=== PATIENT | female | born 1955 | race African-American/Black ===

== ENCOUNTER 2018-06-08 15:05 | Observation (INO) | payer MEDICAID ==
--- OUTSIDE RECORDS SUMMARY | 2018-06-08 15:09 | XMS REPORT ---
:1955 [facility] [address] [place] [address] Care Team Providers Name Role Phone ANDRES RITTER Unavailable Unavailable TARAPASADE, CARSON Unavailable Unavailable KOSANABEL, DORINDA Unavailable Unavailable CARLOS, PAPO Unavailable Unavailable AAMIR GEORGE Unavailable Unavailable AAMIR TAMAYO Unavailable Unavailable OBED HAGEN Unavailable Unavailable Problems This patient has no known problems. Allergies, Adverse Reactions, Alerts This patient has no known allergies or adverse reactions. Medications This patient has no known medications. Results Test Description Test Time Test Comments Text Results Atomic Results Result Comments HEP B SURFACE ANTIGEN 2017-08-25 15:58:00 Test Item Value Reference Range Comments Hep B Surface Ag (Signal 0.04 mIU/mL 0.00-1.00 HBsAg Signal Cutoff Value) (test code=HBSAG.SV) Interpretation Guide: < 1.00 Negative Specimen is presumed to be negative for HBsAg. >=1.00 and < 5.00 Reactive Specimen is reactive for HBsAg. Suggest confirmation by supplemental testing. > 5.00 Positive Specimen is positive for HBsAg. FT (test code=HBSAG) Negative (qualifier Negative value) CBC WITH AUTO [id number] 07:16:00 Test Item Value Reference Range Comments WBC (test code=WBC) 10.60 10\\S\\3/ul 4.80-10.80 RBC (test code=RBC) 3.01 10\\S\\6/ul 4.20-5.40 Hemoglobin (test code=HGB) 8.9 gm/dl 12.0-14.0 Hematocrit (test code=HCT) 27.8 % 37.0-47.0 MCV (test code=MCV) 92.4 fL 81.0-99.0 MCH (test code=MCH) 29.6 pg 27.0-31.0 MCHC (test code=MCHC) 32.0 gm/dl 33.0-37.0 RDW (test code=RDWVC) 14.5 % 11.5-14.5 Platelet (test code=PLT) 292 10\\S\\3/ul 130-400 MPV (test code=MPV) 10.2 fL 7.4-10.4 "NOT MEASURED" RESULTS ARE DISPLAYED WHEN THE INSTRUMENT HAS A SUPPRESSED OR UNREPORTABLE RESULT. THIS WILL MOST OFTEN HAPPEN WITH THE MPV WHEN THERE IS AN ABNORMAL PLATLET DISTRIBUTION DUE TO A CRITICAL LOW VALUE OR PLATELET CLUMPING. NE% (test code=NE) 75.9 % 42.0-75.0 LY% (test code=LY) 10.5 % 13.0-42.0 MO% (test code=MO) 7.2 % 4.0-14.0 EO% (test code=EO) 4.5 % 1.0-3.0 BA% (test code=BA) 0.5 % 1.0-3.0 IG% (test code=IG%) 1.4 % 0.0-0.4 [id number] 07:13:00 Test Item Value Reference Range Comments Glucose (test code=GLU) 155 mg/dl 75-110 BUN (test code=BUN) 75.0 mg/dl 6.0-17.0 Creatinine (test 4.5 mg/dl 0.4-1.2 code=CREA) Sodium (test code=NA) 140 mmol/l 137-145 Potassium (test code=K) 4.5 mmol/l 3.5-5.0 Chloride (test code=CL) 105 mmol/l 98-107 CO2 (test code=CO2) 25 mmol/l 22-30 Calcium (test code=CALC) 9.4 mg/dl 8.4-10.2 EGFR if 13 (test code=EGFRAA) mL/min/1.73m\\S\\2 EGFR if Non- 11 Estimated Glomerular Maldivian (test mL/min/1.73m\\S\\2 Filtration Rate (eGFR) code=EGFRNA) Reference Intervals Decision Points for 18 years and older and average body mass: >=60 Does not exclude kidney disease. 30 - 59 Suggests moderate chronic kidney disease and indicates the need for further investigation including assessment of proteinuria and cardiovascular factors. < 30 Usually indicates a need for referral for assessment and management of chronic kidney failure. TYPE & [id number] 15:35:00 Test Item Value Reference Range Comments ABO Blood Type (test code=ABO) A Rh (test code=RH) Negative Antibody Screen (test code=ABSCR) Negative Negative ARMBAND# (test code=ARMBAND) FF 84 337 [id number] 13:49:00 Test Item Value Reference Range Comments Glucose (test code=GLU) 264 mg/dl 75-110 BUN (test code=BUN) 74.0 mg/dl 6.0-17.0 Creatinine (test 4.7 mg/dl 0.4-1.2 code=CREA) Sodium (test code=NA) 138 mmol/l 137-145 Potassium (test code=K) 4.7 mmol/l 3.5-5.0 Chloride (test code=CL) 103 mmol/l 98-107 CO2 (test code=CO2) 22 mmol/l 22-30 Calcium (test code=CALC) 9.3 mg/dl 8.4-10.2 EGFR if 12 (test code=EGFRAA) mL/min/1.73m\\S\\2 EGFR if Non- 10 Estimated Glomerular Maldivian (test mL/min/1.73m\\S\\2 Filtration Rate (eGFR) code=EGFRNA) Reference Intervals Decision Points for 18 years and older and average body mass: >=60 Does not exclude kidney disease. 30 - 59 Suggests moderate chronic kidney disease and indicates the need for further investigation including assessment of proteinuria and cardiovascular factors. < 30 Usually indicates a need for referral for assessment and management of chronic kidney failure. er4PT AND [id number] 14:13:00 Test Item Value Reference Range Comments Protime (test code=PT) 9.8 seconds 9.0-11.9 INR (test code=INR) 1.0 0.9-1.1 INR results are intended ONLY to monitor Oral Anticoagulant therapy in stablized patients. The INR Therapeutic Range is 2.0 - 3.0 Patients with a mechanical heart, the INR Range is 2.5 - 3.5 [id number] 14:13:00 Test Item Value Reference Range Comments aPTT (test code=PTT) 28.2 seconds 23.0-33.0 CBC WITH AUTO [id number] 13:39:00 Test Item Value Reference Range Comments WBC (test code=WBC) 11.15 10\\S\\3/ul 4.80-10.80 RBC (test code=RBC) 3.47 10\\S\\6/ul 4.20-5.40 Hemoglobin (test code=HGB) 10.3 gm/dl 12.0-14.0 Hematocrit (test code=HCT) 31.8 % 37.0-47.0 MCV (test code=MCV) 91.6 fL 81.0-99.0 MCH (test code=MCH) 29.7 pg 27.0-31.0 MCHC (test code=MCHC) 32.4 gm/dl 33.0-37.0 RDW (test code=RDWVC) 14.5 % 11.5-14.5 Platelet (test code=PLT) 289 10\\S\\3/ul 130-400 MPV (test code=MPV) 10.2 fL 7.4-10.4 "NOT MEASURED" RESULTS ARE DISPLAYED WHEN THE INSTRUMENT HAS A SUPPRESSED OR UNREPORTABLE RESULT. THIS WILL MOST OFTEN HAPPEN WITH THE MPV WHEN THERE IS AN ABNORMAL PLATLET DISTRIBUTION DUE TO A CRITICAL LOW VALUE OR PLATELET CLUMPING. NE% (test code=NE) 75.5 % 42.0-75.0 LY% (test code=LY) 11.8 % 13.0-42.0 MO% (test code=MO) 7.2 % 4.0-14.0 EO% (test code=EO) 3.2 % 1.0-3.0 BA% (test code=BA) 0.6 % 1.0-3.0 IG% (test code=IG%) 1.7 % 0.0-0.4 AUTO [id number] 13:25:00 Test Item Value Reference Range Comments Glucose (test code=GLU) 226 mg/dl 75-110 BUN (test code=BUN) 71.0 mg/dl 6.0-17.0 Creatinine (test 4.6 mg/dl 0.4-1.2 code=CREA) Sodium (test code=NA) 135 mmol/l 137-145 Potassium (test code=K) 4.8 mmol/l 3.5-5.0 Chloride (test code=CL) 101 mmol/l 98-107 CO2 (test code=CO2) 25 mmol/l 22-30 Calcium (test code=CALC) 9.4 mg/dl 8.4-10.2 EGFR if 12 (test code=EGFRAA) mL/min/1.73m\\S\\2 EGFR if Non- 10 Estimated Glomerular Mal[place]ian (test mL/min/1.73m\\S\\2 Filtration Rate (eGFR) code=EGFRNA) Reference Intervals Decision Points for 18 years and older and average body mass: >=60 Does not exclude kidney disease. 30 - 59 Suggests moderate chronic kidney disease and indicates the need for further investigation including assessment of proteinuria and cardiovascular factors. < 30 Usually indicates a need for referral for assessment and management of chronic kidney failure. TYPE & [id number] 12:40:00 Test Item Value Reference Range Comments ABO Blood Type (test code=ABO) A Rh (test code=RH) Negative Antibody Screen (test code=ABSCR) Negative Negative ARMBAND# (test code=ARMBAND) FF 12 500 [id number] 06:38:00 Test Item Value Reference Range Comments Glucose (test code=GLU) 136 mg/dl 75-110 BUN (test code=BUN) 66.0 mg/dl 6.0-17.0 Creatinine (test 4.0 mg/dl 0.4-1.2 code=CREA) Sodium (test code=NA) 138 mmol/l 137-145 Potassium (test code=K) 5.4 mmol/l 3.5-5.0 Chloride (test code=CL) 101 mmol/l 98-107 CO2 (test code=CO2) 24 mmol/l 22-30 Calcium (test code=CALC) 9.3 mg/dl 8.4-10.2 T Protein (test code=TP) 6.9 gm/dl 5.1-8.7 Albumin (test code=ALB) 3.7 gm/dl 3.5-4.6 A/G Ratio (test 1.2 % 1.1-2.2 code=AGRAT) AST (SGOT) (test 21 U/L 11-36 code=AST) ALT (SGPT) (test 31 U/L 11-40 code=ALT) Alkaline Phos (test 235 U/L 47-114 code=ALKP) Total Bilirubin (test 0.5 mg/dl 0.2-1.2 code=TBIL) Globulin (test 3.2 gm/dl 2.3-3.5 code=GLOBU) Calcium, Corrected (test 9.5 mg/dl 8.4-10.2 Various formulas exist for code=CALCCORR) corrected serum calcium results, each yielding different values. This corrected result was based on the formula: Corrected Calcium=SerumCalcium + [0.8 * ( 4 - SerumAlbumin)] EGFR if 15 (test code=EGFRAA) mL/min/1.73m\\S\\2 EGFR if Non- 12 Estimated Glomerular Mal[place]ian (test mL/min/1.73m\\S\\2 Filtration Rate (eGFR) code=EGFRNA) Reference Intervals Decision Points for 18 years and older and average body mass: >=60 Does not exclude kidney disease. 30 - 59 Suggests moderate chronic kidney disease and indicates the need for further investigation including assessment of proteinuria and cardiovascular factors. < 30 Usually indicates a need for referral for assessment and management of chronic kidney failure. CBC WITH AUTO [id number] 06:35:00 Test Item Value Reference Range Comments WBC (test code=WBC) 13.40 10\\S\\3/ul 4.80-10.80 RBC (test code=RBC) 3.24 10\\S\\6/ul 4.20-5.40 Hemoglobin (test code=HGB) 9.7 gm/dl 12.0-14.0 Hematocrit (test code=HCT) 29.2 % 37.0-47.0 MCV (test code=MCV) 90.1 fL 81.0-99.0 MCH (test code=MCH) 29.9 pg 27.0-31.0 MCHC (test code=MCHC) 33.2 gm/dl 33.0-37.0 RDW (test code=RDWVC) 15.6 % 11.5-14.5 Platelet (test code=PLT) 247 10\\S\\3/ul 130-400 MPV (test code=MPV) 9.7 fL 7.4-10.4 "NOT MEASURED" RESULTS ARE DISPLAYED WHEN THE INSTRUMENT HAS A SUPPRESSED OR UNREPORTABLE RESULT. THIS WILL MOST OFTEN HAPPEN WITH THE MPV WHEN THERE IS AN ABNORMAL PLATLET DISTRIBUTION DUE TO A CRITICAL LOW VALUE OR PLATELET CLUMPING. NE% (test code=NE) 85.0 % 42.0-75.0 LY% (test code=LY) 4.9 % 13.0-42.0 MO% (test code=MO) 8.2 % 4.0-14.0 EO% (test code=EO) 1.4 % 1.0-3.0 BA% (test code=BA) 0.1 % 1.0-3.0 IG% (test code=IG%) 0.4 % 0.0-0.4 CBC AUTO [id number] 06:33:00 Test Item Value Reference Range Comments aPTT (test code=PTT) 29.4 seconds 23.0-33.0 PT AND [id number] 06:33:00 Test Item Value Reference Range Comments Protime (test code=PT) 10.1 seconds 9.0-11.9 INR (test code=INR) 1.0 0.9-1.1 INR results are intended ONLY to monitor Oral Anticoagulant therapy in stablized patients. The INR Therapeutic Range is 2.0 - 3.0 Patients with a mechanical heart, the INR Range is 2.5 - 3.5 [id number] 10:05:00 Test Item Value Reference Range Comments Glucose (test code=GLU) 320 mg/dl 75-110 BUN (test code=BUN) 63.0 mg/dl 6.0-17.0 Creatinine (test 3.3 mg/dl 0.4-1.2 code=CREA) Sodium (test code=NA) 136 mmol/l 137-145 Potassium (test code=K) 5.0 mmol/l 3.5-5.0 Chloride (test code=CL) 100 mmol/l 98-107 CO2 (test code=CO2) 25 mmol/l 22-30 Calcium (test code=CALC) 9.0 mg/dl 8.4-10.2 EGFR if 18 (test code=EGFRAA) mL/min/1.73m\\S\\2 EGFR if Non- 15 Estimated Glomerular Mal[place]ian (test mL/min/1.73m\\S\\2 Filtration Rate (eGFR) code=EGFRNA) Reference Intervals Decision Points for 18 years and older and average body mass: >=60 Does not exclude kidney disease. 30 - 59 Suggests moderate chronic kidney disease and indicates the need for further investigation including assessment of proteinuria and cardiovascular factors. < 30 Usually indicates a need for referral for assessment and management of chronic kidney failure. CBC (HEMOGRAM ONLY)2017-08-11 09:54:00 Test Item Value Reference Range Comments WBC (test code=WBC) 11.16 10\\S\\3/ul 4.80-10.80 RBC (test code=RBC) 3.26 10\\S\\6/ul 4.20-5.40 Hemoglobin (test code=HGB) 9.7 gm/dl 12.0-14.0 Hematocrit (test code=HCT) 29.0 % 37.0-47.0 MCV (test code=MCV) 89.0 fL 81.0-99.0 MCH (test code=MCH) 29.8 pg 27.0-31.0 MCHC (test code=MCHC) 33.4 gm/dl 33.0-37.0 RDW (test code=RDWVC) 15.9 % 11.5-14.5 Platelet (test code=PLT) 228 10\\S\\3/ul 130-400 MPV (test code=MPV) 9.7 fL 7.4-10.4 "NOT MEASURED" RESULTS ARE DISPLAYED WHEN THE INSTRUMENT HAS A SUPPRESSED OR UNREPORTABLE RESULT. THIS WILL MOST OFTEN HAPPEN WITH THE MPV WHEN THERE IS AN ABNORMAL PLATLET DISTRIBUTION DUE TO A CRITICAL LOW VALUE OR PLATELET CLUMPING. THIS IS A HEMOGRAM ONLYRBC, [id number] 03:00:00 Test Item Value Reference Range Comments RBC Unit (test code=RBCUNIT) Released for Transfusion RBC, [id number] 03:00:00 Test Item Value Reference Range Comments RBC Unit (test code=RBCUNIT) Released for Transfusion CROSSMATCH x 12:53:00Completed: Compatible Ready to TransfuseTYPE & amp; [id number] 12:52:00 Test Item Value Reference Range Comments ABO Blood Type (test code=ABO) A Rh (test code=RH) Negative Antibody Screen (test code=ABSCR) Negative Negative ARMBAND# (test code=ARMBAND) FF 12 500 HEP B SURFACE [id number] 07:50:00 Test Item Value Reference Range Comments Hep B Surface Ag 0.05 mIU/mL 0.00-1.00 HBsAg Signal Cutoff (Signal Value) (test Interpretation Guide: < code=HBSAG.SV) 1.00 Negative Specimen is presumed to be negative for HBsAg. >=1.00 and < 5.00 Reactive Specimen is reactive for HBsAg. Suggest confirmation by supplemental testing. > 5.00 Positive Specimen is positive for HBsAg. FT (test code=HBSAG) Negative (qualifier Negative value) CBC WITH AUTO [id number] 07:17:00 Test Item Value Reference Range Comments WBC (test code=WBC) 11.65 10\\S\\3/ul 4.80-10.80 RBC (test code=RBC) 2.54 10\\S\\6/ul 4.20-5.40 Hemoglobin (test code=HGB) 7.6 gm/dl 12.0-14.0 Hematocrit (test code=HCT) 23.6 % 37.0-47.0 MCV (test code=MCV) 92.9 fL 81.0-99.0 MCH (test code=MCH) 29.9 pg 27.0-31.0 MCHC (test code=MCHC) 32.2 gm/dl 33.0-37.0 RDW (test code=RDWVC) 16.1 % 11.5-14.5 Platelet (test code=PLT) 233 10\\S\\3/ul 130-400 MPV (test code=MPV) 9.8 fL 7.4-10.4 "NOT MEASURED" RESULTS ARE DISPLAYED WHEN THE INSTRUMENT HAS A SUPPRESSED OR UNREPORTABLE RESULT. THIS WILL MOST OFTEN HAPPEN WITH THE MPV WHEN THERE IS AN ABNORMAL PLATLET DISTRIBUTION DUE TO A CRITICAL LOW VALUE OR PLATELET CLUMPING. NE% (test code=NE) 81.9 % 42.0-75.0 LY% (test code=LY) 5.4 % 13.0-42.0 MO% (test code=MO) 9.9 % 4.0-14.0 EO% (test code=EO) 2.1 % 1.0-3.0 BA% (test code=BA) 0.3 % 1.0-3.0 IG% (test code=IG%) 0.4 % 0.0-0.4 Critical values were called to Gary DIAZ RN. K3 by [id number] on 08/10/2017 07:16 AM. Results were readback by Gary DIAZ RN., K3.[id number] 07:17:00 Test Item Value Reference Range Comments Glucose (test code=GLU) 164 mg/dl 75-110 BUN (test code=BUN) 73.0 mg/dl 6.0-17.0 Creatinine (test 3.8 mg/dl 0.4-1.2 code=CREA) Sodium (test code=NA) 137 mmol/l 137-145 Potassium (test code=K) 5.1 mmol/l 3.5-5.0 Chloride (test code=CL) 103 mmol/l 98-107 CO2 (test code=CO2) 22 mmol/l 22-30 Calcium (test code=CALC) 9.4 mg/dl 8.4-10.2 EGFR if 16 (test code=EGFRAA) mL/min/1.73m\\S\\2 EGFR if Non- 13 Estimated Glomerular Maldivian (test mL/min/1.73m\\S\\2 Filtration Rate (eGFR) code=EGFRNA) Reference Intervals Decision Points for 18 years and older and average body mass: >=60 Does not exclude kidney disease. 30 - 59 Suggests moderate chronic kidney disease and indicates the need for further investigation including assessment of proteinuria and cardiovascular factors. < 30 Usually indicates a need for referral for assessment and management of chronic kidney failure. [id number] 19:07:00 Test Item Value Reference Range Comments aPTT (test code=PTT) 29.9 seconds 23.0-33.0 PT AND [id number] 19:07:00 Test Item Value Reference Range Comments Protime (test code=PT) 10.1 seconds 9.0-11.9 INR (test code=INR) 1.0 0.9-1.1 INR results are intended ONLY to monitor Oral Anticoagulant therapy in stablized patients. The INR Therapeutic Range is 2.0 - 3.0 Patients with a mechanical heart, the INR Range is 2.5 - 3.5 [id number] 18:35:00 Test Item Value Reference Range Comments Glucose (test code=GLU) 174 mg/dl 75-110 BUN (test code=BUN) 69.0 mg/dl 6.0-17.0 Creatinine (test 3.8 mg/dl 0.4-1.2 code=CREA) Sodium (test code=NA) 138 mmol/l 137-145 Potassium (test code=K) 5.1 mmol/l 3.5-5.0 Chloride (test code=CL) 101 mmol/l 98-107 CO2 (test code=CO2) 24 mmol/l 22-30 Calcium (test code=CALC) 9.6 mg/dl 8.4-10.2 T Protein (test code=TP) 7.1 gm/dl 5.1-8.7 Albumin (test code=ALB) 3.7 gm/dl 3.5-4.6 A/G Ratio (test 1.1 % 1.1-2.2 code=AGRAT) AST (SGOT) (test 28 U/L 11-36 code=AST) ALT (SGPT) (test 40 U/L 11-40 code=ALT) Alkaline Phos (test 171 U/L 47-114 code=ALKP) Total Bilirubin (test 0.5 mg/dl 0.2-1.2 code=TBIL) Globulin (test 3.4 gm/dl 2.3-3.5 code=GLOBU) Calcium, Corrected (test 9.8 mg/dl 8.4-10.2 Various formulas exist for code=CALCCORR) corrected serum calcium results, each yielding different values. This corrected result was based on the formula: Corrected Calcium=SerumCalcium + [0.8 * ( 4 - SerumAlbumin)] EGFR if 16 (test code=EGFRAA) mL/min/1.73m\\S\\2 EGFR if Non- 13 Estimated Glomerular [place]ian (test mL/min/1.73m\\S\\2 Filtration Rate (eGFR) code=EGFRNA) Reference Intervals Decision Points for 18 years and older and average body mass: >=60 Does not exclude kidney disease. 30 - 59 Suggests moderate chronic kidney disease and indicates the need for further investigation including assessment of proteinuria and cardiovascular factors. < 30 Usually indicates a need for referral for assessment and management of chronic kidney failure. CBC WITH AUTO [id number] 18:19:00 Test Item Value Reference Range Comments WBC (test code=WBC) 13.41 10\\S\\3/ul 4.80-10.80 RBC (test code=RBC) 2.91 10\\S\\6/ul 4.20-5.40 Hemoglobin (test code=HGB) 8.7 gm/dl 12.0-14.0 Hematocrit (test code=HCT) 26.8 % 37.0-47.0 MCV (test code=MCV) 92.1 fL 81.0-99.0 MCH (test code=MCH) 29.9 pg 27.0-31.0 MCHC (test code=MCHC) 32.5 gm/dl 33.0-37.0 RDW (test code=RDWVC) 16.3 % 11.5-14.5 Platelet (test code=PLT) 273 10\\S\\3/ul 130-400 MPV (test code=MPV) 10.0 fL 7.4-10.4 "NOT MEASURED" RESULTS ARE DISPLAYED WHEN THE INSTRUMENT HAS A SUPPRESSED OR UNREPORTABLE RESULT. THIS WILL MOST OFTEN HAPPEN WITH THE MPV WHEN THERE IS AN ABNORMAL PLATLET DISTRIBUTION DUE TO A CRITICAL LOW VALUE OR PLATELET CLUMPING. NE% (test code=NE) 80.8 % 42.0-75.0 LY% (test code=LY) 7.5 % 13.0-42.0 MO% (test code=MO) 8.9 % 4.0-14.0 EO% (test code=EO) 2.0 % 1.0-3.0 BA% (test code=BA) 0.4 % 1.0-3.0 IG% (test code=IG%) 0.4 % 0.0-0.4 AUTO [id number] 17:15:00 Test Item Value Reference Range Comments pH (ABG) (test code=BGPH) 7.365 7.350-7.450 pCO2(T) (test code=BGPCO2(T)) 43.2 mm Hg 35.0-45.0 pO2(T) (test code=BGPO2(T)) 75.2 mm Hg 80.0-100.0 sO2 (test code=BGSO2) 97.6 % 90.0-99.0 Na+ (test code=BGCNA+) 134.5 mmol/l 135.0-148.0 K+ (test code=BGCK+) 4.79 mmol/l 3.50-4.50 Ca2+ (test code=BGCCA2+) 1.240 mmol/l 1.120-1.320 Cl- (test code=BGCCL-) 98 mmol/l 98-107 tHb (test code=BGCTHB) 8.3 gm/dl 11.5-17.4 O2Hb (test code=WCJO4BP) 94.9 % 95.0-99.0 COHb (test code=BGFCOHB) <2.8 % 0.5-2.5 MetHB (test code=BGMETHB) <1.3 % 0.4-1.5 Gluc (test code=BGCGLU) 235.0 mg/dl 60.0-110.0 Lac (test code=BGCLAC) <1.6 mmol/l 1.0-1.7 Barometric Pressure (test code=BGBARO) 760.0 mm Hg 450.0-1000.0 BE(act) (test code=BGBEACT) -1 mmol/l HCO3 (test code=BGHCO3) 23 meq/L 22-26 ctCO2(B) (test code=BGCTCO2(B)) 23 mmol/l FIO2 (fO2(I) (test code=BGFIO2) 0.21 % Drawn By (test code=BGDRAWNBY) ROSALINO HUFF Collection Date (test code=BGDTCOL) 08/09/2017 Collection Time (test code=BGCTM) 15:59 Sample Site (test code=BGSAMPLESITE) R Radial Sample Type (test code=BGSAMPLETYPE) Arterial Allens Test (test code=BGALLEN) Acceptable Notified By (test code=BGNOTIFIEDBY) ROSALINO HUFF Notified Whom (test code=BGNOTIFIEDWHOM) DR COREAS Date Notified (test code=BGDTNOTIFIED) 08/09/2017 Time Notified (test code=BGTMNOTIFIED) 15:59 O2 Device (test code=KMM2UUH9) Room Air Instrument ID (test code=BGINSTRID) [id number] Reported By (test code=BGREPORTEDBY) ROSALINO HUFF [id number] 09:50:00 Test Item Value Reference Range Comments Glucose (test code=GLU) 264 mg/dl 75-110 BUN (test code=BUN) 58.0 mg/dl 6.0-17.0 Creatinine (test 3.5 mg/dl 0.4-1.2 code=CREA) Sodium (test code=NA) 137 mmol/l 137-145 Potassium (test code=K) 5.1 mmol/l 3.5-5.0 Chloride (test code=CL) 100 mmol/l 98-107 CO2 (test code=CO2) 25 mmol/l 22-30 Calcium (test code=CALC) 9.3 mg/dl 8.4-10.2 EGFR if 17 (test code=EGFRAA) mL/min/1.73m\\S\\2 EGFR if Non- 14 Estimated Glomerular Maldivian (test mL/min/1.73m\\S\\2 Filtration Rate (eGFR) code=EGFRNA) Reference Intervals Decision Points for 18 years and older and average body mass: >=60 Does not exclude kidney disease. 30 - 59 Suggests moderate chronic kidney disease and indicates the need for further investigation including assessment of proteinuria and cardiovascular factors. < 30 Usually indicates a need for referral for assessment and management of chronic kidney failure. CBC (HEMOGRAM ONLY)2017-08-07 09:41:00 Test Item Value Reference Range Comments WBC (test code=WBC) 9.06 10\\S\\3/ul 4.80-10.80 RBC (test code=RBC) 2.69 10\\S\\6/ul 4.20-5.40 Hemoglobin (test code=HGB) 7.9 gm/dl 12.0-14.0 Hematocrit (test code=HCT) 24.4 % 37.0-47.0 MCV (test code=MCV) 90.7 fL 81.0-99.0 MCH (test code=MCH) 29.4 pg 27.0-31.0 MCHC (test code=MCHC) 32.4 gm/dl 33.0-37.0 RDW (test code=RDWVC) 16.7 % 11.5-14.5 Platelet (test code=PLT) 230 10\\S\\3/ul 130-400 MPV (test code=MPV) 9.6 fL 7.4-10.4 "NOT MEASURED" RESULTS ARE DISPLAYED WHEN THE INSTRUMENT HAS A SUPPRESSED OR UNREPORTABLE RESULT. THIS WILL MOST OFTEN HAPPEN WITH THE MPV WHEN THERE IS AN ABNORMAL PLATLET DISTRIBUTION DUE TO A CRITICAL LOW VALUE OR PLATELET CLUMPING. Critical values were called to Tracy AGARWAL by [id number] on 08/07/2017 09:41 AM. 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 ISOLATED-- RECOMMEND ISOLATION PROTOCOL Ciprofloxacin >=8 R Clindamycin >=4 R Erythromycin >=8 R Gentamicin <=0.5 S Levofloxacin >=8 R Linezolid 2 S Moxifloxacin >=8 R Oxacillin >=4 R Rifampicin <=0.5 S Tetracycline 2 S Tigecycline 0.25 S Trimeth/Sulfa <=10 S Vancomycin <=0.5 S Cefoxitin Sc (+/-) Positive + D Test (+/-) Negative - Isolate ( Final) (Final) Corynebacterium striatum Result before changed by [id number] on 09:58: Culture Result (Prelim) (Prelim) Many DiptheroidsCULTURE, [id number] 06:50:00To start 15mins after 1st cultureSpecimen: BloodCollected: 07/24/2017 00:38 Status: Final Last Updated: 07/29/2017 06: 49 (1) To start 15mins after 1st culture Culture Result (Final) (Final ) No Growth After 5 DaysCULTURE, [id number] 06:50:00Specimen: BloodCollected: 07/24/2017 00:18 Status: Final Last Updated: 07/29/2017 06: 49 Culture Result (Final) (Final) No Growth After 5 DaysED RAPID [id number] 04:24:00 Test Item Value Reference Range Comments CKMB (BIOSITE) (test code=BIOCKMB) <1.0 ng/ml 0.0-2.5 TROPONIN-I (BIOSITE) (test code=BIOTROP) <0.050 ng/ml 0.000-0.050 MYOGLOBIN (BIOSITE) (test code=BIOMYO) 166.0 ng/ml 0.0-170.0 SERIAL INSTRUMENT NUMBER (test code=SERIAL) [id number] ED RAPID [id number] 01:05:00 Test Item Value Reference Range Comments CKMB (BIOSITE) (test code=BIOCKMB) <1.0 ng/ml 0.0-2.5 TROPONIN-I (BIOSITE) (test code=BIOTROP) <0.050 ng/ml 0.000-0.050 MYOGLOBIN (BIOSITE) (test code=BIOMYO) 203.0 ng/ml 0.0-170.0 SERIAL INSTRUMENT NUMBER (test code=SERIAL) [id number] 01:02:00 Test Item Value Reference Range Comments Glucose (test code=GLU) 137 mg/dl 75-110 BUN (test code=BUN) 54.0 mg/dl 6.0-17.0 Creatinine (test 3.2 mg/dl 0.4-1.2 code=CREA) Sodium (test code=NA) 138 mmol/l 137-145 Potassium (test code=K) 4.5 mmol/l 3.5-5.0 Chloride (test code=CL) 96 mmol/l 98-107 CO2 (test code=CO2) 28 mmol/l 22-30 Calcium (test code=CALC) 10.4 mg/dl 8.4-10.2 T Protein (test code=TP) 8.9 gm/dl 5.1-8.7 Albumin (test code=ALB) 5.0 gm/dl 3.5-4.6 A/G Ratio (test 1.3 % 1.1-2.2 code=AGRAT) AST (SGOT) (test 23 U/L 11-36 code=AST) ALT (SGPT) (test 28 U/L 11-40 code=ALT) Alkaline Phos (test 258 U/L 47-114 code=ALKP) Total Bilirubin (test 1.2 mg/dl 0.2-1.2 code=TBIL) Globulin (test 3.9 gm/dl 2.3-3.5 code=GLOBU) Calcium, Corrected (test 9.6 mg/dl 8.4-10.2 Various formulas exist for code=CALCCORR) corrected serum calcium results, each yielding different values. This corrected result was based on the formula: Corrected Calcium=SerumCalcium + [0.8 * ( 4 - SerumAlbumin)] EGFR if 19 (test code=EGFRAA) mL/min/1.73m\\S\\2 EGFR if Non- 16 Estimated Glomerular [place] (test mL/min/1.73m\\S\\2 Filtration Rate (eGFR) code=EGFRNA) Reference Intervals Decision Points for 18 years and older and average body mass: >=60 Does not exclude kidney disease. 30 - 59 Suggests moderate chronic kidney disease and indicates the need for further investigation including assessment of proteinuria and cardiovascular factors. < 30 Usually indicates a need for referral for assessment and management of chronic kidney failure. ER 8CBC WITH AUTO [id number] 00:58:00 Test Item Value Reference Range Comments WBC (test code=WBC) 12.96 10\\S\\3/ul 4.80-10.80 RBC (test code=RBC) 3.73 10\\S\\6/ul 4.20-5.40 Hemoglobin (test code=HGB) 10.9 gm/dl 12.0-14.0 Hematocrit (test code=HCT) 33.3 % 37.0-47.0 MCV (test code=MCV) 89.3 fL 81.0-99.0 MCH (test code=MCH) 29.2 pg 27.0-31.0 MCHC (test code=MCHC) 32.7 gm/dl 33.0-37.0 RDW (test code=RDWVC) 17.7 % 11.5-14.5 Platelet (test code=PLT) 190 10\\S\\3/ul 130-400 MPV (test code=MPV) 10.3 fL 7.4-10.4 "NOT MEASURED" RESULTS ARE DISPLAYED WHEN THE INSTRUMENT HAS A SUPPRESSED OR UNREPORTABLE RESULT. THIS WILL MOST OFTEN HAPPEN WITH THE MPV WHEN THERE IS AN ABNORMAL PLATLET DISTRIBUTION DUE TO A CRITICAL LOW VALUE OR PLATELET CLUMPING. NE% (test code=NE) 84.3 % 42.0-75.0 LY% (test code=LY) 7.8 % 13.0-42.0 MO% (test code=MO) 6.5 % 4.0-14.0 EO% (test code=EO) 0.5 % 1.0-3.0 BA% (test code=BA) 0.4 % 1.0-3.0 IG% (test code=IG%) 0.5 % 0.0-0.4 [id number] 13:31:00 Test Item Value Reference Range Comments Glucose (test code=GLU) 174 mg/dl 75-110 BUN (test code=BUN) 91.0 mg/dl 6.0-17.0 Creatinine (test 4.2 mg/dl 0.4-1.2 code=CREA) Sodium (test code=NA) 139 mmol/l 137-145 Potassium (test code=K) 4.9 mmol/l 3.5-5.0 Chloride (test code=CL) 98 mmol/l 98-107 CO2 (test code=CO2) 26 mmol/l 22-30 Calcium (test code=CALC) 10.1 mg/dl 8.4-10.2 T Protein (test code=TP) 7.1 gm/dl 5.1-8.7 Albumin (test code=ALB) 4.1 gm/dl 3.5-4.6 A/G Ratio (test 1.4 % 1.1-2.2 code=AGRAT) AST (SGOT) (test 22 U/L 11-36 code=AST) ALT (SGPT) (test 32 U/L 11-40 code=ALT) Alkaline Phos (test 202 U/L 47-114 code=ALKP) Total Bilirubin (test 0.9 mg/dl 0.2-1.2 code=TBIL) Globulin (test 3.0 gm/dl 2.3-3.5 code=GLOBU) Calcium, Corrected (test 10.0 mg/dl 8.4-10.2 Various formulas exist for code=CALCCORR) corrected serum calcium results, each yielding different values. This corrected result was based on the formula: Corrected Calcium=SerumCalcium + [0.8 * ( 4 - SerumAlbumin)] EGFR if 14 (test code=EGFRAA) mL/min/1.73m\\S\\2 EGFR if Non- 11 Estimated Glomerular Maldivian (test mL/min/1.73m\\S\\2 Filtration Rate (eGFR) code=EGFRNA) Reference Intervals Decision Points for 18 years and older and average body mass: >=60 Does not exclude kidney disease. 30 - 59 Suggests moderate chronic kidney disease and indicates the need for further investigation including assessment of proteinuria and cardiovascular factors. < 30 Usually indicates a need for referral for assessment and management of chronic kidney failure. CBC WITH AUTO [id number] 13:08:00 Test Item Value Reference Range Comments WBC (test code=WBC) 12.31 10\\S\\3/ul 4.80-10.80 RBC (test code=RBC) 3.08 10\\S\\6/ul 4.20-5.40 Hemoglobin (test code=HGB) 9.0 gm/dl 12.0-14.0 Hematocrit (test code=HCT) 28.0 % 37.0-47.0 MCV (test code=MCV) 90.9 fL 81.0-99.0 MCH (test code=MCH) 29.2 pg 27.0-31.0 MCHC (test code=MCHC) 32.1 gm/dl 33.0-37.0 RDW (test code=RDWVC) 17.8 % 11.5-14.5 Platelet (test code=PLT) 197 10\\S\\3/ul 130-400 MPV (test code=MPV) 10.8 fL 7.4-10.4 "NOT MEASURED" RESULTS ARE DISPLAYED WHEN THE INSTRUMENT HAS A SUPPRESSED OR UNREPORTABLE RESULT. THIS WILL MOST OFTEN HAPPEN WITH THE MPV WHEN THERE IS AN ABNORMAL PLATLET DISTRIBUTION DUE TO A CRITICAL LOW VALUE OR PLATELET CLUMPING. NE% (test code=NE) 84.7 % 42.0-75.0 LY% (test code=LY) 7.8 % 13.0-42.0 MO% (test code=MO) 6.3 % 4.0-14.0 EO% (test code=EO) 0.4 % 1.0-3.0 BA% (test code=BA) 0.3 % 1.0-3.0 IG% (test code=IG%) 0.5 % 0.0-0.4 NRBC, Auto (test 0 /100WBC 0-2 code=NRBC_AUTO) HEP B SURFACE [id number] 15:00:00 Test Item Value Reference Range Comments FT (test code=HBSAB) Negative (qualifier Negative value) Hep B Surface Ab 0.00 mIU/mL 0.00-4.99 aHBs Signal Cutoff (Signal Value) (test Interpretation Guide: < code=HBSAB.SV) 5.00 mIU/mL Negative Patient is considered to be not immuned to infection with HBV. >=5.00 and 12.0 mIU/mL Indeterminate Unable to determine if anti-HBs is present at levels consistent with immunity. Patient's immune status should be further assessed by considering other clinical information or retesting another specimen drawn at a later time. > 12.0 mIU/mL Positive Anti-HBs detected at > 10 mIU/ml. Patient is considered to be immune to infection with HBV. It has not been determined what the clinical significance is for values greater than >=12 mIU/mL, other than the individual is considered to be immuned to HBV infection. HEPATITIS B CORE AB, [id number] 10:03:00 Test Item Value Reference Range Comments HEPATITIS B CORE AB TOTAL (test code=HEPBCORE) 2.97 Negative [id number] 09:16:00 Test Item Value Reference Range Comments Glucose (test code=GLU) 238 mg/dl 75-110 BUN (test code=BUN) 71.0 mg/dl 6.0-17.0 Creatinine (test 3.7 mg/dl 0.4-1.2 code=CREA) Sodium (test code=NA) 142 mmol/l 137-145 Potassium (test code=K) 4.7 mmol/l 3.5-5.0 Chloride (test code=CL) 102 mmol/l 98-107 CO2 (test code=CO2) 25 mmol/l 22-30 Calcium (test code=CALC) 10.6 mg/dl 8.4-10.2 T Protein (test code=TP) 8.5 gm/dl 5.1-8.7 Albumin (test code=ALB) 4.8 gm/dl 3.5-4.6 A/G Ratio (test 1.3 % 1.1-2.2 code=AGRAT) AST (SGOT) (test 30 U/L 11-36 code=AST) ALT (SGPT) (test 37 U/L 11-40 code=ALT) Alkaline Phos (test 285 U/L 47-114 code=ALKP) Total Bilirubin (test 1.2 mg/dl 0.2-1.2 code=TBIL) Globulin (test 3.7 gm/dl 2.3-3.5 code=GLOBU) Calcium, Corrected (test 10.0 mg/dl 8.4-10.2 Various formulas exist for code=CALCCORR) corrected serum calcium results, each yielding different values. This corrected result was based on the formula: Corrected Calcium=SerumCalcium + [0.8 * ( 4 - SerumAlbumin)] EGFR if 16 (test code=EGFRAA) mL/min/1.73m\\S\\2 EGFR if Non- 13 Estimated Glomerular Maldivian (test mL/min/1.73m\\S\\2 Filtration Rate (eGFR) code=EGFRNA) Reference Intervals Decision Points for 18 years and older and average body mass: >=60 Does not exclude kidney disease. 30 - 59 Suggests moderate chronic kidney disease and indicates the need for further investigation including assessment of proteinuria and cardiovascular factors. < 30 Usually indicates a need for referral for assessment and management of chronic kidney failure. ERYTHROCYTE SED [id number] 09:16:00 Test Item Value Reference Range Comments Sed Rate (test code=ESR) 43 mm/hr 0-35 EFFECTIVE 02-27-2014, THE METHODOLOGY USED FOR ERYTHROCYTE SEDIMENTATION RATE HAS CHANGED. THE NORMAL RANGES HAVE CHANGED. PLEASE NOTE THAT RANGES ARE DEFINED BY THE AGE OF THE PATIENT. NEW REFERENCE RANGES: Females 0-49 years old=0-25 mm/hr Females 50-999 years old=0-35 mm/hr Males 0-49 years old=0-20 mm/hr Males 50-999 years old=0-25 mm/hr CBC WITH AUTO [id number] 08:46:00 Test Item Value Reference Range Comments WBC (test code=WBC) 13.45 10\\S\\3/ul 4.80-10.80 RBC (test code=RBC) 3.48 10\\S\\6/ul 4.20-5.40 Hemoglobin (test code=HGB) 10.2 gm/dl 12.0-14.0 Hematocrit (test code=HCT) 30.8 % 37.0-47.0 MCV (test code=MCV) 88.5 fL 81.0-99.0 MCH (test code=MCH) 29.3 pg 27.0-31.0 MCHC (test code=MCHC) 33.1 gm/dl 33.0-37.0 RDW (test code=RDWVC) 17.9 % 11.5-14.5 Platelet (test code=PLT) 186 10\\S\\3/ul 130-400 MPV (test code=MPV) 11.2 fL 7.4-10.4 "NOT MEASURED" RESULTS ARE DISPLAYED WHEN THE INSTRUMENT HAS A SUPPRESSED OR UNREPORTABLE RESULT. THIS WILL MOST OFTEN HAPPEN WITH THE MPV WHEN THERE IS AN ABNORMAL PLATLET DISTRIBUTION DUE TO A CRITICAL LOW VALUE OR PLATELET CLUMPING. NE% (test code=NE) 88.9 % 42.0-75.0 LY% (test code=LY) 5.1 % 13.0-42.0 MO% (test code=MO) 5.1 % 4.0-14.0 EO% (test code=EO) 0.0 % 1.0-3.0 BA% (test code=BA) 0.2 % 1.0-3.0 IG% (test code=IG%) 0.7 % 0.0-0.4 LIPASE, [id number] 18:05:00 Test Item Value Reference Range Comments Lipase (test code=LIPA) 42 U/L 8-223 AMYLASE, [id number] 18:05:00 Test Item Value Reference Range Comments Amylase (test code=AMYL) 53 U/L 12-103 C-REACTIVE [id number] 17:24:00 Test Item Value Reference Range Comments C REACTIVE PROTEIN (test code=CRP) 0.7 ng/ml 0.0-0.9 [id number] 09:07:00 Test Item Value Reference Range Comments Glucose (test code=GLU) 160 mg/dl 75-110 BUN (test code=BUN) 75.0 mg/dl 6.0-17.0 Creatinine (test 4.6 mg/dl 0.4-1.2 code=CREA) Sodium (test code=NA) 140 mmol/l 137-145 Potassium (test code=K) 4.3 mmol/l 3.5-5.0 Chloride (test code=CL) 101 mmol/l 98-107 CO2 (test code=CO2) 25 mmol/l 22-30 Calcium (test code=CALC) 9.9 mg/dl 8.4-10.2 T Protein (test code=TP) 7.5 gm/dl 5.1-8.7 Albumin (test code=ALB) 4.2 gm/dl 3.5-4.6 A/G Ratio (test 1.3 % 1.1-2.2 code=AGRAT) AST (SGOT) (test 34 U/L 11-36 code=AST) ALT (SGPT) (test 34 U/L 11-40 code=ALT) Alkaline Phos (test 242 U/L 47-114 code=ALKP) Total Bilirubin (test 0.8 mg/dl 0.2-1.2 code=TBIL) Globulin (test 3.3 gm/dl 2.3-3.5 code=GLOBU) Calcium, Corrected (test 9.7 mg/dl 8.4-10.2 Various formulas exist for code=CALCCORR) corrected serum calcium results, each yielding different values. This corrected result was based on the formula: Corrected Calcium=SerumCalcium + [0.8 * ( 4 - SerumAlbumin)] EGFR if 12 (test code=EGFRAA) mL/min/1.73m\\S\\2 EGFR if Non- 10 Estimated Glomerular Maldivian (test mL/min/1.73m\\S\\2 Filtration Rate (eGFR) code=EGFRNA) Reference Intervals Decision Points for 18 years and older and average body mass: >=60 Does not exclude kidney disease. 30 - 59 Suggests moderate chronic kidney disease and indicates the need for further investigation including assessment of proteinuria and cardiovascular factors. < 30 Usually indicates a need for referral for assessment and management of chronic kidney failure. CBC WITH AUTO [id number] 08:35:00 Test Item Value Reference Range Comments WBC (test code=WBC) 10.56 10\\S\\3/ul 4.80-10.80 RBC (test code=RBC) 3.27 10\\S\\6/ul 4.20-5.40 Hemoglobin (test code=HGB) 9.6 gm/dl 12.0-14.0 Hematocrit (test code=HCT) 29.8 % 37.0-47.0 MCV (test code=MCV) 91.1 fL 81.0-99.0 MCH (test code=MCH) 29.4 pg 27.0-31.0 MCHC (test code=MCHC) 32.2 gm/dl 33.0-37.0 RDW (test code=RDWVC) 17.1 % 11.5-14.5 Platelet (test code=PLT) 219 10\\S\\3/ul 130-400 MPV (test code=MPV) 10.4 fL 7.4-10.4 "NOT MEASURED" RESULTS ARE DISPLAYED WHEN THE INSTRUMENT HAS A SUPPRESSED OR UNREPORTABLE RESULT. THIS WILL MOST OFTEN HAPPEN WITH THE MPV WHEN THERE IS AN ABNORMAL PLATLET DISTRIBUTION DUE TO A CRITICAL LOW VALUE OR PLATELET CLUMPING. NE% (test code=NE) 76.1 % 42.0-75.0 LY% (test code=LY) 10.4 % 13.0-42.0 MO% (test code=MO) 8.4 % 4.0-14.0 EO% (test code=EO) 4.2 % 1.0-3.0 BA% (test code=BA) 0.5 % 1.0-3.0 IG% (test code=IG%) 0.4 % 0.0-0.4 CBC AUTO diffCBC WITH AUTO [id number] 05:58:00 Test Item Value Reference Range Comments WBC (test code=WBC) 9.92 10\\S\\3/ul 4.80-10.80 RBC (test code=RBC) 3.48 10\\S\\6/ul 4.20-5.40 Hemoglobin (test code=HGB) 10.1 gm/dl 12.0-14.0 Hematocrit (test code=HCT) 31.1 % 37.0-47.0 MCV (test code=MCV) 89.4 fL 81.0-99.0 MCH (test code=MCH) 29.0 pg 27.0-31.0 MCHC (test code=MCHC) 32.5 gm/dl 33.0-37.0 RDW (test code=RDWVC) 16.8 % 11.5-14.5 Platelet (test code=PLT) 243 10\\S\\3/ul 130-400 MPV (test code=MPV) 11.1 fL 7.4-10.4 "NOT MEASURED" RESULTS ARE DISPLAYED WHEN THE INSTRUMENT HAS A SUPPRESSED OR UNREPORTABLE RESULT. THIS WILL MOST OFTEN HAPPEN WITH THE MPV WHEN THERE IS AN ABNORMAL PLATLET DISTRIBUTION DUE TO A CRITICAL LOW VALUE OR PLATELET CLUMPING. NE% (test code=NE) 71.8 % 42.0-75.0 LY% (test code=LY) 13.8 % 13.0-42.0 MO% (test code=MO) 9.1 % 4.0-14.0 EO% (test code=EO) 3.7 % 1.0-3.0 BA% (test code=BA) 0.8 % 1.0-3.0 IG% (test code=IG%) 0.8 % 0.0-0.4 [id number] 05:41:00 Test Item Value Reference Range Comments Glucose (test code=GLU) 97 mg/dl 75-110 BUN (test code=BUN) 59.0 mg/dl 6.0-17.0 Creatinine (test 4.0 mg/dl 0.4-1.2 code=CREA) Sodium (test code=NA) 142 mmol/l 137-145 Potassium (test code=K) 4.2 mmol/l 3.5-5.0 Chloride (test code=CL) 101 mmol/l 98-107 CO2 (test code=CO2) 25 mmol/l 22-30 Calcium (test code=CALC) 10.0 mg/dl 8.4-10.2 T Protein (test code=TP) 8.1 gm/dl 5.1-8.7 Albumin (test code=ALB) 4.4 gm/dl 3.5-4.6 A/G Ratio (test 1.2 % 1.1-2.2 code=AGRAT) AST (SGOT) (test 34 U/L 11-36 code=AST) ALT (SGPT) (test 38 U/L 11-40 code=ALT) Alkaline Phos (test 254 U/L 47-114 code=ALKP) Total Bilirubin (test 0.8 mg/dl 0.2-1.2 code=TBIL) Globulin (test 3.7 gm/dl 2.3-3.5 code=GLOBU) Calcium, Corrected (test 9.7 mg/dl 8.4-10.2 Various formulas exist for code=CALCCORR) corrected serum calcium results, each yielding different values. This corrected result was based on the formula: Corrected Calcium=SerumCalcium + [0.8 * ( 4 - SerumAlbumin)] EGFR if 15 (test code=EGFRAA) mL/min/1.73m\\S\\2 EGFR if Non- 12 Estimated Glomerular Maldivian (test mL/min/1.73m\\S\\2 Filtration Rate (eGFR) code=EGFRNA) Reference Intervals Decision Points for 18 years and older and average body mass: >=60 Does not exclude kidney disease. 30 - 59 Suggests moderate chronic kidney disease and indicates the need for further investigation including assessment of proteinuria and cardiovascular factors. < 30 Usually indicates a need for referral for assessment and management of chronic kidney failure. [id number] 05:41:00 Test Item Value Reference Range Comments Magnesium (test code=MG) 2.0 mg/dl 1.6-2.3 HEP B SURFACE [id number] 08:16:00 Test Item Value Reference Range Comments Hep B Surface Ag 0.05 mIU/mL 0.00-1.00 HBsAg Signal Cutoff (Signal Value) (test Interpretation Guide: < code=HBSAG.SV) 1.00 Negative Specimen is presumed to be negative for HBsAg. >=1.00 and < 5.00 Reactive Specimen is reactive for HBsAg. Suggest confirmation by supplemental testing. > 5.00 Positive Specimen is positive for HBsAg. FT (test code=HBSAG) Negative (qualifier Negative value) GLYCOSALATED [id number] 01:37:00 Test Item Value Reference Range Comments Hemoglobin A1C (test 5.91 % 4.3-6.0 code=GLYCO) Mean Plasma Glucose (test 133 mg/dl 90-180 WHEN TEST RESULTS FOR A1C code=MPG) EXCEED 14.0, THE LINEAR LIMIT OF THE INSTRUMENT, THE CALCULATED RESULT FOR THE MEAN GLUCOSE IS NOT RELIABLE. TSH (Ultra Sensitive)2017-07-24 01:29:00 Test Item Value Reference Range Comments TSH (test code=TSH) 2.17 mIU/L 0.47-4.68 PRO-BNP(B-Type Natriuretic Peptide)2017-07-24 01:21:00 Test Item Value Reference Range Comments Pro-BNP(B-Peptide) (test 2550 pg/ml 0-125 THE METHODOLOGY FOR DETECTION OF code=PROBNP) B-NATRIURETIC PEPTIDE HAS BEEN CHANGED TO "NT pro-BNP". THE NORMAL RANGES HAVE CHANGED. PLEASE NOTE THAT RANGES ARE DEFINED BY THE AGE OF THE PATIENT. (<75 years old=0-125 pg/ml 75years and older=0-450pg/ml). VALUES ARE NOT INTERCHANGEABLE BETWEEN METHODS. 12-06-2006 FREE [id number] 01:14:00 Test Item Value Reference Range Comments Free T4 (test code=FT4) 1.24 ng/dl 0.78-2.19 CORONARY [id number] 00:54:00 Test Item Value Reference Range Comments Triglycerides (test 145 mg/dl 0-149 Trig. Interpretation Guide: code=TRIG) Normal: < 150 mg/dl Borderline High: 150 - 199 mg/dl High: 200 - 499 mg/dl Very High: >=500 mg/dl Cholesterol (test code=CHOL) 173 mg/dl 0-198 HDL (test code=HDL) 76 mg/dl 35-86 dLDL (test code=DILDL) 63 mg/dl 0-99 Direct LDL Intrepretations: Optimal: <100 mg/dl Suspect: 100 - 129 mg/dl Borderline: 130 - 159 mg/dl High: 160 - 189 mg/dl Very High: >190 mg/dl Risk Factor (test code=RFACT) 2.3 0.0-4.4 Risk Factor Men Women Risk Factor 3.4 3.3 1/2 Average 5.0 4.4 Average 9.6 7.1 2X Average 24.0 11.0 3X Average vLDL (test code=VLDL) 29 mg/dl 20-50 [id number] 00:52:00 Test Item Value Reference Range Comments Magnesium (test code=MG) 2.0 mg/dl 1.6-2.3 [id number] 00:52:00 Test Item Value Reference Range Comments Glucose (test code=GLU) 108 mg/dl 75-110 BUN (test code=BUN) 41.0 mg/dl 6.0-17.0 Creatinine (test 3.0 mg/dl 0.4-1.2 code=CREA) Sodium (test code=NA) 140 mmol/l 137-145 Potassium (test code=K) 4.4 mmol/l 3.5-5.0 Chloride (test code=CL) 101 mmol/l 98-107 CO2 (test code=CO2) 26 mmol/l 22-30 Calcium (test code=CALC) 10.0 mg/dl 8.4-10.2 T Protein (test code=TP) 8.7 gm/dl 5.1-8.7 Albumin (test code=ALB) 4.8 gm/dl 3.5-4.6 A/G Ratio (test 1.2 % 1.1-2.2 code=AGRAT) AST (SGOT) (test 23 U/L 11-36 code=AST) ALT (SGPT) (test 35 U/L 11-40 code=ALT) Alkaline Phos (test 298 U/L 47-114 code=ALKP) Total Bilirubin (test 1.0 mg/dl 0.2-1.2 code=TBIL) Globulin (test 3.9 gm/dl 2.3-3.5 code=GLOBU) Calcium, Corrected (test 9.4 mg/dl 8.4-10.2 Various formulas exist for code=CALCCORR) corrected serum calcium results, each yielding different values. This corrected result was based on the formula: Corrected Calcium=SerumCalcium + [0.8 * ( 4 - SerumAlbumin)] EGFR if 20 (test code=EGFRAA) mL/min/1.73m\\S\\2 EGFR if Non- 17 Estimated Glomerular Maldivian (test mL/min/1.73m\\S\\2 Filtration Rate (eGFR) code=EGFRNA) Reference Intervals Decision Points for 18 years and older and average body mass: >=60 Does not exclude kidney disease. 30 - 59 Suggests moderate chronic kidney disease and indicates the need for further investigation including assessment of proteinuria and cardiovascular factors. < 30 Usually indicates a need for referral for assessment and management of chronic kidney failure. CBC (HEMOGRAM ONLY)2017-07-24 00:49:00 Test Item Value Reference Range Comments WBC (test code=WBC) 8.60 10\\S\\3/ul 4.80-10.80 RBC (test code=RBC) 3.67 10\\S\\6/ul 4.20-5.40 Hemoglobin (test code=HGB) 10.5 gm/dl 12.0-14.0 Hematocrit (test code=HCT) 33.1 % 37.0-47.0 MCV (test code=MCV) 90.2 fL 81.0-99.0 MCH (test code=MCH) 28.6 pg 27.0-31.0 MCHC (test code=MCHC) 31.7 gm/dl 33.0-37.0 RDW (test code=RDWVC) 16.8 % 11.5-14.5 Platelet (test code=PLT) 242 10\\S\\3/ul 130-400 MPV (test code=MPV) 10.8 fL 7.4-10.4 "NOT MEASURED" RESULTS ARE DISPLAYED WHEN THE INSTRUMENT HAS A SUPPRESSED OR UNREPORTABLE RESULT. THIS WILL MOST OFTEN HAPPEN WITH THE MPV WHEN THERE IS AN ABNORMAL PLATLET DISTRIBUTION DUE TO A CRITICAL LOW VALUE OR PLATELET CLUMPING. THIS IS A HEMOGRAM ONLY
--- NOTE | 2018-06-08 15:32 | EKG ---
Test Date: 2018-06-08 Test Time: 15:09:39 [employer]: RENETTA MEASUREMENT RESULTS: Intervals: Rate: 99 MA: 162 QRSD: 106 QT: 388 QTc: 497 [place]: P: 59 MA: 162 QRS: 35 T: 40 INTERPRETIVE STATEMENTS: Normal sinus rhythm Incomplete left bundle branch block Nonspecific T wave abnormality Abnormal ECG Compared to ECG 07/22/2017 10:54:44 QRS duration has decreased Electronically Signed On 06-08-18 15:32:20 CDT by Samson Romeo
--- NOTE | 2018-06-08 16:14 | RAD REPORT ---
EXAM DESCRIPTION: RAD - Chest Single View - 06/08/2018 4:00 pm CLINICAL HISTORY: CHEST PAIN Chest pain. COMPARISON: Chest Single View dated 07/21/2017; Chest Single View dated 06/23/2017; Chest Single View dated 06/22/2017; Chest Single View dated 06/18/2017 FINDINGS: Portable technique limits examination quality. Mild interstitial pulmonary edema is noted. The heart is normal in size. No displaced fractures. IMPRESSION: Mild volume overload.
[2018-06-08 17:11] LABS: Absolute Lymphocytes (CBC) 0.9 K/uL (0.7-4.9); Absolute Monocytes 0.7 K/uL (0.1-1.3); Absolute Neutrophil 10.6 K/uL (1.8-8.0); Basophils % 0.7 % (0-1.3); Eosinophils % 2.2 % (0-4.4); Hematocrit 35.2 % (36.0-45.0); Lymphocytes % 6.8 % (15.3-44.8); MCV 88.6 fL (80-100); MPV 8.1 fL (7.6-11.3); Monocytes % 5.3 % (3.3-12.3); RBC Red Blood Cell Count 3.97 M/uL (3.86-4.86)
[2018-06-08 17:15] LABS: Protime INR 1.05
[2018-06-08 17:35] LABS: BUN Blood Urea Nitrogen 29 mg/dL (7-18); Bicarbonate 29 mmol/L (21-32); Glucose Level 192 mg/dL (74-106); Potassium 3.5 mmol/L (3.5-5.1); Sodium Level 137 mmol/L (136-145)
[2018-06-08 17:36] LABS: ALT/SGPT 22 U/L (12-78); AST/SGOT 17 U/L (15-37); Albumin 3.7 g/dL (3.4-5.0); Alkaline Phosphatase 162 U/L (45-117); Bilirubin Direct < 0.1 mg/dL (0-0.2); Bilirubin Total 0.3 mg/dL (0.2-1.0); CKMB Creatine Kinase MB < 1.0 ng/mL (0.3-3.6); Creatine Phosphokinase 41 U/L (26-192); NT PRO-BNP 1842 pg/mL (<125); Protein, Total 8.8 g/dL (6.4-8.2)
--- NOTE | 2018-06-08 17:45 | ER ---
Nurse's Notes [facility] Name: Alysa Mayes Age: 63 yrs Sex: Female : 1955 Arrival Date: 06/08/2018 Time: 15:12 Bed 3 Private MD: Diagnosis: Chest pain, unspecified;End stage renal disease Presentation: 06/08 15:20 Presenting complaint: EMS states: Pt was receiving dialysis at [facility] and began to ph experience mid-sternal, sharp chest pain, denies N/V or SOB. Pt did not complete tx, usually lasts 4.5 hrs but only completed 3 hrs before chest pain began. Nitro x 1 and 324 ASA administered. Transition of care: patient was not received from another setting of care. Onset of symptoms was June 08, 2018. Risk Assessment: Do you want to hurt yourself or someone else? Patient reports no desire to harm self or others. Initial Sepsis Screen: Does the patient meet any 2 criteria? No. Patient's initial sepsis screen is negative. Does the patient have a suspected source of infection? No. Patient's initial sepsis screen is negative. Care prior to arrival: Medication(s) given: ASA, 81 mg, x 2. 15:20 Method Of Arrival: EMS: [facility] ph 15:20 Acuity: LESLEE 3 ph Historical: - Allergies: 15:28 amlodipine; ph 15:28 Amoxicillin; ph 15:28 PENICILLINS; ph - Home Meds: 17:27 atorvastatin 40 mg Oral tab [Active]; clonidine HCl 0.1 mg oral tab as needed [Active]; ph Colace 100 mg oral cap 1 cap once daily [Active]; collagenase clostridium histolyticum topical topical [Active]; Coreg 12.5 mg Oral tab for 1 tab BID Sun/Tues/Thurs/Sat and 1 tab once a day Mon/Wed/Fri [Active]; furosemide 40 mg oral tab 1 tab 2 times per day [Active]; hydralazine 10 mg oral tab 1 tab 2 times per day [Active]; Levemir 100 unit/mL subcutaneous soln 12 unit twice a day [Active]; levothyroxine 50 mcg tab 1 tab once daily [Active]; loperamide 2 mg Oral cap daily [Active]; nifedipine 60 mg Oral TbER 1 tab Sun/Tues/Thurs/Sat [Active]; - PMHx: 15:28 Anemia; CHF; COPD; Diabetes - NIDDM; Hypertension; Dialysis; ph - Immunization history:: Adult Immunizations unknown. - Social history:: Smoking status: Patient/guardian denies using tobacco. - Ebola Screening: : No symptoms or risks identified at this time. - Family history:: not pertinent. - Hospitalizations: : No recent hospitalization is reported. Screenin:02 Abuse screen: Denies threats or abuse. Denies injuries from another. Nutritional ph screening: No deficits noted. Tuberculosis screening: No symptoms or risk factors identified. Fall Risk No fall in past 12 months (0 pts). No secondary diagnosis (0 pts). IV access (20 points). Ambulatory Aid- None/Bed Rest/Nurse Assist (0 pts). Gait- Normal/Bed Rest/Wheelchair (0 pts) Mental Status- Oriented to own ability (0 pts). Total Yang Fall Scale indicates No Risk (0-24 pts). Assessment: 15:45 General: Appears in no apparent distress. uncomfortable, obese, well groomed, Behavior ph is calm, cooperative, appropriate for age, quiet, Denies fever, feeling ill. Pain: Complains of pain in chest Pain currently is 6 out of 10 on a pain scale. Quality of pain is described as sharp, stabbing, Pain began suddenly. Neuro: Level of Consciousness is awake, obeys commands, Oriented to person, place, time, situation. Cardiovascular: Reports chest pain, Denies diaphoresis, nausea, shortness of breath, vomiting, Capillary refill < 3 seconds Patient's skin is warm and dry. Chest pain quality is sharp, is located in substernal area Dialysis shunt: in the right femoral area. Respiratory: Airway is patent Respiratory effort is even, unlabored. Derm: Skin is intact, is healthy with good turgor, Skin is pink, warm \T\ dry. Musculoskeletal: Circulation, motion, and sensation intact. Range of motion: intact in all extremities. 17:00 Reassessment: Patient appears in no apparent distress at this time. Patient and/or ph family updated on plan of care and expected duration. Pain level reassessed. Patient is alert, oriented x 3, equal unlabored respirations, skin warm/dry/pink. Reassessment: Pt resting quietly, rates pain 4/10, denies nausea or SOB, VSS, awaiting lab results. 18:00 Reassessment: Patient appears in no apparent distress at this time. No changes from ph previously documented assessment. Patient and/or family updated on plan of care and expected duration. Pain level reassessed. Patient is alert, oriented x 3, equal unlabored respirations, skin warm/dry/pink. 18:46 Reassessment: Patient appears in no apparent distress at this time. Patient and/or ph family updated on plan of care and expected duration. Pain level reassessed. Patient is alert, oriented x 3, equal unlabored respirations, skin warm/dry/pink. Pt resting quietly, reports chest pain 7/10, ERP notified, see MAR. 19:17 Reassessment: Patient appears in no apparent distress at this time. Patient and/or tl2 family updated on plan of care and expected duration. Pain level reassessed. Patient is alert, oriented x 3, equal unlabored respirations, skin warm/dry/pink. Will call report after shift change. Lab at bedside to draw repeat troponin. 20:29 Reassessment: Patient appears in no apparent distress at this time. Patient and/or tl2 family updated on plan of care and expected duration. Pain level reassessed. Patient is alert, oriented x 3, equal unlabored respirations, skin warm/dry/pink. Pt stable and ready for transport to floor. Vital Signs: 15:26 BP 112 / 67; Pulse 100; Resp 24; Temp 97.8; Pulse Ox 97% on R/A; ph 16:30 BP 140 / 65; Pulse 94; Resp 18; Pulse Ox 97% on R/A; ph 17:22 BP 153 / 67; Pulse 98; Resp 21; Pulse Ox 97% on R/A; jb1 18:47 BP 169 / 69; Pulse 98; Resp 20; Pulse Ox 97% on R/A; ph 19:17 BP 157 / 77; Pulse 94; Resp 20; Pulse Ox 96% on R/A; tl2 ED Course: 15:12 Patient arrived in ED. rn 15:12 Emerson Richard MD is Attending Physician. rn 15:19 Em Green RN is Primary Nurse. ph 15:26 Triage completed. ph 15:45 Patient has correct armband on for positive identification. Placed in gown. Bed in low ph position. Side rails up X 1. leather dresser on. Pulse ox on. NIBP on. Warm blanket given. 15:45 Arm band placed on. ph 15:50 EKG done, by maintenance shop technician. reviewed by Emerson Richard MD. sm3 15:56 X-ray completed. Portable x-ray completed in exam room. Patient tolerated procedure ml well. 15:58 XRAY Chest (1 view) In Process Unspecified. EDMS 16:10 Missed attempt(s): 22 gauge in right antecubital area. Bleeding controlled, band aid ph applied, catheter tip intact. 16:15 Missed attempt(s): 22 gauge in right antecubital area. Bleeding controlled, band aid ph applied, catheter tip intact. 16:38 Missed attempt(s): 22 gauge in right forearm. Bleeding controlled, band aid applied, ss catheter tip intact. 16:57 Accessed peripheral vein via ultrasound, utilizing dynamic ultrasound technique using ph 20G Nexia IV catheter Clean \T\ dry. Dressing intact. Good blood return. Flushes easily. IV inserted by Dr Richard. 17:20 No provider procedures requiring assistance completed. Patient admitted, IV remains in ph place. 17:44 Gin Sheriff MD is Hospitalizing Provider. rn 19:19 IV is patent, with fluids infusing freely, without good blood return, Flushed right tl2 antecubital with 5 ml normal saline. Administered Medications: 18:45 Drug: [place] 10 mg-325 mg 1 tabs Route: PO; ph 18:45 Follow up: Response: No adverse reaction ph Outcome: 17:44 Decision to Hospitalize by Provider. rn 20:29 Admitted to Tele accompanied by tech, via stretcher, room 403, with chart, Report tl2 called to TIM Perez 20:29 Condition: stable 20:29 Discharge instructions given to patient, Instructed on the need for admit. 20:30 Patient left the ED. tl2 Signatures: Dispatcher [employer] EDMS Tim Grayson1 Corrine Banks Roman, MD MD rn Smirch, Shelby, RN RN ss Hall, Patricia, RN RN ph Knox, Taylor, RN RN tl2 Antonella Hernandez 3 Corrections: (The following items were deleted from the chart) 19:20 19:17 BP 157 / 77; Pulse 94bpm; Resp 20bpm; Pulse Ox 94% RA; tl2 tl2
--- NOTE | 2018-06-08 17:45 | EDPHYS ---
Physician Documentation [facility] Name: Alysa Mayes Age: 63 yrs Sex: Female : 1955 Arrival Date: 06/08/2018 Time: 15:12 Bed 3 Private MD: ED Physician Emerson Richard HPI: 06/08 17:05 This 63 yrs old Black Female presents to ER via EMS with complaints of chest pain. rn 17:05 The patient or guardian reports chest pain that is located primarily in the substernal rn area. Onset: just prior to arrival. The pain does not radiate. Associated signs and symptoms: The patient has no apparent associated signs or symptoms, Pertinent negatives: abdominal pain, palpitations, shortness of breath, syncope, vomiting. The chest pain is described as squeezing. Duration: The patient or guardian reports a single episode, that is still ongoing. Severity of pain: At its worst the pain was moderate in the emergency department the pain has improved. The patient has not experienced similar symptoms in the past. REports almost done with dialysis, began having substernal chest pain, non-radiating, improved with nitro and aspirin, no recent cath/stress, + DM/CHF/HTN. [place] fine prior to dialysis.. Historical: - Allergies: 15:28 amlodipine; ph 15:28 Amoxicillin; ph 15:28 PENICILLINS; ph - Home Meds: 17:27 atorvastatin 40 mg Oral tab [Active]; clonidine HCl 0.1 mg oral tab as needed [Active]; ph Colace 100 mg oral cap 1 cap once daily [Active]; collagenase clostridium histolyticum topical topical [Active]; Coreg 12.5 mg Oral tab for 1 tab BID Sun/Tues/Thurs/Sat and 1 tab once a day Mon/Wed/Fri [Active]; furosemide 40 mg oral tab 1 tab 2 times per day [Active]; hydralazine 10 mg oral tab 1 tab 2 times per day [Active]; Levemir 100 unit/mL subcutaneous soln 12 unit twice a day [Active]; levothyroxine 50 mcg tab 1 tab once daily [Active]; loperamide 2 mg Oral cap daily [Active]; nifedipine 60 mg Oral TbER 1 tab Sun/Tues/Thurs/Sat [Active]; - PMHx: 15:28 Anemia; CHF; COPD; Diabetes - NIDDM; Hypertension; Dialysis; ph - Immunization history:: Adult Immunizations unknown. - Social history:: Smoking status: Patient/guardian denies using tobacco. - Ebola Screening: : No symptoms or risks identified at this time. - Family history:: not pertinent. - Hospitalizations: : No recent hospitalization is reported. ROS: 17:05 Constitutional: Negative for fever, chills, and weight loss, Eyes: Negative for injury, rn pain, redness, and discharge, Neck: Negative for injury, pain, and swelling, Cardiovascular: Negative for palpitations, and edema, Respiratory: Negative for shortness of breath, cough, wheezing, and pleuritic chest pain, Abdomen/GI: Negative for abdominal pain, vomiting, diarrhea, and constipation, MS/Extremity: Negative for injury and deformity, Skin: Negative for injury, rash, and discoloration, Neuro: Negative for headache, weakness, numbness, tingling, and seizure. Exam: 17:05 Constitutional: This is a well developed, well nourished patient who is awake, alert, rn and in no acute distress. Head/Face: Normocephalic, atraumatic. Eyes: Pupils equal round and reactive to light, extra-ocular motions intact. Lids and lashes normal. Conjunctiva and sclera are non-icteric and not injected. Cornea within normal limits. Periorbital areas with no swelling, redness, or edema. Cardiovascular: Regular rate and rhythm with a normal S1 and S2. No gallops, murmurs, or rubs. Normal PMI, no JVD. No pulse deficits. Respiratory: Lungs have equal breath sounds bilaterally, clear to auscultation and percussion. No rales, rhonchi or wheezes noted. No increased work of breathing, no retractions or nasal flaring. Abdomen/GI: Soft, non-tender, with normal bowel sounds. No distension or tympany. No guarding or rebound. No evidence of tenderness throughout. MS/ Extremity: Pulses equal, no cyanosis. Neurovascular intact. Full, normal range of motion. Equal circumference. Neuro: Awake and alert, GCS 15 Vital Signs: 15:26 BP 112 / 67; Pulse 100; Resp 24; Temp 97.8; Pulse Ox 97% on R/A; ph 16:30 BP 140 / 65; Pulse 94; Resp 18; Pulse Ox 97% on R/A; ph 17:22 BP 153 / 67; Pulse 98; Resp 21; Pulse Ox 97% on R/A; jb1 18:47 BP 169 / 69; Pulse 98; Resp 20; Pulse Ox 97% on R/A; ph 19:17 BP 157 / 77; Pulse 94; Resp 20; Pulse Ox 96% on R/A; tl2 MDM: 15:12 Patient medically screened. rn 17:40 Differential diagnosis: acute myocardial infarction, acute pericarditis, coronary rn artery disease costochondritis, gastroesophageal reflux disease (GERD), pericarditis, pleurisy, pneumothorax. Data reviewed: vital signs, nurses notes, lab test result(s), EKG, radiologic studies, plain films, and as a result, I will admit patient. Counseling: I had a detailed discussion with the patient and/or guardian regarding: the historical points, exam findings, and any diagnostic results supporting the discharge/admit diagnosis, lab results, radiology results, the need for further work-up and treatment in the hospital. Response to treatment: the patient's symptoms have markedly improved after treatment, and as a result, I will admit patient. Admission orders: after a detailed discussion of the patient's condition and case, the admit orders are written by me. 06/08 15:13 Order name: CPK; Complete Time: 17:39 06/08 15:13 Order name: Ckmb; Complete Time: 17:39 06/08 15:13 Order name: Basic Metabolic Panel; Complete Time: 17:39 06/08 15:13 Order name: CBC with Diff; Complete Time: 17:39 06/08 15:13 Order name: LFT's; Complete Time: 17:39 06/08 15:13 Order name: Magnesium; Complete Time: 17:39 06/08 15:13 Order name: NT PRO-BNP; Complete Time: 17:39 06/08 15:13 Order name: PT-INR; Complete Time: 17:39 06/08 15:13 Order name: Ptt, Activated; Complete Time: 17:39 06/08 15:13 Order name: Troponin (emerg Dept Use Only); Complete Time: 17:39 06/08 15:13 Order name: XRAY Chest (1 view); Complete Time: 16:18 06/08 15:13 Order name: EKG; Complete Time: 15:14 rn 06/08 19:52 Order name: Troponin I [facility] 06/08 15:13 Order name: Cardiac monitoring; Complete Time: 17:19 rn 06/08 15:13 Order name: EKG - Nurse/Tech; Complete Time: 17:19 rn 06/08 15:13 Order name: IV Saline Lock; Complete Time: 17:19 rn 06/08 15:13 Order name: Labs collected and sent; Complete Time: 17:19 rn 06/08 15:13 Order name: O2 Per Protocol; Complete Time: 17:20 rn 06/08 15:13 Order name: O2 Sat Monitoring; Complete Time: 17:20 rn Administered Medications: 18:45 Drug: [place] 10 mg-325 mg 1 tabs Route: PO; ph 18:45 Follow up: Response: No adverse reaction ph Disposition: 06/08/18 17:44 Hospitalization ordered by Gin Sheriff for Observation. Preliminary diagnosis are Chest pain, unspecified, End stage renal disease. - Bed requested for Telemetry/MedSurg (observation). - Status is Observation. tl2 - Condition is Stable. - Problem is new. - Symptoms have improved. UTI on Admission? No Signatures: Dispatcher [employer] EDIN Marlen Alberto ms, Roman, MD MD rn Hall, Patricia, RN RN ph Knox, Taylor, RN RN tl2 Corrections: (The following items were deleted from the chart) 17:07 17:05 Constitutional: Negative for fever, chills, and weight loss, Eyes: Negative for rn injury, pain, redness, and discharge, Neck: Negative for injury, pain, and swelling, Cardiovascular: Negative for palpitations, and edema, Respiratory: Negative for shortness of breath, cough, wheezing, and pleuritic chest pain, Abdomen/GI: Negative for abdominal pain, nausea, vomiting, diarrhea, and constipation, MS/Extremity: Negative for injury and deformity, Skin: Negative for injury, rash, and discoloration, Neuro: Negative for headache, weakness, numbness, tingling, and seizure, rn 19:49 17:44 Hospitalization Ordered by Gin Sheriff MD for Observation. Preliminary diagnosis ms is Chest pain, unspecified; End stage renal disease. Bed requested for Telemetry/MedSurg (observation). Status is Observation. Condition is Stable. Problem is new. Symptoms have improved. UTI on Admission? No. rn 20:30 19:49 06/08/2018 17:44 Hospitalization Ordered by Gin Sheriff MD for Observation. tl2 Preliminary diagnosis is Chest pain, unspecified; End stage renal disease. Bed requested for Telemetry/MedSurg (observation). Status is Observation. Condition is Stable. Problem is new. Symptoms have improved. UTI on Admission? No. ms
[2018-06-08] MEDS ORDERED: MORPHINE 4 MG/ML SYR IV PRN (18:28)
[2018-06-08] MEDS ORDERED: NITROGLYCERIN 0.4 MG/TAB SL PRN (18:42)
[2018-06-08] MEDS ORDERED: GLUCAGON 1 MG/VIAL IM PRN (18:45)
[2018-06-08] MEDS ORDERED: D50W 25 GM/50 ML SYRINGE IV PRN (18:45)
[2018-06-08] MEDS ORDERED: HYDROCODONE/APAP 10/325 TAB ONE (18:46)
[2018-06-08 20:55] VITALS: BMI 32.1
[2018-06-08] MEDS: INSULIN -REGULAR HUMAN 50 UNIT/0.5 ML ML SQ SCH (21:00)
[2018-06-08] MEDS: ENOXAPARIN 30 MG/0.3 ML SQ SCH (22:03)
[2018-06-09 03:32] LABS: Absolute Lymphocytes (CBC) 1.2 K/uL (0.7-4.9); Absolute Monocytes 0.9 K/uL (0.1-1.3); Absolute Neutrophil 7.3 K/uL (1.8-8.0); Basophils % 1.1 % (0-1.3); Eosinophils % 3.1 % (0-4.4); Hematocrit 30.6 % (36.0-45.0); Lymphocytes % 12.1 % (15.3-44.8); MCH 28.3 pg (27.0-35.0); MCV 88.6 fL (80-100); MPV 7.9 fL (7.6-11.3); Monocytes % 9.5 % (3.3-12.3); RBC Red Blood Cell Count 3.46 M/uL (3.86-4.86)
[2018-06-09 03:55] LABS: Potassium 3.9 mmol/L (3.5-5.1)
--- NOTE | 2018-06-09 04:10 | HP ---
Date of Admission: 06/08/2018 Chief Complaint: Chest pain. CODE STATUS: Full Consultants: 1. Dr. Romeo with Cardiology. 2. Dr. Desai with Nephrology. History Of Present Illness: The patient is a 63-year-old female with past medical history of end-stage renal disease, on hemodialysis. Goes Wednesday, Wednesday, Wednesday with dialysis that was incomplete today as she developed chest pain symptoms after 45 minutes. The patient's pain was substernal toward the left side; nonradiating; not associated with any nausea, vomiting, diaphoresis, or shortness of breath. The patient was given nitro and her blood pressure decreased to 80 systolic. The patient was then referred to the emergency room, brought in by EMS. She was also given aspirin, which she states helped her pain slightly. The patient's symptoms are constant, moderate , progressively worsening. Upon arrival, her vital signs showed blood pressure 112/67. Her O2 sats were 97% on room air. Her workup showed some mild volume overload on chest x-[place] [address]. The patient was referred for admission for chest pain. Her initial troponin and EKG were negative. When seen in the ER, she was complaining of some chest tightness. Past Medical History: End-stage renal disease, on hemodialysis Wednesday, Wednesday, and Wednesday; hypertension; asthma; diabetes mellitus type 2; anemia; diastolic congestive heart failure; gout. Past Surgical History: Right eye surgery, December 25, 2014 for cataract; left eye cataract surgery, January 15, 2015. Allergies: AMOXICILLIN AND PENICILLIN; CAUSES ITCHING, RASH. Medications: List reviewed. Family History: Father had heart disease anlld prostate cancer. Mother had heart disease, hypertension, diabetes, and breast cancer. Social History: The patient denies any illicit drug use, alcohol use, or tobacco use. Review of Systems: An 11-point system reviewed, negative except as per HPI. Physical Examination: Vital Signs: Blood pressure 112/67, pulse 100, respirations 24, temperature 97.8, O2 97% on room air. General: Awake, alert, oriented x3. Some mild distress. Elderly female, ill- appearing, obese. CV: S1 and S2. Regular rate and rhythm. Peripheral pulses present. No murmurs. Respiratory: Some diminished breath sounds. No crackles or wheezing. No use of accessory muscles. The patient is slightly tachypneic. Gastrointestinal: Abdomen is soft, nontender, and nondistended. Positive bowel sounds. No guarding or rigidity. Extremities: No clubbing or cyanosis. Trace pedal edema. No calf tenderness. Neurologic: Cranial nerves 2 through 12 intact grossly. No focal neurological deficit. Speech is normal. Strength is 5/5 bilateral upper and lower extremities. Sensation intact to light touch. Skin: The patient has diabetic ulcer on the heel of the right foot, no surrounding erythema, dry. Psych: Mood is okay. Affect is full. Insight and judgment are good. Laboratory Data: Sodium 137, potassium 3.5, chloride 100, CO2 29, BUN 29, creatinine 4.2, glucose 192, calcium 8.7, magnesium 2, BNP 1842. WBC 12.5, H and H 11.5 and 35.2, platelets 266. INR of 1.05. EKG shows incomplete left bundle-branch block. Normal sinus rhythm, rate of 99 , nonspecific T-wave abnormality. Assessment: A 63-year-old female with; 1. Chest pain. We will rule out acute coronary syndrome. Initial cardiac workup is negative. We will trend cardiac enzymes and EKG p.r.n. We will continue with beta-demar, KIM inhibitor, statin, and aspirin. We will obtain Cardiology consultation. Last known echocardiogram was from 2017. May need to repeat echocardiogram. 2. Hypotension. The patient became hypotensive after nitro. We will continue to monitor blood pressure. 3. Asthma. Albuterol p.r.n. 4. Diabetes mellitus type 2 with hyperglycemia. We will continue on sliding scale insulin. 5. End-stage renal disease, on hemodialysis. We will consult Nephrology. The patient had incomplete dialysis done today due to chest pain. 6. Chronic diastolic heart failure. Last known ejection fraction about 50% to 55% from 2017, compensated. We will continue with fluid restriction. 7. Gout. 8. Gastrointestinal and deep venous thrombosis prophylaxes addressed. Renally dosed Lovenox. 9. Diabetic heel ulcer on the left. We will continue offloading. No signs of acute infection at this time. Plan: Admit the patient to Med-Surg, place as observation. MAGDA Voice ID: [id number] [facility]
[2018-06-09] MEDS: INSULIN -REGULAR HUMAN 50 UNIT/0.5 ML ML SQ SCH ×4 (07:30→21:00)
[2018-06-09] MEDS ORDERED: REGADENOSON 0.4 MG/5 ML SYR IV ONE (08:22)
[2018-06-09] MEDS: ASPIRIN EC 81 MG TAB PO SCH (09:01)
[2018-06-09] MEDS ORDERED: cloNIDine HCl 0.1 MG TAB PO PRN (09:06)
[2018-06-09] MEDS ORDERED: LOPERAMIDE HCL 2 MG CAPSULE PO PRN (09:06)
--- NOTE | 2018-06-09 10:22 | TREADPHA ---
DX: CHEST PAIN Date of Study: 06/09/2018 Ht: 5 5 Wt: 193 lb 4.8 oz Consulting Physician: VALORIE MEDICATIONS: TYLENOL, ASPIRIN, DEXTROSE, LOVENOX, GLUCAGEN, NOVOLIN-R, NITROSTAT HISTORY: 63 YEAR OLD FEMALE WITH COMPLAINTS OF CHEST PAIN. MEDICAL HISTORY OF ANEMIA, CONGESTIVE HEART FAILURE, COPD, DIABETES MELLITUS, HYPERTENSION AND DIALYSIS. PHYSICIAL EXAMINATION: RESTING B.P.: 141/65 RESTING H.R.: 94 RESTING EKG: SINUS RHYTHM, POSSIBLE LEFT VENTRICULAR HYPERTROPHY. PROTOCOL: LEXISCAN EXERCISE TIME: 3:30 B.P. AT PEAK STRESS: 94/52 IMPRESSION: LEXISCAN INJECTED. CARDIOLITE INJECTED PER PROTOCOL. SEE NUCLEAR MEDICINE REPORT. NO SUPRAVENTRICULAR OR VENTRICULAR TACHYCARDIA NOTED. NO PREMATURE VENTRICULAR COMPLEXES. DENIED CHEST PAIN.
[2018-06-09] MEDS: INSULIN DETEMIR 100 UNIT/1 ML INSULIN SQ SCH ×2 (10:39→22:55)
[2018-06-09] MEDS: HYDRALAZINE HCL 10 MG TABLET PO SCH ×2 (10:40→22:56)
[2018-06-09] MEDS: PREGABALIN 75 MG CAP PO SCH ×2 (10:40→22:56)
[2018-06-09] MEDS: NIFEDIPINE XL 60 MG TABLET PO SCH (10:40)
[2018-06-09] MEDS: CARVEDILOL 12.5 MG TAB PO SCH ×2 (10:40→22:56)
[2018-06-09] MEDS: FUROSEMIDE 40 MG TABLET PO SCH (10:40)
--- NOTE | 2018-06-09 12:41 | RAD REPORT ---
EXAM DESCRIPTION: NM - Rest Stress Cardiac Imaging - 06/09/2018 12:35 pm CLINICAL HISTORY: CP Chest pain. COMPARISON: Rest Stress Cardiac Imaging dated 12/14/2016 TECHNIQUE: The patient was administered approximately 10mCi of Tc 99m Sestamibi prior to resting SPE CT imaging of the heart. The patient was then administered approximately 30 mCi of Tc 99m Sestamibi f ollowing exercise or pharmacologic stress. Multiplanar SPECT images were reviewed. FINDINGS: No stress induced ischemic defect is seen to suggest stress induced ischemia. No fixed def ect is seen to suggest hibernating myocardium or scarred myocardium. The end diastolic volume is 94 ml, the end systolic volume is 56 ml, and the ejection fraction is 41 %. IMPRESSION: No stress induced ischemia.
[2018-06-09] MEDS ORDERED: EPOETIN ALFA 10,000 UNIT/ML VIAL IV SCH (13:45)
[2018-06-09] MEDS ORDERED: VANCOMYCIN/NS 1 gm 1 GM/250 ML BAG IVPB SCH (14:00)
[2018-06-09] MEDS ORDERED: Meropenem 500 MG VIAL IV SCH (14:00)
[2018-06-09] MEDS ORDERED: Meropenem 500 MG in NA CHLORIDE 0.9% 100 ML IV SCH (15:00)
--- NOTE | 2018-06-09 15:19 | RAD REPORT ---
EXAM DESCRIPTION: RAD - Foot Left 2 View - 06/09/2018 3:09 pm CLINICAL HISTORY: ulcer, rule out free air Osteomyelitis COMPARISON: Foot Left 2 View dated 11/10/2011 FINDINGS: A large heel soft tissue ulceration is noted. No subcutaneous gas is seen. No evidence of underlying osteomyelitis. Vascular calcification is noted.
[2018-06-09] MEDS: ENOXAPARIN 30 MG/0.3 ML SQ SCH (16:47)
[2018-06-09] MEDS ORDERED: PIPER/TAZO/NS 2.25gm 2.25 GM/50 ML BAG IVPB SCH (17:00)
--- NOTE | 2018-06-09 18:07 | CON ---
Date of Consultation: 06/09/2018 Consulting Physician: Dr. Gin Sheriff. Reason For Consultation: Elevated BUN creatinine, end-stage renal disease, hemodialysis, hypertensio n and fluid management. History Of Present Illness: This is a pleasant 63-year-old female well known to me from the dialysis , with significant past medical history of hypertension, diabetes complicated with neuropathy and nep hropathy, coronary artery disease complicated with congestive heart failure, and COPD. The patient w as in her regular state of health. The patient was on dialysis yesterday and around 45 minute to the end of the treatment after 3 hours the patient develop some chest pain and chest tightness. For helen t reason, treatment was ended early and patient sent to the hospital. The patient over night had bee n chest pain free. The patient underwent a stress test today feeling slightly better. No nausea. N o vomiting. We have been consulted as the patient may need dialysis. Past Medical History: Includes; 1.Hypertension. 2.Hyperlipidemia. 3.Diabetes complicated with nephropathy and neuropathy. 4.Colon artery disease complicated with congestive heart failure. 5.End-stage renal disease on hemodialysis, Wednesday, Wednesday, Wednesday through AV fistula at [facility]. 6.Congestive heart failure ejection fraction back in July 2017 is 55, possible diastolic dysfun ction. Social History: Denies smoking, denies drinking, denies drug abuse. Family History: Positive for diabetes and hypertension. Allergies: TO AMOXICILLIN, PENICILLIN, AND AMLODIPINE. Review of Systems: Head and Neck: No red eye. No ear pain. GI: No nausea, no vomiting. : No polyuria. No dysuria. No hematuria. The patient is anuric. 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 Respiratory: No shortness of breath. Cardiovascular: Had chest pain with chest tightness yesterday. Endocrine: No polydipsia. Skin: No rash. Neuro: Has neuropathy. Musculoskeletal: No back pain. Physical Examination: General: When I saw the patient, the patient was sitting in the chair comfortably, no shortness of b reath. Vital Signs: Blood pressure 145/66, pulse of 91, afebrile. Chest: Clear to auscultation. Heart: S1, S2. Systolic murmur. Abdomen: Soft, nontender. Extremities: No edema. Neurologic: Nonfocal. Laboratory Data: WBC 9.8, H and H 9.8/30.6, platelet 219. Sodium 139, potassium 3.9, bicarb 26, BUN 42, creatinine 5.2, calcium 8.5. Medications: Current medications in the hospital include; 1.Aspirin. 2.Atorvastatin. 3.Carvedilol 12.5. 4.Clonidine p.r.n. 5.Nifedipine 60 daily. 6.Nitroglycerin. 7.Lyrica. 8.Lasix. 9.Loperamide. 10.Levothyroxine 0.05. 11.Docusate. Assessment And Plan: 1.End-stage renal disease, stable. No acidosis, normal volume currently. I am going to keep the mi hedrick on her schedule of dialysis. We will arrange for the dialysis tomorrow. We will challenge the patient. 2.Alkalosis secondary to metabolic disorders, stable. No need for any correction for the time being . 3.Anemia of chronic kidney disease. We will resume Epogen. 4.Diabetes as by primary. 5.Chest pain. We will follow up stress test. YELENA/HERIBERTO Voice ID: [id number] Report ID: [id number]
--- NOTE | 2018-06-09 18:13 | PN ---
Date of Progress Note: 06/09/2018 Subjective: The patient seen and examined, chart reviewed and case discussed with Dr. Desai and Medardo Lloyd as well as Dr. Wilcox. The patient denies any chest pain, no shortness of breath. The patient was seen by wound care and was found to have large necrotic wound on the left heel and theref ore Dr. Wilcox was consulted. The patient will likely go for debridement in the a.m. Review of Systems: Negative except as per HPI. Medications: List reviewed. Objective: Vital Signs: Temperature 97.8, heart rate 103, blood pressure 145/66, respirations 18, a nd O2 100% on room air. General: Awake, alert, oriented x3. No acute distress. Elderly female, obese, BMI 32.27, ill-appea ring. CV: S1, S2. Sinus tachycardia. No murmurs. Peripheral pulses present. Respiratory: Clear to auscultation bilaterally. No wheezing. Gastrointestinal: Abdomen is soft, nontender, nondistended. Positive bowel sounds. Extremities: No clubbing, cyanosis. Some trace edema. Neurologic: Nonfocal. Skin: The patient has a large necrotic wound on the left heel and a healing heel wound on the right. Laboratory Data: Sodium 139, potassium 3.9, chloride 104, CO2 26, BUN 42, creatinine 5.2, glucose 17 3, calcium 8.5, triglycerides 121, cholesterol 82, LDL 24, and HDL 34. WBC 9.8, H and H 9.8, 30.6, p latelets 219, and neutrophils 74%. Cardiac stress test does not show any stress-induced ischemia. Assessment: A 63-year-old female wit; 1.Chest pain. Acute coronary syndrome ruled out. Troponin negative. Stress test is negative. 2.Hypertension, improved. 3.End-stage renal disease, on hemodialysis. Dr. Desai on board. Dialysis will days is tomorrow. 4.Diabetes mellitus type 2 with hyperglycemia with chronic kidney dysfunction. We will continue on sliding scale insulin. The patient does require long-term use of insulin. 5.Asthma. Use albuterol p.r.n. 6.left heel wound, likely diabetic ulcer. We will obtain MRI to rule out osteomyelitis. Dr. Robbi hunter has been consulted. He recommends debridement. 7.Chronic diastolic heart failure. Last known ejection fraction of 55%. Continue fluid restriction 2 g sodium diet. Daily weights. 8.Gout. 9.Gastrointestinal and deep venous thrombosis prophylaxis with PPI and Lovenox renally dosed. Plan: Anticipate surgery in a.m. N.p.o. after midnight. MAGDA Voice ID: [id number] Report ID: [id number]
--- NOTE | 2018-06-09 20:29 | RAD REPORT ---
EXAM DESCRIPTION: MRI - Foot Left Wo Cont - 06/09/2018 8:00 pm CLINICAL HISTORY: Diabetic foot ulcer Osteomyelitis. COMPARISON: Foot Left Wo Cont dated 02/17/2018; Foot Left 2 View dated 06/09/2018 FINDINGS: A moderate sized soft tissue ulceration is seen along the posterior heel. Moderate reticul ation of the adjacent fat is seen with generalized subcutaneous edema present. Normal T1 signal and n ormal T2/IR signal is seen posterior calcaneus. There is no evidence of osteomyelitis. The plantar fa scia and the Achilles tendon are intact. IMPRESSION: Negative for osteomyelitis.
[2018-06-09] MEDS: ATORVASTATIN 40 MG TAB PO SCH (22:56)
[2018-06-10] MEDS: LEVOTHYROXINE SOD 0.05 MG TABLET PO SCH (05:25)
--- NOTE | 2018-06-10 05:55 | CON ---
Date of Consultation: 06/09/[address] Sheriff's service on 06/08/2018. I saw the patient on 06/09/2018. Reason For Consultation: Chest pain. History Of Present Illness: Ms. Mayes is a 63-year-old woman with history of end-stage renal diseas e, on hemodialysis; dyslipidemia; hypertension; diabetes; anemia; congestive heart failure; COPD, who developed chest pain during dialysis. No nausea, vomiting, diaphoresis, PND, orthopnea, pedal edema , palpitations, or syncope. Had a negative troponin. Her creatinine was 4.2. White count of 12,000 . BNP was 1842. Chest x-ray shows some mild congestive heart failure. Allergies: SHE IS ALLERGIC TO NORVASC AND PENICILLIN. Review of Systems: Negative. Social History: Negative. Family History: Negative. Medications: Include insulin, Procardia, Lyrica, Lipitor, Coreg, clonidine, hydralazine, and Lasix. Physical Examination: Vital Signs: Stable, afebrile. HEENT Exam: Negative. Neck: Supple. No bruit. Chest: Clear. Cardiac Exam: Revealed a regular rhythm and rate with S4, gallops, and a tricuspid regurgitation and murmur. Abdomen: Benign. Extremities: Revealed no clubbing, cyanosis, or edema. Diagnostic Data: As stated earlier. An echocardiogram in 2017 showed moderate pulmonary hypertensio n, LVH, decreased left ventricular compliance and normal ejection fraction. An EKG showed an incompl ete left bundle-branch block. Impression And Plan: 1.Chest pain, post dialysis in a patient with many risk factors for heart disease. I recommend to chela Dorsey. 2.Diabetes. 3.Hypertension. 4.End-stage renal disease, on hemodialysis. 5.Dyslipidemia. 6.Chronic obstructive pulmonary disease. 7.Chronic diastolic congestive heart failure with mild acute exacerbation. We will see what her Trav iscan shows prior to making any final decision. There is no need to repeat another echocardiogram. I will discuss the case further with Dr. Sheriff. JOE/HERIBERTO Voice ID: [id number] Report ID: [id number]
[2018-06-10] MEDS: INSULIN -REGULAR HUMAN 50 UNIT/0.5 ML ML SQ SCH ×4 (07:30→21:00)
[2018-06-10] MEDS: CARVEDILOL 12.5 MG TAB PO SCH ×2 (09:00→21:30)
[2018-06-10] MEDS ORDERED: COLLAGENASE 30 GM OINTMENT TOP SCH (09:00)
[2018-06-10] MEDS: COLLAGENASE 30 GM OINTMENT TOP SCH (09:00)
[2018-06-10] MEDS: HYDRALAZINE HCL 10 MG TABLET PO SCH ×2 (09:00→21:30)
[2018-06-10] MEDS: FUROSEMIDE 40 MG TABLET PO SCH (09:00)
[2018-06-10] MEDS: NIFEDIPINE XL 60 MG TABLET PO SCH (09:00)
[2018-06-10] MEDS: INSULIN DETEMIR 100 UNIT/1 ML INSULIN SQ SCH ×2 (09:19→21:31)
[2018-06-10] MEDS: PREGABALIN 75 MG CAP PO SCH ×2 (09:20→21:30)
[2018-06-10] MEDS: DOCUSATE NA 100 MG CAP PO SCH (09:20)
[2018-06-10] MEDS ORDERED: NA CHLORIDE 0.9% 1,000 ML IV PRN (11:36)
[2018-06-10] MEDS ORDERED: MANNITOL 25% 12.5 GM/50 ML VIAL IV PRN (11:36)
[2018-06-10] MEDS ORDERED: ALBUMIN HUMAN 25% 50 ML IV SCH (12:00)
--- NOTE | 2018-06-10 12:32 | PN ---
Date of Progress Note: 06/09/2018 Ms. Mayes was seen on 06/09/2018 for chest pain, has renal issues, hypertension, dyslipidemia. Ches t pain was atypical and ruled out for an UT. Lexiscan that was done yesterday was normal without any evidence of ischemia. Ms. Mayes can be discharged whenever it is okay with the primary care physic wyatt. We will follow her as an outpatient if they need to be. JOE/HERIBERTO Voice ID: [id number] Report ID: [id number]
[2018-06-10] MEDS ORDERED: NA CHLORIDE 0.9% 500 ML ONE (13:53)
--- NOTE | 2018-06-10 13:56 | CON ---
Date of Consultation: 06/09/2018 This patient was seen on the floor. History Of Present Illness: This is the case of a 63-year-old patient with multiple medical problems , admitted initially with some chest discomfort. She has cardiology evaluation that shows to have no significant cardiac event, but also during the workup as per primary doctor, the patient found to tomlinson ve a decubitus ulcer on the left heel area with necrotic tissue present. It looked like they have be en doing some dressing changes with Normanyl, but the necrotic tissue is a [facility] They asked me for surgical debridement. The patient denies any dysur ia, hematuria, hematochezia, or melena. Denies any recent travel out of the country. Denies any fam john member sick at home. Review of Systems: Somehow limited since patient has some limited capabilities to give me the whole story, but we were a ble to converse with her. Allergies: AMOXICILLIN. AMLODIPINE. Medications: Reviewed. Medical Problems: Anemia, congestive heart failure, COPD, diabetes, end-stage renal disease, hyperte nsion. Physical Examination: General: The patient is awake and alert. No distress. Abdomen: Soft and depressible. No guarding or rebound. Chest: Bilateral breath sounds. Extremities: On the left leg, the patient has a diabetic foot ulcer with necrotic tissue present. I t is very close to the bone. MRI cannot be completely ruled out. It is almost completely exposed to the calcaneal area. Dorsalis pedis pulses bilaterally diminished. No calf tenderness. Laboratory Data: Blood work shows a WBC count of 12.5, with hemoglobin of 11.5 and platelets of the 266. INR is 1.05. Creatinine is 5.20. Assessment: A 63-year-old patient seen in the floor with left leg necrotic diabetic ulcer. The jose luis ent is a correction patient. She is going to be soon discharged, but the primary doctor obviously understanding that this has necrotic tissue, asked me to do surgical debridement, so when she comes b ack to her correction at least that area is free off tissue and they may continue with the hailey e dressing changes and off-loading and nutrition that they have been doing so far. So, the patient w as booked in the OR. The benefits, alternatives, and risks fully explained, which include but are no t limited to infection, bleeding, damage to adjacent structures, anesthesia complication, nonhealing wound, NM, and even . MAURY/MODVirgie Voice ID: [id number] Report ID: [id number]
[2018-06-10] MEDS ORDERED: PROPOFOL 200 MG/20 ML VIAL IV ONE (14:25)
[2018-06-10] MEDS ORDERED: LIDOCAINE 1% MPF 5 ML VIAL ONE (14:25)
[2018-06-10] MEDS ORDERED: EPHEDRINE SULF 50 MG/10 ML SYR ONE (14:39)
--- NOTE | 2018-06-10 14:58 | P.BOP ---
Preoperative diagnosis: left heel necrotic diabetic ulcer Postoperative diagnosis: same Primary procedure: Excisional debridement subQ L heel necrotic diabetic ulcer 8 x 5 x 0.5 cm Estimated blood loss: <10cc Specimen: none Findings: left heel necrotic diabetic ulcer Anesthesia: General Complications: None Transferred to: Recovery Room Condition: Good
[2018-06-10] MEDS: ACETAMINOPHEN 500 MG TAB PO PRN (16:00)
--- NOTE | 2018-06-10 16:22 | DS ---
Date of Discharge: 06/10/2018 Procedures: Cardiac stress test on 06/09/2018, no stress-induced ischemia. On 06/10/2018, incisiona l debridement of left hip chronic wound ulcer. Consultants: Dr. Wilcox with General Surgery, Dr. Lloyd with Cardiology, Dr. Desai with Nephr ology. Admitting Diagnoses: 1.Chest pain. 2.Hypertension. 3.Asthma. 4.Diabetes mellitus type 2 with hyperglycemia with long-term use of insulin. 5.End-stage renal disease, on hemodialysis. 6.Chronic diastolic heart failure. 7.Gout. 8.Diabetic heel ulcer on the left. Discharge Diagnoses: 1.Chest pain, acute coronary syndrome ruled out. Stress test negative. 2.Left heel diabetic foot ulcer, status post debridement by Dr. Wilcox. Wound culture pending at this time. No WBCs or organisms seen on Gram stain. 3.Hypotension, improved. 4.End-stage renal disease, on hemodialysis. 5.Diabetes mellitus type 2 with hyperglycemia with chronic kidney dysfunction with long-term use of insulin. 6.Asthma. 7.Left heel wound diabetic ulcer, osteomyelitis ruled out with MRI. 8.Chronic diastolic heart failure. 9.Gout. 10.History of essential hypertension. Hospital Course: The patient is a 63-year-old female, came in after having chest pain during dialysi s. The patient was hypotensive after receiving nitro at the dialysis center. She was admitted for c hest pain, rule out ACS. Her cardiac enzymes were negative. EKG did not show any changes. Cardiolo gy was consulted and the patient had a nuclear stress test done, which was negative, did not show any stress-induced ischemia. The patient was found to have diabetic foot ulcer. The wound was necrotic and x-ray was done, which did not show any free air. MRI was done to rule out osteomyelitis, which was negative. Dr. Wilcox with General Surgery was consulted and the patient was taken to the OR fo r debridement. The patient was started on IV antibiotics. Wound cultures were obtained. The patien t did well postoperatively. The patient was then cleared for discharge from procurement consultant's standpoint. She no longer had any chest pain. Her wound had been debrided. She was afebrile. Her WBC count w as normal. Blood pressure was stable. The patient did receive dialysis on the day of the procedure, which was her regular dialysis day. The patient was then sent back to the [facility] in stable co ndition. Activity: Fall precautions. Followup: Follow up with primary care physician in 2-3 days. Follow up with urologic nurse, Dr. Pito butler in 2 weeks. Follow up with community theater actor, Dr. Lloyd in 2 weeks. Follow up with nel Parham in 7 to 10 days for wound check. Return to ER for worsening condition. Diet: Renal, diabetic diet. Medications: As per medication reconciliation list. Physical Examination: General: Awake, alert, oriented, no acute distress. CV: S1, S2. No murmurs. Respiratory: Moving air well bilaterally. Gastrointestinal: Abdomen is soft, nontender, nondistended. Positive bowel sounds. Extremities: No clubbing, cyanosis. Trace edema in the left foot. Skin: The patient has incision site and is clean, dry, and intact on the left foot. Neurologic: Nonfocal. SA/MODL Voice ID: [id number] Report ID: [id number]
--- NOTE | 2018-06-10 18:08 | OP ---
Date of Procedure: 06/10/2018 Surgeon: Trevor Wilcox MD Preoperative Diagnosis: Left heel necrotic diabetic ulcer. Postoperative Diagnosis: Left heel necrotic diabetic ulcer. Procedure: Excisional debridement of subcutaneous of left heel necrotic diabetic ulcer, 8 x 5 x 0.5 cm. Specimens: None. Findings: Left heel necrotic diabetic ulcer. Anesthesia: General. Indications: This is the case of a 63-year-old patient with necrotic diabetic ulcer. Fully explaine d the benefits, alternatives, and risks of debridement, which include, but are not limited to infecti on, bleeding, damage to adjacent structures, anesthesia complication, nonhealing wound, NC, and even . She also understands this may not relieve the symptoms. She might need more than one surgica l intervention. She understands the importance of offloading dressing changes and nutrition. She si gned a consent. Description Of Procedure: The patient was brought to the operating room. A time-out was called. Le ft heel was prepped and draped in the usual sterile fashion. Using a sharp 11 blade, we proceeded to subcutaneous debridement of the necrotic tissue present. The area was irrigated. Hemostasis w as obtained. The area was covered with wet-to-dry dressing. The patient tolerated the procedure well. The patient was sent to recover y in stable condition. MAURY/HERIBERTO Voice ID: [id number] Report ID: [id number]
[2018-06-10] MEDS: ATORVASTATIN 40 MG TAB PO SCH (21:29)
[2018-06-10] MEDS: ENOXAPARIN 30 MG/0.3 ML SQ SCH (21:29)
[2018-06-10] MEDS: Meropenem 500 MG in NA CHLORIDE 0.9% 100 ML IV SCH (21:35)
--- NOTE | 2018-06-10 21:41 | RAD REPORT ---
EXAM DESCRIPTION: RAD - Thoracic Spine Ap/Lat - 06/10/2018 9:11 pm CLINICAL HISTORY: Back pain FINDINGS: The alignment of the thoracic spine is satisfactory. No fracture is seen. The bones are osteoporotic A tube overlies the visualized abdomen. It is uncertain this is overlying artifact or within the jose luis ent.
[2018-06-11] MEDS: LEVOTHYROXINE SOD 0.05 MG TABLET PO SCH (05:26)
[2018-06-11] MEDS: ACETAMINOPHEN 500 MG TAB PO PRN (05:28)
[2018-06-11] MEDS: INSULIN -REGULAR HUMAN 50 UNIT/0.5 ML ML SQ SCH (07:30)
[2018-06-11 08:04] VITALS: BP 119/60; TEMP 97.1
[2018-06-11 08:27] VITALS: O2SAT 95
[2018-06-11] MEDS: PREGABALIN 75 MG CAP PO SCH (08:46)
[2018-06-11] MEDS: DOCUSATE NA 100 MG CAP PO SCH (08:46)
[2018-06-11] MEDS: INSULIN DETEMIR 100 UNIT/1 ML INSULIN SQ SCH (08:46)
[2018-06-11] MEDS: HYDRALAZINE HCL 10 MG TABLET PO SCH (08:47)
[2018-06-11] MEDS: CARVEDILOL 12.5 MG TAB PO SCH (08:47)
[2018-06-11] MEDS: ASPIRIN EC 81 MG TAB PO SCH (08:47)
[2018-06-11] MEDS: NIFEDIPINE XL 60 MG TABLET PO SCH (08:47)
[2018-06-11] MEDS: FUROSEMIDE 40 MG TABLET PO SCH (08:47)
[2018-06-11] MEDS: Meropenem 500 MG in NA CHLORIDE 0.9% 100 ML IV SCH (08:48)
[2018-06-11] MEDS: COLLAGENASE 30 GM OINTMENT TOP SCH (08:49)
--- NOTE | 2018-06-11 13:00 | PN ---
Date of Progress Note: 06/10/2018 Subjective: The patient doing well. No nausea. No vomiting. The patient was admitted with chest p ain, foot infection. Physical Examination: Vital Signs: Blood pressure 119/60, pulse of 91. Chest: Clear to auscultation. Heart: S1, S2. Regular. Abdomen: Soft, nontender. Extremities: No edema. Laboratory Data: H and H 9.8/30.6. Sodium 139, potassium 3.9, bicarb 26, BUN 42, creatinine 5.2, ca lcium 8.5. The patient had dialysis. We managed to remove 2 L. Assessment And Plan: 1.End-stage renal disease. Normal volume. Continue dialysis. Scheduled TTS this Wednesday. 2.Hypertension, controlled, optimal. Continue current medication. 3.Chest pain. Coronary artery disease acute has been ruled out. We will follow up with Cardiology. 4.Foot infection. Continue current antibiotic. We will follow up with the Primary. 5.Diabetes, as by Primary. Laboratory Data: H and H 10.2/30.8, was 9.8/30.6. Sodium 139, potassium 3.9, bicarb 26, BUN 42, cre atinine 5.2, calcium 8.5. Current Medications: Include: 1.Albumin. 2.Aspirin. 3.Atorvastatin. 4.Carvedilol 12.5. 5.Epogen. 6.Lasix 40 daily. 7.Hydralazine 10 b.i.d. 8.Levothyroxine. 9.Meropenem. 10.Nifedipine. 11.Lyrica with vancomycin. MARK Voice ID: [id number] Report ID: [id number]
== END 2018-06-11 10:42 ==
LOC: ER 15:05 → ERHOLD 17:46 → 4TH 20:11
PROVIDERS: ADMIT Family Medicine; ATTEND Family Medicine
PROC: 5A1D70Z Performance of Urinary Filtration, Intermittent, Less than 6 Hours Per Day (ICD-10-PCS; 2018-06-10)
PROC: 0JBR0ZZ Excision of Left Foot Subcutaneous Tissue and Fascia, Open Approach (ICD-10-PCS; principal; 2018-06-10 14:30)
DX: R07.9 Chest pain, unspecified (principal); I13.2 Hypertensive heart and chronic kidney disease with heart failure and with stage 5 chronic kidney disease, or end stage renal disease; E11.22 Type 2 diabetes mellitus with diabetic chronic kidney disease; E11.65 Type 2 diabetes mellitus with hyperglycemia; N18.6 End stage renal disease; I50.32 Chronic diastolic (congestive) heart failure; I95.9 Hypotension, unspecified; J45.909 Unspecified asthma, uncomplicated; M10.9 Gout, unspecified; E11.621 Type 2 diabetes mellitus with foot ulcer; L97.429 Non-pressure chronic ulcer of left heel and midfoot with unspecified severity; Z79.4 Long term (current) use of insulin; Z79.82 Long term (current) use of aspirin; Z88.0 Allergy status to penicillin
CPT/HCPCS: 36415; 71045; 72070; 78452; 80048; 80061; 80076; 80202; 82550; 82553; 82962; 83735; 83880; 84484; 85025; 85610; 85730; 87070; 87077; 87186; 87205; 90935; 93005; 93017; 94760; 99285; A9500; G0378; J1650; J2785; J3370; J3590; Q4081

== ENCOUNTER 2018-11-20 14:14 | Inpatient (IN) | payer MEDICAID ==
--- OUTSIDE RECORDS SUMMARY | 2018-11-20 14:18 | XMS REPORT ---
:1955 [facility] Organization [facility] Address [address] [place] [address] Care Team Providers Name Role Phone ANDRES [...] Negative (qualifier Negative value) CBC WITH AUTO [id number] 07:16:00 Test Item Value Reference Range Comments [...] 1.0-3.0 IG% (test code=IG%) 1.4 % 0.0-0.4 [id number] 07:13:00 Test Item Value Reference Range Comments [...] mL/min/1.73m\\S\\2 EGFR if Non- 11 Estimated Glomerular [place] (test mL/min/1.73m\\S\\2 Filtration Rate (eGFR) code=EGFRNA) Reference [...] management of chronic kidney failure. TYPE & [id number] 15:35:00 Test Item Value Reference Range Comments ABO Blood Type (test code=ABO) A Rh (test code=RH) Negative Antibody Screen (test code=ABSCR) Negative Negative ARMBAND# (test code=ARMBAND) FF 84 337 [id number] 13:49:00 Test Item Value Reference Range Comments [...] mL/min/1.73m\\S\\2 EGFR if Non- 10 Estimated Glomerular [place] (test mL/min/1.73m\\S\\2 Filtration Rate (eGFR) code=EGFRNA) Reference [...] management of chronic kidney failure. er4PT AND [id number] 14:13:00 Test Item Value Reference Range Comments Protime (test code=PT) 9.8 seconds 9.0-11.9 INR (test code=INR) 1.0 0.9-1.1 INR results are intended ONLY to monitor Oral Anticoagulant therapy in stablized patients. The INR Therapeutic Range is 2.0 - 3.0 Patients with a mechanical heart, the INR Range is 2.5 - 3.5 [id number] 14:13:00 Test Item Value Reference Range Comments aPTT (test code=PTT) 28.2 seconds 23.0-33.0 CBC WITH AUTO [id number] 13:39:00 Test Item Value Reference Range Comments [...] IG% (test code=IG%) 1.7 % 0.0-0.4 AUTO [id number] 13:25:00 Test Item Value Reference Range Comments [...] mL/min/1.73m\\S\\2 EGFR if Non- 10 Estimated Glomerular [place] (test mL/min/1.73m\\S\\2 Filtration Rate (eGFR) code=EGFRNA) Reference [...] management of chronic kidney failure. TYPE & [id number] 12:40:00 Test Item Value Reference Range Comments ABO Blood Type (test code=ABO) A Rh (test code=RH) Negative Antibody Screen (test code=ABSCR) Negative Negative ARMBAND# (test code=ARMBAND) FF 12 500 [id number] 06:38:00 Test Item Value Reference Range Comments [...] mL/min/1.73m\\S\\2 EGFR if Non- 12 Estimated Glomerular [place] (test mL/min/1.73m\\S\\2 Filtration Rate (eGFR) code=EGFRNA) Reference [...] of chronic kidney failure. CBC WITH AUTO [id number] 06:35:00 Test Item Value Reference Range Comments [...] (test code=IG%) 0.4 % 0.0-0.4 CBC AUTO [id number] 06:33:00 Test Item Value Reference Range Comments aPTT (test code=PTT) 29.4 seconds 23.0-33.0 PT AND [id number] 06:33:00 Test Item Value Reference Range Comments Protime (test code=PT) 10.1 seconds 9.0-11.9 INR (test code=INR) 1.0 0.9-1.1 INR results are intended ONLY to monitor Oral Anticoagulant therapy in stablized patients. The INR Therapeutic Range is 2.0 - 3.0 Patients with a mechanical heart, the INR Range is 2.5 - 3.5 [id number] 10:05:00 Test Item Value Reference Range Comments [...] mL/min/1.73m\\S\\2 EGFR if Non- 15 Estimated Glomerular [place] (test mL/min/1.73m\\S\\2 Filtration Rate (eGFR) code=EGFRNA) Reference [...] PLATELET CLUMPING. THIS IS A HEMOGRAM ONLYRBC, [id number] 03:00:00 Test Item Value Reference Range Comments RBC Unit (test code=RBCUNIT) Released for Transfusion RBC, [id number] 03:00:00 Test Item Value Reference Range Comments RBC Unit (test code=RBCUNIT) Released for Transfusion CROSSMATCH x 12:53:00Completed: Compatible Ready to TransfuseTYPE & amp; [id number] 12:52:00 Test Item Value Reference Range Comments ABO Blood Type (test code=ABO) A Rh (test code=RH) Negative Antibody Screen (test code=ABSCR) Negative Negative ARMBAND# (test code=ARMBAND) FF 12 500 HEP B SURFACE [id number] 07:50:00 Test Item Value Reference Range Comments [...] Negative (qualifier Negative value) CBC WITH AUTO [id number] 07:17:00 Test Item Value Reference Range Comments [...] called to Gary DIAZ RN. K3 by [id number] on 08/10/2017 07:16 AM. Results were readback by Gary DIAZ RN., [id number] 07:17:00 Test Item Value Reference Range Comments [...] mL/min/1.73m\\S\\2 EGFR if Non- 13 Estimated Glomerular [place] (test mL/min/1.73m\\S\\2 Filtration Rate (eGFR) code=EGFRNA) Reference Intervals Decision Points for 18 years and older and average body mass: >=60 Does not exclude kidney disease. 30 - 59 Suggests moderate chronic kidney disease and indicates the need for further investigation including assessment of proteinuria and cardiovascular factors. < 30 Usually indicates a need for referral for assessment and management of chronic kidney failure. [id number] 19:07:00 Test Item Value Reference Range Comments aPTT (test code=PTT) 29.9 seconds 23.0-33.0 PT AND [id number] 19:07:00 Test Item Value Reference Range Comments Protime (test code=PT) 10.1 seconds 9.0-11.9 INR (test code=INR) 1.0 0.9-1.1 INR results are intended ONLY to monitor Oral Anticoagulant therapy in stablized patients. The INR Therapeutic Range is 2.0 - 3.0 Patients with a mechanical heart, the INR Range is 2.5 - 3.5 [id number] 18:35:00 Test Item Value Reference Range Comments [...] mL/min/1.73m\\S\\2 EGFR if Non- 13 Estimated Glomerular [place] (test mL/min/1.73m\\S\\2 Filtration Rate (eGFR) code=EGFRNA) Reference [...] of chronic kidney failure. CBC WITH AUTO [id number] 18:19:00 Test Item Value Reference Range Comments [...] IG% (test code=IG%) 0.4 % 0.0-0.4 AUTO [id number] 17:15:00 Test Item Value Reference Range Comments [...] (test code=BGCTHB) 8.3 gm/dl 11.5-17.4 O2Hb (test code=HMHF3RF) 94.9 % 95.0-99.0 COHb (test code=BGFCOHB) <2.8 [...] Notified (test code=BGTMNOTIFIED) 15:59 O2 Device (test code=[id number]) Room Air Instrument ID (test code=BGINSTRID) [id number] Reported By (test code=BGREPORTEDBY) ROSALINO HUFF [id number] 09:50:00 Test Item Value Reference Range Comments [...] mL/min/1.73m\\S\\2 EGFR if Non- 14 Estimated Glomerular [place] (test mL/min/1.73m\\S\\2 Filtration Rate (eGFR) code=EGFRNA) Reference [...] values were called to Tracy AGARWAL by [id number] on 08/07/2017 09:41 AM. Results were read back by Tracy AGARWAL.CULTURE, [id number] 07:53:00Specimen : AbscessCollected: 07/26/2017 20:47 Status: Final [...] 09:58: Culture Result (Prelim) (Prelim) Many DiptheroidsCULTURE, [id number] 06:50:00To start 15mins after 1st cultureSpecimen: BloodCollected: 07/24/2017 00:38 Status: Final Last Updated: 07/29/2017 06: 49 (1) To start 15mins after 1st culture Culture Result (Final) (Final ) No Growth After 5 DaysCULTURE, [id number] 06:50:00Specimen: BloodCollected: 07/24/2017 00:18 Status: Final Last Updated: 07/29/2017 06: 49 Culture Result (Final) (Final) No Growth After 5 DaysED RAPID [id number] 04:24:00 Test Item Value Reference Range Comments CKMB (BIOSITE) (test code=BIOCKMB) <1.0 ng/ml 0.0-2.5 TROPONIN-I (BIOSITE) (test code=BIOTROP) <0.050 ng/ml 0.000-0.050 MYOGLOBIN (BIOSITE) (test code=BIOMYO) 166.0 ng/ml 0.0-170.0 SERIAL INSTRUMENT NUMBER (test code=SERIAL) [id number] ED RAPID [id number] 01:05:00 Test Item Value Reference Range Comments CKMB (BIOSITE) (test code=BIOCKMB) <1.0 ng/ml 0.0-2.5 TROPONIN-I (BIOSITE) (test code=BIOTROP) <0.050 ng/ml 0.000-0.050 MYOGLOBIN (BIOSITE) (test code=BIOMYO) 203.0 ng/ml 0.0-170.0 SERIAL INSTRUMENT NUMBER (test code=SERIAL) [id number] 01:02:00 Test Item Value Reference Range Comments [...] mL/min/1.73m\\S\\2 EGFR if Non- 16 Estimated Glomerular [place] (test mL/min/1.73m\\S\\2 Filtration Rate (eGFR) code=EGFRNA) Reference [...] chronic kidney failure. ER 8CBC WITH AUTO [id number] 00:58:00 Test Item Value Reference Range Comments [...] 1.0-3.0 IG% (test code=IG%) 0.5 % 0.0-0.4 [id number] 13:31:00 Test Item Value Reference Range Comments [...] mL/min/1.73m\\S\\2 EGFR if Non- 11 Estimated Glomerular [place] (test mL/min/1.73m\\S\\2 Filtration Rate (eGFR) code=EGFRNA) Reference [...] of chronic kidney failure. CBC WITH AUTO [id number] 13:08:00 Test Item Value Reference Range Comments [...] 0 /100WBC 0-2 code=NRBC_AUTO) HEP B SURFACE [id number] 15:00:00 Test Item Value Reference Range Comments [...] to HBV infection. HEPATITIS B CORE AB, [id number] 10:03:00 Test Item Value Reference Range Comments HEPATITIS B CORE AB TOTAL (test code=HEPBCORE) 2.97 Negative [id number] 09:16:00 Test Item Value Reference Range Comments [...] mL/min/1.73m\\S\\2 EGFR if Non- 13 Estimated Glomerular [place] (test mL/min/1.73m\\S\\2 Filtration Rate (eGFR) code=EGFRNA) Reference [...] management of chronic kidney failure. ERYTHROCYTE SED [id number] 09:16:00 Test Item Value Reference Range Comments [...] 50-999 years old=0-25 mm/hr CBC WITH AUTO [id number] 08:46:00 Test Item Value Reference Range Comments [...] IG% (test code=IG%) 0.7 % 0.0-0.4 LIPASE, [id number] 18:05:00 Test Item Value Reference Range Comments Lipase (test code=LIPA) 42 U/L 8-223 AMYLASE, [id number] 18:05:00 Test Item Value Reference Range Comments Amylase (test code=AMYL) 53 U/L 12-103 C-REACTIVE [id number] 17:24:00 Test Item Value Reference Range Comments C REACTIVE PROTEIN (test code=CRP) 0.7 ng/ml 0.0-0.9 [id number] 09:07:00 Test Item Value Reference Range Comments [...] mL/min/1.73m\\S\\2 EGFR if Non- 10 Estimated Glomerular [place] (test mL/min/1.73m\\S\\2 Filtration Rate (eGFR) code=EGFRNA) Reference [...] of chronic kidney failure. CBC WITH AUTO [id number] 08:35:00 Test Item Value Reference Range Comments [...] % 0.0-0.4 CBC AUTO diffCBC WITH AUTO [id number] 05:58:00 Test Item Value Reference Range Comments [...] 1.0-3.0 IG% (test code=IG%) 0.8 % 0.0-0.4 [id number] 05:41:00 Test Item Value Reference Range Comments [...] mL/min/1.73m\\S\\2 EGFR if Non- 12 Estimated Glomerular [place] (test mL/min/1.73m\\S\\2 Filtration Rate (eGFR) code=EGFRNA) Reference Intervals Decision Points for 18 years and older and average body mass: >=60 Does not exclude kidney disease. 30 - 59 Suggests moderate chronic kidney disease and indicates the need for further investigation including assessment of proteinuria and cardiovascular factors. < 30 Usually indicates a need for referral for assessment and management of chronic kidney failure. [id number] 05:41:00 Test Item Value Reference Range Comments Magnesium (test code=MG) 2.0 mg/dl 1.6-2.3 HEP B SURFACE [id number] 08:16:00 Test Item Value Reference Range Comments [...] (test code=HBSAG) Negative (qualifier Negative value) GLYCOSALATED [id number] 01:37:00 Test Item Value Reference Range Comments [...] ARE NOT INTERCHANGEABLE BETWEEN METHODS. 12-06-2006 FREE [id number] 01:14:00 Test Item Value Reference Range Comments Free T4 (test code=FT4) 1.24 ng/dl 0.78-2.19 CORONARY [id number] 00:54:00 Test Item Value Reference Range Comments [...] Average vLDL (test code=VLDL) 29 mg/dl 20-50 [id number] 00:52:00 Test Item Value Reference Range Comments Magnesium (test code=MG) 2.0 mg/dl 1.6-2.3 [id number] 00:52:00 Test Item Value Reference Range Comments [...] mL/min/1.73m\\S\\2 EGFR if Non- 17 Estimated Glomerular [place] (test mL/min/1.73m\\S\\2 Filtration Rate (eGFR) code=EGFRNA) Reference [...]
[2018-11-20] MEDS ORDERED: ACETAMINOPHEN 325 MG TABLET ONE (14:51)
[2018-11-20] MEDS ORDERED: NA CHLORIDE 0.9% 500 ML ONE ×3 (15:18→23:03)
[2018-11-20] MEDS ORDERED: PIPER/TAZO/NS 3.375gm 3.375 GM/100 ML BAG ONE (15:18)
[2018-11-20 15:35] LABS: Absolute Lymphocytes (CBC) 0.7 K/uL (0.7-4.9); Absolute Monocytes 0.7 K/uL (0.1-1.3); Basophils % 0.2 % (0-1.3); Eosinophils % 0.2 % (0-4.4); Hematocrit 32.4 % (36.0-45.0); Lymphocytes % 2.8 % (15.3-44.8); MPV 8.8 fL (7.6-11.3); Monocytes % 2.7 % (3.3-12.3)
[2018-11-20 15:36] LABS: Protime INR 1.17
[2018-11-20 16:27] LABS: Albumin 3.3 g/dL (3.4-5.0); Bilirubin Direct 0.2 mg/dL (0-0.2); Bilirubin Total 0.4 mg/dL (0.2-1.0); Protein, Total 7.6 g/dL (6.4-8.2)
[2018-11-20 16:49] LABS: Urine Bacteria >50 /HPF (<20); Urine Culture Reflex Order REFLEXED
--- NOTE | 2018-11-20 16:58 | RAD REPORT ---
EXAM DESCRIPTION: RAD - Chest Single View - 11/20/2018 4:03 pm CLINICAL HISTORY: FEVER Chest pain. COMPARISON: Chest Single View dated 06/08/2018; Chest Single View dated 07/21/2017; Chest Single View dated 06/23/2017; Chest Single View dated 06/22/2017 FINDINGS: Portable technique limits examination quality. Mild interstitial pulmonary edema is present. The heart is normal in size. No displaced fractures.
--- NOTE | 2018-11-20 17:00 | EDPHYS ---
Physician Documentation [facility] Name: Alysa Mayes Age: 63 yrs Sex: Female : 1955 Arrival Date: 11/20/2018 Time: 14:16 Bed 4 Private MD: ED Physician Jose Mensah HPI: 11/20 15:28 This 63 yrs old Black Female presents to ER via EMS with complaints of Fever, Leg ps1 Swelling. 15:28 patient brought in for hypoxia, missed dialysis, fever, and leg swelling. Additionally ps1 has been hypersomnolent and not feeling well.. States that she had dialysis last on Wednesday. Normally M,W,F. From [facility]. . Historical: - Allergies: 14:26 amlodipine; hj 14:26 Amoxicillin; hj 14:26 PENICILLINS; hj - Home Meds: 14:26 atorvastatin 40 mg Oral tab [Active]; Bactroban 2 % Topical oint 3 times per day hj [Active]; furosemide 40 mg Oral tab 1 tab 2 times per day [Active]; Levemir 100 unit/mL subcutaneous soln 12 unit twice a day [Active]; Lyrica Oral 1 cap [Active]; [place] 7.5-325 mg Oral tab 1 tab every 4 hours [Active]; Renagel 800 mg Oral tab 1 tab 3 times per day [Active]; Synthroid 50 mcg Oral tab 1 tab once daily [Active]; [place] 8.4 gram oral pwpk 1 packet once daily [Active]; zinc sulfate 220 mg Oral tab [Active]; - PMHx: 14:26 Anemia; CHF; COPD; Diabetes - NIDDM; Dialysis; Hypertension; hj - PSHx: 14:26 dialysis port; hj - Immunization history:: Adult Immunizations up to date. - Social history:: Smoking status: Patient/guardian denies using tobacco, Patient/guardian denies using alcohol. - Ebola Screening: : Patient negative for fever greater than or equal to 101.5 degrees Fahrenheit, and additional compatible Ebola Virus Disease symptoms. ROS: 15:28 Eyes: Negative for injury, pain, redness, and discharge, ENT: Negative for injury, ps1 pain, and discharge, Cardiovascular: Negative for chest pain, palpitations, and edema, Abdomen/GI: Negative for abdominal pain, nausea, vomiting, diarrhea, and constipation. 15:28 MS/Extremity: Negative for injury and deformity, Skin: Negative for injury, rash, and discoloration, Neuro: Negative for headache, weakness, numbness, tingling, and seizure. 15:28 Constitutional: Positive for chills, fatigue, fever. 15:28 Respiratory: Positive for cough, orthopnea. Exam: 15:28 Constitutional: This is a well developed, well nourished patient who is awake, alert, ps1 and in no acute distress. Head/Face: Normocephalic, atraumatic. Eyes: Pupils equal round and reactive to light, extra-ocular motions intact. Lids and lashes normal. Conjunctiva and sclera are non-icteric and not injected. Chest/axilla: Normal chest wall appearance and motion. Nontender with no deformity. No lesions are appreciated. 15:28 Cardiovascular: Rate: tachycardic, Rhythm: regular, Pulses: Dialysis shunt: 15:28 Skin: Appearance: normal except for affected area, edematous. 15:28 Neuro: Orientation: is normal, Mentation: responsive to voice lucid, able to follow commands. Vital Signs: 14:19 BP 96 / 53; Pulse 117; Resp 20; Temp 102.6(O); Pulse Ox 97% on R/A; Weight 90.72 kg; hj Height 5 ft. 7 in. (170.18 cm); Pain 6/10; 14:45 BP 99 / 40; Pulse 129; Resp 18; Pulse Ox 98% on R/A; hj 15:20 BP 99 / 56; Pulse 125; Resp 18; Pulse Ox 97% on R/A; hj 15:24 BP 101 / 50; Pulse 127; Resp 18; Pulse Ox 98% on R/A; hj 15:34 BP 98 / 73; Pulse 125; Resp 18; Temp 101.2; Pulse Ox 98% on R/A; hj 16:10 BP 73 / 35; Pulse 125; Resp 18; Temp 102.8(O); Pulse Ox 97% on R/A; hj 16:15 BP 66 / 29; Pulse 124; Resp 18; Pulse Ox 100% on 2 lpm NC; hj 16:23 BP 119 / 74; Pulse 123; Resp 18; Pulse Ox 100% on 2 lpm NC; hj 16:33 BP 118 / 70; Pulse 121; Resp 18; Temp 100.9(O); Pulse Ox 100% 2 lpm ; hj 16:39 BP 119 / 73; Pulse 120; Resp 18; Pulse Ox 100% on 2 lpm NC; hj 16:52 BP 88 / 62; Pulse 121; Resp 18; Temp 99.6(O); Pulse Ox 100% on 2 lpm NC; hj 16:55 BP 125 / 71; Pulse 125; Resp 18; Pulse Ox 100% on 2 lpm NC; hj 17:25 BP 106 / 59; Pulse 128; Resp 18; Pulse Ox 100% on 2 lpm NC; hj 17:34 BP 116 / 67; Pulse 128; Resp 18; Temp 101.7(O); Pulse Ox 100% on 2 lpm NC; hj 18:02 BP 102 / 68; Pulse 127; Resp 18; Temp 99.9(O); Pulse Ox 100% on 2 lpm NC; hj 14:19 Body Mass Index 31.32 (90.72 kg, 170.18 cm) hj 16:10 MD aware; awaiting orders; MDM: 15:09 Patient medically screened. [facility] 11/20 14:34 Order name: Basic Metabolic Panel; Complete Time: 17:26 11/20 14:34 Order name: Blood Culture Adult (2) 11/20 14:34 Order name: CBC with Diff 11/20 14:34 Order name: Ckmb; Complete Time: 17:26 11/20 14:34 Order name: CPK; Complete Time: 17:26 11/20 14:34 Order name: Lactate; Complete Time: 15:50 11/20 14:34 Order name: LFT's; Complete Time: 17:26 11/20 14:34 Order name: Lipase; Complete Time: 17:26 11/20 14:34 Order name: Procalcitonin; Complete Time: 16:52 11/20 14:34 Order name: Protime (+inr); Complete Time: 15:42 11/20 14:34 Order name: Ptt, Activated; Complete Time: 15:42 11/20 14:34 Order name: Troponin (emerg Dept Use Only); Complete Time: 17:26 11/20 14:34 Order name: Urine Microscopic Only; Complete Time: 16:52 11/20 14:45 Order name: Flu; Complete Time: 15:42 ps1 11/20 14:34 Order name: Chest Single View XRAY; Complete Time: 17:14 11/20 14:34 Order name: Accucheck; Complete Time: 14:36 11/20 14:34 Order name: Cardiac monitoring; Complete Time: 14:36 11/20 14:34 Order name: EKG - Nurse/Tech; Complete Time: 14:36 11/20 14:34 Order name: IV Saline Lock - Large Bore; Complete Time: 15:15 11/20 14:34 Order name: Labs collected and sent; Complete Time: 15:15 11/20 14:34 Order name: O2 Per Protocol; Complete Time: 14:36 11/20 14:34 Order name: O2 Sat Monitoring; Complete Time: 14:36 11/20 16:19 Order name: Urine Dipstick--Ancillary (enter results) 11/20 16:57 Order name: Urine Culture [facility] 11/20 17:11 Order name: CONS Physician Consult [facility] 11/20 14:34 Order name: Urine Dipstick-Ancillary (obtain specimen); Complete Time: 16:19 iw Administered Medications: 15:15 Drug: Zosyn 3.375 grams Route: IVPB; Infused Over: 60 mins; Site: left upper arm; hj 17:27 Follow up: IV Status: Completed infusion hj 15:16 Not Given (MD ordered 500 ml NS bolus; dialysis pt;): NS 0.9% (30 ml/kg) 30 ml/kg IV at hj bolus once; Sepsis Protocol 15:16 Drug: NS 0.9% 500 ml Route: IV; Rate: bolus; Site: left upper arm; hj 17:27 Follow up: IV Status: Completed infusion hj 15:53 Drug: NS 0.9% 500 ml Route: IV; Rate: bolus; Site: left upper arm; hj 17:27 Follow up: IV Status: Completed infusion hj 17:40 Drug: Motrin 800 mg Route: PO; hj 17:41 Follow up: Response: No adverse reaction hj Disposition: 11/20/18 17:00 Hospitalization ordered by Radha Lord for Inpatient Admission. Preliminary diagnosis are Sepsis, Acute cystitis without hematuria, elevated troponin. - Bed requested for Intensive Care Unit. - Status is Inpatient Admission. hj - Condition is Serious. - Problem is new. - Symptoms have improved. UTI on Admission? Yes Signatures: Dispatcher [employer] Lizeth Cabrera RN RN iw Trevor Gray RN RN hj Jose Mensah MD MD ps1 Corrections: (The following items were deleted from the chart) 17:43 17:00 Hospitalization Ordered by Radha Lord MD for Inpatient Admission. Preliminary iw diagnosis is Sepsis; Acute cystitis without hematuria; elevated troponin. Bed requested for Intensive Care Unit. Status is Inpatient Admission. Condition is Serious. Problem is new. Symptoms have improved. UTI on Admission? Yes. ps1 18:30 17:43 11/20/2018 17:00 Hospitalization Ordered by Radha Lord MD for Inpatient hj Admission. Preliminary diagnosis is Sepsis; Acute cystitis without hematuria; elevated troponin. Bed requested for Intensive Care Unit. Status is Inpatient Admission. Condition is Serious. Problem is new. Symptoms have improved. UTI on Admission? Yes. iw
--- NOTE | 2018-11-20 17:00 | ER ---
Nurse's Notes [facility] Name: Alysa Mayes Age: 63 yrs Sex: Female : 1955 Arrival Date: 11/20/2018 Time: 14:16 Bed 4 Private MD: Diagnosis: Sepsis;Acute cystitis without hematuria;elevated troponin Presentation: 11/20 14:17 Presenting complaint: EMS states: from [facility], pt was complaining of not hj feeling well, dialysis pt MWF, shes supposed to get dialysis today Wednesday but pt decided not to get one, pt is not feeling well, per report, pt BP is low and O2 sat is low; reports vomiting x 5 today; T- 103; HR- 120's, O2 sat 92% on RA; 95% at 2L; A\\T\\O x3;. Transition of care: patient was not received from another setting of care. Onset of symptoms was November 20, 2018. Risk Assessment: Do you want to hurt yourself or someone else? Patient reports no desire to harm self or others. Initial Sepsis Screen: Does the patient meet any 2 criteria? RR > 20 per min. Temp <36.0*C (96.8*F)) or > 38.3*C (100.9*F). Systolic BP < 90 mmHg. Altered Mental Status. HR > 90 bpm. Does the patient have a suspected source of infection? Yes:. Care prior to arrival: None. 14:17 Method Of Arrival: EMS: [facility] 14:17 Acuity: LESLEE 3 hj Triage Assessment: 14:21 General: Appears in no apparent distress. uncomfortable, Behavior is cooperative, hj appropriate for age, drowsy. Pain: Complains of pain in body. Historical: - Allergies: 14:26 amlodipine; hj 14:26 Amoxicillin; hj 14:26 PENICILLINS; hj - Home Meds: 14:26 atorvastatin 40 mg Oral tab [Active]; Bactroban 2 % Topical oint 3 times per day hj [Active]; furosemide 40 mg Oral tab 1 tab 2 times per day [Active]; Levemir 100 unit/mL subcutaneous soln 12 unit twice a day [Active]; Lyrica Oral 1 cap [Active]; [place] 7.5-325 mg Oral tab 1 tab every 4 hours [Active]; Renagel 800 mg Oral tab 1 tab 3 times per day [Active]; Synthroid 50 mcg Oral tab 1 tab once daily [Active]; Veltassa 8.4 gram oral pwpk 1 packet once daily [Active]; zinc sulfate 220 mg Oral tab [Active]; - PMHx: 14:26 Anemia; CHF; COPD; Diabetes - NIDDM; Dialysis; Hypertension; hj - PSHx: 14:26 dialysis port; hj - Immunization history:: Adult Immunizations up to date. - Social history:: Smoking status: Patient/guardian denies using tobacco, Patient/guardian denies using alcohol. - Ebola Screening: : Patient negative for fever greater than or equal to 101.5 degrees Fahrenheit, and additional compatible Ebola Virus Disease symptoms. Screenin:21 Abuse screen: Denies threats or abuse. Denies injuries from another. Nutritional hj screening: No deficits noted. Tuberculosis screening: No symptoms or risk factors identified. Fall Risk Fall in past 12 months (25 points). Secondary diagnosis (15 points). Assessment: 14:15 Reassessment: see triage for assessment;. hj 15:19 Reassessment: Patient and/or family updated on plan of care and expected duration. Pain hj level reassessed. Patient is alert, oriented x 3, equal unlabored respirations, skin warm/dry/pink. awaiting results and POC;. 15:45 Reassessment: pt cleaned and changed diaper; had a tiny BM;. hj 16:17 Reassessment: Patient and/or family updated on plan of care and expected duration. Pain hj level reassessed. Patient is alert, oriented x 3, equal unlabored respirations, skin warm/dry/pink. BP monitored, MD aware of V/S; 2nd bolus of NS running, Zosyn running; pt states "i feel better but im feel weak";. 16:55 Reassessment: Patient and/or family updated on plan of care and expected duration. Pain hj level reassessed. Patient is alert, oriented x 3, equal unlabored respirations, skin warm/dry/pink. awaiting POC;. 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 hj 18:04 Reassessment: called report to TIM Montero; requested to bring pt up around 1815. hj 18:07 Reassessment: per sec Geri, will call 's Prema and Miranda, for consult;. hj Vital Signs: 14:19 BP 96 / 53; Pulse 117; Resp 20; Temp 102.6(O); Pulse Ox 97% on R/A; Weight 90.72 kg; hj Height 5 ft. 7 in. (170.18 cm); Pain 6/10; 14:45 BP 99 / 40; Pulse 129; Resp 18; Pulse Ox 98% on R/A; hj 15:20 BP 99 / 56; Pulse 125; Resp 18; Pulse Ox 97% on R/A; hj 15:24 BP 101 / 50; Pulse 127; Resp 18; Pulse Ox 98% on R/A; hj 15:34 BP 98 / 73; Pulse 125; Resp 18; Temp 101.2; Pulse Ox 98% on R/A; hj 16:10 BP 73 / 35; Pulse 125; Resp 18; Temp 102.8(O); Pulse Ox 97% on R/A; hj 16:15 BP 66 / 29; Pulse 124; Resp 18; Pulse Ox 100% on 2 lpm NC; hj 16:23 BP 119 / 74; Pulse 123; Resp 18; Pulse Ox 100% on 2 lpm NC; hj 16:33 BP 118 / 70; Pulse 121; Resp 18; Temp 100.9(O); Pulse Ox 100% 2 lpm ; hj 16:39 BP 119 / 73; Pulse 120; Resp 18; Pulse Ox 100% on 2 lpm NC; hj 16:52 BP 88 / 62; Pulse 121; Resp 18; Temp 99.6(O); Pulse Ox 100% on 2 lpm NC; hj 16:55 BP 125 / 71; Pulse 125; Resp 18; Pulse Ox 100% on 2 lpm NC; hj 17:25 BP 106 / 59; Pulse 128; Resp 18; Pulse Ox 100% on 2 lpm NC; hj 17:34 BP 116 / 67; Pulse 128; Resp 18; Temp 101.7(O); Pulse Ox 100% on 2 lpm NC; hj 18:02 BP 102 / 68; Pulse 127; Resp 18; Temp 99.9(O); Pulse Ox 100% on 2 lpm NC; hj 14:19 Body Mass Index 31.32 (90.72 kg, 170.18 cm) hj 16:10 MD aware; awaiting orders; hj ED Course: 14:16 Patient arrived in ED. iw 14:16 Trevor Gray RN is Primary Nurse. hj 14:19 Triage completed. hj 14:21 Arm band placed on left wrist. hj 14:26 Patient has correct armband on for positive identification. Placed in gown. Bed in low hj position. Call light in reach. Side rails up X 1. Adult w/ patient. 14:40 Jose Mensah MD is Attending Physician. ps1 15:18 Accessed ,peripheral vein via ultrasound, utilizing static ultrasound technique using bp 18G Nexia IV Catheter per hospital protocol. Clean \\T\\ dry. Dressing intact. Good blood return. Flushes easily. 16:04 Chest Single View XRAY In Process Unspecified. EDMS 16:10 Urine collected: straight cath specimen, cloudy. hj 16:57 Radha Lord MD is Hospitalizing Provider. ps1 18:29 No provider procedures requiring assistance completed. Patient admitted, IV remains in hj place. Administered Medications: 15:15 Drug: Zosyn 3.375 grams Route: IVPB; Infused Over: 60 mins; Site: left upper arm; hj 17:27 Follow up: IV Status: Completed infusion hj 15:16 Not Given (MD ordered 500 ml NS bolus; dialysis pt;): NS 0.9% (30 ml/kg) 30 ml/kg IV at hj bolus once; Sepsis Protocol 15:16 Drug: NS 0.9% 500 ml Route: IV; Rate: bolus; Site: left upper arm; hj 17:27 Follow up: IV Status: Completed infusion hj 15:53 Drug: NS 0.9% 500 ml Route: IV; Rate: bolus; Site: left upper arm; hj 17:27 Follow up: IV Status: Completed infusion hj 17:40 Drug: Motrin 800 mg Route: PO; hj 17:41 Follow up: Response: No adverse reaction hj Outcome: 17:00 Decision to Hospitalize by Provider. ps1 18:30 Admitted to ICU accompanied by nurse, accompanied by tech, via stretcher, room ICU 7, hj with oxygen, on monitor, with chart, Report called to TIM Montero 18:30 Condition: stable 18:30 Instructed on the need for admit, Demonstrated understanding of 18:30 Patient left the ED. 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
[2018-11-20 17:18] LABS: Troponin (Emerg Dept Use Only) 0.67 ng/mL (0.0-0.045)
[2018-11-20] MEDS ORDERED: IBUPROFEN 400 MG TAB ONE (17:47)
--- NOTE | 2018-11-20 18:02 | P.HP ---
Certification for Inpatient Patient admitted to: Inpatient With expected LOS: >2 Midnights Patient will require the following post-hospital care: None Practitioner: I am a practitioner with admitting privileges, knowledge of patient current condition, hospital course, and medical plan of care. Services: Services provided to patient in accordance with Admission requirements found in Title 42 Section 412.3 of the Code of Federal Regulations Patient History Date of Service: 11/20/18 Primary Care Provider: Dr Madrid Reason for admission: Sepsis History of Present Illness: This is a 63-year-old femur with significant past medical history of hypertension, COPD, CHF, end-stage renal disease on hemodialysis, who lives at a [place] [facility] who presented to the ED complaining of having some generalized weakness fever chills that has been going on for past 1 day. Patient stated that she started having some weakness along with fever and chills at the [place] [facility] and got concerned and thus decided to come to the ER. Patient did have her day today however was not able to go there due to her weakness. Patient states that the fever has been 101-102 at the [place] [facility] and she has taken Tylenol. Patient also complains of having some increased urinary frequency and burning during urination. Patient still produces urine and states that she has been going to patient also complains of lower abdominal pain and states that it feels like spasms in her stomach. Patient denies having any chest pain shortness of breath or any other associated symptoms at this time. In the ER patient was found to have sepsis with hypotension along with elevated lactic acid and urine as a possible source of infection and thus was admitted to the hospital for further workup Allergies amoxicillin [Amoxicillin] Allergy (Verified 06/08/18 19:55) unknown Penicillins Adverse Reaction (Mild, Verified 06/08/18 19:55) itching rash amlodipine Adverse Reaction (Verified 06/08/18 19:55) Itching/Hives/Rash Home Medications: Atorvastatin Calcium 40 mg PO BEDTIME 02/17/18 Carvedilol [Coreg*] 1 tab PO BID 02/17/18 Docusate [Colace Cap*] 100 mg PO DAILY 02/17/18 Furosemide [Lasix*] 40 mg PO DAILY 02/17/18 Hydralazine [Apresoline*] 10 mg PO BID 02/17/18 Insulin Detemir [Levemir*] 12 unit SQ BID 02/17/18 Levothyroxine [Synthroid*] 50 mcg PO [id number] 02/17/18 Loperamide [Imodium*] 2 mg PO PRN PRN 02/17/18 Nifedipine Xl [Procardia XL*] 60 mg PO DAILY 02/17/18 Collagenase [Santyl Ointment*] 1 appl TOP DAILY #1 tube 02/23/18 Clonidine HCl [Catapres] 0.1 mg PO PRN PRN 06/08/18 Pregabalin [Lyrica*] 75 mg PO BID 06/08/18 Vancomycin [Vancomycin 1 Gram/250 ml Ns Ivpb] 1 gm IV AFTER EACH DIALYSIS #1 bag 06/10/18 - Past Medical/Surgical History Diabetic: Yes -: HTN -: Diabetes Mellitus Type 2 -: ESRD -: CHF, diastolic -: Gout -: COPD -: Osteomyelitis of the right foot -: Charcot arthropathy -: Right eye December 25 2014-cataract -: Left eye January 15 2015-cataract -: right groin fistula Psychosocial/ Personal History: Single, Children-2, Work-none - Family History Father -: Heart disease, Cancer Notes: prostate cancer Mother -: Heart disease, Hypertension, Diabetes, Cancer Notes: breast CA - Social History Alcohol use: No CD- Drugs: No Caffeine use: Yes Review of Systems 10-point ROS is otherwise unremarkable Physical Examination - Physical Exam General: Alert, Oriented x3, Mild distress HEENT: Atraumatic, PERRLA, Mucous membr. moist/pink, EOMI, Sclerae nonicteric Neck: Supple, 2+ carotid pulse no bruit, No LAD, Without JVD or thyroid abnormality Respiratory: Normal air movement, Crackles/rales Cardiovascular: Regular rate/rhythm, Normal S1 S2 Gastrointestinal: Normal bowel sounds, No tenderness Musculoskeletal: No tenderness Integumentary: Diabetic ulcer (Bilateral lower extremity diabetic heel ulcer. Left worse than right.) Neurological: Normal speech, Normal tone, Sensation intact, Abnormal strength Lymphatics: No axilla or inguinal lymphadenopathy - Studies Laboratory Data (last 24 hrs) 11/20/18 15:00: PT 13.8 H, INR 1.17, APTT 27.7 11/20/18 15:00: WBC 24.5 H*, Hgb 10.2 L, Hct 32.4 L, Plt Count 199 11/20/18 15:00: Sodium 137, Potassium 3.0 L, BUN 61 H, Creatinine 9.27 H*, Glucose 182 H, Total Bilirubin 0.4, AST 24, ALT 21, Alkaline Phosphatase 218 H, Lipase 61 L Microbiology Data (last 24 hrs): 11/20/18 14:55 Nasopharnyx Influenza Type A Antigen Screen - Final 11/20/18 14:55 Nasopharnyx Influenza Type B Antigen Screen - Final Assessment and Plan - Problems (Diagnosis) (1) Sepsis Current Visit: Yes Status: Acute Plan: Severe sepsis with hypotension, tachycardia and elevated lactic acid. Multifactorial at this time. Patient with history of bacteremia, UTI and diabetic ulcers -patient will be started on vancomycin and Zosyn at this time -wound culture, urine culture, x-ray pending at this time -currently patient is tachycardic hypotension resolved with IV fluids. -no IV fluids at this time for maintenance due to pulmonary edema on the chest x -ray and end-stage renal disease -will continue to monitor patient closely and admit the patient to the ICU for further care Qualifiers: Sepsis type: sepsis due to unspecified organism Qualified Code(s): A41.9 - Sepsis, unspecified organism (2) UTI (urinary tract infection) Current Visit: Yes Status: Acute Plan: See # 1 Qualifiers: Urinary tract infection type: acute cystitis Hematuria presence: without hematuria Qualified Code(s): N30.00 - Acute cystitis without hematuria (3) Diabetes mellitus Onset Date: 03/23/16 Current Visit: No Status: Chronic Plan: Insulin sliding scale at this time Qualifiers: Diabetes mellitus type: type 2 Diabetes mellitus senior living insulin use: with senior living use Diabetes mellitus complication status: with circulatory complication Diabetes mellitus complication detail: with peripheral angiopathy without gangrene Qualified Code(s): E11.51 - Type 2 diabetes mellitus with diabetic peripheral angiopathy without gangrene; Z79.4 - rib trim separator (current) use of insulin (4) CHF (congestive heart failure) Onset Date: 12/14/16 Current Visit: No Status: Chronic Plan: History of diastolic heart failure -currently stable -will resume home medication at this time Qualifiers: Heart failure type: diastolic Heart failure chronicity: chronic Qualified Code(s): I50.32 - Chronic diastolic (congestive) heart failure (5) Charcot's arthropathy associated with type 2 diabetes mellitus Onset Date: 04/23/17 Current Visit: No Status: Chronic (6) ESRD (end stage renal disease) Onset Date: 07/22/17 Current Visit: No Status: Chronic Plan: Patient with end-stage renal disease secondary to diabetes and high blood pressure -resume hemodialysis here in the hospital -nephrology is consulted at this time (7) Hypertensive disorder, systemic arterial Onset Date: 03/23/16 Current Visit: No Status: Chronic Plan: Resume home med (8) Hypothyroidism Onset Date: 12/14/16 Current Visit: No Status: Chronic Plan: Resume home medication - Plan Patient will be admitted to ICU for severe sepsis with hypotension and tachycardia. Will continue patient on IV antibiotics and wound cultures results. Will continue to monitor closely as we cannot start IV fluids at this time given the patient's end-stage renal disease and possibility of pulmonary edema up with cardiology and nephrology recommendations at this time Discharge Plan: Custodial Plan to discharge in: Greater than 2 days - Advance Directives Does patient have a Living Will: No Does patient have a Durable POA for Healthcare: No - Code Status/Comfort Care Code Status Assessed: Yes Critical Care: Yes
[2018-11-20] MEDS ORDERED: ONDANSETRON 4 MG/2 ML VIAL IV PRN (18:05)
[2018-11-20] MEDS ORDERED: VANCOMYCIN 1.25 GM in NA CHLORIDE 0.9% 250 ML IVPB SCH (18:05)
[2018-11-20 18:44] LABS: Platelet Estimate ADEQ
[2018-11-20 18:45] LABS: Anisocytosis SLIGHT; Blood Morphology Comment NOTED (NOT SEEN); Polychromasia SLIGHT
[2018-11-20] MEDS ORDERED: PIPER/TAZO/NS 3.375gm 3.375 GM/100 ML BAG IVPB SCH (21:00)
[2018-11-20] MEDS: INSULIN -REGULAR HUMAN 50 UNIT/0.5 ML ML SQ SCH (21:08)
[2018-11-20] MEDS ORDERED: NA CHLORIDE 0.9% 500 ML IV ONE ×2 (21:32→23:05)
[2018-11-20] MEDS ORDERED: VANCOMYCIN 2.25 GM in NA CHLORIDE 0.9% 500 ML IVPB ONE (22:00)
[2018-11-20] MEDS ORDERED: NOREPINEPHRINE 4 MG/4 ML VIAL ONE (22:26)
[2018-11-20] MEDS ORDERED: D5W 250 ML IV ONE (22:27)
[2018-11-20] MEDS ORDERED: NOREPINEPHRINE 4 MG in D5W 250 ML IV PRN (22:27)
[2018-11-21] MEDS: PIPER/TAZO/NS 3.375gm 3.375 GM/100 ML BAG IVPB SCH ×2 (02:36→16:01)
--- NOTE | 2018-11-21 03:07 | CON ---
Date of Consultation: 11/20/2018 The patient admitted on 11/20/2018 to [facility], seen at the same day. Reason For Consultation: Elevated troponin. History Of Present Illness: Ms. Mayes is 63, has a history of end-stage renal disease, on hemodialy sis. She has history of diabetes, hypertension, anemia, chronic congestive heart failure that is chrissy stolic as well as COPD, was admitted with sepsis. Troponin was drawn for unknown reasons, of course is always elevated, and renal failure 0.67. I was consulted, she had no cardiac symptoms. Chest x-r ay showed mild interstitial edema expected for her hemodialysis status. No chest pain reported. She had a white count of 24,000. Her creatinine was 9.27. Allergies: SHE IS ALLERGIC TO PENICILLIN AND NORVASC. Review of Systems: Negative from a cardiac standpoint. She has had some fever and leg swelling. Social History: Negative. Family History: Noncontributory. Medications: Include Procardia, Lyrica, vancomycin, Lipitor, Coreg, clonidine, Lasix, hydralazine, i nsulin, and Synthroid. Physical Examination: Vital Signs: Stable, sinus rhythm. HEENT: Negative. Neck: Supple with no bruit. Chest: Clear. Cardiac: Exam revealed a regular rhythm and rate with an S4 gallops. Abdomen: Benign. Extremities: Revealed 1+ edema. Diagnostic Data: As stated earlier. Troponin 0.67. White count of 24,000, creatinine 9.27. EKG no nspecific. Chest x-ray showed mild edema. Lexiscan in May of 2018 was normal. She had ejection fr action 44%. Impression And Plan: 1.Elevated troponin secondary to renal failure and sepsis. 2.Hemodialysis, end-stage renal disease. 3.Dyslipidemia. 4.Hypertension. 5.Diabetes. 6.Hypothyroidism. 7.Neuropathy. 8.Anemia. 9.Chronic diastolic congestive heart failure. The patient does not need any further cardiac workup. She needs dialysis and antibiotics. JOE/HERIBERTO Voice ID: [id number] Report ID: [id number]
[2018-11-21] MEDS ORDERED: NOREPINEPHRINE 4mg/D5W 250mL 4 MG/250 ML BAG IV ONE (03:51)
[2018-11-21 05:26] LABS: Absolute Lymphocytes (CBC) 0.5 K/uL (0.7-4.9); Absolute Monocytes 1.2 K/uL (0.1-1.3); Basophils % 0.2 % (0-1.3); Eosinophils % 0.2 % (0-4.4); Hematocrit 29.5 % (36.0-45.0); Lymphocytes % 1.9 % (15.3-44.8); MPV 8.9 fL (7.6-11.3); Monocytes % 4.9 % (3.3-12.3); RBC Red Blood Cell Count 3.26 M/uL (3.86-4.86)
[2018-11-21 05:52] LABS: Albumin 2.8 g/dL (3.4-5.0); Bilirubin Total 0.5 mg/dL (0.2-1.0); Phosphorus 5.7 mg/dL (2.5-4.9); Potassium 3.1 mmol/L (3.5-5.1); Protein, Total 6.7 g/dL (6.4-8.2)
[2018-11-21] MEDS: ACETAMINOPHEN 500 MG TAB PO PRN (07:07)
[2018-11-21] MEDS: INSULIN -REGULAR HUMAN 50 UNIT/0.5 ML ML SQ SCH ×4 (07:48→20:19)
--- NOTE | 2018-11-21 07:56 | EKG ---
Test Date: 2018-11-20 Test Time: 14:28:40 [employer]: AKHIL MEASUREMENT RESULTS: Intervals: Rate: 131 LA: 144 QRSD: 150 QT: 298 QTc: 440 [place]: P: 54 LA: 144 QRS: 39 T: 228 INTERPRETIVE STATEMENTS: Sinus tachycardia Possible Left atrial enlargement Left bundle branch block Abnormal ECG Compared to ECG 06/08/2018 15:09:39 Sinus rhythm no longer present T-wave abnormality no longer present Electronically Signed On 11-21-18 07:54:02 CERTIFIED PHLEBOTOMIST by Nithin Lloyd
[2018-11-21] MEDS ORDERED: VANCOMYCIN/NS 1 gm 1 GM/250 ML BAG IV SCH (08:30)
[2018-11-21] MEDS ORDERED: ALBUMIN HUMAN 25% 50 ML IV SCH (09:00)
[2018-11-21 09:32] LABS: Blood Gas Oxyhemoglobin 93.3 % (94-97); Blood O2 Saturation 95.7 % (92-98.5)
[2018-11-21] MEDS ORDERED: IPRATROPIUM BROM 0.5MG/2.5ML NEB PRN (09:49)
[2018-11-21] MEDS ORDERED: LEVALBUTEROL 0.63 MG/3 ML NEB NEB PRN (09:49)
[2018-11-21] MEDS ORDERED: VANCOMYCIN 1 GM in NA CHLORIDE 0.9% 500 ML IVPB SCH (10:00)
--- NOTE | 2018-11-21 10:28 | P.CNS ---
Date of Consult: 11/21/18 Reason for Consult: ESRD to resume HD Primary Care Provider: Dr Madrid Chief Complaint: Sepsis History of Present Illness: A 63-year-old woman, [place] resident with PMhx of ESRD on HD MWF from [facility] via Rt perm cath , hypertension, diabetes complicated with neuropathy and nephropathy, coronary artery disease , CHF, and COPD. Pt presented with generalized weakness in ER WBC 25K, t 102 no chest pain, palpitation, nausea, vomiting or diarrhea Allergies amoxicillin [Amoxicillin] Allergy (Verified 06/08/18 19:55) unknown Penicillins Adverse Reaction (Mild, Verified 06/08/18 19:55) itching rash amlodipine Adverse Reaction (Verified 06/08/18 19:55) Itching/Hives/Rash Home Medications: Atorvastatin Calcium 40 mg PO BEDTIME 02/17/18 Furosemide [Lasix*] 80 mg PO DAILY 02/17/18 Insulin Detemir [Levemir*] 12 unit SQ BID 02/17/18 Levothyroxine [Synthroid*] 50 mcg PO [id number] 02/17/18 Pregabalin [Lyrica*] 75 mg PO BID 06/08/18 Acetaminophen [Tylenol] 650 mg PO Q4H PRN 11/20/18 Ascorbate Calcium [Vitamin C] 500 mg PO DAILY 11/20/18 Guaifenesin [Cough Syrup] 200 mg PO Q4H PRN 11/20/18 Hydrocodone Bit/Acetaminophen [[place] 7.5-325 Tablet] 1 each PO Q12H PRN Nepafenac [Ilevro] 1 drop OP DAILY PRN 11/20/18 Patiromer Calcium Sorbitex [Veltassa] 8.4 gm PO DAILY 11/20/18 Sevelamer HCl [Renagel] 1,600 mg PO TIDWM 11/20/18 Zinc Sulfate [Zinc Sulfate*] 220 mg PO DAILY 11/20/18 - Past Medical/Surgical History Diabetic: Yes -: HTN -: Diabetes Mellitus Type 2 -: ESRD -: CHF, diastolic -: Gout -: COPD -: Osteomyelitis of the right foot -: Charcot arthropathy -: Right eye December 25 2014-cataract -: Left eye January 15 2015-cataract -: right groin fistula Psychosocial/ Personal History: Single, Children-2, Work-none - Family History Father Medical History: Heart disease, Cancer Notes: prostate cancer Mother Medical History: Heart disease, Hypertension, Diabetes, Cancer Notes: breast CA - Social History Smoking Status: Unknown if ever smoked Alcohol use: No CD- Drugs: No Caffeine use: Yes Physical Examination Temp Pulse Resp BP Pulse Ox 97.6 F 139 H 35 H 125/90 99 11/21/18 04:00 11/21/18 10:00 11/21/18 10:00 11/21/18 10:00 11/21/18 10:00 General: Alert, Mild distress Neck: Supple, Without JVD or thyroid abnormality Respiratory: Clear to auscultation bilaterally Cardiovascular: No edema, Normal S1 S2 Gastrointestinal: Normal bowel sounds (tachycardia ) Laboratory Data (last 24 hrs) 11/20/18 15:00: PT 13.8 H, INR 1.17, APTT 27.7 11/20/18 15:00: WBC 24.5 H*, Hgb 10.2 L, Hct 32.4 L, Plt Count 199 11/20/18 15:00: Sodium 137, Potassium 3.0 L, BUN 61 H, Creatinine 9.27 H*, Glucose 182 H, Total Bilirubin 0.4, AST 24, ALT 21, Alkaline Phosphatase 218 H, Lipase 61 L - Problems (1) Sepsis Onset Date: 11/20/18 Current Visit: Yes Status: Acute Qualifiers: Sepsis type: sepsis due to unspecified organism Qualified Code(s): A41.9 - Sepsis, unspecified organism (2) Bacteremia Current Visit: No Status: Acute (3) Hypokalemia Onset Date: 03/04/16 Current Visit: No Status: Acute (4) ESRD (end stage renal disease) Onset Date: 07/22/17 Current Visit: No Status: Chronic Conclusions/Impression: ESRD on HD MWF via lt Rt femoral cath from [facility] HD today and tomorrow REnal diet renal dose meds pressers to maintain BP during HD Septic shock with bandemia bcx; G+ve cocci Cont Abx Vanco after HD monitor vanco level agree with foot MRI to R/O OM pressers to maintain BP during HD HD catheter need to removed, lt femoral central can be switched to trialysis cath MBD will send for PTh and Phos
[2018-11-21] MEDS: SEVELAMER CARBONATE 800 MG TABLET PO SCH ×2 (12:00→17:00)
--- NOTE | 2018-11-21 12:30 | P.PN ---
Subjective Date of Service: 11/21/18 Primary Care Provider: Dr Madrid Chief Complaint: Sepsis Review of Systems 10-point ROS is otherwise unremarkable Physical Examination - Vital Signs Temperature: 97.6 F Blood Pressure: 126/85 Pulse: 134 Respirations: 27 Pulse Ox (%): 94 - Physical Exam General: Alert, In no apparent distress HEENT: Atraumatic, PERRLA, EOMI Neck: Supple, JVD not distended Respiratory: Normal air movement, Crackles/rales Cardiovascular: Regular rate/rhythm, Normal S1 S2 Gastrointestinal: Normal bowel sounds, No tenderness Musculoskeletal: No tenderness Integumentary: No rashes Neurological: Normal speech, Normal tone, Normal affect Lymphatics: No axilla or inguinal lymphadenopathy - Studies Laboratory Data (last 24 hrs) 11/20/18 15:00: PT 13.8 H, INR 1.17, APTT 27.7 11/20/18 15:00: WBC 24.5 H*, Hgb 10.2 L, Hct 32.4 L, Plt Count 199 11/20/18 15:00: Sodium 137, Potassium 3.0 L, BUN 61 H, Creatinine 9.27 H*, Glucose 182 H, Total Bilirubin 0.4, AST 24, ALT 21, Alkaline Phosphatase 218 H, Lipase 61 L Microbiology Data (last 24 hrs): 11/20/18 14:55 Nasopharnyx Influenza Type A Antigen Screen - Final 11/20/18 14:55 Nasopharnyx Influenza Type B Antigen Screen - Final Medications List Reviewed: Yes Assessment And Plan - Current Problems (Diagnosis) (1) Acute respiratory distress Current Visit: Yes Status: Acute Plan: Acute Repiratory Distress -Most Likely 2.2 to Volume Overload. -HD started today. 2.5L removed -Will continue to Monitor -Pulmonology consulted. (2) Sepsis Onset Date: 11/20/18 Current Visit: Yes Status: Acute Plan: Severe sepsis with hypotension, tachycardia and elevated lactic acid on admission -Multifactorial at this time UTI Vs Line Infection vs bactermia. -Patient with history of bacteremia, UTI and diabetic ulcers -patient on vancomycin and Zosyn at this time -wound culture+ for gram - rods -Blooc cutlure + for gram + -on levaphed currently for BP support -Will need to have his Femoral Cath Removed but need to establish access for dialysis before. Will talk to Surgery regarding Temp HD cath Access. -no IV fluids at this time for maintenance due to pulmonary edema on the chest x -ray and end-stage renal disease Qualifiers: Sepsis type: sepsis due to unspecified organism Qualified Code(s): A41.9 - Sepsis, unspecified organism (3) Bacteremia Current Visit: No Status: Acute Plan: See Sepsis (4) UTI (urinary tract infection) Onset Date: 11/20/18 Current Visit: Yes Status: Acute Plan: See Sepsis Qualifiers: Urinary tract infection type: acute cystitis Hematuria presence: without hematuria Qualified Code(s): N30.00 - Acute cystitis without hematuria (5) Diabetes mellitus Onset Date: 03/23/16 Current Visit: No Status: Chronic Plan: Insulin sliding scale at this time Qualifiers: Diabetes mellitus type: type 2 Diabetes mellitus terminal carman insulin use: with terminal carman use Diabetes mellitus complication status: with circulatory complication Diabetes mellitus complication detail: with peripheral angiopathy without gangrene Qualified Code(s): E11.51 - Type 2 diabetes mellitus with diabetic peripheral angiopathy without gangrene; Z79.4 - group home (current) use of insulin (6) CHF (congestive heart failure) Onset Date: 12/14/16 Current Visit: No Status: Chronic Plan: History of diastolic heart failure -currently Pulmonary Edema on Xray. -will resume home medication at this time Qualifiers: Heart failure type: diastolic Heart failure chronicity: chronic Qualified Code(s): I50.32 - Chronic diastolic (congestive) heart failure (7) Charcot's arthropathy associated with type 2 diabetes mellitus Onset Date: 04/23/17 Current Visit: No Status: Chronic (8) ESRD (end stage renal disease) Onset Date: 07/22/17 Current Visit: No Status: Chronic Plan: Patient with end-stage renal disease secondary to diabetes and high blood pressure -resume hemodialysis here in the hospital -nephrology Consulted. (9) Hypertensive disorder, systemic arterial Onset Date: 03/23/16 Current Visit: No Status: Chronic Plan: Resume home med (10) Hypothyroidism Onset Date: 12/14/16 Current Visit: No Status: Chronic Plan: Resume home medication - Plan Pending Clinical Improvement. Septic Shock at this time. Currently On Levophed for BP support. Getting HD for Volume overload. Will continue with IV abx for now. Discharge Plan: Home Plan to discharge in: Greater than 2 days - Code Status/Comfort Care Code Status Assessed: Yes Critical Care: Yes
[2018-11-21 13:42] VITALS: O2SAT 100
[2018-11-21] MEDS: MIDODRINE HCL 5 MG TABLET PO SCH ×2 (13:54→20:05)
--- NOTE | 2018-11-21 14:48 | RAD REPORT ---
EXAM DESCRIPTION: CT - Abdomen Pelvis Wo Contrast - 11/21/2018 2:21 pm CLINICAL HISTORY: Abdominal pain COMPARISON: April 2017 TECHNIQUE: Computed axial tomography of the abdomen and pelvis was obtained. IV and oral contrast we re not requested. All CT scans are performed using dose optimization technique as appropriate and may include automated exposure control or mA/KV adjustment according to patient size. FINDINGS: The evaluation of solid organs, vessels and bowel is limited secondary to the lack of con trast administration. The liver, spleen, pancreas, adrenals and kidneys appear grossly normal. There is no evidence of diverticulitis. An adnexal mass is not seen. Right femoral line has its tip n ear the atrial caval junction. Gallbladder sludge IMPRESSION: No acute abnormality is displayed.
--- NOTE | 2018-11-21 14:50 | RAD REPORT ---
[facility]26 [facility] CLINICAL HISTORY: Chest pain COMPARISON: November 20 FINDINGS: Mild interstitial pulmonary edema suspected without change. The heart is normal size
--- NOTE | 2018-11-21 19:25 | PN ---
The patient was admitted on 11/20/2018 for elevated troponin. She has a history of end-stage renal d alexei, on hemodialysis. Troponin keeps going up, but the patient has no cardiac symptoms, no chest pain. An echocardiogram was ordered today because of the elevated troponin. She has paradoxical sep leon wall motion. She has moderate global hypokinesis with an ejection fraction of about 40% to 45%. She is getting dialyzed today. She does have some CHF by x-ray. The troponin is probably secondary to congestive heart failure and renal failure. We will consider an outpatient Lexiscan on her down the road. No plan for coronary interventions at this point. JOE/HERIBERTO Voice ID: [id number] Report ID: [id number]
[2018-11-21] MEDS: PREGABALIN 75 MG CAP PO SCH (20:05)
[2018-11-21] MEDS ORDERED: ATORVASTATIN 40 MG TAB PO SCH (21:00)
[2018-11-22] MEDS: PIPER/TAZO/NS 3.375gm 3.375 GM/100 ML BAG IVPB SCH (02:26)
[2018-11-22] MEDS: ACETAMINOPHEN 500 MG TAB PO PRN (04:48)
[2018-11-22] MEDS ORDERED: NOREPINEPHRINE 4mg/D5W 250mL 4 MG/250 ML BAG IV ONE (05:01)
[2018-11-22 05:06] LABS: Absolute Lymphocytes (CBC) 0.6 K/uL (0.7-4.9); Absolute Monocytes 1.7 K/uL (0.1-1.3); Absolute Neutrophil 23.1 K/uL (1.8-8.0); Basophils % 0.5 % (0-1.3); Eosinophils % 0.4 % (0-4.4); Hematocrit 25.8 % (36.0-45.0); Lymphocytes % 2.5 % (15.3-44.8); MPV 8.8 fL (7.6-11.3); Monocytes % 6.7 % (3.3-12.3); RBC Red Blood Cell Count 2.87 M/uL (3.86-4.86)
[2018-11-22 05:20] VITALS: BMI 31.7
[2018-11-22 05:48] LABS: Albumin 2.6 g/dL (3.4-5.0); Magnesium 2.2 mg/dL (1.8-2.4); Phosphorus 4.3 mg/dL (2.5-4.9); Protein, Total 6.7 g/dL (6.4-8.2)
[2018-11-22] MEDS ORDERED: LEVOTHYROXINE SOD 0.05 MG TABLET PO SCH (06:00)
--- NOTE | 2018-11-22 06:20 | ECHO ---
HEIGHT: 5 ft 7 in WEIGHT: 202 lb 14.4 oz DATE OF STUDY: 11/21/[address]: Nithin Lloyd MD 2-DIMENSIONAL: YES M.MODE: YES DOPPLER: YES COLOR FLOW: YES TDS: PORTABLE: YES DEFINITY: BUBBLE STUDY: DIAGNOSIS: CHEST PAIN CARDIAC HISTORY: CATHERIZATION: YES SURGERY: PROSTHETIC VALVE: PACEMAKER: NO MEASUREMENTS (cm) DIASTOLIC (NORMALS) SYSTOLIC (NORMALS) IVSd 0.8 (0.6-1.2) LA Diam 2.7 (1.9-4.0) LVEF 40-45% LVIDd 4.4 (3.5-5.7) LVIDs 3.6 (2.0-3.5) %FS 18% LVPWd 1.0 (0.6-1.2) Ao Diam 2.5 (2.0-3.7) 2 DIMENSIONAL ASSESSMENT: RIGHT ATRIUM: NORMAL LEFT ATRIUM: NORMAL RIGHT VENTRICLE: NORMAL LEFT VENTRICLE: NORMAL SIZE TRICUSPID VALVE: NORMAL MITRAL VALVE: MITRAL ANNULAR CALCIFICATION PULMONIC VALVE: NORMAL AORTIC VALVE: NORMAL PERICARDIAL EFFUSION: NONE AORTIC ROOT: NORMAL LEFT VENTRICULAR WALL MOTION: PARADOXICAL SEPTUM. MILD GLOBAL HYPOKINESIS DOPPLER/COLOR FLOW: MILD TRICUSPID REGURGITATION COMMENTS: MILD GLOBAL HYPOKINESIS. EJECTION FRACTION 40-45%. PARADOXICAL SEPTUM. MITRAL ANNULAR CALCIFICATION. MILD TRICUSPID REGURGITATION. NORMAL RIGHT VENTRICULAR SYSTOLIC PRESSURE. TECHNOLOGIST: PERCY MAZARIEGOS
[2018-11-22] MEDS ORDERED: PANTOPRAZOLE 40 MG INJ IVP SCH (09:00)
[2018-11-22] MEDS ORDERED: ZINC SULFATE 220 MG CAP PO SCH (09:00)
[2018-11-22] MEDS: INSULIN -REGULAR HUMAN 50 UNIT/0.5 ML ML SQ SCH ×2 (09:23→12:33)
[2018-11-22] MEDS: MIDODRINE HCL 5 MG TABLET PO SCH (09:26)
[2018-11-22] MEDS: SEVELAMER CARBONATE 800 MG TABLET PO SCH ×2 (09:26→12:33)
[2018-11-22] MEDS: PREGABALIN 75 MG CAP PO SCH (09:27)
--- NOTE | 2018-11-22 11:33 | P.CNS ---
Date of Consult: 11/22/18 Primary Care Provider: Dr Madrid Chief Complaint: Sepsis History of Present Illness: Patient is 63 years of age with end-stage renal disease lives in snf admitted with generalized weakness fever and chills and high fever she denies any shortness of breath cough sputum or hemoptysis/no prior history of cardiopulmonary problems Blood cultures are positive for Staph possibility of a line infection patient is currently on Levophed Allergies amoxicillin [Amoxicillin] Allergy (Verified 06/08/18 19:55) unknown Penicillins Adverse Reaction (Mild, Verified 06/08/18 19:55) itching rash amlodipine Adverse Reaction (Verified 06/08/18 19:55) Itching/Hives/Rash Home Medications: Atorvastatin Calcium 40 mg PO BEDTIME 02/17/18 Furosemide [Lasix*] 80 mg PO DAILY 02/17/18 Insulin Detemir [Levemir*] 12 unit SQ BID 02/17/18 Levothyroxine [Synthroid*] 50 mcg PO [id number] 02/17/18 Pregabalin [Lyrica*] 75 mg PO BID 06/08/18 Acetaminophen [Tylenol] 650 mg PO Q4H PRN 11/20/18 Ascorbate Calcium [Vitamin C] 500 mg PO DAILY 11/20/18 Guaifenesin [Cough Syrup] 200 mg PO Q4H PRN 11/20/18 Hydrocodone Bit/Acetaminophen [[place] 7.5-325 Tablet] 1 each PO Q12H PRN Nepafenac [Ilevro] 1 drop OP DAILY PRN 11/20/18 Patiromer Calcium Sorbitex [Veltassa] 8.4 gm PO DAILY 11/20/18 Sevelamer HCl [Renagel] 1,600 mg PO TIDWM 11/20/18 Zinc Sulfate [Zinc Sulfate*] 220 mg PO DAILY 11/20/18 - Past Medical/Surgical History Diabetic: Yes -: HTN -: Diabetes Mellitus Type 2 -: ESRD -: CHF, diastolic -: Gout -: COPD -: Osteomyelitis of the right foot -: Charcot arthropathy -: Right eye December 25 2014-cataract -: Left eye January 15 2015-cataract -: right groin fistula Psychosocial/ Personal History: Single, Children-2, Work-none - Family History Father Medical History: Heart disease, Cancer Notes: prostate cancer Mother Medical History: Heart disease, Hypertension, Diabetes, Cancer Notes: breast CA - Social History Smoking Status: Unknown if ever smoked Alcohol use: No CD- Drugs: No Caffeine use: Yes Review of Systems General: Weakness Gastrointestinal: Diarrhea Physical Examination Temp Pulse Resp BP Pulse Ox 98.1 F 92 H 20 94/53 L 100 11/22/18 04:00 11/22/18 07:15 11/22/18 07:15 11/22/18 07:15 11/22/18 07:15 General: Alert, In no apparent distress, Oriented x3, Cooperative HEENT: Atraumatic Neck: Supple Respiratory: Clear to auscultation bilaterally Cardiovascular: No edema, Normal S1 S2 Gastrointestinal: Normal bowel sounds, Soft and benign Musculoskeletal: Other (Patient has wounds on both her ankles) - Problems (1) Shock Current Visit: Yes Status: Acute Plan: Patient is 63 years of age with end-stage renal disease admitted with weakness fever chills elevated white count and bacteremia currently on vancomycin and Zosyn oxygenation satisfactory chest x-ray possible volume overload abdominal CTs negative labs reviewed consistent with the renal failure white count is significantly elevated hospitalist recurrent requesting transfer to a tertiary care center patient is stable
[2018-11-22 13:49] VITALS: BP 128/61; TEMP 98.1
--- NOTE | 2018-11-22 13:49 | P.PN ---
Subjective Date of Service: 11/22/18 Primary Care Provider: Dr Madrid Chief Complaint: Sepsis Subjective: Improving No SOB mentally improved bcx: S. aureus agree to transfer pt , she will need HD cathter removal , which couldnt be done to extensive IJ scaring and no avilability for trialysis catheter Review of Systems Musculoskeletal: Back Pain Physical Examination - Vital Signs Temperature: 98.1 F Blood Pressure: 128/61 Pulse: 94 Respirations: 18 Pulse Ox (%): 100 - Physical Exam General: Alert, Mild distress HEENT: Atraumatic Neck: Supple, Without JVD or thyroid abnormality Respiratory: Clear to auscultation bilaterally Cardiovascular: No edema, Regular rate/rhythm, Normal S1 S2 Integumentary: No rashes - Studies Microbiology Data (last 24 hrs): 11/20/18 16:10 Clean Catch Urine Hollis Count - Final 11/20/18 16:10 Clean Catch Urine - Final No growth. Medications List Reviewed: Yes Assessment And Plan - Current Problems (Diagnosis) (1) Sepsis Onset Date: 11/20/18 Current Visit: Yes Status: Acute Qualifiers: Sepsis type: sepsis due to unspecified organism Qualified Code(s): A41.9 - Sepsis, unspecified organism (2) Bacteremia Current Visit: No Status: Acute (3) Hypokalemia Onset Date: 03/04/16 Current Visit: No Status: Acute (4) ESRD (end stage renal disease) Onset Date: 07/22/17 Current Visit: No Status: Chronic - Plan ESRD on HD MWF via lt Rt femoral cath from [place] tolerated HD yesterday with no complication and 4 liters fluid removal REnal diet renal dose meds pressers to maintain BP during HD Septic shock with bandemia bcx; Staph Cont Abx Vanco after HD monitor vanco level agree with foot MRI to R/O OM agree to transfer pt , she will need HD catheter removal , which couldn't be done to extensive IJ scaring and no avilability for trialysis catheter MBD will send for PTh and Phos
--- NOTE | 2018-11-22 14:34 | P.DS ---
Admission Date: 11/20/18 Discharge Date: 11/22/18 Primary Care Provider: Dr Madrid Disposition: TRANSFER TO [facility] Reason for Admission: Sepsis Consultations: Cardiology Nephrology Pulmonology - Problems (1) Acute respiratory distress Status: Acute (2) Sepsis Onset Date: 11/20/18 Status: Acute Qualifiers: Sepsis type: sepsis due to unspecified organism Qualified Code(s): A41.9 - Sepsis, unspecified organism (3) Bacteremia Status: Acute (4) UTI (urinary tract infection) Onset Date: 11/20/18 Status: Acute Qualifiers: Urinary tract infection type: acute cystitis Hematuria presence: without hematuria Qualified Code(s): N30.00 - Acute cystitis without hematuria (5) Diabetes mellitus Onset Date: 03/23/16 Status: Chronic Qualifiers: Diabetes mellitus type: type 2 Diabetes mellitus detention insulin use: with termite treater helper use Diabetes mellitus complication status: with circulatory complication Diabetes mellitus complication detail: with peripheral angiopathy without gangrene Qualified Code(s): E11.51 - Type 2 diabetes mellitus with diabetic peripheral angiopathy without gangrene; Z79.4 - nursing home (current) use of insulin (6) CHF (congestive heart failure) Onset Date: 12/14/16 Status: Chronic Qualifiers: Heart failure type: diastolic Heart failure chronicity: chronic Qualified Code(s): I50.32 - Chronic diastolic (congestive) heart failure (7) Charcot's arthropathy associated with type 2 diabetes mellitus Onset Date: 04/23/17 Status: Chronic (8) ESRD (end stage renal disease) Onset Date: 07/22/17 Status: Chronic (9) Hypertensive disorder, systemic arterial Onset Date: 03/23/16 Status: Chronic (10) Hypothyroidism Onset Date: 12/14/16 Status: Chronic Brief History of Present Illness: This is a 63-year-old femur with significant past medical history of hypertension, COPD, CHF, end-stage renal disease on hemodialysis, who lives at a prison [facility] who presented to the ED complaining of having some generalized weakness fever chills that has been going on for past 1 day. Patient stated that she started having some weakness along with fever and chills at the prison and got concerned and thus decided to come to the ER. Patient did have her day today however was not able to go there due to her weakness. Patient states that the fever has been 101-102 at the prison and she has taken Tylenol. Patient also complains of having some increased urinary frequency and burning during urination. Patient still produces urine and states that she has been going to patient also complains of lower abdominal pain and states that it feels like spasms in her stomach. Patient denies having any chest pain shortness of breath or any other associated symptoms at this time. In the ER patient was found to have sepsis with hypotension along with elevated lactic acid and urine as a possible source of infection and thus was admitted to the hospital for further workup Hospital Course: Overall during the hospital stay patient remained stable Patient was initially admitted to the hospital for generalized weakness, fever and chills was found to have severe sepsis most likely secondary to UTI versus line infection verses wound infection. Blood cultures, urine culture, wound cultures were collected. Patient was then started on IV vancomycin and Zosyn. Patient was also given 2 L of IV fluids due to hypotension in the ER and was switched over to Levophed for blood pressure support. Patient is end-stage dialysis patient does nephrology was consulted to dialyze the patient for volume overload versus sepsis. Patient was then admitted to the ICU for further care. In the ICU patient remained stable overall, however pressure support was required throughout. Patient's white blood count was steadily elevating. Blood culture was positive for Gram positive cocci + & gram- negative rods. Urine culture was negative for any growth. Wound cultures were positive for Gram negative rods. Patient does have a femoral HD tunnel catheter on the right which was presumed to be the source of infection. Line cultures were collected. Due to patient's acute worsening and no improvement on IV antibiotics. The decision was made the patient will most likely need her HD tunnel catheter removed and have a permanent access reestablished. Due to extensive scarring in the IJ patient is not a good candidate for IJ HD catheter placement. The decision was then made to get a trialysis catheter on the left femoral area. As the hospital does not do trialysis catheter at this point patient was referred for transfer to a higher level of care. General surgery was consulted who agreed with the plan. Nephrology was also consulted who agreed with the plan. Patient then was transferred over to [facility] for further care and was accepted by the ICU doctor there. Vital Signs/Physical Exam: Temp Pulse Resp BP Pulse Ox 98.1 F 94 H 18 128/61 100 11/22/18 13:49 11/22/18 13:49 11/22/18 13:49 11/22/18 13:49 11/22/18 13:49 General: Alert, In no apparent distress, Mild distress HEENT: Atraumatic, PERRLA, EOMI Neck: Supple, JVD not distended Respiratory: Normal air movement, Crackles/rales, Rhonchi/gurgles Cardiovascular: Regular rate/rhythm, Normal S1 S2 Gastrointestinal: Normal bowel sounds, No tenderness Musculoskeletal: No tenderness Integumentary: No rashes, Other (Left femoral Central Line, Right HD tunnel Catheter) Neurological: Normal speech, Normal tone, Normal affect Lymphatics: No axilla or inguinal lymphadenopathy Laboratory Data at Discharge: WBC 25.7 K/uL (4.3-10.9) H* 11/22/18 04:40 Hgb 8.1 g/dL (12.0-15.0) L 11/22/18 04:40 Hct 25.8 % (36.0-45.0) L 11/22/18 04:40 Plt Count 141 K/uL (152-406) L D 11/22/18 04:40 PT 13.8 SECONDS (9.5-12.5) H 11/20/18 15:00 INR 1.17 11/20/18 15:00 APTT 27.7 SECONDS (24.3-36.9) 11/20/18 15:00 Sodium 136 mmol/L (136-145) 11/22/18 04:40 Potassium 3.0 mmol/L (3.5-5.1) L 11/22/18 04:40 BUN 41 mg/dL (7-18) H D 11/22/18 04:40 Creatinine 7.30 mg/dL (0.55-1.3) H* D 11/22/18 04:40 Glucose 228 mg/dL (74-106) H 11/22/18 04:40 Phosphorus 4.3 mg/dL (2.5-4.9) 11/22/18 04:40 Magnesium 2.2 mg/dL (1.8-2.4) 11/22/18 04:40 Total Bilirubin 1.0 mg/dL (0.2-1.0) 11/22/18 04:40 AST 54 U/L (15-37) H 11/22/18 04:40 ALT 18 U/L (12-78) 11/22/18 04:40 Alkaline Phosphatase 194 U/L (45-117) H 11/22/18 04:40 Troponin I 1.28 ng/mL (0.0-0.045) H* 11/21/18 11:20 Lipase 61 U/L (73-393) L 11/20/18 15:00 Home Medications: Atorvastatin Calcium 40 mg PO BEDTIME 02/17/18 Furosemide [Lasix*] 80 mg PO DAILY 02/17/18 Insulin Detemir [Levemir*] 12 unit SQ BID 02/17/18 Levothyroxine [Synthroid*] 50 mcg PO [id number] 02/17/18 Pregabalin [Lyrica*] 75 mg PO BID 06/08/18 Acetaminophen [Tylenol] 650 mg PO Q4H PRN 11/20/18 Ascorbate Calcium [Vitamin C] 500 mg PO DAILY 11/20/18 Guaifenesin [Cough Syrup] 200 mg PO Q4H PRN 11/20/18 Hydrocodone Bit/Acetaminophen [[place] 7.5-325 Tablet] 1 each PO Q12H PRN Nepafenac [Ilevro] 1 drop OP DAILY PRN 11/20/18 Patiromer Calcium Sorbitex [Veltassa] 8.4 gm PO DAILY 11/20/18 Sevelamer HCl [Renagel] 1,600 mg PO TIDWM 11/20/18 Zinc Sulfate [Zinc Sulfate*] 220 mg PO DAILY 11/20/18
[2018-11-22] MEDS ORDERED: VANCOMYCIN 1.5 GM in NA CHLORIDE 0.9% 500 ML IVPB SCH (22:00)
--- NOTE | 2018-11-23 19:09 | PN ---
Date of Progress Note: 11/22/2018 Ms. Mayes had come in with worsening renal issues including infection of her present access to dialy sis. She is being transferred for surgery with implantation of a new access in the femoral vein area . The reason for the transfer was unavailable unavailability of the catheter here at this hospital. From a cardiac standpoint, Ms. Mayes remind remained pain-free. Her breathing has improved after d ialysis. I will sign off her case. JOE/HERIBERTO Voice ID: [id number] Report ID: [id number]
== END 2018-11-22 13:55 | disposition short-term general hospital (02) | DRG 314 ==
LOC: ER 14:14 → ERHOLD 17:09 → 3RD-ICU 17:55
PROVIDERS: ADMIT Family Medicine; ATTEND Family Medicine
PROC: 5A1D70Z Performance of Urinary Filtration, Intermittent, Less than 6 Hours Per Day (ICD-10-PCS; principal; 2018-11-21)
DX: T82.7XXA Infection and inflammatory reaction due to other cardiac and vascular devices, implants and grafts, initial encounter (principal); N18.6 End stage renal disease; R65.21 Severe sepsis with septic shock; A41.2 Sepsis due to unspecified staphylococcus; N30.00 Acute cystitis without hematuria; I13.2 Hypertensive heart and chronic kidney disease with heart failure and with stage 5 chronic kidney disease, or end stage renal disease; I50.32 Chronic diastolic (congestive) heart failure; L97.429 Non-pressure chronic ulcer of left heel and midfoot with unspecified severity; R06.03 Acute respiratory distress; E11.51 Type 2 diabetes mellitus with diabetic peripheral angiopathy without gangrene; Z79.4 Long term (current) use of insulin; E11.22 Type 2 diabetes mellitus with diabetic chronic kidney disease; Z99.2 Dependence on renal dialysis; E11.610 Type 2 diabetes mellitus with diabetic neuropathic arthropathy; E03.9 Hypothyroidism, unspecified; I95.9 Hypotension, unspecified; E87.6 Hypokalemia; Z88.0 Allergy status to penicillin; J44.9 Chronic obstructive pulmonary disease, unspecified; E11.621 Type 2 diabetes mellitus with foot ulcer; Y92.129 Unspecified place in nursing home as the place of occurrence of the external cause
CPT/HCPCS: 36415; 71045; 74176; 80048; 80053; 80076; 80202; 81015; 82550; 82553; 82805; 82962; 83605; 83690; 83735; 84100; 84145; 84484; 85025; 85610; 85730; 87040; 87070; 87077; 87086; 87088; 87186; 87205; 87804; 90935; 93005; 93306; 96365; 96366; 99285; C9113; J1644; J2405; J2543; J7060; P9047

== ENCOUNTER 2019-03-14 23:42 | Inpatient (IN) | payer MEDICAID ==
--- OUTSIDE RECORDS SUMMARY | 2019-03-14 23:46 | XMS REPORT | Clinical Summary ---
:1955 Author Organization [facility] Address [address] [place] [address] Care Team Providers Name Role Phone Radhika De La Cruz MD Primary Care Provider Allergies Active Allergy Reactions Severity Noted Date Comments Amlodipine Hives, Rash Low 11/22/2018 Amoxicillin 11/22/2018 Penicillins Itching, Rash Low 11/22/2018 Medications Medication Sig Dispensed Refills Start End Date Status Date atorvastatin Take 40 mg by 0 Active (LIPITOR) 40 MG mouth daily. tablet levothyroxine Take 50 mcg by 0 Active (SYNTHROID, mouth Every LEVOTHROID) 50 MCG morning on an tablet empty stomach. acetaminophen Place 650 mg 0 Active (TYLENOL) 650 MG rectally every 4 suppository (four) hours as needed for Fever. ascorbic acid, Take 500 mg by 0 Active vitamin C, mouth daily. (ASCORBIC ACID WITH YOEL HIPS) 500 MG tablet guaiFENesin 200 mg Take 400 mg by 0 Active tablet mouth every 4 (four) hours as needed for Congestion. nepafenac Apply 1 drop to 0 Active (NEVANAC) 0.1 % eye(s) daily as ophthalmic needed. suspension zinc sulfate Take 220 mg by 0 Active (ZINCATE) 220 (50) mouth daily. mg capsule mupirocin 0 Active (BACTROBAN) 2 % 8 ointment insulin detemir Inject 0.08 mLs (8 10 packet 0 Active U-100 (LEVEMIR) Units total) 9 100 unit/mL (3 mL) subcutaneously 2 InPn injection (two) times daily. apixaban (ELIQUIS) Take 1 tablet (2.5 90 tablet 3 Active 2.5 mg Tab tablet mg total) by mouth 9 2 (two) times daily. aspirin 81 MG EC Take 1 tablet (81 360 tablet 0 12/09/19 Active tablet mg total) by mouth 9 20 daily. honey 100 % Pste Apply 1 103 mL 3 Active application 9 topically daily. ipratropium-albute Take 3 mLs by 30 vial 0 12/03/19 Active rol (DUO-NEB) 0.5 nebulization every 9 20 mg-3 mg(2.5 mg 6 (six) hours as base)/3 mL needed for nebulizer solution Wheezing for up to 360 days. metoprolol Take 1 tablet (50 0 12/09/19 Active (TOPROL-XL) 50 MG mg total) by mouth 9 20 24 hr tablet daily. senna-docusate Take 2 tablets by 0 12/08/19 Active (SENOKOT S) 8.6-50 mouth 2 (two) 9 20 mg per tablet times daily. sevelamer Take 1 tablet (800 0 12/08/19 Active (RENVELA) 800 mg mg total) by mouth 9 20 tablet 3 (three) times daily with meals. vancomycin Inject 1,000 mg 0 Active (VANCOCIN) 1000 mg intravenously 3 9 in NS 250 mL (V2B) (three) times a IVPB week after dialysis. pregabalin Take 1 capsule (50 0 Active (LYRICA) 50 MG mg total) by mouth 9 capsule daily. Max Daily Amount: 50 mg furosemide (LASIX) Take 80 mg by 0 12/08/19 Discontinued 80 MG tablet mouth daily. 19 insulin detemir Inject 12 Units 0 12/08/19 Discontinued U-100 (LEVEMIR) subcutaneously 2 19 100 unit/mL (3 mL) (two) times daily. InPn injection pregabalin Take 75 mg by 0 12/08/19 Discontinued (LYRICA) 75 MG mouth 2 (two) 19 capsule times daily. HYDROcodone-acetam Take 1 tablet by 0 12/08/19 Discontinued inophen (NORCO mouth every 12 19 7.5-325) 7.5-325 (twelve) hours as mg per tablet needed for Pain. patiromer calcium Take 8.4 g by 0 12/08/19 Discontinued sorbitex mouth daily. 19 (VELTASSA) 8.4 gram PwPk sevelamer Take 1,600 mg by 0 12/08/19 Discontinued (RENAGEL) 800 MG mouth 3 (three) 19 tablet times daily with meals. hydrocortisone Place rectally 2 30 g 0 12/18/19 (ANUSOL-HC) 2.5 % (two) times daily 9 rectal cream for 10 days. polyethylene Take 17 g by mouth 14 each 0 12/12/19 glycol (GLYCOLAX) daily for 3 days. 9 17 gram packet HYDROcodone-acetam Take 1 tablet by 30 tablet 0 12/08/19 Discontinued inophen (NORCO mouth every 4 9 10-325) 10-325 mg (four) hours as per tablet needed for up to 10 days. Max Daily Amount: 6 tablets HYDROcodone-acetam Take 1 tablet by 30 tablet 0 12/18/19 inophen (NORCO mouth every 6 9 19 10-325) 10-325 mg (six) hours as per tablet needed for up to 10 days. Max Daily Amount: 4 tablets Active Problems Problem Noted Date Septic shock 11/23/2018 Pressure injury of left foot, stage 4 11/23/2018 ESRD (end stage renal disease) on dialysis 11/23/2018 Hypokalemia 11/23/2018 MRSA bacteremia 11/23/2018 Anemia of chronic disease 11/23/2018 Troponin level elevated 11/23/2018 Encounters Date Type Specialty Care Team Description 11/26/2018 Travel 11/22/2018 - Hospital Encounter General Internal Ben Bentley, Septic shock (HCC) (Primary Dx); 12/08/2018 Medicine Shorty Pennington, End-stage renal disease on hemodialysis ([facility]); Problem with vascular access; Mamadou Arreola's joint of foot, non-diabetic, right; MD Davis Pressure injury of right heel, stage 4 ([facility]); Emily Weston Elevated troponin; MD Mounika LBBB (left bundle branch block); Lars Lott [facility] ESRD (end stage renal disease) on dialysis (HCC); MRSA bacteremia; Troponin level elevated; Anemia of chronic disease; Hypokalemia 11/22/2018 Orders Only General Internal Medicine 11/22/2018 Telephone Critical Care Ben Bentley, [facility] Medicine Shorty Pennington MD after 03/13/2018 Social History Tobacco Use Types Packs/Day Years Used Date Never Smoker Smokeless Tobacco: Never Used Sex Assigned at Date Recorded Not on file Job Start Date Occupation Industry Not on file Not on file Not on file Travel History Travel Start Travel End No recent travel history available. Last Filed Vital Signs Vital Sign Reading Time Taken Blood Pressure 124/57 12/08/2018 4:37 AM ACCOUNTING FILE CLERK Pulse 82 12/08/2018 4:37 AM ACCOUNTING FILE CLERK Temperature 36.8 C (98.2 F) 12/08/2018 4:37 AM ACCOUNTING FILE CLERK Respiratory Rate 16 12/08/2018 4:37 AM ACCOUNTING FILE CLERK Oxygen Saturation 95% 12/08/2018 4:37 AM ACCOUNTING FILE CLERK Inhaled Oxygen Concentration - - Weight 97.9 kg (215 lb 13.3 oz) 12/07/2018 8:42 AM ACCOUNTING FILE CLERK Height 170.2 cm (5' 7") 11/22/2018 3:09 PM ACCOUNTING FILE CLERK Body Mass Index 33.8 12/07/2018 8:42 AM ACCOUNTING FILE CLERK Plan of Treatment Not on file Procedures Procedure Name Priority Date/Time Associated Comments Diagnosis REPORT OF PROCEDURE - 12/28/2018 10:30 ENDOSCOPY SCAN AM ACCOUNTING FILE CLERK RHYTHM STRIP - SCAN 12/28/2018 10:30 AM ACCOUNTING FILE CLERK POCT-GLUCOSE METER Routine 12/08/2018 9:14 Results for this AM ACCOUNTING FILE CLERK procedure are in the results section. CBC W/PLT COUNT & Routine 12/08/2018 5:56 Results for this AUTO DIFFERENTIAL AM ACCOUNTING FILE CLERK procedure are in the results section. BASIC METABOLIC PANEL Routine 12/08/2018 5:56 Results for this (7) AM ACCOUNTING FILE CLERK procedure are in the results section. CBC W/PLT COUNT & Routine 12/08/2018 5:56 Results for this AUTO DIFFERENTIAL AM ACCOUNTING FILE CLERK procedure are in the results section. POCT-GLUCOSE METER Routine 12/07/2018 9:14 Results for this PM ACCOUNTING FILE CLERK procedure are in the results section. XR ABDOMEN 1 VIEW JORDYN 12/07/2018 6:43 Results for this PM ACCOUNTING FILE CLERK procedure are in the results section. POCT-GLUCOSE METER Routine 12/07/2018 5:48 Results for this PM ACCOUNTING FILE CLERK procedure are in the results section. POCT-GLUCOSE METER Routine 12/07/2018 2:13 Results for this PM ACCOUNTING FILE CLERK procedure are in the results section. HEMODIALYSIS Routine 12/07/2018 12:46 Results for this INPATIENT PM ACCOUNTING FILE CLERK procedure are in the results section. HEMODIALYSIS Routine 12/07/2018 8:12 INPATIENT AM ACCOUNTING FILE CLERK POCT-GLUCOSE METER Routine 12/07/2018 7:50 Results for this AM ACCOUNTING FILE CLERK procedure are in the results section. CBC W/PLT COUNT & Routine 12/07/2018 5:32 Results for this AUTO DIFFERENTIAL AM ACCOUNTING FILE CLERK procedure are in the results section. MAGNESIUM Routine 12/07/2018 5:32 Results for this AM ACCOUNTING FILE CLERK procedure are in the results section. BASIC METABOLIC PANEL Routine 12/07/2018 5:32 Results for this (7) AM ACCOUNTING FILE CLERK procedure are in the results section. CBC W/PLT COUNT & Routine 12/07/2018 5:32 Results for this AUTO DIFFERENTIAL AM ACCOUNTING FILE CLERK procedure are in the results section. POCT-GLUCOSE METER Routine 12/06/2018 9:30 Results for this PM ACCOUNTING FILE CLERK procedure are in the results section. POCT-GLUCOSE METER Routine 12/06/2018 5:41 Results for this PM ACCOUNTING FILE CLERK procedure are in the results section. BLOOD CULTURE Routine 12/06/2018 2:55 Results for this PM ACCOUNTING FILE CLERK procedure are in the results section. NM MYOCARDIAL Routine 12/06/2018 1:20 Results for this PERFUSION SPECT, PM ACCOUNTING FILE CLERK procedure are in PHARM(LEXISCAN) the results section. POCT-GLUCOSE METER Routine 12/06/2018 12:29 Results for this PM ACCOUNTING FILE CLERK procedure are in the results section. POCT-GLUCOSE METER Routine 12/06/2018 11:06 Results for this AM ACCOUNTING FILE CLERK procedure are in the results section. TREADMILL Routine 12/06/2018 9:38 Results for this TOLERANCE(NON-NUCLEAR AM ACCOUNTING FILE CLERK procedure are in TREADMILL) the results section. ECG 12-LEAD Routine 12/06/2018 9:12 AM ACCOUNTING FILE CLERK Procedure Note - Interface, External Ris In - 12/06/2018 9:56 AM ACCOUNTING FILE CLERK Ventricular Rate 90 BPM Atrial Rate 90 BPM P-R Interval 178 ms QRS Duration 152 ms Q-T Interval 424 ms QTC Calculation(Bazett) 518 ms P Sheffield 69 degrees R Sheffield 70 degrees T Sheffield 63 degrees Normal sinus rhythm Left bundle branch block Abnormal ECG ECG 12-LEAD Routine 12/06/2018 9:11 AM ACCOUNTING FILE CLERK Procedure Note - Interface, External Ris In - 12/06/2018 9:56 AM ACCOUNTING FILE CLERK Ventricular Rate 91 BPM Atrial Rate 91 BPM P-R Interval 172 ms QRS Duration 158 ms Q-T Interval 408 ms QTC Calculation(Bazett) 501 ms P Sheffield 60 degrees R Sheffield 74 degrees T Sheffield 206 degrees Sinus rhythm with Fusion complexes Left bundle branch block Abnormal ECG ECG 12-LEAD Routine 12/06/2018 9:03 AM ACCOUNTING FILE CLERK ECG 12-LEAD Routine 12/06/2018 9:03 AM ACCOUNTING FILE CLERK Procedure Note - Interface, External Ris In - 12/06/2018 9:56 AM ACCOUNTING FILE CLERK Ventricular Rate 91 BPM Atrial Rate 91 BPM P-R Interval 172 ms QRS Duration 152 ms Q-T Interval 422 ms QTC Calculation(Bazett) 519 ms P Sheffield 68 degrees R Sheffield 67 degrees T Sheffield 79 degrees Normal sinus rhythm Left bundle branch block Abnormal ECG POCT-GLUCOSE METER Routine 12/06/2018 6:16 AM ACCOUNTING FILE CLERK CBC W/PLT COUNT & AUTO Routine 12/06/2018 1:11 AM ACCOUNTING FILE CLERK Results for this DIFFERENTIAL procedure are in the results section. APTT Routine 12/06/2018 1:11 AM ACCOUNTING FILE CLERK BASIC METABOLIC PANEL (7) Routine 12/06/2018 1:11 AM ACCOUNTING FILE CLERK CBC W/PLT COUNT & AUTO Routine 12/06/2018 1:11 AM ACCOUNTING FILE CLERK Results for this DIFFERENTIAL procedure are in the results section. VANCOMYCIN LEVEL, RANDOM Routine 12/06/2018 1:11 AM ACCOUNTING FILE CLERK POCT-GLUCOSE METER Routine 12/05/2018 9:20 PM ACCOUNTING FILE CLERK TRANSFUSION SERVICE REPORT - 12/05/2018 5:50 PM ACCOUNTING FILE CLERK SCAN POCT-GLUCOSE METER Routine 12/05/2018 4:27 PM ACCOUNTING FILE CLERK POCT-GLUCOSE METER Routine 12/05/2018 12:18 PM ACCOUNTING FILE CLERK APTT Routine 12/05/2018 8:09 AM ACCOUNTING FILE CLERK CBC W/PLT COUNT & AUTO Routine 12/05/2018 8:00 AM ACCOUNTING FILE CLERK Results for this DIFFERENTIAL procedure are in the results section. BASIC METABOLIC PANEL (7) Routine 12/05/2018 8:00 AM ACCOUNTING FILE CLERK CBC W/PLT COUNT & AUTO Routine 12/05/2018 8:00 AM ACCOUNTING FILE CLERK Results for this DIFFERENTIAL procedure are in the results section. PREPARE LEUKO-REDUCED RBC Routine 12/04/2018 11:54 PM ACCOUNTING FILE CLERK APTT Routine 12/04/2018 11:36 PM ACCOUNTING FILE CLERK POCT-GLUCOSE METER Routine 12/04/2018 8:48 PM ACCOUNTING FILE CLERK TRANSFUSION SERVICE REPORT - 12/04/2018 5:50 PM ACCOUNTING FILE CLERK SCAN POCT-GLUCOSE METER Routine 12/04/2018 5:02 PM ACCOUNTING FILE CLERK APTT Routine 12/04/2018 4:05 PM ACCOUNTING FILE CLERK POCT-GLUCOSE METER Routine 12/04/2018 12:31 PM ACCOUNTING FILE CLERK APTT Routine 12/04/2018 9:59 AM ACCOUNTING FILE CLERK POCT-GLUCOSE METER Routine 12/04/2018 8:10 AM ACCOUNTING FILE CLERK CBC W/PLT COUNT & AUTO Routine 12/04/2018 5:33 AM ACCOUNTING FILE CLERK Results for this DIFFERENTIAL procedure are in the results section. VANCOMYCIN LEVEL, RANDOM Routine 12/04/2018 5:33 AM ACCOUNTING FILE CLERK BASIC METABOLIC PANEL (7) Routine 12/04/2018 5:33 AM ACCOUNTING FILE CLERK CBC W/PLT COUNT & AUTO Routine 12/04/2018 5:33 AM ACCOUNTING FILE CLERK Results for this DIFFERENTIAL procedure are in the results section. POCT-GLUCOSE METER Routine 12/03/2018 9:16 PM ACCOUNTING FILE CLERK POCT-GLUCOSE METER Routine 12/03/2018 5:04 PM ACCOUNTING FILE CLERK TRANSFUSE LEUKO-REDUCED RED Routine 12/03/2018 3:10 PM ACCOUNTING FILE CLERK BLOOD CELLS POCT-GLUCOSE METER Routine 12/03/2018 12:08 PM ACCOUNTING FILE CLERK TYPE AND SCREEN, AUTOMATED Routine 12/03/2018 8:46 AM ACCOUNTING FILE CLERK POCT-GLUCOSE METER Routine 12/03/2018 8:11 AM ACCOUNTING FILE CLERK CBC W/PLT COUNT & AUTO Routine 12/03/2018 5:59 AM ACCOUNTING FILE CLERK Results for this DIFFERENTIAL procedure are in the results section. BASIC METABOLIC PANEL (7) Routine 12/03/2018 5:59 AM ACCOUNTING FILE CLERK CBC W/PLT COUNT & AUTO Routine 12/03/2018 5:59 AM ACCOUNTING FILE CLERK Results for this DIFFERENTIAL procedure are in the results section. HEMODIALYSIS INPATIENT Routine 12/02/2018 9:15 PM ACCOUNTING FILE CLERK IR TUNNELED DIALYSIS CATHETER Routine 12/02/2018 1:10 PM ACCOUNTING FILE CLERK HEMOGLOBIN AND HEMATOCRIT Routine 12/02/2018 8:24 AM ACCOUNTING FILE CLERK POCT-GLUCOSE METER Routine 12/02/2018 7:33 AM ACCOUNTING FILE CLERK POCT-GLUCOSE METER Routine 12/02/2018 6:30 AM ACCOUNTING FILE CLERK CBC W/PLT COUNT & AUTO Routine 12/02/2018 5:42 AM ACCOUNTING FILE CLERK Results for this DIFFERENTIAL procedure are in the results section. PT/APTT Routine 12/02/2018 5:42 AM ACCOUNTING FILE CLERK BASIC METABOLIC PANEL (7) Routine 12/02/2018 5:42 AM ACCOUNTING FILE CLERK CBC W/PLT COUNT & AUTO Routine 12/02/2018 5:42 AM ACCOUNTING FILE CLERK Results for this DIFFERENTIAL procedure are in the results section. VANCOMYCIN LEVEL, RANDOM Routine 12/02/2018 5:42 AM ACCOUNTING FILE CLERK POCT-GLUCOSE METER Routine 12/01/2018 11:36 PM ACCOUNTING FILE CLERK MR LOWER EXT JOINT WITHOUT IV Routine 12/01/2018 7:00 PM ACCOUNTING FILE CLERK Results for this CONTRAST RIGHT procedure are in the results section. POCT-GLUCOSE METER Routine 12/01/2018 12:02 PM ACCOUNTING FILE CLERK CBC W/PLT COUNT & AUTO Routine 12/01/2018 11:33 AM ACCOUNTING FILE CLERK Results for this DIFFERENTIAL procedure are in the results section. BASIC METABOLIC PANEL (7) Routine 12/01/2018 11:33 AM ACCOUNTING FILE CLERK CBC W/PLT COUNT & AUTO Routine 12/01/2018 11:33 AM ACCOUNTING FILE CLERK Results for this DIFFERENTIAL procedure are in the results section. XR HIP RIGHT 1 VIEW Routine 12/01/2018 11:16 AM ACCOUNTING FILE CLERK POCT-GLUCOSE METER Routine 12/01/2018 7:39 AM ACCOUNTING FILE CLERK VANCOMYCIN LEVEL, RANDOM Routine 12/01/2018 5:58 AM ACCOUNTING FILE CLERK GENTAMICIN LEVEL, TROUGH Routine 11/30/2018 8:57 PM ACCOUNTING FILE CLERK POCT-GLUCOSE METER Routine 11/30/2018 8:16 PM ACCOUNTING FILE CLERK POCT-GLUCOSE METER Routine 11/30/2018 6:03 PM ACCOUNTING FILE CLERK TRANSFUSION SERVICE REPORT - 11/30/2018 6:00 PM ACCOUNTING FILE CLERK SCAN HEMODIALYSIS INPATIENT Routine 11/30/2018 4:43 PM ACCOUNTING FILE CLERK POCT-GLUCOSE METER Routine 11/30/2018 1:41 PM ACCOUNTING FILE CLERK POCT-GLUCOSE METER Routine 11/30/2018 7:36 AM ACCOUNTING FILE CLERK CBC W/PLT COUNT & AUTO Routine 11/30/2018 6:22 AM ACCOUNTING FILE CLERK Results for this DIFFERENTIAL procedure are in the results section. BASIC METABOLIC PANEL (7) Routine 11/30/2018 6:22 AM ACCOUNTING FILE CLERK CBC W/PLT COUNT & AUTO Routine 11/30/2018 6:22 AM ACCOUNTING FILE CLERK Results for this DIFFERENTIAL procedure are in the results section. VANCOMYCIN LEVEL, RANDOM Routine 11/30/2018 6:22 AM ACCOUNTING FILE CLERK PREPARE LEUKO-REDUCED RBC Routine 11/29/2018 11:54 PM ACCOUNTING FILE CLERK POCT-GLUCOSE METER Routine 11/29/2018 9:16 PM ACCOUNTING FILE CLERK TRANSFUSION SERVICE REPORT - 11/29/2018 6:00 PM ACCOUNTING FILE CLERK SCAN POCT-GLUCOSE METER Routine 11/29/2018 5:48 PM ACCOUNTING FILE CLERK POCT-GLUCOSE METER Routine 11/29/2018 1:21 PM ACCOUNTING FILE CLERK POCT-GLUCOSE METER Routine 11/29/2018 8:20 AM ACCOUNTING FILE CLERK CBC W/PLT COUNT & AUTO Routine 11/29/2018 5:59 AM ACCOUNTING FILE CLERK Results for this DIFFERENTIAL procedure are in the results section. PHOSPHORUS Routine 11/29/2018 5:59 AM ACCOUNTING FILE CLERK MAGNESIUM Routine 11/29/2018 5:59 AM ACCOUNTING FILE CLERK BASIC METABOLIC PANEL (7) Routine 11/29/2018 5:59 AM ACCOUNTING FILE CLERK CBC W/PLT COUNT & AUTO Routine 11/29/2018 5:59 AM ACCOUNTING FILE CLERK Results for this DIFFERENTIAL procedure are in the results section. VANCOMYCIN LEVEL, RANDOM Routine 11/29/2018 5:59 AM ACCOUNTING FILE CLERK POCT-GLUCOSE METER Routine 11/29/2018 12:34 AM ACCOUNTING FILE CLERK HEMODIALYSIS INPATIENT Routine 11/28/2018 11:37 PM ACCOUNTING FILE CLERK HEMOGLOBIN AND HEMATOCRIT Routine 11/28/2018 11:15 PM ACCOUNTING FILE CLERK TRANSFUSE LEUKO-REDUCED RED Routine 11/28/2018 8:13 PM ACCOUNTING FILE CLERK BLOOD CELLS POCT-GLUCOSE METER Routine 11/28/2018 5:43 PM ACCOUNTING FILE CLERK ECHOCARDIOGRAM REPORT - SCAN 11/28/2018 1:20 PM ACCOUNTING FILE CLERK POCT-GLUCOSE METER Routine 11/28/2018 12:45 PM ACCOUNTING FILE CL[address] ABDOMEN/PELVIS WITHOUT IV STAT 11/28/2018 9:19 AM ACCOUNTING FILE CLERK Results for this CONTRAST procedure are in the results section. PROTHROMBIN TIME/INR STAT 11/28/2018 9:01 AM ACCOUNTING FILE CLERK TRANSESOPHAGEAL ECHO Routine 11/28/2018 8:58 AM ACCOUNTING FILE CLERK TYPE AND SCREEN, AUTOMATED Routine 11/28/2018 8:52 AM ACCOUNTING FILE CLERK HEMOGLOBIN AND HEMATOCRIT STAT 11/28/2018 8:52 AM ACCOUNTING FILE CLERK BLOOD CULTURE Routine 11/28/2018 8:52 AM ACCOUNTING FILE CLERK CBC W/PLT COUNT & AUTO Routine 11/28/2018 5:57 AM ACCOUNTING FILE CLERK Results for this DIFFERENTIAL procedure are in the results section. APTT Routine 11/28/2018 5:57 AM ACCOUNTING FILE CLERK CBC W/PLT COUNT & AUTO Routine 11/28/2018 5:57 AM ACCOUNTING FILE CLERK Results for this DIFFERENTIAL procedure are in the results section. BASIC METABOLIC PANEL (7) Routine 11/28/2018 5:57 AM ACCOUNTING FILE CLERK POCT-GLUCOSE METER Routine 11/27/2018 9:29 PM ACCOUNTING FILE CLERK APTT Routine 11/27/2018 6:12 PM ACCOUNTING FILE CLERK POCT-GLUCOSE METER Routine 11/27/2018 1:14 PM ACCOUNTING FILE CLERK APTT Routine 11/27/2018 10:58 AM ACCOUNTING FILE CLERK POCT-GLUCOSE METER Routine 11/27/2018 8:07 AM ACCOUNTING FILE CLERK BLOOD CULTURE Routine 11/27/2018 6:55 AM ACCOUNTING FILE CLERK CBC W/PLT COUNT & AUTO Routine 11/27/2018 4:29 AM ACCOUNTING FILE CLERK Results for this DIFFERENTIAL procedure are in the results section. APTT Routine 11/27/2018 4:29 AM ACCOUNTING FILE CLERK BASIC METABOLIC PANEL (7) Routine 11/27/2018 4:29 AM ACCOUNTING FILE CLERK CBC W/PLT COUNT & AUTO Routine 11/27/2018 4:29 AM ACCOUNTING FILE CLERK Results for this DIFFERENTIAL procedure are in the results section. VANCOMYCIN LEVEL, RANDOM Routine 11/27/2018 4:29 AM ACCOUNTING FILE CLERK POCT-GLUCOSE METER Routine 11/26/2018 10:05 PM ACCOUNTING FILE CLERK APTT Routine 11/26/2018 8:30 PM ACCOUNTING FILE CLERK APTT Routine 11/26/2018 6:17 PM ACCOUNTING FILE CLERK POCT-GLUCOSE METER Routine 11/26/2018 5:09 PM ACCOUNTING FILE CLERK POCT-GLUCOSE METER Routine 11/26/2018 12:41 PM ACCOUNTING FILE CLERK APTT Routine 11/26/2018 10:31 AM ACCOUNTING FILE CLERK CONT WAVE PULSED DOPPLER Routine 11/26/2018 8:22 AM ACCOUNTING FILE CLERK COLOR-FLOW MAPPING Routine 11/26/2018 8:22 AM ACCOUNTING FILE CLERK POCT-GLUCOSE METER Routine 11/26/2018 7:42 AM ACCOUNTING FILE CLERK POCT-GLUCOSE METER Routine 11/26/2018 3:21 AM ACCOUNTING FILE CLERK APTT Routine 11/26/2018 3:11 AM ACCOUNTING FILE CLERK POCT-GLUCOSE METER Routine 11/25/2018 10:12 PM ACCOUNTING FILE CLERK APTT Routine 11/25/2018 8:46 PM ACCOUNTING FILE CLERK POCT-GLUCOSE METER Routine 11/25/2018 7:32 PM ACCOUNTING FILE CLERK VANCOMYCIN LEVEL, RANDOM Routine 11/25/2018 6:13 PM ACCOUNTING FILE CLERK HEPATITIS B SURFACE ANTIGEN Routine 11/25/2018 3:08 PM ACCOUNTING FILE CLERK APTT Routine 11/25/2018 3:08 PM ACCOUNTING FILE CLERK HEMODIALYSIS INPATIENT Routine 11/25/2018 3:01 PM ACCOUNTING FILE CLERK APTT Routine 11/25/2018 12:10 PM ACCOUNTING FILE CLERK BASIC METABOLIC PANEL (7) STAT 11/25/2018 12:10 PM ACCOUNTING FILE CLERK POCT-GLUCOSE METER Routine 11/25/2018 7:44 AM ACCOUNTING FILE CLERK APTT Routine 11/25/2018 6:23 AM ACCOUNTING FILE CLERK CBC W/PLT COUNT & AUTO STAT 11/25/2018 5:35 AM ACCOUNTING FILE CLERK Results for this DIFFERENTIAL procedure are in the results section. CBC W/PLT COUNT & AUTO STAT 11/25/2018 5:35 AM ACCOUNTING FILE CLERK Results for this DIFFERENTIAL procedure are in the results section. APTT Routine 11/24/2018 11:39 PM ACCOUNTING FILE CLERK PHOSPHORUS Routine 11/24/2018 11:39 PM ACCOUNTING FILE CLERK MAGNESIUM Routine 11/24/2018 11:39 PM ACCOUNTING FILE CLERK BASIC METABOLIC PANEL (7) STAT 11/24/2018 11:39 PM ACCOUNTING FILE CLERK POCT-GLUCOSE METER Routine 11/24/2018 10:04 PM ACCOUNTING FILE CLERK POCT-GLUCOSE METER Routine 11/24/2018 5:17 PM ACCOUNTING FILE CLERK APTT Routine 11/24/2018 4:43 PM ACCOUNTING FILE CLERK PT/APTT Routine 11/24/2018 4:43 PM ACCOUNTING FILE CLERK POCT-GLUCOSE METER Routine 11/24/2018 12:28 PM ACCOUNTING FILE CLERK APTT Routine 11/24/2018 9:37 AM ACCOUNTING FILE CLERK POCT-GLUCOSE METER Routine 11/24/2018 7:38 AM ACCOUNTING FILE CLERK CBC W/PLT COUNT & AUTO STAT 11/24/2018 4:03 AM ACCOUNTING FILE CLERK Results for this DIFFERENTIAL procedure are in the results section. PHOSPHORUS Routine 11/24/2018 4:03 AM ACCOUNTING FILE CLERK MAGNESIUM Routine 11/24/2018 4:03 AM ACCOUNTING FILE CLERK TROPONIN I Routine 11/24/2018 4:03 AM ACCOUNTING FILE CLERK B-TYPE NATRIURETIC FACTOR Routine 11/24/2018 4:03 AM ACCOUNTING FILE CLERK Results for this (BNP) procedure are in the results section. CBC W/PLT COUNT & AUTO STAT 11/24/2018 4:03 AM ACCOUNTING FILE CLERK Results for this DIFFERENTIAL procedure are in the results section. BASIC METABOLIC PANEL (7) STAT 11/24/2018 4:03 AM ACCOUNTING FILE CLERK LACTIC ACID, VENOUS Routine 11/24/2018 4:03 AM ACCOUNTING FILE CLERK POCT-GLUCOSE METER Routine 11/23/2018 9:54 PM ACCOUNTING FILE CLERK POCT-GLUCOSE METER Routine 11/23/2018 6:00 PM ACCOUNTING FILE CLERK BLOOD CULTURE Routine 11/23/2018 3:40 PM ACCOUNTING FILE CLERK POCT-GLUCOSE METER Routine 11/23/2018 12:58 PM ACCOUNTING FILE CLERK VANCOMYCIN LEVEL, RANDOM Routine 11/23/2018 12:54 PM ACCOUNTING FILE CLERK CATHETER TIP CULTURE STAT 11/23/2018 12:54 PM ACCOUNTING FILE CLERK IR CENTRAL VENOUS CATHETER STAT 11/23/2018 12:38 PM ACCOUNTING FILE CLERK Results for this PLACEMENT (JUGULAR OR procedure are in the FEMORAL) results section. ECG 12-LEAD Routine 11/23/2018 9:30 AM ACCOUNTING FILE CLERK Procedure Note - Interface, External Ris In - 11/23/2018 9:37 AM ACCOUNTING FILE CLERK Ventricular Rate 92 BPM Atrial Rate 92 BPM P-R Interval 156 ms QRS Duration 162 ms Q-T Interval 418 ms QTC Calculation(Bazett) 516 ms P [place] 52 degrees R [place] 38 degrees T [place] 103 degrees Normal sinus rhythm Left bundle branch block Abnormal ECG When compared with ECG of 22-NOV-2018 16:47, No significant change was found ECG 12-LEAD STAT 11/23/2018 9:30 AM ACCOUNTING FILE CLERK ECHOCARDIOGRAM REPORT - SCAN 11/23/2018 9:00 AM ACCOUNTING FILE CLERK XR ABDOMEN 1 VIEW STAT 11/23/2018 8:35 AM ACCOUNTING FILE CLERK CALCIUM, IONIZED Routine 11/23/2018 7:27 AM ACCOUNTING FILE CLERK CBC W/PLT COUNT & AUTO STAT 11/23/2018 7:00 AM ACCOUNTING FILE CLERK Results for this DIFFERENTIAL procedure are in the results section. LIPASE STAT 11/23/2018 7:00 AM ACCOUNTING FILE CLERK TROPONIN I JORDYN 11/23/2018 7:00 AM ACCOUNTING FILE CLERK PHOSPHORUS Routine 11/23/2018 7:00 AM ACCOUNTING FILE CLERK MAGNESIUM Routine 11/23/2018 7:00 AM ACCOUNTING FILE CLERK BASIC METABOLIC PANEL (7) Routine 11/23/2018 7:00 AM ACCOUNTING FILE CLERK COMPREHENSIVE METABOLIC Routine 11/23/2018 7:00 AM ACCOUNTING FILE CLERK Results for this PANEL procedure are in the results section. CBC W/PLT COUNT & AUTO STAT 11/23/2018 7:00 AM ACCOUNTING FILE CLERK Results for this DIFFERENTIAL procedure are in the results section. LACTIC ACID, VENOUS Routine 11/23/2018 7:00 AM ACCOUNTING FILE CLERK PHOSPHORUS Routine 11/23/2018 1:26 AM ACCOUNTING FILE CLERK MAGNESIUM Routine 11/23/2018 1:26 AM ACCOUNTING FILE CLERK CALCIUM, IONIZED Routine 11/23/2018 1:26 AM ACCOUNTING FILE CLERK BASIC METABOLIC PANEL (7) Routine 11/23/2018 1:26 AM ACCOUNTING FILE CLERK POCT-GLUCOSE METER Routine 11/23/2018 12:27 AM ACCOUNTING FILE CLERK TROPONIN I Routine 11/22/2018 10:08 PM ACCOUNTING FILE CLERK LACTIC ACID, VENOUS STAT 11/22/2018 10:08 PM ACCOUNTING FILE CLERK US ABDOMEN COMPLETE STAT 11/22/2018 6:56 PM ACCOUNTING FILE CLERK LACTIC ACID, VENOUS STAT 11/22/2018 6:36 PM ACCOUNTING FILE CLERK XR CHEST 1 VIEW STAT 11/22/2018 4:48 PM ACCOUNTING FILE CLERK Results for this PORTABLE/BEDSIDE procedure are in the results section. ECG 12-LEAD Routine 11/22/2018 4:47 PM ACCOUNTING FILE CLERK Procedure Note - Interface, External Ris In - 11/22/2018 5:11 PM ACCOUNTING FILE CLERK Ventricular Rate 91 BPM Atrial Rate 91 BPM P-R Interval 162 ms QRS Duration 172 ms Q-T Interval 442 ms QTC Calculation(Bazett) 543 ms P Sheffield 6 degrees R Sheffield -18 degrees T Sheffield 70 degrees Normal sinus rhythm Left bundle branch block Abnormal ECG No previous ECGs available ECG 12-LEAD Routine 11/22/2018 4:47 PM ACCOUNTING FILE CLERK BLOOD GAS, ARTERIAL STAT 11/22/2018 4:25 PM ACCOUNTING FILE CLERK BLOOD CULTURE STAT 11/22/2018 4:25 PM ACCOUNTING FILE CLERK (CELLAVISION MANUAL DIFF) Routine 11/22/2018 4:19 PM ACCOUNTING FILE CLERK CBC W/PLT COUNT & AUTO STAT 11/22/2018 4:19 PM ACCOUNTING FILE CLERK Results for this DIFFERENTIAL procedure are in the results section. VANCOMYCIN LEVEL, RANDOM STAT 11/22/2018 4:19 PM ACCOUNTING FILE CLERK B-TYPE NATRIURETIC FACTOR Routine 11/22/2018 4:19 PM ACCOUNTING FILE CLERK Results for this (BNP) procedure are in the results section. TSH/FREE T4 IF INDICATED Routine 11/22/2018 4:19 PM ACCOUNTING FILE CLERK TROPONIN I Routine 11/22/2018 4:19 PM ACCOUNTING FILE CLERK CBC W/PLT COUNT & AUTO STAT 11/22/2018 4:19 PM ACCOUNTING FILE CLERK Results for this DIFFERENTIAL procedure are in the results section. PROTHROMBIN TIME/INR STAT 11/22/2018 4:19 PM ACCOUNTING FILE CLERK MAGNESIUM STAT 11/22/2018 4:19 PM ACCOUNTING FILE CLERK PHOSPHORUS STAT 11/22/2018 4:19 PM ACCOUNTING FILE CLERK BASIC METABOLIC PANEL (7) STAT 11/22/2018 4:19 PM ACCOUNTING FILE CLERK HEPATIC FUNCTION PANEL STAT 11/22/2018 4:19 PM ACCOUNTING FILE CLERK OXYGEN SATURATION, MEASURED STAT 11/22/2018 4:19 PM ACCOUNTING FILE CLERK PROCALCITONIN STAT 11/22/2018 4:19 PM ACCOUNTING FILE CLERK LACTIC ACID, VENOUS STAT 11/22/2018 4:19 PM ACCOUNTING FILE CLERK BLOOD CULTURE IDENTIFICATION Routine 11/22/2018 4:19 PM ACCOUNTING FILE CLERK Results for this PANEL procedure are in the results section. BLOOD CULTURE STAT 11/22/2018 4:19 PM ACCOUNTING FILE CLERK 2D ECHO W/ DOPPLER STAT 11/22/2018 3:51 PM ACCOUNTING FILE CLERK Results for this (CW/PW/COLOR) procedure are in the results section. after 03/13/2018 Results EKG-SCANNED (12/28/2018 10:30 AM ACCOUNTING FILE CLERK) Narrative Performed At RHYTHM STRIP - SCAN (12/28/2018 10:30 AM ACCOUNTING FILE CLERK) Narrative Performed At POC-Glucose meter (12/08/2018 9:14 AM ACCOUNTING FILE CLERK)Only the most recent of56 resultswithin the time period is included. POC-Glucose Meter 110Comment: TESTED AT 70 - 110 mg/dL [facility] [address] [facility] [id number] Specimen Blood Performing Organization Address City/State/Zipcode Phone Number [facility] [address] [place], [place] [phone] CENTER CBC with platelet count + automated diff (12/08/2018 5:56 AM ACCOUNTING FILE CLERK)Only the most recent of16 resultswithin the time period is included. WBC 8.2 3.5 - 10.5 K/L [facility] RBC 2.79 (L) 3.93 - 5.22 M/L [facility] Hemoglobin 7.8 (L) 11.2 - 15.7 GM/DL [facility] Hematocrit 26.4 (L) 34.1 - 44.9 % [facility] MCV 94.6 79.4 - 94.8 fL [facility] MCH 28.0 25.6 - 32.2 pg [facility] MCHC 29.5 (L) 32.2 - 35.5 GM/DL [facility] RDW 14.5 (H) 11.7 - 14.4 % [facility] Platelets 299 150 - 450 K/CU MM [facility] MPV 10.0 9.4 - 12.3 fL [facility] nRBC 0 0 - 0 /100 WBC [facility] % Neutros 72 % [facility] % Lymphs 11 % [facility] % Monos 10 % [facility] % Eos 5 % [facility] % Baso 1 % [facility] # Neutros 5.93 1.56 - 6.13 K/L [facility] # Lymphs 0.87 (L) 1.18 - 3.74 K/L [facility] # Monos 0.84 (H) 0.24 - 0.36 K/L [facility] # Eos 0.44 (H) 0.04 - 0.36 K/L [facility] # Baso 0.09 (H) 0.01 - 0.08 K/L [facility] Immature Granulocytes-Relative 1 0 - 1 % [facility] Specimen Blood - Arm, Left Performing Organization Address City/[facility]/Zipcode Phone Number [address] [address] [phone] [place] Basic Metabolic Panel (12/08/2018 5:56 AM ACCOUNTING FILE CLERK)Only the most recent of18 resultswithin the time period is included. Sodium 139 136 - 145 meq/L [facility] Potassium 4.3 3.5 - 5.1 meq/L [facility] Chloride 104 98 - 107 meq/L [facility] CO2 26 22 - 29 meq/L [facility] BUN 31 (H) 7 - 21 mg/dL [facility] Creatinine 5.39 (H) 0.57 - 1.25 mg/dL [facility] Glucose 83 70 - 105 mg/dL [facility] Calcium 9.1 8.4 - 10.2 mg/dL [facility] EGFR 10Comment: ESTIMATED GFR IS mL/min/1.73 sq m [facility] NOT ACCURATE CREATININE [facility] CLEARANCE IN PREDICTING GLOMERULAR FILTRATION RATE. ESTIMATED GFR IS NOT APPLICABLE FOR DIALYSIS PATIENTS. Specimen Blood - Arm, Left Performing Organization Address City/[facility]/Zipcode Phone Number [facility] [address] [place] [address] [place] XR abdomen / KUB 1 view (12/07/2018 6:43 PM ACCOUNTING FILE CLERK)Only the most recent of2 resultswithin the time period is included. Narrative Performed At FINAL REPORT [facility] EXAMINATION: SUPINE ABDOMEN CLINICAL INDICATION: Abdominal pain IMPRESSION: Compared with 11/23/2018. A large volume of inspissated stool is noted throughout the colon suggesting dysmotility-constipation. The bowel gas pattern is otherwise nonspecific. Evaluation for free air below the diaphragm and air-fluid levels within the bowel is limited by supine patient positioning. If there is persistent clinical concern, consider CT for further evaluation. Signed: Coy Medel MD Report Verified Date/Time:12/08/2018 04:19:23 Reading Location: [address] Reading Room Procedure Note Interface, External Ris In - 12/08/2018 4:21 AM ACCOUNTING FILE CLERK FINAL REPORT EXAMINATION: SUPINE ABDOMEN CLINICAL INDICATION: Abdominal pain IMPRESSION: Compared with 11/23/2018. A large volume of inspissated stool is noted throughout the colon suggesting dysmotility-constipation. The bowel gas pattern is otherwise nonspecific. Evaluation for free air below the diaphragm and air-fluid levels within the bowel is limited by supine patient positioning. If there is persistent clinical concern, consider CT for further evaluation. Signed: Coy Medel MD Report Verified Date/Time: 12/08/2018 04:19:23 Reading Location: [address] Reading Room Performing Organization Address City/State/Zipcode Phone Number [facility] HEMODIALYSIS INPATIENT (12/07/2018 12:46 PM ACCOUNTING FILE CLERK) Narrative Performed At Khai Angeles RN 12/07/2018 12:46 PM Pt dialyzed for 3 hrs via left IJ tunneled catheter. Tolerated treatment well, NET UF=3.2L. Lab Results Component Value Date WBC 11.4 (H) 12/07/2018 HGB 7.2 (L) 12/07/2018 HCT 23.4 (L) 12/07/2018 MCV 91.4 12/07/2018 PLT 246 12/07/2018 Lab Results Component Value Date HEPBSAG Nonreactive 11/25/2018 ] Lab Results Component Value Date GLUCOSE 131 (H) 12/07/2018 CALCIUM 9.1 12/07/2018 NA 137 12/07/2018 K 4.2 12/07/2018 CO2 28 12/07/2018 CL 98 12/07/2018 BUN 46 (H) 12/07/2018 CREATININE 6.96 (H) 12/07/2018 Coag Profile: Protime Date Value Ref Range Status 12/02/2018 14.1 11.7 - 14.7 seconds Final INR Date Value Ref Range Status 12/02/2018 1.1 <=5.9 Final PTT Date Value Ref Range Status 12/06/2018 85.3 (H) 22.5 - 36.0 seconds Final Magnesium (12/07/2018 5:32 AM ACCOUNTING FILE CLERK)Only the most recent of7 resultswithin the time period is included. Magnesium 2.2 1.6 - 2.6 mg/dL [facility] Specimen Blood - Arm, Right Performing Organization Address City/[facility]/Zipcode Phone Number [address] [address] CENTER Blood culture (12/06/2018 2:55 PM ACCOUNTING FILE CLERK)Only the most recent of6 resultswithin the time period is included. Result No growth in 5 days [facility] Specimen Blood - Arm, Right Performing Organization Address City/State/Zipcode Phone Number [address] [address] CENTER NM myocardial perfusion SPECT, pharm(Lexiscan) (12/06/2018 1:20 PM ACCOUNTING FILE CLERK) Narrative Performed At FINAL REPORT [facility] PROCEDURE:Rest/Stress MYOCARDIAL PERFUSION SPECT with regadenoson\\XA9\\ CPT CODE:80236 INDICATION:New onset heart failure, intermediate risk for coronary artery disease HISTORY:Cardiac risk factors: ESRD, diabetes, hypertension. Other cardiovascular history: heart failure, LBBB. Current cardiovascular-related medications: Lipitor, Lasix, metoprolol, aspirin. PROTOCOL:10.4 mCi of Tc-99m sestamibi was injected iv at rest, and SPECT (tomographic) images were obtained. Also, 29.1 mCi of Tc-99m sestamibi was injected iv at expected peak pharmacologic effect, and gated SPECT images were obtained. PRELIMINARY STRESS TEST DATA FROM NONINVASIVE CARDIOLOGY: Pharmacologic stress was by 10-second iv infusion of 0.4 mg of regadenoson. Radiotracer was injected 30 seconds after start of stress. Heart rate was 91 beats/min at rest and 94 beats/min (59 % of MPHR) at tracer injection. BP was 163/78 mmHg at rest and 153/60 mmHg at tracer injection. Stress was stopped for predetermined endpoint. The patient experienced dyspnea; treatment was not required. Preliminary ECG evaluation revealed sinus rhythm and LBBB at rest and no ischemic changes with stress. (Final ECG interpretation and other stress and monitoring data are reported separately by Cardiology.) IMAGING FINDINGS:Study quality is poor. Post-stress images irregular tracer distribution. Also noted is substantial soft tissue attenuation effect, patient motion, and persistent activity in the liver and GI tract adjacent to the inferior LV. The patient refused reimaging. Resting images show similar findings. LV volume appears normal. RV is not well visualized. Gated images obtained at rest after stress injection show multifocal wall motion abnormality, worst in the anteroseptal region. QGS LVEF is 48%. IMPRESSION: 1. Abnormal study.2. Appropriate pharmacologic stress.3. Equivocal myocardial perfusion. While there is irregularity of perfusion, multiple scan artifacts prohibit accurate assessment of regional perfusion. 4. Overall resting LV function is mildly decreased with evidence of connection abnormality and regional hypokinesis.5. Extracardiac tracer distribution is normal.6. No previous [facility] study for comparison. Signed: Dariana Jones MD Report Verified Date/Time:12/06/2018 16:00:51 Reading Location: [address] Reading Room Procedure Note Interface, External Ris In - 12/06/2018 4:03 PM ACCOUNTING FILE CLERK FINAL REPORT PROCEDURE: Rest/Stress MYOCARDIAL PERFUSION SPECT with regadenoson\\XA9\\ CPT CODE: 87521 INDICATION: New onset heart failure, intermediate risk for coronary artery disease HISTORY: Cardiac risk factors: ESRD, diabetes, hypertension. Other cardiovascular history: heart failure, LBBB. Current cardiovascular-related medications: Lipitor, Lasix, metoprolol, aspirin. PROTOCOL: 10.4 mCi of Tc-99m sestamibi was injected iv at rest, and SPECT (tomographic) images were obtained. Also, 29.1 mCi of Tc-99m sestamibi was injected iv at expected peak pharmacologic effect, and gated SPECT images were obtained. PRELIMINARY STRESS TEST DATA FROM NONINVASIVE CARDIOLOGY: Pharmacologic stress was by 10-second iv infusion of 0.4 mg of regadenoson. Radiotracer was injected 30 seconds after start of stress. Heart rate was 91 beats/min at rest and 94 beats/min (59 % of MPHR) at tracer injection. BP was 163/78 mmHg at rest and 153/60 mmHg at tracer injection. Stress was stopped for predetermined endpoint. The patient experienced dyspnea; treatment was not required. Preliminary ECG evaluation revealed sinus rhythm and LBBB at rest and no ischemic changes with stress. (Final ECG interpretation and other stress and monitoring data are reported separately by Cardiology.) IMAGING FINDINGS: Study quality is poor. Post-stress images irregular tracer distribution. Also noted is substantial soft tissue attenuation effect, patient motion, and persistent activity in the liver and GI tract adjacent to the inferior LV. The patient refused reimaging. Resting images show similar findings. LV volume appears normal. RV is not well visualized. Gated images obtained at rest after stress injection show multifocal wall motion abnormality, worst in the anteroseptal region. QGS LVEF is 48%. IMPRESSION: 1. Abnormal study. 2. Appropriate pharmacologic stress. 3. Equivocal myocardial perfusion. While there is irregularity of perfusion, multiple scan artifacts prohibit accurate assessment of regional perfusion. 4. Overall resting LV function is mildly decreased with evidence of connection abnormality and regional hypokinesis. 5. Extracardiac tracer distribution is normal. 6. No previous [facility] study for comparison. Signed: Dariana Jones MD Report Verified Date/Time: 12/06/2018 16:00:51 Reading Location: [address] Reading Room Performing Organization Address City/State/Zipcode Phone Number [employer] [facility]AY Treadmill tolerance(Non-Nuclear Treadmill) (12/06/2018 9:38 AM ACCOUNTING FILE CLERK) Narrative Performed At Protocol Name [employer] Time In Exercise Phase 00:01:00 Max. Systolic BP 153 mmHg Max Diastolic BP 60 mmHg Max Heart Rate 94 BPM Max Predicted Heart Rate 158 BPM Reason For Termination Predetermined end point Reason for Test CAd Risk, Intermediate,Asymptomatic, New Onset CH Target HR Formula (220 - Age)*100% Arrhythmias none Resting ECG Normal sinus rhythm Left bundle branch block ST Changes No Significant Changes Overall Impression Indeterminate due to pharmacological stress Chest Pain none HR Response To Exercise BP Response To Exercise Lipitor, Lasix,Metoprolol ECASA Confirmed by fellow Beck Campa ([id number]) on 12/06/2018 10:22:29 AM Confirmed by MD GOLDBERG JORGE ([id number]) on 12/20/2018 12:25:53 PM Procedure Note Interface, External Ris In - 12/20/2018 12:26 PM ACCOUNTING FILE CLERK Protocol Name Lexiscan Time In Exercise Phase 00:01:00 Max. Systolic BP 153 mmHg Max Diastolic BP 60 mmHg Max Heart Rate 94 BPM Max Predicted Heart Rate 158 BPM Reason For Termination Predetermined end point Reason for Test CAd Risk, Intermediate,Asymptomatic, New Onset CH Target HR Formula (220 - Age)*100% Arrhythmias none Resting ECG Normal sinus rhythm Left bundle branch block ST Changes No Significant Changes Overall Impression Indeterminate due to pharmacological stress Chest Pain none HR Response To Exercise BP Response To Exercise Lipitor, Lasix,Metoprolol ECASA Confirmed by fellow Beck Campa ([id number]) on 12/06/2018 10:22:29 AM Confirmed by MD GOLDBERG JORGE ([id number]) on 12/20/2018 12:25:53 PM Performing Organization Address City/State/[facility] Phone Number GE MUSE ECG 12 lead (12/06/2018 9:03 AM ACCOUNTING FILE CLERK)Only the most recent of3 resultswithin the time period is included. Narrative Performed At Ventricular Rate 91 BPM GE MUSE Atrial Rate 91 BPM P-R Interval 172 ms QRS Duration 152 ms Q-T Interval 422 ms QTC Calculation(Bazett) 519 ms P Sheffield 68 degrees R Sheffield 67 degrees T Sheffield 79 degrees Normal sinus rhythm Left bundle branch block Abnormal ECG Confirmed by MD Denny Roberto ([id number]) on 12/06/2018 2:16:39 PM Procedure Note Interface, External Ris In - 12/06/2018 2:16 PM ACCOUNTING FILE CLERK Ventricular Rate 91 BPM Atrial Rate 91 BPM P-R Interval 172 ms QRS Duration 152 ms Q-T Interval 422 ms QTC Calculation(Bazett) 519 ms P Sheffield 68 degrees R Sheffield 67 degrees T Sheffield 79 degrees Normal sinus rhythm Left bundle branch block Abnormal ECG Confirmed by MD Eduin, Narciso ([id number]) on 12/06/2018 2:16:39 PM Performing Organization Address City/State/[facility] Phone Number GE MUSE aPTT (12/06/2018 1:11 AM ACCOUNTING FILE CLERK)Only the most recent of20 resultswithin the time period is included. PTT 85.3 (H) 22.5 - 36.0 seconds [facility] Specimen Blood - Arm, Left Performing Organization Address [facility] Phone Number [facility] [address] [place] [phone] CENTER Vancomycin level, random (12/06/2018 1:11 AM ACCOUNTING FILE CLERK)Only the most recent of10 resultswithin the time period is included. Vancomycin Rm 18.7 ug/mL [facility] Specimen Blood - Arm, Left Narrative Performed At Reference Range: No Normals [facility] Performing Organization Address [facility] Phone Number [facility] [address] [place] [phone] CENTER TRANSFUSION SERVICE REPORT - SCAN (12/05/2018 5:50 PM ACCOUNTING FILE CLERK)Only the most recent of4 resultswithin the time period is included. Narrative Performed At Prepare Leuko-Red RBC (12/04/2018 11:54 PM ACCOUNTING FILE CLERK)Only the most recent of2 resultswithin the time period is included. CROSSMATCH COMPATIBLE SAFETRACE TX Unit ABO A Neg SAFETRACE TX UNIT NUMBER [id number] SAFETRACE TX Status TRANSFUSED SAFETRACE TX Blood Bank Product RED BLOOD CELLS SAFETRACE TX PRODUCT CODE [id number] SAFETRACE TX Specimen Other Performing Organization Address City/[facility] Phone Number SAFETRACE TX Transfuse Leuko-Red RBC (12/03/2018 3:10 PM ACCOUNTING FILE CLERK)Only the most recent of4 resultswithin the time period is included.Type and screen, automated (2018 8:46 AM ACCOUNTING FILE CLERK)Only the most recent of2 resultswithin the time period is included. ABO/RH AUTOMATED (BEAKER) A NEGATIVE [facility] Ab Scrn NEGATIVE [facility] Specimen Blood Performing Organization Address City/State/Zipcode Phone Number [facility] [address] [place] [address] HEMODIALYSIS INPATIENT (12/02/2018 9:15 PM ACCOUNTING FILE CLERK) Narrative Performed At Meenakshi No RN 12/02/20189:20 PM Hd completed for 4 hours with UF-2L. Pt's bp dropped at the end of HD. Pt given Ns 500 ml bolus. Pt responded to the bolus and blood pressure stabilize. Pt alert , awake. No distress. [facility] BP 127/61 (BP Location: Right arm, Patient Position: Lying)| Pulse 93| Temp 99.5 F (37.5 C) (Oral)| Resp 20| Ht 1.702 m (5' 7")| Wt 88.5 kg (195 lb 1.7 oz)| LMP(LMP Unknown)| SpO2 94%| BMI 30.56 kg/m Allergies Allergen Reactions Amoxicillin Amlodipine Hives and Rash Penicillins Itching and Rash No results found for: HEPBSAB Lab Results Component Value Date GLUCOSE 148 (H) 12/02/2018 K 4.0 12/02/2018 CALCIUM 9.1 12/02/2018 NA 137 12/02/2018 CO2 30 (H) 12/02/2018 CL 97 (L) 12/02/2018 BUN 46 (H) 12/02/2018 CREATININE 6.47 (H) 12/02/2018 Lab Results Component Value Date WBC 13.3 (H) 12/02/2018 HCT 24.1 (L) 12/02/2018 MCV 93.9 12/02/2018 PLT 304 12/02/2018 MEENAKSHI NO RN IR Tunneled Catheter Insertion (12/02/2018 1:10 PM ACCOUNTING FILE CLERK) Narrative Performed At FINAL REPORT [facility] History: Need for long-term hemodialysis access, malfunctioning Wesley catheter.. Procedure: Following informed written consent, the patient's left cervical region and anterior chest wall and existing nontunneled left internal jugular dialysis catheter were prepped and draped in the usual sterile manner. Maximum sterile barrier techniques were utilized. 2% lidocaine was given locally for anesthesia. No conscious sedation was administered. Continuous patient monitoring were performed by the attending radiologist and a registered nurse for approximately 20 minutes during the procedure. The existing left internal jugular nontunneled dialysis catheter was withdrawn slightly into the left internal jugular vein and a central venogram was performed through the catheter. Existing left internal jugular access site was then utilized and the existing nontunneled catheter was removed over a wire.. A subcutaneous tunnel was created in the anterior chest wall. A 23 cm Duraflow catheter was tunneled and following serial dilatation of the tract, placed through a peel-away sheath and into position within the superior right atrium under fluoroscopic control. The catheter was secured to the skin using 2-0 Prolene suture. The small incision site was closed using 2-0 chromic suture. There were no immediate complications. Findings: Spot radiograph following catheter insertion demonstrates the left internal jugular tunneled dialysis catheter to lie in expected position with its tip in the superior right atrium. No pneumothorax. Limited central venogram performed through the previous nontunneled dialysis catheter demonstrated patent brachiocephalic vein and superior vena cava without evidence for stenosis or obstruction. Impression: 1. Successful uncomplicated conversion of the patient's existing left internal jugular nontunneled dialysis catheter to a tunneled catheter as described above. 2. Normal superior venacavogram without evidence for central obstruction.. Fluoroscopy time: 0.7 mins Estimated dose reported as (Ka,r): 89 mGy Signed: Aamir Aguero MD Report Verified Date/Time:12/06/2018 14:29:30 Reading Location: [place] [address] Angio Body Reading Room Procedure Note Interface, External Ris In - 12/06/2018 2:31 PM ACCOUNTING FILE CLERK FINAL REPORT History: Need for long-term hemodialysis access, malfunctioning Wesley catheter.. Procedure: Following informed written consent, the patient's left cervical region and anterior chest wall and existing nontunneled left internal jugular dialysis catheter were prepped and draped in the usual sterile manner. Maximum sterile barrier techniques were utilized. 2% lidocaine was given locally for anesthesia. No conscious sedation was administered. Continuous patient monitoring were performed by the attending radiologist and a registered nurse for approximately 20 minutes during the procedure. The existing left internal jugular nontunneled dialysis catheter was withdrawn slightly into the left internal jugular vein and a central venogram was performed through the catheter. Existing left internal jugular access site was then utilized and the existing nontunneled catheter was removed over a wire.. A subcutaneous tunnel was created in the anterior chest wall. A 23 cm Duraflow catheter was tunneled and following serial dilatation of the tract, placed through a peel-away sheath and into position within the superior right atrium under fluoroscopic control. The catheter was secured to the skin using 2-0 Prolene suture. The small incision site was closed using 2-0 chromic suture. There were no immediate complications. Findings: Spot radiograph following catheter insertion demonstrates the left internal jugular tunneled dialysis catheter to lie in expected position with its tip in the superior right atrium. No pneumothorax. Limited central venogram performed through the previous nontunneled dialysis catheter demonstrated patent brachiocephalic vein and superior vena cava without evidence for stenosis or obstruction. Impression: 1. Successful uncomplicated conversion of the patient's existing left internal jugular nontunneled dialysis catheter to a tunneled catheter as described above. 2. Normal superior venacavogram without evidence for central obstruction.. Fluoroscopy time: 0.7 mins Estimated dose reported as (Ka,r): 89 mGy Signed: aAmir Aguero MD Report Verified Date/Time: 12/06/2018 14:29:30 Reading Location: [place] [address] Angio Body Reading Room Performing Organization Address City/[facility] Cent[facility]ode Phone Number GE RIS Hemoglobin and hematocrit (12/02/2018 8:24 AM ACCOUNTING FILE CLERK)Only the most recent of3 resultswithin the time period is included. Hemoglobin 7.2 (L) 11.2 - 15.7 GM/DL [facility] Hematocrit 24.1 (L) 34.1 - 44.9 % [facility] Specimen Blood Performing Organization Address City/[facility]/Zipcode Phone Number [facility] [address] [place] [address] CENTER PT/aPTT (12/02/2018 5:42 AM ACCOUNTING FILE CLERK)Only the most recent of2 resultswithin the time period is included. Protime 14.1 11.7 - 14.7 seconds [facility] INR 1.1 <=5.9 [facility] PTT 39.6 (H) 22.5 - 36.0 seconds [facility] Specimen Blood Narrative Performed At RECOMMENDED COUMADIN/WARFARIN INR THERAPY [facility] RANGES STANDARD DOSE: 2.0 - 3.0 Includes: PROPHYLAXIS for venous thrombosis, systemic embolization; TREATMENT for venous thrombosis and/or pulmonary embolus. HIGH RISK: Target INR is 2.5-3.5 for patients with mechanical heart valves. Performing Organization Address City/State/Zipcode Phone Number [facility] [address] [place] [address] [phone] CENTER MR lower extremity joint only without IV contrast right side (12/01/2018 7:00 PM ACCOUNTING FILE CLERK) Narrative Performed At FINAL REPORT [facility] Indication: Right hip pain TECHNIQUE: Multiplanar multisequence MRI examination of the right hip was performed without intravenous contrast. COMPARISON: None FINDINGS: There is no fracture or traumatic malalignment. There is diffuse heterogeneous marrow signal without a suspicious mass. No acetabular labral tear or paralabral cyst is detected. There is no joint effusion. There is subcutaneous edema lateral to the greater trochanter without fluid collection or hematoma. There is mild edema in the right gluteus loretta and gluteus medius muscles suggestive of strain or nonspecific myositis without tear. There is no muscle atrophy. There is a low-grade partial tear of the right gluteus medius tendon distally. There is wall thickening of the urinary bladder which can be correlated with urinalysis. There are uterine fibroids. There is no lymphadenopathy. Mild degenerative changes are seen in the bilateral hips. There is no bony erosion or osteonecrosis. IMPRESSION: 1. No fracture or traumatic malalignment. 2. Mild degenerative changes of the bilateral hips. 3. Subcutaneous edema lateral to the greater trochanter without fluid collection or hematoma. 4. Mild edema in the right gluteus maximize and medius muscles. Partial tear of the right gluteus medius tendon distally. 5. Wall thickening of the urinary bladder can be correlated with urinalysis. Uterine fibroids. Signed: Jayson Duque MD Report Verified Date/Time:12/02/2018 09:05:25 Reading Location: [facility] C013X Ortho Consult Reading Room Procedure Note Interface, External Ris In - 12/02/2018 9:07 AM ACCOUNTING FILE CLERK FINAL REPORT Indication: Right hip pain TECHNIQUE: Multiplanar multisequence MRI examination of the right hip was performed without intravenous contrast. COMPARISON: None FINDINGS: There is no fracture or traumatic malalignment. There is diffuse heterogeneous marrow signal without a suspicious mass. No acetabular labral tear or paralabral cyst is detected. There is no joint effusion. There is subcutaneous edema lateral to the greater trochanter without fluid collection or hematoma. There is mild edema in the right gluteus loretta and gluteus medius muscles suggestive of strain or nonspecific myositis without tear. There is no muscle atrophy. There is a low-grade partial tear of the right gluteus medius tendon distally. There is wall thickening of the urinary bladder which can be correlated with urinalysis. There are uterine fibroids. There is no lymphadenopathy. Mild degenerative changes are seen in the bilateral hips. There is no bony erosion or osteonecrosis. IMPRESSION: 1. No fracture or traumatic malalignment. 2. Mild degenerative changes of the bilateral hips. 3. Subcutaneous edema lateral to the greater trochanter without fluid collection or hematoma. 4. Mild edema in the right gluteus maximize and medius muscles. Partial tear of the right gluteus medius tendon distally. 5. Wall thickening of the urinary bladder can be correlated with urinalysis. Uterine fibroids. Signed: Jayson Duque MD Report Verified Date/Time: 12/02/2018 09:05:25 Reading Location: [facility] B1 C013X Ortho Consult Reading Room Performing Organization Address City/State/Zipcode Phone Number GE RIS XR hip 1 view right (12/01/2018 11:16 AM ACCOUNTING FILE CLERK) Narrative Performed At FINAL REPORT GE castaclip RAD, HIP, 1 VIEW, RIGHT CLINICAL INDICATION: R hip pain COMPARISON: None FINDINGS: Single AP view of the pelvis Frontal and frogleg views of the right hip. Limited by body habitus. There is no fracture or malalignment. The sacroiliac joints, hip joints and symphysis pubis appear intact. Periarticular fat stripes are in place. Surrounding soft tissues are unremarkable. IMPRESSION: No acute or traumatic abnormality of the pelvis or right hip. Signed: JR Cuenca Robert MD Report Verified Date/Time:12/01/2018 11:34:51 Reading Location: [facility] Radiology Reading Room Procedure Note Interface, External Ris In - 12/01/2018 12:16 PM ACCOUNTING FILE CLERK FINAL REPORT RAD, HIP, 1 VIEW, RIGHT CLINICAL INDICATION: R hip pain COMPARISON: None FINDINGS: Single AP view of the pelvis Frontal and frogleg views of the right hip. Limited by body habitus. There is no fracture or malalignment. The sacroiliac joints, hip joints and symphysis pubis appear intact. Periarticular fat stripes are in place. Surrounding soft tissues are unremarkable. IMPRESSION: No acute or traumatic abnormality of the pelvis or right hip. Signed: JR Cuenca Robert MD Report Verified Date/Time: 12/01/2018 11:34:51 Reading Location: [facility] Radiology Reading Room Performing Organization Address [facility] Centercode Phone Number GE RIS Gentamicin level, trough (11/30/2018 8:57 PM ACCOUNTING FILE CLERK) Gentamicin Trough 1.5 (H) 0.5 - 1.0 ug/mL [facility] Specimen Blood Narrative Performed At Dosing [facility] Target Level (mcg/mL) 1-1.5 mg/kg q 8-12 HR 0.5-1.0 3-7 mg/kg q 24 HR<0.5 Before gent dose Performing Organization Address [facility]/Zipcode Phone Number [facility] MEDICAL [address] [place] [phone] CENTER HEMODIALYSIS INPATIENT (11/30/2018 4:43 PM ACCOUNTING FILE CLERK) Narrative Performed At Khadijah Leavitt RN 11/30/20187:59 PM Lab Results Component Value Date WBC 15.1 (H) 11/30/2018 HGB 7.4 (L) 11/30/2018 HCT 24.8 (L) 11/30/2018 MCV 92.9 11/30/2018 PLT 303 11/30/2018 Lab Results Component Value Date GLUCOSE 138 (H) 11/30/2018 CALCIUM 8.9 11/30/2018 NA 138 11/30/2018 K 4.1 11/30/2018 CO2 26 11/30/2018 CL 101 11/30/2018 BUN 42 (H) 11/30/2018 CREATININE 6.85 (H) 11/30/2018 Results for ALYSA FLORIAN ( ) as of 11/30/2018 16:44 Ref. Range 11/25/2018 15:08 Hepatitis B Surface Ag Latest Ref Range: NonreactiveNonreactive HD X 4 hours ended 5 minutes early when BP dropped at treatment end.Bl;ood returned and BP improved immediately.Net UF -2.1L. BP borderline throughout treatment and unable to pull original 2.5L. Medicated for pain with [place] X 1 with moderate effect.Patient stated that pain has returned and wants another [place]- not yet due. Pre-meal dinnertime blood glucose not covered as patient did not want to eat dinner yet.Dinner tray sent back to T with patient per patient request.Khadijah Leavitt RN Phosphorus (11/29/2018 5:59 AM ACCOUNTING FILE CLERK)Only the most recent of6 resultswithin the time period is included. Phosphorus 4.1 2.3 - 4.7 mg/dL [facility] Specimen Blood Performing Organization Address City/State/Zipcode Phone Number [facility] MEDICAL [address] [place] [address] [phone] CENTER HEMODIALYSIS INPATIENT (11/28/2018 11:37 PM ACCOUNTING FILE CLERK) Narrative Performed At Yevgeniy Laws RN 11/28/2018 11:40 PM HD completed for 4 hrs. Net UF 2.5 liter. V/s stable. Cath.packed with Heparin as ordered. 1pRBC transfusion. Lab Results Component Value Date GLUCOSE 131 (H) 11/28/2018 CALCIUM 8.4 11/28/2018 NA 137 11/28/2018 K 4.4 11/28/2018 CO2 23 11/28/2018 CL 101 11/28/2018 BUN 56 (H) 11/28/2018 CREATININE 8.16 (H) 11/28/2018 Lab Results Component Value Date WBC 16.6 (H) 11/28/2018 HGB 9.0 (L) 11/28/2018 HCT 29.7 (L) 11/28/2018 MCV 92.2 11/28/2018 PLT 276 11/28/2018 Lab Results Component Value Date HEPBSAG Nonreactive 11/25/2018 ECHOCARDIOGRAM REPORT - SCAN (11/28/2018 1:20 PM ACCOUNTING FILE CLERK) Narrative Performed At CT abdomen/pelvis without iv contrast (11/28/2018 9:19 AM ACCOUNTING FILE CLERK) Narrative Performed At FINAL REPORT [facility] ABDOMINAL AND PELVIS CT DATED 11/28/2018 CLINICAL INFORMATION:Abdominal pain, unspecified TECHNIQUE:Axial images of the abdomen and pelvis were obtained from diaphragm to the pubic symphysis without GI or intravenous contrast. This exam was performed according to our departmental dose-optimization program, which includes automated exposure control, adjustment of the mA and/or kV according to patient size and/or use of interactive reconstruction technique. COMMENT: Subsegmental atelectasis is seen in both lung bases. Liver and spleen are normal in size without focal abnormality. Gallbladder is distended. Multiple small gallstones are present. No biliary dilatation is noted. Pancreas and adrenals are unremarkable. Both kidneys are normal in size. No hydronephrosis, hydroureter, urolithiasis is seen. The small and large bowel are unremarkable. Appendix is normal in caliber. Uterus and ovaries are unremarkable. The urinary bladder is contracted. Hematoma is seen involving the right psoas musculature measuring approximately 3.7 x 3.7 x 7.3 cm. No mass, adenopathy or ascites is present. IMPRESSION: 1. Right psoas hematoma. 2. Cholelithiasis without biliary dilatation. 3. Bibasilar subsegmental atelectasis. The findings were relayed to patient's nurse Jordyn at to the time of the dictation.. Signed: Chitra Aguilera MD Report Verified Date/Time:11/28/2018 09:28:06 Reading Location: [facility] C013Y CT Body Reading Room Procedure Note Interface, External Ris In - 11/28/2018 9:30 AM ACCOUNTING FILE CLERK FINAL REPORT ABDOMINAL AND PELVIS CT DATED 11/28/2018 CLINICAL INFORMATION: Abdominal pain, unspecified TECHNIQUE: Axial images of the abdomen and pelvis were obtained from diaphragm to the pubic symphysis without GI or intravenous contrast. This exam was performed according to our departmental dose-optimization program, which includes automated exposure control, adjustment of the mA and/or kV according to patient size and/or use of interactive reconstruction technique. COMMENT: Subsegmental atelectasis is seen in both lung bases. Liver and spleen are normal in size without focal abnormality. Gallbladder is distended. Multiple small gallstones are present. No biliary dilatation is noted. Pancreas and adrenals are unremarkable. Both kidneys are normal in size. No hydronephrosis, hydroureter, urolithiasis is seen. The small and large bowel are unremarkable. Appendix is normal in caliber. Uterus and ovaries are unremarkable. The urinary bladder is contracted. Hematoma is seen involving the right psoas musculature measuring approximately 3.7 x 3.7 x 7.3 cm. No mass, adenopathy or ascites is present. IMPRESSION: 1. Right psoas hematoma. 2. Cholelithiasis without biliary dilatation. 3. Bibasilar subsegmental atelectasis. The findings were relayed to patient's nurse Jordyn at to the time of the dictation.. Signed: Chitra Aguilera MD Report Verified Date/Time: 11/28/2018 09:28:06 Reading Location: [facility] B1 C013Y CT Body Reading Room Performing Organization Address City/State/Zipcode Phone Number RIS Prothrombin time/INR (11/28/2018 9:01 AM ACCOUNTING FILE CLERK)Only the most recent of2 resultswithin the time period is included. Protime 14.5 11.7 - 14.7 seconds [facility] INR 1.1 <=5.9 [facility] Specimen Blood - Arm, Left Narrative Performed At RECOMMENDED COUMADIN/WARFARIN INR THERAPY [facility] RANGES STANDARD DOSE: 2.0 - 3.0 Includes: PROPHYLAXIS for venous thrombosis, systemic embolization; TREATMENT for venous thrombosis and/or pulmonary embolus. HIGH RISK: Target INR is 2.5-3.5 for patients with mechanical heart valves. Performing Organization Address City/State/Zipcode Phone Number [facility] [address] [place] [address] CENTER Transesophageal echo (11/28/2018 8:58 AM ACCOUNTING FILE CLERK) Ejection Fraction [facility] E[facility] Narrative Performed At Transesophageal Echocardiography [facility]SE[facility] Demographics Patient Name ALYSA FLORIAN Date of Study 11/28/2018 [id number] GenderFemale Visit Number [id number] Black [id number] Room Number 2131 Number Date of Birth1955Referring Physician Mamadou Arreola Age63 year(s)Test Rack Operator Randall Jack InterpretingVishal Jena, Physician Fellow Jamar Doe,RICARDO Corona Procedure Type of Study JOSE procedure:TRANSESOPHAGEAL ECHO Indications:Endocarditis. Clinical History CHF,COPD,CAD,DM,GOUT,HTN,NEUROPATHY,CHAROTS ARTHOPATHY Height: 67 inches Weight: 90.72 kg (200 lbs) BSA: 2.02 m^2 BMI: 31.32 kg/m^2 HR: 92 bpm BP: 179/80 mmHg Procedure Informed Consent JOSE procedure notes Moderate sedation by performing MD using 2 mg IV versed and 25 mcg IV fentanyl. . Summary Enlarged left ventricular cavity, moderate to severely reduced left ventricular systolic function. Mild MV leaflet thickening. No vegetations noted. Moderate somewhat eccentric mitral regurgitation, directed towards anteroseptum. Likely functional in origin. Vena contracta 0.4 cm. There is some systolic flow reversal in left upper pulmonary vein Doppler, probably from MR jet as systolic flow reversal is not clearly seen in RUPV Doppler. TV structure is normal. Plnn-qp-kdeivcpu tricuspid regurgitation. Estimated peak systolic PA pressure is 55-60 mmHg + RA pressure. No evidence of endocarditis Signature Findings Rhythm/BP Regular sinus rhythm during the exam. LeftEnlarged left ventricular cavity, moderate to severely Ventricle reduced left ventricular systolic function. Left Atrium No evidence of left atrial or left atrial appendage thrombus. Right The right ventricular chamber size and systolic function are Ventricle grossly within normal limits. Right AtriumNo mass or thrombus is seen in the right atrium. Atrial Septum Intact interatrial septum. No evidence of interatrial shunt by color Doppler. Aortic ValveTrileaflet aortic valve that opens well. There is trace aortic regurgitation. No vegetations noted. Mitral ValveMild MV leaflet thickening. No vegetations noted. Moderate somewhat eccentric mitral regurgitation, directed towards anteroseptum. Likely functional in origin. Vena contracta 0.4 cm. There is some systolic flow reversal in left upper pulmonary vein Doppler, probably from MR jet as systolic flow reversal is not clearly seen in RUPV Doppler. Tricuspid TV structure is normal. Valve Xxrf-gc-gcrhhzop tricuspid regurgitation. Estimated peak systolic PA pressure is 55-60 mmHg + RA pressure. PulmonicNormal PV structure by limited views and Doppler. Valve Mild pulmonary regurgitation. No obvious vegetations noted. Aorta Visualized descending thoracic aorta size appears normal Pericardium No significant pericardial effusion is visualized. Doppler/Quantitative Measurements Mitral Valve Mean Velocity: 0.5 m/s Mean Gradient: 1.9 mmHg MR Velocity: 6.19 m/s MV VTI: 25.17 cm MV Diallo. Peak: 1.49 m/s Tricuspid Valve TR Velocity: 3.79 m/s TR Gradient: 57.33 mmHg Procedure Note Interface, External Ris In - 11/28/2018 12:33 PM ACCOUNTING FILE CLERK Transesophageal Echocardiography Report (JOSE) Demographics Patient Name ALYSA FLORIAN Date of Study 11/28/2018 Gender Female Visit Number [id number] Race Black Room Number 2131 Number Date of 1955 Referring Physician Mamadou Arreola Age 63 year(s) Test Rack Operator Randall Jack Interpreting Hugo Jean, Physician Fellow Jamar Doe,RICARDO Corona Procedure Type of Study JOSE procedure:TRANSESOPHAGEAL ECHO Indications:Endocarditis. Clinical History CHF,COPD,CAD,DM,GOUT,HTN,NEUROPATHY,CHAROTS ARTHOPATHY Height: 67 inches Weight: 90.72 kg (200 lbs) BSA: 2.02 m^2 BMI: 31.32 kg/m^2 HR: 92 bpm BP: 179/80 mmHg Procedure Informed Consent JOSE procedure notes Moderate sedation by performing MD using 2 mg IV versed and 25 mcg IV fentanyl. . Summary Enlarged left ventricular cavity, moderate to severely reduced left ventricular systolic function. Mild MV leaflet thickening. No vegetations noted. Moderate somewhat eccentric mitral regurgitation, directed towards anteroseptum. Likely functional in origin. Vena contracta 0.4 cm. There is some systolic flow reversal in left upper pulmonary vein Doppler, probably from MR jet as systolic flow reversal is not clearly seen in RUPV Doppler. TV structure is normal. Hkiz-tn-lqrljqdg tricuspid regurgitation. Estimated peak systolic PA pressure is 55-60 mmHg + RA pressure. No evidence of endocarditis Signature Findings Rhythm/BP Regular sinus rhythm during the exam. Left Enlarged left ventricular cavity, moderate to severely Ventricle reduced left ventricular systolic function. Left Atrium No evidence of left atrial or left atrial appendage thrombus. Right The right ventricular chamber size and systolic function are Ventricle grossly within normal limits. Right Atrium No mass or thrombus is seen in the right atrium. Atrial Septum Intact interatrial septum. No evidence of interatrial shunt by color Doppler. Aortic Valve Trileaflet aortic valve that opens well. There is trace aortic regurgitation. No vegetations noted. Mitral Valve Mild MV leaflet thickening. No vegetations noted. Moderate somewhat eccentric mitral regurgitation, directed towards anteroseptum. Likely functional in origin. Vena contracta 0.4 cm. There is some systolic flow reversal in left upper pulmonary vein Doppler, probably from MR jet as systolic flow reversal is not clearly seen in RUPV Doppler. Tricuspid TV structure is normal. Valve Jjll-eh-dvqosulf tricuspid regurgitation. Estimated peak systolic PA pressure is 55-60 mmHg + RA pressure. Pulmonic Normal PV structure by limited views and Doppler. Valve Mild pulmonary regurgitation. No obvious vegetations noted. Aorta Visualized descending thoracic aorta size appears normal Pericardium No significant pericardial effusion is visualized. Doppler/Quantitative Measurements Mitral Valve Mean Velocity: 0.5 m/s Mean Gradient: 1.9 mmHg MR Velocity: 6.19 m/s MV VTI: 25.17 cm MV Diallo. Peak: 1.49 m/s Tricuspid Valve TR Velocity: 3.79 m/s TR Gradient: 57.33 mmHg Performing Organization Address City/State/Zipcode Phone Number [facility] Hepatitis B surface antigen (11/25/2018 3:08 PM ACCOUNTING FILE CLERK) hepatitis B Surface Ag NON-REACTIVE Nonreactive [facility] Specimen Blood Performing Organization Address City/State/Zipcode Phone Number [facility] [address] [place] [address] [phone] CENTER Troponin I (11/24/2018 4:03 AM ACCOUNTING FILE CLERK)Only the most recent of4 resultswithin the time period is included. Troponin I 0.31 (HH) 0.00 - 0.03 ng/mL [facility] Specimen Blood - Central Venous Line Narrative Performed At Troponin I (TnI) levels must be interpreted [facility] in the context of the presenting symptoms and the clinical findings. Elevated TnI levels indicate myocardial damage, but are not specific for ischemic heart disease. Elevated TnI levels are seen in patients with other cardiac conditions (including myocarditis and congestive heart failure), and slight TnI elevations occur in patients with other conditions, including sepsis, renal failure, acidosis, acute neurological disease, and persistent tachyarrhythmia. Performing Organization Address [facility] Cent[facility]ome Phone Number [address] [address] [phone] [place] Lactic acid, venous, whole blood Daily (11/24/2018 4:03 AM ACCOUNTING FILE CLERK)Only the most recent of5 resultswithin the time period is included. Lactate, Venous 0.8 0.5 - 2.2 mmol/L [facility] Specimen Blood - Central Venous Line Performing Organization Address [facility] Phone Number [address] [address] [phone] [place] B-type Natriuretic Factor (BNP) (11/24/2018 4:03 AM ACCOUNTING FILE CLERK)Only the most recent of2 resultswithin the time period is included. BNP 190 (H) 0 - 100 pg/mL [facility] Specimen Blood - Central Venous Line Performing Organization Address [facility] CenterZingayame Phone Number [address] [address] [place] Catheter Tip Culture (11/23/2018 12:54 PM ACCOUNTING FILE CLERK) Result No growth [facility] Specimen Other - Catheter Tip Performing Organization Address [facility] Phone Number [address] [address] [place] IR central venous catheter placement (jugular or femoral) (11/23/2018 12:38 PM ACCOUNTING FILE CLERK) Narrative Performed At FINAL REPORT [facility] Temporary DialysisCatheter Placement (non tunneled, centrally inserted, without pump or subcutaneous port): Age: 63, Diagnosis: Requiring IV access for dialysis and pressors, Indication: Sepsis Modality: Sonography and fluoroscopy Conscious Sedation no sedation Anesthesia:Two percent Lidocaine injected subcutaneously at the insertion site. Approach: Left internal jugular vein Fluoroscopy time in minutes: 0.6 minutes. 17 images For maximum sterile barrier protection a mask, cap, sterile gloves, sterile drape, sterile gown, and a cutaneous antiseptic was utilized. Technique:After informed written consent was obtained, the patient was prepped and draped in the usual sterile manner.Access was obtained using sonographic guidance.A hard copy of the imaged vein was submitted for interpretation.The ultrasound was performed to document patency.The leftinternal jugular vein was catheterized. A guide wirewas advanced centrally.A24 cm triple lumen dialysis catheter was advanced with its distal tip terminating in the right atrium.The ports were flushed and aspirated easily following placement.The catheter was sutured to the skin to secure its placement. Vital signs were monitored throughout the procedure by a nurse, and remained stable.The patient tolerated the procedure well and left the department in the same condition. Results:Spot radiograph of the chest demonstrates the new temporary dialysis catheter terminating in the right atrium. Impression: Successful, uncomplicated sonographic and fluoroscopic placement of a left internal jugulartemporary dialysis catheter terminating in the right atrium. Tunneled catheter removal: Pertinent clinical information: Infected catheter Conscious Sedation: None Anesthesia:Two percent Lidocaine injected subcutaneously at the insertion site and tunnel. Approach: Right groin For maximum sterile barrier protection a mask, cap, sterile gloves, sterile drape, sterile gown, and a cutaneous antiseptic was utilized. Technique:After informed written consent was obtained, the patient was prepped and draped in the usual sterile manner.The subcutaneous tunnel was accessed in the right thigh by blunt dissection. The catheter sutures were removed.The catheter was removed.The patient tolerated the procedure well and left the department in the same condition. Impression: Successful, uncomplicated removal of a right femoraltunneled catheter. Signed: Ranjana Connor MD Report Verified Date/Time:11/23/2018 16:53:15 Reading Location: [place] [address] Angio Body Reading Room Procedure Note Interface, External Ris In - 11/23/2018 4:55 PM ACCOUNTING FILE CLERK FINAL REPORT Temporary Dialysis Catheter Placement (non tunneled, centrally inserted, without pump or subcutaneous port): Age: 63, Diagnosis: Requiring IV access for dialysis and pressors, Indication: Sepsis Modality: Sonography and fluoroscopy Conscious Sedation no sedation Anesthesia: Two percent Lidocaine injected subcutaneously at the insertion site. Approach: Left internal jugular vein Fluoroscopy time in minutes: 0.6 minutes. 17 images For maximum sterile barrier protection a mask, cap, sterile gloves, sterile drape, sterile gown, and a cutaneous antiseptic was utilized. Technique: After informed written consent was obtained, the patient was prepped and draped in the usual sterile manner. Access was obtained using sonographic guidance. A hard copy of the imaged vein was submitted for interpretation. The ultrasound was performed to document patency. The left internal jugular vein was catheterized. A guide wire was advanced centrally. A 24 cm triple lumen dialysis catheter was advanced with its distal tip terminating in the right atrium. The ports were flushed and aspirated easily following placement. The catheter was sutured to the skin to secure its placement. Vital signs were monitored throughout the procedure by a nurse, and remained stable. The patient tolerated the procedure well and left the department in the same condition. Results: Spot radiograph of the chest demonstrates the new temporary dialysis catheter terminating in the right atrium. Impression: Successful, uncomplicated sonographic and fluoroscopic placement of a left internal jugular temporary dialysis catheter terminating in the right atrium. Tunneled catheter removal: Pertinent clinical information: Infected catheter Conscious Sedation: None Anesthesia: Two percent Lidocaine injected subcutaneously at the insertion site and tunnel. Approach: Right groin For maximum sterile barrier protection a mask, cap, sterile gloves, sterile drape, sterile gown, and a cutaneous antiseptic was utilized. Technique: After informed written consent was obtained, the patient was prepped and draped in the usual sterile manner. The subcutaneous tunnel was accessed in the right thigh by blunt dissection. The catheter sutures were removed. The catheter was removed. The patient tolerated the procedure well and left the department in the same condition. Impression: Successful, uncomplicated removal of a right femoral tunneled catheter. Signed: Ranjana Connor MD Report Verified Date/Time: 11/23/2018 16:53:15 Reading Location: [facility] B1 P048 Angio Body Reading Room Performing Organization Address City/State/Zipcode Phone Number [email or web address] ECHOCARDIOGRAM REPORT - SCAN (11/23/2018 9:00 AM ACCOUNTING FILE CLERK) Narrative Performed At Calcium, Ionized (11/23/2018 7:27 AM ACCOUNTING FILE CLERK)Only the most recent of2 resultswithin the time period is included. Calcium, Ion 1.13 1.12 - 1.27 mmol/L [facility] pH, Blood 7.36 [facility] Specimen Blood Performing Organization Address City/State/Zipcode Phone Number [address] [address] [phone] [place] Lipase (11/23/2018 7:00 AM ACCOUNTING FILE CLERK) Lipase 12 8 - 78 U/L [facility] Specimen Blood Performing Organization Address City/[facility] Phone Number [address] [address] [place] Comprehensive metabolic panel (11/23/2018 7:00 AM ACCOUNTING FILE CLERK) Protein, Total 6.0 6.0 - 8.3 gm/dL [facility] Albumin 3.0 (L) 3.5 - 5.0 g/dL [facility] Alkaline Phosphatase 248 (H) 40 - 150 U/L [facility] Total Bilirubin 0.8 0.2 - 1.2 mg/dL [facility] Sodium 137 136 - 145 meq/L [facility] Potassium 3.6 3.5 - 5.1 meq/L [facility] Chloride 101 98 - 107 meq/L [facility] CO2 28 22 - 29 meq/L [facility] BUN 26 (H) 7 - 21 mg/dL [facility] Creatinine 4.09 (H) 0.57 - 1.25 mg/dL [facility] Glucose 201 (H) 70 - 105 mg/dL [facility] Calcium 9.3 8.4 - 10.2 mg/dL [facility] AST 39 (H) 5 - 34 U/L [facility] ALT 18 6 - 55 U/L [facility] EGFR 13Comment: ESTIMATED GFR mL/min/1.73 sq m [facility] IS NOT ACCURATE [facility] CREATININE CLEARANCE IN PREDICTING GLOMERULAR FILTRATION RATE. ESTIMATED GFR IS NOT APPLICABLE FOR DIALYSIS PATIENTS. Specimen Blood Performing Organization Address City/State/Zipcode Phone Number [facility] [address] [place] [address] CENTER US abdomen complete (11/22/2018 6:56 PM ACCOUNTING FILE CLERK) Narrative Performed At FINAL REPORT [email or web address] INDICATION: Septic Shock, ESRD, Dysuria, Abdominal Pain COMPARISON: None TECHNIQUE:Real-time transabdominal vargas scale and color Doppler ultrasound of the abdominal right upper quadrant. FINDINGS: Liver: Size: 17.8cm. Echogenicity: Normal. Masses/lesions: None. Surface Nodularity: None. Intrahepatic bile ducts: Normal. Common bile duct: 0.3cm. MPV: 0.8cm. Gallbladder: Stones: Few punctate nonshadowing gallstones. Sludge: Minimal. Wall thickness: 0.8 cm. The gallbladder is nondistended. Pericholecystic fluid: None. Sonographic Tate's sign: Absent. Pancreas: Head and uncinate process: Not well evaluated due to bowel gas. Body and tail: Not well evaluated due to bowel gas. Right kidney: Size: 10.1 x 5.1 x 5.2 cm. Parenchyma: Increased. No cysts. No stones. Hydronephrosis: None. Ascites: None. Regional Vasculature: The visible abdominal aorta, IVC and hepatic veins are patent. Additional Findings: None. IMPRESSION: Gallbladder is nondistended with normal common bile duct, no pericholecystic fluid and negative sonographic Tate's. Findings suggestive of chronic kidney disease Signed: Higinio Palmer MD Report Verified Date/Time:11/22/2018 20:30:54 Reading Location: [address] Neuro Reading Room Procedure Note Interface, External Ris In - 11/22/2018 8:33 PM ACCOUNTING FILE CLERK FINAL REPORT INDICATION: Septic Shock, ESRD, Dysuria, Abdominal Pain COMPARISON: None TECHNIQUE: Real-time transabdominal vargas scale and color Doppler ultrasound of the abdominal right upper quadrant. FINDINGS: Liver: Size: 17.8cm. Echogenicity: Normal. Masses/lesions: None. Surface Nodularity: None. Intrahepatic bile ducts: Normal. Common bile duct: 0.3cm. MPV: 0.8cm. Gallbladder: Stones: Few punctate nonshadowing gallstones. Sludge: Minimal. Wall thickness: 0.8 cm. The gallbladder is nondistended. Pericholecystic fluid: None. Sonographic Tate's sign: Absent. Pancreas: Head and uncinate process: Not well evaluated due to bowel gas. Body and tail: Not well evaluated due to bowel gas. Right kidney: Size: 10.1 x 5.1 x 5.2 cm. Parenchyma: Increased. No cysts. No stones. Hydronephrosis: None. Ascites: None. Regional Vasculature: The visible abdominal aorta, IVC and hepatic veins are patent. Additional Findings: None. IMPRESSION: Gallbladder is nondistended with normal common bile duct, no pericholecystic fluid and negative sonographic Tate's. Findings suggestive of chronic kidney disease Signed: Higinio Pamler MD Report Verified Date/Time: 11/22/2018 20:30:54 Reading Location: [address] Neuro Reading Room Performing Organization Address City/State/Zipcode Phone Number [email or web address] XR chest 1 view portable / bedside (11/22/2018 4:48 PM ACCOUNTING FILE CLERK) Narrative Performed At FINAL REPORT [email or web address] EXAMINATION: AP PORTABLE CHEST RADIOGRAPH CLINICAL INDICATION: Respiratory insufficiency, septic shock FINDINGS: No comparison studies are available. The tip of the femoral dialysis catheter projects over the right atrium. Subtle streaky and patchy nonspecific opacities are noted in both lungs, most conspicuous in the perihilar regions and along the heart borders, right slightly greater than left. A component may reflect atelectasis given the morphology and distribution. Mild superimposed pulmonary edema should also be considered. Underlying pneumonia or mass lesion cannot be excluded on today's limited study. Superimposed bilateral pleural effusions are also suspected with mild blunting of the bilateral costophrenic sulci. The heart is mildly prominent. Mediastinal contours are sharp. Mild soft tissue fullness of the superior mediastinum may reflect the AP portable technique and or mediastinal adipose tissue. Pathologic process of the mediastinum cannot be excluded. No evidence of an acute osseous abnormality or pneumothorax. IMPRESSION: In summary, constellation of findings worrisome for mild fluid overload/heart failure. Underlying pneumonia or more aggressive process cannot be excluded. Signed: Coy Medel MD Report Verified Date/Time:11/22/2018 17:04:54 Reading Location: [address] Reading Room Procedure Note Interface, External Ris In - 11/22/2018 5:07 PM ACCOUNTING FILE CLERK FINAL REPORT EXAMINATION: AP PORTABLE CHEST RADIOGRAPH CLINICAL INDICATION: Respiratory insufficiency, septic shock FINDINGS: No comparison studies are available. The tip of the femoral dialysis catheter projects over the right atrium. Subtle streaky and patchy nonspecific opacities are noted in both lungs, most conspicuous in the perihilar regions and along the heart borders, right slightly greater than left. A component may reflect atelectasis given the morphology and distribution. Mild superimposed pulmonary edema should also be considered. Underlying pneumonia or mass lesion cannot be excluded on today's limited study. Superimposed bilateral pleural effusions are also suspected with mild blunting of the bilateral costophrenic sulci. The heart is mildly prominent. Mediastinal contours are sharp. Mild soft tissue fullness of the superior mediastinum may reflect the AP portable technique and or mediastinal adipose tissue. Pathologic process of the mediastinum cannot be excluded. No evidence of an acute osseous abnormality or pneumothorax. IMPRESSION: In summary, constellation of findings worrisome for mild fluid overload/heart failure. Underlying pneumonia or more aggressive process cannot be excluded. Signed: Coy Medel MD Report Verified Date/Time: 11/22/2018 17:04:54 Reading Location: [address] Reading Room Performing Organization Address City/State/Zipcode Phone Number [facility] Blood gas, arterial (11/22/2018 4:25 PM ACCOUNTING FILE CLERK) pH, Arterial 7.37 7.35 - 7.45 [facility] pCO2, Arterial 42 35 - 45 mmHg [facility] pO2, Arterial 123 (H) 80 - 90 mmHg [facility] O2 Sat, Arterial 98.3 (H) 96.0 - 97.0 % [facility] HCO3, Arterial 24 21 - 29 mmol/L [facility] Base Excess, Arterial -1.7 -2.0 - 3.0 mmol/L [facility] Patient Temperature 37.0 C [facility] FIO2 28.0 % [facility] Specimen Blood, Arterial - Arm, Left Performing Organization Address City/State/Zipcode Phone Number [facility] [address] [place] [address] CENTER Blood Culture Panel(BioFire) (11/22/2018 4:19 PM ACCOUNTING FILE CLERK) LISTERIA MONOCYTOGENES Not detected Not detected [facility] STAPHYLOCOCCUS Detected (A) Not detected [facility] STAPHYLOCOCCUS AUREUS Detected (A) Not detected [facility] Comment: [facility] First line therapy: Vancomycin CENTER ID consultation strongly encouraged. Staphylococcus aureus DETECTED MecA DETECTED Reference Range: Not Detected Streptococcus Not detected Not detected [facility] STREPTOCOCCUS AGALACTIAE Not detected Not detected [facility] (GROUP B) [facility] STREPTOCOCCUS PNEUMONIAE Not detected Not detected [facility] Streptococcus pyogenes (Group Not detected Not detected [facility] A) [facility] ACINETOBACTER BAUMANNII Not detected Not detected [facility] HAEMOPHILUS INFLUENZAE Not detected Not detected [facility] NEISSERIA MENINGITIDIS Not detected Not detected [facility] ENTEROBACTERIACEAE Not detected Not detected [facility] ENTEROBACTER CLOACOE COMPLEX Not detected Not detected [facility] KLEBSIELLA OXYTOCA Not detected Not detected [facility] KLEBSIELLA PNEUMONIAE Not detected Not detected [facility] PROTEUS Not detected Not detected [facility] SERRATIA MARCESCENS Not detected Not detected [facility] SHRUTHI ALBICANS Not detected Not detected [facility] SHRUTHI GLABRATA Not detected Not detected [facility] SHRUTHI ROMAN Not detected Not detected [facility] SHRUTHI PARAPSILOSIS Not detected Not detected [facility] SHRUTHI TROPICALIS Not detected Not detected [facility] ESCHERICHIA COLI Not detected Not detected [facility] METHICILLIN-RESISTANCE GENE Detected (A) Not detected [facility] VANCOMYCIN-RESISTANCE GENE Not detected [facility] CARBAPENEM-RESISTANCE GENE Not detected [facility] ENTEROCOCCUS Not detected Not detected [facility] PSEUDOMONAS AERUGINOSA Not detected Not detected [facility] Specimen Blood - Arm, Right Narrative Performed At Other bacteria and resistance markers not [facility] targeted by this PCR panel cannot be excluded; therefore clinical correlation and follow up of serology, culture results, and other molecular studies is required. The results are not intended to be used as the sole means for clinical diagnosis or patient management decisions. This sample was tested at the [facility] Molecular Diagnostics Laboratory using the FunnelFireArray Blood Culture ID Panel. It is FDA cleared and has been verified and approved by the [facility] Molecular Diagnostics Laboratory for clinical use. This laboratory is CLIA-certified and [employer] ([employer])-accredited to perform high complexity testing. Performing Organization Address City/State/Zipcode Phone Number [facility] [address] [place] [address] [phone] CENTER Procalcitonin (11/22/2018 4:19 PM ACCOUNTING FILE CLERK) Procalcitonin >200.00 (HH) <0.05 ng/mL [facility] Specimen Blood - Arm, Right Narrative Performed At SEPSIS RISK (ng/mL) [facility] Low:0.05-0.50 Intermediate: 0.51-2.00 High: >=2.01 Performing Organization Address City/[facility] Phone Number [facility] [address] [place] [address] CENTER Manual Differential (11/22/2018 4:19 PM ACCOUNTING FILE CLERK) % Neutros 85 % [facility] % Lymphs 5 % [facility] % Monos 4 % [facility] % Bands 6 0 - 10 % [facility] # Neutros 22.87 (H) 1.56 - 6.13 K/ul [facility] # Lymphs 1.35 1.18 - 3.74 K/ul [facility] # Monos 1.08 (H) 0.24 - 0.36 K/uL [facility] # Bands 1.61 (H) 0.00 - 0.80 K/uL [facility] Total Counted 100 [facility] WBC Morphology Normal [facility] Platelet Morphology Normal [facility] Polychromasia 3+ many [facility] Anisocytosis 1+ few [facility] Microcytes 1+ few [facility] Poikilocytes 2+ moderate [facility] Tear Drop Cells 1+ few [facility] Arnold Cells 1+ few [facility] Artifact Present [facility] Helmet Cells 1+ few [facility] Platelet Conc Adequate [facility] Specimen Blood - Arm, Right Narrative Performed At Received comment: [facility] User comments: Slide comments: Performing Organization Address City/[facility] Phone Number [address] [address] [place] TSH/Free T4 If Indicated (11/22/2018 4:19 PM ACCOUNTING FILE CLERK) TSH 2.43 0.35 - 4.94 uIU/mL [facility] Specimen Blood - Arm, Right Performing Organization Address [facility] Phone Number [address] [address] [place] Oxygen saturation, measured (11/22/2018 4:19 PM ACCOUNTING FILE CLERK) O2 Saturation (Measured) 62.7 % [facility] Specimen Blood - Arm, Right Narrative Performed At If patient has internal jugular ( IJ) or [facility] subclavian central line or PICC line. Draw from distal port. Label as central venous oxygen. Performing Organization Address [facility] Phone Number [address] [address] [phone] [place] Hepatic function panel (11/22/2018 4:19 PM ACCOUNTING FILE CLERK) Protein, Total 6.9 6.0 - 8.3 gm/dL [facility] Albumin 3.5 3.5 - 5.0 g/dL [facility] Total Bilirubin 0.9 0.2 - 1.2 mg/dL [facility] Bilirubin, Direct 0.6 (H) 0.1 - 0.5 mg/dL [facility] Alkaline Phosphatase 245 (H) 40 - 150 U/L [facility] AST 51 (H) 5 - 34 U/L [facility] ALT 18 6 - 55 U/L [facility] Specimen Blood - Arm, Right Performing Organization Address [facility]ode Phone Number [address] [address] [place] 2D Echo W/Doppler(CW/PW/Color) (11/22/2018 3:51 PM ACCOUNTING FILE CLERK) Ejection Fraction [facility] ECHO [facility] Narrative Performed At Transthoracic Echocardiography Report (TTE) [facility]CHO [facility] Demographics Patient Name ALYSA FLORIAN Date of Study 11/22/2018 [id number] GenderFemale Visit Number [id number] Ricardo [id number] Room Number [id number] Number Date of Birth1955Referring Physician Age63 year(s)Test Rack Operator Josué Mayes InterpretingStlandon Kothari Physician Fellow Racquel Soto Procedure Type of Study TTE procedure:2DECHO W DOPPLER(CW/PW/COLOR) (STAT) Indications:Suspected infective endocarditis with positive cultures or new murmur. Clinical History DM, ESRD, SEPTIC SHOCK, HFpEF, COPD, CHF Contrast Medium: Definity. Amount - 2 ml Height: 67 inches Weight: 90.72 kg (200 lbs) BSA: 2.02 m^2 BMI: 31.32 kg/m^2 HR: 88 bpm BP: 91/52 mmHg Summary 1. Global hypokinesis. Estimated LVEF by qualitative assessment is fpjiemzvp-[id number] reduced (30%) . 2. LV filling pressures are inconclusive. 3. RV chamber size is normal . Normal RV function. 4. Estimated Systolic PA pressure is 30-35mmHg plus RA pressure. Signature Findings Rhythm/BPRegular sinus rhythm during the exam. Left Ventricle The LV endocardium is adequately visualized. Th e left ventricle is chamber size (by PSLAX di mension) is normal (female - LVIDd 3.8-5.2cm) . No rmal LV wall thickness. Gl obal hypokinesis. Es timated LVEF by qualitative assessment is mo zvecybg-fj-upstfwgx reduced (30%) . Left AtriumLA size is normal (16-34 ml/m2) . Right VentricleRV chamber size is normal . Normal RV function. Right Atrium RA size is probably normal based on available vi ews. Ti p of what is likely the tunnelled femoral vein di alysis catheter is seen in the right atrium. Atrial SeptumThe interatrial septum is adequately visualized. No rmal interatrial septum by available views. Aortic Valve No evidence of aortic regurgitation. No rmal AoV structure and function. No evidence of aortic valve endocarditis by TTE. If clinical concern for IE persists - consider JOSE fo r more definitive evaluation. Mitral Valve Mild to Moderate Mitral Regurgitation No evidence of endocarditis by TTE. If clinical concern for IE persists - consider JOSE fo r more definitive evaluation. Tricuspid ValveA trace of tricuspid regurgitation. Es timated Systolic PA pressure is 30-35mmHg plus RA pr essure. Vi ews of the tricuspid valve itself are limited. By av ailable views - there is no evidence of en docarditis. Pulmonic Valve Normal PV structure and function. Mi ld pulmonary regurgitation. AortaAortic root size (SInus of Valsalva diameter) is no rmal . Th e aortic sinotubular junction appears normal . PericardiumNo significant pericardial effusion is visualized. IVC/SVC/PA/PV/PleuralThe estimated RA pressure by IVC dynamics 0-5mmHg . Di alysis catheter is present in the IVC - indicated by blockage of doppler flow signal. Possible th rombus on dialysis catheter in the IVC. Chambers/Structures Left Atrium LA Volume: 59.08 ml LA Area: 13.99 cm^2 LA Vol. Index: 29 ml/m^2 Left Ventricle LVIDd: 4.31 cm LVIDs: 3.87 cm LV Septum Diastolic: 1.04 cm LV PW Diastolic: 0.93 cmLV FS: 10.2 % LVEDV Pompa's:116.79 ml LVESV Pompa's:64.57 mlLVEDVI: 58 ml/m^2 LVEF Pompa's: 46.4 %LVESV I: 32 ml/m^2 LVOT Diameter: [address] Junction: 2.28 cm Ascending Aorta: 2.44 cm Doppler/Quantitative Measurements Mitral Valve MV Peak E-Wave: 0.75 m/sMV Peak A-Wave: 1.06 m/s E/A Ratio: 0.71 Mean Velocity: 0.49 m/s Peak Gradient: 2.23 mmHg Mean Gradient: 1.21 mmHg Area (continuity): 5.36 cm^2 MR Velocity: 5.16 m/s MR VTI: 128.11 cm MV VTI: 12.46 cm MV Diallo. Peak: 0.91 m/s Tissue Doppler E' Septal Velocity: 0.07 m/sA' Septal Velocity: 0.08 m/s E' Lateral Velocity: 0.05 m/s A' Lateral Velocity: 0.09 m/s E/E': 14.25 Aortic Valve Peak Velocity: 1.42 m/sMean Velocity: 1.09 m/s Peak Gradient: 8.12 mmHg Mean Gradient: 5.14 mmHg AV Area (continuity): 3.08 cm^2 AV VTI: 21.69 cm AV DVI: 0.98 LVOT Peak Velocity: 1.28 m/s Peak Gradient: 6.6 mmHg Mean Velocity: 0.88 m/s Mean Gradient: 3.55 mmHg LVOT Diameter: 2 cm LVOT VTI: 21.26 cm LVOT Area: 3.14 cm^2LVOT SV:66.76 ml LVOT CO: 5.87 l/min LVOT CI: 2.91 l/min/m^2 RVOT RVOT VTI (PW): 9.77 cm Tricuspid Valve TR Velocity: 2.56 m/s TR Gradient: 26.21 mmHg Pulmonic Valve Peak Velocity: 1.19 m/s Peak Gradient: 5.69 mmHg Mean Velocity: 0.69 m/s Mean Gradient: 1.88 mmHg Procedure Note Interface, External Ris In - 11/23/2018 8:09 AM ACCOUNTING FILE CLERK Transthoracic Echocardiography Report (TTE) Demographics Patient Name ALYSA FLORIAN Date of Study 11/22/2018 Gender Female Visit Number [id number] Race Black Room Number [id number] Number Date of 1955 Referring Physician Age 63 year(s) Test Rack Operator Josué Mayes Interpreting Mari Kothari, Physician Fellow Racquel Soto Procedure Type of Study TTE procedure:2DECHO W DOPPLER(CW/PW/COLOR) (STAT) Indications:Suspected infective endocarditis with positive cultures or new murmur. Clinical History DM, ESRD, SEPTIC SHOCK, HFpEF, COPD, CHF Contrast Medium: Definity. Amount - 2 ml Height: 67 inches Weight: 90.72 kg (200 lbs) BSA: 2.02 m^2 BMI: 31.32 kg/m^2 HR: 88 bpm BP: 91/52 mmHg Summary 1. Global hypokinesis. Estimated LVEF by qualitative assessment is [id number]-[id number] reduced (30%) . 2. LV filling pressures are inconclusive. 3. RV chamber size is normal . Normal RV function. 4. Estimated Systolic PA pressure is 30-35mmHg plus RA pressure. Signature Findings Rhythm/BP Regular sinus rhythm during the exam. Left Ventricle The LV endocardium is adequately visualized. The left ventricle is chamber size (by PSLAX dimension) is normal (female - LVIDd 3.8-5.2cm) . Normal LV wall thickness. Global hypokinesis. Estimated LVEF by qualitative assessment is opcrecprw-yi-riespzpn reduced (30%) . Left Atrium LA size is normal (16-34 ml/m2) . Right Ventricle RV chamber size is normal . Normal RV function. Right Atrium RA size is probably normal based on available views. Tip of what is likely the tunnelled femoral vein dialysis catheter is seen in the right atrium. Atrial Septum The interatrial septum is adequately visualized. Normal interatrial septum by available views. Aortic Valve No evidence of aortic regurgitation. Normal AoV structure and function. No evidence of aortic valve endocarditis by TTE. If clinical concern for IE persists - consider JOSE for more definitive evaluation. Mitral Valve Mild to Moderate Mitral Regurgitation No evidence of endocarditis by TTE. If clinical concern for IE persists - consider JOSE for more definitive evaluation. Tricuspid Valve A trace of tricuspid regurgitation. Estimated Systolic PA pressure is 30-35mmHg plus RA pressure. Views of the tricuspid valve itself are limited. By available views - there is no evidence of endocarditis. Pulmonic Valve Normal PV structure and function. Mild pulmonary regurgitation. Aorta Aortic root size (SInus of Valsalva diameter) is normal . The aortic sinotubular junction appears normal . Pericardium No significant pericardial effusion is visualized. IVC/SVC/PA/PV/Pleural The estimated RA pressure by IVC dynamics 0-5mmHg . Dialysis catheter is present in the IVC - indicated by blockage of doppler flow signal. Possible thrombus on dialysis catheter in the IVC. Chambers/Structures Left Atrium LA Volume: 59.08 ml LA Area: 13.99 cm^2 LA Vol. Index: 29 ml/m^2 Left Ventricle LVIDd: 4.31 cm LVIDs: 3.87 cm LV Septum Diastolic: 1.04 cm LV PW Diastolic: 0.93 cm LV FS: 10.2 % LVEDV Pompa's:116.79 ml LVESV Pompa's:64.57 ml LVEDVI: 58 ml/m^2 LVEF Pompa's: 46.4 % LVESVI: 32 ml/m^2 LVOT Diameter: [address] Junction: 2.28 cm Ascending Aorta: 2.44 cm Doppler/Quantitative Measurements Mitral Valve MV Peak E-Wave: 0.75 m/s MV Peak A-Wave: 1.06 m/s E/A Ratio: 0.71 Mean Velocity: 0.49 m/s Peak Gradient: 2.23 mmHg Mean Gradient: 1.21 mmHg Area (continuity): 5.36 cm^2 MR Velocity: 5.16 m/s MR VTI: 128.11 cm MV VTI: 12.46 cm MV [place]. Peak: 0.91 m/s Tissue Doppler E' Septal Velocity: 0.07 m/s A' Septal Velocity: 0.08 m/s E' Lateral Velocity: 0.05 m/s A' Lateral Velocity: 0.09 m/s E/E': 14.25 Aortic Valve Peak Velocity: 1.42 m/s Mean Velocity: 1.09 m/s Peak Gradient: 8.12 mmHg Mean Gradient: 5.14 mmHg AV Area (continuity): 3.08 cm^2 AV VTI: 21.69 cm AV DVI: 0.98 LVOT Peak Velocity: 1.28 m/s Peak Gradient: 6.6 mmHg Mean Velocity: 0.88 m/s Mean Gradient: 3.55 mmHg LVOT Diameter: 2 cm LVOT VTI: 21.26 cm LVOT Area: 3.14 cm^2 LVOT SV:66.76 ml LVOT CO: 5.87 l/min LVOT CI: 2.91 l/min/m^2 RVOT RVOT VTI (PW): 9.77 cm Tricuspid Valve TR Velocity: 2.56 m/s TR Gradient: 26.21 mmHg Pulmonic Valve Peak Velocity: 1.19 m/s Peak Gradient: 5.69 mmHg Mean Velocity: 0.69 m/s Mean Gradient: 1.88 mmHg Performing Organization Address City/State/Zipcode Phone Number [facility] 03/13/2018 Insurance Payer Benefit Plan / Group Subscriber ID Type Phone Address [employer] MEDICAID MEDICAID JOSHI xxxxxxxxx ([place]) [place] [address] Advance Directives For more information, please contact:[address] [phone] Code Status Date Activated Date Inactivated Comments Full Code 11/22/2018 3:25 PM This code status was determined by: Patient
--- OUTSIDE RECORDS SUMMARY | 2019-03-14 23:52 | XMS REPORT ---
:1955 [facility] Address [address] [place] [address] Care Team Providers Name Role Phone ARELY ARCEO SARAY Unavailable Unavailable ANDRES RITTER Unavailable Unavailable TARCARSON FERRERA Unavailable Unavailable DORINDA MERCEDES Unavailable Unavailable PAPO GONZALEZ Unavailable Unavailable AAMIR GEORGE Unavailable Unavailable AAMIR TAMAYO Unavailable Unavailable OBED HAGEN Unavailable Unavailable Problems This patient has no known problems. Allergies, Adverse Reactions, Alerts This patient has no known allergies or adverse reactions. Medications This patient has no known medications. Results Test Description Test Time Test Comments Text Results Atomic Results Result Comments BLOOD CULTURE 2018-12-11 19:01:00 Test Item Value Reference Range Comments CULTURE (BEAKER) (test iiuw=3098) No growth in 5 days POCT-GLUCOSE [id number] 09:17:00 Test Item Value Reference Range Comments POC-GLUCOSE METER (BEAKER) 110 mg/dL 70-110 TESTED AT [facility] [address] [facility] (test qtkq=0051) [facility] [address] CBC W/PLT COUNT & AUTO [id number] 07:05:00 Test Item Value Reference Range Comments WHITE BLOOD CELL COUNT (BEAKER) (test xhqp=710) 8.2 K/ L 3.5-10.5 RED BLOOD CELL COUNT (BEAKER) (test qfny=198) 2.79 M/ L 3.93-5.22 HEMOGLOBIN (BEAKER) (test nnpv=619) 7.8 GM/DL 11.2-15.7 HEMATOCRIT (BEAKER) (test kgvt=707) 26.4 % 34.1-44.9 MEAN CORPUSCULAR VOLUME (BEAKER) (test orza=725) 94.6 fL 79.4-94.8 MEAN CORPUSCULAR HEMOGLOBIN (BEAKER) (test 28.0 pg 25.6-32.2 zids=594) MEAN CORPUSCULAR HEMOGLOBIN CONC (BEAKER) (test 29.5 GM/DL 32.2-35.5 ejtz=737) RED CELL DISTRIBUTION WIDTH (BEAKER) (test 14.5 % 11.7-14.4 bhjq=824) PLATELET COUNT (BEAKER) (test thoy=142) 299 K/CU MM 150-450 MEAN PLATELET VOLUME (BEAKER) (test bvzq=850) 10.0 fL 9.4-12.3 NUCLEATED RED BLOOD CELLS (BEAKER) (test 0 /100 WBC 0-0 gels=906) NEUTROPHILS RELATIVE PERCENT (BEAKER) (test 72 % uiqe=913) LYMPHOCYTES RELATIVE PERCENT (BEAKER) (test 11 % ckoi=008) MONOCYTES RELATIVE PERCENT (BEAKER) (test 10 % lpoy=159) EOSINOPHILS RELATIVE PERCENT (BEAKER) (test 5 % llxi=184) BASOPHILS RELATIVE PERCENT (BEAKER) (test 1 % mdog=226) NEUTROPHILS ABSOLUTE COUNT (BEAKER) (test 5.93 K/ L 1.56-6.13 mefz=524) LYMPHOCYTES ABSOLUTE COUNT (BEAKER) (test 0.87 K/ L 1.18-3.74 mvqj=923) MONOCYTES ABSOLUTE COUNT (BEAKER) (test 0.84 K/ L 0.24-0.36 yzxg=732) EOSINOPHILS ABSOLUTE COUNT (BEAKER) (test 0.44 K/ L 0.04-0.36 yxil=698) BASOPHILS ABSOLUTE COUNT (BEAKER) (test 0.09 K/ L 0.01-0.08 wuhu=733) IMMATURE GRANULOCYTES-RELATIVE PERCENT (BEAKER) 1 % 0-1 (test zjbw=3996) BASIC METABOLIC [id number] 07:04:00 Test Item Value Reference Range Comments SODIUM (BEAKER) (test 139 meq/L 136-145 jqsx=711) POTASSIUM (BEAKER) (test 4.3 meq/L 3.5-5.1 xmja=078) CHLORIDE (BEAKER) (test 104 meq/L 98-107 viiz=961) CO2 (BEAKER) (test 26 meq/L 22-29 kegz=570) BLOOD UREA NITROGEN 31 mg/dL 7-21 (BEAKER) (test lrly=369) CREATININE (BEAKER) (test 5.39 mg/dL 0.57-1.25 fbor=568) GLUCOSE RANDOM (BEAKER) 83 mg/dL 70-105 (test vuzi=404) CALCIUM (BEAKER) (test 9.1 mg/dL 8.4-10.2 oskb=999) EGFR (BEAKER) (test 10 mL/min/1.73 sq m ESTIMATED GFR IS NOT kmty=9280) ACCURATE CREATININE CLEARANCE IN PREDICTING GLOMERULAR FILTRATION RATE. ESTIMATED GFR IS NOT APPLICABLE FOR DIALYSIS PATIENTS. RAD, ABDOMEN/KUB, 1 VIEW [id number] 04:19:00Reason for exam:->abdominal painFINAL REPORT EXAMINATION: SUPINE ABDOMEN CLINICAL INDICATION: Abdominal pain IMPRESSION: Compared with 11/23/2018. A large volume of inspissated stool is noted throughout the colon suggesting dysmotility- constipation. The bowel gas pattern is otherwise nonspecific. Evaluation for free air below the diaphragm and air-fluid levels within the bowel is limited by supine patient positioning. If there is persistent clinical concern, consider CT for further evaluation. Signed: Coy Medel MDReport Verified Date/ Time: 12/08/2018 04:19:23 Reading Location: [address] Reading Room POCT-GLUCOSE [id number] 21:25:00 Test Item Value Reference Range Comments POC-GLUCOSE METER (BEAKER) 193 mg/dL 70-110 TESTED AT [address] (test lfky=9921) [facility] [address] POCT-GLUCOSE [id number] 17:52:00 Test Item Value Reference Range Comments POC-GLUCOSE METER (BEAKER) 152 mg/dL 70-110 TESTED AT [address] (test jelf=2013) [facility] [address] POCT-GLUCOSE [id number] 14:15:00 Test Item Value Reference Range Comments POC-GLUCOSE METER (BEAKER) 284 mg/dL 70-110 TESTED AT [address] (test umhc=5378) [facility] [address] POCT-GLUCOSE [id number] 08:09:00 Test Item Value Reference Range Comments POC-GLUCOSE METER (BEAKER) 185 mg/dL 70-110 TESTED AT [address] (test xore=9254) [facility] [address] BASIC METABOLIC [id number] 06:30:00 Test Item Value Reference Range Comments SODIUM (BEAKER) (test 137 meq/L 136-145 yxva=980) POTASSIUM (BEAKER) (test 4.2 meq/L 3.5-5.1 miec=687) CHLORIDE (BEAKER) (test 98 meq/L 98-107 rurp=235) CO2 (BEAKER) (test 28 meq/L 22-29 azrr=663) BLOOD UREA NITROGEN 46 mg/dL 7-21 (BEAKER) (test wqbo=567) CREATININE (BEAKER) (test 6.96 mg/dL 0.57-1.25 tihk=593) GLUCOSE RANDOM (BEAKER) 131 mg/dL 70-105 (test wtra=824) CALCIUM (BEAKER) (test 9.1 mg/dL 8.4-10.2 lilk=343) EGFR (BEAKER) (test 7 mL/min/1.73 sq m ESTIMATED GFR IS NOT yfcd=6579) ACCURATE CREATININE CLEARANCE IN PREDICTING GLOMERULAR FILTRATION RATE. ESTIMATED GFR IS NOT APPLICABLE FOR DIALYSIS PATIENTS. [id number] 06:29:00 Test Item Value Reference Range Comments MAGNESIUM (BEAKER) (test fhla=291) 2.2 mg/dL 1.6-2.6 CBC W/PLT COUNT & AUTO [id number] 05:57:00 Test Item Value Reference Range Comments WHITE BLOOD CELL COUNT (BEAKER) (test phyw=712) 11.4 K/ L 3.5-10.5 RED BLOOD CELL COUNT (BEAKER) (test bqca=697) 2.56 M/ L 3.93-5.22 HEMOGLOBIN (BEAKER) (test mcxl=053) 7.2 GM/DL 11.2-15.7 HEMATOCRIT (BEAKER) (test kmoz=504) 23.4 % 34.1-44.9 MEAN CORPUSCULAR VOLUME (BEAKER) (test rodx=665) 91.4 fL 79.4-94.8 MEAN CORPUSCULAR HEMOGLOBIN (BEAKER) (test 28.1 pg 25.6-32.2 gjnb=337) MEAN CORPUSCULAR HEMOGLOBIN CONC (BEAKER) (test 30.8 GM/DL 32.2-35.5 jfif=598) RED CELL DISTRIBUTION WIDTH (BEAKER) (test 14.6 % 11.7-14.4 obih=029) PLATELET COUNT (BEAKER) (test bgao=892) 246 K/CU MM 150-450 MEAN PLATELET VOLUME (BEAKER) (test glbz=788) 9.8 fL 9.4-12.3 NUCLEATED RED BLOOD CELLS (BEAKER) (test 0 /100 WBC 0-0 tkhb=332) NEUTROPHILS RELATIVE PERCENT (BEAKER) (test 82 % rbrg=712) LYMPHOCYTES RELATIVE PERCENT (BEAKER) (test 6 % cfeo=736) MONOCYTES RELATIVE PERCENT (BEAKER) (test 8 % hwfm=900) EOSINOPHILS RELATIVE PERCENT (BEAKER) (test 3 % uien=675) BASOPHILS RELATIVE PERCENT (BEAKER) (test 1 % rexs=104) NEUTROPHILS ABSOLUTE COUNT (BEAKER) (test 9.41 K/ L 1.56-6.13 rozq=583) LYMPHOCYTES ABSOLUTE COUNT (BEAKER) (test 0.70 K/ L 1.18-3.74 ntpq=201) MONOCYTES ABSOLUTE COUNT (BEAKER) (test 0.89 K/ L 0.24-0.36 ecip=439) EOSINOPHILS ABSOLUTE COUNT (BEAKER) (test 0.31 K/ L 0.04-0.36 wvof=699) BASOPHILS ABSOLUTE COUNT (BEAKER) (test 0.06 K/ L 0.01-0.08 xocu=680) IMMATURE GRANULOCYTES-RELATIVE PERCENT (BEAKER) 1 % 0-1 (test yiul=2075) POCT-GLUCOSE [id number] 21:35:00 Test Item Value Reference Range Comments POC-GLUCOSE METER (BEAKER) 249 mg/dL 70-110 TESTED AT [place] [id number] [facility] (test rcfp=5920) [facility] [address] POCT-GLUCOSE [id number] 17:49:00 Test Item Value Reference Range Comments POC-GLUCOSE METER (BEAKER) 168 mg/dL 70-110 TESTED AT [place] [id number] [facility] (test mbjg=9021) [facility] [address] [employer]AGING, MULTI, PHARM, [id number] 16:00:00FINAL REPORT PROCEDURE: Rest/Stress MYOCARDIAL PERFUSION SPECT with regadenoson\\XA9\\ CPT CODE: 46420 INDICATION: New onset heart failure, intermediate risk forcoronary artery disease HISTORY: Cardiac risk factors: ESRD, diabetes, hypertension. Other cardiovascular history: heart failure, LBBB. Current cardiovascular-related medications: Lipitor, Lasix, metoprolol, aspirin. PROTOCOL: 10.4 mCi of Tc-99m sestamibi was injected iv at rest, and SPECT (tomographic) images were obtained. Also, 29.1 mCi of Tc- 99m sestamibi was injected iv at expectedpeak pharmacologic effect, and gated SPECT images were obtained. PRELIMINARY STRESS TEST DATA FROM NONINVASIVE CARDIOLOGY: Pharmacologic stress was by 10-second iv infusion of 0.4 mg of regadenoson. Radiotracer was injected 30 seconds after start of stress. Heart rate was 91 beats/min at rest and 94beats/min (59 % of MPHR) at tracer injection. [...] soft tissue attenuation effect, patient motion, and persistentactivity in the liver and GI tract adjacent to the inferior LV. The patient refused reimaging. Resting images show similar findings. LV volume appears normal. RV is not well visualized. Gated images obtained at rest after stress injection show multifocal wall motion abnormality , worst in the anteroseptal region. QGS LVEF is 48%. IMPRESSION: 1. Abnormal study. 2. Appropriate pharmacologic stress. 3. Equivocal myocardial perfusion. While there is irregularity of perfusion, multiple scan artifacts prohibit accurate assessment of regional perfusion. 4. Overall resting LV function is mildly decreased with evidence of connection abnormality and regional hypokinesis. 5. Extracardiac tracer distribution is normal. 6. No previous [facility] study for comparison. Signed: Dariana Jones MDReport Verified Date/Time: 12/06/2018 16:00:51 Reading Location: [address] Reading Room Electronically signed by: DARIANA JONES MD on 2018 04:00 PMANG, TUNNELED CATHETER [id number] 14:29:00Reason for exam :->Tunneled cath for dialysisFINAL REPORT History: Need for long-term hemodialysis access, malfunctioningQuinton catheter.. Procedure: Following informed written consent, the patient's left cervical regionand anterior chest wall and existing nontunneled left [...] dilatation of the tract, placed through a peel-awaysheath and into position within the superior right atrium under fluoroscopic control. The catheter was secured to the skin using 2-0 Prolene suture. The small incision site was closed using 2-0 chromicsuture. There were no immediate complications. Findings: Spot radiograph following catheter insertion demonstrates the left internal jugular tunneled dialysis catheter to lie in expected position with its tip in the superior right atrium. No pneumothorax. Limited central venogram performed through theprevious nontunneled dialysis catheter demonstrated patent brachiocephalic vein and superior vena cava without evidence for stenosis or obstruction. Impression: 1. Successful uncomplicated conversion of the patient's existing left internal jugular nontunneled dialysis catheter to a tunneled catheter as described above. 2. Normal superior venacavogram without evidence for central obstruction.. Fluoroscopy time: 0.7 minsEstimated dose reported as (Ka,r): 89 mGy Signed: Aamir Aguero MDReport Verified Date/Time: 12/06/2018 14:29:30 Reading Location : [address] Body Reading Room POCT-GLUCOSE [id number] 12:31:00 Test Item Value Reference Range Comments POC-GLUCOSE METER (BEAKER) 187 mg/dL 70-110 TESTED AT [address] (test wmsi=4686) [facility] [address] POCT-GLUCOSE [id number] 11:21:00 Test Item Value Reference Range Comments POC-GLUCOSE METER (BEAKER) 165 mg/dL 70-110 TESTED AT [facility] [address] [facility] (test nejq=2247) [facility] [address] POCT-GLUCOSE [id number] 06:17:00 Test Item Value Reference Range Comments POC-GLUCOSE METER (BEAKER) 108 mg/dL 70-110 TESTED AT [facility] [address] [facility] (test djew=6967) [facility] [address] VANCOMYCIN LEVEL, [id number] 02:03:00 Test Item Value Reference Range Comments VANCOMYCIN RANDOM (BEAKER) (test rvjz=788) 18.7 ug/mL Reference Range: No NormalsCBC W/PLT COUNT & AUTO [id number] 01: 48:00 Test Item Value Reference Range Comments WHITE BLOOD CELL COUNT (BEAKER) (test sztc=432) 12.1 K/ L 3.5-10.5 RED BLOOD CELL COUNT (BEAKER) (test diwo=662) 2.76 M/ L 3.93-5.22 HEMOGLOBIN (BEAKER) (test hvbs=680) 7.7 GM/DL 11.2-15.7 HEMATOCRIT (BEAKER) (test huwn=953) 25.1 % 34.1-44.9 MEAN CORPUSCULAR VOLUME (BEAKER) (test jrup=751) 90.9 fL 79.4-94.8 MEAN CORPUSCULAR HEMOGLOBIN (BEAKER) (test 27.9 pg 25.6-32.2 ipbs=837) MEAN CORPUSCULAR HEMOGLOBIN CONC (BEAKER) (test 30.7 GM/DL 32.2-35.5 mmrn=133) RED CELL DISTRIBUTION WIDTH (BEAKER) (test 14.6 % 11.7-14.4 tigt=137) PLATELET COUNT (BEAKER) (test ntqh=445) 231 K/CU MM 150-450 MEAN PLATELET VOLUME (BEAKER) (test kqgy=666) 10.0 fL 9.4-12.3 NUCLEATED RED BLOOD CELLS (BEAKER) (test 0 /100 WBC 0-0 jsxr=442) NEUTROPHILS RELATIVE PERCENT (BEAKER) (test 84 % kzyc=105) LYMPHOCYTES RELATIVE PERCENT (BEAKER) (test 7 % uwbb=375) MONOCYTES RELATIVE PERCENT (BEAKER) (test 6 % ryyn=641) EOSINOPHILS RELATIVE PERCENT (BEAKER) (test 2 % eojn=359) BASOPHILS RELATIVE PERCENT (BEAKER) (test 1 % eiqd=055) NEUTROPHILS ABSOLUTE COUNT (BEAKER) (test 10.17 K/ L 1.56-6.13 nksp=337) LYMPHOCYTES ABSOLUTE COUNT (BEAKER) (test 0.79 K/ L 1.18-3.74 vxco=780) MONOCYTES ABSOLUTE COUNT (BEAKER) (test 0.73 K/ L 0.24-0.36 qvll=342) EOSINOPHILS ABSOLUTE COUNT (BEAKER) (test 0.24 K/ L 0.04-0.36 uwmo=364) BASOPHILS ABSOLUTE COUNT (BEAKER) (test 0.08 K/ L 0.01-0.08 ujrh=572) IMMATURE GRANULOCYTES-RELATIVE PERCENT (BEAKER) 0 % 0-1 (test gome=4991) BASIC METABOLIC [id number] 01:43:00 Test Item Value Reference Range Comments SODIUM (BEAKER) (test 136 meq/L 136-145 wpvx=336) POTASSIUM (BEAKER) (test 4.2 meq/L 3.5-5.1 dyjm=317) CHLORIDE (BEAKER) (test 99 meq/L 98-107 dzpt=234) CO2 (BEAKER) (test 27 meq/L 22-29 oecr=383) BLOOD UREA NITROGEN 29 mg/dL 7-21 (BEAKER) (test okvy=524) CREATININE (BEAKER) (test 5.09 mg/dL 0.57-1.25 jeuk=364) GLUCOSE RANDOM (BEAKER) 110 mg/dL 70-105 (test agbh=535) CALCIUM (BEAKER) (test 9.0 mg/dL 8.4-10.2 jzpr=020) EGFR (BEAKER) (test 10 mL/min/1.73 sq m ESTIMATED GFR IS NOT bqfj=1717) ACCURATE CREATININE CLEARANCE IN PREDICTING GLOMERULAR FILTRATION RATE. ESTIMATED GFR IS NOT APPLICABLE FOR DIALYSIS PATIENTS. [id number] 01:34:00 Test Item Value Reference Range Comments PARTIAL THROMBOPLASTIN TIME (BEAKER) (test 85.3 seconds 22.5-36.0 znfp=044) POCT-GLUCOSE [id number] 21:26:00 Test Item Value Reference Range Comments POC-GLUCOSE METER (BEAKER) 154 mg/dL 70-110 TESTED AT [address] (test cltt=7671) [facility] [address] POCT-GLUCOSE [id number] 16:29:00 Test Item Value Reference Range Comments POC-GLUCOSE METER (BEAKER) 121 mg/dL 70-110 TESTED AT [address] (test bskv=9036) [facility] [address] POCT-GLUCOSE [id number] 16:26:00 Test Item Value Reference Range Comments POC-GLUCOSE METER (BEAKER) 119 mg/dL 70-110 TESTED AT [address] (test agev=9874) [facility] [address] [id number] 08:47:00 Test Item Value Reference Range Comments PARTIAL THROMBOPLASTIN TIME (BEAKER) (test 85.2 seconds 22.5-36.0 grtf=383) BASIC METABOLIC [id number] 08:29:00 Test Item Value Reference Range Comments SODIUM (BEAKER) (test 133 meq/L 136-145 zphh=939) POTASSIUM (BEAKER) (test 4.7 meq/L 3.5-5.1 sbgj=472) CHLORIDE (BEAKER) (test 93 meq/L 98-107 lfhs=906) CO2 (BEAKER) (test 24 meq/L 22-29 ynfc=392) BLOOD UREA NITROGEN 64 mg/dL 7-21 (BEAKER) (test nypf=348) CREATININE (BEAKER) (test 8.39 mg/dL 0.57-1.25 xdhq=421) GLUCOSE RANDOM (BEAKER) 117 mg/dL 70-105 (test ocyd=632) CALCIUM (BEAKER) (test 8.7 mg/dL 8.4-10.2 zpqj=561) EGFR (BEAKER) (test 6 mL/min/1.73 sq m ESTIMATED GFR IS NOT vxyq=1891) ACCURATE CREATININE CLEARANCE IN PREDICTING GLOMERULAR FILTRATION RATE. ESTIMATED GFR IS NOT APPLICABLE FOR DIALYSIS PATIENTS. CBC W/PLT COUNT & AUTO [id number] 08:25:00 Test Item Value Reference Range Comments WHITE BLOOD CELL COUNT (BEAKER) (test njai=630) 15.1 K/ L 3.5-10.5 RED BLOOD CELL COUNT (BEAKER) (test bqxh=558) 2.84 M/ L 3.93-5.22 HEMOGLOBIN (BEAKER) (test iijb=587) 7.8 GM/DL 11.2-15.7 HEMATOCRIT (BEAKER) (test ofee=893) 25.8 % 34.1-44.9 MEAN CORPUSCULAR VOLUME (BEAKER) (test uqfx=236) 90.8 fL 79.4-94.8 MEAN CORPUSCULAR HEMOGLOBIN (BEAKER) (test 27.5 pg 25.6-32.2 sqrn=333) MEAN CORPUSCULAR HEMOGLOBIN CONC (BEAKER) (test 30.2 GM/DL 32.2-35.5 nmpl=428) RED CELL DISTRIBUTION WIDTH (BEAKER) (test 14.7 % 11.7-14.4 jdwm=127) PLATELET COUNT (BEAKER) (test jsxl=506) 258 K/CU MM 150-450 MEAN PLATELET VOLUME (BEAKER) (test oosi=225) 10.4 fL 9.4-12.3 NUCLEATED RED BLOOD CELLS (BEAKER) (test 0 /100 WBC 0-0 ogsg=179) NEUTROPHILS RELATIVE PERCENT (BEAKER) (test 83 % zynk=486) LYMPHOCYTES RELATIVE PERCENT (BEAKER) (test 8 % aoau=939) MONOCYTES RELATIVE PERCENT (BEAKER) (test 6 % ecmv=025) EOSINOPHILS RELATIVE PERCENT (BEAKER) (test 2 % yizn=690) BASOPHILS RELATIVE PERCENT (BEAKER) (test 1 % rfjp=899) NEUTROPHILS ABSOLUTE COUNT (BEAKER) (test 12.58 K/ L 1.56-6.13 tdgr=944) LYMPHOCYTES ABSOLUTE COUNT (BEAKER) (test 1.18 K/ L 1.18-3.74 lnpf=661) MONOCYTES ABSOLUTE COUNT (BEAKER) (test 0.87 K/ L 0.24-0.36 jjha=535) EOSINOPHILS ABSOLUTE COUNT (BEAKER) (test 0.30 K/ L 0.04-0.36 dlut=043) BASOPHILS ABSOLUTE COUNT (BEAKER) (test 0.08 K/ L 0.01-0.08 lxim=791) IMMATURE GRANULOCYTES-RELATIVE PERCENT (BEAKER) 1 % 0-1 (test hllu=4921) [id number] 23:58:00 Test Item Value Reference Range Comments PARTIAL THROMBOPLASTIN TIME (BEAKER) (test 92.6 seconds 22.5-36.0 qhnz=422) POCT-GLUCOSE [id number] 20:54:00 Test Item Value Reference Range Comments POC-GLUCOSE METER (BEAKER) 151 mg/dL 70-110 TESTED AT [address] (test bdod=4292) [facility] [address] POCT-GLUCOSE [id number] 17:04:00 Test Item Value Reference Range Comments POC-GLUCOSE METER (BEAKER) 158 mg/dL 70-110 TESTED AT [address] (test lptj=1273) [place] [address] [id number] 16:25:00 Test Item Value Reference Range Comments PARTIAL THROMBOPLASTIN TIME (BEAKER) (test 75.9 seconds 22.5-36.0 ltql=566) POCT-GLUCOSE [id number] 12:34:00 Test Item Value Reference Range Comments POC-GLUCOSE METER (BEAKER) 183 mg/dL 70-110 TESTED AT [address] (test tsdr=6864) [place] [id number] POCT-GLUCOSE [id number] 12:00:00 Test Item Value Reference Range Comments POC-GLUCOSE METER (BEAKER) 175 mg/dL 70-110 TESTED AT [address] (test tkvr=7371) [place] [id number] 10:17:00 Test Item Value Reference Range Comments PARTIAL THROMBOPLASTIN TIME (BEAKER) (test 32.1 seconds 22.5-36.0 zkdt=126) Prior to initiating heparinBASIC METABOLIC [id number] 08:20:00 Test Item Value Reference Range Comments SODIUM (BEAKER) (test 134 meq/L 136-145 taii=734) POTASSIUM (BEAKER) (test 4.3 meq/L 3.5-5.1 zwcb=677) CHLORIDE (BEAKER) (test 98 meq/L 98-107 mkgs=291) CO2 (BEAKER) (test 26 meq/L 22-29 tbub=600) BLOOD UREA NITROGEN 48 mg/dL 7-21 (BEAKER) (test xccn=384) CREATININE (BEAKER) (test 6.48 mg/dL 0.57-1.25 dqch=898) GLUCOSE RANDOM (BEAKER) 124 mg/dL 70-105 (test ijsv=792) CALCIUM (BEAKER) (test 9.2 mg/dL 8.4-10.2 klng=863) EGFR (BEAKER) (test 8 mL/min/1.73 sq m ESTIMATED GFR IS NOT yesr=1737) ACCURATE CREATININE CLEARANCE IN PREDICTING GLOMERULAR FILTRATION RATE. ESTIMATED GFR IS NOT APPLICABLE FOR DIALYSIS PATIENTS. VANCOMYCIN LEVEL, [id number] 08:06:00 Test Item Value Reference Range Comments VANCOMYCIN RANDOM (BEAKER) (test fcvx=956) 28.6 ug/mL Reference Range: No NormalsCBC W/PLT COUNT & AUTO [id number] 07: 14:00 Test Item Value Reference Range Comments WHITE BLOOD CELL COUNT (BEAKER) (test wpsm=561) 13.3 K/ L 3.5-10.5 RED BLOOD CELL COUNT (BEAKER) (test jizj=258) 2.89 M/ L 3.93-5.22 HEMOGLOBIN (BEAKER) (test qkhg=902) 7.9 GM/DL 11.2-15.7 HEMATOCRIT (BEAKER) (test qxme=592) 26.4 % 34.1-44.9 MEAN CORPUSCULAR VOLUME (BEAKER) (test ttro=885) 91.3 fL 79.4-94.8 MEAN CORPUSCULAR HEMOGLOBIN (BEAKER) (test 27.3 pg 25.6-32.2 tmsh=235) MEAN CORPUSCULAR HEMOGLOBIN CONC (BEAKER) (test 29.9 GM/DL 32.2-35.5 nsgn=870) RED CELL DISTRIBUTION WIDTH (BEAKER) (test 15.2 % 11.7-14.4 updx=459) PLATELET COUNT (BEAKER) (test udqz=837) 242 K/CU MM 150-450 MEAN PLATELET VOLUME (BEAKER) (test dwmc=651) 10.2 fL 9.4-12.3 NUCLEATED RED BLOOD CELLS (BEAKER) (test 0 /100 WBC 0-0 aqbv=548) NEUTROPHILS RELATIVE PERCENT (BEAKER) (test 82 % uaib=263) LYMPHOCYTES RELATIVE PERCENT (BEAKER) (test 8 % pird=225) MONOCYTES RELATIVE PERCENT (BEAKER) (test 6 % jnyn=724) EOSINOPHILS RELATIVE PERCENT (BEAKER) (test 2 % sfin=753) BASOPHILS RELATIVE PERCENT (BEAKER) (test 1 % uxfi=402) NEUTROPHILS ABSOLUTE COUNT (BEAKER) (test 10.92 K/ L 1.56-6.13 sfji=794) LYMPHOCYTES ABSOLUTE COUNT (BEAKER) (test 1.06 K/ L 1.18-3.74 hnkm=453) MONOCYTES ABSOLUTE COUNT (BEAKER) (test 0.84 K/ L 0.24-0.36 hlbs=610) EOSINOPHILS ABSOLUTE COUNT (BEAKER) (test 0.31 K/ L 0.04-0.36 vizj=389) BASOPHILS ABSOLUTE COUNT (BEAKER) (test 0.08 K/ L 0.01-0.08 jezu=540) IMMATURE GRANULOCYTES-RELATIVE PERCENT (BEAKER) 1 % 0-1 (test mwah=4325) POCT-GLUCOSE [id number] 21:22:00 Test Item Value Reference Range Comments POC-GLUCOSE METER (BEAKER) 209 mg/dL 70-110 TESTED AT [address] (test msis=0665) [place] [address] POCT-GLUCOSE [id number] 17:40:00 Test Item Value Reference Range Comments POC-GLUCOSE METER (BEAKER) 213 mg/dL 70-110 TESTED AT [address] (test vgsb=2856) [place] [address] POCT-GLUCOSE [id number] 12:28:00 Test Item Value Reference Range Comments POC-GLUCOSE METER (BEAKER) 298 mg/dL 70-110 TESTED AT [address] (test eqtv=5981) [place] [address] BLOOD [id number] 11:01:00 Test Item Value Reference Range Comments CULTURE (AKER) (test wphq=8858) No growth in 5 days POCT-GLUCOSE [id number] 08:43:00 Test Item Value Reference Range Comments POC-GLUCOSE METER (BEAKER) 147 mg/dL 70-110 TESTED AT [address] (test qlxr=8222) [place] [address] CBC W/PLT COUNT & AUTO [id number] 07:17:00 Test Item Value Reference Range Comments WHITE BLOOD CELL COUNT (BEAKER) (test zqnv=565) 12.1 K/ L 3.5-10.5 RED BLOOD CELL COUNT (BEAKER) (test abdg=723) 2.54 M/ L 3.93-5.22 HEMOGLOBIN (BEAKER) (test ndnh=445) 6.9 GM/DL 11.2-15.7 HEMATOCRIT (BEAKER) (test iotn=437) 24.0 % 34.1-44.9 MEAN CORPUSCULAR VOLUME (BEAKER) (test ekcw=685) 94.5 fL 79.4-94.8 MEAN CORPUSCULAR HEMOGLOBIN (BEAKER) (test 27.2 pg 25.6-32.2 wuuz=813) MEAN CORPUSCULAR HEMOGLOBIN CONC (BEAKER) (test 28.8 GM/DL 32.2-35.5 ookj=043) RED CELL DISTRIBUTION WIDTH (BEAKER) (test 14.9 % 11.7-14.4 puei=217) PLATELET COUNT (BEAKER) (test naxz=624) 253 K/CU MM 150-450 MEAN PLATELET VOLUME (BEAKER) (test ivic=019) 10.0 fL 9.4-12.3 NUCLEATED RED BLOOD CELLS (BEAKER) (test 0 /100 WBC 0-0 qajd=496) NEUTROPHILS RELATIVE PERCENT (BEAKER) (test 83 % tebo=379) LYMPHOCYTES RELATIVE PERCENT (BEAKER) (test 7 % usft=427) MONOCYTES RELATIVE PERCENT (BEAKER) (test 6 % bepe=122) EOSINOPHILS RELATIVE PERCENT (BEAKER) (test 3 % ubqh=608) BASOPHILS RELATIVE PERCENT (BEAKER) (test 1 % nhib=354) NEUTROPHILS ABSOLUTE COUNT (BEAKER) (test 10.04 K/ L 1.56-6.13 hnlx=426) LYMPHOCYTES ABSOLUTE COUNT (BEAKER) (test 0.88 K/ L 1.18-3.74 vegc=975) MONOCYTES ABSOLUTE COUNT (BEAKER) (test 0.66 K/ L 0.24-0.36 nvsa=295) EOSINOPHILS ABSOLUTE COUNT (BEAKER) (test 0.34 K/ L 0.04-0.36 uxxy=170) BASOPHILS ABSOLUTE COUNT (BEAKER) (test 0.09 K/ L 0.01-0.08 sphm=891) IMMATURE GRANULOCYTES-RELATIVE PERCENT (BEAKER) 1 % 0-1 (test rsvg=0701) BASIC METABOLIC [id number] 07:02:00 Test Item Value Reference Range Comments SODIUM (BEAKER) (test 134 meq/L 136-145 tjva=534) POTASSIUM (BEAKER) (test 4.2 meq/L 3.5-5.1 Specimen slightly yeeb=061) hemolyzed CHLORIDE (BEAKER) (test 99 meq/L 98-107 wxag=393) CO2 (BEAKER) (test 25 meq/L 22-29 aosw=541) BLOOD UREA NITROGEN 29 mg/dL 7-21 (BEAKER) (test evxa=642) CREATININE (BEAKER) (test 4.76 mg/dL 0.57-1.25 Specimen slightly pfoe=181) hemolyzed GLUCOSE RANDOM (BEAKER) 116 mg/dL 70-105 (test jzqo=952) CALCIUM (BEAKER) (test 8.6 mg/dL 8.4-10.2 yktx=973) EGFR (BEAKER) (test 11 mL/min/1.73 sq m ESTIMATED GFR IS NOT stfh=3923) ACCURATE CREATININE CLEARANCE IN PREDICTING GLOMERULAR FILTRATION RATE. ESTIMATED GFR IS NOT APPLICABLE FOR DIALYSIS PATIENTS. BLOOD [id number] 11:01:00 Test Item Value Reference Range Comments CULTURE (BEAKER) (test pqdu=4872) No growth in 5 days MR, EXTREMITY, LOWER, JOINT, WITHOUT CONTRAST, [id number] 09:05:00Reason for exam:->For hip painFINAL REPORT Indication: Right hip pain TECHNIQUE: Multiplanar [...] muscle atrophy. There is a low-grade partial tearof the right gluteus medius tendon distally. There is wall thickening of the urinary bladder which can be correlated with urinalysis. There are uterine fibroids. There is no lymphadenopathy. Mild degenerative changes are seen in the bilateral hips. There is no bony erosion or osteonecrosis. IMPRESSION:1. No fracture or traumatic malalignment.2. Mild degenerative changes of the bilateral hips.3. Subcutaneous edema lateral to the greater trochanter without fluid collection or hematoma.4. Mild edema inthe right gluteus maximize and medius muscles. Partial tear of the right gluteus medius tendon distally.5. Wall thickening of the urinary bladder can be correlated with urinalysis. Uterine fibroids. Signed: Jayson Short MDReport Verified Date/Time: 12/02/2018 09:05:25 Reading Location: [facility] B1 [id number] Ortho Consult Reading Room Electronically signed by: JAYSON SHORT M.D. on 2018 09:05 AMHEMOGLOBIN AND [id number] 08:39:00 Test Item Value Reference Range Comments HEMOGLOBIN (BEAKER) (test oxao=782) 7.2 GM/DL 11.2-15.7 HEMATOCRIT (BEAKER) (test khyg=751) 24.1 % 34.1-44.9 POCT-GLUCOSE [id number] 07:54:00 Test Item Value Reference Range Comments POC-GLUCOSE METER (BEAKER) 186 mg/dL 70-110 TESTED AT [facility] [address] (test mrvl=1454) [facility] [address] CBC W/PLT COUNT & AUTO [id number] 07:22:00 Test Item Value Reference Range Comments WHITE BLOOD CELL COUNT (BEAKER) (test eqqf=639) 13.3 K/ L 3.5-10.5 RED BLOOD CELL COUNT (BEAKER) (test uamw=516) 2.47 M/ L 3.93-5.22 HEMOGLOBIN (BEAKER) (test kbnx=291) 6.8 GM/DL 11.2-15.7 HEMATOCRIT (BEAKER) (test ybpm=874) 23.2 % 34.1-44.9 MEAN CORPUSCULAR VOLUME (BEAKER) (test mfav=954) 93.9 fL 79.4-94.8 MEAN CORPUSCULAR HEMOGLOBIN (BEAKER) (test 27.5 pg 25.6-32.2 kavv=501) MEAN CORPUSCULAR HEMOGLOBIN CONC (BEAKER) (test 29.3 GM/DL 32.2-35.5 adpj=326) RED CELL DISTRIBUTION WIDTH (BEAKER) (test 15.2 % 11.7-14.4 njex=326) PLATELET COUNT (BEAKER) (test gndj=898) 304 K/CU MM 150-450 MEAN PLATELET VOLUME (BEAKER) (test vzvn=450) 9.9 fL 9.4-12.3 NUCLEATED RED BLOOD CELLS (BEAKER) (test 0 /100 WBC 0-0 itpf=795) NEUTROPHILS RELATIVE PERCENT (BEAKER) (test 84 % kkcc=785) LYMPHOCYTES RELATIVE PERCENT (BEAKER) (test 7 % lach=502) MONOCYTES RELATIVE PERCENT (BEAKER) (test 5 % lwws=356) EOSINOPHILS RELATIVE PERCENT (BEAKER) (test 3 % xfye=923) BASOPHILS RELATIVE PERCENT (BEAKER) (test 0 % booc=120) NEUTROPHILS ABSOLUTE COUNT (BEAKER) (test 11.17 K/ L 1.56-6.13 xpsg=589) LYMPHOCYTES ABSOLUTE COUNT (BEAKER) (test 0.95 K/ L 1.18-3.74 bums=809) MONOCYTES ABSOLUTE COUNT (BEAKER) (test 0.70 K/ L 0.24-0.36 ipjz=642) EOSINOPHILS ABSOLUTE COUNT (BEAKER) (test 0.37 K/ L 0.04-0.36 fhvw=440) BASOPHILS ABSOLUTE COUNT (BEAKER) (test 0.04 K/ L 0.01-0.08 huhy=178) IMMATURE GRANULOCYTES-RELATIVE PERCENT (BEAKER) 1 % 0-1 (test kodq=5734) POCT-GLUCOSE [id number] 07:10:00 Test Item Value Reference Range Comments POC-GLUCOSE METER (BEAKER) 177 mg/dL 70-110 TESTED AT [facility] [address] (test iyen=4307) [facility] [address] BASIC METABOLIC [id number] 06:52:00 Test Item Value Reference Range Comments SODIUM (BEAKER) (test 137 meq/L 136-145 ikin=226) POTASSIUM (BEAKER) (test 4.0 meq/L 3.5-5.1 rueu=800) CHLORIDE (BEAKER) (test 97 meq/L 98-107 effa=229) CO2 (BEAKER) (test 30 meq/L 22-29 aciv=002) BLOOD UREA NITROGEN 46 mg/dL 7-21 (BEAKER) (test dpvr=336) CREATININE (BEAKER) (test 6.47 mg/dL 0.57-1.25 vbiu=088) GLUCOSE RANDOM (BEAKER) 148 mg/dL 70-105 (test tplg=647) CALCIUM (BEAKER) (test 9.1 mg/dL 8.4-10.2 ddjq=114) EGFR (BEAKER) (test 8 mL/min/1.73 sq m ESTIMATED GFR IS NOT atxo=9905) ACCURATE CREATININE CLEARANCE IN PREDICTING GLOMERULAR FILTRATION RATE. ESTIMATED GFR IS NOT APPLICABLE FOR DIALYSIS PATIENTS. VANCOMYCIN LEVEL, [id number] 06:43:00 Test Item Value Reference Range Comments VANCOMYCIN RANDOM (BEAKER) (test ioam=131) 19.0 ug/mL Reference Range: No NormalsPT/[id number] 06:25:00 Test Item Value Reference Range Comments PROTIME (BEAKER) (test glvy=235) 14.1 seconds 11.7-14.7 INR (BEAKER) (test jurr=686) 1.1 <=5.9 PARTIAL THROMBOPLASTIN TIME (BEAKER) (test 39.6 seconds 22.5-36.0 fgji=577) RECOMMENDED COUMADIN/WARFARIN INR THERAPY RANGESSTANDARD DOSE: 2.0 - 3.0 Includes: PROPHYLAXIS forvenous thrombosis, systemic embolization; TREATMENT for venous thrombosis and/or pulmonary embolus.HIGH RISK: Target INR is 2.5-3.5 for patients with mechanical heart valves.POCT-GLUCOSE [id number] 23:37:00 Test Item Value Reference Range Comments POC-GLUCOSE METER (BEAKER) 258 mg/dL 70-110 TESTED AT [address] (test cuqm=2499) [place] [address] POCT-GLUCOSE [id number] 12:31:00 Test Item Value Reference Range Comments POC-GLUCOSE METER (BEAKER) 184 mg/dL 70-110 TESTED AT [address] (test ynuo=3867) [place] [address] BASIC METABOLIC [id number] 12:27:00 Test Item Value Reference Range Comments SODIUM (BEAKER) (test 136 meq/L 136-145 gtya=678) POTASSIUM (BEAKER) (test 4.0 meq/L 3.5-5.1 uqvi=673) CHLORIDE (BEAKER) (test 99 meq/L 98-107 vlwo=105) CO2 (BEAKER) (test 26 meq/L 22-29 fbah=903) BLOOD UREA NITROGEN 29 mg/dL 7-21 (BEAKER) (test qval=389) CREATININE (BEAKER) (test 4.92 mg/dL 0.57-1.25 enfd=640) GLUCOSE RANDOM (BEAKER) 129 mg/dL 70-105 (test acdr=029) CALCIUM (BEAKER) (test 9.0 mg/dL 8.4-10.2 qgxv=968) EGFR (BEAKER) (test 11 mL/min/1.73 sq m ESTIMATED GFR IS NOT axuy=3456) ACCURATE CREATININE CLEARANCE IN PREDICTING GLOMERULAR FILTRATION RATE. ESTIMATED GFR IS NOT APPLICABLE FOR DIALYSIS PATIENTS. CBC W/PLT COUNT & AUTO [id number] 12:20:00 Test Item Value Reference Range Comments WHITE BLOOD CELL COUNT (BEAKER) (test pscn=024) 14.6 K/ L 3.5-10.5 RED BLOOD CELL COUNT (BEAKER) (test lkly=348) 2.69 M/ L 3.93-5.22 HEMOGLOBIN (BEAKER) (test kakn=016) 7.4 GM/DL 11.2-15.7 HEMATOCRIT (BEAKER) (test qqgv=792) 25.1 % 34.1-44.9 MEAN CORPUSCULAR VOLUME (BEAKER) (test jkws=153) 93.3 fL 79.4-94.8 MEAN CORPUSCULAR HEMOGLOBIN (BEAKER) (test 27.5 pg 25.6-32.2 intu=475) MEAN CORPUSCULAR HEMOGLOBIN CONC (BEAKER) (test 29.5 GM/DL 32.2-35.5 rudh=164) RED CELL DISTRIBUTION WIDTH (BEAKER) (test 15.5 % 11.7-14.4 sbdb=692) PLATELET COUNT (BEAKER) (test kdxk=830) 295 K/CU MM 150-450 MEAN PLATELET VOLUME (BEAKER) (test cord=651) 9.8 fL 9.4-12.3 NUCLEATED RED BLOOD CELLS (BEAKER) (test 0 /100 WBC 0-0 alpi=653) NEUTROPHILS RELATIVE PERCENT (BEAKER) (test 83 % ingy=721) LYMPHOCYTES RELATIVE PERCENT (BEAKER) (test 8 % zcdl=289) MONOCYTES RELATIVE PERCENT (BEAKER) (test 6 % lsqz=406) EOSINOPHILS RELATIVE PERCENT (BEAKER) (test 2 % aeym=483) BASOPHILS RELATIVE PERCENT (BEAKER) (test 1 % wkmw=820) NEUTROPHILS ABSOLUTE COUNT (BEAKER) (test 12.12 K/ L 1.56-6.13 lbze=377) LYMPHOCYTES ABSOLUTE COUNT (BEAKER) (test 1.19 K/ L 1.18-3.74 bhpd=473) MONOCYTES ABSOLUTE COUNT (BEAKER) (test 0.81 K/ L 0.24-0.36 ryap=205) EOSINOPHILS ABSOLUTE COUNT (BEAKER) (test 0.31 K/ L 0.04-0.36 bnkf=698) BASOPHILS ABSOLUTE COUNT (BEAKER) (test 0.07 K/ L 0.01-0.08 cnkf=248) IMMATURE GRANULOCYTES-RELATIVE PERCENT (BEAKER) 1 % 0-1 (test yxsh=5022) RAD, HIP, 1 VIEW, [id number] 11:34:00Reason for exam:->R hip painShould this be performed at the bedside?->Please get portable.FINAL REPORT RAD, HIP, 1 VIEW, RIGHT CLINICAL INDICATION: R hip pain COMPARISON: None FINDINGS: Single AP view of the pelvis Frontal and frogleg views of the right hip. Limitedby body habitus. There is no fracture or malalignment. The sacroiliac joints, hip joints and symphysis pubis appear intact. Periarticular fat stripes are in place. Surrounding soft tissues are unremarkable. IMPRESSION: No acute or traumatic abnormality of the pelvis or right hip. Signed: JR Cuenca Robert MDReport Verified Date/Time: 2018 11:34:51 Reading Location: [facility] Radiology Reading Room POCT- GLUCOSE [id number] 08:01:00 Test Item Value Reference Range Comments POC-GLUCOSE METER (FARRAH) 189 mg/dL 70-110 TESTED AT [facility] [address] (test zxpr=2292) [facility] [address] VANCOMYCIN LEVEL, [id number] 06:44:00 Test Item Value Reference Range Comments VANCOMYCIN RANDOM (BEAKER) (test vtpo=585) 19.8 ug/mL Reference Range: No NormalsGENTAMICIN LEVEL, [id number] 21:58:00 Test Item Value Reference Range Comments GENTAMICIN TROUGH (BEAKER) (test mrvc=141) 1.5 ug/mL 0.5-1.0 Dosing Target Level (mcg/mL)1-1.5 mg/kg q 8-12 HR 0.5- 1.03-7 mg/kg q 24 HR <0.5Before gent dosePOCT-GLUCOSE [id number] 20:39:00 Test Item Value Reference Range Comments POC-GLUCOSE METER (BEAKER) 229 mg/dL 70-110 TESTED AT [address] (test xxom=2635) [facility] [address] POCT-GLUCOSE [id number] 20:02:00 Test Item Value Reference Range Comments POC-GLUCOSE METER (BEAKER) 251 mg/dL 70-110 TESTED AT [address] (test hwed=0711) [facility] [address] POCT-GLUCOSE [id number] 13:49:00 Test Item Value Reference Range Comments POC-GLUCOSE METER (BEAKER) 211 mg/dL 70-110 TESTED AT [address] (test fria=8046) [place] [address] POCT-GLUCOSE [id number] 08:02:00 Test Item Value Reference Range Comments POC-GLUCOSE METER (BEAKER) 182 mg/dL 70-110 TESTED AT [address] (test awdf=7182) [facility] [address] BASIC METABOLIC [id number] 07:28:00 Test Item Value Reference Range Comments SODIUM (BEAKER) (test 138 meq/L 136-145 wsoz=742) POTASSIUM (BEAKER) (test 4.1 meq/L 3.5-5.1 igbt=230) CHLORIDE (BEAKER) (test 101 meq/L 98-107 ievs=513) CO2 (BEAKER) (test 26 meq/L 22-29 lwzp=024) BLOOD UREA NITROGEN 42 mg/dL 7-21 (BEAKER) (test kjud=702) CREATININE (BEAKER) (test 6.85 mg/dL 0.57-1.25 dhah=475) GLUCOSE RANDOM (BEAKER) 138 mg/dL 70-105 (test qzxk=455) CALCIUM (BEAKER) (test 8.9 mg/dL 8.4-10.2 vksi=565) EGFR (BEAKER) (test 7 mL/min/1.73 sq m ESTIMATED GFR IS NOT ylkg=5084) ACCURATE CREATININE CLEARANCE IN PREDICTING GLOMERULAR FILTRATION RATE. ESTIMATED GFR IS NOT APPLICABLE FOR DIALYSIS PATIENTS. VANCOMYCIN LEVEL, [id number] 07:07:00 Test Item Value Reference Range Comments VANCOMYCIN RANDOM (BEAKER) (test dvqp=389) 25.1 ug/mL Reference Range: No NormalsCBC W/PLT COUNT & AUTO [id number] 07: 02:00 Test Item Value Reference Range Comments WHITE BLOOD CELL COUNT (BEAKER) (test bhuq=869) 15.1 K/ L 3.5-10.5 RED BLOOD CELL COUNT (BEAKER) (test rllq=290) 2.67 M/ L 3.93-5.22 HEMOGLOBIN (BEAKER) (test hebr=846) 7.4 GM/DL 11.2-15.7 HEMATOCRIT (BEAKER) (test xkix=843) 24.8 % 34.1-44.9 MEAN CORPUSCULAR VOLUME (BEAKER) (test bunl=728) 92.9 fL 79.4-94.8 MEAN CORPUSCULAR HEMOGLOBIN (BEAKER) (test 27.7 pg 25.6-32.2 pgxo=411) MEAN CORPUSCULAR HEMOGLOBIN CONC (BEAKER) (test 29.8 GM/DL 32.2-35.5 vbhu=062) RED CELL DISTRIBUTION WIDTH (BEAKER) (test 15.9 % 11.7-14.4 hwao=434) PLATELET COUNT (BEAKER) (test jxvm=860) 303 K/CU MM 150-450 MEAN PLATELET VOLUME (BEAKER) (test sohd=184) 10.1 fL 9.4-12.3 NUCLEATED RED BLOOD CELLS (BEAKER) (test 0 /100 WBC 0-0 isie=580) NEUTROPHILS RELATIVE PERCENT (BEAKER) (test 85 % wjdh=347) LYMPHOCYTES RELATIVE PERCENT (BEAKER) (test 6 % izim=756) MONOCYTES RELATIVE PERCENT (BEAKER) (test 6 % bcgj=411) EOSINOPHILS RELATIVE PERCENT (BEAKER) (test 2 % yvem=968) BASOPHILS RELATIVE PERCENT (BEAKER) (test 0 % safc=745) NEUTROPHILS ABSOLUTE COUNT (BEAKER) (test 12.90 K/ L 1.56-6.13 ebmu=385) LYMPHOCYTES ABSOLUTE COUNT (BEAKER) (test 0.85 K/ L 1.18-3.74 zwdc=865) MONOCYTES ABSOLUTE COUNT (BEAKER) (test 0.97 K/ L 0.24-0.36 acin=105) EOSINOPHILS ABSOLUTE COUNT (BEAKER) (test 0.25 K/ L 0.04-0.36 bipe=214) BASOPHILS ABSOLUTE COUNT (BEAKER) (test 0.03 K/ L 0.01-0.08 xmoh=327) IMMATURE GRANULOCYTES-RELATIVE PERCENT (BEAKER) 1 % 0-1 (test brvw=3055) POCT-GLUCOSE [id number] 21:24:00 Test Item Value Reference Range Comments POC-GLUCOSE METER (BEAKER) 189 mg/dL 70-110 TESTED AT [address] (test soiw=0446) [place] [id number] POCT-GLUCOSE [id number] 17:50:00 Test Item Value Reference Range Comments POC-GLUCOSE METER (BEAKER) 215 mg/dL 70-110 TESTED AT [address] (test irxx=9079) [place] [address] POCT-GLUCOSE [id number] 13:23:00 Test Item Value Reference Range Comments POC-GLUCOSE METER (BEAKER) 270 mg/dL 70-110 TESTED AT [address] (test xyao=4253) [place] [address] POCT-GLUCOSE [id number] 08:37:00 Test Item Value Reference Range Comments POC-GLUCOSE METER (BEAKER) 138 mg/dL 70-110 TESTED AT [address] (test ryeh=4841) [facility] [address] BASIC METABOLIC [id number] 06:54:00 Test Item Value Reference Range Comments SODIUM (BEAKER) (test 138 meq/L 136-145 wamr=436) POTASSIUM (BEAKER) (test 3.9 meq/L 3.5-5.1 nzwz=360) CHLORIDE (BEAKER) (test 100 meq/L 98-107 bnhl=035) CO2 (BEAKER) (test 26 meq/L 22-29 aypw=947) BLOOD UREA NITROGEN 27 mg/dL 7-21 (BEAKER) (test unct=839) CREATININE (BEAKER) (test 5.01 mg/dL 0.57-1.25 tzuf=195) GLUCOSE RANDOM (BEAKER) 117 mg/dL 70-105 (test wscq=504) CALCIUM (BEAKER) (test 8.6 mg/dL 8.4-10.2 xezb=876) EGFR (BEAKER) (test 11 mL/min/1.73 sq m ESTIMATED GFR IS NOT oizl=8106) ACCURATE CREATININE CLEARANCE IN PREDICTING GLOMERULAR FILTRATION RATE. ESTIMATED GFR IS NOT APPLICABLE FOR DIALYSIS PATIENTS. [id number] 06:53:00 Test Item Value Reference Range Comments PHOSPHORUS (BEAKER) (test qpsw=902) 4.1 mg/dL 2.3-4.7 [id number] 06:53:00 Test Item Value Reference Range Comments MAGNESIUM (BEAKER) (test bzyq=295) 1.9 mg/dL 1.6-2.6 VANCOMYCIN LEVEL, [id number] 06:51:00 Test Item Value Reference Range Comments VANCOMYCIN RANDOM (BEAKER) (test mgmb=046) 27.5 ug/mL Reference Range: No NormalsCBC W/PLT COUNT & AUTO [id number] 06: 30:00 Test Item Value Reference Range Comments WHITE BLOOD CELL COUNT (BEAKER) (test vguc=117) 14.6 K/ L 3.5-10.5 RED BLOOD CELL COUNT (BEAKER) (test dgyy=306) 2.82 M/ L 3.93-5.22 HEMOGLOBIN (BEAKER) (test owfr=112) 7.8 GM/DL 11.2-15.7 HEMATOCRIT (BEAKER) (test tuio=909) 25.6 % 34.1-44.9 MEAN CORPUSCULAR VOLUME (BEAKER) (test sisr=704) 90.8 fL 79.4-94.8 MEAN CORPUSCULAR HEMOGLOBIN (BEAKER) (test 27.7 pg 25.6-32.2 olyz=758) MEAN CORPUSCULAR HEMOGLOBIN CONC (BEAKER) (test 30.5 GM/DL 32.2-35.5 uzdo=793) RED CELL DISTRIBUTION WIDTH (BEAKER) (test 15.8 % 11.7-14.4 cviq=255) PLATELET COUNT (BEAKER) (test nagl=036) 266 K/CU MM 150-450 MEAN PLATELET VOLUME (BEAKER) (test yshu=732) 10.2 fL 9.4-12.3 NUCLEATED RED BLOOD CELLS (BEAKER) (test 0 /100 WBC 0-0 imuo=507) NEUTROPHILS RELATIVE PERCENT (BEAKER) (test 82 % wjyr=500) LYMPHOCYTES RELATIVE PERCENT (BEAKER) (test 7 % usfy=981) MONOCYTES RELATIVE PERCENT (BEAKER) (test 9 % gdga=970) EOSINOPHILS RELATIVE PERCENT (BEAKER) (test 1 % vanv=236) BASOPHILS RELATIVE PERCENT (BEAKER) (test 0 % jggb=633) NEUTROPHILS ABSOLUTE COUNT (BEAKER) (test 11.86 K/ L 1.56-6.13 opfm=406) LYMPHOCYTES ABSOLUTE COUNT (BEAKER) (test 1.00 K/ L 1.18-3.74 cfim=935) MONOCYTES ABSOLUTE COUNT (BEAKER) (test 1.24 K/ L 0.24-0.36 yucq=661) EOSINOPHILS ABSOLUTE COUNT (BEAKER) (test 0.21 K/ L 0.04-0.36 rlbb=800) BASOPHILS ABSOLUTE COUNT (BEAKER) (test 0.04 K/ L 0.01-0.08 zprn=090) IMMATURE GRANULOCYTES-RELATIVE PERCENT (BEAKER) 1 % 0-1 (test ibbo=2728) POCT-GLUCOSE [id number] 00:41:00 Test Item Value Reference Range Comments POC-GLUCOSE METER (BEAKER) 139 mg/dL 70-110 TESTED AT [address] (test tmjf=6069) [place] [address] HEMOGLOBIN AND [id number] 23:23:00 Test Item Value Reference Range Comments HEMOGLOBIN (BEAKER) (test lnaw=590) 9.0 GM/DL 11.2-15.7 HEMATOCRIT (BEAKER) (test nzoq=110) 29.7 % 34.1-44.9 Check after HD after she receives her blood transfusionPOCT-GLUCOSE [id number] 17:53:00 Test Item Value Reference Range Comments POC-GLUCOSE METER (BEAKER) 177 mg/dL 70-110 TESTED AT [address] (test mocj=9254) [place] [address] POCT-GLUCOSE [id number] 13:03:00 Test Item Value Reference Range Comments POC-GLUCOSE METER (BEAKER) 171 mg/dL 70-110 TESTED AT [address] (test fpuu=6813) [place] [address] BLOOD [id number] 09:44:00 Test Item Value Reference Range Comments CULTURE (BEAKER) (test METHICILLIN RESISTANT From Aerobic And eeza=3584) STAPHYLOCOCCUS AUREUS Anaerobic Bottles Methicillin resistant Staphylococcus aureus Clindamycin (test code=10) Erythromycin (test code=4) Linezolid (test code=40) Nitrofurantoin (test code=23) Oxacillin (test code=14) Rifampin (test code=43) Tetracycline (test code=2) Trimethoprim + Sulfamethoxazole (test code=47) Vancomycin (test code=13) CULTURE (BEAKER) (test From Aerobic Bottle zwsd=5287) Only Methicillin resistant Staphylococcus aureusSame as first isolate. GRAM STAIN RESULT From aerobic and (BEAKER) (test kggf=1152) anaerobic bottles: gram positive cocci in clusters CT, [id number] 09:28:00FINAL REPORT ABDOMINAL AND PELVIS CT DATED 11/28/2018 CLINICAL INFORMATION:Abdominal pain, unspecified TECHNIQUE: Axial images of the abdomen and pelvis were obtained from diaphragm to the pubic symphysis without GI or intravenous contrast. This exam was performed accordingto our departmental dose-optimization program, which includes automated exposure control, adjustmentof the mA and/or kV according to patient size and/or use of interactive reconstruction technique. COMMENT: Subsegmental atelectasis is seen in both lung bases. Liver and spleen are normal in size without focal abnormality. Gallbladder is distended. Multiple small gallstones are present. No biliary dilatation is noted. Pancreas and adrenals are unremarkable. Both kidneys are normal in size. No hydronephrosis , hydroureter, urolithiasis is seen. The small and large bowel are unremarkable. Appendix is normal in caliber. Uterus and ovaries are unremarkable. The urinary bladder is contracted. Hematoma is seen involving the right psoas musculature measuring approximately 3.7 x 3.7 x 7.3 cm. No mass, adenopathy or ascites is present. IMPRESSION: 1. Right psoas hematoma.2. Cholelithiasis without biliary dilatation.3. Bibasilar subsegmental atelectasis. The findings were relayed to patient's nurse Jordyn at to the time of the dictation.. Signed: Chitra Aguilera Verified Date/Time: 2017 09:28:06 Reading Location: [address] Body Reading Room PROTHROMBIN TIME/[id number] 09:18:00 Test Item Value Reference Range Comments PROTIME (BEAKER) (test wyio=682) 14.5 seconds 11.7-14.7 INR (BEAKER) (test rckr=195) 1.1 <=5.9 RECOMMENDED COUMADIN/WARFARIN INR THERAPY RANGESSTANDARD DOSE: 2.0 - 3.0 Includes: PROPHYLAXIS forvenous thrombosis, systemic embolization; TREATMENT for venous thrombosis and/or pulmonary embolus.HIGH RISK: Target INR is 2.5-3.5 for patients with mechanical heart valves.HEMOGLOBIN AND [id number] 09 :08:00 Test Item Value Reference Range Comments HEMOGLOBIN (BEAKER) (test edlz=035) 7.0 GM/DL 11.2-15.7 HEMATOCRIT (BEAKER) (test xeyj=178) 23.2 % 34.1-44.9 BASIC METABOLIC [id number] 06:55:00 Test Item Value Reference Range Comments SODIUM (BEAKER) (test 137 meq/L 136-145 bial=856) POTASSIUM (BEAKER) (test 4.4 meq/L 3.5-5.1 nivz=778) CHLORIDE (BEAKER) (test 101 meq/L 98-107 usab=413) CO2 (BEAKER) (test 23 meq/L 22-29 blrk=285) BLOOD UREA NITROGEN 56 mg/dL 7-21 (BEAKER) (test ouwg=287) CREATININE (BEAKER) (test 8.16 mg/dL 0.57-1.25 jnnd=125) GLUCOSE RANDOM (BEAKER) 131 mg/dL 70-105 (test zfsb=291) CALCIUM (BEAKER) (test 8.4 mg/dL 8.4-10.2 mjad=534) EGFR (BEAKER) (test 6 mL/min/1.73 sq m ESTIMATED GFR IS NOT xqrn=0962) ACCURATE CREATININE CLEARANCE IN PREDICTING GLOMERULAR FILTRATION RATE. ESTIMATED GFR IS NOT APPLICABLE FOR DIALYSIS PATIENTS. [id number] 06:40:00 Test Item Value Reference Range Comments PARTIAL THROMBOPLASTIN TIME (BEAKER) (test 91.0 seconds 22.5-36.0 mzxe=007) CBC W/PLT COUNT & AUTO [id number] 06:33:00 Test Item Value Reference Range Comments WHITE BLOOD CELL COUNT (BEAKER) (test upbd=739) 16.6 K/ L 3.5-10.5 RED BLOOD CELL COUNT (BEAKER) (test rhkz=259) 2.31 M/ L 3.93-5.22 HEMOGLOBIN (BEAKER) (test iotk=834) 6.4 GM/DL 11.2-15.7 HEMATOCRIT (BEAKER) (test vxea=273) 21.3 % 34.1-44.9 MEAN CORPUSCULAR VOLUME (BEAKER) (test axdh=721) 92.2 fL 79.4-94.8 MEAN CORPUSCULAR HEMOGLOBIN (BEAKER) (test 27.7 pg 25.6-32.2 fihu=949) MEAN CORPUSCULAR HEMOGLOBIN CONC (BEAKER) (test 30.0 GM/DL 32.2-35.5 rrek=368) RED CELL DISTRIBUTION WIDTH (BEAKER) (test 15.0 % 11.7-14.4 wzue=728) PLATELET COUNT (BEAKER) (test yhjx=018) 276 K/CU MM 150-450 MEAN PLATELET VOLUME (BEAKER) (test wpip=047) 10.4 fL 9.4-12.3 NUCLEATED RED BLOOD CELLS (BEAKER) (test 0 /100 WBC 0-0 zaqt=005) NEUTROPHILS RELATIVE PERCENT (BEAKER) (test 82 % ylhj=156) LYMPHOCYTES RELATIVE PERCENT (BEAKER) (test 7 % hgva=881) MONOCYTES RELATIVE PERCENT (BEAKER) (test 8 % ulfu=491) EOSINOPHILS RELATIVE PERCENT (BEAKER) (test 1 % ynqd=089) BASOPHILS RELATIVE PERCENT (BEAKER) (test 0 % couv=573) NEUTROPHILS ABSOLUTE COUNT (BEAKER) (test 13.67 K/ L 1.56-6.13 ikcd=041) LYMPHOCYTES ABSOLUTE COUNT (BEAKER) (test 1.14 K/ L 1.18-3.74 ckge=070) MONOCYTES ABSOLUTE COUNT (BEAKER) (test 1.38 K/ L 0.24-0.36 vlbq=966) EOSINOPHILS ABSOLUTE COUNT (BEAKER) (test 0.08 K/ L 0.04-0.36 crmq=568) BASOPHILS ABSOLUTE COUNT (BEAKER) (test 0.06 K/ L 0.01-0.08 iifk=426) IMMATURE GRANULOCYTES-RELATIVE PERCENT (BEAKER) 2 % 0-1 (test rdal=6177) POCT-GLUCOSE [id number] 21:47:00 Test Item Value Reference Range Comments POC-GLUCOSE METER (BEAKER) 173 mg/dL 70-110 TESTED AT [address] (test fsej=1582) [place] [address] [id number] 18:27:00 Test Item Value Reference Range Comments PARTIAL THROMBOPLASTIN TIME (BEAKER) (test 78.5 seconds 22.5-36.0 hdux=771) POCT-GLUCOSE [id number] 13:23:00 Test Item Value Reference Range Comments POC-GLUCOSE METER (BEAKER) 176 mg/dL 70-110 TESTED AT [address] (test mkld=8567) [place] [address] [id number] 11:24:00 Test Item Value Reference Range Comments PARTIAL THROMBOPLASTIN TIME (BEAKER) (test 83.7 seconds 22.5-36.0 ynmc=655) POCT-GLUCOSE [id number] 08:13:00 Test Item Value Reference Range Comments POC-GLUCOSE METER (BEAKER) 189 mg/dL 70-110 TESTED AT [address] (test gwtx=3029) [place] [address] BASIC METABOLIC [id number] 06:03:00 Test Item Value Reference Range Comments SODIUM (BEAKER) (test 135 meq/L 136-145 mlmk=180) POTASSIUM (BEAKER) (test 3.9 meq/L 3.5-5.1 bfor=807) CHLORIDE (BEAKER) (test 100 meq/L 98-107 rzks=606) CO2 (BEAKER) (test 23 meq/L 22-29 ermy=625) BLOOD UREA NITROGEN 41 mg/dL 7-21 (BEAKER) (test mqql=525) CREATININE (BEAKER) (test 6.33 mg/dL 0.57-1.25 ardp=460) GLUCOSE RANDOM (BEAKER) 154 mg/dL 70-105 (test pdwa=953) CALCIUM (BEAKER) (test 8.8 mg/dL 8.4-10.2 ibao=232) EGFR (BEAKER) (test 8 mL/min/1.73 sq m ESTIMATED GFR IS NOT hxia=4318) ACCURATE CREATININE CLEARANCE IN PREDICTING GLOMERULAR FILTRATION RATE. ESTIMATED GFR IS NOT APPLICABLE FOR DIALYSIS PATIENTS. VANCOMYCIN LEVEL, [id number] 05:41:00 Test Item Value Reference Range Comments VANCOMYCIN RANDOM (BEAKER) (test sdiv=837) 34.9 ug/mL Reference Range: No NormalsCBC W/PLT COUNT & AUTO [id number] 05: 36:00 Test Item Value Reference Range Comments WHITE BLOOD CELL COUNT (BEAKER) (test yoza=678) 15.0 K/ L 3.5-10.5 RED BLOOD CELL COUNT (BEAKER) (test hjro=625) 2.79 M/ L 3.93-5.22 HEMOGLOBIN (BEAKER) (test zclp=048) 7.6 GM/DL 11.2-15.7 HEMATOCRIT (BEAKER) (test hist=091) 25.8 % 34.1-44.9 MEAN CORPUSCULAR VOLUME (BEAKER) (test mrma=496) 92.5 fL 79.4-94.8 MEAN CORPUSCULAR HEMOGLOBIN (BEAKER) (test 27.2 pg 25.6-32.2 vilt=897) MEAN CORPUSCULAR HEMOGLOBIN CONC (BEAKER) (test 29.5 GM/DL 32.2-35.5 asvg=934) RED CELL DISTRIBUTION WIDTH (BEAKER) (test 14.6 % 11.7-14.4 upov=292) PLATELET COUNT (BEAKER) (test rlfb=965) 229 K/CU MM 150-450 MEAN PLATELET VOLUME (BEAKER) (test ncfs=318) 10.6 fL 9.4-12.3 NUCLEATED RED BLOOD CELLS (BEAKER) (test 0 /100 WBC 0-0 cvsr=189) NEUTROPHILS RELATIVE PERCENT (BEAKER) (test 85 % ypeg=681) LYMPHOCYTES RELATIVE PERCENT (BEAKER) (test 6 % lffs=687) MONOCYTES RELATIVE PERCENT (BEAKER) (test 7 % zesi=859) EOSINOPHILS RELATIVE PERCENT (BEAKER) (test 1 % thrl=686) BASOPHILS RELATIVE PERCENT (BEAKER) (test 0 % jpld=990) NEUTROPHILS ABSOLUTE COUNT (BEAKER) (test 12.75 K/ L 1.56-6.13 xeqm=894) LYMPHOCYTES ABSOLUTE COUNT (BEAKER) (test 0.92 K/ L 1.18-3.74 icbr=872) MONOCYTES ABSOLUTE COUNT (BEAKER) (test 1.00 K/ L 0.24-0.36 roni=995) EOSINOPHILS ABSOLUTE COUNT (BEAKER) (test 0.17 K/ L 0.04-0.36 vmwu=288) BASOPHILS ABSOLUTE COUNT (BEAKER) (test 0.05 K/ L 0.01-0.08 yjtb=543) IMMATURE GRANULOCYTES-RELATIVE PERCENT (BEAKER) 1 % 0-1 (test uqvw=8767) [id number] 05:31:00 Test Item Value Reference Range Comments PARTIAL THROMBOPLASTIN TIME (BEAKER) (test 69.7 seconds 22.5-36.0 bems=717) POCT-GLUCOSE [id number] 22:11:00 Test Item Value Reference Range Comments POC-GLUCOSE METER (BEAKER) 175 mg/dL 70-110 TESTED AT [address] (test twfl=9862) [place] [address] [id number] 20:48:00 Test Item Value Reference Range Comments PARTIAL THROMBOPLASTIN TIME (BEAKER) (test 61.5 seconds 22.5-36.0 btem=703) [id number] 19:00:00 Test Item Value Reference Range Comments PARTIAL THROMBOPLASTIN TIME (BEAKER) (test > seconds 22.5-36.0 acil=380) POCT-GLUCOSE [id number] 17:10:00 Test Item Value Reference Range Comments POC-GLUCOSE METER (BEAKER) 211 mg/dL 70-110 TESTED AT [address] (test csgn=4957) [place] [address] POCT-GLUCOSE [id number] 12:54:00 Test Item Value Reference Range Comments POC-GLUCOSE METER (BEAKER) 181 mg/dL 70-110 TESTED AT [address] (test ayer=1634) [place] [address] [id number] 11:03:00 Test Item Value Reference Range Comments PARTIAL THROMBOPLASTIN TIME (BEAKER) (test 83.7 seconds 22.5-36.0 rbvq=922) CATHETER TIP [id number] 09:36:00 Test Item Value Reference Range Comments CULTURE (BEAKER) (test tzbv=9620) No growth POCT-GLUCOSE [id number] 08:14:00 Test Item Value Reference Range Comments POC-GLUCOSE METER (BEAKER) 191 mg/dL 70-110 TESTED AT [address] (test yikr=8487) [place] [id number] 03:56:00 Test Item Value Reference Range Comments PARTIAL THROMBOPLASTIN TIME (BEAKER) (test 104.2 seconds 22.5-36.0 nzkb=397) POCT-GLUCOSE [id number] 03:23:00 Test Item Value Reference Range Comments POC-GLUCOSE METER (BEAKER) 152 mg/dL 70-110 TESTED AT [address] (test yuou=6456) [place] [id number] POCT-GLUCOSE [id number] 22:14:00 Test Item Value Reference Range Comments POC-GLUCOSE METER (BEAKER) 193 mg/dL 70-110 TESTED AT [address] (test ngoi=8102) [place] [address] [id number] 21:14:00 Test Item Value Reference Range Comments PARTIAL THROMBOPLASTIN TIME (BEAKER) (test 82.5 seconds 22.5-36.0 cuwx=831) POCT-GLUCOSE [id number] 19:35:00 Test Item Value Reference Range Comments POC-GLUCOSE METER (BEAKER) 156 mg/dL 70-110 TESTED AT [address] (test icjq=6335) [place] [address] VANCOMYCIN LEVEL, [id number] 18:48:00 Test Item Value Reference Range Comments VANCOMYCIN RANDOM (BEAKER) (test asvk=052) 12.6 ug/mL Reference Range: No NormalsPlease draw a random vancomycin level at end of dialysis tomorrow 11/25HEPATITIS B SURFACE [id number] 15:50:00 Test Item Value Reference Range Comments HEPATITIS B SURFACE ANTIGEN (2) (BEAKER) (test Nonreactive Nonreactive zmvf=3291) [id number] 15:27:00 Test Item Value Reference Range Comments PARTIAL THROMBOPLASTIN TIME (BEAKER) (test 64.9 seconds 22.5-36.0 kaao=332) BASIC METABOLIC [id number] 14:04:00 Test Item Value Reference Range Comments SODIUM (BEAKER) (test 134 meq/L 136-145 siza=641) POTASSIUM (BEAKER) (test 3.9 meq/L 3.5-5.1 nbnd=322) CHLORIDE (BEAKER) (test 100 meq/L 98-107 kwwi=738) CO2 (BEAKER) (test 22 meq/L 22-29 jnnp=294) BLOOD UREA NITROGEN 68 mg/dL 7-21 (BEAKER) (test ruic=199) CREATININE (BEAKER) (test 8.46 mg/dL 0.57-1.25 ormp=260) GLUCOSE RANDOM (BEAKER) 156 mg/dL 70-105 (test kxrz=390) CALCIUM (BEAKER) (test 8.7 mg/dL 8.4-10.2 vevq=715) EGFR (BEAKER) (test 6 mL/min/1.73 sq m ESTIMATED GFR IS NOT knnq=7592) ACCURATE CREATININE CLEARANCE IN PREDICTING GLOMERULAR FILTRATION RATE. ESTIMATED GFR IS NOT APPLICABLE FOR DIALYSIS PATIENTS. [id number] 13:33:00 Test Item Value Reference Range Comments PARTIAL THROMBOPLASTIN TIME (BEAKER) (test 67.9 seconds 22.5-36.0 zpiv=060) BLOOD [id number] 10:14:00 Test Item Value Reference Range Comments CULTURE (BEAKER) From Aerobic And Anaerobic (test oqmu=0186) Bottles Staphylococcus aureusRefer to previous culture ofMethicillin resistant Staphylococcus aureus GRAM STAIN RESULT From aerobic and (BEAKER) (test anaerobic bottles: hcko=2609) gram positive cocci in clusters BLOOD [id number] 10:12:00 Test Item Value Reference Range Comments CULTURE (BEAKER) (test METHICILLIN RESISTANT From Aerobic And cojf=5433) STAPHYLOCOCCUS AUREUS Anaerobic Bottles Methicillin resistant Staphylococcus aureus Clindamycin (test code=10) Erythromycin (test code=4) Linezolid (test code=40) Nitrofurantoin (test code=23) Oxacillin (test code=14) Rifampin (test code=43) Tetracycline (test code=2) Trimethoprim + Sulfamethoxazole (test code=47) Vancomycin (test code=13) GRAM STAIN RESULT From aerobic and (BEAKER) (test jroe=8651) anaerobic bottles: gram positive cocci in clusters POCT-GLUCOSE [id number] 08:05:00 Test Item Value Reference Range Comments POC-GLUCOSE METER (BEAKER) 182 mg/dL 70-110 TESTED AT [facility] [address] [facility] (test bvtn=1664) [facility] [address] [id number] 06:49:00 Test Item Value Reference Range Comments PARTIAL THROMBOPLASTIN TIME (BEAKER) (test 83.0 seconds 22.5-36.0 fcbv=282) CBC W/PLT COUNT & AUTO [id number] 05:45:00 Test Item Value Reference Range Comments WHITE BLOOD CELL COUNT (BEAKER) (test vjat=355) 8.1 K/ L 3.5-10.5 RED BLOOD CELL COUNT (BEAKER) (test fhdv=967) 2.88 M/ L 3.93-5.22 HEMOGLOBIN (BEAKER) (test nfhg=237) 8.1 GM/DL 11.2-15.7 HEMATOCRIT (BEAKER) (test cnrh=410) 26.6 % 34.1-44.9 MEAN CORPUSCULAR VOLUME (BEAKER) (test xnvt=377) 92.4 fL 79.4-94.8 MEAN CORPUSCULAR HEMOGLOBIN (BEAKER) (test 28.1 pg 25.6-32.2 lvrf=647) MEAN CORPUSCULAR HEMOGLOBIN CONC (BEAKER) (test 30.5 GM/DL 32.2-35.5 wvev=337) RED CELL DISTRIBUTION WIDTH (BEAKER) (test 14.9 % 11.7-14.4 taeo=080) PLATELET COUNT (BEAKER) (test xpgn=613) 117 K/CU MM 150-450 MEAN PLATELET VOLUME (BEAKER) (test lhhe=417) 10.5 fL 9.4-12.3 NUCLEATED RED BLOOD CELLS (BEAKER) (test 0 /100 WBC 0-0 hwtx=971) NEUTROPHILS RELATIVE PERCENT (BEAKER) (test 72 % yjdl=683) LYMPHOCYTES RELATIVE PERCENT (BEAKER) (test 11 % ksxb=627) MONOCYTES RELATIVE PERCENT (BEAKER) (test 10 % suvq=472) EOSINOPHILS RELATIVE PERCENT (BEAKER) (test 5 % cajt=263) BASOPHILS RELATIVE PERCENT (BEAKER) (test 1 % nicy=577) NEUTROPHILS ABSOLUTE COUNT (BEAKER) (test 5.83 K/ L 1.56-6.13 uxtq=462) LYMPHOCYTES ABSOLUTE COUNT (BEAKER) (test 0.92 K/ L 1.18-3.74 kpwa=394) MONOCYTES ABSOLUTE COUNT (BEAKER) (test 0.79 K/ L 0.24-0.36 favp=665) EOSINOPHILS ABSOLUTE COUNT (BEAKER) (test 0.41 K/ L 0.04-0.36 flei=227) BASOPHILS ABSOLUTE COUNT (BEAKER) (test 0.05 K/ L 0.01-0.08 ihci=113) IMMATURE GRANULOCYTES-RELATIVE PERCENT (BEAKER) 1 % 0-1 (test aouf=8073) BASIC METABOLIC [id number] 00:23:00 Test Item Value Reference Range Comments SODIUM (BEAKER) (test 134 meq/L 136-145 mcwk=833) POTASSIUM (BEAKER) (test 3.8 meq/L 3.5-5.1 qjuz=978) CHLORIDE (BEAKER) (test 100 meq/L 98-107 gitt=862) CO2 (BEAKER) (test 22 meq/L 22-29 jfwd=356) BLOOD UREA NITROGEN 62 mg/dL 7-21 (BEAKER) (test jjod=681) CREATININE (BEAKER) (test 7.39 mg/dL 0.57-1.25 ctca=286) GLUCOSE RANDOM (BEAKER) 155 mg/dL 70-105 (test ntvi=284) CALCIUM (BEAKER) (test 8.6 mg/dL 8.4-10.2 fher=862) EGFR (BEAKER) (test 7 mL/min/1.73 sq m ESTIMATED GFR IS NOT mpnm=9304) ACCURATE CREATININE CLEARANCE IN PREDICTING GLOMERULAR FILTRATION RATE. ESTIMATED GFR IS NOT APPLICABLE FOR DIALYSIS PATIENTS. [id number] 00:15:00 Test Item Value Reference Range Comments PHOSPHORUS (BEAKER) (test qvya=960) 3.5 mg/dL 2.3-4.7 [id number] 00:15:00 Test Item Value Reference Range Comments MAGNESIUM (BEAKER) (test hlol=607) 2.3 mg/dL 1.6-2.6 [id number] 00:03:00 Test Item Value Reference Range Comments PARTIAL THROMBOPLASTIN TIME (BEAKER) (test 105.0 seconds 22.5-36.0 wjrc=144) POCT-GLUCOSE [id number] 22:14:00 Test Item Value Reference Range Comments POC-GLUCOSE METER (BEAKER) 200 mg/dL 70-110 TESTED AT [facility] [address] (test nlza=9493) [facility] [address] [id number] 17:22:00 Test Item Value Reference Range Comments PROTIME (BEAKER) (test jrlp=586) 13.7 seconds 11.7-14.7 INR (BEAKER) (test xqxf=674) 1.0 <=5.9 PARTIAL THROMBOPLASTIN TIME (BEAKER) (test 64.3 seconds 22.5-36.0 ssgu=752) RECOMMENDED COUMADIN/WARFARIN INR THERAPY RANGESSTANDARD DOSE: 2.0 - 3.0 Includes: PROPHYLAXIS forvenous thrombosis, systemic embolization; TREATMENT for venous thrombosis and/or pulmonary embolus.HIGH RISK: Target INR is 2.5-3.5 for patients with mechanical heart valves.Prior to initiating heparinPrior to initiating [id number] 17:22:00 Test Item Value Reference Range Comments PARTIAL THROMBOPLASTIN TIME (BEAKER) (test 64.3 seconds 22.5-36.0 jbog=866) POCT-GLUCOSE [id number] 17:19:00 Test Item Value Reference Range Comments POC-GLUCOSE METER (BEAKER) 169 mg/dL 70-110 TESTED AT [address] (test cxih=0250) [place] [address] POCT-GLUCOSE [id number] 12:30:00 Test Item Value Reference Range Comments POC-GLUCOSE METER (BEAKER) 235 mg/dL 70-110 TESTED AT [address] (test engx=4554) [place] [address] [id number] 10:05:00 Test Item Value Reference Range Comments PARTIAL THROMBOPLASTIN TIME (BEAKER) (test 38.6 seconds 22.5-36.0 anvz=433) Prior to initiating heparinPOCT-GLUCOSE [id number] 07:40:00 Test Item Value Reference Range Comments POC-GLUCOSE METER (BEAKER) 221 mg/dL 70-110 TESTED AT [address] (test duvo=6125) [place] [address] [id number] 05:58:00 Test Item Value Reference Range Comments MAGNESIUM (BEAKER) (test oaic=566) 2.1 mg/dL 1.6-2.6 [id number] 05:58:00 Test Item Value Reference Range Comments PHOSPHORUS (BEAKER) (test sypr=415) 3.5 mg/dL 2.3-4.7 TROPONIN [id number] 05:15:00 Test Item Value Reference Range Comments TROPONIN I (BEAKER) (test chhd=198) 0.31 ng/mL 0.00-0.03 Troponin I (TnI) levels must be interpreted in the context of the presenting symptoms and the clinical findings. Elevated TnI levels indicate myocardial damage, but are not specific for ischemic heart disease. Elevated TnI levels are seen in patients with other cardiac conditions (including myocarditis and congestive heart failure), and slight TnI elevations occur in patients with other conditions, including sepsis, renal failure, acidosis, acute neurological disease, and persistent tachyarrhythmia.LACTIC ACID, VENOUS, WHOLE [id number] 05:13:00 Test Item Value Reference Range Comments LACTATE BLOOD VENOUS (2) (BEAKER) (test 0.8 mmol/L 0.5-2.2 ncwh=8974) BASIC METABOLIC [id number] 05:13:00 Test Item Value Reference Range Comments SODIUM (BEAKER) (test 136 meq/L 136-145 fvpg=641) POTASSIUM (BEAKER) (test 3.4 meq/L 3.5-5.1 yzyq=180) CHLORIDE (BEAKER) (test 99 meq/L 98-107 xhfg=931) CO2 (BEAKER) (test 25 meq/L 22-29 ffhx=438) BLOOD UREA NITROGEN 43 mg/dL 7-21 (BEAKER) (test iprr=589) CREATININE (BEAKER) (test 6.21 mg/dL 0.57-1.25 hosv=435) GLUCOSE RANDOM (BEAKER) 175 mg/dL 70-105 (test uulc=055) CALCIUM (BEAKER) (test 8.6 mg/dL 8.4-10.2 odca=241) EGFR (BEAKER) (test 8 mL/min/1.73 sq m ESTIMATED GFR IS NOT nthl=7292) ACCURATE CREATININE CLEARANCE IN PREDICTING GLOMERULAR FILTRATION RATE. ESTIMATED GFR IS NOT APPLICABLE FOR DIALYSIS PATIENTS. B-TYPE NATRIURETIC FACTOR (BNP)2018-11-24 05:12:00 Test Item Value Reference Range Comments B-TYPE NATRIURETIC PEPTIDE (BEAKER) (test 190 pg/mL 0-100 amth=484) CBC W/PLT COUNT & AUTO [id number] 05:12:00 Test Item Value Reference Range Comments WHITE BLOOD CELL COUNT (BEAKER) (test alem=225) 12.0 K/ L 3.5-10.5 RED BLOOD CELL COUNT (BEAKER) (test utwh=630) 2.97 M/ L 3.93-5.22 HEMOGLOBIN (BEAKER) (test ervw=145) 8.1 GM/DL 11.2-15.7 HEMATOCRIT (BEAKER) (test eavm=494) 27.6 % 34.1-44.9 MEAN CORPUSCULAR VOLUME (BEAKER) (test xikc=050) 92.9 fL 79.4-94.8 MEAN CORPUSCULAR HEMOGLOBIN (BEAKER) (test 27.3 pg 25.6-32.2 bbgh=947) MEAN CORPUSCULAR HEMOGLOBIN CONC (BEAKER) (test 29.3 GM/DL 32.2-35.5 eeep=799) RED CELL DISTRIBUTION WIDTH (BEAKER) (test 15.0 % 11.7-14.4 brll=064) PLATELET COUNT (BEAKER) (test nlvx=795) 115 K/CU MM 150-450 MEAN PLATELET VOLUME (BEAKER) (test zjpb=668) 10.9 fL 9.4-12.3 NUCLEATED RED BLOOD CELLS (BEAKER) (test 0 /100 WBC 0-0 bycv=630) NEUTROPHILS RELATIVE PERCENT (BEAKER) (test 81 % gznb=478) LYMPHOCYTES RELATIVE PERCENT (BEAKER) (test 6 % irmj=396) MONOCYTES RELATIVE PERCENT (BEAKER) (test 10 % uhzy=004) EOSINOPHILS RELATIVE PERCENT (BEAKER) (test 3 % qtwu=966) BASOPHILS RELATIVE PERCENT (BEAKER) (test 1 % xwhx=181) NEUTROPHILS ABSOLUTE COUNT (BEAKER) (test 9.67 K/ L 1.56-6.13 uqiq=190) LYMPHOCYTES ABSOLUTE COUNT (BEAKER) (test 0.66 K/ L 1.18-3.74 wzjs=991) MONOCYTES ABSOLUTE COUNT (BEAKER) (test 1.18 K/ L 0.24-0.36 ltlf=276) EOSINOPHILS ABSOLUTE COUNT (BEAKER) (test 0.32 K/ L 0.04-0.36 rwtm=346) BASOPHILS ABSOLUTE COUNT (BEAKER) (test 0.06 K/ L 0.01-0.08 uthu=980) IMMATURE GRANULOCYTES-RELATIVE PERCENT (BEAKER) 1 % 0-1 (test slwu=9321) POCT-GLUCOSE [id number] 22:03:00 Test Item Value Reference Range Comments POC-GLUCOSE METER (BEAKER) 187 mg/dL 70-110 TESTED AT [facility] [address] (test pyvv=7324) [facility] [address] POCT-GLUCOSE [id number] 18:08:00 Test Item Value Reference Range Comments POC-GLUCOSE METER (BEAKER) 251 mg/dL 70-110 TESTED AT [facility] [address] (test nuhu=1697) [facility] [address] ANG, CENTRAL VENOUS CATH PLCMT (JUG/FEM) > 5 Y.O. WITH [id number] 16:53 :00Reason for exam:->discussed, guidewire exchange of R tunneled HD cath and L TLC CVC with same dueto bacteremiaFINAL REPORT Temporary Dialysis Catheter Placement (non tunneled, centrallyinserted, without pump or subcutaneous port): Age: 63, Diagnosis: Requiring IV access for dialysis and pressors, Indication: SepsisModality: Sonography and fluoroscopyConscious Sedation no sedation Anesthesia: Two percent Lidocaine injected subcutaneously at the insertion site.Approach: Left internaljugular vein Fluoroscopy time in minutes: 0.6 minutes. 17 imagesFor maximum sterile barrier protection a mask, cap, [...] temporary dialysis catheter terminating in the right atrium.Impression: Successful, uncomplicated sonographic and fluoroscopic placement of [...] right femoral tunneled catheter. Signed: Ranjana Connor Verified Date/Time: 11/23/2018 16:53:15 Reading Location: [address] Body Reading Room BLOOD CULTURE IDENTIFICATION [id number] 13:44:00 Test Item Value Reference Range Comments LISTERIA MONOCYTOGENES (test Not detected Not detected ndtp=5310118) STAPHYLOCOCCUS (test Detected Not detected lzoq=4824746) STAPHYLOCOCCUS AUREUS (test Detected Not detected First line therapy: fbos=1757927) VancomycinID consultation strongly encouraged. Staphylococcus aureus DETECTED MecA DETECTEDReference Range: Not Detected STREPTOCOCCUS (test Not detected Not detected oygn=2413058) STREPTOCOCCUS AGALACTIAE Not detected Not detected (GROUP B) (test ojjz=2201692) STREPTOCOCCUS PNEUMONIAE Not detected Not detected (test pjzh=0098848) STREPTOCOCCUS PYOGENES (GROUP Not detected Not detected A) (test hnsi=9242499) ACINETOBACTER BAUMANNII (test Not detected Not detected xdoe=3391048) HAEMOPHILUS INFLUENZAE (test Not detected Not detected zroj=5780918) NEISSERIA MENINGITIDIS (test Not detected Not detected gaja=7898064) ENTEROBACTERIACEAE (test Not detected Not detected slsx=8067943) ENTEROBACTER CLOACOE COMPLEX Not detected Not detected (test xtdy=5380437) KLEBSIELLA OXYTOCA (test Not detected Not detected mscr=0781565) KLEBSIELLA PNEUMONIAE (test Not detected Not detected tgke=8765) PROTEUS (test ocjm=8910848) Not detected Not detected SERRATIA MARCESCENS (test Not detected Not detected xqro=5240958) SHRUTHI ALBICANS (test Not detected Not detected ovsb=8924053) SHRUTHI GLABRATA (test Not detected Not detected fglq=6881967) SHRUTHI KRUSEI (test Not detected Not detected mejk=6259600) SHRUTHI PARAPSILOSIS (test Not detected Not detected iexa=2386490) SHRUTHI TROPICALIS (test Not detected Not detected wqya=7466198) ESCHERICHIA COLI (test Not detected Not detected dggz=2313857) METHICILLIN-RESISTANCE GENE Detected Not detected (test yisg=0027585) VANCOMYCIN-RESISTANCE GENE Not detected (test csvb=3744310) CARBAPENEM-RESISTANCE GENE Not detected (test ujit=9994529) ENTEROCOCCUS-BEAKER (test Not detected Not detected tkpg=1589088) PSEUDOMONAS AERUGINOSA-BEAKER Not detected Not detected (test khfk=0057936) Other bacteria and resistance markers not targeted by this PCR panel cannot be excluded; therefore clinical correlation and follow up of serology, culture results, and other molecular studies is required. The results are not intended to be used as the sole means for clinical diagnosis or patient management decisions. This sample was tested at the [facility] using the [employer] Blood Culture ID Panel. It is FDA cleared and has been verified and approved by the [facility] for clinical use. This laboratory is CLIA-certified and College ofAmerican Pathologists (CAP)-accredited to perform high complexity testing.VANCOMYCIN LEVEL, [id number] 13:20:00 Test Item Value Reference Range Comments VANCOMYCIN RANDOM ([facility]) (test nemd=747) 22.9 ug/mL Reference Range: No NormalsPOCT-GLUCOSE [id number] 13:00:00 Test Item Value Reference Range Comments POC-GLUCOSE METER ([facility]) 249 mg/dL 70-110 TESTED AT [facility] [address] (test ervs=2205) [facility] [address] TROPONIN [id number] 10:54:00 Test Item Value Reference Range Comments TROPONIN I (BEAKER) (test raru=192) 0.30 ng/mL 0.00-0.03 Troponin I (TnI) levels must be interpreted in the context of the presenting symptoms and the clinical findings. Elevated TnI levels indicate myocardial damage, but are not specific for ischemic heart disease. Elevated TnI levels are seen in patients with other cardiac conditions (including myocarditis and congestive heart failure), and slight TnI elevations occur in patients with other conditions, including sepsis, renal failure, acidosis, acute neurological disease, and persistent tachyarrhythmia.[id number] 10:45:00 Test Item Value Reference Range Comments LIPASE (BEAKER) (test bhsh=882) 12 U/L 8-78 RAD, ABDOMEN/KUB, 1 VIEW [id number] 08:42:00Reason for exam:->abd painFINAL REPORT RAD, ABDOMEN/KUB, 1 VIEW AP CLINICAL INDICATION: abd pain COMPARISON: None TECHNIQUE: Two frontal radiographs of the abdomen. IMPRESSION:The bowel gas pattern is nonspecific, but nonobstructive. Right femoral central venous catheter terminates over the right atrium. A left femoral central arterial line terminates at the L5-S1 level. The regional skeleton is intact. Signed: JR Cuenca Robert MDReport Verified Date/Time: 11/23/2018 08:42:11 Reading Location: [facility] Radiology Reading Room COMPREHENSIVE METABOLIC [id number] 07:44:00 Test Item Value Reference Range Comments TOTAL PROTEIN (BEAKER) 6.0 gm/dL 6.0-8.3 (test sdtb=807) ALBUMIN (BEAKER) (test 3.0 g/dL 3.5-5.0 vefr=1009) ALKALINE PHOSPHATASE 248 U/L 40-150 (BEAKER) (test snrl=204) BILIRUBIN TOTAL (BEAKER) 0.8 mg/dL 0.2-1.2 (test hsee=216) SODIUM (BEAKER) (test 137 meq/L 136-145 mrmy=301) POTASSIUM (BEAKER) (test 3.6 meq/L 3.5-5.1 yfhp=885) CHLORIDE (BEAKER) (test 101 meq/L 98-107 fawh=753) CO2 (BEAKER) (test 28 meq/L 22-29 hqha=243) BLOOD UREA NITROGEN 26 mg/dL 7-21 (BEAKER) (test iwnt=966) CREATININE (BEAKER) (test 4.09 mg/dL 0.57-1.25 hlny=763) GLUCOSE RANDOM (BEAKER) 201 mg/dL 70-105 (test nwyp=760) CALCIUM (BEAKER) (test 9.3 mg/dL 8.4-10.2 fuak=862) AST (SGOT) (BEAKER) (test 39 U/L 5-34 hgnd=527) ALT (SGPT) (BEAKER) (test 18 U/L 6-55 bzuu=227) EGFR (BEAKER) (test 13 mL/min/1.73 sq m ESTIMATED GFR IS NOT tepl=7255) ACCURATE CREATININE CLEARANCE IN PREDICTING GLOMERULAR FILTRATION RATE. ESTIMATED GFR IS NOT APPLICABLE FOR DIALYSIS PATIENTS. BASIC METABOLIC [id number] 07:44:00 Test Item Value Reference Range Comments SODIUM (BEAKER) (test 137 meq/L 136-145 oges=575) POTASSIUM (BEAKER) (test 3.6 meq/L 3.5-5.1 botd=843) CHLORIDE (BEAKER) (test 101 meq/L 98-107 lxlr=256) CO2 (BEAKER) (test 28 meq/L 22-29 zovy=876) BLOOD UREA NITROGEN 26 mg/dL 7-21 (BEAKER) (test jrwq=738) CREATININE (BEAKER) (test 4.09 mg/dL 0.57-1.25 fbsn=927) GLUCOSE RANDOM (BEAKER) 201 mg/dL 70-105 (test tncb=657) CALCIUM (BEAKER) (test 9.3 mg/dL 8.4-10.2 vbqo=170) EGFR (BEAKER) (test 13 mL/min/1.73 sq m ESTIMATED GFR IS NOT qcca=4921) ACCURATE CREATININE CLEARANCE IN PREDICTING GLOMERULAR FILTRATION RATE. ESTIMATED GFR IS NOT APPLICABLE FOR DIALYSIS PATIENTS. [id number] 07:39:00 Test Item Value Reference Range Comments PHOSPHORUS (BEAKER) (test jfdt=195) 3.0 mg/dL 2.3-4.7 [id number] 07:39:00 Test Item Value Reference Range Comments MAGNESIUM (BEAKER) (test tngh=113) 1.9 mg/dL 1.6-2.6 LACTIC ACID, VENOUS, WHOLE [id number] 07:34:00 Test Item Value Reference Range Comments LACTATE BLOOD VENOUS (2) (BEAKER) (test 0.8 mmol/L 0.5-2.2 cyxr=4579) CALCIUM, [id number] 07:28:00 Test Item Value Reference Range Comments CALCIUM IONIZED (BEAKER) (test chvj=031) 1.13 mmol/L 1.12-1.27 PH, BLOOD (BEAKER) (test vwel=9275) 7.36 CBC W/PLT COUNT & AUTO [id number] 07:28:00 Test Item Value Reference Range Comments WHITE BLOOD CELL COUNT (BEAKER) (test xbze=754) 19.0 K/ L 3.5-10.5 RED BLOOD CELL COUNT (BEAKER) (test zbzj=130) 2.89 M/ L 3.93-5.22 HEMOGLOBIN (BEAKER) (test mpds=340) 8.3 GM/DL 11.2-15.7 HEMATOCRIT (BEAKER) (test kagg=653) 26.8 % 34.1-44.9 MEAN CORPUSCULAR VOLUME (BEAKER) (test twpo=285) 92.7 fL 79.4-94.8 MEAN CORPUSCULAR HEMOGLOBIN (BEAKER) (test 28.7 pg 25.6-32.2 elbl=035) MEAN CORPUSCULAR HEMOGLOBIN CONC (BEAKER) (test 31.0 GM/DL 32.2-35.5 jxax=301) RED CELL DISTRIBUTION WIDTH (BEAKER) (test 15.1 % 11.7-14.4 fkgy=692) PLATELET COUNT (BEAKER) (test zanb=850) 101 K/CU MM 150-450 MEAN PLATELET VOLUME (BEAKER) (test zedy=196) 10.7 fL 9.4-12.3 NUCLEATED RED BLOOD CELLS (BEAKER) (test 0 /100 WBC 0-0 ckrc=363) NEUTROPHILS RELATIVE PERCENT (BEAKER) (test 88 % twcw=554) LYMPHOCYTES RELATIVE PERCENT (BEAKER) (test 3 % nqxn=071) MONOCYTES RELATIVE PERCENT (BEAKER) (test 6 % ghtp=938) EOSINOPHILS RELATIVE PERCENT (BEAKER) (test 2 % gqqq=431) BASOPHILS RELATIVE PERCENT (BEAKER) (test 0 % doqc=320) NEUTROPHILS ABSOLUTE COUNT (BEAKER) (test 16.67 K/ L 1.56-6.13 jnwx=157) LYMPHOCYTES ABSOLUTE COUNT (BEAKER) (test 0.59 K/ L 1.18-3.74 kezn=745) MONOCYTES ABSOLUTE COUNT (BEAKER) (test 1.07 K/ L 0.24-0.36 szbb=759) EOSINOPHILS ABSOLUTE COUNT (BEAKER) (test 0.36 K/ L 0.04-0.36 oeiy=612) BASOPHILS ABSOLUTE COUNT (BEAKER) (test 0.07 K/ L 0.01-0.08 zhnw=700) IMMATURE GRANULOCYTES-RELATIVE PERCENT (BEAKER) 1 % 0-1 (test uxep=9173) BASIC METABOLIC [id number] 02:11:00 Test Item Value Reference Range Comments SODIUM (BEAKER) (test 136 meq/L 136-145 mqkd=859) POTASSIUM (BEAKER) (test 3.3 meq/L 3.5-5.1 dlvc=118) CHLORIDE (BEAKER) (test 101 meq/L 98-107 pssg=433) CO2 (BEAKER) (test 25 meq/L 22-29 azqx=020) BLOOD UREA NITROGEN 34 mg/dL 7-21 (BEAKER) (test pvyq=061) CREATININE (BEAKER) (test 5.32 mg/dL 0.57-1.25 kejq=437) GLUCOSE RANDOM (BEAKER) 164 mg/dL 70-105 (test ztzq=241) CALCIUM (BEAKER) (test 9.4 mg/dL 8.4-10.2 dpfp=674) EGFR (BEAKER) (test 10 mL/min/1.73 sq m ESTIMATED GFR IS NOT coem=9991) ACCURATE CREATININE CLEARANCE IN PREDICTING GLOMERULAR FILTRATION RATE. ESTIMATED GFR IS NOT APPLICABLE FOR DIALYSIS PATIENTS. [id number] 02:07:00 Test Item Value Reference Range Comments PHOSPHORUS (BEAKER) (test kkvr=567) 2.7 mg/dL 2.3-4.7 [id number] 02:07:00 Test Item Value Reference Range Comments MAGNESIUM (BEAKER) (test wmon=141) 1.8 mg/dL 1.6-2.6 CALCIUM, [id number] 01:51:00 Test Item Value Reference Range Comments CALCIUM IONIZED (BEAKER) (test nskl=139) 1.18 mmol/L 1.12-1.27 PH, BLOOD (BEAKER) (test fecm=4491) 7.35 POCT-GLUCOSE [id number] 00:30:00 Test Item Value Reference Range Comments POC-GLUCOSE METER (BEAKER) 248 mg/dL 70-110 TESTED AT [facility] [address] (test txgi=7362) [facility] [address] TROPONIN [id number] 23:27:00 Test Item Value Reference Range Comments TROPONIN I (BEAKER) (test odjj=673) 0.60 ng/mL 0.00-0.03 Troponin I (TnI) levels must be interpreted in the context of the presenting symptoms and the clinical findings. Elevated TnI levels indicate myocardial damage, but are not specific for ischemic heart disease. Elevated TnI levels are seen in patients with other cardiac conditions (including myocarditis and congestive heart failure), and slight TnI elevations occur in patients with other conditions, including sepsis, renal failure, acidosis, acute neurological disease, and persistent tachyarrhythmia.LACTIC ACID, VENOUS, WHOLE [id number] 23:13:00 Test Item Value Reference Range Comments LACTATE BLOOD VENOUS (2) (BEAKER) (test 1.3 mmol/L 0.5-2.2 oesa=0063) U/S, ABDOMINAL, [id number] 20:30:00Reason for exam:->Septic Shock, ESRD, Dysuria, Abdominal PainFINAL REPORT INDICATION: Septic Shock, ESRD, Dysuria, Abdominal Pain COMPARISON: None TECHNIQUE: Real- time transabdominal vargas scale and color Doppler ultrasound of the abdominal right upper quadrant. FINDINGS:Liver: Size: 17.8cm. Echogenicity: Normal. Masses/lesions: None. Surface Nodularity: None. Intrahepatic bile ducts: Normal. Common bile duct:0.3cm. MPV: 0.8cm. Gallbladder: Stones: Few punctate nonshadowing gallstones. Sludge: Minimal. Wall thickness: 0.8 cm. The gallbladder is nondistended. Pericholecystic fluid: None. Sonographic Tate's sign: Absent. Pancreas: Head and uncinate process: Not well evaluated due to bowel gas. Body and tail: Not well evaluated due to bowel gas. Right kidney: Size: 10.1 x 5.1 x 5.2 cm. Parenchyma: Increased. No cysts. No stones. Hydronephrosis : None. Ascites: None. Regional Vasculature: The visible abdominal aorta, IVC and hepatic veins are patent. Additional Findings: None. IMPRESSION: Gallbladder is nondistended with normal common bile duct, no pericholecystic fluid and negative sonographic Tate's. Findings suggestive of chronic kidney disease Signed: Higinio Palmereport Verified Date/Time: 11/22/2018 20:30: 54 Reading Location: [facility] [address] Neuro Reading Room LACTIC ACID, VENOUS, WHOLE [id number] 18:54:00 Test Item Value Reference Range Comments LACTATE BLOOD VENOUS (2) (BEAKER) (test 1.5 mmol/L 0.5-2.2 qath=9512) [id number] 17:26:00 Test Item Value Reference Range Comments PROCALCITONIN (BEAKER) (test bbdx=7383) > ng/mL <0.05 SEPSIS RISK (ng/mL)Low: 0.05-0.50Intermediate: 0.51-2.00High: & gt;=2.01TSH/FREE T4 IF [id number] 17:10:00 Test Item Value Reference Range Comments THYROID STIMULATING HORMONE (BEAKER) (test 2.43 uIU/mL 0.35-4.94 sxqn=475) RAD, CHEST, 1 VIEW, NON [id number] 17:04:00Reason for exam:->Respiratory Insufficiency, Septic ShockShould this be performed at the bedside?-> YesFINAL REPORT EXAMINATION: AP PORTABLE CHEST RADIOGRAPH CLINICAL INDICATION: Respiratory insufficiency, septic shock FINDINGS : No comparison studies are available. The tip [...] process cannot be excluded. Signed: Coy Medel MDReport Verified Date/Time: 11/22/2018 17:04 :54 Reading Location: [address] Reading Room (CELLAVISION MANUAL DIFF) 2018-11-22 16:57:00 Test Item Value Reference Range Comments NEUTROPHILS - REL (CELLAVISION)(BEAKER) (test 85 % hmfi=9928) LYMPHOCYTES - REL (CELLAVISION)(BEAKER) (test 5 % anxy=5421) MONOCYTES - REL (CELLAVISION)(BEAKER) (test 4 % iknf=6587) BANDS - REL (CELLAVISION)(BEAKER) (test 6 % 0-10 spnh=8901) NEUTROPHILS - ABS (CELLAVISION)(BEAKER) (test 22.87 K/ul 1.56-6.13 liws=2643) LYMPHOCYTES - ABS (CELLAVISION)(BEAKER) (test 1.35 K/ul 1.18-3.74 wifh=3488) MONOCYTES - ABS (CELLAVISION)(BEAKER) (test 1.08 K/uL 0.24-0.36 vtaw=4903) BANDS - ABS (CELLAVISION)(BEAKER) (test 1.61 K/uL 0.00-0.80 lvbe=2940) TOTAL COUNTED (BEAKER) (test gqvj=7824) 100 WBC MORPHOLOGY (BEAKER) (test xgna=744) Normal PLT MORPHOLOGY (BEAKER) (test odij=847) Normal POLYCHROMATOPHILLIC RBCS(BEAKER) (test iewe=282) 3+ many ANISOCYTOSIS (BEAKER) (test kqed=013) 1+ few MICROCYTES (BEAKER) (test antk=177) 1+ few POIKILOCYTES (BEAKER) (test ybqf=882) 2+ moderate TEAR DROP CELLS (BEAKER) (test ykwj=489) 1+ few JOVANNI CELLS (BEAKER) (test ltae=639) 1+ few ARTIFACT (CELLAVISION)(BEAKER) (test wzpm=0437) Present HELMET CELLS (CELLAVISION)(BEAKER) (test 1+ few gnpc=7205) PLATELET CONCENTRATION (CELLAVISION)(BEAKER) Adequate (test fgrx=6053) Received comment: User comments: Slide comments:TROPONIN [id number] 16:52:00 Test Item Value Reference Range Comments TROPONIN I (BEAKER) (test bonn=196) 0.85 ng/mL 0.00-0.03 Troponin I (TnI) levels must be interpreted in the context of the presenting symptoms and the clinical findings. Elevated TnI levels indicate myocardial damage, but are not specific for ischemic heart disease. Elevated TnI levels are seen in patients with other cardiac conditions (including myocarditis and congestive heart failure), and slight TnI elevations occur in patients with other conditions, including sepsis, renal failure, acidosis, acute neurological disease, and persistent tachyarrhythmia.PROTHROMBIN TIME/[id number] 16:52:00 Test Item Value Reference Range Comments PROTIME (BEAKER) (test xlyv=670) 16.1 seconds 11.7-14.7 INR (BEAKER) (test dbcv=604) 1.3 <=5.9 RECOMMENDED COUMADIN/WARFARIN INR THERAPY RANGESSTANDARD DOSE: 2.0 - 3.0 Includes: PROPHYLAXIS forvenous thrombosis, systemic embolization; TREATMENT for venous thrombosis and/or pulmonary embolus.HIGH RISK: Target INR is 2.5-3.5 for patients with mechanical heart valves.B-TYPE NATRIURETIC FACTOR (BNP)2018-10 16:48:00 Test Item Value Reference Range Comments B-TYPE NATRIURETIC PEPTIDE (BEAKER) (test 353 pg/mL 0-100 gltk=155) BASIC METABOLIC [id number] 16:48:00 Test Item Value Reference Range Comments SODIUM (BEAKER) (test 136 meq/L 136-145 yzko=567) POTASSIUM (BEAKER) (test 2.9 meq/L 3.5-5.1 bjgl=845) CHLORIDE (BEAKER) (test 98 meq/L 98-107 rglb=819) CO2 (BEAKER) (test 24 meq/L 22-29 lbzl=349) BLOOD UREA NITROGEN 47 mg/dL 7-21 (BEAKER) (test njra=320) CREATININE (BEAKER) (test 8.07 mg/dL 0.57-1.25 xvig=539) GLUCOSE RANDOM (BEAKER) 207 mg/dL 70-105 (test jxnz=400) CALCIUM (BEAKER) (test 9.5 mg/dL 8.4-10.2 gyoj=138) EGFR (BEAKER) (test 6 mL/min/1.73 sq m ESTIMATED GFR IS NOT iaty=8199) ACCURATE CREATININE CLEARANCE IN PREDICTING GLOMERULAR FILTRATION RATE. ESTIMATED GFR IS NOT APPLICABLE FOR DIALYSIS PATIENTS. BLOOD GAS, [id number] 16:44:00 Test Item Value Reference Range Comments PH ARTERIAL (BEAKER) (test fjga=111) 7.37 7.35-7.45 PCO2 ARTERIAL (BEAKER) (test owzg=328) 42 mmHg 35-45 PO2 ARTERIAL (BEAKER) (test shte=599) 123 mmHg 80-90 O2 SATURATION ARTERIAL (BEAKER) (test imlc=445) 98.3 % 96.0-97.0 HCO3 ARTERIAL (BEAKER) (test obdd=843) 24 mmol/L 21-29 BASE EXCESS ARTERIAL (BEAKER) (test ennq=476) -1.7 mmol/L -2.0-3.0 PATIENT TEMPERATURE (BEAKER) (test gozr=3326) 37.0 C FIO2 (BEAKER) (test tmds=1518) 28.0 % [id number] 16:44:00 Test Item Value Reference Range Comments PHOSPHORUS (BEAKER) (test stsc=393) 4.1 mg/dL 2.3-4.7 [id number] 16:44:00 Test Item Value Reference Range Comments MAGNESIUM (BEAKER) (test xhof=257) 1.9 mg/dL 1.6-2.6 HEPATIC FUNCTION [id number] 16:44:00 Test Item Value Reference Range Comments TOTAL PROTEIN (BEAKER) (test qyvm=786) 6.9 gm/dL 6.0-8.3 ALBUMIN (BEAKER) (test hmng=3080) 3.5 g/dL 3.5-5.0 BILIRUBIN TOTAL (BEAKER) (test yuur=794) 0.9 mg/dL 0.2-1.2 BILIRUBIN DIRECT (BEAKER) (test jfcp=005) 0.6 mg/dL 0.1-0.5 ALKALINE PHOSPHATASE (BEAKER) (test cmeh=359) 245 U/L 40-150 AST (SGOT) (BEAKER) (test diwp=499) 51 U/L 5-34 ALT (SGPT) (BEAKER) (test qydt=254) 18 U/L 6-55 VANCOMYCIN LEVEL, [id number] 16:41:00 Test Item Value Reference Range Comments VANCOMYCIN RANDOM (BEAKER) (test zqwx=209) 18.3 ug/mL Reference Range: No NormalsOXYGEN SATURATION, [id number] 16:40:00 Test Item Value Reference Range Comments O2 SATURATION (MEASURED) (BEAKER) (test dtoz=5231) 62.7 % If patient has internal jugular ( IJ) or subclavian central line or PICC line. Draw from distal port. Label as central venous oxygen.LACTIC ACID, VENOUS, WHOLE [id number] 16:38:00 Test Item Value Reference Range Comments LACTATE BLOOD VENOUS (2) (BEAKER) (test 1.2 mmol/L 0.5-2.2 oicy=5476) CBC W/PLT COUNT & AUTO [id number] 16:35:00 Test Item Value Reference Range Comments WHITE BLOOD CELL COUNT (BEAKER) (test exmj=481) 26.9 K/ L 3.5-10.5 RED BLOOD CELL COUNT (BEAKER) (test wiij=929) 3.17 M/ L 3.93-5.22 HEMOGLOBIN (BEAKER) (test isid=158) 8.8 GM/DL 11.2-15.7 HEMATOCRIT (BEAKER) (test aajo=517) 29.6 % 34.1-44.9 MEAN CORPUSCULAR VOLUME (BEAKER) (test aafh=487) 93.4 fL 79.4-94.8 MEAN CORPUSCULAR HEMOGLOBIN (BEAKER) (test 27.8 pg 25.6-32.2 dfaf=675) MEAN CORPUSCULAR HEMOGLOBIN CONC (BEAKER) (test 29.7 GM/DL 32.2-35.5 bcos=729) RED CELL DISTRIBUTION WIDTH (BEAKER) (test 15.3 % 11.7-14.4 fggw=408) PLATELET COUNT (BEAKER) (test rdop=755) 149 K/CU MM 150-450 MEAN PLATELET VOLUME (BEAKER) (test rtkk=772) 10.6 fL 9.4-12.3 NUCLEATED RED BLOOD CELLS (BEAKER) (test 0 /100 WBC 0-0 mgnk=396) NEUTROPHILS RELATIVE PERCENT (BEAKER) (test 88 % axbw=833) LYMPHOCYTES RELATIVE PERCENT (BEAKER) (test 4 % vbun=133) MONOCYTES RELATIVE PERCENT (BEAKER) (test 6 % ozrk=411) EOSINOPHILS RELATIVE PERCENT (BEAKER) (test 1 % jsnt=125) BASOPHILS RELATIVE PERCENT (BEAKER) (test 0 % qyey=428) NEUTROPHILS ABSOLUTE COUNT (BEAKER) (test 23.68 K/ L 1.56-6.13 puay=549) LYMPHOCYTES ABSOLUTE COUNT (BEAKER) (test 0.94 K/ L 1.18-3.74 zhbb=826) MONOCYTES ABSOLUTE COUNT (BEAKER) (test 1.53 K/ L 0.24-0.36 sjkt=967) EOSINOPHILS ABSOLUTE COUNT (BEAKER) (test 0.32 K/ L 0.04-0.36 perp=554) BASOPHILS ABSOLUTE COUNT (BEAKER) (test 0.08 K/ L 0.01-0.08 vsls=502) IMMATURE GRANULOCYTES-RELATIVE PERCENT (BEAKER) 1 % 0-1 (test ipvg=7818) HEP B SURFACE [id number] 15:58:00 Test Item Value Reference Range Comments Hep B Surface Ag 0.04 mIU/mL 0.00-1.00 HBsAg Signal Cutoff (Signal Value) (test Interpretation Guide: < code=HBSAG.SV) 1.00 Negative Specimen is presumed to be negative for HBsAg. >=1.00 and < 5.00 Reactive Specimen is reactive for HBsAg. Suggest confirmation by supplemental testing. > 5.00 Positive Specimen is positive for HBsAg. FT (test code=HBSAG) Negative (qualifier Negative value) CBC WITH AUTO [id number] 07:16:00 Test Item Value Reference Range Comments [...] 1.0-3.0 IG% (test code=IG%) 1.4 % 0.0-0.4 [id number] 07:13:00 Test Item Value Reference Range Comments [...] mL/min/1.73m\\S\\2 EGFR if Non- 11 Estimated Glomerular Croatian (test mL/min/1.73m\\S\\2 Filtration Rate (eGFR) code=EGFRNA) Reference [...] management of chronic kidney failure. TYPE & [id number] 15:35:00 Test Item Value Reference Range Comments ABO Blood Type (test code=ABO) A Rh (test code=RH) Negative Antibody Screen (test code=ABSCR) Negative Negative ARMBAND# (test code=ARMBAND) FF 84 337 [id number] 13:49:00 Test Item Value Reference Range Comments [...] mL/min/1.73m\\S\\2 EGFR if Non- 10 Estimated Glomerular Croatian (test mL/min/1.73m\\S\\2 Filtration Rate (eGFR) code=EGFRNA) Reference [...] management of chronic kidney failure. er4PT AND [id number] 14:13:00 Test Item Value Reference Range Comments Protime (test code=PT) 9.8 seconds 9.0-11.9 INR (test code=INR) 1.0 0.9-1.1 INR results are intended ONLY to monitor Oral Anticoagulant therapy in stablized patients. The INR Therapeutic Range is 2.0 - 3.0 Patients with a mechanical heart, the INR Range is 2.5 - 3.5 [id number] 14:13:00 Test Item Value Reference Range Comments aPTT (test code=PTT) 28.2 seconds 23.0-33.0 CBC WITH AUTO [id number] 13:39:00 Test Item Value Reference Range Comments [...] IG% (test code=IG%) 1.7 % 0.0-0.4 AUTO [id number] 13:25:00 Test Item Value Reference Range Comments [...] mL/min/1.73m\\S\\2 EGFR if Non- 10 Estimated Glomerular Croatian (test mL/min/1.73m\\S\\2 Filtration Rate (eGFR) code=EGFRNA) Reference [...] management of chronic kidney failure. TYPE & [id number] 12:40:00 Test Item Value Reference Range Comments ABO Blood Type (test code=ABO) A Rh (test code=RH) Negative Antibody Screen (test code=ABSCR) Negative Negative ARMBAND# (test code=ARMBAND) FF 12 500 [id number] 06:38:00 Test Item Value Reference Range Comments [...] mL/min/1.73m\\S\\2 EGFR if Non- 12 Estimated Glomerular Croatian (test mL/min/1.73m\\S\\2 Filtration Rate (eGFR) code=EGFRNA) Reference [...] of chronic kidney failure. CBC WITH AUTO [id number] 06:35:00 Test Item Value Reference Range Comments [...] (test code=IG%) 0.4 % 0.0-0.4 CBC AUTO [id number] 06:33:00 Test Item Value Reference Range Comments aPTT (test code=PTT) 29.4 seconds 23.0-33.0 PT AND [id number] 06:33:00 Test Item Value Reference Range Comments Protime (test code=PT) 10.1 seconds 9.0-11.9 INR (test code=INR) 1.0 0.9-1.1 INR results are intended ONLY to monitor Oral Anticoagulant therapy in stablized patients. The INR Therapeutic Range is 2.0 - 3.0 Patients with a mechanical heart, the INR Range is 2.5 - 3.5 [id number] 10:05:00 Test Item Value Reference Range Comments [...] mL/min/1.73m\\S\\2 EGFR if Non- 15 Estimated Glomerular Croatian (test mL/min/1.73m\\S\\2 Filtration Rate (eGFR) code=EGFRNA) Reference [...] PLATELET CLUMPING. THIS IS A HEMOGRAM ONLYRBC, [id number] 03:00:00 Test Item Value Reference Range Comments RBC Unit (test code=RBCUNIT) Released for Transfusion RBC, [id number] 03:00:00 Test Item Value Reference Range Comments RBC Unit (test code=RBCUNIT) Released for Transfusion CROSSMATCH x 12:53:00Completed: Compatible Ready to TransfuseTYPE & amp; [id number] 12:52:00 Test Item Value Reference Range Comments ABO Blood Type (test code=ABO) A Rh (test code=RH) Negative Antibody Screen (test code=ABSCR) Negative Negative ARMBAND# (test code=ARMBAND) FF 12 500 HEP B SURFACE [id number] 07:50:00 Test Item Value Reference Range Comments [...] Negative (qualifier Negative value) CBC WITH AUTO [id number] 07:17:00 Test Item Value Reference Range Comments [...] called to Gary DIAZ RN. K3 by [id number] on 08/10/2017 07:16 AM. Results were readback by Claudine DE LA CRUZ RN..[id number] 07:17:00 Test Item Value Reference Range Comments [...] mL/min/1.73m\\S\\2 EGFR if Non- 13 Estimated Glomerular Croatian (test mL/min/1.73m\\S\\2 Filtration Rate (eGFR) code=EGFRNA) Reference Intervals Decision Points for 18 years and older and average body mass: >=60 Does not exclude kidney disease. 30 - 59 Suggests moderate chronic kidney disease and indicates the need for further investigation including assessment of proteinuria and cardiovascular factors. < 30 Usually indicates a need for referral for assessment and management of chronic kidney failure. [id number] 19:07:00 Test Item Value Reference Range Comments aPTT (test code=PTT) 29.9 seconds 23.0-33.0 PT AND [id number] 19:07:00 Test Item Value Reference Range Comments Protime (test code=PT) 10.1 seconds 9.0-11.9 INR (test code=INR) 1.0 0.9-1.1 INR results are intended ONLY to monitor Oral Anticoagulant therapy in stablized patients. The INR Therapeutic Range is 2.0 - 3.0 Patients with a mechanical heart, the INR Range is 2.5 - 3.5 [id number] 18:35:00 Test Item Value Reference Range Comments [...] mL/min/1.73m\\S\\2 EGFR if Non- 13 Estimated Glomerular Croatian (test mL/min/1.73m\\S\\2 Filtration Rate (eGFR) code=EGFRNA) Reference [...] of chronic kidney failure. CBC WITH AUTO [id number] 18:19:00 Test Item Value Reference Range Comments [...] IG% (test code=IG%) 0.4 % 0.0-0.4 AUTO [id number] 17:15:00 Test Item Value Reference Range Comments [...] (test code=BGCTHB) 8.3 gm/dl 11.5-17.4 O2Hb (test code=FIDD8MV) 94.9 % 95.0-99.0 COHb (test code=BGFCOHB) <2.8 [...] Notified (test code=BGTMNOTIFIED) 15:59 O2 Device (test code=AJY7JIK5) Room Air Instrument ID (test code=BGINSTRID) [id number] Reported By (test code=BGREPORTEDBY) ROSALINO HUFF [id number] 09:50:00 Test Item Value Reference Range Comments [...] mL/min/1.73m\\S\\2 EGFR if Non- 14 Estimated Glomerular Croatian (test mL/min/1.73m\\S\\2 Filtration Rate (eGFR) code=EGFRNA) Reference [...] values were called to Tracy AGARWAL by [id number] on 08/07/2017 09:41 AM. Results were read back by Tracy AGARWAL.CULTURE, [id number] 07:53:00Specimen : AbscessCollected: 07/26/2017 20:47 Status: Final [...] 09:58: Culture Result (Prelim) (Prelim) Many DiptheroidsCULTURE, [id number] 06:50:00To start 15mins after 1st cultureSpecimen: BloodCollected: 07/24/2017 00:38 Status: Final Last Updated: 07/29/2017 06: 49 (1) To start 15mins after 1st culture Culture Result (Final) (Final ) No Growth After 5 DaysCULTURE, [id number] 06:50:00Specimen: BloodCollected: 07/24/2017 00:18 Status: Final Last Updated: 07/29/2017 06: 49 Culture Result (Final) (Final) No Growth After 5 DaysED RAPID [id number] 04:24:00 Test Item Value Reference Range Comments CKMB (BIOSITE) (test code=BIOCKMB) <1.0 ng/ml 0.0-2.5 TROPONIN-I (BIOSITE) (test code=BIOTROP) <0.050 ng/ml 0.000-0.050 MYOGLOBIN (BIOSITE) (test code=BIOMYO) 166.0 ng/ml 0.0-170.0 SERIAL INSTRUMENT NUMBER (test code=SERIAL) [id number] ED RAPID [id number] 01:05:00 Test Item Value Reference Range Comments CKMB (BIOSITE) (test code=BIOCKMB) <1.0 ng/ml 0.0-2.5 TROPONIN-I (BIOSITE) (test code=BIOTROP) <0.050 ng/ml 0.000-0.050 MYOGLOBIN (BIOSITE) (test code=BIOMYO) 203.0 ng/ml 0.0-170.0 SERIAL INSTRUMENT NUMBER (test code=SERIAL) [id number] 01:02:00 Test Item Value Reference Range Comments [...] mL/min/1.73m\\S\\2 EGFR if Non- 16 Estimated Glomerular Croatian (test mL/min/1.73m\\S\\2 Filtration Rate (eGFR) code=EGFRNA) Reference [...] chronic kidney failure. ER 8CBC WITH AUTO [id number] 00:58:00 Test Item Value Reference Range Comments [...] 1.0-3.0 IG% (test code=IG%) 0.5 % 0.0-0.4 ER [id number] 13:31:00 Test Item Value Reference Range Comments [...] mL/min/1.73m\\S\\2 EGFR if Non- 11 Estimated Glomerular Croatian (test mL/min/1.73m\\S\\2 Filtration Rate (eGFR) code=EGFRNA) Reference [...] of chronic kidney failure. CBC WITH AUTO [id number] 13:08:00 Test Item Value Reference Range Comments [...] 0 /100WBC 0-2 code=NRBC_AUTO) HEP B SURFACE [id number] 15:00:00 Test Item Value Reference Range Comments [...] to HBV infection. HEPATITIS B CORE AB, [id number] 10:03:00 Test Item Value Reference Range Comments HEPATITIS B CORE AB TOTAL (test code=HEPBCORE) 2.97 Negative [id number] 09:16:00 Test Item Value Reference Range Comments [...] mL/min/1.73m\\S\\2 EGFR if Non- 13 Estimated Glomerular Croatian (test mL/min/1.73m\\S\\2 Filtration Rate (eGFR) code=EGFRNA) Reference [...] management of chronic kidney failure. ERYTHROCYTE SED [id number] 09:16:00 Test Item Value Reference Range Comments [...] 50-999 years old=0-25 mm/hr CBC WITH AUTO [id number] 08:46:00 Test Item Value Reference Range Comments [...] IG% (test code=IG%) 0.7 % 0.0-0.4 LIPASE, [id number] 18:05:00 Test Item Value Reference Range Comments Lipase (test code=LIPA) 42 U/L 8-223 AMYLASE, [id number] 18:05:00 Test Item Value Reference Range Comments Amylase (test code=AMYL) 53 U/L 12-103 C-REACTIVE [id number] 17:24:00 Test Item Value Reference Range Comments C REACTIVE PROTEIN (test code=CRP) 0.7 ng/ml 0.0-0.9 [id number] 09:07:00 Test Item Value Reference Range Comments [...] mL/min/1.73m\\S\\2 EGFR if Non- 10 Estimated Glomerular Croatian (test mL/min/1.73m\\S\\2 Filtration Rate (eGFR) code=EGFRNA) Reference [...] of chronic kidney failure. CBC WITH AUTO [id number] 08:35:00 Test Item Value Reference Range Comments [...] % 0.0-0.4 CBC AUTO diffCBC WITH AUTO [id number] 05:58:00 Test Item Value Reference Range Comments [...] 1.0-3.0 IG% (test code=IG%) 0.8 % 0.0-0.4 [id number] 05:41:00 Test Item Value Reference Range Comments [...] mL/min/1.73m\\S\\2 EGFR if Non- 12 Estimated Glomerular Croatian (test mL/min/1.73m\\S\\2 Filtration Rate (eGFR) code=EGFRNA) Reference Intervals Decision Points for 18 years and older and average body mass: >=60 Does not exclude kidney disease. 30 - 59 Suggests moderate chronic kidney disease and indicates the need for further investigation including assessment of proteinuria and cardiovascular factors. < 30 Usually indicates a need for referral for assessment and management of chronic kidney failure. [id number] 05:41:00 Test Item Value Reference Range Comments Magnesium (test code=MG) 2.0 mg/dl 1.6-2.3 HEP B SURFACE [id number] 08:16:00 Test Item Value Reference Range Comments [...] (test code=HBSAG) Negative (qualifier Negative value) GLYCOSALATED [id number] 01:37:00 Test Item Value Reference Range Comments [...] ARE NOT INTERCHANGEABLE BETWEEN METHODS. 12-06-2006 FREE [id number] 01:14:00 Test Item Value Reference Range Comments Free T4 (test code=FT4) 1.24 ng/dl 0.78-2.19 CORONARY [id number] 00:54:00 Test Item Value Reference Range Comments [...] Average vLDL (test code=VLDL) 29 mg/dl 20-50 [id number] 00:52:00 Test Item Value Reference Range Comments Magnesium (test code=MG) 2.0 mg/dl 1.6-2.3 [id number] 00:52:00 Test Item Value Reference Range Comments [...] mL/min/1.73m\\S\\2 EGFR if Non- 17 Estimated Glomerular Croatian (test mL/min/1.73m\\S\\2 Filtration Rate (eGFR) code=EGFRNA) Reference [...]
[2019-03-15 00:45] LABS: Arterial Blood Carboxyhemoglob 1.6 % (0-1.5); Blood Gas Oxyhemoglobin 92.6 % (94-97)
[2019-03-15 01:05] LABS: Absolute Lymphocytes (CBC) 0.5 K/uL (0.7-4.9); Absolute Monocytes 0.8 K/uL (0.1-1.3); Absolute Neutrophil 9.9 K/uL (1.8-8.0); Basophils % 0.3 % (0-1.3); Eosinophils % 1.6 % (0-4.4); Hematocrit 43.4 % (36.0-45.0); Lymphocytes % 4.7 % (15.3-44.8); MPV 9.8 fL (7.6-11.3); Monocytes % 7.2 % (3.3-12.3); RBC Red Blood Cell Count 4.77 M/uL (3.86-4.86)
[2019-03-15 01:10] LABS: ALT/SGPT 75 U/L (12-78); AST/SGOT 57 U/L (15-37); Albumin 3.8 g/dL (3.4-5.0); Alkaline Phosphatase 268 U/L (45-117); BUN Blood Urea Nitrogen 125 mg/dL (7-18); Bicarbonate 19 mmol/L (21-32); Bilirubin Direct 0.2 mg/dL (0-0.2); Bilirubin Total 0.5 mg/dL (0.2-1.0); CKMB Creatine Kinase MB 1.9 ng/mL (0.3-3.6); Creatine Phosphokinase 69 U/L (26-192); Glucose Level 97 mg/dL (74-106); Lipase 77 U/L (73-393); Magnesium 2.7 mg/dL (1.8-2.4); NT PRO-BNP 31091 pg/mL (<125); Protein, Total 8.4 g/dL (6.4-8.2); Sodium Level 136 mmol/L (136-145); Troponin (Emerg Dept Use Only) < 0.02 ng/mL (0.0-0.045)
[2019-03-15 01:11] LABS: Potassium 7.8 mmol/L (3.5-5.1)
--- NOTE | 2019-03-15 01:35 | EDPHYS ---
Physician Documentation [facility] Name: Alysa Mayes Age: 64 yrs Sex: Female : 1955 Arrival Date: 03/14/2019 Time: 23:49 Bed 4 Private MD: ED Physician Bebo Najera HPI: 03/15 00:07 This 64 yrs old Black Female presents to ER via EMS with complaints of Breathing pkl Difficulty. 00:07 The patient has shortness of breath at rest. Onset: The symptoms/episode began/occurred pkl today. Associated signs and symptoms: The patient has no apparent associated signs or symptoms. Patient missed dialysis for 1 week. Historical: - Allergies: 00:01 amlodipine; bb 00:01 Amoxicillin; bb 00:01 PENICILLINS; bb - Home Meds: 00:01 apixaban oral oral [Active]; Arginaid 4.5 gram-156 mg/9.2 gram oral pwpk daily bb [Active]; ascorbic acid (vitamin C) 500 mg tab daily [Active]; aspirin 81 mg Oral chew 1 tab once daily [Active]; atorvastatin 40 mg oral tab 1 tab once daily [Active]; Fosrenol 1,000 mg oral pwpk 1 packet twice a day [Active]; insulin detemir subcutaneous subcutaneous [Active]; levothyroxine 50 mcg tab 1 tab once daily [Active]; Lyrica Oral [Active]; metoprolol succinate 50 mg oral Tb24 1 tab once daily [Active]; nepafenac ophthalmic ophthalmic 1 drop once daily [Active]; Linda-Ryan oral oral daily [Active]; Sensipar 30 mg oral tab 1 tab once daily [Active]; Tums Oral [Active]; zinc sulfate 220 (50) mg Oral cap daily [Active]; - PMHx: 00:01 Anemia; CHF; COPD; Diabetes - NIDDM; Dialysis; Hypertension; bb - PSHx: 00:01 dialysis port; bb - Immunization history:: Adult Immunizations unknown. - Social history:: Smoking status: unknown. - Ebola Screening: : No symptoms or risks identified at this time. ROS: 00:07 Eyes: Negative for injury, pain, redness, and discharge, ENT: Negative for injury, pkl pain, and discharge, Neck: Negative for injury, pain, and swelling, Cardiovascular: Negative for chest pain, palpitations, and edema. 00:07 Respiratory: Positive for shortness of breath. 00:07 Abdomen/GI: Negative for abdominal pain, nausea, vomiting, and diarrhea. 00:07 Back: Negative for acute changes. 00:07 : Negative for urinary symptoms. 00:07 MS/extremity: Positive for swelling, of the both legs. 00:07 Skin: Negative for rash. 00:07 Neuro: Negative for altered mental status. Exam: 00:07 Head/Face: Normocephalic, atraumatic. Eyes: Pupils equal round and reactive to light, pkl extra-ocular motions intact. Lids and lashes normal. Conjunctiva and sclera are non-icteric and not injected. Cornea within normal limits. Periorbital areas with no swelling, redness, or edema. ENT: Nares patent. No nasal discharge, no septal abnormalities noted. Tympanic membranes are normal and external auditory canals are clear. Oropharynx with no redness, swelling, or masses, exudates, or evidence of obstruction, uvula midline. Mucous membranes moist. Neck: Trachea midline, no thyromegaly or masses palpated, and no cervical lymphadenopathy. Supple, full range of motion without nuchal rigidity, or vertebral point tenderness. No Meningismus. Chest/axilla: Normal chest wall appearance and motion. Nontender with no deformity. No lesions are appreciated. Cardiovascular: Regular rate and rhythm with a normal S1 and S2. No gallops, murmurs, or rubs. Normal PMI, no JVD. No pulse deficits. 00:07 Respiratory: moderate respiratory distress is noted, Respirations: labored breathing, that is mild, Breath sounds: rales, that are mild, are scattered. 00:07 Abdomen/GI: Bowel sounds: normal, Palpation: abdomen is soft and non-tender, in all quadrants. 00:07 Back: Exam negative for acute changes. 00:07 : Exam negative for acute changes. 00:07 Musculoskeletal/extremity: Extremities: grossly normal except: noted in the both legs: swelling. 00:07 Skin: Exam negative for rash. 00:07 Neuro: Orientation: appropriate for stated age, Mentation: is normal, Cranial nerves: grossly normal, Motor: is normal. Vital Signs: 00:01 BP 134 / 67; Pulse 105; Resp 24 S; Pulse Ox 90% on R/A; Weight 77.11 kg (R); Height 5 bb ft. 6 in. (167.64 cm) (R); 00:02 Pulse Ox 99% on BiPAP; bb 00:30 BP 146 / 69; Pulse 108; Resp 26; Pulse Ox 99% on 35% BiPAP; rr5 01:00 BP 133 / 75; Pulse 90; Resp 20; Pulse Ox 98% on BiPAP; rr5 02:00 BP 146 / 60; Pulse 95; Resp 21; Pulse Ox 99% on BiPAP; rr5 02:30 BP 143 / 55; Pulse 97; Resp 21; Pulse Ox 100% on 35% BiPAP; rr5 03:00 BP 126 / 58; Pulse 90; Resp 18; Pulse Ox 99% on 35% BiPAP; rr5 03:50 BP 107 / 46; Pulse 87; Resp 19; Temp 97.9; Pulse Ox 99% on 35% BiPAP; rr5 04:20 BP 110 / 55; Pulse 85; Resp 19; Pulse Ox 98% on 35% BiPAP; rr5 00:01 Body Mass Index 27.44 (77.11 kg, 167.64 cm) bb MDM: 03/14 23:59 Patient medically screened. pkl 03/15 01:20 Data reviewed: vital signs, nurses notes, lab test result(s), EKG, radiologic studies, pkl plain films. ED course: K+ 7.8. ED course: Treatment for hyperkalemia initiated. IV Calcium chloride, IV NaHCO3, IV Reg. insulin. IV Dextrose 50%, Kayexalate PO, Albuterol neb. treatment given.. 03/14 23:50 Order name: Blood Culture Adult (2) 03/14 23:50 Order name: BMP; Complete Time: 01:03/14 23:50 Order name: CBC with Diff; Complete Time: 04:57 03/14 23:50 Order name: Ckmb; Complete Time: :03/14 23:50 Order name: CPK; Complete Time: :19 03/14 23:50 Order name: D-Dimer 03/14 23:50 Order name: Hepatic Function; Complete Time: 01:19 03/14 23:50 Order name: Lipase; Complete Time: :03/14 23:50 Order name: Magnesium; Complete Time: :03/14 23:50 Order name: NT PRO-BNP; Complete Time: 01:19 03/14 23:50 Order name: PT-INR 03/14 23:50 Order name: Ptt, Activated 03/14 23:50 Order name: Troponin (emerg Dept Use Only); Complete Time: 01:19 03/14 23:51 Order name: Blood Culture EDWI 03/14 23:50 Order name: EKG; Complete Time: 23:52 03/14 23:50 Order name: Cardiac monitoring; Complete Time: 02:01 03/14 23:50 Order name: EKG - Nurse/Tech; Complete Time: 02:01 03/14 23:51 Order name: IV Saline Lock; Complete Time: 02:01 03/14 23:51 Order name: XRAY Chest (1 view) 03/15 00:12 Order name: ABG; Complete Time: 00:53 pkl 03/15 01:18 Order name: Manual Differential; Complete Time: 04:57 EDWI 03/15 01:20 Order name: Chem 7: 30 minutes after completion of medication; Complete Time: 04:57 03/14 23:51 Order name: O2 Per Protocol; Complete Time: 02:17 03/14 23:51 Order name: O2 Sat Monitoring; Complete Time: 02:17 bb Administered Medications: 01:35 Drug: Calcium Chloride 10% 10 ml {Note: right chest .} Route: IVP; Site: Other; rr5 04:30 Follow up: Response: No adverse reaction rr5 01:40 Drug: D50W 50 ml {Note: right chest.} Route: IVP; Site: Other; rr5 04:30 Follow up: Response: No adverse reaction rr5 01:45 Drug: Sodium Bicarbonate 1 amp {Note: right chest.} Route: IVP; Site: Other; rr5 04:30 Follow up: Response: No adverse reaction rr5 01:46 Drug: Albuterol 1.25 mg Route: Inhalation; rr5 04:30 Follow up: Response: No adverse reaction rr5 01:52 Drug: Insulin Regular Human 10 units {Co-Signature: jd3 (Jeff Harris RN).} {Note: rr5 right chest .} Route: IVP; Site: Other; 04:30 Follow up: Response: No adverse reaction rr5 02:00 Drug: Kayexalate 30 grams Route: PO; rr5 04:30 Follow up: Response: No adverse reaction rr5 Disposition: 01:20 Critical Care:. pkl Disposition: 03/15/19 01:34 Hospitalization ordered by Rodrigo Tan for Inpatient Admission. Preliminary diagnosis is Acute dyspnea, Volume overload, Hyperkalemia, Missed dialysis. - Bed requested for Intensive Care Unit. - Status is Inpatient Admission. rr5 - Condition is Stable. - Problem is new. - Symptoms are unchanged. UTI on Admission? No Critical care time excluding procedures: 01:20 Critical care time: Bedside Care: 45 minutes. Total time: 45 minutes pkl Signatures: Dispatcher [employer] EDMS Shanna Becerra RN RN mw Bebo Najera MD MD pkl Angeles Monte RN RN bb Hugo Villalobos RN RN rr5 Jeff Harris RN jd3 Corrections: (The following items were deleted from the chart) 01:07 00:21 Chest For PE Angio+CT.RAD.BRZ ordered. [facility] EDMS 03:23 01:34 Hospitalization Ordered by Rodrigo Tan MD for Inpatient Admission. Preliminary mw diagnosis is Acute dyspnea, Volume overload, Hyperkalemia, Missed dialysis. Bed requested for Intensive Care Unit. Status is Inpatient Admission. Condition is Stable. Problem is new. Symptoms are unchanged. UTI on Admission? No. pkl 04:43 03:23 03/15/2019 01:34 Hospitalization Ordered by Rodrigo Tan MD for Inpatient rr5 Admission. Preliminary diagnosis is Acute dyspnea, Volume overload, Hyperkalemia, Missed dialysis. Bed requested for Intensive Care Unit. Status is Inpatient Admission. Condition is Stable. Problem is new. Symptoms are unchanged. UTI on Admission? No. mw
--- NOTE | 2019-03-15 01:35 | ER ---
Nurse's Notes [facility] Name: Alysa Mayes Age: 64 yrs Sex: Female : 1955 Arrival Date: 03/14/2019 Time: 23:49 Bed 4 Private MD: Diagnosis: Acute dyspnea, Volume overload, Hyperkalemia, Missed dialysis Presentation: 03/14 23:51 Presenting complaint: EMS states: they were toned out to [facility] for report bb of pt having difficulty breathing, O2 sats were 88% on rrom air pt was placed on NRB at 12 Lpm. Pt is a dialysis pt and has not been to dialysis in a week. Transition of care: patient was received from another setting of care (long-term care facility), [facility]. Onset of symptoms was March 14, 2019. Risk Assessment: Do you want to hurt yourself or someone else? Patient reports no desire to harm self or others. Initial Sepsis Screen: Does the patient meet any 2 criteria? Altered Mental Status. HR > 90 bpm. Does the patient have a suspected source of infection? Yes: Productive cough/pneumonia If YES to both, name of provider notified: Bebo Najera MD. Care prior to arrival: Glucose check: 94 Oxygen administered. via a non-rebreather mask. 23:51 Method Of Arrival: EMS: [facility] bb 23:51 Acuity: LESLEE 1 bb Triage Assessment: 03/15 00:00 Respiratory: Reports Onset: The symptoms/episode began/occurred gradually, the rr5 patient has mild shortness of breath. 00:00 General: Appears distressed, uncomfortable, Behavior is cooperative, appropriate for rr5 age. Historical: - Allergies: 00:01 amlodipine; bb 00:01 Amoxicillin; bb 00:01 PENICILLINS; bb - Home Meds: 00:01 apixaban oral oral [Active]; Arginaid 4.5 gram-156 mg/9.2 gram oral pwpk daily bb [Active]; ascorbic acid (vitamin C) 500 mg tab daily [Active]; aspirin 81 mg Oral chew 1 tab once daily [Active]; atorvastatin 40 mg oral tab 1 tab once daily [Active]; Fosrenol 1,000 mg oral pwpk 1 packet twice a day [Active]; insulin detemir subcutaneous subcutaneous [Active]; levothyroxine 50 mcg tab 1 tab once daily [Active]; Lyrica Oral [Active]; metoprolol succinate 50 mg oral Tb24 1 tab once daily [Active]; nepafenac ophthalmic ophthalmic 1 drop once daily [Active]; Linda-Ryan oral oral daily [Active]; Sensipar 30 mg oral tab 1 tab once daily [Active]; Tums Oral [Active]; zinc sulfate 220 (50) mg Oral cap daily [Active]; - PMHx: 00:01 Anemia; CHF; COPD; Diabetes - NIDDM; Dialysis; Hypertension; bb - PSHx: 00:01 dialysis port; bb - Immunization history:: Adult Immunizations unknown. - Social history:: Smoking status: unknown. - Ebola Screening: : No symptoms or risks identified at this time. Screenin:10 Abuse screen: Denies threats or abuse. Denies injuries from another. Nutritional rr5 screening: No deficits noted. Tuberculosis screening: No symptoms or risk factors identified. Fall Risk IV access (20 points). Assessment: 00:00 General: Appears uncomfortable, mild distress noted. Behavior is calm, cooperative, rr5 appropriate for age. Pain: Denies pain. Neuro: Level of Consciousness is awake, alert, obeys commands, Oriented to person, place, time, situation, Appropriate for age. Cardiovascular: Capillary refill < 3 seconds Rhythm is sinus tachycardia. Respiratory: Airway is patent Respiratory effort is labored, pursed lip, Respiratory pattern is tachypnea Breath sounds with rales bilaterally. GI: No signs and/or symptoms were reported involving the gastrointestinal system. : No signs and/or symptoms were reported regarding the genitourinary system. EENT: No signs and/or symptoms were reported regarding the EENT system. Derm: Skin is intact, Skin temperature is warm. Musculoskeletal: Swelling present in right leg and left leg old AV fistula at left arm noted. according to patient they are not using it . she has a HD catheter at left chest noted. 00:35 Reassessment: hard stick patient ED provider aware. rr5 01:10 Reassessment: Patient appears in no apparent distress at this time. Patient is alert, rr5 oriented x 3, equal unlabored respirations, skin warm/dry/pink. Patient states feeling better. Patient states symptoms have improved. 02:00 Reassessment: Patient appears in no apparent distress at this time. Patient is alert, rr5 oriented x 3, equal unlabored respirations, skin warm/dry/pink. no complaints made. for repeat chem 7 at 0230H. Patient states feeling better. Patient states symptoms have improved. 02:30 Reassessment: tried to pull blood from IV line. cannot find vein. ED provider aware. rr5 laboratory aware. 03:15 Reassessment: blue tap sent to laboratory. pediatric green tap extracted by laboratory rr5 staff. 04:10 Reassessment: Patient appears in no apparent distress at this time. Patient is alert, rr5 oriented x 3, equal unlabored respirations, skin warm/dry/pink. asleep on bed comfortably. no complaints made. vitally stable. 04:20 Reassessment: blue tap clotted. laboratory staff informed to recollect. rr5 Vital Signs: 00:01 BP 134 / 67; Pulse 105; Resp 24 S; Pulse Ox 90% on R/A; Weight 77.11 kg (R); Height 5 bb ft. 6 in. (167.64 cm) (R); 00:02 Pulse Ox 99% on BiPAP; bb 00:30 BP 146 / 69; Pulse 108; Resp 26; Pulse Ox 99% on 35% BiPAP; rr5 01:00 BP 133 / 75; Pulse 90; Resp 20; Pulse Ox 98% on BiPAP; rr5 02:00 BP 146 / 60; Pulse 95; Resp 21; Pulse Ox 99% on BiPAP; rr5 02:30 BP 143 / 55; Pulse 97; Resp 21; Pulse Ox 100% on 35% BiPAP; rr5 03:00 BP 126 / 58; Pulse 90; Resp 18; Pulse Ox 99% on 35% BiPAP; rr5 03:50 BP 107 / 46; Pulse 87; Resp 19; Temp 97.9; Pulse Ox 99% on 35% BiPAP; rr5 04:20 BP 110 / 55; Pulse 85; Resp 19; Pulse Ox 98% on 35% BiPAP; rr5 00:01 Body Mass Index 27.44 (77.11 kg, 167.64 cm) bb ED Course: 03/14 23:49 Patient arrived in ED. bb 23:55 Triage completed. bb 23:58 X-ray completed. Portable x-ray completed in exam room. Patient tolerated procedure kw well. 23:59 Bebo Najera MD is Attending Physician. pkl 03/15 00:00 Patient has correct armband on for positive identification. Placed in gown. Bed in low rr5 position. Call light in reach. Side rails up X2. shelter monitor on. Pulse ox on. NIBP on. 00:02 Arm band placed on Patient placed in an exam room, on a stretcher, on oxygen, on bb hall monitor, on pulse oximetry, Patient RT at bedside for placement of Bipap. 00:19 Hugo Villalobos RN is Primary Nurse. rr5 00:24 Missed attempt(s): 20 gauge in right antecubital area. Bleeding controlled, band aid bb applied, catheter tip intact. 01:00 Missed attempt(s): 22 gauge in right antecubital area. Bleeding controlled, band aid rr5 applied, catheter tip intact. 01:24 XRAY Chest (1 view) In Process Unspecified. EDMS 01:32 Rodrigo Tan MD is Hospitalizing Provider. pkl 01:35 Inserted saline lock: 20 gauge in right ,using aseptic technique. right chest by rashel anderson (nurse supervisor diagnostic). 03:52 No provider procedures requiring assistance completed. Patient admitted, IV remains in rr5 place. intact. Administered Medications: 01:35 Drug: Calcium Chloride 10% 10 ml {Note: right chest .} Route: IVP; Site: Other; rr5 04:30 Follow up: Response: No adverse reaction rr5 01:40 Drug: D50W 50 ml {Note: right chest.} Route: IVP; Site: Other; rr5 04:30 Follow up: Response: No adverse reaction rr5 01:45 Drug: Sodium Bicarbonate 1 amp {Note: right chest.} Route: IVP; Site: Other; rr5 04:30 Follow up: Response: No adverse reaction rr5 01:46 Drug: Albuterol 1.25 mg Route: Inhalation; rr5 04:30 Follow up: Response: No adverse reaction rr5 01:52 Drug: Insulin Regular Human 10 units {Co-Signature: jd3 (Jeff Harris RN).} {Note: rr5 right chest .} Route: IVP; Site: Other; 04:30 Follow up: Response: No adverse reaction rr5 02:00 Drug: Kayexalate 30 grams Route: PO; rr5 04:30 Follow up: Response: No adverse reaction rr5 Outcome: 01:34 Decision to Hospitalize by Provider. pkl 04:40 Admitted to ICU accompanied by nurse, accompanied by tech, via stretcher, room 01, with jd3 oxygen, on monitor, with chart, Report called to Holly DUMONT 04:40 Condition: stable 04:40 Instructed on the need for admit, Demonstrated understanding of instructions. jd3 04:43 Patient left the ED. rr5 Signatures: Dispatcher [employer] EDBebo Rolon MD MD pkl Angeles Monte, RN RN Lisa Allen Jonathon, RN RN jd3 Hugo Villalobos RN RN rr5 Jeff Harris RN jd3 Corrections: (The following items were deleted from the chart) 04:48 00:00 Neuro: Level of Consciousness is awake, alert, obeys commands, Oriented to jd3 person, place, time, situation, Appropriate for age rr5
[2019-03-15] MEDS ORDERED: SOD POLYSTYREN SUL 15 GM/60 ML UCUP ONE (01:36)
[2019-03-15] MEDS ORDERED: D50W 25 GM/50 ML SYRINGE IV ONE (01:36)
[2019-03-15] MEDS ORDERED: Caclcium Chloride 10% INJ SYR IV ONE (01:36)
[2019-03-15] MEDS ORDERED: SODIUM BICARB 50 MEQ/50ML VIAL ONE (01:37)
[2019-03-15] MEDS ORDERED: ALBUTEROL 2.5 MG/3 ML NEB SOL ONE (01:37)
[2019-03-15] MEDS ORDERED: INSULIN -REGULAR HUMAN 50 UNIT/0.5 ML ML ONE (01:38)
[2019-03-15 02:17] LABS: Blood Morphology Comment NOT SEEN (NOT SEEN); Platelet Estimate ADEQ
--- NOTE | 2019-03-15 02:59 | P.HP ---
Certification for Inpatient Patient admitted to: Inpatient With expected LOS: >2 Midnights Practitioner: I am a practitioner with admitting privileges, knowledge of patient current condition, hospital course, and medical plan of care. Services: Services provided to patient in accordance with Admission requirements found in Title 42 Section 412.3 of the Code of Federal Regulations Patient History Date of Service: 03/15/19 Reason for admission: hyperkalemia, ESRD on HD History of Present Illness: Ms Mayes os a 64 years old woman with multiple medical problems, including chronic combined systolic and diastolic CHF, IDDM, HTN, ESRD on HD, who is resident of a group home. For no clear reason, she miss HD last week. Today she become very SOB, O2 sat was 88% on RA, she was more sleepy than usual. Lab work in ED remarkable for hyperkalemia 7.8. She has leukocytosis 11.8 K, with 3 % bands. No history of fever or chills. CXR shows bilateral infiltrate consistent with pulmonary edema. In ER the patient already start receiving treatment for hyperkalemia per protocol. She has been on BiPAP in ER. Allergies amoxicillin [Amoxicillin] Allergy (Verified 06/08/18 19:55) unknown Penicillins Adverse Reaction (Mild, Verified 06/08/18 19:55) itching rash amlodipine Adverse Reaction (Verified 06/08/18 19:55) Itching/Hives/Rash Home Medications: Atorvastatin Calcium 40 mg PO BEDTIME 02/17/18 Furosemide [Lasix*] 80 mg PO DAILY 02/17/18 Insulin Detemir [Levemir*] 12 unit SQ BID 02/17/18 Levothyroxine [Synthroid*] 50 mcg PO [id number] 02/17/18 Pregabalin [Lyrica*] 75 mg PO BID 06/08/18 Acetaminophen [Tylenol] 650 mg PO Q4H PRN 11/20/18 Ascorbate Calcium [Vitamin C] 500 mg PO DAILY 11/20/18 Guaifenesin [Cough Syrup] 200 mg PO Q4H PRN 11/20/18 Hydrocodone Bit/Acetaminophen [[place] 7.5-325 Tablet] 1 each PO Q12H PRN Nepafenac [Ilevro] 1 drop OP DAILY PRN 11/20/18 Patiromer Calcium Sorbitex [Veltassa] 8.4 gm PO DAILY 12/23/18 Sevelamer HCl [Renagel] 1,600 mg PO TIDWM 11/20/18 Zinc Sulfate [Zinc Sulfate*] 220 mg PO DAILY 11/20/18 - Past Medical/Surgical History Diabetic: Yes -: HTN -: Asthma -: Diabetes Mellitus Type 2 -: Anemia -: ESRD -: Anemia -: CHF, diastolic -: Gout -: COPD -: Gout -: Osteomyelitis of the right foot -: Charcot arthropathy -: Right eye December 25 2014-cataract -: Left eye January 15 2015-cataract -: right groin fistula Psychosocial/ Personal History: Single, Children-2, Work-none - Family History Father -: Heart disease, Cancer Notes: prostate cancer Mother -: Heart disease, Hypertension, Diabetes, Cancer Notes: breast CA - Social History Smoking Status: Former smoker Alcohol use: No CD- Drugs: No Caffeine use: Yes Place of Residence: [place] Review of Systems 10-point ROS is otherwise unremarkable Physical Examination - Physical Exam General: Alert, In no apparent distress HEENT: Atraumatic, PERRLA, Mucous membr. moist/pink, EOMI, Sclerae nonicteric Neck: Supple, 2+ carotid pulse no bruit, No LAD, Without JVD or thyroid abnormality Respiratory: Diminished, Crackles/rales (bibasilar) Cardiovascular: Regular rate/rhythm, Normal S1 S2 Gastrointestinal: Normal bowel sounds, No tenderness Musculoskeletal: No tenderness, Swelling Integumentary: No rashes Neurological: Normal speech, Normal strength at 5/5 x4 extr, Normal tone, Normal affect Lymphatics: No axilla or inguinal lymphadenopathy - Studies Laboratory Data (last 24 hrs) 03/15/19 00:20: WBC 11.5 H, Hgb 13.2, Hct 43.4, Plt Count 218 03/15/19 00:20: Sodium 136, Potassium 7.8 H*, BUN 125 H, Creatinine 13.60 H*, Glucose 97, Magnesium 2.7 H D, Total Bilirubin 0.5, AST 57 H, ALT 75, Alkaline Phosphatase 268 H, Lipase 77 Assessment and Plan - Problems (Diagnosis) (1) Acute respiratory failure Current Visit: Yes Status: Acute Qualifiers: Respiratory failure complication: hypoxia Qualified Code(s): J96.01 - Acute respiratory failure with hypoxia (2) ESRD on hemodialysis Current Visit: Yes Status: Acute (3) Pulmonary edema Current Visit: Yes Status: Acute (4) Hyperkalemia Current Visit: No Status: Acute (5) Diabetes mellitus Onset Date: 03/23/16 Current Visit: No Status: Chronic Qualifiers: Diabetes mellitus type: type 2 Diabetes mellitus terminal gauger insulin use: with shelter use Diabetes mellitus complication status: with circulatory complication Diabetes mellitus complication detail: with peripheral angiopathy without gangrene Qualified Code(s): E11.51 - Type 2 diabetes mellitus with diabetic peripheral angiopathy without gangrene; Z79.4 - manager terminal (current) use of insulin - Plan Will admit the patient to ICU due to severe hyperkalemia, pulmonary edema, and respiratory failure. She already received treatment for hyperkalemia, will continue close monitoring of potassium level. Consult Construction Safety Consultant for emergent HD orders. Blood cultures in process. She has no fever. - Advance Directives Does patient have a Living Will: No Does patient have a Durable POA for Healthcare: No - Code Status/Comfort Care Code Status Assessed: Yes Code Status: Full Code
[2019-03-15 04:00] LABS: Potassium 6.9 mmol/L (3.5-5.1)
[2019-03-15] MEDS ORDERED: ALBUTEROL 2.5 MG/3 ML NEB SOL NEB PRN (05:07)
[2019-03-15] MEDS ORDERED: ONDANSETRON 4 MG/2 ML VIAL IV PRN (05:07)
[2019-03-15] MEDS ORDERED: IPRATROPIUM BROM 0.5MG/2.5ML NEB PRN (05:07)
[2019-03-15 05:09] VITALS: BMI 31.3
[2019-03-15] MEDS: INSULIN -REGULAR HUMAN 50 UNIT/0.5 ML ML SQ SCH ×4 (07:30→21:00)
--- NOTE | 2019-03-15 07:33 | EKG ---
Test Date: 2019-03-15 Test Time: 00:39:26 Floral Department Specialist: SANDOR MEASUREMENT RESULTS: Intervals: Rate: 98 FL: 188 QRSD: 162 QT: 412 QTc: 525 [place]: P: 70 FL: 188 QRS: 51 T: 84 INTERPRETIVE STATEMENTS: Normal sinus rhythm Left bundle branch block Abnormal ECG Compared to ECG 11/20/2018 14:28:40 Sinus tachycardia no longer present Electronically Signed On 03-15-19 07:32:15 CDT by Samson Romeo
--- NOTE | 2019-03-15 08:19 | RAD REPORT ---
EXAM DESCRIPTION: RAD - Chest Single View - 03/15/2019 1:24 am CLINICAL HISTORY: SOB Chest pain. COMPARISON: Chest Single View dated 11/21/2018; Chest Single View dated 11/20/2018; Chest Single Vie w dated 06/08/2018; Chest Single View dated 07/21/2017 FINDINGS: Portable technique limits examination quality. Moderate bilateral pulmonary opacities are noted, likely representing pulmonary edema. The heart is m ildly enlarged in size. Left-sided venous catheter has tip in the SVC. No displaced fractures. IMPRESSION: Moderate volume overload suspected.
[2019-03-15 08:28] LABS: Protime INR 1.13
[2019-03-15] MEDS ORDERED: NA CHLORIDE 0.9% 1,000 ML IV PRN (09:58)
[2019-03-15] MEDS ORDERED: ALBUMIN HUMAN 25% 50 ML IV SCH (10:00)
[2019-03-15] MEDS: MANNITOL 25% 12.5 GM/50 ML VIAL IV PRN (10:21)
[2019-03-15] MEDS: CA ACETATE 667 MG CAP PO SCH ×2 (12:00→17:00)
[2019-03-15] MEDS ORDERED: HYDROCODONE/APAP 7.5/325 MG TAB PO PRN (12:10)
[2019-03-15] MEDS ORDERED: ONDANSETRON 4 MG (ODT) TAB PO PRN (15:43)
--- NOTE | 2019-03-15 16:32 | RAD REPORT ---
EXAM DESCRIPTION: RAD - Abdomen Single View - 03/15/2019 4:21 pm CLINICAL HISTORY: Abdominal pain FINDINGS: The bowel gas pattern is unremarkable. No significant abnormal calcification is visualized
--- NOTE | 2019-03-15 16:53 | CON ---
Reason For Consultation: Elevated BUN and creatinine, over volume, end-stage renal disease. History Of Present Illness: This is a pleasant 64-year-old female, well known to me from dialysis wi th significant past medical history of diabetes complicated with neuropathy and nephropathy, hyperlip idemia, hypertension, colon artery disease complicated with congestive heart failure, end-stage renal disease on hemodialysis Wednesday, Wednesday, Wednesday at [facility], congestive hear t failure, diastolic dysfunction, the patient was in her regular state of health, apparently in the n ursing home, she started having over the night, shortness of breath and for that reason, the patient was placed on oxygen and EMS was called. Upon arrival, was hypoxemic. The patient was placed on BiP AP. Primary lab data showed elevation in creatinine, hyperkalemia with potassium 7.8. The patient r eceived the cocktail and we have been consulted. Primary work showed the patient had cardiomegaly wi th congestion and over volume. Over the night, the patient was kept on BiPAP. We took the patient f or urgent dialysis. We have been dialyzing the patient on low-potassium bath. Past Medical History: Include: 1.Diabetes. 2.Hyperlipidemia. 3.Coronary artery disease, complicated with congestive heart failure, diastolic dysfunction. 4.End-stage renal disease, on hemodialysis, Wednesday, Wednesday, Wednesday at [facility]. Social History: Denies smoking. Denies drinking. Denies drugs abuse. Family History: Positive for diabetes and hypertension. Allergies: TO AMOXICILLIN, PENICILLIN, AND AMLODIPINE. Review of Systems: Head and Neck: No red eye. No ear pain. GI: No nausea, no vomiting. : No polyuria. No dysuria. No hematuria. Narcotics And/Or Vice Detective: No vaginal discharge. Respiratory: Has shortness of breath. Cardiovascular: Has leg swelling. Endocrine: No polydipsia. Skin: No rash. Neuro: Has neuropathy. Musculoskeletal: Generalized fatigue. Physical Examination: Vital Signs: When I saw the patient, blood pressure 148/74. Chest: Crackles bilateral. Heart: S1, S2. Regular. Systolic murmur. Abdomen: Soft, nontender. Extremities: Trace edema. Neuro: Alert. No focal. Laboratory Data: Sodium 141, potassium 6, bicarb 20, BUN 130, creatinine 13.3, calcium 8.5. WBC 11. 5, H and H 13.2/43.4, platelets 218. Current Medications: The patient on its include: 1.Heparin. 2.Insulin. Home Medications: Include: 1.Atorvastatin. 2.Fosrenol. 3.Calcium carbonate. 4.Folic acid. 5.Zinc sulfate. 6.Atorvastatin. 7.Eliquis. 8.Ascorbic acid. Assessment And Plan: 1.End-stage renal disease with hyperkalemia, over volume and arrange for the dialysis tod ay and tomorrow and we will challenge the patient and we will follow up. 2.Hyperkalemia. The patient is going to be dialyzed on low-potassium bath. 3.Severe disproportion, BUN and creatinine with the presence of end-stage renal disease and the jose luis ent being on dialysis and in the presence of the hyperkalemia, possibility of recirculation valid, I doubt to be any GI loss given the normal H and H. The patient is going to need evaluation of her axi s as outpatient hopefully. 4.Secondary hyperparathyroidism. We will resume the patient on her PhosLo and we will follow up. 5.Anemia of chronic kidney disease. No need for NIMISHA. 6.Coronary artery disease with congestive heart failure. The patient is going to be challenged on t he dialysis. We will dialyze on a daily basis today and tomorrow. 7.Diabetes, as by primary. 8.Hyperkalemia. The patient is going to be dialyzed on low-potassium bath. MARK Voice ID: [id number] Report ID: [id number]
[2019-03-15] MEDS: CALCIUM CARBONATE CHEW 500MG TAB PO SCH (17:00)
[2019-03-15] MEDS: LANTHANUM 1000 MG TAB PO SCH (17:00)
[2019-03-15] MEDS: CINACALCET HCL 30 MG TAB PO SCH (17:30)
--- NOTE | 2019-03-15 17:50 | EKG ---
Test Date: 2019-03-15 Test Time: 14:42:06 Research Test Engine Evaluator: JEOVANY MEASUREMENT RESULTS: Intervals: Rate: 135 MD: 126 QRSD: 146 QT: 340 QTc: 510 Maxie: P: 57 MD: 126 QRS: 52 T: 93 INTERPRETIVE STATEMENTS: Sinus tachycardia with fusion complexes Possible Left atrial enlargement Left bundle branch block Abnormal ECG Compared to ECG 03/15/2019 00:39:26 Fusion complex(es) now present Sinus rhythm no longer present Electronically Signed On 03-15-19 17:49:03 CDT by Samson Romeo
[2019-03-15] MEDS: JUVEN PACKET PO SCH (21:00)
[2019-03-15] MEDS: INSULIN GLARGINE 100 UNITS/ML SQ SCH (21:00)
[2019-03-15] MEDS ORDERED: LANTHANUM 1000 MG TAB PO PRN (21:00)
[2019-03-15] MEDS: ATORVASTATIN 40 MG TAB PO SCH (21:22)
[2019-03-15] MEDS: APIXABAN 2.5 MG TABLET PO SCH (21:22)
[2019-03-15] MEDS: PREGABALIN 150 MG CAP PO SCH (21:22)
--- NOTE | 2019-03-16 02:52 | PN ---
Date of Progress Note: 03/15/2019 Subjective: The patient is seen and examined. Chart reviewed and case discussed with RN and Dr. Desai. The patient was sent from the alf due to shortness of breath. The patient is being dialyzed in the ICU. The patient denies any significant complaints. Medications: List reviewed. Physical Examination: Vital Signs: Temperature 97.1, heart rate 90, blood pressure 102/51, respirations 18, O2 100% on 3 L via nasal cannula. General: Awake, alert, and oriented x3. Elderly female, slightly ill appearing. Obese, BMI 31. CV: S1 and S2. Regular rate and rhythm. Peripheral pulses present. Respiratory: Diminished breath sounds. Crackles heard. No wheezing or stridor. Gastrointestinal: Abdomen is soft, nontender, nondistended. Positive bowel sounds. No guarding or rigidity. Extremities: No clubbing, cyanosis. The patient has pedal edema. Neuro: Cranial nerves 2-12 intact grossly. No focal neurological deficits. Speech is normal. Laboratory Data: Sodium 141, potassium 6, chloride 104, CO2 20, BUN 130, creatinine 13.3, glucose 68, calcium 8.9. Blood cultures pending. Assessment: A 64-year-old female with: 1. Acute respiratory failure with hypoxia. Her O2 saturations initially were 88% on room air, was started on supplemental oxygen secondary to pulmonary edema. 2. Acute pulmonary edema, improved with dialysis. 3. End-stage renal disease, on hemodialysis Wednesday, Wednesday, Wednesday. Dr. Desai on board. The patient is being dialyzed today. We will continue as scheduled. 4. Hyperkalemia. The patient received treatment in the ER. Levels have improved. I will anticipate further improvement with dialysis. We will continue monitoring on cardiac telemetry. 5. Diabetes mellitus type 2 with long-term use of insulin with chronic kidney disease, on dialysis. Continue Accu-Cheks and sliding scale insulin. 6. Obesity, BMI 31. 7. Intermittent asthma. Albuterol as needed. 8. Anemia of chronic disease secondary to chronic kidney disease. 9. Diastolic heart failure, chronic, compensated. 10. Gout. Resume home medications as appropriate. 11. Chronic obstructive pulmonary disease, chronic, stable. 12. Left heel wound. Cont wound care, off-loading Plan: Continue dialysis. Monitor in the ICU setting due to hyperkalemia. Likely discharge in the next 24-48 hours depending on clinical response. SA/MODL Voice ID: [id number] Report ID: [id number] MTDD
[2019-03-16 05:28] LABS: Absolute Lymphocytes (CBC) 0.3 K/uL (0.7-4.9); Absolute Monocytes 1.4 K/uL (0.1-1.3); Absolute Neutrophil 14.3 K/uL (1.8-8.0); Basophils % 0.5 % (0-1.3); Eosinophils % 0.9 % (0-4.4); Hematocrit 41.1 % (36.0-45.0); Lymphocytes % 1.6 % (15.3-44.8); Monocytes % 8.4 % (3.3-12.3); RBC Red Blood Cell Count 4.61 M/uL (3.86-4.86)
[2019-03-16] MEDS: LEVOTHYROXINE SOD 0.05 MG TABLET PO SCH (05:42)
[2019-03-16 06:49] LABS: Albumin 3.2 g/dL (3.4-5.0); Phosphorus 5.8 mg/dL (2.5-4.9)
[2019-03-16 06:54] LABS: Potassium 6.1 mmol/L (3.5-5.1)
[2019-03-16] MEDS: INSULIN -REGULAR HUMAN 50 UNIT/0.5 ML ML SQ SCH ×4 (07:12→20:55)
[2019-03-16] MEDS: LANTHANUM 1000 MG TAB PO SCH ×3 (08:35→16:57)
[2019-03-16] MEDS: CA ACETATE 667 MG CAP PO SCH ×3 (08:35→16:56)
[2019-03-16] MEDS: PREGABALIN 150 MG CAP PO SCH ×2 (08:36→20:45)
[2019-03-16] MEDS: CALCIUM CARBONATE CHEW 500MG TAB PO SCH ×3 (08:36→16:57)
[2019-03-16] MEDS: ASPIRIN 81 MG CHEWABLE TABLET PO SCH (08:36)
[2019-03-16] MEDS: APIXABAN 2.5 MG TABLET PO SCH ×2 (08:37→20:45)
[2019-03-16] MEDS: ZINC SULFATE 220 MG CAP PO SCH (08:37)
[2019-03-16] MEDS: METOPROLOL XL 50 MG TAB PO SCH (08:37)
[2019-03-16] MEDS: JUVEN PACKET PO SCH ×2 (08:38→20:46)
[2019-03-16] MEDS: INSULIN GLARGINE 100 UNITS/ML SQ SCH ×2 (08:47→20:57)
[2019-03-16] MEDS: MANNITOL 25% 12.5 GM/50 ML VIAL IV PRN (10:00)
[2019-03-16] MEDS ORDERED: MIDODRINE HCL 5 MG TABLET PO ONE (11:45)
--- NOTE | 2019-03-16 13:10 | RAD REPORT ---
EXAM DESCRIPTION: US - Extrem Venous W Compress Shalom - 03/16/2019 1:00 pm CLINICAL HISTORY: elevated d-dimer Bilateral leg edema and swelling. COMPARISON: Extrem Venous W Compress Shalom dated 06/12/2017 TECHNIQUE: Real-time sonographic interrogation of the left and right lower extremity deep venous sys tems was performed. FINDINGS: Normal compressibility, flow augmentation, phasic flow and spontaneous flow is identified in both the left and right lower extremity deep venous systems. IMPRESSION: No sonographic evidence of left or right lower extremity deep venous thrombosis.
[2019-03-16] MEDS ORDERED: VANCOMYCIN/NS 1 gm 1 GM/250 ML BAG IV SCH (14:15)
[2019-03-16 15:41] LABS: Potassium 3.9 mmol/L (3.5-5.1)
[2019-03-16] MEDS: CINACALCET HCL 30 MG TAB PO SCH (16:56)
--- NOTE | 2019-03-16 17:49 | PN ---
Date of Progress Note: 03/16/2019 Subjective: The patient has no complaints, tolerated hemodialysis yesterday with 4 L of fluid remova l with the hemodialysis today. Potassium was 6.1, for hemodialysis. Physical Examination: Vital Signs: Pulse ox 98, blood pressure 109/41. General: Physical examination, awake and alert. Not in distress. Heart: Regular rate and rhythm. No murmur or rub. Chest: Clear to auscultation bilaterally. No rales or wheezes. Abdomen: Soft and nontender. Extremities: Left ankle wrapped. No edema. Laboratory Data: Labs, white count 16, platelet 176, potassium 6.1, BUN 80, creatinine 10, calcium 8 .2 with albumin of 3.2. Assessment And Plan: End-stage renal disease. We will continue hemodialysis today. The patient can be discharged after dialysis. Hyperkalemia, the patient missed hemodialysis on Wednesday, has still a very high potassium with elevated BUN and creatinine. The patient was not compliant with the diet. Currently dialysis catheter with good flows, but still might have a chance of recirculation. We will continue dialysis today. Then we will discharge after hemodialysis. We will resume dialysis tomorr ow at [facility]. Metabolic bone disease, continue PhosLo. Anemia of chronic disease, no need for Epogen. Atrial fibrillation, on anticoagulation, and beta demar for rate control. THIEN/HERIBERTO Voice ID: [id number] Report ID: [id number]
[2019-03-16] MEDS: ATORVASTATIN 40 MG TAB PO SCH (20:45)
--- NOTE | 2019-03-17 03:07 | DS ---
Date of Discharge: 03/16/2019 Consultants: Dr. Zabala with Nephrology and Dr. Desai with Nephrology. Admitting Diagnoses: 1. Acute respiratory failure. 2. End-stage renal disease, on hemodialysis. 3. Pulmonary edema. 4. Hyperkalemia. 5. Diabetes mellitus, type 2, with long-term use of insulin with chronic kidney disease. Discharge Diagnoses: 1. Acute respiratory failure with hypoxia secondary to pulmonary edema. 2. Acute pulmonary edema secondary to end-stage renal disease with missed dialysis, improved. 3. End-stage renal disease, on hemodialysis. 4. Hyperkalemia, corrected. 5. Diabetes mellitus, type 2, with long-term use of insulin with chronic kidney disease, on dialysis. Continue Accu-Cheks and sliding scale insulin. 6. Obesity, BMI 31. 7. Intermittent asthma. 8. Anemia of chronic disease secondary to chronic kidney disease. 9. Diastolic heart failure, chronic, compensated. 10. Gout. 11. Left heel ulcer, chronic. The patient is undergoing wound healing through the wound healing center. 12. COPD, chronic, stable. 13. Left bundle-branch block. Hospital Course: The patient is a 64-year-old female with multiple chronic medical conditions including end-stage renal disease, on hemodialysis, who is a resident of nursing facility, missed her hemodialysis on Wednesday. The patient became short of breath, was 88% on room air, came in with a white count of 11.8 , 3% bands. Chest x-ray showed bilateral infiltrates consistent with pulmonary edema. The patient also had severe hyperkalemia and was treated emergently in the ER. The patient's potassium level improved. She was dialyzed and Nephrology was consulted. Blood cultures were obtained, did not show any growth. Abdomen x-ray was done due to nausea and vomiting, showed normal gas pattern. The patient was able to be weaned off supplemental oxygen. The patient did have some hypotension, which was likely due to dialysis, however, improved throughout the course of the day. The patient was also tachycardic at that time. EKG, however, only showed sinus tachycardia. Overall, the patient did well. She was then cleared for discharge after repeat dialysis on the day of discharge due to hyperkalemia. She will be sent home with course of Levaquin for her left heel ulcer. Followup: Follow up with primary care physician in 2-3 days. Follow up with [employer], Dr. Desai, in 2 weeks. Return to ER for worsening condition. Diet: Renal. Activity: As tolerated. No driving or operating heavy machinery while on narcotics. Physical Examination: General: Awake, alert, oriented x3. Elderly female, obese. CV: S1, S2. No murmurs. Respiratory: Moving air well bilaterally. Abdomen: Soft, nontender, nondistended. Positive bowel sounds. Extremities: No clubbing, cyanosis, or edema. Neurologic: Nonfocal. Skin: Left heel ulcer, chronic. No acute signs of infection. Continue wound care and offloading. Total time spent discharging the patient was 34 minutes. ADDENDUM: Patient had elevated WBC and CRP. Started on IV abx for possible left heel wound infection. DC was held. The following day WBC normalized after IV abx , no signs os sepsis, lactate normal. Patient dialyzed again on Wednesday and was DC back to [facility]. /HERIBERTO Voice ID: [id number] Report ID: [id number] SARA
[2019-03-17 05:26] VITALS: TEMP 98
[2019-03-17] MEDS: LEVOTHYROXINE SOD 0.05 MG TABLET PO SCH (05:47)
[2019-03-17 05:48] LABS: Absolute Lymphocytes (CBC) 0.7 K/uL (0.7-4.9); Absolute Monocytes 1.5 K/uL (0.1-1.3); Absolute Neutrophil 8.2 K/uL (1.8-8.0); Basophils % 0.9 % (0-1.3); Hematocrit 39.2 % (36.0-45.0); Lymphocytes % 6.3 % (15.3-44.8); MPV 9.4 fL (7.6-11.3); Monocytes % 13.5 % (3.3-12.3); RBC Red Blood Cell Count 4.35 M/uL (3.86-4.86)
[2019-03-17 07:02] LABS: Albumin 2.9 g/dL (3.4-5.0); Phosphorus 4.7 mg/dL (2.5-4.9); Potassium 4.5 mmol/L (3.5-5.1)
[2019-03-17] MEDS: INSULIN -REGULAR HUMAN 50 UNIT/0.5 ML ML SQ SCH ×3 (07:30→16:30)
[2019-03-17] MEDS: LANTHANUM 1000 MG TAB PO SCH ×3 (08:15→17:11)
[2019-03-17] MEDS: METOPROLOL XL 50 MG TAB PO SCH (08:16)
[2019-03-17] MEDS: CALCIUM CARBONATE CHEW 500MG TAB PO SCH ×3 (08:17→17:11)
[2019-03-17] MEDS: ASPIRIN 81 MG CHEWABLE TABLET PO SCH (08:17)
[2019-03-17] MEDS: PREGABALIN 150 MG CAP PO SCH (08:17)
[2019-03-17] MEDS: APIXABAN 2.5 MG TABLET PO SCH (08:17)
[2019-03-17] MEDS: CA ACETATE 667 MG CAP PO SCH ×3 (08:18→17:12)
[2019-03-17] MEDS: ZINC SULFATE 220 MG CAP PO SCH (08:19)
[2019-03-17 08:20] VITALS: BP 130/64
[2019-03-17] MEDS ORDERED: MEDIHONEY 44 ML TOPICAL TUBE TOP SCH (09:00)
[2019-03-17 10:09] VITALS: O2SAT 93
[2019-03-17] MEDS: JUVEN PACKET PO SCH (10:24)
[2019-03-17] MEDS: INSULIN GLARGINE 100 UNITS/ML SQ SCH (11:42)
[2019-03-17] MEDS ORDERED: MIDODRINE HCL 5 MG TABLET PO PRN (11:45)
--- NOTE | 2019-03-17 11:48 | P.PN ---
Subjective Date of Service: 03/17/19 Chief Complaint: hyperkalemia, ESRD on HD Physical Examination - Vital Signs Temperature: 98 F Blood Pressure: 130/64 Pulse: 99 Respirations: 11 Pulse Ox (%): 99 - Physical Exam General: Alert, In no apparent distress HEENT: Atraumatic Neck: Supple, Without JVD or thyroid abnormality Respiratory: Clear to auscultation bilaterally Cardiovascular: Regular rate/rhythm, Normal S1 S2, Edema Gastrointestinal: Normal bowel sounds, Soft and benign Assessment And Plan - Current Problems (Diagnosis) (1) Hyperkalemia Current Visit: Yes Status: Acute (2) ESRD on hemodialysis Current Visit: Yes Status: Acute - Plan :End-stage renal disease. We will continue hemodialysis today. The patient can be discharged after dialysis. Hyperkalemia, Resolved Low K diet Metabolic bone disease, continue PhosLo. Anemia of chronic disease, no need for Epogen. Atrial fibrillation, on anticoagulation, and beta demar for rate control. Foot Ulcer Cont Abx
[2019-03-17] MEDS: CINACALCET HCL 30 MG TAB PO SCH (17:12)
--- NOTE | 2019-03-17 17:20 | PN ---
Date of Progress Note: 03/17/2019 Subjective: The patient seen and examined. Chart reviewed and case discussed with RN and Dr. José Miguel garza. The patient will be going for dialysis again today. She is on Wednesday, Wednesday, Wednesday. The patient overall feels well. Medications: List reviewed. Physical Examination: Vital Signs: Temperature 98, heart rate 99, blood pressure 130/64, respirations 11, O2 99% on room a ir. General: Awake, alert and oriented x3, obese female. CV: S1 and S2. Regular rate and rhythm. Peripheral pulses present. Respiratory: Moving air well bilaterally. No wheezing. Gastrointestinal: Abdomen is soft, nontender, nondistended. Positive bowel sounds. Extremities: No clubbing, cyanosis, or edema. Neurologic: Nonfocal. Skin: Left heel wound clean, dry, intact. No surrounding erythema. No pustular drainage. Laboratory Data: Sodium 140, potassium 4.5, chloride 102, CO2 28, BUN 55, creatinine 7.13, glucose 8 5, lactate 1.4, calcium 8.3, phosphorus 4.7, albumin 2.9. WBC 10.9, H and H 12.2 and 39.2, platelets 171, neutrophils 75%. Blood cultures, no growth to date. Assessment And Plan: A 64-year-old female with: 1.Acute respiratory failure with hypoxia secondary to pulmonary edema, resolved, now off supplementa l oxygen. 2.Acute pulmonary edema secondary to end-stage renal disease and missed dialysis, improved significa ntly. 3.End-stage renal disease, on hemodialysis. The patient will receive another session today prior to discharge. 4.Hyperkalemia, corrected. 5.Left heel ulcer, acute on chronic. The patient received vancomycin yesterday. We will discharge on Levaquin p.o. The patient is [facility] facility. No sign s of sepsis. Lactate is negative. White blood cell count has normalized. 6.Diabetes mellitus type 2 with long-term use of insulin with chronic kidney disease, on dialysis. Continue monitoring blood glucose levels and sliding scale insulin. 7.Obesity, BMI 31. 8.Intermittent asthma, stable. 9.Anemia of chronic disease secondary to chronic kidney disease. We will continue to monitor H and H, stable. 10.Diastolic heart failure, chronic, stable. 11.Gout, stable. 12.Chronic obstructive pulmonary disease, chronic bronchitis, stable. 13.Left bundle-branch block. Plan: Discharge back to [facility] today after dialysis. /HERIBERTO Voice ID: [id number] Report ID: [id number]
== END 2019-03-17 17:49 | disposition home or self-care (01) | DRG 291 ==
LOC: ER 23:42 → ERHOLD 03-15 03:05 → 3RD-ICU 03-15 04:23 → 4TH 03-17 05:15
PROVIDERS: ADMIT Hospitalist; ATTEND Internal Medicine
PROC: 5A09457 Assistance with Respiratory Ventilation, 24-96 Consecutive Hours, Continuous Positive Airway Pressure (ICD-10-PCS; principal; 2019-03-15)
PROC: 5A1D70Z Performance of Urinary Filtration, Intermittent, Less than 6 Hours Per Day (ICD-10-PCS; 2019-03-15)
PROC: 5A1D70Z Performance of Urinary Filtration, Intermittent, Less than 6 Hours Per Day (ICD-10-PCS; 2019-03-15)
PROC: 5A1D70Z Performance of Urinary Filtration, Intermittent, Less than 6 Hours Per Day (ICD-10-PCS; 2019-03-15)
DX: I13.2 Hypertensive heart and chronic kidney disease with heart failure and with stage 5 chronic kidney disease, or end stage renal disease (principal); N18.6 End stage renal disease; J96.01 Acute respiratory failure with hypoxia; I50.32 Chronic diastolic (congestive) heart failure; L97.429 Non-pressure chronic ulcer of left heel and midfoot with unspecified severity; E11.22 Type 2 diabetes mellitus with diabetic chronic kidney disease; E66.9 Obesity, unspecified; E87.5 Hyperkalemia; Z68.31 Body mass index [BMI] 31.0-31.9, adult; J45.20 Mild intermittent asthma, uncomplicated; D63.1 Anemia in chronic kidney disease; M10.9 Gout, unspecified; E11.622 Type 2 diabetes mellitus with other skin ulcer; I25.10 Atherosclerotic heart disease of native coronary artery without angina pectoris; J44.9 Chronic obstructive pulmonary disease, unspecified; I44.7 Left bundle-branch block, unspecified; I95.3 Hypotension of hemodialysis; R00.0 Tachycardia, unspecified; Z99.2 Dependence on renal dialysis; Z79.01 Long term (current) use of anticoagulants; Z79.4 Long term (current) use of insulin; Z88.0 Allergy status to penicillin
CPT/HCPCS: 36415; 71045; 74018; 80048; 80069; 80076; 82550; 82553; 82805; 82962; 83605; 83690; 83735; 83880; 84132; 84484; 85025; 85379; 85610; 85730; 86140; 87040; 90935; 93005; 93970; 94660; 94760; 96374; 96375; 99291; 99292; J1644; J2150; J2405; J3370; P9047

== ENCOUNTER 2019-03-30 14:11 | Inpatient (IN) | payer MEDICAID ==
--- OUTSIDE RECORDS SUMMARY | 2019-03-30 14:16 | XMS REPORT | Clinical Summary ---
:1955 Author Organization [facility] Address [address] [place] [address] Care Team Providers Name Role Phone Radhika [...] Shorty Pennington, End-stage renal disease on hemodialysis ([facility]); Problem with vascular access; Mamadou Arreola's joint of foot, non-diabetic, right; MD Davis Pressure injury of right heel, stage 4 ([facility]); Emily Weston Elevated troponin; MD Mounika LBBB (left bundle branch block); Lars Lott Chronic systolic heart failure [facility] MD ESRD (end stage renal disease) on dialysis (H[facility]); MRSA bacteremia; Troponin level elevated; Anemia of chronic disease; Hypokalemia 11/22/2018 Orders Only General Internal Medicine 11/22/2018 Telephone Critical Care [facility] Shorty Pennington MD after 03/29/2018 Social History Tobacco Use Types Packs/Day Years Used Date Never Smoker Smokeless Tobacco: Never Used Sex Assigned at Date Recorded Not on file Job Start Date Occupation Industry Not on file Not on file Not on file Travel History Travel Start Travel End No recent travel history available. Last Filed Vital Signs Vital Sign Reading Time Taken Blood Pressure 124/57 12/08/2018 4:37 AM [facility] Pulse 82 12/08/2018 4:37 AM [facility] Temperature 36.8 C (98.2 F) 12/08/2018 4:37 AM [facility] Respiratory Rate 16 12/08/2018 4:37 AM [facility] Oxygen Saturation 95% 12/08/2018 4:37 AM [facility] Inhaled Oxygen Concentration - - Weight 97.9 kg (215 lb 13.3 oz) 12/07/2018 8:42 AM [facility] Height 170.2 cm (5' 7") 11/22/2018 3:09 PM [facility] Body Mass Index 33.8 12/07/2018 8:42 AM [facility] Plan of Treatment Not on file Procedures Procedure Name Priority Date/Time Associated Comments Diagnosis REPORT OF PROCEDURE - 12/28/2018 10:30 ENDOSCOPY SCAN AM [facility] RHYTHM STRIP - SCAN 12/28/2018 10:30 AM [facility] POCT-GLUCOSE METER Routine 12/08/2018 9:14 Results for this AM [facility] procedure are in the results section. CBC W/PLT COUNT & Routine 12/08/2018 5:56 Results for this AUTO DIFFERENTIAL AM [facility] procedure are in the results section. BASIC METABOLIC PANEL Routine 12/08/2018 5:56 Results for this (7) AM [facility] procedure are in the results section. CBC W/PLT COUNT & Routine 12/08/2018 5:56 Results for this AUTO DIFFERENTIAL AM [facility] procedure are in the results section. POCT-GLUCOSE METER Routine 12/07/2018 9:14 Results for this PM [facility] procedure are in the results section. XR ABDOMEN 1 VIEW JORDYN 12/07/2018 6:43 Results for this PM [facility] procedure are in the results section. POCT-GLUCOSE METER Routine 12/07/2018 5:48 Results for this PM [facility] procedure are in the results section. POCT-GLUCOSE METER Routine 12/07/2018 2:13 Results for this PM [facility] procedure are in the results section. HEMODIALYSIS Routine 12/07/2018 12:46 Results for this INPATIENT PM [facility] procedure are in the results section. HEMODIALYSIS Routine 12/07/2018 8:12 INPATIENT AM [facility] POCT-GLUCOSE METER Routine 12/07/2018 7:50 Results for this AM [facility] procedure are in the results section. CBC W/PLT COUNT & Routine 12/07/2018 5:32 Results for this AUTO DIFFERENTIAL AM [facility] procedure are in the results section. MAGNESIUM Routine 12/07/2018 5:32 Results for this AM [facility] procedure are in the results section. BASIC METABOLIC PANEL Routine 12/07/2018 5:32 Results for this (7) AM [facility] procedure are in the results section. CBC W/PLT COUNT & Routine 12/07/2018 5:32 Results for this AUTO DIFFERENTIAL AM [facility] procedure are in the results section. POCT-GLUCOSE METER Routine 12/06/2018 9:30 Results for this PM [facility] procedure are in the results section. POCT-GLUCOSE METER Routine 12/06/2018 5:41 Results for this PM [facility] procedure are in the results section. BLOOD CULTURE Routine 12/06/2018 2:55 Results for this PM [facility] procedure are in the results section. NM MYOCARDIAL Routine 12/06/2018 1:20 Results for this PERFUSION SPECT, PM [facility] procedure are in PHARM(LEXISCAN) the results section. POCT-GLUCOSE METER Routine 12/06/2018 12:29 Results for this PM [facility] procedure are in the results section. POCT-GLUCOSE METER Routine 12/06/2018 11:06 Results for this AM [facility] procedure are in the results section. TREADMILL Routine 12/06/2018 9:38 Results for this TOLERANCE(NON-NUCLEAR AM [facility] procedure are in TREADMILL) the results section. ECG 12-LEAD Routine 12/06/2018 9:12 AM [facility] Procedure Note - Interface, External Ris In - 12/06/2018 9:56 AM [facility] Ventricular Rate 90 BPM Atrial Rate 90 BPM P-R Interval 178 ms QRS Duration 152 ms Q-T Interval 424 ms QTC Calculation(Bazett) 518 ms P Califon 69 degrees R Califon 70 degrees T Califon 63 degrees Normal sinus rhythm Left bundle branch block Abnormal ECG ECG 12-LEAD Routine 12/06/2018 9:11 AM [facility] Procedure Note - Interface, External Ris In - 12/06/2018 9:56 AM [facility] Ventricular Rate 91 BPM Atrial Rate 91 BPM P-R Interval 172 ms QRS Duration 158 ms Q-T Interval 408 ms QTC Calculation(Bazett) 501 ms P Califon 60 degrees R Califon 74 degrees T Califon 206 degrees Sinus rhythm with Fusion complexes Left bundle branch block Abnormal ECG ECG 12-LEAD Routine 12/06/2018 9:03 AM [facility] ECG 12-LEAD Routine 12/06/2018 9:03 AM [facility] Procedure Note - Interface, External Ris In - 12/06/2018 9:56 AM [facility] Ventricular Rate 91 BPM Atrial Rate 91 BPM P-R Interval 172 ms QRS Duration 152 ms Q-T Interval 422 ms QTC Calculation(Bazett) 519 ms P Califon 68 degrees R Califon 67 degrees T [place]on 79 degrees Normal sinus rhythm Left bundle branch block Abnormal ECG POCT-GLUCOSE METER Routine 12/06/2018 6:16 AM [facility] CBC W/PLT COUNT & AUTO Routine 12/06/2018 1:11 AM [facility] Results for this DIFFERENTIAL procedure are in the results section. APTT Routine 12/06/2018 1:11 AM [facility] BASIC METABOLIC PANEL (7) Routine 12/06/2018 1:11 AM [facility] CBC W/PLT COUNT & AUTO Routine 12/06/2018 1:11 AM [facility] Results for this DIFFERENTIAL procedure are in the results section. VANCOMYCIN LEVEL, RANDOM Routine 12/06/2018 1:11 AM [facility] POCT-GLUCOSE METER Routine 12/05/2018 9:20 PM [facility] TRANSFUSION SERVICE REPORT - 12/05/2018 5:50 PM [facility] SCAN POCT-GLUCOSE METER Routine 12/05/2018 4:27 PM [facility] POCT-GLUCOSE METER Routine 12/05/2018 12:18 PM [facility] APTT Routine 12/05/2018 8:09 AM [facility] CBC W/PLT COUNT & AUTO Routine 12/05/2018 8:00 AM [facility] Results for this DIFFERENTIAL procedure are in the results section. BASIC METABOLIC PANEL (7) Routine 12/05/2018 8:00 AM [facility] CBC W/PLT COUNT & AUTO Routine 12/05/2018 8:00 AM [facility] Results for this DIFFERENTIAL procedure are in the results section. PREPARE LEUKO-REDUCED RBC Routine 12/04/2018 11:54 PM [facility] APTT Routine 12/04/2018 11:36 PM [facility] POCT-GLUCOSE METER Routine 12/04/2018 8:48 PM [facility] TRANSFUSION SERVICE REPORT - 12/04/2018 5:50 PM [facility] SCAN POCT-GLUCOSE METER Routine 12/04/2018 5:02 PM [facility] APTT Routine 12/04/2018 4:05 PM [facility] POCT-GLUCOSE METER Routine 12/04/2018 12:31 PM [facility] APTT Routine 12/04/2018 9:59 AM [facility] POCT-GLUCOSE METER Routine 12/04/2018 8:10 AM [facility] CBC W/PLT COUNT & AUTO Routine 12/04/2018 5:33 AM [facility] Results for this DIFFERENTIAL procedure are in the results section. VANCOMYCIN LEVEL, RANDOM Routine 12/04/2018 5:33 AM [facility] BASIC METABOLIC PANEL (7) Routine 12/04/2018 5:33 AM [facility] CBC W/PLT COUNT & AUTO Routine 12/04/2018 5:33 AM [facility] Results for this DIFFERENTIAL procedure are in the results section. POCT-GLUCOSE METER Routine 12/03/2018 9:16 PM [facility] POCT-GLUCOSE METER Routine 12/03/2018 5:04 PM [facility] TRANSFUSE LEUKO-REDUCED RED Routine 12/03/2018 3:10 PM [facility] BLOOD CELLS POCT-GLUCOSE METER Routine 12/03/2018 12:08 PM [facility] TYPE AND SCREEN, AUTOMATED Routine 12/03/2018 8:46 AM [facility] POCT-GLUCOSE METER Routine 12/03/2018 8:11 AM [facility] CBC W/PLT COUNT & AUTO Routine 12/03/2018 5:59 AM [facility] Results for this DIFFERENTIAL procedure are in the results section. BASIC METABOLIC PANEL (7) Routine 12/03/2018 5:59 AM [facility] CBC W/PLT COUNT & AUTO Routine 12/03/2018 5:59 AM [facility] Results for this DIFFERENTIAL procedure are in the results section. HEMODIALYSIS INPATIENT Routine 12/02/2018 9:15 PM [facility] IR TUNNELED DIALYSIS CATHETER Routine 12/02/2018 1:10 PM [facility] HEMOGLOBIN AND HEMATOCRIT Routine 12/02/2018 8:24 AM [facility] POCT-GLUCOSE METER Routine 12/02/2018 7:33 AM [facility] POCT-GLUCOSE METER Routine 12/02/2018 6:30 AM [facility] CBC W/PLT COUNT & AUTO Routine 12/02/2018 5:42 AM [facility] Results for this DIFFERENTIAL procedure are in the results section. PT/APTT Routine 12/02/2018 5:42 AM [facility] BASIC METABOLIC PANEL (7) Routine 12/02/2018 5:42 AM [facility] CBC W/PLT COUNT & AUTO Routine 12/02/2018 5:42 AM [facility] Results for this DIFFERENTIAL procedure are in the results section. VANCOMYCIN LEVEL, RANDOM Routine 12/02/2018 5:42 AM [facility] POCT-GLUCOSE METER Routine 12/01/2018 11:36 PM [facility] MR LOWER EXT JOINT WITHOUT IV Routine 12/01/2018 7:00 PM [facility] Results for this CONTRAST RIGHT procedure are in the results section. POCT-GLUCOSE METER Routine 12/01/2018 12:02 PM [facility] CBC W/PLT COUNT & AUTO Routine 12/01/2018 11:33 AM [facility] Results for this DIFFERENTIAL procedure are in the results section. BASIC METABOLIC PANEL (7) Routine 12/01/2018 11:33 AM [facility] CBC W/PLT COUNT & AUTO Routine 12/01/2018 11:33 AM [facility] Results for this DIFFERENTIAL procedure are in the results section. XR HIP RIGHT 1 VIEW Routine 12/01/2018 11:16 AM [facility] POCT-GLUCOSE METER Routine 12/01/2018 7:39 AM [facility] VANCOMYCIN LEVEL, RANDOM Routine 12/01/2018 5:58 AM [facility] GENTAMICIN LEVEL, TROUGH Routine 11/30/2018 8:57 PM [facility] POCT-GLUCOSE METER Routine 11/30/2018 8:16 PM [facility] POCT-GLUCOSE METER Routine 11/30/2018 6:03 PM [facility] TRANSFUSION SERVICE REPORT - 11/30/2018 6:00 PM [facility] SCAN HEMODIALYSIS INPATIENT Routine 11/30/2018 4:43 PM [facility] POCT-GLUCOSE METER Routine 11/30/2018 1:41 PM [facility] POCT-GLUCOSE METER Routine 11/30/2018 7:36 AM [facility] CBC W/PLT COUNT & AUTO Routine 11/30/2018 6:22 AM [facility] Results for this DIFFERENTIAL procedure are in the results section. BASIC METABOLIC PANEL (7) Routine 11/30/2018 6:22 AM [facility] CBC W/PLT COUNT & AUTO Routine 11/30/2018 6:22 AM [facility] Results for this DIFFERENTIAL procedure are in the results section. VANCOMYCIN LEVEL, RANDOM Routine 11/30/2018 6:22 AM [facility] PREPARE LEUKO-REDUCED RBC Routine 11/29/2018 11:54 PM [facility] POCT-GLUCOSE METER Routine 11/29/2018 9:16 PM [facility] TRANSFUSION SERVICE REPORT - 11/29/2018 6:00 PM [facility] SCAN POCT-GLUCOSE METER Routine 11/29/2018 5:48 PM [facility] POCT-GLUCOSE METER Routine 11/29/2018 1:21 PM [facility] POCT-GLUCOSE METER Routine 11/29/2018 8:20 AM [facility] CBC W/PLT COUNT & AUTO Routine 11/29/2018 5:59 AM [facility] Results for this DIFFERENTIAL procedure are in the results section. PHOSPHORUS Routine 11/29/2018 5:59 AM [facility] MAGNESIUM Routine 11/29/2018 5:59 AM [facility] BASIC METABOLIC PANEL (7) Routine 11/29/2018 5:59 AM [facility] CBC W/PLT COUNT & AUTO Routine 11/29/2018 5:59 AM [facility] Results for this DIFFERENTIAL procedure are in the results section. VANCOMYCIN LEVEL, RANDOM Routine 11/29/2018 5:59 AM [facility] POCT-GLUCOSE METER Routine 11/29/2018 12:34 AM [facility] HEMODIALYSIS INPATIENT Routine 11/28/2018 11:37 PM [facility] HEMOGLOBIN AND HEMATOCRIT Routine 11/28/2018 11:15 PM [facility] TRANSFUSE LEUKO-REDUCED RED Routine 11/28/2018 8:13 PM [facility] BLOOD CELLS POCT-GLUCOSE METER Routine 11/28/2018 5:43 PM [facility] ECHOCARDIOGRAM REPORT - SCAN 11/28/2018 1:20 PM [facility] POCT-GLUCOSE METER Routine 11/28/2018 12:[address] [facility] [address] ABDOMEN/PELVIS WITHOUT IV STAT 11/28/2018 9:19 AM [facility] Results for this CONTRAST procedure are in the results section. PROTHROMBIN TIME/INR STAT 11/28/2018 9:01 AM [facility] TRANSESOPHAGEAL ECHO Routine 11/28/2018 8:58 AM [facility] TYPE AND SCREEN, AUTOMATED Routine 11/28/2018 8:52 AM [facility] HEMOGLOBIN AND HEMATOCRIT STAT 11/28/2018 8:52 AM [facility] BLOOD CULTURE Routine 11/28/2018 8:52 AM [facility] CBC W/PLT COUNT & AUTO Routine 11/28/2018 5:57 AM [facility] Results for this DIFFERENTIAL procedure are in the results section. APTT Routine 11/28/2018 5:57 AM [facility] CBC W/PLT COUNT & AUTO Routine 11/28/2018 5:57 AM [facility] Results for this DIFFERENTIAL procedure are in the results section. BASIC METABOLIC PANEL (7) Routine 11/28/2018 5:57 AM [facility] POCT-GLUCOSE METER Routine 11/27/2018 9:29 PM [facility] APTT Routine 11/27/2018 6:12 PM [facility] POCT-GLUCOSE METER Routine 11/27/2018 1:14 PM [facility] APTT Routine 11/27/2018 10:58 AM [facility] POCT-GLUCOSE METER Routine 11/27/2018 8:07 AM [facility] BLOOD CULTURE Routine 11/27/2018 6:55 AM [facility] CBC W/PLT COUNT & AUTO Routine 11/27/2018 4:29 AM [facility] Results for this DIFFERENTIAL procedure are in the results section. APTT Routine 11/27/2018 4:29 AM [facility] BASIC METABOLIC PANEL (7) Routine 11/27/2018 4:29 AM [facility] CBC W/PLT COUNT & AUTO Routine 11/27/2018 4:29 AM [facility] Results for this DIFFERENTIAL procedure are in the results section. VANCOMYCIN LEVEL, RANDOM Routine 11/27/2018 4:29 AM [facility] POCT-GLUCOSE METER Routine 11/26/2018 10:05 PM [facility] APTT Routine 11/26/2018 8:30 PM [facility] APTT Routine 11/26/2018 6:17 PM [facility] POCT-GLUCOSE METER Routine 11/26/2018 5:09 PM [facility] POCT-GLUCOSE METER Routine 11/26/2018 12:41 PM [facility] APTT Routine 11/26/2018 10:31 AM [facility] CONT WAVE PULSED DOPPLER Routine 11/26/2018 8:22 AM [facility] COLOR-FLOW MAPPING Routine 11/26/2018 8:22 AM [facility] POCT-GLUCOSE METER Routine 11/26/2018 7:42 AM [facility] POCT-GLUCOSE METER Routine 11/26/2018 3:21 AM [facility] APTT Routine 11/26/2018 3:11 AM [facility] POCT-GLUCOSE METER Routine 11/25/2018 10:12 PM [facility] APTT Routine 11/25/2018 8:46 PM [facility] POCT-GLUCOSE METER Routine 11/25/2018 7:32 PM [facility] VANCOMYCIN LEVEL, RANDOM Routine 11/25/2018 6:13 PM [facility] HEPATITIS B SURFACE ANTIGEN Routine 11/25/2018 3:08 PM [facility] APTT Routine 11/25/2018 3:08 PM [facility] HEMODIALYSIS INPATIENT Routine 11/25/2018 3:01 PM [facility] APTT Routine 11/25/2018 12:10 PM [facility] BASIC METABOLIC PANEL (7) STAT 11/25/2018 12:10 PM [facility] POCT-GLUCOSE METER Routine 11/25/2018 7:44 AM [facility] APTT Routine 11/25/2018 6:23 AM [facility] CBC W/PLT COUNT & AUTO STAT 11/25/2018 5:35 AM [facility] Results for this DIFFERENTIAL procedure are in the results section. CBC W/PLT COUNT & AUTO STAT 11/25/2018 5:35 AM [facility] Results for this DIFFERENTIAL procedure are in the results section. APTT Routine 11/24/2018 11:39 PM [facility] PHOSPHORUS Routine 11/24/2018 11:39 PM [facility] MAGNESIUM Routine 11/24/2018 11:39 PM [facility] BASIC METABOLIC PANEL (7) STAT 11/24/2018 11:39 PM [facility] POCT-GLUCOSE METER Routine 11/24/2018 10:04 PM [facility] POCT-GLUCOSE METER Routine 11/24/2018 5:17 PM [facility] APTT Routine 11/24/2018 4:43 PM [facility] PT/APTT Routine 11/24/2018 4:43 PM [facility] POCT-GLUCOSE METER Routine 11/24/2018 12:28 PM [facility] APTT Routine 11/24/2018 9:37 AM [facility] POCT-GLUCOSE METER Routine 11/24/2018 7:38 AM [facility] CBC W/PLT COUNT & AUTO STAT 11/24/2018 4:03 AM [facility] Results for this DIFFERENTIAL procedure are in the results section. PHOSPHORUS Routine 11/24/2018 4:03 AM [facility] MAGNESIUM Routine 11/24/2018 4:03 AM [facility] TROPONIN I Routine 11/24/2018 4:03 AM [facility] B-TYPE NATRIURETIC FACTOR Routine 11/24/2018 4:03 AM [facility] Results for this (BNP) procedure are in the results section. CBC W/PLT COUNT & AUTO STAT 11/24/2018 4:03 AM [facility] Results for this DIFFERENTIAL procedure are in the results section. BASIC METABOLIC PANEL (7) STAT 11/24/2018 4:03 AM [facility] LACTIC ACID, VENOUS Routine 11/24/2018 4:03 AM [facility] POCT-GLUCOSE METER Routine 11/23/2018 9:54 PM [facility] POCT-GLUCOSE METER Routine 11/23/2018 6:00 PM [facility] BLOOD CULTURE Routine 11/23/2018 3:40 PM [facility] POCT-GLUCOSE METER Routine 11/23/2018 12:58 PM [facility] VANCOMYCIN LEVEL, RANDOM Routine 11/23/2018 12:54 PM [facility] CATHETER TIP CULTURE STAT 11/23/2018 12:54 PM [facility] IR CENTRAL VENOUS CATHETER STAT 11/23/2018 12:38 PM [facility] Results for this PLACEMENT (JUGULAR OR procedure are in the FEMORAL) results section. ECG 12-LEAD Routine 11/23/2018 9:30 AM [facility] Procedure Note - Interface, External Ris In - 11/23/2018 9:37 AM [facility] Ventricular Rate 92 BPM Atrial Rate 92 BPM P-R Interval 156 ms QRS Duration 162 ms Q-T Interval 418 ms QTC Calculation(Bazett) 516 ms P Califon 52 degrees R Califon 38 degrees T Califon 103 degrees Normal sinus rhythm Left bundle branch block Abnormal ECG When compared with ECG of 22-NOV-2018 16:47, No significant change was found ECG 12-LEAD STAT 11/23/2018 9:30 AM [facility] ECHOCARDIOGRAM REPORT - SCAN 11/23/2018 9:00 AM [facility] XR ABDOMEN 1 VIEW STAT 11/23/2018 8:35 AM [facility] CALCIUM, IONIZED Routine 11/23/2018 7:27 AM [facility] CBC W/PLT COUNT & AUTO STAT 11/23/2018 7:00 AM [facility] Results for this DIFFERENTIAL procedure are in the results section. LIPASE STAT 11/23/2018 7:00 AM [facility] TROPONIN I JORDYN 11/23/2018 7:00 AM [facility] PHOSPHORUS Routine 11/23/2018 7:00 AM [facility] MAGNESIUM Routine 11/23/2018 7:00 AM [facility] BASIC METABOLIC PANEL (7) Routine 11/23/2018 7:00 AM [facility] COMPREHENSIVE METABOLIC Routine 11/23/2018 7:00 AM [facility] Results for this PANEL procedure are in the results section. CBC W/PLT COUNT & AUTO STAT 11/23/2018 7:00 AM [facility] Results for this DIFFERENTIAL procedure are in the results section. LACTIC ACID, VENOUS Routine 11/23/2018 7:00 AM [facility] PHOSPHORUS Routine 11/23/2018 1:26 AM [facility] MAGNESIUM Routine 11/23/2018 1:26 AM [facility] CALCIUM, IONIZED Routine 11/23/2018 1:26 AM [facility] BASIC METABOLIC PANEL (7) Routine 11/23/2018 1:26 AM [facility] POCT-GLUCOSE METER Routine 11/23/2018 12:27 AM [facility] TROPONIN I Routine 11/22/2018 10:08 PM [facility] LACTIC ACID, VENOUS STAT 11/22/2018 10:08 PM [facility] US ABDOMEN COMPLETE STAT 11/22/2018 6:56 PM [facility] LACTIC ACID, VENOUS STAT 11/22/2018 6:36 PM [facility] XR CHEST 1 VIEW STAT 11/22/2018 4:48 PM [facility] Results for this PORTABLE/BEDSIDE procedure are in the results section. ECG 12-LEAD Routine 11/22/2018 4:47 PM [facility] Procedure Note - Interface, External Ris In - 11/22/2018 5:11 PM [facility] Ventricular Rate 91 BPM Atrial Rate 91 BPM P-R Interval 162 ms QRS Duration 172 ms Q-T Interval 442 ms QTC Calculation(Bazett) 543 ms P Califon 6 degrees R Califon -18 degrees T [place] 70 degrees Normal sinus rhythm Left bundle branch block Abnormal ECG No previous ECGs available ECG 12-LEAD Routine 11/22/2018 4:47 PM [facility] BLOOD GAS, ARTERIAL STAT 11/22/2018 4:25 PM [facility] BLOOD CULTURE STAT 11/22/2018 4:25 PM [facility] (CELLAVISION MANUAL DIFF) Routine 11/22/2018 4:19 PM [facility] CBC W/PLT COUNT & AUTO STAT 11/22/2018 4:19 PM [facility] Results for this DIFFERENTIAL procedure are in the results section. VANCOMYCIN LEVEL, RANDOM STAT 11/22/2018 4:19 PM [facility] B-TYPE NATRIURETIC FACTOR Routine 11/22/2018 4:19 PM [facility] Results for this (BNP) procedure are in the results section. TSH/FREE T4 IF INDICATED Routine 11/22/2018 4:19 PM [facility] TROPONIN I Routine 11/22/2018 4:19 PM [facility] CBC W/PLT COUNT & AUTO STAT 11/22/2018 4:19 PM [facility] Results for this DIFFERENTIAL procedure are in the results section. PROTHROMBIN TIME/INR STAT 11/22/2018 4:19 PM [facility] MAGNESIUM STAT 11/22/2018 4:19 PM [facility] PHOSPHORUS STAT 11/22/2018 4:19 PM [facility] BASIC METABOLIC PANEL (7) STAT 11/22/2018 4:19 PM [facility] HEPATIC FUNCTION PANEL STAT 11/22/2018 4:19 PM [facility] OXYGEN SATURATION, MEASURED STAT 11/22/2018 4:19 PM [facility] PROCALCITONIN STAT 11/22/2018 4:19 PM [facility] LACTIC ACID, VENOUS STAT 11/22/2018 4:19 PM [facility] BLOOD CULTURE IDENTIFICATION Routine 11/22/2018 4:19 PM [facility] Results for this PANEL procedure are in the results section. BLOOD CULTURE STAT 11/22/2018 4:19 PM [facility] 2D ECHO W/ DOPPLER STAT 11/22/2018 3:51 PM [facility] Results for this (CW/PW/COLOR) procedure are in the results section. after 03/29/2018 Results EKG-SCANNED (12/28/2018 10:30 AM [facility]) Narrative Performed At [facility] - SCAN (12/28/2018 10:30 AM STITCHDOWN THREAD LASTER) Narrative Performed At POC-Glucose meter (12/08/2018 9:14 AM STITCHDOWN THREAD LASTER)Only the most recent of56 resultswithin the time period is included. POC-Glucose Meter 110Comment: TESTED AT 70 - 110 mg/dL [facility] [address] [facility] [address] Specimen Blood Performing Organization Address City/State/Zipcode Phone Number [facility] [address] [place], [place] [phone] CENTER CBC with platelet count + automated diff (12/08/2018 5:56 AM STITCHDOWN THREAD LASTER)Only the most recent of16 resultswithin the time period is included. WBC 8.2 3.5 - 10.5 K/L [facility] RBC 2.79 (L) 3.93 - 5.22 M/L [facility] Hemoglobin 7.8 (L) 11.2 - 15.7 GM/DL [facility] Hematocrit 26.4 (L) 34.1 - 44.9 % [facility] MCV 94.6 79.4 - 94.8 fL [facility] MCH 28.0 25.6 - 32.2 pg [facility] MCHC 29.5 (L) 32.2 - 35.5 GM/DL [facility] RDW 14.5 (H) 11.7 - 14.4 % [facility] Platelets 299 150 - 450 K/CU MM [facility] MPV 10.0 9.4 - 12.3 fL [facility] nRBC 0 0 - 0 /100 WBC [facility] % Neutros 72 % [facility] % Lymphs 11 % [facility] % Monos 10 % [facility] % Eos 5 % [facility] % Baso 1 % [facility] # Neutros 5.93 1.56 - 6.13 K/L [facility] # Lymphs 0.87 (L) 1.18 - 3.74 K/L [facility] # Monos 0.84 (H) 0.24 - 0.36 K/L [facility] # Eos 0.44 (H) 0.04 - 0.36 K/L [facility] # Baso 0.09 (H) 0.01 - 0.08 K/L [facility] Immature Granulocytes-Relative 1 0 - 1 % [facility] Specimen Blood Performing Organization Address City/[facility]/Zipcode Phone Number [address] [address] [phone] [place] Basic Metabolic Panel (12/08/2018 5:56 AM [employer]DOWN THREAD LASTER)Only the most recent of18 resultswithin the time period is included. Sodium 139 136 - 145 meq/L [facility] Potassium 4.3 3.5 - 5.1 meq/L [facility] Chloride 104 98 - 107 meq/L [facility] CO2 26 22 - 29 meq/L [facility] BUN 31 (H) 7 - 21 mg/dL [facility] Creatinine 5.39 (H) 0.57 - 1.25 mg/dL [facility] Glucose 83 70 - 105 mg/dL [facility] Calcium 9.1 8.4 - 10.2 mg/dL [facility] EGFR 10Comment: ESTIMATED GFR IS mL/min/1.73 sq m [facility] NOT ACCURATE CREATININE [facility] CENTER CLEARANCE IN PREDICTING GLOMERULAR FILTRATION RATE. ESTIMATED GFR IS NOT APPLICABLE FOR DIALYSIS PATIENTS. Specimen Blood Performing Organization Address City/State/Zipcode Phone Number [place] [phone] [place] [address] [place] XR abdomen / KUB 1 view (12/07/2018 6:43 PM [employer]DOWN [employer]READ LASTER)Only the most recent of2 resultswithin the time period is included. Specimen Narrative Performed At FINAL REPORT [facility] [place] EXAMINATION: SUPINE ABDOMEN CLINICAL INDICATION: Abdominal pain [...] MD Report Verified Date/Time:12/08/2018 04:19:23 Reading Location: [address] Reading Room Procedure Note Interface, External Ris In - 12/08/2018 4:21 AM [employer]DOWN [employer]READ LASTER FINAL REPORT EXAMINATION: SUPINE ABDOMEN CLINICAL INDICATION: [...] Report Verified Date/Time: 12/08/2018 04:19:23 Reading Location: [address] Reading Room Performing Organization Address City/State/Zipcode Phone Number [facility] [place] HEMODIALYSIS INPATIENT (12/07/2018 12:46 PM [employer]DOWN [employer]READ LASTER) Narrative Performed At Khai Angeles RN 12/07/2018 [...] 36.0 seconds Final Magnesium (12/07/2018 5:32 AM [employer]DOWN [employer]READ LASTER)Only the most recent of7 resultswithin the time period is included. Magnesium 2.2 1.6 - 2.6 mg/dL [facility] Specimen Blood Performing Organization Address City/State/Zipcode Phone Number [address] [address] CENTER Blood culture (12/06/2018 2:55 PM [employer]DOWN [employer]READ LASTER)Only the most recent of6 resultswithin the time period is included. Result No growth in 5 days [facility] Specimen Blood Performing Organization Address City/State/Zipcode Phone Number [address] [address] CENTER NM myocardial perfusion SPECT, pharm(Lexiscan) (12/06/2018 1:20 PM [employer]DOWN [employer]READ LASTER) Specimen Narrative Performed At FINAL REPORT [facility] PROCEDURE:Rest/Stress MYOCARDIAL PERFUSION SPECT with regadenoson\\XA9\\ CPT CODE:60807 INDICATION:New onset heart failure, intermediate risk for [...] MD Report Verified Date/Time:12/06/2018 16:00:51 Reading Location: [address] Reading Room Procedure Note Interface, External Ris In - 12/06/2018 4:03 PM [employer]DOWN [employer]READ LASTER FINAL REPORT PROCEDURE: Rest/Stress MYOCARDIAL PERFUSION SPECT with regadenoson\\XA9\\ CPT CODE: 11353 INDICATION: New onset heart failure, intermediate risk [...] Report Verified Date/Time: 12/06/2018 16:00:51 Reading Location: [address] [id number] [facility] Reading Room Performing Organization Address City/State/Zipcode Phone Number [facility] Treadmill tolerance(Non-Nuclear Treadmill) (12/06/2018 9:38 AM [employer]ITCHDOWN THREAD LASTER) Specimen Narrative Performed At Protocol Name Willian HireHive Time In Exercise Phase 00:01:00 Max. Systolic [...] 10:22:29 AM Confirmed by MD GOLDBERG JORGE ([id number]) on 12/20/2018 12:25:53 PM Procedure Note Interface, External Ris In - 12/20/2018 12:26 PM [employer]DOWN [employer] LASTER Protocol Name Lexiscan Time In Exercise Phase [...] 10:22:29 AM Confirmed by MD GOLDBERG JORGE ([id number]) on 12/20/2018 12:25:53 PM Performing Organization Address City/State/Zipcode Phone Number [facility] MUSE ECG 12 lead (12/06/2018 9:03 AM [employer]DOWN [employer]READ LASTER)Only the most recent of3 resultswithin the time period is included. Specimen Narrative Performed At Ventricular Rate 91 BPM [facility] Atrial Rate 91 BPM P-R Interval 172 ms QRS Duration 152 ms Q-T Interval 422 ms QTC Calculation(Bazett) 519 ms P Califon 68 degrees R Califon 67 degrees T Califon 79 degrees Normal sinus rhythm Left bundle branch block Abnormal ECG Confirmed by MD Denny Roberto ([id number]) on 12/06/2018 2:16:39 PM Procedure Note Interface, External Ris In - 12/06/2018 2:16 PM [employer] LASTER Ventricular Rate 91 BPM Atrial Rate 91 BPM P-R Interval 172 ms QRS Duration 152 ms Q-T Interval 422 ms QTC Calculation(Bazett) 519 ms P [place]on 68 degrees R Califon 67 degrees T [place] 79 degrees Normal sinus rhythm Left bundle branch block Abnormal ECG Confirmed by MD Denny Roberto ([id number]) on 12/06/2018 2:16:39 PM Performing Organization Address City/State/Zipcode Phone Number [facility] MUSE aPTT (12/06/2018 1:11 AM [employer]DOWN [employer]READ LASTER)Only the most recent of20 resultswithin the time period is included. PTT 85.3 (H) 22.5 - 36.0 seconds [facility] Specimen Blood Performing Organization Address [facility] Cent[facility] Phone Number [address] [address] [phone] CENTER Vancomycin level, random (12/06/2018 1:11 AM [employer]DOWN [employer]READ LASTER)Only the most recent of10 resultswithin the time period is included. Vancomycin Rm 18.7 ug/mL [facility] Specimen Blood Narrative Performed At Reference Range: No Normals [facility] Performing Organization Address [facility] Phone Number [address] [address] CENTER TRANSFUSION SERVICE REPORT - SCAN (12/05/2018 5:50 PM [employer]DOWN [employer]READ LASTER)Only the most recent of4 resultswithin the time period is included. Narrative Performed At Prepare Leuko-Red RBC (12/04/2018 11:54 PM [employer]DOWN [employer]READ LASTER)Only the most recent of2 resultswithin the time period is included. CROSSMATCH COMPATIBLE SAFETRACE TX Unit ABO A Neg SAFETRACE TX UNIT NUMBER [id number] SAFETRACE TX Status TRANSFUSED SAFETRACE TX Blood Bank Product RED BLOOD CELLS SAFETRACE TX PRODUCT CODE [id number] SAFETRACE TX Specimen Other Performing Organization Address City/[facility] Phone Number SAFETRACE TX Transfuse Leuko-Red RBC (12/03/2018 3:10 PM [employer]DOWN [employer]READ LASTER)Only the most recent of4 resultswithin the time period is included.Type and screen, automated (2018 8:46 AM [employer]ITCHDOWN THREAD LASTER)Only the most recent of2 resultswithin the time period is included. ABO/RH AUTOMATED (BEAKER) A NEGATIVE [facility] Ab Scrn NEGATIVE [facility] Specimen Blood Performing Organization Address City/State/Zipcode Phone Number [facility] [address] [place] [address] [phone] HEMODIALYSIS INPATIENT (12/02/2018 9:15 PM [employer]ITCHDOWN THREAD LASTER) Narrative Performed At Meenakshi No RN 12/02/20189:20 PM Hd completed for 4 hours with UF-2L. Pt's bp dropped at the end of HD. Pt given Ns 500 ml bolus. Pt responded to the bolus and blood pressure stabilize. Pt alert , awake. No distress. [facility]. BP 127/61 (BP Location: Right arm, [...] IR Tunneled Catheter Insertion (12/02/2018 1:10 PM [employer]ITCHDOWN THREAD LASTER) Specimen Narrative Performed At FINAL REPORT [facility] [place] History: Need for long-term hemodialysis access, malfunctioning [...] MD Report Verified Date/Time:12/06/2018 14:29:30 Reading Location: [place] [address] Angio Body Reading Room Procedure Note Interface, External Ris In - 12/06/2018 2:31 PM [employer]DOWN THREAD LASTER FINAL REPORT History: Need for long-term hemodialysis [...] mGy Signed: Aamir Aguero MD Report Verified Date/Time: 12/06/2018 14:29:30 Reading Location: [place] [address] Angio Body Reading Room Performing Organization Address City/[facility] Cent[facility]ode Phone Number GE RIS Hemoglobin and hematocrit (12/02/2018 8:24 AM [employer]ITCHDOWN THREAD LASTER)Only the most recent of3 resultswithin the time period is included. Hemoglobin 7.2 (L) 11.2 - 15.7 GM/DL [facility] Hematocrit 24.1 (L) 34.1 - 44.9 % [facility] Specimen Blood Performing Organization Address City/[facility]/Zipcode Phone Number [place] [phone] [place] [address] CENTER PT/aPTT (12/02/2018 5:42 AM STITCHDOWN THREAD LASTER)Only the most recent of2 resultswithin the time period is included. Protime 14.1 11.7 - 14.7 seconds [facility] INR 1.1 <=5.9 [facility] PTT 39.6 (H) 22.5 - 36.0 seconds [facility] Specimen Blood Narrative Performed At RECOMMENDED COUMADIN/WARFARIN INR THERAPY [facility] RANGES STANDARD DOSE: 2.0 - 3.0 Includes: PROPHYLAXIS for venous thrombosis, systemic embolization; TREATMENT for venous thrombosis and/or pulmonary embolus. HIGH RISK: Target INR is 2.5-3.5 for patients with mechanical heart valves. Performing Organization Address City/State/Zipcode Phone Number [facility] [address] [place] [address] [phone] CENTER MR lower extremity joint only without IV contrast right side (12/01/2018 7:00 PM STITCHDOWN THREAD LASTER) Specimen Narrative Performed At FINAL REPORT [facility] Indication: Right hip pain TECHNIQUE: Multiplanar multisequence [...] MD Report Verified Date/Time:12/02/2018 09:05:25 Reading Location: [facility] B1 C013X Ortho Consult Reading Room Procedure Note Interface, External Ris In - 12/02/2018 9:07 AM STITCHDOWN THREAD LASTER FINAL REPORT Indication: Right hip pain TECHNIQUE: [...] Report Verified Date/Time: 12/02/2018 09:05:25 Reading Location: [facility] B1 C013X Ortho Consult Reading Room Performing Organization Address City/State/Zipcode Phone Number [facility] [employer] XR hip 1 view right (12/01/2018 11:16 AM STITCHDOWN THREAD LASTER) Specimen Narrative Performed At FINAL REPORT [facility] RAD, HIP, 1 VIEW, RIGHT CLINICAL INDICATION: [...] MD Report Verified Date/Time:12/01/2018 11:34:51 Reading Location: [facility] Radiology Reading Room Procedure Note Interface, External Ris In - 12/01/2018 12:16 PM STITCHDOWN THREAD LASTER FINAL REPORT RAD, HIP, 1 VIEW, RIGHT [...] Report Verified Date/Time: 12/01/2018 11:34:51 Reading Location: [facility] Radiology Reading Room Performing Organization Address [facility] Centercode Phone Number [facility] [facility] Gentamicin level, trough (11/30/2018 8:57 PM STITCHDOWN THREAD LASTER) Gentamicin Trough 1.5 (H) 0.5 - 1.0 ug/mL [facility] Specimen Blood Narrative Performed At Dosing [facility] Target Level (mcg/mL) 1-1.5 mg/kg q 8-12 HR 0.5-1.0 3-7 mg/kg q 24 HR<0.5 Before gent dose Performing Organization Address [facility]/Zipcode Phone Number [facility] [address] [place] [address] CENTER HEMODIALYSIS INPATIENT (11/30/2018 4:43 PM STITCHDOWN THREAD LASTER) Narrative Performed At Khadijah Leavitt RN 11/30/20187:59 [...] pull original 2.5L. Medicated for pain with [place] X 1 with moderate effect.Patient stated that pain has returned and wants another [place]- not yet due. Pre-meal dinnertime blood glucose not covered as patient did not want to eat dinner yet.Dinner tray sent back to 21T with patient per patient request.Khadijah Leavitt RN Phosphorus (11/29/2018 5:59 AM STITCHDOWN THREAD LASTER)Only the most recent of6 resultswithin the time period is included. Phosphorus 4.1 2.3 - 4.7 mg/dL [facility] Specimen Blood Performing Organization Address City/State/Zipcode Phone Number [facility] [address] [place] [address] CENTER HEMODIALYSIS INPATIENT (11/28/2018 11:37 PM STITCHDOWN THREAD LASTER) Narrative Performed At Yevgeniy Laws RN 11/28/2018 [...] ECHOCARDIOGRAM REPORT - SCAN (11/28/2018 1:20 PM STITCHDOWN THREAD LASTER) Narrative Performed At CT abdomen/pelvis without iv contrast (11/28/2018 9:19 AM STITCHDOWN THREAD LASTER) Specimen Narrative Performed At FINAL REPORT [facility] ABDOMINAL AND PELVIS CT DATED 11/28/2018 CLINICAL [...] MD Report Verified Date/Time:11/28/2018 09:28:06 Reading Location: [facility] C013Y CT Body Reading Room Procedure Note Interface, External Ris In - 11/28/2018 9:30 AM [employer]DOWN THREAD LASTER FINAL REPORT ABDOMINAL AND PELVIS CT DATED [...] Report Verified Date/Time: 11/28/2018 09:28:06 Reading Location: [facility] B1 C013Y CT Body Reading Room Performing Organization Address City/State/Zipcode Phone Number RIS Prothrombin time/INR (11/28/2018 9:01 AM STITCHDOWN THREAD LASTER)Only the most recent of2 resultswithin the time period is included. Protime 14.5 11.7 - 14.7 seconds [facility] INR 1.1 <=5.9 [facility] Specimen Blood Narrative Performed At RECOMMENDED COUMADIN/WARFARIN INR THERAPY [facility] CENTER RANGES STANDARD DOSE: 2.0 - 3.0 Includes: PROPHYLAXIS for venous thrombosis, systemic embolization; TREATMENT for venous thrombosis and/or pulmonary embolus. HIGH RISK: Target INR is 2.5-3.5 for patients with mechanical heart valves. Performing Organization Address City/State/Zipcode Phone Number [facility] [address] [place] [address] CENTER Transesophageal echo (11/28/2018 8:58 AM STITCHDOWN THREAD LASTER) Ejection Fraction [facility] ECHO HEARTLAB MKCKESSON CPA Specimen Narrative Performed At Transesophageal Echocardiography Report (JOSE) [facility] Dem[facility] Patient Name ALYSA FLORIAN Date of Study 11/28/2018 [id number] GenderFemale Visit Number [id number] Ricardo [id number] Room Number 2131 Number Date of Birth1955Referring Physician Mamadou Arreola Age63 year(s)Evaporator Helper Randall Jack InterpretingRaciro Jean, Physician Fellow RICARDO Hilario FEL Procedure Type of Study JOSE procedure:TRANSESOPHAGEAL ECHO [...] in RUPV Doppler. TV structure is normal. Mfsg-bb-egjemsxu tricuspid regurgitation. Estimated peak systolic PA pressure [...] Doppler. Tricuspid TV structure is normal. Valve Tely-kg-kzmqnclz tricuspid regurgitation. Estimated peak systolic PA pressure [...] External Ris In - 11/28/2018 12:33 PM STITCHDOWN THREAD LASTER Transesophageal Echocardiography Report (JOSE) Demographics Patient Name ALYSA FLORIAN Date of Study 11/28/2018 Gender Female Visit Number [id number] Race Black Room Number 2131 Number Date of 1955 Referring Physician Mamadou Arreola Age 63 year(s) Evaporator Helper Randall Jack Interpreting Hugo Jean, Physician Fellow [...] in RUPV Doppler. TV structure is normal. Cjxl-bs-ygsuyznv tricuspid regurgitation. Estimated peak systolic PA pressure [...] Doppler. Tricuspid TV structure is normal. Valve Tzvq-xn-poyxbxtd tricuspid regurgitation. Estimated peak systolic PA pressure [...] TR Gradient: 57.33 mmHg Performing Organization Address City/[facility]/Zipcode Phone Number [facility] ECHO HEARTLAB MKCKESSON CPA Hepatitis B surface antigen (11/25/2018 3:08 PM STITCHDOWN THREAD LASTER) hepatitis B Surface Ag NON-REACTIVE Nonreactive [facility] Specimen Blood Performing Organization Address City/[facility]/Zipcode Phone Number [address] [address] CENTER Troponin I (11/24/2018 4:03 AM STITCHDOWN THREAD LASTER)Only the most recent of4 resultswithin the time period is included. Troponin I 0.31 (HH) 0.00 - 0.03 ng/mL [facility] Specimen Blood Narrative Performed At Troponin I (TnI) levels must be interpreted [facility] in the context of the [...] disease, and persistent tachyarrhythmia. Performing Organization Address City/[facility]/Zipcode Phone Number [address] [address] [place] Lactic acid, venous, whole blood Daily (11/24/2018 4:03 AM STITCHDOWN THREAD LASTER)Only the most recent of5 resultswithin the time period is included. Lactate, Venous 0.8 0.5 - 2.2 mmol/L [facility] Specimen Blood Performing Organization Address [facility] Phone Number [address] [address] [place] B-type Natriuretic Factor (BNP) (11/24/2018 4:03 AM STITCHDOWN THREAD LASTER)Only the most recent of2 resultswithin the time period is included. BNP 190 (H) 0 - 100 pg/mL [facility] Specimen Blood Performing Organization Address [facility] Phone Number [address] [address] [place] Catheter Tip Culture (11/23/2018 12:54 PM STITCHDOWN THREAD LASTER) Result No growth [facility] Specimen Other Performing Organization Address [facility] Phone Number [address] [address] [place] IR central venous catheter placement (jugular or femoral) (11/23/2018 12:38 PM STITCHDOWN THREAD LASTER) Specimen Narrative Performed At FINAL REPORT [facility] [place] Temporary DialysisCatheter Placement (non tunneled, centrally inserted, [...] MD Report Verified Date/Time:11/23/2018 16:53:15 Reading Location: [facility] B1 P048 Angio Body Reading Room Procedure Note Interface, External Ris In - 11/23/2018 4:55 PM STITCHDOWN THREAD LASTER FINAL REPORT Temporary Dialysis Catheter Placement (non [...] Report Verified Date/Time: 11/23/2018 16:53:15 Reading Location: [place] [address] Angio Body Reading Room Performing Organization Address City/State/Zipcode Phone Number [facility] ECHOCARDIOGRAM REPORT - SCAN (11/23/2018 9:00 AM STITCHDOWN THREAD LASTER) Narrative Performed At Calcium, Ionized (11/23/2018 7:27 AM STITCHDOWN THREAD LASTER)Only the most recent of2 resultswithin the time period is included. Calcium, Ion 1.13 1.12 - 1.27 mmol/L [facility] pH, Blood 7.36 [facility] Specimen Blood Performing Organization Address City/State/Zipcode Phone Number [facility] [address] [place] [address] [place] Lipase (11/23/2018 7:00 AM STITCHDOWN THREAD LASTER) Lipase 12 8 - 78 U/L [facility] Specimen Blood Performing Organization Address City/State/Zipcode Phone Number [facility] [address] [place] [address] [phone] [place] Comprehensive metabolic panel (11/23/2018 7:00 AM STITCHDOWN THREAD LASTER) Protein, Total 6.0 6.0 - 8.3 gm/dL [facility] Albumin 3.0 (L) 3.5 - 5.0 g/dL [facility] Alkaline Phosphatase 248 (H) 40 - 150 U/L [facility] Total Bilirubin 0.8 0.2 - 1.2 mg/dL [facility] Sodium 137 136 - 145 meq/L [facility] Potassium 3.6 3.5 - 5.1 meq/L [facility] Chloride 101 98 - 107 meq/L [facility] CO2 28 22 - 29 meq/L [facility] BUN 26 (H) 7 - 21 mg/dL [facility] Creatinine 4.09 (H) 0.57 - 1.25 mg/dL [facility] Glucose 201 (H) 70 - 105 mg/dL [facility] Calcium 9.3 8.4 - 10.2 mg/dL [facility] AST 39 (H) 5 - 34 U/L [facility] ALT 18 6 - 55 U/L [facility] EGFR 13Comment: ESTIMATED GFR mL/min/1.73 sq m [facility] IS NOT ACCURATE [facility] CREATININE CLEARANCE IN PREDICTING GLOMERULAR FILTRATION RATE. ESTIMATED GFR IS NOT APPLICABLE FOR DIALYSIS PATIENTS. Specimen Blood Performing Organization Address City/State/Zipcode Phone Number [facility] [address] [place] [address] [phone] CENTER US abdomen complete (11/22/2018 6:56 PM STITCHDOWN THREAD LASTER) Specimen Narrative Performed At FINAL REPORT [facility] INDICATION: Septic Shock, ESRD, Dysuria, Abdominal Pain [...] MD Report Verified Date/Time:11/22/2018 20:30:54 Reading Location: [facility] C0[facility] Neuro Reading Room Procedure Note Interface, External Ris In - 11/22/2018 8:33 PM STITCHDOWN THREAD LASTER FINAL REPORT INDICATION: Septic Shock, ESRD, Dysuria, [...] disease Signed: Higinio Palmer MD Report Verified Date/Time: 11/22/2018 20:30:54 Reading Location: [address] Neuro Reading Room Performing Organization Address City/State/Zipcode Phone Number [facility] XR chest 1 view portable / bedside (11/22/2018 4:48 PM STITCHDOWN THREAD LASTER) Specimen Narrative Performed At FINAL REPORT [facility] EXAMINATION: AP PORTABLE CHEST RADIOGRAPH CLINICAL INDICATION: [...] MD Report Verified Date/Time:11/22/2018 17:04:54 Reading Location: [address] Reading Room Procedure Note Interface, External Ris In - 11/22/2018 5:07 PM STITCHDOWN THREAD LASTER FINAL REPORT EXAMINATION: AP PORTABLE CHEST RADIOGRAPH [...] Report Verified Date/Time: 11/22/2018 17:04:54 Reading Location: [address] Reading Room Performing Organization Address City/State/Zipcode Phone Number [facility] [facility] Blood gas, arterial (11/22/2018 4:25 PM STITCHDOWN THREAD LASTER) pH, Arterial 7.37 7.35 - 7.45 [facility] pCO2, Arterial 42 35 - 45 mmHg [facility] pO2, Arterial 123 (H) 80 - 90 mmHg [facility] O2 Sat, Arterial 98.3 (H) 96.0 - 97.0 % [facility] HCO3, Arterial 24 21 - 29 mmol/L [facility] Base Excess, Arterial -1.7 -2.0 - 3.0 mmol/L [facility] Patient Temperature 37.0 C [facility] FIO2 28.0 % [facility] Specimen Blood, Arterial Performing Organization Address City/State/Zipcode Phone Number [facility] [address] [place] [address] [phone] [place] Blood Culture Panel(BioFire) (11/22/2018 4:19 PM STITCHDOWN THREAD LASTER) LISTERIA MONOCYTOGENES Not detected Not detected [facility] STAPHYLOCOCCUS Detected (A) Not detected [facility] STAPHYLOCOCCUS AUREUS Detected (A) Not detected [facility] Comment: [facility] First line therapy: Vancomycin CENTER ID consultation strongly encouraged. Staphylococcus aureus DETECTED MecA DETECTED Reference Range: Not Detected Streptococcus Not detected Not detected [facility] STREPTOCOCCUS AGALACTIAE Not detected Not detected [facility] ([facility]) [facility] STREPTOCOCCUS PNEUMONIAE Not detected Not detected [facility] Streptococcus pyogenes (Group Not detected Not detected [facility] A) [facility] ACINETOBACTER BAUMANNII Not detected Not detected [facility] HAEMOPHILUS INFLUENZAE Not detected Not detected [facility] NEISSERIA MENINGITIDIS Not detected Not detected [facility] ENTEROBACTERIACEAE Not detected Not detected [facility] ENTEROBACTER CLOACOE COMPLEX Not detected Not detected [facility] KLEBSIELLA OXYTOCA Not detected Not detected [facility] KLEBSIELLA PNEUMONIAE Not detected Not detected [facility] PROTEUS Not detected Not detected [facility] SERRATIA MARCESCENS Not detected Not detected [facility] SHRUTHI ALBICANS Not detected Not detected [facility] SHRUTHI GLABRATA Not detected Not detected [facility] SHRUTHI ROMAN Not detected Not detected [facility] SHRUTHI PARAPSILOSIS Not detected Not detected [facility] SHRUTHI TROPICALIS Not detected Not detected [facility] ESCHERICHIA COLI Not detected Not detected [facility] METHICILLIN-RESISTANCE GENE Detected (A) Not detected [facility] VANCOMYCIN-RESISTANCE GENE Not detected [facility] CARBAPENEM-RESISTANCE GENE Not detected [facility] ENTEROCOCCUS Not detected Not detected [facility] PSEUDOMONAS AERUGINOSA Not detected Not detected [facility] Specimen Blood Narrative Performed At Other bacteria and resistance markers not [facility] targeted by this PCR panel cannot be excluded; therefore clinical correlation and follow up of serology, culture results, and other molecular studies is required. The results are not intended to be used as the sole means for clinical diagnosis or patient management decisions. This sample was tested at the [facility] Molecular Diagnostics Laboratory using the [employer] Blood Culture ID Panel. It is FDA cleared and has been verified and approved by the [facility] Molecular Diagnostics Laboratory for clinical use. This laboratory is CLIA-certified and [employer] (CAP)-accredited to perform high complexity testing. Performing Organization Address City/[facility] Cent[facility]ode Phone Number [facility] [address] [place] [address] [phone] CENTER Procalcitonin (11/22/2018 4:19 PM [facility]) Procalcitonin >200.00 (HH) <0.05 ng/mL [facility] Specimen Blood Narrative Performed At SEPSIS RISK (ng/mL) [facility] Low:0.05-0.50 Intermediate: 0.51-2.00 High: >=2.01 Performing Organization Address [facility]/Zipcode Phone Number [facility] [address] [place] [address] [phone] CENTER Manual Differential (11/22/2018 4:19 PM [facility]) % Neutros 85 % [facility] % Lymphs 5 % [facility] % Monos 4 % [facility] % Bands 6 0 - 10 % [facility] # Neutros 22.87 (H) 1.56 - 6.13 K/ul [facility] # Lymphs 1.35 1.18 - 3.74 K/ul [facility] # Monos 1.08 (H) 0.24 - 0.36 K/uL [facility] # Bands 1.61 (H) 0.00 - 0.80 K/uL [facility] Total Counted 100 [facility] WBC Morphology Normal [facility] Platelet Morphology Normal [facility] Polychromasia 3+ many [facility] Anisocytosis 1+ few [facility] Microcytes 1+ few [facility] Poikilocytes 2+ moderate [facility] Tear Drop Cells 1+ few [facility] Florence Cells 1+ few [facility] Artifact Present [facility] Helmet Cells 1+ few [facility] Platelet Conc Adequate [facility] Specimen Blood Narrative Performed At Received comment: [facility] User comments: Slide comments: Performing Organization Address City/[facility]/Zipcode Phone Number [facility] [address] [place] [address] [phone] CENTER TSH/Free T4 If Indicated (11/22/2018 4:19 PM [facility]) TSH 2.43 0.35 - 4.94 uIU/mL [facility] Specimen Blood Performing Organization Address [facility]/Zipcode Phone Number [address] [address] [place] Oxygen saturation, measured (11/22/2018 4:19 PM [facility]) O2 Saturation (Measured) 62.7 % [facility] Specimen Blood Narrative Performed At If patient has internal jugular ( IJ) or [facility] subclavian central line or PICC line. Draw from distal port. Label as central venous oxygen. Performing Organization Address [facility] Cent[facility]odc Phone Number [address] [address] [place] Hepatic function panel (11/22/2018 4:19 PM [facility]) Protein, Total 6.9 6.0 - 8.3 gm/dL [facility] Albumin 3.5 3.5 - 5.0 g/dL [facility] Total Bilirubin 0.9 0.2 - 1.2 mg/dL [facility] Bilirubin, Direct 0.6 (H) 0.1 - 0.5 mg/dL [facility] Alkaline Phosphatase 245 (H) 40 - 150 U/L [facility] AST 51 (H) 5 - 34 U/L [facility] ALT 18 6 - 55 U/L [facility] Specimen Blood Performing Organization Address City/State/Zipcode Phone Number [address] [address] [place] 2D Echo W/Doppler(CW/PW/Color) (11/22/2018 3:51 PM [facility]) Ejection Fraction [facility] Specimen Narrative Performed At Transthoracic Echocardiography Report (TTE) [facility] [employer] Demographics Patient Name ALYSA FLORIAN Date of Study 11/22/2018 [id number] GenderFemale Visit Number [id number] Ricardo [id number] Room Number [id number] Number Date of Birth1955Referring Physician Age63 year(s)Evaporator Helper Josué Mayes InterpretingRose Kothari Physician Fellow Racquel Soto Procedure Type [...] hypokinesis. Estimated LVEF by qualitative assessment is fzozrofsn-at-uwadmjml reduced (30%) . 2. LV filling pressures [...] timated LVEF by qualitative assessment is mo ramlsjy-fx-fhwywvts reduced (30%) . Left AtriumLA size is [...] External Ris In - 11/23/2018 8:09 AM [facility] Transthoracic Echocardiography Report (TTE) Demographics Patient Name ALYSA FLORIAN Date of Study 11/22/2018 Gender Female Visit Number [id number] Race Black Room Number [id number] Number Date of 1955 Referring Physician Age 63 year(s) Evaporator Helper Josué Mayes Interpreting Mari Kothari, Physician Fellow [...] hypokinesis. Estimated LVEF by qualitative assessment is giddjxwot-fq-tvlvesnp reduced (30%) . 2. LV filling pressures [...] hypokinesis. Estimated LVEF by qualitative assessment is tidribusu-ng-bqvxjsin reduced (30%) . Left Atrium LA size [...] Organization Address City/State/Zipcode Phone Number [facility] [employer] after 03/29/2018 Insurance Payer Benefit Plan / Group Subscriber ID Type Phone Address [place] xxxxxxxxx Advance Directives For more information, please contact:[place] [address] [address] [facility] [place] [phone] Code Status Date Activated Date Inactivated Comments Full Code 11/22/2018 3:25 PM This code status was determined by: Patient
--- OUTSIDE RECORDS SUMMARY | 2019-03-30 14:22 | XMS REPORT ---
:1955 [facility] Address [address] [place] [address] Care Team Providers Name Role Phone ARELY [...] Value Reference Range Comments CULTURE (BEAKER) (test hqsm=1674) No growth in 5 days POCT-GLUCOSE [id number] 09:17:00 Test Item Value Reference Range Comments POC-GLUCOSE METER (BEAKER) 110 mg/dL 70-110 TESTED AT [facility] [address] (test srwf=8851) [facility] [address] CBC W/PLT COUNT & AUTO [id number] 07:05:00 Test Item Value Reference Range Comments WHITE BLOOD CELL COUNT (BEAKER) (test tnye=085) 8.2 K/ L 3.5-10.5 RED BLOOD CELL COUNT (BEAKER) (test rhhb=912) 2.79 M/ L 3.93-5.22 HEMOGLOBIN (BEAKER) (test hlbj=743) 7.8 GM/DL 11.2-15.7 HEMATOCRIT (BEAKER) (test sbcy=633) 26.4 % 34.1-44.9 MEAN CORPUSCULAR VOLUME (BEAKER) (test pmyl=243) 94.6 fL 79.4-94.8 MEAN CORPUSCULAR HEMOGLOBIN (BEAKER) (test 28.0 pg 25.6-32.2 cbtt=067) MEAN CORPUSCULAR HEMOGLOBIN CONC (BEAKER) (test 29.5 GM/DL 32.2-35.5 owpn=838) RED CELL DISTRIBUTION WIDTH (BEAKER) (test 14.5 % 11.7-14.4 xybf=360) PLATELET COUNT (BEAKER) (test ljvu=708) 299 K/CU MM 150-450 MEAN PLATELET VOLUME (BEAKER) (test ykhv=794) 10.0 fL 9.4-12.3 NUCLEATED RED BLOOD CELLS (BEAKER) (test 0 /100 WBC 0-0 lugt=092) NEUTROPHILS RELATIVE PERCENT (BEAKER) (test 72 % azad=335) LYMPHOCYTES RELATIVE PERCENT (BEAKER) (test 11 % cpce=841) MONOCYTES RELATIVE PERCENT (BEAKER) (test 10 % inwk=786) EOSINOPHILS RELATIVE PERCENT (BEAKER) (test 5 % qncr=744) BASOPHILS RELATIVE PERCENT (BEAKER) (test 1 % jgyz=847) NEUTROPHILS ABSOLUTE COUNT (BEAKER) (test 5.93 K/ L 1.56-6.13 xadu=385) LYMPHOCYTES ABSOLUTE COUNT (BEAKER) (test 0.87 K/ L 1.18-3.74 qrzy=349) MONOCYTES ABSOLUTE COUNT (BEAKER) (test 0.84 K/ L 0.24-0.36 vcnd=825) EOSINOPHILS ABSOLUTE COUNT (BEAKER) (test 0.44 K/ L 0.04-0.36 yzdo=234) BASOPHILS ABSOLUTE COUNT (BEAKER) (test 0.09 K/ L 0.01-0.08 txcr=893) IMMATURE GRANULOCYTES-RELATIVE PERCENT (BEAKER) 1 % 0-1 (test khes=1913) BASIC METABOLIC [id number] 07:04:00 Test Item Value Reference Range Comments SODIUM (BEAKER) (test 139 meq/L 136-145 pzii=511) POTASSIUM (BEAKER) (test 4.3 meq/L 3.5-5.1 kdrl=225) CHLORIDE (BEAKER) (test 104 meq/L 98-107 afxp=579) CO2 (BEAKER) (test 26 meq/L 22-29 kyzo=085) BLOOD UREA NITROGEN 31 mg/dL 7-21 (BEAKER) (test npos=878) CREATININE (BEAKER) (test 5.39 mg/dL 0.57-1.25 oyed=412) GLUCOSE RANDOM (BEAKER) 83 mg/dL 70-105 (test xtir=411) CALCIUM (BEAKER) (test 9.1 mg/dL 8.4-10.2 imhl=635) EGFR (BEAKER) (test 10 mL/min/1.73 sq m ESTIMATED GFR IS NOT ucxn=8754) ACCURATE CREATININE CLEARANCE IN PREDICTING GLOMERULAR FILTRATION RATE. ESTIMATED GFR IS NOT APPLICABLE FOR DIALYSIS PATIENTS. RAD, ABDOMEN/KUB, 1 VIEW [id number] 04:19:00Reason for exam:->abdominal painFINAL REPORT EXAMINATION: SUPINE [...] Verified Date/ Time: 12/08/2018 04:19:23 Reading Location: [address] Reading Room POCT-GLUCOSE [id number] 21:25:00 Test Item Value Reference Range Comments POC-GLUCOSE METER (BEAKER) 193 mg/dL 70-110 TESTED AT [address] (test eiyk=2555) [facility] [address] POCT-GLUCOSE [id number] 17:52:00 Test Item Value Reference Range Comments POC-GLUCOSE METER (BEAKER) 152 mg/dL 70-110 TESTED AT [address] (test ginl=3847) [facility] [address] POCT-GLUCOSE [id number] 14:15:00 Test Item Value Reference Range Comments POC-GLUCOSE METER (BEAKER) 284 mg/dL 70-110 TESTED AT [address] (test kbmm=0308) [facility] [address] POCT-GLUCOSE [id number] 08:09:00 Test Item Value Reference Range Comments POC-GLUCOSE METER (BEAKER) 185 mg/dL 70-110 TESTED AT [address] (test yadm=6468) [facility] [address] BASIC METABOLIC [id number] 06:30:00 Test Item Value Reference Range Comments SODIUM (BEAKER) (test 137 meq/L 136-145 irfy=485) POTASSIUM (BEAKER) (test 4.2 meq/L 3.5-5.1 riaf=761) CHLORIDE (BEAKER) (test 98 meq/L 98-107 cows=642) CO2 (BEAKER) (test 28 meq/L 22-29 isfb=653) BLOOD UREA NITROGEN 46 mg/dL 7-21 (BEAKER) (test wrsj=532) CREATININE (BEAKER) (test 6.96 mg/dL 0.57-1.25 cfix=141) GLUCOSE RANDOM (BEAKER) 131 mg/dL 70-105 (test hfgv=678) CALCIUM (BEAKER) (test 9.1 mg/dL 8.4-10.2 sgyo=791) EGFR (BEAKER) (test 7 mL/min/1.73 sq m ESTIMATED GFR IS NOT iegs=8415) ACCURATE CREATININE CLEARANCE IN PREDICTING GLOMERULAR FILTRATION RATE. ESTIMATED GFR IS NOT APPLICABLE FOR DIALYSIS PATIENTS. [id number] 06:29:00 Test Item Value Reference Range Comments MAGNESIUM (BEAKER) (test ccgf=161) 2.2 mg/dL 1.6-2.6 CBC W/PLT COUNT & AUTO [id number] 05:57:00 Test Item Value Reference Range Comments WHITE BLOOD CELL COUNT (BEAKER) (test ssch=341) 11.4 K/ L 3.5-10.5 RED BLOOD CELL COUNT (BEAKER) (test abgc=715) 2.56 M/ L 3.93-5.22 HEMOGLOBIN (BEAKER) (test onus=090) 7.2 GM/DL 11.2-15.7 HEMATOCRIT (BEAKER) (test plgr=886) 23.4 % 34.1-44.9 MEAN CORPUSCULAR VOLUME (BEAKER) (test jxnz=864) 91.4 fL 79.4-94.8 MEAN CORPUSCULAR HEMOGLOBIN (BEAKER) (test 28.1 pg 25.6-32.2 ewuy=877) MEAN CORPUSCULAR HEMOGLOBIN CONC (BEAKER) (test 30.8 GM/DL 32.2-35.5 vbco=011) RED CELL DISTRIBUTION WIDTH (BEAKER) (test 14.6 % 11.7-14.4 oplj=770) PLATELET COUNT (BEAKER) (test xaey=292) 246 K/CU MM 150-450 MEAN PLATELET VOLUME (BEAKER) (test hiuk=569) 9.8 fL 9.4-12.3 NUCLEATED RED BLOOD CELLS (BEAKER) (test 0 /100 WBC 0-0 ctmb=645) NEUTROPHILS RELATIVE PERCENT (BEAKER) (test 82 % tpsc=250) LYMPHOCYTES RELATIVE PERCENT (BEAKER) (test 6 % ybdz=670) MONOCYTES RELATIVE PERCENT (BEAKER) (test 8 % ldlu=676) EOSINOPHILS RELATIVE PERCENT (BEAKER) (test 3 % efcb=937) BASOPHILS RELATIVE PERCENT (BEAKER) (test 1 % furm=974) NEUTROPHILS ABSOLUTE COUNT (BEAKER) (test 9.41 K/ L 1.56-6.13 ogbl=797) LYMPHOCYTES ABSOLUTE COUNT (BEAKER) (test 0.70 K/ L 1.18-3.74 znwi=012) MONOCYTES ABSOLUTE COUNT (BEAKER) (test 0.89 K/ L 0.24-0.36 clcf=771) EOSINOPHILS ABSOLUTE COUNT (BEAKER) (test 0.31 K/ L 0.04-0.36 lrne=308) BASOPHILS ABSOLUTE COUNT (BEAKER) (test 0.06 K/ L 0.01-0.08 koji=817) IMMATURE GRANULOCYTES-RELATIVE PERCENT (BEAKER) 1 % 0-1 (test jafj=0472) POCT-GLUCOSE [id number] 21:35:00 Test Item Value Reference Range Comments POC-GLUCOSE METER (BEAKER) 249 mg/dL 70-110 TESTED AT [place] [id number] (test crgs=8485) [facility] [address] POCT-GLUCOSE [id number] 17:49:00 Test Item Value Reference Range Comments POC-GLUCOSE METER (BEAKER) 168 mg/dL 70-110 TESTED AT [place] [id number] (test banm=2602) [facility] [address] MYOCARD IMAGING, MULTI, PHARM, [id number] 16:00:00FINAL REPORT PROCEDURE: Rest/Stress MYOCARDIAL PERFUSION SPECT with regadenoson\\XA9\\ CPT CODE: 13523 INDICATION: New onset heart failure, intermediate risk [...] MDReport Verified Date/Time: 12/06/2018 16:00:51 Reading Location: [address] [address] Reading Room Electronically signed by: DARIANA JONES MD on 2018 04:00 PMANG, TUNNELED CATHETER [id number] 14:29:00Reason for exam :->Tunneled cath for dialysisFINAL [...] Verified Date/Time: 12/06/2018 14:29:30 Reading Location : [address] Body Reading Room POCT-GLUCOSE [id number] 12:31:00 Test Item Value Reference Range Comments POC-GLUCOSE METER (BEAKER) 187 mg/dL 70-110 TESTED AT [address] (test bkwq=8548) [facility] [address] POCT-GLUCOSE [id number] 11:21:00 Test Item Value Reference Range Comments POC-GLUCOSE METER (BEAKER) 165 mg/dL 70-110 TESTED AT [facility] [address] (test tlgj=3461) [facility] [address] POCT-GLUCOSE [id number] 06:17:00 Test Item Value Reference Range Comments POC-GLUCOSE METER (BEAKER) 108 mg/dL 70-110 TESTED AT [facility] [address] (test sjsq=6199) [facility] [address] VANCOMYCIN LEVEL, [id number] 02:03:00 Test Item Value Reference Range Comments VANCOMYCIN RANDOM (BEAKER) (test kxph=837) 18.7 ug/mL Reference Range: No NormalsCBC W/PLT COUNT & AUTO [id number] 01: 48:00 Test Item Value Reference Range Comments WHITE BLOOD CELL COUNT (BEAKER) (test slha=887) 12.1 K/ L 3.5-10.5 RED BLOOD CELL COUNT (BEAKER) (test nccb=164) 2.76 M/ L 3.93-5.22 HEMOGLOBIN (BEAKER) (test aqfn=887) 7.7 GM/DL 11.2-15.7 HEMATOCRIT (BEAKER) (test msia=886) 25.1 % 34.1-44.9 MEAN CORPUSCULAR VOLUME (BEAKER) (test ufyp=608) 90.9 fL 79.4-94.8 MEAN CORPUSCULAR HEMOGLOBIN (BEAKER) (test 27.9 pg 25.6-32.2 ahfd=343) MEAN CORPUSCULAR HEMOGLOBIN CONC (BEAKER) (test 30.7 GM/DL 32.2-35.5 dyey=805) RED CELL DISTRIBUTION WIDTH (BEAKER) (test 14.6 % 11.7-14.4 kbba=092) PLATELET COUNT (BEAKER) (test afbu=511) 231 K/CU MM 150-450 MEAN PLATELET VOLUME (BEAKER) (test lhgx=584) 10.0 fL 9.4-12.3 NUCLEATED RED BLOOD CELLS (BEAKER) (test 0 /100 WBC 0-0 xtna=844) NEUTROPHILS RELATIVE PERCENT (BEAKER) (test 84 % givu=484) LYMPHOCYTES RELATIVE PERCENT (BEAKER) (test 7 % eljw=793) MONOCYTES RELATIVE PERCENT (BEAKER) (test 6 % kzbz=849) EOSINOPHILS RELATIVE PERCENT (BEAKER) (test 2 % cagn=471) BASOPHILS RELATIVE PERCENT (BEAKER) (test 1 % jpvz=613) NEUTROPHILS ABSOLUTE COUNT (BEAKER) (test 10.17 K/ L 1.56-6.13 filk=102) LYMPHOCYTES ABSOLUTE COUNT (BEAKER) (test 0.79 K/ L 1.18-3.74 kbfz=759) MONOCYTES ABSOLUTE COUNT (BEAKER) (test 0.73 K/ L 0.24-0.36 ewih=574) EOSINOPHILS ABSOLUTE COUNT (BEAKER) (test 0.24 K/ L 0.04-0.36 bxzb=272) BASOPHILS ABSOLUTE COUNT (BEAKER) (test 0.08 K/ L 0.01-0.08 hclj=813) IMMATURE GRANULOCYTES-RELATIVE PERCENT (BEAKER) 0 % 0-1 (test fmud=7942) BASIC METABOLIC [id number] 01:43:00 Test Item Value Reference Range Comments SODIUM (BEAKER) (test 136 meq/L 136-145 dikn=619) POTASSIUM (BEAKER) (test 4.2 meq/L 3.5-5.1 pjgm=702) CHLORIDE (BEAKER) (test 99 meq/L 98-107 pslu=321) CO2 (BEAKER) (test 27 meq/L 22-29 mjej=159) BLOOD UREA NITROGEN 29 mg/dL 7-21 (BEAKER) (test qewz=552) CREATININE (BEAKER) (test 5.09 mg/dL 0.57-1.25 wuli=653) GLUCOSE RANDOM (BEAKER) 110 mg/dL 70-105 (test hbbr=553) CALCIUM (BEAKER) (test 9.0 mg/dL 8.4-10.2 nzqa=880) EGFR (BEAKER) (test 10 mL/min/1.73 sq m ESTIMATED GFR IS NOT ezss=1039) ACCURATE CREATININE CLEARANCE IN PREDICTING GLOMERULAR FILTRATION RATE. ESTIMATED GFR IS NOT APPLICABLE FOR DIALYSIS PATIENTS. [id number] 01:34:00 Test Item Value Reference Range Comments PARTIAL THROMBOPLASTIN TIME (BEAKER) (test 85.3 seconds 22.5-36.0 nmlr=603) POCT-GLUCOSE [id number] 21:26:00 Test Item Value Reference Range Comments POC-GLUCOSE METER (BEAKER) 154 mg/dL 70-110 TESTED AT [address] (test duro=5078) [facility] [address] POCT-GLUCOSE [id number] 16:29:00 Test Item Value Reference Range Comments POC-GLUCOSE METER (BEAKER) 121 mg/dL 70-110 TESTED AT [address] (test sxqe=6575) [facility] [address] POCT-GLUCOSE [id number] 16:26:00 Test Item Value Reference Range Comments POC-GLUCOSE METER (BEAKER) 119 mg/dL 70-110 TESTED AT [address] (test ifsc=5440) [facility] [address] [id number] 08:47:00 Test Item Value Reference Range Comments PARTIAL THROMBOPLASTIN TIME (BEAKER) (test 85.2 seconds 22.5-36.0 syfr=552) BASIC METABOLIC [id number] 08:29:00 Test Item Value Reference Range Comments SODIUM (BEAKER) (test 133 meq/L 136-145 emye=051) POTASSIUM (BEAKER) (test 4.7 meq/L 3.5-5.1 nzhm=626) CHLORIDE (BEAKER) (test 93 meq/L 98-107 vcks=487) CO2 (BEAKER) (test 24 meq/L 22-29 mjoc=994) BLOOD UREA NITROGEN 64 mg/dL 7-21 (BEAKER) (test mits=280) CREATININE (BEAKER) (test 8.39 mg/dL 0.57-1.25 lbok=661) GLUCOSE RANDOM (BEAKER) 117 mg/dL 70-105 (test zwnp=345) CALCIUM (BEAKER) (test 8.7 mg/dL 8.4-10.2 gxwt=922) EGFR (BEAKER) (test 6 mL/min/1.73 sq m ESTIMATED GFR IS NOT casj=4997) ACCURATE CREATININE CLEARANCE IN PREDICTING GLOMERULAR FILTRATION RATE. ESTIMATED GFR IS NOT APPLICABLE FOR DIALYSIS PATIENTS. CBC W/PLT COUNT & AUTO [id number] 08:25:00 Test Item Value Reference Range Comments WHITE BLOOD CELL COUNT (BEAKER) (test opav=374) 15.1 K/ L 3.5-10.5 RED BLOOD CELL COUNT (BEAKER) (test hatq=390) 2.84 M/ L 3.93-5.22 HEMOGLOBIN (BEAKER) (test dfof=615) 7.8 GM/DL 11.2-15.7 HEMATOCRIT (BEAKER) (test cjgl=099) 25.8 % 34.1-44.9 MEAN CORPUSCULAR VOLUME (BEAKER) (test eltq=163) 90.8 fL 79.4-94.8 MEAN CORPUSCULAR HEMOGLOBIN (BEAKER) (test 27.5 pg 25.6-32.2 wxri=804) MEAN CORPUSCULAR HEMOGLOBIN CONC (BEAKER) (test 30.2 GM/DL 32.2-35.5 ymly=734) RED CELL DISTRIBUTION WIDTH (BEAKER) (test 14.7 % 11.7-14.4 jpvt=611) PLATELET COUNT (BEAKER) (test qoky=436) 258 K/CU MM 150-450 MEAN PLATELET VOLUME (BEAKER) (test hmsj=385) 10.4 fL 9.4-12.3 NUCLEATED RED BLOOD CELLS (BEAKER) (test 0 /100 WBC 0-0 hmny=539) NEUTROPHILS RELATIVE PERCENT (BEAKER) (test 83 % ajiw=397) LYMPHOCYTES RELATIVE PERCENT (BEAKER) (test 8 % ppgn=605) MONOCYTES RELATIVE PERCENT (BEAKER) (test 6 % woto=806) EOSINOPHILS RELATIVE PERCENT (BEAKER) (test 2 % llix=895) BASOPHILS RELATIVE PERCENT (BEAKER) (test 1 % rijk=904) NEUTROPHILS ABSOLUTE COUNT (BEAKER) (test 12.58 K/ L 1.56-6.13 cmuk=223) LYMPHOCYTES ABSOLUTE COUNT (BEAKER) (test 1.18 K/ L 1.18-3.74 wxdj=951) MONOCYTES ABSOLUTE COUNT (BEAKER) (test 0.87 K/ L 0.24-0.36 jyxd=743) EOSINOPHILS ABSOLUTE COUNT (BEAKER) (test 0.30 K/ L 0.04-0.36 rwtb=044) BASOPHILS ABSOLUTE COUNT (BEAKER) (test 0.08 K/ L 0.01-0.08 mzoo=127) IMMATURE GRANULOCYTES-RELATIVE PERCENT (BEAKER) 1 % 0-1 (test gkrd=2071) [id number] 23:58:00 Test Item Value Reference Range Comments PARTIAL THROMBOPLASTIN TIME (BEAKER) (test 92.6 seconds 22.5-36.0 jpgb=564) POCT-GLUCOSE [id number] 20:54:00 Test Item Value Reference Range Comments POC-GLUCOSE METER (BEAKER) 151 mg/dL 70-110 TESTED AT [address] (test oveg=0266) [facility] [address] POCT-GLUCOSE [id number] 17:04:00 Test Item Value Reference Range Comments POC-GLUCOSE METER (BEAKER) 158 mg/dL 70-110 TESTED AT [address] (test iwan=6405) [place] [address] [id number] 16:25:00 Test Item Value Reference Range Comments PARTIAL THROMBOPLASTIN TIME (BEAKER) (test 75.9 seconds 22.5-36.0 sdra=597) POCT-GLUCOSE [id number] 12:34:00 Test Item Value Reference Range Comments POC-GLUCOSE METER (BEAKER) 183 mg/dL 70-110 TESTED AT [address] (test ylvk=4113) [place] [id number] POCT-GLUCOSE [id number] 12:00:00 Test Item Value Reference Range Comments POC-GLUCOSE METER (BEAKER) 175 mg/dL 70-110 TESTED AT [address] (test xscj=8915) [place] [id number] 10:17:00 Test Item Value Reference Range Comments PARTIAL THROMBOPLASTIN TIME (BEAKER) (test 32.1 seconds 22.5-36.0 nnim=188) Prior to initiating heparinBASIC METABOLIC [id number] 08:20:00 Test Item Value Reference Range Comments SODIUM (BEAKER) (test 134 meq/L 136-145 ezul=446) POTASSIUM (BEAKER) (test 4.3 meq/L 3.5-5.1 ecga=974) CHLORIDE (BEAKER) (test 98 meq/L 98-107 usyg=451) CO2 (BEAKER) (test 26 meq/L 22-29 umcd=286) BLOOD UREA NITROGEN 48 mg/dL 7-21 (BEAKER) (test tfdh=850) CREATININE (BEAKER) (test 6.48 mg/dL 0.57-1.25 tozh=498) GLUCOSE RANDOM (BEAKER) 124 mg/dL 70-105 (test rrze=457) CALCIUM (BEAKER) (test 9.2 mg/dL 8.4-10.2 rqts=007) EGFR (BEAKER) (test 8 mL/min/1.73 sq m ESTIMATED GFR IS NOT ubiw=6643) ACCURATE CREATININE CLEARANCE IN PREDICTING GLOMERULAR FILTRATION RATE. ESTIMATED GFR IS NOT APPLICABLE FOR DIALYSIS PATIENTS. VANCOMYCIN LEVEL, [id number] 08:06:00 Test Item Value Reference Range Comments VANCOMYCIN RANDOM (BEAKER) (test dokz=678) 28.6 ug/mL Reference Range: No NormalsCBC W/PLT COUNT & AUTO [id number] 07: 14:00 Test Item Value Reference Range Comments WHITE BLOOD CELL COUNT (BEAKER) (test dxpi=339) 13.3 K/ L 3.5-10.5 RED BLOOD CELL COUNT (BEAKER) (test gdvt=670) 2.89 M/ L 3.93-5.22 HEMOGLOBIN (BEAKER) (test prla=667) 7.9 GM/DL 11.2-15.7 HEMATOCRIT (BEAKER) (test kjuv=297) 26.4 % 34.1-44.9 MEAN CORPUSCULAR VOLUME (BEAKER) (test tdhf=470) 91.3 fL 79.4-94.8 MEAN CORPUSCULAR HEMOGLOBIN (BEAKER) (test 27.3 pg 25.6-32.2 avgo=242) MEAN CORPUSCULAR HEMOGLOBIN CONC (BEAKER) (test 29.9 GM/DL 32.2-35.5 hcvq=286) RED CELL DISTRIBUTION WIDTH (BEAKER) (test 15.2 % 11.7-14.4 tywc=062) PLATELET COUNT (BEAKER) (test pfap=849) 242 K/CU MM 150-450 MEAN PLATELET VOLUME (BEAKER) (test lqkf=548) 10.2 fL 9.4-12.3 NUCLEATED RED BLOOD CELLS (BEAKER) (test 0 /100 WBC 0-0 dedm=731) NEUTROPHILS RELATIVE PERCENT (BEAKER) (test 82 % uyvk=491) LYMPHOCYTES RELATIVE PERCENT (BEAKER) (test 8 % lwoy=039) MONOCYTES RELATIVE PERCENT (BEAKER) (test 6 % gwbr=222) EOSINOPHILS RELATIVE PERCENT (BEAKER) (test 2 % duzq=625) BASOPHILS RELATIVE PERCENT (BEAKER) (test 1 % zume=042) NEUTROPHILS ABSOLUTE COUNT (BEAKER) (test 10.92 K/ L 1.56-6.13 bmdm=277) LYMPHOCYTES ABSOLUTE COUNT (BEAKER) (test 1.06 K/ L 1.18-3.74 rbph=872) MONOCYTES ABSOLUTE COUNT (BEAKER) (test 0.84 K/ L 0.24-0.36 iods=496) EOSINOPHILS ABSOLUTE COUNT (BEAKER) (test 0.31 K/ L 0.04-0.36 xizo=123) BASOPHILS ABSOLUTE COUNT (BEAKER) (test 0.08 K/ L 0.01-0.08 gpte=625) IMMATURE GRANULOCYTES-RELATIVE PERCENT (BEAKER) 1 % 0-1 (test mvjc=6139) POCT-GLUCOSE [id number] 21:22:00 Test Item Value Reference Range Comments POC-GLUCOSE METER (BEAKER) 209 mg/dL 70-110 TESTED AT [address] (test abaw=2023) [place] [address] POCT-GLUCOSE [id number] 17:40:00 Test Item Value Reference Range Comments POC-GLUCOSE METER (BEAKER) 213 mg/dL 70-110 TESTED AT [address] (test elsb=7986) [place] [address] POCT-GLUCOSE [id number] 12:28:00 Test Item Value Reference Range Comments POC-GLUCOSE METER (BEAKER) 298 mg/dL 70-110 TESTED AT [address] (test rszm=9983) [place] [address] BLOOD [id number] 11:01:00 Test Item Value Reference Range Comments CULTURE (AKER) (test xtsl=3991) No growth in 5 days POCT-GLUCOSE [id number] 08:43:00 Test Item Value Reference Range Comments POC-GLUCOSE METER (BEAKER) 147 mg/dL 70-110 TESTED AT [address] (test nmeh=1928) [place] [address] CBC W/PLT COUNT & AUTO [id number] 07:17:00 Test Item Value Reference Range Comments WHITE BLOOD CELL COUNT (BEAKER) (test dtnh=695) 12.1 K/ L 3.5-10.5 RED BLOOD CELL COUNT (BEAKER) (test fmwx=509) 2.54 M/ L 3.93-5.22 HEMOGLOBIN (BEAKER) (test rudo=065) 6.9 GM/DL 11.2-15.7 HEMATOCRIT (BEAKER) (test hqdl=596) 24.0 % 34.1-44.9 MEAN CORPUSCULAR VOLUME (BEAKER) (test znsy=773) 94.5 fL 79.4-94.8 MEAN CORPUSCULAR HEMOGLOBIN (BEAKER) (test 27.2 pg 25.6-32.2 bzuu=773) MEAN CORPUSCULAR HEMOGLOBIN CONC (BEAKER) (test 28.8 GM/DL 32.2-35.5 qayk=075) RED CELL DISTRIBUTION WIDTH (BEAKER) (test 14.9 % 11.7-14.4 fvsh=499) PLATELET COUNT (BEAKER) (test tnfk=526) 253 K/CU MM 150-450 MEAN PLATELET VOLUME (BEAKER) (test ezht=896) 10.0 fL 9.4-12.3 NUCLEATED RED BLOOD CELLS (BEAKER) (test 0 /100 WBC 0-0 mlve=309) NEUTROPHILS RELATIVE PERCENT (BEAKER) (test 83 % ghfj=269) LYMPHOCYTES RELATIVE PERCENT (BEAKER) (test 7 % vpaw=529) MONOCYTES RELATIVE PERCENT (BEAKER) (test 6 % yrfn=732) EOSINOPHILS RELATIVE PERCENT (BEAKER) (test 3 % hzcy=138) BASOPHILS RELATIVE PERCENT (BEAKER) (test 1 % lhfm=522) NEUTROPHILS ABSOLUTE COUNT (BEAKER) (test 10.04 K/ L 1.56-6.13 zbvu=148) LYMPHOCYTES ABSOLUTE COUNT (BEAKER) (test 0.88 K/ L 1.18-3.74 ivix=578) MONOCYTES ABSOLUTE COUNT (BEAKER) (test 0.66 K/ L 0.24-0.36 wpcp=140) EOSINOPHILS ABSOLUTE COUNT (BEAKER) (test 0.34 K/ L 0.04-0.36 qyzc=568) BASOPHILS ABSOLUTE COUNT (BEAKER) (test 0.09 K/ L 0.01-0.08 jalq=053) IMMATURE GRANULOCYTES-RELATIVE PERCENT (BEAKER) 1 % 0-1 (test pann=4993) BASIC METABOLIC [id number] 07:02:00 Test Item Value Reference Range Comments SODIUM (BEAKER) (test 134 meq/L 136-145 zjzs=910) POTASSIUM (BEAKER) (test 4.2 meq/L 3.5-5.1 Specimen slightly cmqv=754) hemolyzed CHLORIDE (BEAKER) (test 99 meq/L 98-107 bbvf=302) CO2 (BEAKER) (test 25 meq/L 22-29 yaxq=060) BLOOD UREA NITROGEN 29 mg/dL 7-21 (BEAKER) (test gnqh=777) CREATININE (BEAKER) (test 4.76 mg/dL 0.57-1.25 Specimen slightly dkbm=055) hemolyzed GLUCOSE RANDOM (BEAKER) 116 mg/dL 70-105 (test gyru=536) CALCIUM (BEAKER) (test 8.6 mg/dL 8.4-10.2 zgjp=474) EGFR (BEAKER) (test 11 mL/min/1.73 sq m ESTIMATED GFR IS NOT neqi=4884) ACCURATE CREATININE CLEARANCE IN PREDICTING GLOMERULAR FILTRATION RATE. ESTIMATED GFR IS NOT APPLICABLE FOR DIALYSIS PATIENTS. BLOOD [id number] 11:01:00 Test Item Value Reference Range Comments CULTURE (BEAKER) (test hafu=2166) No growth in 5 days MR, EXTREMITY, LOWER, JOINT, WITHOUT CONTRAST, [id number] 09:05:00Reason for exam:->For hip painFINAL REPORT Indication: [...] MDReport Verified Date/Time: 12/02/2018 09:05:25 Reading Location: [facility] B1 [id number] Ortho Consult Reading Room Electronically signed by: JAYSON SHORT M.D. on 2018 09:05 AMHEMOGLOBIN AND [id number] 08:39:00 Test Item Value Reference Range Comments HEMOGLOBIN (BEAKER) (test lxco=012) 7.2 GM/DL 11.2-15.7 HEMATOCRIT (BEAKER) (test ygpx=083) 24.1 % 34.1-44.9 POCT-GLUCOSE [id number] 07:54:00 Test Item Value Reference Range Comments POC-GLUCOSE METER (BEAKER) 186 mg/dL 70-110 TESTED AT [facility] [address] (test oaia=9595) [facility] [address] CBC W/PLT COUNT & AUTO [id number] 07:22:00 Test Item Value Reference Range Comments WHITE BLOOD CELL COUNT (BEAKER) (test hajf=626) 13.3 K/ L 3.5-10.5 RED BLOOD CELL COUNT (BEAKER) (test xocu=678) 2.47 M/ L 3.93-5.22 HEMOGLOBIN (BEAKER) (test ljys=365) 6.8 GM/DL 11.2-15.7 HEMATOCRIT (BEAKER) (test pwiw=086) 23.2 % 34.1-44.9 MEAN CORPUSCULAR VOLUME (BEAKER) (test xyjs=430) 93.9 fL 79.4-94.8 MEAN CORPUSCULAR HEMOGLOBIN (BEAKER) (test 27.5 pg 25.6-32.2 ercc=562) MEAN CORPUSCULAR HEMOGLOBIN CONC (BEAKER) (test 29.3 GM/DL 32.2-35.5 wpkx=701) RED CELL DISTRIBUTION WIDTH (BEAKER) (test 15.2 % 11.7-14.4 nzsu=373) PLATELET COUNT (BEAKER) (test kzrn=304) 304 K/CU MM 150-450 MEAN PLATELET VOLUME (BEAKER) (test gnwv=880) 9.9 fL 9.4-12.3 NUCLEATED RED BLOOD CELLS (BEAKER) (test 0 /100 WBC 0-0 fxaq=972) NEUTROPHILS RELATIVE PERCENT (BEAKER) (test 84 % vzjs=528) LYMPHOCYTES RELATIVE PERCENT (BEAKER) (test 7 % gegc=847) MONOCYTES RELATIVE PERCENT (BEAKER) (test 5 % urea=446) EOSINOPHILS RELATIVE PERCENT (BEAKER) (test 3 % wanf=071) BASOPHILS RELATIVE PERCENT (BEAKER) (test 0 % fbbh=066) NEUTROPHILS ABSOLUTE COUNT (BEAKER) (test 11.17 K/ L 1.56-6.13 hfoj=685) LYMPHOCYTES ABSOLUTE COUNT (BEAKER) (test 0.95 K/ L 1.18-3.74 zzti=453) MONOCYTES ABSOLUTE COUNT (BEAKER) (test 0.70 K/ L 0.24-0.36 delu=545) EOSINOPHILS ABSOLUTE COUNT (BEAKER) (test 0.37 K/ L 0.04-0.36 vcpn=037) BASOPHILS ABSOLUTE COUNT (BEAKER) (test 0.04 K/ L 0.01-0.08 qdhn=489) IMMATURE GRANULOCYTES-RELATIVE PERCENT (BEAKER) 1 % 0-1 (test urxv=0047) POCT-GLUCOSE [id number] 07:10:00 Test Item Value Reference Range Comments POC-GLUCOSE METER (BEAKER) 177 mg/dL 70-110 TESTED AT [facility] [address] (test nwpe=9532) [facility] [address] BASIC METABOLIC [id number] 06:52:00 Test Item Value Reference Range Comments SODIUM (BEAKER) (test 137 meq/L 136-145 ydlo=183) POTASSIUM (BEAKER) (test 4.0 meq/L 3.5-5.1 yuzc=917) CHLORIDE (BEAKER) (test 97 meq/L 98-107 goya=442) CO2 (BEAKER) (test 30 meq/L 22-29 juxi=326) BLOOD UREA NITROGEN 46 mg/dL 7-21 (BEAKER) (test arob=067) CREATININE (BEAKER) (test 6.47 mg/dL 0.57-1.25 trkk=704) GLUCOSE RANDOM (BEAKER) 148 mg/dL 70-105 (test qxig=366) CALCIUM (BEAKER) (test 9.1 mg/dL 8.4-10.2 nngc=032) EGFR (BEAKER) (test 8 mL/min/1.73 sq m ESTIMATED GFR IS NOT mjpo=3079) ACCURATE CREATININE CLEARANCE IN PREDICTING GLOMERULAR FILTRATION RATE. ESTIMATED GFR IS NOT APPLICABLE FOR DIALYSIS PATIENTS. VANCOMYCIN LEVEL, [id number] 06:43:00 Test Item Value Reference Range Comments VANCOMYCIN RANDOM (BEAKER) (test megh=069) 19.0 ug/mL Reference Range: No [id number] 06:25:00 Test Item Value Reference Range Comments PROTIME (BEAKER) (test siov=107) 14.1 seconds 11.7-14.7 INR (BEAKER) (test qcza=691) 1.1 <=5.9 PARTIAL THROMBOPLASTIN TIME (BEAKER) (test 39.6 seconds 22.5-36.0 yajw=658) RECOMMENDED COUMADIN/WARFARIN INR THERAPY RANGESSTANDARD DOSE: 2.0 - 3.0 Includes: PROPHYLAXIS forvenous thrombosis, systemic embolization; TREATMENT for venous thrombosis and/or pulmonary embolus.HIGH RISK: Target INR is 2.5-3.5 for patients with mechanical heart valves.POCT-GLUCOSE [id number] 23:37:00 Test Item Value Reference Range Comments POC-GLUCOSE METER (BEAKER) 258 mg/dL 70-110 TESTED AT [address] (test ziwp=1837) [place] [address] POCT-GLUCOSE [id number] 12:31:00 Test Item Value Reference Range Comments POC-GLUCOSE METER (BEAKER) 184 mg/dL 70-110 TESTED AT [address] (test zviv=7754) [place] [address] BASIC METABOLIC [id number] 12:27:00 Test Item Value Reference Range Comments SODIUM (BEAKER) (test 136 meq/L 136-145 hbus=834) POTASSIUM (BEAKER) (test 4.0 meq/L 3.5-5.1 caga=547) CHLORIDE (BEAKER) (test 99 meq/L 98-107 rbgp=935) CO2 (BEAKER) (test 26 meq/L 22-29 bixa=157) BLOOD UREA NITROGEN 29 mg/dL 7-21 (BEAKER) (test bfeh=013) CREATININE (BEAKER) (test 4.92 mg/dL 0.57-1.25 zbex=497) GLUCOSE RANDOM (BEAKER) 129 mg/dL 70-105 (test gjlk=388) CALCIUM (BEAKER) (test 9.0 mg/dL 8.4-10.2 cvmb=341) EGFR (BEAKER) (test 11 mL/min/1.73 sq m ESTIMATED GFR IS NOT rnmf=7580) ACCURATE CREATININE CLEARANCE IN PREDICTING GLOMERULAR FILTRATION RATE. ESTIMATED GFR IS NOT APPLICABLE FOR DIALYSIS PATIENTS. CBC W/PLT COUNT & AUTO [id number] 12:20:00 Test Item Value Reference Range Comments WHITE BLOOD CELL COUNT (BEAKER) (test vrpw=537) 14.6 K/ L 3.5-10.5 RED BLOOD CELL COUNT (BEAKER) (test ftig=954) 2.69 M/ L 3.93-5.22 HEMOGLOBIN (BEAKER) (test xewu=674) 7.4 GM/DL 11.2-15.7 HEMATOCRIT (BEAKER) (test maxm=058) 25.1 % 34.1-44.9 MEAN CORPUSCULAR VOLUME (BEAKER) (test mrrk=994) 93.3 fL 79.4-94.8 MEAN CORPUSCULAR HEMOGLOBIN (BEAKER) (test 27.5 pg 25.6-32.2 mvzu=707) MEAN CORPUSCULAR HEMOGLOBIN CONC (BEAKER) (test 29.5 GM/DL 32.2-35.5 hlnf=434) RED CELL DISTRIBUTION WIDTH (BEAKER) (test 15.5 % 11.7-14.4 vevv=800) PLATELET COUNT (BEAKER) (test ixon=377) 295 K/CU MM 150-450 MEAN PLATELET VOLUME (BEAKER) (test odxx=049) 9.8 fL 9.4-12.3 NUCLEATED RED BLOOD CELLS (BEAKER) (test 0 /100 WBC 0-0 tyjn=321) NEUTROPHILS RELATIVE PERCENT (BEAKER) (test 83 % tizh=188) LYMPHOCYTES RELATIVE PERCENT (BEAKER) (test 8 % fabl=025) MONOCYTES RELATIVE PERCENT (BEAKER) (test 6 % piqh=987) EOSINOPHILS RELATIVE PERCENT (BEAKER) (test 2 % tltj=352) BASOPHILS RELATIVE PERCENT (BEAKER) (test 1 % usat=754) NEUTROPHILS ABSOLUTE COUNT (BEAKER) (test 12.12 K/ L 1.56-6.13 fwjb=565) LYMPHOCYTES ABSOLUTE COUNT (BEAKER) (test 1.19 K/ L 1.18-3.74 lcmd=139) MONOCYTES ABSOLUTE COUNT (BEAKER) (test 0.81 K/ L 0.24-0.36 xbxd=759) EOSINOPHILS ABSOLUTE COUNT (BEAKER) (test 0.31 K/ L 0.04-0.36 vvvr=403) BASOPHILS ABSOLUTE COUNT (BEAKER) (test 0.07 K/ L 0.01-0.08 ccph=564) IMMATURE GRANULOCYTES-RELATIVE PERCENT (BEAKER) 1 % 0-1 (test fnqj=1217) RAD, HIP, 1 VIEW, [id number] 11:34:00Reason for exam:->R hip painShould this be [...] MDReport Verified Date/Time: 2018 11:34:51 Reading Location: [facility] Radiology Reading Room POCT- GLUCOSE [id number] 08:01:00 Test Item Value Reference Range Comments POC-GLUCOSE METER (FARRAH) 189 mg/dL 70-110 TESTED AT [facility] [address] (test gpxl=3813) [facility] [address] VANCOMYCIN LEVEL, [id number] 06:44:00 Test Item Value Reference Range Comments VANCOMYCIN RANDOM (BEAKER) (test xbrv=845) 19.8 ug/mL Reference Range: No NormalsGENTAMICIN LEVEL, [id number] 21:58:00 Test Item Value Reference Range Comments GENTAMICIN TROUGH (BEAKER) (test cuar=141) 1.5 ug/mL 0.5-1.0 Dosing Target Level (mcg/mL)1-1.5 mg/kg q 8-12 HR 0.5- 1.03-7 mg/kg q 24 HR <0.5Before gent dosePOCT-GLUCOSE [id number] 20:39:00 Test Item Value Reference Range Comments POC-GLUCOSE METER (BEAKER) 229 mg/dL 70-110 TESTED AT [address] (test oepl=2098) [facility] [address] POCT-GLUCOSE [id number] 20:02:00 Test Item Value Reference Range Comments POC-GLUCOSE METER (BEAKER) 251 mg/dL 70-110 TESTED AT [address] (test elxq=6626) [facility] [address] POCT-GLUCOSE [id number] 13:49:00 Test Item Value Reference Range Comments POC-GLUCOSE METER (BEAKER) 211 mg/dL 70-110 TESTED AT [address] (test nzkg=9630) [place] [id number] POCT-GLUCOSE [id number] 08:02:00 Test Item Value Reference Range Comments POC-GLUCOSE METER (BEAKER) 182 mg/dL 70-110 TESTED AT [address] (test smcx=9505) [facility] [address] BASIC METABOLIC [id number] 07:28:00 Test Item Value Reference Range Comments SODIUM (BEAKER) (test 138 meq/L 136-145 wffo=810) POTASSIUM (BEAKER) (test 4.1 meq/L 3.5-5.1 xrjv=038) CHLORIDE (BEAKER) (test 101 meq/L 98-107 khts=325) CO2 (BEAKER) (test 26 meq/L 22-29 blft=238) BLOOD UREA NITROGEN 42 mg/dL 7-21 (BEAKER) (test mico=627) CREATININE (BEAKER) (test 6.85 mg/dL 0.57-1.25 surk=131) GLUCOSE RANDOM (BEAKER) 138 mg/dL 70-105 (test ynqr=260) CALCIUM (BEAKER) (test 8.9 mg/dL 8.4-10.2 koti=686) EGFR (BEAKER) (test 7 mL/min/1.73 sq m ESTIMATED GFR IS NOT vdwb=2454) ACCURATE CREATININE CLEARANCE IN PREDICTING GLOMERULAR FILTRATION RATE. ESTIMATED GFR IS NOT APPLICABLE FOR DIALYSIS PATIENTS. VANCOMYCIN LEVEL, [id number] 07:07:00 Test Item Value Reference Range Comments VANCOMYCIN RANDOM (BEAKER) (test dmmp=021) 25.1 ug/mL Reference Range: No NormalsCBC W/PLT COUNT & AUTO [id number] 07: 02:00 Test Item Value Reference Range Comments WHITE BLOOD CELL COUNT (BEAKER) (test evzi=925) 15.1 K/ L 3.5-10.5 RED BLOOD CELL COUNT (BEAKER) (test kqcq=049) 2.67 M/ L 3.93-5.22 HEMOGLOBIN (BEAKER) (test xbes=206) 7.4 GM/DL 11.2-15.7 HEMATOCRIT (BEAKER) (test natj=798) 24.8 % 34.1-44.9 MEAN CORPUSCULAR VOLUME (BEAKER) (test fmrq=212) 92.9 fL 79.4-94.8 MEAN CORPUSCULAR HEMOGLOBIN (BEAKER) (test 27.7 pg 25.6-32.2 fkxg=577) MEAN CORPUSCULAR HEMOGLOBIN CONC (BEAKER) (test 29.8 GM/DL 32.2-35.5 gmkm=455) RED CELL DISTRIBUTION WIDTH (BEAKER) (test 15.9 % 11.7-14.4 dlsj=232) PLATELET COUNT (BEAKER) (test xunu=639) 303 K/CU MM 150-450 MEAN PLATELET VOLUME (BEAKER) (test sksw=380) 10.1 fL 9.4-12.3 NUCLEATED RED BLOOD CELLS (BEAKER) (test 0 /100 WBC 0-0 qnzr=695) NEUTROPHILS RELATIVE PERCENT (BEAKER) (test 85 % pkkb=984) LYMPHOCYTES RELATIVE PERCENT (BEAKER) (test 6 % jsfn=480) MONOCYTES RELATIVE PERCENT (BEAKER) (test 6 % zled=117) EOSINOPHILS RELATIVE PERCENT (BEAKER) (test 2 % ycgc=497) BASOPHILS RELATIVE PERCENT (BEAKER) (test 0 % imxn=174) NEUTROPHILS ABSOLUTE COUNT (BEAKER) (test 12.90 K/ L 1.56-6.13 eynw=177) LYMPHOCYTES ABSOLUTE COUNT (BEAKER) (test 0.85 K/ L 1.18-3.74 mwxz=022) MONOCYTES ABSOLUTE COUNT (BEAKER) (test 0.97 K/ L 0.24-0.36 xocz=659) EOSINOPHILS ABSOLUTE COUNT (BEAKER) (test 0.25 K/ L 0.04-0.36 njqm=670) BASOPHILS ABSOLUTE COUNT (BEAKER) (test 0.03 K/ L 0.01-0.08 oupn=120) IMMATURE GRANULOCYTES-RELATIVE PERCENT (BEAKER) 1 % 0-1 (test anbp=3185) POCT-GLUCOSE [id number] 21:24:00 Test Item Value Reference Range Comments POC-GLUCOSE METER (BEAKER) 189 mg/dL 70-110 TESTED AT [address] (test jvcp=9338) [place] [id number] POCT-GLUCOSE [id number] 17:50:00 Test Item Value Reference Range Comments POC-GLUCOSE METER (BEAKER) 215 mg/dL 70-110 TESTED AT [address] (test lnji=0318) [place] [address] POCT-GLUCOSE [id number] 13:23:00 Test Item Value Reference Range Comments POC-GLUCOSE METER (BEAKER) 270 mg/dL 70-110 TESTED AT [address] (test avgs=2649) [place] [id number] POCT-GLUCOSE [id number] 08:37:00 Test Item Value Reference Range Comments POC-GLUCOSE METER (BEAKER) 138 mg/dL 70-110 TESTED AT [address] (test yndz=2083) [facility] [address] BASIC METABOLIC [id number] 06:54:00 Test Item Value Reference Range Comments SODIUM (BEAKER) (test 138 meq/L 136-145 dxll=519) POTASSIUM (BEAKER) (test 3.9 meq/L 3.5-5.1 uapt=451) CHLORIDE (BEAKER) (test 100 meq/L 98-107 imha=288) CO2 (BEAKER) (test 26 meq/L 22-29 bzvi=803) BLOOD UREA NITROGEN 27 mg/dL 7-21 (BEAKER) (test ytpw=535) CREATININE (BEAKER) (test 5.01 mg/dL 0.57-1.25 uedv=435) GLUCOSE RANDOM (BEAKER) 117 mg/dL 70-105 (test ijlq=475) CALCIUM (BEAKER) (test 8.6 mg/dL 8.4-10.2 qxst=138) EGFR (BEAKER) (test 11 mL/min/1.73 sq m ESTIMATED GFR IS NOT lliu=3629) ACCURATE CREATININE CLEARANCE IN PREDICTING GLOMERULAR FILTRATION RATE. ESTIMATED GFR IS NOT APPLICABLE FOR DIALYSIS PATIENTS. [id number] 06:53:00 Test Item Value Reference Range Comments PHOSPHORUS (BEAKER) (test ijlx=269) 4.1 mg/dL 2.3-4.7 [id number] 06:53:00 Test Item Value Reference Range Comments MAGNESIUM (BEAKER) (test xnol=465) 1.9 mg/dL 1.6-2.6 VANCOMYCIN LEVEL, [id number] 06:51:00 Test Item Value Reference Range Comments VANCOMYCIN RANDOM (BEAKER) (test wltq=962) 27.5 ug/mL Reference Range: No NormalsCBC W/PLT COUNT & AUTO [id number] 06: 30:00 Test Item Value Reference Range Comments WHITE BLOOD CELL COUNT (BEAKER) (test nwsx=332) 14.6 K/ L 3.5-10.5 RED BLOOD CELL COUNT (BEAKER) (test orwd=813) 2.82 M/ L 3.93-5.22 HEMOGLOBIN (BEAKER) (test wyja=952) 7.8 GM/DL 11.2-15.7 HEMATOCRIT (BEAKER) (test hqec=882) 25.6 % 34.1-44.9 MEAN CORPUSCULAR VOLUME (BEAKER) (test roem=698) 90.8 fL 79.4-94.8 MEAN CORPUSCULAR HEMOGLOBIN (BEAKER) (test 27.7 pg 25.6-32.2 tuwm=968) MEAN CORPUSCULAR HEMOGLOBIN CONC (BEAKER) (test 30.5 GM/DL 32.2-35.5 veta=190) RED CELL DISTRIBUTION WIDTH (BEAKER) (test 15.8 % 11.7-14.4 taqw=031) PLATELET COUNT (BEAKER) (test dxnv=449) 266 K/CU MM 150-450 MEAN PLATELET VOLUME (BEAKER) (test gspf=197) 10.2 fL 9.4-12.3 NUCLEATED RED BLOOD CELLS (BEAKER) (test 0 /100 WBC 0-0 xnwj=188) NEUTROPHILS RELATIVE PERCENT (BEAKER) (test 82 % idlh=927) LYMPHOCYTES RELATIVE PERCENT (BEAKER) (test 7 % mvmf=132) MONOCYTES RELATIVE PERCENT (BEAKER) (test 9 % jrwx=050) EOSINOPHILS RELATIVE PERCENT (BEAKER) (test 1 % lfrh=408) BASOPHILS RELATIVE PERCENT (BEAKER) (test 0 % bitw=401) NEUTROPHILS ABSOLUTE COUNT (BEAKER) (test 11.86 K/ L 1.56-6.13 sbqr=778) LYMPHOCYTES ABSOLUTE COUNT (BEAKER) (test 1.00 K/ L 1.18-3.74 kzxy=659) MONOCYTES ABSOLUTE COUNT (BEAKER) (test 1.24 K/ L 0.24-0.36 scoq=417) EOSINOPHILS ABSOLUTE COUNT (BEAKER) (test 0.21 K/ L 0.04-0.36 lrqb=822) BASOPHILS ABSOLUTE COUNT (BEAKER) (test 0.04 K/ L 0.01-0.08 zfro=673) IMMATURE GRANULOCYTES-RELATIVE PERCENT (BEAKER) 1 % 0-1 (test eflk=2752) POCT-GLUCOSE [id number] 00:41:00 Test Item Value Reference Range Comments POC-GLUCOSE METER (BEAKER) 139 mg/dL 70-110 TESTED AT [address] (test jddf=9005) [place] [address] HEMOGLOBIN AND [id number] 23:23:00 Test Item Value Reference Range Comments HEMOGLOBIN (BEAKER) (test lcly=535) 9.0 GM/DL 11.2-15.7 HEMATOCRIT (BEAKER) (test osgo=450) 29.7 % 34.1-44.9 Check after HD after she receives her blood transfusionPOCT-GLUCOSE [id number] 17:53:00 Test Item Value Reference Range Comments POC-GLUCOSE METER (BEAKER) 177 mg/dL 70-110 TESTED AT [address] (test molk=3997) [place] [address] POCT-GLUCOSE [id number] 13:03:00 Test Item Value Reference Range Comments POC-GLUCOSE METER (BEAKER) 171 mg/dL 70-110 TESTED AT [address] (test dpvb=9011) [place] [address] BLOOD [id number] 09:44:00 Test Item Value Reference Range Comments CULTURE (BEAKER) (test METHICILLIN RESISTANT From Aerobic And zrhe=4197) STAPHYLOCOCCUS AUREUS Anaerobic Bottles Methicillin resistant Staphylococcus aureus Clindamycin (test code=10) Erythromycin (test code=4) Linezolid (test code=40) Nitrofurantoin (test code=23) Oxacillin (test code=14) Rifampin (test code=43) Tetracycline (test code=2) Trimethoprim + Sulfamethoxazole (test code=47) Vancomycin (test code=13) CULTURE (BEAKER) (test From Aerobic Bottle vocf=6233) Only Methicillin resistant Staphylococcus aureusSame as first isolate. GRAM STAIN RESULT From aerobic and (BEAKER) (test omoa=4627) anaerobic bottles: gram positive cocci in clusters CT, [id number] 09:28:00FINAL REPORT ABDOMINAL AND PELVIS CT DATED [...] Aguilera Verified Date/Time: 2017 09:28:06 Reading Location: [address] Body Reading Room PROTHROMBIN [id number] 09:18:00 Test Item Value Reference Range Comments PROTIME (BEAKER) (test yzqs=867) 14.5 seconds 11.7-14.7 INR (BEAKER) (test dkjz=444) 1.1 <=5.9 RECOMMENDED COUMADIN/WARFARIN INR THERAPY RANGESSTANDARD DOSE: 2.0 - 3.0 Includes: PROPHYLAXIS forvenous thrombosis, systemic embolization; TREATMENT for venous thrombosis and/or pulmonary embolus.HIGH RISK: Target INR is 2.5-3.5 for patients with mechanical heart valves.HEMOGLOBIN AND [id number] 09 :08:00 Test Item Value Reference Range Comments HEMOGLOBIN (BEAKER) (test isjo=447) 7.0 GM/DL 11.2-15.7 HEMATOCRIT (BEAKER) (test mhkm=758) 23.2 % 34.1-44.9 BASIC METABOLIC [id number] 06:55:00 Test Item Value Reference Range Comments SODIUM (BEAKER) (test 137 meq/L 136-145 lmcd=378) POTASSIUM (BEAKER) (test 4.4 meq/L 3.5-5.1 eozr=686) CHLORIDE (BEAKER) (test 101 meq/L 98-107 gbxt=702) CO2 (BEAKER) (test 23 meq/L 22-29 ajsm=097) BLOOD UREA NITROGEN 56 mg/dL 7-21 (BEAKER) (test xmhd=095) CREATININE (BEAKER) (test 8.16 mg/dL 0.57-1.25 wyrr=448) GLUCOSE RANDOM (BEAKER) 131 mg/dL 70-105 (test foyo=374) CALCIUM (BEAKER) (test 8.4 mg/dL 8.4-10.2 zcvb=229) EGFR (BEAKER) (test 6 mL/min/1.73 sq m ESTIMATED GFR IS NOT jvxk=2955) ACCURATE CREATININE CLEARANCE IN PREDICTING GLOMERULAR FILTRATION RATE. ESTIMATED GFR IS NOT APPLICABLE FOR DIALYSIS PATIENTS. [id number] 06:40:00 Test Item Value Reference Range Comments PARTIAL THROMBOPLASTIN TIME (BEAKER) (test 91.0 seconds 22.5-36.0 suqj=687) CBC W/PLT COUNT & AUTO [id number] 06:33:00 Test Item Value Reference Range Comments WHITE BLOOD CELL COUNT (BEAKER) (test hwrt=981) 16.6 K/ L 3.5-10.5 RED BLOOD CELL COUNT (BEAKER) (test bcfo=895) 2.31 M/ L 3.93-5.22 HEMOGLOBIN (BEAKER) (test vrsb=580) 6.4 GM/DL 11.2-15.7 HEMATOCRIT (BEAKER) (test erxg=425) 21.3 % 34.1-44.9 MEAN CORPUSCULAR VOLUME (BEAKER) (test tsji=223) 92.2 fL 79.4-94.8 MEAN CORPUSCULAR HEMOGLOBIN (BEAKER) (test 27.7 pg 25.6-32.2 qkub=804) MEAN CORPUSCULAR HEMOGLOBIN CONC (BEAKER) (test 30.0 GM/DL 32.2-35.5 qppr=664) RED CELL DISTRIBUTION WIDTH (BEAKER) (test 15.0 % 11.7-14.4 yzib=323) PLATELET COUNT (BEAKER) (test rkzi=751) 276 K/CU MM 150-450 MEAN PLATELET VOLUME (BEAKER) (test vjqs=790) 10.4 fL 9.4-12.3 NUCLEATED RED BLOOD CELLS (BEAKER) (test 0 /100 WBC 0-0 apdx=545) NEUTROPHILS RELATIVE PERCENT (BEAKER) (test 82 % bkil=049) LYMPHOCYTES RELATIVE PERCENT (BEAKER) (test 7 % pstk=373) MONOCYTES RELATIVE PERCENT (BEAKER) (test 8 % ktfu=673) EOSINOPHILS RELATIVE PERCENT (BEAKER) (test 1 % info=896) BASOPHILS RELATIVE PERCENT (BEAKER) (test 0 % jrso=751) NEUTROPHILS ABSOLUTE COUNT (BEAKER) (test 13.67 K/ L 1.56-6.13 pjgs=590) LYMPHOCYTES ABSOLUTE COUNT (BEAKER) (test 1.14 K/ L 1.18-3.74 jfmd=009) MONOCYTES ABSOLUTE COUNT (BEAKER) (test 1.38 K/ L 0.24-0.36 apam=093) EOSINOPHILS ABSOLUTE COUNT (BEAKER) (test 0.08 K/ L 0.04-0.36 xigs=121) BASOPHILS ABSOLUTE COUNT (BEAKER) (test 0.06 K/ L 0.01-0.08 wxei=125) IMMATURE GRANULOCYTES-RELATIVE PERCENT (BEAKER) 2 % 0-1 (test fpek=4433) POCT-GLUCOSE [id number] 21:47:00 Test Item Value Reference Range Comments POC-GLUCOSE METER (BEAKER) 173 mg/dL 70-110 TESTED AT [address] (test xxhj=1956) [place] [address] [id number] 18:27:00 Test Item Value Reference Range Comments PARTIAL THROMBOPLASTIN TIME (BEAKER) (test 78.5 seconds 22.5-36.0 apwv=795) POCT-GLUCOSE [id number] 13:23:00 Test Item Value Reference Range Comments POC-GLUCOSE METER (BEAKER) 176 mg/dL 70-110 TESTED AT [address] (test cbyw=7343) [place] [address] [id number] 11:24:00 Test Item Value Reference Range Comments PARTIAL THROMBOPLASTIN TIME (BEAKER) (test 83.7 seconds 22.5-36.0 woms=523) POCT-GLUCOSE [id number] 08:13:00 Test Item Value Reference Range Comments POC-GLUCOSE METER (BEAKER) 189 mg/dL 70-110 TESTED AT [address] (test geff=2297) [place] [address] BASIC METABOLIC [id number] 06:03:00 Test Item Value Reference Range Comments SODIUM (BEAKER) (test 135 meq/L 136-145 srco=453) POTASSIUM (BEAKER) (test 3.9 meq/L 3.5-5.1 hefh=705) CHLORIDE (BEAKER) (test 100 meq/L 98-107 lvdf=432) CO2 (BEAKER) (test 23 meq/L 22-29 fncf=881) BLOOD UREA NITROGEN 41 mg/dL 7-21 (BEAKER) (test hpsl=241) CREATININE (BEAKER) (test 6.33 mg/dL 0.57-1.25 piop=884) GLUCOSE RANDOM (BEAKER) 154 mg/dL 70-105 (test ofnv=456) CALCIUM (BEAKER) (test 8.8 mg/dL 8.4-10.2 vkzk=129) EGFR (BEAKER) (test 8 mL/min/1.73 sq m ESTIMATED GFR IS NOT cxym=0761) ACCURATE CREATININE CLEARANCE IN PREDICTING GLOMERULAR FILTRATION RATE. ESTIMATED GFR IS NOT APPLICABLE FOR DIALYSIS PATIENTS. VANCOMYCIN LEVEL, [id number] 05:41:00 Test Item Value Reference Range Comments VANCOMYCIN RANDOM (BEAKER) (test bush=648) 34.9 ug/mL Reference Range: No NormalsCBC W/PLT COUNT & AUTO [id number] 05: 36:00 Test Item Value Reference Range Comments WHITE BLOOD CELL COUNT (BEAKER) (test rxjd=111) 15.0 K/ L 3.5-10.5 RED BLOOD CELL COUNT (BEAKER) (test scng=214) 2.79 M/ L 3.93-5.22 HEMOGLOBIN (BEAKER) (test eobg=609) 7.6 GM/DL 11.2-15.7 HEMATOCRIT (BEAKER) (test sumc=948) 25.8 % 34.1-44.9 MEAN CORPUSCULAR VOLUME (BEAKER) (test wzeo=028) 92.5 fL 79.4-94.8 MEAN CORPUSCULAR HEMOGLOBIN (BEAKER) (test 27.2 pg 25.6-32.2 auzo=569) MEAN CORPUSCULAR HEMOGLOBIN CONC (BEAKER) (test 29.5 GM/DL 32.2-35.5 xvzv=982) RED CELL DISTRIBUTION WIDTH (BEAKER) (test 14.6 % 11.7-14.4 eemw=699) PLATELET COUNT (BEAKER) (test mgnt=162) 229 K/CU MM 150-450 MEAN PLATELET VOLUME (BEAKER) (test unqw=538) 10.6 fL 9.4-12.3 NUCLEATED RED BLOOD CELLS (BEAKER) (test 0 /100 WBC 0-0 dklf=759) NEUTROPHILS RELATIVE PERCENT (BEAKER) (test 85 % ifwz=902) LYMPHOCYTES RELATIVE PERCENT (BEAKER) (test 6 % avwv=067) MONOCYTES RELATIVE PERCENT (BEAKER) (test 7 % ongp=433) EOSINOPHILS RELATIVE PERCENT (BEAKER) (test 1 % sdhq=870) BASOPHILS RELATIVE PERCENT (BEAKER) (test 0 % smqq=514) NEUTROPHILS ABSOLUTE COUNT (BEAKER) (test 12.75 K/ L 1.56-6.13 zwnl=389) LYMPHOCYTES ABSOLUTE COUNT (BEAKER) (test 0.92 K/ L 1.18-3.74 mxuy=902) MONOCYTES ABSOLUTE COUNT (BEAKER) (test 1.00 K/ L 0.24-0.36 ketx=817) EOSINOPHILS ABSOLUTE COUNT (BEAKER) (test 0.17 K/ L 0.04-0.36 vhqj=985) BASOPHILS ABSOLUTE COUNT (BEAKER) (test 0.05 K/ L 0.01-0.08 hpkn=381) IMMATURE GRANULOCYTES-RELATIVE PERCENT (BEAKER) 1 % 0-1 (test ztpn=5333) [id number] 05:31:00 Test Item Value Reference Range Comments PARTIAL THROMBOPLASTIN TIME (BEAKER) (test 69.7 seconds 22.5-36.0 swfc=979) POCT-GLUCOSE [id number] 22:11:00 Test Item Value Reference Range Comments POC-GLUCOSE METER (BEAKER) 175 mg/dL 70-110 TESTED AT [address] (test iyud=3424) [place] [address] [id number] 20:48:00 Test Item Value Reference Range Comments PARTIAL THROMBOPLASTIN TIME (BEAKER) (test 61.5 seconds 22.5-36.0 ptfz=522) [id number] 19:00:00 Test Item Value Reference Range Comments PARTIAL THROMBOPLASTIN TIME (BEAKER) (test > seconds 22.5-36.0 iutq=633) POCT-GLUCOSE [id number] 17:10:00 Test Item Value Reference Range Comments POC-GLUCOSE METER (BEAKER) 211 mg/dL 70-110 TESTED AT [address] (test jlzh=6335) [place] [address] POCT-GLUCOSE [id number] 12:54:00 Test Item Value Reference Range Comments POC-GLUCOSE METER (BEAKER) 181 mg/dL 70-110 TESTED AT [address] (test xflk=1143) [place] [address] [id number] 11:03:00 Test Item Value Reference Range Comments PARTIAL THROMBOPLASTIN TIME (BEAKER) (test 83.7 seconds 22.5-36.0 aodi=901) CATHETER TIP [id number] 09:36:00 Test Item Value Reference Range Comments CULTURE (BEAKER) (test oflf=2485) No growth POCT-GLUCOSE [id number] 08:14:00 Test Item Value Reference Range Comments POC-GLUCOSE METER (BEAKER) 191 mg/dL 70-110 TESTED AT [address] (test qipf=4070) [place] [id number] 03:56:00 Test Item Value Reference Range Comments PARTIAL THROMBOPLASTIN TIME (BEAKER) (test 104.2 seconds 22.5-36.0 rpnu=695) POCT-GLUCOSE [id number] 03:23:00 Test Item Value Reference Range Comments POC-GLUCOSE METER (BEAKER) 152 mg/dL 70-110 TESTED AT [address] (test hmiw=2073) [place] [id number] POCT-GLUCOSE [id number] 22:14:00 Test Item Value Reference Range Comments POC-GLUCOSE METER (BEAKER) 193 mg/dL 70-110 TESTED AT [address] (test weca=7391) [place] [address] [id number] 21:14:00 Test Item Value Reference Range Comments PARTIAL THROMBOPLASTIN TIME (BEAKER) (test 82.5 seconds 22.5-36.0 vnvc=374) POCT-GLUCOSE [id number] 19:35:00 Test Item Value Reference Range Comments POC-GLUCOSE METER (BEAKER) 156 mg/dL 70-110 TESTED AT [address] (test mqqz=8645) [place] [address] VANCOMYCIN LEVEL, [id number] 18:48:00 Test Item Value Reference Range Comments VANCOMYCIN RANDOM (BEAKER) (test alke=899) 12.6 ug/mL Reference Range: No NormalsPlease draw a random vancomycin level at end of dialysis tomorrow 11/25HEPATITIS B SURFACE [id number] 15:50:00 Test Item Value Reference Range Comments HEPATITIS B SURFACE ANTIGEN (2) (BEAKER) (test Nonreactive Nonreactive wimp=5079) [id number] 15:27:00 Test Item Value Reference Range Comments PARTIAL THROMBOPLASTIN TIME (BEAKER) (test 64.9 seconds 22.5-36.0 ucyi=103) BASIC METABOLIC [id number] 14:04:00 Test Item Value Reference Range Comments SODIUM (BEAKER) (test 134 meq/L 136-145 nlob=240) POTASSIUM (BEAKER) (test 3.9 meq/L 3.5-5.1 mleu=606) CHLORIDE (BEAKER) (test 100 meq/L 98-107 nkpg=848) CO2 (BEAKER) (test 22 meq/L 22-29 jzvc=493) BLOOD UREA NITROGEN 68 mg/dL 7-21 (BEAKER) (test hzsn=262) CREATININE (BEAKER) (test 8.46 mg/dL 0.57-1.25 ifxr=784) GLUCOSE RANDOM (BEAKER) 156 mg/dL 70-105 (test avhc=040) CALCIUM (BEAKER) (test 8.7 mg/dL 8.4-10.2 ythf=014) EGFR (BEAKER) (test 6 mL/min/1.73 sq m ESTIMATED GFR IS NOT kwvm=4397) ACCURATE CREATININE CLEARANCE IN PREDICTING GLOMERULAR FILTRATION RATE. ESTIMATED GFR IS NOT APPLICABLE FOR DIALYSIS PATIENTS. [id number] 13:33:00 Test Item Value Reference Range Comments PARTIAL THROMBOPLASTIN TIME (BEAKER) (test 67.9 seconds 22.5-36.0 fbzq=415) BLOOD [id number] 10:14:00 Test Item Value Reference Range Comments CULTURE (BEAKER) From Aerobic And Anaerobic (test dzhx=0546) Bottles Staphylococcus aureusRefer to previous culture ofMethicillin resistant Staphylococcus aureus GRAM STAIN RESULT From aerobic and (BEAKER) (test anaerobic bottles: hcsu=7009) gram positive cocci in clusters BLOOD [id number] 10:12:00 Test Item Value Reference Range Comments CULTURE (BEAKER) (test METHICILLIN RESISTANT From Aerobic And qbhz=5338) STAPHYLOCOCCUS AUREUS Anaerobic Bottles Methicillin resistant Staphylococcus aureus Clindamycin (test code=10) Erythromycin (test code=4) Linezolid (test code=40) Nitrofurantoin (test code=23) Oxacillin (test code=14) Rifampin (test code=43) Tetracycline (test code=2) Trimethoprim + Sulfamethoxazole (test code=47) Vancomycin (test code=13) GRAM STAIN RESULT From aerobic and (BEAKER) (test scxz=1412) anaerobic bottles: gram positive cocci in clusters POCT-GLUCOSE [id number] 08:05:00 Test Item Value Reference Range Comments POC-GLUCOSE METER (BEAKER) 182 mg/dL 70-110 TESTED AT [facility] [address] (test osom=5941) [facility] [address] [id number] 06:49:00 Test Item Value Reference Range Comments PARTIAL THROMBOPLASTIN TIME (BEAKER) (test 83.0 seconds 22.5-36.0 rthb=624) CBC W/PLT COUNT & AUTO [id number] 05:45:00 Test Item Value Reference Range Comments WHITE BLOOD CELL COUNT (BEAKER) (test newk=753) 8.1 K/ L 3.5-10.5 RED BLOOD CELL COUNT (BEAKER) (test dkmo=126) 2.88 M/ L 3.93-5.22 HEMOGLOBIN (BEAKER) (test rstj=424) 8.1 GM/DL 11.2-15.7 HEMATOCRIT (BEAKER) (test hhrv=113) 26.6 % 34.1-44.9 MEAN CORPUSCULAR VOLUME (BEAKER) (test dira=693) 92.4 fL 79.4-94.8 MEAN CORPUSCULAR HEMOGLOBIN (BEAKER) (test 28.1 pg 25.6-32.2 uwnr=380) MEAN CORPUSCULAR HEMOGLOBIN CONC (BEAKER) (test 30.5 GM/DL 32.2-35.5 eidm=840) RED CELL DISTRIBUTION WIDTH (BEAKER) (test 14.9 % 11.7-14.4 hgep=326) PLATELET COUNT (BEAKER) (test glub=529) 117 K/CU MM 150-450 MEAN PLATELET VOLUME (BEAKER) (test xebe=871) 10.5 fL 9.4-12.3 NUCLEATED RED BLOOD CELLS (BEAKER) (test 0 /100 WBC 0-0 wfwl=121) NEUTROPHILS RELATIVE PERCENT (BEAKER) (test 72 % emii=410) LYMPHOCYTES RELATIVE PERCENT (BEAKER) (test 11 % chyj=922) MONOCYTES RELATIVE PERCENT (BEAKER) (test 10 % yvzm=369) EOSINOPHILS RELATIVE PERCENT (BEAKER) (test 5 % wppv=810) BASOPHILS RELATIVE PERCENT (BEAKER) (test 1 % woab=446) NEUTROPHILS ABSOLUTE COUNT (BEAKER) (test 5.83 K/ L 1.56-6.13 iglv=117) LYMPHOCYTES ABSOLUTE COUNT (BEAKER) (test 0.92 K/ L 1.18-3.74 dbdm=725) MONOCYTES ABSOLUTE COUNT (BEAKER) (test 0.79 K/ L 0.24-0.36 efto=404) EOSINOPHILS ABSOLUTE COUNT (BEAKER) (test 0.41 K/ L 0.04-0.36 nqae=348) BASOPHILS ABSOLUTE COUNT (BEAKER) (test 0.05 K/ L 0.01-0.08 gtyn=391) IMMATURE GRANULOCYTES-RELATIVE PERCENT (BEAKER) 1 % 0-1 (test wqeo=9135) BASIC METABOLIC [id number] 00:23:00 Test Item Value Reference Range Comments SODIUM (BEAKER) (test 134 meq/L 136-145 pghb=161) POTASSIUM (BEAKER) (test 3.8 meq/L 3.5-5.1 svxt=655) CHLORIDE (BEAKER) (test 100 meq/L 98-107 cbnj=851) CO2 (BEAKER) (test 22 meq/L 22-29 tzss=794) BLOOD UREA NITROGEN 62 mg/dL 7-21 (BEAKER) (test khvf=702) CREATININE (BEAKER) (test 7.39 mg/dL 0.57-1.25 mssk=883) GLUCOSE RANDOM (BEAKER) 155 mg/dL 70-105 (test eicu=410) CALCIUM (BEAKER) (test 8.6 mg/dL 8.4-10.2 zqfu=266) EGFR (BEAKER) (test 7 mL/min/1.73 sq m ESTIMATED GFR IS NOT fgyu=6917) ACCURATE CREATININE CLEARANCE IN PREDICTING GLOMERULAR FILTRATION RATE. ESTIMATED GFR IS NOT APPLICABLE FOR DIALYSIS PATIENTS. [id number] 00:15:00 Test Item Value Reference Range Comments PHOSPHORUS (BEAKER) (test xlzm=285) 3.5 mg/dL 2.3-4.7 [id number] 00:15:00 Test Item Value Reference Range Comments MAGNESIUM (BEAKER) (test wruf=711) 2.3 mg/dL 1.6-2.6 [id number] 00:03:00 Test Item Value Reference Range Comments PARTIAL THROMBOPLASTIN TIME (BEAKER) (test 105.0 seconds 22.5-36.0 yrfz=629) POCT-GLUCOSE [id number] 22:14:00 Test Item Value Reference Range Comments POC-GLUCOSE METER (BEAKER) 200 mg/dL 70-110 TESTED AT [facility] [address] (test ezkc=3465) [facility] [address] [id number] 17:22:00 Test Item Value Reference Range Comments PROTIME (BEAKER) (test anew=427) 13.7 seconds 11.7-14.7 INR (BEAKER) (test jzqp=960) 1.0 <=5.9 PARTIAL THROMBOPLASTIN TIME (BEAKER) (test 64.3 seconds 22.5-36.0 sslx=104) RECOMMENDED COUMADIN/WARFARIN INR THERAPY RANGESSTANDARD DOSE: 2.0 - 3.0 Includes: PROPHYLAXIS forvenous thrombosis, systemic embolization; TREATMENT for venous thrombosis and/or pulmonary embolus.HIGH RISK: Target INR is 2.5-3.5 for patients with mechanical heart valves.Prior to initiating heparinPrior to initiating [id number] 17:22:00 Test Item Value Reference Range Comments PARTIAL THROMBOPLASTIN TIME (BEAKER) (test 64.3 seconds 22.5-36.0 eqtj=743) POCT-GLUCOSE [id number] 17:19:00 Test Item Value Reference Range Comments POC-GLUCOSE METER (BEAKER) 169 mg/dL 70-110 TESTED AT [address] (test ujty=7458) [place] [address] POCT-GLUCOSE [id number] 12:30:00 Test Item Value Reference Range Comments POC-GLUCOSE METER (BEAKER) 235 mg/dL 70-110 TESTED AT [address] (test krvm=6916) [place] [address] [id number] 10:05:00 Test Item Value Reference Range Comments PARTIAL THROMBOPLASTIN TIME (BEAKER) (test 38.6 seconds 22.5-36.0 agaj=494) Prior to initiating heparinPOCT-GLUCOSE [id number] 07:40:00 Test Item Value Reference Range Comments POC-GLUCOSE METER (BEAKER) 221 mg/dL 70-110 TESTED AT [address] (test tecq=8700) [place] [address] [id number] 05:58:00 Test Item Value Reference Range Comments MAGNESIUM (BEAKER) (test rifc=910) 2.1 mg/dL 1.6-2.6 [id number] 05:58:00 Test Item Value Reference Range Comments PHOSPHORUS (BEAKER) (test tedq=965) 3.5 mg/dL 2.3-4.7 TROPONIN [id number] 05:15:00 Test Item Value Reference Range Comments TROPONIN I (BEAKER) (test puis=389) 0.31 ng/mL 0.00-0.03 Troponin I (TnI) levels [...] disease, and persistent tachyarrhythmia.LACTIC ACID, VENOUS, WHOLE [id number] 05:13:00 Test Item Value Reference Range Comments LACTATE BLOOD VENOUS (2) (BEAKER) (test 0.8 mmol/L 0.5-2.2 ppbx=7300) BASIC METABOLIC [id number] 05:13:00 Test Item Value Reference Range Comments SODIUM (BEAKER) (test 136 meq/L 136-145 ufsg=449) POTASSIUM (BEAKER) (test 3.4 meq/L 3.5-5.1 rgks=130) CHLORIDE (BEAKER) (test 99 meq/L 98-107 pibf=806) CO2 (BEAKER) (test 25 meq/L 22-29 bgio=853) BLOOD UREA NITROGEN 43 mg/dL 7-21 (BEAKER) (test xvov=539) CREATININE (BEAKER) (test 6.21 mg/dL 0.57-1.25 jcyq=809) GLUCOSE RANDOM (BEAKER) 175 mg/dL 70-105 (test yaeh=929) CALCIUM (BEAKER) (test 8.6 mg/dL 8.4-10.2 ttyo=081) EGFR (BEAKER) (test 8 mL/min/1.73 sq m ESTIMATED GFR IS NOT fgvc=3719) ACCURATE CREATININE CLEARANCE IN PREDICTING GLOMERULAR FILTRATION RATE. ESTIMATED GFR IS NOT APPLICABLE FOR DIALYSIS PATIENTS. B-TYPE NATRIURETIC FACTOR (BNP)2018-11-24 05:12:00 Test Item Value Reference Range Comments B-TYPE NATRIURETIC PEPTIDE (BEAKER) (test 190 pg/mL 0-100 zwkb=252) CBC W/PLT COUNT & AUTO [id number] 05:12:00 Test Item Value Reference Range Comments WHITE BLOOD CELL COUNT (BEAKER) (test lxns=341) 12.0 K/ L 3.5-10.5 RED BLOOD CELL COUNT (BEAKER) (test whmj=152) 2.97 M/ L 3.93-5.22 HEMOGLOBIN (BEAKER) (test avcj=266) 8.1 GM/DL 11.2-15.7 HEMATOCRIT (BEAKER) (test glgu=110) 27.6 % 34.1-44.9 MEAN CORPUSCULAR VOLUME (BEAKER) (test clmj=020) 92.9 fL 79.4-94.8 MEAN CORPUSCULAR HEMOGLOBIN (BEAKER) (test 27.3 pg 25.6-32.2 jhea=450) MEAN CORPUSCULAR HEMOGLOBIN CONC (BEAKER) (test 29.3 GM/DL 32.2-35.5 mmxj=641) RED CELL DISTRIBUTION WIDTH (BEAKER) (test 15.0 % 11.7-14.4 pmjb=062) PLATELET COUNT (BEAKER) (test osjr=705) 115 K/CU MM 150-450 MEAN PLATELET VOLUME (BEAKER) (test skrn=589) 10.9 fL 9.4-12.3 NUCLEATED RED BLOOD CELLS (BEAKER) (test 0 /100 WBC 0-0 npva=456) NEUTROPHILS RELATIVE PERCENT (BEAKER) (test 81 % bstc=182) LYMPHOCYTES RELATIVE PERCENT (BEAKER) (test 6 % eomp=667) MONOCYTES RELATIVE PERCENT (BEAKER) (test 10 % vbef=082) EOSINOPHILS RELATIVE PERCENT (BEAKER) (test 3 % telq=702) BASOPHILS RELATIVE PERCENT (BEAKER) (test 1 % nafh=579) NEUTROPHILS ABSOLUTE COUNT (BEAKER) (test 9.67 K/ L 1.56-6.13 bfys=256) LYMPHOCYTES ABSOLUTE COUNT (BEAKER) (test 0.66 K/ L 1.18-3.74 sifh=457) MONOCYTES ABSOLUTE COUNT (BEAKER) (test 1.18 K/ L 0.24-0.36 srft=924) EOSINOPHILS ABSOLUTE COUNT (BEAKER) (test 0.32 K/ L 0.04-0.36 tyxt=824) BASOPHILS ABSOLUTE COUNT (BEAKER) (test 0.06 K/ L 0.01-0.08 wthe=900) IMMATURE GRANULOCYTES-RELATIVE PERCENT (BEAKER) 1 % 0-1 (test acua=8630) POCT-GLUCOSE [id number] 22:03:00 Test Item Value Reference Range Comments POC-GLUCOSE METER (BEAKER) 187 mg/dL 70-110 TESTED AT [facility] [address] (test iwpn=7194) [facility] [address] POCT-GLUCOSE [id number] 18:08:00 Test Item Value Reference Range Comments POC-GLUCOSE METER (BEAKER) 251 mg/dL 70-110 TESTED AT [facility] [address] (test hpob=3847) [facility] [address] ANG, CENTRAL VENOUS CATH PLCMT (JUG/FEM) > 5 Y.O. WITH [id number] 16:53 :00Reason for exam:->discussed, guidewire exchange of [...] Connor Verified Date/Time: 11/23/2018 16:53:15 Reading Location: [address] Body Reading Room BLOOD CULTURE IDENTIFICATION [id number] 13:44:00 Test Item Value Reference Range Comments LISTERIA MONOCYTOGENES (test Not detected Not detected wkwx=[id number]) STAPHYLOCOCCUS (test Detected Not detected vhvg=6611272) STAPHYLOCOCCUS AUREUS (test Detected Not detected First line therapy: yzpt=9875341) VancomycinID consultation strongly encouraged. Staphylococcus aureus DETECTED MecA DETECTEDReference Range: Not Detected STREPTOCOCCUS (test Not detected Not detected gbzd=4651455) STREPTOCOCCUS AGALACTIAE Not detected Not detected (GROUP B) (test arms=0528011) STREPTOCOCCUS PNEUMONIAE Not detected Not detected (test zbem=1282504) STREPTOCOCCUS PYOGENES (GROUP Not detected Not detected A) (test grtc=7122174) ACINETOBACTER BAUMANNII (test Not detected Not detected juce=6319627) HAEMOPHILUS INFLUENZAE (test Not detected Not detected oomv=0643680) NEISSERIA MENINGITIDIS (test Not detected Not detected uvak=3112794) ENTEROBACTERIACEAE (test Not detected Not detected vate=5338774) ENTEROBACTER CLOACOE COMPLEX Not detected Not detected (test szzr=2144027) KLEBSIELLA OXYTOCA (test Not detected Not detected lfau=0968307) KLEBSIELLA PNEUMONIAE (test Not detected Not detected wztv=4365) PROTEUS (test ijoi=0458660) Not detected Not detected SERRATIA MARCESCENS (test Not detected Not detected tvqv=0385616) SHRUTHI ALBICANS (test Not detected Not detected gnsw=2821898) SHRUTHI GLABRATA (test Not detected Not detected ipex=8268317) SHRUTHI KRUSEI (test Not detected Not detected wlea=6330161) SHRUTHI PARAPSILOSIS (test Not detected Not detected joem=8269249) SHRUTHI TROPICALIS (test Not detected Not detected pobi=4317142) ESCHERICHIA COLI (test Not detected Not detected kapy=7157653) METHICILLIN-RESISTANCE GENE Detected Not detected (test lvdb=4139124) VANCOMYCIN-RESISTANCE GENE Not detected (test gxfa=6301826) CARBAPENEM-RESISTANCE GENE Not detected (test mjpv=6675207) ENTEROCOCCUS-BEAKER (test Not detected Not detected kgzi=9462043) PSEUDOMONAS AERUGINOSA-BEAKER Not detected Not detected (test citj=1932960) Other bacteria and resistance markers not targeted by this PCR panel cannot be excluded; therefore clinical correlation and follow up of serology, culture results, and other molecular studies is required. The results are not intended to be used as the sole means for clinical diagnosis or patient management decisions. This sample was tested at the [facility] using the [employer] Blood Culture ID Panel. It is FDA cleared and has been verified and approved by the [facility] for clinical use. This laboratory is CLIA-certified and College ofAmerican Pathologists (CAP)-accredited to perform high complexity testing.VANCOMYCIN LEVEL, [id number] 13:20:00 Test Item Value Reference Range Comments VANCOMYCIN RANDOM ([facility]) (test wavg=125) 22.9 ug/mL Reference Range: No NormalsPOCT-GLUCOSE [id number] 13:00:00 Test Item Value Reference Range Comments POC-GLUCOSE METER ([facility]) 249 mg/dL 70-110 TESTED AT [facility] [address] (test oilu=6385) [facility] [address] TROPONIN [id number] 10:54:00 Test Item Value Reference Range Comments TROPONIN I (BEAKER) (test hbvo=682) 0.30 ng/mL 0.00-0.03 Troponin I (TnI) levels [...] failure, acidosis, acute neurological disease, and persistent tachyarrhythmia.[id number] 10:45:00 Test Item Value Reference Range Comments LIPASE (BEAKER) (test likw=682) 12 U/L 8-78 RAD, ABDOMEN/KUB, 1 VIEW [id number] 08:42:00Reason for exam:->abd painFINAL REPORT RAD, ABDOMEN/KUB, [...] MDReport Verified Date/Time: 11/23/2018 08:42:11 Reading Location: [facility] Radiology Reading Room COMPREHENSIVE METABOLIC [id number] 07:44:00 Test Item Value Reference Range Comments TOTAL PROTEIN (BEAKER) 6.0 gm/dL 6.0-8.3 (test xtom=301) ALBUMIN (BEAKER) (test 3.0 g/dL 3.5-5.0 phtr=0754) ALKALINE PHOSPHATASE 248 U/L 40-150 (BEAKER) (test wugj=650) BILIRUBIN TOTAL (BEAKER) 0.8 mg/dL 0.2-1.2 (test asjf=406) SODIUM (BEAKER) (test 137 meq/L 136-145 sqmw=646) POTASSIUM (BEAKER) (test 3.6 meq/L 3.5-5.1 zkov=403) CHLORIDE (BEAKER) (test 101 meq/L 98-107 dels=692) CO2 (BEAKER) (test 28 meq/L 22-29 nzzb=384) BLOOD UREA NITROGEN 26 mg/dL 7-21 (BEAKER) (test hupe=731) CREATININE (BEAKER) (test 4.09 mg/dL 0.57-1.25 dvhj=748) GLUCOSE RANDOM (BEAKER) 201 mg/dL 70-105 (test uavl=190) CALCIUM (BEAKER) (test 9.3 mg/dL 8.4-10.2 zeit=567) AST (SGOT) (BEAKER) (test 39 U/L 5-34 bsov=077) ALT (SGPT) (BEAKER) (test 18 U/L 6-55 blwa=241) EGFR (BEAKER) (test 13 mL/min/1.73 sq m ESTIMATED GFR IS NOT wenl=8255) ACCURATE CREATININE CLEARANCE IN PREDICTING GLOMERULAR FILTRATION RATE. ESTIMATED GFR IS NOT APPLICABLE FOR DIALYSIS PATIENTS. BASIC METABOLIC [id number] 07:44:00 Test Item Value Reference Range Comments SODIUM (BEAKER) (test 137 meq/L 136-145 tlxa=950) POTASSIUM (BEAKER) (test 3.6 meq/L 3.5-5.1 nprc=444) CHLORIDE (BEAKER) (test 101 meq/L 98-107 iaqq=405) CO2 (BEAKER) (test 28 meq/L 22-29 ampi=287) BLOOD UREA NITROGEN 26 mg/dL 7-21 (BEAKER) (test ljuz=909) CREATININE (BEAKER) (test 4.09 mg/dL 0.57-1.25 ievz=030) GLUCOSE RANDOM (BEAKER) 201 mg/dL 70-105 (test braj=884) CALCIUM (BEAKER) (test 9.3 mg/dL 8.4-10.2 mzdn=209) EGFR (BEAKER) (test 13 mL/min/1.73 sq m ESTIMATED GFR IS NOT vbkb=7771) ACCURATE CREATININE CLEARANCE IN PREDICTING GLOMERULAR FILTRATION RATE. ESTIMATED GFR IS NOT APPLICABLE FOR DIALYSIS PATIENTS. [id number] 07:39:00 Test Item Value Reference Range Comments PHOSPHORUS (BEAKER) (test dmyj=700) 3.0 mg/dL 2.3-4.7 [id number] 07:39:00 Test Item Value Reference Range Comments MAGNESIUM (BEAKER) (test asyk=398) 1.9 mg/dL 1.6-2.6 LACTIC ACID, VENOUS, WHOLE [id number] 07:34:00 Test Item Value Reference Range Comments LACTATE BLOOD VENOUS (2) (BEAKER) (test 0.8 mmol/L 0.5-2.2 itnd=6401) CALCIUM, [id number] 07:28:00 Test Item Value Reference Range Comments CALCIUM IONIZED (BEAKER) (test iaev=811) 1.13 mmol/L 1.12-1.27 PH, BLOOD (BEAKER) (test gvqd=1055) 7.36 CBC W/PLT COUNT & AUTO [id number] 07:28:00 Test Item Value Reference Range Comments WHITE BLOOD CELL COUNT (BEAKER) (test qxka=549) 19.0 K/ L 3.5-10.5 RED BLOOD CELL COUNT (BEAKER) (test nysv=121) 2.89 M/ L 3.93-5.22 HEMOGLOBIN (BEAKER) (test bhry=348) 8.3 GM/DL 11.2-15.7 HEMATOCRIT (BEAKER) (test dopg=465) 26.8 % 34.1-44.9 MEAN CORPUSCULAR VOLUME (BEAKER) (test vexo=156) 92.7 fL 79.4-94.8 MEAN CORPUSCULAR HEMOGLOBIN (BEAKER) (test 28.7 pg 25.6-32.2 pymk=270) MEAN CORPUSCULAR HEMOGLOBIN CONC (BEAKER) (test 31.0 GM/DL 32.2-35.5 yofd=316) RED CELL DISTRIBUTION WIDTH (BEAKER) (test 15.1 % 11.7-14.4 luva=424) PLATELET COUNT (BEAKER) (test oasb=831) 101 K/CU MM 150-450 MEAN PLATELET VOLUME (BEAKER) (test rfsr=724) 10.7 fL 9.4-12.3 NUCLEATED RED BLOOD CELLS (BEAKER) (test 0 /100 WBC 0-0 arln=653) NEUTROPHILS RELATIVE PERCENT (BEAKER) (test 88 % ympf=164) LYMPHOCYTES RELATIVE PERCENT (BEAKER) (test 3 % ttkp=096) MONOCYTES RELATIVE PERCENT (BEAKER) (test 6 % htlu=177) EOSINOPHILS RELATIVE PERCENT (BEAKER) (test 2 % lxgz=356) BASOPHILS RELATIVE PERCENT (BEAKER) (test 0 % sxra=486) NEUTROPHILS ABSOLUTE COUNT (BEAKER) (test 16.67 K/ L 1.56-6.13 ybpv=480) LYMPHOCYTES ABSOLUTE COUNT (BEAKER) (test 0.59 K/ L 1.18-3.74 jful=621) MONOCYTES ABSOLUTE COUNT (BEAKER) (test 1.07 K/ L 0.24-0.36 fvni=003) EOSINOPHILS ABSOLUTE COUNT (BEAKER) (test 0.36 K/ L 0.04-0.36 smvx=126) BASOPHILS ABSOLUTE COUNT (BEAKER) (test 0.07 K/ L 0.01-0.08 vezo=736) IMMATURE GRANULOCYTES-RELATIVE PERCENT (BEAKER) 1 % 0-1 (test vtxs=1476) BASIC METABOLIC [id number] 02:11:00 Test Item Value Reference Range Comments SODIUM (BEAKER) (test 136 meq/L 136-145 wbkr=582) POTASSIUM (BEAKER) (test 3.3 meq/L 3.5-5.1 rabw=763) CHLORIDE (BEAKER) (test 101 meq/L 98-107 mutx=194) CO2 (BEAKER) (test 25 meq/L 22-29 mdjv=699) BLOOD UREA NITROGEN 34 mg/dL 7-21 (BEAKER) (test nyoa=598) CREATININE (BEAKER) (test 5.32 mg/dL 0.57-1.25 pryl=326) GLUCOSE RANDOM (BEAKER) 164 mg/dL 70-105 (test vdgh=421) CALCIUM (BEAKER) (test 9.4 mg/dL 8.4-10.2 ejcp=844) EGFR (BEAKER) (test 10 mL/min/1.73 sq m ESTIMATED GFR IS NOT jtje=3402) ACCURATE CREATININE CLEARANCE IN PREDICTING GLOMERULAR FILTRATION RATE. ESTIMATED GFR IS NOT APPLICABLE FOR DIALYSIS PATIENTS. [id number] 02:07:00 Test Item Value Reference Range Comments PHOSPHORUS (BEAKER) (test opqu=015) 2.7 mg/dL 2.3-4.7 [id number] 02:07:00 Test Item Value Reference Range Comments MAGNESIUM (BEAKER) (test dblq=678) 1.8 mg/dL 1.6-2.6 CALCIUM, [id number] 01:51:00 Test Item Value Reference Range Comments CALCIUM IONIZED (BEAKER) (test keuv=807) 1.18 mmol/L 1.12-1.27 PH, BLOOD (BEAKER) (test rnme=8679) 7.35 POCT-GLUCOSE [id number] 00:30:00 Test Item Value Reference Range Comments POC-GLUCOSE METER (BEAKER) 248 mg/dL 70-110 TESTED AT [facility] [address] (test ldjq=7642) [facility] [address] TROPONIN [id number] 23:27:00 Test Item Value Reference Range Comments TROPONIN I (BEAKER) (test chom=075) 0.60 ng/mL 0.00-0.03 Troponin I (TnI) levels [...] disease, and persistent tachyarrhythmia.LACTIC ACID, VENOUS, WHOLE [id number] 23:13:00 Test Item Value Reference Range Comments LACTATE BLOOD VENOUS (2) (BEAKER) (test 1.3 mmol/L 0.5-2.2 bwoe=7014) U/S, ABDOMINAL, [id number] 20:30:00Reason for exam:->Septic Shock, ESRD, Dysuria, Abdominal [...] Verified Date/Time: 11/22/2018 20:30: 54 Reading Location: [facility] Neuro Reading Room LACTIC ACID, VENOUS, WHOLE [id number] 18:54:00 Test Item Value Reference Range Comments LACTATE BLOOD VENOUS (2) (BEAKER) (test 1.5 mmol/L 0.5-2.2 xcgp=7222) [id number] 17:26:00 Test Item Value Reference Range Comments PROCALCITONIN (BEAKER) (test btxg=1378) > ng/mL <0.05 SEPSIS RISK (ng/mL)Low: 0.05-0.50Intermediate: 0.51-2.00High: & gt;=2.01TSH/FREE T4 IF [id number] 17:10:00 Test Item Value Reference Range Comments THYROID STIMULATING HORMONE (BEAKER) (test 2.43 uIU/mL 0.35-4.94 xqua=723) RAD, CHEST, 1 VIEW, NON [id number] 17:04:00Reason for exam:->Respiratory Insufficiency, Septic ShockShould this [...] Verified Date/Time: 11/22/2018 17:04 :54 Reading Location: [address] Reading Room (CELLAVISION MANUAL DIFF) 2018-11-22 16:57:00 Test Item Value Reference Range Comments NEUTROPHILS - REL (CELLAVISION)(BEAKER) (test 85 % dhto=9403) LYMPHOCYTES - REL (CELLAVISION)(BEAKER) (test 5 % iqpu=9537) MONOCYTES - REL (CELLAVISION)(BEAKER) (test 4 % glai=7574) BANDS - REL (CELLAVISION)(BEAKER) (test 6 % 0-10 hcxn=5219) NEUTROPHILS - ABS (CELLAVISION)(BEAKER) (test 22.87 K/ul 1.56-6.13 njds=8797) LYMPHOCYTES - ABS (CELLAVISION)(BEAKER) (test 1.35 K/ul 1.18-3.74 srhe=4868) MONOCYTES - ABS (CELLAVISION)(BEAKER) (test 1.08 K/uL 0.24-0.36 qlfd=6228) BANDS - ABS (CELLAVISION)(BEAKER) (test 1.61 K/uL 0.00-0.80 reww=3967) TOTAL COUNTED (BEAKER) (test tzlg=7744) 100 WBC MORPHOLOGY (BEAKER) (test idba=201) Normal PLT MORPHOLOGY (BEAKER) (test btfs=915) Normal POLYCHROMATOPHILLIC RBCS(BEAKER) (test uvdy=969) 3+ many ANISOCYTOSIS (BEAKER) (test hcia=165) 1+ few MICROCYTES (BEAKER) (test henk=963) 1+ few POIKILOCYTES (BEAKER) (test mtva=987) 2+ moderate TEAR DROP CELLS (BEAKER) (test bcyi=595) 1+ few JOVANNI CELLS (BEAKER) (test lyqq=322) 1+ few ARTIFACT (CELLAVISION)(BEAKER) (test vcpl=7282) Present HELMET CELLS (CELLAVISION)(BEAKER) (test 1+ few ilyc=1417) PLATELET CONCENTRATION (CELLAVISION)(BEAKER) Adequate (test aftc=4725) Received comment: User comments: Slide comments:TROPONIN [id number] 16:52:00 Test Item Value Reference Range Comments TROPONIN I (BEAKER) (test rkrw=064) 0.85 ng/mL 0.00-0.03 Troponin I (TnI) levels [...] acidosis, acute neurological disease, and persistent tachyarrhythmia.PROTHROMBIN [id number] 16:52:00 Test Item Value Reference Range Comments PROTIME (BEAKER) (test gcsv=033) 16.1 seconds 11.7-14.7 INR (BEAKER) (test rfjz=672) 1.3 <=5.9 RECOMMENDED COUMADIN/WARFARIN INR THERAPY RANGESSTANDARD DOSE: 2.0 - 3.0 Includes: PROPHYLAXIS forvenous thrombosis, systemic embolization; TREATMENT for venous thrombosis and/or pulmonary embolus.HIGH RISK: Target INR is 2.5-3.5 for patients with mechanical heart valves.B-TYPE NATRIURETIC FACTOR (BNP)2018-10 16:48:00 Test Item Value Reference Range Comments B-TYPE NATRIURETIC PEPTIDE (BEAKER) (test 353 pg/mL 0-100 gzto=986) BASIC METABOLIC [id number] 16:48:00 Test Item Value Reference Range Comments SODIUM (BEAKER) (test 136 meq/L 136-145 hslv=588) POTASSIUM (BEAKER) (test 2.9 meq/L 3.5-5.1 fzhd=878) CHLORIDE (BEAKER) (test 98 meq/L 98-107 xvqd=635) CO2 (BEAKER) (test 24 meq/L 22-29 nust=280) BLOOD UREA NITROGEN 47 mg/dL 7-21 (BEAKER) (test nlxz=762) CREATININE (BEAKER) (test 8.07 mg/dL 0.57-1.25 edig=869) GLUCOSE RANDOM (BEAKER) 207 mg/dL 70-105 (test myod=198) CALCIUM (BEAKER) (test 9.5 mg/dL 8.4-10.2 qozh=130) EGFR (BEAKER) (test 6 mL/min/1.73 sq m ESTIMATED GFR IS NOT wdif=3488) ACCURATE CREATININE CLEARANCE IN PREDICTING GLOMERULAR FILTRATION RATE. ESTIMATED GFR IS NOT APPLICABLE FOR DIALYSIS PATIENTS. BLOOD GAS, [id number] 16:44:00 Test Item Value Reference Range Comments PH ARTERIAL (BEAKER) (test eucy=912) 7.37 7.35-7.45 PCO2 ARTERIAL (BEAKER) (test chex=946) 42 mmHg 35-45 PO2 ARTERIAL (BEAKER) (test jezc=738) 123 mmHg 80-90 O2 SATURATION ARTERIAL (BEAKER) (test jmbg=894) 98.3 % 96.0-97.0 HCO3 ARTERIAL (BEAKER) (test xtld=303) 24 mmol/L 21-29 BASE EXCESS ARTERIAL (BEAKER) (test miqw=804) -1.7 mmol/L -2.0-3.0 PATIENT TEMPERATURE (BEAKER) (test xwvz=9914) 37.0 C FIO2 (BEAKER) (test iwtl=6757) 28.0 % [id number] 16:44:00 Test Item Value Reference Range Comments PHOSPHORUS (BEAKER) (test vrxk=682) 4.1 mg/dL 2.3-4.7 [id number] 16:44:00 Test Item Value Reference Range Comments MAGNESIUM (BEAKER) (test xmhy=256) 1.9 mg/dL 1.6-2.6 HEPATIC FUNCTION [id number] 16:44:00 Test Item Value Reference Range Comments TOTAL PROTEIN (BEAKER) (test kygc=680) 6.9 gm/dL 6.0-8.3 ALBUMIN (BEAKER) (test hmje=8513) 3.5 g/dL 3.5-5.0 BILIRUBIN TOTAL (BEAKER) (test jyqb=717) 0.9 mg/dL 0.2-1.2 BILIRUBIN DIRECT (BEAKER) (test jwrg=521) 0.6 mg/dL 0.1-0.5 ALKALINE PHOSPHATASE (BEAKER) (test ibkm=564) 245 U/L 40-150 AST (SGOT) (BEAKER) (test uqdr=253) 51 U/L 5-34 ALT (SGPT) (BEAKER) (test rnnj=364) 18 U/L 6-55 VANCOMYCIN LEVEL, [id number] 16:41:00 Test Item Value Reference Range Comments VANCOMYCIN RANDOM (BEAKER) (test skgj=017) 18.3 ug/mL Reference Range: No NormalsOXYGEN SATURATION, [id number] 16:40:00 Test Item Value Reference Range Comments O2 SATURATION (MEASURED) (BEAKER) (test wycd=2916) 62.7 % If patient has internal jugular ( IJ) or subclavian central line or PICC line. Draw from distal port. Label as central venous oxygen.LACTIC ACID, VENOUS, WHOLE [id number] 16:38:00 Test Item Value Reference Range Comments LACTATE BLOOD VENOUS (2) (BEAKER) (test 1.2 mmol/L 0.5-2.2 cvjl=4344) CBC W/PLT COUNT & AUTO [id number] 16:35:00 Test Item Value Reference Range Comments WHITE BLOOD CELL COUNT (BEAKER) (test jltm=269) 26.9 K/ L 3.5-10.5 RED BLOOD CELL COUNT (BEAKER) (test omlx=755) 3.17 M/ L 3.93-5.22 HEMOGLOBIN (BEAKER) (test xyye=147) 8.8 GM/DL 11.2-15.7 HEMATOCRIT (BEAKER) (test fgjy=554) 29.6 % 34.1-44.9 MEAN CORPUSCULAR VOLUME (BEAKER) (test abmu=749) 93.4 fL 79.4-94.8 MEAN CORPUSCULAR HEMOGLOBIN (BEAKER) (test 27.8 pg 25.6-32.2 jwqn=493) MEAN CORPUSCULAR HEMOGLOBIN CONC (BEAKER) (test 29.7 GM/DL 32.2-35.5 byku=895) RED CELL DISTRIBUTION WIDTH (BEAKER) (test 15.3 % 11.7-14.4 asys=715) PLATELET COUNT (BEAKER) (test ggin=392) 149 K/CU MM 150-450 MEAN PLATELET VOLUME (BEAKER) (test ibkl=650) 10.6 fL 9.4-12.3 NUCLEATED RED BLOOD CELLS (BEAKER) (test 0 /100 WBC 0-0 hwfj=508) NEUTROPHILS RELATIVE PERCENT (BEAKER) (test 88 % jmss=577) LYMPHOCYTES RELATIVE PERCENT (BEAKER) (test 4 % mxln=895) MONOCYTES RELATIVE PERCENT (BEAKER) (test 6 % xltl=128) EOSINOPHILS RELATIVE PERCENT (BEAKER) (test 1 % move=928) BASOPHILS RELATIVE PERCENT (BEAKER) (test 0 % ymkf=395) NEUTROPHILS ABSOLUTE COUNT (BEAKER) (test 23.68 K/ L 1.56-6.13 nsbg=968) LYMPHOCYTES ABSOLUTE COUNT (BEAKER) (test 0.94 K/ L 1.18-3.74 firf=463) MONOCYTES ABSOLUTE COUNT (BEAKER) (test 1.53 K/ L 0.24-0.36 ayqw=419) EOSINOPHILS ABSOLUTE COUNT (BEAKER) (test 0.32 K/ L 0.04-0.36 tcvz=203) BASOPHILS ABSOLUTE COUNT (BEAKER) (test 0.08 K/ L 0.01-0.08 chvd=742) IMMATURE GRANULOCYTES-RELATIVE PERCENT (BEAKER) 1 % 0-1 (test hysh=7632) HEP B SURFACE [id number] 15:58:00 Test Item Value Reference Range Comments [...] Negative (qualifier Negative value) CBC WITH AUTO [id number] 07:16:00 Test Item Value Reference Range Comments [...] 1.0-3.0 IG% (test code=IG%) 1.4 % 0.0-0.4 [id number] 07:13:00 Test Item Value Reference Range Comments [...] mL/min/1.73m\\S\\2 EGFR if Non- 11 Estimated Glomerular Japanese (test mL/min/1.73m\\S\\2 Filtration Rate (eGFR) code=EGFRNA) Reference [...] management of chronic kidney failure. TYPE & [id number] 15:35:00 Test Item Value Reference Range Comments ABO Blood Type (test code=ABO) A Rh (test code=RH) Negative Antibody Screen (test code=ABSCR) Negative Negative ARMBAND# (test code=ARMBAND) FF 84 337 [id number] 13:49:00 Test Item Value Reference Range Comments [...] mL/min/1.73m\\S\\2 EGFR if Non- 10 Estimated Glomerular Japanese (test mL/min/1.73m\\S\\2 Filtration Rate (eGFR) code=EGFRNA) Reference [...] management of chronic kidney failure. er4PT AND [id number] 14:13:00 Test Item Value Reference Range Comments Protime (test code=PT) 9.8 seconds 9.0-11.9 INR (test code=INR) 1.0 0.9-1.1 INR results are intended ONLY to monitor Oral Anticoagulant therapy in stablized patients. The INR Therapeutic Range is 2.0 - 3.0 Patients with a mechanical heart, the INR Range is 2.5 - 3.5 [id number] 14:13:00 Test Item Value Reference Range Comments aPTT (test code=PTT) 28.2 seconds 23.0-33.0 CBC WITH AUTO [id number] 13:39:00 Test Item Value Reference Range Comments [...] IG% (test code=IG%) 1.7 % 0.0-0.4 AUTO [id number] 13:25:00 Test Item Value Reference Range Comments [...] mL/min/1.73m\\S\\2 EGFR if Non- 10 Estimated Glomerular Japanese (test mL/min/1.73m\\S\\2 Filtration Rate (eGFR) code=EGFRNA) Reference [...] management of chronic kidney failure. TYPE & [id number] 12:40:00 Test Item Value Reference Range Comments ABO Blood Type (test code=ABO) A Rh (test code=RH) Negative Antibody Screen (test code=ABSCR) Negative Negative ARMBAND# (test code=ARMBAND) FF 12 500 [id number] 06:38:00 Test Item Value Reference Range Comments [...] mL/min/1.73m\\S\\2 EGFR if Non- 12 Estimated Glomerular Japanese (test mL/min/1.73m\\S\\2 Filtration Rate (eGFR) code=EGFRNA) Reference [...] of chronic kidney failure. CBC WITH AUTO [id number] 06:35:00 Test Item Value Reference Range Comments [...] (test code=IG%) 0.4 % 0.0-0.4 CBC AUTO [id number] 06:33:00 Test Item Value Reference Range Comments aPTT (test code=PTT) 29.4 seconds 23.0-33.0 PT AND [id number] 06:33:00 Test Item Value Reference Range Comments Protime (test code=PT) 10.1 seconds 9.0-11.9 INR (test code=INR) 1.0 0.9-1.1 INR results are intended ONLY to monitor Oral Anticoagulant therapy in stablized patients. The INR Therapeutic Range is 2.0 - 3.0 Patients with a mechanical heart, the INR Range is 2.5 - 3.5 [id number] 10:05:00 Test Item Value Reference Range Comments [...] mL/min/1.73m\\S\\2 EGFR if Non- 15 Estimated Glomerular Japanese (test mL/min/1.73m\\S\\2 Filtration Rate (eGFR) code=EGFRNA) Reference [...] PLATELET CLUMPING. THIS IS A HEMOGRAM ONLYRBC, [id number] 03:00:00 Test Item Value Reference Range Comments RBC Unit (test code=RBCUNIT) Released for Transfusion RBC, [id number] 03:00:00 Test Item Value Reference Range Comments RBC Unit (test code=RBCUNIT) Released for Transfusion CROSSMATCH x 12:53:00Completed: Compatible Ready to TransfuseTYPE & amp; [id number] 12:52:00 Test Item Value Reference Range Comments ABO Blood Type (test code=ABO) A Rh (test code=RH) Negative Antibody Screen (test code=ABSCR) Negative Negative ARMBAND# (test code=ARMBAND) FF 12 500 HEP B SURFACE [id number] 07:50:00 Test Item Value Reference Range Comments [...] Negative (qualifier Negative value) CBC WITH AUTO [id number] 07:17:00 Test Item Value Reference Range Comments [...] called to Gary DIAZ RN. K3 by [id number] on 08/10/2017 07:16 AM. Results were readback by Claudine DE LA CRUZ RN..[id number] 07:17:00 Test Item Value Reference Range Comments [...] mL/min/1.73m\\S\\2 EGFR if Non- 13 Estimated Glomerular Japanese (test mL/min/1.73m\\S\\2 Filtration Rate (eGFR) code=EGFRNA) Reference Intervals Decision Points for 18 years and older and average body mass: >=60 Does not exclude kidney disease. 30 - 59 Suggests moderate chronic kidney disease and indicates the need for further investigation including assessment of proteinuria and cardiovascular factors. < 30 Usually indicates a need for referral for assessment and management of chronic kidney failure. [id number] 19:07:00 Test Item Value Reference Range Comments aPTT (test code=PTT) 29.9 seconds 23.0-33.0 PT AND [id number] 19:07:00 Test Item Value Reference Range Comments Protime (test code=PT) 10.1 seconds 9.0-11.9 INR (test code=INR) 1.0 0.9-1.1 INR results are intended ONLY to monitor Oral Anticoagulant therapy in stablized patients. The INR Therapeutic Range is 2.0 - 3.0 Patients with a mechanical heart, the INR Range is 2.5 - 3.5 [id number] 18:35:00 Test Item Value Reference Range Comments [...] mL/min/1.73m\\S\\2 EGFR if Non- 13 Estimated Glomerular Japanese (test mL/min/1.73m\\S\\2 Filtration Rate (eGFR) code=EGFRNA) Reference [...] of chronic kidney failure. CBC WITH AUTO [id number] 18:19:00 Test Item Value Reference Range Comments [...] IG% (test code=IG%) 0.4 % 0.0-0.4 AUTO [id number] 17:15:00 Test Item Value Reference Range Comments [...] (test code=BGCTHB) 8.3 gm/dl 11.5-17.4 O2Hb (test code=EBKL8CH) 94.9 % 95.0-99.0 COHb (test code=BGFCOHB) <2.8 [...] Notified (test code=BGTMNOTIFIED) 15:59 O2 Device (test code=XKG8CGR2) Room Air Instrument ID (test code=BGINSTRID) [id number] Reported By (test code=BGREPORTEDBY) ROSALINO HUFF [id number] 09:50:00 Test Item Value Reference Range Comments [...] mL/min/1.73m\\S\\2 EGFR if Non- 14 Estimated Glomerular Japanese (test mL/min/1.73m\\S\\2 Filtration Rate (eGFR) code=EGFRNA) Reference [...] values were called to Tracy AGARWAL by [id number] on 08/07/2017 09:41 AM. Results were read back by Tracy AGARWAL.CULTURE, [id number] 07:53:00Specimen : AbscessCollected: 07/26/2017 20:47 Status: Final [...] 09:58: Culture Result (Prelim) (Prelim) Many DiptheroidsCULTURE, [id number] 06:50:00To start 15mins after 1st cultureSpecimen: BloodCollected: 07/24/2017 00:38 Status: Final Last Updated: 07/29/2017 06: 49 (1) To start 15mins after 1st culture Culture Result (Final) (Final ) No Growth After 5 DaysCULTURE, [id number] 06:50:00Specimen: BloodCollected: 07/24/2017 00:18 Status: Final Last Updated: 07/29/2017 06: 49 Culture Result (Final) (Final) No Growth After 5 DaysED RAPID [id number] 04:24:00 Test Item Value Reference Range Comments CKMB (BIOSITE) (test code=BIOCKMB) <1.0 ng/ml 0.0-2.5 TROPONIN-I (BIOSITE) (test code=BIOTROP) <0.050 ng/ml 0.000-0.050 MYOGLOBIN (BIOSITE) (test code=BIOMYO) 166.0 ng/ml 0.0-170.0 SERIAL INSTRUMENT NUMBER (test code=SERIAL) [id number] ED RAPID [id number] 01:05:00 Test Item Value Reference Range Comments CKMB (BIOSITE) (test code=BIOCKMB) <1.0 ng/ml 0.0-2.5 TROPONIN-I (BIOSITE) (test code=BIOTROP) <0.050 ng/ml 0.000-0.050 MYOGLOBIN (BIOSITE) (test code=BIOMYO) 203.0 ng/ml 0.0-170.0 SERIAL INSTRUMENT NUMBER (test code=SERIAL) [id number] 01:02:00 Test Item Value Reference Range Comments [...] mL/min/1.73m\\S\\2 EGFR if Non- 16 Estimated Glomerular Japanese (test mL/min/1.73m\\S\\2 Filtration Rate (eGFR) code=EGFRNA) Reference [...] chronic kidney failure. ER 8CBC WITH AUTO [id number] 00:58:00 Test Item Value Reference Range Comments [...] IG% (test code=IG%) 0.5 % 0.0-0.4 ER [id number] 13:31:00 Test Item Value Reference Range Comments [...] mL/min/1.73m\\S\\2 EGFR if Non- 11 Estimated Glomerular Japanese (test mL/min/1.73m\\S\\2 Filtration Rate (eGFR) code=EGFRNA) Reference [...] of chronic kidney failure. CBC WITH AUTO [id number] 13:08:00 Test Item Value Reference Range Comments [...] 0 /100WBC 0-2 code=NRBC_AUTO) HEP B SURFACE [id number] 15:00:00 Test Item Value Reference Range Comments [...] to HBV infection. HEPATITIS B CORE AB, [id number] 10:03:00 Test Item Value Reference Range Comments HEPATITIS B CORE AB TOTAL (test code=HEPBCORE) 2.97 Negative [id number] 09:16:00 Test Item Value Reference Range Comments [...] mL/min/1.73m\\S\\2 EGFR if Non- 13 Estimated Glomerular Japanese (test mL/min/1.73m\\S\\2 Filtration Rate (eGFR) code=EGFRNA) Reference [...] management of chronic kidney failure. ERYTHROCYTE SED [id number] 09:16:00 Test Item Value Reference Range Comments [...] 50-999 years old=0-25 mm/hr CBC WITH AUTO [id number] 08:46:00 Test Item Value Reference Range Comments [...] IG% (test code=IG%) 0.7 % 0.0-0.4 LIPASE, [id number] 18:05:00 Test Item Value Reference Range Comments Lipase (test code=LIPA) 42 U/L 8-223 AMYLASE, [id number] 18:05:00 Test Item Value Reference Range Comments Amylase (test code=AMYL) 53 U/L 12-103 C-REACTIVE [id number] 17:24:00 Test Item Value Reference Range Comments C REACTIVE PROTEIN (test code=CRP) 0.7 ng/ml 0.0-0.9 [id number] 09:07:00 Test Item Value Reference Range Comments [...] mL/min/1.73m\\S\\2 EGFR if Non- 10 Estimated Glomerular Japanese (test mL/min/1.73m\\S\\2 Filtration Rate (eGFR) code=EGFRNA) Reference [...] of chronic kidney failure. CBC WITH AUTO [id number] 08:35:00 Test Item Value Reference Range Comments [...] % 0.0-0.4 CBC AUTO diffCBC WITH AUTO [id number] 05:58:00 Test Item Value Reference Range Comments [...] 1.0-3.0 IG% (test code=IG%) 0.8 % 0.0-0.4 [id number] 05:41:00 Test Item Value Reference Range Comments [...] mL/min/1.73m\\S\\2 EGFR if Non- 12 Estimated Glomerular Japanese (test mL/min/1.73m\\S\\2 Filtration Rate (eGFR) code=EGFRNA) Reference Intervals Decision Points for 18 years and older and average body mass: >=60 Does not exclude kidney disease. 30 - 59 Suggests moderate chronic kidney disease and indicates the need for further investigation including assessment of proteinuria and cardiovascular factors. < 30 Usually indicates a need for referral for assessment and management of chronic kidney failure. [id number] 05:41:00 Test Item Value Reference Range Comments Magnesium (test code=MG) 2.0 mg/dl 1.6-2.3 HEP B SURFACE [id number] 08:16:00 Test Item Value Reference Range Comments [...] (test code=HBSAG) Negative (qualifier Negative value) GLYCOSALATED [id number] 01:37:00 Test Item Value Reference Range Comments [...] ARE NOT INTERCHANGEABLE BETWEEN METHODS. 12-06-2006 FREE [id number] 01:14:00 Test Item Value Reference Range Comments Free T4 (test code=FT4) 1.24 ng/dl 0.78-2.19 CORONARY [id number] 00:54:00 Test Item Value Reference Range Comments [...] Average vLDL (test code=VLDL) 29 mg/dl 20-50 [id number] 00:52:00 Test Item Value Reference Range Comments Magnesium (test code=MG) 2.0 mg/dl 1.6-2.3 [id number] 00:52:00 Test Item Value Reference Range Comments [...] mL/min/1.73m\\S\\2 EGFR if Non- 17 Estimated Glomerular Japanese (test mL/min/1.73m\\S\\2 Filtration Rate (eGFR) code=EGFRNA) Reference [...]
--- NOTE | 2019-03-30 15:29 | RAD REPORT ---
EXAM DESCRIPTION: RAD - Chest Single View - 03/30/2019 3:11 pm CLINICAL HISTORY: Dyspnea, dialysis patient COMPARISON: March 14 TECHNIQUE: AP portable chest image was obtained 1505 hours . FINDINGS: Dialysis catheter is in place. Interstitial alveolar opacification is present similar or s lightly less pronounced than the March 14 study. Heart size is within normal limits. Pulmonary vascul ature is prominent. No pneumothorax seen. No large pleural effusion. No acute bony abnormality seen. No acute aortic findings suspected. IMPRESSION: Mild to moderate volume overload pattern.
[2019-03-30 15:42] LABS: Absolute Lymphocytes (CBC) 0.4 K/uL (0.7-4.9); Absolute Monocytes 0.5 K/uL (0.1-1.3); Basophils % 0.4 % (0-1.3); Eosinophils % 1.2 % (0-4.4); Lymphocytes % 2.5 % (15.3-44.8); MPV 10.3 fL (7.6-11.3); Monocytes % 3.4 % (3.3-12.3); RBC Red Blood Cell Count 4.18 M/uL (3.86-4.86)
[2019-03-30 15:45] LABS: Hematocrit 34.2 % (36.0-45.0)
[2019-03-30 15:51] LABS: BUN Blood Urea Nitrogen 111 mg/dL (7-18); Bicarbonate 24 mmol/L (21-32); Glucose Level 141 mg/dL (74-106); NT PRO-BNP 32214 pg/mL (<125); Sodium Level 139 mmol/L (136-145); Troponin (Emerg Dept Use Only) < 0.02 ng/mL (0.0-0.045)
[2019-03-30 15:54] LABS: Potassium 7.6 mmol/L (3.5-5.1)
[2019-03-30 16:04] LABS: Blood Morphology Comment NOT SEEN (NOT SEEN); Platelet Estimate ADEQ; Urine White Blood Cell Casts OK
[2019-03-30] MEDS ORDERED: INSULIN -REGULAR HUMAN 50 UNIT/0.5 ML ML ONE (16:24)
[2019-03-30] MEDS ORDERED: SODIUM BICARB 50 MEQ/50ML VIAL ONE (16:25)
[2019-03-30] MEDS ORDERED: CEFTRIAXONE/SWI 1gm 1 GM/10 ML SYR ONE (16:25)
[2019-03-30] MEDS ORDERED: D50W 25 GM/50 ML SYRINGE IV ONE (16:27)
--- NOTE | 2019-03-30 16:28 | EDPHYS ---
Physician Documentation [facility] Name: Alysa Mayes Age: 64 yrs Sex: Female : 1955 Arrival Date: 03/30/2019 Time: 14:15 Bed 7 Private MD: ED Physician Emerson Richard HPI: 03/30 14:44 This 64 yrs old Black Female presents to ER via EMS with complaints of Shortness Of rn Breath. 14:44 The patient has shortness of breath at rest. Onset: The symptoms/episode began/occurred rn 2 day(s) ago. Duration: The symptoms are continuous. The patient's shortness of breath is aggravated by light activity, supine position, talking. Severity of symptoms: At their worst the symptoms were moderate in the emergency department the symptoms are unchanged. The patient has experienced similar episodes in the past. Reports 2 days of sob, cough, missed last 2 days of dialysis, reports fever and chills. + cough. Denies vomiting/diarrhea. . Historical: - Allergies: 14:20 amlodipine; aa5 14:20 Amoxicillin; aa5 14:20 PENICILLINS; aa5 - Home Meds: 15:00 apixaban Oral [Active]; Arginaid 4.5 gram-156 mg/9.2 gram Oral pwpk daily [Active]; aa5 ascorbic acid (vitamin C) 500 mg tab daily [Active]; aspirin 81 mg Oral chew 1 tab once daily [Active]; atorvastatin 40 mg Oral tab 1 tab once daily [Active]; guaifenesin 400 mg Oral tab every 4 hours [Active]; [place] 10-325 mg Oral tab every 6 hours for Pain [Active]; insulin detemir subcutaneous [Active]; levofloxacin 250 mg Oral tab one time a day archie other day for foot ulcer after hemodialysis [Active]; levothyroxine 50 mcg tab 1 tab once daily [Active]; Lyrica Oral 150mg once a day [Active]; metoprolol succinate 50 mg Oral Tb24 1 tab once daily [Active]; nepafenac ophthalmic 1 drop once daily [Active]; Linda-Ryan Oral daily [Active]; Sensipar 30 mg Oral tab 2 tabs once daily [Active]; Tums 300 mg (750 mg) oral chew before meals [Active]; zinc sulfate 220 (50) mg Oral cap daily [Active]; - PMHx: 14:20 Anemia; CHF; COPD; Diabetes - NIDDM; Dialysis; Hypertension; aa5 14:25 Gout; Depression; Hypothyroidism; Hyperlipidemia; Pressure ulcers; aa5 - PSHx: 14:20 dialysis port; aa5 - Immunization history:: Adult Immunizations unknown. - Social history:: Smoking status: Patient/guardian denies using tobacco. - Ebola Screening: : No symptoms or risks identified at this time. - Family history:: not pertinent. - Hospitalizations: : No recent hospitalization is reported. ROS: 14:44 Constitutional: + fever and chills Eyes: Negative for injury, pain, redness, and rn pool, ENT: Negative for injury, pain, and discharge, Neck: Negative for injury, pain, and swelling, Cardiovascular: Negative for chest pain, palpitations, and edema, Respiratory: + sob and cough Abdomen/GI: Negative for abdominal pain, nausea, vomiting, diarrhea, and constipation, MS/Extremity: Negative for injury and deformity, Skin: Negative for injury, rash, and discoloration, Neuro: + generalized weakness Exam: 14:43 ECG was reviewed by the Attending Physician. rn 14:44 Constitutional: Patient awakens to voice, + moderate resp distress Head/Face: rn Normocephalic, atraumatic. Eyes: Pupils equal round and reactive to light, extra-ocular motions intact. Lids and lashes normal. Conjunctiva and sclera are non-icteric and not injected. Cornea within normal limits. Periorbital areas with no swelling, redness, or edema. ENT: dry MM Cardiovascular: tachycardic, regular, no murmur Respiratory: + moderate tachypnea with very diminished breath sounds bilaterally, speaking 3 word sentences, very labored. MS/ Extremity: Pulses equal, dusky bilateral lower ext Neuro: Awakens to voice, moves extremities Vital Signs: 14:17 BP 144 / 82; Pulse 107; Resp 30 S; Temp 100.3(O); Pulse Ox 100% on Non-rebreather mask; aa5 Pain 0/10; 14:45 BP 150 / 75; Pulse 106; Resp 32 S; Pulse Ox 99% on BiPAP; aa5 15:00 BP 143 / 84; Pulse 102; Resp 28 S; Temp 100.4(O); Pulse Ox 99% on BiPAP; aa5 15:57 BP 140 / 84; Pulse 97; Resp 23; Pulse Ox 97% on BiPAP; jb1 16:30 aa5 16:30 BP 145 / 82; Pulse 97; Resp 22 S; Pulse Ox 98% on BiPAP; aa5 16:38 Temp 100.9(O); aa5 17:30 BP 137 / 72; Pulse 96; Resp 22 S; Pulse Ox 98% on BiPAP; aa5 18:18 BP 137 / 73; Pulse 97; Resp 20 S; Temp 99.9(O); Pulse Ox 100% on BiPAP; aa5 19:31 BP 141 / 84; Pulse 102; Resp 20; Temp 97.8(TE); Pulse Ox 100% on BiPAP; ea 20:08 BP 140 / 82; Pulse 102; Resp 20; Temp 98.4(TE); Pulse Ox 100% on BiPAP; ea 20:59 BP 155 / 79; Pulse 103; Resp 21; Temp 98.7; Pulse Ox 100% on BiPAP; ea 21:15 BP 148 / 78; Pulse 100; Resp 19; Temp 98.6; Pulse Ox 100% on BiPAP; ea 16:30 Bi-PAP settings: IPAP 15, EPAP 8, Rate 14, O2 30%. aa5 MDM: 14:21 Patient medically screened. rn 16:24 Differential diagnosis: CHF exacerbation, pneumonia, Pneumothorax pulmonary edema. Data rn reviewed: vital signs, nurses notes, lab test result(s), EKG, radiologic studies, plain films, and as a result, I will admit patient. Counseling: I had a detailed discussion with the patient and/or guardian regarding: the historical points, exam findings, and any diagnostic results supporting the discharge/admit diagnosis, lab results, radiology results, the need for further work-up and treatment in the hospital. Response to treatment: the patient's symptoms have mildly improved after treatment. Admission orders: after a detailed discussion of the patient's condition and case, the admit orders are written by me. 16:24 ED course: Pt admitted to Dr. Ndiaye, evaluating patient now.. rn 03/30 14:26 Order name: Blood Culture Adult (2) rn 03/30 14:26 Order name: BMP; Complete Time: 15:57 rn 03/30 14:26 Order name: CBC with Diff; Complete Time: 16:18 rn 03/30 14:26 Order name: NT PRO-BNP; Complete Time: 15:57 rn 03/30 14:26 Order name: Troponin (emerg Dept Use Only); Complete Time: 15:57 rn 03/30 14:26 Order name: Flu; Complete Time: 16:18 rn 03/30 14:26 Order name: BIPAP rn 03/30 14:26 Order name: XRAY CXR (1 view); Complete Time: 15:53 rn 03/30 14:26 Order name: Lactate; Complete Time: 15:53 rn 03/30 14:26 Order name: Procalcitonin; Complete Time: 15:53 rn 03/30 15:46 Order name: CBC Smear Scan; Complete Time: 16:18 EDMS 03/30 19:22 Order name: Blood Culture EDMS 03/30 21:37 Order name: Glucose, Ancillary Testing EDAL 03/30 14:26 Order name: EKG; Complete Time: 14:27 rn 03/30 14:26 Order name: Cardiac monitoring; Complete Time: 15:12 rn 03/30 14:26 Order name: EKG - Nurse/Tech; Complete Time: 15:12 rn 03/30 14:26 Order name: IV Saline Lock; Complete Time: 15:12 rn 03/30 14:26 Order name: Labs collected and sent; Complete Time: 15:12 rn 03/30 14:26 Order name: O2 Per Protocol; Complete Time: 15:12 rn 03/30 14:26 Order name: O2 Sat Monitoring; Complete Time: 15:12 rn EC:43 Rate is 106 beats/min. Rhythm is regular. ID interval is normal. QT interval is normal. rn No Q waves. No ST changes noted. Clinical impression: NSR w/ Non-specific ST/T Changes and Sinus tachycardia. Interpreted by me. Reviewed by me. Administered Medications: 16:25 Drug: D50W 50 ml Route: IVP; Site: Other; ao 18:25 Follow up: Response: No adverse reaction aa5 16:29 Drug: Sodium Bicarbonate 1 amp Route: IVP; Site: Other; ao 18:25 Follow up: Response: No adverse reaction aa5 16:30 Drug: Rocephin - (cefTRIAXone) 1 grams Route: IVPB; Infused Over: 30 mins; Site: Other; ao 16:40 Follow up: Response: No adverse reaction aa5 16:30 Drug: Insulin Regular Human 5 units {Co-Signature: aa5 (Tonia lAexander RN).} Route: ao IVP; Site: Other; 18:25 Follow up: Response: No adverse reaction aa5 Point of Care Testing: Blood Glucose: 14:30 Blood Glucose: 189 mg/dL; aa5 18:25 Blood Glucose: 155 mg/dL; aa5 Ranges: Critical Glucose Levels:Adult <50 mg/dl or >400 mg/dl <40 mg/dl or >180 mg/dl Disposition: 16:24 Critical Care:. rn Disposition: 03/30/19 16:27 Hospitalization ordered by Gaurav Ndiaye for Inpatient Admission. Preliminary diagnosis are Dyspnea, unspecified, Pulmonary edema, End stage renal disease, Hyperkalemia. - Bed requested for Intensive Care Unit. - Status is Inpatient Admission. ea - Condition is Fair. - Problem is new. - Symptoms have improved. UTI on Admission? No Critical care time excluding procedures: 16:24 Critical care time: Bedside Care: 25 minutes, Consultation: 5 minutes. Total time: 30 rn minutes Signatures: Dispatcher [employer] EDMS Emerson Richard MD MD rn Calderon, Tonia, RN RN aa5 Sivakumar Hurst, RN Ofelia Sandoval, RN Shiela Avila, RN Sirena Morris ea, RN aa5 Corrections: (The following items were deleted from the chart) 17:04 16:27 Hospitalization Ordered by Gaurav Ndiaye DO for Inpatient Admission. Preliminary eb diagnosis is Dyspnea, unspecified; Pulmonary edema; End stage renal disease; Hyperkalemia. Bed requested for Intensive Care Unit. Status is Inpatient Admission. Condition is Fair. Problem is new. Symptoms have improved. UTI on Admission? No. rn 17:37 17:04 03/30/2019 16:27 Hospitalization Ordered by Gaurav Ndiaye DO for Inpatient df Admission. Preliminary diagnosis is Dyspnea, unspecified; Pulmonary edema; End stage renal disease; Hyperkalemia. Bed requested for Intensive Care Unit. Status is Inpatient Admission. Condition is Fair. Problem is new. Symptoms have improved. UTI on Admission? No. eb 21:38 17:37 03/30/2019 16:27 Hospitalization Ordered by Gaurav Ndiaye DO for Inpatient ea Admission. Preliminary diagnosis is Dyspnea, unspecified; Pulmonary edema; End stage renal disease; Hyperkalemia. Bed requested for Intensive Care Unit. Status is Inpatient Admission. Condition is Fair. Problem is new. Symptoms have improved. UTI on Admission? No. df
--- NOTE | 2019-03-30 16:28 | ER ---
Nurse's Notes [facility] Name: Alysa Mayes Age: 64 yrs Sex: Female : 1955 Arrival Date: 03/30/2019 Time: 14:15 Bed 7 Private MD: Diagnosis: Dyspnea, unspecified;Pulmonary edema;End stage renal disease;Hyperkalemia Presentation: 03/30 14:15 Acuity: LESLEE 1 aa5 14:15 Transition of care: patient was received from another setting of care (long-term care [facility] facility), [facility]. Onset of symptoms was March 30, 2019. Risk Assessment: Do you want to hurt yourself or someone else? Patient reports no desire to harm self or others. Initial Sepsis Screen: Does the patient meet any 2 criteria? RR > 20 per min. HR > 90 bpm. Yes Does the patient have a suspected source of infection? Yes:. Care prior to arrival: Medication(s) given: Albuterol Neb x 1, Atrovent Neb x 1, Oxygen administered. via a non-rebreather mask. 14:15 Method Of Arrival: EMS: [facility] aa5 14:15 Presenting complaint: Patient states: Refused dialysis yesterday, last dialysis was aa5 Wednesday. Pt c/o SOB today. Tachypnea noted, EMS reports 84% RA and increased to 100% with neb TX. 14:15 Initial Sepsis Screen: If YES to both, name of provider notified: Emerson Richard MD. aa5 Historical: - Allergies: 14:20 amlodipine; aa5 14:20 Amoxicillin; aa5 14:20 PENICILLINS; aa5 - Home Meds: 15:00 apixaban Oral [Active]; Arginaid 4.5 gram-156 mg/9.2 gram Oral pwpk daily [Active]; aa5 ascorbic acid (vitamin C) 500 mg tab daily [Active]; aspirin 81 mg Oral chew 1 tab once daily [Active]; atorvastatin 40 mg Oral tab 1 tab once daily [Active]; guaifenesin 400 mg Oral tab every 4 hours [Active]; [place] 10-325 mg Oral tab every 6 hours for Pain [Active]; insulin detemir subcutaneous [Active]; levofloxacin 250 mg Oral tab one time a day archie other day for foot ulcer after hemodialysis [Active]; levothyroxine 50 mcg tab 1 tab once daily [Active]; Lyrica Oral 150mg once a day [Active]; metoprolol succinate 50 mg Oral Tb24 1 tab once daily [Active]; nepafenac ophthalmic 1 drop once daily [Active]; Linda-Ryan Oral daily [Active]; Sensipar 30 mg Oral tab 2 tabs once daily [Active]; Tums 300 mg (750 mg) oral chew before meals [Active]; zinc sulfate 220 (50) mg Oral cap daily [Active]; - PMHx: 14:20 Anemia; CHF; COPD; Diabetes - NIDDM; Dialysis; Hypertension; aa5 14:25 Gout; Depression; Hypothyroidism; Hyperlipidemia; Pressure ulcers; aa5 - PSHx: 14:20 dialysis port; aa5 - Immunization history:: Adult Immunizations unknown. - Social history:: Smoking status: Patient/guardian denies using tobacco. - Ebola Screening: : No symptoms or risks identified at this time. - Family history:: not pertinent. - Hospitalizations: : No recent hospitalization is reported. Screenin:05 Abuse screen: Denies threats or abuse. Denies injuries from another. Nutritional iw screening: No deficits noted. Tuberculosis screening: No symptoms or risk factors identified. Fall Risk IV access (20 points). Assessment: 14:20 General: Appears distressed, Behavior is cooperative. Pain: Denies pain. Neuro: Level aa5 of Consciousness is obeys commands, Pt drowsy, easy to awake to verbal stimuli. . Oriented to person, place, time, situation, Barber Apprentice are equal bilaterally Moves all extremities. Facial symmetry appears normal, Pupils are PERRLA. Cardiovascular: Heart tones S1 S2 present Dialysis catheter noted to left upper chest . Rhythm is sinus tachycardia. Respiratory: Reports shortness of breath Airway is patent Respiratory effort is labored, Respiratory pattern is tachypnea Breath sounds are diminished bilaterally. GI: Abdomen is round distended, Bowel sounds present X 4 quads. : Reports she makes a very small amount of urine. EENT: No signs and/or symptoms were reported regarding the EENT system. Derm: Skin is dry, Skin is normal, Skin temperature is warm Decubitus located on left heel(s) is draining none noted Wound redressed with Kerlix. 14:35 Reassessment: RT at bedside placing pt on Bi-PAP. aa5 15:00 Reassessment: Pt with eyes closed, easy to awaken to verbal stimuli. Respirations are aa5 labored and tachypneic. Pt tolerating Bi-PAP well. . 16:00 Reassessment: pt remains on BiPAP, SpO2=98%, respirations even, labored at 24 breaths iw per minute, 2nd blood culture drawn by TIM Shaver, sent to lab. 16:30 Reassessment: Dr. Ndiaye (Hospitalist) at bedside . aa5 16:45 Neuro: resting with eyes closed, pt easy to awaken to verbal stimuli. Pt denies pain. aa5 Respirations are tachypnea, labored, pt tolerating Bi-PAP well. . 17:30 Reassessment: Pt resting with eyes closed, pt easy to awaken to verbal stimuli, pt aa5 denies pain. Pt will be transported to ICU 3 after 1900 per fish housekeeper. Equal and unlabored respirations at this time. . 18:20 Reassessment: Pt resting in bed with eyes closed, easy to awaken to verbal stimuli. aa5 Respirations even and unlabored, skin is normal/warm/dry. . 19:15 General: Appears in no apparent distress. comfortable, Behavior is calm, cooperative. ea Pain: Denies pain. Neuro: Level of Consciousness is obeys commands, Pt is drowsy, awakes with verbal stimuli. . Oriented to person, place, time, situation. Cardiovascular: Patient's skin is warm and dry. Dialysis shunt: in the anterior aspect of left upper chest, with no edema, no bleeding noted. Respiratory: Airway is patent Respiratory effort is unlabored, Respiratory pattern is regular, symmetrical, Pt remains on Bipap, tolerating well. Breath sounds are diminished bilaterally. GI: Abdomen is round distended, Bowel sounds present X 4 quads. Derm: Skin is dry, Skin is normal, Skin temperature is warm Decubitus located on left heel(s). 20:15 Reassessment: Patient and/or family updated on plan of care and expected duration. Pain ea level reassessed. Pt drowsy, awakens with verbal stimulus. Pt had bowel movement, incontinent care provided, pt tolerated well. 20:27 Reassessment: Report called to Alden DUMONT. ea 21:28 Reassessment: Patient and/or family updated on plan of care and expected duration. Pain ea level reassessed. Pt drowsy, awakens to verbal stimuli. Respiratory at bedside. Pt taken to ICU with nurse via stretcher and non rebreather, pt tolerating well. Vital Signs: 14:17 BP 144 / 82; Pulse 107; Resp 30 S; Temp 100.3(O); Pulse Ox 100% on Non-rebreather mask; aa5 Pain 0/10; 14:45 BP 150 / 75; Pulse 106; Resp 32 S; Pulse Ox 99% on BiPAP; aa5 15:00 BP 143 / 84; Pulse 102; Resp 28 S; Temp 100.4(O); Pulse Ox 99% on BiPAP; aa5 15:57 BP 140 / 84; Pulse 97; Resp 23; Pulse Ox 97% on BiPAP; jb1 16:30 aa5 16:30 BP 145 / 82; Pulse 97; Resp 22 S; Pulse Ox 98% on BiPAP; aa5 16:38 Temp 100.9(O); aa5 17:30 BP 137 / 72; Pulse 96; Resp 22 S; Pulse Ox 98% on BiPAP; aa5 18:18 BP 137 / 73; Pulse 97; Resp 20 S; Temp 99.9(O); Pulse Ox 100% on BiPAP; aa5 19:31 BP 141 / 84; Pulse 102; Resp 20; Temp 97.8(TE); Pulse Ox 100% on BiPAP; ea 20:08 BP 140 / 82; Pulse 102; Resp 20; Temp 98.4(TE); Pulse Ox 100% on BiPAP; ea 20:59 BP 155 / 79; Pulse 103; Resp 21; Temp 98.7; Pulse Ox 100% on BiPAP; ea 21:15 BP 148 / 78; Pulse 100; Resp 19; Temp 98.6; Pulse Ox 100% on BiPAP; ea 16:30 Bi-PAP settings: IPAP 15, EPAP 8, Rate 14, O2 30%. aa5 ED Course: 14:15 Patient arrived in ED. aa5 14:15 Arm band placed on Patient placed in an exam room, on a stretcher. aa5 14:15 Patient has correct armband on for positive identification. Placed in gown. Bed in low aa5 position. Call light in reach. Side rails up X2. salesperson surgical appliances on. Pulse ox on. NIBP on. 14:19 Triage completed. aa5 14:21 Emerson Richard MD is Attending Physician. rn 14:22 Tonia Alexander, RN is Primary Nurse. aa5 14:28 EKG done, by instrument and control technician. reviewed by Emerson Richard MD. at1 14:30 Missed attempt(s): 24 gauge in right forearm. Bleeding controlled, band aid applied, aa5 catheter tip intact. 14:40 Missed attempt(s): 22 gauge in right forearm. Missed attempt by Lizeth Lang RN. aa5 Bleeding controlled, band aid applied, catheter tip intact. 14:55 Missed attempt(s): 24 gauge in left wrist. Bleeding controlled, band aid applied, aa5 catheter tip intact. 15:05 Initial lab(s) drawn, by me, sent to lab. Inserted saline lock: 22 gauge in left ,using aa5 aseptic technique. breast Blood collected. 15:05 First set of blood cultures drawn by me. aa5 15:11 XRAY CXR (1 view) In Process Unspecified. EDMS 16:00 Inserted saline lock: 22 gauge in right wrist, using aseptic technique. ,using aseptic aa5 technique. Inserted by Sivakumar Hurst RN. 16:26 Gaurav Ndiaye DO is Hospitalizing Provider. rn 19:06 Report given to TIM Kuo and TIM Arias. aa5 19:33 No provider procedures requiring assistance completed. Patient admitted, IV remains in ea place. 19:46 Primary Nurse role handed off by Tonia Alexander, TIM ed1 19:59 Shiela Yusuf, TIM is Primary Nurse. ea Administered Medications: 16:25 Drug: D50W 50 ml Route: IVP; Site: Other; ao 18:25 Follow up: Response: No adverse reaction aa5 16:29 Drug: Sodium Bicarbonate 1 amp Route: IVP; Site: Other; ao 18:25 Follow up: Response: No adverse reaction aa5 16:30 Drug: Rocephin - (cefTRIAXone) 1 grams Route: IVPB; Infused Over: 30 mins; Site: Other; ao 16:40 Follow up: Response: No adverse reaction aa5 16:30 Drug: Insulin Regular Human 5 units {Co-Signature: aa5 (Tonia Aleaxnder RN).} Route: ao IVP; Site: Other; 18:25 Follow up: Response: No adverse reaction aa5 Point of Care Testing: Blood Glucose: 14:30 Blood Glucose: 189 mg/dL; aa5 18:25 Blood Glucose: 155 mg/dL; aa5 Ranges: Outcome: 16:27 Decision to Hospitalize by Provider. rn 19:15 Instructed on the need for admit. ea 21:07 Admitted to ICU accompanied by nurse, room 3, Report called to Alden DUMONT ea 21:07 Condition: stable 21:38 Patient left the ED. ea Signatures: Dispatcher [employer] EDTim Bruce jb1 Lizeth Lang, RN TIM iw Emerson Richard MD MD rn Calderon, Tonia RN TIM aa5 Tawnya Sanchez RN TIM ed1 Mai Sue, slip cover maker EKG Tat1 Sivakumar Hurst, RN Shiela Shook RN TIM Alexander RN aa5 Corrections: (The following items were deleted from the chart) 14:17 14:17 Arm band placed on Patient placed in an exam room, on a stretcher, aa5 aa5 16:47 16:46 Inserted saline lock: 22 gauge in right wrist, using aseptic technique. ,using aa5 aseptic technique. Inserted by Sivakumar Hurst RN aa5 18:34 14:20 Derm: Skin is dry, Skin is normal, Skin temperature is warm Decubitus located on aa5 left heel(s) is draining none noted aa5
--- NOTE | 2019-03-30 16:55 | P.HP ---
Certification for Inpatient Patient admitted to: Inpatient With expected LOS: >2 Midnights Patient will require the following post-hospital care: Other (Return back to halfway) Practitioner: I am a practitioner with admitting privileges, knowledge of patient current condition, hospital course, and medical plan of care. Services: Services provided to patient in accordance with Admission requirements found in Title 42 Section 412.3 of the Code of Federal Regulations Patient History Date of Service: 03/30/19 Primary Care Provider: long term; Nephrology-Dr. Desai Reason for admission: Short of breath History of Present Illness: 64-year-old female with multiple medical problems including end -stage renal disease on hemodialysis, diabetes, CHF with poor compliance of dialysis. She came into the ER with increasing shortness of breath. ER reports that the patient missed her last 2 dialysis. The patient was tachypneic with labored breathing. She also had a fever in the ER. Chest x-ray showed pulmonary edema. Potassium was 7.6. Sodium 139. BUN of 111 , creatinine 11.3. GFR 4. Glucose 141. White count 16.2. Hemoglobin 11. Platelet count of 199. BNP elevated. Pro calcitonin elevated. Lactic acid within normal range. Blood, urine and sputum cultures to be obtained. Patient currently on BiPAP at this time. Patient will be admitted for further evaluation and treatment. When I saw the patient ER, she appeared comfortable on BiPAP. She was able to converse. She admits missing dialysis. She reports that she did not want go to her last dialysis as she did not feel well. Previous hospitalization March 16. Patient had acute respiratory failure at that time with hyperkalemia also for missed hemodialysis. Allergies amoxicillin [Amoxicillin] Allergy (Verified 06/08/18 19:55) unknown Penicillins Adverse Reaction (Mild, Verified 06/08/18 19:55) itching rash amlodipine Adverse Reaction (Verified 06/08/18 19:55) Itching/Hives/Rash Home medications list reviewed: Yes Home Medications: Atorvastatin Calcium 40 mg PO BEDTIME 02/17/18 Insulin Detemir [Levemir*] 8 unit SQ BID 02/17/18 Levothyroxine [Synthroid*] 50 mcg PO [id number] 02/17/18 Pregabalin [Lyrica*] 150 mg PO BID 06/08/18 Hydrocodone Bit/Acetaminophen [[place] 7.5-325 Tablet] 1 each PO Q6H PRN 11/20/18 Nepafenac [Ilevro] 1 drop OP DAILY PRN 11/20/18 Zinc Sulfate [Zinc Sulfate*] 220 mg PO DAILY 11/20/18 Apixaban [Eliquis *] 2.5 mg PO BID 03/15/19 Arginald Packet 1 packet PO DAILY 03/15/19 Ascorbic Acid [Vitamin C] 500 mg PO DAILY 03/15/19 Aspirin 81 mg PO DAILY 03/15/19 Calcium Carbonate [Tums] 2 tab.chew PO TIDWM 03/15/19 Cinacalcet HCl [Sensipar*] 30 mg PO DAILY AFTER SUPPER 03/15/19 Folic Acid/Vit Bcomp,C [Linda-Ryan Tablet] 1 tab PO DAILY 03/15/19 Guaifenesin [Mucus Relief Chest Congestion] 200 mg PO Q4H PRN 03/15/19 Lanthanum Carbonate [Fosrenol] 1 tab PO TIDWM 03/15/19 Lanthanum Carbonate [Fosrenol] 1,000 mg PO BID 03/15/19 Medihoney [Medihoney Woundcare Gel*] 1 appl TD M,W,F 03/15/19 Metoprolol Succinate [Toprol Xl*] 50 mg PO DAILY 03/15/19 levoFLOXacin [Levaquin] 250 mg PO DAILY #10 tab 03/16/19 - Past Medical/Surgical History Diabetic: Yes -: HTN -: COPD -: Diabetes mellitus type 2 -: Anemia of chronic disease -: ESRD, poor compliance with dialysis -: Depression with anxiety -: CHF, diastolic dysfunction -: Gout -: COPD -: Chronic left pressure ulcer heel -: Hypothyroidism -: Right eye December 25 2014-cataract -: Left eye January 15 2015-cataract -: right groin fistula -: Left chest HD access Psychosocial/ Personal History: Single, Children-2, Work-none - Family History Father -: Heart disease, Cancer Notes: prostate cancer Mother -: Heart disease, Hypertension, Diabetes, Cancer Notes: breast CA - Social History Smoking Status: Unknown if ever smoked Alcohol use: No CD- Drugs: No Caffeine use: No Place of Residence: [facility] Review of Systems General: Weakness, As per HPI Eyes: Unremarkable ENT: Unremarkable Respiratory: Shortness of Breath, As per HPI Cardiovascular: Unremarkable Gastrointestinal: Unremarkable Genitourinary: Unremarkable Musculoskeletal: Unremarkable Integumentary: As per HPI Neurological: Weakness, As per HPI Lymphatics: Unremarkable Physical Examination - Physical Exam General: Alert, In no apparent distress, Oriented x3, Cooperative, Other ( Patient currently on BiPAP) HEENT: Atraumatic, Normocephalic, Mucous membr. moist/pink Neck: Supple, No Thyromegaly Respiratory: Diminished (To the bases bilateral) Cardiovascular: Normal pulses, Regular rate/rhythm Gastrointestinal: Normal bowel sounds, Soft and benign, Non-distended, No tenderness, No masses, No rebound, No guarding Musculoskeletal: No tenderness, No warmth Integumentary: Tenderness/swelling (Minimal pitting edema to the lower extremities.), Other (Chronic left heel ulcer noted no evidence of cellulitis) Neurological: Normal speech, Normal strength at 5/5 x4 extr, Normal tone, Normal affect - Studies Laboratory Data (last 24 hrs) 03/30/19 15:05: WBC 16.2 H D, Hgb 11.3 L, Hct 34.2 L, Plt Count 199 03/30/19 15:05: Sodium 139, Potassium 7.6 H*, BUN 111 H D, Creatinine 11.30 H* D , Glucose 141 H Microbiology Data (last 24 hrs): 03/30/19 15:08 Nasopharnyx Influenza Type A Antigen Screen - Final 03/30/19 15:08 Nasopharnyx Influenza Type B Antigen Screen - Final Assessment and Plan - Plan Impression: Shortness of breath secondary to acute on chronic respiratory failure secondary to pulmonary edema/acute on chronic congestive heart failure-diastolic dysfunction complicated with missed dialysis End-stage renal disease on hemodialysis with poor compliance with dialysis Hyperkalemia secondary to above Fever unknown etiology Diabetes mellitus type 2, insulin-dependent COPD Chronic left heel ulcer Hypothyroidism Anemia of chronic disease Plan: Shortness of breath secondary to acute on chronic respiratory failure secondary to pulmonary edema/acute on chronic congestive heart failure-diastolic dysfunction complicated with missed dialysis: Patient will be admitted to ICU. Case discussed with nephrology. Patient will get emergent dialysis. Will obtain urine, blood and sputum cultures. Patient did have a fever with elevated white count and pro calcitonin. Will start cefepime. Will consult pulmonology to further evaluate. Will address compliance with dialysis as the patient improves. Continue to monitor electrolytes. Respiratory to be consulted to wean off BiPAP. Will provide DVT prophylaxis. Continue to reassess. End-stage renal disease on hemodialysis with poor compliance with dialysis: Patient will receive emergent dialysis. Case discussed with nephrology. Hyperkalemia secondary to above: Patient get emergent dialysis Fever unknown etiology: Etiology unknown. Will obtain blood, urine and sputum culture. Will start IV cefepime. Patient with elevated white count and pro calcitonin. Lactic acid within normal range. Diabetes mellitus type 2, insulin-dependent: Will continue with sliding scale. COPD: Continue with COPD medication. Chronic left heel ulcer: Will have wound care evaluate and treat. Hypothyroidism: Need to obtain and restart halfway medication. Will check tsh Anemia of chronic disease: Will continue to monitor closely. Discharge Plan: [facility] Plan to discharge in: Greater than 2 days - Advance Directives Does patient have a Living Will: No Does patient have a Durable POA for Healthcare: No - Code Status/Comfort Care Code Status Assessed: Yes (Patient is full code.) Time Spent Managing Pts Care (In Minutes): 55
--- NOTE | 2019-03-30 17:05 | EKG ---
Test Date: 2019-03-30 Test Time: 14:29:49 Piano Stringer: LAURIE MEASUREMENT RESULTS: Intervals: Rate: 106 WV: 178 QRSD: 158 QT: 378 QTc: 502 [place]: P: 67 WV: 178 QRS: 61 T: -63 INTERPRETIVE STATEMENTS: Sinus tachycardia Left bundle branch block Abnormal ECG Compared to ECG 03/15/2019 14:42:06 Fusion complex(es) no longer present Electronically Signed On 03-30-19 17:04:29 CDT by Samson Romeo
[2019-03-30] MEDS ORDERED: ALBUTEROL 2.5 MG/3 ML NEB SOL NEB PRN (19:10)
[2019-03-30] MEDS ORDERED: ONDANSETRON 4 MG/2 ML VIAL IV PRN (19:10)
[2019-03-30] MEDS ORDERED: IPRATROPIUM BROM 0.5MG/2.5ML NEB PRN (19:10)
[2019-03-30] MEDS ORDERED: HYDRALAZINE HCL 20 MG/ML VIAL IV PRN (19:10)
[2019-03-30] MEDS ORDERED: MIDODRINE HCL 5 MG TABLET PO PRN (20:11)
[2019-03-30] MEDS: INSULIN -REGULAR HUMAN 50 UNIT/0.5 ML ML SQ SCH (21:00)
[2019-03-30] MEDS: ARFORMOTEROL TARTRATE 15 MCG/2 ML VIAL.NEB NEB SCH (21:35)
[2019-03-30 22:51] LABS: CKMB Creatine Kinase MB 2.5 ng/mL (0.3-3.6); Troponin I 0.02 ng/mL (0.0-0.045)
[2019-03-30 22:58] LABS: Thyroid Stimulating Hormone 1.3 uIU/mL (0.360-3.740)
[2019-03-30] MEDS ORDERED: ALBUMIN HUMAN 25% 50 ML IV SCH (23:45)
[2019-03-31 06:01] LABS: Absolute Lymphocytes (CBC) 0.9 K/uL (0.7-4.9); Absolute Monocytes 0.5 K/uL (0.1-1.3); Absolute Neutrophil 11.2 K/uL (1.8-8.0); Basophils % 0.5 % (0-1.3); Hematocrit 35.8 % (36.0-45.0); Lymphocytes % 6.8 % (15.3-44.8); MPV 9.9 fL (7.6-11.3); Monocytes % 4.1 % (3.3-12.3); RBC Red Blood Cell Count 4.06 M/uL (3.86-4.86)
[2019-03-31 06:17] LABS: BUN Blood Urea Nitrogen 59 mg/dL (7-18); Bicarbonate 29 mmol/L (21-32); CKMB Creatine Kinase MB 1.7 ng/mL (0.3-3.6); Creatine Phosphokinase 260 U/L (26-192); Glucose Level 87 mg/dL (74-106); Magnesium 3.1 mg/dL (1.8-2.4); Potassium 5.2 mmol/L (3.5-5.1); Sodium Level 142 mmol/L (136-145); Troponin I < 0.02 ng/mL (0.0-0.045)
[2019-03-31] MEDS ORDERED: HYDROCODONE/APAP 7.5/325 MG TAB PO PRN (06:57)
[2019-03-31] MEDS ORDERED: NEPAFENAC OP PRN (06:57)
--- NOTE | 2019-03-31 07:29 | RAD REPORT ---
EXAM DESCRIPTION: [facility] Single View03/31/2019 7:10 am CLINICAL HISTORY: Shortness of breath COMPARISON: March 30, 2019 FINDINGS: Mild improvement in the bilateral pulmonary opacities. The heart is mildly enlarged. Cent ral venous line remains in place IMPRESSION: Mild improvement in the pulmonary edema
[2019-03-31] MEDS: INSULIN -REGULAR HUMAN 50 UNIT/0.5 ML ML SQ SCH ×4 (07:30→20:36)
[2019-03-31] MEDS: ARFORMOTEROL TARTRATE 15 MCG/2 ML VIAL.NEB NEB SCH ×2 (08:14→20:00)
[2019-03-31] MEDS: MEDIHONEY 44 ML TOPICAL TUBE TOP SCH (09:00)
[2019-03-31] MEDS: METOPROLOL XL 50 MG TAB PO SCH (09:00)
[2019-03-31] MEDS ORDERED: FAMOTIDINE 20 MG/2 ML VIAL IV SCH (09:00)
[2019-03-31] MEDS ORDERED: CEFEPIME 1 GM/VIAL IV SCH (09:00)
[2019-03-31] MEDS ORDERED: ENOXAPARIN 30 MG/0.3 ML SQ SCH (09:00)
[2019-03-31] MEDS: PREGABALIN 150 MG CAP PO SCH ×2 (09:00→20:35)
[2019-03-31] MEDS ORDERED: CEFEPIME 1 GM in NA CHLORIDE 0.9% 100 ML IV SCH (09:00)
[2019-03-31] MEDS: CEFEPIME/SWI 1gm 10 ML IV SCH (09:00)
[2019-03-31] MEDS: ASCORBIC ACID 500 MG TABLET PO SCH (10:37)
[2019-03-31] MEDS: CALCIUM CARBONATE CHEW 500MG TAB PO SCH ×3 (10:37→18:26)
[2019-03-31] MEDS: ASPIRIN 81 MG CHEWABLE TABLET PO SCH (10:37)
[2019-03-31] MEDS: ZINC SULFATE 220 MG CAP PO SCH (10:37)
[2019-03-31] MEDS: FAMOTIDINE 20 MG TAB PO SCH (10:37)
[2019-03-31] MEDS: MULTIVITAMINS,THERAPEUT 1 TAB PO SCH (10:38)
[2019-03-31] MEDS: APIXABAN 2.5 MG TABLET PO SCH ×2 (10:38→20:36)
[2019-03-31] MEDS: CINACALCET HCL 30 MG TAB PO SCH (10:39)
--- NOTE | 2019-03-31 12:31 | P.PN ---
Subjective Date of Service: 03/31/19 Primary Care Provider: care home; Nephrology-Dr. Desai Chief Complaint: Short of breath Subjective: Doing well Physical Examination - Vital Signs Temperature: 98.4 F Blood Pressure: 100/90 Pulse: 66 Respirations: 12 Pulse Ox (%): 100 - Physical Exam General: Alert, In no apparent distress HEENT: Atraumatic Neck: Supple Respiratory: Crackles/rales (Slight crackles to the bases) Cardiovascular: Normal pulses, Regular rate/rhythm Gastrointestinal: No masses, No rebound, No guarding Musculoskeletal: No warmth Neurological: Normal speech, Normal strength at 5/5 x4 extr, Normal tone, Normal affect - Studies Laboratory Data (last 24 hrs) 03/30/19 15:05: WBC 16.2 H D, Hgb 11.3 L, Hct 34.2 L, Plt Count 199 03/30/19 15:05: Sodium 139, Potassium 7.6 H*, BUN 111 H D, Creatinine 11.30 H* D , Glucose 141 H Microbiology Data (last 24 hrs): 03/30/19 15:05 Blood - Blood Anaerobic Blood Culture - Final 03/30/19 15:08 Nasopharnyx Influenza Type A Antigen Screen - Final 03/30/19 15:08 Nasopharnyx Influenza Type B Antigen Screen - Final Medications List Reviewed: Yes Assessment & Plan Discharge Plan: Skilled Nursing Plan to discharge in: 72 Hours Physician Review Additional Text: Impression: Shortness of breath secondary to acute on chronic respiratory failure secondary to pulmonary edema/acute on chronic congestive heart failure-diastolic dysfunction complicated with missed dialysis with possible bilateral pneumonia End-stage renal disease on hemodialysis with poor compliance with dialysis Hyperkalemia secondary to above Fever unknown etiology suspect underlying bilateral pneumonia Diabetes mellitus type 2, insulin-dependent COPD Chronic left heel ulcer Hypothyroidism Anemia of chronic disease Plan: Shortness of breath secondary to acute on chronic respiratory failure secondary to pulmonary edema/acute on chronic congestive heart failure-diastolic dysfunction complicated with missed dialysis with possible bilateral pneumonia: Patient received dialysis yesterday with improvement of potassium. Patient to get dialysis again today. Case discussed with nephrology. Patient currently on antibiotic therapy for possible underlying pneumonia. Cultures obtained and are pending. Continue to monitor closely. Patient has been weaned off BiPAP. End-stage renal disease on hemodialysis with poor compliance with dialysis: Patient received dialysis yesterday. Case discussed with nephrology. Patient to get dialysis again today. Hyperkalemia secondary to above: Continue as above Fever unknown etiology suspect underlying bilateral pneumonia: Continue with antibiotic therapy. Recheck chest x-ray tomorrow. Cultures obtained and are pending. Diabetes mellitus type 2, insulin-dependent: Will continue with sliding scale. COPD: Continue with COPD medication. Chronic left heel ulcer: Will have wound care evaluate and treat. Hypothyroidism: Restart home medication Anemia of chronic disease: Will continue to monitor closely. Time Spent Managing Pts Care (In Minutes): 55
[2019-03-31] MEDS: ATORVASTATIN 40 MG TAB PO SCH (20:35)
--- NOTE | 2019-03-31 20:55 | P.CNS ---
Date of Consult: 03/31/19 Reason for Consult: Hyperkalemia, fluif overload Primary Care Provider: shelter; Nephrology-Dr. Desai Chief Complaint: Short of breath History of Present Illness: A 64 Y/o woman with PMhx of ESRD on HD MWF from via Permanent cath, DM with neuropathy, CAD and CHF Pt missed HD yesterday because she didint feel good presented to ER with SOB found to have hyperkalemia and leuckocytosis had HD yesterday currently , no SOB, chest pain or palpitation Allergies amoxicillin [Amoxicillin] Allergy (Verified 06/08/18 19:55) unknown Penicillins Adverse Reaction (Mild, Verified 06/08/18 19:55) itching rash amlodipine Adverse Reaction (Verified 06/08/18 19:55) Itching/Hives/Rash Home Medications: Atorvastatin Calcium 40 mg PO BEDTIME 02/17/18 Insulin Detemir [Levemir*] 8 unit SQ BID 02/17/18 Levothyroxine [Synthroid*] 50 mcg PO [id number] 02/17/18 Pregabalin [Lyrica*] 150 mg PO BID 06/08/18 Hydrocodone Bit/Acetaminophen [[place] 7.5-325 Tablet] 1 each PO Q6H PRN 11/20/18 Nepafenac [Ilevro] 1 drop OP DAILY PRN 11/20/18 Zinc Sulfate [Zinc Sulfate*] 220 mg PO DAILY 11/20/18 Apixaban [Eliquis *] 2.5 mg PO BID 03/15/19 Arginald Packet 1 packet PO DAILY 03/15/19 Ascorbic Acid [Vitamin C] 500 mg PO DAILY 03/15/19 Aspirin 81 mg PO DAILY 03/15/19 Calcium Carbonate [Tums] 2 tab.chew PO TIDWM 03/15/19 Cinacalcet HCl [Sensipar*] 2 tab PO DAILY 03/15/19 Folic Acid/Vit Bcomp,C [Linda-Ryan Tablet] 1 tab PO DAILY 03/15/19 Guaifenesin [Mucus Relief Chest Congestion] 200 mg PO Q4H PRN 03/15/19 Medihoney [Medihoney Woundcare Gel*] 1 appl TD M,W,F 03/15/19 Metoprolol Succinate [Toprol Xl*] 50 mg PO DAILY 03/15/19 levoFLOXacin [Levaquin] 250 mg PO DAILY #10 tab 03/16/19 - Past Medical/Surgical History Diabetic: Yes -: HTN -: COPD -: Diabetes mellitus type 2 -: Anemia of chronic disease -: ESRD, poor compliance with dialysis -: Depression with anxiety -: CHF, diastolic dysfunction -: Gout -: COPD -: Chronic left pressure ulcer heel -: Hypothyroidism -: Right eye December 25 2014-cataract -: Left eye January 15 2015-cataract -: right groin fistula -: Left chest HD access Psychosocial/ Personal History: Single, Children-2, Work-none - Family History Father Medical History: Heart disease, Cancer Notes: prostate cancer Mother Medical History: Heart disease, Hypertension, Diabetes, Cancer Notes: breast CA - Social History Smoking Status: Unknown if ever smoked Alcohol use: No CD- Drugs: No Caffeine use: No Place of Residence: [facility] Physical Examination Temp Pulse Resp BP Pulse Ox 98.0 F 84 17 117/53 L 100 03/31/19 16:00 03/31/19 18:00 03/31/19 18:00 03/31/19 18:00 03/31/19 18:00 General: In no apparent distress HEENT: Atraumatic Neck: Supple, Without JVD or thyroid abnormality Respiratory: Diminished Cardiovascular: No edema, Regular rate/rhythm, Normal S1 S2, No rubs, No murmurs Gastrointestinal: Soft and benign - Problems (1) Hyperkalemia Current Visit: No Status: Acute Conclusions/Impression: End-stage renal disease. HD yesterday will cont MWF renal dose meds . Hyperkalemia, Resolved Low K diet HD Metabolic bone disease, continue PhosLo. Anemia of chronic disease, no need for Epogen. Atrial fibrillation, BB on hold now resume after HD PNA? cont abx
[2019-04-01 00:55] LABS: Urine Appearance CLOUDY; Urine Bilirubin NEGATIVE (NEG); Urine Blood 2+ (NEG); Urine Color DK YELLOW; Urine Glucose NEGATIVE (NEG); Urine Protein 2+ (NEG); Urine Specific Gravity 1.015 (1.005-1.030); Urine Urobilinogen 0.2 mg/dL (0.2-1.0)
[2019-04-01 01:53] LABS: Urine Bacteria <20 /HPF (<20); Urine Culture Reflex Order REFLEXED
[2019-04-01] MEDS: MEDIHONEY 44 ML TOPICAL TUBE TOP SCH (04:56)
[2019-04-01 05:47] LABS: Absolute Lymphocytes (CBC) 0.8 K/uL (0.7-4.9); Absolute Monocytes 0.6 K/uL (0.1-1.3); Absolute Neutrophil 5.7 K/uL (1.8-8.0); Basophils % 1.3 % (0-1.3); Eosinophils % 5.6 % (0-4.4); Hematocrit 35.2 % (36.0-45.0); Lymphocytes % 10.1 % (15.3-44.8); Monocytes % 7.8 % (3.3-12.3); RBC Red Blood Cell Count 3.94 M/uL (3.86-4.86)
[2019-04-01] MEDS: LEVOTHYROXINE SOD 0.05 MG TABLET PO SCH (05:55)
[2019-04-01] MEDS: ACETAMINOPHEN 500 MG TAB PO PRN ×2 (05:56→22:47)
[2019-04-01 06:08] LABS: Potassium 4.5 mmol/L (3.5-5.1)
[2019-04-01 06:17] VITALS: BMI 30.6
[2019-04-01] MEDS: INSULIN -REGULAR HUMAN 50 UNIT/0.5 ML ML SQ SCH ×4 (07:30→20:46)
[2019-04-01] MEDS: ARFORMOTEROL TARTRATE 15 MCG/2 ML VIAL.NEB NEB SCH ×2 (07:45→20:00)
[2019-04-01] MEDS: CEFEPIME/SWI 1gm 10 ML IV SCH (08:35)
[2019-04-01] MEDS: APIXABAN 2.5 MG TABLET PO SCH ×2 (08:35→20:45)
[2019-04-01] MEDS: ZINC SULFATE 220 MG CAP PO SCH (08:35)
[2019-04-01] MEDS: MULTIVITAMINS,THERAPEUT 1 TAB PO SCH (08:36)
[2019-04-01] MEDS: CALCIUM CARBONATE CHEW 500MG TAB PO SCH ×3 (08:36→17:18)
[2019-04-01] MEDS: ASPIRIN 81 MG CHEWABLE TABLET PO SCH (08:36)
[2019-04-01] MEDS: FAMOTIDINE 20 MG TAB PO SCH (08:36)
[2019-04-01] MEDS: ASCORBIC ACID 500 MG TABLET PO SCH (08:36)
[2019-04-01] MEDS: CINACALCET HCL 30 MG TAB PO SCH (08:37)
[2019-04-01] MEDS: PREGABALIN 150 MG CAP PO SCH ×2 (08:37→20:45)
[2019-04-01] MEDS: METOPROLOL XL 50 MG TAB PO SCH (08:37)
--- NOTE | 2019-04-01 10:56 | P.PN ---
Subjective Date of Service: 04/01/19 Primary Care Provider: alf; Nephrology-Dr. Desai Chief Complaint: Short of breath Subjective: Other (Patient appears improved.) Physical Examination - Vital Signs Temperature: 97.4 F Blood Pressure: 107/64 Pulse: 91 Respirations: 19 Pulse Ox (%): 94 - Physical Exam General: Alert, In no apparent distress, Oriented x3, Cooperative HEENT: Atraumatic Neck: Supple Respiratory: Crackles/rales (Crackles to the bases improved) Cardiovascular: Normal pulses, Regular rate/rhythm Gastrointestinal: Normal bowel sounds, Soft and benign, Non-distended Neurological: Normal speech, Normal strength at 5/5 x4 extr, Normal tone - Studies Microbiology Data (last 24 hrs): 03/30/19 15:05 Blood - Blood Anaerobic Blood Culture - Final Medications List Reviewed: Yes Assessment & Plan Discharge Plan: [facility] Plan to discharge in: 48 Hours Physician Review Additional Text: Impression: Shortness of breath secondary to acute on chronic respiratory failure secondary to pulmonary edema/acute on chronic congestive heart failure-diastolic dysfunction complicated with missed dialysis with possible bilateral pneumonia End-stage renal disease on hemodialysis with poor compliance with dialysis Hyperkalemia secondary to above Fever unknown etiology suspect underlying bilateral pneumonia Diabetes mellitus type 2, insulin-dependent COPD Chronic left heel ulcer Hypothyroidism Anemia of chronic disease Plan: Shortness of breath secondary to acute on chronic respiratory failure secondary to pulmonary edema/acute on chronic congestive heart failure-diastolic dysfunction complicated with missed dialysis with possible bilateral pneumonia: Patient received dialysis again yesterday. Breathing improved. Will follow up on chest x-ray today. Will wean off oxygen. Maintain sats above 90%. Patient remains on IV antibiotic therapy for possible underlying pneumonia. Cultures obtained. Await final results. Will transfer patient to the floor. Will have physical therapy assess and ambulate. Will discuss further with nephrology. End-stage renal disease on hemodialysis with poor compliance with dialysis: Patient received dialysis yesterday. Continue with nephrology recommendation Hyperkalemia secondary to above: Continue as above Fever unknown etiology suspect underlying bilateral pneumonia: Continue with antibiotic therapy. Recheck chest x-ray today. Cultures obtained and are pending. Diabetes mellitus type 2, insulin-dependent: Will continue with sliding scale. COPD: Continue with COPD medication. Chronic left heel ulcer: Continue with wound care recommendation. Hypothyroidism: Continue medication Anemia of chronic disease: Will continue to monitor closely. Time Spent Managing Pts Care (In Minutes): 55
--- NOTE | 2019-04-01 11:28 | RAD REPORT ---
EXAM DESCRIPTION: [facility] Single View04/01/2019 11:12 am CLINICAL HISTORY: Shortness of breath COMPARISON: March 31 FINDINGS: The pulmonary opacities have partially resolved. No other change IMPRESSION: Mild pulmonary edema which has improved since prior exam
--- NOTE | 2019-04-01 16:26 | PN ---
Date of Progress Note: 04/01/2019 Chief Complaint: Respiratory failure, hypoxemia, congestive heart failure secondary to severe fluid overload. Subjective: The patient missed dialysis on Wednesday and came to the hospital on complaining of severe shortness of breath and generalized weakness and anasarca. The patient is admitted to ICU for congestive heart failure exacerbation. She was found to have hyperkalemia and leukocytosis. Blood cultures were obtained and pending. The patient is on multiple blood pressure medication. She has history of intradialytic hypotension and congestive heart failure with diastolic dysfunction. The patient is on beta-demar for congestive heart failure. Review of Systems: The patient denies fever, chills. Shortness of breath has improved. The patient is bedbound. Denies hemoptysis. Physical Examination: Lungs: Few crackles at bases. Heart: S1 and S2. ABDOMEN: Soft and benign. Extremities: Edema mild in both legs. Laboratory Data: Hemoglobin 11.0, WBC improved from 15.2 to 7.6, platelet count 152,000. Chemistry showed sodium 138, potassium 4.5, chloride 102, CO2 28 , BUN 55, creatinine 7.06, magnesium 2.0, calcium 8.2, glucose 139. Impression And Plan: 1. End-stage renal disease, severe hyperkalemia. On arrival to the hospital potassium was 7.6 with treatment improved to 5.2 when dialysis was done with emergent procedure to control hyperkalemia. Potassium level today is 4.5. Continue low-potassium diet and renal diet. 2. Fluid overload. The patient received dialysis. Ultrafiltration was affectively done and the patient is feeling better. Monitor p.o. fluid intake and continue p.o. fluid restriction and low-sodium diet. 3. Renal osteodystrophy. Continue renal diet and binders. 4. Congestive heart failure. Continue beta-demar. Monitor vital signs and adjust medications according to blood pressure. 5. Anemia. Her hemoglobin is stable. There is no evidence of bleeding. 6. Hyperphosphatemia. Monitor phosphorus level. Adjust binders. I spent total 36 min including 25 min to coordinate care plan. JUAN/HERIBERTO Voice ID: [id number] Report ID: [id number] SRAA
[2019-04-01] MEDS: ATORVASTATIN 40 MG TAB PO SCH (20:45)
[2019-04-01] MEDS ORDERED: JUVEN PACKET PO SCH (21:00)
[2019-04-02] MEDS: LEVOTHYROXINE SOD 0.05 MG TABLET PO SCH (05:26)
[2019-04-02 06:25] LABS: Absolute Lymphocytes (CBC) 0.7 K/uL (0.7-4.9); Absolute Monocytes 0.7 K/uL (0.1-1.3); Basophils % 1.1 % (0-1.3); Eosinophils % 6.3 % (0-4.4); Hematocrit 36.1 % (36.0-45.0); Lymphocytes % 10.5 % (15.3-44.8); MPV 10.1 fL (7.6-11.3); Monocytes % 9.7 % (3.3-12.3)
[2019-04-02 06:46] LABS: Magnesium 3.5 mg/dL (1.8-2.4); Potassium 4.9 mmol/L (3.5-5.1)
[2019-04-02] MEDS: INSULIN -REGULAR HUMAN 50 UNIT/0.5 ML ML SQ SCH ×2 (07:30→11:30)
[2019-04-02] MEDS: CEFEPIME/SWI 1gm 10 ML IV SCH (08:18)
[2019-04-02] MEDS: MULTIVITAMINS,THERAPEUT 1 TAB PO SCH (08:18)
[2019-04-02] MEDS: FAMOTIDINE 20 MG TAB PO SCH (08:19)
[2019-04-02] MEDS: PREGABALIN 150 MG CAP PO SCH (08:19)
[2019-04-02] MEDS: ASPIRIN 81 MG CHEWABLE TABLET PO SCH (08:20)
[2019-04-02] MEDS: METOPROLOL XL 50 MG TAB PO SCH (08:20)
[2019-04-02] MEDS: CALCIUM CARBONATE CHEW 500MG TAB PO SCH ×3 (08:20→16:06)
[2019-04-02] MEDS: ASCORBIC ACID 500 MG TABLET PO SCH (08:21)
[2019-04-02] MEDS: APIXABAN 2.5 MG TABLET PO SCH (08:21)
[2019-04-02] MEDS: ZINC SULFATE 220 MG CAP PO SCH (08:33)
[2019-04-02] MEDS: ARFORMOTEROL TARTRATE 15 MCG/2 ML VIAL.NEB NEB SCH (08:45)
--- NOTE | 2019-04-02 09:10 | P.DS ---
Admission Date: 03/30/19 Discharge Date: 04/02/19 Primary Care Provider: correction; Nephrology-Dr. Desai Disposition: TRANSFER TO [facility] Discharge Condition: GOOD Reason for Admission: Short of breath Consultations: Nephrology-Dr. Zabala/Dr. Brizuela Procedures: Follow up CXR: COMPARISON: March 31 FINDINGS: The pulmonary opacities have partially resolved. No other change IMPRESSION: Mild pulmonary edema which has improved since prior exam Medical Problem List: Shortness of breath secondary to acute on chronic respiratory failure secondary to pulmonary edema/acute on chronic congestive heart failure-diastolic dysfunction complicated with missed dialysis End-stage renal disease on hemodialysis with poor compliance with dialysis Hyperkalemia secondary to above Fever unknown etiology likely related to atelectasis and above Diabetes mellitus type 2, insulin-dependent History of Pulmonary embolus on chronic anti coagulation therapy Chronic left heel ulcer Hypothyroidism Anemia of chronic disease Possible underlying depression Brief History of Present Illness: 64-year-old female with multiple medical problems including end -stage renal disease on hemodialysis, diabetes, CHF with poor compliance of dialysis. She came into the ER with increasing shortness of breath. ER reports that the patient missed her last 2 dialysis. The patient was tachypneic with labored breathing. She also had a fever in the ER. Chest x-ray showed pulmonary edema. Potassium was 7.6. Sodium 139. BUN of 111 , creatinine 11.3. GFR 4. Glucose 141. White count 16.2. Hemoglobin 11. Platelet count of 199. BNP elevated. Pro calcitonin elevated. Lactic acid within normal range. Blood, urine and sputum cultures to be obtained. Patient currently on BiPAP at this time. Patient will be admitted for further evaluation and treatment. When I saw the patient ER, she appeared comfortable on BiPAP. She was able to converse. She admits missing dialysis. She reports that she did not want go to her last dialysis as she did not feel well. Previous hospitalization March 16. Patient had acute respiratory failure at that time with hyperkalemia also for missed hemodialysis. Hospital Course: Patient presented with shortness of breath secondary to acute on chronic respiratory failure related to pulmonary edema. This was also related to acute on chronic diastolic CHF complicated with missed dialysis due to poor compliance. Patient with end-stage renal disease. Patient has had missed dialysis in the past. Patient was admitted and treated. Patient presented with hyperkalemia. Patient initially required BiPAP. Patient received dialysis with improvement. Chest x-ray showed improvement. Patient had mild fever up on admission. Blood cultures negative. No evidence of infection at this time. At discharge patient will return to the assisted. Compliance with dialysis was addressed in detail. Will need to make sure patient to continue with dialysis from the assisted every Wednesday, Wednesdays and Fridays. Nephrology to further monitor and address. Patient will continue her current medications. Further adjustment can be done by nephrology. I was able to discuss the case with her assisted physician-Dr. Madrid. He will follow up and make sure patient is compliant with dialysis. He is to further evaluate for possible underlying depression as this behavior of missing dialysis has been present in the past. Patient with diabetes mellitus type 2. Patient is insulin dependent. Patient will continue with Levemir 8 units subcu twice daily. Recommend to maintain blood sugars less 140 fasting and less than 200 after meals. Further adjustment can be done by assisted physician. Patient with chronic left heel ulcer. Patient will continue with wound care. Patient [facility] to further manage. Patient with hypothyroidism. Patient will continue with Levoxyl 50 mcg daily. Patient with hypertension. Patient will continue with metoprolol XL 50 mg daily. Recommend to hold blood pressure medication if systolic less than 120. Patient with hyperlipidemia. Patient will continue with Lipitor 40 mg daily. Patient with diabetic neuropathy. Patient may continue with Lyrica 150 mg 1 pill twice daily. Patient with the history of pulmonary embolism. She is currently on chronic anti coagulation therapy. This was discussed with her assisted physician- Dr. Madrid. Patient will continue with Eliquis 2.5 mg 1 pill twice daily. Education on Eliquis will be provided. Vital Signs/Physical Exam: Temp Pulse Resp BP Pulse Ox 97.3 F 88 18 108/52 L 98 04/02/19 04:00 04/02/19 08:20 04/02/19 04:00 04/02/19 08:20 04/02/19 04:00 General: Alert, In no apparent distress, Oriented x3, Cooperative HEENT: Atraumatic Neck: Supple Respiratory: Clear to auscultation bilaterally, Normal air movement Cardiovascular: Normal pulses, Regular rate/rhythm Gastrointestinal: Normal bowel sounds, Soft and benign, Non-distended Integumentary: Other (feet bandaged. ) Neurological: Normal speech, Normal strength at 5/5 x4 extr, Normal tone Laboratory Data at Discharge: WBC 6.9 K/uL (4.3-10.9) 04/02/19 05:40 Hgb 11.3 g/dL (12.0-15.0) L 04/02/19 05:40 Hct 36.1 % (36.0-45.0) 04/02/19 05:40 Plt Count 154 K/uL (152-406) 04/02/19 05:40 Sodium 137 mmol/L (136-145) 04/02/19 05:40 Potassium 4.9 mmol/L (3.5-5.1) 04/02/19 05:40 BUN 76 mg/dL (7-18) H D 04/02/19 05:40 Creatinine 9.14 mg/dL (0.55-1.3) H* D 04/02/19 05:40 Glucose 117 mg/dL (74-106) H 04/02/19 05:40 Magnesium 3.5 mg/dL (1.8-2.4) H D 04/02/19 05:40 Troponin I < 0.02 ng/mL (0.0-0.045) 03/31/19 05:29 Home Medications: Atorvastatin Calcium 40 mg PO BEDTIME 02/17/18 Insulin Detemir [Levemir*] 8 unit SQ BID 02/17/18 Levothyroxine [Synthroid*] 50 mcg PO [id number] 02/17/18 Pregabalin [Lyrica*] 150 mg PO BID 06/08/18 Hydrocodone Bit/Acetaminophen [[place] 7.5-325 Tablet] 1 each PO Q6H PRN 11/20/18 Nepafenac [Ilevro] 1 drop OP DAILY PRN 11/20/18 Zinc Sulfate [Zinc Sulfate*] 220 mg PO DAILY 11/20/18 Apixaban [Eliquis *] 2.5 mg PO BID 03/15/19 Arginald Packet 1 packet PO DAILY 03/15/19 Ascorbic Acid [Vitamin C] 500 mg PO DAILY 03/15/19 Aspirin 81 mg PO DAILY 03/15/19 Calcium Carbonate [Tums] 2 tab.chew PO TIDWM 03/15/19 Cinacalcet HCl [Sensipar*] 2 tab PO DAILY 03/15/19 Folic Acid/Vit Bcomp,C [Linda-Ryan Tablet] 1 tab PO DAILY 03/15/19 Medihoney [Medihoney Woundcare Gel*] 1 appl TD M,W,F 03/15/19 Metoprolol Succinate [Toprol Xl*] 50 mg PO DAILY 03/15/19 Patient Discharge Instructions: 1. Patient to return to her assisted. Compliance with dialysis will need to be enforced. 2. Patient presented with shortness of breath secondary to acute on chronic respiratory failure related to pulmonary edema. This was also related to acute on chronic diastolic CHF complicated with missed dialysis due to poor compliance. Patient with end- stage renal disease. Patient has had missed dialysis in the past. Patient was admitted and treated. Patient presented with hyperkalemia. Patient initially required BiPAP. Patient received dialysis with improvement. Chest x-ray showed improvement. Patient had mild fever up on admission. Blood cultures negative. No evidence of infection at this time. At discharge patient will return to the assisted. Compliance with dialysis was addressed in detail. Will need to make sure patient to continue with dialysis from the assisted every Wednesday, Wednesdays and Fridays. Nephrology to further monitor and address. Patient will continue her current medications. Further adjustment can be done by nephrology. I was able to discuss the case with her assisted physician-Dr. Madrid. He will follow up and make sure patient is compliant with dialysis. He is to further evaluate for possible underlying depression as this behavior of missing dialysis has been present in the past. 3. Patient with diabetes mellitus type 2. Patient is insulin dependent. Patient will continue with Levemir 8 units subcu twice daily. Recommend to maintain blood sugars less 140 fasting and less than 200 after meals. Further adjustment can be done by assisted physician. 4. Patient with chronic left heel ulcer. Patient will continue with wound care. Patient may follow up at [facility] to further manage. 5. Patient with hypothyroidism. Patient will continue with Levoxyl 50 mcg daily. 6. Patient with hypertension. Patient will continue with metoprolol XL 50 mg daily. Recommend to hold blood pressure medication if systolic less than 120. 7. Patient with hyperlipidemia. Patient will continue with Lipitor 40 mg daily. 8. Patient with diabetic neuropathy. Patient may continue with Lyrica 150 mg 1 pill twice daily. 9. Patient with the history of pulmonary embolism. She is currently on chronic anti coagulation therapy. This was discussed with her assisted physician- Dr. Madrid. Patient will continue with Eliquis 2.5 mg 1 pill twice daily. Education on Eliquis will be provided. Diet: ADA Activity: Fall precautions Time spent managing pt's care (in minutes): 55
[2019-04-02 12:56] VITALS: O2SAT 91
[2019-04-02 14:55] VITALS: BP 115/61; TEMP 97.9
[2019-04-02] MEDS: CINACALCET HCL 30 MG TAB PO SCH (16:06)
--- NOTE | 2019-04-03 01:32 | PN ---
Date of Progress Note: 04/02/2019 Chief Complaint: Respiratory failure, hypoxemia, congestive heart failure secondary to severe fluid overload. Subjective: The patient missed dialysis on Wednesday and she came to the hospital on complaining of severe shortness of breath. She was admitted to ICU for generalized weakness, hypoxemia, and pulmonary edema. The patient was found to have hyperkalemia and leukocytosis. The patient responded to daily dialysis and potassium level stabilized and normalized. The patient has intradialytic hypotension and congestive heart failure with diastolic dysfunction. She developed congestive heart failure exacerbation with acute on chronic congestive heart failure. The patient is on beta demar for congestive heart failure. Review of Systems: Denies fever or chills. Objective: LUNGS: Few crackles at bases. HEART: S1, S2. ABDOMEN: Soft and benign. EXTREMITIES: Slight edema. Impression And Plan: 1. End-stage renal disease, hyperkalemia, resolved. Continue low-potassium diet. Next dialysis tomorrow. 2. Renal osteodystrophy. Continue renal diet and binders. 3. Congestive heart failure. Continue beta-demar and p.o. fluid restriction. Continue low-sodium diet. 4. Anemia. Hemoglobin level stable. There is no evidence of bleeding. Monitor hemoglobin level and continue NIMISHA outpatient. 5. Hyperphosphatemia. Monitor phosphorus level. Adjust binders. JUAN/HERIBERTO Voice ID: [id number] Report ID: [id number] MTDD
== END 2019-04-02 18:40 | DRG 291 ==
LOC: ER 14:11 → ERHOLD 16:36 → 3RD-ICU 21:04 → 2ND 04-01 15:20
PROVIDERS: ADMIT Family Medicine; ATTEND Family Medicine
PROC: 5A1D70Z Performance of Urinary Filtration, Intermittent, Less than 6 Hours Per Day (ICD-10-PCS; principal; 2019-03-30)
PROC: 5A09357 Assistance with Respiratory Ventilation, Less than 24 Consecutive Hours, Continuous Positive Airway Pressure (ICD-10-PCS; 2019-03-30)
DX: I13.2 Hypertensive heart and chronic kidney disease with heart failure and with stage 5 chronic kidney disease, or end stage renal disease (principal); J96.20 Acute and chronic respiratory failure, unspecified whether with hypoxia or hypercapnia; N18.6 End stage renal disease; I50.33 Acute on chronic diastolic (congestive) heart failure; J98.11 Atelectasis; L89.629 Pressure ulcer of left heel, unspecified stage; B95.62 Methicillin resistant Staphylococcus aureus infection as the cause of diseases classified elsewhere; E11.22 Type 2 diabetes mellitus with diabetic chronic kidney disease; Z99.2 Dependence on renal dialysis; Z91.15 Patient's noncompliance with renal dialysis; J44.9 Chronic obstructive pulmonary disease, unspecified; E87.5 Hyperkalemia; E03.9 Hypothyroidism, unspecified; D63.8 Anemia in other chronic diseases classified elsewhere; E11.40 Type 2 diabetes mellitus with diabetic neuropathy, unspecified; E83.39 Other disorders of phosphorus metabolism; F41.8 Other specified anxiety disorders; E88.9 Metabolic disorder, unspecified; M10.9 Gout, unspecified; Z79.4 Long term (current) use of insulin; Z79.82 Long term (current) use of aspirin; Z79.01 Long term (current) use of anticoagulants; Z86.711 Personal history of pulmonary embolism; Z88.0 Allergy status to penicillin
CPT/HCPCS: 36415; 71045; 80048; 81001; 82550; 82553; 82962; 83605; 83735; 83880; 84145; 84439; 84443; 84484; 85025; 87040; 87070; 87077; 87086; 87088; 87186; 87205; 87804; 90935; 93005; 94640; 94660; 96374; 96375; 97162; 99291; 99292; J0692; J0696; J1644; J2405; J7605; P9047

== ENCOUNTER 2019-04-29 15:39 | Emergency (ER) | payer MEDICAID ==
--- OUTSIDE RECORDS SUMMARY | 2019-04-29 15:44 | XMS REPORT | Clinical Summary ---
:1955 Author Organization [facility] Address [address] [place] [address] Care Team Providers Name Role Phone Radhika [...] Shorty Pennington, End-stage renal disease on hemodialysis (FORM[facility]LY [facility]); Problem with vascular access; Mamadou Arreola's joint of foot, non-diabetic, right; MD Davis Pressure injury of right heel, stage 4 ([facility]); Emily Weston Elevated troponin; MD Mounika LBBB (left bundle branch block); Lars Lott Chronic systolic heart failure [facility] N[facility] MD ESRD (end stage renal disease) on dialysis (HCC); MRSA bacteremia; Troponin level elevated; Anemia of chronic disease; Hypokalemia 11/22/2018 Orders Only General Internal Medicine 11/22/2018 Telephone Critical Care Ben Bentley, [facility] Medicine Shorty Pennington MD after 04/28/2018 Social History Tobacco Use Types Packs/Day Years Used Date Never Smoker Smokeless Tobacco: Never Used Sex Assigned at Date Recorded Not on file Job Start Date Occupation Industry Not on file Not on file Not on file Travel History Travel Start Travel End No recent travel history available. Last Filed Vital Signs Vital Sign Reading Time Taken Blood Pressure 124/57 12/08/2018 4:37 AM [employer] Pulse 82 12/08/2018 4:37 AM [employer] Temperature 36.8 C (98.2 F) 12/08/2018 4:37 AM [employer] Respiratory Rate 16 12/08/2018 4:37 AM [employer]ABLE [employer] Oxygen Saturation 95% 12/08/2018 4:37 AM [employer]ABLE [employer] Inhaled Oxygen Concentration - - Weight 97.9 kg (215 lb 13.3 oz) 12/07/2018 8:42 AM [employer]ABLE [employer]ERIAL[employer] Height 170.2 cm (5' 7") 11/22/2018 3:09 PM [employer] Body Mass Index 33.8 12/07/2018 8:42 AM [employer]ABLE [employer]ERIAL[employer] Plan of Treatment Not on file Procedures Procedure Name Priority Date/Time Associated Comments Diagnosis REPORT OF PROCEDURE - 12/28/2018 10:30 ENDOSCOPY SCAN AM [employer]ABLE [employer]ERIAL[employer] RHYTHM STRIP - SCAN 12/28/2018 10:30 AM [employer]ABLE MATERIALS COL[employer]OR POCT-GLUCOSE METER Routine 12/08/2018 9:14 Results for this AM [employer]ABLE MATERIALS [employer]OR procedure are in the results section. CBC W/PLT COUNT & Routine 12/08/2018 5:56 Results for this AUTO DIFFERENTIAL AM [employer]ABLE [employer]ERIALS [employer] procedure are in the results section. BASIC METABOLIC PANEL Routine 12/08/2018 5:56 Results for this (7) AM [employer]ABLE MATERIALS [employer]OR procedure are in the results section. CBC W/PLT COUNT & Routine 12/08/2018 5:56 Results for this AUTO DIFFERENTIAL AM [employer]ABLE MATERIALS [employer]OR procedure are in the results section. POCT-GLUCOSE METER Routine 12/07/2018 9:14 Results for this PM [employer]ERIALS [employer] procedure are in the results section. XR ABDOMEN 1 VIEW JORDYN 12/07/2018 6:43 Results for this PM [employer]ABLE MATERIALS [employer] procedure are in the results section. POCT-GLUCOSE METER Routine 12/07/2018 5:48 Results for this PM [employer]ERIALS [employer] procedure are in the results section. POCT-GLUCOSE METER Routine 12/07/2018 2:13 Results for this PM [employer] MATERIALS [employer] procedure are in the results section. HEMODIALYSIS Routine 12/07/2018 12:46 Results for this INPATIENT PM [employer]ERIALS [employer] procedure are in the results section. HEMODIALYSIS Routine 12/07/2018 8:12 INPATIENT AM [employer]ABLE MATERIALS [employer]OR POCT-GLUCOSE METER Routine 12/07/2018 7:50 Results for this AM [employer]ABLE MATERIALS [employer]OR procedure are in the results section. CBC W/PLT COUNT & Routine 12/07/2018 5:32 Results for this AUTO DIFFERENTIAL AM RECY[employer]ABLE MATERIALS [employer]OR procedure are in the results section. MAGNESIUM Routine 12/07/2018 5:32 Results for this AM RECY[employer]ABLE MATERIALS [employer]OR procedure are in the results section. BASIC METABOLIC PANEL Routine 12/07/2018 5:32 Results for this (7) AM [employer]ABLE MATERIALS [employer]OR procedure are in the results section. CBC W/PLT COUNT & Routine 12/07/2018 5:32 Results for this AUTO DIFFERENTIAL AM RECY[employer]ABLE MATERIALS [employer]OR procedure are in the results section. POCT-GLUCOSE METER Routine 12/06/2018 9:30 Results for this PM [employer]ABLE MATERIALS [employer] procedure are in the results section. POCT-GLUCOSE METER Routine 12/06/2018 5:41 Results for this PM [employer] MATERIALS [employer] procedure are in the results section. BLOOD CULTURE Routine 12/06/2018 2:55 Results for this PM [employer]ABLE [employer]ERIALS [employer] procedure are in the results section. NM MYOCARDIAL Routine 12/06/2018 1:20 Results for this PERFUSION SPECT, PM RECYCLABLE MATERIALS COL[employer]OR procedure are in PHARM(LEXISCAN) the results section. POCT-GLUCOSE METER Routine 12/06/2018 12:29 Results for this PM [employer]ABLE MATERIALS [employer]OR procedure are in the results section. POCT-GLUCOSE METER Routine 12/06/2018 11:06 Results for this AM RECY[employer]ABLE MATERIALS COL[employer]OR procedure are in the results section. TREADMILL Routine 12/06/2018 9:38 Results for this TOLERANCE(NON-NUCLEAR AM RECYCLABLE MATERIALS COL[employer]OR procedure are in TREADMILL) the results section. ECG 12-LEAD Routine 12/06/2018 9:12 AM RECYCLABLE MATERIALS COL[employer]OR Procedure Note - Interface, External Ris In - 12/06/2018 9:56 AM RECY[employer]ABLE MATERIALS COL[employer]OR Ventricular Rate 90 BPM Atrial Rate 90 BPM P-R Interval 178 ms QRS Duration 152 ms Q-T Interval 424 ms QTC Calculation(Bazett) 518 ms P Hitchcock 69 degrees R Hitchcock 70 degrees T Hitchcock 63 degrees Normal sinus rhythm Left bundle branch block Abnormal ECG ECG 12-LEAD Routine 12/06/2018 9:11 AM RECY[employer]ABLE MATERIALS COL[employer]OR Procedure Note - Interface, External Ris In - 12/06/2018 9:56 AM RECY[employer]ABLE MATERIALS COL[employer]OR Ventricular Rate 91 BPM Atrial Rate 91 BPM P-R Interval 172 ms QRS Duration 158 ms Q-T Interval 408 ms QTC Calculation(Bazett) 501 ms P Hitchcock 60 degrees R Hitchcock 74 degrees T Hitchcock 206 degrees Sinus rhythm with Fusion complexes Left bundle branch block Abnormal ECG ECG 12-LEAD Routine 12/06/2018 9:03 AM RECY[employer]ABLE MATERIALS COL[employer]OR ECG 12-LEAD Routine 12/06/2018 9:03 AM RECYCLABLE MATERIALS COL[employer]OR Procedure Note - Interface, External Ris In - 12/06/2018 9:56 AM RECYCLABLE MATERIALS COLLECTOR Ventricular Rate 91 BPM Atrial Rate 91 BPM P-R Interval 172 ms QRS Duration 152 ms Q-T Interval 422 ms QTC Calculation(Bazett) 519 ms P Hitchcock 68 degrees R Hitchcock 67 degrees T Hitchcock 79 degrees Normal sinus rhythm Left bundle branch block Abnormal ECG POCT-GLUCOSE METER Routine 12/06/2018 6:16 AM RECYCLABLE MATERIALS COL[employer]OR CBC W/PLT COUNT & AUTO Routine 12/06/2018 1:11 AM RECY[employer]ABLE MATERIALS COL[employer]OR Results for this DIFFERENTIAL procedure are in the results section. APTT Routine 12/06/2018 1:11 AM RECYCLABLE MATERIALS COL[employer]OR BASIC METABOLIC PANEL (7) Routine 12/06/2018 1:11 AM RECY[employer]ABLE MATERIALS COL[employer]OR CBC W/PLT COUNT & AUTO Routine 12/06/2018 1:11 AM RECY[employer]ABLE MATERIALS COL[employer]OR Results for this DIFFERENTIAL procedure are in the results section. VANCOMYCIN LEVEL, RANDOM Routine 12/06/2018 1:11 AM RECYCLABLE MATERIALS COLLECTOR POCT-GLUCOSE METER Routine 12/05/2018 9:20 PM RECYCLABLE MATERIALS COLLECTOR TRANSFUSION SERVICE REPORT - 12/05/2018 5:50 PM RECYCLABLE MATERIALS COLLECTOR SCAN POCT-GLUCOSE METER Routine 12/05/2018 4:27 PM RECYCLABLE MATERIALS COL[employer]OR POCT-GLUCOSE METER Routine 12/05/2018 12:18 PM RECYCLABLE MATERIALS COLLECTOR APTT Routine 12/05/2018 8:09 AM RECYCLABLE MATERIALS COL[employer]OR CBC W/PLT COUNT & AUTO Routine 12/05/2018 8:00 AM RECY[employer]ABLE MATERIALS COL[employer]OR Results for this DIFFERENTIAL procedure are in the results section. BASIC METABOLIC PANEL (7) Routine 12/05/2018 8:00 AM RECY[employer]ABLE MATERIALS COL[employer]OR CBC W/PLT COUNT & AUTO Routine 12/05/2018 8:00 AM RECY[employer]ABLE MATERIALS COL[employer]OR Results for this DIFFERENTIAL procedure are in the results section. PREPARE LEUKO-REDUCED RBC Routine 12/04/2018 11:54 PM RECYCLABLE MATERIALS COLLECTOR APTT Routine 12/04/2018 11:36 PM RECYCLABLE MATERIALS COLLECTOR POCT-GLUCOSE METER Routine 12/04/2018 8:48 PM RECYCLABLE MATERIALS COLLECTOR TRANSFUSION SERVICE REPORT - 12/04/2018 5:50 PM RECYCLABLE MATERIALS COLLECTOR SCAN POCT-GLUCOSE METER Routine 12/04/2018 5:02 PM RECYCLABLE MATERIALS COLLECTOR APTT Routine 12/04/2018 4:05 PM RECYCLABLE MATERIALS COLLECTOR POCT-GLUCOSE METER Routine 12/04/2018 12:31 PM RECYCLABLE MATERIALS COLLECTOR APTT Routine 12/04/2018 9:59 AM RECYCLABLE MATERIALS COLLECTOR POCT-GLUCOSE METER Routine 12/04/2018 8:10 AM RECYCLABLE MATERIALS COLLECTOR CBC W/PLT COUNT & AUTO Routine 12/04/2018 5:33 AM RECYCLABLE MATERIALS COLLECTOR Results for this DIFFERENTIAL procedure are in the results section. VANCOMYCIN LEVEL, RANDOM Routine 12/04/2018 5:33 AM RECYCLABLE MATERIALS COL[employer]OR BASIC METABOLIC PANEL (7) Routine 12/04/2018 5:33 AM RECYCLABLE MATERIALS COLLECTOR CBC W/PLT COUNT & AUTO Routine 12/04/2018 5:33 AM RECYCLABLE MATERIALS COL[employer]OR Results for this DIFFERENTIAL procedure are in the results section. POCT-GLUCOSE METER Routine 12/03/2018 9:16 PM RECYCLABLE MATERIALS COLLECTOR POCT-GLUCOSE METER Routine 12/03/2018 5:04 PM RECYCLABLE MATERIALS COLLECTOR TRANSFUSE LEUKO-REDUCED RED Routine 12/03/2018 3:10 PM RECYCLABLE MATERIALS COLLECTOR BLOOD CELLS POCT-GLUCOSE METER Routine 12/03/2018 12:08 PM RECYCLABLE MATERIALS COLLECTOR TYPE AND SCREEN, AUTOMATED Routine 12/03/2018 8:46 AM RECYCLABLE MATERIALS COLLECTOR POCT-GLUCOSE METER Routine 12/03/2018 8:11 AM RECYCLABLE MATERIALS COLLECTOR CBC W/PLT COUNT & AUTO Routine 12/03/2018 5:59 AM RECYCLABLE MATERIALS COLLECTOR Results for this DIFFERENTIAL procedure are in the results section. BASIC METABOLIC PANEL (7) Routine 12/03/2018 5:59 AM RECYCLABLE MATERIALS COLLECTOR CBC W/PLT COUNT & AUTO Routine 12/03/2018 5:59 AM RECYCLABLE MATERIALS COLLECTOR Results for this DIFFERENTIAL procedure are in the results section. HEMODIALYSIS INPATIENT Routine 12/02/2018 9:15 PM RECYCLABLE MATERIALS COLLECTOR IR TUNNELED DIALYSIS CATHETER Routine 12/02/2018 1:10 PM RECY[employer]ABLE MATERIALS COL[employer]OR HEMOGLOBIN AND HEMATOCRIT Routine 12/02/2018 8:24 AM RECYCLABLE MATERIALS COLLECTOR POCT-GLUCOSE METER Routine 12/02/2018 7:33 AM RECYCLABLE MATERIALS COLLECTOR POCT-GLUCOSE METER Routine 12/02/2018 6:30 AM RECYCLABLE MATERIALS COLLECTOR CBC W/PLT COUNT & AUTO Routine 12/02/2018 5:42 AM RECYCLABLE MATERIALS COLLECTOR Results for this DIFFERENTIAL procedure are in the results section. PT/APTT Routine 12/02/2018 5:42 AM RECYCLABLE MATERIALS COLLECTOR BASIC METABOLIC PANEL (7) Routine 12/02/2018 5:42 AM RECYCLABLE MATERIALS COLLECTOR CBC W/PLT COUNT & AUTO Routine 12/02/2018 5:42 AM RECYCLABLE MATERIALS COLLECTOR Results for this DIFFERENTIAL procedure are in the results section. VANCOMYCIN LEVEL, RANDOM Routine 12/02/2018 5:42 AM RECYCLABLE MATERIALS COLLECTOR POCT-GLUCOSE METER Routine 12/01/2018 11:36 PM RECYCLABLE MATERIALS COLLECTOR MR LOWER EXT JOINT WITHOUT IV Routine 12/01/2018 7:00 PM RECYCLABLE MATERIALS COLLECTOR Results for this CONTRAST RIGHT procedure are in the results section. POCT-GLUCOSE METER Routine 12/01/2018 12:02 PM RECYCLABLE MATERIALS COLLECTOR CBC W/PLT COUNT & AUTO Routine 12/01/2018 11:33 AM RECYCLABLE MATERIALS COLLECTOR Results for this DIFFERENTIAL procedure are in the results section. BASIC METABOLIC PANEL (7) Routine 12/01/2018 11:33 AM RECYCLABLE MATERIALS COLLECTOR CBC W/PLT COUNT & AUTO Routine 12/01/2018 11:33 AM RECYCLABLE MATERIALS COLLECTOR Results for this DIFFERENTIAL procedure are in the results section. XR HIP RIGHT 1 VIEW Routine 12/01/2018 11:16 AM RECYCLABLE MATERIALS COLLECTOR POCT-GLUCOSE METER Routine 12/01/2018 7:39 AM RECYCLABLE MATERIALS COLLECTOR VANCOMYCIN LEVEL, RANDOM Routine 12/01/2018 5:58 AM RECYCLABLE MATERIALS COLLECTOR GENTAMICIN LEVEL, TROUGH Routine 11/30/2018 8:57 PM RECYCLABLE MATERIALS COLLECTOR POCT-GLUCOSE METER Routine 11/30/2018 8:16 PM RECYCLABLE MATERIALS COLLECTOR POCT-GLUCOSE METER Routine 11/30/2018 6:03 PM RECYCLABLE MATERIALS COLLECTOR TRANSFUSION SERVICE REPORT - 11/30/2018 6:00 PM RECYCLABLE MATERIALS COLLECTOR SCAN HEMODIALYSIS INPATIENT Routine 11/30/2018 4:43 PM RECYCLABLE MATERIALS COLLECTOR POCT-GLUCOSE METER Routine 11/30/2018 1:41 PM RECYCLABLE MATERIALS COLLECTOR POCT-GLUCOSE METER Routine 11/30/2018 7:36 AM RECYCLABLE MATERIALS COLLECTOR CBC W/PLT COUNT & AUTO Routine 11/30/2018 6:22 AM RECYCLABLE MATERIALS COLLECTOR Results for this DIFFERENTIAL procedure are in the results section. BASIC METABOLIC PANEL (7) Routine 11/30/2018 6:22 AM RECYCLABLE MATERIALS COLLECTOR CBC W/PLT COUNT & AUTO Routine 11/30/2018 6:22 AM RECY[employer]ABLE MATERIALS COLLECTOR Results for this DIFFERENTIAL procedure are in the results section. VANCOMYCIN LEVEL, RANDOM Routine 11/30/2018 6:22 AM RECYCLABLE MATERIALS COLLECTOR PREPARE LEUKO-REDUCED RBC Routine 11/29/2018 11:54 PM RECYCLABLE MATERIALS COLLECTOR POCT-GLUCOSE METER Routine 11/29/2018 9:16 PM RECYCLABLE MATERIALS COLLECTOR TRANSFUSION SERVICE REPORT - 11/29/2018 6:00 PM RECYCLABLE MATERIALS COLLECTOR SCAN POCT-GLUCOSE METER Routine 11/29/2018 5:48 PM RECYCLABLE MATERIALS COLLECTOR POCT-GLUCOSE METER Routine 11/29/2018 1:21 PM RECYCLABLE MATERIALS COLLECTOR POCT-GLUCOSE METER Routine 11/29/2018 8:20 AM RECYCLABLE MATERIALS COLLECTOR CBC W/PLT COUNT & AUTO Routine 11/29/2018 5:59 AM RECY[employer]ABLE MATERIALS COLLECTOR Results for this DIFFERENTIAL procedure are in the results section. PHOSPHORUS Routine 11/29/2018 5:59 AM RECYCLABLE MATERIALS COLLECTOR MAGNESIUM Routine 11/29/2018 5:59 AM RECYCLABLE MATERIALS COLLECTOR BASIC METABOLIC PANEL (7) Routine 11/29/2018 5:59 AM RECYCLABLE MATERIALS COLLECTOR CBC W/PLT COUNT & AUTO Routine 11/29/2018 5:59 AM [employer]ABLE MATERIALS COL[employer]OR Results for this DIFFERENTIAL procedure are in the results section. VANCOMYCIN LEVEL, RANDOM Routine 11/29/2018 5:59 AM RECYCLABLE MATERIALS COLLECTOR POCT-GLUCOSE METER Routine 11/29/2018 12:34 AM RECYCLABLE MATERIALS COLLECTOR HEMODIALYSIS INPATIENT Routine 11/28/2018 11:37 PM RECYCLABLE MATERIALS COLLECTOR HEMOGLOBIN AND HEMATOCRIT Routine 11/28/2018 11:15 PM RECYCLABLE MATERIALS COLLECTOR TRANSFUSE LEUKO-REDUCED RED Routine 11/28/2018 8:13 PM RECYCLABLE MATERIALS COLLECTOR BLOOD CELLS POCT-GLUCOSE METER Routine 11/28/2018 5:43 PM RECYCLABLE MATERIALS COLLECTOR ECHOCARDIOGRAM REPORT - SCAN 11/28/2018 1:20 PM RECYCLABLE MATERIALS COLLECTOR POCT-GLUCOSE METER Routine 11/28/2018 12:[address] [employer] [address] ABDOMEN/PELVIS WITHOUT IV STAT 11/28/2018 9:19 AM RECYCLABLE MATERIALS COLLECTOR Results for this CONTRAST procedure are in the results section. PROTHROMBIN TIME/INR STAT 11/28/2018 9:01 AM RECYCLABLE MATERIALS COLLECTOR TRANSESOPHAGEAL ECHO Routine 11/28/2018 8:58 AM RECYCLABLE MATERIALS COLLECTOR TYPE AND SCREEN, AUTOMATED Routine 11/28/2018 8:52 AM RECYCLABLE MATERIALS COLLECTOR HEMOGLOBIN AND HEMATOCRIT STAT 11/28/2018 8:52 AM RECYCLABLE MATERIALS COLLECTOR BLOOD CULTURE Routine 11/28/2018 8:52 AM RECYCLABLE MATERIALS COLLECTOR CBC W/PLT COUNT & AUTO Routine 11/28/2018 5:57 AM RECYCLABLE MATERIALS COLLECTOR Results for this DIFFERENTIAL procedure are in the results section. APTT Routine 11/28/2018 5:57 AM RECYCLABLE MATERIALS COLLECTOR CBC W/PLT COUNT & AUTO Routine 11/28/2018 5:57 AM RECYCLABLE MATERIALS COLLECTOR Results for this DIFFERENTIAL procedure are in the results section. BASIC METABOLIC PANEL (7) Routine 11/28/2018 5:57 AM RECYCLABLE MATERIALS COLLECTOR POCT-GLUCOSE METER Routine 11/27/2018 9:29 PM RECYCLABLE MATERIALS COLLECTOR APTT Routine 11/27/2018 6:12 PM RECYCLABLE MATERIALS COLLECTOR POCT-GLUCOSE METER Routine 11/27/2018 1:14 PM RECYCLABLE MATERIALS COLLECTOR APTT Routine 11/27/2018 10:58 AM RECYCLABLE MATERIALS COLLECTOR POCT-GLUCOSE METER Routine 11/27/2018 8:07 AM RECYCLABLE MATERIALS COLLECTOR BLOOD CULTURE Routine 11/27/2018 6:55 AM RECYCLABLE MATERIALS COLLECTOR CBC W/PLT COUNT & AUTO Routine 11/27/2018 4:29 AM RECYCLABLE MATERIALS COLLECTOR Results for this DIFFERENTIAL procedure are in the results section. APTT Routine 11/27/2018 4:29 AM RECYCLABLE MATERIALS COLLECTOR BASIC METABOLIC PANEL (7) Routine 11/27/2018 4:29 AM RECYCLABLE MATERIALS COLLECTOR CBC W/PLT COUNT & AUTO Routine 11/27/2018 4:29 AM RECYCLABLE MATERIALS COLLECTOR Results for this DIFFERENTIAL procedure are in the results section. VANCOMYCIN LEVEL, RANDOM Routine 11/27/2018 4:29 AM RECYCLABLE MATERIALS COLLECTOR POCT-GLUCOSE METER Routine 11/26/2018 10:05 PM RECYCLABLE MATERIALS COLLECTOR APTT Routine 11/26/2018 8:30 PM RECYCLABLE MATERIALS COLLECTOR APTT Routine 11/26/2018 6:17 PM RECYCLABLE MATERIALS COLLECTOR POCT-GLUCOSE METER Routine 11/26/2018 5:09 PM RECYCLABLE MATERIALS COLLECTOR POCT-GLUCOSE METER Routine 11/26/2018 12:41 PM RECYCLABLE MATERIALS COLLECTOR APTT Routine 11/26/2018 10:31 AM RECYCLABLE MATERIALS COLLECTOR CONT WAVE PULSED DOPPLER Routine 11/26/2018 8:22 AM RECYCLABLE MATERIALS COLLECTOR COLOR-FLOW MAPPING Routine 11/26/2018 8:22 AM RECY[employer]ABLE MATERIALS COLLECTOR POCT-GLUCOSE METER Routine 11/26/2018 7:42 AM RECYCLABLE MATERIALS COLLECTOR POCT-GLUCOSE METER Routine 11/26/2018 3:21 AM RECYCLABLE MATERIALS COLLECTOR APTT Routine 11/26/2018 3:11 AM RECYCLABLE MATERIALS COLLECTOR POCT-GLUCOSE METER Routine 11/25/2018 10:12 PM RECYCLABLE MATERIALS COLLECTOR APTT Routine 11/25/2018 8:46 PM RECYCLABLE MATERIALS COLLECTOR POCT-GLUCOSE METER Routine 11/25/2018 7:32 PM RECYCLABLE MATERIALS COLLECTOR VANCOMYCIN LEVEL, RANDOM Routine 11/25/2018 6:13 PM RECYCLABLE MATERIALS COLLECTOR HEPATITIS B SURFACE ANTIGEN Routine 11/25/2018 3:08 PM RECYCLABLE MATERIALS COLLECTOR APTT Routine 11/25/2018 3:08 PM RECYCLABLE MATERIALS COLLECTOR HEMODIALYSIS INPATIENT Routine 11/25/2018 3:01 PM RECYCLABLE MATERIALS COLLECTOR APTT Routine 11/25/2018 12:10 PM RECYCLABLE MATERIALS COLLECTOR BASIC METABOLIC PANEL (7) STAT 11/25/2018 12:10 PM RECYCLABLE MATERIALS COLLECTOR POCT-GLUCOSE METER Routine 11/25/2018 7:44 AM RECYCLABLE MATERIALS COLLECTOR APTT Routine 11/25/2018 6:23 AM RECYCLABLE MATERIALS COLLECTOR CBC W/PLT COUNT & AUTO STAT 11/25/2018 5:35 AM RECYCLABLE MATERIALS COLLECTOR Results for this DIFFERENTIAL procedure are in the results section. CBC W/PLT COUNT & AUTO STAT 11/25/2018 5:35 AM RECYCLABLE MATERIALS COLLECTOR Results for this DIFFERENTIAL procedure are in the results section. APTT Routine 11/24/2018 11:39 PM RECYCLABLE MATERIALS COLLECTOR PHOSPHORUS Routine 11/24/2018 11:39 PM RECYCLABLE MATERIALS COLLECTOR MAGNESIUM Routine 11/24/2018 11:39 PM RECYCLABLE MATERIALS COLLECTOR BASIC METABOLIC PANEL (7) STAT 11/24/2018 11:39 PM RECYCLABLE MATERIALS COLLECTOR POCT-GLUCOSE METER Routine 11/24/2018 10:04 PM RECYCLABLE MATERIALS COLLECTOR POCT-GLUCOSE METER Routine 11/24/2018 5:17 PM RECYCLABLE MATERIALS COLLECTOR APTT Routine 11/24/2018 4:43 PM RECYCLABLE MATERIALS COLLECTOR PT/APTT Routine 11/24/2018 4:43 PM RECYCLABLE MATERIALS COLLECTOR POCT-GLUCOSE METER Routine 11/24/2018 12:28 PM RECYCLABLE MATERIALS COLLECTOR APTT Routine 11/24/2018 9:37 AM RECYCLABLE MATERIALS COLLECTOR POCT-GLUCOSE METER Routine 11/24/2018 7:38 AM RECYCLABLE MATERIALS COLLECTOR CBC W/PLT COUNT & AUTO STAT 11/24/2018 4:03 AM RECYCLABLE MATERIALS COLLECTOR Results for this DIFFERENTIAL procedure are in the results section. PHOSPHORUS Routine 11/24/2018 4:03 AM RECYCLABLE MATERIALS COLLECTOR MAGNESIUM Routine 11/24/2018 4:03 AM RECYCLABLE MATERIALS COLLECTOR TROPONIN I Routine 11/24/2018 4:03 AM RECYCLABLE MATERIALS COLLECTOR B-TYPE NATRIURETIC FACTOR Routine 11/24/2018 4:03 AM RECYCLABLE MATERIALS COLLECTOR Results for this (BNP) procedure are in the results section. CBC W/PLT COUNT & AUTO STAT 11/24/2018 4:03 AM RECYCLABLE MATERIALS COLLECTOR Results for this DIFFERENTIAL procedure are in the results section. BASIC METABOLIC PANEL (7) STAT 11/24/2018 4:03 AM RECYCLABLE MATERIALS COLLECTOR LACTIC ACID, VENOUS Routine 11/24/2018 4:03 AM RECYCLABLE MATERIALS COLLECTOR POCT-GLUCOSE METER Routine 11/23/2018 9:54 PM RECYCLABLE MATERIALS COLLECTOR POCT-GLUCOSE METER Routine 11/23/2018 6:00 PM RECYCLABLE MATERIALS COLLECTOR BLOOD CULTURE Routine 11/23/2018 3:40 PM RECYCLABLE MATERIALS COLLECTOR POCT-GLUCOSE METER Routine 11/23/2018 12:58 PM RECYCLABLE MATERIALS COLLECTOR VANCOMYCIN LEVEL, RANDOM Routine 11/23/2018 12:54 PM RECYCLABLE MATERIALS COLLECTOR CATHETER TIP CULTURE STAT 11/23/2018 12:54 PM RECYCLABLE MATERIALS COLLECTOR IR CENTRAL VENOUS CATHETER STAT 11/23/2018 12:38 PM RECYCLABLE MATERIALS COLLECTOR Results for this PLACEMENT (JUGULAR OR procedure are in the FEMORAL) results section. ECG 12-LEAD Routine 11/23/2018 9:30 AM RECYCLABLE MATERIALS COLLECTOR Procedure Note - Interface, External Ris In - 11/23/2018 9:37 AM RECYCLABLE MATERIALS COLLECTOR Ventricular Rate 92 BPM Atrial Rate 92 BPM P-R Interval 156 ms QRS Duration 162 ms Q-T Interval 418 ms QTC Calculation(Bazett) 516 ms P Hitchcock 52 degrees R Hitchcock 38 degrees T Hitchcock 103 degrees Normal sinus rhythm Left bundle branch block Abnormal ECG When compared with ECG of 22-NOV-2018 16:47, No significant change was found ECG 12-LEAD STAT 11/23/2018 9:30 AM RECYCLABLE MATERIALS COLLECTOR ECHOCARDIOGRAM REPORT - SCAN 11/23/2018 9:00 AM RECYCLABLE MATERIALS COLLECTOR XR ABDOMEN 1 VIEW STAT 11/23/2018 8:35 AM RECYCLABLE MATERIALS COLLECTOR CALCIUM, IONIZED Routine 11/23/2018 7:27 AM RECYCLABLE MATERIALS COLLECTOR CBC W/PLT COUNT & AUTO STAT 11/23/2018 7:00 AM RECYCLABLE MATERIALS COLLECTOR Results for this DIFFERENTIAL procedure are in the results section. LIPASE STAT 11/23/2018 7:00 AM RECYCLABLE MATERIALS COLLECTOR TROPONIN I JORDYN 11/23/2018 7:00 AM RECYCLABLE MATERIALS COLLECTOR PHOSPHORUS Routine 11/23/2018 7:00 AM RECYCLABLE MATERIALS COLLECTOR MAGNESIUM Routine 11/23/2018 7:00 AM RECYCLABLE MATERIALS COLLECTOR BASIC METABOLIC PANEL (7) Routine 11/23/2018 7:00 AM RECYCLABLE MATERIALS COLLECTOR COMPREHENSIVE METABOLIC Routine 11/23/2018 7:00 AM RECYCLABLE MATERIALS COLLECTOR Results for this PANEL procedure are in the results section. CBC W/PLT COUNT & AUTO STAT 11/23/2018 7:00 AM RECYCLABLE MATERIALS COLLECTOR Results for this DIFFERENTIAL procedure are in the results section. LACTIC ACID, VENOUS Routine 11/23/2018 7:00 AM RECYCLABLE MATERIALS COLLECTOR PHOSPHORUS Routine 11/23/2018 1:26 AM RECYCLABLE MATERIALS COLLECTOR MAGNESIUM Routine 11/23/2018 1:26 AM RECYCLABLE MATERIALS COLLECTOR CALCIUM, IONIZED Routine 11/23/2018 1:26 AM RECYCLABLE MATERIALS COLLECTOR BASIC METABOLIC PANEL (7) Routine 11/23/2018 1:26 AM RECYCLABLE MATERIALS COLLECTOR POCT-GLUCOSE METER Routine 11/23/2018 12:27 AM RECYCLABLE MATERIALS COLLECTOR TROPONIN I Routine 11/22/2018 10:08 PM RECYCLABLE MATERIALS COLLECTOR LACTIC ACID, VENOUS STAT 11/22/2018 10:08 PM RECYCLABLE MATERIALS COLLECTOR US ABDOMEN COMPLETE STAT 11/22/2018 6:56 PM RECYCLABLE MATERIALS COLLECTOR LACTIC ACID, VENOUS STAT 11/22/2018 6:36 PM RECYCLABLE MATERIALS COLLECTOR XR CHEST 1 VIEW STAT 11/22/2018 4:48 PM RECYCLABLE MATERIALS COLLECTOR Results for this PORTABLE/BEDSIDE procedure are in the results section. ECG 12-LEAD Routine 11/22/2018 4:47 PM RECYCLABLE MATERIALS COLLECTOR Procedure Note - Interface, External Ris In - 11/22/2018 5:11 PM RECYCLABLE MATERIALS COLLECTOR Ventricular Rate 91 BPM Atrial Rate 91 BPM P-R Interval 162 ms QRS Duration 172 ms Q-T Interval 442 ms QTC Calculation(Bazett) 543 ms P Hitchcock 6 degrees R Hitchcock -18 degrees T Hitchcock 70 degrees Normal sinus rhythm Left bundle branch block Abnormal ECG No previous ECGs available ECG 12-LEAD Routine 11/22/2018 4:47 PM RECYCLABLE MATERIALS COLLECTOR BLOOD GAS, ARTERIAL STAT 11/22/2018 4:25 PM RECYCLABLE MATERIALS COLLECTOR BLOOD CULTURE STAT 11/22/2018 4:25 PM RECYCLABLE MATERIALS COLLECTOR (CELLAVISION MANUAL DIFF) Routine 11/22/2018 4:19 PM RECYCLABLE MATERIALS COLLECTOR CBC W/PLT COUNT & AUTO STAT 11/22/2018 4:19 PM RECYCLABLE MATERIALS COLLECTOR Results for this DIFFERENTIAL procedure are in the results section. VANCOMYCIN LEVEL, RANDOM STAT 11/22/2018 4:19 PM RECYCLABLE MATERIALS COLLECTOR B-TYPE NATRIURETIC FACTOR Routine 11/22/2018 4:19 PM RECYCLABLE MATERIALS COLLECTOR Results for this (BNP) procedure are in the results section. TSH/FREE T4 IF INDICATED Routine 11/22/2018 4:19 PM RECYCLABLE MATERIALS COLLECTOR TROPONIN I Routine 11/22/2018 4:19 PM RECYCLABLE MATERIALS COLLECTOR CBC W/PLT COUNT & AUTO STAT 11/22/2018 4:19 PM RECYCLABLE MATERIALS COLLECTOR Results for this DIFFERENTIAL procedure are in the results section. PROTHROMBIN TIME/INR STAT 11/22/2018 4:19 PM RECYCLABLE MATERIALS COLLECTOR MAGNESIUM STAT 11/22/2018 4:19 PM RECYCLABLE MATERIALS COLLECTOR PHOSPHORUS STAT 11/22/2018 4:19 PM RECYCLABLE MATERIALS COLLECTOR BASIC METABOLIC PANEL (7) STAT 11/22/2018 4:19 PM RECYCLABLE MATERIALS COLLECTOR HEPATIC FUNCTION PANEL STAT 11/22/2018 4:19 PM RECYCLABLE MATERIALS COLLECTOR OXYGEN SATURATION, MEASURED STAT 11/22/2018 4:19 PM RECYCLABLE MATERIALS COLLECTOR PROCALCITONIN STAT 11/22/2018 4:19 PM RECYCLABLE MATERIALS COLLECTOR LACTIC ACID, VENOUS STAT 11/22/2018 4:19 PM RECYCLABLE MATERIALS COLLECTOR BLOOD CULTURE IDENTIFICATION Routine 11/22/2018 4:19 PM RECYCLABLE MATERIALS COLLECTOR Results for this PANEL procedure are in the results section. BLOOD CULTURE STAT 11/22/2018 4:19 PM RECYCLABLE MATERIALS COLLECTOR 2D ECHO W/ DOPPLER STAT 11/22/2018 3:51 PM RECYCLABLE MATERIALS COLLECTOR Results for this (CW/PW/COLOR) procedure are in the results section. after 04/28/2018 Results EKG-SCANNED (12/28/2018 10:30 AM RECYCLABLE MATERIALS COLLECTOR) Narrative Performed At RHYTHM STRIP - SCAN (12/28/2018 10:30 AM RECYCLABLE MATERIALS COLLECTOR) Narrative Performed At POC-Glucose meter (12/08/2018 9:14 AM RECYCLABLE MATERIALS COLLECTOR)Only the most recent of56 resultswithin the time period is included. POC-Glucose Meter 110Comment: TESTED AT 70 - 110 mg/dL [facility] [address] [facility] [address] Specimen Blood Performing Organization Address City/State/Zipcode Phone Number [facility] [address] [place], [place] [id number] CENTER CBC with platelet count + automated diff (12/08/2018 5:56 AM RECYCLABLE MATERIALS COLLECTOR)Only the most recent of16 resultswithin the time period is included. WBC 8.2 3.5 - 10.5 K/L [facility] RBC 2.79 (L) 3.93 - 5.22 M/L [facility] Hemoglobin 7.8 (L) 11.2 - 15.7 GM/DL [facility] Hematocrit 26.4 (L) 34.1 - 44.9 % [facility] MCV 94.6 79.4 - 94.8 fL [facility] MCH 28.0 25.6 - 32.2 pg [facility] MCHC 29.5 (L) 32.2 - 35.5 GM/DL [facility] RDW 14.5 (H) 11.7 - 14.4 % [facility] Platelets 299 150 - 450 K/CU MM [facility] MPV 10.0 9.4 - 12.3 fL [facility] nRBC 0 0 - 0 /100 WBC [facility] % Neutros 72 % [facility] % Lymphs 11 % [facility] % Monos 10 % [facility] % Eos 5 % [facility] % Baso 1 % [facility] # Neutros 5.93 1.56 - 6.13 K/L [facility] # Lymphs 0.87 (L) 1.18 - 3.74 K/L [facility] # Monos 0.84 (H) 0.24 - 0.36 K/L [facility] # Eos 0.44 (H) 0.04 - 0.36 K/L [facility] # Baso 0.09 (H) 0.01 - 0.08 K/L [facility] Immature Granulocytes-Relative 1 0 - 1 % [facility] Specimen Blood Performing Organization Address City/[facility]/Zipcode Phone Number [address] [address] [phone] GEM Basic Metabolic Panel (12/08/2018 5:56 AM RECYCLABLE MATERIALS COLLECTOR)Only the most recent of18 resultswithin the time period is included. Sodium 139 136 - 145 meq/L [facility] Potassium 4.3 3.5 - 5.1 meq/L [facility] Chloride 104 98 - 107 meq/L [facility] CO2 26 22 - 29 meq/L [facility] BUN 31 (H) 7 - 21 mg/dL [facility] Creatinine 5.39 (H) 0.57 - 1.25 mg/dL [facility] Glucose 83 70 - 105 mg/dL [facility] Calcium 9.1 8.4 - 10.2 mg/dL [facility] EGFR 10Comment: ESTIMATED GFR IS mL/min/1.73 sq m [facility] NOT ACCURATE CREATININE [facility] CLEARANCE IN PREDICTING GLOMERULAR FILTRATION RATE. ESTIMATED GFR IS NOT APPLICABLE FOR DIALYSIS PATIENTS. Specimen Blood Performing Organization Address City/State/Zipcode Phone Number [place] [phone] [place] [address] GEM XR abdomen / KUB 1 view (12/07/2018 6:43 PM RECYCLABLE MATERIALS COLLECTOR)Only the most recent of2 resultswithin the time period is included. Specimen Narrative Performed At FINAL REPORT [facility] EXAMINATION: SUPINE ABDOMEN CLINICAL INDICATION: Abdominal pain [...] MD Report Verified Date/Time:12/08/2018 04:19:23 Reading Location: [address] Reading Room Procedure Note Interface, External Ris In - 12/08/2018 4:21 AM RECYCLABLE MATERIALS COLLECTOR FINAL REPORT EXAMINATION: SUPINE ABDOMEN CLINICAL INDICATION: [...] Report Verified Date/Time: 12/08/2018 04:19:23 Reading Location: [address] Reading Room Performing Organization Address City/State/Zipcode Phone Number [facility] HEMODIALYSIS INPATIENT (12/07/2018 12:46 PM RECYCLABLE MATERIALS COLLECTOR) Narrative Performed At Khai Angeles RN 12/07/2018 [...] 36.0 seconds Final Magnesium (12/07/2018 5:32 AM RECYCLABLE MATERIALS COLLECTOR)Only the most recent of7 resultswithin the time period is included. Magnesium 2.2 1.6 - 2.6 mg/dL [facility] Specimen Blood Performing Organization Address City/State/Zipcode Phone Number [address] [address] CENTER Blood culture (12/06/2018 2:55 PM RECYCLABLE MATERIALS COLLECTOR)Only the most recent of6 resultswithin the time period is included. Result No growth in 5 days [facility] Specimen Blood Performing Organization Address City/State/Zipcode Phone Number [address] [address] CENTER NM myocardial perfusion SPECT, pharm(Lexiscan) (12/06/2018 1:20 PM RECYCLABLE MATERIALS COLLECTOR) Specimen Narrative Performed At FINAL REPORT [facility] PROCEDURE:Rest/Stress MYOCARDIAL PERFUSION SPECT with regadenoson\\XA9\\ CPT CODE:50422 INDICATION:New onset heart failure, intermediate risk for [...] distribution is normal.6. No previous [facility] study for comparison. Signed: Dariana Jones MD Report Verified Date/Time:12/06/2018 16:00:51 Reading Location: [address] Reading Room Procedure Note Interface, External Ris In - 12/06/2018 4:03 PM RECYCLABLE MATERIALS COLLECTOR FINAL REPORT PROCEDURE: Rest/Stress MYOCARDIAL PERFUSION SPECT with regadenoson\\XA9\\ CPT CODE: 74915 INDICATION: New onset heart failure, intermediate risk [...] is normal. 6. No previous [facility] study for comparison. Signed: Dariana Jones MD Report Verified Date/Time: 12/06/2018 16:00:51 Reading Location: [id number] [facility] Reading Room Performing Organization Address City/State/Zipcode Phone Number [facility] Treadmill tolerance(Non-Nuclear Treadmill) (12/06/2018 9:38 AM RECYCLABLE MATERIALS COLLECTOR) Specimen Narrative Performed At Protocol Name Willian iAgree Time In Exercise Phase 00:01:00 Max. Systolic [...] 10:22:29 AM Confirmed by MD GOLDBERG JORGE ([id number]) on 12/20/2018 12:25:53 PM Procedure Note Interface, External Ris In - 12/20/2018 12:26 PM RECYCLABLE MATERIALS COLLECTOR Protocol Name Lexiscan Time In Exercise Phase [...] MUSE ECG 12 lead (12/06/2018 9:03 AM RECYCLABLE MATERIALS COLLECTOR)Only the most recent of3 resultswithin the time period is included. Specimen Narrative Performed At Ventricular Rate 91 BPM GE MUSE Atrial Rate 91 BPM P-R Interval 172 ms QRS Duration 152 ms Q-T Interval 422 ms QTC Calculation(Bazett) 519 ms P Hitchcock 68 degrees R Hitchcock 67 degrees T Hitchcock 79 degrees Normal sinus rhythm Left bundle branch block Abnormal ECG Confirmed by MD Denny Roberto ([id number]) on 12/06/2018 2:16:39 PM Procedure Note Interface, External Ris In - 12/06/2018 2:16 PM RECYCLABLE MATERIALS COLLECTOR Ventricular Rate 91 BPM Atrial Rate 91 BPM P-R Interval 172 ms QRS Duration 152 ms Q-T Interval 422 ms QTC Calculation(Bazett) 519 ms P Hitchcock 68 degrees R Hitchcock 67 degrees T Hitchcock 79 degrees Normal sinus rhythm Left bundle branch block Abnormal ECG Confirmed by MD Denny Roberto ([id number]) on 12/06/2018 2:16:39 PM Performing Organization Address City/State/Zipcode Phone Number GE MUSE aPTT (12/06/2018 1:11 AM RECYCLABLE MATERIALS COLLECTOR)Only the most recent of20 resultswithin the time period is included. PTT 85.3 (H) 22.5 - 36.0 seconds [facility] Specimen Blood Performing Organization Address [facility] Cent[facility]ode Phone Number [address] [address] [phone] CENTER Vancomycin level, random (12/06/2018 1:11 AM RECYCLABLE MATERIALS COLLECTOR)Only the most recent of10 resultswithin the time period is included. Vancomycin Rm 18.7 ug/mL [facility] Specimen Blood Narrative Performed At Reference Range: No Normals [facility] Performing Organization Address [facility] Phone Number [address] [address] [phone] CENTER TRANSFUSION SERVICE REPORT - SCAN (12/05/2018 5:50 PM RECYCLABLE MATERIALS COLLECTOR)Only the most recent of4 resultswithin the time period is included. Narrative Performed At Prepare Leuko-Red RBC (12/04/2018 11:54 PM RECYCLABLE MATERIALS COLLECTOR)Only the most recent of2 resultswithin the time period is included. CROSSMATCH COMPATIBLE SAFETRACE TX Unit ABO A Neg SAFETRACE TX UNIT NUMBER [id number] SAFETRACE TX Status TRANSFUSED SAFETRACE TX Blood Bank Product RED BLOOD CELLS SAFETRACE TX PRODUCT CODE [id number] SAFETRACE TX Specimen Other Performing Organization Address City/[facility] Centercotn Phone Number SAFETRACE TX Transfuse Leuko-Red RBC (12/03/2018 3:10 PM RECYCLABLE MATERIALS COLLECTOR)Only the most recent of4 resultswithin the time period is included.Type and screen, automated (2018 8:46 AM RECYCLABLE MATERIALS COLLECTOR)Only the most recent of2 resultswithin the time period is included. ABO/RH AUTOMATED (BEAKER) A NEGATIVE [facility] Ab Scrn NEGATIVE [facility] Specimen Blood Performing Organization Address City/State/Zipcode Phone Number [facility] [address] [place] [address] HEMODIALYSIS INPATIENT (12/02/2018 9:15 PM RECYCLABLE MATERIALS COLLECTOR) Narrative Performed At Meenakshi No RN 12/02/20189:20 PM Hd completed for 4 hours with UF-2L. Pt's bp dropped at the end of HD. Pt given Ns 500 ml bolus. Pt responded to the bolus and blood pressure stabilize. Pt alert , awake. No distress. [facility] BP 127/61 (BP Location: Right [...] IR Tunneled Catheter Insertion (12/02/2018 1:10 PM RECYCLABLE MATERIALS COLLECTOR) Specimen Narrative Performed At FINAL REPORT [facility] History: Need for long-term hemodialysis access, malfunctioning [...] MD Report Verified Date/Time:12/06/2018 14:29:30 Reading Location: [place] [address] Angio Body Reading Room Procedure Note Interface, External Ris In - 12/06/2018 2:31 PM RECYCLABLE MATERIALS COLLECTOR FINAL REPORT History: Need for long-term hemodialysis [...] Report Verified Date/Time: 12/06/2018 14:29:30 Reading Location: [place] [address] Angio Body Reading Room Performing Organization Address City/[facility] Cent[facility]ode Phone Number GE RIS Hemoglobin and hematocrit (12/02/2018 8:24 AM RECYCLABLE MATERIALS COLLECTOR)Only the most recent of3 resultswithin the time period is included. Hemoglobin 7.2 (L) 11.2 - 15.7 GM/DL [facility] Hematocrit 24.1 (L) 34.1 - 44.9 % [facility] Specimen Blood Performing Organization Address City/[facility]/Zipcode Phone Number [place] [phone] [place] [address] [phone] CENTER PT/aPTT (12/02/2018 5:42 AM RECYCLABLE MATERIALS COLLECTOR)Only the most recent of2 resultswithin the time period is included. Protime 14.1 11.7 - 14.7 seconds [facility] INR 1.1 <=5.9 [facility] PTT 39.6 (H) 22.5 - 36.0 seconds [facility] Specimen Blood Narrative Performed At RECOMMENDED COUMADIN/WARFARIN INR THERAPY [facility] RANGES STANDARD DOSE: 2.0 - 3.0 Includes: PROPHYLAXIS for venous thrombosis, systemic embolization; TREATMENT for venous thrombosis and/or pulmonary embolus. HIGH RISK: Target INR is 2.5-3.5 for patients with mechanical heart valves. Performing Organization Address City/State/Zipcode Phone Number [facility] [address] [place] [address] CENTER MR lower extremity joint only without IV contrast right side (12/01/2018 7:00 PM RECYCLABLE MATERIALS COLLECTOR) Specimen Narrative Performed At FINAL REPORT [facility] Indication: Right hip pain TECHNIQUE: Multiplanar multisequence [...] MD Report Verified Date/Time:12/02/2018 09:05:25 Reading Location: [facility] B1 C013X Ortho Consult Reading Room Procedure Note Interface, External Ris In - 12/02/2018 9:07 AM RECYCLABLE MATERIALS COLLECTOR FINAL REPORT Indication: Right hip pain TECHNIQUE: [...] Report Verified Date/Time: 12/02/2018 09:05:25 Reading Location: [facility] B1 C013X Ortho Consult Reading Room Performing Organization Address City/State/Zipcode Phone Number GE [facility] XR hip 1 view right (12/01/2018 11:16 AM RECYCLABLE MATERIALS COLLECTOR) Specimen Narrative Performed At FINAL REPORT [facility] RAD, HIP, 1 VIEW, RIGHT CLINICAL INDICATION: [...] MD Report Verified Date/Time:12/01/2018 11:34:51 Reading Location: [facility] Radiology Reading Room Procedure Note Interface, External Ris In - 12/01/2018 12:16 PM RECYCLABLE MATERIALS COLLECTOR FINAL REPORT RAD, HIP, 1 VIEW, RIGHT [...] Report Verified Date/Time: 12/01/2018 11:34:51 Reading Location: [facility] Radiology Reading Room Performing Organization Address [facility] Centercode Phone Number [facility] Gentamicin level, trough (11/30/2018 8:57 PM RECYCLABLE MATERIALS COLLECTOR) Gentamicin Trough 1.5 (H) 0.5 - 1.0 ug/mL [facility] Specimen Blood Narrative Performed At Dosing [facility] Target Level (mcg/mL) 1-1.5 mg/kg q 8-12 HR 0.5-1.0 3-7 mg/kg q 24 HR<0.5 Before gent dose Performing Organization Address [facility]/Zipcode Phone Number [facility] [address] [place] [address] [phone] CENTER HEMODIALYSIS INPATIENT (11/30/2018 4:43 PM RECYCLABLE MATERIALS COLLECTOR) Narrative Performed At Khadijah Leavitt RN 11/30/20187:59 [...] pull original 2.5L. Medicated for pain with [place] X 1 with moderate effect.Patient stated that pain has returned and wants another [place]- not yet due. Pre-meal dinnertime blood glucose not covered as patient did not want to eat dinner yet.Dinner tray sent back to 21T with patient per patient request.Khadijah Leavitt RN Phosphorus (11/29/2018 5:59 AM RECYCLABLE MATERIALS COLLECTOR)Only the most recent of6 resultswithin the time period is included. Phosphorus 4.1 2.3 - 4.7 mg/dL [facility] Specimen Blood Performing Organization Address City/State/Zipcode Phone Number [facility] [address] [place] [address] CENTER HEMODIALYSIS INPATIENT (11/28/2018 11:37 PM RECYCLABLE MATERIALS COLLECTOR) Narrative Performed At Yevgeniy Laws RN 11/28/2018 [...] ECHOCARDIOGRAM REPORT - SCAN (11/28/2018 1:20 PM RECYCLABLE MATERIALS COLLECTOR) Narrative Performed At CT abdomen/pelvis without iv contrast (11/28/2018 9:19 AM RECYCLABLE MATERIALS COLLECTOR) Specimen Narrative Performed At FINAL REPORT [facility] ABDOMINAL AND PELVIS CT DATED 11/28/2018 CLINICAL [...] MD Report Verified Date/Time:11/28/2018 09:28:06 Reading Location: [facility] C013Y CT Body Reading Room Procedure Note Interface, External Ris In - 11/28/2018 9:30 AM RECYCLABLE MATERIALS COLLECTOR FINAL REPORT ABDOMINAL AND PELVIS CT DATED [...] to the time of the dictation.. Signed: Chtira Aguilera MD Report Verified Date/Time: 11/28/2018 09:28:06 Reading Location: [facility] B1 C013Y CT Body Reading Room Performing Organization Address City/State/Zipcode Phone Number [facility]IS Prothrombin time/INR (11/28/2018 9:01 AM RECYCLABLE MATERIALS COLLECTOR)Only the most recent of2 resultswithin the time period is included. Protime 14.5 11.7 - 14.7 seconds [facility] INR 1.1 <=5.9 [facility] Specimen Blood Narrative Performed At RECOMMENDED COUMADIN/WARFARIN INR THERAPY [facility] CENTER RANGES STANDARD DOSE: 2.0 - 3.0 Includes: PROPHYLAXIS for venous thrombosis, systemic embolization; TREATMENT for venous thrombosis and/or pulmonary embolus. HIGH RISK: Target INR is 2.5-3.5 for patients with mechanical heart valves. Performing Organization Address City/State/Zipcode Phone Number [facility] [address] [place] [address] CENTER Transesophageal echo (11/28/2018 8:58 AM RECYCLABLE MATERIALS COLLECTOR) Ejection Fraction [facility] ECHO [facility]ART[facility] MKCKESSON CPA Specimen Narrative Performed At Transesophageal Echocardiography Report (JOSE) [facility] Demographics Patient Name ALYSA FLORIAN Date of Study 11/28/2018 [id number] GenderFemale Visit Number [id number] Ricardo [id number] Room Number 2131 Number Date of Birth1955Referring Physician Mamadou Arreola Age63 year(s)Mother'S Helper Randall Jack InterpretingRaciro Jean, Physician Fellow [...] in RUPV Doppler. TV structure is normal. Ixje-oc-iumfgttm tricuspid regurgitation. Estimated peak systolic PA pressure [...] Doppler. Tricuspid TV structure is normal. Valve Wqsk-aq-baqlqykf tricuspid regurgitation. Estimated peak systolic PA pressure [...] External Ris In - 11/28/2018 12:33 PM RECYCLABLE MATERIALS COLLECTOR Transesophageal Echocardiography Report (JOSE) Demographics Patient Name ALYSA FLORIAN Date of Study 11/28/2018 Gender Female Visit Number [id number] Race Black Room Number 2131 Number Date of 1955 Referring Physician Mamadou Arreola Age 63 year(s) Mother'S Helper Randall Jack Interpreting Hugo Jean, Physician [...] in RUPV Doppler. TV structure is normal. Svou-or-pbslxvml tricuspid regurgitation. Estimated peak systolic PA pressure [...] Doppler. Tricuspid TV structure is normal. Valve Vncn-zv-nearlrnc tricuspid regurgitation. Estimated peak systolic PA pressure [...] TR Gradient: 57.33 mmHg Performing Organization Address City/[facility]/Zipcode Phone Number [facility] ECHO [facility] CPA Hepatitis B surface antigen (11/25/2018 3:08 PM RECYCLABLE MATERIALS COLLECTOR) hepatitis B Surface Ag NON-REACTIVE Nonreactive [facility] Specimen Blood Performing Organization Address City/[facility]/Zipcode Phone Number [address] [address] CENTER Troponin I (11/24/2018 4:03 AM RECYCLABLE MATERIALS COLLECTOR)Only the most recent of4 resultswithin the time period is included. Troponin I 0.31 (HH) 0.00 - 0.03 ng/mL [facility] Specimen Blood Narrative Performed At Troponin I (TnI) levels must be interpreted [facility] in the context of the presenting symptoms [...] disease, and persistent tachyarrhythmia. Performing Organization Address City/[facility]/Zipcode Phone Number [address] [address] GEM Lactic acid, venous, whole blood Daily (11/24/2018 4:03 AM RECYCLABLE MATERIALS COLLECTOR)Only the most recent of5 resultswithin the time period is included. Lactate, Venous 0.8 0.5 - 2.2 mmol/L [facility] Specimen Blood Performing Organization Address [facility] Phone Number [address] [address] GEM B-type Natriuretic Factor (BNP) (11/24/2018 4:03 AM RECYCLABLE MATERIALS COLLECTOR)Only the most recent of2 resultswithin the time period is included. BNP 190 (H) 0 - 100 pg/mL [facility] Specimen Blood Performing Organization Address [facility] Phone Number [address] [address] GEM Catheter Tip Culture (11/23/2018 12:54 PM RECYCLABLE MATERIALS COLLECTOR) Result No growth [facility] Specimen Other Performing Organization Address [facility] Phone Number [address] [address] [phone] GEM IR central venous catheter placement (jugular or femoral) (11/23/2018 12:38 PM RECYCLABLE MATERIALS COLLECTOR) Specimen Narrative Performed At FINAL REPORT [facility] Temporary DialysisCatheter Placement (non tunneled, centrally inserted, [...] MD Report Verified Date/Time:11/23/2018 16:53:15 Reading Location: [facility] B1 P048 Angio Body Reading Room Procedure Note Interface, External Ris In - 11/23/2018 4:55 PM RECYCLABLE MATERIALS COLLECTOR FINAL REPORT Temporary Dialysis Catheter Placement (non [...] Report Verified Date/Time: 11/23/2018 16:53:15 Reading Location: [place] [address] Angio Body Reading Room Performing Organization Address City/State/Zipcode Phone Number [facility] ECHOCARDIOGRAM REPORT - SCAN (11/23/2018 9:00 AM RECYCLABLE MATERIALS COLLECTOR) Narrative Performed At Calcium, Ionized (11/23/2018 7:27 AM RECYCLABLE MATERIALS COLLECTOR)Only the most recent of2 resultswithin the time period is included. Calcium, Ion 1.13 1.12 - 1.27 mmol/L [facility] pH, Blood 7.36 [facility] Specimen Blood Performing Organization Address City/State/Zipcode Phone Number [facility] [address] [place] [address] [phone] GEM Lipase (11/23/2018 7:00 AM RECYCLABLE MATERIALS COLLECTOR) Lipase 12 8 - 78 U/L [facility] Specimen Blood Performing Organization Address City/State/Zipcode Phone Number [facility] [address] [place] [phone] GEM Comprehensive metabolic panel (11/23/2018 7:00 AM RECYCLABLE MATERIALS COLLECTOR) Protein, Total 6.0 6.0 - 8.3 gm/dL [facility] Albumin 3.0 (L) 3.5 - 5.0 g/dL [facility] Alkaline Phosphatase 248 (H) 40 - 150 U/L [facility] Total Bilirubin 0.8 0.2 - 1.2 mg/dL [facility] Sodium 137 136 - 145 meq/L [facility] Potassium 3.6 3.5 - 5.1 meq/L [facility] Chloride 101 98 - 107 meq/L [facility] CO2 28 22 - 29 meq/L [facility] BUN 26 (H) 7 - 21 mg/dL [facility] Creatinine 4.09 (H) 0.57 - 1.25 mg/dL [facility] Glucose 201 (H) 70 - 105 mg/dL [facility] Calcium 9.3 8.4 - 10.2 mg/dL [facility] AST 39 (H) 5 - 34 U/L [facility] ALT 18 6 - 55 U/L [facility] EGFR 13Comment: ESTIMATED GFR mL/min/1.73 sq m [facility] CLEAR[facility] IN PREDICTING GLOMERULAR FILTRATION RATE. ESTIMATED GFR IS NOT APPLICABLE FOR DIALYSIS PATIENTS. Specimen Blood Performing Organization Address City/State/Zipcode Phone Number [facility] [address] [place] [address] CENTER US abdomen complete (11/22/2018 6:56 PM RECYCLABLE MATERIALS COLLECTOR) Specimen Narrative Performed At FINAL REPORT [facility] INDICATION: Septic Shock, ESRD, Dysuria, Abdominal Pain [...] MD Report Verified Date/Time:11/22/2018 20:30:54 Reading Location: [facility] C0[facility] Neuro Reading Room Procedure Note Interface, External Ris In - 11/22/2018 8:33 PM RECYCLABLE MATERIALS COLLECTOR FINAL REPORT INDICATION: Septic Shock, ESRD, Dysuria, [...] Report Verified Date/Time: 11/22/2018 20:30:54 Reading Location: [address] Neuro Reading Room Performing Organization Address City/State/Zipcode Phone Number [facility] XR chest 1 view portable / bedside (11/22/2018 4:48 PM RECYCLABLE MATERIALS COLLECTOR) Specimen Narrative Performed At FINAL REPORT [facility] EXAMINATION: AP PORTABLE CHEST RADIOGRAPH CLINICAL INDICATION: [...] MD Report Verified Date/Time:11/22/2018 17:04:54 Reading Location: [address] Reading Room Procedure Note Interface, External Ris In - 11/22/2018 5:07 PM RECYCLABLE MATERIALS COLLECTOR FINAL REPORT EXAMINATION: AP PORTABLE CHEST RADIOGRAPH [...] Report Verified Date/Time: 11/22/2018 17:04:54 Reading Location: [address] Reading Room Performing Organization Address City/State/Zipcode Phone Number [facility] Blood gas, arterial (11/22/2018 4:25 PM RECYCLABLE MATERIALS COLLECTOR) pH, Arterial 7.37 7.35 - 7.45 [facility] pCO2, Arterial 42 35 - 45 mmHg [facility] pO2, Arterial 123 (H) 80 - 90 mmHg [facility] O2 Sat, Arterial 98.3 (H) 96.0 - 97.0 % [facility] HCO3, Arterial 24 21 - 29 mmol/L [facility] Base Excess, Arterial -1.7 -2.0 - 3.0 mmol/L [facility] Patient Temperature 37.0 C [facility] FIO2 28.0 % [facility] Specimen Blood, Arterial Performing Organization Address City/State/Zipcode Phone Number [facility] [address] [place] [address] GEM Blood Culture Panel(BioFire) (11/22/2018 4:19 PM RECYCLABLE MATERIALS COLLECTOR) [place] MONOCYTOGENES Not detected Not detected [facility] STAPHYLOCOCCUS Detected (A) Not detected [facility] STAPHYLOCOCCUS AUREUS Detected (A) Not detected [facility] Comment: [facility] First line therapy: Vancomycin CENTER ID consultation strongly encouraged. Staphylococcus aureus DETECTED MecA DETECTED Reference Range: Not Detected Streptococcus Not detected Not detected [facility] STREPTOCOCCUS AGALACTIAE Not detected Not detected [facility] (GROUP B) [facility] STREPTOCOCCUS PNEUMONIAE Not detected Not detected [facility] Streptococcus pyogenes (Group Not detected Not detected [facility] A) [facility] ACINETOBACTER BAUMANNII Not detected Not detected [facility] HAEMOPHILUS INFLUENZAE Not detected Not detected [facility] [place]ER[place] MENINGITIDIS Not detected Not detected [facility] ENTEROBACTERIACEAE Not detected Not detected [facility] ENTEROBACTER CLOACOE COMPLEX Not detected Not detected [facility] KLEBSIELLA OXYTOCA Not detected Not detected [facility] KLEBSIELLA PNEUMONIAE Not detected Not detected [facility] PROTEUS Not detected Not detected [facility] SERRATIA MARCESCENS Not detected Not detected [facility] SHRUTHI ALBICANS Not detected Not detected [facility] SHRTUHI GLABRATA Not detected Not detected [facility] SHRUTHI KRUSEI Not detected Not detected [facility] SHRUTHI PARAPSILOSIS Not detected Not detected [facility] SHRUTHI TROPICALIS Not detected Not detected [facility] ESCHERICHIA COLI Not detected Not detected [facility] METHICILLIN-RESISTANCE GENE Detected (A) Not detected [facility] VANCOMYCIN-RESISTANCE GENE Not detected [facility] CARBAPENEM-RESISTANCE GENE Not detected [facility] ENTEROCOCCUS Not detected Not detected [facility] PSEUDOMONAS AERUGINOSA Not detected Not detected [facility] Specimen Blood Narrative Performed At Other bacteria and resistance markers not [facility] targeted by this PCR panel cannot be excluded; therefore clinical correlation and follow up of serology, culture results, and other molecular studies is required. The results are not intended to be used as the sole means for clinical diagnosis or patient management decisions. This sample was tested at the [facility] Molecular Diagnostics Laboratory using the [employer] Blood Culture ID Panel. It is FDA cleared and has been verified and approved by the [facility] Molecular Diagnostics Laboratory for clinical use. This laboratory is CLIA-certified and [employer] (CAP)-accredited to perform high complexity testing. Performing Organization Address City/[facility] Phone Number [facility] [address] [place] [address] [phone] CENTER Procalcitonin (11/22/2018 4:19 PM RECYCLABLE MATERIALS COLLECTOR) Procalcitonin >200.00 (HH) <0.05 ng/mL [facility] Specimen Blood Narrative Performed At SEPSIS RISK (ng/mL) [facility] Low:0.05-0.50 Intermediate: 0.51-2.00 High: >=2.01 Performing Organization Address [facility]/Zipcode Phone Number [facility] [address] [place] [address] CENTER Manual Differential (11/22/2018 4:19 PM RECYCLABLE MATERIALS COLLECTOR) % Neutros 85 % [facility] % Lymphs 5 % [facility] % Monos 4 % [facility] % Bands 6 0 - 10 % [facility] # Neutros 22.87 (H) 1.56 - 6.13 K/ul [facility] # Lymphs 1.35 1.18 - 3.74 K/ul [facility] # Monos 1.08 (H) 0.24 - 0.36 K/uL [facility] # Bands 1.61 (H) 0.00 - 0.80 K/uL [facility] Total Counted 100 [facility] WBC Morphology Normal [facility] Platelet Morphology Normal [facility] Polychromasia 3+ many [facility] Anisocytosis 1+ few [facility] Microcytes 1+ few [facility] Poikilocytes 2+ moderate [facility] Tear Drop Cells 1+ few [facility] Stafford Cells 1+ few [facility] Artifact Present [facility] Helmet Cells 1+ few [facility] Platelet Conc Adequate [facility] Specimen Blood Narrative Performed At Received comment: [facility] User comments: Slide comments: Performing Organization Address City/[facility]/Zipcode Phone Number [facility] [address] [place] [address] CENTER TSH/Free T4 If Indicated (11/22/2018 4:19 PM RECYCLABLE MATERIALS COLLECTOR) TSH 2.43 0.35 - 4.94 uIU/mL [facility] Specimen Blood Performing Organization Address [facility] Cent[facility]ode Phone Number [address] [address] GEM Oxygen saturation, measured (11/22/2018 4:19 PM RECYCLABLE MATERIALS COLLECTOR) O2 Saturation (Measured) 62.7 % [facility] Specimen Blood Narrative Performed At If patient has internal jugular ( IJ) or [facility] subclavian central line or PICC line. Draw from distal port. Label as central venous oxygen. Performing Organization Address [facility] Phone Number [address] [address] [phone] GEM Hepatic function panel (11/22/2018 4:19 PM RECYCLABLE MATERIALS COLLECTOR) Protein, Total 6.9 6.0 - 8.3 gm/dL [facility] Albumin 3.5 3.5 - 5.0 g/dL [facility] Total Bilirubin 0.9 0.2 - 1.2 mg/dL [facility] Bilirubin, Direct 0.6 (H) 0.1 - 0.5 mg/dL [facility] Alkaline Phosphatase 245 (H) 40 - 150 U/L [facility] AST 51 (H) 5 - 34 U/L [facility] ALT 18 6 - 55 U/L [facility] Specimen Blood Performing Organization Address City/State/Zipcode Phone Number [address] [address] GEM 2D Echo W/Doppler(CW/PW/Color) (11/22/2018 3:51 PM RECYCLABLE MATERIALS COLLECTOR) Ejection Fraction [facility] [employer] CPA Specimen Narrative Performed At Transthoracic Echocardiography Report (TTE) [facility] [place] Group[place] CPACS Demographics Patient Name ALYSA FLORIAN Date of Study 11/22/2018 [id number] GenderFemale Visit Number [id number] Ricardo [id number] Room Number [id number] Number Date of Birth1955Referring Physician Age63 year(s)Mother'S Helper Josué Mayes InterpretingRose Kothari Physician Fellow [...] hypokinesis. Estimated LVEF by qualitative assessment is iqtmtzmji-ye-aefcdldu reduced (30%) . 2. LV filling pressures [...] timated LVEF by qualitative assessment is mo mxsevol-ig-rmbouiuu reduced (30%) . Left AtriumLA size is [...] External Ris In - 11/23/2018 8:09 AM RECYCLABLE MATERIALS COLLECTOR Transthoracic Echocardiography Report (TTE) Demographics Patient Name ALYSA FLORIAN Date of Study 11/22/2018 Gender Female Visit Number [id number] Race Black Room Number [id number] Number Date of 1955 Referring Physician Age 63 year(s) Mother'S Helper Josué Mayes Interpreting Mari Kothari, Physician [...] hypokinesis. Estimated LVEF by qualitative assessment is mehtwhvbe-xp-otbtjqxz reduced (30%) . 2. LV filling pressures [...] hypokinesis. Estimated LVEF by qualitative assessment is ewbntllty-ku-urpajyfe reduced (30%) . Left Atrium LA size [...] Phone Number [facility] MKCKESSON CPACS after 04/28/2018 Insurance Payer Benefit Plan / Group Subscriber ID Type Phone Address [place] xxxxxxxxx ([place]) [place] [address] Advance Directives For more information, please contact:[place] [address] [address] [facility] [place] [phone] Code Status Date Activated Date Inactivated Comments Full Code 11/22/2018 3:25 PM This code status was determined by: Patient
--- OUTSIDE RECORDS SUMMARY | 2019-04-29 15:51 | XMS REPORT ---
:1955 [facility] Address [address] [place] [address] Care Team Providers Name Role Phone ARELY [...] Value Reference Range Comments CULTURE (BEAKER) (test msyk=6593) No growth in 5 days POCT-GLUCOSE [id number] 09:17:00 Test Item Value Reference Range Comments POC-GLUCOSE METER (BEAKER) 110 mg/dL 70-110 TESTED AT [facility] [address] [facility] (test nanx=1395) [facility] [address] CBC W/PLT COUNT & AUTO [id number] 07:05:00 Test Item Value Reference Range Comments WHITE BLOOD CELL COUNT (BEAKER) (test ilrz=252) 8.2 K/ L 3.5-10.5 RED BLOOD CELL COUNT (BEAKER) (test ocae=372) 2.79 M/ L 3.93-5.22 HEMOGLOBIN (BEAKER) (test wwdr=312) 7.8 GM/DL 11.2-15.7 HEMATOCRIT (BEAKER) (test ijee=283) 26.4 % 34.1-44.9 MEAN CORPUSCULAR VOLUME (BEAKER) (test dboi=788) 94.6 fL 79.4-94.8 MEAN CORPUSCULAR HEMOGLOBIN (BEAKER) (test 28.0 pg 25.6-32.2 cgmz=277) MEAN CORPUSCULAR HEMOGLOBIN CONC (BEAKER) (test 29.5 GM/DL 32.2-35.5 qrvh=582) RED CELL DISTRIBUTION WIDTH (BEAKER) (test 14.5 % 11.7-14.4 elgf=786) PLATELET COUNT (BEAKER) (test gevv=068) 299 K/CU MM 150-450 MEAN PLATELET VOLUME (BEAKER) (test fyvr=114) 10.0 fL 9.4-12.3 NUCLEATED RED BLOOD CELLS (BEAKER) (test 0 /100 WBC 0-0 iroo=910) NEUTROPHILS RELATIVE PERCENT (BEAKER) (test 72 % wqdy=714) LYMPHOCYTES RELATIVE PERCENT (BEAKER) (test 11 % bcwn=143) MONOCYTES RELATIVE PERCENT (BEAKER) (test 10 % taje=747) EOSINOPHILS RELATIVE PERCENT (BEAKER) (test 5 % xmvs=575) BASOPHILS RELATIVE PERCENT (BEAKER) (test 1 % ohwp=466) NEUTROPHILS ABSOLUTE COUNT (BEAKER) (test 5.93 K/ L 1.56-6.13 fjeq=025) LYMPHOCYTES ABSOLUTE COUNT (BEAKER) (test 0.87 K/ L 1.18-3.74 sfwy=908) MONOCYTES ABSOLUTE COUNT (BEAKER) (test 0.84 K/ L 0.24-0.36 viyr=041) EOSINOPHILS ABSOLUTE COUNT (BEAKER) (test 0.44 K/ L 0.04-0.36 emkj=674) BASOPHILS ABSOLUTE COUNT (BEAKER) (test 0.09 K/ L 0.01-0.08 kysm=937) IMMATURE GRANULOCYTES-RELATIVE PERCENT (BEAKER) 1 % 0-1 (test wtpj=0030) BASIC METABOLIC [id number] 07:04:00 Test Item Value Reference Range Comments SODIUM (BEAKER) (test 139 meq/L 136-145 kpnu=099) POTASSIUM (BEAKER) (test 4.3 meq/L 3.5-5.1 jcmj=666) CHLORIDE (BEAKER) (test 104 meq/L 98-107 bjrc=251) CO2 (BEAKER) (test 26 meq/L 22-29 cfls=840) BLOOD UREA NITROGEN 31 mg/dL 7-21 (BEAKER) (test kguz=552) CREATININE (BEAKER) (test 5.39 mg/dL 0.57-1.25 vyso=134) GLUCOSE RANDOM (BEAKER) 83 mg/dL 70-105 (test vmym=529) CALCIUM (BEAKER) (test 9.1 mg/dL 8.4-10.2 kgad=912) EGFR (BEAKER) (test 10 mL/min/1.73 sq m ESTIMATED GFR IS NOT sphd=7505) ACCURATE CREATININE CLEARANCE IN PREDICTING GLOMERULAR FILTRATION RATE. ESTIMATED GFR IS NOT APPLICABLE FOR DIALYSIS PATIENTS. RAD, ABDOMEN/KUB, 1 VIEW [id number] 04:19:00Reason for exam:->abdominal painFINAL REPORT EXAMINATION: SUPINE [...] Verified Date/ Time: 12/08/2018 04:19:23 Reading Location: [address] Reading Room POCT-GLUCOSE [id number] 21:25:00 Test Item Value Reference Range Comments POC-GLUCOSE METER (BEAKER) 193 mg/dL 70-110 TESTED AT [address] (test stfl=3498) [facility] [address] POCT-GLUCOSE [id number] 17:52:00 Test Item Value Reference Range Comments POC-GLUCOSE METER (BEAKER) 152 mg/dL 70-110 TESTED AT [address] (test cusz=7855) [facility] [address] POCT-GLUCOSE [id number] 14:15:00 Test Item Value Reference Range Comments POC-GLUCOSE METER (BEAKER) 284 mg/dL 70-110 TESTED AT [address] (test tdzh=3327) [facility] [address] POCT-GLUCOSE [id number] 08:09:00 Test Item Value Reference Range Comments POC-GLUCOSE METER (BEAKER) 185 mg/dL 70-110 TESTED AT [address] (test pepa=2378) [facility] [address] BASIC METABOLIC [id number] 06:30:00 Test Item Value Reference Range Comments SODIUM (BEAKER) (test 137 meq/L 136-145 cqxe=586) POTASSIUM (BEAKER) (test 4.2 meq/L 3.5-5.1 ivtc=372) CHLORIDE (BEAKER) (test 98 meq/L 98-107 dlqj=784) CO2 (BEAKER) (test 28 meq/L 22-29 louj=793) BLOOD UREA NITROGEN 46 mg/dL 7-21 (BEAKER) (test lyrp=162) CREATININE (BEAKER) (test 6.96 mg/dL 0.57-1.25 pgqo=053) GLUCOSE RANDOM (BEAKER) 131 mg/dL 70-105 (test vlva=473) CALCIUM (BEAKER) (test 9.1 mg/dL 8.4-10.2 itgn=179) EGFR (BEAKER) (test 7 mL/min/1.73 sq m ESTIMATED GFR IS NOT pitr=3927) ACCURATE CREATININE CLEARANCE IN PREDICTING GLOMERULAR FILTRATION RATE. ESTIMATED GFR IS NOT APPLICABLE FOR DIALYSIS PATIENTS. [id number] 06:29:00 Test Item Value Reference Range Comments MAGNESIUM (BEAKER) (test sjin=174) 2.2 mg/dL 1.6-2.6 CBC W/PLT COUNT & AUTO [id number] 05:57:00 Test Item Value Reference Range Comments WHITE BLOOD CELL COUNT (BEAKER) (test pgft=515) 11.4 K/ L 3.5-10.5 RED BLOOD CELL COUNT (BEAKER) (test dhst=286) 2.56 M/ L 3.93-5.22 HEMOGLOBIN (BEAKER) (test kmmm=938) 7.2 GM/DL 11.2-15.7 HEMATOCRIT (BEAKER) (test zfym=195) 23.4 % 34.1-44.9 MEAN CORPUSCULAR VOLUME (BEAKER) (test kqez=120) 91.4 fL 79.4-94.8 MEAN CORPUSCULAR HEMOGLOBIN (BEAKER) (test 28.1 pg 25.6-32.2 yjxn=405) MEAN CORPUSCULAR HEMOGLOBIN CONC (BEAKER) (test 30.8 GM/DL 32.2-35.5 gosc=566) RED CELL DISTRIBUTION WIDTH (BEAKER) (test 14.6 % 11.7-14.4 kfzx=829) PLATELET COUNT (BEAKER) (test pmlh=199) 246 K/CU MM 150-450 MEAN PLATELET VOLUME (BEAKER) (test krzg=356) 9.8 fL 9.4-12.3 NUCLEATED RED BLOOD CELLS (BEAKER) (test 0 /100 WBC 0-0 htta=067) NEUTROPHILS RELATIVE PERCENT (BEAKER) (test 82 % fmof=199) LYMPHOCYTES RELATIVE PERCENT (BEAKER) (test 6 % azyt=311) MONOCYTES RELATIVE PERCENT (BEAKER) (test 8 % fepp=082) EOSINOPHILS RELATIVE PERCENT (BEAKER) (test 3 % gkqz=961) BASOPHILS RELATIVE PERCENT (BEAKER) (test 1 % kihz=082) NEUTROPHILS ABSOLUTE COUNT (BEAKER) (test 9.41 K/ L 1.56-6.13 npxm=911) LYMPHOCYTES ABSOLUTE COUNT (BEAKER) (test 0.70 K/ L 1.18-3.74 fxrx=663) MONOCYTES ABSOLUTE COUNT (BEAKER) (test 0.89 K/ L 0.24-0.36 oong=157) EOSINOPHILS ABSOLUTE COUNT (BEAKER) (test 0.31 K/ L 0.04-0.36 ouee=406) BASOPHILS ABSOLUTE COUNT (BEAKER) (test 0.06 K/ L 0.01-0.08 ppbw=418) IMMATURE GRANULOCYTES-RELATIVE PERCENT (BEAKER) 1 % 0-1 (test vmun=7363) POCT-GLUCOSE [id number] 21:35:00 Test Item Value Reference Range Comments POC-GLUCOSE METER (BEAKER) 249 mg/dL 70-110 TESTED AT [place] [id number] [facility] (test baub=2123) [facility] [address] POCT-GLUCOSE [id number] 17:49:00 Test Item Value Reference Range Comments POC-GLUCOSE METER (BEAKER) 168 mg/dL 70-110 TESTED AT [place] [id number] [facility] (test vxwc=7866) [facility] [address] MYOCARD IMAGING, MULTI, PHARM, [id number] 16:00:00FINAL REPORT PROCEDURE: Rest/Stress MYOCARDIAL PERFUSION SPECT with regadenoson\\XA9\\ CPT CODE: 68081 INDICATION: New onset heart failure, intermediate risk [...] tracer distribution is normal. 6. No previous [facility] study for comparison. Signed: Dariana Jones MDReport Verified Date/Time: 12/06/2018 16:00:51 Reading Location: [address] [address] Reading Room Electronically signed by: DARIANA JONES MD on 2018 04:00 PMANG, TUNNELED CATHETER [id number] 14:29:00Reason for exam :->Tunneled cath for dialysisFINAL [...] Verified Date/Time: 12/06/2018 14:29:30 Reading Location : [address] Body Reading Room POCT-GLUCOSE [id number] 12:31:00 Test Item Value Reference Range Comments POC-GLUCOSE METER (BEAKER) 187 mg/dL 70-110 TESTED AT [address] (test ciee=4482) [facility] [address] POCT-GLUCOSE [id number] 11:21:00 Test Item Value Reference Range Comments POC-GLUCOSE METER (BEAKER) 165 mg/dL 70-110 TESTED AT [facility] [address] [facility] (test aexo=8299) [facility] [address] POCT-GLUCOSE [id number] 06:17:00 Test Item Value Reference Range Comments POC-GLUCOSE METER (BEAKER) 108 mg/dL 70-110 TESTED AT [facility] [address] [facility] (test wtjf=8771) [facility] [address] VANCOMYCIN LEVEL, [id number] 02:03:00 Test Item Value Reference Range Comments VANCOMYCIN RANDOM (BEAKER) (test ywvn=712) 18.7 ug/mL Reference Range: No NormalsCBC W/PLT COUNT & AUTO [id number] 01: 48:00 Test Item Value Reference Range Comments WHITE BLOOD CELL COUNT (BEAKER) (test tima=562) 12.1 K/ L 3.5-10.5 RED BLOOD CELL COUNT (BEAKER) (test jjul=218) 2.76 M/ L 3.93-5.22 HEMOGLOBIN (BEAKER) (test dtbg=258) 7.7 GM/DL 11.2-15.7 HEMATOCRIT (BEAKER) (test afgr=234) 25.1 % 34.1-44.9 MEAN CORPUSCULAR VOLUME (BEAKER) (test zzsn=493) 90.9 fL 79.4-94.8 MEAN CORPUSCULAR HEMOGLOBIN (BEAKER) (test 27.9 pg 25.6-32.2 lsaz=901) MEAN CORPUSCULAR HEMOGLOBIN CONC (BEAKER) (test 30.7 GM/DL 32.2-35.5 gkld=506) RED CELL DISTRIBUTION WIDTH (BEAKER) (test 14.6 % 11.7-14.4 pvbn=069) PLATELET COUNT (BEAKER) (test gqkv=521) 231 K/CU MM 150-450 MEAN PLATELET VOLUME (BEAKER) (test mlmm=538) 10.0 fL 9.4-12.3 NUCLEATED RED BLOOD CELLS (BEAKER) (test 0 /100 WBC 0-0 hpre=342) NEUTROPHILS RELATIVE PERCENT (BEAKER) (test 84 % wcpb=649) LYMPHOCYTES RELATIVE PERCENT (BEAKER) (test 7 % nyzs=094) MONOCYTES RELATIVE PERCENT (BEAKER) (test 6 % lijj=206) EOSINOPHILS RELATIVE PERCENT (BEAKER) (test 2 % wgzb=019) BASOPHILS RELATIVE PERCENT (BEAKER) (test 1 % fdyc=001) NEUTROPHILS ABSOLUTE COUNT (BEAKER) (test 10.17 K/ L 1.56-6.13 rkjo=375) LYMPHOCYTES ABSOLUTE COUNT (BEAKER) (test 0.79 K/ L 1.18-3.74 kupo=141) MONOCYTES ABSOLUTE COUNT (BEAKER) (test 0.73 K/ L 0.24-0.36 jlzq=274) EOSINOPHILS ABSOLUTE COUNT (BEAKER) (test 0.24 K/ L 0.04-0.36 ltsu=603) BASOPHILS ABSOLUTE COUNT (BEAKER) (test 0.08 K/ L 0.01-0.08 wuyq=074) IMMATURE GRANULOCYTES-RELATIVE PERCENT (BEAKER) 0 % 0-1 (test nptn=0362) BASIC METABOLIC [id number] 01:43:00 Test Item Value Reference Range Comments SODIUM (BEAKER) (test 136 meq/L 136-145 bxnq=335) POTASSIUM (BEAKER) (test 4.2 meq/L 3.5-5.1 wffa=142) CHLORIDE (BEAKER) (test 99 meq/L 98-107 frep=090) CO2 (BEAKER) (test 27 meq/L 22-29 gewe=113) BLOOD UREA NITROGEN 29 mg/dL 7-21 (BEAKER) (test uohd=377) CREATININE (BEAKER) (test 5.09 mg/dL 0.57-1.25 sibh=171) GLUCOSE RANDOM (BEAKER) 110 mg/dL 70-105 (test ybpd=950) CALCIUM (BEAKER) (test 9.0 mg/dL 8.4-10.2 lsly=430) EGFR (BEAKER) (test 10 mL/min/1.73 sq m ESTIMATED GFR IS NOT ekkb=8895) ACCURATE CREATININE CLEARANCE IN PREDICTING GLOMERULAR FILTRATION RATE. ESTIMATED GFR IS NOT APPLICABLE FOR DIALYSIS PATIENTS. [id number] 01:34:00 Test Item Value Reference Range Comments PARTIAL THROMBOPLASTIN TIME (BEAKER) (test 85.3 seconds 22.5-36.0 qjpq=635) POCT-GLUCOSE [id number] 21:26:00 Test Item Value Reference Range Comments POC-GLUCOSE METER (BEAKER) 154 mg/dL 70-110 TESTED AT [address] (test ymuq=9850) [facility] [address] POCT-GLUCOSE [id number] 16:29:00 Test Item Value Reference Range Comments POC-GLUCOSE METER (BEAKER) 121 mg/dL 70-110 TESTED AT [address] (test mxnz=8716) [facility] [address] POCT-GLUCOSE [id number] 16:26:00 Test Item Value Reference Range Comments POC-GLUCOSE METER (BEAKER) 119 mg/dL 70-110 TESTED AT [address] (test koir=0736) [facility] [address] [id number] 08:47:00 Test Item Value Reference Range Comments PARTIAL THROMBOPLASTIN TIME (BEAKER) (test 85.2 seconds 22.5-36.0 hxdu=094) BASIC METABOLIC [id number] 08:29:00 Test Item Value Reference Range Comments SODIUM (BEAKER) (test 133 meq/L 136-145 tisb=770) POTASSIUM (BEAKER) (test 4.7 meq/L 3.5-5.1 qxoo=794) CHLORIDE (BEAKER) (test 93 meq/L 98-107 tlei=685) CO2 (BEAKER) (test 24 meq/L 22-29 eike=338) BLOOD UREA NITROGEN 64 mg/dL 7-21 (BEAKER) (test dubq=422) CREATININE (BEAKER) (test 8.39 mg/dL 0.57-1.25 mhov=576) GLUCOSE RANDOM (BEAKER) 117 mg/dL 70-105 (test sqol=342) CALCIUM (BEAKER) (test 8.7 mg/dL 8.4-10.2 ybcl=811) EGFR (BEAKER) (test 6 mL/min/1.73 sq m ESTIMATED GFR IS NOT ajaw=8142) ACCURATE CREATININE CLEARANCE IN PREDICTING GLOMERULAR FILTRATION RATE. ESTIMATED GFR IS NOT APPLICABLE FOR DIALYSIS PATIENTS. CBC W/PLT COUNT & AUTO [id number] 08:25:00 Test Item Value Reference Range Comments WHITE BLOOD CELL COUNT (BEAKER) (test qwax=160) 15.1 K/ L 3.5-10.5 RED BLOOD CELL COUNT (BEAKER) (test opaz=200) 2.84 M/ L 3.93-5.22 HEMOGLOBIN (BEAKER) (test cgrk=094) 7.8 GM/DL 11.2-15.7 HEMATOCRIT (BEAKER) (test hwsf=853) 25.8 % 34.1-44.9 MEAN CORPUSCULAR VOLUME (BEAKER) (test ofsi=074) 90.8 fL 79.4-94.8 MEAN CORPUSCULAR HEMOGLOBIN (BEAKER) (test 27.5 pg 25.6-32.2 iumi=782) MEAN CORPUSCULAR HEMOGLOBIN CONC (BEAKER) (test 30.2 GM/DL 32.2-35.5 wkie=107) RED CELL DISTRIBUTION WIDTH (BEAKER) (test 14.7 % 11.7-14.4 mbid=656) PLATELET COUNT (BEAKER) (test loim=979) 258 K/CU MM 150-450 MEAN PLATELET VOLUME (BEAKER) (test soyx=825) 10.4 fL 9.4-12.3 NUCLEATED RED BLOOD CELLS (BEAKER) (test 0 /100 WBC 0-0 uxap=539) NEUTROPHILS RELATIVE PERCENT (BEAKER) (test 83 % mzfx=811) LYMPHOCYTES RELATIVE PERCENT (BEAKER) (test 8 % rsza=185) MONOCYTES RELATIVE PERCENT (BEAKER) (test 6 % cpjd=098) EOSINOPHILS RELATIVE PERCENT (BEAKER) (test 2 % udqg=889) BASOPHILS RELATIVE PERCENT (BEAKER) (test 1 % bwfx=646) NEUTROPHILS ABSOLUTE COUNT (BEAKER) (test 12.58 K/ L 1.56-6.13 racf=252) LYMPHOCYTES ABSOLUTE COUNT (BEAKER) (test 1.18 K/ L 1.18-3.74 yuct=753) MONOCYTES ABSOLUTE COUNT (BEAKER) (test 0.87 K/ L 0.24-0.36 gkcv=567) EOSINOPHILS ABSOLUTE COUNT (BEAKER) (test 0.30 K/ L 0.04-0.36 wdqw=170) BASOPHILS ABSOLUTE COUNT (BEAKER) (test 0.08 K/ L 0.01-0.08 pdqr=024) IMMATURE GRANULOCYTES-RELATIVE PERCENT (BEAKER) 1 % 0-1 (test uwlc=3355) [id number] 23:58:00 Test Item Value Reference Range Comments PARTIAL THROMBOPLASTIN TIME (BEAKER) (test 92.6 seconds 22.5-36.0 vuqf=489) POCT-GLUCOSE [id number] 20:54:00 Test Item Value Reference Range Comments POC-GLUCOSE METER (BEAKER) 151 mg/dL 70-110 TESTED AT [address] (test bwrs=4047) [facility] [address] POCT-GLUCOSE [id number] 17:04:00 Test Item Value Reference Range Comments POC-GLUCOSE METER (BEAKER) 158 mg/dL 70-110 TESTED AT [address] (test tmbs=0441) [place] [address] [id number] 16:25:00 Test Item Value Reference Range Comments PARTIAL THROMBOPLASTIN TIME (BEAKER) (test 75.9 seconds 22.5-36.0 nthl=049) POCT-GLUCOSE [id number] 12:34:00 Test Item Value Reference Range Comments POC-GLUCOSE METER (BEAKER) 183 mg/dL 70-110 TESTED AT [address] (test gnbn=7684) [place] [id number] POCT-GLUCOSE [id number] 12:00:00 Test Item Value Reference Range Comments POC-GLUCOSE METER (BEAKER) 175 mg/dL 70-110 TESTED AT [address] (test pyxp=0096) [place] [address] [id number] 10:17:00 Test Item Value Reference Range Comments PARTIAL THROMBOPLASTIN TIME (BEAKER) (test 32.1 seconds 22.5-36.0 esaw=893) Prior to initiating heparinBASIC METABOLIC [id number] 08:20:00 Test Item Value Reference Range Comments SODIUM (BEAKER) (test 134 meq/L 136-145 ppdh=992) POTASSIUM (BEAKER) (test 4.3 meq/L 3.5-5.1 qanb=108) CHLORIDE (BEAKER) (test 98 meq/L 98-107 uymn=979) CO2 (BEAKER) (test 26 meq/L 22-29 gkqk=930) BLOOD UREA NITROGEN 48 mg/dL 7-21 (BEAKER) (test vnmx=043) CREATININE (BEAKER) (test 6.48 mg/dL 0.57-1.25 caxw=750) GLUCOSE RANDOM (BEAKER) 124 mg/dL 70-105 (test chgy=392) CALCIUM (BEAKER) (test 9.2 mg/dL 8.4-10.2 lwby=256) EGFR (BEAKER) (test 8 mL/min/1.73 sq m ESTIMATED GFR IS NOT tukh=1524) ACCURATE CREATININE CLEARANCE IN PREDICTING GLOMERULAR FILTRATION RATE. ESTIMATED GFR IS NOT APPLICABLE FOR DIALYSIS PATIENTS. VANCOMYCIN LEVEL, [id number] 08:06:00 Test Item Value Reference Range Comments VANCOMYCIN RANDOM (BEAKER) (test urpi=743) 28.6 ug/mL Reference Range: No NormalsCBC W/PLT COUNT & AUTO [id number] 07: 14:00 Test Item Value Reference Range Comments WHITE BLOOD CELL COUNT (BEAKER) (test rxcj=455) 13.3 K/ L 3.5-10.5 RED BLOOD CELL COUNT (BEAKER) (test uqhg=844) 2.89 M/ L 3.93-5.22 HEMOGLOBIN (BEAKER) (test hktp=420) 7.9 GM/DL 11.2-15.7 HEMATOCRIT (BEAKER) (test gbme=930) 26.4 % 34.1-44.9 MEAN CORPUSCULAR VOLUME (BEAKER) (test hbrh=681) 91.3 fL 79.4-94.8 MEAN CORPUSCULAR HEMOGLOBIN (BEAKER) (test 27.3 pg 25.6-32.2 rbzj=011) MEAN CORPUSCULAR HEMOGLOBIN CONC (BEAKER) (test 29.9 GM/DL 32.2-35.5 gbgx=544) RED CELL DISTRIBUTION WIDTH (BEAKER) (test 15.2 % 11.7-14.4 qpnc=965) PLATELET COUNT (BEAKER) (test hqhm=657) 242 K/CU MM 150-450 MEAN PLATELET VOLUME (BEAKER) (test eadl=975) 10.2 fL 9.4-12.3 NUCLEATED RED BLOOD CELLS (BEAKER) (test 0 /100 WBC 0-0 ymlv=322) NEUTROPHILS RELATIVE PERCENT (BEAKER) (test 82 % pesy=402) LYMPHOCYTES RELATIVE PERCENT (BEAKER) (test 8 % yixm=150) MONOCYTES RELATIVE PERCENT (BEAKER) (test 6 % gfpp=260) EOSINOPHILS RELATIVE PERCENT (BEAKER) (test 2 % yqdu=315) BASOPHILS RELATIVE PERCENT (BEAKER) (test 1 % lwvf=450) NEUTROPHILS ABSOLUTE COUNT (BEAKER) (test 10.92 K/ L 1.56-6.13 eqyn=909) LYMPHOCYTES ABSOLUTE COUNT (BEAKER) (test 1.06 K/ L 1.18-3.74 azxz=080) MONOCYTES ABSOLUTE COUNT (BEAKER) (test 0.84 K/ L 0.24-0.36 wbjf=812) EOSINOPHILS ABSOLUTE COUNT (BEAKER) (test 0.31 K/ L 0.04-0.36 trdp=974) BASOPHILS ABSOLUTE COUNT (BEAKER) (test 0.08 K/ L 0.01-0.08 wnho=958) IMMATURE GRANULOCYTES-RELATIVE PERCENT (BEAKER) 1 % 0-1 (test umqc=1408) POCT-GLUCOSE [id number] 21:22:00 Test Item Value Reference Range Comments POC-GLUCOSE METER (BEAKER) 209 mg/dL 70-110 TESTED AT [address] (test yhtq=0694) [place] [address] POCT-GLUCOSE [id number] 17:40:00 Test Item Value Reference Range Comments POC-GLUCOSE METER (BEAKER) 213 mg/dL 70-110 TESTED AT [address] (test ubpw=1485) [place] [address] POCT-GLUCOSE [id number] 12:28:00 Test Item Value Reference Range Comments POC-GLUCOSE METER (BEAKER) 298 mg/dL 70-110 TESTED AT [address] (test vsjm=9793) [place] [address] BLOOD [id number] 11:01:00 Test Item Value Reference Range Comments CULTURE (AKER) (test rrzk=2801) No growth in 5 days POCT-GLUCOSE [id number] 08:43:00 Test Item Value Reference Range Comments POC-GLUCOSE METER (BEAKER) 147 mg/dL 70-110 TESTED AT [address] (test pjwu=2883) [place] [address] CBC W/PLT COUNT & AUTO [id number] 07:17:00 Test Item Value Reference Range Comments WHITE BLOOD CELL COUNT (BEAKER) (test qkdw=707) 12.1 K/ L 3.5-10.5 RED BLOOD CELL COUNT (BEAKER) (test oojp=176) 2.54 M/ L 3.93-5.22 HEMOGLOBIN (BEAKER) (test acbi=400) 6.9 GM/DL 11.2-15.7 HEMATOCRIT (BEAKER) (test dswd=597) 24.0 % 34.1-44.9 MEAN CORPUSCULAR VOLUME (BEAKER) (test rksr=534) 94.5 fL 79.4-94.8 MEAN CORPUSCULAR HEMOGLOBIN (BEAKER) (test 27.2 pg 25.6-32.2 zopc=014) MEAN CORPUSCULAR HEMOGLOBIN CONC (BEAKER) (test 28.8 GM/DL 32.2-35.5 jlug=048) RED CELL DISTRIBUTION WIDTH (BEAKER) (test 14.9 % 11.7-14.4 svdy=470) PLATELET COUNT (BEAKER) (test ezdi=292) 253 K/CU MM 150-450 MEAN PLATELET VOLUME (BEAKER) (test hmwq=871) 10.0 fL 9.4-12.3 NUCLEATED RED BLOOD CELLS (BEAKER) (test 0 /100 WBC 0-0 xfcn=100) NEUTROPHILS RELATIVE PERCENT (BEAKER) (test 83 % swwn=390) LYMPHOCYTES RELATIVE PERCENT (BEAKER) (test 7 % rhpx=960) MONOCYTES RELATIVE PERCENT (BEAKER) (test 6 % soid=316) EOSINOPHILS RELATIVE PERCENT (BEAKER) (test 3 % wyen=129) BASOPHILS RELATIVE PERCENT (BEAKER) (test 1 % tnyp=735) NEUTROPHILS ABSOLUTE COUNT (BEAKER) (test 10.04 K/ L 1.56-6.13 fvnl=629) LYMPHOCYTES ABSOLUTE COUNT (BEAKER) (test 0.88 K/ L 1.18-3.74 dtfs=118) MONOCYTES ABSOLUTE COUNT (BEAKER) (test 0.66 K/ L 0.24-0.36 vpla=671) EOSINOPHILS ABSOLUTE COUNT (BEAKER) (test 0.34 K/ L 0.04-0.36 ghpk=063) BASOPHILS ABSOLUTE COUNT (BEAKER) (test 0.09 K/ L 0.01-0.08 pcbw=311) IMMATURE GRANULOCYTES-RELATIVE PERCENT (BEAKER) 1 % 0-1 (test xmwr=0304) BASIC METABOLIC [id number] 07:02:00 Test Item Value Reference Range Comments SODIUM (BEAKER) (test 134 meq/L 136-145 nflw=015) POTASSIUM (BEAKER) (test 4.2 meq/L 3.5-5.1 Specimen slightly qiao=707) hemolyzed CHLORIDE (BEAKER) (test 99 meq/L 98-107 wsdw=295) CO2 (BEAKER) (test 25 meq/L 22-29 jsbd=201) BLOOD UREA NITROGEN 29 mg/dL 7-21 (BEAKER) (test xyjs=532) CREATININE (BEAKER) (test 4.76 mg/dL 0.57-1.25 Specimen slightly ggaq=254) hemolyzed GLUCOSE RANDOM (BEAKER) 116 mg/dL 70-105 (test xmaf=896) CALCIUM (BEAKER) (test 8.6 mg/dL 8.4-10.2 rynf=563) EGFR (BEAKER) (test 11 mL/min/1.73 sq m ESTIMATED GFR IS NOT hgem=8455) ACCURATE CREATININE CLEARANCE IN PREDICTING GLOMERULAR FILTRATION RATE. ESTIMATED GFR IS NOT APPLICABLE FOR DIALYSIS PATIENTS. BLOOD [id number] 11:01:00 Test Item Value Reference Range Comments CULTURE (BEAKER) (test ordr=1220) No growth in 5 days MR, EXTREMITY, LOWER, JOINT, WITHOUT CONTRAST, [id number] 09:05:00Reason for exam:->For hip painFINAL REPORT Indication: [...] MDReport Verified Date/Time: 12/02/2018 09:05:25 Reading Location: [facility] B1 [id number] Ortho Consult Reading Room Electronically signed by: JAYSON SHORT M.D. on 2018 09:05 AMHEMOGLOBIN AND [id number] 08:39:00 Test Item Value Reference Range Comments HEMOGLOBIN (BEAKER) (test hcvd=578) 7.2 GM/DL 11.2-15.7 HEMATOCRIT (BEAKER) (test fdsb=878) 24.1 % 34.1-44.9 POCT-GLUCOSE [id number] 07:54:00 Test Item Value Reference Range Comments POC-GLUCOSE METER (BEAKER) 186 mg/dL 70-110 TESTED AT [facility] [address] [facility] (test yiyd=6567) [facility] [address] CBC W/PLT COUNT & AUTO [id number] 07:22:00 Test Item Value Reference Range Comments WHITE BLOOD CELL COUNT (BEAKER) (test igkl=990) 13.3 K/ L 3.5-10.5 RED BLOOD CELL COUNT (BEAKER) (test iehx=810) 2.47 M/ L 3.93-5.22 HEMOGLOBIN (BEAKER) (test wena=932) 6.8 GM/DL 11.2-15.7 HEMATOCRIT (BEAKER) (test uynj=387) 23.2 % 34.1-44.9 MEAN CORPUSCULAR VOLUME (BEAKER) (test hqgo=910) 93.9 fL 79.4-94.8 MEAN CORPUSCULAR HEMOGLOBIN (BEAKER) (test 27.5 pg 25.6-32.2 uhql=982) MEAN CORPUSCULAR HEMOGLOBIN CONC (BEAKER) (test 29.3 GM/DL 32.2-35.5 hrpv=342) RED CELL DISTRIBUTION WIDTH (BEAKER) (test 15.2 % 11.7-14.4 ieej=671) PLATELET COUNT (BEAKER) (test wrlu=255) 304 K/CU MM 150-450 MEAN PLATELET VOLUME (BEAKER) (test rsxd=419) 9.9 fL 9.4-12.3 NUCLEATED RED BLOOD CELLS (BEAKER) (test 0 /100 WBC 0-0 ycfd=911) NEUTROPHILS RELATIVE PERCENT (BEAKER) (test 84 % hyze=421) LYMPHOCYTES RELATIVE PERCENT (BEAKER) (test 7 % vtlb=935) MONOCYTES RELATIVE PERCENT (BEAKER) (test 5 % tcpp=094) EOSINOPHILS RELATIVE PERCENT (BEAKER) (test 3 % vbpi=302) BASOPHILS RELATIVE PERCENT (BEAKER) (test 0 % unib=305) NEUTROPHILS ABSOLUTE COUNT (BEAKER) (test 11.17 K/ L 1.56-6.13 dttz=749) LYMPHOCYTES ABSOLUTE COUNT (BEAKER) (test 0.95 K/ L 1.18-3.74 xvir=623) MONOCYTES ABSOLUTE COUNT (BEAKER) (test 0.70 K/ L 0.24-0.36 qcae=142) EOSINOPHILS ABSOLUTE COUNT (BEAKER) (test 0.37 K/ L 0.04-0.36 gugk=494) BASOPHILS ABSOLUTE COUNT (BEAKER) (test 0.04 K/ L 0.01-0.08 hpdc=572) IMMATURE GRANULOCYTES-RELATIVE PERCENT (BEAKER) 1 % 0-1 (test ehoj=9665) POCT-GLUCOSE [id number] 07:10:00 Test Item Value Reference Range Comments POC-GLUCOSE METER (BEAKER) 177 mg/dL 70-110 TESTED AT [facility] [address] [facility] (test jkxh=0262) [facility] [address] BASIC METABOLIC [id number] 06:52:00 Test Item Value Reference Range Comments SODIUM (BEAKER) (test 137 meq/L 136-145 hqtf=306) POTASSIUM (BEAKER) (test 4.0 meq/L 3.5-5.1 fwva=212) CHLORIDE (BEAKER) (test 97 meq/L 98-107 lnqz=121) CO2 (BEAKER) (test 30 meq/L 22-29 zwqe=434) BLOOD UREA NITROGEN 46 mg/dL 7-21 (BEAKER) (test alul=457) CREATININE (BEAKER) (test 6.47 mg/dL 0.57-1.25 fefi=926) GLUCOSE RANDOM (BEAKER) 148 mg/dL 70-105 (test npcz=863) CALCIUM (BEAKER) (test 9.1 mg/dL 8.4-10.2 iytd=066) EGFR (BEAKER) (test 8 mL/min/1.73 sq m ESTIMATED GFR IS NOT vphc=9756) ACCURATE CREATININE CLEARANCE IN PREDICTING GLOMERULAR FILTRATION RATE. ESTIMATED GFR IS NOT APPLICABLE FOR DIALYSIS PATIENTS. VANCOMYCIN LEVEL, [id number] 06:43:00 Test Item Value Reference Range Comments VANCOMYCIN RANDOM (BEAKER) (test snpz=667) 19.0 ug/mL Reference Range: No [id number] 06:25:00 Test Item Value Reference Range Comments PROTIME (BEAKER) (test udvx=789) 14.1 seconds 11.7-14.7 INR (BEAKER) (test zvtl=304) 1.1 <=5.9 PARTIAL THROMBOPLASTIN TIME (BEAKER) (test 39.6 seconds 22.5-36.0 docv=410) RECOMMENDED COUMADIN/WARFARIN INR THERAPY RANGESSTANDARD DOSE: 2.0 - 3.0 Includes: PROPHYLAXIS forvenous thrombosis, systemic embolization; TREATMENT for venous thrombosis and/or pulmonary embolus.HIGH RISK: Target INR is 2.5-3.5 for patients with mechanical heart valves.POCT-GLUCOSE [id number] 23:37:00 Test Item Value Reference Range Comments POC-GLUCOSE METER (BEAKER) 258 mg/dL 70-110 TESTED AT [address] (test mcxw=8391) [place] [address] POCT-GLUCOSE [id number] 12:31:00 Test Item Value Reference Range Comments POC-GLUCOSE METER (BEAKER) 184 mg/dL 70-110 TESTED AT [address] (test urys=6143) [place] [address] BASIC METABOLIC [id number] 12:27:00 Test Item Value Reference Range Comments SODIUM (BEAKER) (test 136 meq/L 136-145 nxcz=973) POTASSIUM (BEAKER) (test 4.0 meq/L 3.5-5.1 xqvo=959) CHLORIDE (BEAKER) (test 99 meq/L 98-107 zqmr=330) CO2 (BEAKER) (test 26 meq/L 22-29 srnr=093) BLOOD UREA NITROGEN 29 mg/dL 7-21 (BEAKER) (test fmsk=847) CREATININE (BEAKER) (test 4.92 mg/dL 0.57-1.25 oxup=323) GLUCOSE RANDOM (BEAKER) 129 mg/dL 70-105 (test phok=396) CALCIUM (BEAKER) (test 9.0 mg/dL 8.4-10.2 mxba=763) EGFR (BEAKER) (test 11 mL/min/1.73 sq m ESTIMATED GFR IS NOT riyu=3305) ACCURATE CREATININE CLEARANCE IN PREDICTING GLOMERULAR FILTRATION RATE. ESTIMATED GFR IS NOT APPLICABLE FOR DIALYSIS PATIENTS. CBC W/PLT COUNT & AUTO [id number] 12:20:00 Test Item Value Reference Range Comments WHITE BLOOD CELL COUNT (BEAKER) (test rmfa=736) 14.6 K/ L 3.5-10.5 RED BLOOD CELL COUNT (BEAKER) (test cpzm=533) 2.69 M/ L 3.93-5.22 HEMOGLOBIN (BEAKER) (test qnew=729) 7.4 GM/DL 11.2-15.7 HEMATOCRIT (BEAKER) (test vogg=509) 25.1 % 34.1-44.9 MEAN CORPUSCULAR VOLUME (BEAKER) (test pecm=592) 93.3 fL 79.4-94.8 MEAN CORPUSCULAR HEMOGLOBIN (BEAKER) (test 27.5 pg 25.6-32.2 fekq=014) MEAN CORPUSCULAR HEMOGLOBIN CONC (BEAKER) (test 29.5 GM/DL 32.2-35.5 lzkt=325) RED CELL DISTRIBUTION WIDTH (BEAKER) (test 15.5 % 11.7-14.4 vily=608) PLATELET COUNT (BEAKER) (test qhag=010) 295 K/CU MM 150-450 MEAN PLATELET VOLUME (BEAKER) (test jeva=130) 9.8 fL 9.4-12.3 NUCLEATED RED BLOOD CELLS (BEAKER) (test 0 /100 WBC 0-0 wkhh=917) NEUTROPHILS RELATIVE PERCENT (BEAKER) (test 83 % qqyn=474) LYMPHOCYTES RELATIVE PERCENT (BEAKER) (test 8 % siuq=071) MONOCYTES RELATIVE PERCENT (BEAKER) (test 6 % gsbq=004) EOSINOPHILS RELATIVE PERCENT (BEAKER) (test 2 % nhkr=185) BASOPHILS RELATIVE PERCENT (BEAKER) (test 1 % ylba=954) NEUTROPHILS ABSOLUTE COUNT (BEAKER) (test 12.12 K/ L 1.56-6.13 fttm=016) LYMPHOCYTES ABSOLUTE COUNT (BEAKER) (test 1.19 K/ L 1.18-3.74 cetz=348) MONOCYTES ABSOLUTE COUNT (BEAKER) (test 0.81 K/ L 0.24-0.36 mvis=949) EOSINOPHILS ABSOLUTE COUNT (BEAKER) (test 0.31 K/ L 0.04-0.36 hpvg=495) BASOPHILS ABSOLUTE COUNT (BEAKER) (test 0.07 K/ L 0.01-0.08 zejh=582) IMMATURE GRANULOCYTES-RELATIVE PERCENT (BEAKER) 1 % 0-1 (test zfmr=5837) RAD, HIP, 1 VIEW, [id number] 11:34:00Reason for exam:->R hip painShould this be [...] MDReport Verified Date/Time: 2018 11:34:51 Reading Location: [facility] Radiology Reading Room POCT- GLUCOSE [id number] 08:01:00 Test Item Value Reference Range Comments POC-GLUCOSE METER (FARRAH) 189 mg/dL 70-110 TESTED AT [facility] [address] [facility] (test ibtq=4394) [facility] [address] VANCOMYCIN LEVEL, [id number] 06:44:00 Test Item Value Reference Range Comments VANCOMYCIN RANDOM (BEAKER) (test mbbt=857) 19.8 ug/mL Reference Range: No NormalsGENTAMICIN LEVEL, [id number] 21:58:00 Test Item Value Reference Range Comments GENTAMICIN TROUGH (BEAKER) (test ukyg=951) 1.5 ug/mL 0.5-1.0 Dosing Target Level (mcg/mL)1-1.5 mg/kg q 8-12 HR 0.5- 1.03-7 mg/kg q 24 HR <0.5Before gent dosePOCT-GLUCOSE [id number] 20:39:00 Test Item Value Reference Range Comments POC-GLUCOSE METER (BEAKER) 229 mg/dL 70-110 TESTED AT [address] (test hvis=0048) [facility] [address] POCT-GLUCOSE [id number] 20:02:00 Test Item Value Reference Range Comments POC-GLUCOSE METER (BEAKER) 251 mg/dL 70-110 TESTED AT [address] (test xiis=9865) [facility] [address] POCT-GLUCOSE [id number] 13:49:00 Test Item Value Reference Range Comments POC-GLUCOSE METER (BEAKER) 211 mg/dL 70-110 TESTED AT [address] (test kozj=8205) [place] [id number] POCT-GLUCOSE [id number] 08:02:00 Test Item Value Reference Range Comments POC-GLUCOSE METER (BEAKER) 182 mg/dL 70-110 TESTED AT [address] (test ckpb=6425) [facility] [address] BASIC METABOLIC [id number] 07:28:00 Test Item Value Reference Range Comments SODIUM (BEAKER) (test 138 meq/L 136-145 jsae=535) POTASSIUM (BEAKER) (test 4.1 meq/L 3.5-5.1 lhnv=227) CHLORIDE (BEAKER) (test 101 meq/L 98-107 vbfg=778) CO2 (BEAKER) (test 26 meq/L 22-29 mcvt=275) BLOOD UREA NITROGEN 42 mg/dL 7-21 (BEAKER) (test vgwn=966) CREATININE (BEAKER) (test 6.85 mg/dL 0.57-1.25 zbox=972) GLUCOSE RANDOM (BEAKER) 138 mg/dL 70-105 (test yzqz=051) CALCIUM (BEAKER) (test 8.9 mg/dL 8.4-10.2 dttv=312) EGFR (BEAKER) (test 7 mL/min/1.73 sq m ESTIMATED GFR IS NOT hrxb=2047) ACCURATE CREATININE CLEARANCE IN PREDICTING GLOMERULAR FILTRATION RATE. ESTIMATED GFR IS NOT APPLICABLE FOR DIALYSIS PATIENTS. VANCOMYCIN LEVEL, [id number] 07:07:00 Test Item Value Reference Range Comments VANCOMYCIN RANDOM (BEAKER) (test bqcd=906) 25.1 ug/mL Reference Range: No NormalsCBC W/PLT COUNT & AUTO [id number] 07: 02:00 Test Item Value Reference Range Comments WHITE BLOOD CELL COUNT (BEAKER) (test gscn=933) 15.1 K/ L 3.5-10.5 RED BLOOD CELL COUNT (BEAKER) (test zstu=501) 2.67 M/ L 3.93-5.22 HEMOGLOBIN (BEAKER) (test plug=687) 7.4 GM/DL 11.2-15.7 HEMATOCRIT (BEAKER) (test apdg=353) 24.8 % 34.1-44.9 MEAN CORPUSCULAR VOLUME (BEAKER) (test pwkk=700) 92.9 fL 79.4-94.8 MEAN CORPUSCULAR HEMOGLOBIN (BEAKER) (test 27.7 pg 25.6-32.2 pjrz=679) MEAN CORPUSCULAR HEMOGLOBIN CONC (BEAKER) (test 29.8 GM/DL 32.2-35.5 byfs=465) RED CELL DISTRIBUTION WIDTH (BEAKER) (test 15.9 % 11.7-14.4 nksg=719) PLATELET COUNT (BEAKER) (test kufu=743) 303 K/CU MM 150-450 MEAN PLATELET VOLUME (BEAKER) (test bnrl=974) 10.1 fL 9.4-12.3 NUCLEATED RED BLOOD CELLS (BEAKER) (test 0 /100 WBC 0-0 viub=605) NEUTROPHILS RELATIVE PERCENT (BEAKER) (test 85 % zjvx=460) LYMPHOCYTES RELATIVE PERCENT (BEAKER) (test 6 % wmoi=304) MONOCYTES RELATIVE PERCENT (BEAKER) (test 6 % znnn=843) EOSINOPHILS RELATIVE PERCENT (BEAKER) (test 2 % ykxi=169) BASOPHILS RELATIVE PERCENT (BEAKER) (test 0 % pans=073) NEUTROPHILS ABSOLUTE COUNT (BEAKER) (test 12.90 K/ L 1.56-6.13 weuo=661) LYMPHOCYTES ABSOLUTE COUNT (BEAKER) (test 0.85 K/ L 1.18-3.74 ahvj=247) MONOCYTES ABSOLUTE COUNT (BEAKER) (test 0.97 K/ L 0.24-0.36 tian=524) EOSINOPHILS ABSOLUTE COUNT (BEAKER) (test 0.25 K/ L 0.04-0.36 fwfz=220) BASOPHILS ABSOLUTE COUNT (BEAKER) (test 0.03 K/ L 0.01-0.08 hjyt=897) IMMATURE GRANULOCYTES-RELATIVE PERCENT (BEAKER) 1 % 0-1 (test ncjf=6989) POCT-GLUCOSE [id number] 21:24:00 Test Item Value Reference Range Comments POC-GLUCOSE METER (BEAKER) 189 mg/dL 70-110 TESTED AT [address] (test cxxo=7121) [place] [id number] POCT-GLUCOSE [id number] 17:50:00 Test Item Value Reference Range Comments POC-GLUCOSE METER (BEAKER) 215 mg/dL 70-110 TESTED AT [address] (test xrds=9398) [place] [address] POCT-GLUCOSE [id number] 13:23:00 Test Item Value Reference Range Comments POC-GLUCOSE METER (BEAKER) 270 mg/dL 70-110 TESTED AT [address] (test twld=6023) [place] [address] POCT-GLUCOSE [id number] 08:37:00 Test Item Value Reference Range Comments POC-GLUCOSE METER (BEAKER) 138 mg/dL 70-110 TESTED AT [address] (test pqxk=2388) [facility] [address] BASIC METABOLIC [id number] 06:54:00 Test Item Value Reference Range Comments SODIUM (BEAKER) (test 138 meq/L 136-145 ehjd=498) POTASSIUM (BEAKER) (test 3.9 meq/L 3.5-5.1 rgbk=884) CHLORIDE (BEAKER) (test 100 meq/L 98-107 jezf=909) CO2 (BEAKER) (test 26 meq/L 22-29 gbfx=786) BLOOD UREA NITROGEN 27 mg/dL 7-21 (BEAKER) (test lpnw=195) CREATININE (BEAKER) (test 5.01 mg/dL 0.57-1.25 ckwj=846) GLUCOSE RANDOM (BEAKER) 117 mg/dL 70-105 (test eemc=809) CALCIUM (BEAKER) (test 8.6 mg/dL 8.4-10.2 wxft=771) EGFR (BEAKER) (test 11 mL/min/1.73 sq m ESTIMATED GFR IS NOT ynbn=6888) ACCURATE CREATININE CLEARANCE IN PREDICTING GLOMERULAR FILTRATION RATE. ESTIMATED GFR IS NOT APPLICABLE FOR DIALYSIS PATIENTS. [id number] 06:53:00 Test Item Value Reference Range Comments PHOSPHORUS (BEAKER) (test bplc=023) 4.1 mg/dL 2.3-4.7 [id number] 06:53:00 Test Item Value Reference Range Comments MAGNESIUM (BEAKER) (test lfmu=015) 1.9 mg/dL 1.6-2.6 VANCOMYCIN LEVEL, [id number] 06:51:00 Test Item Value Reference Range Comments VANCOMYCIN RANDOM (BEAKER) (test riub=487) 27.5 ug/mL Reference Range: No NormalsCBC W/PLT COUNT & AUTO [id number] 06: 30:00 Test Item Value Reference Range Comments WHITE BLOOD CELL COUNT (BEAKER) (test dyma=439) 14.6 K/ L 3.5-10.5 RED BLOOD CELL COUNT (BEAKER) (test gnnq=396) 2.82 M/ L 3.93-5.22 HEMOGLOBIN (BEAKER) (test wkol=806) 7.8 GM/DL 11.2-15.7 HEMATOCRIT (BEAKER) (test agfb=686) 25.6 % 34.1-44.9 MEAN CORPUSCULAR VOLUME (BEAKER) (test kbml=534) 90.8 fL 79.4-94.8 MEAN CORPUSCULAR HEMOGLOBIN (BEAKER) (test 27.7 pg 25.6-32.2 hgwz=747) MEAN CORPUSCULAR HEMOGLOBIN CONC (BEAKER) (test 30.5 GM/DL 32.2-35.5 txva=821) RED CELL DISTRIBUTION WIDTH (BEAKER) (test 15.8 % 11.7-14.4 ifkg=319) PLATELET COUNT (BEAKER) (test iiap=905) 266 K/CU MM 150-450 MEAN PLATELET VOLUME (BEAKER) (test pzbj=662) 10.2 fL 9.4-12.3 NUCLEATED RED BLOOD CELLS (BEAKER) (test 0 /100 WBC 0-0 aygg=878) NEUTROPHILS RELATIVE PERCENT (BEAKER) (test 82 % nqaa=031) LYMPHOCYTES RELATIVE PERCENT (BEAKER) (test 7 % bycp=836) MONOCYTES RELATIVE PERCENT (BEAKER) (test 9 % jton=977) EOSINOPHILS RELATIVE PERCENT (BEAKER) (test 1 % vhku=161) BASOPHILS RELATIVE PERCENT (BEAKER) (test 0 % tytm=924) NEUTROPHILS ABSOLUTE COUNT (BEAKER) (test 11.86 K/ L 1.56-6.13 vmem=921) LYMPHOCYTES ABSOLUTE COUNT (BEAKER) (test 1.00 K/ L 1.18-3.74 gicp=011) MONOCYTES ABSOLUTE COUNT (BEAKER) (test 1.24 K/ L 0.24-0.36 weqg=034) EOSINOPHILS ABSOLUTE COUNT (BEAKER) (test 0.21 K/ L 0.04-0.36 tzzi=741) BASOPHILS ABSOLUTE COUNT (BEAKER) (test 0.04 K/ L 0.01-0.08 hrye=919) IMMATURE GRANULOCYTES-RELATIVE PERCENT (BEAKER) 1 % 0-1 (test qldc=4779) POCT-GLUCOSE [id number] 00:41:00 Test Item Value Reference Range Comments POC-GLUCOSE METER (BEAKER) 139 mg/dL 70-110 TESTED AT [address] (test kiua=2986) [place] [address] HEMOGLOBIN AND [id number] 23:23:00 Test Item Value Reference Range Comments HEMOGLOBIN (BEAKER) (test xcir=343) 9.0 GM/DL 11.2-15.7 HEMATOCRIT (BEAKER) (test mwrw=587) 29.7 % 34.1-44.9 Check after HD after she receives her blood transfusionPOCT-GLUCOSE [id number] 17:53:00 Test Item Value Reference Range Comments POC-GLUCOSE METER (BEAKER) 177 mg/dL 70-110 TESTED AT [address] (test sxcz=1073) [place] [address] POCT-GLUCOSE [id number] 13:03:00 Test Item Value Reference Range Comments POC-GLUCOSE METER (BEAKER) 171 mg/dL 70-110 TESTED AT [address] (test sgfr=8643) [place] [address] BLOOD [id number] 09:44:00 Test Item Value Reference Range Comments CULTURE (BEAKER) (test METHICILLIN RESISTANT From Aerobic And jgos=9547) STAPHYLOCOCCUS AUREUS Anaerobic Bottles Methicillin resistant Staphylococcus aureus Clindamycin (test code=10) Erythromycin (test code=4) Linezolid (test code=40) Nitrofurantoin (test code=23) Oxacillin (test code=14) Rifampin (test code=43) Tetracycline (test code=2) Trimethoprim + Sulfamethoxazole (test code=47) Vancomycin (test code=13) CULTURE (BEAKER) (test From Aerobic Bottle ykwk=8637) Only Methicillin resistant Staphylococcus aureusSame as first isolate. GRAM STAIN RESULT From aerobic and (BEAKER) (test lycl=7386) anaerobic bottles: gram positive cocci in clusters CT, [id number] 09:28:00FINAL REPORT ABDOMINAL AND PELVIS CT DATED [...] Aguilera Verified Date/Time: 2017 09:28:06 Reading Location: [address] Body Reading Room PROTHROMBIN [id number] 09:18:00 Test Item Value Reference Range Comments PROTIME (BEAKER) (test dsqa=565) 14.5 seconds 11.7-14.7 INR (BEAKER) (test eymj=636) 1.1 <=5.9 RECOMMENDED COUMADIN/WARFARIN INR THERAPY RANGESSTANDARD DOSE: 2.0 - 3.0 Includes: PROPHYLAXIS forvenous thrombosis, systemic embolization; TREATMENT for venous thrombosis and/or pulmonary embolus.HIGH RISK: Target INR is 2.5-3.5 for patients with mechanical heart valves.HEMOGLOBIN AND [id number] 09 :08:00 Test Item Value Reference Range Comments HEMOGLOBIN (BEAKER) (test vaqa=486) 7.0 GM/DL 11.2-15.7 HEMATOCRIT (BEAKER) (test mbzh=141) 23.2 % 34.1-44.9 BASIC METABOLIC [id number] 06:55:00 Test Item Value Reference Range Comments SODIUM (BEAKER) (test 137 meq/L 136-145 ebrh=460) POTASSIUM (BEAKER) (test 4.4 meq/L 3.5-5.1 qast=872) CHLORIDE (BEAKER) (test 101 meq/L 98-107 aevh=890) CO2 (BEAKER) (test 23 meq/L 22-29 mjxk=083) BLOOD UREA NITROGEN 56 mg/dL 7-21 (BEAKER) (test njer=718) CREATININE (BEAKER) (test 8.16 mg/dL 0.57-1.25 ssfw=918) GLUCOSE RANDOM (BEAKER) 131 mg/dL 70-105 (test vtan=732) CALCIUM (BEAKER) (test 8.4 mg/dL 8.4-10.2 qqaz=250) EGFR (BEAKER) (test 6 mL/min/1.73 sq m ESTIMATED GFR IS NOT jlww=0494) ACCURATE CREATININE CLEARANCE IN PREDICTING GLOMERULAR FILTRATION RATE. ESTIMATED GFR IS NOT APPLICABLE FOR DIALYSIS PATIENTS. [id number] 06:40:00 Test Item Value Reference Range Comments PARTIAL THROMBOPLASTIN TIME (BEAKER) (test 91.0 seconds 22.5-36.0 pfpy=095) CBC W/PLT COUNT & AUTO [id number] 06:33:00 Test Item Value Reference Range Comments WHITE BLOOD CELL COUNT (BEAKER) (test uqne=012) 16.6 K/ L 3.5-10.5 RED BLOOD CELL COUNT (BEAKER) (test grqz=689) 2.31 M/ L 3.93-5.22 HEMOGLOBIN (BEAKER) (test ssuc=695) 6.4 GM/DL 11.2-15.7 HEMATOCRIT (BEAKER) (test mfck=024) 21.3 % 34.1-44.9 MEAN CORPUSCULAR VOLUME (BEAKER) (test jodv=035) 92.2 fL 79.4-94.8 MEAN CORPUSCULAR HEMOGLOBIN (BEAKER) (test 27.7 pg 25.6-32.2 rozh=898) MEAN CORPUSCULAR HEMOGLOBIN CONC (BEAKER) (test 30.0 GM/DL 32.2-35.5 npog=849) RED CELL DISTRIBUTION WIDTH (BEAKER) (test 15.0 % 11.7-14.4 onak=674) PLATELET COUNT (BEAKER) (test jwlc=747) 276 K/CU MM 150-450 MEAN PLATELET VOLUME (BEAKER) (test knrf=669) 10.4 fL 9.4-12.3 NUCLEATED RED BLOOD CELLS (BEAKER) (test 0 /100 WBC 0-0 ggch=050) NEUTROPHILS RELATIVE PERCENT (BEAKER) (test 82 % nwbc=024) LYMPHOCYTES RELATIVE PERCENT (BEAKER) (test 7 % uomk=405) MONOCYTES RELATIVE PERCENT (BEAKER) (test 8 % lnuz=928) EOSINOPHILS RELATIVE PERCENT (BEAKER) (test 1 % xhfh=535) BASOPHILS RELATIVE PERCENT (BEAKER) (test 0 % jlxr=898) NEUTROPHILS ABSOLUTE COUNT (BEAKER) (test 13.67 K/ L 1.56-6.13 frnj=610) LYMPHOCYTES ABSOLUTE COUNT (BEAKER) (test 1.14 K/ L 1.18-3.74 ooog=046) MONOCYTES ABSOLUTE COUNT (BEAKER) (test 1.38 K/ L 0.24-0.36 yowz=205) EOSINOPHILS ABSOLUTE COUNT (BEAKER) (test 0.08 K/ L 0.04-0.36 lvkp=155) BASOPHILS ABSOLUTE COUNT (BEAKER) (test 0.06 K/ L 0.01-0.08 ohpe=337) IMMATURE GRANULOCYTES-RELATIVE PERCENT (BEAKER) 2 % 0-1 (test zlvl=3919) POCT-GLUCOSE [id number] 21:47:00 Test Item Value Reference Range Comments POC-GLUCOSE METER (BEAKER) 173 mg/dL 70-110 TESTED AT [address] (test ynls=2251) [place] [address] [id number] 18:27:00 Test Item Value Reference Range Comments PARTIAL THROMBOPLASTIN TIME (BEAKER) (test 78.5 seconds 22.5-36.0 kczc=886) POCT-GLUCOSE [id number] 13:23:00 Test Item Value Reference Range Comments POC-GLUCOSE METER (BEAKER) 176 mg/dL 70-110 TESTED AT [address] (test wimy=2756) [place] [address] [id number] 11:24:00 Test Item Value Reference Range Comments PARTIAL THROMBOPLASTIN TIME (BEAKER) (test 83.7 seconds 22.5-36.0 uusb=580) POCT-GLUCOSE [id number] 08:13:00 Test Item Value Reference Range Comments POC-GLUCOSE METER (BEAKER) 189 mg/dL 70-110 TESTED AT [address] (test cukr=9893) [place] [address] BASIC METABOLIC [id number] 06:03:00 Test Item Value Reference Range Comments SODIUM (BEAKER) (test 135 meq/L 136-145 swkx=227) POTASSIUM (BEAKER) (test 3.9 meq/L 3.5-5.1 usdx=674) CHLORIDE (BEAKER) (test 100 meq/L 98-107 efjh=092) CO2 (BEAKER) (test 23 meq/L 22-29 cvqd=382) BLOOD UREA NITROGEN 41 mg/dL 7-21 (BEAKER) (test plhx=124) CREATININE (BEAKER) (test 6.33 mg/dL 0.57-1.25 xdes=147) GLUCOSE RANDOM (BEAKER) 154 mg/dL 70-105 (test jtfs=379) CALCIUM (BEAKER) (test 8.8 mg/dL 8.4-10.2 jtsc=477) EGFR (BEAKER) (test 8 mL/min/1.73 sq m ESTIMATED GFR IS NOT stda=6872) ACCURATE CREATININE CLEARANCE IN PREDICTING GLOMERULAR FILTRATION RATE. ESTIMATED GFR IS NOT APPLICABLE FOR DIALYSIS PATIENTS. VANCOMYCIN LEVEL, [id number] 05:41:00 Test Item Value Reference Range Comments VANCOMYCIN RANDOM (BEAKER) (test kcpb=379) 34.9 ug/mL Reference Range: No NormalsCBC W/PLT COUNT & AUTO [id number] 05: 36:00 Test Item Value Reference Range Comments WHITE BLOOD CELL COUNT (BEAKER) (test lfyn=529) 15.0 K/ L 3.5-10.5 RED BLOOD CELL COUNT (BEAKER) (test xdto=441) 2.79 M/ L 3.93-5.22 HEMOGLOBIN (BEAKER) (test zhrx=279) 7.6 GM/DL 11.2-15.7 HEMATOCRIT (BEAKER) (test jpbz=549) 25.8 % 34.1-44.9 MEAN CORPUSCULAR VOLUME (BEAKER) (test jiei=376) 92.5 fL 79.4-94.8 MEAN CORPUSCULAR HEMOGLOBIN (BEAKER) (test 27.2 pg 25.6-32.2 guxx=667) MEAN CORPUSCULAR HEMOGLOBIN CONC (BEAKER) (test 29.5 GM/DL 32.2-35.5 chsu=923) RED CELL DISTRIBUTION WIDTH (BEAKER) (test 14.6 % 11.7-14.4 qtko=804) PLATELET COUNT (BEAKER) (test jgne=046) 229 K/CU MM 150-450 MEAN PLATELET VOLUME (BEAKER) (test vjvv=738) 10.6 fL 9.4-12.3 NUCLEATED RED BLOOD CELLS (BEAKER) (test 0 /100 WBC 0-0 ojws=717) NEUTROPHILS RELATIVE PERCENT (BEAKER) (test 85 % wtub=318) LYMPHOCYTES RELATIVE PERCENT (BEAKER) (test 6 % vdxj=123) MONOCYTES RELATIVE PERCENT (BEAKER) (test 7 % pibm=852) EOSINOPHILS RELATIVE PERCENT (BEAKER) (test 1 % bbkl=952) BASOPHILS RELATIVE PERCENT (BEAKER) (test 0 % pgjx=499) NEUTROPHILS ABSOLUTE COUNT (BEAKER) (test 12.75 K/ L 1.56-6.13 juwb=512) LYMPHOCYTES ABSOLUTE COUNT (BEAKER) (test 0.92 K/ L 1.18-3.74 tqik=005) MONOCYTES ABSOLUTE COUNT (BEAKER) (test 1.00 K/ L 0.24-0.36 ngdy=427) EOSINOPHILS ABSOLUTE COUNT (BEAKER) (test 0.17 K/ L 0.04-0.36 uozn=191) BASOPHILS ABSOLUTE COUNT (BEAKER) (test 0.05 K/ L 0.01-0.08 bmzn=510) IMMATURE GRANULOCYTES-RELATIVE PERCENT (BEAKER) 1 % 0-1 (test mbmz=5436) [id number] 05:31:00 Test Item Value Reference Range Comments PARTIAL THROMBOPLASTIN TIME (BEAKER) (test 69.7 seconds 22.5-36.0 xbcm=089) POCT-GLUCOSE [id number] 22:11:00 Test Item Value Reference Range Comments POC-GLUCOSE METER (BEAKER) 175 mg/dL 70-110 TESTED AT [address] (test cmni=8381) [place] [address] [id number] 20:48:00 Test Item Value Reference Range Comments PARTIAL THROMBOPLASTIN TIME (BEAKER) (test 61.5 seconds 22.5-36.0 gmdg=303) [id number] 19:00:00 Test Item Value Reference Range Comments PARTIAL THROMBOPLASTIN TIME (BEAKER) (test > seconds 22.5-36.0 bizq=317) POCT-GLUCOSE [id number] 17:10:00 Test Item Value Reference Range Comments POC-GLUCOSE METER (BEAKER) 211 mg/dL 70-110 TESTED AT [address] (test gdzq=3106) [place] [address] POCT-GLUCOSE [id number] 12:54:00 Test Item Value Reference Range Comments POC-GLUCOSE METER (BEAKER) 181 mg/dL 70-110 TESTED AT [address] (test mzgu=9877) [place] [address] [id number] 11:03:00 Test Item Value Reference Range Comments PARTIAL THROMBOPLASTIN TIME (BEAKER) (test 83.7 seconds 22.5-36.0 stis=395) CATHETER TIP [id number] 09:36:00 Test Item Value Reference Range Comments CULTURE (BEAKER) (test oewl=8718) No growth POCT-GLUCOSE [id number] 08:14:00 Test Item Value Reference Range Comments POC-GLUCOSE METER (BEAKER) 191 mg/dL 70-110 TESTED AT [address] (test sudi=6178) [place] [id number] 03:56:00 Test Item Value Reference Range Comments PARTIAL THROMBOPLASTIN TIME (BEAKER) (test 104.2 seconds 22.5-36.0 mbjt=258) POCT-GLUCOSE [id number] 03:23:00 Test Item Value Reference Range Comments POC-GLUCOSE METER (BEAKER) 152 mg/dL 70-110 TESTED AT [address] (test ebpk=8768) [place] [id number] POCT-GLUCOSE [id number] 22:14:00 Test Item Value Reference Range Comments POC-GLUCOSE METER (BEAKER) 193 mg/dL 70-110 TESTED AT [address] (test huoj=6226) [place] [address] [id number] 21:14:00 Test Item Value Reference Range Comments PARTIAL THROMBOPLASTIN TIME (BEAKER) (test 82.5 seconds 22.5-36.0 womo=032) POCT-GLUCOSE [id number] 19:35:00 Test Item Value Reference Range Comments POC-GLUCOSE METER (BEAKER) 156 mg/dL 70-110 TESTED AT [address] (test vyrs=7064) [place] [address] VANCOMYCIN LEVEL, [id number] 18:48:00 Test Item Value Reference Range Comments VANCOMYCIN RANDOM (BEAKER) (test xfbq=115) 12.6 ug/mL Reference Range: No NormalsPlease draw a random vancomycin level at end of dialysis tomorrow 11/25HEPATITIS B SURFACE [id number] 15:50:00 Test Item Value Reference Range Comments HEPATITIS B SURFACE ANTIGEN (2) (BEAKER) (test Nonreactive Nonreactive yqrn=0249) [id number] 15:27:00 Test Item Value Reference Range Comments PARTIAL THROMBOPLASTIN TIME (BEAKER) (test 64.9 seconds 22.5-36.0 ifgo=063) BASIC METABOLIC [id number] 14:04:00 Test Item Value Reference Range Comments SODIUM (BEAKER) (test 134 meq/L 136-145 qnxu=446) POTASSIUM (BEAKER) (test 3.9 meq/L 3.5-5.1 todt=354) CHLORIDE (BEAKER) (test 100 meq/L 98-107 okzh=036) CO2 (BEAKER) (test 22 meq/L 22-29 zvwq=674) BLOOD UREA NITROGEN 68 mg/dL 7-21 (BEAKER) (test ivuj=280) CREATININE (BEAKER) (test 8.46 mg/dL 0.57-1.25 rlgu=657) GLUCOSE RANDOM (BEAKER) 156 mg/dL 70-105 (test fghy=594) CALCIUM (BEAKER) (test 8.7 mg/dL 8.4-10.2 anun=690) EGFR (BEAKER) (test 6 mL/min/1.73 sq m ESTIMATED GFR IS NOT ycbt=6209) ACCURATE CREATININE CLEARANCE IN PREDICTING GLOMERULAR FILTRATION RATE. ESTIMATED GFR IS NOT APPLICABLE FOR DIALYSIS PATIENTS. [id number] 13:33:00 Test Item Value Reference Range Comments PARTIAL THROMBOPLASTIN TIME (BEAKER) (test 67.9 seconds 22.5-36.0 axst=933) BLOOD [id number] 10:14:00 Test Item Value Reference Range Comments CULTURE (BEAKER) From Aerobic And Anaerobic (test czbm=9765) Bottles Staphylococcus aureusRefer to previous culture ofMethicillin resistant Staphylococcus aureus GRAM STAIN RESULT From aerobic and (BEAKER) (test anaerobic bottles: erdd=5852) gram positive cocci in clusters BLOOD [id number] 10:12:00 Test Item Value Reference Range Comments CULTURE (BEAKER) (test METHICILLIN RESISTANT From Aerobic And ytpe=7175) STAPHYLOCOCCUS AUREUS Anaerobic Bottles Methicillin resistant Staphylococcus aureus Clindamycin (test code=10) Erythromycin (test code=4) Linezolid (test code=40) Nitrofurantoin (test code=23) Oxacillin (test code=14) Rifampin (test code=43) Tetracycline (test code=2) Trimethoprim + Sulfamethoxazole (test code=47) Vancomycin (test code=13) GRAM STAIN RESULT From aerobic and (BEAKER) (test xorm=1190) anaerobic bottles: gram positive cocci in clusters POCT-GLUCOSE [id number] 08:05:00 Test Item Value Reference Range Comments POC-GLUCOSE METER (BEAKER) 182 mg/dL 70-110 TESTED AT [facility] [address] [facility] (test wneb=5342) [facility] [address] [id number] 06:49:00 Test Item Value Reference Range Comments PARTIAL THROMBOPLASTIN TIME (BEAKER) (test 83.0 seconds 22.5-36.0 ivzp=928) CBC W/PLT COUNT & AUTO [id number] 05:45:00 Test Item Value Reference Range Comments WHITE BLOOD CELL COUNT (BEAKER) (test lwmd=218) 8.1 K/ L 3.5-10.5 RED BLOOD CELL COUNT (BEAKER) (test flvy=300) 2.88 M/ L 3.93-5.22 HEMOGLOBIN (BEAKER) (test oxnn=954) 8.1 GM/DL 11.2-15.7 HEMATOCRIT (BEAKER) (test zrfw=400) 26.6 % 34.1-44.9 MEAN CORPUSCULAR VOLUME (BEAKER) (test rxdi=009) 92.4 fL 79.4-94.8 MEAN CORPUSCULAR HEMOGLOBIN (BEAKER) (test 28.1 pg 25.6-32.2 putg=169) MEAN CORPUSCULAR HEMOGLOBIN CONC (BEAKER) (test 30.5 GM/DL 32.2-35.5 cmrl=316) RED CELL DISTRIBUTION WIDTH (BEAKER) (test 14.9 % 11.7-14.4 ukea=801) PLATELET COUNT (BEAKER) (test zrue=611) 117 K/CU MM 150-450 MEAN PLATELET VOLUME (BEAKER) (test omcm=381) 10.5 fL 9.4-12.3 NUCLEATED RED BLOOD CELLS (BEAKER) (test 0 /100 WBC 0-0 nube=256) NEUTROPHILS RELATIVE PERCENT (BEAKER) (test 72 % jakv=863) LYMPHOCYTES RELATIVE PERCENT (BEAKER) (test 11 % bdvh=146) MONOCYTES RELATIVE PERCENT (BEAKER) (test 10 % recu=233) EOSINOPHILS RELATIVE PERCENT (BEAKER) (test 5 % fxgo=578) BASOPHILS RELATIVE PERCENT (BEAKER) (test 1 % gcmq=941) NEUTROPHILS ABSOLUTE COUNT (BEAKER) (test 5.83 K/ L 1.56-6.13 boml=749) LYMPHOCYTES ABSOLUTE COUNT (BEAKER) (test 0.92 K/ L 1.18-3.74 dkyf=306) MONOCYTES ABSOLUTE COUNT (BEAKER) (test 0.79 K/ L 0.24-0.36 jsln=424) EOSINOPHILS ABSOLUTE COUNT (BEAKER) (test 0.41 K/ L 0.04-0.36 tizq=460) BASOPHILS ABSOLUTE COUNT (BEAKER) (test 0.05 K/ L 0.01-0.08 xnck=236) IMMATURE GRANULOCYTES-RELATIVE PERCENT (BEAKER) 1 % 0-1 (test ysgw=6565) BASIC METABOLIC [id number] 00:23:00 Test Item Value Reference Range Comments SODIUM (BEAKER) (test 134 meq/L 136-145 vfjr=187) POTASSIUM (BEAKER) (test 3.8 meq/L 3.5-5.1 btbg=609) CHLORIDE (BEAKER) (test 100 meq/L 98-107 mytc=871) CO2 (BEAKER) (test 22 meq/L 22-29 flbk=960) BLOOD UREA NITROGEN 62 mg/dL 7-21 (BEAKER) (test idtf=918) CREATININE (BEAKER) (test 7.39 mg/dL 0.57-1.25 skgg=748) GLUCOSE RANDOM (BEAKER) 155 mg/dL 70-105 (test dmwn=632) CALCIUM (BEAKER) (test 8.6 mg/dL 8.4-10.2 kstf=120) EGFR (BEAKER) (test 7 mL/min/1.73 sq m ESTIMATED GFR IS NOT kjws=4519) ACCURATE CREATININE CLEARANCE IN PREDICTING GLOMERULAR FILTRATION RATE. ESTIMATED GFR IS NOT APPLICABLE FOR DIALYSIS PATIENTS. [id number] 00:15:00 Test Item Value Reference Range Comments PHOSPHORUS (BEAKER) (test icjt=486) 3.5 mg/dL 2.3-4.7 [id number] 00:15:00 Test Item Value Reference Range Comments MAGNESIUM (BEAKER) (test eqvq=576) 2.3 mg/dL 1.6-2.6 [id number] 00:03:00 Test Item Value Reference Range Comments PARTIAL THROMBOPLASTIN TIME (BEAKER) (test 105.0 seconds 22.5-36.0 uctt=783) POCT-GLUCOSE [id number] 22:14:00 Test Item Value Reference Range Comments POC-GLUCOSE METER (BEAKER) 200 mg/dL 70-110 TESTED AT [facility] [address] [facility] (test pbug=0083) [facility] [address] [id number] 17:22:00 Test Item Value Reference Range Comments PROTIME (BEAKER) (test vbce=777) 13.7 seconds 11.7-14.7 INR (BEAKER) (test nvwc=129) 1.0 <=5.9 PARTIAL THROMBOPLASTIN TIME (BEAKER) (test 64.3 seconds 22.5-36.0 gqpw=194) RECOMMENDED COUMADIN/WARFARIN INR THERAPY RANGESSTANDARD DOSE: 2.0 - 3.0 Includes: PROPHYLAXIS forvenous thrombosis, systemic embolization; TREATMENT for venous thrombosis and/or pulmonary embolus.HIGH RISK: Target INR is 2.5-3.5 for patients with mechanical heart valves.Prior to initiating heparinPrior to initiating [id number] 17:22:00 Test Item Value Reference Range Comments PARTIAL THROMBOPLASTIN TIME (BEAKER) (test 64.3 seconds 22.5-36.0 feuo=801) POCT-GLUCOSE [id number] 17:19:00 Test Item Value Reference Range Comments POC-GLUCOSE METER (BEAKER) 169 mg/dL 70-110 TESTED AT [address] (test hmtp=0453) [place] [address] POCT-GLUCOSE [id number] 12:30:00 Test Item Value Reference Range Comments POC-GLUCOSE METER (BEAKER) 235 mg/dL 70-110 TESTED AT [address] (test lyhh=4234) [place] [address] [id number] 10:05:00 Test Item Value Reference Range Comments PARTIAL THROMBOPLASTIN TIME (BEAKER) (test 38.6 seconds 22.5-36.0 pjze=308) Prior to initiating heparinPOCT-GLUCOSE [id number] 07:40:00 Test Item Value Reference Range Comments POC-GLUCOSE METER (BEAKER) 221 mg/dL 70-110 TESTED AT [address] (test czpr=0418) [place] [address] [id number] 05:58:00 Test Item Value Reference Range Comments MAGNESIUM (BEAKER) (test tfgx=972) 2.1 mg/dL 1.6-2.6 [id number] 05:58:00 Test Item Value Reference Range Comments PHOSPHORUS (BEAKER) (test lyyz=597) 3.5 mg/dL 2.3-4.7 TROPONIN [id number] 05:15:00 Test Item Value Reference Range Comments TROPONIN I (BEAKER) (test xlcc=431) 0.31 ng/mL 0.00-0.03 Troponin I (TnI) levels [...] disease, and persistent tachyarrhythmia.LACTIC ACID, VENOUS, WHOLE [id number] 05:13:00 Test Item Value Reference Range Comments LACTATE BLOOD VENOUS (2) (BEAKER) (test 0.8 mmol/L 0.5-2.2 spoz=7018) BASIC METABOLIC [id number] 05:13:00 Test Item Value Reference Range Comments SODIUM (BEAKER) (test 136 meq/L 136-145 pspo=309) POTASSIUM (BEAKER) (test 3.4 meq/L 3.5-5.1 fbyp=536) CHLORIDE (BEAKER) (test 99 meq/L 98-107 evkv=311) CO2 (BEAKER) (test 25 meq/L 22-29 xffa=510) BLOOD UREA NITROGEN 43 mg/dL 7-21 (BEAKER) (test xzdn=212) CREATININE (BEAKER) (test 6.21 mg/dL 0.57-1.25 gkul=948) GLUCOSE RANDOM (BEAKER) 175 mg/dL 70-105 (test pkwb=265) CALCIUM (BEAKER) (test 8.6 mg/dL 8.4-10.2 vqsy=076) EGFR (BEAKER) (test 8 mL/min/1.73 sq m ESTIMATED GFR IS NOT ncoi=5391) ACCURATE CREATININE CLEARANCE IN PREDICTING GLOMERULAR FILTRATION RATE. ESTIMATED GFR IS NOT APPLICABLE FOR DIALYSIS PATIENTS. B-TYPE NATRIURETIC FACTOR (BNP)2018-11-24 05:12:00 Test Item Value Reference Range Comments B-TYPE NATRIURETIC PEPTIDE (BEAKER) (test 190 pg/mL 0-100 nigd=128) CBC W/PLT COUNT & AUTO [id number] 05:12:00 Test Item Value Reference Range Comments WHITE BLOOD CELL COUNT (BEAKER) (test cwtd=282) 12.0 K/ L 3.5-10.5 RED BLOOD CELL COUNT (BEAKER) (test yvwo=930) 2.97 M/ L 3.93-5.22 HEMOGLOBIN (BEAKER) (test bhsx=837) 8.1 GM/DL 11.2-15.7 HEMATOCRIT (BEAKER) (test qyyl=333) 27.6 % 34.1-44.9 MEAN CORPUSCULAR VOLUME (BEAKER) (test kxxl=325) 92.9 fL 79.4-94.8 MEAN CORPUSCULAR HEMOGLOBIN (BEAKER) (test 27.3 pg 25.6-32.2 ahaw=737) MEAN CORPUSCULAR HEMOGLOBIN CONC (BEAKER) (test 29.3 GM/DL 32.2-35.5 sogx=450) RED CELL DISTRIBUTION WIDTH (BEAKER) (test 15.0 % 11.7-14.4 aaba=079) PLATELET COUNT (BEAKER) (test fkju=273) 115 K/CU MM 150-450 MEAN PLATELET VOLUME (BEAKER) (test awxe=231) 10.9 fL 9.4-12.3 NUCLEATED RED BLOOD CELLS (BEAKER) (test 0 /100 WBC 0-0 upya=801) NEUTROPHILS RELATIVE PERCENT (BEAKER) (test 81 % ghlf=742) LYMPHOCYTES RELATIVE PERCENT (BEAKER) (test 6 % ilja=092) MONOCYTES RELATIVE PERCENT (BEAKER) (test 10 % sqay=550) EOSINOPHILS RELATIVE PERCENT (BEAKER) (test 3 % nwly=667) BASOPHILS RELATIVE PERCENT (BEAKER) (test 1 % ungu=265) NEUTROPHILS ABSOLUTE COUNT (BEAKER) (test 9.67 K/ L 1.56-6.13 imbh=480) LYMPHOCYTES ABSOLUTE COUNT (BEAKER) (test 0.66 K/ L 1.18-3.74 isek=094) MONOCYTES ABSOLUTE COUNT (BEAKER) (test 1.18 K/ L 0.24-0.36 spff=023) EOSINOPHILS ABSOLUTE COUNT (BEAKER) (test 0.32 K/ L 0.04-0.36 viiv=673) BASOPHILS ABSOLUTE COUNT (BEAKER) (test 0.06 K/ L 0.01-0.08 xcpv=493) IMMATURE GRANULOCYTES-RELATIVE PERCENT (BEAKER) 1 % 0-1 (test nlty=7461) POCT-GLUCOSE [id number] 22:03:00 Test Item Value Reference Range Comments POC-GLUCOSE METER (BEAKER) 187 mg/dL 70-110 TESTED AT [facility] [address] [facility] (test yuhd=3911) [facility] [address] POCT-GLUCOSE [id number] 18:08:00 Test Item Value Reference Range Comments POC-GLUCOSE METER (BEAKER) 251 mg/dL 70-110 TESTED AT [facility] [address] [facility] (test krqm=1160) [facility] [address] ANG, CENTRAL VENOUS CATH PLCMT (JUG/FEM) > 5 Y.O. WITH [id number] 16:53 :00Reason for exam:->discussed, guidewire exchange of [...] Connor Verified Date/Time: 11/23/2018 16:53:15 Reading Location: [address] Body Reading Room BLOOD CULTURE IDENTIFICATION [id number] 13:44:00 Test Item Value Reference Range Comments LISTERIA MONOCYTOGENES (test Not detected Not detected hetj=[id number]) STAPHYLOCOCCUS (test Detected Not detected rwhq=2674464) STAPHYLOCOCCUS AUREUS (test Detected Not detected First line therapy: hotu=3485278) VancomycinID consultation strongly encouraged. Staphylococcus aureus DETECTED MecA DETECTEDReference Range: Not Detected STREPTOCOCCUS (test Not detected Not detected dbsk=0547814) STREPTOCOCCUS AGALACTIAE Not detected Not detected (GROUP B) (test harq=3356603) STREPTOCOCCUS PNEUMONIAE Not detected Not detected (test yadr=7011613) STREPTOCOCCUS PYOGENES (GROUP Not detected Not detected A) (test nkgq=2246352) ACINETOBACTER BAUMANNII (test Not detected Not detected xsfb=0970370) HAEMOPHILUS INFLUENZAE (test Not detected Not detected hayo=7202954) NEISSERIA MENINGITIDIS (test Not detected Not detected nufq=9265017) ENTEROBACTERIACEAE (test Not detected Not detected zbhz=3794244) ENTEROBACTER CLOACOE COMPLEX Not detected Not detected (test iqfs=6752807) KLEBSIELLA OXYTOCA (test Not detected Not detected ahkz=7129528) KLEBSIELLA PNEUMONIAE (test Not detected Not detected xwwg=8422) PROTEUS (test mhqq=2444288) Not detected Not detected SERRATIA MARCESCENS (test Not detected Not detected agwt=0266072) SHRUTHI ALBICANS (test Not detected Not detected bmug=0997619) SHRUTHI GLABRATA (test Not detected Not detected ifla=4648780) SHRUTHI KRUSEI (test Not detected Not detected rrye=1112171) SHRUTHI PARAPSILOSIS (test Not detected Not detected kcwe=0285998) SHRUTHI TROPICALIS (test Not detected Not detected tfcd=0058339) ESCHERICHIA COLI (test Not detected Not detected uxca=8371500) METHICILLIN-RESISTANCE GENE Detected Not detected (test mkwl=5992624) VANCOMYCIN-RESISTANCE GENE Not detected (test crnd=9506872) CARBAPENEM-RESISTANCE GENE Not detected (test gnxq=7785041) ENTEROCOCCUS-BEAKER (test Not detected Not detected cfwb=3451376) PSEUDOMONAS AERUGINOSA-BEAKER Not detected Not detected (test zwjp=3275573) Other bacteria and resistance markers not targeted by this PCR panel cannot be excluded; therefore clinical correlation and follow up of serology, culture results, and other molecular studies is required. The results are not intended to be used as the sole means for clinical diagnosis or patient management decisions. This sample was tested at the [facility] using the [employer] Blood Culture ID Panel. It is FDA cleared and has been verified and approved by the [facility] for clinical use. This laboratory is CLIA-certified and College ofAmerican Pathologists (CAP)-accredited to perform high complexity testing.VANCOMYCIN LEVEL, [id number] 13:20:00 Test Item Value Reference Range Comments VANCOMYCIN RANDOM ([facility]) (test bhmk=237) 22.9 ug/mL Reference Range: No NormalsPOCT-GLUCOSE [id number] 13:00:00 Test Item Value Reference Range Comments POC-GLUCOSE METER ([facility]) 249 mg/dL 70-110 TESTED AT [facility] [address] (test ritk=6086) [facility] [address] TROPONIN [id number] 10:54:00 Test Item Value Reference Range Comments TROPONIN I (BEAKER) (test pxou=273) 0.30 ng/mL 0.00-0.03 Troponin I (TnI) levels [...] failure, acidosis, acute neurological disease, and persistent tachyarrhythmia.[id number] 10:45:00 Test Item Value Reference Range Comments LIPASE (BEAKER) (test vflo=928) 12 U/L 8-78 RAD, ABDOMEN/KUB, 1 VIEW [id number] 08:42:00Reason for exam:->abd painFINAL REPORT RAD, ABDOMEN/KUB, [...] MDReport Verified Date/Time: 11/23/2018 08:42:11 Reading Location: [facility] Radiology Reading Room COMPREHENSIVE METABOLIC [id number] 07:44:00 Test Item Value Reference Range Comments TOTAL PROTEIN (BEAKER) 6.0 gm/dL 6.0-8.3 (test whty=799) ALBUMIN (BEAKER) (test 3.0 g/dL 3.5-5.0 ewly=2345) ALKALINE PHOSPHATASE 248 U/L 40-150 (BEAKER) (test bzui=006) BILIRUBIN TOTAL (BEAKER) 0.8 mg/dL 0.2-1.2 (test nmqj=080) SODIUM (BEAKER) (test 137 meq/L 136-145 orfa=979) POTASSIUM (BEAKER) (test 3.6 meq/L 3.5-5.1 irhx=266) CHLORIDE (BEAKER) (test 101 meq/L 98-107 ojsd=668) CO2 (BEAKER) (test 28 meq/L 22-29 mdlw=797) BLOOD UREA NITROGEN 26 mg/dL 7-21 (BEAKER) (test ddyc=181) CREATININE (BEAKER) (test 4.09 mg/dL 0.57-1.25 hboj=044) GLUCOSE RANDOM (BEAKER) 201 mg/dL 70-105 (test qxbs=098) CALCIUM (BEAKER) (test 9.3 mg/dL 8.4-10.2 ehhm=641) AST (SGOT) (BEAKER) (test 39 U/L 5-34 duok=761) ALT (SGPT) (BEAKER) (test 18 U/L 6-55 gykp=082) EGFR (BEAKER) (test 13 mL/min/1.73 sq m ESTIMATED GFR IS NOT pbvy=5561) ACCURATE CREATININE CLEARANCE IN PREDICTING GLOMERULAR FILTRATION RATE. ESTIMATED GFR IS NOT APPLICABLE FOR DIALYSIS PATIENTS. BASIC METABOLIC [id number] 07:44:00 Test Item Value Reference Range Comments SODIUM (BEAKER) (test 137 meq/L 136-145 dede=146) POTASSIUM (BEAKER) (test 3.6 meq/L 3.5-5.1 iedh=517) CHLORIDE (BEAKER) (test 101 meq/L 98-107 eddj=892) CO2 (BEAKER) (test 28 meq/L 22-29 rvyw=129) BLOOD UREA NITROGEN 26 mg/dL 7-21 (BEAKER) (test aswz=563) CREATININE (BEAKER) (test 4.09 mg/dL 0.57-1.25 aizd=562) GLUCOSE RANDOM (BEAKER) 201 mg/dL 70-105 (test aqqy=859) CALCIUM (BEAKER) (test 9.3 mg/dL 8.4-10.2 xieg=659) EGFR (BEAKER) (test 13 mL/min/1.73 sq m ESTIMATED GFR IS NOT jfjk=4142) ACCURATE CREATININE CLEARANCE IN PREDICTING GLOMERULAR FILTRATION RATE. ESTIMATED GFR IS NOT APPLICABLE FOR DIALYSIS PATIENTS. [id number] 07:39:00 Test Item Value Reference Range Comments PHOSPHORUS (BEAKER) (test mbof=810) 3.0 mg/dL 2.3-4.7 [id number] 07:39:00 Test Item Value Reference Range Comments MAGNESIUM (BEAKER) (test wytr=458) 1.9 mg/dL 1.6-2.6 LACTIC ACID, VENOUS, WHOLE [id number] 07:34:00 Test Item Value Reference Range Comments LACTATE BLOOD VENOUS (2) (BEAKER) (test 0.8 mmol/L 0.5-2.2 yrqn=5236) CALCIUM, [id number] 07:28:00 Test Item Value Reference Range Comments CALCIUM IONIZED (BEAKER) (test xhad=901) 1.13 mmol/L 1.12-1.27 PH, BLOOD (BEAKER) (test scxy=8304) 7.36 CBC W/PLT COUNT & AUTO [id number] 07:28:00 Test Item Value Reference Range Comments WHITE BLOOD CELL COUNT (BEAKER) (test rocd=619) 19.0 K/ L 3.5-10.5 RED BLOOD CELL COUNT (BEAKER) (test tgjg=191) 2.89 M/ L 3.93-5.22 HEMOGLOBIN (BEAKER) (test vtht=395) 8.3 GM/DL 11.2-15.7 HEMATOCRIT (BEAKER) (test odur=743) 26.8 % 34.1-44.9 MEAN CORPUSCULAR VOLUME (BEAKER) (test dqge=969) 92.7 fL 79.4-94.8 MEAN CORPUSCULAR HEMOGLOBIN (BEAKER) (test 28.7 pg 25.6-32.2 icny=000) MEAN CORPUSCULAR HEMOGLOBIN CONC (BEAKER) (test 31.0 GM/DL 32.2-35.5 pova=799) RED CELL DISTRIBUTION WIDTH (BEAKER) (test 15.1 % 11.7-14.4 olde=196) PLATELET COUNT (BEAKER) (test ptpu=713) 101 K/CU MM 150-450 MEAN PLATELET VOLUME (BEAKER) (test uxxm=073) 10.7 fL 9.4-12.3 NUCLEATED RED BLOOD CELLS (BEAKER) (test 0 /100 WBC 0-0 gzyf=778) NEUTROPHILS RELATIVE PERCENT (BEAKER) (test 88 % shca=739) LYMPHOCYTES RELATIVE PERCENT (BEAKER) (test 3 % kqxw=369) MONOCYTES RELATIVE PERCENT (BEAKER) (test 6 % awsn=494) EOSINOPHILS RELATIVE PERCENT (BEAKER) (test 2 % pvbe=035) BASOPHILS RELATIVE PERCENT (BEAKER) (test 0 % xakv=559) NEUTROPHILS ABSOLUTE COUNT (BEAKER) (test 16.67 K/ L 1.56-6.13 woqy=637) LYMPHOCYTES ABSOLUTE COUNT (BEAKER) (test 0.59 K/ L 1.18-3.74 nygz=565) MONOCYTES ABSOLUTE COUNT (BEAKER) (test 1.07 K/ L 0.24-0.36 zwjj=498) EOSINOPHILS ABSOLUTE COUNT (BEAKER) (test 0.36 K/ L 0.04-0.36 sgpi=947) BASOPHILS ABSOLUTE COUNT (BEAKER) (test 0.07 K/ L 0.01-0.08 xkyu=977) IMMATURE GRANULOCYTES-RELATIVE PERCENT (BEAKER) 1 % 0-1 (test qayo=6163) BASIC METABOLIC [id number] 02:11:00 Test Item Value Reference Range Comments SODIUM (BEAKER) (test 136 meq/L 136-145 vhgu=119) POTASSIUM (BEAKER) (test 3.3 meq/L 3.5-5.1 bhkg=013) CHLORIDE (BEAKER) (test 101 meq/L 98-107 grvx=182) CO2 (BEAKER) (test 25 meq/L 22-29 dlmb=981) BLOOD UREA NITROGEN 34 mg/dL 7-21 (BEAKER) (test hicm=510) CREATININE (BEAKER) (test 5.32 mg/dL 0.57-1.25 zqht=024) GLUCOSE RANDOM (BEAKER) 164 mg/dL 70-105 (test uucb=911) CALCIUM (BEAKER) (test 9.4 mg/dL 8.4-10.2 tzzf=359) EGFR (BEAKER) (test 10 mL/min/1.73 sq m ESTIMATED GFR IS NOT dald=0346) ACCURATE CREATININE CLEARANCE IN PREDICTING GLOMERULAR FILTRATION RATE. ESTIMATED GFR IS NOT APPLICABLE FOR DIALYSIS PATIENTS. [id number] 02:07:00 Test Item Value Reference Range Comments PHOSPHORUS (BEAKER) (test pkbs=540) 2.7 mg/dL 2.3-4.7 [id number] 02:07:00 Test Item Value Reference Range Comments MAGNESIUM (BEAKER) (test cacd=039) 1.8 mg/dL 1.6-2.6 CALCIUM, [id number] 01:51:00 Test Item Value Reference Range Comments CALCIUM IONIZED (BEAKER) (test fqfl=862) 1.18 mmol/L 1.12-1.27 PH, BLOOD (BEAKER) (test jmfb=7759) 7.35 POCT-GLUCOSE [id number] 00:30:00 Test Item Value Reference Range Comments POC-GLUCOSE METER (BEAKER) 248 mg/dL 70-110 TESTED AT [facility] [address] [facility] (test ooza=7199) [facility] [address] TROPONIN [id number] 23:27:00 Test Item Value Reference Range Comments TROPONIN I (BEAKER) (test xpdh=355) 0.60 ng/mL 0.00-0.03 Troponin I (TnI) levels [...] disease, and persistent tachyarrhythmia.LACTIC ACID, VENOUS, WHOLE [id number] 23:13:00 Test Item Value Reference Range Comments LACTATE BLOOD VENOUS (2) (BEAKER) (test 1.3 mmol/L 0.5-2.2 chbk=4439) U/S, ABDOMINAL, [id number] 20:30:00Reason for exam:->Septic Shock, ESRD, Dysuria, Abdominal [...] Verified Date/Time: 11/22/2018 20:30: 54 Reading Location: [facility] C013 Neuro Reading Room LACTIC ACID, VENOUS, WHOLE [id number] 18:54:00 Test Item Value Reference Range Comments LACTATE BLOOD VENOUS (2) (BEAKER) (test 1.5 mmol/L 0.5-2.2 wcfx=5022) [id number] 17:26:00 Test Item Value Reference Range Comments PROCALCITONIN (BEAKER) (test bwcp=4461) > ng/mL <0.05 SEPSIS RISK (ng/mL)Low: 0.05-0.50Intermediate: 0.51-2.00High: & gt;=2.01TSH/FREE T4 IF [id number] 17:10:00 Test Item Value Reference Range Comments THYROID STIMULATING HORMONE (BEAKER) (test 2.43 uIU/mL 0.35-4.94 cobw=060) RAD, CHEST, 1 VIEW, NON [id number] 17:04:00Reason for exam:->Respiratory Insufficiency, Septic ShockShould this [...] Verified Date/Time: 11/22/2018 17:04 :54 Reading Location: [address] Reading Room (CELLAVISION MANUAL DIFF) 2018-11-22 16:57:00 Test Item Value Reference Range Comments NEUTROPHILS - REL (CELLAVISION)(BEAKER) (test 85 % xqem=7637) LYMPHOCYTES - REL (CELLAVISION)(BEAKER) (test 5 % zngr=2194) MONOCYTES - REL (CELLAVISION)(BEAKER) (test 4 % gaku=9784) BANDS - REL (CELLAVISION)(BEAKER) (test 6 % 0-10 cqdz=3269) NEUTROPHILS - ABS (CELLAVISION)(BEAKER) (test 22.87 K/ul 1.56-6.13 pdze=8154) LYMPHOCYTES - ABS (CELLAVISION)(BEAKER) (test 1.35 K/ul 1.18-3.74 suln=8617) MONOCYTES - ABS (CELLAVISION)(BEAKER) (test 1.08 K/uL 0.24-0.36 gplb=6661) BANDS - ABS (CELLAVISION)(BEAKER) (test 1.61 K/uL 0.00-0.80 sirp=8199) TOTAL COUNTED (BEAKER) (test rcqy=0888) 100 WBC MORPHOLOGY (BEAKER) (test eels=745) Normal PLT MORPHOLOGY (BEAKER) (test xvxa=848) Normal POLYCHROMATOPHILLIC RBCS(BEAKER) (test tubg=543) 3+ many ANISOCYTOSIS (BEAKER) (test utup=428) 1+ few MICROCYTES (BEAKER) (test gdfj=936) 1+ few POIKILOCYTES (BEAKER) (test onpf=566) 2+ moderate TEAR DROP CELLS (BEAKER) (test twvy=580) 1+ few JOVANNI CELLS (BEAKER) (test nljo=103) 1+ few ARTIFACT (CELLAVISION)(BEAKER) (test omjb=4589) Present HELMET CELLS (CELLAVISION)(BEAKER) (test 1+ few yjdj=5119) PLATELET CONCENTRATION (CELLAVISION)(BEAKER) Adequate (test hciw=6803) Received comment: User comments: Slide comments:TROPONIN [id number] 16:52:00 Test Item Value Reference Range Comments TROPONIN I (BEAKER) (test ceah=800) 0.85 ng/mL 0.00-0.03 Troponin I (TnI) levels [...] acidosis, acute neurological disease, and persistent tachyarrhythmia.PROTHROMBIN [id number] 16:52:00 Test Item Value Reference Range Comments PROTIME (BEAKER) (test aseq=210) 16.1 seconds 11.7-14.7 INR (BEAKER) (test ppvl=481) 1.3 <=5.9 RECOMMENDED COUMADIN/WARFARIN INR THERAPY RANGESSTANDARD DOSE: 2.0 - 3.0 Includes: PROPHYLAXIS forvenous thrombosis, systemic embolization; TREATMENT for venous thrombosis and/or pulmonary embolus.HIGH RISK: Target INR is 2.5-3.5 for patients with mechanical heart valves.B-TYPE NATRIURETIC FACTOR (BNP)2018-10 16:48:00 Test Item Value Reference Range Comments B-TYPE NATRIURETIC PEPTIDE (BEAKER) (test 353 pg/mL 0-100 mtnp=689) BASIC METABOLIC [id number] 16:48:00 Test Item Value Reference Range Comments SODIUM (BEAKER) (test 136 meq/L 136-145 xrxc=362) POTASSIUM (BEAKER) (test 2.9 meq/L 3.5-5.1 psuc=305) CHLORIDE (BEAKER) (test 98 meq/L 98-107 vocx=268) CO2 (BEAKER) (test 24 meq/L 22-29 ejex=473) BLOOD UREA NITROGEN 47 mg/dL 7-21 (BEAKER) (test vfwd=983) CREATININE (BEAKER) (test 8.07 mg/dL 0.57-1.25 nzae=858) GLUCOSE RANDOM (BEAKER) 207 mg/dL 70-105 (test fpmn=571) CALCIUM (BEAKER) (test 9.5 mg/dL 8.4-10.2 vqqg=029) EGFR (BEAKER) (test 6 mL/min/1.73 sq m ESTIMATED GFR IS NOT lqcd=3957) ACCURATE CREATININE CLEARANCE IN PREDICTING GLOMERULAR FILTRATION RATE. ESTIMATED GFR IS NOT APPLICABLE FOR DIALYSIS PATIENTS. BLOOD GAS, [id number] 16:44:00 Test Item Value Reference Range Comments PH ARTERIAL (BEAKER) (test blfe=500) 7.37 7.35-7.45 PCO2 ARTERIAL (BEAKER) (test dtyf=629) 42 mmHg 35-45 PO2 ARTERIAL (BEAKER) (test zjbk=272) 123 mmHg 80-90 O2 SATURATION ARTERIAL (BEAKER) (test bjpr=343) 98.3 % 96.0-97.0 HCO3 ARTERIAL (BEAKER) (test gzle=490) 24 mmol/L 21-29 BASE EXCESS ARTERIAL (BEAKER) (test gcjd=426) -1.7 mmol/L -2.0-3.0 PATIENT TEMPERATURE (BEAKER) (test lbkz=2972) 37.0 C FIO2 (BEAKER) (test omdf=7484) 28.0 % [id number] 16:44:00 Test Item Value Reference Range Comments PHOSPHORUS (BEAKER) (test rkyg=032) 4.1 mg/dL 2.3-4.7 [id number] 16:44:00 Test Item Value Reference Range Comments MAGNESIUM (BEAKER) (test jlok=154) 1.9 mg/dL 1.6-2.6 HEPATIC FUNCTION [id number] 16:44:00 Test Item Value Reference Range Comments TOTAL PROTEIN (BEAKER) (test asmv=830) 6.9 gm/dL 6.0-8.3 ALBUMIN (BEAKER) (test tcmd=1702) 3.5 g/dL 3.5-5.0 BILIRUBIN TOTAL (BEAKER) (test vmuo=788) 0.9 mg/dL 0.2-1.2 BILIRUBIN DIRECT (BEAKER) (test xqmi=522) 0.6 mg/dL 0.1-0.5 ALKALINE PHOSPHATASE (BEAKER) (test jmfq=344) 245 U/L 40-150 AST (SGOT) (BEAKER) (test ejya=179) 51 U/L 5-34 ALT (SGPT) (BEAKER) (test cemi=305) 18 U/L 6-55 VANCOMYCIN LEVEL, [id number] 16:41:00 Test Item Value Reference Range Comments VANCOMYCIN RANDOM (BEAKER) (test quzk=755) 18.3 ug/mL Reference Range: No NormalsOXYGEN SATURATION, [id number] 16:40:00 Test Item Value Reference Range Comments O2 SATURATION (MEASURED) (BEAKER) (test zxiq=7581) 62.7 % If patient has internal jugular ( IJ) or subclavian central line or PICC line. Draw from distal port. Label as central venous oxygen.LACTIC ACID, VENOUS, WHOLE [id number] 16:38:00 Test Item Value Reference Range Comments LACTATE BLOOD VENOUS (2) (BEAKER) (test 1.2 mmol/L 0.5-2.2 awyi=7776) CBC W/PLT COUNT & AUTO [id number] 16:35:00 Test Item Value Reference Range Comments WHITE BLOOD CELL COUNT (BEAKER) (test oqlb=850) 26.9 K/ L 3.5-10.5 RED BLOOD CELL COUNT (BEAKER) (test rzjf=914) 3.17 M/ L 3.93-5.22 HEMOGLOBIN (BEAKER) (test jerj=784) 8.8 GM/DL 11.2-15.7 HEMATOCRIT (BEAKER) (test vlfk=333) 29.6 % 34.1-44.9 MEAN CORPUSCULAR VOLUME (BEAKER) (test wxqe=927) 93.4 fL 79.4-94.8 MEAN CORPUSCULAR HEMOGLOBIN (BEAKER) (test 27.8 pg 25.6-32.2 ehrk=651) MEAN CORPUSCULAR HEMOGLOBIN CONC (BEAKER) (test 29.7 GM/DL 32.2-35.5 gfqa=132) RED CELL DISTRIBUTION WIDTH (BEAKER) (test 15.3 % 11.7-14.4 uglm=856) PLATELET COUNT (BEAKER) (test nqbp=443) 149 K/CU MM 150-450 MEAN PLATELET VOLUME (BEAKER) (test fvay=910) 10.6 fL 9.4-12.3 NUCLEATED RED BLOOD CELLS (BEAKER) (test 0 /100 WBC 0-0 ldwe=781) NEUTROPHILS RELATIVE PERCENT (BEAKER) (test 88 % krgg=152) LYMPHOCYTES RELATIVE PERCENT (BEAKER) (test 4 % qfpm=593) MONOCYTES RELATIVE PERCENT (BEAKER) (test 6 % ztnr=690) EOSINOPHILS RELATIVE PERCENT (BEAKER) (test 1 % faxt=429) BASOPHILS RELATIVE PERCENT (BEAKER) (test 0 % kyhd=905) NEUTROPHILS ABSOLUTE COUNT (BEAKER) (test 23.68 K/ L 1.56-6.13 ygbm=769) LYMPHOCYTES ABSOLUTE COUNT (BEAKER) (test 0.94 K/ L 1.18-3.74 klno=518) MONOCYTES ABSOLUTE COUNT (BEAKER) (test 1.53 K/ L 0.24-0.36 hkgn=947) EOSINOPHILS ABSOLUTE COUNT (BEAKER) (test 0.32 K/ L 0.04-0.36 rstu=678) BASOPHILS ABSOLUTE COUNT (BEAKER) (test 0.08 K/ L 0.01-0.08 vzqi=546) IMMATURE GRANULOCYTES-RELATIVE PERCENT (BEAKER) 1 % 0-1 (test hypw=2709) HEP B SURFACE [id number] 15:58:00 Test Item Value Reference Range Comments [...] Negative (qualifier Negative value) CBC WITH AUTO [id number] 07:16:00 Test Item Value Reference Range Comments [...] 1.0-3.0 IG% (test code=IG%) 1.4 % 0.0-0.4 [id number] 07:13:00 Test Item Value Reference Range Comments [...] mL/min/1.73m\\S\\2 EGFR if Non- 11 Estimated Glomerular [place] (test mL/min/1.73m\\S\\2 Filtration Rate (eGFR) code=EGFRNA) Reference [...] management of chronic kidney failure. TYPE & [id number] 15:35:00 Test Item Value Reference Range Comments ABO Blood Type (test code=ABO) A Rh (test code=RH) Negative Antibody Screen (test code=ABSCR) Negative Negative ARMBAND# (test code=ARMBAND) FF 84 337 [id number] 13:49:00 Test Item Value Reference Range Comments [...] mL/min/1.73m\\S\\2 EGFR if Non- 10 Estimated Glomerular [place] (test mL/min/1.73m\\S\\2 Filtration Rate (eGFR) code=EGFRNA) Reference [...] management of chronic kidney failure. er4PT AND [id number] 14:13:00 Test Item Value Reference Range Comments Protime (test code=PT) 9.8 seconds 9.0-11.9 INR (test code=INR) 1.0 0.9-1.1 INR results are intended ONLY to monitor Oral Anticoagulant therapy in stablized patients. The INR Therapeutic Range is 2.0 - 3.0 Patients with a mechanical heart, the INR Range is 2.5 - 3.5 [id number] 14:13:00 Test Item Value Reference Range Comments aPTT (test code=PTT) 28.2 seconds 23.0-33.0 CBC WITH AUTO [id number] 13:39:00 Test Item Value Reference Range Comments [...] IG% (test code=IG%) 1.7 % 0.0-0.4 AUTO [id number] 13:25:00 Test Item Value Reference Range Comments [...] mL/min/1.73m\\S\\2 EGFR if Non- 10 Estimated Glomerular [place] (test mL/min/1.73m\\S\\2 Filtration Rate (eGFR) code=EGFRNA) Reference [...] management of chronic kidney failure. TYPE & [id number] 12:40:00 Test Item Value Reference Range Comments ABO Blood Type (test code=ABO) A Rh (test code=RH) Negative Antibody Screen (test code=ABSCR) Negative Negative ARMBAND# (test code=ARMBAND) FF 12 500 [id number] 06:38:00 Test Item Value Reference Range Comments [...] mL/min/1.73m\\S\\2 EGFR if Non- 12 Estimated Glomerular [place] (test mL/min/1.73m\\S\\2 Filtration Rate (eGFR) code=EGFRNA) Reference [...] of chronic kidney failure. CBC WITH AUTO [id number] 06:35:00 Test Item Value Reference Range Comments [...] (test code=IG%) 0.4 % 0.0-0.4 CBC AUTO [id number] 06:33:00 Test Item Value Reference Range Comments aPTT (test code=PTT) 29.4 seconds 23.0-33.0 PT AND [id number] 06:33:00 Test Item Value Reference Range Comments Protime (test code=PT) 10.1 seconds 9.0-11.9 INR (test code=INR) 1.0 0.9-1.1 INR results are intended ONLY to monitor Oral Anticoagulant therapy in stablized patients. The INR Therapeutic Range is 2.0 - 3.0 Patients with a mechanical heart, the INR Range is 2.5 - 3.5 [id number] 10:05:00 Test Item Value Reference Range Comments [...] mL/min/1.73m\\S\\2 EGFR if Non- 15 Estimated Glomerular [place] (test mL/min/1.73m\\S\\2 Filtration Rate (eGFR) code=EGFRNA) Reference [...] PLATELET CLUMPING. THIS IS A HEMOGRAM ONLYRBC, [id number] 03:00:00 Test Item Value Reference Range Comments RBC Unit (test code=RBCUNIT) Released for Transfusion RBC, [id number] 03:00:00 Test Item Value Reference Range Comments RBC Unit (test code=RBCUNIT) Released for Transfusion CROSSMATCH x 12:53:00Completed: Compatible Ready to TransfuseTYPE & amp; [id number] 12:52:00 Test Item Value Reference Range Comments ABO Blood Type (test code=ABO) A Rh (test code=RH) Negative Antibody Screen (test code=ABSCR) Negative Negative ARMBAND# (test code=ARMBAND) FF 12 500 HEP B SURFACE [id number] 07:50:00 Test Item Value Reference Range Comments [...] Negative (qualifier Negative value) CBC WITH AUTO [id number] 07:17:00 Test Item Value Reference Range Comments [...] called to Gary DIAZ RN. K3 by [id number] on 08/10/2017 07:16 AM. Results were readback by Claudine DE LA CRUZ RN..[id number] 07:17:00 Test Item Value Reference Range Comments [...] mL/min/1.73m\\S\\2 EGFR if Non- 13 Estimated Glomerular [place] (test mL/min/1.73m\\S\\2 Filtration Rate (eGFR) code=EGFRNA) Reference Intervals Decision Points for 18 years and older and average body mass: >=60 Does not exclude kidney disease. 30 - 59 Suggests moderate chronic kidney disease and indicates the need for further investigation including assessment of proteinuria and cardiovascular factors. < 30 Usually indicates a need for referral for assessment and management of chronic kidney failure. [id number] 19:07:00 Test Item Value Reference Range Comments aPTT (test code=PTT) 29.9 seconds 23.0-33.0 PT AND [id number] 19:07:00 Test Item Value Reference Range Comments Protime (test code=PT) 10.1 seconds 9.0-11.9 INR (test code=INR) 1.0 0.9-1.1 INR results are intended ONLY to monitor Oral Anticoagulant therapy in stablized patients. The INR Therapeutic Range is 2.0 - 3.0 Patients with a mechanical heart, the INR Range is 2.5 - 3.5 [id number] 18:35:00 Test Item Value Reference Range Comments [...] mL/min/1.73m\\S\\2 EGFR if Non- 13 Estimated Glomerular [place] (test mL/min/1.73m\\S\\2 Filtration Rate (eGFR) code=EGFRNA) Reference [...] of chronic kidney failure. CBC WITH AUTO [id number] 18:19:00 Test Item Value Reference Range Comments [...] IG% (test code=IG%) 0.4 % 0.0-0.4 AUTO [id number] 17:15:00 Test Item Value Reference Range Comments [...] (test code=BGCTHB) 8.3 gm/dl 11.5-17.4 O2Hb (test code=DDDC8IW) 94.9 % 95.0-99.0 COHb (test code=BGFCOHB) <2.8 [...] Notified (test code=BGTMNOTIFIED) 15:59 O2 Device (test code=SQE4TTJ8) Room Air Instrument ID (test code=BGINSTRID) [id number] Reported By (test code=BGREPORTEDBY) ROSALINO HUFF [id number] 09:50:00 Test Item Value Reference Range Comments [...] mL/min/1.73m\\S\\2 EGFR if Non- 14 Estimated Glomerular [place] (test mL/min/1.73m\\S\\2 Filtration Rate (eGFR) code=EGFRNA) Reference [...] values were called to Tracy AGARWAL by [id number] on 08/07/2017 09:41 AM. Results were read back by Tracy AGARWAL.CULTURE, [id number] 07:53:00Specimen : AbscessCollected: 07/26/2017 20:47 Status: Final [...] 09:58: Culture Result (Prelim) (Prelim) Many DiptheroidsCULTURE, [id number] 06:50:00To start 15mins after 1st cultureSpecimen: BloodCollected: 07/24/2017 00:38 Status: Final Last Updated: 07/29/2017 06: 49 (1) To start 15mins after 1st culture Culture Result (Final) (Final ) No Growth After 5 DaysCULTURE, [id number] 06:50:00Specimen: BloodCollected: 07/24/2017 00:18 Status: Final Last Updated: 07/29/2017 06: 49 Culture Result (Final) (Final) No Growth After 5 DaysED RAPID [id number] 04:24:00 Test Item Value Reference Range Comments CKMB (BIOSITE) (test code=BIOCKMB) <1.0 ng/ml 0.0-2.5 TROPONIN-I (BIOSITE) (test code=BIOTROP) <0.050 ng/ml 0.000-0.050 MYOGLOBIN (BIOSITE) (test code=BIOMYO) 166.0 ng/ml 0.0-170.0 SERIAL INSTRUMENT NUMBER (test code=SERIAL) [id number] ED RAPID [id number] 01:05:00 Test Item Value Reference Range Comments CKMB (BIOSITE) (test code=BIOCKMB) <1.0 ng/ml 0.0-2.5 TROPONIN-I (BIOSITE) (test code=BIOTROP) <0.050 ng/ml 0.000-0.050 MYOGLOBIN (BIOSITE) (test code=BIOMYO) 203.0 ng/ml 0.0-170.0 SERIAL INSTRUMENT NUMBER (test code=SERIAL) [id number] 01:02:00 Test Item Value Reference Range Comments [...] mL/min/1.73m\\S\\2 EGFR if Non- 16 Estimated Glomerular [place] (test mL/min/1.73m\\S\\2 Filtration Rate (eGFR) code=EGFRNA) Reference [...] chronic kidney failure. ER 8CBC WITH AUTO [id number] 00:58:00 Test Item Value Reference Range Comments [...] IG% (test code=IG%) 0.5 % 0.0-0.4 ER [id number] 13:31:00 Test Item Value Reference Range Comments [...] mL/min/1.73m\\S\\2 EGFR if Non- 11 Estimated Glomerular [place] (test mL/min/1.73m\\S\\2 Filtration Rate (eGFR) code=EGFRNA) Reference [...] of chronic kidney failure. CBC WITH AUTO [id number] 13:08:00 Test Item Value Reference Range Comments [...] 0 /100WBC 0-2 code=NRBC_AUTO) HEP B SURFACE [id number] 15:00:00 Test Item Value Reference Range Comments [...] to HBV infection. HEPATITIS B CORE AB, [id number] 10:03:00 Test Item Value Reference Range Comments HEPATITIS B CORE AB TOTAL (test code=HEPBCORE) 2.97 Negative [id number] 09:16:00 Test Item Value Reference Range Comments [...] mL/min/1.73m\\S\\2 EGFR if Non- 13 Estimated Glomerular [place] (test mL/min/1.73m\\S\\2 Filtration Rate (eGFR) code=EGFRNA) Reference [...] management of chronic kidney failure. ERYTHROCYTE SED [id number] 09:16:00 Test Item Value Reference Range Comments [...] 50-999 years old=0-25 mm/hr CBC WITH AUTO [id number] 08:46:00 Test Item Value Reference Range Comments [...] IG% (test code=IG%) 0.7 % 0.0-0.4 LIPASE, [id number] 18:05:00 Test Item Value Reference Range Comments Lipase (test code=LIPA) 42 U/L 8-223 AMYLASE, [id number] 18:05:00 Test Item Value Reference Range Comments Amylase (test code=AMYL) 53 U/L 12-103 C-REACTIVE [id number] 17:24:00 Test Item Value Reference Range Comments C REACTIVE PROTEIN (test code=CRP) 0.7 ng/ml 0.0-0.9 [id number] 09:07:00 Test Item Value Reference Range Comments [...] mL/min/1.73m\\S\\2 EGFR if Non- 10 Estimated Glomerular [place] (test mL/min/1.73m\\S\\2 Filtration Rate (eGFR) code=EGFRNA) Reference [...] of chronic kidney failure. CBC WITH AUTO [id number] 08:35:00 Test Item Value Reference Range Comments [...] % 0.0-0.4 CBC AUTO diffCBC WITH AUTO [id number] 05:58:00 Test Item Value Reference Range Comments [...] 1.0-3.0 IG% (test code=IG%) 0.8 % 0.0-0.4 [id number] 05:41:00 Test Item Value Reference Range Comments [...] mL/min/1.73m\\S\\2 EGFR if Non- 12 Estimated Glomerular [place] (test mL/min/1.73m\\S\\2 Filtration Rate (eGFR) code=EGFRNA) Reference Intervals Decision Points for 18 years and older and average body mass: >=60 Does not exclude kidney disease. 30 - 59 Suggests moderate chronic kidney disease and indicates the need for further investigation including assessment of proteinuria and cardiovascular factors. < 30 Usually indicates a need for referral for assessment and management of chronic kidney failure. [id number] 05:41:00 Test Item Value Reference Range Comments Magnesium (test code=MG) 2.0 mg/dl 1.6-2.3 HEP B SURFACE [id number] 08:16:00 Test Item Value Reference Range Comments [...] (test code=HBSAG) Negative (qualifier Negative value) GLYCOSALATED [id number] 01:37:00 Test Item Value Reference Range Comments [...] ARE NOT INTERCHANGEABLE BETWEEN METHODS. 12-06-2006 FREE [id number] 01:14:00 Test Item Value Reference Range Comments Free T4 (test code=FT4) 1.24 ng/dl 0.78-2.19 CORONARY [id number] 00:54:00 Test Item Value Reference Range Comments [...] Average vLDL (test code=VLDL) 29 mg/dl 20-50 [id number] 00:52:00 Test Item Value Reference Range Comments Magnesium (test code=MG) 2.0 mg/dl 1.6-2.3 [id number] 00:52:00 Test Item Value Reference Range Comments [...] mL/min/1.73m\\S\\2 EGFR if Non- 17 Estimated Glomerular [place] (test mL/min/1.73m\\S\\2 Filtration Rate (eGFR) code=EGFRNA) Reference [...]
[2019-04-29 18:18] LABS: ALT/SGPT 48 U/L (12-78); AST/SGOT 32 U/L (15-37); Albumin 3.7 g/dL (3.4-5.0); Alkaline Phosphatase 205 U/L (45-117); BUN Blood Urea Nitrogen 72 mg/dL (7-18); Bicarbonate 24 mmol/L (21-32); Bilirubin Direct < 0.1 mg/dL (0-0.2); Bilirubin Total 0.3 mg/dL (0.2-1.0); Glucose Level 92 mg/dL (74-106); Lipase 150 U/L (73-393); Protein, Total 7.9 g/dL (6.4-8.2); Sodium Level 141 mmol/L (136-145)
[2019-04-29 18:25] LABS: Absolute Lymphocytes (CBC) 0.9 K/uL (0.7-4.9); Absolute Neutrophil 9.2 K/uL (1.8-8.0); Basophils % 0.3 % (0-1.3); Eosinophils % 2.6 % (0-4.4); Hematocrit 36.9 % (36.0-45.0); Lymphocytes % 7.9 % (15.3-44.8); MPV 9.4 fL (7.6-11.3); Monocytes % 8.5 % (3.3-12.3); RBC Red Blood Cell Count 4.04 M/uL (3.86-4.86)
--- NOTE | 2019-04-29 19:57 | EDPHYS ---
Physician Documentation [facility] Name: Alysa Mayes Age: 64 yrs Sex: Female : 1955 Arrival Date: 04/29/2019 Time: 15:40 Bed 26 Private MD: Unknown, Unknown ED Physician Kevon Tracy HPI: 04/29 18:04 This 64 yrs old Black Female presents to ER via Ambulatory with complaints of Dialysis nh Catheter Problem. 18:04 The patient has a dialysis catheter in the left subclavian area. Onset: The nh symptoms/episode began/occurred this morning. [facility] Dialysis schedule: . Associated signs and symptoms: Pertinent negatives: fever, swelling, redness in area, bleeding at site. The patient has not experienced similar symptoms in the past. The patient has not recently seen a physician. Patients dialysis port came out. Patient asymptomatic. Historical: - Allergies: 15:47 amlodipine; sv 15:47 Amoxicillin; sv 15:47 PENICILLINS; sv - Home Meds: 20:58 apixaban Oral [Active]; Arginaid 4.5 gram-156 mg/9.2 gram Oral pwpk daily [Active]; rv ascorbic acid (vitamin C) 500 mg tab daily [Active]; aspirin 81 mg Oral chew 1 tab once daily [Active]; atorvastatin 40 mg Oral tab 1 tab once daily [Active]; Fosrenol 1,000 mg Oral pwpk 1 packet twice a day [Active]; guaifenesin 400 mg Oral tab every 4 hours [Active]; insulin detemir subcutaneous [Active]; levofloxacin 250 mg Oral tab one time a day archie other day for foot ulcer after hemodialysis [Active]; levothyroxine 50 mcg tab 1 tab once daily [Active]; Lyrica Oral [Active]; Lyrica Oral 150mg once a day [Active]; metoprolol succinate 50 mg Oral Tb24 1 tab once daily [Active]; nepafenac ophthalmic 1 drop once daily [Active]; Mccormick 10-325 mg Oral tab every 6 hours for Pain [Active]; Linda-Ryan Oral daily [Active]; Sensipar 30 mg Oral tab 2 tabs once daily [Active]; Tums 300 mg (750 mg) Oral chew before meals [Active]; zinc sulfate 220 (50) mg Oral cap daily [Active]; - PMHx: 15:47 Anemia; Diabetes - NIDDM; COPD; CHF; Depression; Dialysis; Gout; Hyperlipidemia; sv Hypertension; Hypothyroidism; pressure ulcers; - PSHx: 15:47 dialysis port; sv - Immunization history:: Adult Immunizations up to date. - Social history:: Smoking status: Patient/guardian denies using tobacco. - Ebola Screening: : No symptoms or risks identified at this time. ROS: 18:04 Constitutional: Negative for fever, chills, and weight loss, Eyes: Negative for injury, nh pain, redness, and discharge, ENT: Negative for injury, pain, and discharge, Neck: Negative for injury, pain, and swelling, Cardiovascular: Negative for chest pain, palpitations, and edema, Respiratory: Negative for shortness of breath, cough, wheezing, and pleuritic chest pain, Abdomen/GI: Negative for abdominal pain, nausea, vomiting, diarrhea, and constipation, Back: Negative for injury and pain, : Negative for injury, bleeding, discharge, and swelling, MS/Extremity: Negative for injury and deformity, Skin: Negative for injury, rash, and discoloration, Neuro: Negative for headache, weakness, numbness, tingling, and seizure. Exam: 18:04 Constitutional: This is a well developed, well nourished patient who is awake, alert, nh and in no acute distress. Head/Face: Normocephalic, atraumatic. Eyes: Pupils equal round and reactive to light, extra-ocular motions intact. Lids and lashes normal. Conjunctiva and sclera are non-icteric and not injected. Cornea within normal limits. Periorbital areas with no swelling, redness, or edema. ENT: Nares patent. No nasal discharge, no septal abnormalities noted. Tympanic membranes are normal and external auditory canals are clear. Oropharynx with no redness, swelling, or masses, exudates, or evidence of obstruction, uvula midline. Mucous membranes moist. Neck: Trachea midline, no thyromegaly or masses palpated, and no cervical lymphadenopathy. Supple, full range of motion without nuchal rigidity, or vertebral point tenderness. No Meningismus. Chest/axilla: Normal chest wall appearance and motion. Nontender with no deformity. No lesions are appreciated. Cardiovascular: Regular rate and rhythm with a normal S1 and S2. No gallops, murmurs, or rubs. Normal PMI, no JVD. No pulse deficits. Respiratory: Lungs have equal breath sounds bilaterally, clear to auscultation and percussion. No rales, rhonchi or wheezes noted. No increased work of breathing, no retractions or nasal flaring. Abdomen/GI: Soft, non-tender, with normal bowel sounds. No distension or tympany. No guarding or rebound. No evidence of tenderness throughout. Back: No spinal tenderness. No costovertebral tenderness. Full range of motion. Skin: Warm, dry with normal turgor. Normal color with no rashes, no lesions, and no evidence of cellulitis. MS/ Extremity: Pulses equal, no cyanosis. Neurovascular intact. Full, normal range of motion. Neuro: Awake and alert, GCS 15, oriented to person, place, time, and situation. Cranial nerves II-XII grossly intact. Motor strength 5/5 in all extremities. Sensory grossly intact. Cerebellar exam normal. Normal gait. Vital Signs: 15:47 BP 106 / 56; Pulse 86; Resp 16; Temp 98.4; Pulse Ox 99% ; Weight 81.65 kg; Pain 2/10; sv 17:50 BP 141 / 79; Pulse 88; Resp 17; Temp 98.2; Pulse Ox 97% ; rv 18:30 BP 141 / 80; Pulse 96; Resp 19; Pulse Ox 94% ; rv 19:00 BP 144 / 81; Pulse 97; Resp 17; Pulse Ox 96% ; rv 19:30 BP 122 / 78; Pulse 98; Resp 17; Temp 98.3; Pulse Ox 99% ; rv 20:00 BP 145 / 75; Pulse 97; Resp 16; Pulse Ox 95% ; rv 20:45 BP 138 / 77; Pulse 94; Resp 17; Temp 99; Pulse Ox 98% ; rv MDM: 16:08 Patient medically screened. ri 18:04 Data reviewed: vital signs, nurses notes, lab test result(s), I have discussed the ri patient's presentation/case with the attending Emergency Department Physician; and as a result, I will discharge patient. Counseling: I had a detailed discussion with the patient and/or guardian regarding: the historical points, exam findings, and any diagnostic results supporting the discharge/admit diagnosis, the need for outpatient follow up, to return to the emergency department if symptoms worsen or persist or if there are any questions or concerns that arise at home. 20:05 ED course: I discussed the patient with Dr. Parmar whom will arrange outpatient m catheter placement on Wednesday. . 04/29 16:08 Order name: Basic Metabolic Panel; Complete Time: 18:37 ri 04/29 16:08 Order name: CBC with Diff ri 04/29 16:08 Order name: Creatinine for Radiology; Complete Time: 18:38 ri 04/29 16:08 Order name: Hepatic Function; Complete Time: 18:38 ri 04/29 16:08 Order name: Lipase; Complete Time: 18:38 ri 04/29 21:32 Order name: CBC Smear Scan EDCT 04/29 16:08 Order name: IV Saline Lock; Complete Time: 17:55 ri 04/29 16:08 Order name: Labs collected and sent; Complete Time: 17:55 ri Administered Medications: 20:16 Drug: Tylenol 1000 mg Route: PO; rv 21:03 Follow up: Response: No adverse reaction; Pain is decreased rv Disposition: 04/29/19 19:57 Discharged to Home. Impression: Displacement of vascular dialysis catheter. - Condition is Stable. - Medication Reconciliation Form, Thank You Letter, Antibiotic Education, Prescription Opioid Use form. - Follow up: Private Physician; When: 2 - 3 days; Reason: Recheck today's complaints, Continuance of care, Re-evaluation by your physician. Addendum: 05/01/2019 06:27 Co-signature as Attending Physician, Kevon Tracy MD I agree with the assessment and k dr plan of care. Signatures: Dispatcher [employer] Mari Lebron, RN RN Kevon Tracy MD MD kdr Mickail, Joel, PA PA m Cherise Larkin, MODEL MAKING SUPERVISOR MODEL MAKING SUPERVISOR ri Kane Bee, RN RN rv Corrections: (The following items were deleted from the chart) 04/29 22:31 19:57 04/29/2019 19:57 Discharged to Home. Impression: Displacement of vascular rv dialysis catheter. Condition is Stable. Forms are Medication Reconciliation Form, Thank You Letter, Antibiotic Education, Prescription Opioid Use. Follow up: Private Physician; When: 2 - 3 days; Reason: Recheck today's complaints, Continuance of care, Re-evaluation by your physician. [email or web address]
--- NOTE | 2019-04-29 19:57 | ER ---
Nurse's Notes [facility] Name: Alysa Mayes Age: 64 yrs Sex: Female : 1955 Arrival Date: 04/29/2019 Time: 15:40 Bed 26 Private MD: Unknown, Unknown Diagnosis: Displacement of vascular dialysis catheter Presentation: 04/29 15:44 Presenting complaint: Patient states: dropped off by [facility] for her dialysis sv catheter coming out. Transition of care: patient was not received from another setting of care. Onset of symptoms was April 29, 2019. Initial Sepsis Screen: Does the patient meet any 2 criteria? No. Patient's initial sepsis screen is negative. Does the patient have a suspected source of infection? No. Patient's initial sepsis screen is negative. Care prior to arrival: None. 15:44 Method Of Arrival: Ambulatory sv 15:44 Acuity: LESLEE 3 sv 17:49 Risk Assessment: Do you want to hurt yourself or someone else? Patient reports no rv desire to harm self or others. Historical: - Allergies: 15:47 amlodipine; sv 15:47 Amoxicillin; sv 15:47 PENICILLINS; sv - Home Meds: 20:58 apixaban Oral [Active]; Arginaid 4.5 gram-156 mg/9.2 gram Oral pwpk daily [Active]; rv ascorbic acid (vitamin C) 500 mg tab daily [Active]; aspirin 81 mg Oral chew 1 tab once daily [Active]; atorvastatin 40 mg Oral tab 1 tab once daily [Active]; Fosrenol 1,000 mg Oral pwpk 1 packet twice a day [Active]; guaifenesin 400 mg Oral tab every 4 hours [Active]; insulin detemir subcutaneous [Active]; levofloxacin 250 mg Oral tab one time a day archie other day for foot ulcer after hemodialysis [Active]; levothyroxine 50 mcg tab 1 tab once daily [Active]; Lyrica Oral [Active]; Lyrica Oral 150mg once a day [Active]; metoprolol succinate 50 mg Oral Tb24 1 tab once daily [Active]; nepafenac ophthalmic 1 drop once daily [Active]; [place] 10-325 mg Oral tab every 6 hours for Pain [Active]; Linda-Ryan Oral daily [Active]; Sensipar 30 mg Oral tab 2 tabs once daily [Active]; Tums 300 mg (750 mg) Oral chew before meals [Active]; zinc sulfate 220 (50) mg Oral cap daily [Active]; - PMHx: 15:47 Anemia; Diabetes - NIDDM; COPD; CHF; Depression; Dialysis; Gout; Hyperlipidemia; sv Hypertension; Hypothyroidism; pressure ulcers; - PSHx: 15:47 dialysis port; sv - Immunization history:: Adult Immunizations up to date. - Social history:: Smoking status: Patient/guardian denies using tobacco. - Ebola Screening: : No symptoms or risks identified at this time. Screenin:49 Abuse screen: Denies threats or abuse. Denies injuries from another. Nutritional rv screening: No deficits noted. Tuberculosis screening: No symptoms or risk factors identified. Fall Risk None identified. Assessment: 17:15 General: Appears in no apparent distress. comfortable, Behavior is calm, cooperative. rv 17:15 Pain: Complains of pain in back. Neuro: Level of Consciousness is awake, alert, obeys rv commands, Oriented to person, place, time, situation. Cardiovascular: Patient's skin is warm and dry. Respiratory: Airway is patent. GI: No signs and/or symptoms were reported involving the gastrointestinal system. : No signs and/or symptoms were reported regarding the genitourinary system. EENT: No signs and/or symptoms were reported regarding the EENT system. Derm: Wound noted anterior aspect of left upper chest Wound is recent dialysis access/port. Musculoskeletal: No signs and/or symptoms reported regarding the musculoskeletal system. 20:00 Reassessment: Patient appears in no apparent distress at this time. Patient and/or rv family updated on plan of care and expected duration. Pain level reassessed. Patient is alert, oriented x 3, equal unlabored respirations, skin warm/dry/pink. awaiting disposition from GINA Ling. 20:00 Reassessment: patient talked to the patient with plan of care and schedule for rv replacing dialysis access. for discharge. called report to [facility]. awaiting transport from them. Vital Signs: 15:47 BP 106 / 56; Pulse 86; Resp 16; Temp 98.4; Pulse Ox 99% ; Weight 81.65 kg; Pain 2/10; sv 17:50 BP 141 / 79; Pulse 88; Resp 17; Temp 98.2; Pulse Ox 97% ; rv 18:30 BP 141 / 80; Pulse 96; Resp 19; Pulse Ox 94% ; rv 19:00 BP 144 / 81; Pulse 97; Resp 17; Pulse Ox 96% ; rv 19:30 BP 122 / 78; Pulse 98; Resp 17; Temp 98.3; Pulse Ox 99% ; rv 20:00 BP 145 / 75; Pulse 97; Resp 16; Pulse Ox 95% ; rv 20:45 BP 138 / 77; Pulse 94; Resp 17; Temp 99; Pulse Ox 98% ; rv ED Course: 15:40 Patient arrived in ED. as 15:41 Unknown, Unknown is Private Physician. as 15:46 Triage completed. sv 15:48 Arm band placed on. sv 16:00 Kane Bee RN is Primary Nurse. rv 16:08 Cherise Larkin FNP is PHCP. nh 16:08 Kevon Tracy MD is Attending Physician. nh 17:49 Patient has correct armband on for positive identification. Bed in low position. Call rv light in reach. Side rails up X 1. Pulse ox on. NIBP on. 17:54 Inserted saline lock: 18 gauge in right EJ, using aseptic technique. ,using aseptic rv technique. by TIM Rogers Blood collected. Missed attempt(s): 22 gauge in right shoulder. 18:33 [facility] by Cherise Larkin FNP [facility] 18:33 Sushil Moura PA [facility] 21:04 No provider procedures requiring assistance completed. IV discontinued, intact, rv bleeding controlled, No redness/swelling at site. Pressure dressing applied. Administered Medications: 20:16 Drug: Tylenol 1000 mg Route: PO; rv 21:03 Follow up: Response: No adverse reaction; Pain is decreased rv Outcome: 19:57 Discharge ordered by . [facility] 21:04 Discharged to [facility] rv 21:04 Condition: good 21:04 Discharge instructions given to patient, Instructed on discharge instructions, follow up and referral plans. Demonstrated understanding of instructions, follow-up care. 22:31 Patient left the ED. rv Signatures: Mari Perez RN RN Sushil Moura PA PA [facility] Cherise Larkin FNP [facility] Gris Wilcox as Rohit, Kane, RN RN rv
[2019-04-29] MEDS ORDERED: ACETAMINOPHEN 500 MG TAB ONE (20:26)
[2019-04-29 21:31] LABS: Anisocytosis 1+; Blood Morphology Comment NOTED (NOT SEEN); Platelet Estimate ADEQ; Urine White Blood Cell Casts OK
[2019-04-30 01:31] VITALS: BP 138/77; TEMP 99; O2SAT 98
== END 2019-04-29 22:31 | disposition home or self-care (01) ==
LOC: ER 15:39
DX: T82.898A Other specified complication of vascular prosthetic devices, implants and grafts, initial encounter (principal); E11.22 Type 2 diabetes mellitus with diabetic chronic kidney disease; I13.2 Hypertensive heart and chronic kidney disease with heart failure and with stage 5 chronic kidney disease, or end stage renal disease; N18.6 End stage renal disease; I50.9 Heart failure, unspecified; D64.9 Anemia, unspecified; E03.9 Hypothyroidism, unspecified; J44.9 Chronic obstructive pulmonary disease, unspecified; E78.5 Hyperlipidemia, unspecified; F32.9 Major depressive disorder, single episode, unspecified; Z99.2 Dependence on renal dialysis; Z79.82 Long term (current) use of aspirin; Z79.4 Long term (current) use of insulin; Z88.0 Allergy status to penicillin; Z88.8 Allergy status to other drugs, medicaments and biological substances
CPT/HCPCS: 36415; 80048; 80076; 83690; 85025; 99284

== ENCOUNTER 2019-07-17 18:12 | Emergency (ER) | payer MEDICAID ==
--- OUTSIDE RECORDS SUMMARY | 2019-07-17 18:16 | XMS REPORT | Clinical Summary ---
:1955 Author Organization [facility] Address [address] [place] [address] Care Team Providers Name Role Phone Radhika [...] Shorty Pennington, End-stage renal disease on hemodialysis ([facility]); Problem with vascular access; Mamadou Arreola's joint of foot, non-diabetic, right; MD Davis Pressure injury of right heel, stage 4 ([facility]); Emily Weston Elevated troponin; MD Mounika LBBB (left bundle branch block); Lars Lott Chronic systolic heart failure [facility] Nava MD ESRD (end stage renal disease) on dialysis (HCC); MRSA bacteremia; Troponin level elevated; Anemia of chronic disease; Hypokalemia 11/22/2018 Orders Only General Internal Medicine 11/22/2018 Telephone Critical Care [facility] Medicine Shorty Pennington MD after 07/16/2018 Social History Tobacco Use Types Packs/Day Years Used Date Never Smoker Smokeless Tobacco: Never Used Sex Assigned at Date Recorded Not on file Job Start Date Occupation Industry Not on file Not on file Not on file Travel History Travel Start Travel End No recent travel history available. Last Filed Vital Signs Vital Sign Reading Time Taken Blood Pressure 124/57 12/08/2018 4:37 AM PROFESSIONAL [employer]OR Pulse 82 12/08/2018 4:37 AM PROFESSIONAL TUTOR Temperature 36.8 C (98.2 F) 12/08/2018 4:37 AM PROFESSIONAL TUTOR Respiratory Rate 16 12/08/2018 4:37 AM PROFESSIONAL TUTOR Oxygen Saturation 95% 12/08/2018 4:37 AM PROFESSIONAL TUTOR Inhaled Oxygen Concentration - - Weight 97.9 kg (215 lb 13.3 oz) 12/07/2018 8:42 AM PROFESSIONAL TUTOR Height 170.2 cm (5' 7") 11/22/2018 3:09 PM PROFESSIONAL TUTOR Body Mass Index 33.8 12/07/2018 8:42 AM PROFESSIONAL TUTOR Plan of Treatment Not on file Procedures Procedure Name Priority Date/Time Associated Comments Diagnosis REPORT OF PROCEDURE - 12/28/2018 10:30 ENDOSCOPY SCAN AM PROFESSIONAL TUTOR RHYTHM STRIP - SCAN 12/28/2018 10:30 AM PROFESSIONAL TUTOR POCT-GLUCOSE METER Routine 12/08/2018 9:14 Results for this AM PROFESSIONAL TUTOR procedure are in the results section. CBC W/PLT COUNT & Routine 12/08/2018 5:56 Results for this AUTO DIFFERENTIAL AM PROFESSIONAL TUTOR procedure are in the results section. BASIC METABOLIC PANEL Routine 12/08/2018 5:56 Results for this (7) AM PROFESSIONAL TUTOR procedure are in the results section. CBC W/PLT COUNT & Routine 12/08/2018 5:56 Results for this AUTO DIFFERENTIAL AM PROFESSIONAL TUTOR procedure are in the results section. POCT-GLUCOSE METER Routine 12/07/2018 9:14 Results for this PM PROFESSIONAL TUTOR procedure are in the results section. XR ABDOMEN 1 VIEW JORDYN 12/07/2018 6:43 Results for this PM PROFESSIONAL TUTOR procedure are in the results section. POCT-GLUCOSE METER Routine 12/07/2018 5:48 Results for this PM PROFESSIONAL TUTOR procedure are in the results section. POCT-GLUCOSE METER Routine 12/07/2018 2:13 Results for this PM PROFESSIONAL TUTOR procedure are in the results section. HEMODIALYSIS Routine 12/07/2018 12:46 Results for this INPATIENT PM PROFESSIONAL TUTOR procedure are in the results section. HEMODIALYSIS Routine 12/07/2018 8:12 INPATIENT AM PROFESSIONAL TUTOR POCT-GLUCOSE METER Routine 12/07/2018 7:50 Results for this AM PROFESSIONAL TUTOR procedure are in the results section. CBC W/PLT COUNT & Routine 12/07/2018 5:32 Results for this AUTO DIFFERENTIAL AM PROFESSIONAL TUTOR procedure are in the results section. MAGNESIUM Routine 12/07/2018 5:32 Results for this AM PROFESSIONAL TUTOR procedure are in the results section. BASIC METABOLIC PANEL Routine 12/07/2018 5:32 Results for this (7) AM PROFESSIONAL TUTOR procedure are in the results section. CBC W/PLT COUNT & Routine 12/07/2018 5:32 Results for this AUTO DIFFERENTIAL AM PROFESSIONAL TUTOR procedure are in the results section. POCT-GLUCOSE METER Routine 12/06/2018 9:30 Results for this PM PROFESSIONAL TUTOR procedure are in the results section. POCT-GLUCOSE METER Routine 12/06/2018 5:41 Results for this PM PROFESSIONAL TUTOR procedure are in the results section. BLOOD CULTURE Routine 12/06/2018 2:55 Results for this PM PROFESSIONAL TUTOR procedure are in the results section. NM MYOCARDIAL Routine 12/06/2018 1:20 Results for this PERFUSION SPECT, PM PROFESSIONAL TUTOR procedure are in PHARM(LEXISCAN) the results section. POCT-GLUCOSE METER Routine 12/06/2018 12:29 Results for this PM PROFESSIONAL TUTOR procedure are in the results section. POCT-GLUCOSE METER Routine 12/06/2018 11:06 Results for this AM PROFESSIONAL TUTOR procedure are in the results section. TREADMILL Routine 12/06/2018 9:38 Results for this TOLERANCE(NON-NUCLEAR AM PROFESSIONAL TUTOR procedure are in TREADMILL) the results section. ECG 12-LEAD Routine 12/06/2018 9:12 AM PROFESSIONAL TUTOR Procedure Note - Interface, External Ris In - 12/06/2018 9:56 AM PROFESSIONAL TUTOR Ventricular Rate 90 BPM Atrial Rate 90 BPM P-R Interval 178 ms QRS Duration 152 ms Q-T Interval 424 ms QTC Calculation(Bazett) 518 ms P [place] 69 degrees R [place] 70 degrees T [place] 63 degrees Normal sinus rhythm Left bundle branch block Abnormal ECG ECG 12-LEAD Routine 12/06/2018 9:11 AM PROFESSIONAL TUTOR Procedure Note - Interface, External Ris In - 12/06/2018 9:56 AM PROFESSIONAL TUTOR Ventricular Rate 91 BPM Atrial Rate 91 BPM P-R Interval 172 ms QRS Duration 158 ms Q-T Interval 408 ms QTC Calculation(Bazett) 501 ms P [place] 60 degrees R [place] 74 degrees T [place] 206 degrees Sinus rhythm with Fusion complexes Left bundle branch block Abnormal ECG ECG 12-LEAD Routine 12/06/2018 9:03 AM PROFESSIONAL TUTOR ECG 12-LEAD Routine 12/06/2018 9:03 AM PROFESSIONAL TUTOR Procedure Note - Interface, External Ris In - 12/06/2018 9:56 AM PROFESSIONAL TUTOR Ventricular Rate 91 BPM Atrial Rate 91 BPM P-R Interval 172 ms QRS Duration 152 ms Q-T Interval 422 ms QTC Calculation(Bazett) 519 ms P [place] 68 degrees R [place] 67 degrees T [place] 79 degrees Normal sinus rhythm Left bundle branch block Abnormal ECG POCT-GLUCOSE METER Routine 12/06/2018 6:16 AM PROFESSIONAL TUTOR CBC W/PLT COUNT & AUTO Routine 12/06/2018 1:11 AM PROFESSIONAL TUTOR Results for this DIFFERENTIAL procedure are in the results section. APTT Routine 12/06/2018 1:11 AM PROFESSIONAL TUTOR BASIC METABOLIC PANEL (7) Routine 12/06/2018 1:11 AM PROFESSIONAL TUTOR CBC W/PLT COUNT & AUTO Routine 12/06/2018 1:11 AM PROFESSIONAL TUTOR Results for this DIFFERENTIAL procedure are in the results section. VANCOMYCIN LEVEL, RANDOM Routine 12/06/2018 1:11 AM PROFESSIONAL TUTOR POCT-GLUCOSE METER Routine 12/05/2018 9:20 PM PROFESSIONAL TUTOR TRANSFUSION SERVICE REPORT - 12/05/2018 5:50 PM PROFESSIONAL TUTOR SCAN POCT-GLUCOSE METER Routine 12/05/2018 4:27 PM PROFESSIONAL TUTOR POCT-GLUCOSE METER Routine 12/05/2018 12:18 PM PROFESSIONAL TUTOR APTT Routine 12/05/2018 8:09 AM PROFESSIONAL TUTOR CBC W/PLT COUNT & AUTO Routine 12/05/2018 8:00 AM PROFESSIONAL TUTOR Results for this DIFFERENTIAL procedure are in the results section. BASIC METABOLIC PANEL (7) Routine 12/05/2018 8:00 AM PROFESSIONAL TUTOR CBC W/PLT COUNT & AUTO Routine 12/05/2018 8:00 AM PROFESSIONAL TUTOR Results for this DIFFERENTIAL procedure are in the results section. PREPARE LEUKO-REDUCED RBC Routine 12/04/2018 11:54 PM PROFESSIONAL TUTOR APTT Routine 12/04/2018 11:36 PM PROFESSIONAL TUTOR POCT-GLUCOSE METER Routine 12/04/2018 8:48 PM PROFESSIONAL TUTOR TRANSFUSION SERVICE REPORT - 12/04/2018 5:50 PM PROFESSIONAL TUTOR SCAN POCT-GLUCOSE METER Routine 12/04/2018 5:02 PM PROFESSIONAL TUTOR APTT Routine 12/04/2018 4:05 PM PROFESSIONAL TUTOR POCT-GLUCOSE METER Routine 12/04/2018 12:31 PM PROFESSIONAL TUTOR APTT Routine 12/04/2018 9:59 AM PROFESSIONAL TUTOR POCT-GLUCOSE METER Routine 12/04/2018 8:10 AM PROFESSIONAL TUTOR CBC W/PLT COUNT & AUTO Routine 12/04/2018 5:33 AM PROFESSIONAL TUTOR Results for this DIFFERENTIAL procedure are in the results section. VANCOMYCIN LEVEL, RANDOM Routine 12/04/2018 5:33 AM PROFESSIONAL TUTOR BASIC METABOLIC PANEL (7) Routine 12/04/2018 5:33 AM PROFESSIONAL TUTOR CBC W/PLT COUNT & AUTO Routine 12/04/2018 5:33 AM PROFESSIONAL TUTOR Results for this DIFFERENTIAL procedure are in the results section. POCT-GLUCOSE METER Routine 12/03/2018 9:16 PM PROFESSIONAL TUTOR POCT-GLUCOSE METER Routine 12/03/2018 5:04 PM PROFESSIONAL TUTOR TRANSFUSE LEUKO-REDUCED RED Routine 12/03/2018 3:10 PM PROFESSIONAL TUTOR BLOOD CELLS POCT-GLUCOSE METER Routine 12/03/2018 12:08 PM PROFESSIONAL TUTOR TYPE AND SCREEN, AUTOMATED Routine 12/03/2018 8:46 AM PROFESSIONAL TUTOR POCT-GLUCOSE METER Routine 12/03/2018 8:11 AM PROFESSIONAL TUTOR CBC W/PLT COUNT & AUTO Routine 12/03/2018 5:59 AM PROFESSIONAL TUTOR Results for this DIFFERENTIAL procedure are in the results section. BASIC METABOLIC PANEL (7) Routine 12/03/2018 5:59 AM PROFESSIONAL TUTOR CBC W/PLT COUNT & AUTO Routine 12/03/2018 5:59 AM PROFESSIONAL TUTOR Results for this DIFFERENTIAL procedure are in the results section. HEMODIALYSIS INPATIENT Routine 12/02/2018 9:15 PM PROFESSIONAL TUTOR IR TUNNELED DIALYSIS CATHETER Routine 12/02/2018 1:10 PM PROFESSIONAL TUTOR HEMOGLOBIN AND HEMATOCRIT Routine 12/02/2018 8:24 AM PROFESSIONAL TUTOR POCT-GLUCOSE METER Routine 12/02/2018 7:33 AM PROFESSIONAL TUTOR POCT-GLUCOSE METER Routine 12/02/2018 6:30 AM PROFESSIONAL TUTOR CBC W/PLT COUNT & AUTO Routine 12/02/2018 5:42 AM PROFESSIONAL TUTOR Results for this DIFFERENTIAL procedure are in the results section. PT/APTT Routine 12/02/2018 5:42 AM PROFESSIONAL TUTOR BASIC METABOLIC PANEL (7) Routine 12/02/2018 5:42 AM PROFESSIONAL TUTOR CBC W/PLT COUNT & AUTO Routine 12/02/2018 5:42 AM PROFESSIONAL TUTOR Results for this DIFFERENTIAL procedure are in the results section. VANCOMYCIN LEVEL, RANDOM Routine 12/02/2018 5:42 AM PROFESSIONAL TUTOR POCT-GLUCOSE METER Routine 12/01/2018 11:36 PM PROFESSIONAL TUTOR MR LOWER EXT JOINT WITHOUT IV Routine 12/01/2018 7:00 PM PROFESSIONAL TUTOR Results for this CONTRAST RIGHT procedure are in the results section. POCT-GLUCOSE METER Routine 12/01/2018 12:02 PM PROFESSIONAL TUTOR CBC W/PLT COUNT & AUTO Routine 12/01/2018 11:33 AM PROFESSIONAL TUTOR Results for this DIFFERENTIAL procedure are in the results section. BASIC METABOLIC PANEL (7) Routine 12/01/2018 11:33 AM PROFESSIONAL TUTOR CBC W/PLT COUNT & AUTO Routine 12/01/2018 11:33 AM PROFESSIONAL TUTOR Results for this DIFFERENTIAL procedure are in the results section. XR HIP RIGHT 1 VIEW Routine 12/01/2018 11:16 AM PROFESSIONAL TUTOR POCT-GLUCOSE METER Routine 12/01/2018 7:39 AM PROFESSIONAL TUTOR VANCOMYCIN LEVEL, RANDOM Routine 12/01/2018 5:58 AM PROFESSIONAL TUTOR GENTAMICIN LEVEL, TROUGH Routine 11/30/2018 8:57 PM PROFESSIONAL TUTOR POCT-GLUCOSE METER Routine 11/30/2018 8:16 PM PROFESSIONAL TUTOR POCT-GLUCOSE METER Routine 11/30/2018 6:03 PM PROFESSIONAL TUTOR TRANSFUSION SERVICE REPORT - 11/30/2018 6:00 PM PROFESSIONAL TUTOR SCAN HEMODIALYSIS INPATIENT Routine 11/30/2018 4:43 PM PROFESSIONAL TUTOR POCT-GLUCOSE METER Routine 11/30/2018 1:41 PM PROFESSIONAL TUTOR POCT-GLUCOSE METER Routine 11/30/2018 7:36 AM PROFESSIONAL TUTOR CBC W/PLT COUNT & AUTO Routine 11/30/2018 6:22 AM PROFESSIONAL TUTOR Results for this DIFFERENTIAL procedure are in the results section. BASIC METABOLIC PANEL (7) Routine 11/30/2018 6:22 AM PROFESSIONAL TUTOR CBC W/PLT COUNT & AUTO Routine 11/30/2018 6:22 AM PROFESSIONAL TUTOR Results for this DIFFERENTIAL procedure are in the results section. VANCOMYCIN LEVEL, RANDOM Routine 11/30/2018 6:22 AM PROFESSIONAL TUTOR PREPARE LEUKO-REDUCED RBC Routine 11/29/2018 11:54 PM PROFESSIONAL TUTOR POCT-GLUCOSE METER Routine 11/29/2018 9:16 PM PROFESSIONAL TUTOR TRANSFUSION SERVICE REPORT - 11/29/2018 6:00 PM PROFESSIONAL TUTOR SCAN POCT-GLUCOSE METER Routine 11/29/2018 5:48 PM PROFESSIONAL TUTOR POCT-GLUCOSE METER Routine 11/29/2018 1:21 PM PROFESSIONAL TUTOR POCT-GLUCOSE METER Routine 11/29/2018 8:20 AM PROFESSIONAL TUTOR CBC W/PLT COUNT & AUTO Routine 11/29/2018 5:59 AM PROFESSIONAL TUTOR Results for this DIFFERENTIAL procedure are in the results section. PHOSPHORUS Routine 11/29/2018 5:59 AM PROFESSIONAL TUTOR MAGNESIUM Routine 11/29/2018 5:59 AM PROFESSIONAL TUTOR BASIC METABOLIC PANEL (7) Routine 11/29/2018 5:59 AM PROFESSIONAL TUTOR CBC W/PLT COUNT & AUTO Routine 11/29/2018 5:59 AM PROFESSIONAL TUTOR Results for this DIFFERENTIAL procedure are in the results section. VANCOMYCIN LEVEL, RANDOM Routine 11/29/2018 5:59 AM PROFESSIONAL TUTOR POCT-GLUCOSE METER Routine 11/29/2018 12:34 AM PROFESSIONAL TUTOR HEMODIALYSIS INPATIENT Routine 11/28/2018 11:37 PM PROFESSIONAL TUTOR HEMOGLOBIN AND HEMATOCRIT Routine 11/28/2018 11:15 PM PROFESSIONAL TUTOR TRANSFUSE LEUKO-REDUCED RED Routine 11/28/2018 8:13 PM PROFESSIONAL TUTOR BLOOD CELLS POCT-GLUCOSE METER Routine 11/28/2018 5:43 PM PROFESSIONAL TUTOR ECHOCARDIOGRAM REPORT - SCAN 11/28/2018 1:20 PM PROFESSIONAL TUTOR POCT-GLUCOSE METER Routine 11/28/2018 12:[address] ABDOMEN/PELVIS WITHOUT IV STAT 11/28/2018 9:19 AM PROFESSIONAL TUTOR Results for this CONTRAST procedure are in the results section. PROTHROMBIN TIME/INR STAT 11/28/2018 9:01 AM PROFESSIONAL TUTOR TRANSESOPHAGEAL ECHO Routine 11/28/2018 8:58 AM PROFESSIONAL TUTOR TYPE AND SCREEN, AUTOMATED Routine 11/28/2018 8:52 AM PROFESSIONAL TUTOR HEMOGLOBIN AND HEMATOCRIT STAT 11/28/2018 8:52 AM PROFESSIONAL TUTOR BLOOD CULTURE Routine 11/28/2018 8:52 AM PROFESSIONAL TUTOR CBC W/PLT COUNT & AUTO Routine 11/28/2018 5:57 AM PROFESSIONAL TUTOR Results for this DIFFERENTIAL procedure are in the results section. APTT Routine 11/28/2018 5:57 AM PROFESSIONAL TUTOR CBC W/PLT COUNT & AUTO Routine 11/28/2018 5:57 AM PROFESSIONAL TUTOR Results for this DIFFERENTIAL procedure are in the results section. BASIC METABOLIC PANEL (7) Routine 11/28/2018 5:57 AM PROFESSIONAL TUTOR POCT-GLUCOSE METER Routine 11/27/2018 9:29 PM PROFESSIONAL TUTOR APTT Routine 11/27/2018 6:12 PM PROFESSIONAL TUTOR POCT-GLUCOSE METER Routine 11/27/2018 1:14 PM PROFESSIONAL TUTOR APTT Routine 11/27/2018 10:58 AM PROFESSIONAL TUTOR POCT-GLUCOSE METER Routine 11/27/2018 8:07 AM PROFESSIONAL TUTOR BLOOD CULTURE Routine 11/27/2018 6:55 AM PROFESSIONAL TUTOR CBC W/PLT COUNT & AUTO Routine 11/27/2018 4:29 AM PROFESSIONAL TUTOR Results for this DIFFERENTIAL procedure are in the results section. APTT Routine 11/27/2018 4:29 AM PROFESSIONAL TUTOR BASIC METABOLIC PANEL (7) Routine 11/27/2018 4:29 AM PROFESSIONAL TUTOR CBC W/PLT COUNT & AUTO Routine 11/27/2018 4:29 AM PROFESSIONAL TUTOR Results for this DIFFERENTIAL procedure are in the results section. VANCOMYCIN LEVEL, RANDOM Routine 11/27/2018 4:29 AM PROFESSIONAL TUTOR POCT-GLUCOSE METER Routine 11/26/2018 10:05 PM PROFESSIONAL TUTOR APTT Routine 11/26/2018 8:30 PM PROFESSIONAL TUTOR APTT Routine 11/26/2018 6:17 PM PROFESSIONAL TUTOR POCT-GLUCOSE METER Routine 11/26/2018 5:09 PM PROFESSIONAL TUTOR POCT-GLUCOSE METER Routine 11/26/2018 12:41 PM PROFESSIONAL TUTOR APTT Routine 11/26/2018 10:31 AM PROFESSIONAL TUTOR CONT WAVE PULSED DOPPLER Routine 11/26/2018 8:22 AM PROFESSIONAL TUTOR COLOR-FLOW MAPPING Routine 11/26/2018 8:22 AM PROFESSIONAL TUTOR POCT-GLUCOSE METER Routine 11/26/2018 7:42 AM PROFESSIONAL TUTOR POCT-GLUCOSE METER Routine 11/26/2018 3:21 AM PROFESSIONAL TUTOR APTT Routine 11/26/2018 3:11 AM PROFESSIONAL TUTOR POCT-GLUCOSE METER Routine 11/25/2018 10:12 PM PROFESSIONAL TUTOR APTT Routine 11/25/2018 8:46 PM PROFESSIONAL TUTOR POCT-GLUCOSE METER Routine 11/25/2018 7:32 PM PROFESSIONAL TUTOR VANCOMYCIN LEVEL, RANDOM Routine 11/25/2018 6:13 PM PROFESSIONAL TUTOR HEPATITIS B SURFACE ANTIGEN Routine 11/25/2018 3:08 PM PROFESSIONAL TUTOR APTT Routine 11/25/2018 3:08 PM PROFESSIONAL TUTOR HEMODIALYSIS INPATIENT Routine 11/25/2018 3:01 PM PROFESSIONAL TUTOR APTT Routine 11/25/2018 12:10 PM PROFESSIONAL TUTOR BASIC METABOLIC PANEL (7) STAT 11/25/2018 12:10 PM PROFESSIONAL TUTOR POCT-GLUCOSE METER Routine 11/25/2018 7:44 AM PROFESSIONAL TUTOR APTT Routine 11/25/2018 6:23 AM PROFESSIONAL TUTOR CBC W/PLT COUNT & AUTO STAT 11/25/2018 5:35 AM PROFESSIONAL TUTOR Results for this DIFFERENTIAL procedure are in the results section. CBC W/PLT COUNT & AUTO STAT 11/25/2018 5:35 AM PROFESSIONAL TUTOR Results for this DIFFERENTIAL procedure are in the results section. APTT Routine 11/24/2018 11:39 PM PROFESSIONAL TUTOR PHOSPHORUS Routine 11/24/2018 11:39 PM PROFESSIONAL TUTOR MAGNESIUM Routine 11/24/2018 11:39 PM PROFESSIONAL TUTOR BASIC METABOLIC PANEL (7) STAT 11/24/2018 11:39 PM PROFESSIONAL TUTOR POCT-GLUCOSE METER Routine 11/24/2018 10:04 PM PROFESSIONAL TUTOR POCT-GLUCOSE METER Routine 11/24/2018 5:17 PM PROFESSIONAL TUTOR APTT Routine 11/24/2018 4:43 PM PROFESSIONAL TUTOR PT/APTT Routine 11/24/2018 4:43 PM PROFESSIONAL TUTOR POCT-GLUCOSE METER Routine 11/24/2018 12:28 PM PROFESSIONAL TUTOR APTT Routine 11/24/2018 9:37 AM PROFESSIONAL TUTOR POCT-GLUCOSE METER Routine 11/24/2018 7:38 AM PROFESSIONAL TUTOR CBC W/PLT COUNT & AUTO STAT 11/24/2018 4:03 AM PROFESSIONAL TUTOR Results for this DIFFERENTIAL procedure are in the results section. PHOSPHORUS Routine 11/24/2018 4:03 AM PROFESSIONAL TUTOR MAGNESIUM Routine 11/24/2018 4:03 AM PROFESSIONAL TUTOR TROPONIN I Routine 11/24/2018 4:03 AM PROFESSIONAL TUTOR B-TYPE NATRIURETIC FACTOR Routine 11/24/2018 4:03 AM PROFESSIONAL TUTOR Results for this (BNP) procedure are in the results section. CBC W/PLT COUNT & AUTO STAT 11/24/2018 4:03 AM PROFESSIONAL TUTOR Results for this DIFFERENTIAL procedure are in the results section. BASIC METABOLIC PANEL (7) STAT 11/24/2018 4:03 AM PROFESSIONAL TUTOR LACTIC ACID, VENOUS Routine 11/24/2018 4:03 AM PROFESSIONAL TUTOR POCT-GLUCOSE METER Routine 11/23/2018 9:54 PM PROFESSIONAL TUTOR POCT-GLUCOSE METER Routine 11/23/2018 6:00 PM PROFESSIONAL TUTOR BLOOD CULTURE Routine 11/23/2018 3:40 PM PROFESSIONAL TUTOR POCT-GLUCOSE METER Routine 11/23/2018 12:58 PM PROFESSIONAL TUTOR VANCOMYCIN LEVEL, RANDOM Routine 11/23/2018 12:54 PM PROFESSIONAL TUTOR CATHETER TIP CULTURE STAT 11/23/2018 12:54 PM PROFESSIONAL TUTOR IR CENTRAL VENOUS CATHETER STAT 11/23/2018 12:38 PM PROFESSIONAL TUTOR Results for this PLACEMENT (JUGULAR OR procedure are in the FEMORAL) results section. ECG 12-LEAD Routine 11/23/2018 9:30 AM PROFESSIONAL TUTOR Procedure Note - Interface, External Ris In - 11/23/2018 9:37 AM PROFESSIONAL TUTOR Ventricular Rate 92 BPM Atrial Rate 92 BPM P-R Interval 156 ms QRS Duration 162 ms Q-T Interval 418 ms QTC Calculation(Bazett) 516 ms P [place] 52 degrees R [place] 38 degrees T [place] 103 degrees Normal sinus rhythm Left bundle branch block Abnormal ECG When compared with ECG of 22-NOV-2018 16:47, No significant change was found ECG 12-LEAD STAT 11/23/2018 9:30 AM PROFESSIONAL TUTOR ECHOCARDIOGRAM REPORT - SCAN 11/23/2018 9:00 AM PROFESSIONAL TUTOR XR ABDOMEN 1 VIEW STAT 11/23/2018 8:35 AM PROFESSIONAL TUTOR CALCIUM, IONIZED Routine 11/23/2018 7:27 AM PROFESSIONAL TUTOR CBC W/PLT COUNT & AUTO STAT 11/23/2018 7:00 AM PROFESSIONAL TUTOR Results for this DIFFERENTIAL procedure are in the results section. LIPASE STAT 11/23/2018 7:00 AM PROFESSIONAL TUTOR TROPONIN I JORDYN 11/23/2018 7:00 AM PROFESSIONAL TUTOR PHOSPHORUS Routine 11/23/2018 7:00 AM PROFESSIONAL TUTOR MAGNESIUM Routine 11/23/2018 7:00 AM PROFESSIONAL TUTOR BASIC METABOLIC PANEL (7) Routine 11/23/2018 7:00 AM PROFESSIONAL TUTOR COMPREHENSIVE METABOLIC Routine 11/23/2018 7:00 AM PROFESSIONAL TUTOR Results for this PANEL procedure are in the results section. CBC W/PLT COUNT & AUTO STAT 11/23/2018 7:00 AM PROFESSIONAL TUTOR Results for this DIFFERENTIAL procedure are in the results section. LACTIC ACID, VENOUS Routine 11/23/2018 7:00 AM PROFESSIONAL TUTOR PHOSPHORUS Routine 11/23/2018 1:26 AM PROFESSIONAL TUTOR MAGNESIUM Routine 11/23/2018 1:26 AM PROFESSIONAL TUTOR CALCIUM, IONIZED Routine 11/23/2018 1:26 AM PROFESSIONAL TUTOR BASIC METABOLIC PANEL (7) Routine 11/23/2018 1:26 AM PROFESSIONAL TUTOR POCT-GLUCOSE METER Routine 11/23/2018 12:27 AM PROFESSIONAL TUTOR TROPONIN I Routine 11/22/2018 10:08 PM PROFESSIONAL TUTOR LACTIC ACID, VENOUS STAT 11/22/2018 10:08 PM PROFESSIONAL TUTOR US ABDOMEN COMPLETE STAT 11/22/2018 6:56 PM PROFESSIONAL TUTOR LACTIC ACID, VENOUS STAT 11/22/2018 6:36 PM PROFESSIONAL TUTOR XR CHEST 1 VIEW STAT 11/22/2018 4:48 PM PROFESSIONAL TUTOR Results for this PORTABLE/BEDSIDE procedure are in the results section. ECG 12-LEAD Routine 11/22/2018 4:47 PM PROFESSIONAL TUTOR Procedure Note - Interface, External Ris In - 11/22/2018 5:11 PM PROFESSIONAL TUTOR Ventricular Rate 91 BPM Atrial Rate 91 BPM P-R Interval 162 ms QRS Duration 172 ms Q-T Interval 442 ms QTC Calculation(Bazett) 543 ms P [place] 6 degrees R [place] -18 degrees T [place] 70 degrees Normal sinus rhythm Left bundle branch block Abnormal ECG No previous ECGs available ECG 12-LEAD Routine 11/22/2018 4:47 PM PROFESSIONAL TUTOR BLOOD GAS, ARTERIAL STAT 11/22/2018 4:25 PM PROFESSIONAL TUTOR BLOOD CULTURE STAT 11/22/2018 4:25 PM PROFESSIONAL TUTOR (CELLAVISION MANUAL DIFF) Routine 11/22/2018 4:19 PM PROFESSIONAL TUTOR CBC W/PLT COUNT & AUTO STAT 11/22/2018 4:19 PM PROFESSIONAL TUTOR Results for this DIFFERENTIAL procedure are in the results section. VANCOMYCIN LEVEL, RANDOM STAT 11/22/2018 4:19 PM PROFESSIONAL TUTOR B-TYPE NATRIURETIC FACTOR Routine 11/22/2018 4:19 PM PROFESSIONAL TUTOR Results for this (BNP) procedure are in the results section. TSH/FREE T4 IF INDICATED Routine 11/22/2018 4:19 PM PROFESSIONAL TUTOR TROPONIN I Routine 11/22/2018 4:19 PM PROFESSIONAL TUTOR CBC W/PLT COUNT & AUTO STAT 11/22/2018 4:19 PM PROFESSIONAL TUTOR Results for this DIFFERENTIAL procedure are in the results section. PROTHROMBIN TIME/INR STAT 11/22/2018 4:19 PM PROFESSIONAL TUTOR MAGNESIUM STAT 11/22/2018 4:19 PM PROFESSIONAL TUTOR PHOSPHORUS STAT 11/22/2018 4:19 PM PROFESSIONAL TUTOR BASIC METABOLIC PANEL (7) STAT 11/22/2018 4:19 PM PROFESSIONAL TUTOR HEPATIC FUNCTION PANEL STAT 11/22/2018 4:19 PM PROFESSIONAL TUTOR OXYGEN SATURATION, MEASURED STAT 11/22/2018 4:19 PM PROFESSIONAL TUTOR PROCALCITONIN STAT 11/22/2018 4:19 PM PROFESSIONAL TUTOR LACTIC ACID, VENOUS STAT 11/22/2018 4:19 PM PROFESSIONAL TUTOR BLOOD CULTURE IDENTIFICATION Routine 11/22/2018 4:19 PM PROFESSIONAL TUTOR Results for this PANEL procedure are in the results section. BLOOD CULTURE STAT 11/22/2018 4:19 PM PROFESSIONAL TUTOR 2D ECHO W/ DOPPLER STAT 11/22/2018 3:51 PM PROFESSIONAL TUTOR Results for this (CW/PW/COLOR) procedure are in the results section. after 07/16/2018 Results EKG-SCANNED (12/28/2018 10:30 AM PROFESSIONAL TUTOR) Narrative Performed At RHYTHM STRIP - SCAN (12/28/2018 10:30 AM PROFESSIONAL TUTOR) Narrative Performed At POC-Glucose meter (12/08/2018 9:14 AM PROFESSIONAL TUTOR)Only the most recent of56 resultswithin the time period is included. POC-Glucose Meter 110Comment: TESTED AT 70 - 110 mg/dL [facility] [address] [facility] [place] [id number] Specimen Blood Performing Organization Address City/State/Zipcode Phone Number [facility] [address] [place], [place] [id number] CENTER CBC with platelet count + automated diff (12/08/2018 5:56 AM PROFESSIONAL TUTOR)Only the most recent of16 resultswithin the time period is included. WBC 8.2 3.5 - 10.5 K/L [facility] RBC 2.79 (L) 3.93 - 5.22 M/L [facility] Hemoglobin 7.8 (L) 11.2 - 15.7 GM/DL [facility] Hematocrit 26.4 (L) 34.1 - 44.9 % [facility] MCV 94.6 79.4 - 94.8 fL [facility] MCH 28.0 25.6 - 32.2 pg [facility] MCHC 29.5 (L) 32.2 - 35.5 GM/DL [facility] RDW 14.5 (H) 11.7 - 14.4 % [facility] Platelets 299 150 - 450 K/CU MM [facility] [facility] MPV 10.0 9.4 - 12.3 fL [facility] nRBC 0 0 - 0 /100 WBC [facility] % Neutros 72 % [facility] % Lymphs 11 % [facility] % Monos 10 % [facility] % Eos 5 % [facility] % Baso 1 % [facility] # Neutros 5.93 1.56 - 6.13 K/L [facility] # Lymphs 0.87 (L) 1.18 - 3.74 K/L [facility] # Monos 0.84 (H) 0.24 - 0.36 K/L [facility] # Eos 0.44 (H) 0.04 - 0.36 K/L [facility] # Baso 0.09 (H) 0.01 - 0.08 K/L [facility] Immature Granulocytes-Relative 1 0 - 1 % [facility] Specimen Blood Performing Organization Address City/[facility]/Zipcode Phone Number [address] [address] [place] Basic Metabolic Panel (12/08/2018 5:56 AM PROFESSIONAL TUTOR)Only the most recent of18 resultswithin the time period is included. Sodium 139 136 - 145 meq/L [facility] Potassium 4.3 3.5 - 5.1 meq/L [facility] Chloride 104 98 - 107 meq/L [facility] CO2 26 22 - 29 meq/L [facility] BUN 31 (H) 7 - 21 mg/dL [facility] Creatinine 5.39 (H) 0.57 - 1.25 mg/dL [facility] Glucose 83 70 - 105 mg/dL [facility] Calcium 9.1 8.4 - 10.2 mg/dL [facility] EGFR 10Comment: ESTIMATED GFR IS mL/min/1.73 sq m [facility] NOT ACCURATE CREATININE [facility] CENTER CLEARANCE IN PREDICTING GLOMERULAR FILTRATION RATE. ESTIMATED GFR IS NOT APPLICABLE FOR DIALYSIS PATIENTS. Specimen Blood Performing Organization Address City/State/Zipcode Phone Number [place] [phone] [place] [address] [place] XR abdomen / KUB 1 view (12/07/2018 6:43 PM PROFESSIONAL TUTOR)Only the most recent of2 resultswithin the time period is included. Specimen Narrative Performed At FINAL REPORT [facility] EXAMINATION: SUPINE ABDOMEN CLINICAL INDICATION: Abdominal pain [...] MD Report Verified Date/Time:12/08/2018 04:19:23 Reading Location: [address] Reading Room Procedure Note Interface, External Ris In - 12/08/2018 4:21 AM PROFESSIONAL TUTOR FINAL REPORT EXAMINATION: SUPINE ABDOMEN CLINICAL INDICATION: [...] Report Verified Date/Time: 12/08/2018 04:19:23 Reading Location: [address] Reading Room Performing Organization Address City/State/Zipcode Phone Number [facility] HEMODIALYSIS INPATIENT (12/07/2018 12:46 PM PROFESSIONAL TUTOR) Narrative Performed At Khai Angeles RN 12/07/2018 [...] 36.0 seconds Final Magnesium (12/07/2018 5:32 AM PROFESSIONAL TUTOR)Only the most recent of7 resultswithin the time period is included. Magnesium 2.2 1.6 - 2.6 mg/dL [facility] Specimen Blood Performing Organization Address City/State/Zipcode Phone Number [address] [address] CENTER Blood culture (12/06/2018 2:55 PM PROFESSIONAL TUTOR)Only the most recent of6 resultswithin the time period is included. Result No growth in 5 days [facility] Specimen Blood Performing Organization Address City/State/Zipcode Phone Number [address] [address] CENTER NM myocardial perfusion SPECT, pharm(Lexiscan) (12/06/2018 1:20 PM PROFESSIONAL TUTOR) Specimen Narrative Performed At FINAL REPORT [facility] PROCEDURE:Rest/Stress MYOCARDIAL PERFUSION SPECT with regadenoson\\XA9\\ CPT CODE:00996 INDICATION:New onset heart failure, intermediate risk for [...] Extracardiac tracer distribution is normal.6. No previous [facility] study for comparison. Signed: Dariana Jones MD Report Verified Date/Time:12/06/2018 16:00:51 Reading Location: [address] Reading Room Procedure Note Interface, External Ris In - 12/06/2018 4:03 PM PROFESSIONAL TUTOR FINAL REPORT PROCEDURE: Rest/Stress MYOCARDIAL PERFUSION SPECT with regadenoson\\XA9\\ CPT CODE: 41870 INDICATION: New onset heart failure, intermediate risk [...] tracer distribution is normal. 6. No previous [facility] study for comparison. Signed: Dariana Jones MD Report Verified Date/Time: 12/06/2018 16:00:51 Reading Location: [address] [facility] Reading Room Performing Organization Address City/State/Zipcode Phone Number [place] Treadmill tolerance(Non-Nuclear Treadmill) (12/06/2018 9:38 AM PROFESSIONAL TUTOR) Specimen Narrative Performed At Protocol Name Willian Mapori Time In Exercise Phase 00:01:00 Max. Systolic [...] 10:22:29 AM Confirmed by MD GOLDBERG JORGE ([id number]) on 12/20/2018 12:25:53 PM Procedure Note Interface, External Ris In - 12/20/2018 12:26 PM PROFESSIONAL TUTOR Protocol Name Lexiscan Time In Exercise Phase [...] MUSE ECG 12 lead (12/06/2018 9:03 AM PROFESSIONAL TUTOR)Only the most recent of3 resultswithin the time period is included. Specimen Narrative Performed At Ventricular Rate 91 BPM GE MUSE Atrial Rate 91 BPM P-R Interval 172 ms QRS Duration 152 ms Q-T Interval 422 ms QTC Calculation(Bazett) 519 ms P [place] 68 degrees R [place] 67 degrees T [place] 79 degrees Normal sinus rhythm Left bundle branch block Abnormal ECG Confirmed by MD Denny Roberto ([id number]) on 12/06/2018 2:16:39 PM Procedure Note Interface, External Ris In - 12/06/2018 2:16 PM PROFESSIONAL TUTOR Ventricular Rate 91 BPM Atrial Rate 91 BPM P-R Interval 172 ms QRS Duration 152 ms Q-T Interval 422 ms QTC Calculation(Bazett) 519 ms P [place] 68 degrees R [place] 67 degrees T [place] 79 degrees Normal sinus rhythm Left bundle branch block Abnormal ECG Confirmed by MD Denny Roberto ([id number]) on 12/06/2018 2:16:39 PM Performing Organization Address City/State/Zipcode Phone Number GE MUSE aPTT (12/06/2018 1:11 AM PROFESSIONAL TUTOR)Only the most recent of20 resultswithin the time period is included. PTT 85.3 (H) 22.5 - 36.0 seconds [facility] Specimen Blood Performing Organization Address [facility] Phone Number [address] [address] CENTER Vancomycin level, random (12/06/2018 1:11 AM PROFESSIONAL TUTOR)Only the most recent of10 resultswithin the time period is included. Vancomycin Rm 18.7 ug/mL [facility] Specimen Blood Narrative Performed At Reference Range: No Normals [facility] Performing Organization Address [facility] Phone Number [address] [address] CENTER TRANSFUSION SERVICE REPORT - SCAN (12/05/2018 5:50 PM PROFESSIONAL TUTOR)Only the most recent of4 resultswithin the time period is included. Narrative Performed At Prepare Leuko-Red RBC (12/04/2018 11:54 PM PROFESSIONAL TUTOR)Only the most recent of2 resultswithin the time period is included. CROSSMATCH COMPATIBLE SAFETRACE TX Unit ABO A Neg SAFETRACE TX UNIT NUMBER [id number] SAFET[place]ACE TX Status TRANSFUSED [facility]AF[facility] TX Blood Bank Product RED BLOOD CELLS SAFETRACE TX PRODUCT CODE [id number] SAFETRACE TX Specimen Other Performing Organization Address City/[facility] Phone Number SAFETRACE TX Transfuse Leuko-Red RBC (12/03/2018 3:10 PM PROFESSIONAL TUTOR)Only the most recent of4 resultswithin the time period is included.Type and screen, automated (2018 8:46 AM PROFESSIONAL TUTOR)Only the most recent of2 resultswithin the time period is included. ABO/RH AUTOMATED (BEAKER) A NEGATIVE [facility] Ab Scrn NEGATIVE [facility] Specimen Blood Performing Organization Address City/State/Zipcode Phone Number [facility] [address] [place] [address] [phone] HEMODIALYSIS INPATIENT (12/02/2018 9:15 PM PROFESSIONAL TUTOR) Narrative Performed At Meenakshi No RN 12/02/20189:20 PM Hd completed for 4 hours with UF-2L. Pt's bp dropped at the end of HD. Pt given Ns 500 ml bolus. Pt responded to the bolus and blood pressure stabilize. Pt alert , awake. No distress. [facility]. BP 127/61 (BP Location: Right [...] IR Tunneled Catheter Insertion (12/02/2018 1:10 PM PROFESSIONAL TUTOR) Specimen Narrative Performed At FINAL REPORT [facility] History: Need for long-term hemodialysis access, malfunctioning [...] MD Report Verified Date/Time:12/06/2018 14:29:30 Reading Location: [place] [address] Angio Body Reading Room Procedure Note Interface, External Ris In - 12/06/2018 2:31 PM PROFESSIONAL TUTOR FINAL REPORT History: Need for long-term hemodialysis [...] Report Verified Date/Time: 12/06/2018 14:29:30 Reading Location: [place] [address] Angio Body Reading Room Performing Organization Address City/[facility] Phone Number GE RIS Hemoglobin and hematocrit (12/02/2018 8:24 AM PROFESSIONAL TUTOR)Only the most recent of3 resultswithin the time period is included. Hemoglobin 7.2 (L) 11.2 - 15.7 GM/DL [facility] Hematocrit 24.1 (L) 34.1 - 44.9 % [facility] Specimen Blood Performing Organization Address City/[facility]/Zipcode Phone Number [place] [phone] [place] [address] CENTER PT/aPTT (12/02/2018 5:42 AM PROFESSIONAL TUTOR)Only the most recent of2 resultswithin the time period is included. Protime 14.1 11.7 - 14.7 seconds [facility] INR 1.1 <=5.9 [facility] PTT 39.6 (H) 22.5 - 36.0 seconds [facility] Specimen Blood Narrative Performed At RECOMMENDED COUMADIN/WARFARIN INR THERAPY [facility] RANGES STANDARD DOSE: 2.0 - 3.0 Includes: PROPHYLAXIS for venous thrombosis, systemic embolization; TREATMENT for venous thrombosis and/or pulmonary embolus. HIGH RISK: Target INR is 2.5-3.5 for patients with mechanical heart valves. Performing Organization Address City/State/Zipcode Phone Number [facility] [address] [place] [address] [phone] CENTER MR lower extremity joint only without IV contrast right side (12/01/2018 7:00 PM PROFESSIONAL TUTOR) Specimen Narrative Performed At FINAL REPORT [place] Indication: Right hip pain TECHNIQUE: Multiplanar multisequence [...] External Ris In - 12/02/2018 9:07 AM PROFESSIONAL TUTOR FINAL REPORT Indication: Right hip pain TECHNIQUE: [...] Performing Organization Address City/State/Zipcode Phone Number [facility] XR hip 1 view right (12/01/2018 11:16 AM PROFESSIONAL TUTOR) Specimen Narrative Performed At FINAL REPORT [place] RAD, HIP, 1 VIEW, RIGHT CLINICAL INDICATION: [...] MD Report Verified Date/Time:12/01/2018 11:34:51 Reading Location: [facility] Radiology Reading Room Procedure Note Interface, External Ris In - 12/01/2018 12:16 PM PROFESSIONAL TUTOR FINAL REPORT RAD, HIP, 1 VIEW, RIGHT [...] Report Verified Date/Time: 12/01/2018 11:34:51 Reading Location: [facility] Radiology Reading Room Performing Organization Address [facility] Phone Number [facility] Gentamicin level, trough (11/30/2018 8:57 PM PROFESSIONAL TUTOR) Gentamicin Trough 1.5 (H) 0.5 - 1.0 ug/mL [facility] Specimen Blood Narrative Performed At Dosing [facility] Target Level (mcg/mL) 1-1.5 mg/kg q 8-12 HR 0.5-1.0 3-7 mg/kg q 24 HR<0.5 Before gent dose Performing Organization Address [facility]/Zipcode Phone Number [facility] [address] [place] [address] [phone] CENTER HEMODIALYSIS INPATIENT (11/30/2018 4:43 PM PROFESSIONAL TUTOR) Narrative Performed At Khadijah Leavitt RN 11/30/20187:59 [...] pull original 2.5L. Medicated for pain with [place] X 1 with moderate effect.Patient stated that pain has returned and wants another [place]- not yet due. Pre-meal dinnertime blood glucose not covered as patient did not want to eat dinner yet.Dinner tray sent back to 21T with patient per patient request.Khadijah Leavitt RN Phosphorus (11/29/2018 5:59 AM PROFESSIONAL TUTOR)Only the most recent of6 resultswithin the time period is included. Phosphorus 4.1 2.3 - 4.7 mg/dL [facility] Specimen Blood Performing Organization Address City/State/Zipcode Phone Number [facility] [address] [place] [address] [phone] CENTER HEMODIALYSIS INPATIENT (11/28/2018 11:37 PM PROFESSIONAL TUTOR) Narrative Performed At Yevgeniy Laws RN 11/28/2018 [...] ECHOCARDIOGRAM REPORT - SCAN (11/28/2018 1:20 PM PROFESSIONAL TUTOR) Narrative Performed At CT abdomen/pelvis without iv contrast (11/28/2018 9:19 AM PROFESSIONAL TUTOR) Specimen Narrative Performed At FINAL REPORT [place] ABDOMINAL AND PELVIS CT DATED 11/28/2018 CLINICAL [...] MD Report Verified Date/Time:11/28/2018 09:28:06 Reading Location: [facility] C013Y CT Body Reading Room Procedure Note Interface, External Ris In - 11/28/2018 9:30 AM PROFESSIONAL TUTOR FINAL REPORT ABDOMINAL AND PELVIS CT DATED [...] Number RIS Prothrombin time/INR (11/28/2018 9:01 AM PROFESSIONAL TUTOR)Only the most recent of2 resultswithin the time period is included. Protime 14.5 11.7 - 14.7 seconds [facility] INR 1.1 <=5.9 [facility] Specimen Blood Narrative Performed At RECOMMENDED COUMADIN/WARFARIN INR THERAPY [facility] CENTER RANGES STANDARD DOSE: 2.0 - 3.0 Includes: PROPHYLAXIS for venous thrombosis, systemic embolization; TREATMENT for venous thrombosis and/or pulmonary embolus. HIGH RISK: Target INR is 2.5-3.5 for patients with mechanical heart valves. Performing Organization Address City/State/Zipcode Phone Number [facility] [address] [place] [address] [phone] CENTER Transesophageal echo (11/28/2018 8:58 AM PROFESSIONAL TUTOR) Ejection Fraction [facility] ECHO [facility]ART[facility] MKCKESSON CPA Specimen Narrative Performed At Transesophageal Echocardiography Report (JOSE) [facility] Demographics Patient Name ALYSA FLORIAN Date of Study 11/28/2018 [id number] GenderFemale Visit Number [id number] Ricardo [id number] Room Number 2131 Number Date of Birth1955Referring Physician Mamadou Arreola Age63 year(s)Automotive Technician Randall Jack InterpretingRaciro Jean, Physician Fellow RICARDO [...] in RUPV Doppler. TV structure is normal. Zuwe-zf-mteqrzrc tricuspid regurgitation. Estimated peak systolic PA pressure [...] Doppler. Tricuspid TV structure is normal. Valve Eddz-pu-cxzcmuzk tricuspid regurgitation. Estimated peak systolic PA pressure [...] External Ris In - 11/28/2018 12:33 PM PROFESSIONAL TUTOR Transesophageal Echocardiography Report (JOSE) Demographics Patient Name ALYSA FLORIAN Date of Study 11/28/2018 Gender Female Visit Number [id number] Race Black Room Number 2131 Number Date of 1955 Referring Physician Mamadou Arreola Age 63 year(s) Automotive Technician Randall Jack Interpreting Hugo Jean, Physician Fellow [...] in RUPV Doppler. TV structure is normal. Cbam-ax-slrmatke tricuspid regurgitation. Estimated peak systolic PA pressure [...] Doppler. Tricuspid TV structure is normal. Valve Bjoa-kf-ztjoeahd tricuspid regurgitation. Estimated peak systolic PA pressure [...] TR Gradient: 57.33 mmHg Performing Organization Address City/[facility]/Zipcode Phone Number [facility] MK[facility] CPACS Hepatitis B surface antigen (11/25/2018 3:08 PM PROFESSIONAL TUTOR) hepatitis B Surface Ag Nonreactive Nonreactive [facility] Specimen Blood Performing Organization Address City/[facility]/Zipcode Phone Number [address] [address] CENTER Troponin I (11/24/2018 4:03 AM PROFESSIONAL TUTOR)Only the most recent of4 resultswithin the time period is included. Troponin I 0.31 (HH) 0.00 - 0.03 ng/mL [facility] Specimen Blood Narrative Performed At Troponin I (TnI) levels must be interpreted [facility] in the context of the presenting [...] disease, and persistent tachyarrhythmia. Performing Organization Address City/[facility]/Zipcode Phone Number [address] [address] [phone] [place] Lactic acid, venous, whole blood Daily (11/24/2018 4:03 AM PROFESSIONAL TUTOR)Only the most recent of5 resultswithin the time period is included. Lactate, Venous 0.8 0.5 - 2.2 mmol/L [facility] Specimen Blood Performing Organization Address [facility] Phone Number [address] [address] [place] B-type Natriuretic Factor (BNP) (11/24/2018 4:03 AM PROFESSIONAL TUTOR)Only the most recent of2 resultswithin the time period is included. BNP 190 (H) 0 - 100 pg/mL [facility] Specimen Blood Performing Organization Address [facility] Phone Number [address] [address] [phone] [place] Catheter Tip Culture (11/23/2018 12:54 PM PROFESSIONAL TUTOR) Result No growth [facility] Specimen Other Performing Organization Address [facility] Phone Number [address] [address] [place] IR central venous catheter placement (jugular or femoral) (11/23/2018 12:38 PM PROFESSIONAL TUTOR) Specimen Narrative Performed At FINAL REPORT [facility] Temporary DialysisCatheter Placement (non tunneled, centrally inserted, [...] MD Report Verified Date/Time:11/23/2018 16:53:15 Reading Location: [facility] [address] Angio Body Reading Room Procedure Note Interface, External Ris In - 11/23/2018 4:55 PM PROFESSIONAL TUTOR FINAL REPORT Temporary Dialysis Catheter Placement (non [...] Report Verified Date/Time: 11/23/2018 16:53:15 Reading Location: [place] [address] Angio Body Reading Room Performing Organization Address City/State/Zipcode Phone Number [facility] ECHOCARDIOGRAM REPORT - SCAN (11/23/2018 9:00 AM PROFESSIONAL TUTOR) Narrative Performed At Calcium, Ionized (11/23/2018 7:27 AM PROFESSIONAL TUTOR)Only the most recent of2 resultswithin the time period is included. Calcium, Ion 1.13 1.12 - 1.27 mmol/L [facility] pH, Blood 7.36 [facility] Specimen Blood Performing Organization Address City/State/Zipcode Phone Number [facility] [address] [place] [address] [place] Lipase (11/23/2018 7:00 AM PROFESSIONAL TUTOR) Lipase 12 8 - 78 U/L [facility] Specimen Blood Performing Organization Address City/State/Zipcode Phone Number [facility] [address] [place] [phone] [place] Comprehensive metabolic panel (11/23/2018 7:00 AM PROFESSIONAL TUTOR) Protein, Total 6.0 6.0 - 8.3 gm/dL [facility] Albumin 3.0 (L) 3.5 - 5.0 g/dL [facility] Alkaline Phosphatase 248 (H) 40 - 150 U/L [facility] Total Bilirubin 0.8 0.2 - 1.2 mg/dL [facility] Sodium 137 136 - 145 meq/L [facility] Potassium 3.6 3.5 - 5.1 meq/L [facility] Chloride 101 98 - 107 meq/L [facility] CO2 28 22 - 29 meq/L [facility] BUN 26 (H) 7 - 21 mg/dL [facility] Creatinine 4.09 (H) 0.57 - 1.25 mg/dL [facility] Glucose 201 (H) 70 - 105 mg/dL [facility] Calcium 9.3 8.4 - 10.2 mg/dL [facility] AST 39 (H) 5 - 34 U/L [facility] ALT 18 6 - 55 U/L [facility] EGFR 13Comment: ESTIMATED GFR mL/min/1.73 sq m [facility] IS NOT ACCURATE [facility] CREATININE CLEARANCE IN PREDICTING GLOMERULAR FILTRATION RATE. ESTIMATED GFR IS NOT APPLICABLE FOR DIALYSIS PATIENTS. Specimen Blood Performing Organization Address City/State/Zipcode Phone Number [facility] [address] [place] [address] [phone] CENTER US abdomen complete (11/22/2018 6:56 PM PROFESSIONAL TUTOR) Specimen Narrative Performed At FINAL REPORT [place] INDICATION: Septic Shock, ESRD, Dysuria, Abdominal Pain [...] MD Report Verified Date/Time:11/22/2018 20:30:54 Reading Location: [address] Neuro Reading Room Procedure Note Interface, External Ris In - 11/22/2018 8:33 PM PROFESSIONAL TUTOR FINAL REPORT INDICATION: Septic Shock, ESRD, Dysuria, [...] Report Verified Date/Time: 11/22/2018 20:30:54 Reading Location: [address] Neuro Reading Room Performing Organization Address City/State/Zipcode Phone Number [facility] XR chest 1 view portable / bedside (11/22/2018 4:48 PM PROFESSIONAL TUTOR) Specimen Narrative Performed At FINAL REPORT [place] EXAMINATION: AP PORTABLE CHEST RADIOGRAPH CLINICAL INDICATION: [...] MD Report Verified Date/Time:11/22/2018 17:04:54 Reading Location: [address] Reading Room Procedure Note Interface, External Ris In - 11/22/2018 5:07 PM PROFESSIONAL TUTOR FINAL REPORT EXAMINATION: AP PORTABLE CHEST RADIOGRAPH [...] Report Verified Date/Time: 11/22/2018 17:04:54 Reading Location: [address] Reading Room Performing Organization Address City/State/Zipcode Phone Number [facility] Blood gas, arterial (11/22/2018 4:25 PM PROFESSIONAL TUTOR) pH, Arterial 7.37 7.35 - 7.45 [facility] pCO2, Arterial 42 35 - 45 mmHg [facility] pO2, Arterial 123 (H) 80 - 90 mmHg [facility] O2 Sat, Arterial 98.3 (H) 96.0 - 97.0 % [facility] HCO3, Arterial 24 21 - 29 mmol/L [facility] Base Excess, Arterial -1.7 -2.0 - 3.0 mmol/L [facility] Patient Temperature 37.0 C [facility] FIO2 28.0 % [facility] Specimen Blood, Arterial Performing Organization Address City/State/Zipcode Phone Number [facility] [address] [place] [address] [place] Blood Culture Panel(BioFire) (11/22/2018 4:19 PM PROFESSIONAL TUTOR) LISTERIA MONOCYTOGENES Not detected Not detected [facility] STAPHYLOCOCCUS Detected (A) Not detected [facility] STAPHYLOCOCCUS AUREUS Detected (A) Not detected [facility] Comment: [facility] First line therapy: Vancomycin CENTER ID consultation strongly encouraged. Staphylococcus aureus DETECTED MecA DETECTED Reference Range: Not Detected Streptococcus Not detected Not detected [facility] STREPTOCOCCUS AGALACTIAE Not detected Not detected [facility] (GROUP B) [facility] STREPTOCOCCUS PNEUMONIAE Not detected Not detected [facility] Streptococcus pyogenes (Group Not detected Not detected [facility] A) [facility] ACINETOBACTER BAUMANNII Not detected Not detected [facility] HAEMOPHILUS INFLUENZAE Not detected Not detected [facility] NEISSERIA MENINGITIDIS Not detected Not detected [facility] ENTEROBACTERIACEAE Not detected Not detected [facility] ENTEROBACTER CLOACOE COMPLEX Not detected Not detected [facility] KLEBSIELLA OXYTOCA Not detected Not detected [facility] KLEBSIELLA PNEUMONIAE Not detected Not detected [facility] PROTEUS Not detected Not detected [facility] SERRATIA MARCESCENS Not detected Not detected [facility] SHRUTHI ALBICANS Not detected Not detected [facility] SHRUTHI GLABRATA Not detected Not detected [facility] SHRUTHI KRUSEI Not detected Not detected [facility] SHRUTHI PARAPSILOSIS Not detected Not detected [facility] SHRUTHI TROPICALIS Not detected Not detected [facility] ESCHERICHIA COLI Not detected Not detected [facility] METHICILLIN-RESISTANCE GENE Detected (A) Not detected [facility] VANCOMYCIN-RESISTANCE GENE Not detected [facility] CARBAPENEM-RESISTANCE GENE Not detected [facility] ENTEROCOCCUS Not detected Not detected [facility] PSEUDOMONAS AERUGINOSA Not detected Not detected [facility] Specimen Blood Narrative Performed At Other bacteria and resistance markers not [facility] targeted by this PCR panel cannot be excluded; therefore clinical correlation and follow up of serology, culture results, and other molecular studies is required. The results are not intended to be used as the sole means for clinical diagnosis or patient management decisions. This sample was tested at the [facility] using the LogicSource[employer] Blood Culture ID Panel. It is FDA cleared and has been verified and approved by the [facility] for clinical use. This laboratory is CLIA-certified and [employer] (CAP)-accredited to perform high complexity testing. Performing Organization Address City/[facility] Phone Number [facility] [address] [place] [address] CENTER Procalcitonin (11/22/2018 4:19 PM PROFESSIONAL TUTOR) Procalcitonin >200.00 (HH) <0.05 ng/mL [facility] Specimen Blood Narrative Performed At SEPSIS RISK (ng/mL) [facility] Low:0.05-0.50 Intermediate: 0.51-2.00 High: >=2.01 Performing Organization Address [facility]/Zipcode Phone Number [facility] [address] [place] [address] CENTER Manual Differential (11/22/2018 4:19 PM PROFESSIONAL TUTOR) % Neutros 85 % [facility] % Lymphs 5 % [facility] % Monos 4 % [facility] % Bands 6 0 - 10 % [facility] # Neutros 22.87 (H) 1.56 - 6.13 K/ul [facility] # Lymphs 1.35 1.18 - 3.74 K/ul [facility] # Monos 1.08 (H) 0.24 - 0.36 K/uL [facility] # Bands 1.61 (H) 0.00 - 0.80 K/uL [facility] Total Counted 100 [facility] WBC Morphology Normal [facility] Platelet Morphology Normal [facility] Polychromasia 3+ many [facility] Anisocytosis 1+ few [facility] Microcytes 1+ few [facility] Poikilocytes 2+ moderate [facility] Tear Drop Cells 1+ few [facility] Arnold Cells 1+ few [facility] Artifact Present [facility] Helmet Cells 1+ few [facility] Platelet Conc Adequate [facility] Specimen Blood Narrative Performed At Received comment: [facility] User comments: Slide comments: Performing Organization Address City/[facility]/Zipcode Phone Number [facility] [address] [place] [address] CENTER TSH/Free T4 If Indicated (11/22/2018 4:19 PM PROFESSIONAL TUTOR) TSH 2.43 0.35 - 4.94 uIU/mL [facility] Specimen Blood Performing Organization Address [facility]/Zipcode Phone Number [address] [address] [phone] [place] Oxygen saturation, measured (11/22/2018 4:19 PM PROFESSIONAL TUTOR) O2 Saturation (Measured) 62.7 % [facility] Specimen Blood Narrative Performed At If patient has internal jugular ( IJ) or [facility] subclavian central line or PICC line. Draw from distal port. Label as central venous oxygen. Performing Organization Address [facility] Hospital[facility]t Phone Number [address] [address] [place] Hepatic function panel (11/22/2018 4:19 PM PROFESSIONAL TUTOR) Protein, Total 6.9 6.0 - 8.3 gm/dL [facility] Albumin 3.5 3.5 - 5.0 g/dL [facility] Total Bilirubin 0.9 0.2 - 1.2 mg/dL [facility] Bilirubin, Direct 0.6 (H) 0.1 - 0.5 mg/dL [facility] Alkaline Phosphatase 245 (H) 40 - 150 U/L [facility] AST 51 (H) 5 - 34 U/L [facility] ALT 18 6 - 55 U/L [facility] Specimen Blood Performing Organization Address City/State/Zipcode Phone Number [address] [address] [place] 2D Echo W/Doppler(CW/PW/Color) (11/22/2018 3:51 PM PROFESSIONAL TUTOR) Ejection Fraction [facility] Specimen Narrative Performed At Transthoracic Echocardiography Report (TTE) [facility] thesixtyoneCKESS[facility] Demographics Patient Name ALYSA FLORIAN Date of Study 11/22/2018 [id number] GenderFemale Visit Number [id number] Ricardo [id number] Room Number [id number] Number Date of Birth1955Referring Physician Age63 year(s)Automotive Technician Josué Mayes InterpretingRose Kothari Physician Fellow Racquel [...] hypokinesis. Estimated LVEF by qualitative assessment is rosanpboc-ht-ntaxhzmz reduced (30%) . 2. LV filling pressures [...] timated LVEF by qualitative assessment is mo mveuwrx-wv-xndehezp reduced (30%) . 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 Estimated LVEF by qualitative assessment is acloxpcfy-sv-ejagejzj reduced (30%) . 2. LV filling pressures [...] hypokinesis. Estimated LVEF by qualitative assessment is desffhsuj-cl-gkmqbdal reduced (30%) . Left Atrium [place] size [...] Organization Address City/State/Zipcode Phone Number [facility] HEART[facility] MKCKESSON CPACS after 07/16/2018 Insurance Payer Benefit Plan / Group Subscriber ID Type Phone Address [place] xxxxxxxxx Advance Directives For more information, please contact:[place] [address] [address] [facility] [place] [phone] Code Status Date Activated Date Inactivated Comments Full Code 11/22/2018 3:25 PM This code status was determined by: Patient
--- OUTSIDE RECORDS SUMMARY | 2019-07-17 18:22 | XMS REPORT ---
:1955 Author Organization [facility] Address [address] [place] [address] Care Team Providers Name Role Phone ARELY [...] Value Reference Range Comments CULTURE (BEAKER) (test zsih=0123) No growth in 5 days POCT-GLUCOSE [id number] 09:17:00 Test Item Value Reference Range Comments POC-GLUCOSE METER (BEAKER) 110 mg/dL 70-110 TESTED AT [facility] [address] [facility] (test yyml=1170) [facility] [address] CBC W/PLT COUNT & AUTO [id number] 07:05:00 Test Item Value Reference Range Comments WHITE BLOOD CELL COUNT (BEAKER) (test siat=502) 8.2 K/ L 3.5-10.5 RED BLOOD CELL COUNT (BEAKER) (test rpox=910) 2.79 M/ L 3.93-5.22 HEMOGLOBIN (BEAKER) (test rjyi=902) 7.8 GM/DL 11.2-15.7 HEMATOCRIT (BEAKER) (test mzff=957) 26.4 % 34.1-44.9 MEAN CORPUSCULAR VOLUME (BEAKER) (test ncvw=431) 94.6 fL 79.4-94.8 MEAN CORPUSCULAR HEMOGLOBIN (BEAKER) (test 28.0 pg 25.6-32.2 thkt=840) MEAN CORPUSCULAR HEMOGLOBIN CONC (BEAKER) (test 29.5 GM/DL 32.2-35.5 mmin=878) RED CELL DISTRIBUTION WIDTH (BEAKER) (test 14.5 % 11.7-14.4 iabd=441) PLATELET COUNT (BEAKER) (test ydox=087) 299 K/CU MM 150-450 MEAN PLATELET VOLUME (BEAKER) (test vvlq=370) 10.0 fL 9.4-12.3 NUCLEATED RED BLOOD CELLS (BEAKER) (test 0 /100 WBC 0-0 djeb=747) NEUTROPHILS RELATIVE PERCENT (BEAKER) (test 72 % hnzn=209) LYMPHOCYTES RELATIVE PERCENT (BEAKER) (test 11 % sgpo=159) MONOCYTES RELATIVE PERCENT (BEAKER) (test 10 % gksr=664) EOSINOPHILS RELATIVE PERCENT (BEAKER) (test 5 % eizv=471) BASOPHILS RELATIVE PERCENT (BEAKER) (test 1 % nzwd=498) NEUTROPHILS ABSOLUTE COUNT (BEAKER) (test 5.93 K/ L 1.56-6.13 zxhy=030) LYMPHOCYTES ABSOLUTE COUNT (BEAKER) (test 0.87 K/ L 1.18-3.74 vmlf=817) MONOCYTES ABSOLUTE COUNT (BEAKER) (test 0.84 K/ L 0.24-0.36 fbow=876) EOSINOPHILS ABSOLUTE COUNT (BEAKER) (test 0.44 K/ L 0.04-0.36 vmqj=290) BASOPHILS ABSOLUTE COUNT (BEAKER) (test 0.09 K/ L 0.01-0.08 vkpn=223) IMMATURE GRANULOCYTES-RELATIVE PERCENT (BEAKER) 1 % 0-1 (test qfia=3639) BASIC METABOLIC [id number] 07:04:00 Test Item Value Reference Range Comments SODIUM (BEAKER) (test 139 meq/L 136-145 xdct=482) POTASSIUM (BEAKER) (test 4.3 meq/L 3.5-5.1 rugm=137) CHLORIDE (BEAKER) (test 104 meq/L 98-107 gosu=102) CO2 (BEAKER) (test 26 meq/L 22-29 udgt=730) BLOOD UREA NITROGEN 31 mg/dL 7-21 (BEAKER) (test pjwc=939) CREATININE (BEAKER) (test 5.39 mg/dL 0.57-1.25 lhrp=149) GLUCOSE RANDOM (BEAKER) 83 mg/dL 70-105 (test woxm=103) CALCIUM (BEAKER) (test 9.1 mg/dL 8.4-10.2 tril=576) EGFR (BEAKER) (test 10 mL/min/1.73 sq m ESTIMATED GFR IS NOT llue=3755) ACCURATE CREATININE CLEARANCE IN PREDICTING GLOMERULAR FILTRATION RATE. ESTIMATED GFR IS NOT APPLICABLE FOR DIALYSIS PATIENTS. RAD, ABDOMEN/KUB, 1 VIEW [id number] 04:19:00Reason for exam:->abdominal painFINAL REPORT EXAMINATION: SUPINE [...] Verified Date/ Time: 12/08/2018 04:19:23 Reading Location: [address] Reading Room POCT-GLUCOSE [id number] 21:25:00 Test Item Value Reference Range Comments POC-GLUCOSE METER (BEAKER) 193 mg/dL 70-110 TESTED AT [address] (test nrhz=4859) [facility] [address] POCT-GLUCOSE [id number] 17:52:00 Test Item Value Reference Range Comments POC-GLUCOSE METER (BEAKER) 152 mg/dL 70-110 TESTED AT [address] (test askv=7135) [facility] [address] POCT-GLUCOSE [id number] 14:15:00 Test Item Value Reference Range Comments POC-GLUCOSE METER (BEAKER) 284 mg/dL 70-110 TESTED AT [address] (test fcpx=6819) [facility] [address] POCT-GLUCOSE [id number] 08:09:00 Test Item Value Reference Range Comments POC-GLUCOSE METER (BEAKER) 185 mg/dL 70-110 TESTED AT [address] (test jjrw=1714) [facility] [address] BASIC METABOLIC [id number] 06:30:00 Test Item Value Reference Range Comments SODIUM (BEAKER) (test 137 meq/L 136-145 fctv=166) POTASSIUM (BEAKER) (test 4.2 meq/L 3.5-5.1 feax=919) CHLORIDE (BEAKER) (test 98 meq/L 98-107 uxvw=491) CO2 (BEAKER) (test 28 meq/L 22-29 doqz=011) BLOOD UREA NITROGEN 46 mg/dL 7-21 (BEAKER) (test imxi=404) CREATININE (BEAKER) (test 6.96 mg/dL 0.57-1.25 edxb=748) GLUCOSE RANDOM (BEAKER) 131 mg/dL 70-105 (test bvax=462) CALCIUM (BEAKER) (test 9.1 mg/dL 8.4-10.2 ubxl=316) EGFR (BEAKER) (test 7 mL/min/1.73 sq m ESTIMATED GFR IS NOT edaf=3809) ACCURATE CREATININE CLEARANCE IN PREDICTING GLOMERULAR FILTRATION RATE. ESTIMATED GFR IS NOT APPLICABLE FOR DIALYSIS PATIENTS. [id number] 06:29:00 Test Item Value Reference Range Comments MAGNESIUM (BEAKER) (test acdb=466) 2.2 mg/dL 1.6-2.6 CBC W/PLT COUNT & AUTO [id number] 05:57:00 Test Item Value Reference Range Comments WHITE BLOOD CELL COUNT (BEAKER) (test xeus=431) 11.4 K/ L 3.5-10.5 RED BLOOD CELL COUNT (BEAKER) (test ydxl=719) 2.56 M/ L 3.93-5.22 HEMOGLOBIN (BEAKER) (test xmsh=942) 7.2 GM/DL 11.2-15.7 HEMATOCRIT (BEAKER) (test vyrt=078) 23.4 % 34.1-44.9 MEAN CORPUSCULAR VOLUME (BEAKER) (test crgv=831) 91.4 fL 79.4-94.8 MEAN CORPUSCULAR HEMOGLOBIN (BEAKER) (test 28.1 pg 25.6-32.2 nnxo=977) MEAN CORPUSCULAR HEMOGLOBIN CONC (BEAKER) (test 30.8 GM/DL 32.2-35.5 tbox=531) RED CELL DISTRIBUTION WIDTH (BEAKER) (test 14.6 % 11.7-14.4 tkoi=000) PLATELET COUNT (BEAKER) (test ioge=534) 246 K/CU MM 150-450 MEAN PLATELET VOLUME (BEAKER) (test skpr=432) 9.8 fL 9.4-12.3 NUCLEATED RED BLOOD CELLS (BEAKER) (test 0 /100 WBC 0-0 cazu=005) NEUTROPHILS RELATIVE PERCENT (BEAKER) (test 82 % mewf=458) LYMPHOCYTES RELATIVE PERCENT (BEAKER) (test 6 % wvyg=000) MONOCYTES RELATIVE PERCENT (BEAKER) (test 8 % lqio=976) EOSINOPHILS RELATIVE PERCENT (BEAKER) (test 3 % tshc=389) BASOPHILS RELATIVE PERCENT (BEAKER) (test 1 % ifjd=700) NEUTROPHILS ABSOLUTE COUNT (BEAKER) (test 9.41 K/ L 1.56-6.13 psoa=551) LYMPHOCYTES ABSOLUTE COUNT (BEAKER) (test 0.70 K/ L 1.18-3.74 yyem=960) MONOCYTES ABSOLUTE COUNT (BEAKER) (test 0.89 K/ L 0.24-0.36 wmhh=434) EOSINOPHILS ABSOLUTE COUNT (BEAKER) (test 0.31 K/ L 0.04-0.36 hihe=582) BASOPHILS ABSOLUTE COUNT (BEAKER) (test 0.06 K/ L 0.01-0.08 osrs=736) IMMATURE GRANULOCYTES-RELATIVE PERCENT (BEAKER) 1 % 0-1 (test ospm=0339) POCT-GLUCOSE [id number] 21:35:00 Test Item Value Reference Range Comments POC-GLUCOSE METER (BEAKER) 249 mg/dL 70-110 TESTED AT [place] [id number] [facility] (test tbie=8000) [facility] [address] POCT-GLUCOSE [id number] 17:49:00 Test Item Value Reference Range Comments POC-GLUCOSE METER (BEAKER) 168 mg/dL 70-110 TESTED AT [place] [id number] [facility] (test pihp=2934) [facility] [address] [employer], MULTI, PHARM, [id number] 16:00:00FINAL REPORT PROCEDURE: Rest/Stress MYOCARDIAL PERFUSION SPECT with regadenoson\\XA9\\ CPT CODE: 24045 INDICATION: New onset heart failure, intermediate risk [...] tracer distribution is normal. 6. No previous [facility] study for comparison. Signed: Dariana Jones MDReport Verified Date/Time: 12/06/2018 16:00:51 Reading Location: [address] [address] Reading Room Electronically signed by: DARIANA JONES MD on 2018 04:00 PMANG, TUNNELED CATHETER [id number] 14:29:00Reason for exam :->Tunneled cath for dialysisFINAL [...] Date/Time: 12/06/2018 14:29:30 Reading Location : [address] Body Reading Room POCT-GLUCOSE [id number] 12:31:00 Test Item Value Reference Range Comments POC-GLUCOSE METER (BEAKER) 187 mg/dL 70-110 TESTED AT [address] (test hiwj=5077) [facility] [address] POCT-GLUCOSE [id number] 11:21:00 Test Item Value Reference Range Comments POC-GLUCOSE METER (BEAKER) 165 mg/dL 70-110 TESTED AT [facility] [address] [facility] (test ebve=5121) [facility] [address] POCT-GLUCOSE [id number] 06:17:00 Test Item Value Reference Range Comments POC-GLUCOSE METER (BEAKER) 108 mg/dL 70-110 TESTED AT [facility] [address] [facility] (test vwza=0072) [facility] [address] VANCOMYCIN LEVEL, [id number] 02:03:00 Test Item Value Reference Range Comments VANCOMYCIN RANDOM (BEAKER) (test stcd=729) 18.7 ug/mL Reference Range: No NormalsCBC W/PLT COUNT & AUTO [id number] 01: 48:00 Test Item Value Reference Range Comments WHITE BLOOD CELL COUNT (BEAKER) (test fwha=615) 12.1 K/ L 3.5-10.5 RED BLOOD CELL COUNT (BEAKER) (test tjcc=418) 2.76 M/ L 3.93-5.22 HEMOGLOBIN (BEAKER) (test xuiz=641) 7.7 GM/DL 11.2-15.7 HEMATOCRIT (BEAKER) (test xfux=596) 25.1 % 34.1-44.9 MEAN CORPUSCULAR VOLUME (BEAKER) (test cnpd=930) 90.9 fL 79.4-94.8 MEAN CORPUSCULAR HEMOGLOBIN (BEAKER) (test 27.9 pg 25.6-32.2 jqyx=839) MEAN CORPUSCULAR HEMOGLOBIN CONC (BEAKER) (test 30.7 GM/DL 32.2-35.5 aayk=819) RED CELL DISTRIBUTION WIDTH (BEAKER) (test 14.6 % 11.7-14.4 dcil=504) PLATELET COUNT (BEAKER) (test ovkk=270) 231 K/CU MM 150-450 MEAN PLATELET VOLUME (BEAKER) (test zeaw=049) 10.0 fL 9.4-12.3 NUCLEATED RED BLOOD CELLS (BEAKER) (test 0 /100 WBC 0-0 gqmd=387) NEUTROPHILS RELATIVE PERCENT (BEAKER) (test 84 % korw=943) LYMPHOCYTES RELATIVE PERCENT (BEAKER) (test 7 % rhii=879) MONOCYTES RELATIVE PERCENT (BEAKER) (test 6 % qzac=906) EOSINOPHILS RELATIVE PERCENT (BEAKER) (test 2 % hyux=453) BASOPHILS RELATIVE PERCENT (BEAKER) (test 1 % kspc=186) NEUTROPHILS ABSOLUTE COUNT (BEAKER) (test 10.17 K/ L 1.56-6.13 nqsg=243) LYMPHOCYTES ABSOLUTE COUNT (BEAKER) (test 0.79 K/ L 1.18-3.74 zzoi=659) MONOCYTES ABSOLUTE COUNT (BEAKER) (test 0.73 K/ L 0.24-0.36 judc=940) EOSINOPHILS ABSOLUTE COUNT (BEAKER) (test 0.24 K/ L 0.04-0.36 pezk=171) BASOPHILS ABSOLUTE COUNT (BEAKER) (test 0.08 K/ L 0.01-0.08 smel=965) IMMATURE GRANULOCYTES-RELATIVE PERCENT (BEAKER) 0 % 0-1 (test ldew=3275) BASIC METABOLIC [id number] 01:43:00 Test Item Value Reference Range Comments SODIUM (BEAKER) (test 136 meq/L 136-145 ciej=267) POTASSIUM (BEAKER) (test 4.2 meq/L 3.5-5.1 dhpf=017) CHLORIDE (BEAKER) (test 99 meq/L 98-107 pgrl=767) CO2 (BEAKER) (test 27 meq/L 22-29 btrb=142) BLOOD UREA NITROGEN 29 mg/dL 7-21 (BEAKER) (test jour=498) CREATININE (BEAKER) (test 5.09 mg/dL 0.57-1.25 mifj=287) GLUCOSE RANDOM (BEAKER) 110 mg/dL 70-105 (test zplh=877) CALCIUM (BEAKER) (test 9.0 mg/dL 8.4-10.2 ydbf=191) EGFR (BEAKER) (test 10 mL/min/1.73 sq m ESTIMATED GFR IS NOT ycse=9183) ACCURATE CREATININE CLEARANCE IN PREDICTING GLOMERULAR FILTRATION RATE. ESTIMATED GFR IS NOT APPLICABLE FOR DIALYSIS PATIENTS. [id number] 01:34:00 Test Item Value Reference Range Comments PARTIAL THROMBOPLASTIN TIME (BEAKER) (test 85.3 seconds 22.5-36.0 kgmm=235) POCT-GLUCOSE [id number] 21:26:00 Test Item Value Reference Range Comments POC-GLUCOSE METER (BEAKER) 154 mg/dL 70-110 TESTED AT [address] (test udil=7925) [facility] [address] POCT-GLUCOSE [id number] 16:29:00 Test Item Value Reference Range Comments POC-GLUCOSE METER (BEAKER) 121 mg/dL 70-110 TESTED AT [address] (test rdko=3458) [facility] [address] POCT-GLUCOSE [id number] 16:26:00 Test Item Value Reference Range Comments POC-GLUCOSE METER (BEAKER) 119 mg/dL 70-110 TESTED AT [address] (test iwzr=8670) [facility] [address] [id number] 08:47:00 Test Item Value Reference Range Comments PARTIAL THROMBOPLASTIN TIME (BEAKER) (test 85.2 seconds 22.5-36.0 anht=042) BASIC METABOLIC [id number] 08:29:00 Test Item Value Reference Range Comments SODIUM (BEAKER) (test 133 meq/L 136-145 hzcx=506) POTASSIUM (BEAKER) (test 4.7 meq/L 3.5-5.1 zbnf=582) CHLORIDE (BEAKER) (test 93 meq/L 98-107 iprz=727) CO2 (BEAKER) (test 24 meq/L 22-29 ejvu=878) BLOOD UREA NITROGEN 64 mg/dL 7-21 (BEAKER) (test naro=765) CREATININE (BEAKER) (test 8.39 mg/dL 0.57-1.25 oqcz=414) GLUCOSE RANDOM (BEAKER) 117 mg/dL 70-105 (test pbje=936) CALCIUM (BEAKER) (test 8.7 mg/dL 8.4-10.2 hsov=667) EGFR (BEAKER) (test 6 mL/min/1.73 sq m ESTIMATED GFR IS NOT drcw=5539) ACCURATE CREATININE CLEARANCE IN PREDICTING GLOMERULAR FILTRATION RATE. ESTIMATED GFR IS NOT APPLICABLE FOR DIALYSIS PATIENTS. CBC W/PLT COUNT & AUTO [id number] 08:25:00 Test Item Value Reference Range Comments WHITE BLOOD CELL COUNT (BEAKER) (test wmza=722) 15.1 K/ L 3.5-10.5 RED BLOOD CELL COUNT (BEAKER) (test uier=615) 2.84 M/ L 3.93-5.22 HEMOGLOBIN (BEAKER) (test ejpz=873) 7.8 GM/DL 11.2-15.7 HEMATOCRIT (BEAKER) (test swnc=402) 25.8 % 34.1-44.9 MEAN CORPUSCULAR VOLUME (BEAKER) (test miho=608) 90.8 fL 79.4-94.8 MEAN CORPUSCULAR HEMOGLOBIN (BEAKER) (test 27.5 pg 25.6-32.2 dfqe=517) MEAN CORPUSCULAR HEMOGLOBIN CONC (BEAKER) (test 30.2 GM/DL 32.2-35.5 gvkn=750) RED CELL DISTRIBUTION WIDTH (BEAKER) (test 14.7 % 11.7-14.4 ursx=583) PLATELET COUNT (BEAKER) (test rliq=624) 258 K/CU MM 150-450 MEAN PLATELET VOLUME (BEAKER) (test pbkx=966) 10.4 fL 9.4-12.3 NUCLEATED RED BLOOD CELLS (BEAKER) (test 0 /100 WBC 0-0 dfwg=168) NEUTROPHILS RELATIVE PERCENT (BEAKER) (test 83 % eblp=804) LYMPHOCYTES RELATIVE PERCENT (BEAKER) (test 8 % mrvu=594) MONOCYTES RELATIVE PERCENT (BEAKER) (test 6 % onjh=207) EOSINOPHILS RELATIVE PERCENT (BEAKER) (test 2 % mwbh=082) BASOPHILS RELATIVE PERCENT (BEAKER) (test 1 % csfs=439) NEUTROPHILS ABSOLUTE COUNT (BEAKER) (test 12.58 K/ L 1.56-6.13 uoci=649) LYMPHOCYTES ABSOLUTE COUNT (BEAKER) (test 1.18 K/ L 1.18-3.74 umoz=648) MONOCYTES ABSOLUTE COUNT (BEAKER) (test 0.87 K/ L 0.24-0.36 tqaj=273) EOSINOPHILS ABSOLUTE COUNT (BEAKER) (test 0.30 K/ L 0.04-0.36 usqy=245) BASOPHILS ABSOLUTE COUNT (BEAKER) (test 0.08 K/ L 0.01-0.08 hlvr=485) IMMATURE GRANULOCYTES-RELATIVE PERCENT (BEAKER) 1 % 0-1 (test rvug=7362) [id number] 23:58:00 Test Item Value Reference Range Comments PARTIAL THROMBOPLASTIN TIME (BEAKER) (test 92.6 seconds 22.5-36.0 ryfq=010) POCT-GLUCOSE [id number] 20:54:00 Test Item Value Reference Range Comments POC-GLUCOSE METER (BEAKER) 151 mg/dL 70-110 TESTED AT [address] (test dwnn=5008) [facility] [address] POCT-GLUCOSE [id number] 17:04:00 Test Item Value Reference Range Comments POC-GLUCOSE METER (BEAKER) 158 mg/dL 70-110 TESTED AT [address] (test gxgq=8490) [place] [address] [id number] 16:25:00 Test Item Value Reference Range Comments PARTIAL THROMBOPLASTIN TIME (BEAKER) (test 75.9 seconds 22.5-36.0 nesd=251) POCT-GLUCOSE [id number] 12:34:00 Test Item Value Reference Range Comments POC-GLUCOSE METER (BEAKER) 183 mg/dL 70-110 TESTED AT [address] (test jfpj=5739) [place] [id number] POCT-GLUCOSE [id number] 12:00:00 Test Item Value Reference Range Comments POC-GLUCOSE METER (BEAKER) 175 mg/dL 70-110 TESTED AT [address] (test ukpz=4098) [place] [id number] 10:17:00 Test Item Value Reference Range Comments PARTIAL THROMBOPLASTIN TIME (BEAKER) (test 32.1 seconds 22.5-36.0 ayko=197) Prior to initiating heparinBASIC METABOLIC [id number] 08:20:00 Test Item Value Reference Range Comments SODIUM (BEAKER) (test 134 meq/L 136-145 czia=875) POTASSIUM (BEAKER) (test 4.3 meq/L 3.5-5.1 gtrk=481) CHLORIDE (BEAKER) (test 98 meq/L 98-107 ofcv=330) CO2 (BEAKER) (test 26 meq/L 22-29 usrg=071) BLOOD UREA NITROGEN 48 mg/dL 7-21 (BEAKER) (test isqm=909) CREATININE (BEAKER) (test 6.48 mg/dL 0.57-1.25 iclz=397) GLUCOSE RANDOM (BEAKER) 124 mg/dL 70-105 (test glcj=572) CALCIUM (BEAKER) (test 9.2 mg/dL 8.4-10.2 lklg=973) EGFR (BEAKER) (test 8 mL/min/1.73 sq m ESTIMATED GFR IS NOT abfp=1248) ACCURATE CREATININE CLEARANCE IN PREDICTING GLOMERULAR FILTRATION RATE. ESTIMATED GFR IS NOT APPLICABLE FOR DIALYSIS PATIENTS. VANCOMYCIN LEVEL, [id number] 08:06:00 Test Item Value Reference Range Comments VANCOMYCIN RANDOM (BEAKER) (test yieu=226) 28.6 ug/mL Reference Range: No NormalsCBC W/PLT COUNT & AUTO [id number] 07: 14:00 Test Item Value Reference Range Comments WHITE BLOOD CELL COUNT (BEAKER) (test spot=248) 13.3 K/ L 3.5-10.5 RED BLOOD CELL COUNT (BEAKER) (test scei=305) 2.89 M/ L 3.93-5.22 HEMOGLOBIN (BEAKER) (test gsce=325) 7.9 GM/DL 11.2-15.7 HEMATOCRIT (BEAKER) (test wkul=471) 26.4 % 34.1-44.9 MEAN CORPUSCULAR VOLUME (BEAKER) (test ozfn=437) 91.3 fL 79.4-94.8 MEAN CORPUSCULAR HEMOGLOBIN (BEAKER) (test 27.3 pg 25.6-32.2 cloy=729) MEAN CORPUSCULAR HEMOGLOBIN CONC (BEAKER) (test 29.9 GM/DL 32.2-35.5 bqid=844) RED CELL DISTRIBUTION WIDTH (BEAKER) (test 15.2 % 11.7-14.4 venb=154) PLATELET COUNT (BEAKER) (test srzf=587) 242 K/CU MM 150-450 MEAN PLATELET VOLUME (BEAKER) (test bufa=412) 10.2 fL 9.4-12.3 NUCLEATED RED BLOOD CELLS (BEAKER) (test 0 /100 WBC 0-0 sqyj=180) NEUTROPHILS RELATIVE PERCENT (BEAKER) (test 82 % njtu=204) LYMPHOCYTES RELATIVE PERCENT (BEAKER) (test 8 % fsrm=337) MONOCYTES RELATIVE PERCENT (BEAKER) (test 6 % oqwk=070) EOSINOPHILS RELATIVE PERCENT (BEAKER) (test 2 % kzsl=431) BASOPHILS RELATIVE PERCENT (BEAKER) (test 1 % bzhd=563) NEUTROPHILS ABSOLUTE COUNT (BEAKER) (test 10.92 K/ L 1.56-6.13 zwae=998) LYMPHOCYTES ABSOLUTE COUNT (BEAKER) (test 1.06 K/ L 1.18-3.74 laea=767) MONOCYTES ABSOLUTE COUNT (BEAKER) (test 0.84 K/ L 0.24-0.36 nzjj=381) EOSINOPHILS ABSOLUTE COUNT (BEAKER) (test 0.31 K/ L 0.04-0.36 xyla=717) BASOPHILS ABSOLUTE COUNT (BEAKER) (test 0.08 K/ L 0.01-0.08 zvlz=705) IMMATURE GRANULOCYTES-RELATIVE PERCENT (BEAKER) 1 % 0-1 (test rqwx=4702) POCT-GLUCOSE [id number] 21:22:00 Test Item Value Reference Range Comments POC-GLUCOSE METER (BEAKER) 209 mg/dL 70-110 TESTED AT [address] (test radd=2944) [place] [address] POCT-GLUCOSE [id number] 17:40:00 Test Item Value Reference Range Comments POC-GLUCOSE METER (BEAKER) 213 mg/dL 70-110 TESTED AT [address] (test xsxw=3034) [place] [address] POCT-GLUCOSE [id number] 12:28:00 Test Item Value Reference Range Comments POC-GLUCOSE METER (BEAKER) 298 mg/dL 70-110 TESTED AT [address] (test xvsz=9918) [place] [address] BLOOD [id number] 11:01:00 Test Item Value Reference Range Comments CULTURE (AKER) (test emdu=8001) No growth in 5 days POCT-GLUCOSE [id number] 08:43:00 Test Item Value Reference Range Comments POC-GLUCOSE METER (BEAKER) 147 mg/dL 70-110 TESTED AT [address] (test cdlq=9266) [place] [address] CBC W/PLT COUNT & AUTO [id number] 07:17:00 Test Item Value Reference Range Comments WHITE BLOOD CELL COUNT (BEAKER) (test swei=339) 12.1 K/ L 3.5-10.5 RED BLOOD CELL COUNT (BEAKER) (test njze=030) 2.54 M/ L 3.93-5.22 HEMOGLOBIN (BEAKER) (test olmz=410) 6.9 GM/DL 11.2-15.7 HEMATOCRIT (BEAKER) (test daid=830) 24.0 % 34.1-44.9 MEAN CORPUSCULAR VOLUME (BEAKER) (test falz=165) 94.5 fL 79.4-94.8 MEAN CORPUSCULAR HEMOGLOBIN (BEAKER) (test 27.2 pg 25.6-32.2 zmku=124) MEAN CORPUSCULAR HEMOGLOBIN CONC (BEAKER) (test 28.8 GM/DL 32.2-35.5 dzch=383) RED CELL DISTRIBUTION WIDTH (BEAKER) (test 14.9 % 11.7-14.4 tdcf=969) PLATELET COUNT (BEAKER) (test kzxk=325) 253 K/CU MM 150-450 MEAN PLATELET VOLUME (BEAKER) (test cvht=738) 10.0 fL 9.4-12.3 NUCLEATED RED BLOOD CELLS (BEAKER) (test 0 /100 WBC 0-0 nxwb=370) NEUTROPHILS RELATIVE PERCENT (BEAKER) (test 83 % wemg=548) LYMPHOCYTES RELATIVE PERCENT (BEAKER) (test 7 % onnd=760) MONOCYTES RELATIVE PERCENT (BEAKER) (test 6 % kqlr=255) EOSINOPHILS RELATIVE PERCENT (BEAKER) (test 3 % okjh=211) BASOPHILS RELATIVE PERCENT (BEAKER) (test 1 % jdxr=286) NEUTROPHILS ABSOLUTE COUNT (BEAKER) (test 10.04 K/ L 1.56-6.13 ekkp=457) LYMPHOCYTES ABSOLUTE COUNT (BEAKER) (test 0.88 K/ L 1.18-3.74 uymo=597) MONOCYTES ABSOLUTE COUNT (BEAKER) (test 0.66 K/ L 0.24-0.36 ddzo=110) EOSINOPHILS ABSOLUTE COUNT (BEAKER) (test 0.34 K/ L 0.04-0.36 ejes=995) BASOPHILS ABSOLUTE COUNT (BEAKER) (test 0.09 K/ L 0.01-0.08 wono=389) IMMATURE GRANULOCYTES-RELATIVE PERCENT (BEAKER) 1 % 0-1 (test xxph=1887) BASIC METABOLIC [id number] 07:02:00 Test Item Value Reference Range Comments SODIUM (BEAKER) (test 134 meq/L 136-145 tffs=361) POTASSIUM (BEAKER) (test 4.2 meq/L 3.5-5.1 Specimen slightly gykz=184) hemolyzed CHLORIDE (BEAKER) (test 99 meq/L 98-107 ttgf=684) CO2 (BEAKER) (test 25 meq/L 22-29 zlno=294) BLOOD UREA NITROGEN 29 mg/dL 7-21 (BEAKER) (test vpxu=447) CREATININE (BEAKER) (test 4.76 mg/dL 0.57-1.25 Specimen slightly wvas=210) hemolyzed GLUCOSE RANDOM (BEAKER) 116 mg/dL 70-105 (test tfqu=669) CALCIUM (BEAKER) (test 8.6 mg/dL 8.4-10.2 qbri=306) EGFR (BEAKER) (test 11 mL/min/1.73 sq m ESTIMATED GFR IS NOT eqin=6098) ACCURATE CREATININE CLEARANCE IN PREDICTING GLOMERULAR FILTRATION RATE. ESTIMATED GFR IS NOT APPLICABLE FOR DIALYSIS PATIENTS. BLOOD [id number] 11:01:00 Test Item Value Reference Range Comments CULTURE (BEAKER) (test glvh=9901) No growth in 5 days MR, EXTREMITY, LOWER, JOINT, WITHOUT CONTRAST, [id number] 09:05:00Reason for exam:->For hip painFINAL REPORT Indication: [...] MDReport Verified Date/Time: 12/02/2018 09:05:25 Reading Location: [facility] B1 [id number] Ortho Consult Reading Room Electronically signed by: JAYSON SHORT M.D. on 2018 09:05 AMHEMOGLOBIN AND [id number] 08:39:00 Test Item Value Reference Range Comments HEMOGLOBIN (BEAKER) (test vhlo=626) 7.2 GM/DL 11.2-15.7 HEMATOCRIT (BEAKER) (test guxp=932) 24.1 % 34.1-44.9 POCT-GLUCOSE [id number] 07:54:00 Test Item Value Reference Range Comments POC-GLUCOSE METER (BEAKER) 186 mg/dL 70-110 TESTED AT [facility] [address] [facility] (test yktm=5219) [facility] [address] CBC W/PLT COUNT & AUTO [id number] 07:22:00 Test Item Value Reference Range Comments WHITE BLOOD CELL COUNT (BEAKER) (test zune=751) 13.3 K/ L 3.5-10.5 RED BLOOD CELL COUNT (BEAKER) (test smkc=147) 2.47 M/ L 3.93-5.22 HEMOGLOBIN (BEAKER) (test jwdr=303) 6.8 GM/DL 11.2-15.7 HEMATOCRIT (BEAKER) (test ndqr=670) 23.2 % 34.1-44.9 MEAN CORPUSCULAR VOLUME (BEAKER) (test jaki=666) 93.9 fL 79.4-94.8 MEAN CORPUSCULAR HEMOGLOBIN (BEAKER) (test 27.5 pg 25.6-32.2 mpti=787) MEAN CORPUSCULAR HEMOGLOBIN CONC (BEAKER) (test 29.3 GM/DL 32.2-35.5 oiiv=670) RED CELL DISTRIBUTION WIDTH (BEAKER) (test 15.2 % 11.7-14.4 uxik=471) PLATELET COUNT (BEAKER) (test jzsn=123) 304 K/CU MM 150-450 MEAN PLATELET VOLUME (BEAKER) (test zkop=776) 9.9 fL 9.4-12.3 NUCLEATED RED BLOOD CELLS (BEAKER) (test 0 /100 WBC 0-0 vgij=419) NEUTROPHILS RELATIVE PERCENT (BEAKER) (test 84 % npwd=423) LYMPHOCYTES RELATIVE PERCENT (BEAKER) (test 7 % pxju=657) MONOCYTES RELATIVE PERCENT (BEAKER) (test 5 % feub=718) EOSINOPHILS RELATIVE PERCENT (BEAKER) (test 3 % lzsc=376) BASOPHILS RELATIVE PERCENT (BEAKER) (test 0 % mszf=230) NEUTROPHILS ABSOLUTE COUNT (BEAKER) (test 11.17 K/ L 1.56-6.13 pvmu=419) LYMPHOCYTES ABSOLUTE COUNT (BEAKER) (test 0.95 K/ L 1.18-3.74 xtrv=931) MONOCYTES ABSOLUTE COUNT (BEAKER) (test 0.70 K/ L 0.24-0.36 gujd=603) EOSINOPHILS ABSOLUTE COUNT (BEAKER) (test 0.37 K/ L 0.04-0.36 pwqr=313) BASOPHILS ABSOLUTE COUNT (BEAKER) (test 0.04 K/ L 0.01-0.08 imum=131) IMMATURE GRANULOCYTES-RELATIVE PERCENT (BEAKER) 1 % 0-1 (test yxvg=6270) POCT-GLUCOSE [id number] 07:10:00 Test Item Value Reference Range Comments POC-GLUCOSE METER (BEAKER) 177 mg/dL 70-110 TESTED AT [facility] [address] [facility] (test wgvi=1568) [facility] [address] BASIC METABOLIC [id number] 06:52:00 Test Item Value Reference Range Comments SODIUM (BEAKER) (test 137 meq/L 136-145 shbh=060) POTASSIUM (BEAKER) (test 4.0 meq/L 3.5-5.1 dmuc=475) CHLORIDE (BEAKER) (test 97 meq/L 98-107 umdr=357) CO2 (BEAKER) (test 30 meq/L 22-29 gknt=469) BLOOD UREA NITROGEN 46 mg/dL 7-21 (BEAKER) (test fmcz=946) CREATININE (BEAKER) (test 6.47 mg/dL 0.57-1.25 awbj=802) GLUCOSE RANDOM (BEAKER) 148 mg/dL 70-105 (test nvgo=620) CALCIUM (BEAKER) (test 9.1 mg/dL 8.4-10.2 jgsw=836) EGFR (BEAKER) (test 8 mL/min/1.73 sq m ESTIMATED GFR IS NOT ksnl=8763) ACCURATE CREATININE CLEARANCE IN PREDICTING GLOMERULAR FILTRATION RATE. ESTIMATED GFR IS NOT APPLICABLE FOR DIALYSIS PATIENTS. VANCOMYCIN LEVEL, [id number] 06:43:00 Test Item Value Reference Range Comments VANCOMYCIN RANDOM (BEAKER) (test eiok=866) 19.0 ug/mL Reference Range: No [id number] 06:25:00 Test Item Value Reference Range Comments PROTIME (BEAKER) (test xsie=318) 14.1 seconds 11.7-14.7 INR (BEAKER) (test eltb=983) 1.1 <=5.9 PARTIAL THROMBOPLASTIN TIME (BEAKER) (test 39.6 seconds 22.5-36.0 maka=508) RECOMMENDED COUMADIN/WARFARIN INR THERAPY RANGESSTANDARD DOSE: 2.0 - 3.0 Includes: PROPHYLAXIS forvenous thrombosis, systemic embolization; TREATMENT for venous thrombosis and/or pulmonary embolus.HIGH RISK: Target INR is 2.5-3.5 for patients with mechanical heart valves.POCT-GLUCOSE [id number] 23:37:00 Test Item Value Reference Range Comments POC-GLUCOSE METER (BEAKER) 258 mg/dL 70-110 TESTED AT [address] (test dwpt=9484) [place] [address] POCT-GLUCOSE [id number] 12:31:00 Test Item Value Reference Range Comments POC-GLUCOSE METER (BEAKER) 184 mg/dL 70-110 TESTED AT [address] (test dulr=9517) [place] [address] BASIC METABOLIC [id number] 12:27:00 Test Item Value Reference Range Comments SODIUM (BEAKER) (test 136 meq/L 136-145 czwg=130) POTASSIUM (BEAKER) (test 4.0 meq/L 3.5-5.1 uqve=928) CHLORIDE (BEAKER) (test 99 meq/L 98-107 arpg=230) CO2 (BEAKER) (test 26 meq/L 22-29 pgpw=994) BLOOD UREA NITROGEN 29 mg/dL 7-21 (BEAKER) (test dlos=211) CREATININE (BEAKER) (test 4.92 mg/dL 0.57-1.25 tyil=076) GLUCOSE RANDOM (BEAKER) 129 mg/dL 70-105 (test qxmk=842) CALCIUM (BEAKER) (test 9.0 mg/dL 8.4-10.2 dfcv=105) EGFR (BEAKER) (test 11 mL/min/1.73 sq m ESTIMATED GFR IS NOT tpmp=0899) ACCURATE CREATININE CLEARANCE IN PREDICTING GLOMERULAR FILTRATION RATE. ESTIMATED GFR IS NOT APPLICABLE FOR DIALYSIS PATIENTS. CBC W/PLT COUNT & AUTO [id number] 12:20:00 Test Item Value Reference Range Comments WHITE BLOOD CELL COUNT (BEAKER) (test wxiq=263) 14.6 K/ L 3.5-10.5 RED BLOOD CELL COUNT (BEAKER) (test stkh=534) 2.69 M/ L 3.93-5.22 HEMOGLOBIN (BEAKER) (test qyfv=188) 7.4 GM/DL 11.2-15.7 HEMATOCRIT (BEAKER) (test cjot=028) 25.1 % 34.1-44.9 MEAN CORPUSCULAR VOLUME (BEAKER) (test ttak=313) 93.3 fL 79.4-94.8 MEAN CORPUSCULAR HEMOGLOBIN (BEAKER) (test 27.5 pg 25.6-32.2 dodh=366) MEAN CORPUSCULAR HEMOGLOBIN CONC (BEAKER) (test 29.5 GM/DL 32.2-35.5 zucy=135) RED CELL DISTRIBUTION WIDTH (BEAKER) (test 15.5 % 11.7-14.4 zkvt=403) PLATELET COUNT (BEAKER) (test xjvh=053) 295 K/CU MM 150-450 MEAN PLATELET VOLUME (BEAKER) (test enqz=957) 9.8 fL 9.4-12.3 NUCLEATED RED BLOOD CELLS (BEAKER) (test 0 /100 WBC 0-0 pfxc=578) NEUTROPHILS RELATIVE PERCENT (BEAKER) (test 83 % rrnl=605) LYMPHOCYTES RELATIVE PERCENT (BEAKER) (test 8 % bedq=451) MONOCYTES RELATIVE PERCENT (BEAKER) (test 6 % ysod=986) EOSINOPHILS RELATIVE PERCENT (BEAKER) (test 2 % irvc=563) BASOPHILS RELATIVE PERCENT (BEAKER) (test 1 % xnip=167) NEUTROPHILS ABSOLUTE COUNT (BEAKER) (test 12.12 K/ L 1.56-6.13 fnwq=076) LYMPHOCYTES ABSOLUTE COUNT (BEAKER) (test 1.19 K/ L 1.18-3.74 mgcb=744) MONOCYTES ABSOLUTE COUNT (BEAKER) (test 0.81 K/ L 0.24-0.36 rkla=687) EOSINOPHILS ABSOLUTE COUNT (BEAKER) (test 0.31 K/ L 0.04-0.36 fuut=986) BASOPHILS ABSOLUTE COUNT (BEAKER) (test 0.07 K/ L 0.01-0.08 qkjc=338) IMMATURE GRANULOCYTES-RELATIVE PERCENT (BEAKER) 1 % 0-1 (test nudj=7116) RAD, HIP, 1 VIEW, [id number] 11:34:00Reason for exam:->R hip painShould this be [...] MDReport Verified Date/Time: 2018 11:34:51 Reading Location: [facility] Radiology Reading Room POCT- GLUCOSE [id number] 08:01:00 Test Item Value Reference Range Comments POC-GLUCOSE METER (FARRAH) 189 mg/dL 70-110 TESTED AT [facility] [address] [facility] (test favp=0911) [facility] [address] VANCOMYCIN LEVEL, [id number] 06:44:00 Test Item Value Reference Range Comments VANCOMYCIN RANDOM (BEAKER) (test eqwp=717) 19.8 ug/mL Reference Range: No NormalsGENTAMICIN LEVEL, [id number] 21:58:00 Test Item Value Reference Range Comments GENTAMICIN TROUGH (BEAKER) (test vccl=052) 1.5 ug/mL 0.5-1.0 Dosing Target Level (mcg/mL)1-1.5 mg/kg q 8-12 HR 0.5- 1.03-7 mg/kg q 24 HR <0.5Before gent dosePOCT-GLUCOSE [id number] 20:39:00 Test Item Value Reference Range Comments POC-GLUCOSE METER (BEAKER) 229 mg/dL 70-110 TESTED AT [address] (test yrwd=3916) [facility] [address] POCT-GLUCOSE [id number] 20:02:00 Test Item Value Reference Range Comments POC-GLUCOSE METER (BEAKER) 251 mg/dL 70-110 TESTED AT [address] (test wwmx=2487) [facility] [address] POCT-GLUCOSE [id number] 13:49:00 Test Item Value Reference Range Comments POC-GLUCOSE METER (BEAKER) 211 mg/dL 70-110 TESTED AT [address] (test tgso=8249) [place] [id number] POCT-GLUCOSE [id number] 08:02:00 Test Item Value Reference Range Comments POC-GLUCOSE METER (BEAKER) 182 mg/dL 70-110 TESTED AT [address] (test jbhd=9734) [facility] [address] BASIC METABOLIC [id number] 07:28:00 Test Item Value Reference Range Comments SODIUM (BEAKER) (test 138 meq/L 136-145 tcsi=703) POTASSIUM (BEAKER) (test 4.1 meq/L 3.5-5.1 tggb=437) CHLORIDE (BEAKER) (test 101 meq/L 98-107 hpqf=749) CO2 (BEAKER) (test 26 meq/L 22-29 armk=563) BLOOD UREA NITROGEN 42 mg/dL 7-21 (BEAKER) (test gxzf=969) CREATININE (BEAKER) (test 6.85 mg/dL 0.57-1.25 usmq=367) GLUCOSE RANDOM (BEAKER) 138 mg/dL 70-105 (test eejm=808) CALCIUM (BEAKER) (test 8.9 mg/dL 8.4-10.2 hoor=741) EGFR (BEAKER) (test 7 mL/min/1.73 sq m ESTIMATED GFR IS NOT goqu=2194) ACCURATE CREATININE CLEARANCE IN PREDICTING GLOMERULAR FILTRATION RATE. ESTIMATED GFR IS NOT APPLICABLE FOR DIALYSIS PATIENTS. VANCOMYCIN LEVEL, [id number] 07:07:00 Test Item Value Reference Range Comments VANCOMYCIN RANDOM (BEAKER) (test ouuw=692) 25.1 ug/mL Reference Range: No NormalsCBC W/PLT COUNT & AUTO [id number] 07: 02:00 Test Item Value Reference Range Comments WHITE BLOOD CELL COUNT (BEAKER) (test hwnt=201) 15.1 K/ L 3.5-10.5 RED BLOOD CELL COUNT (BEAKER) (test kgeq=987) 2.67 M/ L 3.93-5.22 HEMOGLOBIN (BEAKER) (test kmbz=880) 7.4 GM/DL 11.2-15.7 HEMATOCRIT (BEAKER) (test lsgm=016) 24.8 % 34.1-44.9 MEAN CORPUSCULAR VOLUME (BEAKER) (test fbtd=108) 92.9 fL 79.4-94.8 MEAN CORPUSCULAR HEMOGLOBIN (BEAKER) (test 27.7 pg 25.6-32.2 nwqo=874) MEAN CORPUSCULAR HEMOGLOBIN CONC (BEAKER) (test 29.8 GM/DL 32.2-35.5 mwrq=407) RED CELL DISTRIBUTION WIDTH (BEAKER) (test 15.9 % 11.7-14.4 hdos=925) PLATELET COUNT (BEAKER) (test buhz=870) 303 K/CU MM 150-450 MEAN PLATELET VOLUME (BEAKER) (test zcwf=119) 10.1 fL 9.4-12.3 NUCLEATED RED BLOOD CELLS (BEAKER) (test 0 /100 WBC 0-0 mqdu=254) NEUTROPHILS RELATIVE PERCENT (BEAKER) (test 85 % rksl=544) LYMPHOCYTES RELATIVE PERCENT (BEAKER) (test 6 % fquu=192) MONOCYTES RELATIVE PERCENT (BEAKER) (test 6 % neju=721) EOSINOPHILS RELATIVE PERCENT (BEAKER) (test 2 % gvoz=248) BASOPHILS RELATIVE PERCENT (BEAKER) (test 0 % mdbe=731) NEUTROPHILS ABSOLUTE COUNT (BEAKER) (test 12.90 K/ L 1.56-6.13 epzh=925) LYMPHOCYTES ABSOLUTE COUNT (BEAKER) (test 0.85 K/ L 1.18-3.74 oojz=095) MONOCYTES ABSOLUTE COUNT (BEAKER) (test 0.97 K/ L 0.24-0.36 emch=922) EOSINOPHILS ABSOLUTE COUNT (BEAKER) (test 0.25 K/ L 0.04-0.36 hior=860) BASOPHILS ABSOLUTE COUNT (BEAKER) (test 0.03 K/ L 0.01-0.08 usmo=647) IMMATURE GRANULOCYTES-RELATIVE PERCENT (BEAKER) 1 % 0-1 (test mtcq=8157) POCT-GLUCOSE [id number] 21:24:00 Test Item Value Reference Range Comments POC-GLUCOSE METER (BEAKER) 189 mg/dL 70-110 TESTED AT [address] (test jvpo=2335) [place] [id number] POCT-GLUCOSE [id number] 17:50:00 Test Item Value Reference Range Comments POC-GLUCOSE METER (BEAKER) 215 mg/dL 70-110 TESTED AT [address] (test rnji=2869) [place] [address] POCT-GLUCOSE [id number] 13:23:00 Test Item Value Reference Range Comments POC-GLUCOSE METER (BEAKER) 270 mg/dL 70-110 TESTED AT [address] (test xbyb=2283) [place] [id number] POCT-GLUCOSE [id number] 08:37:00 Test Item Value Reference Range Comments POC-GLUCOSE METER (BEAKER) 138 mg/dL 70-110 TESTED AT [address] (test qmhv=4086) [facility] [address] BASIC METABOLIC [id number] 06:54:00 Test Item Value Reference Range Comments SODIUM (BEAKER) (test 138 meq/L 136-145 gvet=521) POTASSIUM (BEAKER) (test 3.9 meq/L 3.5-5.1 jquh=774) CHLORIDE (BEAKER) (test 100 meq/L 98-107 bqbs=169) CO2 (BEAKER) (test 26 meq/L 22-29 mpkd=216) BLOOD UREA NITROGEN 27 mg/dL 7-21 (BEAKER) (test bwwp=803) CREATININE (BEAKER) (test 5.01 mg/dL 0.57-1.25 vzgp=341) GLUCOSE RANDOM (BEAKER) 117 mg/dL 70-105 (test ydys=705) CALCIUM (BEAKER) (test 8.6 mg/dL 8.4-10.2 ejmv=093) EGFR (BEAKER) (test 11 mL/min/1.73 sq m ESTIMATED GFR IS NOT otem=1323) ACCURATE CREATININE CLEARANCE IN PREDICTING GLOMERULAR FILTRATION RATE. ESTIMATED GFR IS NOT APPLICABLE FOR DIALYSIS PATIENTS. [id number] 06:53:00 Test Item Value Reference Range Comments PHOSPHORUS (BEAKER) (test hize=680) 4.1 mg/dL 2.3-4.7 [id number] 06:53:00 Test Item Value Reference Range Comments MAGNESIUM (BEAKER) (test orvl=841) 1.9 mg/dL 1.6-2.6 VANCOMYCIN LEVEL, [id number] 06:51:00 Test Item Value Reference Range Comments VANCOMYCIN RANDOM (BEAKER) (test dcub=876) 27.5 ug/mL Reference Range: No NormalsCBC W/PLT COUNT & AUTO [id number] 06: 30:00 Test Item Value Reference Range Comments WHITE BLOOD CELL COUNT (BEAKER) (test faxm=302) 14.6 K/ L 3.5-10.5 RED BLOOD CELL COUNT (BEAKER) (test aroe=471) 2.82 M/ L 3.93-5.22 HEMOGLOBIN (BEAKER) (test oyrw=894) 7.8 GM/DL 11.2-15.7 HEMATOCRIT (BEAKER) (test zkrj=068) 25.6 % 34.1-44.9 MEAN CORPUSCULAR VOLUME (BEAKER) (test bcwe=061) 90.8 fL 79.4-94.8 MEAN CORPUSCULAR HEMOGLOBIN (BEAKER) (test 27.7 pg 25.6-32.2 dapv=225) MEAN CORPUSCULAR HEMOGLOBIN CONC (BEAKER) (test 30.5 GM/DL 32.2-35.5 kxaf=401) RED CELL DISTRIBUTION WIDTH (BEAKER) (test 15.8 % 11.7-14.4 vutk=800) PLATELET COUNT (BEAKER) (test cfnq=586) 266 K/CU MM 150-450 MEAN PLATELET VOLUME (BEAKER) (test pibm=324) 10.2 fL 9.4-12.3 NUCLEATED RED BLOOD CELLS (BEAKER) (test 0 /100 WBC 0-0 eceh=121) NEUTROPHILS RELATIVE PERCENT (BEAKER) (test 82 % lyta=609) LYMPHOCYTES RELATIVE PERCENT (BEAKER) (test 7 % grgb=018) MONOCYTES RELATIVE PERCENT (BEAKER) (test 9 % bvcx=296) EOSINOPHILS RELATIVE PERCENT (BEAKER) (test 1 % rkex=334) BASOPHILS RELATIVE PERCENT (BEAKER) (test 0 % ckwb=629) NEUTROPHILS ABSOLUTE COUNT (BEAKER) (test 11.86 K/ L 1.56-6.13 rokw=779) LYMPHOCYTES ABSOLUTE COUNT (BEAKER) (test 1.00 K/ L 1.18-3.74 apdn=168) MONOCYTES ABSOLUTE COUNT (BEAKER) (test 1.24 K/ L 0.24-0.36 wxmz=841) EOSINOPHILS ABSOLUTE COUNT (BEAKER) (test 0.21 K/ L 0.04-0.36 uwkj=744) BASOPHILS ABSOLUTE COUNT (BEAKER) (test 0.04 K/ L 0.01-0.08 mshk=300) IMMATURE GRANULOCYTES-RELATIVE PERCENT (BEAKER) 1 % 0-1 (test wmwq=7117) POCT-GLUCOSE [id number] 00:41:00 Test Item Value Reference Range Comments POC-GLUCOSE METER (BEAKER) 139 mg/dL 70-110 TESTED AT [address] (test wfaj=8634) [place] [address] HEMOGLOBIN AND [id number] 23:23:00 Test Item Value Reference Range Comments HEMOGLOBIN (BEAKER) (test wmjm=989) 9.0 GM/DL 11.2-15.7 HEMATOCRIT (BEAKER) (test utad=724) 29.7 % 34.1-44.9 Check after HD after she receives her blood transfusionPOCT-GLUCOSE [id number] 17:53:00 Test Item Value Reference Range Comments POC-GLUCOSE METER (BEAKER) 177 mg/dL 70-110 TESTED AT [address] (test pwop=0300) [place] [address] POCT-GLUCOSE [id number] 13:03:00 Test Item Value Reference Range Comments POC-GLUCOSE METER (BEAKER) 171 mg/dL 70-110 TESTED AT [address] (test ilew=6070) [place] [address] BLOOD [id number] 09:44:00 Test Item Value Reference Range Comments CULTURE (BEAKER) (test METHICILLIN RESISTANT From Aerobic And iuzu=7274) STAPHYLOCOCCUS AUREUS Anaerobic Bottles Methicillin resistant Staphylococcus aureus Clindamycin (test code=10) Erythromycin (test code=4) Linezolid (test code=40) Nitrofurantoin (test code=23) Oxacillin (test code=14) Rifampin (test code=43) Tetracycline (test code=2) Trimethoprim + Sulfamethoxazole (test code=47) Vancomycin (test code=13) CULTURE (BEAKER) (test From Aerobic Bottle twfz=4730) Only Methicillin resistant Staphylococcus aureusSame as first isolate. GRAM STAIN RESULT From aerobic and (BEAKER) (test zxef=1512) anaerobic bottles: gram positive cocci in clusters CT, [id number] 09:28:00FINAL REPORT ABDOMINAL AND PELVIS CT DATED [...] Aguilera Verified Date/Time: 2017 09:28:06 Reading Location: [address] Body Reading Room PROTHROMBIN [id number] 09:18:00 Test Item Value Reference Range Comments PROTIME (BEAKER) (test fbrc=543) 14.5 seconds 11.7-14.7 INR (BEAKER) (test okur=567) 1.1 <=5.9 RECOMMENDED COUMADIN/WARFARIN INR THERAPY RANGESSTANDARD DOSE: 2.0 - 3.0 Includes: PROPHYLAXIS forvenous thrombosis, systemic embolization; TREATMENT for venous thrombosis and/or pulmonary embolus.HIGH RISK: Target INR is 2.5-3.5 for patients with mechanical heart valves.HEMOGLOBIN AND [id number] 09 :08:00 Test Item Value Reference Range Comments HEMOGLOBIN (BEAKER) (test jyeq=570) 7.0 GM/DL 11.2-15.7 HEMATOCRIT (BEAKER) (test mrpm=517) 23.2 % 34.1-44.9 BASIC METABOLIC [id number] 06:55:00 Test Item Value Reference Range Comments SODIUM (BEAKER) (test 137 meq/L 136-145 fluj=766) POTASSIUM (BEAKER) (test 4.4 meq/L 3.5-5.1 illa=446) CHLORIDE (BEAKER) (test 101 meq/L 98-107 ftis=522) CO2 (BEAKER) (test 23 meq/L 22-29 hudb=507) BLOOD UREA NITROGEN 56 mg/dL 7-21 (BEAKER) (test vptg=651) CREATININE (BEAKER) (test 8.16 mg/dL 0.57-1.25 atjd=983) GLUCOSE RANDOM (BEAKER) 131 mg/dL 70-105 (test itwk=077) CALCIUM (BEAKER) (test 8.4 mg/dL 8.4-10.2 uhkq=523) EGFR (BEAKER) (test 6 mL/min/1.73 sq m ESTIMATED GFR IS NOT tdfd=3405) ACCURATE CREATININE CLEARANCE IN PREDICTING GLOMERULAR FILTRATION RATE. ESTIMATED GFR IS NOT APPLICABLE FOR DIALYSIS PATIENTS. [id number] 06:40:00 Test Item Value Reference Range Comments PARTIAL THROMBOPLASTIN TIME (BEAKER) (test 91.0 seconds 22.5-36.0 tlno=166) CBC W/PLT COUNT & AUTO [id number] 06:33:00 Test Item Value Reference Range Comments WHITE BLOOD CELL COUNT (BEAKER) (test aozc=762) 16.6 K/ L 3.5-10.5 RED BLOOD CELL COUNT (BEAKER) (test uvgd=766) 2.31 M/ L 3.93-5.22 HEMOGLOBIN (BEAKER) (test prai=340) 6.4 GM/DL 11.2-15.7 HEMATOCRIT (BEAKER) (test iniq=408) 21.3 % 34.1-44.9 MEAN CORPUSCULAR VOLUME (BEAKER) (test xmlg=574) 92.2 fL 79.4-94.8 MEAN CORPUSCULAR HEMOGLOBIN (BEAKER) (test 27.7 pg 25.6-32.2 ktay=795) MEAN CORPUSCULAR HEMOGLOBIN CONC (BEAKER) (test 30.0 GM/DL 32.2-35.5 azig=889) RED CELL DISTRIBUTION WIDTH (BEAKER) (test 15.0 % 11.7-14.4 qfbg=858) PLATELET COUNT (BEAKER) (test dwwl=418) 276 K/CU MM 150-450 MEAN PLATELET VOLUME (BEAKER) (test ydnu=354) 10.4 fL 9.4-12.3 NUCLEATED RED BLOOD CELLS (BEAKER) (test 0 /100 WBC 0-0 lqpg=709) NEUTROPHILS RELATIVE PERCENT (BEAKER) (test 82 % ddbs=332) LYMPHOCYTES RELATIVE PERCENT (BEAKER) (test 7 % rvrm=859) MONOCYTES RELATIVE PERCENT (BEAKER) (test 8 % cwdx=681) EOSINOPHILS RELATIVE PERCENT (BEAKER) (test 1 % eqbg=433) BASOPHILS RELATIVE PERCENT (BEAKER) (test 0 % nuxj=305) NEUTROPHILS ABSOLUTE COUNT (BEAKER) (test 13.67 K/ L 1.56-6.13 pgiz=826) LYMPHOCYTES ABSOLUTE COUNT (BEAKER) (test 1.14 K/ L 1.18-3.74 gmnw=855) MONOCYTES ABSOLUTE COUNT (BEAKER) (test 1.38 K/ L 0.24-0.36 ibbt=566) EOSINOPHILS ABSOLUTE COUNT (BEAKER) (test 0.08 K/ L 0.04-0.36 fcwj=661) BASOPHILS ABSOLUTE COUNT (BEAKER) (test 0.06 K/ L 0.01-0.08 xvbm=407) IMMATURE GRANULOCYTES-RELATIVE PERCENT (BEAKER) 2 % 0-1 (test irhw=9371) POCT-GLUCOSE [id number] 21:47:00 Test Item Value Reference Range Comments POC-GLUCOSE METER (BEAKER) 173 mg/dL 70-110 TESTED AT [address] (test sgkt=1757) [place] [address] [id number] 18:27:00 Test Item Value Reference Range Comments PARTIAL THROMBOPLASTIN TIME (BEAKER) (test 78.5 seconds 22.5-36.0 xhcu=881) POCT-GLUCOSE [id number] 13:23:00 Test Item Value Reference Range Comments POC-GLUCOSE METER (BEAKER) 176 mg/dL 70-110 TESTED AT [address] (test tuwd=0049) [place] [address] [id number] 11:24:00 Test Item Value Reference Range Comments PARTIAL THROMBOPLASTIN TIME (BEAKER) (test 83.7 seconds 22.5-36.0 tyxm=677) POCT-GLUCOSE [id number] 08:13:00 Test Item Value Reference Range Comments POC-GLUCOSE METER (BEAKER) 189 mg/dL 70-110 TESTED AT [address] (test zfqm=5913) [place] [address] BASIC METABOLIC [id number] 06:03:00 Test Item Value Reference Range Comments SODIUM (BEAKER) (test 135 meq/L 136-145 jqxc=503) POTASSIUM (BEAKER) (test 3.9 meq/L 3.5-5.1 vlkf=408) CHLORIDE (BEAKER) (test 100 meq/L 98-107 mtak=260) CO2 (BEAKER) (test 23 meq/L 22-29 brwz=034) BLOOD UREA NITROGEN 41 mg/dL 7-21 (BEAKER) (test mlxg=412) CREATININE (BEAKER) (test 6.33 mg/dL 0.57-1.25 cdul=741) GLUCOSE RANDOM (BEAKER) 154 mg/dL 70-105 (test vdql=940) CALCIUM (BEAKER) (test 8.8 mg/dL 8.4-10.2 hdef=798) EGFR (BEAKER) (test 8 mL/min/1.73 sq m ESTIMATED GFR IS NOT bjpf=7361) ACCURATE CREATININE CLEARANCE IN PREDICTING GLOMERULAR FILTRATION RATE. ESTIMATED GFR IS NOT APPLICABLE FOR DIALYSIS PATIENTS. VANCOMYCIN LEVEL, [id number] 05:41:00 Test Item Value Reference Range Comments VANCOMYCIN RANDOM (BEAKER) (test thui=881) 34.9 ug/mL Reference Range: No NormalsCBC W/PLT COUNT & AUTO [id number] 05: 36:00 Test Item Value Reference Range Comments WHITE BLOOD CELL COUNT (BEAKER) (test clqp=137) 15.0 K/ L 3.5-10.5 RED BLOOD CELL COUNT (BEAKER) (test pxet=120) 2.79 M/ L 3.93-5.22 HEMOGLOBIN (BEAKER) (test cgaa=892) 7.6 GM/DL 11.2-15.7 HEMATOCRIT (BEAKER) (test vcfq=185) 25.8 % 34.1-44.9 MEAN CORPUSCULAR VOLUME (BEAKER) (test uofp=041) 92.5 fL 79.4-94.8 MEAN CORPUSCULAR HEMOGLOBIN (BEAKER) (test 27.2 pg 25.6-32.2 tuay=287) MEAN CORPUSCULAR HEMOGLOBIN CONC (BEAKER) (test 29.5 GM/DL 32.2-35.5 jcze=163) RED CELL DISTRIBUTION WIDTH (BEAKER) (test 14.6 % 11.7-14.4 dmrd=160) PLATELET COUNT (BEAKER) (test xbte=802) 229 K/CU MM 150-450 MEAN PLATELET VOLUME (BEAKER) (test bada=326) 10.6 fL 9.4-12.3 NUCLEATED RED BLOOD CELLS (BEAKER) (test 0 /100 WBC 0-0 wcpa=425) NEUTROPHILS RELATIVE PERCENT (BEAKER) (test 85 % inex=239) LYMPHOCYTES RELATIVE PERCENT (BEAKER) (test 6 % jwyr=065) MONOCYTES RELATIVE PERCENT (BEAKER) (test 7 % yqpl=651) EOSINOPHILS RELATIVE PERCENT (BEAKER) (test 1 % aagf=403) BASOPHILS RELATIVE PERCENT (BEAKER) (test 0 % akze=423) NEUTROPHILS ABSOLUTE COUNT (BEAKER) (test 12.75 K/ L 1.56-6.13 vhrq=325) LYMPHOCYTES ABSOLUTE COUNT (BEAKER) (test 0.92 K/ L 1.18-3.74 novi=038) MONOCYTES ABSOLUTE COUNT (BEAKER) (test 1.00 K/ L 0.24-0.36 uknb=468) EOSINOPHILS ABSOLUTE COUNT (BEAKER) (test 0.17 K/ L 0.04-0.36 hgyn=543) BASOPHILS ABSOLUTE COUNT (BEAKER) (test 0.05 K/ L 0.01-0.08 wtun=181) IMMATURE GRANULOCYTES-RELATIVE PERCENT (BEAKER) 1 % 0-1 (test vxpp=8014) [id number] 05:31:00 Test Item Value Reference Range Comments PARTIAL THROMBOPLASTIN TIME (BEAKER) (test 69.7 seconds 22.5-36.0 hqlk=344) POCT-GLUCOSE [id number] 22:11:00 Test Item Value Reference Range Comments POC-GLUCOSE METER (BEAKER) 175 mg/dL 70-110 TESTED AT [address] (test llim=5823) [place] [address] [id number] 20:48:00 Test Item Value Reference Range Comments PARTIAL THROMBOPLASTIN TIME (BEAKER) (test 61.5 seconds 22.5-36.0 nypp=123) [id number] 19:00:00 Test Item Value Reference Range Comments PARTIAL THROMBOPLASTIN TIME (BEAKER) (test > seconds 22.5-36.0 cruv=390) POCT-GLUCOSE [id number] 17:10:00 Test Item Value Reference Range Comments POC-GLUCOSE METER (BEAKER) 211 mg/dL 70-110 TESTED AT [address] (test icwk=9887) [place] [address] POCT-GLUCOSE [id number] 12:54:00 Test Item Value Reference Range Comments POC-GLUCOSE METER (BEAKER) 181 mg/dL 70-110 TESTED AT [address] (test vciy=4409) [place] [address] [id number] 11:03:00 Test Item Value Reference Range Comments PARTIAL THROMBOPLASTIN TIME (BEAKER) (test 83.7 seconds 22.5-36.0 rzrb=801) CATHETER TIP [id number] 09:36:00 Test Item Value Reference Range Comments CULTURE (BEAKER) (test yysh=6893) No growth POCT-GLUCOSE [id number] 08:14:00 Test Item Value Reference Range Comments POC-GLUCOSE METER (BEAKER) 191 mg/dL 70-110 TESTED AT [address] (test pktf=3049) [place] [id number] 03:56:00 Test Item Value Reference Range Comments PARTIAL THROMBOPLASTIN TIME (BEAKER) (test 104.2 seconds 22.5-36.0 ilos=268) POCT-GLUCOSE [id number] 03:23:00 Test Item Value Reference Range Comments POC-GLUCOSE METER (BEAKER) 152 mg/dL 70-110 TESTED AT [address] (test gxaz=8165) [place] [id number] POCT-GLUCOSE [id number] 22:14:00 Test Item Value Reference Range Comments POC-GLUCOSE METER (BEAKER) 193 mg/dL 70-110 TESTED AT [address] (test kbbb=1209) [place] [address] [id number] 21:14:00 Test Item Value Reference Range Comments PARTIAL THROMBOPLASTIN TIME (BEAKER) (test 82.5 seconds 22.5-36.0 tvqb=260) POCT-GLUCOSE [id number] 19:35:00 Test Item Value Reference Range Comments POC-GLUCOSE METER (BEAKER) 156 mg/dL 70-110 TESTED AT [address] (test gwpb=0950) [place] [address] VANCOMYCIN LEVEL, [id number] 18:48:00 Test Item Value Reference Range Comments VANCOMYCIN RANDOM (BEAKER) (test qfia=956) 12.6 ug/mL Reference Range: No NormalsPlease draw a random vancomycin level at end of dialysis tomorrow 11/25HEPATITIS B SURFACE [id number] 15:50:00 Test Item Value Reference Range Comments HEPATITIS B SURFACE ANTIGEN (2) (BEAKER) (test Nonreactive Nonreactive qtro=8642) [id number] 15:27:00 Test Item Value Reference Range Comments PARTIAL THROMBOPLASTIN TIME (BEAKER) (test 64.9 seconds 22.5-36.0 ihpz=286) BASIC METABOLIC [id number] 14:04:00 Test Item Value Reference Range Comments SODIUM (BEAKER) (test 134 meq/L 136-145 pcky=518) POTASSIUM (BEAKER) (test 3.9 meq/L 3.5-5.1 zcpw=370) CHLORIDE (BEAKER) (test 100 meq/L 98-107 ptzn=490) CO2 (BEAKER) (test 22 meq/L 22-29 dyzx=788) BLOOD UREA NITROGEN 68 mg/dL 7-21 (BEAKER) (test xzse=410) CREATININE (BEAKER) (test 8.46 mg/dL 0.57-1.25 yjxc=061) GLUCOSE RANDOM (BEAKER) 156 mg/dL 70-105 (test lfry=346) CALCIUM (BEAKER) (test 8.7 mg/dL 8.4-10.2 hyiu=648) EGFR (BEAKER) (test 6 mL/min/1.73 sq m ESTIMATED GFR IS NOT sgka=9281) ACCURATE CREATININE CLEARANCE IN PREDICTING GLOMERULAR FILTRATION RATE. ESTIMATED GFR IS NOT APPLICABLE FOR DIALYSIS PATIENTS. [id number] 13:33:00 Test Item Value Reference Range Comments PARTIAL THROMBOPLASTIN TIME (BEAKER) (test 67.9 seconds 22.5-36.0 lxao=597) BLOOD [id number] 10:14:00 Test Item Value Reference Range Comments CULTURE (BEAKER) From Aerobic And Anaerobic (test jneq=9746) Bottles Staphylococcus aureusRefer to previous culture ofMethicillin resistant Staphylococcus aureus GRAM STAIN RESULT From aerobic and (BEAKER) (test anaerobic bottles: irtv=6116) gram positive cocci in clusters BLOOD [id number] 10:12:00 Test Item Value Reference Range Comments CULTURE (BEAKER) (test METHICILLIN RESISTANT From Aerobic And slwj=6279) STAPHYLOCOCCUS AUREUS Anaerobic Bottles Methicillin resistant Staphylococcus aureus Clindamycin (test code=10) Erythromycin (test code=4) Linezolid (test code=40) Nitrofurantoin (test code=23) Oxacillin (test code=14) Rifampin (test code=43) Tetracycline (test code=2) Trimethoprim + Sulfamethoxazole (test code=47) Vancomycin (test code=13) GRAM STAIN RESULT From aerobic and (BEAKER) (test izjh=2134) anaerobic bottles: gram positive cocci in clusters POCT-GLUCOSE [id number] 08:05:00 Test Item Value Reference Range Comments POC-GLUCOSE METER (BEAKER) 182 mg/dL 70-110 TESTED AT [facility] [address] [facility] (test enid=8758) [facility] [address] [id number] 06:49:00 Test Item Value Reference Range Comments PARTIAL THROMBOPLASTIN TIME (BEAKER) (test 83.0 seconds 22.5-36.0 dozh=894) CBC W/PLT COUNT & AUTO [id number] 05:45:00 Test Item Value Reference Range Comments WHITE BLOOD CELL COUNT (BEAKER) (test vbss=282) 8.1 K/ L 3.5-10.5 RED BLOOD CELL COUNT (BEAKER) (test tuwg=246) 2.88 M/ L 3.93-5.22 HEMOGLOBIN (BEAKER) (test vkul=320) 8.1 GM/DL 11.2-15.7 HEMATOCRIT (BEAKER) (test wgug=212) 26.6 % 34.1-44.9 MEAN CORPUSCULAR VOLUME (BEAKER) (test qkye=919) 92.4 fL 79.4-94.8 MEAN CORPUSCULAR HEMOGLOBIN (BEAKER) (test 28.1 pg 25.6-32.2 qtmi=563) MEAN CORPUSCULAR HEMOGLOBIN CONC (BEAKER) (test 30.5 GM/DL 32.2-35.5 wmjx=293) RED CELL DISTRIBUTION WIDTH (BEAKER) (test 14.9 % 11.7-14.4 dndr=480) PLATELET COUNT (BEAKER) (test jpfq=624) 117 K/CU MM 150-450 MEAN PLATELET VOLUME (BEAKER) (test auxk=176) 10.5 fL 9.4-12.3 NUCLEATED RED BLOOD CELLS (BEAKER) (test 0 /100 WBC 0-0 zmsw=336) NEUTROPHILS RELATIVE PERCENT (BEAKER) (test 72 % kmhd=368) LYMPHOCYTES RELATIVE PERCENT (BEAKER) (test 11 % wlnh=611) MONOCYTES RELATIVE PERCENT (BEAKER) (test 10 % akub=934) EOSINOPHILS RELATIVE PERCENT (BEAKER) (test 5 % kcrt=903) BASOPHILS RELATIVE PERCENT (BEAKER) (test 1 % roxh=304) NEUTROPHILS ABSOLUTE COUNT (BEAKER) (test 5.83 K/ L 1.56-6.13 cbbg=762) LYMPHOCYTES ABSOLUTE COUNT (BEAKER) (test 0.92 K/ L 1.18-3.74 ijpe=006) MONOCYTES ABSOLUTE COUNT (BEAKER) (test 0.79 K/ L 0.24-0.36 xvrw=907) EOSINOPHILS ABSOLUTE COUNT (BEAKER) (test 0.41 K/ L 0.04-0.36 ugut=275) BASOPHILS ABSOLUTE COUNT (BEAKER) (test 0.05 K/ L 0.01-0.08 vebo=972) IMMATURE GRANULOCYTES-RELATIVE PERCENT (BEAKER) 1 % 0-1 (test ylci=3036) BASIC METABOLIC [id number] 00:23:00 Test Item Value Reference Range Comments SODIUM (BEAKER) (test 134 meq/L 136-145 flup=387) POTASSIUM (BEAKER) (test 3.8 meq/L 3.5-5.1 dpsn=355) CHLORIDE (BEAKER) (test 100 meq/L 98-107 dtie=822) CO2 (BEAKER) (test 22 meq/L 22-29 gpoy=563) BLOOD UREA NITROGEN 62 mg/dL 7-21 (BEAKER) (test vuxm=897) CREATININE (BEAKER) (test 7.39 mg/dL 0.57-1.25 wrpl=920) GLUCOSE RANDOM (BEAKER) 155 mg/dL 70-105 (test mktg=280) CALCIUM (BEAKER) (test 8.6 mg/dL 8.4-10.2 doru=857) EGFR (BEAKER) (test 7 mL/min/1.73 sq m ESTIMATED GFR IS NOT qgbc=2346) ACCURATE CREATININE CLEARANCE IN PREDICTING GLOMERULAR FILTRATION RATE. ESTIMATED GFR IS NOT APPLICABLE FOR DIALYSIS PATIENTS. [id number] 00:15:00 Test Item Value Reference Range Comments PHOSPHORUS (BEAKER) (test azpu=578) 3.5 mg/dL 2.3-4.7 [id number] 00:15:00 Test Item Value Reference Range Comments MAGNESIUM (BEAKER) (test nljx=836) 2.3 mg/dL 1.6-2.6 [id number] 00:03:00 Test Item Value Reference Range Comments PARTIAL THROMBOPLASTIN TIME (BEAKER) (test 105.0 seconds 22.5-36.0 kahd=954) POCT-GLUCOSE [id number] 22:14:00 Test Item Value Reference Range Comments POC-GLUCOSE METER (BEAKER) 200 mg/dL 70-110 TESTED AT [facility] [address] [facility] (test uciw=3344) [facility] [address] [id number] 17:22:00 Test Item Value Reference Range Comments PROTIME (BEAKER) (test nsas=934) 13.7 seconds 11.7-14.7 INR (BEAKER) (test vkja=434) 1.0 <=5.9 PARTIAL THROMBOPLASTIN TIME (BEAKER) (test 64.3 seconds 22.5-36.0 higs=655) RECOMMENDED COUMADIN/WARFARIN INR THERAPY RANGESSTANDARD DOSE: 2.0 - 3.0 Includes: PROPHYLAXIS forvenous thrombosis, systemic embolization; TREATMENT for venous thrombosis and/or pulmonary embolus.HIGH RISK: Target INR is 2.5-3.5 for patients with mechanical heart valves.Prior to initiating heparinPrior to initiating [id number] 17:22:00 Test Item Value Reference Range Comments PARTIAL THROMBOPLASTIN TIME (BEAKER) (test 64.3 seconds 22.5-36.0 ytss=373) POCT-GLUCOSE [id number] 17:19:00 Test Item Value Reference Range Comments POC-GLUCOSE METER (BEAKER) 169 mg/dL 70-110 TESTED AT [address] (test fren=7222) [place] [address] POCT-GLUCOSE [id number] 12:30:00 Test Item Value Reference Range Comments POC-GLUCOSE METER (BEAKER) 235 mg/dL 70-110 TESTED AT [address] (test fjwd=9323) [place] [address] [id number] 10:05:00 Test Item Value Reference Range Comments PARTIAL THROMBOPLASTIN TIME (BEAKER) (test 38.6 seconds 22.5-36.0 uztj=529) Prior to initiating heparinPOCT-GLUCOSE [id number] 07:40:00 Test Item Value Reference Range Comments POC-GLUCOSE METER (BEAKER) 221 mg/dL 70-110 TESTED AT [address] (test aikl=8360) [place] [address] [id number] 05:58:00 Test Item Value Reference Range Comments MAGNESIUM (BEAKER) (test dvla=169) 2.1 mg/dL 1.6-2.6 [id number] 05:58:00 Test Item Value Reference Range Comments PHOSPHORUS (BEAKER) (test zewe=665) 3.5 mg/dL 2.3-4.7 TROPONIN [id number] 05:15:00 Test Item Value Reference Range Comments TROPONIN I (BEAKER) (test cugw=783) 0.31 ng/mL 0.00-0.03 Troponin I (TnI) levels [...] disease, and persistent tachyarrhythmia.LACTIC ACID, VENOUS, WHOLE [id number] 05:13:00 Test Item Value Reference Range Comments LACTATE BLOOD VENOUS (2) (BEAKER) (test 0.8 mmol/L 0.5-2.2 dway=2087) BASIC METABOLIC [id number] 05:13:00 Test Item Value Reference Range Comments SODIUM (BEAKER) (test 136 meq/L 136-145 dxwn=221) POTASSIUM (BEAKER) (test 3.4 meq/L 3.5-5.1 lmww=376) CHLORIDE (BEAKER) (test 99 meq/L 98-107 tahb=699) CO2 (BEAKER) (test 25 meq/L 22-29 jhqk=499) BLOOD UREA NITROGEN 43 mg/dL 7-21 (BEAKER) (test agrs=045) CREATININE (BEAKER) (test 6.21 mg/dL 0.57-1.25 yupc=841) GLUCOSE RANDOM (BEAKER) 175 mg/dL 70-105 (test bell=157) CALCIUM (BEAKER) (test 8.6 mg/dL 8.4-10.2 tdxx=529) EGFR (BEAKER) (test 8 mL/min/1.73 sq m ESTIMATED GFR IS NOT uziz=7478) ACCURATE CREATININE CLEARANCE IN PREDICTING GLOMERULAR FILTRATION RATE. ESTIMATED GFR IS NOT APPLICABLE FOR DIALYSIS PATIENTS. B-TYPE NATRIURETIC FACTOR (BNP)2018-11-24 05:12:00 Test Item Value Reference Range Comments B-TYPE NATRIURETIC PEPTIDE (BEAKER) (test 190 pg/mL 0-100 alaq=614) CBC W/PLT COUNT & AUTO [id number] 05:12:00 Test Item Value Reference Range Comments WHITE BLOOD CELL COUNT (BEAKER) (test yxtr=237) 12.0 K/ L 3.5-10.5 RED BLOOD CELL COUNT (BEAKER) (test vlcr=760) 2.97 M/ L 3.93-5.22 HEMOGLOBIN (BEAKER) (test blzu=255) 8.1 GM/DL 11.2-15.7 HEMATOCRIT (BEAKER) (test uspj=740) 27.6 % 34.1-44.9 MEAN CORPUSCULAR VOLUME (BEAKER) (test dldr=406) 92.9 fL 79.4-94.8 MEAN CORPUSCULAR HEMOGLOBIN (BEAKER) (test 27.3 pg 25.6-32.2 xgmk=263) MEAN CORPUSCULAR HEMOGLOBIN CONC (BEAKER) (test 29.3 GM/DL 32.2-35.5 jnws=184) RED CELL DISTRIBUTION WIDTH (BEAKER) (test 15.0 % 11.7-14.4 qkdt=374) PLATELET COUNT (BEAKER) (test pxuf=612) 115 K/CU MM 150-450 MEAN PLATELET VOLUME (BEAKER) (test yswu=683) 10.9 fL 9.4-12.3 NUCLEATED RED BLOOD CELLS (BEAKER) (test 0 /100 WBC 0-0 whwz=842) NEUTROPHILS RELATIVE PERCENT (BEAKER) (test 81 % pgds=060) LYMPHOCYTES RELATIVE PERCENT (BEAKER) (test 6 % vsss=721) MONOCYTES RELATIVE PERCENT (BEAKER) (test 10 % hrxb=155) EOSINOPHILS RELATIVE PERCENT (BEAKER) (test 3 % gtot=749) BASOPHILS RELATIVE PERCENT (BEAKER) (test 1 % snqq=117) NEUTROPHILS ABSOLUTE COUNT (BEAKER) (test 9.67 K/ L 1.56-6.13 rwou=846) LYMPHOCYTES ABSOLUTE COUNT (BEAKER) (test 0.66 K/ L 1.18-3.74 ohqp=454) MONOCYTES ABSOLUTE COUNT (BEAKER) (test 1.18 K/ L 0.24-0.36 izrk=267) EOSINOPHILS ABSOLUTE COUNT (BEAKER) (test 0.32 K/ L 0.04-0.36 qfbp=879) BASOPHILS ABSOLUTE COUNT (BEAKER) (test 0.06 K/ L 0.01-0.08 dfla=504) IMMATURE GRANULOCYTES-RELATIVE PERCENT (BEAKER) 1 % 0-1 (test lfgj=5229) POCT-GLUCOSE [id number] 22:03:00 Test Item Value Reference Range Comments POC-GLUCOSE METER (BEAKER) 187 mg/dL 70-110 TESTED AT [facility] [address] [facility] (test zobs=2647) [facility] [address] POCT-GLUCOSE [id number] 18:08:00 Test Item Value Reference Range Comments POC-GLUCOSE METER (BEAKER) 251 mg/dL 70-110 TESTED AT [facility] [address] [facility] (test kiun=2707) [facility] [address] ANG, CENTRAL VENOUS CATH PLCMT (JUG/FEM) > 5 Y.O. WITH [id number] 16:53 :00Reason for exam:->discussed, guidewire exchange of [...] Verified Date/Time: 11/23/2018 16:53:15 Reading Location: [address] Body Reading Room BLOOD CULTURE IDENTIFICATION [id number] 13:44:00 Test Item Value Reference Range Comments LISTERIA MONOCYTOGENES (test Not detected Not detected fmvo=[id number]) STAPHYLOCOCCUS (test Detected Not detected eych=0104611) STAPHYLOCOCCUS AUREUS (test Detected Not detected First line therapy: jmiy=1966277) VancomycinID consultation strongly encouraged. Staphylococcus aureus DETECTED MecA DETECTEDReference Range: Not Detected STREPTOCOCCUS (test Not detected Not detected mbbr=4750827) STREPTOCOCCUS AGALACTIAE Not detected Not detected (GROUP B) (test knvk=4005766) STREPTOCOCCUS PNEUMONIAE Not detected Not detected (test rbch=8863283) STREPTOCOCCUS PYOGENES (GROUP Not detected Not detected A) (test imlq=4972298) ACINETOBACTER BAUMANNII (test Not detected Not detected ahxx=5717271) HAEMOPHILUS INFLUENZAE (test Not detected Not detected cvbq=0581053) NEISSERIA MENINGITIDIS (test Not detected Not detected heti=9744620) ENTEROBACTERIACEAE (test Not detected Not detected qujx=5817319) ENTEROBACTER CLOACOE COMPLEX Not detected Not detected (test dqhr=7902558) KLEBSIELLA OXYTOCA (test Not detected Not detected xwkc=7255931) KLEBSIELLA PNEUMONIAE (test Not detected Not detected vsic=8693) PROTEUS (test dsoi=1439754) Not detected Not detected SERRATIA MARCESCENS (test Not detected Not detected qbib=0064059) SHRUTHI ALBICANS (test Not detected Not detected ikkg=0338937) SHRUTHI GLABRATA (test Not detected Not detected nbdb=8197413) SHRUTHI KRUSEI (test Not detected Not detected yzbo=0831073) SHRUTHI PARAPSILOSIS (test Not detected Not detected dmlm=3801709) SHRUTHI TROPICALIS (test Not detected Not detected sbgt=6040619) ESCHERICHIA COLI (test Not detected Not detected fqje=5893379) METHICILLIN-RESISTANCE GENE Detected Not detected (test voeq=2920899) VANCOMYCIN-RESISTANCE GENE Not detected (test uusf=0437823) CARBAPENEM-RESISTANCE GENE Not detected (test ecmx=7555708) ENTEROCOCCUS-BEAKER (test Not detected Not detected xtft=3205551) PSEUDOMONAS AERUGINOSA-BEAKER Not detected Not detected (test jefv=3583469) Other bacteria and resistance markers not targeted by this PCR panel cannot be excluded; therefore clinical correlation and follow up of serology, culture results, and other molecular studies is required. The results are not intended to be used as the sole means for clinical diagnosis or patient management decisions. This sample was tested at the [facility] using the TSB Blood Culture ID Panel. It is FDA cleared and has been verified and approved by the [facility] for clinical use. This laboratory is CLIA-certified and College ofAmerican Pathologists (CAP)-accredited to perform high complexity testing.VANCOMYCIN LEVEL, [id number] 13:20:00 Test Item Value Reference Range Comments VANCOMYCIN RANDOM ([facility]) (test jgzk=060) 22.9 ug/mL Reference Range: No NormalsPOCT-GLUCOSE [id number] 13:00:00 Test Item Value Reference Range Comments POC-GLUCOSE METER ([facility]) 249 mg/dL 70-110 TESTED AT [facility] [address] (test qrit=1299) [facility] [address] TROPONIN [id number] 10:54:00 Test Item Value Reference Range Comments TROPONIN I (BEAKER) (test adwi=677) 0.30 ng/mL 0.00-0.03 Troponin I (TnI) levels [...] failure, acidosis, acute neurological disease, and persistent tachyarrhythmia.[id number] 10:45:00 Test Item Value Reference Range Comments LIPASE (BEAKER) (test lfde=301) 12 U/L 8-78 RAD, ABDOMEN/KUB, 1 VIEW [id number] 08:42:00Reason for exam:->abd painFINAL REPORT RAD, ABDOMEN/KUB, [...] MDReport Verified Date/Time: 11/23/2018 08:42:11 Reading Location: [facility] Radiology Reading Room COMPREHENSIVE METABOLIC [id number] 07:44:00 Test Item Value Reference Range Comments TOTAL PROTEIN (BEAKER) 6.0 gm/dL 6.0-8.3 (test qlez=999) ALBUMIN (BEAKER) (test 3.0 g/dL 3.5-5.0 kfio=6769) ALKALINE PHOSPHATASE 248 U/L 40-150 (BEAKER) (test kqie=384) BILIRUBIN TOTAL (BEAKER) 0.8 mg/dL 0.2-1.2 (test ffib=370) SODIUM (BEAKER) (test 137 meq/L 136-145 ddgm=552) POTASSIUM (BEAKER) (test 3.6 meq/L 3.5-5.1 gwze=240) CHLORIDE (BEAKER) (test 101 meq/L 98-107 umci=892) CO2 (BEAKER) (test 28 meq/L 22-29 pyti=255) BLOOD UREA NITROGEN 26 mg/dL 7-21 (BEAKER) (test snlg=465) CREATININE (BEAKER) (test 4.09 mg/dL 0.57-1.25 mtkt=548) GLUCOSE RANDOM (BEAKER) 201 mg/dL 70-105 (test sddw=703) CALCIUM (BEAKER) (test 9.3 mg/dL 8.4-10.2 nvfy=274) AST (SGOT) (BEAKER) (test 39 U/L 5-34 fpiw=102) ALT (SGPT) (BEAKER) (test 18 U/L 6-55 bsak=733) EGFR (BEAKER) (test 13 mL/min/1.73 sq m ESTIMATED GFR IS NOT krqz=3453) ACCURATE CREATININE CLEARANCE IN PREDICTING GLOMERULAR FILTRATION RATE. ESTIMATED GFR IS NOT APPLICABLE FOR DIALYSIS PATIENTS. BASIC METABOLIC [id number] 07:44:00 Test Item Value Reference Range Comments SODIUM (BEAKER) (test 137 meq/L 136-145 yhnw=602) POTASSIUM (BEAKER) (test 3.6 meq/L 3.5-5.1 jacr=369) CHLORIDE (BEAKER) (test 101 meq/L 98-107 afci=927) CO2 (BEAKER) (test 28 meq/L 22-29 ezpx=876) BLOOD UREA NITROGEN 26 mg/dL 7-21 (BEAKER) (test swiz=990) CREATININE (BEAKER) (test 4.09 mg/dL 0.57-1.25 nkze=312) GLUCOSE RANDOM (BEAKER) 201 mg/dL 70-105 (test oxaf=145) CALCIUM (BEAKER) (test 9.3 mg/dL 8.4-10.2 gvoj=735) EGFR (BEAKER) (test 13 mL/min/1.73 sq m ESTIMATED GFR IS NOT imbu=7646) ACCURATE CREATININE CLEARANCE IN PREDICTING GLOMERULAR FILTRATION RATE. ESTIMATED GFR IS NOT APPLICABLE FOR DIALYSIS PATIENTS. [id number] 07:39:00 Test Item Value Reference Range Comments PHOSPHORUS (BEAKER) (test krnf=665) 3.0 mg/dL 2.3-4.7 [id number] 07:39:00 Test Item Value Reference Range Comments MAGNESIUM (BEAKER) (test wqns=376) 1.9 mg/dL 1.6-2.6 LACTIC ACID, VENOUS, WHOLE [id number] 07:34:00 Test Item Value Reference Range Comments LACTATE BLOOD VENOUS (2) (BEAKER) (test 0.8 mmol/L 0.5-2.2 ebwz=5090) CALCIUM, [id number] 07:28:00 Test Item Value Reference Range Comments CALCIUM IONIZED (BEAKER) (test mkbb=812) 1.13 mmol/L 1.12-1.27 PH, BLOOD (BEAKER) (test qvmt=1820) 7.36 CBC W/PLT COUNT & AUTO [id number] 07:28:00 Test Item Value Reference Range Comments WHITE BLOOD CELL COUNT (BEAKER) (test rwtb=798) 19.0 K/ L 3.5-10.5 RED BLOOD CELL COUNT (BEAKER) (test qvqv=762) 2.89 M/ L 3.93-5.22 HEMOGLOBIN (BEAKER) (test kdye=754) 8.3 GM/DL 11.2-15.7 HEMATOCRIT (BEAKER) (test gvhf=330) 26.8 % 34.1-44.9 MEAN CORPUSCULAR VOLUME (BEAKER) (test pwpy=341) 92.7 fL 79.4-94.8 MEAN CORPUSCULAR HEMOGLOBIN (BEAKER) (test 28.7 pg 25.6-32.2 mtkd=115) MEAN CORPUSCULAR HEMOGLOBIN CONC (BEAKER) (test 31.0 GM/DL 32.2-35.5 xjhl=821) RED CELL DISTRIBUTION WIDTH (BEAKER) (test 15.1 % 11.7-14.4 uyeb=683) PLATELET COUNT (BEAKER) (test otry=479) 101 K/CU MM 150-450 MEAN PLATELET VOLUME (BEAKER) (test smei=755) 10.7 fL 9.4-12.3 NUCLEATED RED BLOOD CELLS (BEAKER) (test 0 /100 WBC 0-0 vnyf=594) NEUTROPHILS RELATIVE PERCENT (BEAKER) (test 88 % penq=678) LYMPHOCYTES RELATIVE PERCENT (BEAKER) (test 3 % ffgp=968) MONOCYTES RELATIVE PERCENT (BEAKER) (test 6 % rsbm=563) EOSINOPHILS RELATIVE PERCENT (BEAKER) (test 2 % tgac=893) BASOPHILS RELATIVE PERCENT (BEAKER) (test 0 % onua=346) NEUTROPHILS ABSOLUTE COUNT (BEAKER) (test 16.67 K/ L 1.56-6.13 iims=046) LYMPHOCYTES ABSOLUTE COUNT (BEAKER) (test 0.59 K/ L 1.18-3.74 jmmh=845) MONOCYTES ABSOLUTE COUNT (BEAKER) (test 1.07 K/ L 0.24-0.36 quqx=528) EOSINOPHILS ABSOLUTE COUNT (BEAKER) (test 0.36 K/ L 0.04-0.36 dorv=623) BASOPHILS ABSOLUTE COUNT (BEAKER) (test 0.07 K/ L 0.01-0.08 pxji=977) IMMATURE GRANULOCYTES-RELATIVE PERCENT (BEAKER) 1 % 0-1 (test prji=9721) BASIC METABOLIC [id number] 02:11:00 Test Item Value Reference Range Comments SODIUM (BEAKER) (test 136 meq/L 136-145 pwrs=470) POTASSIUM (BEAKER) (test 3.3 meq/L 3.5-5.1 puhk=150) CHLORIDE (BEAKER) (test 101 meq/L 98-107 idsk=431) CO2 (BEAKER) (test 25 meq/L 22-29 pyrr=420) BLOOD UREA NITROGEN 34 mg/dL 7-21 (BEAKER) (test yata=450) CREATININE (BEAKER) (test 5.32 mg/dL 0.57-1.25 qlmg=648) GLUCOSE RANDOM (BEAKER) 164 mg/dL 70-105 (test nufp=632) CALCIUM (BEAKER) (test 9.4 mg/dL 8.4-10.2 omgg=652) EGFR (BEAKER) (test 10 mL/min/1.73 sq m ESTIMATED GFR IS NOT path=2445) ACCURATE CREATININE CLEARANCE IN PREDICTING GLOMERULAR FILTRATION RATE. ESTIMATED GFR IS NOT APPLICABLE FOR DIALYSIS PATIENTS. [id number] 02:07:00 Test Item Value Reference Range Comments PHOSPHORUS (BEAKER) (test hiol=442) 2.7 mg/dL 2.3-4.7 [id number] 02:07:00 Test Item Value Reference Range Comments MAGNESIUM (BEAKER) (test gsmj=330) 1.8 mg/dL 1.6-2.6 CALCIUM, [id number] 01:51:00 Test Item Value Reference Range Comments CALCIUM IONIZED (BEAKER) (test uphu=745) 1.18 mmol/L 1.12-1.27 PH, BLOOD (BEAKER) (test lcuh=3936) 7.35 POCT-GLUCOSE [id number] 00:30:00 Test Item Value Reference Range Comments POC-GLUCOSE METER (BEAKER) 248 mg/dL 70-110 TESTED AT [facility] [address] [facility] (test jhzs=5322) [facility] [address] TROPONIN [id number] 23:27:00 Test Item Value Reference Range Comments TROPONIN I (BEAKER) (test vexl=540) 0.60 ng/mL 0.00-0.03 Troponin I (TnI) levels [...] disease, and persistent tachyarrhythmia.LACTIC ACID, VENOUS, WHOLE [id number] 23:13:00 Test Item Value Reference Range Comments LACTATE BLOOD VENOUS (2) (BEAKER) (test 1.3 mmol/L 0.5-2.2 zehe=4022) U/S, ABDOMINAL, [id number] 20:30:00Reason for exam:->Septic Shock, ESRD, Dysuria, Abdominal [...] Verified Date/Time: 11/22/2018 20:30: 54 Reading Location: [facility] C013 Neuro Reading Room LACTIC ACID, VENOUS, WHOLE [id number] 18:54:00 Test Item Value Reference Range Comments LACTATE BLOOD VENOUS (2) (BEAKER) (test 1.5 mmol/L 0.5-2.2 ofxi=0743) [id number] 17:26:00 Test Item Value Reference Range Comments PROCALCITONIN (BEAKER) (test wroi=4100) > ng/mL <0.05 SEPSIS RISK (ng/mL)Low: 0.05-0.50Intermediate: 0.51-2.00High: & gt;=2.01TSH/FREE T4 IF [id number] 17:10:00 Test Item Value Reference Range Comments THYROID STIMULATING HORMONE (BEAKER) (test 2.43 uIU/mL 0.35-4.94 phxi=249) RAD, CHEST, 1 VIEW, NON [id number] 17:04:00Reason for exam:->Respiratory Insufficiency, Septic ShockShould this [...] Verified Date/Time: 11/22/2018 17:04 :54 Reading Location: [address] Reading Room (CELLAVISION MANUAL DIFF) 2018-11-22 16:57:00 Test Item Value Reference Range Comments NEUTROPHILS - REL (CELLAVISION)(BEAKER) (test 85 % gdfx=9532) LYMPHOCYTES - REL (CELLAVISION)(BEAKER) (test 5 % pcyo=3210) MONOCYTES - REL (CELLAVISION)(BEAKER) (test 4 % schw=6964) BANDS - REL (CELLAVISION)(BEAKER) (test 6 % 0-10 avvp=0137) NEUTROPHILS - ABS (CELLAVISION)(BEAKER) (test 22.87 K/ul 1.56-6.13 obnc=1054) LYMPHOCYTES - ABS (CELLAVISION)(BEAKER) (test 1.35 K/ul 1.18-3.74 rzqy=4245) MONOCYTES - ABS (CELLAVISION)(BEAKER) (test 1.08 K/uL 0.24-0.36 vtax=0366) BANDS - ABS (CELLAVISION)(BEAKER) (test 1.61 K/uL 0.00-0.80 yilt=4734) TOTAL COUNTED (BEAKER) (test mkdx=3111) 100 WBC MORPHOLOGY (BEAKER) (test qxgl=273) Normal PLT MORPHOLOGY (BEAKER) (test nrqx=186) Normal POLYCHROMATOPHILLIC RBCS(BEAKER) (test xzmx=690) 3+ many ANISOCYTOSIS (BEAKER) (test kknn=511) 1+ few MICROCYTES (BEAKER) (test mmwz=426) 1+ few POIKILOCYTES (BEAKER) (test lbnz=147) 2+ moderate TEAR DROP CELLS (BEAKER) (test vpui=412) 1+ few JOVANNI CELLS (BEAKER) (test dvol=179) 1+ few ARTIFACT (CELLAVISION)(BEAKER) (test oddj=2790) Present HELMET CELLS (CELLAVISION)(BEAKER) (test 1+ few rxeq=5852) PLATELET CONCENTRATION (CELLAVISION)(BEAKER) Adequate (test bgwk=6286) Received comment: User comments: Slide comments:TROPONIN [id number] 16:52:00 Test Item Value Reference Range Comments TROPONIN I (BEAKER) (test mxkv=985) 0.85 ng/mL 0.00-0.03 Troponin I (TnI) levels [...] acidosis, acute neurological disease, and persistent tachyarrhythmia.PROTHROMBIN TIME/[id number] 16:52:00 Test Item Value Reference Range Comments PROTIME (BEAKER) (test algt=082) 16.1 seconds 11.7-14.7 INR (BEAKER) (test iddt=453) 1.3 <=5.9 RECOMMENDED COUMADIN/WARFARIN INR THERAPY RANGESSTANDARD DOSE: 2.0 - 3.0 Includes: PROPHYLAXIS forvenous thrombosis, systemic embolization; TREATMENT for venous thrombosis and/or pulmonary embolus.HIGH RISK: Target INR is 2.5-3.5 for patients with mechanical heart valves.B-TYPE NATRIURETIC FACTOR (BNP)2018-10 16:48:00 Test Item Value Reference Range Comments B-TYPE NATRIURETIC PEPTIDE (BEAKER) (test 353 pg/mL 0-100 avol=463) BASIC METABOLIC [id number] 16:48:00 Test Item Value Reference Range Comments SODIUM (BEAKER) (test 136 meq/L 136-145 oovj=346) POTASSIUM (BEAKER) (test 2.9 meq/L 3.5-5.1 qkau=706) CHLORIDE (BEAKER) (test 98 meq/L 98-107 ekms=817) CO2 (BEAKER) (test 24 meq/L 22-29 biyy=073) BLOOD UREA NITROGEN 47 mg/dL 7-21 (BEAKER) (test fbss=743) CREATININE (BEAKER) (test 8.07 mg/dL 0.57-1.25 vuom=860) GLUCOSE RANDOM (BEAKER) 207 mg/dL 70-105 (test cjka=803) CALCIUM (BEAKER) (test 9.5 mg/dL 8.4-10.2 sqzv=246) EGFR (BEAKER) (test 6 mL/min/1.73 sq m ESTIMATED GFR IS NOT brgo=5264) ACCURATE CREATININE CLEARANCE IN PREDICTING GLOMERULAR FILTRATION RATE. ESTIMATED GFR IS NOT APPLICABLE FOR DIALYSIS PATIENTS. BLOOD GAS, [id number] 16:44:00 Test Item Value Reference Range Comments PH ARTERIAL (BEAKER) (test pmmb=321) 7.37 7.35-7.45 PCO2 ARTERIAL (BEAKER) (test azkh=453) 42 mmHg 35-45 PO2 ARTERIAL (BEAKER) (test jaax=803) 123 mmHg 80-90 O2 SATURATION ARTERIAL (BEAKER) (test lucj=354) 98.3 % 96.0-97.0 HCO3 ARTERIAL (BEAKER) (test nfkn=824) 24 mmol/L 21-29 BASE EXCESS ARTERIAL (BEAKER) (test ator=875) -1.7 mmol/L -2.0-3.0 PATIENT TEMPERATURE (BEAKER) (test icpz=5066) 37.0 C FIO2 (BEAKER) (test ltjn=4395) 28.0 % [id number] 16:44:00 Test Item Value Reference Range Comments PHOSPHORUS (BEAKER) (test ogtd=653) 4.1 mg/dL 2.3-4.7 [id number] 16:44:00 Test Item Value Reference Range Comments MAGNESIUM (BEAKER) (test lcmu=453) 1.9 mg/dL 1.6-2.6 HEPATIC FUNCTION [id number] 16:44:00 Test Item Value Reference Range Comments TOTAL PROTEIN (BEAKER) (test eqvf=902) 6.9 gm/dL 6.0-8.3 ALBUMIN (BEAKER) (test ookt=9603) 3.5 g/dL 3.5-5.0 BILIRUBIN TOTAL (BEAKER) (test kvcn=638) 0.9 mg/dL 0.2-1.2 BILIRUBIN DIRECT (BEAKER) (test ybpi=970) 0.6 mg/dL 0.1-0.5 ALKALINE PHOSPHATASE (BEAKER) (test ivsr=190) 245 U/L 40-150 AST (SGOT) (BEAKER) (test nuxe=065) 51 U/L 5-34 ALT (SGPT) (BEAKER) (test hftp=999) 18 U/L 6-55 VANCOMYCIN LEVEL, [id number] 16:41:00 Test Item Value Reference Range Comments VANCOMYCIN RANDOM (BEAKER) (test aobh=556) 18.3 ug/mL Reference Range: No NormalsOXYGEN SATURATION, [id number] 16:40:00 Test Item Value Reference Range Comments O2 SATURATION (MEASURED) (BEAKER) (test esda=7328) 62.7 % If patient has internal jugular ( IJ) or subclavian central line or PICC line. Draw from distal port. Label as central venous oxygen.LACTIC ACID, VENOUS, WHOLE [id number] 16:38:00 Test Item Value Reference Range Comments LACTATE BLOOD VENOUS (2) (BEAKER) (test 1.2 mmol/L 0.5-2.2 rfxp=3252) CBC W/PLT COUNT & AUTO [id number] 16:35:00 Test Item Value Reference Range Comments WHITE BLOOD CELL COUNT (BEAKER) (test vkgo=165) 26.9 K/ L 3.5-10.5 RED BLOOD CELL COUNT (BEAKER) (test ddud=453) 3.17 M/ L 3.93-5.22 HEMOGLOBIN (BEAKER) (test jrra=142) 8.8 GM/DL 11.2-15.7 HEMATOCRIT (BEAKER) (test olsf=596) 29.6 % 34.1-44.9 MEAN CORPUSCULAR VOLUME (BEAKER) (test gxxh=573) 93.4 fL 79.4-94.8 MEAN CORPUSCULAR HEMOGLOBIN (BEAKER) (test 27.8 pg 25.6-32.2 qxub=556) MEAN CORPUSCULAR HEMOGLOBIN CONC (BEAKER) (test 29.7 GM/DL 32.2-35.5 qfiw=314) RED CELL DISTRIBUTION WIDTH (BEAKER) (test 15.3 % 11.7-14.4 frlm=040) PLATELET COUNT (BEAKER) (test avbh=107) 149 K/CU MM 150-450 MEAN PLATELET VOLUME (BEAKER) (test vnrx=761) 10.6 fL 9.4-12.3 NUCLEATED RED BLOOD CELLS (BEAKER) (test 0 /100 WBC 0-0 djal=899) NEUTROPHILS RELATIVE PERCENT (BEAKER) (test 88 % thgk=786) LYMPHOCYTES RELATIVE PERCENT (BEAKER) (test 4 % uwjc=977) MONOCYTES RELATIVE PERCENT (BEAKER) (test 6 % meln=016) EOSINOPHILS RELATIVE PERCENT (BEAKER) (test 1 % hmak=457) BASOPHILS RELATIVE PERCENT (BEAKER) (test 0 % kngc=298) NEUTROPHILS ABSOLUTE COUNT (BEAKER) (test 23.68 K/ L 1.56-6.13 ovoa=774) LYMPHOCYTES ABSOLUTE COUNT (BEAKER) (test 0.94 K/ L 1.18-3.74 vpka=844) MONOCYTES ABSOLUTE COUNT (BEAKER) (test 1.53 K/ L 0.24-0.36 rajk=134) EOSINOPHILS ABSOLUTE COUNT (BEAKER) (test 0.32 K/ L 0.04-0.36 scgi=625) BASOPHILS ABSOLUTE COUNT (BEAKER) (test 0.08 K/ L 0.01-0.08 woho=358) IMMATURE GRANULOCYTES-RELATIVE PERCENT (BEAKER) 1 % 0-1 (test bgqw=3529) HEP B SURFACE [id number] 15:58:00 Test Item Value Reference Range Comments [...] Negative (qualifier Negative value) CBC WITH AUTO [id number] 07:16:00 Test Item Value Reference Range Comments [...] 1.0-3.0 IG% (test code=IG%) 1.4 % 0.0-0.4 [id number] 07:13:00 Test Item Value Reference Range Comments [...] mL/min/1.73m\\S\\2 EGFR if Non- 11 Estimated Glomerular Bahamian (test mL/min/1.73m\\S\\2 Filtration Rate (eGFR) code=EGFRNA) Reference [...] management of chronic kidney failure. TYPE & [id number] 15:35:00 Test Item Value Reference Range Comments ABO Blood Type (test code=ABO) A Rh (test code=RH) Negative Antibody Screen (test code=ABSCR) Negative Negative ARMBAND# (test code=ARMBAND) FF 84 337 [id number] 13:49:00 Test Item Value Reference Range Comments [...] mL/min/1.73m\\S\\2 EGFR if Non- 10 Estimated Glomerular [place]ian (test mL/min/1.73m\\S\\2 Filtration Rate (eGFR) code=EGFRNA) Reference [...] management of chronic kidney failure. er4PT AND [id number] 14:13:00 Test Item Value Reference Range Comments Protime (test code=PT) 9.8 seconds 9.0-11.9 INR (test code=INR) 1.0 0.9-1.1 INR results are intended ONLY to monitor Oral Anticoagulant therapy in stablized patients. The INR Therapeutic Range is 2.0 - 3.0 Patients with a mechanical heart, the INR Range is 2.5 - 3.5 [id number] 14:13:00 Test Item Value Reference Range Comments aPTT (test code=PTT) 28.2 seconds 23.0-33.0 CBC WITH AUTO [id number] 13:39:00 Test Item Value Reference Range Comments [...] IG% (test code=IG%) 1.7 % 0.0-0.4 AUTO [id number] 13:25:00 Test Item Value Reference Range Comments [...] mL/min/1.73m\\S\\2 EGFR if Non- 10 Estimated Glomerular [place] (test mL/min/1.73m\\S\\2 Filtration Rate (eGFR) code=EGFRNA) Reference [...] management of chronic kidney failure. TYPE & [id number] 12:40:00 Test Item Value Reference Range Comments ABO Blood Type (test code=ABO) A Rh (test code=RH) Negative Antibody Screen (test code=ABSCR) Negative Negative ARMBAND# (test code=ARMBAND) FF 12 500 [id number] 06:38:00 Test Item Value Reference Range Comments [...] mL/min/1.73m\\S\\2 EGFR if Non- 12 Estimated Glomerular [place] (test mL/min/1.73m\\S\\2 Filtration Rate (eGFR) code=EGFRNA) Reference [...] of chronic kidney failure. CBC WITH AUTO [id number] 06:35:00 Test Item Value Reference Range Comments [...] (test code=IG%) 0.4 % 0.0-0.4 CBC AUTO [id number] 06:33:00 Test Item Value Reference Range Comments aPTT (test code=PTT) 29.4 seconds 23.0-33.0 PT AND [id number] 06:33:00 Test Item Value Reference Range Comments Protime (test code=PT) 10.1 seconds 9.0-11.9 INR (test code=INR) 1.0 0.9-1.1 INR results are intended ONLY to monitor Oral Anticoagulant therapy in stablized patients. The INR Therapeutic Range is 2.0 - 3.0 Patients with a mechanical heart, the INR Range is 2.5 - 3.5 [id number] 10:05:00 Test Item Value Reference Range Comments [...] mL/min/1.73m\\S\\2 EGFR if Non- 15 Estimated Glomerular [place] (test mL/min/1.73m\\S\\2 Filtration Rate (eGFR) code=EGFRNA) Reference [...] PLATELET CLUMPING. THIS IS A HEMOGRAM ONLYRBC, [id number] 03:00:00 Test Item Value Reference Range Comments RBC Unit (test code=RBCUNIT) Released for Transfusion RBC, [id number] 03:00:00 Test Item Value Reference Range Comments RBC Unit (test code=RBCUNIT) Released for Transfusion CROSSMATCH x 12:53:00Completed: Compatible Ready to TransfuseTYPE & amp; [id number] 12:52:00 Test Item Value Reference Range Comments ABO Blood Type (test code=ABO) A Rh (test code=RH) Negative Antibody Screen (test code=ABSCR) Negative Negative ARMBAND# (test code=ARMBAND) FF 12 500 HEP B SURFACE [id number] 07:50:00 Test Item Value Reference Range Comments [...] Negative (qualifier Negative value) CBC WITH AUTO [id number] 07:17:00 Test Item Value Reference Range Comments [...] called to Gary DIAZ RN. K3 by [id number] on 08/10/2017 07:16 AM. Results were readback by Claudine DE LA CRUZ RN..[id number] 07:17:00 Test Item Value Reference Range Comments [...] mL/min/1.73m\\S\\2 EGFR if Non- 13 Estimated Glomerular [place]ian (test mL/min/1.73m\\S\\2 Filtration Rate (eGFR) code=EGFRNA) Reference Intervals Decision Points for 18 years and older and average body mass: >=60 Does not exclude kidney disease. 30 - 59 Suggests moderate chronic kidney disease and indicates the need for further investigation including assessment of proteinuria and cardiovascular factors. < 30 Usually indicates a need for referral for assessment and management of chronic kidney failure. [id number] 19:07:00 Test Item Value Reference Range Comments aPTT (test code=PTT) 29.9 seconds 23.0-33.0 PT AND [id number] 19:07:00 Test Item Value Reference Range Comments Protime (test code=PT) 10.1 seconds 9.0-11.9 INR (test code=INR) 1.0 0.9-1.1 INR results are intended ONLY to monitor Oral Anticoagulant therapy in stablized patients. The INR Therapeutic Range is 2.0 - 3.0 Patients with a mechanical heart, the INR Range is 2.5 - 3.5 [id number] 18:35:00 Test Item Value Reference Range Comments [...] mL/min/1.73m\\S\\2 EGFR if Non- 13 Estimated Glomerular [place] (test mL/min/1.73m\\S\\2 Filtration Rate (eGFR) code=EGFRNA) Reference [...] of chronic kidney failure. CBC WITH AUTO [id number] 18:19:00 Test Item Value Reference Range Comments [...] IG% (test code=IG%) 0.4 % 0.0-0.4 AUTO [id number] 17:15:00 Test Item Value Reference Range Comments [...] (test code=BGCTHB) 8.3 gm/dl 11.5-17.4 O2Hb (test code=RZIS9BQ) 94.9 % 95.0-99.0 COHb (test code=BGFCOHB) <2.8 [...] Notified (test code=BGTMNOTIFIED) 15:59 O2 Device (test code=BYJ2LLN8) Room Air Instrument ID (test code=BGINSTRID) [id number] Reported By (test code=BGREPORTEDBY) ROSALINO HUFF [id number] 09:50:00 Test Item Value Reference Range Comments [...] mL/min/1.73m\\S\\2 EGFR if Non- 14 Estimated Glomerular [place] (test mL/min/1.73m\\S\\2 Filtration Rate (eGFR) code=EGFRNA) Reference [...] values were called to Tracy AGARWAL by [id number] on 08/07/2017 09:41 AM. Results were read back by Tracy AGARWAL.CULTURE, [id number] 07:53:00Specimen : AbscessCollected: 07/26/2017 20:47 Status: Final [...] 09:58: Culture Result (Prelim) (Prelim) Many DiptheroidsCULTURE, [id number] 06:50:00To start 15mins after 1st cultureSpecimen: BloodCollected: 07/24/2017 00:38 Status: Final Last Updated: 07/29/2017 06: 49 (1) To start 15mins after 1st culture Culture Result (Final) (Final ) No Growth After 5 DaysCULTURE, [id number] 06:50:00Specimen: BloodCollected: 07/24/2017 00:18 Status: Final Last Updated: 07/29/2017 06: 49 Culture Result (Final) (Final) No Growth After 5 DaysED RAPID [id number] 04:24:00 Test Item Value Reference Range Comments CKMB (BIOSITE) (test code=BIOCKMB) <1.0 ng/ml 0.0-2.5 TROPONIN-I (BIOSITE) (test code=BIOTROP) <0.050 ng/ml 0.000-0.050 MYOGLOBIN (BIOSITE) (test code=BIOMYO) 166.0 ng/ml 0.0-170.0 SERIAL INSTRUMENT NUMBER (test code=SERIAL) [id number] ED RAPID [id number] 01:05:00 Test Item Value Reference Range Comments CKMB (BIOSITE) (test code=BIOCKMB) <1.0 ng/ml 0.0-2.5 TROPONIN-I (BIOSITE) (test code=BIOTROP) <0.050 ng/ml 0.000-0.050 MYOGLOBIN (BIOSITE) (test code=BIOMYO) 203.0 ng/ml 0.0-170.0 SERIAL INSTRUMENT NUMBER (test code=SERIAL) [id number] 01:02:00 Test Item Value Reference Range Comments [...] mL/min/1.73m\\S\\2 EGFR if Non- 16 Estimated Glomerular Bah[place]ian (test mL/min/1.73m\\S\\2 Filtration Rate (eGFR) code=EGFRNA) Reference [...] chronic kidney failure. ER 8CBC WITH AUTO [id number] 00:58:00 Test Item Value Reference Range Comments [...] IG% (test code=IG%) 0.5 % 0.0-0.4 ER [id number] 13:31:00 Test Item Value Reference Range Comments [...] mL/min/1.73m\\S\\2 EGFR if Non- 11 Estimated Glomerular [place] (test mL/min/1.73m\\S\\2 Filtration Rate (eGFR) code=EGFRNA) Reference [...] of chronic kidney failure. CBC WITH AUTO [id number] 13:08:00 Test Item Value Reference Range Comments [...] 0 /100WBC 0-2 code=NRBC_AUTO) HEP B SURFACE [id number] 15:00:00 Test Item Value Reference Range Comments [...] to HBV infection. HEPATITIS B CORE AB, [id number] 10:03:00 Test Item Value Reference Range Comments HEPATITIS B CORE AB TOTAL (test code=HEPBCORE) 2.97 Negative [id number] 09:16:00 Test Item Value Reference Range Comments [...] mL/min/1.73m\\S\\2 EGFR if Non- 13 Estimated Glomerular [place] (test mL/min/1.73m\\S\\2 Filtration Rate (eGFR) code=EGFRNA) Reference [...] management of chronic kidney failure. ERYTHROCYTE SED [id number] 09:16:00 Test Item Value Reference Range Comments [...] 50-999 years old=0-25 mm/hr CBC WITH AUTO [id number] 08:46:00 Test Item Value Reference Range Comments [...] IG% (test code=IG%) 0.7 % 0.0-0.4 LIPASE, [id number] 18:05:00 Test Item Value Reference Range Comments Lipase (test code=LIPA) 42 U/L 8-223 AMYLASE, [id number] 18:05:00 Test Item Value Reference Range Comments Amylase (test code=AMYL) 53 U/L 12-103 C-REACTIVE [id number] 17:24:00 Test Item Value Reference Range Comments C REACTIVE PROTEIN (test code=CRP) 0.7 ng/ml 0.0-0.9 [id number] 09:07:00 Test Item Value Reference Range Comments [...] mL/min/1.73m\\S\\2 EGFR if Non- 10 Estimated Glomerular [place] (test mL/min/1.73m\\S\\2 Filtration Rate (eGFR) code=EGFRNA) Reference [...] of chronic kidney failure. CBC WITH AUTO [id number] 08:35:00 Test Item Value Reference Range Comments [...] % 0.0-0.4 CBC AUTO diffCBC WITH AUTO [id number] 05:58:00 Test Item Value Reference Range Comments [...] 1.0-3.0 IG% (test code=IG%) 0.8 % 0.0-0.4 [id number] 05:41:00 Test Item Value Reference Range Comments [...] mL/min/1.73m\\S\\2 EGFR if Non- 12 Estimated Glomerular [place] (test mL/min/1.73m\\S\\2 Filtration Rate (eGFR) code=EGFRNA) Reference Intervals Decision Points for 18 years and older and average body mass: >=60 Does not exclude kidney disease. 30 - 59 Suggests moderate chronic kidney disease and indicates the need for further investigation including assessment of proteinuria and cardiovascular factors. < 30 Usually indicates a need for referral for assessment and management of chronic kidney failure. [id number] 05:41:00 Test Item Value Reference Range Comments Magnesium (test code=MG) 2.0 mg/dl 1.6-2.3 HEP B SURFACE [id number] 08:16:00 Test Item Value Reference Range Comments [...] (test code=HBSAG) Negative (qualifier Negative value) GLYCOSALATED [id number] 01:37:00 Test Item Value Reference Range Comments [...] ARE NOT INTERCHANGEABLE BETWEEN METHODS. 12-06-2006 FREE [id number] 01:14:00 Test Item Value Reference Range Comments Free T4 (test code=FT4) 1.24 ng/dl 0.78-2.19 CORONARY [id number] 00:54:00 Test Item Value Reference Range Comments [...] Average vLDL (test code=VLDL) 29 mg/dl 20-50 [id number] 00:52:00 Test Item Value Reference Range Comments Magnesium (test code=MG) 2.0 mg/dl 1.6-2.3 [id number] 00:52:00 Test Item Value Reference Range Comments [...] mL/min/1.73m\\S\\2 EGFR if Non- 17 Estimated Glomerular Bahamian (test mL/min/1.73m\\S\\2 Filtration Rate (eGFR) code=EGFRNA) Reference [...]
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
[2019-07-17 21:21] VITALS: TEMP 98.5
[2019-07-17 21:28] VITALS: BP 167/60; O2SAT 98
== END 2019-07-17 21:09 | disposition home or self-care (01) ==
LOC: ER 18:12
DX: M54.2 Cervicalgia (principal); V43.62XA Car passenger injured in collision with other type car in traffic accident, initial encounter; Y93.89 Activity, other specified; Y92.410 Unspecified street and highway as the place of occurrence of the external cause; J44.9 Chronic obstructive pulmonary disease, unspecified; E11.9 Type 2 diabetes mellitus without complications; E78.5 Hyperlipidemia, unspecified; I10 Essential (primary) hypertension; E03.9 Hypothyroidism, unspecified; F32.9 Major depressive disorder, single episode, unspecified; M10.9 Gout, unspecified; I50.9 Heart failure, unspecified; Z88.0 Allergy status to penicillin; Z88.1 Allergy status to other antibiotic agents
CPT/HCPCS: 70450; 72125; 99284

== ENCOUNTER 2019-08-08 19:52 | Emergency (ER) | payer MEDICAID ==
--- OUTSIDE RECORDS SUMMARY | 2019-08-08 20:02 | XMS REPORT | Clinical Summary ---
:1955 Author Organization [facility] Address [address] [place] [address] Care Team Providers Name Role Phone Radhika [...] Shorty Pennington, End-stage renal disease on hemodialysis ([facility]); Problem with vascular access; Mamadou Arreola's joint of foot, non-diabetic, right; MD Davis Pressure injury of right heel, stage 4 ([facility]); Emily Weston Elevated troponin; MD Mounika LBBB (left bundle branch block); Lars Lott Chronic systolic heart failure ([facility] Nava MD ESRD (end stage renal disease) on dialysis (HCC); MRSA bacteremia; Troponin level elevated; Anemia of chronic disease; Hypokalemia 11/22/2018 Orders Only General Internal Medicine 11/22/2018 Telephone Critical Care Ben Bentley, [facility] Medicine Shorty Pennington MD after 08/07/2018 Social History Tobacco Use Types Packs/Day Years Used Date Never Smoker Smokeless Tobacco: Never Used Sex Assigned at Date Recorded Not on file Job Start Date Occupation Industry Not on file Not on file Not on file Travel History Travel Start Travel End No recent travel history available. Last Filed Vital Signs Vital Sign Reading Time Taken Blood Pressure 124/57 12/08/2018 4:37 AM [facility] Pulse 82 12/08/2018 4:37 AM [facility] [facility] Temperature 36.8 C (98.2 F) 12/08/2018 4:37 AM [facility] Respiratory Rate 16 12/08/2018 4:37 AM [facility] [facility] Oxygen Saturation 95% 12/08/2018 4:37 AM [employer] [facility] Inhaled Oxygen Concentration - - Weight 97.9 kg (215 lb 13.3 oz) 12/07/2018 8:42 AM [employer] Height 170.2 cm (5' 7") 11/22/2018 3:09 PM [employer] [facility] Body Mass Index 33.8 12/07/2018 8:42 AM [facility] Plan of Treatment Not on file Procedures Procedure Name Priority Date/Time Associated Comments Diagnosis REPORT OF PROCEDURE - 12/28/2018 10:30 ENDOSCOPY SCAN AM [facility] RHYTHM STRIP - SCAN 12/28/2018 10:30 AM [facility] POCT-GLUCOSE METER Routine 12/08/2018 9:14 Results for this AM [facility] procedure are in the results section. CBC W/PLT COUNT & Routine 12/08/2018 5:56 Results for this AUTO DIFFERENTIAL AM [employer] [facility] procedure are in the results section. BASIC METABOLIC PANEL Routine 12/08/2018 5:56 Results for this (7) AM [facility] procedure are in the results section. CBC W/PLT COUNT & Routine 12/08/2018 5:56 Results for this AUTO DIFFERENTIAL AM [employer] procedure are in the results section. POCT-GLUCOSE METER Routine 12/07/2018 9:14 Results for this PM [employer] [facility] procedure are in the results section. XR ABDOMEN 1 VIEW JORDYN 12/07/2018 6:43 Results for this PM [employer] [facility] procedure are in the results section. POCT-GLUCOSE METER Routine 12/07/2018 5:48 Results for this PM [employer] [facility] procedure are in the results section. POCT-GLUCOSE METER Routine 12/07/2018 2:13 Results for this PM [employer] [facility] procedure are in the results section. HEMODIALYSIS Routine 12/07/2018 12:46 Results for this INPATIENT PM [employer] [facility] procedure are in the results section. HEMODIALYSIS Routine 12/07/2018 8:12 INPATIENT AM [facility] POCT-GLUCOSE METER Routine 12/07/2018 7:50 Results for this AM [facility] procedure are in the results section. CBC W/PLT COUNT & Routine 12/07/2018 5:32 Results for this AUTO DIFFERENTIAL AM [employer] [facility] procedure are in the results section. MAGNESIUM Routine 12/07/2018 5:32 Results for this AM [facility] procedure are in the results section. BASIC METABOLIC PANEL Routine 12/07/2018 5:32 Results for this (7) AM [facility] procedure are in the results section. CBC W/PLT COUNT & Routine 12/07/2018 5:32 Results for this AUTO DIFFERENTIAL AM [employer] [facility] procedure are in the results section. POCT-GLUCOSE METER Routine 12/06/2018 9:30 Results for this PM [employer] [facility] procedure are in the results section. POCT-GLUCOSE METER Routine 12/06/2018 5:41 Results for this PM [employer] procedure are in the results section. BLOOD CULTURE Routine 12/06/2018 2:55 Results for this PM [employer] procedure are in the results section. NM MYOCARDIAL Routine 12/06/2018 1:20 Results for this PERFUSION SPECT, PM [employer] [facility] procedure are in PHARM(LEXISCAN) the results section. POCT-GLUCOSE METER Routine 12/06/2018 12:29 Results for this PM [facility] procedure are in the results section. POCT-GLUCOSE METER Routine 12/06/2018 11:06 Results for this AM [facility] procedure are in the results section. TREADMILL Routine 12/06/2018 9:38 Results for this TOLERANCE(NON-NUCLEAR AM [facility] procedure are in TREADMILL) the results section. ECG 12-LEAD Routine 12/06/2018 9:12 AM [facility] Procedure Note - Interface, External Ris In - 12/06/2018 9:56 AM [facility] Ventricular Rate 90 BPM Atrial Rate 90 BPM P-R Interval 178 ms QRS Duration 152 ms Q-T Interval 424 ms QTC Calculation(Bazett) 518 ms P Mac[place] 69 degrees R Macomb 70 degrees T [place] 63 degrees Normal sinus rhythm Left bundle branch block Abnormal ECG ECG 12-LEAD Routine 12/06/2018 9:11 AM [facility] Procedure Note - Interface, External Ris In - 12/06/2018 9:56 AM [facility] Ventricular Rate 91 BPM Atrial Rate 91 BPM P-R Interval 172 ms QRS Duration 158 ms Q-T Interval 408 ms QTC Calculation(Bazett) 501 ms P Mac[place] 60 degrees R Macomb 74 degrees T [place] 206 degrees Sinus rhythm with Fusion complexes Left bundle branch block Abnormal ECG ECG 12-LEAD Routine 12/06/2018 9:03 AM [facility] ECG 12-LEAD Routine 12/06/2018 9:03 AM [facility] Procedure Note - Interface, External Ris In - 12/06/2018 9:56 AM [facility] Ventricular Rate 91 BPM Atrial Rate 91 BPM P-R Interval 172 ms QRS Duration 152 ms Q-T Interval 422 ms QTC Calculation(Bazett) 519 ms P Macomb 68 degrees R [place] 67 degrees T [place] 79 degrees Normal sinus rhythm Left bundle branch block Abnormal ECG POCT-GLUCOSE METER Routine 12/06/2018 6:16 AM [facility] CBC W/PLT COUNT & AUTO Routine 12/06/2018 1:11 AM [facility] Results for this DIFFERENTIAL procedure are in the results section. APTT Routine 12/06/2018 1:11 AM [facility] BASIC METABOLIC PANEL (7) Routine 12/06/2018 1:11 AM [facility] CBC W/PLT COUNT & AUTO Routine 12/06/2018 1:11 AM [facility] Results for this DIFFERENTIAL procedure are in the results section. VANCOMYCIN LEVEL, RANDOM Routine 12/06/2018 1:11 AM [facility] POCT-GLUCOSE METER Routine 12/05/2018 9:20 PM [facility] TRANSFUSION SERVICE REPORT - 12/05/2018 5:50 PM [facility] SCAN POCT-GLUCOSE METER Routine 12/05/2018 4:27 PM [employer] [facility] POCT-GLUCOSE METER Routine 12/05/2018 12:18 PM [employer] APTT Routine 12/05/2018 8:09 AM [facility] CBC W/PLT COUNT & AUTO Routine 12/05/2018 8:00 AM [facility] Results for this DIFFERENTIAL procedure are in the results section. BASIC METABOLIC PANEL (7) Routine 12/05/2018 8:00 AM [facility] CBC W/PLT COUNT & AUTO Routine 12/05/2018 8:00 AM [facility] Results for this DIFFERENTIAL procedure are in the results section. PREPARE LEUKO-REDUCED RBC Routine 12/04/2018 11:54 PM [facility] APTT Routine 12/04/2018 11:36 PM [facility] POCT-GLUCOSE METER Routine 12/04/2018 8:48 PM [facility] TRANSFUSION SERVICE REPORT - 12/04/2018 5:50 PM [employer] [facility] SCAN POCT-GLUCOSE METER Routine 12/04/2018 5:02 PM [employer] [facility] APTT Routine 12/04/2018 4:05 PM [employer] [facility] POCT-GLUCOSE METER Routine 12/04/2018 12:31 PM [employer] [facility] APTT Routine 12/04/2018 9:59 AM [facility] POCT-GLUCOSE METER Routine 12/04/2018 8:10 AM [facility] CBC W/PLT COUNT & AUTO Routine 12/04/2018 5:33 AM [facility] Results for this DIFFERENTIAL procedure are in the results section. VANCOMYCIN LEVEL, RANDOM Routine 12/04/2018 5:33 AM [facility] BASIC METABOLIC PANEL (7) Routine 12/04/2018 5:33 AM [facility] CBC W/PLT COUNT & AUTO Routine 12/04/2018 5:33 AM [facility] Results for this DIFFERENTIAL procedure are in the results section. POCT-GLUCOSE METER Routine 12/03/2018 9:16 PM [employer] POCT-GLUCOSE METER Routine 12/03/2018 5:04 PM [facility] [facility] TRANSFUSE LEUKO-REDUCED RED Routine 12/03/2018 3:10 PM [facility] BLOOD CELLS POCT-GLUCOSE METER Routine 12/03/2018 12:08 PM [employer] TYPE AND SCREEN, AUTOMATED Routine 12/03/2018 8:46 AM [facility] POCT-GLUCOSE METER Routine 12/03/2018 8:11 AM [facility] CBC W/PLT COUNT & AUTO Routine 12/03/2018 5:59 AM [facility] [facility] Results for this DIFFERENTIAL procedure are in the results section. BASIC METABOLIC PANEL (7) Routine 12/03/2018 5:59 AM [employer] CBC W/PLT COUNT & AUTO Routine 12/03/2018 5:59 AM [facility] Results for this DIFFERENTIAL procedure are in the results section. HEMODIALYSIS INPATIENT Routine 12/02/2018 9:15 PM [employer] IR TUNNELED DIALYSIS CATHETER Routine 12/02/2018 1:10 PM [employer] HEMOGLOBIN AND HEMATOCRIT Routine 12/02/2018 8:24 AM [employer] [facility] POCT-GLUCOSE METER Routine 12/02/2018 7:33 AM [employer] POCT-GLUCOSE METER Routine 12/02/2018 6:30 AM [employer] [facility] CBC W/PLT COUNT & AUTO Routine 12/02/2018 5:42 AM [employer] [facility] Results for this DIFFERENTIAL procedure are in the results section. PT/APTT Routine 12/02/2018 5:42 AM [employer] [facility] BASIC METABOLIC PANEL (7) Routine 12/02/2018 5:42 AM [employer] [facility] CBC W/PLT COUNT & AUTO Routine 12/02/2018 5:42 AM [employer] [facility] Results for this DIFFERENTIAL procedure are in the results section. VANCOMYCIN LEVEL, RANDOM Routine 12/02/2018 5:42 AM [facility] POCT-GLUCOSE METER Routine 12/01/2018 11:36 PM [employer] [facility] MR LOWER EXT JOINT WITHOUT IV Routine 12/01/2018 7:00 PM [employer] [facility] Results for this CONTRAST RIGHT procedure are in the results section. POCT-GLUCOSE METER Routine 12/01/2018 12:02 PM [employer] [facility] CBC W/PLT COUNT & AUTO Routine 12/01/2018 11:33 AM [employer] [facility] Results for this DIFFERENTIAL procedure are in the results section. BASIC METABOLIC PANEL (7) Routine 12/01/2018 11:33 AM [employer] [facility] CBC W/PLT COUNT & AUTO Routine 12/01/2018 11:33 AM [employer] [facility] Results for this DIFFERENTIAL procedure are in the results section. XR HIP RIGHT 1 VIEW Routine 12/01/2018 11:16 AM [employer] [facility] POCT-GLUCOSE METER Routine 12/01/2018 7:39 AM [employer] VANCOMYCIN LEVEL, RANDOM Routine 12/01/2018 5:58 AM [employer] GENTAMICIN LEVEL, TROUGH Routine 11/30/2018 8:57 PM [employer] [facility] POCT-GLUCOSE METER Routine 11/30/2018 8:16 PM [employer] [facility] POCT-GLUCOSE METER Routine 11/30/2018 6:03 PM [facility] TRANSFUSION SERVICE REPORT - 11/30/2018 6:00 PM [employer] SCAN HEMODIALYSIS INPATIENT Routine 11/30/2018 4:43 PM [employer] [facility] POCT-GLUCOSE METER Routine 11/30/2018 1:41 PM [employer] POCT-GLUCOSE METER Routine 11/30/2018 7:36 AM [facility] [facility] CBC W/PLT COUNT & AUTO Routine 11/30/2018 6:22 AM [employer] Results for this DIFFERENTIAL procedure are in the results section. BASIC METABOLIC PANEL (7) Routine 11/30/2018 6:22 AM [employer] [facility] CBC W/PLT COUNT & AUTO Routine 11/30/2018 6:22 AM [employer] Results for this DIFFERENTIAL procedure are in the results section. VANCOMYCIN LEVEL, RANDOM Routine 11/30/2018 6:22 AM [facility] PREPARE LEUKO-REDUCED RBC Routine 11/29/2018 11:54 PM [employer] MAN POCT-GLUCOSE METER Routine 11/29/2018 9:16 PM [employer] [facility] TRANSFUSION SERVICE REPORT - 11/29/2018 6:00 PM [employer] [facility] SCAN POCT-GLUCOSE METER Routine 11/29/2018 5:48 PM [employer] [facility] POCT-GLUCOSE METER Routine 11/29/2018 1:21 PM [employer] POCT-GLUCOSE METER Routine 11/29/2018 8:20 AM [employer] CBC W/PLT COUNT & AUTO Routine 11/29/2018 5:59 AM [employer] [facility] Results for this DIFFERENTIAL procedure are in the results section. PHOSPHORUS Routine 11/29/2018 5:59 AM [facility] MAGNESIUM Routine 11/29/2018 5:59 AM [facility] BASIC METABOLIC PANEL (7) Routine 11/29/2018 5:59 AM [employer] [facility] CBC W/PLT COUNT & AUTO Routine 11/29/2018 5:59 AM [employer] [facility] Results for this DIFFERENTIAL procedure are in the results section. VANCOMYCIN LEVEL, RANDOM Routine 11/29/2018 5:59 AM [facility] POCT-GLUCOSE METER Routine 11/29/2018 12:34 AM [facility] HEMODIALYSIS INPATIENT Routine 11/28/2018 11:37 PM [employer] HEMOGLOBIN AND HEMATOCRIT Routine 11/28/2018 11:15 PM [employer] [facility] TRANSFUSE LEUKO-REDUCED RED Routine 11/28/2018 8:13 PM [employer] [facility] BLOOD CELLS POCT-GLUCOSE METER Routine 11/28/2018 5:43 PM [employer] [facility] ECHOCARDIOGRAM REPORT - SCAN 11/28/2018 1:20 PM [facility] POCT-GLUCOSE METER Routine 11/28/2018 12:[address] ABDOMEN/PELVIS WITHOUT IV STAT 11/28/2018 9:19 AM [employer] Results for this CONTRAST procedure are in the results section. PROTHROMBIN TIME/INR STAT 11/28/2018 9:01 AM [facility] TRANSESOPHAGEAL ECHO Routine 11/28/2018 8:58 AM [facility] TYPE AND SCREEN, AUTOMATED Routine 11/28/2018 8:52 AM [employer] HEMOGLOBIN AND HEMATOCRIT STAT 11/28/2018 8:52 AM [facility] BLOOD CULTURE Routine 11/28/2018 8:52 AM [facility] CBC W/PLT COUNT & AUTO Routine 11/28/2018 5:57 AM [employer] [facility] Results for this DIFFERENTIAL procedure are in the results section. APTT Routine 11/28/2018 5:57 AM [employer] [facility] CBC W/PLT COUNT & AUTO Routine 11/28/2018 5:57 AM [employer] [facility] Results for this DIFFERENTIAL procedure are in the results section. BASIC METABOLIC PANEL (7) Routine 11/28/2018 5:57 AM [employer] [facility] POCT-GLUCOSE METER Routine 11/27/2018 9:29 PM [employer] [facility] APTT Routine 11/27/2018 6:12 PM [employer] [facility] POCT-GLUCOSE METER Routine 11/27/2018 1:14 PM [employer] [facility] APTT Routine 11/27/2018 10:58 AM [employer] [facility] POCT-GLUCOSE METER Routine 11/27/2018 8:07 AM [facility] BLOOD CULTURE Routine 11/27/2018 6:55 AM [employer] CBC W/PLT COUNT & AUTO Routine 11/27/2018 4:29 AM [employer] [facility] Results for this DIFFERENTIAL procedure are in the results section. APTT Routine 11/27/2018 4:29 AM [employer] BASIC METABOLIC PANEL (7) Routine 11/27/2018 4:29 AM [employer] [facility] CBC W/PLT COUNT & AUTO Routine 11/27/2018 4:29 AM [employer] Results for this DIFFERENTIAL procedure are in the results section. VANCOMYCIN LEVEL, RANDOM Routine 11/27/2018 4:29 AM [facility] POCT-GLUCOSE METER Routine 11/26/2018 10:05 PM [facility] APTT Routine 11/26/2018 8:30 PM [facility] MAN APTT Routine 11/26/2018 6:17 PM [facility] POCT-GLUCOSE METER Routine 11/26/2018 5:09 PM [employer] [facility] POCT-GLUCOSE METER Routine 11/26/2018 12:41 PM [employer] [facility] APTT Routine 11/26/2018 10:31 AM [employer] CONT WAVE PULSED DOPPLER Routine 11/26/2018 8:22 AM [employer] MAN COLOR-FLOW MAPPING Routine 11/26/2018 8:22 AM [facility] MAN POCT-GLUCOSE METER Routine 11/26/2018 7:42 AM [employer] MAN POCT-GLUCOSE METER Routine 11/26/2018 3:21 AM [employer] MAN APTT Routine 11/26/2018 3:11 AM [facility] MAN POCT-GLUCOSE METER Routine 11/25/2018 10:12 PM [employer] MAN APTT Routine 11/25/2018 8:46 PM [employer] POCT-GLUCOSE METER Routine 11/25/2018 7:32 PM [facility] VANCOMYCIN LEVEL, RANDOM Routine 11/25/2018 6:13 PM [facility] HEPATITIS B SURFACE ANTIGEN Routine 11/25/2018 3:08 PM [facility] MAN APTT Routine 11/25/2018 3:08 PM [facility] HEMODIALYSIS INPATIENT Routine 11/25/2018 3:01 PM [facility] MAN APTT Routine 11/25/2018 12:10 PM [facility] BASIC METABOLIC PANEL (7) STAT 11/25/2018 12:10 PM [facility] MAN POCT-GLUCOSE METER Routine 11/25/2018 7:44 AM [facility] MAN APTT Routine 11/25/2018 6:23 AM [facility] MAN CBC W/PLT COUNT & AUTO STAT 11/25/2018 5:35 AM [facility] Results for this DIFFERENTIAL procedure are in the results section. CBC W/PLT COUNT & AUTO STAT 11/25/2018 5:35 AM [facility] Results for this DIFFERENTIAL procedure are in the results section. APTT Routine 11/24/2018 11:39 PM [employer] MAN PHOSPHORUS Routine 11/24/2018 11:39 PM [facility] MAN MAGNESIUM Routine 11/24/2018 11:39 PM [facility] MAN BASIC METABOLIC PANEL (7) STAT 11/24/2018 11:39 PM [employer] MAN POCT-GLUCOSE METER Routine 11/24/2018 10:04 PM [employer] MAN POCT-GLUCOSE METER Routine 11/24/2018 5:17 PM [employer] [facility] APTT Routine 11/24/2018 4:43 PM [employer] [facility] PT/APTT Routine 11/24/2018 4:43 PM [employer] [facility] POCT-GLUCOSE METER Routine 11/24/2018 12:28 PM [employer] [facility] APTT Routine 11/24/2018 9:37 AM [employer] [facility] POCT-GLUCOSE METER Routine 11/24/2018 7:38 AM [facility] [facility] CBC W/PLT COUNT & AUTO STAT 11/24/2018 4:03 AM [facility] Results for this DIFFERENTIAL procedure are in the results section. PHOSPHORUS Routine 11/24/2018 4:03 AM [facility] MAGNESIUM Routine 11/24/2018 4:03 AM [facility] MAN TROPONIN I Routine 11/24/2018 4:03 AM [facility] MAN B-TYPE NATRIURETIC FACTOR Routine 11/24/2018 4:03 AM [facility] Results for this (BNP) procedure are in the results section. CBC W/PLT COUNT & AUTO STAT 11/24/2018 4:03 AM [facility] Results for this DIFFERENTIAL procedure are in the results section. BASIC METABOLIC PANEL (7) STAT 11/24/2018 4:03 AM [facility] LACTIC ACID, VENOUS Routine 11/24/2018 4:03 AM [facility] POCT-GLUCOSE METER Routine 11/23/2018 9:54 PM [facility] POCT-GLUCOSE METER Routine 11/23/2018 6:00 PM [facility] BLOOD CULTURE Routine 11/23/2018 3:40 PM [facility] MAN POCT-GLUCOSE METER Routine 11/23/2018 12:58 PM [facility] MAN VANCOMYCIN LEVEL, RANDOM Routine 11/23/2018 12:54 PM [facility] MAN CATHETER TIP CULTURE STAT 11/23/2018 12:54 PM [facility] MAN IR CENTRAL VENOUS CATHETER STAT 11/23/2018 12:38 PM [facility] Results for this PLACEMENT (JUGULAR OR procedure are in the FEMORAL) results section. ECG 12-LEAD Routine 11/23/2018 9:30 AM [facility] Procedure Note - Interface, External Ris In - 11/23/2018 9:37 AM [facility] Ventricular Rate 92 BPM Atrial Rate 92 BPM P-R Interval 156 ms QRS Duration 162 ms Q-T Interval 418 ms QTC Calculation(Bazett) 516 ms P [place] 52 degrees R [place] 38 degrees T [place] 103 degrees Normal sinus rhythm Left bundle branch block Abnormal ECG When compared with ECG of 22-NOV-2018 16:47, No significant change was found ECG 12-LEAD STAT 11/23/2018 9:30 AM [facility] ECHOCARDIOGRAM REPORT - SCAN 11/23/2018 9:00 AM [facility] XR ABDOMEN 1 VIEW STAT 11/23/2018 8:35 AM [facility] CALCIUM, IONIZED Routine 11/23/2018 7:27 AM [facility] CBC W/PLT COUNT & AUTO STAT 11/23/2018 7:00 AM [facility] Results for this DIFFERENTIAL procedure are in the results section. LIPASE STAT 11/23/2018 7:00 AM [facility] MAN TROPONIN I JORDYN 11/23/2018 7:00 AM [facility] MAN PHOSPHORUS Routine 11/23/2018 7:00 AM [facility] MAN MAGNESIUM Routine 11/23/2018 7:00 AM [facility] BASIC METABOLIC PANEL (7) Routine 11/23/2018 7:00 AM [facility] COMPREHENSIVE METABOLIC Routine 11/23/2018 7:00 AM [facility] Results for this PANEL procedure are in the results section. CBC W/PLT COUNT & AUTO STAT 11/23/2018 7:00 AM [facility] Results for this DIFFERENTIAL procedure are in the results section. LACTIC ACID, VENOUS Routine 11/23/2018 7:00 AM [facility] MAN PHOSPHORUS Routine 11/23/2018 1:26 AM [facility] MAN MAGNESIUM Routine 11/23/2018 1:26 AM [facility] MAN CALCIUM, IONIZED Routine 11/23/2018 1:26 AM [facility] MAN BASIC METABOLIC PANEL (7) Routine 11/23/2018 1:26 AM [facility] MAN POCT-GLUCOSE METER Routine 11/23/2018 12:27 AM [facility] MAN TROPONIN I Routine 11/22/2018 10:08 PM [facility] MAN LACTIC ACID, VENOUS STAT 11/22/2018 10:08 PM [facility] US ABDOMEN COMPLETE STAT 11/22/2018 6:56 PM [facility] LACTIC ACID, VENOUS STAT 11/22/2018 6:36 PM [facility] XR CHEST 1 VIEW STAT 11/22/2018 4:48 PM [facility] Results for this PORTABLE/BEDSIDE procedure are in the results section. ECG 12-LEAD Routine 11/22/2018 4:47 PM [facility] Procedure Note - Interface, External Ris In - 11/22/2018 5:11 PM [facility] Ventricular Rate 91 BPM Atrial Rate 91 BPM P-R Interval 162 ms QRS Duration 172 ms Q-T Interval 442 ms QTC Calculation(Bazett) 543 ms P [place] 6 degrees R [place]omb -18 degrees T [place] 70 degrees Normal sinus rhythm Left bundle branch block Abnormal ECG No previous ECGs available ECG 12-LEAD Routine 11/22/2018 4:47 PM [facility] BLOOD GAS, ARTERIAL STAT 11/22/2018 4:25 PM [facility] BLOOD CULTURE STAT 11/22/2018 4:25 PM [facility] (CELLAVISION MANUAL DIFF) Routine 11/22/2018 4:19 PM [facility] CBC W/PLT COUNT & AUTO STAT 11/22/2018 4:19 PM [facility] Results for this DIFFERENTIAL procedure are in the results section. VANCOMYCIN LEVEL, RANDOM STAT 11/22/2018 4:19 PM [facility] B-TYPE NATRIURETIC FACTOR Routine 11/22/2018 4:19 PM [facility] Results for this (BNP) procedure are in the results section. TSH/FREE T4 IF INDICATED Routine 11/22/2018 4:19 PM [facility] MAN TROPONIN I Routine 11/22/2018 4:19 PM [facility] CBC W/PLT COUNT & AUTO STAT 11/22/2018 4:19 PM [facility] Results for this DIFFERENTIAL procedure are in the results section. PROTHROMBIN TIME/INR STAT 11/22/2018 4:19 PM [facility] MAN MAGNESIUM STAT 11/22/2018 4:19 PM [facility] MAN PHOSPHORUS STAT 11/22/2018 4:19 PM [facility] BASIC METABOLIC PANEL (7) STAT 11/22/2018 4:19 PM [facility] HEPATIC FUNCTION PANEL STAT 11/22/2018 4:19 PM [facility] OXYGEN SATURATION, MEASURED STAT 11/22/2018 4:19 PM [facility] PROCALCITONIN STAT 11/22/2018 4:19 PM [facility] LACTIC ACID, VENOUS STAT 11/22/2018 4:19 PM [facility] BLOOD CULTURE IDENTIFICATION Routine 11/22/2018 4:19 PM [facility] Results for this PANEL procedure are in the results section. BLOOD CULTURE STAT 11/22/2018 4:19 PM [facility] 2D ECHO W/ DOPPLER STAT 11/22/2018 3:51 PM [facility] Results for this (CW/PW/COLOR) procedure are in the results section. after 08/07/2018 Results EKG-SCANNED (12/28/2018 10:30 AM [facility]) Narrative Performed At RHYTHM STRIP - SCAN (12/28/2018 10:30 AM [facility]) Narrative Performed At POC-Glucose meter (12/08/2018 9:14 AM [facility] MAN)Only the most recent of56 resultswithin the time period is included. POC-Glucose Meter 110Comment: TESTED AT 70 - 110 mg/dL [facility] [address] [facility] [id number] Specimen Blood Performing Organization Address City/State/Zipcode Phone Number [facility] [address] [place], [place] [id number] CENTER CBC with platelet count + automated diff (12/08/2018 5:56 AM K[employer]OCKOUT MAN)Only the most recent of16 resultswithin the time period is included. WBC 8.2 3.5 - 10.5 K/L [facility] RBC 2.79 (L) 3.93 - 5.22 M/L [facility] Hemoglobin 7.8 (L) 11.2 - 15.7 GM/DL [facility] Hematocrit 26.4 (L) 34.1 - 44.9 % [facility] MCV 94.6 79.4 - 94.8 fL [facility] MCH 28.0 25.6 - 32.2 pg [facility] MCHC 29.5 (L) 32.2 - 35.5 GM/DL [facility] RDW 14.5 (H) 11.7 - 14.4 % [facility] Platelets 299 150 - 450 K/CU MM [facility] MPV 10.0 9.4 - 12.3 fL [facility] nRBC 0 0 - 0 /100 WBC [facility] % Neutros 72 % [facility] % Lymphs 11 % [facility] % Monos 10 % [facility] % Eos 5 % [facility] % Baso 1 % [facility] # Neutros 5.93 1.56 - 6.13 K/L [facility] # Lymphs 0.87 (L) 1.18 - 3.74 K/L [facility] # Monos 0.84 (H) 0.24 - 0.36 K/L [facility] # Eos 0.44 (H) 0.04 - 0.36 K/L [facility] # Baso 0.09 (H) 0.01 - 0.08 K/L [facility] Immature Granulocytes-Relative 1 0 - 1 % [facility] Specimen Blood Performing Organization Address City/[facility]/Zipcode Phone Number [address] [address] [phone] [facility] Basic Metabolic Panel (12/08/2018 5:56 AM [employer] MAN)Only the most recent of18 resultswithin the time period is included. Sodium 139 136 - 145 meq/L [facility] Potassium 4.3 3.5 - 5.1 meq/L [facility] Chloride 104 98 - 107 meq/L [facility] CO2 26 22 - 29 meq/L [facility] BUN 31 (H) 7 - 21 mg/dL [facility] Creatinine 5.39 (H) 0.57 - 1.25 mg/dL [facility] Glucose 83 70 - 105 mg/dL [facility] Calcium 9.1 8.4 - 10.2 mg/dL [facility] [facility] EGFR 10Comment: ESTIMATED GFR IS mL/min/1.73 sq m [facility] NOT ACCURATE CREATININE [facility] CENTER CLEARANCE IN PREDICTING GLOMERULAR FILTRATION RATE. ESTIMATED GFR IS NOT APPLICABLE FOR DIALYSIS PATIENTS. Specimen Blood Performing Organization Address City/State/Zipcode Phone Number [place] [phone] [place] [address] DANIA XR abdomen / KUB 1 view (12/07/2018 6:43 PM KNOCKOUT MAN)Only the most recent of2 resultswithin the time period is included. Specimen Narrative Performed At FINAL REPORT [facility] EXAMINATION: SUPINE ABDOMEN CLINICAL INDICATION: [...] MD Report Verified Date/Time:12/08/2018 04:19:23 Reading Location: [address] Reading Room Procedure Note Interface, External Ris In - 12/08/2018 4:21 AM KNOCKOUT MAN FINAL REPORT EXAMINATION: SUPINE ABDOMEN CLINICAL INDICATION: [...] Report Verified Date/Time: 12/08/2018 04:19:23 Reading Location: [address] Reading Room Performing Organization Address City/State/Zipcode Phone Number [facility] HEMODIALYSIS INPATIENT (12/07/2018 12:46 PM KNOCKOUT MAN) Narrative Performed At Khai Angeles RN 12/07/2018 [...] 36.0 seconds Final Magnesium (12/07/2018 5:32 AM KNOCKOUT MAN)Only the most recent of7 resultswithin the time period is included. Magnesium 2.2 1.6 - 2.6 mg/dL [facility] Specimen Blood Performing Organization Address City/State/Zipcode Phone Number [address] [address] CENTER Blood culture (12/06/2018 2:55 PM KNOCKOUT MAN)Only the most recent of6 resultswithin the time period is included. Result No growth in 5 days [facility] Specimen Blood Performing Organization Address City/State/Zipcode Phone Number [address] [address] CENTER NM myocardial perfusion SPECT, pharm(Lexiscan) (12/06/2018 1:20 PM KNOCKOUT MAN) Specimen Narrative Performed At FINAL REPORT [facility] PROCEDURE:Rest/Stress MYOCARDIAL PERFUSION SPECT with regadenoson\\XA9\\ CPT CODE:71638 INDICATION:New onset heart failure, intermediate risk for [...] Extracardiac tracer distribution is normal.6. No previous [facility] study for comparison. Signed: Dariana Jones MD Report Verified Date/Time:12/06/2018 16:00:51 Reading Location: [address] Reading Room Procedure Note Interface, External Ris In - 12/06/2018 4:03 PM KNOCKOUT MAN FINAL REPORT PROCEDURE: Rest/Stress MYOCARDIAL PERFUSION SPECT with regadenoson\\XA9\\ CPT CODE: 81752 INDICATION: New onset heart failure, intermediate risk [...] tracer distribution is normal. 6. No previous [facility] study for comparison. Signed: Dariana Jones MD Report Verified Date/Time: 12/06/2018 16:00:51 Reading Location: [address] P327B [facility] Reading Room Performing Organization Address City/State/Zipcode Phone Number [facility] Treadmill tolerance(Non-Nuclear Treadmill) (12/06/2018 9:38 AM KNOCKOUT MAN) Specimen Narrative Performed At Protocol Name [employer] Time In Exercise Phase 00:01:00 Max. Systolic [...] External Ris In - 12/20/2018 12:26 PM KNOCKOUT MAN Protocol Name Lexiscan Time In Exercise Phase [...] MUSE ECG 12 lead (12/06/2018 9:03 AM KNOCKOUT MAN)Only the most recent of3 resultswithin the time period is included. Specimen Narrative Performed At Ventricular Rate 91 BPM GE MUSE Atrial Rate 91 BPM P-R Interval 172 ms QRS Duration 152 ms Q-T Interval 422 ms QTC Calculation(Bazett) 519 ms P [place] 68 degrees R [place] 67 degrees T [place] 79 degrees Normal sinus rhythm Left bundle branch block Abnormal ECG Confirmed by MD Denny Roberto ([id number]) on 12/06/2018 2:16:39 PM Procedure Note Interface, External Ris In - 12/06/2018 2:16 PM KNOCKOUT MAN Ventricular Rate 91 BPM Atrial Rate 91 BPM P-R Interval 172 ms QRS Duration 152 ms Q-T Interval 422 ms QTC Calculation(Bazett) 519 ms P [place] 68 degrees R [place] 67 degrees T [place] 79 degrees Normal sinus rhythm Left bundle branch block Abnormal ECG Confirmed by MD Denny Roberto ([id number]) on 12/06/2018 2:16:39 PM Performing Organization Address City/State/Zipcode Phone Number GE MUSE aPTT (12/06/2018 1:11 AM KNOCKOUT MAN)Only the most recent of20 resultswithin the time period is included. PTT 85.3 (H) 22.5 - 36.0 seconds [facility] Specimen Blood Performing Organization Address [facility] Phone Number [address] [address] [phone] CENTER Vancomycin level, random (12/06/2018 1:11 AM KNOCKOUT MAN)Only the most recent of10 resultswithin the time period is included. Vancomycin Rm 18.7 ug/mL [facility] Specimen Blood Narrative Performed At Reference Range: No Normals [facility] Performing Organization Address [facility] Phone Number [address] [address] CENTER TRANSFUSION SERVICE REPORT - SCAN (12/05/2018 5:50 PM KNOCKOUT MAN)Only the most recent of4 resultswithin the time period is included. Narrative Performed At Prepare Leuko-Red RBC (12/04/2018 11:54 PM KNOCKOUT MAN)Only the most recent of2 resultswithin the time period is included. CROSSMATCH COMPATIBLE SAFETRACE TX Unit ABO A Neg SAFETRACE TX UNIT NUMBER [id number] [facility]AFET[facility]ACE TX Status TRANSFUSED SAFETRACE TX Blood Bank Product RED BLOOD CELLS SAFETRACE TX PRODUCT CODE [id number] [facility]AF[facility] TX Specimen Other Performing Organization Address City[facility] Phone Number SAFETRACE TX Transfuse Leuko-Red RBC (12/03/2018 3:10 PM KNOCKOUT MAN)Only the most recent of4 resultswithin the time period is included.Type and screen, automated (2018 8:46 AM KNOCKOUT MAN)Only the most recent of2 resultswithin the time period is included. ABO/RH AUTOMATED (BEAKER) A NEGATIVE [facility] Ab Scrn NEGATIVE [facility] Specimen Blood Performing Organization Address City/State/Zipcode Phone Number [facility] [address] [place] [address] HEMODIALYSIS INPATIENT (12/02/2018 9:15 PM KNOCKOUT MAN) Narrative Performed At Meenakshi No RN 12/02/20189:20 PM Hd completed for 4 hours with UF-2L. Pt's bp dropped at the end of HD. Pt given Ns 500 ml bolus. Pt responded to the bolus and blood pressure stabilize. Pt alert , awake. No distress. [facility]. BP 127/61 (BP Location: Right arm, [...] IR Tunneled Catheter Insertion (12/02/2018 1:10 PM KNOCKOUT MAN) Specimen Narrative Performed At FINAL REPORT [facility] History: Need for long-term hemodialysis [...] MD Report Verified Date/Time:12/06/2018 14:29:30 Reading Location: [place] [address] Angio Body Reading Room Procedure Note Interface, External Ris In - 12/06/2018 2:31 PM KNOCKOUT MAN FINAL REPORT History: Need for long-term hemodialysis [...] Report Verified Date/Time: 12/06/2018 14:29:30 Reading Location: [place] [address] Angio Body Reading Room Performing Organization Address City/[facility] Phone Number GE RIS Hemoglobin and hematocrit (12/02/2018 8:24 AM KNOCKOUT MAN)Only the most recent of3 resultswithin the time period is included. Hemoglobin 7.2 (L) 11.2 - 15.7 GM/DL [facility] Hematocrit 24.1 (L) 34.1 - 44.9 % [facility] Specimen Blood Performing Organization Address City/[facility]/Zipcode Phone Number [place] [phone] [place] [address] CENTER PT/aPTT (12/02/2018 5:42 AM KNOCKOUT MAN)Only the most recent of2 resultswithin the time period is included. Protime 14.1 11.7 - 14.7 seconds [facility] INR 1.1 <=5.9 [facility] PTT 39.6 (H) 22.5 - 36.0 seconds [facility] Specimen Blood Narrative Performed At RECOMMENDED COUMADIN/WARFARIN INR THERAPY [facility] RANGES STANDARD DOSE: 2.0 - 3.0 Includes: PROPHYLAXIS for venous thrombosis, systemic embolization; TREATMENT for venous thrombosis and/or pulmonary embolus. HIGH RISK: Target INR is 2.5-3.5 for patients with mechanical heart valves. Performing Organization Address City/State/Zipcode Phone Number [facility] [address] [place] [address] CENTER MR lower extremity joint only without IV contrast right side (12/01/2018 7:00 PM KNOCKOUT MAN) Specimen Narrative Performed At FINAL REPORT [facility] Indication: Right hip pain TECHNIQUE: Multiplanar multisequence [...] MD Report Verified Date/Time:12/02/2018 09:05:25 Reading Location: [facility] B1 C013X Ortho Consult Reading Room Procedure Note Interface, External Ris In - 12/02/2018 9:07 AM KNOCKOUT MAN FINAL REPORT Indication: Right hip pain TECHNIQUE: [...] Report Verified Date/Time: 12/02/2018 09:05:25 Reading Location: [facility] B1 C013X Ortho Consult Reading Room Performing Organization Address City/State/Zipcode Phone Number GE [employer] XR hip 1 view right (12/01/2018 11:16 AM KNOCKOUT MAN) Specimen Narrative Performed At FINAL REPORT [facility] RAD, HIP, 1 VIEW, RIGHT CLINICAL INDICATION: [...] MD Report Verified Date/Time:12/01/2018 11:34:51 Reading Location: [facility] Radiology Reading Room Procedure Note Interface, External Ris In - 12/01/2018 12:16 PM KNOCKOUT MAN FINAL REPORT RAD, HIP, 1 VIEW, RIGHT [...] Report Verified Date/Time: 12/01/2018 11:34:51 Reading Location: [facility] Radiology Reading Room Performing Organization Address [facility] Phone Number [facility] Gentamicin level, trough (11/30/2018 8:57 PM KNOCKOUT MAN) Gentamicin Trough 1.5 (H) 0.5 - 1.0 ug/mL [facility] Specimen Blood Narrative Performed At Dosing [facility] Target Level (mcg/mL) 1-1.5 mg/kg q 8-12 HR 0.5-1.0 3-7 mg/kg q 24 HR<0.5 Before gent dose Performing Organization Address [facility]/Zipcode Phone Number [facility] MEDICAL [address] [place] [address] CENTER HEMODIALYSIS INPATIENT (11/30/2018 4:43 PM KNOCKOUT MAN) Narrative Performed At Khadijah Leavitt RN 11/30/20187:59 [...] pull original 2.5L. Medicated for pain with [place] X 1 with moderate effect.Patient stated that pain has returned and wants another [place]- not yet due. Pre-meal dinnertime blood glucose not covered as patient did not want to eat dinner yet.Dinner tray sent back to 21T with patient per patient request.Khadijah Leavitt RN Phosphorus (11/29/2018 5:59 AM KNOCKOUT MAN)Only the most recent of6 resultswithin the time period is included. Phosphorus 4.1 2.3 - 4.7 mg/dL [facility] Specimen Blood Performing Organization Address City/State/Zipcode Phone Number [facility] [address] [place] [address] CENTER HEMODIALYSIS INPATIENT (11/28/2018 11:37 PM KNOCKOUT MAN) Narrative Performed At Yevgeniy Laws RN 11/28/2018 [...] ECHOCARDIOGRAM REPORT - SCAN (11/28/2018 1:20 PM KNOCKOUT MAN) Narrative Performed At CT abdomen/pelvis without iv contrast (11/28/2018 9:19 AM KNOCKOUT MAN) Specimen Narrative Performed At FINAL REPORT [facility] ABDOMINAL AND PELVIS CT DATED 11/28/2018 CLINICAL [...] MD Report Verified Date/Time:11/28/2018 09:28:06 Reading Location: [facility] C013Y CT Body Reading Room Procedure Note Interface, External Ris In - 11/28/2018 9:30 AM KNOCKOUT MAN FINAL REPORT ABDOMINAL AND PELVIS CT DATED [...] Report Verified Date/Time: 11/28/2018 09:28:06 Reading Location: [facility] B1 C013Y CT Body Reading Room Performing Organization Address City/State/Zipcode Phone Number RIS Prothrombin time/INR (11/28/2018 9:01 AM KNOCKOUT MAN)Only the most recent of2 resultswithin the time period is included. Protime 14.5 11.7 - 14.7 seconds [facility] INR 1.1 <=5.9 [facility] Specimen Blood Narrative Performed At RECOMMENDED COUMADIN/WARFARIN INR THERAPY [facility] CENTER RANGES STANDARD DOSE: 2.0 - 3.0 Includes: PROPHYLAXIS for venous thrombosis, systemic embolization; TREATMENT for venous thrombosis and/or pulmonary embolus. HIGH RISK: Target INR is 2.5-3.5 for patients with mechanical heart valves. Performing Organization Address City/State/Zipcode Phone Number [facility] [address] [place] [address] CENTER Transesophageal echo (11/28/2018 8:58 AM KNOCKOUT MAN) Ejection Fraction [facility] ECHO [facility] MKCK[facility]ON CPA Specimen Narrative Performed At Transesophageal Echocardiography Report (JOSE) [facility] Demographics Patient Name ALYSA FLORIAN Date of Study 11/28/2018 [id number] GenderFemale Visit Number [id number] Ricardo [id number] Room Number 2131 Number Date of Birth1955Referring Physician Mamadou Arreola Age63 year(s)[employer] 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 TV structure is normal. Chml-cv-dvqofibg tricuspid regurgitation. Estimated peak systolic PA pressure [...] Doppler. Tricuspid TV structure is normal. Valve Ppsd-ju-rsugyyzx tricuspid regurgitation. 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 TV structure is normal. Rzjd-jp-zupgyjnw tricuspid regurgitation. Estimated peak systolic PA pressure [...] Doppler. Tricuspid TV structure is normal. Valve Yayb-st-ohqsrgak tricuspid regurgitation. Estimated peak systolic PA pressure [...] TR Gradient: 57.33 mmHg Performing Organization Address City/[facility]/Zipcode Phone Number [facility] ECHO [facility] CPACS Hepatitis B surface antigen (11/25/2018 3:08 PM KNOCKOUT MAN) hepatitis B Surface Ag Nonreactive Nonreactive [facility] Specimen Blood Performing Organization Address City/[facility]/Zipcode Phone Number [address] [address] [phone] CENTER Troponin I (11/24/2018 4:03 AM KNOCKOUT MAN)Only the most recent of4 resultswithin the time period is included. Troponin I 0.31 (HH) 0.00 - 0.03 ng/mL [facility] Specimen Blood Narrative Performed At Troponin I (TnI) levels must be interpreted [facility] in the context of the [...] disease, and persistent tachyarrhythmia. Performing Organization Address City/[facility]/Zipcode Phone Number [address] [address] DANIA Lactic acid, venous, whole blood Daily (11/24/2018 4:03 AM KNOCKOUT MAN)Only the most recent of5 resultswithin the time period is included. Lactate, Venous 0.8 0.5 - 2.2 mmol/L [facility] Specimen Blood Performing Organization Address [facility] Phone Number [address] [address] [phone] DANIA B-type Natriuretic Factor (BNP) (11/24/2018 4:03 AM KNOCKOUT MAN)Only the most recent of2 resultswithin the time period is included. BNP 190 (H) 0 - 100 pg/mL [facility] Specimen Blood Performing Organization Address [facility] Phone Number [address] [address] DANIA Catheter Tip Culture (11/23/2018 12:54 PM KNOCKOUT MAN) Result No growth [facility] Specimen Other Performing Organization Address [facility] Phone Number [address] [address] [phone] DANIA IR central venous catheter placement (jugular or femoral) (11/23/2018 12:38 PM KNOCKOUT MAN) Specimen Narrative Performed At FINAL REPORT [facility] Temporary DialysisCatheter Placement (non tunneled, [...] MD Report Verified Date/Time:11/23/2018 16:53:15 Reading Location: [facility] P048 Angio Body Reading Room Procedure Note Interface, External Ris In - 11/23/2018 4:55 PM KNOCKOUT MAN FINAL REPORT Temporary Dialysis Catheter Placement (non [...] Report Verified Date/Time: 11/23/2018 16:53:15 Reading Location: [place] [address] Angio Body Reading Room Performing Organization Address City/State/Zipcode Phone Number [facility] ECHOCARDIOGRAM REPORT - SCAN (11/23/2018 9:00 AM KNOCKOUT MAN) Narrative Performed At Calcium, Ionized (11/23/2018 7:27 AM KNOCKOUT MAN)Only the most recent of2 resultswithin the time period is included. Calcium, Ion 1.13 1.12 - 1.27 mmol/L [facility] pH, Blood 7.36 [facility] Specimen Blood Performing Organization Address City/State/Zipcode Phone Number [facility] [address] [place] [address] [phone] DANIA Lipase (11/23/2018 7:00 AM KNOCKOUT MAN) Lipase 12 8 - 78 U/L [facility] Specimen Blood Performing Organization Address City/State/Zipcode Phone Number [facility] [address] [place] [address] DANIA Comprehensive metabolic panel (11/23/2018 7:00 AM KNOCKOUT MAN) Protein, Total 6.0 6.0 - 8.3 gm/dL [facility] Albumin 3.0 (L) 3.5 - 5.0 g/dL [facility] Alkaline Phosphatase 248 (H) 40 - 150 U/L [facility] Total Bilirubin 0.8 0.2 - 1.2 mg/dL [facility] Sodium 137 136 - 145 meq/L [facility] Potassium 3.6 3.5 - 5.1 meq/L [facility] Chloride 101 98 - 107 meq/L [facility] CO2 28 22 - 29 meq/L [facility] BUN 26 (H) 7 - 21 mg/dL [facility] Creatinine 4.09 (H) 0.57 - 1.25 mg/dL [facility] Glucose 201 (H) 70 - 105 mg/dL [facility] Calcium 9.3 8.4 - 10.2 mg/dL [facility] AST 39 (H) 5 - 34 U/L [facility] ALT 18 6 - 55 U/L [facility] EGFR 13Comment: ESTIMATED GFR mL/min/1.73 sq m [facility] IS NOT ACCURATE [facility] CREATININE CLEARANCE IN PREDICTING GLOMERULAR FILTRATION RATE. ESTIMATED GFR IS NOT APPLICABLE FOR DIALYSIS PATIENTS. Specimen Blood Performing Organization Address City/State/Zipcode Phone Number [facility] [address] [place] [address] CENTER US abdomen complete (11/22/2018 6:56 PM KNOCKOUT MAN) Specimen Narrative Performed At FINAL REPORT [facility] INDICATION: Septic Shock, ESRD, Dysuria, Abdominal Pain [...] MD Report Verified Date/Time:11/22/2018 20:30:54 Reading Location: [address] Neuro Reading Room Procedure Note Interface, External Ris In - 11/22/2018 8:33 PM KNOCKOUT MAN FINAL REPORT INDICATION: Septic Shock, ESRD, Dysuria, [...] Report Verified Date/Time: 11/22/2018 20:30:54 Reading Location: [address] Neuro Reading Room Performing Organization Address City/State/Zipcode Phone Number [facility] XR chest 1 view portable / bedside (11/22/2018 4:48 PM KNOCKOUT MAN) Specimen Narrative Performed At FINAL REPORT [facility] EXAMINATION: AP PORTABLE CHEST RADIOGRAPH CLINICAL INDICATION: [...] MD Report Verified Date/Time:11/22/2018 17:04:54 Reading Location: [address] Reading Room Procedure Note Interface, External Ris In - 11/22/2018 5:07 PM KNOCKOUT MAN FINAL REPORT EXAMINATION: AP PORTABLE CHEST RADIOGRAPH [...] Report Verified Date/Time: 11/22/2018 17:04:54 Reading Location: [address] Reading Room Performing Organization Address City/State/Zipcode Phone Number [facility] Blood gas, arterial (11/22/2018 4:25 PM KNOCKOUT MAN) pH, Arterial 7.37 7.35 - 7.45 [facility] pCO2, Arterial 42 35 - 45 mmHg [facility] pO2, Arterial 123 (H) 80 - 90 mmHg [facility] O2 Sat, Arterial 98.3 (H) 96.0 - 97.0 % [facility] HCO3, Arterial 24 21 - 29 mmol/L [facility] Base Excess, Arterial -1.7 -2.0 - 3.0 mmol/L [facility] Patient Temperature 37.0 C [facility] FIO2 28.0 % [facility] Specimen Blood, Arterial Performing Organization Address City/State/Zipcode Phone Number [facility] [address] [place] [address] [place] Blood Culture Panel(BioFire) (11/22/2018 4:19 PM KNOCKOUT MAN) LISTERIA MONOCYTOGENES Not detected Not detected [facility] STAPHYLOCOCCUS Detected (A) Not detected [facility] STAPHYLOCOCCUS AUREUS Detected (A) Not detected [facility] Comment: [facility] First line therapy: Vancomycin CENTER ID consultation strongly encouraged. Staphylococcus aureus DETECTED MecA DETECTED Reference Range: Not Detected Streptococcus Not detected Not detected [facility] STREPTOCOCCUS AGALACTIAE Not detected Not detected [facility] (GROUP B) [facility] STREPTOCOCCUS PNEUMONIAE Not detected Not detected [facility] Streptococcus pyogenes (Group Not detected Not detected [facility] A) [facility] ACINETOBACTER BAUMANNII Not detected Not detected [facility] HAEMOPHILUS INFLUENZAE Not detected Not detected [facility] NEISSERIA MENINGITIDIS Not detected Not detected [facility] ENTEROBACTERIACEAE Not detected Not detected [facility] ENTEROBACTER CLOACOE COMPLEX Not detected Not detected [facility] KLEBSIELLA OXYTOCA Not detected Not detected [facility] KLEBSIELLA PNEUMONIAE Not detected Not detected [facility] PROTEUS Not detected Not detected [facility] SERRATIA MARCESCENS Not detected Not detected [facility] SHRUTHI ALBICANS Not detected Not detected [facility] SHRUTHI GLABRATA Not detected Not detected [facility] SHRUTHI KRUSEI Not detected Not detected [facility] SHRUTHI PARAPSILOSIS Not detected Not detected [facility] SHRUTHI TROPICALIS Not detected Not detected [facility] ESCHERICHIA COLI Not detected Not detected [facility] METHICILLIN-RESISTANCE GENE Detected (A) Not detected [facility] VANCOMYCIN-RESISTANCE GENE Not detected [facility] CARBAPENEM-RESISTANCE GENE Not detected [facility] ENTEROCOCCUS Not detected Not detected [facility] PSEUDOMONAS AERUGINOSA Not detected Not detected [facility] Specimen Blood Narrative Performed At Other bacteria and resistance markers not [facility] targeted by this PCR panel cannot be excluded; therefore clinical correlation and follow up of serology, culture results, and other molecular studies is required. The results are not intended to be used as the sole means for clinical diagnosis or patient management decisions. This sample was tested at the [facility] Molecular Diagnostics Laboratory using the QlikaArray Blood Culture ID Panel. It is FDA cleared and has been verified and approved by the [facility] Molecular Diagnostics Laboratory for clinical use. This laboratory is CLIA-certified and [employer] ([employer])-accredited to perform high complexity testing. Performing Organization Address City/[facility] Phone Number [facility] [address] [place] [address] CENTER Procalcitonin (11/22/2018 4:19 PM KNOCKOUT MAN) Procalcitonin >200.00 (HH) <0.05 ng/mL [facility] Specimen Blood Narrative Performed At SEPSIS RISK (ng/mL) [facility] Low:0.05-0.50 Intermediate: 0.51-2.00 High: >=2.01 Performing Organization Address [facility]/Zipcode Phone Number [facility] [address] [place] [address] CENTER Manual Differential (11/22/2018 4:19 PM KNOCKOUT MAN) % Neutros 85 % [facility] % Lymphs 5 % [facility] % Monos 4 % [facility] % Bands 6 0 - 10 % [facility] # Neutros 22.87 (H) 1.56 - 6.13 K/ul [facility] # Lymphs 1.35 1.18 - 3.74 K/ul [facility] # Monos 1.08 (H) 0.24 - 0.36 K/uL [facility] # Bands 1.61 (H) 0.00 - 0.80 K/uL [facility] Total Counted 100 [facility] WBC Morphology Normal [facility] Platelet Morphology Normal [facility] Polychromasia 3+ many [facility] Anisocytosis 1+ few [facility] Microcytes 1+ few [facility] Poikilocytes 2+ moderate [facility] Tear Drop Cells 1+ few [facility] Arnold Cells 1+ few [facility] Artifact Present [facility] Helmet Cells 1+ few [facility] Platelet Conc Adequate [facility] Specimen Blood Narrative Performed At Received comment: [facility] User comments: Slide comments: Performing Organization Address City/[facility]/Zipcode Phone Number [facility] [address] [place] [address] CENTER TSH/Free T4 If Indicated (11/22/2018 4:19 PM KNOCKOUT MAN) TSH 2.43 0.35 - 4.94 uIU/mL [facility] Specimen Blood Performing Organization Address [facility]/Zipcode Phone Number [address] [address] [place] Oxygen saturation, measured (11/22/2018 4:19 PM KNOCKOUT MAN) O2 Saturation (Measured) 62.7 % [facility] Specimen Blood Narrative Performed At If patient has internal jugular ( IJ) or [facility] subclavian central line or PICC line. Draw from distal port. Label as central venous oxygen. Performing Organization Address [facility] Phone Number [address] [address] [phone] [place] Hepatic function panel (11/22/2018 4:19 PM KNOCKOUT MAN) Protein, Total 6.9 6.0 - 8.3 gm/dL [facility] Albumin 3.5 3.5 - 5.0 g/dL [facility] Total Bilirubin 0.9 0.2 - 1.2 mg/dL [facility] Bilirubin, Direct 0.6 (H) 0.1 - 0.5 mg/dL [facility] Alkaline Phosphatase 245 (H) 40 - 150 U/L [facility] AST 51 (H) 5 - 34 U/L [facility] ALT 18 6 - 55 U/L [facility] Specimen Blood Performing Organization Address City/State/Zipcode Phone Number [address] [address] [place] 2D Echo W/Doppler(CW/PW/Color) (11/22/2018 3:51 PM KNOCKOUT MAN) Ejection Fraction [facility] Specimen Narrative Performed At Transthoracic Echocardiography Report (TTE) [facility] Demographics Patient Name ALYSA FLORIAN Date of Study 11/22/2018 [id number] GenderFemale Visit Number [id number] Ricardo [id number] Room Number [id number] Number Date of Birth1955Referring Physician Age63 year(s)[employer] Supervisor Josué Mayes InterpretingRose Kothari Physician Fellow Racquel [...] hypokinesis. Estimated LVEF by qualitative assessment is mxtomthxn-yu-comptigo reduced (30%) . 2. LV filling pressures [...] timated LVEF by qualitative assessment is mo jzocfxt-od-lkugfugw reduced (30%) . Left AtriumLA size is [...] External Ris In - 11/23/2018 8:09 AM KNOCKOUT MAN Transthoracic Echocardiography Report (TTE) Demographics Patient Name ALYSA FLORIAN Date of Study 11/22/2018 Gender Female Visit Number [id number] Race Black Room Number [id number] Number Date of 1955 Referring Physician Age 63 year(s) [employer] Supervisor Josué Mayes Interpreting Mari Kothari, Physician Fellow [...] hypokinesis. Estimated LVEF by qualitative assessment is prdmwinsm-xo-ffwhpefw reduced (30%) . 2. LV filling pressures [...] hypokinesis. Estimated LVEF by qualitative assessment is bcyzpqwai-ub-jfzrazgk reduced (30%) . Left Atrium LA size [...] Number [facility] CPACS after 08/07/2018 Insurance Payer Benefit Plan / Group Subscriber ID Type Phone Address [place] xxxxxxxxx Advance Directives For more information, please contact:[place] [address] [address] [facility] [place] [phone] Code Status Date Activated Date Inactivated Comments Full Code 11/22/2018 3:25 PM This code status was determined by: Patient
--- OUTSIDE RECORDS SUMMARY | 2019-08-08 20:07 | XMS REPORT ---
:1955 [facility] Address [address] [place] [address] Care Team Providers Name Role Phone ARELY [...] Value Reference Range Comments CULTURE (BEAKER) (test qogi=4614) No growth in 5 days POCT-GLUCOSE [id number] 09:17:00 Test Item Value Reference Range Comments POC-GLUCOSE METER (BEAKER) 110 mg/dL 70-[address] [facility] [address] [facility] (test grdh=3876) [facility] [address] CBC W/PLT COUNT & AUTO [id number] 07:05:00 Test Item Value Reference Range Comments WHITE BLOOD CELL COUNT (BEAKER) (test ptoa=122) 8.2 K/ L 3.5-10.5 RED BLOOD CELL COUNT (BEAKER) (test xqcw=561) 2.79 M/ L 3.93-5.22 HEMOGLOBIN (BEAKER) (test zzlj=979) 7.8 GM/DL 11.2-15.7 HEMATOCRIT (BEAKER) (test czye=341) 26.4 % 34.1-44.9 MEAN CORPUSCULAR VOLUME (BEAKER) (test pisy=623) 94.6 fL 79.4-94.8 MEAN CORPUSCULAR HEMOGLOBIN (BEAKER) (test 28.0 pg 25.6-32.2 vtfh=964) MEAN CORPUSCULAR HEMOGLOBIN CONC (BEAKER) (test 29.5 GM/DL 32.2-35.5 iqhi=081) RED CELL DISTRIBUTION WIDTH (BEAKER) (test 14.5 % 11.7-14.4 ctco=216) PLATELET COUNT (BEAKER) (test atzc=372) 299 K/CU MM 150-450 MEAN PLATELET VOLUME (BEAKER) (test mrzb=182) 10.0 fL 9.4-12.3 NUCLEATED RED BLOOD CELLS (BEAKER) (test 0 /100 WBC 0-0 niek=975) NEUTROPHILS RELATIVE PERCENT (BEAKER) (test 72 % avoi=661) LYMPHOCYTES RELATIVE PERCENT (BEAKER) (test 11 % veha=866) MONOCYTES RELATIVE PERCENT (BEAKER) (test 10 % mtae=841) EOSINOPHILS RELATIVE PERCENT (BEAKER) (test 5 % tzdp=614) BASOPHILS RELATIVE PERCENT (BEAKER) (test 1 % lujk=147) NEUTROPHILS ABSOLUTE COUNT (BEAKER) (test 5.93 K/ L 1.56-6.13 hpqk=928) LYMPHOCYTES ABSOLUTE COUNT (BEAKER) (test 0.87 K/ L 1.18-3.74 emqq=341) MONOCYTES ABSOLUTE COUNT (BEAKER) (test 0.84 K/ L 0.24-0.36 pfim=058) EOSINOPHILS ABSOLUTE COUNT (BEAKER) (test 0.44 K/ L 0.04-0.36 snae=385) BASOPHILS ABSOLUTE COUNT (BEAKER) (test 0.09 K/ L 0.01-0.08 tsdg=340) IMMATURE GRANULOCYTES-RELATIVE PERCENT (BEAKER) 1 % 0-1 (test lpdr=0908) BASIC METABOLIC [id number] 07:04:00 Test Item Value Reference Range Comments SODIUM (BEAKER) (test 139 meq/L 136-145 mviz=938) POTASSIUM (BEAKER) (test 4.3 meq/L 3.5-5.1 oumj=018) CHLORIDE (BEAKER) (test 104 meq/L 98-107 rewk=656) CO2 (BEAKER) (test 26 meq/L 22-29 stch=122) BLOOD UREA NITROGEN 31 mg/dL 7-21 (BEAKER) (test uwpr=954) CREATININE (BEAKER) (test 5.39 mg/dL 0.57-1.25 frsz=675) GLUCOSE RANDOM (BEAKER) 83 mg/dL 70-105 (test vmji=272) CALCIUM (BEAKER) (test 9.1 mg/dL 8.4-10.2 oqbv=134) EGFR (BEAKER) (test 10 mL/min/1.73 sq m ESTIMATED GFR IS NOT hohw=7716) ACCURATE CREATININE CLEARANCE IN PREDICTING GLOMERULAR FILTRATION RATE. ESTIMATED GFR IS NOT APPLICABLE FOR DIALYSIS PATIENTS. RAD, ABDOMEN/KUB, 1 VIEW [id number] 04:19:00Reason for exam:->abdominal painFINAL REPORT EXAMINATION: SUPINE [...] Verified Date/ Time: 12/08/2018 04:19:23 Reading Location: [address] Reading Room POCT-GLUCOSE [id number] 21:25:00 Test Item Value Reference Range Comments POC-GLUCOSE METER (BEAKER) 193 mg/dL 70-110 TESTED AT [address] (test xtpg=9375) [facility] [address] POCT-GLUCOSE [id number] 17:52:00 Test Item Value Reference Range Comments POC-GLUCOSE METER (BEAKER) 152 mg/dL 70-110 TESTED AT [address] (test wnme=0659) [facility] [address] POCT-GLUCOSE [id number] 14:15:00 Test Item Value Reference Range Comments POC-GLUCOSE METER (BEAKER) 284 mg/dL 70-110 TESTED AT [address] (test ukhw=2252) [facility] [address] POCT-GLUCOSE [id number] 08:09:00 Test Item Value Reference Range Comments POC-GLUCOSE METER (BEAKER) 185 mg/dL 70-110 TESTED AT [address] (test aknv=2884) [facility] [address] BASIC METABOLIC [id number] 06:30:00 Test Item Value Reference Range Comments SODIUM (BEAKER) (test 137 meq/L 136-145 urjt=102) POTASSIUM (BEAKER) (test 4.2 meq/L 3.5-5.1 ddsn=767) CHLORIDE (BEAKER) (test 98 meq/L 98-107 nqdp=465) CO2 (BEAKER) (test 28 meq/L 22-29 oymw=907) BLOOD UREA NITROGEN 46 mg/dL 7-21 (BEAKER) (test vfhx=604) CREATININE (BEAKER) (test 6.96 mg/dL 0.57-1.25 vtfu=515) GLUCOSE RANDOM (BEAKER) 131 mg/dL 70-105 (test sezo=359) CALCIUM (BEAKER) (test 9.1 mg/dL 8.4-10.2 ktod=648) EGFR (BEAKER) (test 7 mL/min/1.73 sq m ESTIMATED GFR IS NOT ngvv=9699) ACCURATE CREATININE CLEARANCE IN PREDICTING GLOMERULAR FILTRATION RATE. ESTIMATED GFR IS NOT APPLICABLE FOR DIALYSIS PATIENTS. [id number] 06:29:00 Test Item Value Reference Range Comments MAGNESIUM (BEAKER) (test obyb=597) 2.2 mg/dL 1.6-2.6 CBC W/PLT COUNT & AUTO [id number] 05:57:00 Test Item Value Reference Range Comments WHITE BLOOD CELL COUNT (BEAKER) (test ppll=510) 11.4 K/ L 3.5-10.5 RED BLOOD CELL COUNT (BEAKER) (test qmhd=845) 2.56 M/ L 3.93-5.22 HEMOGLOBIN (BEAKER) (test ykaq=131) 7.2 GM/DL 11.2-15.7 HEMATOCRIT (BEAKER) (test bmik=536) 23.4 % 34.1-44.9 MEAN CORPUSCULAR VOLUME (BEAKER) (test rxru=870) 91.4 fL 79.4-94.8 MEAN CORPUSCULAR HEMOGLOBIN (BEAKER) (test 28.1 pg 25.6-32.2 hwfa=838) MEAN CORPUSCULAR HEMOGLOBIN CONC (BEAKER) (test 30.8 GM/DL 32.2-35.5 dadn=593) RED CELL DISTRIBUTION WIDTH (BEAKER) (test 14.6 % 11.7-14.4 ppsz=569) PLATELET COUNT (BEAKER) (test ierl=011) 246 K/CU MM 150-450 MEAN PLATELET VOLUME (BEAKER) (test yvxp=038) 9.8 fL 9.4-12.3 NUCLEATED RED BLOOD CELLS (BEAKER) (test 0 /100 WBC 0-0 mokz=061) NEUTROPHILS RELATIVE PERCENT (BEAKER) (test 82 % nkpc=395) LYMPHOCYTES RELATIVE PERCENT (BEAKER) (test 6 % fifx=990) MONOCYTES RELATIVE PERCENT (BEAKER) (test 8 % usbn=741) EOSINOPHILS RELATIVE PERCENT (BEAKER) (test 3 % gqfh=751) BASOPHILS RELATIVE PERCENT (BEAKER) (test 1 % ebnc=937) NEUTROPHILS ABSOLUTE COUNT (BEAKER) (test 9.41 K/ L 1.56-6.13 zuli=241) LYMPHOCYTES ABSOLUTE COUNT (BEAKER) (test 0.70 K/ L 1.18-3.74 poel=468) MONOCYTES ABSOLUTE COUNT (BEAKER) (test 0.89 K/ L 0.24-0.36 zsms=761) EOSINOPHILS ABSOLUTE COUNT (BEAKER) (test 0.31 K/ L 0.04-0.36 pwxm=265) BASOPHILS ABSOLUTE COUNT (BEAKER) (test 0.06 K/ L 0.01-0.08 ipfn=685) IMMATURE GRANULOCYTES-RELATIVE PERCENT (BEAKER) 1 % 0-1 (test zpju=8964) POCT-GLUCOSE [id number] 21:35:00 Test Item Value Reference Range Comments POC-GLUCOSE METER (BEAKER) 249 mg/dL 70-110 TESTED AT [place] [id number] [facility] (test lgcm=1292) [facility] [address] POCT-GLUCOSE [id number] 17:49:00 Test Item Value Reference Range Comments POC-GLUCOSE METER (BEAKER) 168 mg/dL 70-110 TESTED AT [place] [address] [facility] (test bols=6974) [place] [id number] [facility], MULTI, PHARM, [id number] 16:00:00FINAL REPORT PROCEDURE: Rest/Stress MYOCARDIAL PERFUSION SPECT with regadenoson\\XA9\\ CPT CODE: 47126 INDICATION: New onset heart failure, intermediate risk [...] is normal. 6. No previous [facility] study for comparison. Signed: Dariana Jones MDReport Verified Date/Time: 12/06/2018 16:00:51 Reading Location: [address] [address] Reading Room Electronically signed by: DARIANA JONES MD on 2018 04:00 PMANG, TUNNELED CATHETER [id number] 14:29:00Reason for exam :->Tunneled cath for dialysisFINAL [...] Verified Date/Time: 12/06/2018 14:29:30 Reading Location : [place] [address] Angio Body Reading Room POCT-GLUCOSE [id number] 12:31:00 Test Item Value Reference Range Comments POC-GLUCOSE METER (BEAKER) 187 mg/dL 70-110 TESTED AT [address] (test xkyw=3542) [facility] [address] POCT-GLUCOSE [id number] 11:21:00 Test Item Value Reference Range Comments POC-GLUCOSE METER (BEAKER) 165 mg/dL 70-110 TESTED AT [place] [address] [facility] (test vbai=3985) [facility] [address] POCT-GLUCOSE [id number] 06:17:00 Test Item Value Reference Range Comments POC-GLUCOSE METER (BEAKER) 108 mg/dL 70-110 TESTED AT [address] (test oqlm=3655) [facility] [address] VANCOMYCIN LEVEL, [id number] 02:03:00 Test Item Value Reference Range Comments VANCOMYCIN RANDOM (BEAKER) (test mgnw=680) 18.7 ug/mL Reference Range: No NormalsCBC W/PLT COUNT & AUTO [id number] 01: 48:00 Test Item Value Reference Range Comments WHITE BLOOD CELL COUNT (BEAKER) (test sirn=703) 12.1 K/ L 3.5-10.5 RED BLOOD CELL COUNT (BEAKER) (test xrpg=238) 2.76 M/ L 3.93-5.22 HEMOGLOBIN (BEAKER) (test apac=462) 7.7 GM/DL 11.2-15.7 HEMATOCRIT (BEAKER) (test pdsr=320) 25.1 % 34.1-44.9 MEAN CORPUSCULAR VOLUME (BEAKER) (test dufq=319) 90.9 fL 79.4-94.8 MEAN CORPUSCULAR HEMOGLOBIN (BEAKER) (test 27.9 pg 25.6-32.2 xgmr=205) MEAN CORPUSCULAR HEMOGLOBIN CONC (BEAKER) (test 30.7 GM/DL 32.2-35.5 lpzm=623) RED CELL DISTRIBUTION WIDTH (BEAKER) (test 14.6 % 11.7-14.4 mjhf=242) PLATELET COUNT (BEAKER) (test pmvf=276) 231 K/CU MM 150-450 MEAN PLATELET VOLUME (BEAKER) (test pacs=980) 10.0 fL 9.4-12.3 NUCLEATED RED BLOOD CELLS (BEAKER) (test 0 /100 WBC 0-0 rlxu=278) NEUTROPHILS RELATIVE PERCENT (BEAKER) (test 84 % pxhm=533) LYMPHOCYTES RELATIVE PERCENT (BEAKER) (test 7 % zqnw=766) MONOCYTES RELATIVE PERCENT (BEAKER) (test 6 % lniw=863) EOSINOPHILS RELATIVE PERCENT (BEAKER) (test 2 % jlhg=179) BASOPHILS RELATIVE PERCENT (BEAKER) (test 1 % upph=536) NEUTROPHILS ABSOLUTE COUNT (BEAKER) (test 10.17 K/ L 1.56-6.13 rcoe=232) LYMPHOCYTES ABSOLUTE COUNT (BEAKER) (test 0.79 K/ L 1.18-3.74 fxyg=501) MONOCYTES ABSOLUTE COUNT (BEAKER) (test 0.73 K/ L 0.24-0.36 vkmg=532) EOSINOPHILS ABSOLUTE COUNT (BEAKER) (test 0.24 K/ L 0.04-0.36 zlhm=544) BASOPHILS ABSOLUTE COUNT (BEAKER) (test 0.08 K/ L 0.01-0.08 plsg=566) IMMATURE GRANULOCYTES-RELATIVE PERCENT (BEAKER) 0 % 0-1 (test mnzc=7969) BASIC METABOLIC [id number] 01:43:00 Test Item Value Reference Range Comments SODIUM (BEAKER) (test 136 meq/L 136-145 yzxu=054) POTASSIUM (BEAKER) (test 4.2 meq/L 3.5-5.1 syit=539) CHLORIDE (BEAKER) (test 99 meq/L 98-107 rflw=885) CO2 (BEAKER) (test 27 meq/L 22-29 xmmd=391) BLOOD UREA NITROGEN 29 mg/dL 7-21 (BEAKER) (test urte=507) CREATININE (BEAKER) (test 5.09 mg/dL 0.57-1.25 vivk=371) GLUCOSE RANDOM (BEAKER) 110 mg/dL 70-105 (test lnch=182) CALCIUM (BEAKER) (test 9.0 mg/dL 8.4-10.2 kqpk=483) EGFR (BEAKER) (test 10 mL/min/1.73 sq m ESTIMATED GFR IS NOT vasz=0301) ACCURATE CREATININE CLEARANCE IN PREDICTING GLOMERULAR FILTRATION RATE. ESTIMATED GFR IS NOT APPLICABLE FOR DIALYSIS PATIENTS. [id number] 01:34:00 Test Item Value Reference Range Comments PARTIAL THROMBOPLASTIN TIME (BEAKER) (test 85.3 seconds 22.5-36.0 tejq=075) POCT-GLUCOSE [id number] 21:26:00 Test Item Value Reference Range Comments POC-GLUCOSE METER (BEAKER) 154 mg/dL 70-[address] [facility] [address] [facility] (test kusf=3790) [facility] [address] POCT-GLUCOSE [id number] 16:29:00 Test Item Value Reference Range Comments POC-GLUCOSE METER (BEAKER) 121 mg/dL 70-110 TESTED AT [address] (test ktgy=9176) [facility] [address] POCT-GLUCOSE [id number] 16:26:00 Test Item Value Reference Range Comments POC-GLUCOSE METER (BEAKER) 119 mg/dL 70-110 TESTED AT [address] (test psam=3900) [facility] [address] [id number] 08:47:00 Test Item Value Reference Range Comments PARTIAL THROMBOPLASTIN TIME (BEAKER) (test 85.2 seconds 22.5-36.0 ttps=888) BASIC METABOLIC [id number] 08:29:00 Test Item Value Reference Range Comments SODIUM (BEAKER) (test 133 meq/L 136-145 jrmz=705) POTASSIUM (BEAKER) (test 4.7 meq/L 3.5-5.1 ogyi=978) CHLORIDE (BEAKER) (test 93 meq/L 98-107 rbpz=758) CO2 (BEAKER) (test 24 meq/L 22-29 adea=932) BLOOD UREA NITROGEN 64 mg/dL 7-21 (BEAKER) (test spkp=131) CREATININE (BEAKER) (test 8.39 mg/dL 0.57-1.25 uvea=998) GLUCOSE RANDOM (BEAKER) 117 mg/dL 70-105 (test tgar=990) CALCIUM (BEAKER) (test 8.7 mg/dL 8.4-10.2 nuxp=613) EGFR (BEAKER) (test 6 mL/min/1.73 sq m ESTIMATED GFR IS NOT ipnd=4382) ACCURATE CREATININE CLEARANCE IN PREDICTING GLOMERULAR FILTRATION RATE. ESTIMATED GFR IS NOT APPLICABLE FOR DIALYSIS PATIENTS. CBC W/PLT COUNT & AUTO [id number] 08:25:00 Test Item Value Reference Range Comments WHITE BLOOD CELL COUNT (BEAKER) (test eppn=314) 15.1 K/ L 3.5-10.5 RED BLOOD CELL COUNT (BEAKER) (test tlyg=910) 2.84 M/ L 3.93-5.22 HEMOGLOBIN (BEAKER) (test ptsl=403) 7.8 GM/DL 11.2-15.7 HEMATOCRIT (BEAKER) (test clpf=360) 25.8 % 34.1-44.9 MEAN CORPUSCULAR VOLUME (BEAKER) (test gipf=831) 90.8 fL 79.4-94.8 MEAN CORPUSCULAR HEMOGLOBIN (BEAKER) (test 27.5 pg 25.6-32.2 znry=969) MEAN CORPUSCULAR HEMOGLOBIN CONC (BEAKER) (test 30.2 GM/DL 32.2-35.5 ylqj=085) RED CELL DISTRIBUTION WIDTH (BEAKER) (test 14.7 % 11.7-14.4 qfjb=788) PLATELET COUNT (BEAKER) (test nubs=241) 258 K/CU MM 150-450 MEAN PLATELET VOLUME (BEAKER) (test tjvk=503) 10.4 fL 9.4-12.3 NUCLEATED RED BLOOD CELLS (BEAKER) (test 0 /100 WBC 0-0 hutu=727) NEUTROPHILS RELATIVE PERCENT (BEAKER) (test 83 % mpsm=326) LYMPHOCYTES RELATIVE PERCENT (BEAKER) (test 8 % eune=619) MONOCYTES RELATIVE PERCENT (BEAKER) (test 6 % bdqt=271) EOSINOPHILS RELATIVE PERCENT (BEAKER) (test 2 % gexz=751) BASOPHILS RELATIVE PERCENT (BEAKER) (test 1 % yhgg=013) NEUTROPHILS ABSOLUTE COUNT (BEAKER) (test 12.58 K/ L 1.56-6.13 ftya=726) LYMPHOCYTES ABSOLUTE COUNT (BEAKER) (test 1.18 K/ L 1.18-3.74 chae=079) MONOCYTES ABSOLUTE COUNT (BEAKER) (test 0.87 K/ L 0.24-0.36 nnbt=603) EOSINOPHILS ABSOLUTE COUNT (BEAKER) (test 0.30 K/ L 0.04-0.36 okgx=651) BASOPHILS ABSOLUTE COUNT (BEAKER) (test 0.08 K/ L 0.01-0.08 vglz=838) IMMATURE GRANULOCYTES-RELATIVE PERCENT (BEAKER) 1 % 0-1 (test atos=5913) [id number] 23:58:00 Test Item Value Reference Range Comments PARTIAL THROMBOPLASTIN TIME (BEAKER) (test 92.6 seconds 22.5-36.0 gurv=448) POCT-GLUCOSE [id number] 20:54:00 Test Item Value Reference Range Comments POC-GLUCOSE METER (BEAKER) 151 mg/dL 70-110 TESTED AT [address] (test zdmr=4676) [facility] [address] POCT-GLUCOSE [id number] 17:04:00 Test Item Value Reference Range Comments POC-GLUCOSE METER (BEAKER) 158 mg/dL 70-110 TESTED AT [address] (test vppm=3770) [facility] [address] [id number] 16:25:00 Test Item Value Reference Range Comments PARTIAL THROMBOPLASTIN TIME (BEAKER) (test 75.9 seconds 22.5-36.0 wbap=805) POCT-GLUCOSE [id number] 12:34:00 Test Item Value Reference Range Comments POC-GLUCOSE METER (BEAKER) 183 mg/dL 70-110 TESTED AT [address] (test vcli=3666) [facility] [address] POCT-GLUCOSE [id number] 12:00:00 Test Item Value Reference Range Comments POC-GLUCOSE METER (BEAKER) 175 mg/dL 70-110 TESTED AT [address] (test tzhi=6294) [facility] [address] [id number] 10:17:00 Test Item Value Reference Range Comments PARTIAL THROMBOPLASTIN TIME (BEAKER) (test 32.1 seconds 22.5-36.0 vaub=198) Prior to initiating heparinBASIC METABOLIC [id number] 08:20:00 Test Item Value Reference Range Comments SODIUM (BEAKER) (test 134 meq/L 136-145 uinm=044) POTASSIUM (BEAKER) (test 4.3 meq/L 3.5-5.1 dxxg=334) CHLORIDE (BEAKER) (test 98 meq/L 98-107 icmm=971) CO2 (BEAKER) (test 26 meq/L 22-29 nylj=792) BLOOD UREA NITROGEN 48 mg/dL 7-21 (BEAKER) (test ktcb=531) CREATININE (BEAKER) (test 6.48 mg/dL 0.57-1.25 saxz=119) GLUCOSE RANDOM (BEAKER) 124 mg/dL 70-105 (test ehcn=671) CALCIUM (BEAKER) (test 9.2 mg/dL 8.4-10.2 viez=294) EGFR (BEAKER) (test 8 mL/min/1.73 sq m ESTIMATED GFR IS NOT ekhu=4290) ACCURATE CREATININE CLEARANCE IN PREDICTING GLOMERULAR FILTRATION RATE. ESTIMATED GFR IS NOT APPLICABLE FOR DIALYSIS PATIENTS. VANCOMYCIN LEVEL, [id number] 08:06:00 Test Item Value Reference Range Comments VANCOMYCIN RANDOM (BEAKER) (test vfbn=970) 28.6 ug/mL Reference Range: No NormalsCBC W/PLT COUNT & AUTO [id number] 07: 14:00 Test Item Value Reference Range Comments WHITE BLOOD CELL COUNT (BEAKER) (test chqs=604) 13.3 K/ L 3.5-10.5 RED BLOOD CELL COUNT (BEAKER) (test vqgq=363) 2.89 M/ L 3.93-5.22 HEMOGLOBIN (BEAKER) (test eqzm=510) 7.9 GM/DL 11.2-15.7 HEMATOCRIT (BEAKER) (test jmal=267) 26.4 % 34.1-44.9 MEAN CORPUSCULAR VOLUME (BEAKER) (test rjri=271) 91.3 fL 79.4-94.8 MEAN CORPUSCULAR HEMOGLOBIN (BEAKER) (test 27.3 pg 25.6-32.2 jkrl=985) MEAN CORPUSCULAR HEMOGLOBIN CONC (BEAKER) (test 29.9 GM/DL 32.2-35.5 ktzs=131) RED CELL DISTRIBUTION WIDTH (BEAKER) (test 15.2 % 11.7-14.4 gprv=243) PLATELET COUNT (BEAKER) (test ybqv=540) 242 K/CU MM 150-450 MEAN PLATELET VOLUME (BEAKER) (test eegl=586) 10.2 fL 9.4-12.3 NUCLEATED RED BLOOD CELLS (BEAKER) (test 0 /100 WBC 0-0 gcfb=084) NEUTROPHILS RELATIVE PERCENT (BEAKER) (test 82 % hgnz=050) LYMPHOCYTES RELATIVE PERCENT (BEAKER) (test 8 % fjit=532) MONOCYTES RELATIVE PERCENT (BEAKER) (test 6 % iouq=394) EOSINOPHILS RELATIVE PERCENT (BEAKER) (test 2 % rtbf=195) BASOPHILS RELATIVE PERCENT (BEAKER) (test 1 % wffi=896) NEUTROPHILS ABSOLUTE COUNT (BEAKER) (test 10.92 K/ L 1.56-6.13 zlfw=124) LYMPHOCYTES ABSOLUTE COUNT (BEAKER) (test 1.06 K/ L 1.18-3.74 sfma=993) MONOCYTES ABSOLUTE COUNT (BEAKER) (test 0.84 K/ L 0.24-0.36 cdvz=276) EOSINOPHILS ABSOLUTE COUNT (BEAKER) (test 0.31 K/ L 0.04-0.36 dcmj=383) BASOPHILS ABSOLUTE COUNT (BEAKER) (test 0.08 K/ L 0.01-0.08 hhxi=142) IMMATURE GRANULOCYTES-RELATIVE PERCENT (BEAKER) 1 % 0-1 (test wjpd=7236) POCT-GLUCOSE [id number] 21:22:00 Test Item Value Reference Range Comments POC-GLUCOSE METER (BEAKER) 209 mg/dL 70-110 TESTED AT [address] (test zdcl=5693) [place] [address] POCT-GLUCOSE [id number] 17:40:00 Test Item Value Reference Range Comments POC-GLUCOSE METER (BEAKER) 213 mg/dL 70-110 TESTED AT [address] (test nsnk=0839) [place] [address] POCT-GLUCOSE [id number] 12:28:00 Test Item Value Reference Range Comments POC-GLUCOSE METER (BEAKER) 298 mg/dL 70-110 TESTED AT [address] (test bpmx=6359) [place] [address] BLOOD [id number] 11:01:00 Test Item Value Reference Range Comments CULTURE (BEAKER) (test duuw=0378) No growth in 5 days POCT-GLUCOSE [id number] 08:43:00 Test Item Value Reference Range Comments POC-GLUCOSE METER (BEAKER) 147 mg/dL 70-110 TESTED AT [address] (test zdzm=5383) [place] [address] CBC W/PLT COUNT & AUTO [id number] 07:17:00 Test Item Value Reference Range Comments WHITE BLOOD CELL COUNT (BEAKER) (test vvbe=445) 12.1 K/ L 3.5-10.5 RED BLOOD CELL COUNT (BEAKER) (test mnuu=862) 2.54 M/ L 3.93-5.22 HEMOGLOBIN (BEAKER) (test zvdn=136) 6.9 GM/DL 11.2-15.7 HEMATOCRIT (BEAKER) (test ppil=543) 24.0 % 34.1-44.9 MEAN CORPUSCULAR VOLUME (BEAKER) (test ahit=923) 94.5 fL 79.4-94.8 MEAN CORPUSCULAR HEMOGLOBIN (BEAKER) (test 27.2 pg 25.6-32.2 ffjt=494) MEAN CORPUSCULAR HEMOGLOBIN CONC (BEAKER) (test 28.8 GM/DL 32.2-35.5 htvw=383) RED CELL DISTRIBUTION WIDTH (BEAKER) (test 14.9 % 11.7-14.4 rrsn=887) PLATELET COUNT (BEAKER) (test ncwd=790) 253 K/CU MM 150-450 MEAN PLATELET VOLUME (BEAKER) (test hlqc=181) 10.0 fL 9.4-12.3 NUCLEATED RED BLOOD CELLS (BEAKER) (test 0 /100 WBC 0-0 oymm=540) NEUTROPHILS RELATIVE PERCENT (BEAKER) (test 83 % zdly=867) LYMPHOCYTES RELATIVE PERCENT (BEAKER) (test 7 % tntx=137) MONOCYTES RELATIVE PERCENT (BEAKER) (test 6 % xbcb=283) EOSINOPHILS RELATIVE PERCENT (BEAKER) (test 3 % erjj=247) BASOPHILS RELATIVE PERCENT (BEAKER) (test 1 % uvqz=888) NEUTROPHILS ABSOLUTE COUNT (BEAKER) (test 10.04 K/ L 1.56-6.13 getr=792) LYMPHOCYTES ABSOLUTE COUNT (BEAKER) (test 0.88 K/ L 1.18-3.74 agle=211) MONOCYTES ABSOLUTE COUNT (BEAKER) (test 0.66 K/ L 0.24-0.36 tbuk=222) EOSINOPHILS ABSOLUTE COUNT (BEAKER) (test 0.34 K/ L 0.04-0.36 uklm=805) BASOPHILS ABSOLUTE COUNT (BEAKER) (test 0.09 K/ L 0.01-0.08 qwjy=341) IMMATURE GRANULOCYTES-RELATIVE PERCENT (BEAKER) 1 % 0-1 (test xhoh=2700) BASIC METABOLIC [id number] 07:02:00 Test Item Value Reference Range Comments SODIUM (BEAKER) (test 134 meq/L 136-145 dqib=903) POTASSIUM (BEAKER) (test 4.2 meq/L 3.5-5.1 Specimen slightly pkft=546) hemolyzed CHLORIDE (BEAKER) (test 99 meq/L 98-107 gicb=841) CO2 (BEAKER) (test 25 meq/L 22-29 zgck=021) BLOOD UREA NITROGEN 29 mg/dL 7-21 (BEAKER) (test pzta=914) CREATININE (BEAKER) (test 4.76 mg/dL 0.57-1.25 Specimen slightly gsvx=777) hemolyzed GLUCOSE RANDOM (BEAKER) 116 mg/dL 70-105 (test xynx=889) CALCIUM (BEAKER) (test 8.6 mg/dL 8.4-10.2 bgka=271) EGFR (BEAKER) (test 11 mL/min/1.73 sq m ESTIMATED GFR IS NOT ljwl=8805) ACCURATE CREATININE CLEARANCE IN PREDICTING GLOMERULAR FILTRATION RATE. ESTIMATED GFR IS NOT APPLICABLE FOR DIALYSIS PATIENTS. BLOOD [id number] 11:01:00 Test Item Value Reference Range Comments CULTURE (BEAKER) (test zzwt=6850) No growth in 5 days MR, EXTREMITY, LOWER, JOINT, WITHOUT CONTRAST, [id number] 09:05:00Reason for exam:->For hip painFINAL REPORT Indication: [...] MDReport Verified Date/Time: 12/02/2018 09:05:25 Reading Location: [facility] B1 [id number] Ortho Consult Reading Room Electronically signed by: JAYSON SHORT M.D. on 2018 09:05 AMHEMOGLOBIN AND [id number] 08:39:00 Test Item Value Reference Range Comments HEMOGLOBIN (BEAKER) (test qqog=127) 7.2 GM/DL 11.2-15.7 HEMATOCRIT (BEAKER) (test aqlm=730) 24.1 % 34.1-44.9 POCT-GLUCOSE [id number] 07:54:00 Test Item Value Reference Range Comments POC-GLUCOSE METER (BEAKER) 186 mg/dL 70-[address] [facility] [address] (test lzii=1759) [facility] [address] CBC W/PLT COUNT & AUTO [id number] 07:22:00 Test Item Value Reference Range Comments WHITE BLOOD CELL COUNT (BEAKER) (test dxpi=458) 13.3 K/ L 3.5-10.5 RED BLOOD CELL COUNT (BEAKER) (test ksfo=805) 2.47 M/ L 3.93-5.22 HEMOGLOBIN (BEAKER) (test poxa=185) 6.8 GM/DL 11.2-15.7 HEMATOCRIT (BEAKER) (test vbfs=401) 23.2 % 34.1-44.9 MEAN CORPUSCULAR VOLUME (BEAKER) (test kzmm=468) 93.9 fL 79.4-94.8 MEAN CORPUSCULAR HEMOGLOBIN (BEAKER) (test 27.5 pg 25.6-32.2 ylvm=307) MEAN CORPUSCULAR HEMOGLOBIN CONC (BEAKER) (test 29.3 GM/DL 32.2-35.5 yxel=433) RED CELL DISTRIBUTION WIDTH (BEAKER) (test 15.2 % 11.7-14.4 ljzi=381) PLATELET COUNT (BEAKER) (test bzyj=223) 304 K/CU MM 150-450 MEAN PLATELET VOLUME (BEAKER) (test zrpq=702) 9.9 fL 9.4-12.3 NUCLEATED RED BLOOD CELLS (BEAKER) (test 0 /100 WBC 0-0 hklc=334) NEUTROPHILS RELATIVE PERCENT (BEAKER) (test 84 % frdy=062) LYMPHOCYTES RELATIVE PERCENT (BEAKER) (test 7 % xtbo=351) MONOCYTES RELATIVE PERCENT (BEAKER) (test 5 % mveg=428) EOSINOPHILS RELATIVE PERCENT (BEAKER) (test 3 % ozlp=029) BASOPHILS RELATIVE PERCENT (BEAKER) (test 0 % mdnu=381) NEUTROPHILS ABSOLUTE COUNT (BEAKER) (test 11.17 K/ L 1.56-6.13 hhts=291) LYMPHOCYTES ABSOLUTE COUNT (BEAKER) (test 0.95 K/ L 1.18-3.74 velf=511) MONOCYTES ABSOLUTE COUNT (BEAKER) (test 0.70 K/ L 0.24-0.36 qkyw=331) EOSINOPHILS ABSOLUTE COUNT (BEAKER) (test 0.37 K/ L 0.04-0.36 bjfs=263) BASOPHILS ABSOLUTE COUNT (BEAKER) (test 0.04 K/ L 0.01-0.08 vktb=298) IMMATURE GRANULOCYTES-RELATIVE PERCENT (BEAKER) 1 % 0-1 (test qqxl=0182) POCT-GLUCOSE [id number] 07:10:00 Test Item Value Reference Range Comments POC-GLUCOSE METER (BEAKER) 177 mg/dL 70-[address] [facility] [address] [facility] (test wxvc=4056) [facility] [address] BASIC METABOLIC [id number] 06:52:00 Test Item Value Reference Range Comments SODIUM (BEAKER) (test 137 meq/L 136-145 plve=471) POTASSIUM (BEAKER) (test 4.0 meq/L 3.5-5.1 vozc=909) CHLORIDE (BEAKER) (test 97 meq/L 98-107 yrqi=219) CO2 (BEAKER) (test 30 meq/L 22-29 njlz=836) BLOOD UREA NITROGEN 46 mg/dL 7-21 (BEAKER) (test qciq=814) CREATININE (BEAKER) (test 6.47 mg/dL 0.57-1.25 iaoi=649) GLUCOSE RANDOM (BEAKER) 148 mg/dL 70-105 (test bfyl=602) CALCIUM (BEAKER) (test 9.1 mg/dL 8.4-10.2 lble=709) EGFR (BEAKER) (test 8 mL/min/1.73 sq m ESTIMATED GFR IS NOT ryqx=3202) ACCURATE CREATININE CLEARANCE IN PREDICTING GLOMERULAR FILTRATION RATE. ESTIMATED GFR IS NOT APPLICABLE FOR DIALYSIS PATIENTS. VANCOMYCIN LEVEL, [id number] 06:43:00 Test Item Value Reference Range Comments VANCOMYCIN RANDOM (BEAKER) (test sjaq=097) 19.0 ug/mL Reference Range: No [id number]/[id number] 06:25:00 Test Item Value Reference Range Comments PROTIME (BEAKER) (test fykg=891) 14.1 seconds 11.7-14.7 INR (BEAKER) (test ndld=637) 1.1 <=5.9 PARTIAL THROMBOPLASTIN TIME (BEAKER) (test 39.6 seconds 22.5-36.0 pdjq=166) RECOMMENDED COUMADIN/WARFARIN INR THERAPY RANGESSTANDARD DOSE: 2.0 - 3.0 Includes: PROPHYLAXIS forvenous thrombosis, systemic embolization; TREATMENT for venous thrombosis and/or pulmonary embolus.HIGH RISK: Target INR is 2.5-3.5 for patients with mechanical heart valves.POCT-GLUCOSE [id number] 23:37:00 Test Item Value Reference Range Comments POC-GLUCOSE METER (BEAKER) 258 mg/dL 70-110 TESTED AT [address] (test pflu=9638) [place] [address] POCT-GLUCOSE [id number] 12:31:00 Test Item Value Reference Range Comments POC-GLUCOSE METER (BEAKER) 184 mg/dL 70-110 TESTED AT [address] (test zhmv=7890) [place] [address] BASIC METABOLIC [id number] 12:27:00 Test Item Value Reference Range Comments SODIUM (BEAKER) (test 136 meq/L 136-145 atmz=292) POTASSIUM (BEAKER) (test 4.0 meq/L 3.5-5.1 fcbi=436) CHLORIDE (BEAKER) (test 99 meq/L 98-107 ylsm=550) CO2 (BEAKER) (test 26 meq/L 22-29 aebu=228) BLOOD UREA NITROGEN 29 mg/dL 7-21 (BEAKER) (test ifei=132) CREATININE (BEAKER) (test 4.92 mg/dL 0.57-1.25 ebcx=534) GLUCOSE RANDOM (BEAKER) 129 mg/dL 70-105 (test xlsy=650) CALCIUM (BEAKER) (test 9.0 mg/dL 8.4-10.2 lzdp=799) EGFR (BEAKER) (test 11 mL/min/1.73 sq m ESTIMATED GFR IS NOT jllc=0648) ACCURATE CREATININE CLEARANCE IN PREDICTING GLOMERULAR FILTRATION RATE. ESTIMATED GFR IS NOT APPLICABLE FOR DIALYSIS PATIENTS. CBC W/PLT COUNT & AUTO [id number] 12:20:00 Test Item Value Reference Range Comments WHITE BLOOD CELL COUNT (BEAKER) (test kvls=681) 14.6 K/ L 3.5-10.5 RED BLOOD CELL COUNT (BEAKER) (test vvfd=637) 2.69 M/ L 3.93-5.22 HEMOGLOBIN (BEAKER) (test rzyy=013) 7.4 GM/DL 11.2-15.7 HEMATOCRIT (BEAKER) (test xxjk=001) 25.1 % 34.1-44.9 MEAN CORPUSCULAR VOLUME (BEAKER) (test nnxu=609) 93.3 fL 79.4-94.8 MEAN CORPUSCULAR HEMOGLOBIN (BEAKER) (test 27.5 pg 25.6-32.2 idbl=098) MEAN CORPUSCULAR HEMOGLOBIN CONC (BEAKER) (test 29.5 GM/DL 32.2-35.5 bval=343) RED CELL DISTRIBUTION WIDTH (BEAKER) (test 15.5 % 11.7-14.4 frha=020) PLATELET COUNT (BEAKER) (test ozuf=010) 295 K/CU MM 150-450 MEAN PLATELET VOLUME (BEAKER) (test habl=534) 9.8 fL 9.4-12.3 NUCLEATED RED BLOOD CELLS (BEAKER) (test 0 /100 WBC 0-0 kpqq=155) NEUTROPHILS RELATIVE PERCENT (BEAKER) (test 83 % iuuq=706) LYMPHOCYTES RELATIVE PERCENT (BEAKER) (test 8 % lmou=512) MONOCYTES RELATIVE PERCENT (BEAKER) (test 6 % qoqh=073) EOSINOPHILS RELATIVE PERCENT (BEAKER) (test 2 % vpff=594) BASOPHILS RELATIVE PERCENT (BEAKER) (test 1 % oqox=686) NEUTROPHILS ABSOLUTE COUNT (BEAKER) (test 12.12 K/ L 1.56-6.13 nxdc=251) LYMPHOCYTES ABSOLUTE COUNT (BEAKER) (test 1.19 K/ L 1.18-3.74 ednm=763) MONOCYTES ABSOLUTE COUNT (BEAKER) (test 0.81 K/ L 0.24-0.36 tzkk=621) EOSINOPHILS ABSOLUTE COUNT (BEAKER) (test 0.31 K/ L 0.04-0.36 ptbt=090) BASOPHILS ABSOLUTE COUNT (BEAKER) (test 0.07 K/ L 0.01-0.08 zqhw=496) IMMATURE GRANULOCYTES-RELATIVE PERCENT (BEAKER) 1 % 0-1 (test mrwb=4007) RAD, HIP, 1 VIEW, [id number] 11:34:00Reason for exam:->R hip painShould this be [...] MDReport Verified Date/Time: 2018 11:34:51 Reading Location: [facility] Radiology Reading Room POCT- GLUCOSE [id number] 08:01:00 Test Item Value Reference Range Comments POC-GLUCOSE METER (BERUSSELL) 189 mg/dL 70-[address] [facility] [address] [facility] (test vxrd=5375) [facility] [address] VANCOMYCIN LEVEL, [id number] 06:44:00 Test Item Value Reference Range Comments VANCOMYCIN RANDOM (BEAKER) (test zixk=248) 19.8 ug/mL Reference Range: No NormalsGENTAMICIN LEVEL, [id number] 21:58:00 Test Item Value Reference Range Comments GENTAMICIN TROUGH (BEAKER) (test uaqf=683) 1.5 ug/mL 0.5-1.0 Dosing Target Level (mcg/mL)1-1.5 mg/kg q 8-12 HR 0.5- 1.03-7 mg/kg q 24 HR <0.5Before gent dosePOCT-GLUCOSE [id number] 20:39:00 Test Item Value Reference Range Comments POC-GLUCOSE METER (BEAKER) 229 mg/dL 70-110 TESTED AT [address] (test dajg=4837) [facility] [address] POCT-GLUCOSE [id number] 20:02:00 Test Item Value Reference Range Comments POC-GLUCOSE METER (BEAKER) 251 mg/dL 70-110 TESTED AT [address] (test zfkz=0300) [facility] [address] POCT-GLUCOSE [id number] 13:49:00 Test Item Value Reference Range Comments POC-GLUCOSE METER (BEAKER) 211 mg/dL 70-110 TESTED AT [address] (test mwtg=4726) [place] [id number] POCT-GLUCOSE [id number] 08:02:00 Test Item Value Reference Range Comments POC-GLUCOSE METER (BEAKER) 182 mg/dL 70-110 TESTED AT [address] (test oatb=0450) [facility] [address] BASIC METABOLIC [id number] 07:28:00 Test Item Value Reference Range Comments SODIUM (BEAKER) (test 138 meq/L 136-145 mdre=545) POTASSIUM (BEAKER) (test 4.1 meq/L 3.5-5.1 qbrd=152) CHLORIDE (BEAKER) (test 101 meq/L 98-107 mhgw=439) CO2 (BEAKER) (test 26 meq/L 22-29 hgyh=363) BLOOD UREA NITROGEN 42 mg/dL 7-21 (BEAKER) (test zrta=266) CREATININE (BEAKER) (test 6.85 mg/dL 0.57-1.25 kmle=392) GLUCOSE RANDOM (BEAKER) 138 mg/dL 70-105 (test npun=330) CALCIUM (BEAKER) (test 8.9 mg/dL 8.4-10.2 ymxx=884) EGFR (BEAKER) (test 7 mL/min/1.73 sq m ESTIMATED GFR IS NOT rsqd=2618) ACCURATE CREATININE CLEARANCE IN PREDICTING GLOMERULAR FILTRATION RATE. ESTIMATED GFR IS NOT APPLICABLE FOR DIALYSIS PATIENTS. VANCOMYCIN LEVEL, [id number] 07:07:00 Test Item Value Reference Range Comments VANCOMYCIN RANDOM (BEAKER) (test jarj=986) 25.1 ug/mL Reference Range: No NormalsCBC W/PLT COUNT & AUTO [id number] 07: 02:00 Test Item Value Reference Range Comments WHITE BLOOD CELL COUNT (BEAKER) (test rbxh=591) 15.1 K/ L 3.5-10.5 RED BLOOD CELL COUNT (BEAKER) (test vxra=287) 2.67 M/ L 3.93-5.22 HEMOGLOBIN (BEAKER) (test djvt=478) 7.4 GM/DL 11.2-15.7 HEMATOCRIT (BEAKER) (test qmvw=443) 24.8 % 34.1-44.9 MEAN CORPUSCULAR VOLUME (BEAKER) (test tsgm=674) 92.9 fL 79.4-94.8 MEAN CORPUSCULAR HEMOGLOBIN (BEAKER) (test 27.7 pg 25.6-32.2 dkfv=868) MEAN CORPUSCULAR HEMOGLOBIN CONC (BEAKER) (test 29.8 GM/DL 32.2-35.5 zgry=789) RED CELL DISTRIBUTION WIDTH (BEAKER) (test 15.9 % 11.7-14.4 ylqz=965) PLATELET COUNT (BEAKER) (test dwbh=822) 303 K/CU MM 150-450 MEAN PLATELET VOLUME (BEAKER) (test vnjf=926) 10.1 fL 9.4-12.3 NUCLEATED RED BLOOD CELLS (BEAKER) (test 0 /100 WBC 0-0 zkdu=316) NEUTROPHILS RELATIVE PERCENT (BEAKER) (test 85 % ghly=364) LYMPHOCYTES RELATIVE PERCENT (BEAKER) (test 6 % ophs=907) MONOCYTES RELATIVE PERCENT (BEAKER) (test 6 % rqfv=916) EOSINOPHILS RELATIVE PERCENT (BEAKER) (test 2 % bclo=964) BASOPHILS RELATIVE PERCENT (BEAKER) (test 0 % qlju=482) NEUTROPHILS ABSOLUTE COUNT (BEAKER) (test 12.90 K/ L 1.56-6.13 irdx=481) LYMPHOCYTES ABSOLUTE COUNT (BEAKER) (test 0.85 K/ L 1.18-3.74 vpki=807) MONOCYTES ABSOLUTE COUNT (BEAKER) (test 0.97 K/ L 0.24-0.36 rpsh=070) EOSINOPHILS ABSOLUTE COUNT (BEAKER) (test 0.25 K/ L 0.04-0.36 ryuo=082) BASOPHILS ABSOLUTE COUNT (BEAKER) (test 0.03 K/ L 0.01-0.08 iabc=331) IMMATURE GRANULOCYTES-RELATIVE PERCENT (BEAKER) 1 % 0-1 (test uazl=5691) POCT-GLUCOSE [id number] 21:24:00 Test Item Value Reference Range Comments POC-GLUCOSE METER (BEAKER) 189 mg/dL 70-110 TESTED AT [address] (test iuhy=6510) [place] [id number] POCT-GLUCOSE [id number] 17:50:00 Test Item Value Reference Range Comments POC-GLUCOSE METER (BEAKER) 215 mg/dL 70-110 TESTED AT [address] (test gavx=6923) [place] [id number] POCT-GLUCOSE [id number] 13:23:00 Test Item Value Reference Range Comments POC-GLUCOSE METER (BEAKER) 270 mg/dL 70-110 TESTED AT [address] (test ktrq=6924) [place] [id number] POCT-GLUCOSE [id number] 08:37:00 Test Item Value Reference Range Comments POC-GLUCOSE METER (BEAKER) 138 mg/dL 70-110 TESTED AT [address] (test fpvp=4997) [facility] [address] BASIC METABOLIC [id number] 06:54:00 Test Item Value Reference Range Comments SODIUM (BEAKER) (test 138 meq/L 136-145 ultq=890) POTASSIUM (BEAKER) (test 3.9 meq/L 3.5-5.1 cqip=486) CHLORIDE (BEAKER) (test 100 meq/L 98-107 nhsb=593) CO2 (BEAKER) (test 26 meq/L 22-29 ewia=941) BLOOD UREA NITROGEN 27 mg/dL 7-21 (BEAKER) (test atus=678) CREATININE (BEAKER) (test 5.01 mg/dL 0.57-1.25 kcxw=300) GLUCOSE RANDOM (BEAKER) 117 mg/dL 70-105 (test jbpn=980) CALCIUM (BEAKER) (test 8.6 mg/dL 8.4-10.2 ymvh=106) EGFR (BEAKER) (test 11 mL/min/1.73 sq m ESTIMATED GFR IS NOT vzau=2256) ACCURATE CREATININE CLEARANCE IN PREDICTING GLOMERULAR FILTRATION RATE. ESTIMATED GFR IS NOT APPLICABLE FOR DIALYSIS PATIENTS. [id number] 06:53:00 Test Item Value Reference Range Comments PHOSPHORUS (BEAKER) (test clfx=983) 4.1 mg/dL 2.3-4.7 [id number] 06:53:00 Test Item Value Reference Range Comments MAGNESIUM (BEAKER) (test nnot=961) 1.9 mg/dL 1.6-2.6 VANCOMYCIN LEVEL, [id number] 06:51:00 Test Item Value Reference Range Comments VANCOMYCIN RANDOM (BEAKER) (test fxzc=682) 27.5 ug/mL Reference Range: No NormalsCBC W/PLT COUNT & AUTO [id number] 06: 30:00 Test Item Value Reference Range Comments WHITE BLOOD CELL COUNT (BEAKER) (test dqpo=492) 14.6 K/ L 3.5-10.5 RED BLOOD CELL COUNT (BEAKER) (test yiok=863) 2.82 M/ L 3.93-5.22 HEMOGLOBIN (BEAKER) (test pyfi=019) 7.8 GM/DL 11.2-15.7 HEMATOCRIT (BEAKER) (test ctvl=162) 25.6 % 34.1-44.9 MEAN CORPUSCULAR VOLUME (BEAKER) (test rbwd=769) 90.8 fL 79.4-94.8 MEAN CORPUSCULAR HEMOGLOBIN (BEAKER) (test 27.7 pg 25.6-32.2 duyj=277) MEAN CORPUSCULAR HEMOGLOBIN CONC (BEAKER) (test 30.5 GM/DL 32.2-35.5 ixvd=762) RED CELL DISTRIBUTION WIDTH (BEAKER) (test 15.8 % 11.7-14.4 ecpt=244) PLATELET COUNT (BEAKER) (test bqum=677) 266 K/CU MM 150-450 MEAN PLATELET VOLUME (BEAKER) (test zqis=500) 10.2 fL 9.4-12.3 NUCLEATED RED BLOOD CELLS (BEAKER) (test 0 /100 WBC 0-0 wexa=932) NEUTROPHILS RELATIVE PERCENT (BEAKER) (test 82 % zbwz=161) LYMPHOCYTES RELATIVE PERCENT (BEAKER) (test 7 % cqos=706) MONOCYTES RELATIVE PERCENT (BEAKER) (test 9 % npbq=282) EOSINOPHILS RELATIVE PERCENT (BEAKER) (test 1 % eurh=019) BASOPHILS RELATIVE PERCENT (BEAKER) (test 0 % vzeo=575) NEUTROPHILS ABSOLUTE COUNT (BEAKER) (test 11.86 K/ L 1.56-6.13 ublb=731) LYMPHOCYTES ABSOLUTE COUNT (BEAKER) (test 1.00 K/ L 1.18-3.74 jfrz=921) MONOCYTES ABSOLUTE COUNT (BEAKER) (test 1.24 K/ L 0.24-0.36 oqtl=009) EOSINOPHILS ABSOLUTE COUNT (BEAKER) (test 0.21 K/ L 0.04-0.36 juxk=755) BASOPHILS ABSOLUTE COUNT (BEAKER) (test 0.04 K/ L 0.01-0.08 dtli=910) IMMATURE GRANULOCYTES-RELATIVE PERCENT (BEAKER) 1 % 0-1 (test cnhp=6779) POCT-GLUCOSE [id number] 00:41:00 Test Item Value Reference Range Comments POC-GLUCOSE METER (BEAKER) 139 mg/dL 70-110 TESTED AT [address] (test svlt=4606) [place] [address] HEMOGLOBIN AND [id number] 23:23:00 Test Item Value Reference Range Comments HEMOGLOBIN (BEAKER) (test vdxp=131) 9.0 GM/DL 11.2-15.7 HEMATOCRIT (BEAKER) (test cpjx=229) 29.7 % 34.1-44.9 Check after HD after she receives her blood transfusionPOCT-GLUCOSE [id number] 17:53:00 Test Item Value Reference Range Comments POC-GLUCOSE METER (BEAKER) 177 mg/dL 70-110 TESTED AT [address] (test hybs=1138) [place] [address] POCT-GLUCOSE [id number] 13:03:00 Test Item Value Reference Range Comments POC-GLUCOSE METER (BEAKER) 171 mg/dL 70-110 TESTED AT [address] (test cpyd=3440) [place] [address] BLOOD [id number] 09:44:00 Test Item Value Reference Range Comments CULTURE (BEAKER) (test METHICILLIN RESISTANT From Aerobic And lrlz=7366) STAPHYLOCOCCUS AUREUS Anaerobic Bottles Methicillin resistant Staphylococcus aureus Clindamycin (test code=10) Erythromycin (test code=4) Linezolid (test code=40) Nitrofurantoin (test code=23) Oxacillin (test code=14) Rifampin (test code=43) Tetracycline (test code=2) Trimethoprim + Sulfamethoxazole (test code=47) Vancomycin (test code=13) CULTURE (BEAKER) (test From Aerobic Bottle oqxk=9635) Only Methicillin resistant Staphylococcus aureusSame as first isolate. GRAM STAIN RESULT From aerobic and (BEAKER) (test tikf=3197) anaerobic bottles: gram positive cocci in clusters CT, [id number] 09:28:00FINAL REPORT ABDOMINAL AND PELVIS CT DATED [...] Aguilera Verified Date/Time: 2017 09:28:06 Reading Location: [address] Body Reading Room PROTHROMBIN [id number] 09:18:00 Test Item Value Reference Range Comments PROTIME (BEAKER) (test onto=585) 14.5 seconds 11.7-14.7 INR (BEAKER) (test adtg=231) 1.1 <=5.9 RECOMMENDED COUMADIN/WARFARIN INR THERAPY RANGESSTANDARD DOSE: 2.0 - 3.0 Includes: PROPHYLAXIS forvenous thrombosis, systemic embolization; TREATMENT for venous thrombosis and/or pulmonary embolus.HIGH RISK: Target INR is 2.5-3.5 for patients with mechanical heart valves.HEMOGLOBIN AND [id number] 09 :08:00 Test Item Value Reference Range Comments HEMOGLOBIN (BEAKER) (test etuw=264) 7.0 GM/DL 11.2-15.7 HEMATOCRIT (BEAKER) (test spcl=502) 23.2 % 34.1-44.9 BASIC METABOLIC [id number] 06:55:00 Test Item Value Reference Range Comments SODIUM (BEAKER) (test 137 meq/L 136-145 eimk=493) POTASSIUM (BEAKER) (test 4.4 meq/L 3.5-5.1 rxpu=197) CHLORIDE (BEAKER) (test 101 meq/L 98-107 kvtr=718) CO2 (BEAKER) (test 23 meq/L 22-29 fjxg=959) BLOOD UREA NITROGEN 56 mg/dL 7-21 (BEAKER) (test zaco=320) CREATININE (BEAKER) (test 8.16 mg/dL 0.57-1.25 iwav=765) GLUCOSE RANDOM (BEAKER) 131 mg/dL 70-105 (test jmwf=847) CALCIUM (BEAKER) (test 8.4 mg/dL 8.4-10.2 qrrx=255) EGFR (BEAKER) (test 6 mL/min/1.73 sq m ESTIMATED GFR IS NOT tlha=6102) ACCURATE CREATININE CLEARANCE IN PREDICTING GLOMERULAR FILTRATION RATE. ESTIMATED GFR IS NOT APPLICABLE FOR DIALYSIS PATIENTS. [id number] 06:40:00 Test Item Value Reference Range Comments PARTIAL THROMBOPLASTIN TIME (BEAKER) (test 91.0 seconds 22.5-36.0 ewxw=734) CBC W/PLT COUNT & AUTO [id number] 06:33:00 Test Item Value Reference Range Comments WHITE BLOOD CELL COUNT (BEAKER) (test mkkt=539) 16.6 K/ L 3.5-10.5 RED BLOOD CELL COUNT (BEAKER) (test geqh=168) 2.31 M/ L 3.93-5.22 HEMOGLOBIN (BEAKER) (test czty=747) 6.4 GM/DL 11.2-15.7 HEMATOCRIT (BEAKER) (test bgug=924) 21.3 % 34.1-44.9 MEAN CORPUSCULAR VOLUME (BEAKER) (test yznp=163) 92.2 fL 79.4-94.8 MEAN CORPUSCULAR HEMOGLOBIN (BEAKER) (test 27.7 pg 25.6-32.2 fjck=994) MEAN CORPUSCULAR HEMOGLOBIN CONC (BEAKER) (test 30.0 GM/DL 32.2-35.5 ogac=328) RED CELL DISTRIBUTION WIDTH (BEAKER) (test 15.0 % 11.7-14.4 flqi=809) PLATELET COUNT (BEAKER) (test sdlt=521) 276 K/CU MM 150-450 MEAN PLATELET VOLUME (BEAKER) (test zbvu=280) 10.4 fL 9.4-12.3 NUCLEATED RED BLOOD CELLS (BEAKER) (test 0 /100 WBC 0-0 ymsz=194) NEUTROPHILS RELATIVE PERCENT (BEAKER) (test 82 % zfyf=046) LYMPHOCYTES RELATIVE PERCENT (BEAKER) (test 7 % hzib=771) MONOCYTES RELATIVE PERCENT (BEAKER) (test 8 % dllj=236) EOSINOPHILS RELATIVE PERCENT (BEAKER) (test 1 % njub=350) BASOPHILS RELATIVE PERCENT (BEAKER) (test 0 % ohqn=404) NEUTROPHILS ABSOLUTE COUNT (BEAKER) (test 13.67 K/ L 1.56-6.13 rtmg=332) LYMPHOCYTES ABSOLUTE COUNT (BEAKER) (test 1.14 K/ L 1.18-3.74 hoxx=418) MONOCYTES ABSOLUTE COUNT (BEAKER) (test 1.38 K/ L 0.24-0.36 qvxx=751) EOSINOPHILS ABSOLUTE COUNT (BEAKER) (test 0.08 K/ L 0.04-0.36 gojh=096) BASOPHILS ABSOLUTE COUNT (BEAKER) (test 0.06 K/ L 0.01-0.08 drxk=104) IMMATURE GRANULOCYTES-RELATIVE PERCENT (BEAKER) 2 % 0-1 (test uyli=1423) POCT-GLUCOSE [id number] 21:47:00 Test Item Value Reference Range Comments POC-GLUCOSE METER (BEAKER) 173 mg/dL 70-110 TESTED AT [address] (test qoqe=9674) [place] [address] [id number] 18:27:00 Test Item Value Reference Range Comments PARTIAL THROMBOPLASTIN TIME (BEAKER) (test 78.5 seconds 22.5-36.0 fdxs=398) POCT-GLUCOSE [id number] 13:23:00 Test Item Value Reference Range Comments POC-GLUCOSE METER (BEAKER) 176 mg/dL 70-110 TESTED AT [address] (test gqxh=8444) [place] [address] [id number] 11:24:00 Test Item Value Reference Range Comments PARTIAL THROMBOPLASTIN TIME (BEAKER) (test 83.7 seconds 22.5-36.0 iouh=715) POCT-GLUCOSE [id number] 08:13:00 Test Item Value Reference Range Comments POC-GLUCOSE METER (BEAKER) 189 mg/dL 70-110 TESTED AT [address] (test lmrm=7002) [place] [address] BASIC METABOLIC [id number] 06:03:00 Test Item Value Reference Range Comments SODIUM (BEAKER) (test 135 meq/L 136-145 ccdn=727) POTASSIUM (BEAKER) (test 3.9 meq/L 3.5-5.1 bwij=607) CHLORIDE (BEAKER) (test 100 meq/L 98-107 qzqv=775) CO2 (BEAKER) (test 23 meq/L 22-29 kdod=459) BLOOD UREA NITROGEN 41 mg/dL 7-21 (BEAKER) (test zzvx=950) CREATININE (BEAKER) (test 6.33 mg/dL 0.57-1.25 pfrl=954) GLUCOSE RANDOM (BEAKER) 154 mg/dL 70-105 (test fgjg=271) CALCIUM (BEAKER) (test 8.8 mg/dL 8.4-10.2 npvk=955) EGFR (BEAKER) (test 8 mL/min/1.73 sq m ESTIMATED GFR IS NOT eglp=0850) ACCURATE CREATININE CLEARANCE IN PREDICTING GLOMERULAR FILTRATION RATE. ESTIMATED GFR IS NOT APPLICABLE FOR DIALYSIS PATIENTS. VANCOMYCIN LEVEL, [id number] 05:41:00 Test Item Value Reference Range Comments VANCOMYCIN RANDOM (BEAKER) (test sqar=982) 34.9 ug/mL Reference Range: No NormalsCBC W/PLT COUNT & AUTO [id number] 05: 36:00 Test Item Value Reference Range Comments WHITE BLOOD CELL COUNT (BEAKER) (test ikyp=686) 15.0 K/ L 3.5-10.5 RED BLOOD CELL COUNT (BEAKER) (test oksy=911) 2.79 M/ L 3.93-5.22 HEMOGLOBIN (BEAKER) (test xdbt=140) 7.6 GM/DL 11.2-15.7 HEMATOCRIT (BEAKER) (test asxf=401) 25.8 % 34.1-44.9 MEAN CORPUSCULAR VOLUME (BEAKER) (test sqrn=526) 92.5 fL 79.4-94.8 MEAN CORPUSCULAR HEMOGLOBIN (BEAKER) (test 27.2 pg 25.6-32.2 apor=665) MEAN CORPUSCULAR HEMOGLOBIN CONC (BEAKER) (test 29.5 GM/DL 32.2-35.5 opgd=269) RED CELL DISTRIBUTION WIDTH (BEAKER) (test 14.6 % 11.7-14.4 rsjv=210) PLATELET COUNT (BEAKER) (test frgj=689) 229 K/CU MM 150-450 MEAN PLATELET VOLUME (BEAKER) (test ynon=637) 10.6 fL 9.4-12.3 NUCLEATED RED BLOOD CELLS (BEAKER) (test 0 /100 WBC 0-0 omvq=811) NEUTROPHILS RELATIVE PERCENT (BEAKER) (test 85 % slre=823) LYMPHOCYTES RELATIVE PERCENT (BEAKER) (test 6 % fpdu=973) MONOCYTES RELATIVE PERCENT (BEAKER) (test 7 % uekv=866) EOSINOPHILS RELATIVE PERCENT (BEAKER) (test 1 % msyg=639) BASOPHILS RELATIVE PERCENT (BEAKER) (test 0 % wxua=776) NEUTROPHILS ABSOLUTE COUNT (BEAKER) (test 12.75 K/ L 1.56-6.13 vpzo=251) LYMPHOCYTES ABSOLUTE COUNT (BEAKER) (test 0.92 K/ L 1.18-3.74 bxkn=602) MONOCYTES ABSOLUTE COUNT (BEAKER) (test 1.00 K/ L 0.24-0.36 hlam=530) EOSINOPHILS ABSOLUTE COUNT (BEAKER) (test 0.17 K/ L 0.04-0.36 cpag=784) BASOPHILS ABSOLUTE COUNT (BEAKER) (test 0.05 K/ L 0.01-0.08 wjhf=653) IMMATURE GRANULOCYTES-RELATIVE PERCENT (BEAKER) 1 % 0-1 (test scxs=8877) [id number] 05:31:00 Test Item Value Reference Range Comments PARTIAL THROMBOPLASTIN TIME (BEAKER) (test 69.7 seconds 22.5-36.0 wpvw=140) POCT-GLUCOSE [id number] 22:11:00 Test Item Value Reference Range Comments POC-GLUCOSE METER (BEAKER) 175 mg/dL 70-110 TESTED AT [address] (test vnmc=4880) [place] [address] [id number] 20:48:00 Test Item Value Reference Range Comments PARTIAL THROMBOPLASTIN TIME (BEAKER) (test 61.5 seconds 22.5-36.0 tpbf=155) [id number] 19:00:00 Test Item Value Reference Range Comments PARTIAL THROMBOPLASTIN TIME (BEAKER) (test > seconds 22.5-36.0 xwdr=248) POCT-GLUCOSE [id number] 17:10:00 Test Item Value Reference Range Comments POC-GLUCOSE METER (BEAKER) 211 mg/dL 70-110 TESTED AT [address] (test shee=9957) [place] [address] POCT-GLUCOSE [id number] 12:54:00 Test Item Value Reference Range Comments POC-GLUCOSE METER (BEAKER) 181 mg/dL 70-110 TESTED AT [address] (test qgee=6721) [place] [address] [id number] 11:03:00 Test Item Value Reference Range Comments PARTIAL THROMBOPLASTIN TIME (BEAKER) (test 83.7 seconds 22.5-36.0 itar=058) CATHETER TIP [id number] 09:36:00 Test Item Value Reference Range Comments CULTURE (BEAKER) (test kcco=0687) No growth POCT-GLUCOSE [id number] 08:14:00 Test Item Value Reference Range Comments POC-GLUCOSE METER (BEAKER) 191 mg/dL 70-110 TESTED AT [address] (test zohn=1761) [facility] [address] [id number] 03:56:00 Test Item Value Reference Range Comments PARTIAL THROMBOPLASTIN TIME (BEAKER) (test 104.2 seconds 22.5-36.0 dpua=012) POCT-GLUCOSE [id number] 03:23:00 Test Item Value Reference Range Comments POC-GLUCOSE METER (BEAKER) 152 mg/dL 70-110 TESTED AT [address] (test mvan=5374) [facility] [address] POCT-GLUCOSE [id number] 22:14:00 Test Item Value Reference Range Comments POC-GLUCOSE METER (BEAKER) 193 mg/dL 70-110 TESTED AT [address] (test vukm=8187) [place] [id number] 21:14:00 Test Item Value Reference Range Comments PARTIAL THROMBOPLASTIN TIME (BEAKER) (test 82.5 seconds 22.5-36.0 kbae=110) POCT-GLUCOSE [id number] 19:35:00 Test Item Value Reference Range Comments POC-GLUCOSE METER (BEAKER) 156 mg/dL 70-110 TESTED AT [address] (test cwwr=3959) [place] [id number] VANCOMYCIN LEVEL, [id number] 18:48:00 Test Item Value Reference Range Comments VANCOMYCIN RANDOM (BEAKER) (test lurb=177) 12.6 ug/mL Reference Range: No NormalsPlease draw a random vancomycin level at end of dialysis tomorrow 11/25HEPATITIS B SURFACE [id number] 15:50:00 Test Item Value Reference Range Comments HEPATITIS B SURFACE ANTIGEN (2) (BEAKER) (test Nonreactive Nonreactive jxly=7026) [id number] 15:27:00 Test Item Value Reference Range Comments PARTIAL THROMBOPLASTIN TIME (BEAKER) (test 64.9 seconds 22.5-36.0 iqcl=293) BASIC METABOLIC [id number] 14:04:00 Test Item Value Reference Range Comments SODIUM (BEAKER) (test 134 meq/L 136-145 filt=068) POTASSIUM (BEAKER) (test 3.9 meq/L 3.5-5.1 ksxl=949) CHLORIDE (BEAKER) (test 100 meq/L 98-107 vsuu=941) CO2 (BEAKER) (test 22 meq/L 22-29 qbcg=625) BLOOD UREA NITROGEN 68 mg/dL 7-21 (BEAKER) (test xguw=663) CREATININE (BEAKER) (test 8.46 mg/dL 0.57-1.25 mbfx=959) GLUCOSE RANDOM (BEAKER) 156 mg/dL 70-105 (test olps=896) CALCIUM (BEAKER) (test 8.7 mg/dL 8.4-10.2 aaos=082) EGFR (BEAKER) (test 6 mL/min/1.73 sq m ESTIMATED GFR IS NOT qyoy=2021) ACCURATE CREATININE CLEARANCE IN PREDICTING GLOMERULAR FILTRATION RATE. ESTIMATED GFR IS NOT APPLICABLE FOR DIALYSIS PATIENTS. [id number] 13:33:00 Test Item Value Reference Range Comments PARTIAL THROMBOPLASTIN TIME (BEAKER) (test 67.9 seconds 22.5-36.0 vhst=048) BLOOD [id number] 10:14:00 Test Item Value Reference Range Comments CULTURE (BEAKER) From Aerobic And Anaerobic (test fbgr=7100) Bottles Staphylococcus aureusRefer to previous culture ofMethicillin resistant Staphylococcus aureus GRAM STAIN RESULT From aerobic and (BEAKER) (test anaerobic bottles: aqfu=8309) gram positive cocci in clusters BLOOD [id number] 10:12:00 Test Item Value Reference Range Comments CULTURE (BEAKER) (test METHICILLIN RESISTANT From Aerobic And kcpn=6206) STAPHYLOCOCCUS AUREUS Anaerobic Bottles Methicillin resistant Staphylococcus aureus Clindamycin (test code=10) Erythromycin (test code=4) Linezolid (test code=40) Nitrofurantoin (test code=23) Oxacillin (test code=14) Rifampin (test code=43) Tetracycline (test code=2) Trimethoprim + Sulfamethoxazole (test code=47) Vancomycin (test code=13) GRAM STAIN RESULT From aerobic and (BEAKER) (test cnqj=5892) anaerobic bottles: gram positive cocci in clusters POCT-GLUCOSE [id number] 08:05:00 Test Item Value Reference Range Comments POC-GLUCOSE METER (BEAKER) 182 mg/dL 70-[address] [facility] [address] [facility] (test tnhg=4883) [facility] [address] [id number] 06:49:00 Test Item Value Reference Range Comments PARTIAL THROMBOPLASTIN TIME (BEAKER) (test 83.0 seconds 22.5-36.0 mpeg=503) CBC W/PLT COUNT & AUTO [id number] 05:45:00 Test Item Value Reference Range Comments WHITE BLOOD CELL COUNT (BEAKER) (test eatl=570) 8.1 K/ L 3.5-10.5 RED BLOOD CELL COUNT (BEAKER) (test erdd=955) 2.88 M/ L 3.93-5.22 HEMOGLOBIN (BEAKER) (test jnxm=796) 8.1 GM/DL 11.2-15.7 HEMATOCRIT (BEAKER) (test ambt=424) 26.6 % 34.1-44.9 MEAN CORPUSCULAR VOLUME (BEAKER) (test xfci=202) 92.4 fL 79.4-94.8 MEAN CORPUSCULAR HEMOGLOBIN (BEAKER) (test 28.1 pg 25.6-32.2 jahi=071) MEAN CORPUSCULAR HEMOGLOBIN CONC (BEAKER) (test 30.5 GM/DL 32.2-35.5 mdyi=268) RED CELL DISTRIBUTION WIDTH (BEAKER) (test 14.9 % 11.7-14.4 kfxt=809) PLATELET COUNT (BEAKER) (test qqbw=946) 117 K/CU MM 150-450 MEAN PLATELET VOLUME (BEAKER) (test oheh=908) 10.5 fL 9.4-12.3 NUCLEATED RED BLOOD CELLS (BEAKER) (test 0 /100 WBC 0-0 hmit=186) NEUTROPHILS RELATIVE PERCENT (BEAKER) (test 72 % tufo=090) LYMPHOCYTES RELATIVE PERCENT (BEAKER) (test 11 % tigu=769) MONOCYTES RELATIVE PERCENT (BEAKER) (test 10 % iawn=210) EOSINOPHILS RELATIVE PERCENT (BEAKER) (test 5 % debw=754) BASOPHILS RELATIVE PERCENT (BEAKER) (test 1 % wxhq=330) NEUTROPHILS ABSOLUTE COUNT (BEAKER) (test 5.83 K/ L 1.56-6.13 ionh=144) LYMPHOCYTES ABSOLUTE COUNT (BEAKER) (test 0.92 K/ L 1.18-3.74 bwjj=163) MONOCYTES ABSOLUTE COUNT (BEAKER) (test 0.79 K/ L 0.24-0.36 pixl=300) EOSINOPHILS ABSOLUTE COUNT (BEAKER) (test 0.41 K/ L 0.04-0.36 fwiy=949) BASOPHILS ABSOLUTE COUNT (BEAKER) (test 0.05 K/ L 0.01-0.08 ovxo=648) IMMATURE GRANULOCYTES-RELATIVE PERCENT (BEAKER) 1 % 0-1 (test fkrp=0669) BASIC METABOLIC [id number] 00:23:00 Test Item Value Reference Range Comments SODIUM (BEAKER) (test 134 meq/L 136-145 yiqo=071) POTASSIUM (BEAKER) (test 3.8 meq/L 3.5-5.1 clyx=190) CHLORIDE (BEAKER) (test 100 meq/L 98-107 yzvy=176) CO2 (BEAKER) (test 22 meq/L 22-29 fzaf=985) BLOOD UREA NITROGEN 62 mg/dL 7-21 (BEAKER) (test hmug=548) CREATININE (BEAKER) (test 7.39 mg/dL 0.57-1.25 kiku=766) GLUCOSE RANDOM (BEAKER) 155 mg/dL 70-105 (test yilf=348) CALCIUM (BEAKER) (test 8.6 mg/dL 8.4-10.2 tgbr=842) EGFR (BEAKER) (test 7 mL/min/1.73 sq m ESTIMATED GFR IS NOT dcyq=8531) ACCURATE CREATININE CLEARANCE IN PREDICTING GLOMERULAR FILTRATION RATE. ESTIMATED GFR IS NOT APPLICABLE FOR DIALYSIS PATIENTS. [id number] 00:15:00 Test Item Value Reference Range Comments PHOSPHORUS (BEAKER) (test frmo=607) 3.5 mg/dL 2.3-4.7 [id number] 00:15:00 Test Item Value Reference Range Comments MAGNESIUM (BEAKER) (test abcg=232) 2.3 mg/dL 1.6-2.6 [id number] 00:03:00 Test Item Value Reference Range Comments PARTIAL THROMBOPLASTIN TIME (BEAKER) (test 105.0 seconds 22.5-36.0 qzwx=560) POCT-GLUCOSE [id number] 22:14:00 Test Item Value Reference Range Comments POC-GLUCOSE METER (BEAKER) 200 mg/dL 70-[address] [facility] [address] [facility] (test jyjm=4760) [facility] [address] [id number] 17:22:00 Test Item Value Reference Range Comments PROTIME (BEAKER) (test rznv=960) 13.7 seconds 11.7-14.7 INR (BEAKER) (test mhxx=250) 1.0 <=5.9 PARTIAL THROMBOPLASTIN TIME (BEAKER) (test 64.3 seconds 22.5-36.0 usel=604) RECOMMENDED COUMADIN/WARFARIN INR THERAPY RANGESSTANDARD DOSE: 2.0 - 3.0 Includes: PROPHYLAXIS forvenous thrombosis, systemic embolization; TREATMENT for venous thrombosis and/or pulmonary embolus.HIGH RISK: Target INR is 2.5-3.5 for patients with mechanical heart valves.Prior to initiating heparinPrior to initiating [id number] 17:22:00 Test Item Value Reference Range Comments PARTIAL THROMBOPLASTIN TIME (BEAKER) (test 64.3 seconds 22.5-36.0 fnrs=388) POCT-GLUCOSE [id number] 17:19:00 Test Item Value Reference Range Comments POC-GLUCOSE METER (BEAKER) 169 mg/dL 70-110 TESTED AT [address] (test udah=4866) [place] [address] POCT-GLUCOSE [id number] 12:30:00 Test Item Value Reference Range Comments POC-GLUCOSE METER (BEAKER) 235 mg/dL 70-110 TESTED AT [address] (test xzap=4742) [place] [address] [id number] 10:05:00 Test Item Value Reference Range Comments PARTIAL THROMBOPLASTIN TIME (BEAKER) (test 38.6 seconds 22.5-36.0 kxjk=438) Prior to initiating heparinPOCT-GLUCOSE [id number] 07:40:00 Test Item Value Reference Range Comments POC-GLUCOSE METER (BEAKER) 221 mg/dL 70-110 TESTED AT [address] (test uigt=3598) [place] [address] [id number] 05:58:00 Test Item Value Reference Range Comments MAGNESIUM (BEAKER) (test rxxz=098) 2.1 mg/dL 1.6-2.6 [id number] 05:58:00 Test Item Value Reference Range Comments PHOSPHORUS (BEAKER) (test ggnl=683) 3.5 mg/dL 2.3-4.7 TROPONIN [id number] 05:15:00 Test Item Value Reference Range Comments TROPONIN I (BEAKER) (test lamq=021) 0.31 ng/mL 0.00-0.03 Troponin I (TnI) levels [...] disease, and persistent tachyarrhythmia.LACTIC ACID, VENOUS, WHOLE [id number] 05:13:00 Test Item Value Reference Range Comments LACTATE BLOOD VENOUS (2) (BEAKER) (test 0.8 mmol/L 0.5-2.2 amyk=3408) BASIC METABOLIC [id number] 05:13:00 Test Item Value Reference Range Comments SODIUM (BEAKER) (test 136 meq/L 136-145 nnmx=898) POTASSIUM (BEAKER) (test 3.4 meq/L 3.5-5.1 aprj=370) CHLORIDE (BEAKER) (test 99 meq/L 98-107 vrzw=634) CO2 (BEAKER) (test 25 meq/L 22-29 grfe=273) BLOOD UREA NITROGEN 43 mg/dL 7-21 (BEAKER) (test erfd=278) CREATININE (BEAKER) (test 6.21 mg/dL 0.57-1.25 wwss=061) GLUCOSE RANDOM (BEAKER) 175 mg/dL 70-105 (test punn=205) CALCIUM (BEAKER) (test 8.6 mg/dL 8.4-10.2 mnzg=375) EGFR (BEAKER) (test 8 mL/min/1.73 sq m ESTIMATED GFR IS NOT mgjc=8387) ACCURATE CREATININE CLEARANCE IN PREDICTING GLOMERULAR FILTRATION RATE. ESTIMATED GFR IS NOT APPLICABLE FOR DIALYSIS PATIENTS. B-TYPE NATRIURETIC FACTOR (BNP)2018-11-24 05:12:00 Test Item Value Reference Range Comments B-TYPE NATRIURETIC PEPTIDE (BEAKER) (test 190 pg/mL 0-100 yemv=336) CBC W/PLT COUNT & AUTO [id number] 05:12:00 Test Item Value Reference Range Comments WHITE BLOOD CELL COUNT (BEAKER) (test qhyu=877) 12.0 K/ L 3.5-10.5 RED BLOOD CELL COUNT (BEAKER) (test ccpc=721) 2.97 M/ L 3.93-5.22 HEMOGLOBIN (BEAKER) (test lwjg=795) 8.1 GM/DL 11.2-15.7 HEMATOCRIT (BEAKER) (test lttn=775) 27.6 % 34.1-44.9 MEAN CORPUSCULAR VOLUME (BEAKER) (test qobn=743) 92.9 fL 79.4-94.8 MEAN CORPUSCULAR HEMOGLOBIN (BEAKER) (test 27.3 pg 25.6-32.2 tbhn=170) MEAN CORPUSCULAR HEMOGLOBIN CONC (BEAKER) (test 29.3 GM/DL 32.2-35.5 ndam=299) RED CELL DISTRIBUTION WIDTH (BEAKER) (test 15.0 % 11.7-14.4 dxue=015) PLATELET COUNT (BEAKER) (test femx=887) 115 K/CU MM 150-450 MEAN PLATELET VOLUME (BEAKER) (test mvzy=289) 10.9 fL 9.4-12.3 NUCLEATED RED BLOOD CELLS (BEAKER) (test 0 /100 WBC 0-0 emvm=247) NEUTROPHILS RELATIVE PERCENT (BEAKER) (test 81 % nghk=854) LYMPHOCYTES RELATIVE PERCENT (BEAKER) (test 6 % riab=694) MONOCYTES RELATIVE PERCENT (BEAKER) (test 10 % svxv=966) EOSINOPHILS RELATIVE PERCENT (BEAKER) (test 3 % jnto=437) BASOPHILS RELATIVE PERCENT (BEAKER) (test 1 % ulfi=754) NEUTROPHILS ABSOLUTE COUNT (BEAKER) (test 9.67 K/ L 1.56-6.13 atlc=428) LYMPHOCYTES ABSOLUTE COUNT (BEAKER) (test 0.66 K/ L 1.18-3.74 nejy=112) MONOCYTES ABSOLUTE COUNT (BEAKER) (test 1.18 K/ L 0.24-0.36 jxvb=337) EOSINOPHILS ABSOLUTE COUNT (BEAKER) (test 0.32 K/ L 0.04-0.36 apdw=963) BASOPHILS ABSOLUTE COUNT (BEAKER) (test 0.06 K/ L 0.01-0.08 jext=742) IMMATURE GRANULOCYTES-RELATIVE PERCENT (BEAKER) 1 % 0-1 (test mvge=5543) POCT-GLUCOSE [id number] 22:03:00 Test Item Value Reference Range Comments POC-GLUCOSE METER (BEAKER) 187 mg/dL 70-[address] [facility] [address] [facility] (test ywao=2921) [facility] [address] POCT-GLUCOSE [id number] 18:08:00 Test Item Value Reference Range Comments POC-GLUCOSE METER (BEAKER) 251 mg/dL 70-110 TESTED AT [place] [id number] [facility] (test rkvm=7979) [facility] [address] ANG, CENTRAL VENOUS CATH PLCMT (JUG/FEM) > 5 Y.O. WITH [id number] 16:53 :00Reason for exam:->discussed, guidewire exchange of [...] Connor Verified Date/Time: 11/23/2018 16:53:15 Reading Location: [address] Body Reading Room BLOOD CULTURE IDENTIFICATION [id number] 13:44:00 Test Item Value Reference Range Comments LISTERIA MONOCYTOGENES (test Not detected Not detected tbhr=[id number]) STAPHYLOCOCCUS (test Detected Not detected wllg=4839385) STAPHYLOCOCCUS AUREUS (test Detected Not detected First line therapy: vwyp=2808214) VancomycinID consultation strongly encouraged. Staphylococcus aureus DETECTED MecA DETECTEDReference Range: Not Detected STREPTOCOCCUS (test Not detected Not detected eemo=0560199) STREPTOCOCCUS AGALACTIAE Not detected Not detected (GROUP B) (test utjk=6003172) STREPTOCOCCUS PNEUMONIAE Not detected Not detected (test hxev=9706570) STREPTOCOCCUS PYOGENES (GROUP Not detected Not detected A) (test jsrw=5216126) ACINETOBACTER BAUMANNII (test Not detected Not detected eddo=5528469) HAEMOPHILUS INFLUENZAE (test Not detected Not detected pavx=8874461) NEISSERIA MENINGITIDIS (test Not detected Not detected idpo=1622676) ENTEROBACTERIACEAE (test Not detected Not detected rhxc=4410633) ENTEROBACTER CLOACOE COMPLEX Not detected Not detected (test ueoj=5868624) KLEBSIELLA OXYTOCA (test Not detected Not detected kabi=0105714) KLEBSIELLA PNEUMONIAE (test Not detected Not detected pijb=4414) PROTEUS (test yxum=6007666) Not detected Not detected SERRATIA MARCESCENS (test Not detected Not detected vgjs=4821503) SHRUTHI ALBICANS (test Not detected Not detected ujef=9516541) SHRUTHI GLABRATA (test Not detected Not detected oick=1281846) SHRUTHI KRUSEI (test Not detected Not detected ikgu=4771146) SHRUTHI PARAPSILOSIS (test Not detected Not detected hnyu=4206702) SHRUTHI TROPICALIS (test Not detected Not detected uvmx=3019929) ESCHERICHIA COLI (test Not detected Not detected otro=1780244) METHICILLIN-RESISTANCE GENE Detected Not detected (test qpna=8916910) VANCOMYCIN-RESISTANCE GENE Not detected (test khed=7782121) CARBAPENEM-RESISTANCE GENE Not detected (test rlnv=8023023) ENTEROCOCCUS-BEAKER (test Not detected Not detected uyqa=6555671) PSEUDOMONAS AERUGINOSA-BEAKER Not detected Not detected (test gsnl=9534067) Other bacteria and resistance markers not targeted by this PCR panel cannot be excluded; therefore clinical correlation and follow up of serology, culture results, and other molecular studies is required. The results are not intended to be used as the sole means for clinical diagnosis or patient management decisions. This sample was tested at the [facility] Molecular Diagnostics Laboratory using the [employer] Blood Culture ID Panel. It is FDA cleared and has been verified and approved by the [facility] Molecular Diagnostics Laboratory for clinical use. This laboratory is CLIA-certified and College ofAmerican Pathologists (CAP)-accredited to perform high complexity testing.VANCOMYCIN LEVEL, [id number] 13:20:00 Test Item Value Reference Range Comments VANCOMYCIN RANDOM (AKER) (test chsa=205) 22.9 ug/mL Reference Range: No NormalsPOCT-GLUCOSE [id number] 13:00:00 Test Item Value Reference Range Comments POC-GLUCOSE METER (AKER) 249 mg/dL 70-[address] [facility] [address] (test poii=1112) [facility] [address] TROPONIN [id number] 10:54:00 Test Item Value Reference Range Comments TROPONIN I (BEAKER) (test vclb=941) 0.30 ng/mL 0.00-0.03 Troponin I (TnI) levels [...] failure, acidosis, acute neurological disease, and persistent tachyarrhythmia.[id number] 10:45:00 Test Item Value Reference Range Comments LIPASE (BEAKER) (test prwl=258) 12 U/L 8-78 RAD, ABDOMEN/KUB, 1 VIEW [id number] 08:42:00Reason for exam:->abd painFINAL REPORT RAD, ABDOMEN/KUB, [...] MDReport Verified Date/Time: 11/23/2018 08:42:11 Reading Location: [facility] Radiology Reading Room COMPREHENSIVE METABOLIC [id number] 07:44:00 Test Item Value Reference Range Comments TOTAL PROTEIN (BEAKER) 6.0 gm/dL 6.0-8.3 (test tfqq=470) ALBUMIN (BEAKER) (test 3.0 g/dL 3.5-5.0 euag=8171) ALKALINE PHOSPHATASE 248 U/L 40-150 (BEAKER) (test hanj=459) BILIRUBIN TOTAL (BEAKER) 0.8 mg/dL 0.2-1.2 (test mszb=060) SODIUM (BEAKER) (test 137 meq/L 136-145 grnj=053) POTASSIUM (BEAKER) (test 3.6 meq/L 3.5-5.1 nqen=942) CHLORIDE (BEAKER) (test 101 meq/L 98-107 ebav=592) CO2 (BEAKER) (test 28 meq/L 22-29 pscs=947) BLOOD UREA NITROGEN 26 mg/dL 7-21 (BEAKER) (test pojm=807) CREATININE (BEAKER) (test 4.09 mg/dL 0.57-1.25 nhwu=339) GLUCOSE RANDOM (BEAKER) 201 mg/dL 70-105 (test dpsc=895) CALCIUM (BEAKER) (test 9.3 mg/dL 8.4-10.2 ujmj=055) AST (SGOT) (BEAKER) (test 39 U/L 5-34 uhqd=318) ALT (SGPT) (BEAKER) (test 18 U/L 6-55 mwcz=348) EGFR (BEAKER) (test 13 mL/min/1.73 sq m ESTIMATED GFR IS NOT hpxt=3988) ACCURATE CREATININE CLEARANCE IN PREDICTING GLOMERULAR FILTRATION RATE. ESTIMATED GFR IS NOT APPLICABLE FOR DIALYSIS PATIENTS. BASIC METABOLIC [id number] 07:44:00 Test Item Value Reference Range Comments SODIUM (BEAKER) (test 137 meq/L 136-145 qedm=154) POTASSIUM (BEAKER) (test 3.6 meq/L 3.5-5.1 gmnc=859) CHLORIDE (BEAKER) (test 101 meq/L 98-107 qqlz=636) CO2 (BEAKER) (test 28 meq/L 22-29 ifav=591) BLOOD UREA NITROGEN 26 mg/dL 7-21 (BEAKER) (test lzyn=342) CREATININE (BEAKER) (test 4.09 mg/dL 0.57-1.25 ysph=695) GLUCOSE RANDOM (BEAKER) 201 mg/dL 70-105 (test sjwo=673) CALCIUM (BEAKER) (test 9.3 mg/dL 8.4-10.2 pggl=972) EGFR (BEAKER) (test 13 mL/min/1.73 sq m ESTIMATED GFR IS NOT fmwc=1772) ACCURATE CREATININE CLEARANCE IN PREDICTING GLOMERULAR FILTRATION RATE. ESTIMATED GFR IS NOT APPLICABLE FOR DIALYSIS PATIENTS. [id number] 07:39:00 Test Item Value Reference Range Comments PHOSPHORUS (BEAKER) (test tkse=091) 3.0 mg/dL 2.3-4.7 [id number] 07:39:00 Test Item Value Reference Range Comments MAGNESIUM (BEAKER) (test qmhz=228) 1.9 mg/dL 1.6-2.6 LACTIC ACID, VENOUS, WHOLE [id number] 07:34:00 Test Item Value Reference Range Comments LACTATE BLOOD VENOUS (2) (BEAKER) (test 0.8 mmol/L 0.5-2.2 volq=7305) CALCIUM, [id number] 07:28:00 Test Item Value Reference Range Comments CALCIUM IONIZED (BEAKER) (test frsu=944) 1.13 mmol/L 1.12-1.27 PH, BLOOD (BEAKER) (test aufa=1977) 7.36 CBC W/PLT COUNT & AUTO [id number] 07:28:00 Test Item Value Reference Range Comments WHITE BLOOD CELL COUNT (BEAKER) (test yxrk=343) 19.0 K/ L 3.5-10.5 RED BLOOD CELL COUNT (BEAKER) (test fjyu=920) 2.89 M/ L 3.93-5.22 HEMOGLOBIN (BEAKER) (test tife=315) 8.3 GM/DL 11.2-15.7 HEMATOCRIT (BEAKER) (test vlcb=619) 26.8 % 34.1-44.9 MEAN CORPUSCULAR VOLUME (BEAKER) (test mwuk=192) 92.7 fL 79.4-94.8 MEAN CORPUSCULAR HEMOGLOBIN (BEAKER) (test 28.7 pg 25.6-32.2 nxga=182) MEAN CORPUSCULAR HEMOGLOBIN CONC (BEAKER) (test 31.0 GM/DL 32.2-35.5 nifc=858) RED CELL DISTRIBUTION WIDTH (BEAKER) (test 15.1 % 11.7-14.4 wwav=438) PLATELET COUNT (BEAKER) (test httr=022) 101 K/CU MM 150-450 MEAN PLATELET VOLUME (BEAKER) (test qwru=875) 10.7 fL 9.4-12.3 NUCLEATED RED BLOOD CELLS (BEAKER) (test 0 /100 WBC 0-0 genl=314) NEUTROPHILS RELATIVE PERCENT (BEAKER) (test 88 % rqwt=986) LYMPHOCYTES RELATIVE PERCENT (BEAKER) (test 3 % zvjv=190) MONOCYTES RELATIVE PERCENT (BEAKER) (test 6 % yshb=374) EOSINOPHILS RELATIVE PERCENT (BEAKER) (test 2 % wufy=088) BASOPHILS RELATIVE PERCENT (BEAKER) (test 0 % fmxg=095) NEUTROPHILS ABSOLUTE COUNT (BEAKER) (test 16.67 K/ L 1.56-6.13 tjds=014) LYMPHOCYTES ABSOLUTE COUNT (BEAKER) (test 0.59 K/ L 1.18-3.74 rxbq=152) MONOCYTES ABSOLUTE COUNT (BEAKER) (test 1.07 K/ L 0.24-0.36 kyyq=853) EOSINOPHILS ABSOLUTE COUNT (BEAKER) (test 0.36 K/ L 0.04-0.36 dcig=607) BASOPHILS ABSOLUTE COUNT (BEAKER) (test 0.07 K/ L 0.01-0.08 jxct=267) IMMATURE GRANULOCYTES-RELATIVE PERCENT (BEAKER) 1 % 0-1 (test ocho=4725) BASIC METABOLIC [id number] 02:11:00 Test Item Value Reference Range Comments SODIUM (BEAKER) (test 136 meq/L 136-145 fsjw=537) POTASSIUM (BEAKER) (test 3.3 meq/L 3.5-5.1 tqld=164) CHLORIDE (BEAKER) (test 101 meq/L 98-107 dtzp=502) CO2 (BEAKER) (test 25 meq/L 22-29 wbon=733) BLOOD UREA NITROGEN 34 mg/dL 7-21 (BEAKER) (test sfrx=392) CREATININE (BEAKER) (test 5.32 mg/dL 0.57-1.25 fppr=400) GLUCOSE RANDOM (BEAKER) 164 mg/dL 70-105 (test bndc=670) CALCIUM (BEAKER) (test 9.4 mg/dL 8.4-10.2 mrgk=352) EGFR (BEAKER) (test 10 mL/min/1.73 sq m ESTIMATED GFR IS NOT vxxu=8607) ACCURATE CREATININE CLEARANCE IN PREDICTING GLOMERULAR FILTRATION RATE. ESTIMATED GFR IS NOT APPLICABLE FOR DIALYSIS PATIENTS. [id number] 02:07:00 Test Item Value Reference Range Comments PHOSPHORUS (BEAKER) (test xsqo=821) 2.7 mg/dL 2.3-4.7 [id number] 02:07:00 Test Item Value Reference Range Comments MAGNESIUM (BEAKER) (test owfq=937) 1.8 mg/dL 1.6-2.6 CALCIUM, [id number] 01:51:00 Test Item Value Reference Range Comments CALCIUM IONIZED (BEAKER) (test cyld=255) 1.18 mmol/L 1.12-1.27 PH, BLOOD (BEAKER) (test uspp=3773) 7.35 POCT-GLUCOSE [id number] 00:30:00 Test Item Value Reference Range Comments POC-GLUCOSE METER (BEAKER) 248 mg/dL 70-[address] [facility] [address] [facility] (test jmlf=9053) [facility] [address] TROPONIN [id number] 23:27:00 Test Item Value Reference Range Comments TROPONIN I (BEAKER) (test lwel=557) 0.60 ng/mL 0.00-0.03 Troponin I (TnI) levels [...] disease, and persistent tachyarrhythmia.LACTIC ACID, VENOUS, WHOLE [id number] 23:13:00 Test Item Value Reference Range Comments LACTATE BLOOD VENOUS (2) (FARRAH) (test 1.3 mmol/L 0.5-2.2 tzks=0341) U/S, ABDOMINAL, [id number] 20:30:00Reason for exam:->Septic Shock, ESRD, Dysuria, Abdominal [...] suggestive of chronic kidney disease Signed: Higinio Palmerort Verified Date/Time: 11/22/2018 20:30: 54 Reading Location: [facility] Neuro Reading Room LACTIC ACID, VENOUS, WHOLE [id number] 18:54:00 Test Item Value Reference Range Comments LACTATE BLOOD VENOUS (2) (BEAKER) (test 1.5 mmol/L 0.5-2.2 dccr=2168) [id number] 17:26:00 Test Item Value Reference Range Comments PROCALCITONIN (BEAKER) (test qkif=4962) > ng/mL <0.05 SEPSIS RISK (ng/mL)Low: 0.05-0.50Intermediate: 0.51-2.00High: & gt;=2.01TSH/FREE T4 IF [id number] 17:10:00 Test Item Value Reference Range Comments THYROID STIMULATING HORMONE (BEAKER) (test 2.43 uIU/mL 0.35-4.94 xsbm=354) RAD, CHEST, 1 VIEW, NON [id number] 17:04:00Reason for exam:->Respiratory Insufficiency, Septic ShockShould this [...] Verified Date/Time: 11/22/2018 17:04 :54 Reading Location: [address] Reading Room (CELLAVISION MANUAL DIFF) 2018-11-22 16:57:00 Test Item Value Reference Range Comments NEUTROPHILS - REL (CELLAVISION)(BEAKER) (test 85 % swmv=4814) LYMPHOCYTES - REL (CELLAVISION)(BEAKER) (test 5 % xcqh=4618) MONOCYTES - REL (CELLAVISION)(BEAKER) (test 4 % aqrc=0979) BANDS - REL (CELLAVISION)(BEAKER) (test 6 % 0-10 waoz=3132) NEUTROPHILS - ABS (CELLAVISION)(BEAKER) (test 22.87 K/ul 1.56-6.13 nofk=4749) LYMPHOCYTES - ABS (CELLAVISION)(BEAKER) (test 1.35 K/ul 1.18-3.74 djng=9373) MONOCYTES - ABS (CELLAVISION)(BEAKER) (test 1.08 K/uL 0.24-0.36 hzkr=3313) BANDS - ABS (CELLAVISION)(BEAKER) (test 1.61 K/uL 0.00-0.80 cfbq=9304) TOTAL COUNTED (BEAKER) (test yqiv=3978) 100 WBC MORPHOLOGY (BEAKER) (test njpf=025) Normal PLT MORPHOLOGY (BEAKER) (test ssas=611) Normal POLYCHROMATOPHILLIC RBCS(BEAKER) (test jeoq=490) 3+ many ANISOCYTOSIS (BEAKER) (test jmxd=734) 1+ few MICROCYTES (BEAKER) (test alyb=800) 1+ few POIKILOCYTES (BEAKER) (test fbvb=292) 2+ moderate TEAR DROP CELLS (BEAKER) (test xiov=929) 1+ few JOVANNI CELLS (BEAKER) (test cohi=021) 1+ few ARTIFACT (CELLAVISION)(BEAKER) (test xbbv=8555) Present HELMET CELLS (CELLAVISION)(BEAKER) (test 1+ few jpjc=0282) PLATELET CONCENTRATION (CELLAVISION)(BEAKER) Adequate (test mxib=7929) Received comment: User comments: Slide comments:TROPONIN [id number] 16:52:00 Test Item Value Reference Range Comments TROPONIN I (BEAKER) (test vfit=617) 0.85 ng/mL 0.00-0.03 Troponin I (TnI) levels [...] acidosis, acute neurological disease, and persistent tachyarrhythmia.PROTHROMBIN TIME/[id number] 16:52:00 Test Item Value Reference Range Comments PROTIME (BEAKER) (test jhmz=792) 16.1 seconds 11.7-14.7 INR (BEAKER) (test gnbr=480) 1.3 <=5.9 RECOMMENDED COUMADIN/WARFARIN INR THERAPY RANGESSTANDARD DOSE: 2.0 - 3.0 Includes: PROPHYLAXIS forvenous thrombosis, systemic embolization; TREATMENT for venous thrombosis and/or pulmonary embolus.HIGH RISK: Target INR is 2.5-3.5 for patients with mechanical heart valves.B-TYPE NATRIURETIC FACTOR (BNP)2018-10 16:48:00 Test Item Value Reference Range Comments B-TYPE NATRIURETIC PEPTIDE (BEAKER) (test 353 pg/mL 0-100 bhpv=997) BASIC METABOLIC [id number] 16:48:00 Test Item Value Reference Range Comments SODIUM (BEAKER) (test 136 meq/L 136-145 jzgj=033) POTASSIUM (BEAKER) (test 2.9 meq/L 3.5-5.1 juab=399) CHLORIDE (BEAKER) (test 98 meq/L 98-107 djzm=333) CO2 (BEAKER) (test 24 meq/L 22-29 dkjs=273) BLOOD UREA NITROGEN 47 mg/dL 7-21 (BEAKER) (test kvjf=757) CREATININE (BEAKER) (test 8.07 mg/dL 0.57-1.25 nmzz=284) GLUCOSE RANDOM (BEAKER) 207 mg/dL 70-105 (test dbft=658) CALCIUM (BEAKER) (test 9.5 mg/dL 8.4-10.2 rdkm=550) EGFR (BEAKER) (test 6 mL/min/1.73 sq m ESTIMATED GFR IS NOT rhrg=3214) ACCURATE CREATININE CLEARANCE IN PREDICTING GLOMERULAR FILTRATION RATE. ESTIMATED GFR IS NOT APPLICABLE FOR DIALYSIS PATIENTS. BLOOD GAS, [id number] 16:44:00 Test Item Value Reference Range Comments PH ARTERIAL (BEAKER) (test vyyt=725) 7.37 7.35-7.45 PCO2 ARTERIAL (BEAKER) (test scmv=509) 42 mmHg 35-45 PO2 ARTERIAL (BEAKER) (test pmzs=025) 123 mmHg 80-90 O2 SATURATION ARTERIAL (BEAKER) (test bkxn=541) 98.3 % 96.0-97.0 HCO3 ARTERIAL (BEAKER) (test aizb=645) 24 mmol/L 21-29 BASE EXCESS ARTERIAL (BEAKER) (test deuv=520) -1.7 mmol/L -2.0-3.0 PATIENT TEMPERATURE (BEAKER) (test mady=6295) 37.0 C FIO2 (BEAKER) (test daby=4849) 28.0 % [id number] 16:44:00 Test Item Value Reference Range Comments PHOSPHORUS (BEAKER) (test tjir=244) 4.1 mg/dL 2.3-4.7 [id number] 16:44:00 Test Item Value Reference Range Comments MAGNESIUM (BEAKER) (test uqyt=082) 1.9 mg/dL 1.6-2.6 HEPATIC FUNCTION [id number] 16:44:00 Test Item Value Reference Range Comments TOTAL PROTEIN (BEAKER) (test iwxd=863) 6.9 gm/dL 6.0-8.3 ALBUMIN (BEAKER) (test oruf=7856) 3.5 g/dL 3.5-5.0 BILIRUBIN TOTAL (BEAKER) (test vsut=663) 0.9 mg/dL 0.2-1.2 BILIRUBIN DIRECT (BEAKER) (test vdtn=616) 0.6 mg/dL 0.1-0.5 ALKALINE PHOSPHATASE (BEAKER) (test ngvf=854) 245 U/L 40-150 AST (SGOT) (BEAKER) (test rtnx=095) 51 U/L 5-34 ALT (SGPT) (BEAKER) (test wtsf=237) 18 U/L 6-55 VANCOMYCIN LEVEL, [id number] 16:41:00 Test Item Value Reference Range Comments VANCOMYCIN RANDOM (BEAKER) (test qiqa=867) 18.3 ug/mL Reference Range: No NormalsOXYGEN SATURATION, [id number] 16:40:00 Test Item Value Reference Range Comments O2 SATURATION (MEASURED) (BEAKER) (test bisq=2053) 62.7 % If patient has internal jugular ( IJ) or subclavian central line or PICC line. Draw from distal port. Label as central venous oxygen.LACTIC ACID, VENOUS, WHOLE [id number] 16:38:00 Test Item Value Reference Range Comments LACTATE BLOOD VENOUS (2) (BEAKER) (test 1.2 mmol/L 0.5-2.2 kliy=7892) CBC W/PLT COUNT & AUTO [id number] 16:35:00 Test Item Value Reference Range Comments WHITE BLOOD CELL COUNT (BEAKER) (test oxpw=043) 26.9 K/ L 3.5-10.5 RED BLOOD CELL COUNT (BEAKER) (test mskg=450) 3.17 M/ L 3.93-5.22 HEMOGLOBIN (BEAKER) (test muel=736) 8.8 GM/DL 11.2-15.7 HEMATOCRIT (BEAKER) (test gvcm=829) 29.6 % 34.1-44.9 MEAN CORPUSCULAR VOLUME (BEAKER) (test deah=675) 93.4 fL 79.4-94.8 MEAN CORPUSCULAR HEMOGLOBIN (BEAKER) (test 27.8 pg 25.6-32.2 bstw=049) MEAN CORPUSCULAR HEMOGLOBIN CONC (BEAKER) (test 29.7 GM/DL 32.2-35.5 xiti=864) RED CELL DISTRIBUTION WIDTH (BEAKER) (test 15.3 % 11.7-14.4 lchn=741) PLATELET COUNT (BEAKER) (test bluq=191) 149 K/CU MM 150-450 MEAN PLATELET VOLUME (BEAKER) (test gedn=960) 10.6 fL 9.4-12.3 NUCLEATED RED BLOOD CELLS (BEAKER) (test 0 /100 WBC 0-0 plzq=810) NEUTROPHILS RELATIVE PERCENT (BEAKER) (test 88 % bvuk=812) LYMPHOCYTES RELATIVE PERCENT (BEAKER) (test 4 % berp=053) MONOCYTES RELATIVE PERCENT (BEAKER) (test 6 % jlel=264) EOSINOPHILS RELATIVE PERCENT (BEAKER) (test 1 % ipry=022) BASOPHILS RELATIVE PERCENT (BEAKER) (test 0 % zpik=933) NEUTROPHILS ABSOLUTE COUNT (BEAKER) (test 23.68 K/ L 1.56-6.13 qrlk=389) LYMPHOCYTES ABSOLUTE COUNT (BEAKER) (test 0.94 K/ L 1.18-3.74 hnwx=259) MONOCYTES ABSOLUTE COUNT (BEAKER) (test 1.53 K/ L 0.24-0.36 fkwj=678) EOSINOPHILS ABSOLUTE COUNT (BEAKER) (test 0.32 K/ L 0.04-0.36 xhnr=567) BASOPHILS ABSOLUTE COUNT (BEAKER) (test 0.08 K/ L 0.01-0.08 hrwx=995) IMMATURE GRANULOCYTES-RELATIVE PERCENT (BEAKER) 1 % 0-1 (test [id number]=[id number]) HEP B SURFACE [id number] 15:58:00 Test Item Value Reference Range Comments [...] Negative (qualifier Negative value) CBC WITH AUTO [id number] 07:16:00 Test Item Value Reference Range Comments [...] 1.0-3.0 IG% (test code=IG%) 1.4 % 0.0-0.4 [id number] 07:13:00 Test Item Value Reference Range Comments [...] management of chronic kidney failure. TYPE & [id number] 15:35:00 Test Item Value Reference Range Comments ABO Blood Type (test code=ABO) A Rh (test code=RH) Negative Antibody Screen (test code=ABSCR) Negative Negative ARMBAND# (test code=ARMBAND) FF 84 337 [id number] 13:49:00 Test Item Value Reference Range Comments [...] management of chronic kidney failure. er4PT AND [id number] 14:13:00 Test Item Value Reference Range Comments Protime (test code=PT) 9.8 seconds 9.0-11.9 INR (test code=INR) 1.0 0.9-1.1 INR results are intended ONLY to monitor Oral Anticoagulant therapy in stablized patients. The INR Therapeutic Range is 2.0 - 3.0 Patients with a mechanical heart, the INR Range is 2.5 - 3.5 [id number] 14:13:00 Test Item Value Reference Range Comments aPTT (test code=PTT) 28.2 seconds 23.0-33.0 CBC WITH AUTO [id number] 13:39:00 Test Item Value Reference Range Comments [...] IG% (test code=IG%) 1.7 % 0.0-0.4 AUTO [id number] 13:25:00 Test Item Value Reference Range Comments [...] management of chronic kidney failure. TYPE & [id number] 12:40:00 Test Item Value Reference Range Comments ABO Blood Type (test code=ABO) A Rh (test code=RH) Negative Antibody Screen (test code=ABSCR) Negative Negative ARMBAND# (test code=ARMBAND) FF 12 500 [id number] 06:38:00 Test Item Value Reference Range Comments [...] of chronic kidney failure. CBC WITH AUTO [id number] 06:35:00 Test Item Value Reference Range Comments [...] (test code=IG%) 0.4 % 0.0-0.4 CBC AUTO [id number] 06:33:00 Test Item Value Reference Range Comments aPTT (test code=PTT) 29.4 seconds 23.0-33.0 PT AND [id number] 06:33:00 Test Item Value Reference Range Comments Protime (test code=PT) 10.1 seconds 9.0-11.9 INR (test code=INR) 1.0 0.9-1.1 INR results are intended ONLY to monitor Oral Anticoagulant therapy in stablized patients. The INR Therapeutic Range is 2.0 - 3.0 Patients with a mechanical heart, the INR Range is 2.5 - 3.5 [id number] 10:05:00 Test Item Value Reference Range Comments [...] PLATELET CLUMPING. THIS IS A HEMOGRAM ONLYRBC, [id number] 03:00:00 Test Item Value Reference Range Comments RBC Unit (test code=RBCUNIT) Released for Transfusion RBC, [id number] 03:00:00 Test Item Value Reference Range Comments RBC Unit (test code=RBCUNIT) Released for Transfusion CROSSMATCH x 12:53:00Completed: Compatible Ready to TransfuseTYPE & amp; [id number] 12:52:00 Test Item Value Reference Range Comments ABO Blood Type (test code=ABO) A Rh (test code=RH) Negative Antibody Screen (test code=ABSCR) Negative Negative ARMBAND# (test code=ARMBAND) FF 12 500 HEP B SURFACE [id number] 07:50:00 Test Item Value Reference Range Comments [...] Negative (qualifier Negative value) CBC WITH AUTO [id number] 07:17:00 Test Item Value Reference Range Comments [...] called to Gary DIAZ RN. K3 by [id number] on 08/10/2017 07:16 AM. Results were readback by Claudine DE LA CRUZ RN..[id number] 07:17:00 Test Item Value Reference Range Comments [...] assessment and management of chronic kidney failure. [id number] 19:07:00 Test Item Value Reference Range Comments aPTT (test code=PTT) 29.9 seconds 23.0-33.0 PT AND [id number] 19:07:00 Test Item Value Reference Range Comments Protime (test code=PT) 10.1 seconds 9.0-11.9 INR (test code=INR) 1.0 0.9-1.1 INR results are intended ONLY to monitor Oral Anticoagulant therapy in stablized patients. The INR Therapeutic Range is 2.0 - 3.0 Patients with a mechanical heart, the INR Range is 2.5 - 3.5 [id number] 18:35:00 Test Item Value Reference Range Comments [...] of chronic kidney failure. CBC WITH AUTO [id number] 18:19:00 Test Item Value Reference Range Comments [...] IG% (test code=IG%) 0.4 % 0.0-0.4 AUTO [id number] 17:15:00 Test Item Value Reference Range Comments [...] (test code=BGCTHB) 8.3 gm/dl 11.5-17.4 O2Hb (test code=ERIG8KA) 94.9 % 95.0-99.0 COHb (test code=BGFCOHB) <2.8 [...] Notified (test code=BGTMNOTIFIED) 15:59 O2 Device (test code=MJA9AUT7) Room Air Instrument ID (test code=BGINSTRID) [id number] Reported By (test code=BGREPORTEDBY) ROSALINO HUFF [id number] 09:50:00 Test Item Value Reference Range Comments [...] values were called to Tracy AGARWAL by [id number] on 08/07/2017 09:41 AM. Results were read back by Tracy AGARWAL.CULTURE, [id number] 07:53:00Specimen : AbscessCollected: 07/26/2017 20:47 Status: Final [...] 09:58: Culture Result (Prelim) (Prelim) Many DiptheroidsCULTURE, [id number] 06:50:00To start 15mins after 1st cultureSpecimen: BloodCollected: 07/24/2017 00:38 Status: Final Last Updated: 07/29/2017 06: 49 (1) To start 15mins after 1st culture Culture Result (Final) (Final ) No Growth After 5 DaysCULTURE, [id number] 06:50:00Specimen: BloodCollected: 07/24/2017 00:18 Status: Final Last Updated: 07/29/2017 06: 49 Culture Result (Final) (Final) No Growth After 5 DaysED RAPID [id number] 04:24:00 Test Item Value Reference Range Comments CKMB (BIOSITE) (test code=BIOCKMB) <1.0 ng/ml 0.0-2.5 TROPONIN-I (BIOSITE) (test code=BIOTROP) <0.050 ng/ml 0.000-0.050 MYOGLOBIN (BIOSITE) (test code=BIOMYO) 166.0 ng/ml 0.0-170.0 SERIAL INSTRUMENT NUMBER (test code=SERIAL) [id number] ED RAPID [id number] 01:05:00 Test Item Value Reference Range Comments CKMB (BIOSITE) (test code=BIOCKMB) <1.0 ng/ml 0.0-2.5 TROPONIN-I (BIOSITE) (test code=BIOTROP) <0.050 ng/ml 0.000-0.050 MYOGLOBIN (BIOSITE) (test code=BIOMYO) 203.0 ng/ml 0.0-170.0 SERIAL INSTRUMENT NUMBER (test code=SERIAL) [id number] 01:02:00 Test Item Value Reference Range Comments [...] chronic kidney failure. ER 8CBC WITH AUTO [id number] 00:58:00 Test Item Value Reference Range Comments [...] IG% (test code=IG%) 0.5 % 0.0-0.4 ER [id number] 13:31:00 Test Item Value Reference Range Comments [...] of chronic kidney failure. CBC WITH AUTO [id number] 13:08:00 Test Item Value Reference Range Comments [...] 0 /100WBC 0-2 code=NRBC_AUTO) HEP B SURFACE [id number] 15:00:00 Test Item Value Reference Range Comments [...] to HBV infection. HEPATITIS B CORE AB, [id number] 10:03:00 Test Item Value Reference Range Comments HEPATITIS B CORE AB TOTAL (test code=HEPBCORE) 2.97 Negative [id number] 09:16:00 Test Item Value Reference Range Comments [...] management of chronic kidney failure. ERYTHROCYTE SED [id number] 09:16:00 Test Item Value Reference Range Comments [...] 50-999 years old=0-25 mm/hr CBC WITH AUTO [id number] 08:46:00 Test Item Value Reference Range Comments [...] IG% (test code=IG%) 0.7 % 0.0-0.4 LIPASE, [id number] 18:05:00 Test Item Value Reference Range Comments Lipase (test code=LIPA) 42 U/L 8-223 AMYLASE, [id number] 18:05:00 Test Item Value Reference Range Comments Amylase (test code=AMYL) 53 U/L 12-103 C-REACTIVE [id number] 17:24:00 Test Item Value Reference Range Comments C REACTIVE PROTEIN (test code=CRP) 0.7 ng/ml 0.0-0.9 [id number] 09:07:00 Test Item Value Reference Range Comments [...] of chronic kidney failure. CBC WITH AUTO [id number] 08:35:00 Test Item Value Reference Range Comments [...] % 0.0-0.4 CBC AUTO diffCBC WITH AUTO [id number] 05:58:00 Test Item Value Reference Range Comments [...] 1.0-3.0 IG% (test code=IG%) 0.8 % 0.0-0.4 [id number] 05:41:00 Test Item Value Reference Range Comments [...] assessment and management of chronic kidney failure. [id number] 05:41:00 Test Item Value Reference Range Comments Magnesium (test code=MG) 2.0 mg/dl 1.6-2.3 HEP B SURFACE [id number] 08:16:00 Test Item Value Reference Range Comments [...] (test code=HBSAG) Negative (qualifier Negative value) GLYCOSALATED [id number] 01:37:00 Test Item Value Reference Range Comments [...] ARE NOT INTERCHANGEABLE BETWEEN METHODS. 12-06-2006 FREE [id number] 01:14:00 Test Item Value Reference Range Comments Free T4 (test code=FT4) 1.24 ng/dl 0.78-2.19 CORONARY [id number] 00:54:00 Test Item Value Reference Range Comments [...] Average vLDL (test code=VLDL) 29 mg/dl 20-50 [id number] 00:52:00 Test Item Value Reference Range Comments Magnesium (test code=MG) 2.0 mg/dl 1.6-2.3 [id number] 00:52:00 Test Item Value Reference Range Comments [...]
--- NOTE | 2019-08-08 21:05 | RAD REPORT ---
EXAM DESCRIPTION: [facility] Single View08/08/2019 8:50 pm CLINICAL HISTORY: sob COMPARISON: March 2019 FINDINGS: Zbyv-ok-tqrzncov bilateral pulmonary opacities may represent pulmonary edema. The heart is mildly enlarged.
--- NOTE | 2019-08-08 21:37 | ER ---
Nurse's Notes [facility] Name: Alysa Mayes Age: 64 yrs Sex: Female : 1955 Arrival Date: 08/08/2019 Time: 19:55 Bed 23 Private MD: Diagnosis: Pulmonary edema;Hypertensive chronic kidney disease with stage 5 chronic kidney disease or end stage renal disease;Hyperkalemia;Hypoxemia Presentation: 08/08 20:17 Presenting complaint: Patient states: Shortness of breath x 2 days. Pt is on dialysis ca1 scheduled MWF. Last dialysis was on Wednesday. Son reports pt did not have a dialysis on Wednesday (yesterday) because fistula is clogged. Pt also c/o chest pain started an hour ago that is described as sharp and non-radiating. Transition of care: patient was not received from another setting of care. Onset of symptoms was August 08, 2019. Risk Assessment: Do you want to hurt yourself or someone else? Patient reports no desire to harm self or others. Initial Sepsis Screen: Does the patient meet any 2 criteria? RR > 20 per min. HR > 90 bpm. Yes Does the patient have a suspected source of infection? No. Patient's initial sepsis screen is negative. Care prior to arrival: None. 20:17 Method Of Arrival: Wheelchair ca1 20:17 Acuity: LESLEE 3 ca1 Triage Assessment: 20:22 General: Appears in no apparent distress. comfortable, Behavior is calm, cooperative, ca1 appropriate for age. Pain: Complains of pain in chest and abdomen Pain does not radiate. Pain currently is 9 out of 10 on a pain scale. Quality of pain is described as sharp, Pain began 1 hour ago. Respiratory: Reports shortness of breath on exertion Onset: The symptoms/episode began/occurred yesterday, the patient has mild shortness of breath. Historical: - Allergies: 20:22 amlodipine; ca1 20:22 Amoxicillin; ca1 20:22 PENICILLINS; ca1 - PMHx: 20:22 Anemia; CHF; COPD; Depression; Diabetes - NIDDM; Dialysis; Gout; Hyperlipidemia; ca1 Hypertension; Hypothyroidism; pressure ulcers; - PSHx: 20:22 None; ca1 - Immunization history:: Adult Immunizations up to date. - Social history:: Smoking status: Patient/guardian denies using tobacco. - Ebola Screening: : Patient negative for fever greater than or equal to 101.5 degrees Fahrenheit, and additional compatible Ebola Virus Disease symptoms Patient denies exposure to infectious person Patient denies travel to an Ebola-affected area in the 21 days before illness onset No symptoms or risks identified at this time. Screenin:24 Abuse screen: Denies threats or abuse. Denies injuries from another. Nutritional ca1 screening: On renal diet. Tuberculosis screening: No symptoms or risk factors identified. Fall Risk IV access (20 points). Ambulatory Aid- Crutches/Cane/Walker (15 pts). Gait- Weak (10 pts.). Assessment: 20:24 General: Appears in no apparent distress. comfortable, Behavior is calm, cooperative, ca1 appropriate for age. Pain: Complains of pain in chest and abdomen Pain currently is 9 out of 10 on a pain scale. Quality of pain is described as sharp, Pain began 1 hour ago. Neuro: Level of Consciousness is awake, alert, obeys commands, Oriented to person, place, time, situation. Cardiovascular: Heart tones S1 S2 present Capillary refill < 3 seconds Patient's skin is warm and dry. Pulses are all present. Rhythm is sinus tachycardia Dialysis shunt: in the left arm, with palpable thrill, with auscultated bruit. Respiratory: Reports shortness of breath on exertion since 2 days ago Airway is patent Respiratory effort is even, unlabored, Respiratory pattern is regular, symmetrical, Breath sounds are clear bilaterally. GI: Abdomen is round non-distended, Bowel sounds present X 4 quads. Abd is soft and non tender X 4 quads. : : No signs and/or symptoms were reported regarding the genitourinary system. EENT: No deficits noted. No signs and/or symptoms were reported regarding the EENT system. Derm: Skin is intact, is healthy with good turgor, Skin is pink, warm \T\ dry. Musculoskeletal: Circulation, motion, and sensation intact. Capillary refill < 3 seconds, Range of motion: intact in all extremities. 21:14 Reassessment: Patient appears in no apparent distress at this time. Patient and/or ca1 family updated on plan of care and expected duration. Pain level reassessed. Patient is alert, oriented x 3, equal unlabored respirations, skin warm/dry/pink. 21:23 Reassessment: IV inserted but unable to draw blood. ground water technician attempted to draw blood ca1 but was unsuccessful. Notified provider and CN. CN at bedside to do US guided IV. 22:26 Reassessment: Critical Lab: D-Dimer 1743. Notified Provider. ca1 22:26 Reassessment: Patient appears in no apparent distress at this time. Patient and/or ca1 family updated on plan of care and expected duration. Pain level reassessed. Patient is alert, oriented x 3, equal unlabored respirations, skin warm/dry/pink. 23:48 Reassessment: Patient appears in no apparent distress at this time. Patient and/or ca1 family updated on plan of care and expected duration. Pain level reassessed. Patient is alert, oriented x 3, equal unlabored respirations, skin warm/dry/pink. 08/09 00:42 Reassessment: pt appears to be sleeping, eyes closed, resp unlabored, no signs of bb discomfort noted, family at bedside. 01:40 Reassessment: pt appears to be sleeping, eyes closed, resp unlabored, arouses easily bb and follows orders, IV site intact, with no erythema or edema noted, family at bedside. Awaiting transfer to [facility] for higher level of care. 01:51 Reassessment: report called to Radha Burr RN for [facility] room 8B [address]. 02:14 Reassessment: EMS at bedside for transfer of pt to [facility], pt is A\T\O x 2, bb resp unlabored, IV site intact with no erythema or edema noted, family at bedside. 02:17 Reassessment: pt's walker with pt sticker attached sent to Security. bb Vital Signs: 08/08 20:22 BP 133 / 89; Pulse 114; Resp 21 S; Temp 99.2(O); Pulse Ox 93% on R/A; Weight 81.65 kg ca1 (R); Height 5 ft. 7 in. (170.18 cm) (R); 21:14 BP 159 / 112; Pulse 113; Resp 25; Pulse Ox 96% on 2 lpm NC; ca1 22:26 BP 129 / 77; Pulse 111; Resp 22 S; Pulse Ox 98% on 2 lpm NC; ca1 23:48 BP 148 / 59; Pulse 118; Resp 24 S; Temp 99.1(O); Pulse Ox 99% on 2 lpm NC; ca1 08/09 00:43 BP 123 / 75; Pulse 113; Resp 22; Pulse Ox 99% on 2 lpm NC; bb 01:39 BP 122 / 62; Pulse 108; Resp 20 S; Temp 99.9(O); Pulse Ox 100% on 3 lpm NC; bb 02:15 BP 113 / 54; Pulse 106; Resp 22 S; Pulse Ox 100% on 3 lpm NC; bb 08/08 20:22 Body Mass Index 28.19 (81.65 kg, 170.18 cm) ca1 ED Course: 08/08 19:55 Patient arrived in ED. cf2 20:05 Cathy Solares, TIM is Primary Nurse. ca1 20:18 Julian Mendiola MD is Attending Physician. tw4 20:20 Triage completed. ca1 20:24 Arm band placed on right wrist. EKG completed in triage. Results shown to MD. ca1 20:24 Patient has correct armband on for positive identification. Placed in gown. Bed in low ca1 position. Call light in reach. Side rails up X2. phototypesetting equipment monitor on. Pulse ox on. NIBP on. Warm blanket given. 20:24 No provider procedures requiring assistance completed. ca1 20:41 Inserted saline lock: 22 gauge in right antecubital area, using aseptic technique. ca1 20:50 CXR XRAY In Process Unspecified. EDMS 21:30 Initial lab(s) drawn, by me, sent to lab. First set of blood cultures drawn by me. bb 21:36 Jose A Madrid MD is Hospitalizing Provider. tw4 08/09 01:44 Patient transferred, IV remains in place. bb Administered Medications: 08/08 22:50 Drug: D50W 50 ml Route: IVP; Site: right antecubital; ca1 08/09 02:16 Follow up: Response: No adverse reaction 08/08 22:50 Drug: Albuterol 2.5 mg Route: Inhalation; ca1 08/09 02:17 Follow up: Response: No adverse reaction 08/08 23:00 Drug: Insulin Regular Human 10 units {Co-Signature: aj1 (Peggy Fernandez RN).} Route: ca1 IVP; Site: right antecubital; 08/09 02:16 Follow up: Response: No adverse reaction 08/08 23:10 Drug: Calcium Chloride 10% 10 ml Route: IVP; Site: right antecubital; ca1 08/09 02:17 Follow up: Response: No adverse reaction bb 08/08 23:25 Drug: Sodium Bicarbonate 1 amp Route: IVP; Site: right antecubital; ca1 08/09 02:16 Follow up: Response: No adverse reaction bb 08/08 23:37 Not Given (Duplicate Order): Calcium Chloride 1 grams IVP once ca1 23:40 Drug: Kayexalate 60 grams Route: PO; ca1 08/09 02:17 Follow up: Response: No adverse reaction bb Outcome: 08/08 21:36 Decision to Hospitalize by Provider. [facility] 08/09 00:06 ER care complete, transfer ordered by . 01:43 Condition: stable bb 01:43 Instructed on the need for transfer. 02:15 Transferred by ground EMS to [facility], Transfer form bb completed. X-rays sent w/ patient. 02:25 Patient left the ED. bb Signatures: Dispatcher [employer] EDAngeles Mathew RN RN bb Julian Mendiola MD MD tw4 Cathy Solares RN RN ca1 Kevin Fournier cf2 Peggy Fernandez RN aj1 Corrections: (The following items were deleted from the chart) 08/08 20:23 20:17 Initial Sepsis Screen: Does the patient meet any 2 criteria? No. Patient's ca1 initial sepsis screen is negative. Does the patient have a suspected source of infection? No. Patient's initial sepsis screen is negative. ca1
--- NOTE | 2019-08-08 21:37 | EDPHYS ---
Physician Documentation [facility] Name: Alysa Mayes Age: 64 yrs Sex: Female : 1955 Arrival Date: 08/08/2019 Time: 19:55 Bed 23 Private MD: ED Physician Julian Mendiola HPI: 08/08 21:53 This 64 yrs old Black Female presents to ER via Wheelchair with complaints of Shortness tw4 Of Breath. 21:53 The patient has shortness of breath at rest. Onset: The symptoms/episode began/occurred tw4 today. Duration: The symptoms are continuous, and are unchanged since they started. The patient's shortness of breath has no apparent modifying factors. Associated signs and symptoms: The patient has no apparent associated signs or symptoms. Severity of symptoms: At their worst the symptoms were moderate in the emergency department the symptoms are unchanged. The patient has not experienced similar symptoms in the past. Historical: - Allergies: 20:22 amlodipine; ca1 20:22 Amoxicillin; ca1 20:22 PENICILLINS; ca1 - PMHx: 20:22 Anemia; CHF; COPD; Depression; Diabetes - NIDDM; Dialysis; Gout; Hyperlipidemia; ca1 Hypertension; Hypothyroidism; pressure ulcers; - PSHx: 20:22 None; ca1 - Immunization history:: Adult Immunizations up to date. - Social history:: Smoking status: Patient/guardian denies using tobacco. - Ebola Screening: : Patient negative for fever greater than or equal to 101.5 degrees Fahrenheit, and additional compatible Ebola Virus Disease symptoms Patient denies exposure to infectious person Patient denies travel to an Ebola-affected area in the 21 days before illness onset No symptoms or risks identified at this time. ROS: 21:53 Constitutional: Negative for fever, chills, and weight loss, Eyes: Negative for injury, tw4 pain, redness, and discharge, Cardiovascular: Negative for chest pain, palpitations, and edema. 21:53 Abdomen/GI: Negative for abdominal pain, nausea, vomiting, diarrhea, and constipation, Back: Negative for injury and pain, MS/Extremity: Negative for injury and deformity, Skin: Negative for injury, rash, and discoloration, Neuro: Negative for headache, weakness, numbness, tingling, and seizure. 21:53 Respiratory: Positive for dyspnea on exertion, shortness of breath, at rest. Negative for Exam: 21:50 Head/Face: Normocephalic, atraumatic. Chest/axilla: Normal chest wall appearance and tw4 motion. Nontender with no deformity. No lesions are appreciated. Cardiovascular: Regular rate and rhythm with a normal S1 and S2. No gallops, murmurs, or rubs. Normal PMI, no JVD. No pulse deficits. 21:50 Back: No spinal tenderness. No costovertebral tenderness. Full range of motion. MS/ Extremity: Pulses equal, no cyanosis. Neurovascular intact. Full, normal range of motion. Neuro: Awake and alert, GCS 15, oriented to person, place, time, and situation. Cranial nerves II-XII grossly intact. Motor strength 5/5 in all extremities. Sensory grossly intact. Cerebellar exam normal. Normal gait. 21:50 Constitutional: The patient appears in obvious distress, moderately distressed, pale, restless, uncomfortable. 08/09 00:02 Respiratory: mild respiratory distress is noted, Respirations: normal, Breath sounds: tw4 rales. Vital Signs: 08/08 20:22 BP 133 / 89; Pulse 114; Resp 21 S; Temp 99.2(O); Pulse Ox 93% on R/A; Weight 81.65 kg ca1 (R); Height 5 ft. 7 in. (170.18 cm) (R); 21:14 BP 159 / 112; Pulse 113; Resp 25; Pulse Ox 96% on 2 lpm NC; ca1 22:26 BP 129 / 77; Pulse 111; Resp 22 S; Pulse Ox 98% on 2 lpm NC; ca1 23:48 BP 148 / 59; Pulse 118; Resp 24 S; Temp 99.1(O); Pulse Ox 99% on 2 lpm NC; ca1 08/09 00:43 BP 123 / 75; Pulse 113; Resp 22; Pulse Ox 99% on 2 lpm NC; bb 01:39 BP 122 / 62; Pulse 108; Resp 20 S; Temp 99.9(O); Pulse Ox 100% on 3 lpm NC; bb 02:15 BP 113 / 54; Pulse 106; Resp 22 S; Pulse Ox 100% on 3 lpm NC; bb 08/08 20:22 Body Mass Index 28.19 (81.65 kg, 170.18 cm) ca1 MDM: 08/08 20:18 Patient medically screened. [facility] 21:55 Data reviewed: vital signs, nurses notes. Counseling: I had a detailed discussion with [facility] the patient and/or guardian regarding: the historical points, exam findings, and any diagnostic results supporting the discharge/admit diagnosis. 08/08 20:28 Order name: Blood Culture Adult (2) [facility] 08/08 20:28 Order name: BMP; Complete Time: 23:47 [facility] 08/08 20:28 Order name: CBC with Diff; Complete Time: 23:47 [facility] 08/08 20:28 Order name: Ckmb; Complete Time: 23:47 [facility] 08/08 20:28 Order name: CPK; Complete Time: 23:47 [facility] 08/08 20:28 Order name: D-Dimer; Complete Time: 23:47 [facility] 08/08 20:28 Order name: Hepatic Function; Complete Time: 23:47 [facility] 08/08 20:28 Order name: Lipase; Complete Time: 23:47 [facility] 08/08 20:28 Order name: Magnesium; Complete Time: 23:47 [facility] 08/08 20:28 Order name: NT PRO-BNP; Complete Time: 23:47 [facility] 08/08 20:28 Order name: PT-INR; Complete Time: 23:47 [facility] 08/08 20:28 Order name: Ptt, Activated; Complete Time: 23:47 [facility] 08/08 20:28 Order name: Troponin (emerg Dept Use Only); Complete Time: 23:47 [facility] 08/08 22:18 Order name: Manual Differential; Complete Time: 23:47 EDSD 08/08 20:28 Order name: EKG; Complete Time: 20:29 [facility] 08/08 20:28 Order name: Cardiac monitoring; Complete Time: 20:29 [facility] 08/08 20:28 Order name: EKG - Nurse/Tech; Complete Time: 20:29 [facility] 08/08 20:28 Order name: IV Saline Lock; Complete Time: 20:40 08/08 20:28 Order name: Labs collected and sent; Complete Time: 21:36 [facility] 08/08 20:28 Order name: O2 Per Protocol; Complete Time: 20:29 [facility] 08/08 20:28 Order name: CXR XRAY; Complete Time: 23:47 08/08 23:53 Order name: BMP 08/08 23:59 Order name: ABG em1 08/08 20:28 Order name: O2 Sat Monitoring; Complete Time: 20:29 tw4 EC:50 Rate is 76 beats/min. Rhythm is regular. QRS Creede is Normal. NV interval is normal. QRS tw4 interval is normal. QT interval is normal. No Q waves. T waves are Inverted in leads V5, V6. No ST changes noted. Clinical impression: Abnormal EKG without significant change. Interpreted by me. Reviewed by me. Administered Medications: 22:50 Drug: D50W 50 ml Route: IVP; Site: right antecubital; [facility] 08/09 02:16 Follow up: Response: No adverse reaction 08/08 22:50 Drug: Albuterol 2.5 mg Route: Inhalation; [facility] 08/09 02:17 Follow up: Response: No adverse reaction 08/08 23:00 Drug: Insulin Regular Human 10 units {Co-Signature: aj1 (Peggy Fernandez RN).} Route: ca1 IVP; Site: right antecubital; 08/09 02:16 Follow up: Response: No adverse reaction 08/08 23:10 Drug: Calcium Chloride 10% 10 ml Route: IVP; Site: right antecubital; [facility] 08/09 02:17 Follow up: Response: No adverse reaction 08/08 23:25 Drug: Sodium Bicarbonate 1 amp Route: IVP; Site: right antecubital; [facility] 08/09 02:16 Follow up: Response: No adverse reaction 08/08 23:37 Not Given (Duplicate Order): Calcium Chloride 1 grams IVP once ca1 23:40 Drug: Kayexalate 60 grams Route: PO; [facility] 08/09 02:17 Follow up: Response: No adverse reaction Disposition: 08/09/19 00:06 Transfer [facility]. Diagnosis are Pulmonary edema, Hypertensive chronic kidney disease with stage 5 chronic kidney disease or end stage renal disease, Hyperkalemia, Hypoxemia. - Reason for transfer: Higher level of care. - Accepting physician is Dr VALLADARES. - Condition is Stable. - Problem is new. - Symptoms have improved. Signatures: Dispatcher [employer] EDAngeles Mathew RN RN bb Wadley, Terrence, MD MD tw4 Cathy Solares RN RN ca1 Peggy Fernandez RN aj1 Corrections: (The following items were deleted from the chart) 08/08 22:49 21:36 Hospitalization Ordered by Jose A Madrid MD for Inpatient Admission. Preliminary tw4 diagnosis is Acute pulmonary edema; Hypoxemia. Bed requested for Telemetry/MedSurg (Inpatient). Status is Inpatient Admission. Condition is Stable. Problem is an ongoing problem. Symptoms have worsened. UTI on Admission? No. tw4 08/09 00:03 08/08 21:50 Respiratory: the patient does not display signs of respiratory distress, tw4 Respirations: normal, 4 08/09 00:04 08/08 22:49 08/08/2019 21:36 Hospitalization Ordered by Jose A Madrid MD for Inpatient tw4 Admission. Preliminary diagnosis is Acute pulmonary edema; Hypoxemia. Bed requested for Intensive Care Unit. Status is Inpatient Admission. Condition is Stable. Problem is an ongoing problem. Symptoms have worsened. UTI on Admission? No. tw4 08/09 02:25 00:06 08/09/2019 00:06 Transfer ordered to [facility]. Diagnosis is Pulmonary bb edema; Hypertensive chronic kidney disease with stage 5 chronic kidney disease or end stage renal disease; Hyperkalemia; Hypoxemia. Reason for transfer: Higher level of care. Accepting physician is Dr VALLADARES. Condition is Stable. Problem is new. Symptoms have improved. 4
[2019-08-08 21:48] LABS: Absolute Lymphocytes (CBC) 0.6 K/uL (0.7-4.9); Basophils % 0.5 % (0-1.3); Hematocrit 39.5 % (36.0-45.0); Lymphocytes % 5.3 % (15.3-44.8); MPV 9.4 fL (7.6-11.3); RBC Red Blood Cell Count 4.14 M/uL (3.86-4.86)
[2019-08-08 21:55] LABS: Protime INR 1.15
[2019-08-08 22:42] LABS: ALT/SGPT 29 U/L (12-78); AST/SGOT 21 U/L (15-37); Alkaline Phosphatase 170 U/L (45-117); BUN Blood Urea Nitrogen 148 mg/dL (7-18); Bicarbonate 17 mmol/L (21-32); Bilirubin Direct 0.1 mg/dL (0-0.2); Bilirubin Total 0.4 mg/dL (0.2-1.0); CKMB Creatine Kinase MB 2.8 ng/mL (0.3-3.6); Creatine Phosphokinase 135 U/L (26-192); Glucose Level 151 mg/dL (74-106); Lipase 151 U/L (73-393); Magnesium 2.6 mg/dL (1.8-2.4); NT PRO-BNP 21222 pg/mL (<125); Protein, Total 8.4 g/dL (6.4-8.2); Sodium Level 140 mmol/L (136-145); Troponin (Emerg Dept Use Only) < 0.02 ng/mL (0.0-0.045)
[2019-08-08 22:43] LABS: Potassium 7.8 mmol/L (3.5-5.1)
[2019-08-08] MEDS ORDERED: INSULIN -REGULAR HUMAN 50 UNIT/0.5 ML ML ONE (22:51)
[2019-08-08] MEDS ORDERED: ALBUTEROL 2.5 MG/3 ML NEB SOL ONE (22:51)
[2019-08-08] MEDS ORDERED: D50W 25 GM/50 ML SYRINGE IV ONE (22:52)
[2019-08-08] MEDS ORDERED: SOD POLYSTYREN SUL 15 GM/60 ML UCUP ONE (22:52)
[2019-08-08] MEDS ORDERED: CALCIUM GLUCONATE 1 GM IVPB 1 GM/50 ML BAG IV ONE (22:58)
[2019-08-08 23:32] LABS: Blood Morphology Comment NOT SEEN (NOT SEEN); Platelet Estimate ADEQ
[2019-08-09 00:23] LABS: Blood Gas Oxyhemoglobin 81.1 % (94-97); Blood O2 Saturation 82.9 % (92-98.5)
[2019-08-09 00:37] LABS: Potassium 6.2 mmol/L (3.5-5.1)
[2019-08-09 02:42] VITALS: TEMP 99.9; O2SAT 100
[2019-08-09 02:43] VITALS: BP 113/54
--- NOTE | 2019-08-09 11:06 | P.CNS ---
Date of Consult: 08/08/19 Reason for Consult: Renal failure/resp distress Requesting Physician: Julian Mendiola Chief Complaint: Resp failure/fluid overloaded/ESRD/hyperkalemia History of Present Illness: Patient is a 64-year-old female who was well known to me from multiple hospital stays in the past as well as shelter stay. She recently discharged from the shelter as she was going to live with her son son in an apartment. Concern was that she tried this before and required numerous hospitalizations. She has been out of the shelter for about a week. She went to dialysis but her AV fistula was clotted. She has missed 2 dialysis sessions that she can remember. She has not been able to get the AV fistula declotted. She claim in with fluid overload and respiratory distress. Labs reveals severe hyperkalemia. Patient will need to go to a facility where she can get the AV fistula declotted. She may need to be intubated as she has some respiratory distress. Will need to confirm correct her potassium level. Patient will be transferred to higher level of care. Allergies amoxicillin [Amoxicillin] Allergy (Verified 06/08/18 19:55) unknown Penicillins Adverse Reaction (Mild, Verified 06/08/18 19:55) itching rash amlodipine Adverse Reaction (Verified 06/08/18 19:55) Itching/Hives/Rash Home Medications: Atorvastatin Calcium 40 mg PO BEDTIME 02/17/18 Insulin Detemir [Levemir*] 8 unit SQ BID 02/17/18 Levothyroxine [Synthroid*] 50 mcg PO [id number] 02/17/18 Pregabalin [Lyrica*] 150 mg PO BID 06/08/18 Hydrocodone Bit/Acetaminophen [[place] 7.5-325 Tablet] 1 each PO Q6H PRN 11/20/18 Nepafenac [Ilevro] 1 drop OP DAILY PRN 11/20/18 Zinc Sulfate [Zinc Sulfate*] 220 mg PO DAILY 11/20/18 Apixaban [Eliquis *] 2.5 mg PO BID 03/15/19 Arginald Packet 1 packet PO DAILY 03/15/19 Ascorbic Acid [Vitamin C] 500 mg PO DAILY 03/15/19 Aspirin 81 mg PO DAILY 03/15/19 Calcium Carbonate [Tums] 2 tab.chew PO TIDWM 03/15/19 Cinacalcet HCl [Sensipar*] 2 tab PO DAILY 03/15/19 Folic Acid/Vit Bcomp,C [Linda-Ryan Tablet] 1 tab PO DAILY 03/15/19 Medihoney [Medihoney Woundcare Gel*] 1 appl TD M,W,F 03/15/19 Metoprolol Succinate [Toprol Xl*] 50 mg PO DAILY 03/15/19 Vancomycin/0.9 % Sod Chloride [Vancomycin 1 G/100Ml-0.9% NaCl] 1 gm IV AFTER EACH DIALYSIS 14 Days plast..bag 04/02/19 - Past Medical/Surgical History Diabetic: Yes -: HTN -: COPD -: Diabetes mellitus type 2 -: Anemia of chronic disease -: ESRD, poor compliance with dialysis -: Depression with anxiety -: CHF, diastolic dysfunction -: Gout -: COPD -: Chronic left pressure ulcer heel -: Hypothyroidism -: Charcot arthropathy -: Right eye December 25 2014-cataract -: Left eye January 15 2015-cataract -: right groin fistula -: Left chest HD access Psychosocial/ Personal History: Single, Children-2, Work-none - Family History Father Medical History: Heart disease, Cancer Notes: prostate cancer Mother Medical History: Heart disease, Hypertension, Diabetes, Cancer Notes: breast CA - Social History Smoking Status: Unknown if ever smoked Alcohol use: No CD- Drugs: No Caffeine use: No Review of Systems 10-point ROS is otherwise unremarkable Physical Examination Temp Pulse Resp BP Pulse Ox 99.9 F 106 H 22 H 113/54 L 08/09/19 01:39 08/09/19 02:15 08/09/19 02:15 08/09/19 02:15 General: Alert, In no apparent distress, Oriented x3 HEENT: Atraumatic, PERRLA, Mucous membr. moist/pink, EOMI, Sclerae nonicteric Neck: Supple, 2+ carotid pulse no bruit, No LAD, Without JVD or thyroid abnormality Respiratory: Crackles/rales Cardiovascular: Regular rate/rhythm, Normal S1 S2 Gastrointestinal: Normal bowel sounds, Soft and benign, Non-distended, No tenderness Musculoskeletal: No tenderness Integumentary: No rashes Neurological: Normal gait, Normal speech, Normal tone, Normal affect Lymphatics: No axilla or inguinal lymphadenopathy Laboratory Data (last 24 hrs) 08/08/19 23:59: Sodium 141, Potassium 6.2 H*, BUN 150 H, Creatinine 15.00 H*, Glucose 190 H 08/08/19 21:30: PT 13.5 H, INR 1.15, APTT 38.2 H 08/08/19 21:30: WBC 11.9 H, Hgb 12.2, Hct 39.5, Plt Count 151 L 08/08/19 21:30: Sodium 140, Potassium 7.8 H*, BUN 148 H, Creatinine 14.90 H*, Glucose 151 H, Magnesium 2.6 H D, Total Bilirubin 0.4, AST 21, ALT 29, Alkaline Phosphatase 170 H, Lipase 151 - Problems (1) Respiratory failure Status: Acute (2) Hyperkalemia Status: Acute (3) Diabetes mellitus Onset Date: 03/23/16 Status: Chronic Qualifiers: (4) ESRD (end stage renal disease) Onset Date: 07/22/17 Status: Chronic (5) Hypertensive disorder, systemic arterial Onset Date: 03/23/16 Status: Chronic Conclusions/ Impression: Plan: 1. Correct potassium level with bicarb, Kayexalate, calcium, D50 and insulin 2. IV Lasix 3. transfer for higher level of care 4. Nephrology follow-up and surgery follow-up 5. transfer to [facility]. Critical Care: Yes Time Spent Managing Pts care (In Minutes): 50
--- NOTE | 2019-08-09 15:58 | EKG ---
Test Date: 2019-08-08 Test Time: 20:28:25 Driver Medic: SARAHT MEASUREMENT RESULTS: Intervals: Rate: 123 AL: 144 QRSD: 152 QT: 384 QTc: 549 [place]: P: 46 AL: 144 QRS: 48 T: 63 INTERPRETIVE STATEMENTS: Sinus tachycardia with occasional premature ventricular complexes Left bundle branch block Abnormal ECG Compared to ECG 03/30/2019 14:29:49 Ventricular premature complex(es) now present Electronically Signed On 08-09-19 15:54:32 CDT by Nithin Lloyd
== END 2019-08-09 02:25 | disposition short-term general hospital (02) ==
LOC: ER 19:52
DX: J96.01 Acute respiratory failure with hypoxia (principal); J81.1 Chronic pulmonary edema; E87.5 Hyperkalemia; E11.22 Type 2 diabetes mellitus with diabetic chronic kidney disease; I13.2 Hypertensive heart and chronic kidney disease with heart failure and with stage 5 chronic kidney disease, or end stage renal disease; I50.9 Heart failure, unspecified; N18.6 End stage renal disease; D63.1 Anemia in chronic kidney disease; Z79.4 Long term (current) use of insulin; Z79.82 Long term (current) use of aspirin; Z88.0 Allergy status to penicillin; Z88.1 Allergy status to other antibiotic agents; Z85.3 Personal history of malignant neoplasm of breast; Z99.2 Dependence on renal dialysis
CPT/HCPCS: 93005; 87040; 85025; 80048 ×2; 36415; 83735; 82550; 85610; 85379; 80076; 85730; 84484; 82553; 83690; 83880; 71045; 82805; 96375; 96374; 99285; J0610

== ENCOUNTER 2019-09-15 20:40 | Emergency (ER) | payer MEDICAID ==
[2019-09-15] MEDS ORDERED: ALBUTEROL 2.5 MG/3 ML NEB SOL ONE (22:17)
--- NOTE | 2019-09-15 22:50 | ER ---
Nurse's Notes [facility] Name: Alysa Mayes Age: 64 yrs Sex: Female : 1955 Arrival Date: 09/15/2019 Time: 20:42 Bed 19 Private MD: Diagnosis: Acute bronchitis Presentation: 09/15 20:42 Presenting complaint: Patient states: that for the past 3 days she has had cough with fc thick clear sputum, runny nose with clear drainage and chills. Hx of Dialysis MWF. Transition of care: patient was not received from another setting of care. Onset of symptoms was September 12, 2019. Risk Assessment: Do you want to hurt yourself or someone else? Patient reports no desire to harm self or others. Initial Sepsis Screen: Does the patient meet any 2 criteria? HR > 90 bpm. Yes Does the patient have a suspected source of infection? No. Patient's initial sepsis screen is negative. Care prior to arrival: None. 20:42 Method Of Arrival: Ambulatory 20:42 Acuity: LESLEE 3 fc Triage Assessment: 22:00 Pain: Denies pain. Historical: - Allergies: 20:59 PENICILLINS; fc 20:59 Amoxicillin; fc 20:59 amlodipine; fc - PMHx: 20:59 Anemia; COPD; Depression; Diabetes - NIDDM; Dialysis; Gout; Hyperlipidemia; fc Hypertension; Hypothyroidism; CHF; pressure ulcers; - PSHx: 20:59 left upper arm fistula; fc - Immunization history:: Last tetanus immunization: unknown, Flu vaccine is not up to date. - Social history:: Smoking status: Patient/guardian denies using tobacco, Patient/guardian denies using alcohol, street drugs. - Ebola Screening: : Patient negative for fever greater than or equal to 101.5 degrees Fahrenheit, and additional compatible Ebola Virus Disease symptoms Patient denies exposure to infectious person Patient denies travel to an Ebola-affected area in the 21 days before illness onset. Screenin:42 Abuse screen: Denies threats or abuse. Nutritional screening: No deficits noted. fc Tuberculosis screening: No symptoms or risk factors identified. 22:00 Fall Risk None identified. Assessment: 20:56 General: Appears distressed, Behavior is cooperative, flat. Neuro: Denies weakness cr4 dizziness, numbness headache. Cardiovascular: Denies chest pain, nausea, shortness of breath, Heart tones S2. Cardiovascular: Capillary refill < 3 seconds edema +1 to margot.legs.. Dialysis shunt: in the left arm, with palpable thrill, with auscultated bruit. Respiratory: Reports cough that is non-productive, hacking, Airway is patent Trachea midline Respiratory effort is even, unlabored, Respiratory pattern is regular, Breath sounds with crackles bilaterally. GI: Patient currently denies abdominal pain, nausea, vomiting. : dialysis patient with fistula to [facility]. Dialysis MWF. EENT: Reports nasal congestion since 3 days ago. nasal discharge that is watery. Derm: No signs and/or symptoms reported regarding the dermatologic system. Musculoskeletal: Range of motion: intact in all extremities, uses walker to ambulate. 22:03 Reassessment: No changes from previously documented assessment. Patient and/or family cr4 updated on plan of care and expected duration. Pain level reassessed. Patient is alert, oriented x 3, equal unlabored respirations, skin warm/dry/pink. back from x-ray. Patient still prefers to sit in chair.. 22:45 Reassessment: No changes from previously documented assessment. Patient and/or family cr4 updated on plan of care and expected duration. Pain level reassessed. Patient is alert, oriented x 3, equal unlabored respirations, skin warm/dry/pink. Vital Signs: 20:42 BP 124 / 64; Pulse 110; Resp 18; Temp 99.0(O); Pulse Ox 98% on R/A; Weight 81.65 kg fc (R); Height 5 ft. 7 in. (170.18 cm) (R); Pain 9/10; 23:16 BP 126 / 54; Pulse 102; Resp 18; Pulse Ox 96% on R/A; wh 20:42 Body Mass Index 28.19 (81.65 kg, 170.18 cm) ED Course: 20:42 Patient arrived in ED. ds1 20:42 Arm band placed on Patient placed in an exam room, on a stretcher. fc 20:42 Patient has correct armband on for positive identification. Call light in reach. Pt fc sitting up in chair, refused to get in bed. Pulse ox on. NIBP on. 20:55 Triage completed. fc 21:07 Sumit Yeboah MD is Attending Physician. [facility] 21:21 [facility] sn[facility] 21:36 Flu Sent. cr4 21:52 X-ray(s) taken. cr4 21:55 Chest Pa And Lat (2 Views) XRAY In Process Unspecified. EDMS 22:25 Initial Neb Treatment Given as ordered. cr4 23:14 No provider procedures requiring assistance completed. Patient did not have IV access during this emergency room visit. Administered Medications: 22:25 Drug: Albuterol 2.5 mg Route: Inhalation; cr4 22:57 Drug: Tussionex Pennkinetic ER 5 ml Route: PO; cr4 23:10 Follow up: Response: No adverse reaction Outcome: 22:49 Discharge ordered by . snw 23:14 Discharged to home ambulatory. 23:14 Condition: stable 23:14 Discharge instructions given to 23:14 Discharge instructions given to patient, Instructed on discharge instructions, follow up and referral plans. medication usage, POC Bronchitis Demonstrated understanding of instructions, follow-up care, medications, POC Prescriptions given X 1. 23:16 Patient left the ED. Signatures: Dispatcher [employer] EDMS Sumit Yeboah MD MD cha Therrien, Shelly, [employer]nw Lian Cornejo, RN RN Mary Zhao ds1 Cassia Mathews RN RN Kamaljit Tolentino
--- NOTE | 2019-09-15 22:51 | EDPHYS ---
Physician Documentation [facility] Name: Alysa Mayes Age: 64 yrs Sex: Female : 1955 Arrival Date: 09/15/2019 Time: 20:42 Bed 19 Private MD: LUANNE Physician Sumit Yeboah HPI: 09/15 21:47 This 64 yrs old Black Female presents to ER via Ambulatory with complaints of Runny snw Nose, Cough. 21:47 The patient or guardian reports airway noise, cough, flu symptoms. Onset: The snw symptoms/episode began/occurred suddenly, 2 day(s) ago, and became persistent. Severity of symptoms: At their worst the symptoms were moderate. Associated signs and symptoms: The patient has no apparent associated signs or symptoms. It is unknown whether or not the patient has had similar symptoms in the past. Dialysis today. Historical: - Allergies: 20:59 PENICILLINS; fc 20:59 Amoxicillin; fc 20:59 amlodipine; fc - PMHx: 20:59 Anemia; COPD; Depression; Diabetes - NIDDM; Dialysis; Gout; Hyperlipidemia; fc Hypertension; Hypothyroidism; CHF; pressure ulcers; - PSHx: 20:59 left upper arm fistula; fc - Immunization history:: Last tetanus immunization: unknown, Flu vaccine is not up to date. - Social history:: Smoking status: Patient/guardian denies using tobacco, Patient/guardian denies using alcohol, street drugs. - Ebola Screening: : Patient negative for fever greater than or equal to 101.5 degrees Fahrenheit, and additional compatible Ebola Virus Disease symptoms Patient denies exposure to infectious person Patient denies travel to an Ebola-affected area in the 21 days before illness onset. ROS: 21:46 Constitutional: Negative for fever, chills, and weight loss, Eyes: Negative for injury, snw pain, redness, and discharge, Neck: Negative for injury, pain, and swelling, Cardiovascular: Negative for chest pain, palpitations, and edema, Abdomen/GI: Negative for abdominal pain, nausea, vomiting, diarrhea, and constipation, Back: Negative for injury and pain, : Negative for injury, bleeding, discharge, and swelling, MS/Extremity: Negative for injury and deformity, Skin: Negative for injury, rash, and discoloration, Neuro: Negative for headache, weakness, numbness, tingling, and seizure, Psych: Negative for depression, anxiety, suicide ideation, homicidal ideation, and hallucinations. 21:46 ENT: Positive for nasal discharge, sinus congestion. 21:46 Respiratory: Positive for cough, shortness of breath, wheezing. Exam: 21:45 Constitutional: This is a well developed, well nourished patient who is awake, alert, snw and in no acute distress. Head/Face: Normocephalic, atraumatic. Eyes: Pupils equal round and reactive to light, extra-ocular motions intact. Lids and lashes normal. Conjunctiva and sclera are non-icteric and not injected. Cornea within normal limits. Periorbital areas with no swelling, redness, or edema. Neck: Trachea midline, no thyromegaly or masses palpated, and no cervical lymphadenopathy. Supple, full range of motion without nuchal rigidity, or vertebral point tenderness. No Meningismus. Chest/axilla: Normal chest wall appearance and motion. Nontender with no deformity. No lesions are appreciated. Abdomen/GI: Soft, non-tender, with normal bowel sounds. No distension or tympany. No guarding or rebound. No evidence of tenderness throughout. Back: No spinal tenderness. No costovertebral tenderness. Full range of motion. Skin: Warm, dry with normal turgor. Normal color with no rashes, no lesions, and no evidence of cellulitis. MS/ Extremity: Pulses equal, no cyanosis. Neurovascular intact. Full, normal range of motion. Neuro: Awake and alert, GCS 15, oriented to person, place, time, and situation. Cranial nerves II-XII grossly intact. Motor strength 5/5 in all extremities. Sensory grossly intact. Cerebellar exam normal. Normal gait. 21:45 ENT: External ear(s): are unremarkable, Ear canal(s): cerumen impaction, that is moderate, bilaterally, TM's: not visable, Nose: is normal, Mouth: is normal, Posterior pharynx: is normal, Dental exam: normal. 21:45 Cardiovascular: Rate: tachycardic. 21:45 Respiratory: the patient does not display signs of respiratory distress, Respirations: shallow respirations, tachypnea, Breath sounds: decreased breath sounds, that are moderate, bronchitic cough. Vital Signs: 20:42 BP 124 / 64; Pulse 110; Resp 18; Temp 99.0(O); Pulse Ox 98% on R/A; Weight 81.65 kg fc (R); Height 5 ft. 7 in. (170.18 cm) (R); Pain 9/10; 23:16 BP 126 / 54; Pulse 102; Resp 18; Pulse Ox 96% on R/A; wh 20:42 Body Mass Index 28.19 (81.65 kg, 170.18 cm) MDM: 21:07 Patient medically screened. cory 22:50 Data reviewed: vital signs, nurses notes. Data interpreted: Pulse oximetry: on room air snw is 98 %. Interpretation: normal. Counseling: I had a detailed discussion with the patient and/or guardian regarding: the historical points, exam findings, and any diagnostic results supporting the discharge/admit diagnosis, lab results, radiology results, the need for outpatient follow up, to return to the emergency department if symptoms worsen or persist or if there are any questions or concerns that arise at home. Special discussion: Based on the history and exam findings, there is no indication for further emergent testing or inpatient evaluation. I discussed with the patient/guardian the need to see the primary care provider for further evaluation of the symptoms. 09/15 21:24 Order name: Flu; Complete Time: 22:13 snw 09/15 21:24 Order name: Chest Pa And Lat (2 Views) XRAY snw Administered Medications: 22:25 Drug: Albuterol 2.5 mg Route: Inhalation; cr4 22:57 Drug: Tussionex Pennkinetic ER 5 ml Route: PO; cr4 23:10 Follow up: Response: No adverse reaction Disposition: 09/15/19 22:49 Discharged to Home. Impression: Acute bronchitis. - Condition is Stable. - Discharge Instructions: Acute Bronchitis, Adult, Fever, Adult. - Prescriptions for Albuterol Sulfate 90 mcg/actuation - inhale 1-2 puff by INHALATION route every 4-6 hours; 1 Inhaler. - Medication Reconciliation Form, Thank You Letter, Antibiotic Education, Prescription Opioid Use form. - Follow up: Private Physician; When: 2 - 3 days; Reason: Recheck today's complaints, Continuance of care, Re-evaluation by your physician. Follow up: Emergency Department; When: As needed; Reason: Worsening of condition. Addendum: 09/18/2019 08:23 Co-signature as Attending Physician, Sumit Yeboah MD I agree with the assessment and c tomlinson plan of care. Signatures: Dispatcher [employer] EDSumit Bates MD MD cha Therrien, Shelly, MECHANICAL MAINTENANCE FOREMAN-C MECHANICAL MAINTENANCE FOREMAN-Csnw Lian Cornejo, RN RN Cassia Mathews, RN RN cr4 Brinabenjamín Kamaljit Corrections: (The following items were deleted from the chart) 09/15 23:16 22:49 09/15/2019 22:49 Discharged to Home. Impression: Acute bronchitis. Condition is wh Stable. Forms are Medication Reconciliation Form, Thank You Letter, Antibiotic Education, Prescription Opioid Use. Follow up: Private Physician; When: 2 - 3 days; Reason: Recheck today's complaints, Continuance of care, Re-evaluation by your physician. Follow up: Emergency Department; When: As needed; Reason: Worsening of condition. snw
[2019-09-15] MEDS ORDERED: HYDROCODONE/CHLORPHEN 5 ML/OSYR ONE (22:54)
[2019-09-15 23:22] VITALS: TEMP 99
[2019-09-15 23:23] VITALS: BP 126/54; O2SAT 96
--- NOTE | 2019-09-16 08:49 | RAD REPORT ---
EXAM DESCRIPTION: RAD - Chest Pa And Lat (2 Views) - 09/15/2019 9:56 pm CLINICAL HISTORY: COUGH, history of COPD, diabetes, dialysis, hypertension and CHF COMPARISON: August 08April 01 TECHNIQUE: PA and lateral views of the chest were obtained. FINDINGS: The lungs are slightly underinflated. Interstitial markings are mildly prominent but proba saritha a baseline. No significant failure or volume overload findings. No focal mass or consolidation. Heart size and vasculature are within normal limits. Left-sided vascular access catheter is in juana ce. Tip is in the right atrium as previously seen. Wake No acute bony finding noted. No aortic abnormality. IMPRESSION: No acute cardiopulmonary process. Slight prominence of the interstitial markings believed to be the affects of shallow inspiration. No significant failure or volume overload.
== END 2019-09-15 23:16 | disposition home or self-care (01) ==
LOC: ER 20:40
DX: J20.9 Acute bronchitis, unspecified (principal); Z88.0 Allergy status to penicillin; Z88.1 Allergy status to other antibiotic agents
CPT/HCPCS: 71046; 87804; 99284

== ENCOUNTER 2019-11-26 10:09 | Emergency (ER) | payer MEDICAID ==
--- OUTSIDE RECORDS SUMMARY | 2019-11-26 10:18 | XMS REPORT ---
:1955 [facility] Address [address] [place] [address] Care Team Providers Name Role Phone ARELY ARCEO Unavailable Unavailable ANDRES RITTER Unavailable Unavailable TARCARSON [...] Value Reference Range Comments CULTURE (BEAKER) (test sldj=9000) No growth in 5 days POCT-GLUCOSE [id number] 09:17:00 Test Item Value Reference Range Comments POC-GLUCOSE METER (BEAKER) 110 mg/dL 70-110 TESTED AT [facility] [address] [facility] (test jhsh=2399) [facility] [address] CBC W/PLT COUNT & AUTO [id number] 07:05:00 Test Item Value Reference Range Comments WHITE BLOOD CELL COUNT (BEAKER) (test bfpg=932) 8.2 K/ L 3.5-10.5 RED BLOOD CELL COUNT (BEAKER) (test swwm=224) 2.79 M/ L 3.93-5.22 HEMOGLOBIN (BEAKER) (test ziqi=730) 7.8 GM/DL 11.2-15.7 HEMATOCRIT (BEAKER) (test tjlw=715) 26.4 % 34.1-44.9 MEAN CORPUSCULAR VOLUME (BEAKER) (test ewjp=389) 94.6 fL 79.4-94.8 MEAN CORPUSCULAR HEMOGLOBIN (BEAKER) (test 28.0 pg 25.6-32.2 oafi=659) MEAN CORPUSCULAR HEMOGLOBIN CONC (BEAKER) (test 29.5 GM/DL 32.2-35.5 xclo=324) RED CELL DISTRIBUTION WIDTH (BEAKER) (test 14.5 % 11.7-14.4 eycw=971) PLATELET COUNT (BEAKER) (test xyei=499) 299 K/CU MM 150-450 MEAN PLATELET VOLUME (BEAKER) (test oprg=553) 10.0 fL 9.4-12.3 NUCLEATED RED BLOOD CELLS (BEAKER) (test 0 /100 WBC 0-0 bkwl=292) NEUTROPHILS RELATIVE PERCENT (BEAKER) (test 72 % jjxs=341) LYMPHOCYTES RELATIVE PERCENT (BEAKER) (test 11 % mghc=790) MONOCYTES RELATIVE PERCENT (BEAKER) (test 10 % zjes=223) EOSINOPHILS RELATIVE PERCENT (BEAKER) (test 5 % iabw=101) BASOPHILS RELATIVE PERCENT (BEAKER) (test 1 % ljnc=358) NEUTROPHILS ABSOLUTE COUNT (BEAKER) (test 5.93 K/ L 1.56-6.13 cekz=924) LYMPHOCYTES ABSOLUTE COUNT (BEAKER) (test 0.87 K/ L 1.18-3.74 jglt=747) MONOCYTES ABSOLUTE COUNT (BEAKER) (test 0.84 K/ L 0.24-0.36 tkbc=330) EOSINOPHILS ABSOLUTE COUNT (BEAKER) (test 0.44 K/ L 0.04-0.36 utgo=164) BASOPHILS ABSOLUTE COUNT (BEAKER) (test 0.09 K/ L 0.01-0.08 armc=495) IMMATURE GRANULOCYTES-RELATIVE PERCENT (BEAKER) 1 % 0-1 (test rddu=5176) BASIC METABOLIC [id number] 07:04:00 Test Item Value Reference Range Comments SODIUM (BEAKER) (test 139 meq/L 136-145 suhz=325) POTASSIUM (BEAKER) (test 4.3 meq/L 3.5-5.1 dofi=319) CHLORIDE (BEAKER) (test 104 meq/L 98-107 hxfl=724) CO2 (BEAKER) (test 26 meq/L 22-29 defd=651) BLOOD UREA NITROGEN 31 mg/dL 7-21 (BEAKER) (test jhia=948) CREATININE (BEAKER) (test 5.39 mg/dL 0.57-1.25 qkcr=936) GLUCOSE RANDOM (BEAKER) 83 mg/dL 70-105 (test ncpt=317) CALCIUM (BEAKER) (test 9.1 mg/dL 8.4-10.2 azww=180) EGFR (BEAKER) (test 10 mL/min/1.73 sq m ESTIMATED GFR IS NOT jnoz=1178) ACCURATE CREATININE CLEARANCE IN PREDICTING GLOMERULAR FILTRATION RATE. ESTIMATED GFR IS NOT APPLICABLE FOR DIALYSIS PATIENTS. RAD, ABDOMEN/KUB, 1 VIEW [id number] 04:19:00Reason for exam:->abdominal painFINAL REPORT EXAMINATION: SUPINE [...] Verified Date/ Time: 12/08/2018 04:19:23 Reading Location: [address] Reading Room POCT-GLUCOSE [id number] 21:25:00 Test Item Value Reference Range Comments POC-GLUCOSE METER (BEAKER) 193 mg/dL 70-110 TESTED AT [address] (test dxjp=0609) [facility] [address] POCT-GLUCOSE [id number] 17:52:00 Test Item Value Reference Range Comments POC-GLUCOSE METER (BEAKER) 152 mg/dL 70-110 TESTED AT [address] (test kjxx=3915) [facility] [address] POCT-GLUCOSE [id number] 14:15:00 Test Item Value Reference Range Comments POC-GLUCOSE METER (BEAKER) 284 mg/dL 70-110 TESTED AT [address] (test eadu=3324) [facility] [address] POCT-GLUCOSE [id number] 08:09:00 Test Item Value Reference Range Comments POC-GLUCOSE METER (BEAKER) 185 mg/dL 70-110 TESTED AT [address] (test jzpl=1052) [facility] [address] BASIC METABOLIC [id number] 06:30:00 Test Item Value Reference Range Comments SODIUM (BEAKER) (test 137 meq/L 136-145 pbmo=351) POTASSIUM (BEAKER) (test 4.2 meq/L 3.5-5.1 lfip=117) CHLORIDE (BEAKER) (test 98 meq/L 98-107 vhgu=207) CO2 (BEAKER) (test 28 meq/L 22-29 ewpm=443) BLOOD UREA NITROGEN 46 mg/dL 7-21 (BEAKER) (test jjle=563) CREATININE (BEAKER) (test 6.96 mg/dL 0.57-1.25 bxxl=414) GLUCOSE RANDOM (BEAKER) 131 mg/dL 70-105 (test oout=755) CALCIUM (BEAKER) (test 9.1 mg/dL 8.4-10.2 kouk=223) EGFR (BEAKER) (test 7 mL/min/1.73 sq m ESTIMATED GFR IS NOT ldhy=7175) ACCURATE CREATININE CLEARANCE IN PREDICTING GLOMERULAR FILTRATION RATE. ESTIMATED GFR IS NOT APPLICABLE FOR DIALYSIS PATIENTS. [id number] 06:29:00 Test Item Value Reference Range Comments MAGNESIUM (BEAKER) (test ghik=889) 2.2 mg/dL 1.6-2.6 CBC W/PLT COUNT & AUTO [id number] 05:57:00 Test Item Value Reference Range Comments WHITE BLOOD CELL COUNT (BEAKER) (test xcdd=622) 11.4 K/ L 3.5-10.5 RED BLOOD CELL COUNT (BEAKER) (test jfhp=781) 2.56 M/ L 3.93-5.22 HEMOGLOBIN (BEAKER) (test ddcg=130) 7.2 GM/DL 11.2-15.7 HEMATOCRIT (BEAKER) (test obkq=437) 23.4 % 34.1-44.9 MEAN CORPUSCULAR VOLUME (BEAKER) (test tntt=403) 91.4 fL 79.4-94.8 MEAN CORPUSCULAR HEMOGLOBIN (BEAKER) (test 28.1 pg 25.6-32.2 cvqc=398) MEAN CORPUSCULAR HEMOGLOBIN CONC (BEAKER) (test 30.8 GM/DL 32.2-35.5 lavk=272) RED CELL DISTRIBUTION WIDTH (BEAKER) (test 14.6 % 11.7-14.4 ldhk=512) PLATELET COUNT (BEAKER) (test bhmo=612) 246 K/CU MM 150-450 MEAN PLATELET VOLUME (BEAKER) (test taut=922) 9.8 fL 9.4-12.3 NUCLEATED RED BLOOD CELLS (BEAKER) (test 0 /100 WBC 0-0 ofyd=369) NEUTROPHILS RELATIVE PERCENT (BEAKER) (test 82 % jayg=494) LYMPHOCYTES RELATIVE PERCENT (BEAKER) (test 6 % ocfv=766) MONOCYTES RELATIVE PERCENT (BEAKER) (test 8 % hwuj=296) EOSINOPHILS RELATIVE PERCENT (BEAKER) (test 3 % czho=867) BASOPHILS RELATIVE PERCENT (BEAKER) (test 1 % pbju=730) NEUTROPHILS ABSOLUTE COUNT (BEAKER) (test 9.41 K/ L 1.56-6.13 iqiw=206) LYMPHOCYTES ABSOLUTE COUNT (BEAKER) (test 0.70 K/ L 1.18-3.74 blwb=488) MONOCYTES ABSOLUTE COUNT (BEAKER) (test 0.89 K/ L 0.24-0.36 uyyo=195) EOSINOPHILS ABSOLUTE COUNT (BEAKER) (test 0.31 K/ L 0.04-0.36 jpoe=198) BASOPHILS ABSOLUTE COUNT (BEAKER) (test 0.06 K/ L 0.01-0.08 xolw=582) IMMATURE GRANULOCYTES-RELATIVE PERCENT (BEAKER) 1 % 0-1 (test blyc=8164) POCT-GLUCOSE [id number] 21:35:00 Test Item Value Reference Range Comments POC-GLUCOSE METER (BEAKER) 249 mg/dL 70-110 TESTED AT [place] [id number] [facility] (test crnt=2933) [facility] [address] POCT-GLUCOSE [id number] 17:49:00 Test Item Value Reference Range Comments POC-GLUCOSE METER (BEAKER) 168 mg/dL 70-110 TESTED AT [place] [id number] [facility] (test qsco=2598) [place] [id number] [facility], MULTI, PHARM, [id number] 16:00:00FINAL REPORT PROCEDURE: Rest/Stress MYOCARDIAL PERFUSION SPECT with regadenoson\\XA9\\ CPT CODE: 67750 INDICATION: New onset heart failure, intermediate risk [...] tracer distribution is normal. 6. No previous [facility] study for comparison. Signed: Dariana Jones MDReport Verified Date/Time: 12/06/2018 16:00:51 Reading Location: [address] Reading Room Electronically signed by: DARIANA JONES MD on 2018 04:00 PMANG, TUNNELED CATHETER [id number] 14:29:00Reason for exam :->Tunneled cath for dialysisFINAL [...] Verified Date/Time: 12/06/2018 14:29:30 Reading Location : [place] [address] Angio Body Reading Room POCT-GLUCOSE [id number] 12:31:00 Test Item Value Reference Range Comments POC-GLUCOSE METER (BEAKER) 187 mg/dL 70-110 TESTED AT [address] (test jrpb=4612) [facility] [address] POCT-GLUCOSE [id number] 11:21:00 Test Item Value Reference Range Comments POC-GLUCOSE METER (BEAKER) 165 mg/dL 70-110 TESTED AT [place] [id number] [facility] (test jdff=1753) [facility] [address] POCT-GLUCOSE [id number] 06:17:00 Test Item Value Reference Range Comments POC-GLUCOSE METER (BEAKER) 108 mg/dL 70-110 TESTED AT [address] (test txdp=9410) [facility] [address] VANCOMYCIN LEVEL, [id number] 02:03:00 Test Item Value Reference Range Comments VANCOMYCIN RANDOM (BEAKER) (test auup=081) 18.7 ug/mL Reference Range: No NormalsCBC W/PLT COUNT & AUTO [id number] 01: 48:00 Test Item Value Reference Range Comments WHITE BLOOD CELL COUNT (BEAKER) (test iurk=646) 12.1 K/ L 3.5-10.5 RED BLOOD CELL COUNT (BEAKER) (test xxhx=660) 2.76 M/ L 3.93-5.22 HEMOGLOBIN (BEAKER) (test iyql=668) 7.7 GM/DL 11.2-15.7 HEMATOCRIT (BEAKER) (test uroh=204) 25.1 % 34.1-44.9 MEAN CORPUSCULAR VOLUME (BEAKER) (test cbvd=849) 90.9 fL 79.4-94.8 MEAN CORPUSCULAR HEMOGLOBIN (BEAKER) (test 27.9 pg 25.6-32.2 kvjx=490) MEAN CORPUSCULAR HEMOGLOBIN CONC (BEAKER) (test 30.7 GM/DL 32.2-35.5 onih=051) RED CELL DISTRIBUTION WIDTH (BEAKER) (test 14.6 % 11.7-14.4 ecmq=651) PLATELET COUNT (BEAKER) (test qbsj=659) 231 K/CU MM 150-450 MEAN PLATELET VOLUME (BEAKER) (test hpqt=510) 10.0 fL 9.4-12.3 NUCLEATED RED BLOOD CELLS (BEAKER) (test 0 /100 WBC 0-0 yknc=597) NEUTROPHILS RELATIVE PERCENT (BEAKER) (test 84 % lwqk=419) LYMPHOCYTES RELATIVE PERCENT (BEAKER) (test 7 % jfxf=954) MONOCYTES RELATIVE PERCENT (BEAKER) (test 6 % ivjy=303) EOSINOPHILS RELATIVE PERCENT (BEAKER) (test 2 % bgzs=270) BASOPHILS RELATIVE PERCENT (BEAKER) (test 1 % gxuv=492) NEUTROPHILS ABSOLUTE COUNT (BEAKER) (test 10.17 K/ L 1.56-6.13 nnrx=120) LYMPHOCYTES ABSOLUTE COUNT (BEAKER) (test 0.79 K/ L 1.18-3.74 kodo=975) MONOCYTES ABSOLUTE COUNT (BEAKER) (test 0.73 K/ L 0.24-0.36 tbmy=952) EOSINOPHILS ABSOLUTE COUNT (BEAKER) (test 0.24 K/ L 0.04-0.36 josw=464) BASOPHILS ABSOLUTE COUNT (BEAKER) (test 0.08 K/ L 0.01-0.08 krei=936) IMMATURE GRANULOCYTES-RELATIVE PERCENT (BEAKER) 0 % 0-1 (test onoa=4156) BASIC METABOLIC [id number] 01:43:00 Test Item Value Reference Range Comments SODIUM (BEAKER) (test 136 meq/L 136-145 gyef=783) POTASSIUM (BEAKER) (test 4.2 meq/L 3.5-5.1 tubt=069) CHLORIDE (BEAKER) (test 99 meq/L 98-107 yufs=218) CO2 (BEAKER) (test 27 meq/L 22-29 gnrk=368) BLOOD UREA NITROGEN 29 mg/dL 7-21 (BEAKER) (test xzxp=182) CREATININE (BEAKER) (test 5.09 mg/dL 0.57-1.25 nkeq=028) GLUCOSE RANDOM (BEAKER) 110 mg/dL 70-105 (test diba=439) CALCIUM (BEAKER) (test 9.0 mg/dL 8.4-10.2 sjpv=787) EGFR (BEAKER) (test 10 mL/min/1.73 sq m ESTIMATED GFR IS NOT hqmj=2771) ACCURATE CREATININE CLEARANCE IN PREDICTING GLOMERULAR FILTRATION RATE. ESTIMATED GFR IS NOT APPLICABLE FOR DIALYSIS PATIENTS. [id number] 01:34:00 Test Item Value Reference Range Comments PARTIAL THROMBOPLASTIN TIME (BEAKER) (test 85.3 seconds 22.5-36.0 jnty=605) POCT-GLUCOSE [id number] 21:26:00 Test Item Value Reference Range Comments POC-GLUCOSE METER (BEAKER) 154 mg/dL 70-110 TESTED AT [facility] [address] [facility] (test nqeb=1138) [facility] [address] POCT-GLUCOSE [id number] 16:29:00 Test Item Value Reference Range Comments POC-GLUCOSE METER (BEAKER) 121 mg/dL 70-110 TESTED AT [address] (test grkl=2405) [facility] [address] POCT-GLUCOSE [id number] 16:26:00 Test Item Value Reference Range Comments POC-GLUCOSE METER (BEAKER) 119 mg/dL 70-110 TESTED AT [address] (test wvcy=8388) [facility] [address] [id number] 08:47:00 Test Item Value Reference Range Comments PARTIAL THROMBOPLASTIN TIME (BEAKER) (test 85.2 seconds 22.5-36.0 sddn=379) BASIC METABOLIC [id number] 08:29:00 Test Item Value Reference Range Comments SODIUM (BEAKER) (test 133 meq/L 136-145 khdd=938) POTASSIUM (BEAKER) (test 4.7 meq/L 3.5-5.1 tyhb=943) CHLORIDE (BEAKER) (test 93 meq/L 98-107 ktmg=486) CO2 (BEAKER) (test 24 meq/L 22-29 tcuc=463) BLOOD UREA NITROGEN 64 mg/dL 7-21 (BEAKER) (test bcxt=752) CREATININE (BEAKER) (test 8.39 mg/dL 0.57-1.25 jgdp=674) GLUCOSE RANDOM (BEAKER) 117 mg/dL 70-105 (test ifqt=630) CALCIUM (BEAKER) (test 8.7 mg/dL 8.4-10.2 cuzh=973) EGFR (BEAKER) (test 6 mL/min/1.73 sq m ESTIMATED GFR IS NOT pmuz=1610) ACCURATE CREATININE CLEARANCE IN PREDICTING GLOMERULAR FILTRATION RATE. ESTIMATED GFR IS NOT APPLICABLE FOR DIALYSIS PATIENTS. CBC W/PLT COUNT & AUTO [id number] 08:25:00 Test Item Value Reference Range Comments WHITE BLOOD CELL COUNT (BEAKER) (test xeua=214) 15.1 K/ L 3.5-10.5 RED BLOOD CELL COUNT (BEAKER) (test kcal=748) 2.84 M/ L 3.93-5.22 HEMOGLOBIN (BEAKER) (test fsar=226) 7.8 GM/DL 11.2-15.7 HEMATOCRIT (BEAKER) (test uroz=644) 25.8 % 34.1-44.9 MEAN CORPUSCULAR VOLUME (BEAKER) (test nzrd=623) 90.8 fL 79.4-94.8 MEAN CORPUSCULAR HEMOGLOBIN (BEAKER) (test 27.5 pg 25.6-32.2 lakb=464) MEAN CORPUSCULAR HEMOGLOBIN CONC (BEAKER) (test 30.2 GM/DL 32.2-35.5 suzi=727) RED CELL DISTRIBUTION WIDTH (BEAKER) (test 14.7 % 11.7-14.4 ullr=249) PLATELET COUNT (BEAKER) (test jykj=182) 258 K/CU MM 150-450 MEAN PLATELET VOLUME (BEAKER) (test ausr=594) 10.4 fL 9.4-12.3 NUCLEATED RED BLOOD CELLS (BEAKER) (test 0 /100 WBC 0-0 aldj=842) NEUTROPHILS RELATIVE PERCENT (BEAKER) (test 83 % kfav=765) LYMPHOCYTES RELATIVE PERCENT (BEAKER) (test 8 % qxuu=023) MONOCYTES RELATIVE PERCENT (BEAKER) (test 6 % somn=361) EOSINOPHILS RELATIVE PERCENT (BEAKER) (test 2 % kxyd=380) BASOPHILS RELATIVE PERCENT (BEAKER) (test 1 % msan=278) NEUTROPHILS ABSOLUTE COUNT (BEAKER) (test 12.58 K/ L 1.56-6.13 wnup=388) LYMPHOCYTES ABSOLUTE COUNT (BEAKER) (test 1.18 K/ L 1.18-3.74 rucj=281) MONOCYTES ABSOLUTE COUNT (BEAKER) (test 0.87 K/ L 0.24-0.36 elqw=174) EOSINOPHILS ABSOLUTE COUNT (BEAKER) (test 0.30 K/ L 0.04-0.36 esfl=483) BASOPHILS ABSOLUTE COUNT (BEAKER) (test 0.08 K/ L 0.01-0.08 eyyt=665) IMMATURE GRANULOCYTES-RELATIVE PERCENT (BEAKER) 1 % 0-1 (test ffvr=8616) [id number] 23:58:00 Test Item Value Reference Range Comments PARTIAL THROMBOPLASTIN TIME (BEAKER) (test 92.6 seconds 22.5-36.0 jnyg=675) POCT-GLUCOSE [id number] 20:54:00 Test Item Value Reference Range Comments POC-GLUCOSE METER (BEAKER) 151 mg/dL 70-110 TESTED AT [address] (test lnax=2324) [facility] [address] POCT-GLUCOSE [id number] 17:04:00 Test Item Value Reference Range Comments POC-GLUCOSE METER (BEAKER) 158 mg/dL 70-110 TESTED AT [address] (test ieev=0158) [facility] [address] [id number] 16:25:00 Test Item Value Reference Range Comments PARTIAL THROMBOPLASTIN TIME (BEAKER) (test 75.9 seconds 22.5-36.0 fjlr=540) POCT-GLUCOSE [id number] 12:34:00 Test Item Value Reference Range Comments POC-GLUCOSE METER (BEAKER) 183 mg/dL 70-110 TESTED AT [address] (test wzqb=0680) [facility] [address] POCT-GLUCOSE [id number] 12:00:00 Test Item Value Reference Range Comments POC-GLUCOSE METER (BEAKER) 175 mg/dL 70-110 TESTED AT [address] (test wlcw=9707) [facility] [address] [id number] 10:17:00 Test Item Value Reference Range Comments PARTIAL THROMBOPLASTIN TIME (BEAKER) (test 32.1 seconds 22.5-36.0 nvjk=021) Prior to initiating heparinBASIC METABOLIC [id number] 08:20:00 Test Item Value Reference Range Comments SODIUM (BEAKER) (test 134 meq/L 136-145 yuuq=514) POTASSIUM (BEAKER) (test 4.3 meq/L 3.5-5.1 oabi=771) CHLORIDE (BEAKER) (test 98 meq/L 98-107 vgwj=733) CO2 (BEAKER) (test 26 meq/L 22-29 ccjv=989) BLOOD UREA NITROGEN 48 mg/dL 7-21 (BEAKER) (test znpm=534) CREATININE (BEAKER) (test 6.48 mg/dL 0.57-1.25 avqz=151) GLUCOSE RANDOM (BEAKER) 124 mg/dL 70-105 (test fhmf=133) CALCIUM (BEAKER) (test 9.2 mg/dL 8.4-10.2 mdoi=772) EGFR (BEAKER) (test 8 mL/min/1.73 sq m ESTIMATED GFR IS NOT rdoi=9819) ACCURATE CREATININE CLEARANCE IN PREDICTING GLOMERULAR FILTRATION RATE. ESTIMATED GFR IS NOT APPLICABLE FOR DIALYSIS PATIENTS. VANCOMYCIN LEVEL, [id number] 08:06:00 Test Item Value Reference Range Comments VANCOMYCIN RANDOM (BEAKER) (test uubn=018) 28.6 ug/mL Reference Range: No NormalsCBC W/PLT COUNT & AUTO [id number] 07: 14:00 Test Item Value Reference Range Comments WHITE BLOOD CELL COUNT (BEAKER) (test reez=753) 13.3 K/ L 3.5-10.5 RED BLOOD CELL COUNT (BEAKER) (test nndq=194) 2.89 M/ L 3.93-5.22 HEMOGLOBIN (BEAKER) (test erde=357) 7.9 GM/DL 11.2-15.7 HEMATOCRIT (BEAKER) (test xppe=531) 26.4 % 34.1-44.9 MEAN CORPUSCULAR VOLUME (BEAKER) (test msdp=695) 91.3 fL 79.4-94.8 MEAN CORPUSCULAR HEMOGLOBIN (BEAKER) (test 27.3 pg 25.6-32.2 mvxy=691) MEAN CORPUSCULAR HEMOGLOBIN CONC (BEAKER) (test 29.9 GM/DL 32.2-35.5 aakd=275) RED CELL DISTRIBUTION WIDTH (BEAKER) (test 15.2 % 11.7-14.4 sbrg=069) PLATELET COUNT (BEAKER) (test eupn=439) 242 K/CU MM 150-450 MEAN PLATELET VOLUME (BEAKER) (test pdqa=850) 10.2 fL 9.4-12.3 NUCLEATED RED BLOOD CELLS (BEAKER) (test 0 /100 WBC 0-0 ikih=942) NEUTROPHILS RELATIVE PERCENT (BEAKER) (test 82 % xjka=616) LYMPHOCYTES RELATIVE PERCENT (BEAKER) (test 8 % dauy=051) MONOCYTES RELATIVE PERCENT (BEAKER) (test 6 % wscp=347) EOSINOPHILS RELATIVE PERCENT (BEAKER) (test 2 % bxau=624) BASOPHILS RELATIVE PERCENT (BEAKER) (test 1 % vbyl=249) NEUTROPHILS ABSOLUTE COUNT (BEAKER) (test 10.92 K/ L 1.56-6.13 pfau=107) LYMPHOCYTES ABSOLUTE COUNT (BEAKER) (test 1.06 K/ L 1.18-3.74 gope=979) MONOCYTES ABSOLUTE COUNT (BEAKER) (test 0.84 K/ L 0.24-0.36 rzfi=220) EOSINOPHILS ABSOLUTE COUNT (BEAKER) (test 0.31 K/ L 0.04-0.36 wcnc=423) BASOPHILS ABSOLUTE COUNT (BEAKER) (test 0.08 K/ L 0.01-0.08 gvzp=615) IMMATURE GRANULOCYTES-RELATIVE PERCENT (BEAKER) 1 % 0-1 (test vfus=4829) POCT-GLUCOSE [id number] 21:22:00 Test Item Value Reference Range Comments POC-GLUCOSE METER (BEAKER) 209 mg/dL 70-110 TESTED AT [address] (test rzri=1665) [place] [address] POCT-GLUCOSE [id number] 17:40:00 Test Item Value Reference Range Comments POC-GLUCOSE METER (BEAKER) 213 mg/dL 70-110 TESTED AT [address] (test ryhp=3997) [place] [address] POCT-GLUCOSE [id number] 12:28:00 Test Item Value Reference Range Comments POC-GLUCOSE METER (BEAKER) 298 mg/dL 70-110 TESTED AT [address] (test vvft=1032) [place] [address] BLOOD [id number] 11:01:00 Test Item Value Reference Range Comments CULTURE (BEAKER) (test pvbg=3236) No growth in 5 days POCT-GLUCOSE [id number] 08:43:00 Test Item Value Reference Range Comments POC-GLUCOSE METER (BEAKER) 147 mg/dL 70-110 TESTED AT [address] (test akut=8029) [place] [address] CBC W/PLT COUNT & AUTO [id number] 07:17:00 Test Item Value Reference Range Comments WHITE BLOOD CELL COUNT (BEAKER) (test kjdi=593) 12.1 K/ L 3.5-10.5 RED BLOOD CELL COUNT (BEAKER) (test hhmz=085) 2.54 M/ L 3.93-5.22 HEMOGLOBIN (BEAKER) (test tcps=337) 6.9 GM/DL 11.2-15.7 HEMATOCRIT (BEAKER) (test bjxk=531) 24.0 % 34.1-44.9 MEAN CORPUSCULAR VOLUME (BEAKER) (test qzho=691) 94.5 fL 79.4-94.8 MEAN CORPUSCULAR HEMOGLOBIN (BEAKER) (test 27.2 pg 25.6-32.2 nuoo=258) MEAN CORPUSCULAR HEMOGLOBIN CONC (BEAKER) (test 28.8 GM/DL 32.2-35.5 cufm=718) RED CELL DISTRIBUTION WIDTH (BEAKER) (test 14.9 % 11.7-14.4 duqx=677) PLATELET COUNT (BEAKER) (test eaab=642) 253 K/CU MM 150-450 MEAN PLATELET VOLUME (BEAKER) (test khfw=049) 10.0 fL 9.4-12.3 NUCLEATED RED BLOOD CELLS (BEAKER) (test 0 /100 WBC 0-0 hzja=496) NEUTROPHILS RELATIVE PERCENT (BEAKER) (test 83 % bkxj=399) LYMPHOCYTES RELATIVE PERCENT (BEAKER) (test 7 % lcgd=205) MONOCYTES RELATIVE PERCENT (BEAKER) (test 6 % lgls=019) EOSINOPHILS RELATIVE PERCENT (BEAKER) (test 3 % udkq=482) BASOPHILS RELATIVE PERCENT (BEAKER) (test 1 % gdcm=203) NEUTROPHILS ABSOLUTE COUNT (BEAKER) (test 10.04 K/ L 1.56-6.13 pmpb=574) LYMPHOCYTES ABSOLUTE COUNT (BEAKER) (test 0.88 K/ L 1.18-3.74 mfdp=390) MONOCYTES ABSOLUTE COUNT (BEAKER) (test 0.66 K/ L 0.24-0.36 nnby=748) EOSINOPHILS ABSOLUTE COUNT (BEAKER) (test 0.34 K/ L 0.04-0.36 yfia=375) BASOPHILS ABSOLUTE COUNT (BEAKER) (test 0.09 K/ L 0.01-0.08 odjf=975) IMMATURE GRANULOCYTES-RELATIVE PERCENT (BEAKER) 1 % 0-1 (test sddk=9783) BASIC METABOLIC [id number] 07:02:00 Test Item Value Reference Range Comments SODIUM (BEAKER) (test 134 meq/L 136-145 zvgr=292) POTASSIUM (BEAKER) (test 4.2 meq/L 3.5-5.1 Specimen slightly ewwv=718) hemolyzed CHLORIDE (BEAKER) (test 99 meq/L 98-107 hqqh=052) CO2 (BEAKER) (test 25 meq/L 22-29 ugzi=550) BLOOD UREA NITROGEN 29 mg/dL 7-21 (BEAKER) (test bhja=150) CREATININE (BEAKER) (test 4.76 mg/dL 0.57-1.25 Specimen slightly wuzv=903) hemolyzed GLUCOSE RANDOM (BEAKER) 116 mg/dL 70-105 (test rngx=295) CALCIUM (BEAKER) (test 8.6 mg/dL 8.4-10.2 sacn=542) EGFR (BEAKER) (test 11 mL/min/1.73 sq m ESTIMATED GFR IS NOT ctbg=7475) ACCURATE CREATININE CLEARANCE IN PREDICTING GLOMERULAR FILTRATION RATE. ESTIMATED GFR IS NOT APPLICABLE FOR DIALYSIS PATIENTS. BLOOD [id number] 11:01:00 Test Item Value Reference Range Comments CULTURE (BEAKER) (test omaz=9708) No growth in 5 days MR, EXTREMITY, LOWER, JOINT, WITHOUT CONTRAST, [id number] 09:05:00Reason for exam:->For hip painFINAL REPORT Indication: [...] MDReport Verified Date/Time: 12/02/2018 09:05:25 Reading Location: [facility] B1 [id number] Ortho Consult Reading Room Electronically signed by: JAYSON SHORT M.D. on 2018 09:05 AMHEMOGLOBIN AND [id number] 08:39:00 Test Item Value Reference Range Comments HEMOGLOBIN (BEAKER) (test joop=166) 7.2 GM/DL 11.2-15.7 HEMATOCRIT (BEAKER) (test ulyg=709) 24.1 % 34.1-44.9 POCT-GLUCOSE [id number] 07:54:00 Test Item Value Reference Range Comments POC-GLUCOSE METER (BEAKER) 186 mg/dL 70-110 TESTED AT [facility] [address] [facility] (test tfhs=5686) [facility] [address] CBC W/PLT COUNT & AUTO [id number] 07:22:00 Test Item Value Reference Range Comments WHITE BLOOD CELL COUNT (BEAKER) (test myzv=233) 13.3 K/ L 3.5-10.5 RED BLOOD CELL COUNT (BEAKER) (test qwtt=039) 2.47 M/ L 3.93-5.22 HEMOGLOBIN (BEAKER) (test grcu=020) 6.8 GM/DL 11.2-15.7 HEMATOCRIT (BEAKER) (test bkpd=383) 23.2 % 34.1-44.9 MEAN CORPUSCULAR VOLUME (BEAKER) (test greu=642) 93.9 fL 79.4-94.8 MEAN CORPUSCULAR HEMOGLOBIN (BEAKER) (test 27.5 pg 25.6-32.2 qrsd=557) MEAN CORPUSCULAR HEMOGLOBIN CONC (BEAKER) (test 29.3 GM/DL 32.2-35.5 qdqj=417) RED CELL DISTRIBUTION WIDTH (BEAKER) (test 15.2 % 11.7-14.4 fiml=633) PLATELET COUNT (BEAKER) (test gpit=628) 304 K/CU MM 150-450 MEAN PLATELET VOLUME (BEAKER) (test yzok=929) 9.9 fL 9.4-12.3 NUCLEATED RED BLOOD CELLS (BEAKER) (test 0 /100 WBC 0-0 pqaz=468) NEUTROPHILS RELATIVE PERCENT (BEAKER) (test 84 % dvtv=253) LYMPHOCYTES RELATIVE PERCENT (BEAKER) (test 7 % jkqc=973) MONOCYTES RELATIVE PERCENT (BEAKER) (test 5 % bbrt=763) EOSINOPHILS RELATIVE PERCENT (BEAKER) (test 3 % gxok=332) BASOPHILS RELATIVE PERCENT (BEAKER) (test 0 % vcgu=688) NEUTROPHILS ABSOLUTE COUNT (BEAKER) (test 11.17 K/ L 1.56-6.13 xspx=638) LYMPHOCYTES ABSOLUTE COUNT (BEAKER) (test 0.95 K/ L 1.18-3.74 miht=574) MONOCYTES ABSOLUTE COUNT (BEAKER) (test 0.70 K/ L 0.24-0.36 ifnd=223) EOSINOPHILS ABSOLUTE COUNT (BEAKER) (test 0.37 K/ L 0.04-0.36 dfbi=473) BASOPHILS ABSOLUTE COUNT (BEAKER) (test 0.04 K/ L 0.01-0.08 zxut=276) IMMATURE GRANULOCYTES-RELATIVE PERCENT (BEAKER) 1 % 0-1 (test woab=0945) POCT-GLUCOSE [id number] 07:10:00 Test Item Value Reference Range Comments POC-GLUCOSE METER (BEAKER) 177 mg/dL 70-110 TESTED AT [facility] [address] [facility] (test cqbo=2165) [facility] [address] BASIC METABOLIC [id number] 06:52:00 Test Item Value Reference Range Comments SODIUM (BEAKER) (test 137 meq/L 136-145 hcod=594) POTASSIUM (BEAKER) (test 4.0 meq/L 3.5-5.1 efru=199) CHLORIDE (BEAKER) (test 97 meq/L 98-107 qzym=072) CO2 (BEAKER) (test 30 meq/L 22-29 lfnp=305) BLOOD UREA NITROGEN 46 mg/dL 7-21 (BEAKER) (test bzyj=341) CREATININE (BEAKER) (test 6.47 mg/dL 0.57-1.25 tbka=237) GLUCOSE RANDOM (BEAKER) 148 mg/dL 70-105 (test ydtz=234) CALCIUM (BEAKER) (test 9.1 mg/dL 8.4-10.2 hjkh=694) EGFR (BEAKER) (test 8 mL/min/1.73 sq m ESTIMATED GFR IS NOT syxo=2892) ACCURATE CREATININE CLEARANCE IN PREDICTING GLOMERULAR FILTRATION RATE. ESTIMATED GFR IS NOT APPLICABLE FOR DIALYSIS PATIENTS. VANCOMYCIN LEVEL, [id number] 06:43:00 Test Item Value Reference Range Comments VANCOMYCIN RANDOM (BEAKER) (test ysid=523) 19.0 ug/mL Reference Range: No [id number] 06:25:00 Test Item Value Reference Range Comments PROTIME (BEAKER) (test giam=374) 14.1 seconds 11.7-14.7 INR (BEAKER) (test kwei=099) 1.1 <=5.9 PARTIAL THROMBOPLASTIN TIME (BEAKER) (test 39.6 seconds 22.5-36.0 mnuq=942) RECOMMENDED COUMADIN/WARFARIN INR THERAPY RANGESSTANDARD DOSE: 2.0 - 3.0 Includes: PROPHYLAXIS forvenous thrombosis, systemic embolization; TREATMENT for venous thrombosis and/or pulmonary embolus.HIGH RISK: Target INR is 2.5-3.5 for patients with mechanical heart valves.POCT-GLUCOSE [id number] 23:37:00 Test Item Value Reference Range Comments POC-GLUCOSE METER (BEAKER) 258 mg/dL 70-110 TESTED AT [address] (test sixr=5543) [place] [address] POCT-GLUCOSE [id number] 12:31:00 Test Item Value Reference Range Comments POC-GLUCOSE METER (BEAKER) 184 mg/dL 70-110 TESTED AT [address] (test qeea=4774) [place] [address] BASIC METABOLIC [id number] 12:27:00 Test Item Value Reference Range Comments SODIUM (BEAKER) (test 136 meq/L 136-145 xkir=442) POTASSIUM (BEAKER) (test 4.0 meq/L 3.5-5.1 zksw=097) CHLORIDE (BEAKER) (test 99 meq/L 98-107 cmzf=444) CO2 (BEAKER) (test 26 meq/L 22-29 ilfl=189) BLOOD UREA NITROGEN 29 mg/dL 7-21 (BEAKER) (test juaz=728) CREATININE (BEAKER) (test 4.92 mg/dL 0.57-1.25 tobh=513) GLUCOSE RANDOM (BEAKER) 129 mg/dL 70-105 (test hpzc=724) CALCIUM (BEAKER) (test 9.0 mg/dL 8.4-10.2 styz=430) EGFR (BEAKER) (test 11 mL/min/1.73 sq m ESTIMATED GFR IS NOT weff=0181) ACCURATE CREATININE CLEARANCE IN PREDICTING GLOMERULAR FILTRATION RATE. ESTIMATED GFR IS NOT APPLICABLE FOR DIALYSIS PATIENTS. CBC W/PLT COUNT & AUTO [id number] 12:20:00 Test Item Value Reference Range Comments WHITE BLOOD CELL COUNT (BEAKER) (test wlok=007) 14.6 K/ L 3.5-10.5 RED BLOOD CELL COUNT (BEAKER) (test kexm=382) 2.69 M/ L 3.93-5.22 HEMOGLOBIN (BEAKER) (test bkhl=335) 7.4 GM/DL 11.2-15.7 HEMATOCRIT (BEAKER) (test ggup=484) 25.1 % 34.1-44.9 MEAN CORPUSCULAR VOLUME (BEAKER) (test fzvx=386) 93.3 fL 79.4-94.8 MEAN CORPUSCULAR HEMOGLOBIN (BEAKER) (test 27.5 pg 25.6-32.2 htqu=260) MEAN CORPUSCULAR HEMOGLOBIN CONC (BEAKER) (test 29.5 GM/DL 32.2-35.5 wbit=457) RED CELL DISTRIBUTION WIDTH (BEAKER) (test 15.5 % 11.7-14.4 luem=226) PLATELET COUNT (BEAKER) (test ykij=911) 295 K/CU MM 150-450 MEAN PLATELET VOLUME (BEAKER) (test ctgg=986) 9.8 fL 9.4-12.3 NUCLEATED RED BLOOD CELLS (BEAKER) (test 0 /100 WBC 0-0 gwvb=936) NEUTROPHILS RELATIVE PERCENT (BEAKER) (test 83 % nmlj=689) LYMPHOCYTES RELATIVE PERCENT (BEAKER) (test 8 % msbc=854) MONOCYTES RELATIVE PERCENT (BEAKER) (test 6 % htlg=085) EOSINOPHILS RELATIVE PERCENT (BEAKER) (test 2 % ivik=446) BASOPHILS RELATIVE PERCENT (BEAKER) (test 1 % conv=334) NEUTROPHILS ABSOLUTE COUNT (BEAKER) (test 12.12 K/ L 1.56-6.13 orpi=990) LYMPHOCYTES ABSOLUTE COUNT (BEAKER) (test 1.19 K/ L 1.18-3.74 zcxz=840) MONOCYTES ABSOLUTE COUNT (BEAKER) (test 0.81 K/ L 0.24-0.36 lwkd=987) EOSINOPHILS ABSOLUTE COUNT (BEAKER) (test 0.31 K/ L 0.04-0.36 ftyk=515) BASOPHILS ABSOLUTE COUNT (BEAKER) (test 0.07 K/ L 0.01-0.08 cxuv=405) IMMATURE GRANULOCYTES-RELATIVE PERCENT (BEAKER) 1 % 0-1 (test qjul=2324) RAD, HIP, 1 VIEW, [id number] 11:34:00Reason for exam:->R hip painShould this be [...] MDReport Verified Date/Time: 2018 11:34:51 Reading Location: [facility] Radiology Reading Room POCT- GLUCOSE [id number] 08:01:00 Test Item Value Reference Range Comments POC-GLUCOSE METER (BERUSSELL) 189 mg/dL 70-110 TESTED AT [facility] [address] [facility] (test omcj=7596) [facility] [address] VANCOMYCIN LEVEL, [id number] 06:44:00 Test Item Value Reference Range Comments VANCOMYCIN RANDOM (BEAKER) (test mvox=749) 19.8 ug/mL Reference Range: No NormalsGENTAMICIN LEVEL, [id number] 21:58:00 Test Item Value Reference Range Comments GENTAMICIN TROUGH (BEAKER) (test qbwq=862) 1.5 ug/mL 0.5-1.0 Dosing Target Level (mcg/mL)1-1.5 mg/kg q 8-12 HR 0.5- 1.03-7 mg/kg q 24 HR <0.5Before gent dosePOCT-GLUCOSE [id number] 20:39:00 Test Item Value Reference Range Comments POC-GLUCOSE METER (BEAKER) 229 mg/dL 70-110 TESTED AT [address] (test soiu=2824) [facility] [address] POCT-GLUCOSE [id number] 20:02:00 Test Item Value Reference Range Comments POC-GLUCOSE METER (BEAKER) 251 mg/dL 70-110 TESTED AT [address] (test wegt=9002) [facility] [address] POCT-GLUCOSE [id number] 13:49:00 Test Item Value Reference Range Comments POC-GLUCOSE METER (BEAKER) 211 mg/dL 70-110 TESTED AT [address] (test cvar=8829) [place] [id number] POCT-GLUCOSE [id number] 08:02:00 Test Item Value Reference Range Comments POC-GLUCOSE METER (BEAKER) 182 mg/dL 70-110 TESTED AT [address] (test muhw=3898) [facility] [address] BASIC METABOLIC [id number] 07:28:00 Test Item Value Reference Range Comments SODIUM (BEAKER) (test 138 meq/L 136-145 zqle=937) POTASSIUM (BEAKER) (test 4.1 meq/L 3.5-5.1 qeuv=381) CHLORIDE (BEAKER) (test 101 meq/L 98-107 scgm=682) CO2 (BEAKER) (test 26 meq/L 22-29 nfmw=280) BLOOD UREA NITROGEN 42 mg/dL 7-21 (BEAKER) (test hnid=881) CREATININE (BEAKER) (test 6.85 mg/dL 0.57-1.25 jdlu=163) GLUCOSE RANDOM (BEAKER) 138 mg/dL 70-105 (test qcnh=998) CALCIUM (BEAKER) (test 8.9 mg/dL 8.4-10.2 ptyn=581) EGFR (BEAKER) (test 7 mL/min/1.73 sq m ESTIMATED GFR IS NOT lhff=2205) ACCURATE CREATININE CLEARANCE IN PREDICTING GLOMERULAR FILTRATION RATE. ESTIMATED GFR IS NOT APPLICABLE FOR DIALYSIS PATIENTS. VANCOMYCIN LEVEL, [id number] 07:07:00 Test Item Value Reference Range Comments VANCOMYCIN RANDOM (BEAKER) (test shaz=857) 25.1 ug/mL Reference Range: No NormalsCBC W/PLT COUNT & AUTO [id number] 07: 02:00 Test Item Value Reference Range Comments WHITE BLOOD CELL COUNT (BEAKER) (test rsrm=800) 15.1 K/ L 3.5-10.5 RED BLOOD CELL COUNT (BEAKER) (test ftko=902) 2.67 M/ L 3.93-5.22 HEMOGLOBIN (BEAKER) (test xaud=557) 7.4 GM/DL 11.2-15.7 HEMATOCRIT (BEAKER) (test btxc=783) 24.8 % 34.1-44.9 MEAN CORPUSCULAR VOLUME (BEAKER) (test ucyh=172) 92.9 fL 79.4-94.8 MEAN CORPUSCULAR HEMOGLOBIN (BEAKER) (test 27.7 pg 25.6-32.2 nppz=161) MEAN CORPUSCULAR HEMOGLOBIN CONC (BEAKER) (test 29.8 GM/DL 32.2-35.5 jaud=533) RED CELL DISTRIBUTION WIDTH (BEAKER) (test 15.9 % 11.7-14.4 xvwv=058) PLATELET COUNT (BEAKER) (test tnvu=123) 303 K/CU MM 150-450 MEAN PLATELET VOLUME (BEAKER) (test jccf=182) 10.1 fL 9.4-12.3 NUCLEATED RED BLOOD CELLS (BEAKER) (test 0 /100 WBC 0-0 zhrj=508) NEUTROPHILS RELATIVE PERCENT (BEAKER) (test 85 % bizw=225) LYMPHOCYTES RELATIVE PERCENT (BEAKER) (test 6 % tkhz=228) MONOCYTES RELATIVE PERCENT (BEAKER) (test 6 % oetk=176) EOSINOPHILS RELATIVE PERCENT (BEAKER) (test 2 % pxdh=381) BASOPHILS RELATIVE PERCENT (BEAKER) (test 0 % cnas=127) NEUTROPHILS ABSOLUTE COUNT (BEAKER) (test 12.90 K/ L 1.56-6.13 dsoi=814) LYMPHOCYTES ABSOLUTE COUNT (BEAKER) (test 0.85 K/ L 1.18-3.74 jrzv=311) MONOCYTES ABSOLUTE COUNT (BEAKER) (test 0.97 K/ L 0.24-0.36 fruq=898) EOSINOPHILS ABSOLUTE COUNT (BEAKER) (test 0.25 K/ L 0.04-0.36 nwtr=406) BASOPHILS ABSOLUTE COUNT (BEAKER) (test 0.03 K/ L 0.01-0.08 hfox=067) IMMATURE GRANULOCYTES-RELATIVE PERCENT (BEAKER) 1 % 0-1 (test mtxc=6164) POCT-GLUCOSE [id number] 21:24:00 Test Item Value Reference Range Comments POC-GLUCOSE METER (BEAKER) 189 mg/dL 70-110 TESTED AT [address] (test yibx=8482) [place] [id number] POCT-GLUCOSE [id number] 17:50:00 Test Item Value Reference Range Comments POC-GLUCOSE METER (BEAKER) 215 mg/dL 70-110 TESTED AT [address] (test apmi=2118) [place] [id number] POCT-GLUCOSE [id number] 13:23:00 Test Item Value Reference Range Comments POC-GLUCOSE METER (BEAKER) 270 mg/dL 70-110 TESTED AT [address] (test yvqt=2878) [place] [id number] POCT-GLUCOSE [id number] 08:37:00 Test Item Value Reference Range Comments POC-GLUCOSE METER (BEAKER) 138 mg/dL 70-110 TESTED AT [address] (test qpwb=7240) [facility] [address] BASIC METABOLIC [id number] 06:54:00 Test Item Value Reference Range Comments SODIUM (BEAKER) (test 138 meq/L 136-145 htqh=902) POTASSIUM (BEAKER) (test 3.9 meq/L 3.5-5.1 ndlu=322) CHLORIDE (BEAKER) (test 100 meq/L 98-107 cjmr=043) CO2 (BEAKER) (test 26 meq/L 22-29 ngks=804) BLOOD UREA NITROGEN 27 mg/dL 7-21 (BEAKER) (test xemk=347) CREATININE (BEAKER) (test 5.01 mg/dL 0.57-1.25 jwki=327) GLUCOSE RANDOM (BEAKER) 117 mg/dL 70-105 (test rqvt=972) CALCIUM (BEAKER) (test 8.6 mg/dL 8.4-10.2 tktd=537) EGFR (BEAKER) (test 11 mL/min/1.73 sq m ESTIMATED GFR IS NOT tvgl=6778) ACCURATE CREATININE CLEARANCE IN PREDICTING GLOMERULAR FILTRATION RATE. ESTIMATED GFR IS NOT APPLICABLE FOR DIALYSIS PATIENTS. [id number] 06:53:00 Test Item Value Reference Range Comments PHOSPHORUS (BEAKER) (test wqzt=699) 4.1 mg/dL 2.3-4.7 [id number] 06:53:00 Test Item Value Reference Range Comments MAGNESIUM (BEAKER) (test dmgz=548) 1.9 mg/dL 1.6-2.6 VANCOMYCIN LEVEL, [id number] 06:51:00 Test Item Value Reference Range Comments VANCOMYCIN RANDOM (BEAKER) (test kxaw=324) 27.5 ug/mL Reference Range: No NormalsCBC W/PLT COUNT & AUTO [id number] 06: 30:00 Test Item Value Reference Range Comments WHITE BLOOD CELL COUNT (BEAKER) (test plpd=093) 14.6 K/ L 3.5-10.5 RED BLOOD CELL COUNT (BEAKER) (test frel=056) 2.82 M/ L 3.93-5.22 HEMOGLOBIN (BEAKER) (test enqf=013) 7.8 GM/DL 11.2-15.7 HEMATOCRIT (BEAKER) (test dkuo=207) 25.6 % 34.1-44.9 MEAN CORPUSCULAR VOLUME (BEAKER) (test vstr=814) 90.8 fL 79.4-94.8 MEAN CORPUSCULAR HEMOGLOBIN (BEAKER) (test 27.7 pg 25.6-32.2 ffek=782) MEAN CORPUSCULAR HEMOGLOBIN CONC (BEAKER) (test 30.5 GM/DL 32.2-35.5 amjv=582) RED CELL DISTRIBUTION WIDTH (BEAKER) (test 15.8 % 11.7-14.4 ykky=210) PLATELET COUNT (BEAKER) (test mbqb=440) 266 K/CU MM 150-450 MEAN PLATELET VOLUME (BEAKER) (test qcql=308) 10.2 fL 9.4-12.3 NUCLEATED RED BLOOD CELLS (BEAKER) (test 0 /100 WBC 0-0 kovf=148) NEUTROPHILS RELATIVE PERCENT (BEAKER) (test 82 % ngjs=606) LYMPHOCYTES RELATIVE PERCENT (BEAKER) (test 7 % fqce=945) MONOCYTES RELATIVE PERCENT (BEAKER) (test 9 % nxud=912) EOSINOPHILS RELATIVE PERCENT (BEAKER) (test 1 % txze=440) BASOPHILS RELATIVE PERCENT (BEAKER) (test 0 % kwvi=719) NEUTROPHILS ABSOLUTE COUNT (BEAKER) (test 11.86 K/ L 1.56-6.13 qmxc=013) LYMPHOCYTES ABSOLUTE COUNT (BEAKER) (test 1.00 K/ L 1.18-3.74 jdnz=509) MONOCYTES ABSOLUTE COUNT (BEAKER) (test 1.24 K/ L 0.24-0.36 jhcb=699) EOSINOPHILS ABSOLUTE COUNT (BEAKER) (test 0.21 K/ L 0.04-0.36 agig=844) BASOPHILS ABSOLUTE COUNT (BEAKER) (test 0.04 K/ L 0.01-0.08 pqyo=242) IMMATURE GRANULOCYTES-RELATIVE PERCENT (BEAKER) 1 % 0-1 (test ygfh=1865) POCT-GLUCOSE [id number] 00:41:00 Test Item Value Reference Range Comments POC-GLUCOSE METER (BEAKER) 139 mg/dL 70-110 TESTED AT [address] (test evjz=5932) [place] [address] HEMOGLOBIN AND [id number] 23:23:00 Test Item Value Reference Range Comments HEMOGLOBIN (BEAKER) (test sqsx=604) 9.0 GM/DL 11.2-15.7 HEMATOCRIT (BEAKER) (test ztuq=842) 29.7 % 34.1-44.9 Check after HD after she receives her blood transfusionPOCT-GLUCOSE [id number] 17:53:00 Test Item Value Reference Range Comments POC-GLUCOSE METER (BEAKER) 177 mg/dL 70-110 TESTED AT [address] (test xxku=2681) [place] [address] POCT-GLUCOSE [id number] 13:03:00 Test Item Value Reference Range Comments POC-GLUCOSE METER (BEAKER) 171 mg/dL 70-110 TESTED AT [address] (test mwgh=5416) [place] [address] BLOOD [id number] 09:44:00 Test Item Value Reference Range Comments CULTURE (BEAKER) (test METHICILLIN RESISTANT From Aerobic And uvfs=4654) STAPHYLOCOCCUS AUREUS Anaerobic Bottles Methicillin resistant Staphylococcus aureus Clindamycin (test code=10) Erythromycin (test code=4) Linezolid (test code=40) Nitrofurantoin (test code=23) Oxacillin (test code=14) Rifampin (test code=43) Tetracycline (test code=2) Trimethoprim + Sulfamethoxazole (test code=47) Vancomycin (test code=13) CULTURE (BEAKER) (test From Aerobic Bottle iwbb=4216) Only Methicillin resistant Staphylococcus aureusSame as first isolate. GRAM STAIN RESULT From aerobic and (BEAKER) (test hteq=2842) anaerobic bottles: gram positive cocci in clusters CT, [id number] 09:28:00FINAL REPORT ABDOMINAL AND PELVIS CT DATED [...] Aguilera Verified Date/Time: 2017 09:28:06 Reading Location: [address] Body Reading Room PROTHROMBIN [id number] 09:18:00 Test Item Value Reference Range Comments PROTIME (BEAKER) (test wxbe=878) 14.5 seconds 11.7-14.7 INR (BEAKER) (test oqhf=347) 1.1 <=5.9 RECOMMENDED COUMADIN/WARFARIN INR THERAPY RANGESSTANDARD DOSE: 2.0 - 3.0 Includes: PROPHYLAXIS forvenous thrombosis, systemic embolization; TREATMENT for venous thrombosis and/or pulmonary embolus.HIGH RISK: Target INR is 2.5-3.5 for patients with mechanical heart valves.HEMOGLOBIN AND [id number] 09 :08:00 Test Item Value Reference Range Comments HEMOGLOBIN (BEAKER) (test ujtn=158) 7.0 GM/DL 11.2-15.7 HEMATOCRIT (BEAKER) (test mijs=925) 23.2 % 34.1-44.9 BASIC METABOLIC [id number] 06:55:00 Test Item Value Reference Range Comments SODIUM (BEAKER) (test 137 meq/L 136-145 mwql=053) POTASSIUM (BEAKER) (test 4.4 meq/L 3.5-5.1 lqtf=808) CHLORIDE (BEAKER) (test 101 meq/L 98-107 fuzi=889) CO2 (BEAKER) (test 23 meq/L 22-29 hluo=286) BLOOD UREA NITROGEN 56 mg/dL 7-21 (BEAKER) (test sjyw=451) CREATININE (BEAKER) (test 8.16 mg/dL 0.57-1.25 zfwo=343) GLUCOSE RANDOM (BEAKER) 131 mg/dL 70-105 (test slmb=048) CALCIUM (BEAKER) (test 8.4 mg/dL 8.4-10.2 djcy=951) EGFR (BEAKER) (test 6 mL/min/1.73 sq m ESTIMATED GFR IS NOT ynqi=6781) ACCURATE CREATININE CLEARANCE IN PREDICTING GLOMERULAR FILTRATION RATE. ESTIMATED GFR IS NOT APPLICABLE FOR DIALYSIS PATIENTS. [id number] 06:40:00 Test Item Value Reference Range Comments PARTIAL THROMBOPLASTIN TIME (BEAKER) (test 91.0 seconds 22.5-36.0 qirz=123) CBC W/PLT COUNT & AUTO [id number] 06:33:00 Test Item Value Reference Range Comments WHITE BLOOD CELL COUNT (BEAKER) (test otcg=108) 16.6 K/ L 3.5-10.5 RED BLOOD CELL COUNT (BEAKER) (test scbr=472) 2.31 M/ L 3.93-5.22 HEMOGLOBIN (BEAKER) (test kgyk=918) 6.4 GM/DL 11.2-15.7 HEMATOCRIT (BEAKER) (test ftgr=993) 21.3 % 34.1-44.9 MEAN CORPUSCULAR VOLUME (BEAKER) (test dqjw=615) 92.2 fL 79.4-94.8 MEAN CORPUSCULAR HEMOGLOBIN (BEAKER) (test 27.7 pg 25.6-32.2 awyk=320) MEAN CORPUSCULAR HEMOGLOBIN CONC (BEAKER) (test 30.0 GM/DL 32.2-35.5 aacy=837) RED CELL DISTRIBUTION WIDTH (BEAKER) (test 15.0 % 11.7-14.4 mmbk=157) PLATELET COUNT (BEAKER) (test pthq=239) 276 K/CU MM 150-450 MEAN PLATELET VOLUME (BEAKER) (test luqh=631) 10.4 fL 9.4-12.3 NUCLEATED RED BLOOD CELLS (BEAKER) (test 0 /100 WBC 0-0 xvgk=606) NEUTROPHILS RELATIVE PERCENT (BEAKER) (test 82 % lkbi=023) LYMPHOCYTES RELATIVE PERCENT (BEAKER) (test 7 % kqkp=088) MONOCYTES RELATIVE PERCENT (BEAKER) (test 8 % zttp=733) EOSINOPHILS RELATIVE PERCENT (BEAKER) (test 1 % feym=938) BASOPHILS RELATIVE PERCENT (BEAKER) (test 0 % xoof=527) NEUTROPHILS ABSOLUTE COUNT (BEAKER) (test 13.67 K/ L 1.56-6.13 mjlh=295) LYMPHOCYTES ABSOLUTE COUNT (BEAKER) (test 1.14 K/ L 1.18-3.74 hqky=499) MONOCYTES ABSOLUTE COUNT (BEAKER) (test 1.38 K/ L 0.24-0.36 hrec=645) EOSINOPHILS ABSOLUTE COUNT (BEAKER) (test 0.08 K/ L 0.04-0.36 towk=748) BASOPHILS ABSOLUTE COUNT (BEAKER) (test 0.06 K/ L 0.01-0.08 ivvk=144) IMMATURE GRANULOCYTES-RELATIVE PERCENT (BEAKER) 2 % 0-1 (test rmls=7129) POCT-GLUCOSE [id number] 21:47:00 Test Item Value Reference Range Comments POC-GLUCOSE METER (BEAKER) 173 mg/dL 70-110 TESTED AT [address] (test iiki=6985) [place] [address] [id number] 18:27:00 Test Item Value Reference Range Comments PARTIAL THROMBOPLASTIN TIME (BEAKER) (test 78.5 seconds 22.5-36.0 rvxq=566) POCT-GLUCOSE [id number] 13:23:00 Test Item Value Reference Range Comments POC-GLUCOSE METER (BEAKER) 176 mg/dL 70-110 TESTED AT [address] (test vgyg=0934) [place] [address] [id number] 11:24:00 Test Item Value Reference Range Comments PARTIAL THROMBOPLASTIN TIME (BEAKER) (test 83.7 seconds 22.5-36.0 dmgf=893) POCT-GLUCOSE [id number] 08:13:00 Test Item Value Reference Range Comments POC-GLUCOSE METER (BEAKER) 189 mg/dL 70-110 TESTED AT [address] (test tlml=2498) [place] [address] BASIC METABOLIC [id number] 06:03:00 Test Item Value Reference Range Comments SODIUM (BEAKER) (test 135 meq/L 136-145 xvhv=613) POTASSIUM (BEAKER) (test 3.9 meq/L 3.5-5.1 osny=938) CHLORIDE (BEAKER) (test 100 meq/L 98-107 rukl=108) CO2 (BEAKER) (test 23 meq/L 22-29 pwgz=023) BLOOD UREA NITROGEN 41 mg/dL 7-21 (BEAKER) (test iwwg=017) CREATININE (BEAKER) (test 6.33 mg/dL 0.57-1.25 ftrp=806) GLUCOSE RANDOM (BEAKER) 154 mg/dL 70-105 (test icor=605) CALCIUM (BEAKER) (test 8.8 mg/dL 8.4-10.2 heip=558) EGFR (BEAKER) (test 8 mL/min/1.73 sq m ESTIMATED GFR IS NOT sgcb=4483) ACCURATE CREATININE CLEARANCE IN PREDICTING GLOMERULAR FILTRATION RATE. ESTIMATED GFR IS NOT APPLICABLE FOR DIALYSIS PATIENTS. VANCOMYCIN LEVEL, [id number] 05:41:00 Test Item Value Reference Range Comments VANCOMYCIN RANDOM (BEAKER) (test gwrd=651) 34.9 ug/mL Reference Range: No NormalsCBC W/PLT COUNT & AUTO [id number] 05: 36:00 Test Item Value Reference Range Comments WHITE BLOOD CELL COUNT (BEAKER) (test cqco=057) 15.0 K/ L 3.5-10.5 RED BLOOD CELL COUNT (BEAKER) (test fcbw=614) 2.79 M/ L 3.93-5.22 HEMOGLOBIN (BEAKER) (test tfak=713) 7.6 GM/DL 11.2-15.7 HEMATOCRIT (BEAKER) (test skun=733) 25.8 % 34.1-44.9 MEAN CORPUSCULAR VOLUME (BEAKER) (test ekxj=897) 92.5 fL 79.4-94.8 MEAN CORPUSCULAR HEMOGLOBIN (BEAKER) (test 27.2 pg 25.6-32.2 szqh=581) MEAN CORPUSCULAR HEMOGLOBIN CONC (BEAKER) (test 29.5 GM/DL 32.2-35.5 ouyv=330) RED CELL DISTRIBUTION WIDTH (BEAKER) (test 14.6 % 11.7-14.4 jxtj=319) PLATELET COUNT (BEAKER) (test owue=612) 229 K/CU MM 150-450 MEAN PLATELET VOLUME (BEAKER) (test fsft=540) 10.6 fL 9.4-12.3 NUCLEATED RED BLOOD CELLS (BEAKER) (test 0 /100 WBC 0-0 nbzb=979) NEUTROPHILS RELATIVE PERCENT (BEAKER) (test 85 % eydw=249) LYMPHOCYTES RELATIVE PERCENT (BEAKER) (test 6 % tczb=340) MONOCYTES RELATIVE PERCENT (BEAKER) (test 7 % qhfs=128) EOSINOPHILS RELATIVE PERCENT (BEAKER) (test 1 % euiz=263) BASOPHILS RELATIVE PERCENT (BEAKER) (test 0 % dxwx=065) NEUTROPHILS ABSOLUTE COUNT (BEAKER) (test 12.75 K/ L 1.56-6.13 wnur=690) LYMPHOCYTES ABSOLUTE COUNT (BEAKER) (test 0.92 K/ L 1.18-3.74 zpjr=129) MONOCYTES ABSOLUTE COUNT (BEAKER) (test 1.00 K/ L 0.24-0.36 rsdp=558) EOSINOPHILS ABSOLUTE COUNT (BEAKER) (test 0.17 K/ L 0.04-0.36 spfb=566) BASOPHILS ABSOLUTE COUNT (BEAKER) (test 0.05 K/ L 0.01-0.08 nrfd=004) IMMATURE GRANULOCYTES-RELATIVE PERCENT (BEAKER) 1 % 0-1 (test fnyc=6965) [id number] 05:31:00 Test Item Value Reference Range Comments PARTIAL THROMBOPLASTIN TIME (BEAKER) (test 69.7 seconds 22.5-36.0 qkvh=108) POCT-GLUCOSE [id number] 22:11:00 Test Item Value Reference Range Comments POC-GLUCOSE METER (BEAKER) 175 mg/dL 70-110 TESTED AT [address] (test hvkr=3723) [place] [address] [id number] 20:48:00 Test Item Value Reference Range Comments PARTIAL THROMBOPLASTIN TIME (BEAKER) (test 61.5 seconds 22.5-36.0 ktox=997) [id number] 19:00:00 Test Item Value Reference Range Comments PARTIAL THROMBOPLASTIN TIME (BEAKER) (test > seconds 22.5-36.0 gvst=809) POCT-GLUCOSE [id number] 17:10:00 Test Item Value Reference Range Comments POC-GLUCOSE METER (BEAKER) 211 mg/dL 70-110 TESTED AT [address] (test xhai=3487) [place] [address] POCT-GLUCOSE [id number] 12:54:00 Test Item Value Reference Range Comments POC-GLUCOSE METER (BEAKER) 181 mg/dL 70-110 TESTED AT [address] (test royh=4770) [place] [address] [id number] 11:03:00 Test Item Value Reference Range Comments PARTIAL THROMBOPLASTIN TIME (BEAKER) (test 83.7 seconds 22.5-36.0 wtxt=798) CATHETER TIP [id number] 09:36:00 Test Item Value Reference Range Comments CULTURE (BEAKER) (test llly=9785) No growth POCT-GLUCOSE [id number] 08:14:00 Test Item Value Reference Range Comments POC-GLUCOSE METER (BEAKER) 191 mg/dL 70-110 TESTED AT [address] (test qtsv=1200) [facility] [address] [id number] 03:56:00 Test Item Value Reference Range Comments PARTIAL THROMBOPLASTIN TIME (BEAKER) (test 104.2 seconds 22.5-36.0 nepw=307) POCT-GLUCOSE [id number] 03:23:00 Test Item Value Reference Range Comments POC-GLUCOSE METER (BEAKER) 152 mg/dL 70-110 TESTED AT [address] (test wuvx=0409) [facility] [address] POCT-GLUCOSE [id number] 22:14:00 Test Item Value Reference Range Comments POC-GLUCOSE METER (BEAKER) 193 mg/dL 70-110 TESTED AT [address] (test deqq=9829) [place] [id number] 21:14:00 Test Item Value Reference Range Comments PARTIAL THROMBOPLASTIN TIME (BEAKER) (test 82.5 seconds 22.5-36.0 gsdn=012) POCT-GLUCOSE [id number] 19:35:00 Test Item Value Reference Range Comments POC-GLUCOSE METER (BEAKER) 156 mg/dL 70-110 TESTED AT [address] (test osml=2504) [place] [id number] VANCOMYCIN LEVEL, [id number] 18:48:00 Test Item Value Reference Range Comments VANCOMYCIN RANDOM (BEAKER) (test ebgd=567) 12.6 ug/mL Reference Range: No NormalsPlease draw a random vancomycin level at end of dialysis tomorrow 11/25HEPATITIS B SURFACE [id number] 15:50:00 Test Item Value Reference Range Comments HEPATITIS B SURFACE ANTIGEN (2) (BEAKER) (test Nonreactive Nonreactive fixv=9823) [id number] 15:27:00 Test Item Value Reference Range Comments PARTIAL THROMBOPLASTIN TIME (BEAKER) (test 64.9 seconds 22.5-36.0 rxrw=789) BASIC METABOLIC [id number] 14:04:00 Test Item Value Reference Range Comments SODIUM (BEAKER) (test 134 meq/L 136-145 uole=941) POTASSIUM (BEAKER) (test 3.9 meq/L 3.5-5.1 kjcw=925) CHLORIDE (BEAKER) (test 100 meq/L 98-107 qcdh=010) CO2 (BEAKER) (test 22 meq/L 22-29 bclu=059) BLOOD UREA NITROGEN 68 mg/dL 7-21 (BEAKER) (test ivkj=166) CREATININE (BEAKER) (test 8.46 mg/dL 0.57-1.25 xpuk=264) GLUCOSE RANDOM (BEAKER) 156 mg/dL 70-105 (test lvhy=316) CALCIUM (BEAKER) (test 8.7 mg/dL 8.4-10.2 huct=027) EGFR (BEAKER) (test 6 mL/min/1.73 sq m ESTIMATED GFR IS NOT yuuf=4438) ACCURATE CREATININE CLEARANCE IN PREDICTING GLOMERULAR FILTRATION RATE. ESTIMATED GFR IS NOT APPLICABLE FOR DIALYSIS PATIENTS. [id number] 13:33:00 Test Item Value Reference Range Comments PARTIAL THROMBOPLASTIN TIME (BEAKER) (test 67.9 seconds 22.5-36.0 pads=986) BLOOD [id number] 10:14:00 Test Item Value Reference Range Comments CULTURE (BEAKER) From Aerobic And Anaerobic (test wabd=3693) Bottles Staphylococcus aureusRefer to previous culture ofMethicillin resistant Staphylococcus aureus GRAM STAIN RESULT From aerobic and (BEAKER) (test anaerobic bottles: ynkt=8659) gram positive cocci in clusters BLOOD [id number] 10:12:00 Test Item Value Reference Range Comments CULTURE (BEAKER) (test METHICILLIN RESISTANT From Aerobic And qyyj=2394) STAPHYLOCOCCUS AUREUS Anaerobic Bottles Methicillin resistant Staphylococcus aureus Clindamycin (test code=10) Erythromycin (test code=4) Linezolid (test code=40) Nitrofurantoin (test code=23) Oxacillin (test code=14) Rifampin (test code=43) Tetracycline (test code=2) Trimethoprim + Sulfamethoxazole (test code=47) Vancomycin (test code=13) GRAM STAIN RESULT From aerobic and (BEAKER) (test zvjh=5049) anaerobic bottles: gram positive cocci in clusters POCT-GLUCOSE [id number] 08:05:00 Test Item Value Reference Range Comments POC-GLUCOSE METER (BEAKER) 182 mg/dL 70-110 TESTED AT [facility] [address] [facility] (test kvbg=9173) [facility] [address] [id number] 06:49:00 Test Item Value Reference Range Comments PARTIAL THROMBOPLASTIN TIME (BEAKER) (test 83.0 seconds 22.5-36.0 ohzc=554) CBC W/PLT COUNT & AUTO [id number] 05:45:00 Test Item Value Reference Range Comments WHITE BLOOD CELL COUNT (BEAKER) (test vwmc=663) 8.1 K/ L 3.5-10.5 RED BLOOD CELL COUNT (BEAKER) (test crzk=141) 2.88 M/ L 3.93-5.22 HEMOGLOBIN (BEAKER) (test tquo=773) 8.1 GM/DL 11.2-15.7 HEMATOCRIT (BEAKER) (test zxdg=520) 26.6 % 34.1-44.9 MEAN CORPUSCULAR VOLUME (BEAKER) (test epwo=046) 92.4 fL 79.4-94.8 MEAN CORPUSCULAR HEMOGLOBIN (BEAKER) (test 28.1 pg 25.6-32.2 odwt=234) MEAN CORPUSCULAR HEMOGLOBIN CONC (BEAKER) (test 30.5 GM/DL 32.2-35.5 mybe=148) RED CELL DISTRIBUTION WIDTH (BEAKER) (test 14.9 % 11.7-14.4 vbmp=208) PLATELET COUNT (BEAKER) (test xraq=882) 117 K/CU MM 150-450 MEAN PLATELET VOLUME (BEAKER) (test svps=848) 10.5 fL 9.4-12.3 NUCLEATED RED BLOOD CELLS (BEAKER) (test 0 /100 WBC 0-0 ezio=081) NEUTROPHILS RELATIVE PERCENT (BEAKER) (test 72 % gopl=035) LYMPHOCYTES RELATIVE PERCENT (BEAKER) (test 11 % glrs=619) MONOCYTES RELATIVE PERCENT (BEAKER) (test 10 % pagz=248) EOSINOPHILS RELATIVE PERCENT (BEAKER) (test 5 % rthc=130) BASOPHILS RELATIVE PERCENT (BEAKER) (test 1 % kqpi=703) NEUTROPHILS ABSOLUTE COUNT (BEAKER) (test 5.83 K/ L 1.56-6.13 srzj=887) LYMPHOCYTES ABSOLUTE COUNT (BEAKER) (test 0.92 K/ L 1.18-3.74 kvpn=152) MONOCYTES ABSOLUTE COUNT (BEAKER) (test 0.79 K/ L 0.24-0.36 xtxx=571) EOSINOPHILS ABSOLUTE COUNT (BEAKER) (test 0.41 K/ L 0.04-0.36 hpql=561) BASOPHILS ABSOLUTE COUNT (BEAKER) (test 0.05 K/ L 0.01-0.08 eddi=278) IMMATURE GRANULOCYTES-RELATIVE PERCENT (BEAKER) 1 % 0-1 (test blds=4916) BASIC METABOLIC [id number] 00:23:00 Test Item Value Reference Range Comments SODIUM (BEAKER) (test 134 meq/L 136-145 seon=822) POTASSIUM (BEAKER) (test 3.8 meq/L 3.5-5.1 ines=249) CHLORIDE (BEAKER) (test 100 meq/L 98-107 whwq=993) CO2 (BEAKER) (test 22 meq/L 22-29 bmvn=344) BLOOD UREA NITROGEN 62 mg/dL 7-21 (BEAKER) (test ygek=227) CREATININE (BEAKER) (test 7.39 mg/dL 0.57-1.25 sgex=942) GLUCOSE RANDOM (BEAKER) 155 mg/dL 70-105 (test pnce=196) CALCIUM (BEAKER) (test 8.6 mg/dL 8.4-10.2 tcne=943) EGFR (BEAKER) (test 7 mL/min/1.73 sq m ESTIMATED GFR IS NOT esvn=7069) ACCURATE CREATININE CLEARANCE IN PREDICTING GLOMERULAR FILTRATION RATE. ESTIMATED GFR IS NOT APPLICABLE FOR DIALYSIS PATIENTS. [id number] 00:15:00 Test Item Value Reference Range Comments PHOSPHORUS (BEAKER) (test pmle=073) 3.5 mg/dL 2.3-4.7 [id number] 00:15:00 Test Item Value Reference Range Comments MAGNESIUM (BEAKER) (test exiv=063) 2.3 mg/dL 1.6-2.6 [id number] 00:03:00 Test Item Value Reference Range Comments PARTIAL THROMBOPLASTIN TIME (BEAKER) (test 105.0 seconds 22.5-36.0 ikli=687) POCT-GLUCOSE [id number] 22:14:00 Test Item Value Reference Range Comments POC-GLUCOSE METER (BEAKER) 200 mg/dL 70-110 TESTED AT [facility] [address] [facility] (test zdda=7687) [facility] [address] [id number] 17:22:00 Test Item Value Reference Range Comments PROTIME (BEAKER) (test kecf=223) 13.7 seconds 11.7-14.7 INR (BEAKER) (test xhve=611) 1.0 <=5.9 PARTIAL THROMBOPLASTIN TIME (BEAKER) (test 64.3 seconds 22.5-36.0 ysrt=154) RECOMMENDED COUMADIN/WARFARIN INR THERAPY RANGESSTANDARD DOSE: 2.0 - 3.0 Includes: PROPHYLAXIS forvenous thrombosis, systemic embolization; TREATMENT for venous thrombosis and/or pulmonary embolus.HIGH RISK: Target INR is 2.5-3.5 for patients with mechanical heart valves.Prior to initiating heparinPrior to initiating [id number] 17:22:00 Test Item Value Reference Range Comments PARTIAL THROMBOPLASTIN TIME (BEAKER) (test 64.3 seconds 22.5-36.0 ceud=382) POCT-GLUCOSE [id number] 17:19:00 Test Item Value Reference Range Comments POC-GLUCOSE METER (BEAKER) 169 mg/dL 70-110 TESTED AT [address] (test ndeu=3831) [place] [address] POCT-GLUCOSE [id number] 12:30:00 Test Item Value Reference Range Comments POC-GLUCOSE METER (BEAKER) 235 mg/dL 70-110 TESTED AT [address] (test oscf=0259) [place] [address] [id number] 10:05:00 Test Item Value Reference Range Comments PARTIAL THROMBOPLASTIN TIME (BEAKER) (test 38.6 seconds 22.5-36.0 naif=727) Prior to initiating heparinPOCT-GLUCOSE [id number] 07:40:00 Test Item Value Reference Range Comments POC-GLUCOSE METER (BEAKER) 221 mg/dL 70-110 TESTED AT [address] (test znaj=1810) [place] [address] [id number] 05:58:00 Test Item Value Reference Range Comments MAGNESIUM (BEAKER) (test dvxa=504) 2.1 mg/dL 1.6-2.6 [id number] 05:58:00 Test Item Value Reference Range Comments PHOSPHORUS (BEAKER) (test cxxd=054) 3.5 mg/dL 2.3-4.7 TROPONIN [id number] 05:15:00 Test Item Value Reference Range Comments TROPONIN I (BEAKER) (test vcoa=672) 0.31 ng/mL 0.00-0.03 Troponin I (TnI) levels [...] disease, and persistent tachyarrhythmia.LACTIC ACID, VENOUS, WHOLE [id number] 05:13:00 Test Item Value Reference Range Comments LACTATE BLOOD VENOUS (2) (BEAKER) (test 0.8 mmol/L 0.5-2.2 hglk=7960) BASIC METABOLIC [id number] 05:13:00 Test Item Value Reference Range Comments SODIUM (BEAKER) (test 136 meq/L 136-145 rple=590) POTASSIUM (BEAKER) (test 3.4 meq/L 3.5-5.1 zheg=765) CHLORIDE (BEAKER) (test 99 meq/L 98-107 inbj=597) CO2 (BEAKER) (test 25 meq/L 22-29 tbkp=382) BLOOD UREA NITROGEN 43 mg/dL 7-21 (BEAKER) (test etnu=354) CREATININE (BEAKER) (test 6.21 mg/dL 0.57-1.25 hehp=784) GLUCOSE RANDOM (BEAKER) 175 mg/dL 70-105 (test xjla=288) CALCIUM (BEAKER) (test 8.6 mg/dL 8.4-10.2 iyze=493) EGFR (BEAKER) (test 8 mL/min/1.73 sq m ESTIMATED GFR IS NOT iuep=4508) ACCURATE CREATININE CLEARANCE IN PREDICTING GLOMERULAR FILTRATION RATE. ESTIMATED GFR IS NOT APPLICABLE FOR DIALYSIS PATIENTS. B-TYPE NATRIURETIC FACTOR (BNP)2018-11-24 05:12:00 Test Item Value Reference Range Comments B-TYPE NATRIURETIC PEPTIDE (BEAKER) (test 190 pg/mL 0-100 ybsg=801) CBC W/PLT COUNT & AUTO [id number] 05:12:00 Test Item Value Reference Range Comments WHITE BLOOD CELL COUNT (BEAKER) (test bwhb=331) 12.0 K/ L 3.5-10.5 RED BLOOD CELL COUNT (BEAKER) (test fdqw=674) 2.97 M/ L 3.93-5.22 HEMOGLOBIN (BEAKER) (test vtkg=873) 8.1 GM/DL 11.2-15.7 HEMATOCRIT (BEAKER) (test bhrp=735) 27.6 % 34.1-44.9 MEAN CORPUSCULAR VOLUME (BEAKER) (test ufdg=525) 92.9 fL 79.4-94.8 MEAN CORPUSCULAR HEMOGLOBIN (BEAKER) (test 27.3 pg 25.6-32.2 zzdm=142) MEAN CORPUSCULAR HEMOGLOBIN CONC (BEAKER) (test 29.3 GM/DL 32.2-35.5 vmvl=033) RED CELL DISTRIBUTION WIDTH (BEAKER) (test 15.0 % 11.7-14.4 unou=857) PLATELET COUNT (BEAKER) (test jhnq=535) 115 K/CU MM 150-450 MEAN PLATELET VOLUME (BEAKER) (test xzvu=395) 10.9 fL 9.4-12.3 NUCLEATED RED BLOOD CELLS (BEAKER) (test 0 /100 WBC 0-0 zdat=583) NEUTROPHILS RELATIVE PERCENT (BEAKER) (test 81 % elcq=920) LYMPHOCYTES RELATIVE PERCENT (BEAKER) (test 6 % xqbv=328) MONOCYTES RELATIVE PERCENT (BEAKER) (test 10 % axnk=433) EOSINOPHILS RELATIVE PERCENT (BEAKER) (test 3 % ibuz=135) BASOPHILS RELATIVE PERCENT (BEAKER) (test 1 % yogx=793) NEUTROPHILS ABSOLUTE COUNT (BEAKER) (test 9.67 K/ L 1.56-6.13 pftw=672) LYMPHOCYTES ABSOLUTE COUNT (BEAKER) (test 0.66 K/ L 1.18-3.74 icwr=584) MONOCYTES ABSOLUTE COUNT (BEAKER) (test 1.18 K/ L 0.24-0.36 clan=954) EOSINOPHILS ABSOLUTE COUNT (BEAKER) (test 0.32 K/ L 0.04-0.36 qmpb=464) BASOPHILS ABSOLUTE COUNT (BEAKER) (test 0.06 K/ L 0.01-0.08 llth=157) IMMATURE GRANULOCYTES-RELATIVE PERCENT (BEAKER) 1 % 0-1 (test objo=2444) POCT-GLUCOSE [id number] 22:03:00 Test Item Value Reference Range Comments POC-GLUCOSE METER (BEAKER) 187 mg/dL 70-110 TESTED AT [facility] [address] [facility] (test ghkj=0377) [facility] [address] POCT-GLUCOSE [id number] 18:08:00 Test Item Value Reference Range Comments POC-GLUCOSE METER (BEAKER) 251 mg/dL 70-110 TESTED AT [place] [id number] [facility] (test jdvs=6778) [facility] [address] ANG, CENTRAL VENOUS CATH PLCMT (JUG/FEM) > 5 Y.O. WITH [id number] 16:53 :00Reason for exam:->discussed, guidewire exchange of [...] Connor Verified Date/Time: 11/23/2018 16:53:15 Reading Location: [address] Body Reading Room BLOOD CULTURE IDENTIFICATION [id number] 13:44:00 Test Item Value Reference Range Comments LISTERIA MONOCYTOGENES (test Not detected Not detected gzhm=[id number]) STAPHYLOCOCCUS (test Detected Not detected ziao=6943318) STAPHYLOCOCCUS AUREUS (test Detected Not detected First line therapy: ftly=2291529) VancomycinID consultation strongly encouraged. Staphylococcus aureus DETECTED MecA DETECTEDReference Range: Not Detected STREPTOCOCCUS (test Not detected Not detected azwh=5477164) STREPTOCOCCUS AGALACTIAE Not detected Not detected (GROUP B) (test aunh=8058801) STREPTOCOCCUS PNEUMONIAE Not detected Not detected (test ihts=2378389) STREPTOCOCCUS PYOGENES (GROUP Not detected Not detected A) (test wiwx=5530618) ACINETOBACTER BAUMANNII (test Not detected Not detected susm=9194414) HAEMOPHILUS INFLUENZAE (test Not detected Not detected lgvs=6141564) NEISSERIA MENINGITIDIS (test Not detected Not detected ezvo=2790475) ENTEROBACTERIACEAE (test Not detected Not detected jepe=0728908) ENTEROBACTER CLOACOE COMPLEX Not detected Not detected (test udvc=4464579) KLEBSIELLA OXYTOCA (test Not detected Not detected fuxn=9407641) KLEBSIELLA PNEUMONIAE (test Not detected Not detected iiai=7682) PROTEUS (test etft=1124927) Not detected Not detected SERRATIA MARCESCENS (test Not detected Not detected psex=1716777) SHRUTHI ALBICANS (test Not detected Not detected icxy=3376322) SHRUTHI GLABRATA (test Not detected Not detected gars=0941566) SHRUTHI KRUSEI (test Not detected Not detected cava=1478291) SHRUTHI PARAPSILOSIS (test Not detected Not detected vuui=1303734) SHRUTHI TROPICALIS (test Not detected Not detected rego=9771996) ESCHERICHIA COLI (test Not detected Not detected lxbi=3704107) METHICILLIN-RESISTANCE GENE Detected Not detected (test nied=1838603) VANCOMYCIN-RESISTANCE GENE Not detected (test rwmf=0562838) CARBAPENEM-RESISTANCE GENE Not detected (test nidq=4313611) ENTEROCOCCUS-BEAKER (test Not detected Not detected zswc=6951321) PSEUDOMONAS AERUGINOSA-BEAKER Not detected Not detected (test jzmb=6119395) Other bacteria and resistance markers not targeted by this PCR panel cannot be excluded; therefore clinical correlation and follow up of serology, culture results, and other molecular studies is required. The results are not intended to be used as the sole means for clinical diagnosis or patient management decisions. This sample was tested at the [facility] using the [employer] Blood Culture ID Panel. It is FDA cleared and has been verified and approved by the [facility] for clinical use. This laboratory is CLIA-certified and College ofAmerican Pathologists (CAP)-accredited to perform high complexity testing.VANCOMYCIN LEVEL, [id number] 13:20:00 Test Item Value Reference Range Comments VANCOMYCIN RANDOM (AKER) (test fodn=534) 22.9 ug/mL Reference Range: No NormalsPOCT-GLUCOSE [id number] 13:00:00 Test Item Value Reference Range Comments POC-GLUCOSE METER (AKER) 249 mg/dL 70-110 TESTED AT [facility] [address] (test zlub=8016) [facility] [address] TROPONIN [id number] 10:54:00 Test Item Value Reference Range Comments TROPONIN I (BEAKER) (test ypes=783) 0.30 ng/mL 0.00-0.03 Troponin I (TnI) levels [...] failure, acidosis, acute neurological disease, and persistent tachyarrhythmia.[id number] 10:45:00 Test Item Value Reference Range Comments LIPASE (BEAKER) (test axcq=543) 12 U/L 8-78 RAD, ABDOMEN/KUB, 1 VIEW [id number] 08:42:00Reason for exam:->abd painFINAL REPORT RAD, ABDOMEN/KUB, [...] MDReport Verified Date/Time: 11/23/2018 08:42:11 Reading Location: [facility] Radiology Reading Room COMPREHENSIVE METABOLIC [id number] 07:44:00 Test Item Value Reference Range Comments TOTAL PROTEIN (BEAKER) 6.0 gm/dL 6.0-8.3 (test abvq=236) ALBUMIN (BEAKER) (test 3.0 g/dL 3.5-5.0 zwsw=9327) ALKALINE PHOSPHATASE 248 U/L 40-150 (BEAKER) (test vfbl=504) BILIRUBIN TOTAL (BEAKER) 0.8 mg/dL 0.2-1.2 (test larn=944) SODIUM (BEAKER) (test 137 meq/L 136-145 krme=685) POTASSIUM (BEAKER) (test 3.6 meq/L 3.5-5.1 qsmw=113) CHLORIDE (BEAKER) (test 101 meq/L 98-107 pqdy=627) CO2 (BEAKER) (test 28 meq/L 22-29 dwnf=129) BLOOD UREA NITROGEN 26 mg/dL 7-21 (BEAKER) (test ozxe=542) CREATININE (BEAKER) (test 4.09 mg/dL 0.57-1.25 bvvw=992) GLUCOSE RANDOM (BEAKER) 201 mg/dL 70-105 (test fauo=633) CALCIUM (BEAKER) (test 9.3 mg/dL 8.4-10.2 hscy=955) AST (SGOT) (BEAKER) (test 39 U/L 5-34 xkze=023) ALT (SGPT) (BEAKER) (test 18 U/L 6-55 dbhz=665) EGFR (BEAKER) (test 13 mL/min/1.73 sq m ESTIMATED GFR IS NOT iyys=5937) ACCURATE CREATININE CLEARANCE IN PREDICTING GLOMERULAR FILTRATION RATE. ESTIMATED GFR IS NOT APPLICABLE FOR DIALYSIS PATIENTS. BASIC METABOLIC [id number] 07:44:00 Test Item Value Reference Range Comments SODIUM (BEAKER) (test 137 meq/L 136-145 xbca=040) POTASSIUM (BEAKER) (test 3.6 meq/L 3.5-5.1 soze=694) CHLORIDE (BEAKER) (test 101 meq/L 98-107 rfqz=593) CO2 (BEAKER) (test 28 meq/L 22-29 mvzb=847) BLOOD UREA NITROGEN 26 mg/dL 7-21 (BEAKER) (test mxdy=489) CREATININE (BEAKER) (test 4.09 mg/dL 0.57-1.25 lklo=633) GLUCOSE RANDOM (BEAKER) 201 mg/dL 70-105 (test pvmu=060) CALCIUM (BEAKER) (test 9.3 mg/dL 8.4-10.2 yoac=468) EGFR (BEAKER) (test 13 mL/min/1.73 sq m ESTIMATED GFR IS NOT gejv=1461) ACCURATE CREATININE CLEARANCE IN PREDICTING GLOMERULAR FILTRATION RATE. ESTIMATED GFR IS NOT APPLICABLE FOR DIALYSIS PATIENTS. [id number] 07:39:00 Test Item Value Reference Range Comments PHOSPHORUS (BEAKER) (test mxrq=126) 3.0 mg/dL 2.3-4.7 [id number] 07:39:00 Test Item Value Reference Range Comments MAGNESIUM (BEAKER) (test ieud=391) 1.9 mg/dL 1.6-2.6 LACTIC ACID, VENOUS, WHOLE [id number] 07:34:00 Test Item Value Reference Range Comments LACTATE BLOOD VENOUS (2) (BEAKER) (test 0.8 mmol/L 0.5-2.2 ohff=5736) CALCIUM, [id number] 07:28:00 Test Item Value Reference Range Comments CALCIUM IONIZED (BEAKER) (test jqtq=472) 1.13 mmol/L 1.12-1.27 PH, BLOOD (BEAKER) (test hbhq=5149) 7.36 CBC W/PLT COUNT & AUTO [id number] 07:28:00 Test Item Value Reference Range Comments WHITE BLOOD CELL COUNT (BEAKER) (test lkso=740) 19.0 K/ L 3.5-10.5 RED BLOOD CELL COUNT (BEAKER) (test edej=653) 2.89 M/ L 3.93-5.22 HEMOGLOBIN (BEAKER) (test cyxk=533) 8.3 GM/DL 11.2-15.7 HEMATOCRIT (BEAKER) (test xrjz=199) 26.8 % 34.1-44.9 MEAN CORPUSCULAR VOLUME (BEAKER) (test xoqf=869) 92.7 fL 79.4-94.8 MEAN CORPUSCULAR HEMOGLOBIN (BEAKER) (test 28.7 pg 25.6-32.2 jcvo=131) MEAN CORPUSCULAR HEMOGLOBIN CONC (BEAKER) (test 31.0 GM/DL 32.2-35.5 jmbd=566) RED CELL DISTRIBUTION WIDTH (BEAKER) (test 15.1 % 11.7-14.4 ipim=077) PLATELET COUNT (BEAKER) (test ikqd=565) 101 K/CU MM 150-450 MEAN PLATELET VOLUME (BEAKER) (test pzxh=581) 10.7 fL 9.4-12.3 NUCLEATED RED BLOOD CELLS (BEAKER) (test 0 /100 WBC 0-0 wkai=633) NEUTROPHILS RELATIVE PERCENT (BEAKER) (test 88 % ssfm=587) LYMPHOCYTES RELATIVE PERCENT (BEAKER) (test 3 % yppk=893) MONOCYTES RELATIVE PERCENT (BEAKER) (test 6 % nagh=565) EOSINOPHILS RELATIVE PERCENT (BEAKER) (test 2 % lgcv=017) BASOPHILS RELATIVE PERCENT (BEAKER) (test 0 % hcvj=596) NEUTROPHILS ABSOLUTE COUNT (BEAKER) (test 16.67 K/ L 1.56-6.13 bjji=609) LYMPHOCYTES ABSOLUTE COUNT (BEAKER) (test 0.59 K/ L 1.18-3.74 nfep=474) MONOCYTES ABSOLUTE COUNT (BEAKER) (test 1.07 K/ L 0.24-0.36 euhh=818) EOSINOPHILS ABSOLUTE COUNT (BEAKER) (test 0.36 K/ L 0.04-0.36 mkgb=146) BASOPHILS ABSOLUTE COUNT (BEAKER) (test 0.07 K/ L 0.01-0.08 pyml=556) IMMATURE GRANULOCYTES-RELATIVE PERCENT (BEAKER) 1 % 0-1 (test mkep=5379) BASIC METABOLIC [id number] 02:11:00 Test Item Value Reference Range Comments SODIUM (BEAKER) (test 136 meq/L 136-145 psbz=395) POTASSIUM (BEAKER) (test 3.3 meq/L 3.5-5.1 yyke=940) CHLORIDE (BEAKER) (test 101 meq/L 98-107 ooqd=434) CO2 (BEAKER) (test 25 meq/L 22-29 ikmq=519) BLOOD UREA NITROGEN 34 mg/dL 7-21 (BEAKER) (test nzxs=938) CREATININE (BEAKER) (test 5.32 mg/dL 0.57-1.25 ueww=722) GLUCOSE RANDOM (BEAKER) 164 mg/dL 70-105 (test qtdm=258) CALCIUM (BEAKER) (test 9.4 mg/dL 8.4-10.2 htyv=868) EGFR (BEAKER) (test 10 mL/min/1.73 sq m ESTIMATED GFR IS NOT thrn=6575) ACCURATE CREATININE CLEARANCE IN PREDICTING GLOMERULAR FILTRATION RATE. ESTIMATED GFR IS NOT APPLICABLE FOR DIALYSIS PATIENTS. [id number] 02:07:00 Test Item Value Reference Range Comments PHOSPHORUS (BEAKER) (test kmrg=904) 2.7 mg/dL 2.3-4.7 [id number] 02:07:00 Test Item Value Reference Range Comments MAGNESIUM (BEAKER) (test vsfm=119) 1.8 mg/dL 1.6-2.6 CALCIUM, [id number] 01:51:00 Test Item Value Reference Range Comments CALCIUM IONIZED (BEAKER) (test dgnq=370) 1.18 mmol/L 1.12-1.27 PH, BLOOD (BEAKER) (test ziaq=9245) 7.35 POCT-GLUCOSE [id number] 00:30:00 Test Item Value Reference Range Comments POC-GLUCOSE METER (BEAKER) 248 mg/dL 70-110 TESTED AT [facility] [address] [facility] (test yoga=4839) [facility] [address] TROPONIN [id number] 23:27:00 Test Item Value Reference Range Comments TROPONIN I (BEAKER) (test ttiq=586) 0.60 ng/mL 0.00-0.03 Troponin I (TnI) levels [...] disease, and persistent tachyarrhythmia.LACTIC ACID, VENOUS, WHOLE [id number] 23:13:00 Test Item Value Reference Range Comments LACTATE BLOOD VENOUS (2) (FARRAH) (test 1.3 mmol/L 0.5-2.2 qrxm=9184) U/S, ABDOMINAL, [id number] 20:30:00Reason for exam:->Septic Shock, ESRD, Dysuria, Abdominal [...] Verified Date/Time: 11/22/2018 20:30: 54 Reading Location: [facility] C0[facility] Neuro Reading Room LACTIC ACID, VENOUS, WHOLE [id number] 18:54:00 Test Item Value Reference Range Comments LACTATE BLOOD VENOUS (2) (BEAKER) (test 1.5 mmol/L 0.5-2.2 bgwh=3540) [id number] 17:26:00 Test Item Value Reference Range Comments PROCALCITONIN (BEAKER) (test kypi=3723) > ng/mL <0.05 SEPSIS RISK (ng/mL)Low: 0.05-0.50Intermediate: 0.51-2.00High: & gt;=2.01TSH/FREE T4 IF [id number] 17:10:00 Test Item Value Reference Range Comments THYROID STIMULATING HORMONE (BEAKER) (test 2.43 uIU/mL 0.35-4.94 gwvu=067) RAD, CHEST, 1 VIEW, NON [id number] 17:04:00Reason for exam:->Respiratory Insufficiency, Septic ShockShould this [...] Verified Date/Time: 11/22/2018 17:04 :54 Reading Location: [address] Reading Room (CELLAVISION MANUAL DIFF) 2018-11-22 16:57:00 Test Item Value Reference Range Comments NEUTROPHILS - REL (CELLAVISION)(BEAKER) (test 85 % skzr=9800) LYMPHOCYTES - REL (CELLAVISION)(BEAKER) (test 5 % bhuq=0792) MONOCYTES - REL (CELLAVISION)(BEAKER) (test 4 % oeyv=5004) BANDS - REL (CELLAVISION)(BEAKER) (test 6 % 0-10 ouig=1035) NEUTROPHILS - ABS (CELLAVISION)(BEAKER) (test 22.87 K/ul 1.56-6.13 wysn=7140) LYMPHOCYTES - ABS (CELLAVISION)(BEAKER) (test 1.35 K/ul 1.18-3.74 ribd=8084) MONOCYTES - ABS (CELLAVISION)(BEAKER) (test 1.08 K/uL 0.24-0.36 jeed=5737) BANDS - ABS (CELLAVISION)(BEAKER) (test 1.61 K/uL 0.00-0.80 wljw=3336) TOTAL COUNTED (BEAKER) (test uslp=0206) 100 WBC MORPHOLOGY (BEAKER) (test lrty=912) Normal PLT MORPHOLOGY (BEAKER) (test abgl=078) Normal POLYCHROMATOPHILLIC RBCS(BEAKER) (test pqvv=456) 3+ many ANISOCYTOSIS (BEAKER) (test alkd=539) 1+ few MICROCYTES (BEAKER) (test rwsi=839) 1+ few POIKILOCYTES (BEAKER) (test kkwo=818) 2+ moderate TEAR DROP CELLS (BEAKER) (test mozu=670) 1+ few JOVANNI CELLS (BEAKER) (test rphs=796) 1+ few ARTIFACT (CELLAVISION)(BEAKER) (test vnhj=1081) Present HELMET CELLS (CELLAVISION)(BEAKER) (test 1+ few bsmo=7025) PLATELET CONCENTRATION (CELLAVISION)(BEAKER) Adequate (test hdnv=4096) Received comment: User comments: Slide comments:TROPONIN [id number] 16:52:00 Test Item Value Reference Range Comments TROPONIN I (BEAKER) (test ezrc=399) 0.85 ng/mL 0.00-0.03 Troponin I (TnI) levels [...] acidosis, acute neurological disease, and persistent tachyarrhythmia.PROTHROMBIN [id number] 16:52:00 Test Item Value Reference Range Comments PROTIME (BEAKER) (test shxh=286) 16.1 seconds 11.7-14.7 INR (BEAKER) (test ypms=005) 1.3 <=5.9 RECOMMENDED COUMADIN/WARFARIN INR THERAPY RANGESSTANDARD DOSE: 2.0 - 3.0 Includes: PROPHYLAXIS forvenous thrombosis, systemic embolization; TREATMENT for venous thrombosis and/or pulmonary embolus.HIGH RISK: Target INR is 2.5-3.5 for patients with mechanical heart valves.B-TYPE NATRIURETIC FACTOR (BNP)2018-10 16:48:00 Test Item Value Reference Range Comments B-TYPE NATRIURETIC PEPTIDE (BEAKER) (test 353 pg/mL 0-100 ehvh=753) BASIC METABOLIC [id number] 16:48:00 Test Item Value Reference Range Comments SODIUM (BEAKER) (test 136 meq/L 136-145 twqv=591) POTASSIUM (BEAKER) (test 2.9 meq/L 3.5-5.1 dswk=588) CHLORIDE (BEAKER) (test 98 meq/L 98-107 nxuk=808) CO2 (BEAKER) (test 24 meq/L 22-29 vkgg=414) BLOOD UREA NITROGEN 47 mg/dL 7-21 (BEAKER) (test wjuy=202) CREATININE (BEAKER) (test 8.07 mg/dL 0.57-1.25 fcrz=565) GLUCOSE RANDOM (BEAKER) 207 mg/dL 70-105 (test yzyb=189) CALCIUM (BEAKER) (test 9.5 mg/dL 8.4-10.2 xzxu=916) EGFR (BEAKER) (test 6 mL/min/1.73 sq m ESTIMATED GFR IS NOT lrtu=8632) ACCURATE CREATININE CLEARANCE IN PREDICTING GLOMERULAR FILTRATION RATE. ESTIMATED GFR IS NOT APPLICABLE FOR DIALYSIS PATIENTS. BLOOD GAS, [id number] 16:44:00 Test Item Value Reference Range Comments PH ARTERIAL (BEAKER) (test zyan=034) 7.37 7.35-7.45 PCO2 ARTERIAL (BEAKER) (test rchp=359) 42 mmHg 35-45 PO2 ARTERIAL (BEAKER) (test fvyi=677) 123 mmHg 80-90 O2 SATURATION ARTERIAL (BEAKER) (test qxts=062) 98.3 % 96.0-97.0 HCO3 ARTERIAL (BEAKER) (test ifsj=004) 24 mmol/L 21-29 BASE EXCESS ARTERIAL (BEAKER) (test wfum=416) -1.7 mmol/L -2.0-3.0 PATIENT TEMPERATURE (BEAKER) (test vnpk=1416) 37.0 C FIO2 (BEAKER) (test xklb=9745) 28.0 % [id number] 16:44:00 Test Item Value Reference Range Comments PHOSPHORUS (BEAKER) (test qzhc=735) 4.1 mg/dL 2.3-4.7 [id number] 16:44:00 Test Item Value Reference Range Comments MAGNESIUM (BEAKER) (test xyun=267) 1.9 mg/dL 1.6-2.6 HEPATIC FUNCTION [id number] 16:44:00 Test Item Value Reference Range Comments TOTAL PROTEIN (BEAKER) (test fmde=629) 6.9 gm/dL 6.0-8.3 ALBUMIN (BEAKER) (test mpin=7541) 3.5 g/dL 3.5-5.0 BILIRUBIN TOTAL (BEAKER) (test bzwy=727) 0.9 mg/dL 0.2-1.2 BILIRUBIN DIRECT (BEAKER) (test lbsu=026) 0.6 mg/dL 0.1-0.5 ALKALINE PHOSPHATASE (BEAKER) (test mnkz=303) 245 U/L 40-150 AST (SGOT) (BEAKER) (test ujaw=715) 51 U/L 5-34 ALT (SGPT) (BEAKER) (test piih=756) 18 U/L 6-55 VANCOMYCIN LEVEL, [id number] 16:41:00 Test Item Value Reference Range Comments VANCOMYCIN RANDOM (BEAKER) (test ibtf=916) 18.3 ug/mL Reference Range: No NormalsOXYGEN SATURATION, [id number] 16:40:00 Test Item Value Reference Range Comments O2 SATURATION (MEASURED) (BEAKER) (test hesr=2731) 62.7 % If patient has internal jugular ( IJ) or subclavian central line or PICC line. Draw from distal port. Label as central venous oxygen.LACTIC ACID, VENOUS, WHOLE [id number] 16:38:00 Test Item Value Reference Range Comments LACTATE BLOOD VENOUS (2) (BEAKER) (test 1.2 mmol/L 0.5-2.2 mivi=7491) CBC W/PLT COUNT & AUTO [id number] 16:35:00 Test Item Value Reference Range Comments WHITE BLOOD CELL COUNT (BEAKER) (test evhl=596) 26.9 K/ L 3.5-10.5 RED BLOOD CELL COUNT (BEAKER) (test fmjl=437) 3.17 M/ L 3.93-5.22 HEMOGLOBIN (BEAKER) (test ptux=329) 8.8 GM/DL 11.2-15.7 HEMATOCRIT (BEAKER) (test xmfy=366) 29.6 % 34.1-44.9 MEAN CORPUSCULAR VOLUME (BEAKER) (test jafv=746) 93.4 fL 79.4-94.8 MEAN CORPUSCULAR HEMOGLOBIN (BEAKER) (test 27.8 pg 25.6-32.2 ynqf=824) MEAN CORPUSCULAR HEMOGLOBIN CONC (BEAKER) (test 29.7 GM/DL 32.2-35.5 ccot=321) RED CELL DISTRIBUTION WIDTH (BEAKER) (test 15.3 % 11.7-14.4 zkvx=044) PLATELET COUNT (BEAKER) (test dfdr=646) 149 K/CU MM 150-450 MEAN PLATELET VOLUME (BEAKER) (test ajug=958) 10.6 fL 9.4-12.3 NUCLEATED RED BLOOD CELLS (BEAKER) (test 0 /100 WBC 0-0 yafx=288) NEUTROPHILS RELATIVE PERCENT (BEAKER) (test 88 % faqe=658) LYMPHOCYTES RELATIVE PERCENT (BEAKER) (test 4 % etvu=140) MONOCYTES RELATIVE PERCENT (BEAKER) (test 6 % qrbz=021) EOSINOPHILS RELATIVE PERCENT (BEAKER) (test 1 % nycu=872) BASOPHILS RELATIVE PERCENT (BEAKER) (test 0 % bbqs=957) NEUTROPHILS ABSOLUTE COUNT (BEAKER) (test 23.68 K/ L 1.56-6.13 eksw=253) LYMPHOCYTES ABSOLUTE COUNT (BEAKER) (test 0.94 K/ L 1.18-3.74 zaii=252) MONOCYTES ABSOLUTE COUNT (BEAKER) (test 1.53 K/ L 0.24-0.36 luwh=309) EOSINOPHILS ABSOLUTE COUNT (BEAKER) (test 0.32 K/ L 0.04-0.36 yrfj=135) BASOPHILS ABSOLUTE COUNT (BEAKER) (test 0.08 K/ L 0.01-0.08 vmdc=490) IMMATURE GRANULOCYTES-RELATIVE PERCENT (BEAKER) 1 % 0-1 (test krgz=3218) HEP B SURFACE [id number] 15:58:00 Test Item Value Reference Range Comments [...] Negative (qualifier Negative value) CBC WITH AUTO [id number] 07:16:00 Test Item Value Reference Range Comments [...] 1.0-3.0 IG% (test code=IG%) 1.4 % 0.0-0.4 [id number] 07:13:00 Test Item Value Reference Range Comments [...] mL/min/1.73m\\S\\2 EGFR if Non- 11 Estimated Glomerular Polish (test mL/min/1.73m\\S\\2 Filtration Rate (eGFR) code=EGFRNA) Reference [...] management of chronic kidney failure. TYPE & [id number] 15:35:00 Test Item Value Reference Range Comments ABO Blood Type (test code=ABO) A Rh (test code=RH) Negative Antibody Screen (test code=ABSCR) Negative Negative ARMBAND# (test code=ARMBAND) FF 84 337 [id number] 13:49:00 Test Item Value Reference Range Comments [...] mL/min/1.73m\\S\\2 EGFR if Non- 10 Estimated Glomerular Polish (test mL/min/1.73m\\S\\2 Filtration Rate (eGFR) code=EGFRNA) Reference [...] management of chronic kidney failure. er4PT AND [id number] 14:13:00 Test Item Value Reference Range Comments Protime (test code=PT) 9.8 seconds 9.0-11.9 INR (test code=INR) 1.0 0.9-1.1 INR results are intended ONLY to monitor Oral Anticoagulant therapy in stablized patients. The INR Therapeutic Range is 2.0 - 3.0 Patients with a mechanical heart, the INR Range is 2.5 - 3.5 [id number] 14:13:00 Test Item Value Reference Range Comments aPTT (test code=PTT) 28.2 seconds 23.0-33.0 CBC WITH AUTO [id number] 13:39:00 Test Item Value Reference Range Comments [...] IG% (test code=IG%) 1.7 % 0.0-0.4 AUTO [id number] 13:25:00 Test Item Value Reference Range Comments [...] mL/min/1.73m\\S\\2 EGFR if Non- 10 Estimated Glomerular Polish (test mL/min/1.73m\\S\\2 Filtration Rate (eGFR) code=EGFRNA) Reference [...] management of chronic kidney failure. TYPE & [id number] 12:40:00 Test Item Value Reference Range Comments ABO Blood Type (test code=ABO) A Rh (test code=RH) Negative Antibody Screen (test code=ABSCR) Negative Negative ARMBAND# (test code=ARMBAND) FF 12 500 [id number] 06:38:00 Test Item Value Reference Range Comments [...] mL/min/1.73m\\S\\2 EGFR if Non- 12 Estimated Glomerular Polish (test mL/min/1.73m\\S\\2 Filtration Rate (eGFR) code=EGFRNA) Reference [...] of chronic kidney failure. CBC WITH AUTO [id number] 06:35:00 Test Item Value Reference Range Comments [...] (test code=IG%) 0.4 % 0.0-0.4 CBC AUTO [id number] 06:33:00 Test Item Value Reference Range Comments aPTT (test code=PTT) 29.4 seconds 23.0-33.0 PT AND [id number] 06:33:00 Test Item Value Reference Range Comments Protime (test code=PT) 10.1 seconds 9.0-11.9 INR (test code=INR) 1.0 0.9-1.1 INR results are intended ONLY to monitor Oral Anticoagulant therapy in stablized patients. The INR Therapeutic Range is 2.0 - 3.0 Patients with a mechanical heart, the INR Range is 2.5 - 3.5 [id number] 10:05:00 Test Item Value Reference Range Comments [...] mL/min/1.73m\\S\\2 EGFR if Non- 15 Estimated Glomerular Polish (test mL/min/1.73m\\S\\2 Filtration Rate (eGFR) code=EGFRNA) Reference [...] PLATELET CLUMPING. THIS IS A HEMOGRAM ONLYRBC, [id number] 03:00:00 Test Item Value Reference Range Comments RBC Unit (test code=RBCUNIT) Released for Transfusion RBC, [id number] 03:00:00 Test Item Value Reference Range Comments RBC Unit (test code=RBCUNIT) Released for Transfusion CROSSMATCH x 12:53:00Completed: Compatible Ready to TransfuseTYPE & amp; [id number] 12:52:00 Test Item Value Reference Range Comments ABO Blood Type (test code=ABO) A Rh (test code=RH) Negative Antibody Screen (test code=ABSCR) Negative Negative ARMBAND# (test code=ARMBAND) FF 12 500 HEP B SURFACE [id number] 07:50:00 Test Item Value Reference Range Comments [...] Negative (qualifier Negative value) CBC WITH AUTO [id number] 07:17:00 Test Item Value Reference Range Comments [...] called to Gary DIAZ RN. K3 by [id number] on 08/10/2017 07:16 AM. Results were readback by Claudine DE LA CRUZ RN..[id number] 07:17:00 Test Item Value Reference Range Comments [...] mL/min/1.73m\\S\\2 EGFR if Non- 13 Estimated Glomerular Polish (test mL/min/1.73m\\S\\2 Filtration Rate (eGFR) code=EGFRNA) Reference Intervals Decision Points for 18 years and older and average body mass: >=60 Does not exclude kidney disease. 30 - 59 Suggests moderate chronic kidney disease and indicates the need for further investigation including assessment of proteinuria and cardiovascular factors. < 30 Usually indicates a need for referral for assessment and management of chronic kidney failure. [id number] 19:07:00 Test Item Value Reference Range Comments aPTT (test code=PTT) 29.9 seconds 23.0-33.0 PT AND [id number] 19:07:00 Test Item Value Reference Range Comments Protime (test code=PT) 10.1 seconds 9.0-11.9 INR (test code=INR) 1.0 0.9-1.1 INR results are intended ONLY to monitor Oral Anticoagulant therapy in stablized patients. The INR Therapeutic Range is 2.0 - 3.0 Patients with a mechanical heart, the INR Range is 2.5 - 3.5 [id number] 18:35:00 Test Item Value Reference Range Comments [...] mL/min/1.73m\\S\\2 EGFR if Non- 13 Estimated Glomerular Polish (test mL/min/1.73m\\S\\2 Filtration Rate (eGFR) code=EGFRNA) Reference [...] of chronic kidney failure. CBC WITH AUTO [id number] 18:19:00 Test Item Value Reference Range Comments [...] IG% (test code=IG%) 0.4 % 0.0-0.4 AUTO [id number] 17:15:00 Test Item Value Reference Range Comments [...] (test code=BGCTHB) 8.3 gm/dl 11.5-17.4 O2Hb (test code=UOUC7DQ) 94.9 % 95.0-99.0 COHb (test code=BGFCOHB) <2.8 [...] Notified (test code=BGTMNOTIFIED) 15:59 O2 Device (test code=HCD2TRB1) Room Air Instrument ID (test code=BGINSTRID) [id number] Reported By (test code=BGREPORTEDBY) ROSALINO HUFF [id number] 09:50:00 Test Item Value Reference Range Comments [...] mL/min/1.73m\\S\\2 EGFR if Non- 14 Estimated Glomerular Polish (test mL/min/1.73m\\S\\2 Filtration Rate (eGFR) code=EGFRNA) Reference [...] values were called to Tracy AGARWAL by [id number] on 08/07/2017 09:41 AM. Results were read back by Tracy AGARWAL.CULTURE, [id number] 07:53:00Specimen : AbscessCollected: 07/26/2017 20:47 Status: Final [...] 09:58: Culture Result (Prelim) (Prelim) Many DiptheroidsCULTURE, [id number] 06:50:00To start 15mins after 1st cultureSpecimen: BloodCollected: 07/24/2017 00:38 Status: Final Last Updated: 07/29/2017 06: 49 (1) To start 15mins after 1st culture Culture Result (Final) (Final ) No Growth After 5 DaysCULTURE, [id number] 06:50:00Specimen: BloodCollected: 07/24/2017 00:18 Status: Final Last Updated: 07/29/2017 06: 49 Culture Result (Final) (Final) No Growth After 5 DaysED RAPID [id number] 04:24:00 Test Item Value Reference Range Comments CKMB (BIOSITE) (test code=BIOCKMB) <1.0 ng/ml 0.0-2.5 TROPONIN-I (BIOSITE) (test code=BIOTROP) <0.050 ng/ml 0.000-0.050 MYOGLOBIN (BIOSITE) (test code=BIOMYO) 166.0 ng/ml 0.0-170.0 SERIAL INSTRUMENT NUMBER (test code=SERIAL) [id number] ED RAPID [id number] 01:05:00 Test Item Value Reference Range Comments CKMB (BIOSITE) (test code=BIOCKMB) <1.0 ng/ml 0.0-2.5 TROPONIN-I (BIOSITE) (test code=BIOTROP) <0.050 ng/ml 0.000-0.050 MYOGLOBIN (BIOSITE) (test code=BIOMYO) 203.0 ng/ml 0.0-170.0 SERIAL INSTRUMENT NUMBER (test code=SERIAL) [id number] 01:02:00 Test Item Value Reference Range Comments [...] mL/min/1.73m\\S\\2 EGFR if Non- 16 Estimated Glomerular Polish (test mL/min/1.73m\\S\\2 Filtration Rate (eGFR) code=EGFRNA) Reference [...] chronic kidney failure. ER 8CBC WITH AUTO [id number] 00:58:00 Test Item Value Reference Range Comments [...] IG% (test code=IG%) 0.5 % 0.0-0.4 ER [id number] 13:31:00 Test Item Value Reference Range Comments [...] mL/min/1.73m\\S\\2 EGFR if Non- 11 Estimated Glomerular Polish (test mL/min/1.73m\\S\\2 Filtration Rate (eGFR) code=EGFRNA) Reference [...] of chronic kidney failure. CBC WITH AUTO [id number] 13:08:00 Test Item Value Reference Range Comments [...] 0 /100WBC 0-2 code=NRBC_AUTO) HEP B SURFACE [id number] 15:00:00 Test Item Value Reference Range Comments [...] to HBV infection. HEPATITIS B CORE AB, [id number] 10:03:00 Test Item Value Reference Range Comments HEPATITIS B CORE AB TOTAL (test code=HEPBCORE) 2.97 Negative [id number] 09:16:00 Test Item Value Reference Range Comments [...] mL/min/1.73m\\S\\2 EGFR if Non- 13 Estimated Glomerular Polish (test mL/min/1.73m\\S\\2 Filtration Rate (eGFR) code=EGFRNA) Reference [...] management of chronic kidney failure. ERYTHROCYTE SED [id number] 09:16:00 Test Item Value Reference Range Comments [...] 50-999 years old=0-25 mm/hr CBC WITH AUTO [id number] 08:46:00 Test Item Value Reference Range Comments [...] IG% (test code=IG%) 0.7 % 0.0-0.4 LIPASE, [id number] 18:05:00 Test Item Value Reference Range Comments Lipase (test code=LIPA) 42 U/L 8-223 AMYLASE, [id number] 18:05:00 Test Item Value Reference Range Comments Amylase (test code=AMYL) 53 U/L 12-103 C-REACTIVE [id number] 17:24:00 Test Item Value Reference Range Comments C REACTIVE PROTEIN (test code=CRP) 0.7 ng/ml 0.0-0.9 [id number] 09:07:00 Test Item Value Reference Range Comments [...] mL/min/1.73m\\S\\2 EGFR if Non- 10 Estimated Glomerular Polish (test mL/min/1.73m\\S\\2 Filtration Rate (eGFR) code=EGFRNA) Reference [...] of chronic kidney failure. CBC WITH AUTO [id number] 08:35:00 Test Item Value Reference Range Comments [...] % 0.0-0.4 CBC AUTO diffCBC WITH AUTO [id number] 05:58:00 Test Item Value Reference Range Comments [...] 1.0-3.0 IG% (test code=IG%) 0.8 % 0.0-0.4 [id number] 05:41:00 Test Item Value Reference Range Comments [...] mL/min/1.73m\\S\\2 EGFR if Non- 12 Estimated Glomerular Polish (test mL/min/1.73m\\S\\2 Filtration Rate (eGFR) code=EGFRNA) Reference Intervals Decision Points for 18 years and older and average body mass: >=60 Does not exclude kidney disease. 30 - 59 Suggests moderate chronic kidney disease and indicates the need for further investigation including assessment of proteinuria and cardiovascular factors. < 30 Usually indicates a need for referral for assessment and management of chronic kidney failure. [id number] 05:41:00 Test Item Value Reference Range Comments Magnesium (test code=MG) 2.0 mg/dl 1.6-2.3 HEP B SURFACE [id number] 08:16:00 Test Item Value Reference Range Comments [...] (test code=HBSAG) Negative (qualifier Negative value) GLYCOSALATED [id number] 01:37:00 Test Item Value Reference Range Comments [...] ARE NOT INTERCHANGEABLE BETWEEN METHODS. 12-06-2006 FREE [id number] 01:14:00 Test Item Value Reference Range Comments Free T4 (test code=FT4) 1.24 ng/dl 0.78-2.19 CORONARY [id number] 00:54:00 Test Item Value Reference Range Comments [...] Average vLDL (test code=VLDL) 29 mg/dl 20-50 [id number] 00:52:00 Test Item Value Reference Range Comments Magnesium (test code=MG) 2.0 mg/dl 1.6-2.3 [id number] 00:52:00 Test Item Value Reference Range Comments [...] mL/min/1.73m\\S\\2 EGFR if Non- 17 Estimated Glomerular Polish (test mL/min/1.73m\\S\\2 Filtration Rate (eGFR) code=EGFRNA) Reference [...]
--- NOTE | 2019-11-26 11:34 | RAD REPORT ---
EXAM DESCRIPTION: [facility] Single View11/26/2019 11:07 am CLINICAL HISTORY: cough COMPARISON: August 2019 FINDINGS: Mild bilateral pulmonary opacities. The heart is normal size. A central venous catheter tomlinson s its tip in the right atrium IMPRESSION: Mild pulmonary edema
--- NOTE | 2019-11-26 11:42 | EKG ---
Test Date: 2019-11-26 Test Time: 10:49:16 Forensic Ballistics Expert: KEELY MEASUREMENT RESULTS: Intervals: Rate: 60 MN: 174 QRSD: 124 QT: 508 QTc: 508 Tama: P: 50 MN: 174 QRS: 34 T: 84 INTERPRETIVE STATEMENTS: Sinus rhythm with fusion complexes Nonspecific intraventricular conduction delay Borderline ECG Compared to ECG 08/08/2019 20:28:25 Fusion complex(es) now present Intraventricular conduction delay now present Sinus tachycardia no longer present Ventricular premature complex(es) no longer present Left bundle-branch block no longer present Electronically Signed On 11-26-19 11:41:52 CORPORATE BANKING OFFICER by Nithin Lloyd
[2019-11-26 12:39] LABS: Absolute Lymphocytes (CBC) 0.6 K/uL (0.7-4.9); Basophils % 1.1 % (0-1.3); Hematocrit 35.5 % (36.0-45.0); Lymphocytes % 12.3 % (15.3-44.8); MPV 9.9 fL (7.6-11.3); RBC Red Blood Cell Count 3.77 M/uL (3.86-4.86)
[2019-11-26 12:40] LABS: Protime INR 1.28
[2019-11-26 13:45] LABS: ALT/SGPT 16 U/L (12-78); AST/SGOT 12 U/L (15-37); Albumin 3.4 g/dL (3.4-5.0); Alkaline Phosphatase 167 U/L (45-117); BUN Blood Urea Nitrogen 58 mg/dL (7-18); Bicarbonate 21 mmol/L (21-32); Bilirubin Direct 0.1 mg/dL (0-0.2); Bilirubin Total 0.4 mg/dL (0.2-1.0); Glucose Level 204 mg/dL (74-106); Magnesium 2.7 mg/dL (1.8-2.4); NT PRO-BNP 34825 pg/mL (<125); Potassium 5.5 mmol/L (3.5-5.1); Protein, Total 7.6 g/dL (6.4-8.2); Sodium Level 136 mmol/L (136-145); Troponin (Emerg Dept Use Only) < 0.02 ng/mL (0.0-0.045)
--- NOTE | 2019-11-26 13:58 | ER ---
Nurse's Notes [facility] Name: Alysa Mayes Age: 64 yrs Sex: Female : 1955 Arrival Date: 11/26/2019 Time: 10:13 Bed 8 Private MD: Diagnosis: End stage renal disease;Hypoglycemia, unspecified;Type 1 diabetes mellitus;Edema, unspecified;Unspecified combined systolic (congestive) and diastolic (congestive) heart failure-mild volume overlload;Hyperkalemia Presentation: 11/26 10:18 Presenting complaint: EMS states: General weakness since last night after taking ca1 insulin and not eating after. BGL on scene was 30 gave oral glucose, increased to 40. Gave D10W 100ml, BGL taken at ED now at 122. Pt also on dialysis scheduled M/W/, reports missed 3 dialysis. Last dialysis was Wednesday. Transition of care: patient was not received from another setting of care. Onset of symptoms was November 25, 2019. Risk Assessment: Do you want to hurt yourself or someone else? Patient reports no desire to harm self or others. Initial Sepsis Screen: Does the patient meet any 2 criteria? No. Patient's initial sepsis screen is negative. Does the patient have a suspected source of infection? No. Patient's initial sepsis screen is negative. Care prior to arrival: None. Medication(s) given: D10W 100ml IV initiated. 20 GA, in the right hand. 10:18 Method Of Arrival: EMS: [facility] ca1 10:18 Acuity: LESLEE 3 ca1 Historical: - Allergies: 10:24 amlodipine; ca1 10:24 Amoxicillin; ca1 10:24 PENICILLINS; ca1 - Home Meds: 10:34 Eliquis 2.5 mg oral tab 1 tab 2 times per day [Active]; isosorbide mononitrate 30 mg ca1 Oral Tb24 1 tab once daily [Active]; loratadine 10 mg oral tab 1 tab once daily [Active]; lisinopril 2.5 mg Oral tab 1 tab once daily [Active]; carvedilol 6.25 mg oral tab 1 tab 2 times per day [Active]; carvedilol 12.5 mg oral tab 1 tab 2 times per day [Active]; 13:52 Levemir 100 unit/mL subcutaneous soln [Active]; tw2 - PMHx: 10:24 Anemia; CHF; COPD; Depression; Diabetes - IDDM; Dialysis; Gout; Hyperlipidemia; ca1 Hypertension; Hypothyroidism; pressure ulcers; - PSHx: 10:25 left upper arm fistula; R thigh Fistula (dialysis); ca1 - Immunization history:: Adult Immunizations up to date, Pneumococcal vaccine is not up to date, Flu vaccine is up to date. - Social history:: Smoking status: Patient/guardian denies using tobacco. - Ebola Screening: : Patient negative for fever greater than or equal to 101.5 degrees Fahrenheit, and additional compatible Ebola Virus Disease symptoms Patient denies exposure to infectious person Patient denies travel to an Ebola-affected area in the 21 days before illness onset No symptoms or risks identified at this time. - Family history:: not pertinent. Screenin:26 Abuse screen: Denies threats or abuse. Denies injuries from another. Nutritional ca1 screening: On renal diet. Tuberculosis screening: No symptoms or risk factors identified. Fall Risk IV access (20 points). Ambulatory Aid- Crutches/Cane/Walker (15 pts). Assessment: 10:26 General: Appears in no apparent distress. comfortable, ill, Behavior is calm, ca1 cooperative, appropriate for age. General: Reports fatigue for 0-12 hours. Pain: Denies pain. Neuro: Level of Consciousness is awake, alert, obeys commands, Oriented to person, place, time, situation. Cardiovascular: Heart tones S1 S2 present Capillary refill < 3 seconds Patient's skin is warm and dry. Cardiovascular: Dialysis shunt: in the right quadriceps, with palpable thrill, with auscultated bruit, with no erythema, with no edema, no bleeding noted. Respiratory: Airway is patent Respiratory effort is even, unlabored, Respiratory pattern is regular, symmetrical, Breath sounds are clear bilaterally. GI: Abdomen is round non-distended, Bowel sounds present X 4 quads. Abd is soft and non tender X 4 quads. : No signs and/or symptoms were reported regarding the genitourinary system. EENT: No signs and/or symptoms were reported regarding the EENT system. Derm: Skin is healthy with good turgor, Skin is pink, warm \T\ dry. Decubitus located on left hip(s). Musculoskeletal: Circulation, motion, and sensation intact. Capillary refill < 3 seconds, Range of motion: intact in all extremities, Swelling present in right foot. 11:29 Reassessment: Patient appears in no apparent distress at this time. No changes from ca1 previously documented assessment. Patient and/or family updated on plan of care and expected duration. Pain level reassessed. Lab paged for recollect. 12:21 Reassessment: BGL 187. Reassessment: lab at bedside to recollect blood. ca1 12:40 Reassessment: Patient appears in no apparent distress at this time. Patient and/or ca1 family updated on plan of care and expected duration. Pain level reassessed. Pt eating at bedside. 13:07 Reassessment: Lab called to call that blood work still too hemolyzed to run BMP. ca1 Notified provider. 13:36 Reassessment: Patient appears in no apparent distress at this time. Patient is alert, ca1 oriented x 3, equal unlabored respirations, skin warm/dry/pink. 14:13 Reassessment: Patient appears in no apparent distress at this time. Patient is alert, ca1 oriented x 3, equal unlabored respirations, skin warm/dry/pink. 14:20 Reassessment: Dr. Yeboah ordered Bilateral US on lower extremities for R leg swelling ca1 and pain. US pending. Will discharged once completed and cleared for clots. 15:04 Reassessment: Ultrasound at bedside. ca1 15:25 Reassessment: US result back. Discharge once US cleared per Dr. Yeboah. ca1 15:40 Reassessment: Pt discharged with brother. Instructed on eating well and on time. ca1 Vital Signs: 10:25 BP 114 / 61; Pulse 58; Resp 16 S; Pulse Ox 95% on R/A; Weight 81.65 kg (R); Height 5 ca1 ft. 7 in. (170.18 cm) (R); Pain 0/10; 11:29 BP 116 / 56; Pulse 60; Resp 14; Pulse Ox 97% on R/A; ca1 11:45 BP 113 / 73; Pulse 60; Resp 13; Pulse Ox 97% on R/A; tw2 12:01 Temp 96.4(TE); em1 12:43 BP 139 / 81; Pulse 70; Resp 17; Pulse Ox 97% on R/A; ca1 13:36 BP 149 / 86; Pulse 65; Resp 18 S; Pulse Ox 98% on R/A; ca1 14:13 BP 148 / 87; Pulse 69; Resp 21 S; Pulse Ox 100% on R/A; ca1 14:22 BP 162 / 90; Pulse 69; Resp 14 S; Pulse Ox 100% on R/A; ca1 15:25 BP 134 / 72; Pulse 73; Resp 15 S; Pulse Ox 96% on R/A; ca1 10:25 Body Mass Index 28.19 (81.65 kg, 170.18 cm) ca1 ED Course: 10:13 Patient arrived in ED. em1 10:14 Sumit Yeboah MD is Attending Physician. cory 10:18 Cathy Solares, TIM is Primary Nurse. ca1 10:24 Triage completed. ca1 10:25 Arm band placed on right wrist. ca1 10:26 Patient has correct armband on for positive identification. Placed in gown. Bed in low ca1 position. Call light in reach. Side rails up X2. public relations intern on. Pulse ox on. NIBP on. Warm blanket given. 10:26 No provider procedures requiring assistance completed. Maintain EMS IV. Dressing ca1 intact. Good blood return noted. Site clean \T\ dry. Gauge \T\ site: G20 R hand. 10:45 Initial lab(s) drawn, by ED staff, sent to lab. Inserted saline lock: 22 gauge in right ca1 forearm, using aseptic technique. ,using aseptic technique. by TIM Thayer Blood collected. 11:08 XRAY Chest (1 view) In Process Unspecified. EDMS 12:22 Lab(s) recollected, by laboratory chief, sent to lab. ca1 13:17 Lab(s) recollected, by ED staff, sent to lab. Inserted saline lock: 18 gauge in left ca1 EJ, using aseptic technique. ,using aseptic technique. by Dr. Yeboah Blood collected. 13:55 Lincoln Desai MD is Referral Physician. cory 15:11 Ultrasound completed. Patient tolerated well. sg3 15:12 US Extremity Venous W Compression Shalom In Process Unspecified. EDMS 15:40 IV discontinued, intact, bleeding controlled, No redness/swelling at site. Pressure ca1 dressing applied, x3. Administered Medications: 13:58 Drug: Kayexalate 45 grams Route: PO; ca1 14:14 Follow up: Response: No adverse reaction ca1 14:00 Drug: Albuterol 5 mg Route: Inhalation; ca1 14:11 Drug: Lasix 100 mg Route: IVP; Site: right forearm; ca1 15:05 Follow up: Response: No adverse reaction ca1 Outcome: 13:56 Discharge ordered by . cory 15:40 Discharged to home via wheelchair. ca1 15:40 Condition: stable 15:40 Discharge instructions given to patient, Instructed on discharge instructions, follow up and referral plans. Demonstrated understanding of instructions, follow-up care. 15:41 Patient left the ED. ca1 Signatures: Dispatcher [employer] EDOK Sumit Yeboah MD MD cha Martinez, Eric em1 Flaca Robles, RN RN tw2 Miguelina Mckenna sg3 Cathy Solares RN RN ca1 Corrections: (The following items were deleted from the chart) 11:30 11:29 Reassessment: Patient appears in no apparent distress at this time. No changes ca1 from previously documented assessment. Patient and/or family updated on plan of care and expected duration. Pain level reassessed. ca1 13:09 13:07 Reassessment: Lab called to call that blood work still too hemolyzed to run. ca1 Notified provider ca1 13:39 13:36 Pulse 65bpm; Resp 18bpm; Spontaneous; Pulse Ox 98% RA; ca1 ca1 14:20 10:26 Derm: Skin is intact, is healthy with good turgor, Skin is pink, warm \T\ dry. ca1 ca1 14:20 10:26 Musculoskeletal: Circulation, motion, and sensation intact. Capillary refill < 3 ca1 seconds, Range of motion: intact in all extremities, ca1
--- NOTE | 2019-11-26 13:59 | EDPHYS ---
Physician Documentation [facility] Name: Alysa Mayes Age: 64 yrs Sex: Female : 1955 Arrival Date: 11/26/2019 Time: 10:13 Bed 8 Private MD: LUANNE Physician Sumit Yeboah HPI: 11/26 10:48 This 64 yrs old Black Female presents to ER via EMS with complaints of ams, cory hypoglycemia, iddm. 10:48 The patient or guardian reports altered mental status, hypoglycemia. Onset: The cory symptoms/episode began/occurred just prior to arrival. Associated signs and symptoms: Pertinent positives: anorexia. called for ams, low blood glucose. The patient presents with trouble concentrating. Possible causes: low blood sugar. Historical: - Allergies: 10:24 amlodipine; ca1 10:24 Amoxicillin; ca1 10:24 PENICILLINS; ca1 - Home Meds: 10:34 Eliquis 2.5 mg oral tab 1 tab 2 times per day [Active]; isosorbide mononitrate 30 mg ca1 Oral Tb24 1 tab once daily [Active]; loratadine 10 mg oral tab 1 tab once daily [Active]; lisinopril 2.5 mg Oral tab 1 tab once daily [Active]; carvedilol 6.25 mg oral tab 1 tab 2 times per day [Active]; carvedilol 12.5 mg oral tab 1 tab 2 times per day [Active]; 13:52 Levemir 100 unit/mL subcutaneous soln [Active]; tw2 - PMHx: 10:24 Anemia; CHF; COPD; Depression; Diabetes - IDDM; Dialysis; Gout; Hyperlipidemia; ca1 Hypertension; Hypothyroidism; pressure ulcers; - PSHx: 10:25 left upper arm fistula; R thigh Fistula (dialysis); ca1 - Immunization history:: Adult Immunizations up to date, Pneumococcal vaccine is not up to date, Flu vaccine is up to date. - Social history:: Smoking status: Patient/guardian denies using tobacco. - Ebola Screening: : Patient negative for fever greater than or equal to 101.5 degrees Fahrenheit, and additional compatible Ebola Virus Disease symptoms Patient denies exposure to infectious person Patient denies travel to an Ebola-affected area in the 21 days before illness onset No symptoms or risks identified at this time. - Family history:: not pertinent. ROS: 10:48 Constitutional: Negative for fever, chills, and weight loss, Eyes: Negative for injury, cory pain, redness, and discharge, ENT: Negative for injury, pain, and discharge, Neck: Negative for injury, pain, and swelling, Cardiovascular: Negative for chest pain, palpitations, and edema, Respiratory: Negative for shortness of breath, cough, wheezing, and pleuritic chest pain, Abdomen/GI: Negative for abdominal pain, nausea, vomiting, diarrhea, and constipation, Back: Negative for injury and pain, : Negative for injury, bleeding, discharge, and swelling, Skin: Negative for injury, rash, and discoloration, Psych: Negative for depression, anxiety, suicide ideation, homicidal ideation, and hallucinations, Allergy/Immunology: Negative for hives, rash, and allergies, Endocrine: Negative for neck swelling, polydipsia, polyuria, polyphagia, and marked weight changes, Hematologic/Lymphatic: Negative for swollen nodes, abnormal bleeding, and unusual bruising. 10:48 MS/extremity: Positive for pain, swelling. Exam: 10:48 Constitutional: This is a well developed, well nourished patient who is awake, alert, cory and in no acute distress. Head/Face: Normocephalic, atraumatic. Eyes: Pupils equal round and reactive to light, extra-ocular motions intact. Lids and lashes normal. Conjunctiva and sclera are non-icteric and not injected. Cornea within normal limits. Periorbital areas with no swelling, redness, or edema. ENT: Nares patent. No nasal discharge, no septal abnormalities noted. Tympanic membranes are normal and external auditory canals are clear. Oropharynx with no redness, swelling, or masses, exudates, or evidence of obstruction, uvula midline. Mucous membranes moist. Neck: Trachea midline, no thyromegaly or masses palpated, and no cervical lymphadenopathy. Supple, full range of motion without nuchal rigidity, or vertebral point tenderness. No Meningismus. Chest/axilla: Normal chest wall appearance and motion. Nontender with no deformity. No lesions are appreciated. Cardiovascular: Regular rate and rhythm with a normal S1 and S2. No gallops, murmurs, or rubs. Normal PMI, no JVD. No pulse deficits. Respiratory: Lungs have equal breath sounds bilaterally, clear to auscultation and percussion. No rales, rhonchi or wheezes noted. No increased work of breathing, no retractions or nasal flaring. Abdomen/GI: Soft, non-tender, with normal bowel sounds. No distension or tympany. No guarding or rebound. No evidence of tenderness throughout. Back: No spinal tenderness. No costovertebral tenderness. Full range of motion. Neuro: Awake and alert, GCS 15, oriented to person, place, time, and situation. Cranial nerves II-XII grossly intact. Motor strength 5/5 in all extremities. Sensory grossly intact. Cerebellar exam normal. Normal gait. Psych: Awake, alert, with orientation to person, place and time. Behavior, mood, and affect are within normal limits. 10:48 Skin: edema, 2x2 cm eschar on planter surface of right foot. Vital Signs: 10:25 BP 114 / 61; Pulse 58; Resp 16 S; Pulse Ox 95% on R/A; Weight 81.65 kg (R); Height 5 ca1 ft. 7 in. (170.18 cm) (R); Pain 0/10; 11:29 BP 116 / 56; Pulse 60; Resp 14; Pulse Ox 97% on R/A; ca1 11:45 BP 113 / 73; Pulse 60; Resp 13; Pulse Ox 97% on R/A; tw2 12:01 Temp 96.4(TE); em1 12:43 BP 139 / 81; Pulse 70; Resp 17; Pulse Ox 97% on R/A; ca1 13:36 BP 149 / 86; Pulse 65; Resp 18 S; Pulse Ox 98% on R/A; ca1 14:13 BP 148 / 87; Pulse 69; Resp 21 S; Pulse Ox 100% on R/A; ca1 14:22 BP 162 / 90; Pulse 69; Resp 14 S; Pulse Ox 100% on R/A; ca1 15:25 BP 134 / 72; Pulse 73; Resp 15 S; Pulse Ox 96% on R/A; ca1 10:25 Body Mass Index 28.19 (81.65 kg, 170.18 cm) ca1 Procedures: 13:16 Peripheral line: by aseptic technique a peripheral line was placed in the right [facility] external jugular vein. MDM: 10:14 Patient medically screened. [facility] 10:56 Data reviewed: vital signs, nurses notes, lab test result(s), EKG, radiologic studies, [facility] plain films. 11/26 10:15 Order name: glucometer results - FOR PT WITH NO ID em1 11/26 10:25 Order name: Basic Metabolic Panel; Complete Time: 13:54 [facility] 11/26 10:25 Order name: CBC with Diff; Complete Time: 12:52 [facility] 11/26 10:25 Order name: LFT's; Complete Time: 13:54 [facility] 11/26 10:25 Order name: Magnesium; Complete Time: 13:54 [facility] 11/26 10:25 Order name: NT PRO-BNP; Complete Time: 13:54 [facility] 11/26 10:25 Order name: PT-INR; Complete Time: 12:52 [facility] 11/26 10:25 Order name: Troponin (emerg Dept Use Only); Complete Time: 13:54 [facility] 11/26 10:25 Order name: XRAY Chest (1 view); Complete Time: 12:16 [facility] 11/26 12:32 Order name: Glucose, Ancillary Testing; Complete Time: 12:52 EDMS 11/26 14:17 Order name: US Extremity Venous W Compression Shalom 11/26 10:25 Order name: EKG; Complete Time: 10:27 [facility] 11/26 10:25 Order name: Cardiac monitoring; Complete Time: 10:35 [facility] 11/26 10:25 Order name: EKG - Nurse/Tech; Complete Time: 10:44 [facility] 11/26 10:25 Order name: IV Saline Lock; Complete Time: 10:35 [facility] 11/26 10:25 Order name: Labs collected and sent; Complete Time: 10:45 [facility] 11/26 10:25 Order name: O2 Per Protocol; Complete Time: 10:35 [facility] 11/26 10:25 Order name: O2 Sat Monitoring; Complete Time: 10:35 [facility] 11/26 10:25 Order name: Diet Regular; Complete Time: 10:27 [facility] 11/26 10:55 Order name: Labs - recollect needed: all the blood recollect needed; Complete Time: eb 12:21 11/26 12:17 Order name: Blood Glucose Level; Complete Time: 12:21 [facility] Administered Medications: 13:58 Drug: Kayexalate 45 grams Route: PO; ca1 14:14 Follow up: Response: No adverse reaction ca1 14:00 Drug: Albuterol 5 mg Route: Inhalation; ca1 14:11 Drug: Lasix 100 mg Route: IVP; Site: right forearm; ca1 15:05 Follow up: Response: No adverse reaction ca1 Disposition: 11/26/19 13:56 Discharged to Home. Impression: End stage renal disease, Hypoglycemia, unspecified, Type 1 diabetes mellitus, Edema, unspecified, Unspecified combined systolic (congestive) and diastolic (congestive) heart failure - mild volume overlload, Hyperkalemia. - Condition is Stable. - Discharge Instructions: Type 1 Diabetes Mellitus, Diagnosis, Adult, Edema, Hyperkalemia, Hyperkalemia, [id number], Hypoglycemia, Neuropathic Pain, Dialysis, Edema, [id number], Blood Glucose Monitoring, Adult, End-Stage Kidney Disease, Hypoglycemia, [id number], Dialysis Diet, [id number], Peripheral Edema, Dialysis Diet, Hemodialysis, [id number]. - Medication Reconciliation Form, Thank You Letter, Antibiotic Education, Prescription Opioid Use form. - Follow up: Private Physician; When: 2 - 3 days; Reason: Recheck today's complaints, Continuance of care, Re-evaluation by your physician. Follow up: Lincoln Desai; When: Tomorrow; Reason: Recheck today's complaints, Continuance of care, Re-evaluation by your physician. - Problem is new. - Symptoms have improved. Signatures: Dispatcher [employer] [facility] Sumit Yeboah MD MD cha Wise, Tara, RN RN tw2 Sirena Dumont Cheryl, RN RN ca1 Corrections: (The following items were deleted from the chart) 14:43 14:16 Extrem Venous W Compression Shalom+[id number].RAD.BRZ ordered. [facility] 15:41 13:56 11/26/2019 13:56 Discharged to Home. 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 Condition is Stable. Discharge Instructions: Type 1 Diabetes Mellitus, Diagnosis, Adult, Edema, Hypoglycemia, Neuropathic Pain, Dialysis, Edema, [id number], Blood Glucose Monitoring, Adult, End-Stage Kidney Disease, Hypoglycemia, [id number], Dialysis Diet, [id number]-[id number], Peripheral Edema, Dialysis Diet, Hemodialysis, [id number]. Forms are Medication Reconciliation Form, Thank You Letter, Antibiotic Education, Prescription Opioid Use. Follow up: Private Physician; When: 2 - 3 days; Reason: Recheck today's complaints, Continuance of care, Re-evaluation by your physician. Follow up: Lincoln Desai; When: Tomorrow; Reason: Recheck today's complaints, Continuance of care, Re-evaluation by your physician. Problem is new. Symptoms have improved. cory
[2019-11-26] MEDS ORDERED: SOD POLYSTYREN SUL 15 GM/60 ML UCUP ONE (14:02)
[2019-11-26] MEDS ORDERED: ALBUTEROL 2.5 MG/3 ML NEB SOL ONE (14:02)
[2019-11-26] MEDS ORDERED: FUROSEMIDE 100 MG/10 ML VIAL IV ONE (14:02)
--- NOTE | 2019-11-26 15:18 | RAD REPORT ---
EXAM DESCRIPTION: USExtrem Venous W Compress Bil11/26/2019 3:12 pm CLINICAL HISTORY: Bilateral leg swelling COMPARISON: February 2019 FINDINGS: The common femoral, superficial femoral, popliteal and posterior tibial veins bilaterally are compressible and demonstrate augmentation. Doppler demonstrates good flow. IMPRESSION: No evidence of deep venous thrombosis involving either lower extremity.
[2019-11-26 15:57] VITALS: TEMP 96.4
[2019-11-26 16:04] VITALS: BP 134/72; O2SAT 96
== END 2019-11-26 15:41 | disposition home or self-care (01) ==
LOC: ER 10:09
PROC: 05HP33Z Insertion of Infusion Device into Right External Jugular Vein, Percutaneous Approach (ICD-10-PCS; principal; 2019-11-26)
DX: E10.649 Type 1 diabetes mellitus with hypoglycemia without coma (principal); E10.22 Type 1 diabetes mellitus with diabetic chronic kidney disease; I12.0 Hypertensive chronic kidney disease with stage 5 chronic kidney disease or end stage renal disease; N18.6 End stage renal disease; E87.5 Hyperkalemia; R60.9 Edema, unspecified; I50.40 Unspecified combined systolic (congestive) and diastolic (congestive) heart failure; E78.5 Hyperlipidemia, unspecified; E03.9 Hypothyroidism, unspecified; F32.9 Major depressive disorder, single episode, unspecified; Z79.4 Long term (current) use of insulin; Z99.2 Dependence on renal dialysis
CPT/HCPCS: 36415; 71045; 80048; 80076; 82947; 83735; 83880; 84484; 85025; 85610; 93005; 93970; 96374; 99285

== ENCOUNTER 2019-11-30 01:49 | Observation (INO) | payer MEDICAID ==
--- OUTSIDE RECORDS SUMMARY | 2019-11-30 01:57 | XMS REPORT ---
:1955 [facility] Address [address] [place] [address] Care Team Providers Name Role Phone ARELY [...] Value Reference Range Comments CULTURE (BEAKER) (test egyv=9568) No growth in 5 days POCT-GLUCOSE [id number] 09:17:00 Test Item Value Reference Range Comments POC-GLUCOSE METER (BEAKER) 110 mg/dL 70-110 TESTED AT [facility] [address] [facility] (test ivrz=9870) [facility] [address] CBC W/PLT COUNT & AUTO [id number] 07:05:00 Test Item Value Reference Range Comments WHITE BLOOD CELL COUNT (BEAKER) (test aeoa=264) 8.2 K/ L 3.5-10.5 RED BLOOD CELL COUNT (BEAKER) (test djvi=290) 2.79 M/ L 3.93-5.22 HEMOGLOBIN (BEAKER) (test ytzf=133) 7.8 GM/DL 11.2-15.7 HEMATOCRIT (BEAKER) (test dxhs=008) 26.4 % 34.1-44.9 MEAN CORPUSCULAR VOLUME (BEAKER) (test pkse=697) 94.6 fL 79.4-94.8 MEAN CORPUSCULAR HEMOGLOBIN (BEAKER) (test 28.0 pg 25.6-32.2 ixzk=124) MEAN CORPUSCULAR HEMOGLOBIN CONC (BEAKER) (test 29.5 GM/DL 32.2-35.5 riqu=137) RED CELL DISTRIBUTION WIDTH (BEAKER) (test 14.5 % 11.7-14.4 pskh=307) PLATELET COUNT (BEAKER) (test guyj=076) 299 K/CU MM 150-450 MEAN PLATELET VOLUME (BEAKER) (test jbgd=913) 10.0 fL 9.4-12.3 NUCLEATED RED BLOOD CELLS (BEAKER) (test 0 /100 WBC 0-0 btwu=785) NEUTROPHILS RELATIVE PERCENT (BEAKER) (test 72 % ioeq=431) LYMPHOCYTES RELATIVE PERCENT (BEAKER) (test 11 % dtpk=530) MONOCYTES RELATIVE PERCENT (BEAKER) (test 10 % lqae=283) EOSINOPHILS RELATIVE PERCENT (BEAKER) (test 5 % xfcy=878) BASOPHILS RELATIVE PERCENT (BEAKER) (test 1 % upie=794) NEUTROPHILS ABSOLUTE COUNT (BEAKER) (test 5.93 K/ L 1.56-6.13 mbfy=356) LYMPHOCYTES ABSOLUTE COUNT (BEAKER) (test 0.87 K/ L 1.18-3.74 edpc=409) MONOCYTES ABSOLUTE COUNT (BEAKER) (test 0.84 K/ L 0.24-0.36 oktl=605) EOSINOPHILS ABSOLUTE COUNT (BEAKER) (test 0.44 K/ L 0.04-0.36 wbdi=162) BASOPHILS ABSOLUTE COUNT (BEAKER) (test 0.09 K/ L 0.01-0.08 xpxm=476) IMMATURE GRANULOCYTES-RELATIVE PERCENT (BEAKER) 1 % 0-1 (test ukzr=6840) BASIC METABOLIC [id number] 07:04:00 Test Item Value Reference Range Comments SODIUM (BEAKER) (test 139 meq/L 136-145 lhra=080) POTASSIUM (BEAKER) (test 4.3 meq/L 3.5-5.1 pwed=208) CHLORIDE (BEAKER) (test 104 meq/L 98-107 zuyp=604) CO2 (BEAKER) (test 26 meq/L 22-29 bqmv=606) BLOOD UREA NITROGEN 31 mg/dL 7-21 (BEAKER) (test ypvm=578) CREATININE (BEAKER) (test 5.39 mg/dL 0.57-1.25 dlkf=996) GLUCOSE RANDOM (BEAKER) 83 mg/dL 70-105 (test hwht=385) CALCIUM (BEAKER) (test 9.1 mg/dL 8.4-10.2 jgwu=477) EGFR (BEAKER) (test 10 mL/min/1.73 sq m ESTIMATED GFR IS NOT diyk=6512) ACCURATE CREATININE CLEARANCE IN PREDICTING GLOMERULAR FILTRATION RATE. ESTIMATED GFR IS NOT APPLICABLE FOR DIALYSIS PATIENTS. RAD, ABDOMEN/KUB, 1 VIEW [id number] 04:19:00Reason for exam:->abdominal painFINAL REPORT EXAMINATION: SUPINE [...] Verified Date/ Time: 12/08/2018 04:19:23 Reading Location: [address] Reading Room POCT-GLUCOSE [id number] 21:25:00 Test Item Value Reference Range Comments POC-GLUCOSE METER (BEAKER) 193 mg/dL 70-110 TESTED AT [address] (test ypvh=2134) [facility] [address] POCT-GLUCOSE [id number] 17:52:00 Test Item Value Reference Range Comments POC-GLUCOSE METER (BEAKER) 152 mg/dL 70-110 TESTED AT [address] (test umjk=8489) [facility] [address] POCT-GLUCOSE [id number] 14:15:00 Test Item Value Reference Range Comments POC-GLUCOSE METER (BEAKER) 284 mg/dL 70-110 TESTED AT [address] (test swun=8474) [facility] [address] POCT-GLUCOSE [id number] 08:09:00 Test Item Value Reference Range Comments POC-GLUCOSE METER (BEAKER) 185 mg/dL 70-110 TESTED AT [address] (test wlxm=1494) [facility] [address] BASIC METABOLIC [id number] 06:30:00 Test Item Value Reference Range Comments SODIUM (BEAKER) (test 137 meq/L 136-145 yflu=438) POTASSIUM (BEAKER) (test 4.2 meq/L 3.5-5.1 zkni=552) CHLORIDE (BEAKER) (test 98 meq/L 98-107 hphw=385) CO2 (BEAKER) (test 28 meq/L 22-29 balw=129) BLOOD UREA NITROGEN 46 mg/dL 7-21 (BEAKER) (test bqnf=289) CREATININE (BEAKER) (test 6.96 mg/dL 0.57-1.25 akzl=479) GLUCOSE RANDOM (BEAKER) 131 mg/dL 70-105 (test tbcg=719) CALCIUM (BEAKER) (test 9.1 mg/dL 8.4-10.2 lskf=745) EGFR (BEAKER) (test 7 mL/min/1.73 sq m ESTIMATED GFR IS NOT ezhv=4280) ACCURATE CREATININE CLEARANCE IN PREDICTING GLOMERULAR FILTRATION RATE. ESTIMATED GFR IS NOT APPLICABLE FOR DIALYSIS PATIENTS. [id number] 06:29:00 Test Item Value Reference Range Comments MAGNESIUM (BEAKER) (test knew=564) 2.2 mg/dL 1.6-2.6 CBC W/PLT COUNT & AUTO [id number] 05:57:00 Test Item Value Reference Range Comments WHITE BLOOD CELL COUNT (BEAKER) (test bmsn=824) 11.4 K/ L 3.5-10.5 RED BLOOD CELL COUNT (BEAKER) (test cxcx=154) 2.56 M/ L 3.93-5.22 HEMOGLOBIN (BEAKER) (test kgce=250) 7.2 GM/DL 11.2-15.7 HEMATOCRIT (BEAKER) (test essr=427) 23.4 % 34.1-44.9 MEAN CORPUSCULAR VOLUME (BEAKER) (test cqev=319) 91.4 fL 79.4-94.8 MEAN CORPUSCULAR HEMOGLOBIN (BEAKER) (test 28.1 pg 25.6-32.2 tiek=669) MEAN CORPUSCULAR HEMOGLOBIN CONC (BEAKER) (test 30.8 GM/DL 32.2-35.5 piwb=743) RED CELL DISTRIBUTION WIDTH (BEAKER) (test 14.6 % 11.7-14.4 pzql=191) PLATELET COUNT (BEAKER) (test vfhx=282) 246 K/CU MM 150-450 MEAN PLATELET VOLUME (BEAKER) (test hvop=834) 9.8 fL 9.4-12.3 NUCLEATED RED BLOOD CELLS (BEAKER) (test 0 /100 WBC 0-0 reml=780) NEUTROPHILS RELATIVE PERCENT (BEAKER) (test 82 % ymzm=861) LYMPHOCYTES RELATIVE PERCENT (BEAKER) (test 6 % myml=638) MONOCYTES RELATIVE PERCENT (BEAKER) (test 8 % fzrn=418) EOSINOPHILS RELATIVE PERCENT (BEAKER) (test 3 % ddul=116) BASOPHILS RELATIVE PERCENT (BEAKER) (test 1 % pzem=747) NEUTROPHILS ABSOLUTE COUNT (BEAKER) (test 9.41 K/ L 1.56-6.13 dqbg=581) LYMPHOCYTES ABSOLUTE COUNT (BEAKER) (test 0.70 K/ L 1.18-3.74 ytgs=322) MONOCYTES ABSOLUTE COUNT (BEAKER) (test 0.89 K/ L 0.24-0.36 hqwh=562) EOSINOPHILS ABSOLUTE COUNT (BEAKER) (test 0.31 K/ L 0.04-0.36 vpss=896) BASOPHILS ABSOLUTE COUNT (BEAKER) (test 0.06 K/ L 0.01-0.08 enae=793) IMMATURE GRANULOCYTES-RELATIVE PERCENT (BEAKER) 1 % 0-1 (test gdgz=8551) POCT-GLUCOSE [id number] 21:35:00 Test Item Value Reference Range Comments POC-GLUCOSE METER (BEAKER) 249 mg/dL 70-110 TESTED AT [place] [id number] [facility] (test lqlm=4725) [facility] [address] POCT-GLUCOSE [id number] 17:49:00 Test Item Value Reference Range Comments POC-GLUCOSE METER (BEAKER) 168 mg/dL 70-110 TESTED AT [place] [id number] [facility] (test ytax=2925) [place] [id number] [facility], MULTI, PHARM, [id number] 16:00:00FINAL REPORT PROCEDURE: Rest/Stress MYOCARDIAL PERFUSION SPECT with regadenoson\\XA9\\ CPT CODE: 56710 INDICATION: New onset heart failure, intermediate risk [...] tracer distribution is normal. 6. No previous [facility] study for comparison. Signed: Dariana Jones MDReport Verified Date/Time: 12/06/2018 16:00:51 Reading Location: [address] [address] Electronically signed by: DARIANA JONES MD on 2018 04:00 PMANG, TUNNELED CATHETER [id number] 14:29:00Reason for exam :->Tunneled cath for dialysisFINAL [...] Verified Date/Time: 12/06/2018 14:29:30 Reading Location : [place] [address] Angio Body Reading Room POCT-GLUCOSE [id number] 12:31:00 Test Item Value Reference Range Comments POC-GLUCOSE METER (BEAKER) 187 mg/dL 70-110 TESTED AT [address] (test guhc=4437) [facility] [address] POCT-GLUCOSE [id number] 11:21:00 Test Item Value Reference Range Comments POC-GLUCOSE METER (BEAKER) 165 mg/dL 70-110 TESTED AT [place] [id number] [facility] (test asfi=3869) [facility] [address] POCT-GLUCOSE [id number] 06:17:00 Test Item Value Reference Range Comments POC-GLUCOSE METER (BEAKER) 108 mg/dL 70-110 TESTED AT [address] (test zpeg=2843) [facility] [address] VANCOMYCIN LEVEL, [id number] 02:03:00 Test Item Value Reference Range Comments VANCOMYCIN RANDOM (BEAKER) (test bclc=409) 18.7 ug/mL Reference Range: No NormalsCBC W/PLT COUNT & AUTO [id number] 01: 48:00 Test Item Value Reference Range Comments WHITE BLOOD CELL COUNT (BEAKER) (test zpsv=637) 12.1 K/ L 3.5-10.5 RED BLOOD CELL COUNT (BEAKER) (test jmfs=896) 2.76 M/ L 3.93-5.22 HEMOGLOBIN (BEAKER) (test knno=679) 7.7 GM/DL 11.2-15.7 HEMATOCRIT (BEAKER) (test skhb=361) 25.1 % 34.1-44.9 MEAN CORPUSCULAR VOLUME (BEAKER) (test genj=607) 90.9 fL 79.4-94.8 MEAN CORPUSCULAR HEMOGLOBIN (BEAKER) (test 27.9 pg 25.6-32.2 hvtw=855) MEAN CORPUSCULAR HEMOGLOBIN CONC (BEAKER) (test 30.7 GM/DL 32.2-35.5 xdhm=585) RED CELL DISTRIBUTION WIDTH (BEAKER) (test 14.6 % 11.7-14.4 ccsv=067) PLATELET COUNT (BEAKER) (test jqxa=169) 231 K/CU MM 150-450 MEAN PLATELET VOLUME (BEAKER) (test xwqz=573) 10.0 fL 9.4-12.3 NUCLEATED RED BLOOD CELLS (BEAKER) (test 0 /100 WBC 0-0 gaph=014) NEUTROPHILS RELATIVE PERCENT (BEAKER) (test 84 % elhf=001) LYMPHOCYTES RELATIVE PERCENT (BEAKER) (test 7 % pybr=626) MONOCYTES RELATIVE PERCENT (BEAKER) (test 6 % sznr=980) EOSINOPHILS RELATIVE PERCENT (BEAKER) (test 2 % luhl=948) BASOPHILS RELATIVE PERCENT (BEAKER) (test 1 % iufk=641) NEUTROPHILS ABSOLUTE COUNT (BEAKER) (test 10.17 K/ L 1.56-6.13 ecqd=631) LYMPHOCYTES ABSOLUTE COUNT (BEAKER) (test 0.79 K/ L 1.18-3.74 osuh=473) MONOCYTES ABSOLUTE COUNT (BEAKER) (test 0.73 K/ L 0.24-0.36 zcyy=533) EOSINOPHILS ABSOLUTE COUNT (BEAKER) (test 0.24 K/ L 0.04-0.36 uttn=145) BASOPHILS ABSOLUTE COUNT (BEAKER) (test 0.08 K/ L 0.01-0.08 htyx=961) IMMATURE GRANULOCYTES-RELATIVE PERCENT (BEAKER) 0 % 0-1 (test xwav=3340) BASIC METABOLIC [id number] 01:43:00 Test Item Value Reference Range Comments SODIUM (BEAKER) (test 136 meq/L 136-145 irce=923) POTASSIUM (BEAKER) (test 4.2 meq/L 3.5-5.1 owrn=227) CHLORIDE (BEAKER) (test 99 meq/L 98-107 gfwb=096) CO2 (BEAKER) (test 27 meq/L 22-29 qomj=290) BLOOD UREA NITROGEN 29 mg/dL 7-21 (BEAKER) (test btcg=379) CREATININE (BEAKER) (test 5.09 mg/dL 0.57-1.25 kbtb=671) GLUCOSE RANDOM (BEAKER) 110 mg/dL 70-105 (test hato=887) CALCIUM (BEAKER) (test 9.0 mg/dL 8.4-10.2 ykll=834) EGFR (BEAKER) (test 10 mL/min/1.73 sq m ESTIMATED GFR IS NOT ljlz=7543) ACCURATE CREATININE CLEARANCE IN PREDICTING GLOMERULAR FILTRATION RATE. ESTIMATED GFR IS NOT APPLICABLE FOR DIALYSIS PATIENTS. [id number] 01:34:00 Test Item Value Reference Range Comments PARTIAL THROMBOPLASTIN TIME (BEAKER) (test 85.3 seconds 22.5-36.0 cswz=236) POCT-GLUCOSE [id number] 21:26:00 Test Item Value Reference Range Comments POC-GLUCOSE METER (BEAKER) 154 mg/dL 70-110 TESTED AT [facility] [address] [facility] (test vzti=9139) [facility] [address] POCT-GLUCOSE [id number] 16:29:00 Test Item Value Reference Range Comments POC-GLUCOSE METER (BEAKER) 121 mg/dL 70-110 TESTED AT [address] (test tcnq=4631) [facility] [address] POCT-GLUCOSE [id number] 16:26:00 Test Item Value Reference Range Comments POC-GLUCOSE METER (BEAKER) 119 mg/dL 70-110 TESTED AT [address] (test dnum=6778) [facility] [address] [id number] 08:47:00 Test Item Value Reference Range Comments PARTIAL THROMBOPLASTIN TIME (BEAKER) (test 85.2 seconds 22.5-36.0 dkgn=465) BASIC METABOLIC [id number] 08:29:00 Test Item Value Reference Range Comments SODIUM (BEAKER) (test 133 meq/L 136-145 nrrd=157) POTASSIUM (BEAKER) (test 4.7 meq/L 3.5-5.1 uxvu=342) CHLORIDE (BEAKER) (test 93 meq/L 98-107 fjnp=716) CO2 (BEAKER) (test 24 meq/L 22-29 gebm=973) BLOOD UREA NITROGEN 64 mg/dL 7-21 (BEAKER) (test tvaf=730) CREATININE (BEAKER) (test 8.39 mg/dL 0.57-1.25 tgqd=388) GLUCOSE RANDOM (BEAKER) 117 mg/dL 70-105 (test edjw=134) CALCIUM (BEAKER) (test 8.7 mg/dL 8.4-10.2 hszr=036) EGFR (BEAKER) (test 6 mL/min/1.73 sq m ESTIMATED GFR IS NOT jmcc=8787) ACCURATE CREATININE CLEARANCE IN PREDICTING GLOMERULAR FILTRATION RATE. ESTIMATED GFR IS NOT APPLICABLE FOR DIALYSIS PATIENTS. CBC W/PLT COUNT & AUTO [id number] 08:25:00 Test Item Value Reference Range Comments WHITE BLOOD CELL COUNT (BEAKER) (test cest=868) 15.1 K/ L 3.5-10.5 RED BLOOD CELL COUNT (BEAKER) (test xytn=418) 2.84 M/ L 3.93-5.22 HEMOGLOBIN (BEAKER) (test icln=973) 7.8 GM/DL 11.2-15.7 HEMATOCRIT (BEAKER) (test rlqt=090) 25.8 % 34.1-44.9 MEAN CORPUSCULAR VOLUME (BEAKER) (test jqqp=067) 90.8 fL 79.4-94.8 MEAN CORPUSCULAR HEMOGLOBIN (BEAKER) (test 27.5 pg 25.6-32.2 jmjz=111) MEAN CORPUSCULAR HEMOGLOBIN CONC (BEAKER) (test 30.2 GM/DL 32.2-35.5 hwpi=179) RED CELL DISTRIBUTION WIDTH (BEAKER) (test 14.7 % 11.7-14.4 wowj=396) PLATELET COUNT (BEAKER) (test ikbs=565) 258 K/CU MM 150-450 MEAN PLATELET VOLUME (BEAKER) (test kwkh=586) 10.4 fL 9.4-12.3 NUCLEATED RED BLOOD CELLS (BEAKER) (test 0 /100 WBC 0-0 qnpm=089) NEUTROPHILS RELATIVE PERCENT (BEAKER) (test 83 % jgyi=432) LYMPHOCYTES RELATIVE PERCENT (BEAKER) (test 8 % lamn=280) MONOCYTES RELATIVE PERCENT (BEAKER) (test 6 % rnph=396) EOSINOPHILS RELATIVE PERCENT (BEAKER) (test 2 % hufd=673) BASOPHILS RELATIVE PERCENT (BEAKER) (test 1 % rkdv=810) NEUTROPHILS ABSOLUTE COUNT (BEAKER) (test 12.58 K/ L 1.56-6.13 tvrw=288) LYMPHOCYTES ABSOLUTE COUNT (BEAKER) (test 1.18 K/ L 1.18-3.74 kamh=321) MONOCYTES ABSOLUTE COUNT (BEAKER) (test 0.87 K/ L 0.24-0.36 hfpr=073) EOSINOPHILS ABSOLUTE COUNT (BEAKER) (test 0.30 K/ L 0.04-0.36 xvhe=008) BASOPHILS ABSOLUTE COUNT (BEAKER) (test 0.08 K/ L 0.01-0.08 jcbs=472) IMMATURE GRANULOCYTES-RELATIVE PERCENT (BEAKER) 1 % 0-1 (test okiu=9392) [id number] 23:58:00 Test Item Value Reference Range Comments PARTIAL THROMBOPLASTIN TIME (BEAKER) (test 92.6 seconds 22.5-36.0 qpoh=570) POCT-GLUCOSE [id number] 20:54:00 Test Item Value Reference Range Comments POC-GLUCOSE METER (BEAKER) 151 mg/dL 70-110 TESTED AT [address] (test pycn=8884) [facility] [address] POCT-GLUCOSE [id number] 17:04:00 Test Item Value Reference Range Comments POC-GLUCOSE METER (BEAKER) 158 mg/dL 70-110 TESTED AT [address] (test dote=9928) [facility] [address] [id number] 16:25:00 Test Item Value Reference Range Comments PARTIAL THROMBOPLASTIN TIME (BEAKER) (test 75.9 seconds 22.5-36.0 cplg=924) POCT-GLUCOSE [id number] 12:34:00 Test Item Value Reference Range Comments POC-GLUCOSE METER (BEAKER) 183 mg/dL 70-110 TESTED AT [address] (test mdpn=0008) [facility] [address] POCT-GLUCOSE [id number] 12:00:00 Test Item Value Reference Range Comments POC-GLUCOSE METER (BEAKER) 175 mg/dL 70-110 TESTED AT [address] (test wsgu=7618) [facility] [address] [id number] 10:17:00 Test Item Value Reference Range Comments PARTIAL THROMBOPLASTIN TIME (BEAKER) (test 32.1 seconds 22.5-36.0 wxyr=201) Prior to initiating heparinBASIC METABOLIC [id number] 08:20:00 Test Item Value Reference Range Comments SODIUM (BEAKER) (test 134 meq/L 136-145 dstb=070) POTASSIUM (BEAKER) (test 4.3 meq/L 3.5-5.1 urpe=128) CHLORIDE (BEAKER) (test 98 meq/L 98-107 gzsa=623) CO2 (BEAKER) (test 26 meq/L 22-29 seet=898) BLOOD UREA NITROGEN 48 mg/dL 7-21 (BEAKER) (test qfjj=766) CREATININE (BEAKER) (test 6.48 mg/dL 0.57-1.25 hnvi=834) GLUCOSE RANDOM (BEAKER) 124 mg/dL 70-105 (test xeqe=130) CALCIUM (BEAKER) (test 9.2 mg/dL 8.4-10.2 mavi=280) EGFR (BEAKER) (test 8 mL/min/1.73 sq m ESTIMATED GFR IS NOT jxvc=0455) ACCURATE CREATININE CLEARANCE IN PREDICTING GLOMERULAR FILTRATION RATE. ESTIMATED GFR IS NOT APPLICABLE FOR DIALYSIS PATIENTS. VANCOMYCIN LEVEL, [id number] 08:06:00 Test Item Value Reference Range Comments VANCOMYCIN RANDOM (BEAKER) (test akzh=606) 28.6 ug/mL Reference Range: No NormalsCBC W/PLT COUNT & AUTO [id number] 07: 14:00 Test Item Value Reference Range Comments WHITE BLOOD CELL COUNT (BEAKER) (test ksvb=435) 13.3 K/ L 3.5-10.5 RED BLOOD CELL COUNT (BEAKER) (test qvje=598) 2.89 M/ L 3.93-5.22 HEMOGLOBIN (BEAKER) (test usgh=259) 7.9 GM/DL 11.2-15.7 HEMATOCRIT (BEAKER) (test kqao=052) 26.4 % 34.1-44.9 MEAN CORPUSCULAR VOLUME (BEAKER) (test ihic=247) 91.3 fL 79.4-94.8 MEAN CORPUSCULAR HEMOGLOBIN (BEAKER) (test 27.3 pg 25.6-32.2 jqmt=559) MEAN CORPUSCULAR HEMOGLOBIN CONC (BEAKER) (test 29.9 GM/DL 32.2-35.5 paop=246) RED CELL DISTRIBUTION WIDTH (BEAKER) (test 15.2 % 11.7-14.4 uzru=231) PLATELET COUNT (BEAKER) (test pzzd=598) 242 K/CU MM 150-450 MEAN PLATELET VOLUME (BEAKER) (test uvbx=374) 10.2 fL 9.4-12.3 NUCLEATED RED BLOOD CELLS (BEAKER) (test 0 /100 WBC 0-0 xkzz=387) NEUTROPHILS RELATIVE PERCENT (BEAKER) (test 82 % zfes=583) LYMPHOCYTES RELATIVE PERCENT (BEAKER) (test 8 % zout=299) MONOCYTES RELATIVE PERCENT (BEAKER) (test 6 % kkss=899) EOSINOPHILS RELATIVE PERCENT (BEAKER) (test 2 % hdad=899) BASOPHILS RELATIVE PERCENT (BEAKER) (test 1 % gqde=739) NEUTROPHILS ABSOLUTE COUNT (BEAKER) (test 10.92 K/ L 1.56-6.13 muim=820) LYMPHOCYTES ABSOLUTE COUNT (BEAKER) (test 1.06 K/ L 1.18-3.74 egva=463) MONOCYTES ABSOLUTE COUNT (BEAKER) (test 0.84 K/ L 0.24-0.36 abwt=769) EOSINOPHILS ABSOLUTE COUNT (BEAKER) (test 0.31 K/ L 0.04-0.36 ffxy=459) BASOPHILS ABSOLUTE COUNT (BEAKER) (test 0.08 K/ L 0.01-0.08 etnq=993) IMMATURE GRANULOCYTES-RELATIVE PERCENT (BEAKER) 1 % 0-1 (test sxwd=2445) POCT-GLUCOSE [id number] 21:22:00 Test Item Value Reference Range Comments POC-GLUCOSE METER (BEAKER) 209 mg/dL 70-110 TESTED AT [address] (test bysq=0172) [place] [address] POCT-GLUCOSE [id number] 17:40:00 Test Item Value Reference Range Comments POC-GLUCOSE METER (BEAKER) 213 mg/dL 70-110 TESTED AT [address] (test pcue=9054) [place] [address] POCT-GLUCOSE [id number] 12:28:00 Test Item Value Reference Range Comments POC-GLUCOSE METER (BEAKER) 298 mg/dL 70-110 TESTED AT [address] (test tuzd=8764) [place] [address] BLOOD [id number] 11:01:00 Test Item Value Reference Range Comments CULTURE (BEAKER) (test fqqw=8212) No growth in 5 days POCT-GLUCOSE [id number] 08:43:00 Test Item Value Reference Range Comments POC-GLUCOSE METER (BEAKER) 147 mg/dL 70-110 TESTED AT [address] (test edic=1149) [place] [address] CBC W/PLT COUNT & AUTO [id number] 07:17:00 Test Item Value Reference Range Comments WHITE BLOOD CELL COUNT (BEAKER) (test hxrp=337) 12.1 K/ L 3.5-10.5 RED BLOOD CELL COUNT (BEAKER) (test zoxa=506) 2.54 M/ L 3.93-5.22 HEMOGLOBIN (BEAKER) (test oayy=453) 6.9 GM/DL 11.2-15.7 HEMATOCRIT (BEAKER) (test tmrn=893) 24.0 % 34.1-44.9 MEAN CORPUSCULAR VOLUME (BEAKER) (test ahcw=014) 94.5 fL 79.4-94.8 MEAN CORPUSCULAR HEMOGLOBIN (BEAKER) (test 27.2 pg 25.6-32.2 cfvv=563) MEAN CORPUSCULAR HEMOGLOBIN CONC (BEAKER) (test 28.8 GM/DL 32.2-35.5 dzwr=325) RED CELL DISTRIBUTION WIDTH (BEAKER) (test 14.9 % 11.7-14.4 kkmj=197) PLATELET COUNT (BEAKER) (test mfsi=364) 253 K/CU MM 150-450 MEAN PLATELET VOLUME (BEAKER) (test uxwv=352) 10.0 fL 9.4-12.3 NUCLEATED RED BLOOD CELLS (BEAKER) (test 0 /100 WBC 0-0 ivqa=132) NEUTROPHILS RELATIVE PERCENT (BEAKER) (test 83 % isvd=076) LYMPHOCYTES RELATIVE PERCENT (BEAKER) (test 7 % eqln=585) MONOCYTES RELATIVE PERCENT (BEAKER) (test 6 % zdgk=620) EOSINOPHILS RELATIVE PERCENT (BEAKER) (test 3 % igob=473) BASOPHILS RELATIVE PERCENT (BEAKER) (test 1 % pstt=909) NEUTROPHILS ABSOLUTE COUNT (BEAKER) (test 10.04 K/ L 1.56-6.13 azxg=039) LYMPHOCYTES ABSOLUTE COUNT (BEAKER) (test 0.88 K/ L 1.18-3.74 ypbr=018) MONOCYTES ABSOLUTE COUNT (BEAKER) (test 0.66 K/ L 0.24-0.36 szse=636) EOSINOPHILS ABSOLUTE COUNT (BEAKER) (test 0.34 K/ L 0.04-0.36 igpi=082) BASOPHILS ABSOLUTE COUNT (BEAKER) (test 0.09 K/ L 0.01-0.08 ocuh=756) IMMATURE GRANULOCYTES-RELATIVE PERCENT (BEAKER) 1 % 0-1 (test nsfn=2134) BASIC METABOLIC [id number] 07:02:00 Test Item Value Reference Range Comments SODIUM (BEAKER) (test 134 meq/L 136-145 tywm=882) POTASSIUM (BEAKER) (test 4.2 meq/L 3.5-5.1 Specimen slightly qcfy=092) hemolyzed CHLORIDE (BEAKER) (test 99 meq/L 98-107 njfp=082) CO2 (BEAKER) (test 25 meq/L 22-29 pcyb=762) BLOOD UREA NITROGEN 29 mg/dL 7-21 (BEAKER) (test faol=876) CREATININE (BEAKER) (test 4.76 mg/dL 0.57-1.25 Specimen slightly xfqh=299) hemolyzed GLUCOSE RANDOM (BEAKER) 116 mg/dL 70-105 (test decn=318) CALCIUM (BEAKER) (test 8.6 mg/dL 8.4-10.2 xsng=571) EGFR (BEAKER) (test 11 mL/min/1.73 sq m ESTIMATED GFR IS NOT wkrm=7244) ACCURATE CREATININE CLEARANCE IN PREDICTING GLOMERULAR FILTRATION RATE. ESTIMATED GFR IS NOT APPLICABLE FOR DIALYSIS PATIENTS. BLOOD [id number] 11:01:00 Test Item Value Reference Range Comments CULTURE (BEAKER) (test kvyt=6097) No growth in 5 days MR, EXTREMITY, LOWER, JOINT, WITHOUT CONTRAST, [id number] 09:05:00Reason for exam:->For hip painFINAL REPORT Indication: [...] MDReport Verified Date/Time: 12/02/2018 09:05:25 Reading Location: [facility] B1 [id number] Ortho Consult Reading Room Electronically signed by: JAYSON SHORT M.D. on 2018 09:05 AMHEMOGLOBIN AND [id number] 08:39:00 Test Item Value Reference Range Comments HEMOGLOBIN (BEAKER) (test rqrg=649) 7.2 GM/DL 11.2-15.7 HEMATOCRIT (BEAKER) (test jcvl=335) 24.1 % 34.1-44.9 POCT-GLUCOSE [id number] 07:54:00 Test Item Value Reference Range Comments POC-GLUCOSE METER (BEAKER) 186 mg/dL 70-110 TESTED AT [facility] [address] [facility] (test fxkc=3277) [facility] [address] CBC W/PLT COUNT & AUTO [id number] 07:22:00 Test Item Value Reference Range Comments WHITE BLOOD CELL COUNT (BEAKER) (test gfwh=926) 13.3 K/ L 3.5-10.5 RED BLOOD CELL COUNT (BEAKER) (test bcqs=907) 2.47 M/ L 3.93-5.22 HEMOGLOBIN (BEAKER) (test tqan=993) 6.8 GM/DL 11.2-15.7 HEMATOCRIT (BEAKER) (test hjrk=024) 23.2 % 34.1-44.9 MEAN CORPUSCULAR VOLUME (BEAKER) (test ywrh=038) 93.9 fL 79.4-94.8 MEAN CORPUSCULAR HEMOGLOBIN (BEAKER) (test 27.5 pg 25.6-32.2 lilo=790) MEAN CORPUSCULAR HEMOGLOBIN CONC (BEAKER) (test 29.3 GM/DL 32.2-35.5 nase=199) RED CELL DISTRIBUTION WIDTH (BEAKER) (test 15.2 % 11.7-14.4 djwe=823) PLATELET COUNT (BEAKER) (test cuds=781) 304 K/CU MM 150-450 MEAN PLATELET VOLUME (BEAKER) (test vkpl=574) 9.9 fL 9.4-12.3 NUCLEATED RED BLOOD CELLS (BEAKER) (test 0 /100 WBC 0-0 vfjr=106) NEUTROPHILS RELATIVE PERCENT (BEAKER) (test 84 % waxx=369) LYMPHOCYTES RELATIVE PERCENT (BEAKER) (test 7 % gxvf=255) MONOCYTES RELATIVE PERCENT (BEAKER) (test 5 % lykw=197) EOSINOPHILS RELATIVE PERCENT (BEAKER) (test 3 % tdjy=166) BASOPHILS RELATIVE PERCENT (BEAKER) (test 0 % vdqr=953) NEUTROPHILS ABSOLUTE COUNT (BEAKER) (test 11.17 K/ L 1.56-6.13 laxv=564) LYMPHOCYTES ABSOLUTE COUNT (BEAKER) (test 0.95 K/ L 1.18-3.74 iejm=736) MONOCYTES ABSOLUTE COUNT (BEAKER) (test 0.70 K/ L 0.24-0.36 xwmn=587) EOSINOPHILS ABSOLUTE COUNT (BEAKER) (test 0.37 K/ L 0.04-0.36 qwcz=202) BASOPHILS ABSOLUTE COUNT (BEAKER) (test 0.04 K/ L 0.01-0.08 dycn=674) IMMATURE GRANULOCYTES-RELATIVE PERCENT (BEAKER) 1 % 0-1 (test tyjv=4265) POCT-GLUCOSE [id number] 07:10:00 Test Item Value Reference Range Comments POC-GLUCOSE METER (BEAKER) 177 mg/dL 70-110 TESTED AT [facility] [address] [facility] (test gnmj=0710) [facility] [address] BASIC METABOLIC [id number] 06:52:00 Test Item Value Reference Range Comments SODIUM (BEAKER) (test 137 meq/L 136-145 gffn=898) POTASSIUM (BEAKER) (test 4.0 meq/L 3.5-5.1 xqoq=217) CHLORIDE (BEAKER) (test 97 meq/L 98-107 ldwu=295) CO2 (BEAKER) (test 30 meq/L 22-29 tiwj=385) BLOOD UREA NITROGEN 46 mg/dL 7-21 (BEAKER) (test azjh=121) CREATININE (BEAKER) (test 6.47 mg/dL 0.57-1.25 smpn=243) GLUCOSE RANDOM (BEAKER) 148 mg/dL 70-105 (test xljr=573) CALCIUM (BEAKER) (test 9.1 mg/dL 8.4-10.2 gzue=086) EGFR (BEAKER) (test 8 mL/min/1.73 sq m ESTIMATED GFR IS NOT aabx=0103) ACCURATE CREATININE CLEARANCE IN PREDICTING GLOMERULAR FILTRATION RATE. ESTIMATED GFR IS NOT APPLICABLE FOR DIALYSIS PATIENTS. VANCOMYCIN LEVEL, [id number] 06:43:00 Test Item Value Reference Range Comments VANCOMYCIN RANDOM (BEAKER) (test urwg=774) 19.0 ug/mL Reference Range: No [id number] 06:25:00 Test Item Value Reference Range Comments PROTIME (BEAKER) (test zzyb=708) 14.1 seconds 11.7-14.7 INR (BEAKER) (test gyaj=451) 1.1 <=5.9 PARTIAL THROMBOPLASTIN TIME (BEAKER) (test 39.6 seconds 22.5-36.0 hogk=283) RECOMMENDED COUMADIN/WARFARIN INR THERAPY RANGESSTANDARD DOSE: 2.0 - 3.0 Includes: PROPHYLAXIS forvenous thrombosis, systemic embolization; TREATMENT for venous thrombosis and/or pulmonary embolus.HIGH RISK: Target INR is 2.5-3.5 for patients with mechanical heart valves.POCT-GLUCOSE [id number] 23:37:00 Test Item Value Reference Range Comments POC-GLUCOSE METER (BEAKER) 258 mg/dL 70-110 TESTED AT [address] (test lumb=6163) [place] [address] POCT-GLUCOSE [id number] 12:31:00 Test Item Value Reference Range Comments POC-GLUCOSE METER (BEAKER) 184 mg/dL 70-110 TESTED AT [address] (test qeow=6189) [place] [address] BASIC METABOLIC [id number] 12:27:00 Test Item Value Reference Range Comments SODIUM (BEAKER) (test 136 meq/L 136-145 oxrq=757) POTASSIUM (BEAKER) (test 4.0 meq/L 3.5-5.1 makc=130) CHLORIDE (BEAKER) (test 99 meq/L 98-107 btsf=360) CO2 (BEAKER) (test 26 meq/L 22-29 bnup=211) BLOOD UREA NITROGEN 29 mg/dL 7-21 (BEAKER) (test zxin=213) CREATININE (BEAKER) (test 4.92 mg/dL 0.57-1.25 yjgg=645) GLUCOSE RANDOM (BEAKER) 129 mg/dL 70-105 (test cyrc=769) CALCIUM (BEAKER) (test 9.0 mg/dL 8.4-10.2 xozy=321) EGFR (BEAKER) (test 11 mL/min/1.73 sq m ESTIMATED GFR IS NOT zmsc=1359) ACCURATE CREATININE CLEARANCE IN PREDICTING GLOMERULAR FILTRATION RATE. ESTIMATED GFR IS NOT APPLICABLE FOR DIALYSIS PATIENTS. CBC W/PLT COUNT & AUTO [id number] 12:20:00 Test Item Value Reference Range Comments WHITE BLOOD CELL COUNT (BEAKER) (test tbfk=245) 14.6 K/ L 3.5-10.5 RED BLOOD CELL COUNT (BEAKER) (test fnmt=006) 2.69 M/ L 3.93-5.22 HEMOGLOBIN (BEAKER) (test hzav=791) 7.4 GM/DL 11.2-15.7 HEMATOCRIT (BEAKER) (test fyvc=837) 25.1 % 34.1-44.9 MEAN CORPUSCULAR VOLUME (BEAKER) (test scim=163) 93.3 fL 79.4-94.8 MEAN CORPUSCULAR HEMOGLOBIN (BEAKER) (test 27.5 pg 25.6-32.2 utte=852) MEAN CORPUSCULAR HEMOGLOBIN CONC (BEAKER) (test 29.5 GM/DL 32.2-35.5 ftgb=450) RED CELL DISTRIBUTION WIDTH (BEAKER) (test 15.5 % 11.7-14.4 mbko=633) PLATELET COUNT (BEAKER) (test buje=749) 295 K/CU MM 150-450 MEAN PLATELET VOLUME (BEAKER) (test gikt=758) 9.8 fL 9.4-12.3 NUCLEATED RED BLOOD CELLS (BEAKER) (test 0 /100 WBC 0-0 nynm=619) NEUTROPHILS RELATIVE PERCENT (BEAKER) (test 83 % gask=229) LYMPHOCYTES RELATIVE PERCENT (BEAKER) (test 8 % wfgd=307) MONOCYTES RELATIVE PERCENT (BEAKER) (test 6 % ukjo=627) EOSINOPHILS RELATIVE PERCENT (BEAKER) (test 2 % trmm=150) BASOPHILS RELATIVE PERCENT (BEAKER) (test 1 % uodl=687) NEUTROPHILS ABSOLUTE COUNT (BEAKER) (test 12.12 K/ L 1.56-6.13 ykzy=284) LYMPHOCYTES ABSOLUTE COUNT (BEAKER) (test 1.19 K/ L 1.18-3.74 jjrd=105) MONOCYTES ABSOLUTE COUNT (BEAKER) (test 0.81 K/ L 0.24-0.36 gpfm=165) EOSINOPHILS ABSOLUTE COUNT (BEAKER) (test 0.31 K/ L 0.04-0.36 chgd=779) BASOPHILS ABSOLUTE COUNT (BEAKER) (test 0.07 K/ L 0.01-0.08 kdxp=467) IMMATURE GRANULOCYTES-RELATIVE PERCENT (BEAKER) 1 % 0-1 (test udxf=9750) RAD, HIP, 1 VIEW, [id number] 11:34:00Reason for exam:->R hip painShould this be [...] MDReport Verified Date/Time: 2018 11:34:51 Reading Location: [facility] Reading Room POCT- GLUCOSE [id number] 08:01:00 Test Item Value Reference Range Comments POC-GLUCOSE METER (BERUSSELL) 189 mg/dL 70-110 TESTED AT [facility] [address] [facility] (test sfoq=6259) [place] [address] VANCOMYCIN LEVEL, [id number] 06:44:00 Test Item Value Reference Range Comments VANCOMYCIN RANDOM (BEAKER) (test dchb=359) 19.8 ug/mL Reference Range: No NormalsGENTAMICIN LEVEL, [id number] 21:58:00 Test Item Value Reference Range Comments GENTAMICIN TROUGH (BEAKER) (test cbjw=396) 1.5 ug/mL 0.5-1.0 Dosing Target Level (mcg/mL)1-1.5 mg/kg q 8-12 HR 0.5- 1.03-7 mg/kg q 24 HR <0.5Before gent dosePOCT-GLUCOSE [id number] 20:39:00 Test Item Value Reference Range Comments POC-GLUCOSE METER (BEAKER) 229 mg/dL 70-110 TESTED AT [address] (test mtfy=0092) [facility] [place] [address] POCT-GLUCOSE [id number] 20:02:00 Test Item Value Reference Range Comments POC-GLUCOSE METER (BEAKER) 251 mg/dL 70-110 TESTED AT [address] (test zyqo=7010) [facility] [address] POCT-GLUCOSE [id number] 13:49:00 Test Item Value Reference Range Comments POC-GLUCOSE METER (BEAKER) 211 mg/dL 70-110 TESTED AT [address] (test zyhc=7959) [place] [id number] POCT-GLUCOSE [id number] 08:02:00 Test Item Value Reference Range Comments POC-GLUCOSE METER (BEAKER) 182 mg/dL 70-110 TESTED AT [address] (test ijvx=0572) [facility] [address] BASIC METABOLIC [id number] 07:28:00 Test Item Value Reference Range Comments SODIUM (BEAKER) (test 138 meq/L 136-145 njdg=835) POTASSIUM (BEAKER) (test 4.1 meq/L 3.5-5.1 glnd=893) CHLORIDE (BEAKER) (test 101 meq/L 98-107 sjyn=392) CO2 (BEAKER) (test 26 meq/L 22-29 rrdu=815) BLOOD UREA NITROGEN 42 mg/dL 7-21 (BEAKER) (test zkxp=443) CREATININE (BEAKER) (test 6.85 mg/dL 0.57-1.25 nufl=771) GLUCOSE RANDOM (BEAKER) 138 mg/dL 70-105 (test lccl=767) CALCIUM (BEAKER) (test 8.9 mg/dL 8.4-10.2 dfrw=270) EGFR (BEAKER) (test 7 mL/min/1.73 sq m ESTIMATED GFR IS NOT ttby=7504) ACCURATE CREATININE CLEARANCE IN PREDICTING GLOMERULAR FILTRATION RATE. ESTIMATED GFR IS NOT APPLICABLE FOR DIALYSIS PATIENTS. VANCOMYCIN LEVEL, [id number] 07:07:00 Test Item Value Reference Range Comments VANCOMYCIN RANDOM (BEAKER) (test bnzg=173) 25.1 ug/mL Reference Range: No NormalsCBC W/PLT COUNT & AUTO [id number] 07: 02:00 Test Item Value Reference Range Comments WHITE BLOOD CELL COUNT (BEAKER) (test akuz=591) 15.1 K/ L 3.5-10.5 RED BLOOD CELL COUNT (BEAKER) (test ppoh=778) 2.67 M/ L 3.93-5.22 HEMOGLOBIN (BEAKER) (test liez=072) 7.4 GM/DL 11.2-15.7 HEMATOCRIT (BEAKER) (test eoce=474) 24.8 % 34.1-44.9 MEAN CORPUSCULAR VOLUME (BEAKER) (test kxsa=562) 92.9 fL 79.4-94.8 MEAN CORPUSCULAR HEMOGLOBIN (BEAKER) (test 27.7 pg 25.6-32.2 uzrk=232) MEAN CORPUSCULAR HEMOGLOBIN CONC (BEAKER) (test 29.8 GM/DL 32.2-35.5 egty=755) RED CELL DISTRIBUTION WIDTH (BEAKER) (test 15.9 % 11.7-14.4 hwyk=816) PLATELET COUNT (BEAKER) (test jqum=786) 303 K/CU MM 150-450 MEAN PLATELET VOLUME (BEAKER) (test fvkp=892) 10.1 fL 9.4-12.3 NUCLEATED RED BLOOD CELLS (BEAKER) (test 0 /100 WBC 0-0 ygzs=268) NEUTROPHILS RELATIVE PERCENT (BEAKER) (test 85 % kjli=649) LYMPHOCYTES RELATIVE PERCENT (BEAKER) (test 6 % ghdo=843) MONOCYTES RELATIVE PERCENT (BEAKER) (test 6 % qtfe=842) EOSINOPHILS RELATIVE PERCENT (BEAKER) (test 2 % xppx=372) BASOPHILS RELATIVE PERCENT (BEAKER) (test 0 % sisz=246) NEUTROPHILS ABSOLUTE COUNT (BEAKER) (test 12.90 K/ L 1.56-6.13 jeqw=707) LYMPHOCYTES ABSOLUTE COUNT (BEAKER) (test 0.85 K/ L 1.18-3.74 jull=110) MONOCYTES ABSOLUTE COUNT (BEAKER) (test 0.97 K/ L 0.24-0.36 sbyn=144) EOSINOPHILS ABSOLUTE COUNT (BEAKER) (test 0.25 K/ L 0.04-0.36 pntl=661) BASOPHILS ABSOLUTE COUNT (BEAKER) (test 0.03 K/ L 0.01-0.08 rfip=181) IMMATURE GRANULOCYTES-RELATIVE PERCENT (BEAKER) 1 % 0-1 (test pjlx=4844) POCT-GLUCOSE [id number] 21:24:00 Test Item Value Reference Range Comments POC-GLUCOSE METER (BEAKER) 189 mg/dL 70-110 TESTED AT [address] (test mhdt=4308) [place] [id number] POCT-GLUCOSE [id number] 17:50:00 Test Item Value Reference Range Comments POC-GLUCOSE METER (BEAKER) 215 mg/dL 70-110 TESTED AT [address] (test ssjz=1439) [place] [address] POCT-GLUCOSE [id number] 13:23:00 Test Item Value Reference Range Comments POC-GLUCOSE METER (BEAKER) 270 mg/dL 70-110 TESTED AT [address] (test vguq=7922) [place] [id number] POCT-GLUCOSE [id number] 08:37:00 Test Item Value Reference Range Comments POC-GLUCOSE METER (BEAKER) 138 mg/dL 70-110 TESTED AT [address] (test ktoh=8853) [facility] [address] BASIC METABOLIC [id number] 06:54:00 Test Item Value Reference Range Comments SODIUM (BEAKER) (test 138 meq/L 136-145 iitg=768) POTASSIUM (BEAKER) (test 3.9 meq/L 3.5-5.1 gexe=624) CHLORIDE (BEAKER) (test 100 meq/L 98-107 yrjx=875) CO2 (BEAKER) (test 26 meq/L 22-29 nsyv=059) BLOOD UREA NITROGEN 27 mg/dL 7-21 (BEAKER) (test jhcv=995) CREATININE (BEAKER) (test 5.01 mg/dL 0.57-1.25 qwyc=733) GLUCOSE RANDOM (BEAKER) 117 mg/dL 70-105 (test yaqw=920) CALCIUM (BEAKER) (test 8.6 mg/dL 8.4-10.2 rrnc=319) EGFR (BEAKER) (test 11 mL/min/1.73 sq m ESTIMATED GFR IS NOT qnhh=8896) ACCURATE CREATININE CLEARANCE IN PREDICTING GLOMERULAR FILTRATION RATE. ESTIMATED GFR IS NOT APPLICABLE FOR DIALYSIS PATIENTS. [id number] 06:53:00 Test Item Value Reference Range Comments PHOSPHORUS (BEAKER) (test wvik=653) 4.1 mg/dL 2.3-4.7 [id number] 06:53:00 Test Item Value Reference Range Comments MAGNESIUM (BEAKER) (test wkdp=116) 1.9 mg/dL 1.6-2.6 VANCOMYCIN LEVEL, [id number] 06:51:00 Test Item Value Reference Range Comments VANCOMYCIN RANDOM (BEAKER) (test xwcy=806) 27.5 ug/mL Reference Range: No NormalsCBC W/PLT COUNT & AUTO [id number] 06: 30:00 Test Item Value Reference Range Comments WHITE BLOOD CELL COUNT (BEAKER) (test shqj=227) 14.6 K/ L 3.5-10.5 RED BLOOD CELL COUNT (BEAKER) (test rmqa=530) 2.82 M/ L 3.93-5.22 HEMOGLOBIN (BEAKER) (test vxta=899) 7.8 GM/DL 11.2-15.7 HEMATOCRIT (BEAKER) (test xxkt=254) 25.6 % 34.1-44.9 MEAN CORPUSCULAR VOLUME (BEAKER) (test rxof=597) 90.8 fL 79.4-94.8 MEAN CORPUSCULAR HEMOGLOBIN (BEAKER) (test 27.7 pg 25.6-32.2 hqat=248) MEAN CORPUSCULAR HEMOGLOBIN CONC (BEAKER) (test 30.5 GM/DL 32.2-35.5 xieq=483) RED CELL DISTRIBUTION WIDTH (BEAKER) (test 15.8 % 11.7-14.4 cvwu=732) PLATELET COUNT (BEAKER) (test qelu=289) 266 K/CU MM 150-450 MEAN PLATELET VOLUME (BEAKER) (test uhkw=946) 10.2 fL 9.4-12.3 NUCLEATED RED BLOOD CELLS (BEAKER) (test 0 /100 WBC 0-0 lviv=872) NEUTROPHILS RELATIVE PERCENT (BEAKER) (test 82 % skka=068) LYMPHOCYTES RELATIVE PERCENT (BEAKER) (test 7 % jjjz=830) MONOCYTES RELATIVE PERCENT (BEAKER) (test 9 % qblq=168) EOSINOPHILS RELATIVE PERCENT (BEAKER) (test 1 % qnsa=203) BASOPHILS RELATIVE PERCENT (BEAKER) (test 0 % sicg=885) NEUTROPHILS ABSOLUTE COUNT (BEAKER) (test 11.86 K/ L 1.56-6.13 mjyh=985) LYMPHOCYTES ABSOLUTE COUNT (BEAKER) (test 1.00 K/ L 1.18-3.74 vueb=557) MONOCYTES ABSOLUTE COUNT (BEAKER) (test 1.24 K/ L 0.24-0.36 nixu=169) EOSINOPHILS ABSOLUTE COUNT (BEAKER) (test 0.21 K/ L 0.04-0.36 udhy=628) BASOPHILS ABSOLUTE COUNT (BEAKER) (test 0.04 K/ L 0.01-0.08 yzfp=745) IMMATURE GRANULOCYTES-RELATIVE PERCENT (BEAKER) 1 % 0-1 (test njks=8930) POCT-GLUCOSE [id number] 00:41:00 Test Item Value Reference Range Comments POC-GLUCOSE METER (BEAKER) 139 mg/dL 70-110 TESTED AT [address] (test gmig=0821) [place] [address] HEMOGLOBIN AND [id number] 23:23:00 Test Item Value Reference Range Comments HEMOGLOBIN (BEAKER) (test hmbr=525) 9.0 GM/DL 11.2-15.7 HEMATOCRIT (BEAKER) (test sxes=936) 29.7 % 34.1-44.9 Check after HD after she receives her blood transfusionPOCT-GLUCOSE [id number] 17:53:00 Test Item Value Reference Range Comments POC-GLUCOSE METER (BEAKER) 177 mg/dL 70-110 TESTED AT [address] (test ctyp=3659) [place] [address] POCT-GLUCOSE [id number] 13:03:00 Test Item Value Reference Range Comments POC-GLUCOSE METER (BEAKER) 171 mg/dL 70-110 TESTED AT [address] (test hjid=5124) [place] [address] BLOOD [id number] 09:44:00 Test Item Value Reference Range Comments CULTURE (BEAKER) (test METHICILLIN RESISTANT From Aerobic And jcos=2203) STAPHYLOCOCCUS AUREUS Anaerobic Bottles Methicillin resistant Staphylococcus aureus Clindamycin (test code=10) Erythromycin (test code=4) Linezolid (test code=40) Nitrofurantoin (test code=23) Oxacillin (test code=14) Rifampin (test code=43) Tetracycline (test code=2) Trimethoprim + Sulfamethoxazole (test code=47) Vancomycin (test code=13) CULTURE (BEAKER) (test From Aerobic Bottle lnyn=4233) Only Methicillin resistant Staphylococcus aureusSame as first isolate. GRAM STAIN RESULT From aerobic and (BEAKER) (test enff=5711) anaerobic bottles: gram positive cocci in clusters CT, [id number] 09:28:00FINAL REPORT ABDOMINAL AND PELVIS CT DATED [...] Verified Date/Time: 2017 09:28:06 Reading Location: [address] Body Reading Room PROTHROMBIN [id number] 09:18:00 Test Item Value Reference Range Comments PROTIME (BEAKER) (test ijwc=133) 14.5 seconds 11.7-14.7 INR (BEAKER) (test ctrs=109) 1.1 <=5.9 RECOMMENDED COUMADIN/WARFARIN INR THERAPY RANGESSTANDARD DOSE: 2.0 - 3.0 Includes: PROPHYLAXIS forvenous thrombosis, systemic embolization; TREATMENT for venous thrombosis and/or pulmonary embolus.HIGH RISK: Target INR is 2.5-3.5 for patients with mechanical heart valves.HEMOGLOBIN AND [id number] 09 :08:00 Test Item Value Reference Range Comments HEMOGLOBIN (BEAKER) (test mpza=554) 7.0 GM/DL 11.2-15.7 HEMATOCRIT (BEAKER) (test aneg=155) 23.2 % 34.1-44.9 BASIC METABOLIC [id number] 06:55:00 Test Item Value Reference Range Comments SODIUM (BEAKER) (test 137 meq/L 136-145 bhem=583) POTASSIUM (BEAKER) (test 4.4 meq/L 3.5-5.1 zyaf=273) CHLORIDE (BEAKER) (test 101 meq/L 98-107 uoxt=329) CO2 (BEAKER) (test 23 meq/L 22-29 mumi=485) BLOOD UREA NITROGEN 56 mg/dL 7-21 (BEAKER) (test hyyn=450) CREATININE (BEAKER) (test 8.16 mg/dL 0.57-1.25 lmgu=772) GLUCOSE RANDOM (BEAKER) 131 mg/dL 70-105 (test espp=226) CALCIUM (BEAKER) (test 8.4 mg/dL 8.4-10.2 avfl=695) EGFR (BEAKER) (test 6 mL/min/1.73 sq m ESTIMATED GFR IS NOT wrti=9862) ACCURATE CREATININE CLEARANCE IN PREDICTING GLOMERULAR FILTRATION RATE. ESTIMATED GFR IS NOT APPLICABLE FOR DIALYSIS PATIENTS. [id number] 06:40:00 Test Item Value Reference Range Comments PARTIAL THROMBOPLASTIN TIME (BEAKER) (test 91.0 seconds 22.5-36.0 ewzo=876) CBC W/PLT COUNT & AUTO [id number] 06:33:00 Test Item Value Reference Range Comments WHITE BLOOD CELL COUNT (BEAKER) (test ujkn=794) 16.6 K/ L 3.5-10.5 RED BLOOD CELL COUNT (BEAKER) (test ijmo=978) 2.31 M/ L 3.93-5.22 HEMOGLOBIN (BEAKER) (test yubs=649) 6.4 GM/DL 11.2-15.7 HEMATOCRIT (BEAKER) (test ulgd=602) 21.3 % 34.1-44.9 MEAN CORPUSCULAR VOLUME (BEAKER) (test qqvj=505) 92.2 fL 79.4-94.8 MEAN CORPUSCULAR HEMOGLOBIN (BEAKER) (test 27.7 pg 25.6-32.2 wkyl=100) MEAN CORPUSCULAR HEMOGLOBIN CONC (BEAKER) (test 30.0 GM/DL 32.2-35.5 phuw=193) RED CELL DISTRIBUTION WIDTH (BEAKER) (test 15.0 % 11.7-14.4 kkzo=182) PLATELET COUNT (BEAKER) (test lmks=943) 276 K/CU MM 150-450 MEAN PLATELET VOLUME (BEAKER) (test ywtt=226) 10.4 fL 9.4-12.3 NUCLEATED RED BLOOD CELLS (BEAKER) (test 0 /100 WBC 0-0 tgco=705) NEUTROPHILS RELATIVE PERCENT (BEAKER) (test 82 % adac=481) LYMPHOCYTES RELATIVE PERCENT (BEAKER) (test 7 % futp=011) MONOCYTES RELATIVE PERCENT (BEAKER) (test 8 % cnav=068) EOSINOPHILS RELATIVE PERCENT (BEAKER) (test 1 % zxnz=317) BASOPHILS RELATIVE PERCENT (BEAKER) (test 0 % ntga=425) NEUTROPHILS ABSOLUTE COUNT (BEAKER) (test 13.67 K/ L 1.56-6.13 lrsv=630) LYMPHOCYTES ABSOLUTE COUNT (BEAKER) (test 1.14 K/ L 1.18-3.74 kxpz=782) MONOCYTES ABSOLUTE COUNT (BEAKER) (test 1.38 K/ L 0.24-0.36 xcyw=960) EOSINOPHILS ABSOLUTE COUNT (BEAKER) (test 0.08 K/ L 0.04-0.36 bgbx=524) BASOPHILS ABSOLUTE COUNT (BEAKER) (test 0.06 K/ L 0.01-0.08 glia=981) IMMATURE GRANULOCYTES-RELATIVE PERCENT (BEAKER) 2 % 0-1 (test ywdz=7932) POCT-GLUCOSE [id number] 21:47:00 Test Item Value Reference Range Comments POC-GLUCOSE METER (BEAKER) 173 mg/dL 70-110 TESTED AT [address] (test gizp=0797) [place] [address] [id number] 18:27:00 Test Item Value Reference Range Comments PARTIAL THROMBOPLASTIN TIME (BEAKER) (test 78.5 seconds 22.5-36.0 bnvr=081) POCT-GLUCOSE [id number] 13:23:00 Test Item Value Reference Range Comments POC-GLUCOSE METER (BEAKER) 176 mg/dL 70-110 TESTED AT [address] (test lxnu=7773) [place] [address] [id number] 11:24:00 Test Item Value Reference Range Comments PARTIAL THROMBOPLASTIN TIME (BEAKER) (test 83.7 seconds 22.5-36.0 ecka=083) POCT-GLUCOSE [id number] 08:13:00 Test Item Value Reference Range Comments POC-GLUCOSE METER (BEAKER) 189 mg/dL 70-110 TESTED AT [address] (test xyai=9869) [place] [address] BASIC METABOLIC [id number] 06:03:00 Test Item Value Reference Range Comments SODIUM (BEAKER) (test 135 meq/L 136-145 vmti=632) POTASSIUM (BEAKER) (test 3.9 meq/L 3.5-5.1 ftyn=046) CHLORIDE (BEAKER) (test 100 meq/L 98-107 qhfz=534) CO2 (BEAKER) (test 23 meq/L 22-29 qwwf=544) BLOOD UREA NITROGEN 41 mg/dL 7-21 (BEAKER) (test haqz=389) CREATININE (BEAKER) (test 6.33 mg/dL 0.57-1.25 eimm=331) GLUCOSE RANDOM (BEAKER) 154 mg/dL 70-105 (test fxwl=529) CALCIUM (BEAKER) (test 8.8 mg/dL 8.4-10.2 cjix=207) EGFR (BEAKER) (test 8 mL/min/1.73 sq m ESTIMATED GFR IS NOT zprk=7989) ACCURATE CREATININE CLEARANCE IN PREDICTING GLOMERULAR FILTRATION RATE. ESTIMATED GFR IS NOT APPLICABLE FOR DIALYSIS PATIENTS. VANCOMYCIN LEVEL, [id number] 05:41:00 Test Item Value Reference Range Comments VANCOMYCIN RANDOM (BEAKER) (test diyw=519) 34.9 ug/mL Reference Range: No NormalsCBC W/PLT COUNT & AUTO [id number] 05: 36:00 Test Item Value Reference Range Comments WHITE BLOOD CELL COUNT (BEAKER) (test rjsi=047) 15.0 K/ L 3.5-10.5 RED BLOOD CELL COUNT (BEAKER) (test puhz=167) 2.79 M/ L 3.93-5.22 HEMOGLOBIN (BEAKER) (test voga=648) 7.6 GM/DL 11.2-15.7 HEMATOCRIT (BEAKER) (test vvxw=138) 25.8 % 34.1-44.9 MEAN CORPUSCULAR VOLUME (BEAKER) (test adit=601) 92.5 fL 79.4-94.8 MEAN CORPUSCULAR HEMOGLOBIN (BEAKER) (test 27.2 pg 25.6-32.2 vzti=551) MEAN CORPUSCULAR HEMOGLOBIN CONC (BEAKER) (test 29.5 GM/DL 32.2-35.5 ocyb=120) RED CELL DISTRIBUTION WIDTH (BEAKER) (test 14.6 % 11.7-14.4 odcx=368) PLATELET COUNT (BEAKER) (test argg=778) 229 K/CU MM 150-450 MEAN PLATELET VOLUME (BEAKER) (test gpnu=622) 10.6 fL 9.4-12.3 NUCLEATED RED BLOOD CELLS (BEAKER) (test 0 /100 WBC 0-0 sopz=310) NEUTROPHILS RELATIVE PERCENT (BEAKER) (test 85 % qgto=736) LYMPHOCYTES RELATIVE PERCENT (BEAKER) (test 6 % endk=886) MONOCYTES RELATIVE PERCENT (BEAKER) (test 7 % egwf=726) EOSINOPHILS RELATIVE PERCENT (BEAKER) (test 1 % mhrp=919) BASOPHILS RELATIVE PERCENT (BEAKER) (test 0 % rmju=008) NEUTROPHILS ABSOLUTE COUNT (BEAKER) (test 12.75 K/ L 1.56-6.13 huvp=980) LYMPHOCYTES ABSOLUTE COUNT (BEAKER) (test 0.92 K/ L 1.18-3.74 souz=921) MONOCYTES ABSOLUTE COUNT (BEAKER) (test 1.00 K/ L 0.24-0.36 swij=720) EOSINOPHILS ABSOLUTE COUNT (BEAKER) (test 0.17 K/ L 0.04-0.36 bzeb=800) BASOPHILS ABSOLUTE COUNT (BEAKER) (test 0.05 K/ L 0.01-0.08 tcrv=789) IMMATURE GRANULOCYTES-RELATIVE PERCENT (BEAKER) 1 % 0-1 (test wpit=1596) [id number] 05:31:00 Test Item Value Reference Range Comments PARTIAL THROMBOPLASTIN TIME (BEAKER) (test 69.7 seconds 22.5-36.0 sgsb=883) POCT-GLUCOSE [id number] 22:11:00 Test Item Value Reference Range Comments POC-GLUCOSE METER (BEAKER) 175 mg/dL 70-110 TESTED AT [address] (test eudq=4559) [place] [address] [id number] 20:48:00 Test Item Value Reference Range Comments PARTIAL THROMBOPLASTIN TIME (BEAKER) (test 61.5 seconds 22.5-36.0 ulok=174) [id number] 19:00:00 Test Item Value Reference Range Comments PARTIAL THROMBOPLASTIN TIME (BEAKER) (test > seconds 22.5-36.0 muwr=630) POCT-GLUCOSE [id number] 17:10:00 Test Item Value Reference Range Comments POC-GLUCOSE METER (BEAKER) 211 mg/dL 70-110 TESTED AT [address] (test pkek=5981) [place] [address] POCT-GLUCOSE [id number] 12:54:00 Test Item Value Reference Range Comments POC-GLUCOSE METER (BEAKER) 181 mg/dL 70-110 TESTED AT [address] (test howe=2101) [place] [address] [id number] 11:03:00 Test Item Value Reference Range Comments PARTIAL THROMBOPLASTIN TIME (BEAKER) (test 83.7 seconds 22.5-36.0 jonx=041) CATHETER TIP [id number] 09:36:00 Test Item Value Reference Range Comments CULTURE (BEAKER) (test cext=3540) No growth POCT-GLUCOSE [id number] 08:14:00 Test Item Value Reference Range Comments POC-GLUCOSE METER (BEAKER) 191 mg/dL 70-110 TESTED AT [address] (test hmai=4228) [facility] [address] [id number] 03:56:00 Test Item Value Reference Range Comments PARTIAL THROMBOPLASTIN TIME (BEAKER) (test 104.2 seconds 22.5-36.0 hcop=599) POCT-GLUCOSE [id number] 03:23:00 Test Item Value Reference Range Comments POC-GLUCOSE METER (BEAKER) 152 mg/dL 70-110 TESTED AT [address] (test lofm=9944) [facility] [address] POCT-GLUCOSE [id number] 22:14:00 Test Item Value Reference Range Comments POC-GLUCOSE METER (BEAKER) 193 mg/dL 70-110 TESTED AT [address] (test vohk=7620) [place] [id number] 21:14:00 Test Item Value Reference Range Comments PARTIAL THROMBOPLASTIN TIME (BEAKER) (test 82.5 seconds 22.5-36.0 mohq=237) POCT-GLUCOSE [id number] 19:35:00 Test Item Value Reference Range Comments POC-GLUCOSE METER (BEAKER) 156 mg/dL 70-110 TESTED AT [address] (test rwls=6111) [place] [id number] VANCOMYCIN LEVEL, [id number] 18:48:00 Test Item Value Reference Range Comments VANCOMYCIN RANDOM (BEAKER) (test nkgo=315) 12.6 ug/mL Reference Range: No NormalsPlease draw a random vancomycin level at end of dialysis tomorrow 11/25HEPATITIS B SURFACE [id number] 15:50:00 Test Item Value Reference Range Comments HEPATITIS B SURFACE ANTIGEN (2) (BEAKER) (test Nonreactive Nonreactive cwpd=4172) [id number] 15:27:00 Test Item Value Reference Range Comments PARTIAL THROMBOPLASTIN TIME (BEAKER) (test 64.9 seconds 22.5-36.0 efhw=959) BASIC METABOLIC [id number] 14:04:00 Test Item Value Reference Range Comments SODIUM (BEAKER) (test 134 meq/L 136-145 bnxw=568) POTASSIUM (BEAKER) (test 3.9 meq/L 3.5-5.1 cmfw=941) CHLORIDE (BEAKER) (test 100 meq/L 98-107 viun=093) CO2 (BEAKER) (test 22 meq/L 22-29 urbk=216) BLOOD UREA NITROGEN 68 mg/dL 7-21 (BEAKER) (test fgzg=857) CREATININE (BEAKER) (test 8.46 mg/dL 0.57-1.25 ewnm=682) GLUCOSE RANDOM (BEAKER) 156 mg/dL 70-105 (test hcit=400) CALCIUM (BEAKER) (test 8.7 mg/dL 8.4-10.2 aaxe=562) EGFR (BEAKER) (test 6 mL/min/1.73 sq m ESTIMATED GFR IS NOT qnvu=6603) ACCURATE CREATININE CLEARANCE IN PREDICTING GLOMERULAR FILTRATION RATE. ESTIMATED GFR IS NOT APPLICABLE FOR DIALYSIS PATIENTS. [id number] 13:33:00 Test Item Value Reference Range Comments PARTIAL THROMBOPLASTIN TIME (BEAKER) (test 67.9 seconds 22.5-36.0 cexw=977) BLOOD [id number] 10:14:00 Test Item Value Reference Range Comments CULTURE (BEAKER) From Aerobic And Anaerobic (test dbgv=4210) Bottles Staphylococcus aureusRefer to previous culture ofMethicillin resistant Staphylococcus aureus GRAM STAIN RESULT From aerobic and (BEAKER) (test anaerobic bottles: jxpx=8500) gram positive cocci in clusters BLOOD [id number] 10:12:00 Test Item Value Reference Range Comments CULTURE (BEAKER) (test METHICILLIN RESISTANT From Aerobic And phpw=0471) STAPHYLOCOCCUS AUREUS Anaerobic Bottles Methicillin resistant Staphylococcus aureus Clindamycin (test code=10) Erythromycin (test code=4) Linezolid (test code=40) Nitrofurantoin (test code=23) Oxacillin (test code=14) Rifampin (test code=43) Tetracycline (test code=2) Trimethoprim + Sulfamethoxazole (test code=47) Vancomycin (test code=13) GRAM STAIN RESULT From aerobic and (BEAKER) (test sapk=8028) anaerobic bottles: gram positive cocci in clusters POCT-GLUCOSE [id number] 08:05:00 Test Item Value Reference Range Comments POC-GLUCOSE METER (BEAKER) 182 mg/dL 70-110 TESTED AT [facility] [address] [facility] (test ggch=2783) [facility] [address] [id number] 06:49:00 Test Item Value Reference Range Comments PARTIAL THROMBOPLASTIN TIME (BEAKER) (test 83.0 seconds 22.5-36.0 cnnf=904) CBC W/PLT COUNT & AUTO [id number] 05:45:00 Test Item Value Reference Range Comments WHITE BLOOD CELL COUNT (BEAKER) (test xcpd=584) 8.1 K/ L 3.5-10.5 RED BLOOD CELL COUNT (BEAKER) (test prvg=676) 2.88 M/ L 3.93-5.22 HEMOGLOBIN (BEAKER) (test syup=567) 8.1 GM/DL 11.2-15.7 HEMATOCRIT (BEAKER) (test uwxg=133) 26.6 % 34.1-44.9 MEAN CORPUSCULAR VOLUME (BEAKER) (test tvyw=269) 92.4 fL 79.4-94.8 MEAN CORPUSCULAR HEMOGLOBIN (BEAKER) (test 28.1 pg 25.6-32.2 xixg=115) MEAN CORPUSCULAR HEMOGLOBIN CONC (BEAKER) (test 30.5 GM/DL 32.2-35.5 vkmw=852) RED CELL DISTRIBUTION WIDTH (BEAKER) (test 14.9 % 11.7-14.4 zmtk=348) PLATELET COUNT (BEAKER) (test dndo=880) 117 K/CU MM 150-450 MEAN PLATELET VOLUME (BEAKER) (test pbie=684) 10.5 fL 9.4-12.3 NUCLEATED RED BLOOD CELLS (BEAKER) (test 0 /100 WBC 0-0 wwlr=663) NEUTROPHILS RELATIVE PERCENT (BEAKER) (test 72 % gols=484) LYMPHOCYTES RELATIVE PERCENT (BEAKER) (test 11 % shgw=572) MONOCYTES RELATIVE PERCENT (BEAKER) (test 10 % btzn=430) EOSINOPHILS RELATIVE PERCENT (BEAKER) (test 5 % nsaj=091) BASOPHILS RELATIVE PERCENT (BEAKER) (test 1 % lhvm=603) NEUTROPHILS ABSOLUTE COUNT (BEAKER) (test 5.83 K/ L 1.56-6.13 occi=254) LYMPHOCYTES ABSOLUTE COUNT (BEAKER) (test 0.92 K/ L 1.18-3.74 ukfo=464) MONOCYTES ABSOLUTE COUNT (BEAKER) (test 0.79 K/ L 0.24-0.36 oqwm=965) EOSINOPHILS ABSOLUTE COUNT (BEAKER) (test 0.41 K/ L 0.04-0.36 stek=865) BASOPHILS ABSOLUTE COUNT (BEAKER) (test 0.05 K/ L 0.01-0.08 tjuv=758) IMMATURE GRANULOCYTES-RELATIVE PERCENT (BEAKER) 1 % 0-1 (test lwge=1423) BASIC METABOLIC [id number] 00:23:00 Test Item Value Reference Range Comments SODIUM (BEAKER) (test 134 meq/L 136-145 dhdf=511) POTASSIUM (BEAKER) (test 3.8 meq/L 3.5-5.1 gkqz=136) CHLORIDE (BEAKER) (test 100 meq/L 98-107 ummf=924) CO2 (BEAKER) (test 22 meq/L 22-29 uxcb=405) BLOOD UREA NITROGEN 62 mg/dL 7-21 (BEAKER) (test lixn=038) CREATININE (BEAKER) (test 7.39 mg/dL 0.57-1.25 vvfr=405) GLUCOSE RANDOM (BEAKER) 155 mg/dL 70-105 (test zowi=126) CALCIUM (BEAKER) (test 8.6 mg/dL 8.4-10.2 aytx=858) EGFR (BEAKER) (test 7 mL/min/1.73 sq m ESTIMATED GFR IS NOT dydr=1523) ACCURATE CREATININE CLEARANCE IN PREDICTING GLOMERULAR FILTRATION RATE. ESTIMATED GFR IS NOT APPLICABLE FOR DIALYSIS PATIENTS. [id number] 00:15:00 Test Item Value Reference Range Comments PHOSPHORUS (BEAKER) (test gegq=964) 3.5 mg/dL 2.3-4.7 [id number] 00:15:00 Test Item Value Reference Range Comments MAGNESIUM (BEAKER) (test ryii=112) 2.3 mg/dL 1.6-2.6 [id number] 00:03:00 Test Item Value Reference Range Comments PARTIAL THROMBOPLASTIN TIME (BEAKER) (test 105.0 seconds 22.5-36.0 ynmt=880) POCT-GLUCOSE [id number] 22:14:00 Test Item Value Reference Range Comments POC-GLUCOSE METER (BEAKER) 200 mg/dL 70-110 TESTED AT [facility] [address] [facility] (test afca=1297) [place] [address] [id number] 17:22:00 Test Item Value Reference Range Comments PROTIME (BEAKER) (test qhjc=972) 13.7 seconds 11.7-14.7 INR (BEAKER) (test fzcd=311) 1.0 <=5.9 PARTIAL THROMBOPLASTIN TIME (BEAKER) (test 64.3 seconds 22.5-36.0 upes=554) RECOMMENDED COUMADIN/WARFARIN INR THERAPY RANGESSTANDARD DOSE: 2.0 - 3.0 Includes: PROPHYLAXIS forvenous thrombosis, systemic embolization; TREATMENT for venous thrombosis and/or pulmonary embolus.HIGH RISK: Target INR is 2.5-3.5 for patients with mechanical heart valves.Prior to initiating heparinPrior to initiating [id number] 17:22:00 Test Item Value Reference Range Comments PARTIAL THROMBOPLASTIN TIME (BEAKER) (test 64.3 seconds 22.5-36.0 osws=310) POCT-GLUCOSE [id number] 17:19:00 Test Item Value Reference Range Comments POC-GLUCOSE METER (BEAKER) 169 mg/dL 70-110 TESTED AT [address] (test ffoi=7903) [place] [address] POCT-GLUCOSE [id number] 12:30:00 Test Item Value Reference Range Comments POC-GLUCOSE METER (BEAKER) 235 mg/dL 70-110 TESTED AT [address] (test blwc=3223) [place] [address] [id number] 10:05:00 Test Item Value Reference Range Comments PARTIAL THROMBOPLASTIN TIME (BEAKER) (test 38.6 seconds 22.5-36.0 amhh=005) Prior to initiating heparinPOCT-GLUCOSE [id number] 07:40:00 Test Item Value Reference Range Comments POC-GLUCOSE METER (BEAKER) 221 mg/dL 70-110 TESTED AT [address] (test obuw=0919) [place] [address] [id number] 05:58:00 Test Item Value Reference Range Comments MAGNESIUM (BEAKER) (test efqz=510) 2.1 mg/dL 1.6-2.6 [id number] 05:58:00 Test Item Value Reference Range Comments PHOSPHORUS (BEAKER) (test oinc=951) 3.5 mg/dL 2.3-4.7 TROPONIN [id number] 05:15:00 Test Item Value Reference Range Comments TROPONIN I (BEAKER) (test dtvn=826) 0.31 ng/mL 0.00-0.03 Troponin I (TnI) levels [...] disease, and persistent tachyarrhythmia.LACTIC ACID, VENOUS, WHOLE [id number] 05:13:00 Test Item Value Reference Range Comments LACTATE BLOOD VENOUS (2) (BEAKER) (test 0.8 mmol/L 0.5-2.2 zmfl=7281) BASIC METABOLIC [id number] 05:13:00 Test Item Value Reference Range Comments SODIUM (BEAKER) (test 136 meq/L 136-145 mndj=802) POTASSIUM (BEAKER) (test 3.4 meq/L 3.5-5.1 omjl=370) CHLORIDE (BEAKER) (test 99 meq/L 98-107 dowx=962) CO2 (BEAKER) (test 25 meq/L 22-29 qcez=788) BLOOD UREA NITROGEN 43 mg/dL 7-21 (BEAKER) (test nvqm=343) CREATININE (BEAKER) (test 6.21 mg/dL 0.57-1.25 ohiq=512) GLUCOSE RANDOM (BEAKER) 175 mg/dL 70-105 (test hylb=049) CALCIUM (BEAKER) (test 8.6 mg/dL 8.4-10.2 ahvq=760) EGFR (BEAKER) (test 8 mL/min/1.73 sq m ESTIMATED GFR IS NOT aftv=8578) ACCURATE CREATININE CLEARANCE IN PREDICTING GLOMERULAR FILTRATION RATE. ESTIMATED GFR IS NOT APPLICABLE FOR DIALYSIS PATIENTS. B-TYPE NATRIURETIC FACTOR (BNP)2018-11-24 05:12:00 Test Item Value Reference Range Comments B-TYPE NATRIURETIC PEPTIDE (BEAKER) (test 190 pg/mL 0-100 quxq=700) CBC W/PLT COUNT & AUTO [id number] 05:12:00 Test Item Value Reference Range Comments WHITE BLOOD CELL COUNT (BEAKER) (test ufbl=456) 12.0 K/ L 3.5-10.5 RED BLOOD CELL COUNT (BEAKER) (test bcux=159) 2.97 M/ L 3.93-5.22 HEMOGLOBIN (BEAKER) (test nbsw=617) 8.1 GM/DL 11.2-15.7 HEMATOCRIT (BEAKER) (test mrcc=249) 27.6 % 34.1-44.9 MEAN CORPUSCULAR VOLUME (BEAKER) (test hxsb=892) 92.9 fL 79.4-94.8 MEAN CORPUSCULAR HEMOGLOBIN (BEAKER) (test 27.3 pg 25.6-32.2 usya=122) MEAN CORPUSCULAR HEMOGLOBIN CONC (BEAKER) (test 29.3 GM/DL 32.2-35.5 onnd=282) RED CELL DISTRIBUTION WIDTH (BEAKER) (test 15.0 % 11.7-14.4 vtla=411) PLATELET COUNT (BEAKER) (test jzwf=802) 115 K/CU MM 150-450 MEAN PLATELET VOLUME (BEAKER) (test ylow=835) 10.9 fL 9.4-12.3 NUCLEATED RED BLOOD CELLS (BEAKER) (test 0 /100 WBC 0-0 vldm=314) NEUTROPHILS RELATIVE PERCENT (BEAKER) (test 81 % dlog=079) LYMPHOCYTES RELATIVE PERCENT (BEAKER) (test 6 % brvr=013) MONOCYTES RELATIVE PERCENT (BEAKER) (test 10 % pgtr=947) EOSINOPHILS RELATIVE PERCENT (BEAKER) (test 3 % ntse=896) BASOPHILS RELATIVE PERCENT (BEAKER) (test 1 % qeti=207) NEUTROPHILS ABSOLUTE COUNT (BEAKER) (test 9.67 K/ L 1.56-6.13 pira=538) LYMPHOCYTES ABSOLUTE COUNT (BEAKER) (test 0.66 K/ L 1.18-3.74 gzgs=674) MONOCYTES ABSOLUTE COUNT (BEAKER) (test 1.18 K/ L 0.24-0.36 dmdq=165) EOSINOPHILS ABSOLUTE COUNT (BEAKER) (test 0.32 K/ L 0.04-0.36 bzzm=355) BASOPHILS ABSOLUTE COUNT (BEAKER) (test 0.06 K/ L 0.01-0.08 kokh=922) IMMATURE GRANULOCYTES-RELATIVE PERCENT (BEAKER) 1 % 0-1 (test ievn=6352) POCT-GLUCOSE [id number] 22:03:00 Test Item Value Reference Range Comments POC-GLUCOSE METER (BEAKER) 187 mg/dL 70-110 TESTED AT [facility] [address] [facility] (test qkrg=4608) [place] [address] POCT-GLUCOSE [id number] 18:08:00 Test Item Value Reference Range Comments POC-GLUCOSE METER (BEAKER) 251 mg/dL 70-110 TESTED AT [place] [id number] [facility] (test xbar=6451) [place] [address] ANG, CENTRAL VENOUS CATH PLCMT (JUG/FEM) > 5 Y.O. WITH [id number] 16:53 :00Reason for exam:->discussed, guidewire exchange of [...] Connor Verified Date/Time: 11/23/2018 16:53:15 Reading Location: [address] Body Reading Room BLOOD CULTURE IDENTIFICATION [id number] 13:44:00 Test Item Value Reference Range Comments LISTERIA MONOCYTOGENES (test Not detected Not detected kduq=[id number]) STAPHYLOCOCCUS (test Detected Not detected rqmc=8281475) STAPHYLOCOCCUS AUREUS (test Detected Not detected First line therapy: cicd=0862148) VancomycinID consultation strongly encouraged. Staphylococcus aureus DETECTED MecA DETECTEDReference Range: Not Detected STREPTOCOCCUS (test Not detected Not detected xmce=3253099) STREPTOCOCCUS AGALACTIAE Not detected Not detected (GROUP B) (test wiyj=3247001) STREPTOCOCCUS PNEUMONIAE Not detected Not detected (test dgng=9902246) STREPTOCOCCUS PYOGENES (GROUP Not detected Not detected A) (test gxrr=4862257) ACINETOBACTER BAUMANNII (test Not detected Not detected nezf=2275092) HAEMOPHILUS INFLUENZAE (test Not detected Not detected chcs=7327999) NEISSERIA MENINGITIDIS (test Not detected Not detected cxha=7366643) ENTEROBACTERIACEAE (test Not detected Not detected lhpt=2420429) ENTEROBACTER CLOACOE COMPLEX Not detected Not detected (test clbl=6300984) KLEBSIELLA OXYTOCA (test Not detected Not detected rnjy=2166961) KLEBSIELLA PNEUMONIAE (test Not detected Not detected fjhl=1488) PROTEUS (test smfy=8623010) Not detected Not detected SERRATIA MARCESCENS (test Not detected Not detected obfj=4746112) SHRUTHI ALBICANS (test Not detected Not detected xeya=6707190) SHRUTHI GLABRATA (test Not detected Not detected natk=0099037) SHRUTHI KRUSEI (test Not detected Not detected vqhu=9929835) SHRUTHI PARAPSILOSIS (test Not detected Not detected vlny=8814052) SHRUTHI TROPICALIS (test Not detected Not detected idtp=8389761) ESCHERICHIA COLI (test Not detected Not detected iiua=6393464) METHICILLIN-RESISTANCE GENE Detected Not detected (test aikv=4225600) VANCOMYCIN-RESISTANCE GENE Not detected (test pfrq=8443790) CARBAPENEM-RESISTANCE GENE Not detected (test fiap=0712311) ENTEROCOCCUS-BEAKER (test Not detected Not detected ckyh=5827548) PSEUDOMONAS AERUGINOSA-BEAKER Not detected Not detected (test uphm=0618480) Other bacteria and resistance markers not targeted by this PCR panel cannot be excluded; therefore clinical correlation and follow up of serology, culture results, and other molecular studies is required. The results are not intended to be used as the sole means for clinical diagnosis or patient management decisions. This sample was tested at the [facility] Molecular Diagnostics Laboratory using the [employer] Blood Culture ID Panel. It is FDA cleared and has been verified and approved by the [facility] for clinical use. This laboratory is CLIA-certified and College ofAmerican Pathologists (CAP)-accredited to perform high complexity testing.VANCOMYCIN LEVEL, [id number] 13:20:00 Test Item Value Reference Range Comments VANCOMYCIN RANDOM (AKER) (test bkvj=456) 22.9 ug/mL Reference Range: No NormalsPOCT-GLUCOSE [id number] 13:00:00 Test Item Value Reference Range Comments POC-GLUCOSE METER (AKER) 249 mg/dL 70-110 TESTED AT [facility] [address] (test yybq=8140) [place] [address] TROPONIN [id number] 10:54:00 Test Item Value Reference Range Comments TROPONIN I (BEAKER) (test gjkl=657) 0.30 ng/mL 0.00-0.03 Troponin I (TnI) levels [...] failure, acidosis, acute neurological disease, and persistent tachyarrhythmia.[id number] 10:45:00 Test Item Value Reference Range Comments LIPASE (BEAKER) (test yxiq=496) 12 U/L 8-78 RAD, ABDOMEN/KUB, 1 VIEW [id number] 08:42:00Reason for exam:->abd painFINAL REPORT RAD, ABDOMEN/KUB, [...] MDReport Verified Date/Time: 11/23/2018 08:42:11 Reading Location: [facility] Reading Room COMPREHENSIVE METABOLIC [id number] 07:44:00 Test Item Value Reference Range Comments TOTAL PROTEIN (BEAKER) 6.0 gm/dL 6.0-8.3 (test zljl=237) ALBUMIN (BEAKER) (test 3.0 g/dL 3.5-5.0 ivpq=9924) ALKALINE PHOSPHATASE 248 U/L 40-150 (BEAKER) (test irhk=973) BILIRUBIN TOTAL (BEAKER) 0.8 mg/dL 0.2-1.2 (test idgv=781) SODIUM (BEAKER) (test 137 meq/L 136-145 wsev=696) POTASSIUM (BEAKER) (test 3.6 meq/L 3.5-5.1 xcrw=016) CHLORIDE (BEAKER) (test 101 meq/L 98-107 fbab=227) CO2 (BEAKER) (test 28 meq/L 22-29 eeeb=733) BLOOD UREA NITROGEN 26 mg/dL 7-21 (BEAKER) (test pozs=281) CREATININE (BEAKER) (test 4.09 mg/dL 0.57-1.25 ondi=237) GLUCOSE RANDOM (BEAKER) 201 mg/dL 70-105 (test ahyh=171) CALCIUM (BEAKER) (test 9.3 mg/dL 8.4-10.2 mrbk=472) AST (SGOT) (BEAKER) (test 39 U/L 5-34 dkdb=318) ALT (SGPT) (BEAKER) (test 18 U/L 6-55 zykn=872) EGFR (BEAKER) (test 13 mL/min/1.73 sq m ESTIMATED GFR IS NOT joah=3594) ACCURATE CREATININE CLEARANCE IN PREDICTING GLOMERULAR FILTRATION RATE. ESTIMATED GFR IS NOT APPLICABLE FOR DIALYSIS PATIENTS. BASIC METABOLIC [id number] 07:44:00 Test Item Value Reference Range Comments SODIUM (BEAKER) (test 137 meq/L 136-145 stqu=349) POTASSIUM (BEAKER) (test 3.6 meq/L 3.5-5.1 vjzc=202) CHLORIDE (BEAKER) (test 101 meq/L 98-107 fonr=653) CO2 (BEAKER) (test 28 meq/L 22-29 aigf=776) BLOOD UREA NITROGEN 26 mg/dL 7-21 (BEAKER) (test nsym=035) CREATININE (BEAKER) (test 4.09 mg/dL 0.57-1.25 mwih=722) GLUCOSE RANDOM (BEAKER) 201 mg/dL 70-105 (test lhqf=448) CALCIUM (BEAKER) (test 9.3 mg/dL 8.4-10.2 cqpm=940) EGFR (BEAKER) (test 13 mL/min/1.73 sq m ESTIMATED GFR IS NOT ymuh=9455) ACCURATE CREATININE CLEARANCE IN PREDICTING GLOMERULAR FILTRATION RATE. ESTIMATED GFR IS NOT APPLICABLE FOR DIALYSIS PATIENTS. [id number] 07:39:00 Test Item Value Reference Range Comments PHOSPHORUS (BEAKER) (test ttrj=327) 3.0 mg/dL 2.3-4.7 [id number] 07:39:00 Test Item Value Reference Range Comments MAGNESIUM (BEAKER) (test qluy=639) 1.9 mg/dL 1.6-2.6 LACTIC ACID, VENOUS, WHOLE [id number] 07:34:00 Test Item Value Reference Range Comments LACTATE BLOOD VENOUS (2) (BEAKER) (test 0.8 mmol/L 0.5-2.2 qcwz=8611) CALCIUM, [id number] 07:28:00 Test Item Value Reference Range Comments CALCIUM IONIZED (BEAKER) (test jyns=619) 1.13 mmol/L 1.12-1.27 PH, BLOOD (BEAKER) (test qytq=5862) 7.36 CBC W/PLT COUNT & AUTO [id number] 07:28:00 Test Item Value Reference Range Comments WHITE BLOOD CELL COUNT (BEAKER) (test hwxj=180) 19.0 K/ L 3.5-10.5 RED BLOOD CELL COUNT (BEAKER) (test btwz=343) 2.89 M/ L 3.93-5.22 HEMOGLOBIN (BEAKER) (test hbpv=289) 8.3 GM/DL 11.2-15.7 HEMATOCRIT (BEAKER) (test dzek=154) 26.8 % 34.1-44.9 MEAN CORPUSCULAR VOLUME (BEAKER) (test qpdw=173) 92.7 fL 79.4-94.8 MEAN CORPUSCULAR HEMOGLOBIN (BEAKER) (test 28.7 pg 25.6-32.2 ymso=754) MEAN CORPUSCULAR HEMOGLOBIN CONC (BEAKER) (test 31.0 GM/DL 32.2-35.5 nygj=902) RED CELL DISTRIBUTION WIDTH (BEAKER) (test 15.1 % 11.7-14.4 fhhg=040) PLATELET COUNT (BEAKER) (test assq=876) 101 K/CU MM 150-450 MEAN PLATELET VOLUME (BEAKER) (test gdyi=768) 10.7 fL 9.4-12.3 NUCLEATED RED BLOOD CELLS (BEAKER) (test 0 /100 WBC 0-0 qazk=658) NEUTROPHILS RELATIVE PERCENT (BEAKER) (test 88 % jsxt=245) LYMPHOCYTES RELATIVE PERCENT (BEAKER) (test 3 % gclb=061) MONOCYTES RELATIVE PERCENT (BEAKER) (test 6 % rqqg=431) EOSINOPHILS RELATIVE PERCENT (BEAKER) (test 2 % mrfl=688) BASOPHILS RELATIVE PERCENT (BEAKER) (test 0 % sbdf=329) NEUTROPHILS ABSOLUTE COUNT (BEAKER) (test 16.67 K/ L 1.56-6.13 atnn=731) LYMPHOCYTES ABSOLUTE COUNT (BEAKER) (test 0.59 K/ L 1.18-3.74 robd=800) MONOCYTES ABSOLUTE COUNT (BEAKER) (test 1.07 K/ L 0.24-0.36 wpsg=740) EOSINOPHILS ABSOLUTE COUNT (BEAKER) (test 0.36 K/ L 0.04-0.36 nsqh=670) BASOPHILS ABSOLUTE COUNT (BEAKER) (test 0.07 K/ L 0.01-0.08 ylqn=263) IMMATURE GRANULOCYTES-RELATIVE PERCENT (BEAKER) 1 % 0-1 (test ivgm=3393) BASIC METABOLIC [id number] 02:11:00 Test Item Value Reference Range Comments SODIUM (BEAKER) (test 136 meq/L 136-145 prrh=831) POTASSIUM (BEAKER) (test 3.3 meq/L 3.5-5.1 buli=646) CHLORIDE (BEAKER) (test 101 meq/L 98-107 vsyb=927) CO2 (BEAKER) (test 25 meq/L 22-29 gtzl=576) BLOOD UREA NITROGEN 34 mg/dL 7-21 (BEAKER) (test otcq=991) CREATININE (BEAKER) (test 5.32 mg/dL 0.57-1.25 hewv=068) GLUCOSE RANDOM (BEAKER) 164 mg/dL 70-105 (test mefe=108) CALCIUM (BEAKER) (test 9.4 mg/dL 8.4-10.2 qilh=711) EGFR (BEAKER) (test 10 mL/min/1.73 sq m ESTIMATED GFR IS NOT ipxa=9230) ACCURATE CREATININE CLEARANCE IN PREDICTING GLOMERULAR FILTRATION RATE. ESTIMATED GFR IS NOT APPLICABLE FOR DIALYSIS PATIENTS. [id number] 02:07:00 Test Item Value Reference Range Comments PHOSPHORUS (BEAKER) (test igxo=469) 2.7 mg/dL 2.3-4.7 [id number] 02:07:00 Test Item Value Reference Range Comments MAGNESIUM (BEAKER) (test eltf=574) 1.8 mg/dL 1.6-2.6 CALCIUM, [id number] 01:51:00 Test Item Value Reference Range Comments CALCIUM IONIZED (BEAKER) (test raij=659) 1.18 mmol/L 1.12-1.27 PH, BLOOD (BEAKER) (test hyia=5576) 7.35 POCT-GLUCOSE [id number] 00:30:00 Test Item Value Reference Range Comments POC-GLUCOSE METER (BEAKER) 248 mg/dL 70-110 TESTED AT [facility] [address] [facility] (test gqhg=8081) [place] [address] TROPONIN [id number] 23:27:00 Test Item Value Reference Range Comments TROPONIN I (BEAKER) (test uhkw=335) 0.60 ng/mL 0.00-0.03 Troponin I (TnI) levels [...] disease, and persistent tachyarrhythmia.LACTIC ACID, VENOUS, WHOLE [id number] 23:13:00 Test Item Value Reference Range Comments LACTATE BLOOD VENOUS (2) (FARRAH) (test 1.3 mmol/L 0.5-2.2 rfbr=0005) U/S, ABDOMINAL, [id number] 20:30:00Reason for exam:->Septic Shock, ESRD, Dysuria, Abdominal [...] Verified Date/Time: 11/22/2018 20:30: 54 Reading Location: [facility] Neuro Reading Room LACTIC ACID, VENOUS, WHOLE [id number] 18:54:00 Test Item Value Reference Range Comments LACTATE BLOOD VENOUS (2) (BEAKER) (test 1.5 mmol/L 0.5-2.2 meny=4698) [id number] 17:26:00 Test Item Value Reference Range Comments PROCALCITONIN (BEAKER) (test odyr=8825) > ng/mL <0.05 SEPSIS RISK (ng/mL)Low: 0.05-0.50Intermediate: 0.51-2.00High: & gt;=2.01TSH/FREE T4 IF [id number] 17:10:00 Test Item Value Reference Range Comments THYROID STIMULATING HORMONE (BEAKER) (test 2.43 uIU/mL 0.35-4.94 jewi=486) RAD, CHEST, 1 VIEW, NON [id number] 17:04:00Reason for exam:->Respiratory Insufficiency, Septic ShockShould this [...] Verified Date/Time: 11/22/2018 17:04 :54 Reading Location: [address] Reading Room (CELLAVISION MANUAL DIFF) 2018-11-22 16:57:00 Test Item Value Reference Range Comments NEUTROPHILS - REL (CELLAVISION)(BEAKER) (test 85 % sque=2677) LYMPHOCYTES - REL (CELLAVISION)(BEAKER) (test 5 % ubtr=8087) MONOCYTES - REL (CELLAVISION)(BEAKER) (test 4 % gusz=6131) BANDS - REL (CELLAVISION)(BEAKER) (test 6 % 0-10 bxqg=1255) NEUTROPHILS - ABS (CELLAVISION)(BEAKER) (test 22.87 K/ul 1.56-6.13 pbwe=5129) LYMPHOCYTES - ABS (CELLAVISION)(BEAKER) (test 1.35 K/ul 1.18-3.74 ddmj=5528) MONOCYTES - ABS (CELLAVISION)(BEAKER) (test 1.08 K/uL 0.24-0.36 aoap=7801) BANDS - ABS (CELLAVISION)(BEAKER) (test 1.61 K/uL 0.00-0.80 acnw=7977) TOTAL COUNTED (BEAKER) (test vdld=9858) 100 WBC MORPHOLOGY (BEAKER) (test elrz=371) Normal PLT MORPHOLOGY (BEAKER) (test soja=634) Normal POLYCHROMATOPHILLIC RBCS(BEAKER) (test zshe=967) 3+ many ANISOCYTOSIS (BEAKER) (test jwtq=826) 1+ few MICROCYTES (BEAKER) (test tzfc=022) 1+ few POIKILOCYTES (BEAKER) (test xjkt=001) 2+ moderate TEAR DROP CELLS (BEAKER) (test jrfl=949) 1+ few JOVANNI CELLS (BEAKER) (test nfzw=798) 1+ few ARTIFACT (CELLAVISION)(BEAKER) (test abtv=0840) Present HELMET CELLS (CELLAVISION)(BEAKER) (test 1+ few cexl=9552) PLATELET CONCENTRATION (CELLAVISION)(BEAKER) Adequate (test sbmm=7153) Received comment: User comments: Slide comments:TROPONIN [id number] 16:52:00 Test Item Value Reference Range Comments TROPONIN I (BEAKER) (test vkkt=837) 0.85 ng/mL 0.00-0.03 Troponin I (TnI) levels [...] acidosis, acute neurological disease, and persistent tachyarrhythmia.PROTHROMBIN TIME/[id number] 16:52:00 Test Item Value Reference Range Comments PROTIME (BEAKER) (test uahg=878) 16.1 seconds 11.7-14.7 INR (BEAKER) (test wngv=284) 1.3 <=5.9 RECOMMENDED COUMADIN/WARFARIN INR THERAPY RANGESSTANDARD DOSE: 2.0 - 3.0 Includes: PROPHYLAXIS forvenous thrombosis, systemic embolization; TREATMENT for venous thrombosis and/or pulmonary embolus.HIGH RISK: Target INR is 2.5-3.5 for patients with mechanical heart valves.B-TYPE NATRIURETIC FACTOR (BNP)2018-10 16:48:00 Test Item Value Reference Range Comments B-TYPE NATRIURETIC PEPTIDE (BEAKER) (test 353 pg/mL 0-100 hiyp=332) BASIC METABOLIC [id number] 16:48:00 Test Item Value Reference Range Comments SODIUM (BEAKER) (test 136 meq/L 136-145 vbqk=205) POTASSIUM (BEAKER) (test 2.9 meq/L 3.5-5.1 jfsq=316) CHLORIDE (BEAKER) (test 98 meq/L 98-107 uaen=778) CO2 (BEAKER) (test 24 meq/L 22-29 yzgt=313) BLOOD UREA NITROGEN 47 mg/dL 7-21 (BEAKER) (test qdrb=684) CREATININE (BEAKER) (test 8.07 mg/dL 0.57-1.25 rohf=669) GLUCOSE RANDOM (BEAKER) 207 mg/dL 70-105 (test supc=980) CALCIUM (BEAKER) (test 9.5 mg/dL 8.4-10.2 hzul=642) EGFR (BEAKER) (test 6 mL/min/1.73 sq m ESTIMATED GFR IS NOT vnhk=3430) ACCURATE CREATININE CLEARANCE IN PREDICTING GLOMERULAR FILTRATION RATE. ESTIMATED GFR IS NOT APPLICABLE FOR DIALYSIS PATIENTS. BLOOD GAS, [id number] 16:44:00 Test Item Value Reference Range Comments PH ARTERIAL (BEAKER) (test zqzg=216) 7.37 7.35-7.45 PCO2 ARTERIAL (BEAKER) (test yhjh=643) 42 mmHg 35-45 PO2 ARTERIAL (BEAKER) (test rizs=188) 123 mmHg 80-90 O2 SATURATION ARTERIAL (BEAKER) (test lsrs=970) 98.3 % 96.0-97.0 HCO3 ARTERIAL (BEAKER) (test akbp=902) 24 mmol/L 21-29 BASE EXCESS ARTERIAL (BEAKER) (test kgql=047) -1.7 mmol/L -2.0-3.0 PATIENT TEMPERATURE (BEAKER) (test fvil=3167) 37.0 C FIO2 (BEAKER) (test ypbc=4396) 28.0 % [id number] 16:44:00 Test Item Value Reference Range Comments PHOSPHORUS (BEAKER) (test jyis=385) 4.1 mg/dL 2.3-4.7 [id number] 16:44:00 Test Item Value Reference Range Comments MAGNESIUM (BEAKER) (test ubim=561) 1.9 mg/dL 1.6-2.6 HEPATIC FUNCTION [id number] 16:44:00 Test Item Value Reference Range Comments TOTAL PROTEIN (BEAKER) (test omye=324) 6.9 gm/dL 6.0-8.3 ALBUMIN (BEAKER) (test qqse=7441) 3.5 g/dL 3.5-5.0 BILIRUBIN TOTAL (BEAKER) (test chuq=754) 0.9 mg/dL 0.2-1.2 BILIRUBIN DIRECT (BEAKER) (test wuia=070) 0.6 mg/dL 0.1-0.5 ALKALINE PHOSPHATASE (BEAKER) (test dhsb=801) 245 U/L 40-150 AST (SGOT) (BEAKER) (test qffi=343) 51 U/L 5-34 ALT (SGPT) (BEAKER) (test dmrf=342) 18 U/L 6-55 VANCOMYCIN LEVEL, [id number] 16:41:00 Test Item Value Reference Range Comments VANCOMYCIN RANDOM (BEAKER) (test jzni=804) 18.3 ug/mL Reference Range: No NormalsOXYGEN SATURATION, [id number] 16:40:00 Test Item Value Reference Range Comments O2 SATURATION (MEASURED) (BEAKER) (test vjhg=0954) 62.7 % If patient has internal jugular ( IJ) or subclavian central line or PICC line. Draw from distal port. Label as central venous oxygen.LACTIC ACID, VENOUS, WHOLE [id number] 16:38:00 Test Item Value Reference Range Comments LACTATE BLOOD VENOUS (2) (BEAKER) (test 1.2 mmol/L 0.5-2.2 wilc=6074) CBC W/PLT COUNT & AUTO [id number] 16:35:00 Test Item Value Reference Range Comments WHITE BLOOD CELL COUNT (BEAKER) (test jyeq=297) 26.9 K/ L 3.5-10.5 RED BLOOD CELL COUNT (BEAKER) (test wzjq=965) 3.17 M/ L 3.93-5.22 HEMOGLOBIN (BEAKER) (test glvu=285) 8.8 GM/DL 11.2-15.7 HEMATOCRIT (BEAKER) (test oxwe=802) 29.6 % 34.1-44.9 MEAN CORPUSCULAR VOLUME (BEAKER) (test olld=312) 93.4 fL 79.4-94.8 MEAN CORPUSCULAR HEMOGLOBIN (BEAKER) (test 27.8 pg 25.6-32.2 xily=405) MEAN CORPUSCULAR HEMOGLOBIN CONC (BEAKER) (test 29.7 GM/DL 32.2-35.5 jaqt=196) RED CELL DISTRIBUTION WIDTH (BEAKER) (test 15.3 % 11.7-14.4 ckce=541) PLATELET COUNT (BEAKER) (test gfpd=287) 149 K/CU MM 150-450 MEAN PLATELET VOLUME (BEAKER) (test rrpj=241) 10.6 fL 9.4-12.3 NUCLEATED RED BLOOD CELLS (BEAKER) (test 0 /100 WBC 0-0 tsce=595) NEUTROPHILS RELATIVE PERCENT (BEAKER) (test 88 % chtj=598) LYMPHOCYTES RELATIVE PERCENT (BEAKER) (test 4 % ulsm=925) MONOCYTES RELATIVE PERCENT (BEAKER) (test 6 % hpwu=739) EOSINOPHILS RELATIVE PERCENT (BEAKER) (test 1 % yywi=647) BASOPHILS RELATIVE PERCENT (BEAKER) (test 0 % tduf=052) NEUTROPHILS ABSOLUTE COUNT (BEAKER) (test 23.68 K/ L 1.56-6.13 jspz=556) LYMPHOCYTES ABSOLUTE COUNT (BEAKER) (test 0.94 K/ L 1.18-3.74 ackh=843) MONOCYTES ABSOLUTE COUNT (BEAKER) (test 1.53 K/ L 0.24-0.36 nosv=273) EOSINOPHILS ABSOLUTE COUNT (BEAKER) (test 0.32 K/ L 0.04-0.36 xekb=220) BASOPHILS ABSOLUTE COUNT (BEAKER) (test 0.08 K/ L 0.01-0.08 thog=081) IMMATURE GRANULOCYTES-RELATIVE PERCENT (BEAKER) 1 % 0-1 (test jrmm=5284) HEP B SURFACE [id number] 15:58:00 Test Item Value Reference Range Comments [...] Negative (qualifier Negative value) CBC WITH AUTO [id number] 07:16:00 Test Item Value Reference Range Comments [...] 1.0-3.0 IG% (test code=IG%) 1.4 % 0.0-0.4 [id number] 07:13:00 Test Item Value Reference Range Comments [...] mL/min/1.73m\\S\\2 EGFR if Non- 11 Estimated Glomerular Bulgarian (test mL/min/1.73m\\S\\2 Filtration Rate (eGFR) code=EGFRNA) Reference [...] management of chronic kidney failure. TYPE & [id number] 15:35:00 Test Item Value Reference Range Comments ABO Blood Type (test code=ABO) A Rh (test code=RH) Negative Antibody Screen (test code=ABSCR) Negative Negative ARMBAND# (test code=ARMBAND) FF 84 337 [id number] 13:49:00 Test Item Value Reference Range Comments [...] mL/min/1.73m\\S\\2 EGFR if Non- 10 Estimated Glomerular Bulgarian (test mL/min/1.73m\\S\\2 Filtration Rate (eGFR) code=EGFRNA) Reference [...] management of chronic kidney failure. er4PT AND [id number] 14:13:00 Test Item Value Reference Range Comments Protime (test code=PT) 9.8 seconds 9.0-11.9 INR (test code=INR) 1.0 0.9-1.1 INR results are intended ONLY to monitor Oral Anticoagulant therapy in stablized patients. The INR Therapeutic Range is 2.0 - 3.0 Patients with a mechanical heart, the INR Range is 2.5 - 3.5 [id number] 14:13:00 Test Item Value Reference Range Comments aPTT (test code=PTT) 28.2 seconds 23.0-33.0 CBC WITH AUTO [id number] 13:39:00 Test Item Value Reference Range Comments [...] IG% (test code=IG%) 1.7 % 0.0-0.4 AUTO [id number] 13:25:00 Test Item Value Reference Range Comments [...] mL/min/1.73m\\S\\2 EGFR if Non- 10 Estimated Glomerular Bulgarian (test mL/min/1.73m\\S\\2 Filtration Rate (eGFR) code=EGFRNA) Reference [...] management of chronic kidney failure. TYPE & [id number] 12:40:00 Test Item Value Reference Range Comments ABO Blood Type (test code=ABO) A Rh (test code=RH) Negative Antibody Screen (test code=ABSCR) Negative Negative ARMBAND# (test code=ARMBAND) FF 12 500 [id number] 06:38:00 Test Item Value Reference Range Comments [...] mL/min/1.73m\\S\\2 EGFR if Non- 12 Estimated Glomerular Bulgarian (test mL/min/1.73m\\S\\2 Filtration Rate (eGFR) code=EGFRNA) Reference [...] of chronic kidney failure. CBC WITH AUTO [id number] 06:35:00 Test Item Value Reference Range Comments [...] (test code=IG%) 0.4 % 0.0-0.4 CBC AUTO [id number] 06:33:00 Test Item Value Reference Range Comments aPTT (test code=PTT) 29.4 seconds 23.0-33.0 PT AND [id number] 06:33:00 Test Item Value Reference Range Comments Protime (test code=PT) 10.1 seconds 9.0-11.9 INR (test code=INR) 1.0 0.9-1.1 INR results are intended ONLY to monitor Oral Anticoagulant therapy in stablized patients. The INR Therapeutic Range is 2.0 - 3.0 Patients with a mechanical heart, the INR Range is 2.5 - 3.5 [id number] 10:05:00 Test Item Value Reference Range Comments [...] mL/min/1.73m\\S\\2 EGFR if Non- 15 Estimated Glomerular Bulgarian (test mL/min/1.73m\\S\\2 Filtration Rate (eGFR) code=EGFRNA) Reference [...] PLATELET CLUMPING. THIS IS A HEMOGRAM ONLYRBC, [id number] 03:00:00 Test Item Value Reference Range Comments RBC Unit (test code=RBCUNIT) Released for Transfusion RBC, [id number] 03:00:00 Test Item Value Reference Range Comments RBC Unit (test code=RBCUNIT) Released for Transfusion CROSSMATCH x 12:53:00Completed: Compatible Ready to TransfuseTYPE & amp; [id number] 12:52:00 Test Item Value Reference Range Comments ABO Blood Type (test code=ABO) A Rh (test code=RH) Negative Antibody Screen (test code=ABSCR) Negative Negative ARMBAND# (test code=ARMBAND) FF 12 500 HEP B SURFACE [id number] 07:50:00 Test Item Value Reference Range Comments [...] Negative (qualifier Negative value) CBC WITH AUTO [id number] 07:17:00 Test Item Value Reference Range Comments [...] called to Gary DIAZ RN. K3 by [id number] on 08/10/2017 07:16 AM. Results were readback by Claudine DE LA CRUZ RN..[id number] 07:17:00 Test Item Value Reference Range Comments [...] mL/min/1.73m\\S\\2 EGFR if Non- 13 Estimated Glomerular Bulgarian (test mL/min/1.73m\\S\\2 Filtration Rate (eGFR) code=EGFRNA) Reference Intervals Decision Points for 18 years and older and average body mass: >=60 Does not exclude kidney disease. 30 - 59 Suggests moderate chronic kidney disease and indicates the need for further investigation including assessment of proteinuria and cardiovascular factors. < 30 Usually indicates a need for referral for assessment and management of chronic kidney failure. [id number] 19:07:00 Test Item Value Reference Range Comments aPTT (test code=PTT) 29.9 seconds 23.0-33.0 PT AND [id number] 19:07:00 Test Item Value Reference Range Comments Protime (test code=PT) 10.1 seconds 9.0-11.9 INR (test code=INR) 1.0 0.9-1.1 INR results are intended ONLY to monitor Oral Anticoagulant therapy in stablized patients. The INR Therapeutic Range is 2.0 - 3.0 Patients with a mechanical heart, the INR Range is 2.5 - 3.5 [id number] 18:35:00 Test Item Value Reference Range Comments [...] mL/min/1.73m\\S\\2 EGFR if Non- 13 Estimated Glomerular Bulgarian (test mL/min/1.73m\\S\\2 Filtration Rate (eGFR) code=EGFRNA) Reference [...] of chronic kidney failure. CBC WITH AUTO [id number] 18:19:00 Test Item Value Reference Range Comments [...] IG% (test code=IG%) 0.4 % 0.0-0.4 AUTO [id number] 17:15:00 Test Item Value Reference Range Comments [...] (test code=BGCTHB) 8.3 gm/dl 11.5-17.4 O2Hb (test code=QKMW7UI) 94.9 % 95.0-99.0 COHb (test code=BGFCOHB) <2.8 [...] Notified (test code=BGTMNOTIFIED) 15:59 O2 Device (test code=CLS4JWJ9) Room Air Instrument ID (test code=BGINSTRID) [id number] Reported By (test code=BGREPORTEDBY) ROSALINO HUFF [id number] 09:50:00 Test Item Value Reference Range Comments [...] mL/min/1.73m\\S\\2 EGFR if Non- 14 Estimated Glomerular Bulgarian (test mL/min/1.73m\\S\\2 Filtration Rate (eGFR) code=EGFRNA) Reference [...] values were called to Tracy AGARWAL by [id number] on 08/07/2017 09:41 AM. Results were read back by Tracy AGARWAL.CULTURE, [id number] 07:53:00Specimen : AbscessCollected: 07/26/2017 20:47 Status: Final [...] 09:58: Culture Result (Prelim) (Prelim) Many DiptheroidsCULTURE, [id number] 06:50:00To start 15mins after 1st cultureSpecimen: BloodCollected: 07/24/2017 00:38 Status: Final Last Updated: 07/29/2017 06: 49 (1) To start 15mins after 1st culture Culture Result (Final) (Final ) No Growth After 5 DaysCULTURE, [id number] 06:50:00Specimen: BloodCollected: 07/24/2017 00:18 Status: Final Last Updated: 07/29/2017 06: 49 Culture Result (Final) (Final) No Growth After 5 DaysED RAPID [id number] 04:24:00 Test Item Value Reference Range Comments CKMB (BIOSITE) (test code=BIOCKMB) <1.0 ng/ml 0.0-2.5 TROPONIN-I (BIOSITE) (test code=BIOTROP) <0.050 ng/ml 0.000-0.050 MYOGLOBIN (BIOSITE) (test code=BIOMYO) 166.0 ng/ml 0.0-170.0 SERIAL INSTRUMENT NUMBER (test code=SERIAL) [id number] ED RAPID [id number] 01:05:00 Test Item Value Reference Range Comments CKMB (BIOSITE) (test code=BIOCKMB) <1.0 ng/ml 0.0-2.5 TROPONIN-I (BIOSITE) (test code=BIOTROP) <0.050 ng/ml 0.000-0.050 MYOGLOBIN (BIOSITE) (test code=BIOMYO) 203.0 ng/ml 0.0-170.0 SERIAL INSTRUMENT NUMBER (test code=SERIAL) [id number] 01:02:00 Test Item Value Reference Range Comments [...] mL/min/1.73m\\S\\2 EGFR if Non- 16 Estimated Glomerular Bulgarian (test mL/min/1.73m\\S\\2 Filtration Rate (eGFR) code=EGFRNA) Reference [...] chronic kidney failure. ER 8CBC WITH AUTO [id number] 00:58:00 Test Item Value Reference Range Comments [...] IG% (test code=IG%) 0.5 % 0.0-0.4 ER [id number] 13:31:00 Test Item Value Reference Range Comments [...] mL/min/1.73m\\S\\2 EGFR if Non- 11 Estimated Glomerular Bulgarian (test mL/min/1.73m\\S\\2 Filtration Rate (eGFR) code=EGFRNA) Reference [...] of chronic kidney failure. CBC WITH AUTO [id number] 13:08:00 Test Item Value Reference Range Comments [...] 0 /100WBC 0-2 code=NRBC_AUTO) HEP B SURFACE [id number] 15:00:00 Test Item Value Reference Range Comments [...] to HBV infection. HEPATITIS B CORE AB, [id number] 10:03:00 Test Item Value Reference Range Comments HEPATITIS B CORE AB TOTAL (test code=HEPBCORE) 2.97 Negative [id number] 09:16:00 Test Item Value Reference Range Comments [...] mL/min/1.73m\\S\\2 EGFR if Non- 13 Estimated Glomerular Bulgarian (test mL/min/1.73m\\S\\2 Filtration Rate (eGFR) code=EGFRNA) Reference [...] management of chronic kidney failure. ERYTHROCYTE SED [id number] 09:16:00 Test Item Value Reference Range Comments [...] 50-999 years old=0-25 mm/hr CBC WITH AUTO [id number] 08:46:00 Test Item Value Reference Range Comments [...] IG% (test code=IG%) 0.7 % 0.0-0.4 LIPASE, [id number] 18:05:00 Test Item Value Reference Range Comments Lipase (test code=LIPA) 42 U/L 8-223 AMYLASE, [id number] 18:05:00 Test Item Value Reference Range Comments Amylase (test code=AMYL) 53 U/L 12-103 C-REACTIVE [id number] 17:24:00 Test Item Value Reference Range Comments C REACTIVE PROTEIN (test code=CRP) 0.7 ng/ml 0.0-0.9 [id number] 09:07:00 Test Item Value Reference Range Comments [...] mL/min/1.73m\\S\\2 EGFR if Non- 10 Estimated Glomerular Bulgarian (test mL/min/1.73m\\S\\2 Filtration Rate (eGFR) code=EGFRNA) Reference [...] of chronic kidney failure. CBC WITH AUTO [id number] 08:35:00 Test Item Value Reference Range Comments [...] % 0.0-0.4 CBC AUTO diffCBC WITH AUTO [id number] 05:58:00 Test Item Value Reference Range Comments [...] 1.0-3.0 IG% (test code=IG%) 0.8 % 0.0-0.4 [id number] 05:41:00 Test Item Value Reference Range Comments [...] mL/min/1.73m\\S\\2 EGFR if Non- 12 Estimated Glomerular Bulgarian (test mL/min/1.73m\\S\\2 Filtration Rate (eGFR) code=EGFRNA) Reference Intervals Decision Points for 18 years and older and average body mass: >=60 Does not exclude kidney disease. 30 - 59 Suggests moderate chronic kidney disease and indicates the need for further investigation including assessment of proteinuria and cardiovascular factors. < 30 Usually indicates a need for referral for assessment and management of chronic kidney failure. [id number] 05:41:00 Test Item Value Reference Range Comments Magnesium (test code=MG) 2.0 mg/dl 1.6-2.3 HEP B SURFACE [id number] 08:16:00 Test Item Value Reference Range Comments [...] (test code=HBSAG) Negative (qualifier Negative value) GLYCOSALATED [id number] 01:37:00 Test Item Value Reference Range Comments [...] ARE NOT INTERCHANGEABLE BETWEEN METHODS. 12-06-2006 FREE [id number] 01:14:00 Test Item Value Reference Range Comments Free T4 (test code=FT4) 1.24 ng/dl 0.78-2.19 CORONARY [id number] 00:54:00 Test Item Value Reference Range Comments [...] Average vLDL (test code=VLDL) 29 mg/dl 20-50 [id number] 00:52:00 Test Item Value Reference Range Comments Magnesium (test code=MG) 2.0 mg/dl 1.6-2.3 [id number] 00:52:00 Test Item Value Reference Range Comments [...] mL/min/1.73m\\S\\2 EGFR if Non- 17 Estimated Glomerular Bulgarian (test mL/min/1.73m\\S\\2 Filtration Rate (eGFR) code=EGFRNA) Reference [...]
[2019-11-30] MEDS ORDERED: MORPHINE 4 MG/ML SYR ONE (02:18)
[2019-11-30] MEDS ORDERED: ONDANSETRON 4 MG/2 ML VIAL ONE (02:18)
[2019-11-30 02:45] LABS: Absolute Lymphocytes (CBC) 1.1 K/uL (0.7-4.9); Basophils % 1.1 % (0-1.3); Hematocrit 34.3 % (36.0-45.0); Lymphocytes % 14.2 % (15.3-44.8); MPV 10.3 fL (7.6-11.3); Protime INR 1.35; RBC Red Blood Cell Count 3.61 M/uL (3.86-4.86)
[2019-11-30 03:44] LABS: ALT/SGPT 13 U/L (12-78); AST/SGOT 11 U/L (15-37); Albumin 3.2 g/dL (3.4-5.0); Alkaline Phosphatase 159 U/L (45-117); BUN Blood Urea Nitrogen 63 mg/dL (7-18); Bicarbonate 18 mmol/L (21-32); Bilirubin Direct 0.2 mg/dL (0-0.2); Bilirubin Total 0.5 mg/dL (0.2-1.0); Glucose Level 119 mg/dL (74-106); Magnesium 2.4 mg/dL (1.8-2.4); NT PRO-BNP 38912 pg/mL (<125); Potassium 4.6 mmol/L (3.5-5.1); Protein, Total 6.7 g/dL (6.4-8.2); Sodium Level 138 mmol/L (136-145); Troponin (Emerg Dept Use Only) < 0.02 ng/mL (0.0-0.045)
[2019-11-30 03:51] LABS: Blood Gas Oxyhemoglobin 90.6 % (94-97); Blood O2 Saturation 92.2 % (92-98.5)
[2019-11-30 04:24] LABS: Blood Morphology Comment NOTED (NOT SEEN); Burr Cells 1+; Platelet Estimate ADEQ
--- NOTE | 2019-11-30 04:58 | EDPHYS ---
Physician Documentation [facility] Name: Alysa Mayes Age: 64 yrs Sex: Female : 1955 Arrival Date: 11/30/2019 Time: 01:53 Bed 3 Private MD: ED Physician Bebo Najera HPI: 11/30 02:15 This 64 yrs old Black Female presents to ER via EMS with unknown complaint. pkl 02:15 The patient or guardian reports chest pain that is located primarily in the substernal pkl area. Onset: just prior to arrival, 3 hour(s) ago. The pain does not radiate. Associated signs and symptoms: The patient has no apparent associated signs or symptoms. The chest pain is described as a pressure. H/O Chronic renal disease. Dialysis MWF. Did not go for dialysis today. Historical: - Allergies: 02:01 amlodipine; jd3 02:01 Amoxicillin; jd3 02:01 PENICILLINS; jd3 - Home Meds: 02:01 Eliquis 2.5 mg Oral tab 1 tab 2 times per day [Active]; carvedilol 6.25 mg Oral tab 1 jd3 tab 2 times per day [Active]; carvedilol 12.5 mg Oral tab 1 tab 2 times per day [Active]; isosorbide mononitrate 30 mg Oral Tb24 1 tab once daily [Active]; Levemir 100 unit/mL subcutaneous soln [Active]; lisinopril 2.5 mg Oral tab 1 tab once daily [Active]; loratadine 10 mg Oral tab 1 tab once daily [Active]; - PMHx: 02:01 CHF; COPD; Depression; Anemia; Diabetes - IDDM; Dialysis; MWF; Gout; Hyperlipidemia; jd3 Hypertension; pressure ulcers; Hypothyroidism; - PSHx: 02:01 left upper arm fistula; R thigh Fistula (dialysis); jd3 - Immunization history:: Adult Immunizations unknown. - Social history:: Smoking status: unknown. - Ebola Screening: : Patient negative for fever greater than or equal to 101.5 degrees Fahrenheit, and additional compatible Ebola Virus Disease symptoms. ROS: 02:15 Eyes: Negative for injury, pain, redness, and discharge, ENT: Negative for injury, pkl pain, and discharge, Neck: Negative for injury, pain, and swelling. 02:15 Cardiovascular: Positive for chest pain. 02:15 Respiratory: Negative for cough, shortness of breath. 02:15 Abdomen/GI: Negative for abdominal pain, nausea, vomiting, and diarrhea. 02:15 Back: Negative for acute changes. 02:15 : Negative for urinary symptoms. 02:15 MS/extremity: Negative for acute changes. 02:15 Skin: Negative for rash. 02:15 Neuro: Negative for altered mental status, loss of consciousness. Exam: 02:15 Head/Face: Normocephalic, atraumatic. Eyes: Pupils equal round and reactive to light, pkl extra-ocular motions intact. Lids and lashes normal. Conjunctiva and sclera are non-icteric and not injected. Cornea within normal limits. Periorbital areas with no swelling, redness, or edema. ENT: Nares patent. No nasal discharge, no septal abnormalities noted. Tympanic membranes are normal and external auditory canals are clear. Oropharynx with no redness, swelling, or masses, exudates, or evidence of obstruction, uvula midline. Mucous membranes moist. Neck: Trachea midline, no thyromegaly or masses palpated, and no cervical lymphadenopathy. Supple, full range of motion without nuchal rigidity, or vertebral point tenderness. No Meningismus. Chest/axilla: Normal chest wall appearance and motion. Nontender with no deformity. No lesions are appreciated. Cardiovascular: Regular rate and rhythm with a normal S1 and S2. No gallops, murmurs, or rubs. Normal PMI, no JVD. No pulse deficits. Respiratory: Lungs have equal breath sounds bilaterally, clear to auscultation and percussion. No rales, rhonchi or wheezes noted. No increased work of breathing, no retractions or nasal flaring. Abdomen/GI: Soft, non-tender, with normal bowel sounds. No distension or tympany. No guarding or rebound. No evidence of tenderness throughout. Back: No spinal tenderness. No costovertebral tenderness. Full range of motion. Skin: Warm, dry with normal turgor. Normal color with no rashes, no lesions, and no evidence of cellulitis. MS/ Extremity: Pulses equal, no cyanosis. Neurovascular intact. Full, normal range of motion. Neuro: Awake and alert, GCS 15, oriented to person, place, time, and situation. Cranial nerves II-XII grossly intact. Motor strength 5/5 in all extremities. Sensory grossly intact. Cerebellar exam normal. Normal gait. Vital Signs: 02:06 BP 125 / 79; Pulse 81; Resp 17 S; Temp 97.5(O); Pulse Ox 100% on R/A; Weight 86.18 kg jd3 (R); Height 5 ft. 4 in. (162.56 cm) (R); Pain 10/10; 03:32 BP 107 / 65; Pulse 76; Resp 19 S; Pulse Ox 96% on R/A; jd3 04:30 BP 113 / 55; Pulse 70; Resp 17; Pulse Ox 98% ; rr5 05:51 BP 111 / 60; Pulse 75; Resp 16; Temp 97.9; Pulse Ox 99% ; rr5 02:06 Body Mass Index 32.61 (86.18 kg, 162.56 cm) jd3 MDM: 01:53 Patient medically screened. pkl 04:55 Data reviewed: vital signs, nurses notes, lab test result(s), EKG, radiologic studies, pkl plain films. ED course: Talked to Dr. Madrid, for observation. 11/30 02:08 Order name: Basic Metabolic Panel; Complete Time: 04:05 jd3 11/30 02:08 Order name: CBC with Diff; Complete Time: 04:29 jd3 11/30 02:08 Order name: LFT's; Complete Time: 04:05 jd3 11/30 02:08 Order name: Magnesium; Complete Time: 04:06 jd3 11/30 02:08 Order name: NT PRO-BNP; Complete Time: 04:05 jd3 11/30 02:08 Order name: PT-INR; Complete Time: 04:05 jd3 11/30 02:08 Order name: Troponin (emerg Dept Use Only); Complete Time: 04:06 jd3 11/30 02:08 Order name: XRAY Chest (1 view) jd3 11/30 03:05 Order name: Manual Differential; Complete Time: 04:29 EDMS 11/30 03:34 Order name: ABG pkl 11/30 04:30 Order name: Troponin (emerg Dept Use Only) pkl 11/30 05:37 Order name: Troponin I EDMS 11/30 05:37 Order name: Troponin I EDMS 11/30 05:37 Order name: Troponin I EDMN 11/30 02:08 Order name: EKG; Complete Time: 02:09 jd3 11/30 02:08 Order name: Cardiac monitoring; Complete Time: 02:08 jd3 11/30 02:08 Order name: EKG - Nurse/Tech; Complete Time: 02:08 jd3 11/30 02:08 Order name: IV Saline Lock; Complete Time: 02:08 jd3 11/30 02:08 Order name: Labs collected and sent; Complete Time: 02:20 jd3 11/30 02:08 Order name: O2 Per Protocol; Complete Time: 02:08 jd3 11/30 02:08 Order name: O2 Sat Monitoring; Complete Time: 02:08 jd3 11/30 04:30 Order name: EKG; Complete Time: 04:31 pkl 11/30 05:37 Order name: CONS Pharmacy Consult EDMN 11/30 05:37 Order name: CONS Physician Consult EDMN 11/30 05:37 Order name: Renal EDMN Administered Medications: 02:18 Drug: Zofran 4 mg Route: IVP; Site: right forearm; rr5 02:21 Drug: morphine 4 mg {Note: rass 0.} Route: IVP; Site: right forearm; rr5 Disposition: 11/30/19 04:57 Hospitalization ordered by Jose A Madrid for Observation. Preliminary diagnosis is Chest pain. Chronic renal disease. Missed dialysis. - Bed requested for [facility] ER HOLD. - Status is Observation. bp - Condition is Stable. - Problem is new. - Symptoms are unchanged. UTI on Admission? No Signatures: Dispatcher [employer] [facility] Shanna Becerra RN RN mw Lam, Pin, MD MD pkl Davies, Jonathon, RN RN jKen Vale RN RN bp Roque, Raymond RN RN rr5 Corrections: (The following items were deleted from the chart) 05:09 04:57 Hospitalization Ordered by Jose A Madrid MD for Observation. Preliminary perla diagnosis is Chest pain. Chronic renal disease. Missed dialysis. Bed requested for Telemetry/MedSurg (observation). Status is Observation. Condition is Stable. Problem is new. Symptoms are unchanged. UTI on Admission? No. pkl 13:23 05:09 11/30/2019 04:57 Hospitalization Ordered by Jose A Madrid MD for Observation. bp Preliminary diagnosis is Chest pain. Chronic renal disease. Missed dialysis. Bed requested for [facility] ER HOLD. Status is Observation. Condition is Stable. Problem is new. Symptoms are unchanged. UTI on Admission? No. mw
--- NOTE | 2019-11-30 04:58 | ER ---
Nurse's Notes [facility] Name: Alysa Mayes Age: 64 yrs Sex: Female : 1955 Arrival Date: 11/30/2019 Time: 01:53 Bed 3 Private MD: Diagnosis: Chest pain. Chronic renal disease. Missed dialysis Presentation: 11/30 01:53 Presenting complaint: EMS states: "from [facility], pt reporting that she has been having jd3 chest pain since she woke up at 2300 yesterday mainly on the left side. she describes it as chest pressure that does not travel anywhere. denies nausea, vomiting, and shortness of breath. she had stable vitals, we started a 22 G IV to the right forearm. she reported to us that she is a dialysis pt and that her left arm was off limits.". Transition of care: patient was not received from another setting of care. Onset of symptoms was November 30, 2019. Risk Assessment: Do you want to hurt yourself or someone else? Patient reports no desire to harm self or others. Initial Sepsis Screen: Does the patient meet any 2 criteria? No. Patient's initial sepsis screen is negative. Does the patient have a suspected source of infection? No. Patient's initial sepsis screen is negative. Care prior to arrival: Medication(s) given: ASA, 81 mg, x 4, IV initiated. 20 GA, in the right forearm, Glucose check: 120. 01:53 Method Of Arrival: EMS: [facility] jd3 01:53 Acuity: LESLEE 3 jd3 Historical: - Allergies: 02:01 amlodipine; jd3 02:01 Amoxicillin; jd3 02:01 PENICILLINS; jd3 - Home Meds: 02:01 Eliquis 2.5 mg Oral tab 1 tab 2 times per day [Active]; carvedilol 6.25 mg Oral tab 1 jd3 tab 2 times per day [Active]; carvedilol 12.5 mg Oral tab 1 tab 2 times per day [Active]; isosorbide mononitrate 30 mg Oral Tb24 1 tab once daily [Active]; Levemir 100 unit/mL subcutaneous soln [Active]; lisinopril 2.5 mg Oral tab 1 tab once daily [Active]; loratadine 10 mg Oral tab 1 tab once daily [Active]; - PMHx: 02:01 CHF; COPD; Depression; Anemia; Diabetes - IDDM; Dialysis; MWF; Gout; Hyperlipidemia; jd3 Hypertension; pressure ulcers; Hypothyroidism; - PSHx: 02:01 left upper arm fistula; R thigh Fistula (dialysis); jd3 - Immunization history:: Adult Immunizations unknown. - Social history:: Smoking status: unknown. - Ebola Screening: : Patient negative for fever greater than or equal to 101.5 degrees Fahrenheit, and additional compatible Ebola Virus Disease symptoms. Screenin:01 Abuse screen: Denies threats or abuse. Nutritional screening: No deficits noted. jd3 Tuberculosis screening: No symptoms or risk factors identified. Fall Risk IV access (20 points). Ambulatory Aid- None/Bed Rest/Nurse Assist (0 pts). Gait- Weak (10 pts.). Mental Status- Oriented to own ability (0 pts). Total Yang Fall Scale indicates Low Risk Score (25-44 pts). Fall prevention measures have been instituted. Side Rails Up X 2 Placed close to Nursing Station Frequent Obs/Assesments occuring. Assessment: 02:00 General: Appears in no apparent distress. uncomfortable, Behavior is calm, cooperative, rr5 appropriate for age. 02:00 Pain: Complains of pain in chest Pain does not radiate. Pain currently is 10 out of 10 rr5 on a pain scale. Quality of pain is described as aching, Pain began gradually, Is intermittent. Neuro: Level of Consciousness is awake, alert, obeys commands, Oriented to person, place, time, situation. Cardiovascular: Reports chest pain, since 11 am 11/29/18 Capillary refill < 3 seconds Patient's skin is warm and dry. Dialysis shunt: in the left arm and right leg, with no palpable pulse, no bleeding noted. Respiratory: Airway is patent Respiratory effort is even, unlabored, Respiratory pattern is regular, symmetrical. GI: No signs and/or symptoms were reported involving the gastrointestinal system. : No signs and/or symptoms were reported regarding the genitourinary system. EENT: No signs and/or symptoms were reported regarding the EENT system. Derm: Skin is intact, is healthy with good turgor, Decubitus. Musculoskeletal: Circulation, motion, and sensation intact. Capillary refill < 3 seconds. 03:31 Reassessment: Patient appears in no apparent distress at this time. Patient and/or jd3 family updated on plan of care and expected duration. Pain level reassessed. Patient is alert, oriented x 3, equal unlabored respirations, skin warm/dry/pink. pt resting in bed with eyes closed, even and unlabored respirations. call light in reach. no signs of distress noted at this time. 04:15 Reassessment: Patient appears in no apparent distress at this time. No changes from rr5 previously documented assessment. Patient and/or family updated on plan of care and expected duration. Pain level reassessed. 05:00 Reassessment: Patient appears in no apparent distress at this time. Patient is alert, rr5 oriented x 3, equal unlabored respirations, skin warm/dry/pink. seen and examined by patient is for admission. 07:00 Reassessment: RECD REPORT FROM TIFFANY DUMONT. 64YO BF P/W CHEST PAIN, PT IS ER HOLD FOR bp OBS ADMIT, SEE [facility] FOR FURTHER DOCUMENTATION. 13:15 Reassessment: PT D/C HOME FROM ERHOLD BY HOSPITALIST, DX WITH FLUID OVERLOAD. bp Vital Signs: 02:06 BP 125 / 79; Pulse 81; Resp 17 S; Temp 97.5(O); Pulse Ox 100% on R/A; Weight 86.18 kg jd3 (R); Height 5 ft. 4 in. (162.56 cm) (R); Pain 10/10; 03:32 BP 107 / 65; Pulse 76; Resp 19 S; Pulse Ox 96% on R/A; jd3 04:30 BP 113 / 55; Pulse 70; Resp 17; Pulse Ox 98% ; rr5 05:51 BP 111 / 60; Pulse 75; Resp 16; Temp 97.9; Pulse Ox 99% ; rr5 02:06 Body Mass Index 32.61 (86.18 kg, 162.56 cm) jd3 ED Course: 01:53 Patient arrived in ED. jd3 01:53 Bebo Najera MD is Attending Physician. pkl 01:57 Triage completed. jd3 02:00 Maintain EMS IV. Dressing intact. Good blood return noted. Site clean \\T\\ dry. Gauge \\T\\ rr 5 site: G20 right forearm. 02:01 Arm band placed on. EKG completed in triage. Results shown to . jd3 02:02 Patient has correct armband on for positive identification. Placed in gown. Bed in low jd3 position. Call light in reach. Side rails up X 1. 02:02 campus monitor on. Pulse ox on. NIBP on. jd3 02:02 Patient maintains SpO2 saturation greater than 95% on room air. jd3 02:14 Jeff Harris, RN is Primary Nurse. jd3 02:15 EKG done, by ED staff, reviewed by Bebo Najera MD. rr5 02:34 XRAY Chest (1 view) In Process Unspecified. EDMS 03:44 Notified ED physician of a critical lab result(s). creatinine 13.1 randy from rr5 laboratory called. 04:50 Repeat lab(s) drawn. by me, sent to lab. EKG done, by ED staff, reviewed by Bebo Najera MD. rr5 04:56 Jose A Madrid MD is Hospitalizing Provider. pkl 05:51 No provider procedures requiring assistance completed. Patient admitted, IV remains in rr5 place. intact, No redness/swelling at site. Administered Medications: 02:18 Drug: Zofran 4 mg Route: IVP; Site: right forearm; rr5 02:21 Drug: morphine 4 mg {Note: rass 0.} Route: IVP; Site: right forearm; rr5 Outcome: 04:57 Decision to Hospitalize by Provider. pkl 05:51 Admitted to ER Hold. Please see [facility] for further documentation. rr5 05:51 Condition: stable 05:51 Instructed on the need for admit. 13:23 Patient left the ED. bp Signatures: Dispatcher [employer] EDIA Bebo Najera MD MD pkl Jeff Harris, RN RN jd3 Ken Valle RN RN Hugo Garcia RN RN rr5 Corrections: (The following items were deleted from the chart) 03:32 03:31 Reassessment: Patient appears in no apparent distress at this time. No changes jd3 from previously documented assessment. Patient and/or family updated on plan of care and expected duration. Pain level reassessed. Patient is alert, oriented x 3, equal unlabored respirations, skin warm/dry/pink. jd3
[2019-11-30] MEDS ORDERED: MORPHINE 2 MG/ML SYR IV PRN (05:31)
[2019-11-30] MEDS ORDERED: ONDANSETRON 4 MG/2 ML VIAL IV PRN (05:31)
[2019-11-30] MEDS ORDERED: ACETAMINOPHEN 500 MG TAB PO PRN (05:31)
--- NOTE | 2019-11-30 05:40 | P.HP ---
Certification for Inpatient Patient admitted to: Observation With expected LOS: <2 Midnights Patient will require the following post-hospital care: None Practitioner: I am a practitioner with admitting privileges, knowledge of patient current condition, hospital course, and medical plan of care. Services: Services provided to patient in accordance with Admission requirements found in Title 42 Section 412.3 of the Code of Federal Regulations Patient History Date of Service: 11/30/19 Reason for admission: Chest pain; fluid overload; ESRD; dyspnea History of Present Illness: Patient is a 64-year-old female who was recently discharged from [facility] about a week ago. She states she was in the hospital for about a month if she is not sure exactly why she was in the hospital. She apparently was in the intensive care unit, and she was intubated. She was discharged about a week and a half ago. She has been living with her family. She came into the emergency room for further evaluation. [facility] and did not need to be in the hospital. Since she is moved back home she has been in the hospital at least 4 different occasions. She does not want to go back to the penitentiary. She lives in [place] with her family which she will continue to do at discharge. Allergies amoxicillin [Amoxicillin] Allergy (Verified 06/08/18 19:55) unknown Penicillins Adverse Reaction (Mild, Verified 06/08/18 19:55) itching rash amlodipine Adverse Reaction (Verified 06/08/18 19:55) Itching/Hives/Rash Home Medications: Atorvastatin Calcium 40 mg PO BEDTIME 02/17/18 Insulin Detemir [Levemir*] 8 unit SQ BID 02/17/18 Levothyroxine [Synthroid*] 50 mcg PO [id number] 02/17/18 Pregabalin [Lyrica*] 150 mg PO BID 06/08/18 Hydrocodone Bit/Acetaminophen [Llewellyn 7.5-325 Tablet] 1 each PO Q6H PRN 11/20/18 Nepafenac [Ilevro] 1 drop OP DAILY PRN 11/20/18 Zinc Sulfate [Zinc Sulfate*] 220 mg PO DAILY 11/20/18 Apixaban [Eliquis *] 2.5 mg PO BID 03/15/19 Arginald Packet 1 packet PO DAILY 03/15/19 Ascorbic Acid [Vitamin C] 500 mg PO DAILY 03/15/19 Aspirin 81 mg PO DAILY 03/15/19 Calcium Carbonate [Tums] 2 tab.chew PO TIDWM 03/15/19 Cinacalcet HCl [Sensipar*] 2 tab PO DAILY 03/15/19 Folic Acid/Vit B Complex and C [Linda-Ryan Tablet] 1 tab PO DAILY 03/15/19 Medihoney [Medihoney Woundcare Gel*] 1 appl TD M,W,F 03/15/19 Metoprolol Succinate [Toprol Xl*] 50 mg PO DAILY 03/15/19 Vancomycin/0.9 % Sod Chloride [Vancomycin 1 G/100Ml-0.9% NaCl] 1 gm IV AFTER EACH DIALYSIS 14 Days plast..bag 04/02/19 - Past Medical/Surgical History Diabetic: Yes -: HTN -: COPD -: Diabetes mellitus type 2 -: Anemia of chronic disease -: ESRD, poor compliance with dialysis -: Depression with anxiety -: CHF, diastolic dysfunction -: Gout -: COPD -: Chronic left pressure ulcer heel -: Hypothyroidism -: Charcot arthropathy -: Right eye December 25 2014-cataract -: Left eye January 15 2015-cataract -: right groin fistula -: Left chest HD access Psychosocial/ Personal History: Single, Children-2, Work-none - Family History Father Medical History: Heart disease, Cancer Notes: prostate cancer Mother Medical History: Heart disease, Hypertension, Diabetes, Cancer Notes: breast CA - Social History Smoking Status: Former smoker Alcohol use: No CD- Drugs: No Caffeine use: No Review of Systems 10-point ROS is otherwise unremarkable Physical Examination - Vital Signs Temperature: 98.9 F Blood Pressure: 120/70 Pulse: 88 Respirations: 24 Pulse Ox (%): 93 - Physical Exam General: Alert, In no apparent distress, Oriented x3 HEENT: Atraumatic, Normocephalic Neck: Supple, 2+ carotid pulse no bruit, JVD not distended, No Thyromegaly Respiratory: Diminished, Crackles/rales Cardiovascular: Regular rate/rhythm, Normal S1 S2, Systolic murmur Gastrointestinal: Normal bowel sounds, Hypoactive, Soft and benign, Non- distended Musculoskeletal: No clubbing, No swelling, No contractures Integumentary: No rashes, No breakdown Neurological: Normal speech, Normal tone, Sensation intact, Cranial nerves 3-12 intact, Abnormal gait, Abnormal strength - Studies Laboratory Data (last 24 hrs) 11/30/19 02:18: PT 15.7 H, INR 1.35 11/30/19 02:18: WBC 7.9 D, Hgb 10.8 L, Hct 34.3 L, Plt Count 130 L 11/30/19 02:18: Sodium 138, Potassium 4.6, BUN 63 H, Creatinine 13.10 H*, Glucose 119 H, Magnesium 2.4, Total Bilirubin 0.5, AST 11 L, ALT 13, Alkaline Phosphatase 159 H Assessment & Plan - Problems (Diagnosis) (1) Dyspnea Current Visit: Yes Status: Acute (2) Chest pain, rule out acute myocardial infarction Current Visit: Yes Status: Acute (3) ESRD (end stage renal disease) Current Visit: Yes Status: Acute (4) COPD exacerbation Onset Date: 07/22/17 Current Visit: No Status: Acute (5) Depression Onset Date: 03/22/17 Current Visit: No Status: Chronic Qualifiers: (6) Diabetes mellitus Onset Date: 03/23/16 Current Visit: No Status: Chronic Qualifiers: (7) Hypothyroidism Onset Date: 12/14/16 Current Visit: No Status: Chronic - Plan Plan: 1. Hemodialysis per Nephrology; once we finished dialyzing her she should be stable for discharge home. 2. Strict blood pressure and blood sugar control 3. Ambulate 4. Monitor volume status closely 5. Anticipate discharge home after dialysis 6. GI and DVT prophylaxis Discharge Plan: Home Plan to discharge in: Greater than 2 days - Advance Directives Does patient have a Living Will: No Does patient have a Durable POA for Healthcare: No - Code Status/Comfort Care Code Status Assessed: Yes Code Status: Full Code Critical Care: No Time Spent Managing PTS Care (In Minutes): 45
[2019-11-30 06:13] VITALS: BMI 32.5
--- NOTE | 2019-11-30 09:32 | RAD REPORT ---
EXAM DESCRIPTION: RAD - Chest Single View - 11/30/2019 2:33 am CLINICAL HISTORY: Chest pain COMPARISON: November 26 TECHNIQUE: AP portable chest image was obtained 0230 hours . FINDINGS: Lung volumes are low. No measurable pulmonary edema. No peripheral mass or consolidation. Posterior gutter assessment is limited. Dialysis catheter remains in place. Heart and vasculature are normal. No measurable pleural effusion and no pneumothorax. No acute bony abnormality seen. No acute aortic findings suspected. IMPRESSION: Shallow inspiration exam showing no pulmonary edema or other acute cardiopulmonary findi ng.
[2019-11-30 12:04] VITALS: BP 128/79; TEMP 97.5
[2019-11-30 13:32] VITALS: O2SAT 99
--- NOTE | 2019-12-01 06:45 | EKG ---
Test Date: 2019-11-30 Test Time: 04:34:39 Critical Care Nurse Specialist: RR MEASUREMENT RESULTS: Intervals: Rate: 78 WA: 174 QRSD: 154 QT: 456 QTc: 519 [place]: P: 64 WA: 174 QRS: 50 T: 252 INTERPRETIVE STATEMENTS: Normal sinus rhythm Left bundle branch block Abnormal ECG Compared to ECG 11/30/2019 02:06:37 No significant changes Electronically Signed On 12-01-19 06:43:41 CUSTOMER RESOURCE SPECIALIST by Nithin Lloyd
--- NOTE | 2019-12-01 06:46 | EKG ---
Test Date: 2019-11-30 Test Time: 02:06:37 Pipe Cleaning Machine Operator: RR MEASUREMENT RESULTS: Intervals: Rate: 81 WA: 166 QRSD: 152 QT: 444 QTc: 515 [place]: P: 62 WA: 166 QRS: 54 T: 244 INTERPRETIVE STATEMENTS: Normal sinus rhythm Left bundle branch block Abnormal ECG Compared to ECG 11/26/2019 10:49:16 Left bundle-branch block now present Fusion complex(es) no longer present Intraventricular conduction delay no longer present Electronically Signed On 12-01-19 06:43:44 DIESEL AUTOMOTIVE TECHNICIAN by Nithin Lloyd
== END 2019-11-30 13:25 | disposition home or self-care (01) ==
LOC: ER 01:49 → ERHOLD 05:32
PROVIDERS: ADMIT Hospitalist; ATTEND Hospitalist
DX: R07.9 Chest pain, unspecified (principal); I13.2 Hypertensive heart and chronic kidney disease with heart failure and with stage 5 chronic kidney disease, or end stage renal disease; E11.22 Type 2 diabetes mellitus with diabetic chronic kidney disease; N18.6 End stage renal disease; I50.32 Chronic diastolic (congestive) heart failure; E03.9 Hypothyroidism, unspecified; F32.9 Major depressive disorder, single episode, unspecified; Z88.0 Allergy status to penicillin
CPT/HCPCS: 93005 ×2; 85025; 80048; 36415; 83735; 85610; 80076; 84484 ×4; 83880; 71045; 82805; 96375; 96374; 99285; J2405; G0378 ×2

== ENCOUNTER 2019-12-01 01:30 | Observation (INO) | payer MEDICAID ==
--- OUTSIDE RECORDS SUMMARY | 2019-12-01 01:37 | XMS REPORT ---
:1955 [facility] Address [address] [place] [address] Care Team Providers Name Role Phone ARELY [...] Value Reference Range Comments CULTURE (BEAKER) (test ggie=7657) No growth in 5 days POCT-GLUCOSE [id number] 09:17:00 Test Item Value Reference Range Comments POC-GLUCOSE METER (BEAKER) 110 mg/dL 70-110 TESTED AT [facility] [address] [facility] (test okwf=4213) [facility] [address] CBC W/PLT COUNT & AUTO [id number] 07:05:00 Test Item Value Reference Range Comments WHITE BLOOD CELL COUNT (BEAKER) (test expe=215) 8.2 K/ L 3.5-10.5 RED BLOOD CELL COUNT (BEAKER) (test rvoz=598) 2.79 M/ L 3.93-5.22 HEMOGLOBIN (BEAKER) (test vvxh=461) 7.8 GM/DL 11.2-15.7 HEMATOCRIT (BEAKER) (test ovwx=800) 26.4 % 34.1-44.9 MEAN CORPUSCULAR VOLUME (BEAKER) (test wfkm=418) 94.6 fL 79.4-94.8 MEAN CORPUSCULAR HEMOGLOBIN (BEAKER) (test 28.0 pg 25.6-32.2 uejy=421) MEAN CORPUSCULAR HEMOGLOBIN CONC (BEAKER) (test 29.5 GM/DL 32.2-35.5 xqtj=353) RED CELL DISTRIBUTION WIDTH (BEAKER) (test 14.5 % 11.7-14.4 dyah=140) PLATELET COUNT (BEAKER) (test hhbj=785) 299 K/CU MM 150-450 MEAN PLATELET VOLUME (BEAKER) (test tqoz=016) 10.0 fL 9.4-12.3 NUCLEATED RED BLOOD CELLS (BEAKER) (test 0 /100 WBC 0-0 ktlv=541) NEUTROPHILS RELATIVE PERCENT (BEAKER) (test 72 % rnzf=663) LYMPHOCYTES RELATIVE PERCENT (BEAKER) (test 11 % slvu=339) MONOCYTES RELATIVE PERCENT (BEAKER) (test 10 % euzo=456) EOSINOPHILS RELATIVE PERCENT (BEAKER) (test 5 % byuk=787) BASOPHILS RELATIVE PERCENT (BEAKER) (test 1 % bqxa=251) NEUTROPHILS ABSOLUTE COUNT (BEAKER) (test 5.93 K/ L 1.56-6.13 swvu=089) LYMPHOCYTES ABSOLUTE COUNT (BEAKER) (test 0.87 K/ L 1.18-3.74 gedb=097) MONOCYTES ABSOLUTE COUNT (BEAKER) (test 0.84 K/ L 0.24-0.36 jodo=166) EOSINOPHILS ABSOLUTE COUNT (BEAKER) (test 0.44 K/ L 0.04-0.36 msvi=519) BASOPHILS ABSOLUTE COUNT (BEAKER) (test 0.09 K/ L 0.01-0.08 yhxl=776) IMMATURE GRANULOCYTES-RELATIVE PERCENT (BEAKER) 1 % 0-1 (test dhyx=1053) BASIC METABOLIC [id number] 07:04:00 Test Item Value Reference Range Comments SODIUM (BEAKER) (test 139 meq/L 136-145 umva=687) POTASSIUM (BEAKER) (test 4.3 meq/L 3.5-5.1 rrgt=807) CHLORIDE (BEAKER) (test 104 meq/L 98-107 jnnz=580) CO2 (BEAKER) (test 26 meq/L 22-29 wfyl=609) BLOOD UREA NITROGEN 31 mg/dL 7-21 (BEAKER) (test xnea=750) CREATININE (BEAKER) (test 5.39 mg/dL 0.57-1.25 qbvi=589) GLUCOSE RANDOM (BEAKER) 83 mg/dL 70-105 (test plcg=752) CALCIUM (BEAKER) (test 9.1 mg/dL 8.4-10.2 komu=477) EGFR (BEAKER) (test 10 mL/min/1.73 sq m ESTIMATED GFR IS NOT lmuf=6133) ACCURATE CREATININE CLEARANCE IN PREDICTING GLOMERULAR FILTRATION RATE. ESTIMATED GFR IS NOT APPLICABLE FOR DIALYSIS PATIENTS. RAD, ABDOMEN/KUB, 1 VIEW [id number] 04:19:00Reason for exam:->abdominal painFINAL REPORT EXAMINATION: SUPINE [...] Verified Date/ Time: 12/08/2018 04:19:23 Reading Location: [address] Reading Room POCT-GLUCOSE [id number] 21:25:00 Test Item Value Reference Range Comments POC-GLUCOSE METER (BEAKER) 193 mg/dL 70-110 TESTED AT [address] (test utxu=4242) [facility] [address] POCT-GLUCOSE [id number] 17:52:00 Test Item Value Reference Range Comments POC-GLUCOSE METER (BEAKER) 152 mg/dL 70-110 TESTED AT [address] (test hjxu=6051) [facility] [address] POCT-GLUCOSE [id number] 14:15:00 Test Item Value Reference Range Comments POC-GLUCOSE METER (BEAKER) 284 mg/dL 70-110 TESTED AT [address] (test wthi=8001) [facility] [address] POCT-GLUCOSE [id number] 08:09:00 Test Item Value Reference Range Comments POC-GLUCOSE METER (BEAKER) 185 mg/dL 70-110 TESTED AT [address] (test nyfu=2406) [facility] [address] BASIC METABOLIC [id number] 06:30:00 Test Item Value Reference Range Comments SODIUM (BEAKER) (test 137 meq/L 136-145 fczz=465) POTASSIUM (BEAKER) (test 4.2 meq/L 3.5-5.1 prfa=815) CHLORIDE (BEAKER) (test 98 meq/L 98-107 dfnc=811) CO2 (BEAKER) (test 28 meq/L 22-29 dwbm=649) BLOOD UREA NITROGEN 46 mg/dL 7-21 (BEAKER) (test ouok=628) CREATININE (BEAKER) (test 6.96 mg/dL 0.57-1.25 wfrk=378) GLUCOSE RANDOM (BEAKER) 131 mg/dL 70-105 (test mvjx=859) CALCIUM (BEAKER) (test 9.1 mg/dL 8.4-10.2 pibg=979) EGFR (BEAKER) (test 7 mL/min/1.73 sq m ESTIMATED GFR IS NOT shiv=0953) ACCURATE CREATININE CLEARANCE IN PREDICTING GLOMERULAR FILTRATION RATE. ESTIMATED GFR IS NOT APPLICABLE FOR DIALYSIS PATIENTS. [id number] 06:29:00 Test Item Value Reference Range Comments MAGNESIUM (BEAKER) (test irkg=213) 2.2 mg/dL 1.6-2.6 CBC W/PLT COUNT & AUTO [id number] 05:57:00 Test Item Value Reference Range Comments WHITE BLOOD CELL COUNT (BEAKER) (test olvm=321) 11.4 K/ L 3.5-10.5 RED BLOOD CELL COUNT (BEAKER) (test pjwg=847) 2.56 M/ L 3.93-5.22 HEMOGLOBIN (BEAKER) (test knma=917) 7.2 GM/DL 11.2-15.7 HEMATOCRIT (BEAKER) (test nrpx=749) 23.4 % 34.1-44.9 MEAN CORPUSCULAR VOLUME (BEAKER) (test ffgi=678) 91.4 fL 79.4-94.8 MEAN CORPUSCULAR HEMOGLOBIN (BEAKER) (test 28.1 pg 25.6-32.2 asxq=081) MEAN CORPUSCULAR HEMOGLOBIN CONC (BEAKER) (test 30.8 GM/DL 32.2-35.5 uuds=419) RED CELL DISTRIBUTION WIDTH (BEAKER) (test 14.6 % 11.7-14.4 wzrf=353) PLATELET COUNT (BEAKER) (test doyh=584) 246 K/CU MM 150-450 MEAN PLATELET VOLUME (BEAKER) (test dubh=828) 9.8 fL 9.4-12.3 NUCLEATED RED BLOOD CELLS (BEAKER) (test 0 /100 WBC 0-0 trys=397) NEUTROPHILS RELATIVE PERCENT (BEAKER) (test 82 % voag=593) LYMPHOCYTES RELATIVE PERCENT (BEAKER) (test 6 % amfh=992) MONOCYTES RELATIVE PERCENT (BEAKER) (test 8 % izlw=208) EOSINOPHILS RELATIVE PERCENT (BEAKER) (test 3 % rhjk=086) BASOPHILS RELATIVE PERCENT (BEAKER) (test 1 % zlva=919) NEUTROPHILS ABSOLUTE COUNT (BEAKER) (test 9.41 K/ L 1.56-6.13 fhjg=542) LYMPHOCYTES ABSOLUTE COUNT (BEAKER) (test 0.70 K/ L 1.18-3.74 oylb=776) MONOCYTES ABSOLUTE COUNT (BEAKER) (test 0.89 K/ L 0.24-0.36 pbew=508) EOSINOPHILS ABSOLUTE COUNT (BEAKER) (test 0.31 K/ L 0.04-0.36 fmqs=725) BASOPHILS ABSOLUTE COUNT (BEAKER) (test 0.06 K/ L 0.01-0.08 kybr=695) IMMATURE GRANULOCYTES-RELATIVE PERCENT (BEAKER) 1 % 0-1 (test jngr=0173) POCT-GLUCOSE [id number] 21:35:00 Test Item Value Reference Range Comments POC-GLUCOSE METER (BEAKER) 249 mg/dL 70-110 TESTED AT [place] [id number] [facility] (test nmrm=7116) [facility] [address] POCT-GLUCOSE [id number] 17:49:00 Test Item Value Reference Range Comments POC-GLUCOSE METER (BEAKER) 168 mg/dL 70-110 TESTED AT [place] [id number] [facility] (test triw=1635) [place] [id number] [facility], MULTI, PHARM, [id number] 16:00:00FINAL REPORT PROCEDURE: Rest/Stress MYOCARDIAL PERFUSION SPECT with regadenoson\\XA9\\ CPT CODE: 09258 INDICATION: New onset heart failure, intermediate risk [...] tracer distribution is normal. 6. No previous [facility] study for comparison. Signed: Dariana Jones MDReport Verified Date/Time: 12/06/2018 16:00:51 Reading Location: [address] Reading Room Electronically signed by: DARIANA JONES MD on 2018 04:00 PMANG, TUNNELED CATHETER [id number] 14:29:00Reason for exam :->Tunneled cath for dialysisFINAL [...] 12/06/2018 14:29:30 Reading Location : [place] [address] Angio Body Reading Room POCT-GLUCOSE [id number] 12:31:00 Test Item Value Reference Range Comments POC-GLUCOSE METER (BEAKER) 187 mg/dL 70-110 TESTED AT [address] (test jyyj=7306) [facility] [address] POCT-GLUCOSE [id number] 11:21:00 Test Item Value Reference Range Comments POC-GLUCOSE METER (BEAKER) 165 mg/dL 70-110 TESTED AT [place] [id number] [facility] (test bonl=1010) [facility] [address] POCT-GLUCOSE [id number] 06:17:00 Test Item Value Reference Range Comments POC-GLUCOSE METER (BEAKER) 108 mg/dL 70-110 TESTED AT [address] (test gpbx=0755) [facility] [address] VANCOMYCIN LEVEL, [id number] 02:03:00 Test Item Value Reference Range Comments VANCOMYCIN RANDOM (BEAKER) (test zjfl=892) 18.7 ug/mL Reference Range: No NormalsCBC W/PLT COUNT & AUTO [id number] 01: 48:00 Test Item Value Reference Range Comments WHITE BLOOD CELL COUNT (BEAKER) (test frzr=037) 12.1 K/ L 3.5-10.5 RED BLOOD CELL COUNT (BEAKER) (test ewvz=632) 2.76 M/ L 3.93-5.22 HEMOGLOBIN (BEAKER) (test yyuf=648) 7.7 GM/DL 11.2-15.7 HEMATOCRIT (BEAKER) (test rgnf=138) 25.1 % 34.1-44.9 MEAN CORPUSCULAR VOLUME (BEAKER) (test spis=622) 90.9 fL 79.4-94.8 MEAN CORPUSCULAR HEMOGLOBIN (BEAKER) (test 27.9 pg 25.6-32.2 jcyj=494) MEAN CORPUSCULAR HEMOGLOBIN CONC (BEAKER) (test 30.7 GM/DL 32.2-35.5 tajy=252) RED CELL DISTRIBUTION WIDTH (BEAKER) (test 14.6 % 11.7-14.4 jpez=032) PLATELET COUNT (BEAKER) (test dupy=244) 231 K/CU MM 150-450 MEAN PLATELET VOLUME (BEAKER) (test sunx=320) 10.0 fL 9.4-12.3 NUCLEATED RED BLOOD CELLS (BEAKER) (test 0 /100 WBC 0-0 dapn=196) NEUTROPHILS RELATIVE PERCENT (BEAKER) (test 84 % uevy=180) LYMPHOCYTES RELATIVE PERCENT (BEAKER) (test 7 % cpxo=985) MONOCYTES RELATIVE PERCENT (BEAKER) (test 6 % cwye=270) EOSINOPHILS RELATIVE PERCENT (BEAKER) (test 2 % cvdj=622) BASOPHILS RELATIVE PERCENT (BEAKER) (test 1 % eobw=828) NEUTROPHILS ABSOLUTE COUNT (BEAKER) (test 10.17 K/ L 1.56-6.13 vwce=719) LYMPHOCYTES ABSOLUTE COUNT (BEAKER) (test 0.79 K/ L 1.18-3.74 cgnb=475) MONOCYTES ABSOLUTE COUNT (BEAKER) (test 0.73 K/ L 0.24-0.36 jyao=516) EOSINOPHILS ABSOLUTE COUNT (BEAKER) (test 0.24 K/ L 0.04-0.36 eino=203) BASOPHILS ABSOLUTE COUNT (BEAKER) (test 0.08 K/ L 0.01-0.08 ajlr=680) IMMATURE GRANULOCYTES-RELATIVE PERCENT (BEAKER) 0 % 0-1 (test amdd=3243) BASIC METABOLIC [id number] 01:43:00 Test Item Value Reference Range Comments SODIUM (BEAKER) (test 136 meq/L 136-145 njgw=053) POTASSIUM (BEAKER) (test 4.2 meq/L 3.5-5.1 ouvc=098) CHLORIDE (BEAKER) (test 99 meq/L 98-107 uncg=717) CO2 (BEAKER) (test 27 meq/L 22-29 sswy=772) BLOOD UREA NITROGEN 29 mg/dL 7-21 (BEAKER) (test duvv=244) CREATININE (BEAKER) (test 5.09 mg/dL 0.57-1.25 ktwm=048) GLUCOSE RANDOM (BEAKER) 110 mg/dL 70-105 (test zyxs=610) CALCIUM (BEAKER) (test 9.0 mg/dL 8.4-10.2 fopi=868) EGFR (BEAKER) (test 10 mL/min/1.73 sq m ESTIMATED GFR IS NOT trlq=0309) ACCURATE CREATININE CLEARANCE IN PREDICTING GLOMERULAR FILTRATION RATE. ESTIMATED GFR IS NOT APPLICABLE FOR DIALYSIS PATIENTS. [id number] 01:34:00 Test Item Value Reference Range Comments PARTIAL THROMBOPLASTIN TIME (BEAKER) (test 85.3 seconds 22.5-36.0 chhh=975) POCT-GLUCOSE [id number] 21:26:00 Test Item Value Reference Range Comments POC-GLUCOSE METER (BEAKER) 154 mg/dL 70-110 TESTED AT [facility] [address] [facility] (test jjnn=3203) [facility] [address] POCT-GLUCOSE [id number] 16:29:00 Test Item Value Reference Range Comments POC-GLUCOSE METER (BEAKER) 121 mg/dL 70-110 TESTED AT [address] (test gtct=3642) [facility] [address] POCT-GLUCOSE [id number] 16:26:00 Test Item Value Reference Range Comments POC-GLUCOSE METER (BEAKER) 119 mg/dL 70-110 TESTED AT [address] (test ljki=4030) [facility] [address] [id number] 08:47:00 Test Item Value Reference Range Comments PARTIAL THROMBOPLASTIN TIME (BEAKER) (test 85.2 seconds 22.5-36.0 xprn=263) BASIC METABOLIC [id number] 08:29:00 Test Item Value Reference Range Comments SODIUM (BEAKER) (test 133 meq/L 136-145 ejbi=098) POTASSIUM (BEAKER) (test 4.7 meq/L 3.5-5.1 lrvd=622) CHLORIDE (BEAKER) (test 93 meq/L 98-107 wrhr=853) CO2 (BEAKER) (test 24 meq/L 22-29 xamn=435) BLOOD UREA NITROGEN 64 mg/dL 7-21 (BEAKER) (test iytc=671) CREATININE (BEAKER) (test 8.39 mg/dL 0.57-1.25 fbyf=509) GLUCOSE RANDOM (BEAKER) 117 mg/dL 70-105 (test ggci=782) CALCIUM (BEAKER) (test 8.7 mg/dL 8.4-10.2 hsbo=086) EGFR (BEAKER) (test 6 mL/min/1.73 sq m ESTIMATED GFR IS NOT povl=0279) ACCURATE CREATININE CLEARANCE IN PREDICTING GLOMERULAR FILTRATION RATE. ESTIMATED GFR IS NOT APPLICABLE FOR DIALYSIS PATIENTS. CBC W/PLT COUNT & AUTO [id number] 08:25:00 Test Item Value Reference Range Comments WHITE BLOOD CELL COUNT (BEAKER) (test bbmh=557) 15.1 K/ L 3.5-10.5 RED BLOOD CELL COUNT (BEAKER) (test rxae=887) 2.84 M/ L 3.93-5.22 HEMOGLOBIN (BEAKER) (test yhpb=434) 7.8 GM/DL 11.2-15.7 HEMATOCRIT (BEAKER) (test rejw=291) 25.8 % 34.1-44.9 MEAN CORPUSCULAR VOLUME (BEAKER) (test fyzb=691) 90.8 fL 79.4-94.8 MEAN CORPUSCULAR HEMOGLOBIN (BEAKER) (test 27.5 pg 25.6-32.2 lscf=393) MEAN CORPUSCULAR HEMOGLOBIN CONC (BEAKER) (test 30.2 GM/DL 32.2-35.5 bpic=399) RED CELL DISTRIBUTION WIDTH (BEAKER) (test 14.7 % 11.7-14.4 mtlx=284) PLATELET COUNT (BEAKER) (test xguv=971) 258 K/CU MM 150-450 MEAN PLATELET VOLUME (BEAKER) (test vsoq=811) 10.4 fL 9.4-12.3 NUCLEATED RED BLOOD CELLS (BEAKER) (test 0 /100 WBC 0-0 lycw=915) NEUTROPHILS RELATIVE PERCENT (BEAKER) (test 83 % uuox=139) LYMPHOCYTES RELATIVE PERCENT (BEAKER) (test 8 % pfmd=739) MONOCYTES RELATIVE PERCENT (BEAKER) (test 6 % emwm=838) EOSINOPHILS RELATIVE PERCENT (BEAKER) (test 2 % cmgu=341) BASOPHILS RELATIVE PERCENT (BEAKER) (test 1 % gnlw=106) NEUTROPHILS ABSOLUTE COUNT (BEAKER) (test 12.58 K/ L 1.56-6.13 ckio=675) LYMPHOCYTES ABSOLUTE COUNT (BEAKER) (test 1.18 K/ L 1.18-3.74 mjqx=200) MONOCYTES ABSOLUTE COUNT (BEAKER) (test 0.87 K/ L 0.24-0.36 wmeg=593) EOSINOPHILS ABSOLUTE COUNT (BEAKER) (test 0.30 K/ L 0.04-0.36 shsz=595) BASOPHILS ABSOLUTE COUNT (BEAKER) (test 0.08 K/ L 0.01-0.08 jztp=068) IMMATURE GRANULOCYTES-RELATIVE PERCENT (BEAKER) 1 % 0-1 (test zzud=4643) [id number] 23:58:00 Test Item Value Reference Range Comments PARTIAL THROMBOPLASTIN TIME (BEAKER) (test 92.6 seconds 22.5-36.0 xpdp=987) POCT-GLUCOSE [id number] 20:54:00 Test Item Value Reference Range Comments POC-GLUCOSE METER (BEAKER) 151 mg/dL 70-110 TESTED AT [address] (test xxmp=9072) [facility] [address] POCT-GLUCOSE [id number] 17:04:00 Test Item Value Reference Range Comments POC-GLUCOSE METER (BEAKER) 158 mg/dL 70-110 TESTED AT [address] (test uape=0101) [facility] [address] [id number] 16:25:00 Test Item Value Reference Range Comments PARTIAL THROMBOPLASTIN TIME (BEAKER) (test 75.9 seconds 22.5-36.0 bcxn=871) POCT-GLUCOSE [id number] 12:34:00 Test Item Value Reference Range Comments POC-GLUCOSE METER (BEAKER) 183 mg/dL 70-110 TESTED AT [address] (test ezwm=2282) [facility] [address] POCT-GLUCOSE [id number] 12:00:00 Test Item Value Reference Range Comments POC-GLUCOSE METER (BEAKER) 175 mg/dL 70-110 TESTED AT [address] (test phwm=8835) [facility] [address] [id number] 10:17:00 Test Item Value Reference Range Comments PARTIAL THROMBOPLASTIN TIME (BEAKER) (test 32.1 seconds 22.5-36.0 bkdg=841) Prior to initiating heparinBASIC METABOLIC [id number] 08:20:00 Test Item Value Reference Range Comments SODIUM (BEAKER) (test 134 meq/L 136-145 vesf=362) POTASSIUM (BEAKER) (test 4.3 meq/L 3.5-5.1 ytol=138) CHLORIDE (BEAKER) (test 98 meq/L 98-107 qjcx=311) CO2 (BEAKER) (test 26 meq/L 22-29 veke=938) BLOOD UREA NITROGEN 48 mg/dL 7-21 (BEAKER) (test djbs=138) CREATININE (BEAKER) (test 6.48 mg/dL 0.57-1.25 ucif=372) GLUCOSE RANDOM (BEAKER) 124 mg/dL 70-105 (test trtb=710) CALCIUM (BEAKER) (test 9.2 mg/dL 8.4-10.2 pgvv=971) EGFR (BEAKER) (test 8 mL/min/1.73 sq m ESTIMATED GFR IS NOT ktyj=9175) ACCURATE CREATININE CLEARANCE IN PREDICTING GLOMERULAR FILTRATION RATE. ESTIMATED GFR IS NOT APPLICABLE FOR DIALYSIS PATIENTS. VANCOMYCIN LEVEL, [id number] 08:06:00 Test Item Value Reference Range Comments VANCOMYCIN RANDOM (BEAKER) (test dhfz=454) 28.6 ug/mL Reference Range: No NormalsCBC W/PLT COUNT & AUTO [id number] 07: 14:00 Test Item Value Reference Range Comments WHITE BLOOD CELL COUNT (BEAKER) (test qiic=531) 13.3 K/ L 3.5-10.5 RED BLOOD CELL COUNT (BEAKER) (test vnfj=134) 2.89 M/ L 3.93-5.22 HEMOGLOBIN (BEAKER) (test xcdv=053) 7.9 GM/DL 11.2-15.7 HEMATOCRIT (BEAKER) (test zqob=214) 26.4 % 34.1-44.9 MEAN CORPUSCULAR VOLUME (BEAKER) (test vojx=435) 91.3 fL 79.4-94.8 MEAN CORPUSCULAR HEMOGLOBIN (BEAKER) (test 27.3 pg 25.6-32.2 rbiq=000) MEAN CORPUSCULAR HEMOGLOBIN CONC (BEAKER) (test 29.9 GM/DL 32.2-35.5 nfmx=539) RED CELL DISTRIBUTION WIDTH (BEAKER) (test 15.2 % 11.7-14.4 yezn=301) PLATELET COUNT (BEAKER) (test mtzi=748) 242 K/CU MM 150-450 MEAN PLATELET VOLUME (BEAKER) (test eckq=740) 10.2 fL 9.4-12.3 NUCLEATED RED BLOOD CELLS (BEAKER) (test 0 /100 WBC 0-0 hhtr=570) NEUTROPHILS RELATIVE PERCENT (BEAKER) (test 82 % aozj=378) LYMPHOCYTES RELATIVE PERCENT (BEAKER) (test 8 % vgoc=454) MONOCYTES RELATIVE PERCENT (BEAKER) (test 6 % cwxr=344) EOSINOPHILS RELATIVE PERCENT (BEAKER) (test 2 % vyzq=549) BASOPHILS RELATIVE PERCENT (BEAKER) (test 1 % opsc=166) NEUTROPHILS ABSOLUTE COUNT (BEAKER) (test 10.92 K/ L 1.56-6.13 jxny=678) LYMPHOCYTES ABSOLUTE COUNT (BEAKER) (test 1.06 K/ L 1.18-3.74 dqzn=498) MONOCYTES ABSOLUTE COUNT (BEAKER) (test 0.84 K/ L 0.24-0.36 pgux=923) EOSINOPHILS ABSOLUTE COUNT (BEAKER) (test 0.31 K/ L 0.04-0.36 tamc=060) BASOPHILS ABSOLUTE COUNT (BEAKER) (test 0.08 K/ L 0.01-0.08 xjnr=238) IMMATURE GRANULOCYTES-RELATIVE PERCENT (BEAKER) 1 % 0-1 (test vvip=1714) POCT-GLUCOSE [id number] 21:22:00 Test Item Value Reference Range Comments POC-GLUCOSE METER (BEAKER) 209 mg/dL 70-110 TESTED AT [address] (test fslw=6142) [place] [address] POCT-GLUCOSE [id number] 17:40:00 Test Item Value Reference Range Comments POC-GLUCOSE METER (BEAKER) 213 mg/dL 70-110 TESTED AT [address] (test ywoy=4852) [place] [address] POCT-GLUCOSE [id number] 12:28:00 Test Item Value Reference Range Comments POC-GLUCOSE METER (BEAKER) 298 mg/dL 70-110 TESTED AT [address] (test whhn=6968) [place] [address] BLOOD [id number] 11:01:00 Test Item Value Reference Range Comments CULTURE (BEAKER) (test qyzo=5645) No growth in 5 days POCT-GLUCOSE [id number] 08:43:00 Test Item Value Reference Range Comments POC-GLUCOSE METER (BEAKER) 147 mg/dL 70-110 TESTED AT [address] (test pxyb=7697) [place] [address] CBC W/PLT COUNT & AUTO [id number] 07:17:00 Test Item Value Reference Range Comments WHITE BLOOD CELL COUNT (BEAKER) (test rjxz=075) 12.1 K/ L 3.5-10.5 RED BLOOD CELL COUNT (BEAKER) (test emig=411) 2.54 M/ L 3.93-5.22 HEMOGLOBIN (BEAKER) (test mzfl=168) 6.9 GM/DL 11.2-15.7 HEMATOCRIT (BEAKER) (test xbty=577) 24.0 % 34.1-44.9 MEAN CORPUSCULAR VOLUME (BEAKER) (test dyxi=196) 94.5 fL 79.4-94.8 MEAN CORPUSCULAR HEMOGLOBIN (BEAKER) (test 27.2 pg 25.6-32.2 ebzy=191) MEAN CORPUSCULAR HEMOGLOBIN CONC (BEAKER) (test 28.8 GM/DL 32.2-35.5 xjrs=538) RED CELL DISTRIBUTION WIDTH (BEAKER) (test 14.9 % 11.7-14.4 dhyh=404) PLATELET COUNT (BEAKER) (test grto=716) 253 K/CU MM 150-450 MEAN PLATELET VOLUME (BEAKER) (test kmln=447) 10.0 fL 9.4-12.3 NUCLEATED RED BLOOD CELLS (BEAKER) (test 0 /100 WBC 0-0 pdoa=158) NEUTROPHILS RELATIVE PERCENT (BEAKER) (test 83 % ccoj=618) LYMPHOCYTES RELATIVE PERCENT (BEAKER) (test 7 % qsvt=620) MONOCYTES RELATIVE PERCENT (BEAKER) (test 6 % aldd=725) EOSINOPHILS RELATIVE PERCENT (BEAKER) (test 3 % dbsw=470) BASOPHILS RELATIVE PERCENT (BEAKER) (test 1 % fuio=054) NEUTROPHILS ABSOLUTE COUNT (BEAKER) (test 10.04 K/ L 1.56-6.13 oxou=607) LYMPHOCYTES ABSOLUTE COUNT (BEAKER) (test 0.88 K/ L 1.18-3.74 mosd=569) MONOCYTES ABSOLUTE COUNT (BEAKER) (test 0.66 K/ L 0.24-0.36 wmnv=559) EOSINOPHILS ABSOLUTE COUNT (BEAKER) (test 0.34 K/ L 0.04-0.36 ltwk=265) BASOPHILS ABSOLUTE COUNT (BEAKER) (test 0.09 K/ L 0.01-0.08 yahg=785) IMMATURE GRANULOCYTES-RELATIVE PERCENT (BEAKER) 1 % 0-1 (test bemo=2331) BASIC METABOLIC [id number] 07:02:00 Test Item Value Reference Range Comments SODIUM (BEAKER) (test 134 meq/L 136-145 bzrx=229) POTASSIUM (BEAKER) (test 4.2 meq/L 3.5-5.1 Specimen slightly jcmn=194) hemolyzed CHLORIDE (BEAKER) (test 99 meq/L 98-107 fulx=699) CO2 (BEAKER) (test 25 meq/L 22-29 akof=419) BLOOD UREA NITROGEN 29 mg/dL 7-21 (BEAKER) (test qecn=441) CREATININE (BEAKER) (test 4.76 mg/dL 0.57-1.25 Specimen slightly defb=879) hemolyzed GLUCOSE RANDOM (BEAKER) 116 mg/dL 70-105 (test xsdu=641) CALCIUM (BEAKER) (test 8.6 mg/dL 8.4-10.2 smjj=217) EGFR (BEAKER) (test 11 mL/min/1.73 sq m ESTIMATED GFR IS NOT axev=1616) ACCURATE CREATININE CLEARANCE IN PREDICTING GLOMERULAR FILTRATION RATE. ESTIMATED GFR IS NOT APPLICABLE FOR DIALYSIS PATIENTS. BLOOD [id number] 11:01:00 Test Item Value Reference Range Comments CULTURE (BEAKER) (test qkqv=2645) No growth in 5 days MR, EXTREMITY, LOWER, JOINT, WITHOUT CONTRAST, [id number] 09:05:00Reason for exam:->For hip painFINAL REPORT Indication: [...] MDReport Verified Date/Time: 12/02/2018 09:05:25 Reading Location: [facility] B1 [id number] Ortho Consult Reading Room Electronically signed by: JAYSON SHORT M.D. on 2018 09:05 AMHEMOGLOBIN AND [id number] 08:39:00 Test Item Value Reference Range Comments HEMOGLOBIN (BEAKER) (test refs=691) 7.2 GM/DL 11.2-15.7 HEMATOCRIT (BEAKER) (test lbrn=033) 24.1 % 34.1-44.9 POCT-GLUCOSE [id number] 07:54:00 Test Item Value Reference Range Comments POC-GLUCOSE METER (BEAKER) 186 mg/dL 70-110 TESTED AT [facility] [address] [facility] (test zhoh=1968) [facility] [address] CBC W/PLT COUNT & AUTO [id number] 07:22:00 Test Item Value Reference Range Comments WHITE BLOOD CELL COUNT (BEAKER) (test plya=553) 13.3 K/ L 3.5-10.5 RED BLOOD CELL COUNT (BEAKER) (test zhtw=979) 2.47 M/ L 3.93-5.22 HEMOGLOBIN (BEAKER) (test mwtm=302) 6.8 GM/DL 11.2-15.7 HEMATOCRIT (BEAKER) (test iiaz=167) 23.2 % 34.1-44.9 MEAN CORPUSCULAR VOLUME (BEAKER) (test hhkr=416) 93.9 fL 79.4-94.8 MEAN CORPUSCULAR HEMOGLOBIN (BEAKER) (test 27.5 pg 25.6-32.2 adaz=373) MEAN CORPUSCULAR HEMOGLOBIN CONC (BEAKER) (test 29.3 GM/DL 32.2-35.5 dsrr=719) RED CELL DISTRIBUTION WIDTH (BEAKER) (test 15.2 % 11.7-14.4 ekry=684) PLATELET COUNT (BEAKER) (test ppys=590) 304 K/CU MM 150-450 MEAN PLATELET VOLUME (BEAKER) (test eicl=459) 9.9 fL 9.4-12.3 NUCLEATED RED BLOOD CELLS (BEAKER) (test 0 /100 WBC 0-0 thrc=258) NEUTROPHILS RELATIVE PERCENT (BEAKER) (test 84 % bsej=300) LYMPHOCYTES RELATIVE PERCENT (BEAKER) (test 7 % vpih=039) MONOCYTES RELATIVE PERCENT (BEAKER) (test 5 % cbvx=246) EOSINOPHILS RELATIVE PERCENT (BEAKER) (test 3 % kztv=091) BASOPHILS RELATIVE PERCENT (BEAKER) (test 0 % luyh=169) NEUTROPHILS ABSOLUTE COUNT (BEAKER) (test 11.17 K/ L 1.56-6.13 hkco=243) LYMPHOCYTES ABSOLUTE COUNT (BEAKER) (test 0.95 K/ L 1.18-3.74 zwxs=246) MONOCYTES ABSOLUTE COUNT (BEAKER) (test 0.70 K/ L 0.24-0.36 vhkc=143) EOSINOPHILS ABSOLUTE COUNT (BEAKER) (test 0.37 K/ L 0.04-0.36 ixqn=577) BASOPHILS ABSOLUTE COUNT (BEAKER) (test 0.04 K/ L 0.01-0.08 dpts=626) IMMATURE GRANULOCYTES-RELATIVE PERCENT (BEAKER) 1 % 0-1 (test gxhi=1048) POCT-GLUCOSE [id number] 07:10:00 Test Item Value Reference Range Comments POC-GLUCOSE METER (BEAKER) 177 mg/dL 70-110 TESTED AT [facility] [address] [facility] (test evmq=6641) [facility] [address] BASIC METABOLIC [id number] 06:52:00 Test Item Value Reference Range Comments SODIUM (BEAKER) (test 137 meq/L 136-145 ailt=290) POTASSIUM (BEAKER) (test 4.0 meq/L 3.5-5.1 ovyq=864) CHLORIDE (BEAKER) (test 97 meq/L 98-107 rwrk=317) CO2 (BEAKER) (test 30 meq/L 22-29 pqkd=160) BLOOD UREA NITROGEN 46 mg/dL 7-21 (BEAKER) (test aczn=651) CREATININE (BEAKER) (test 6.47 mg/dL 0.57-1.25 vdsk=736) GLUCOSE RANDOM (BEAKER) 148 mg/dL 70-105 (test srxw=009) CALCIUM (BEAKER) (test 9.1 mg/dL 8.4-10.2 bdyd=322) EGFR (BEAKER) (test 8 mL/min/1.73 sq m ESTIMATED GFR IS NOT kpyt=9561) ACCURATE CREATININE CLEARANCE IN PREDICTING GLOMERULAR FILTRATION RATE. ESTIMATED GFR IS NOT APPLICABLE FOR DIALYSIS PATIENTS. VANCOMYCIN LEVEL, [id number] 06:43:00 Test Item Value Reference Range Comments VANCOMYCIN RANDOM (BEAKER) (test yddt=232) 19.0 ug/mL Reference Range: No NormalsPT/[id number] 06:25:00 Test Item Value Reference Range Comments PROTIME (BEAKER) (test wtbm=121) 14.1 seconds 11.7-14.7 INR (BEAKER) (test lmys=819) 1.1 <=5.9 PARTIAL THROMBOPLASTIN TIME (BEAKER) (test 39.6 seconds 22.5-36.0 rwix=513) RECOMMENDED COUMADIN/WARFARIN INR THERAPY RANGESSTANDARD DOSE: 2.0 - 3.0 Includes: PROPHYLAXIS forvenous thrombosis, systemic embolization; TREATMENT for venous thrombosis and/or pulmonary embolus.HIGH RISK: Target INR is 2.5-3.5 for patients with mechanical heart valves.POCT-GLUCOSE [id number] 23:37:00 Test Item Value Reference Range Comments POC-GLUCOSE METER (BEAKER) 258 mg/dL 70-110 TESTED AT [address] (test doag=5284) [place] [address] POCT-GLUCOSE [id number] 12:31:00 Test Item Value Reference Range Comments POC-GLUCOSE METER (BEAKER) 184 mg/dL 70-110 TESTED AT [address] (test bbuo=4472) [place] [address] BASIC METABOLIC [id number] 12:27:00 Test Item Value Reference Range Comments SODIUM (BEAKER) (test 136 meq/L 136-145 euld=611) POTASSIUM (BEAKER) (test 4.0 meq/L 3.5-5.1 hwbf=189) CHLORIDE (BEAKER) (test 99 meq/L 98-107 orrk=303) CO2 (BEAKER) (test 26 meq/L 22-29 rhqd=225) BLOOD UREA NITROGEN 29 mg/dL 7-21 (BEAKER) (test ayuk=667) CREATININE (BEAKER) (test 4.92 mg/dL 0.57-1.25 dsbs=430) GLUCOSE RANDOM (BEAKER) 129 mg/dL 70-105 (test cxas=206) CALCIUM (BEAKER) (test 9.0 mg/dL 8.4-10.2 cxrb=560) EGFR (BEAKER) (test 11 mL/min/1.73 sq m ESTIMATED GFR IS NOT hlgo=0728) ACCURATE CREATININE CLEARANCE IN PREDICTING GLOMERULAR FILTRATION RATE. ESTIMATED GFR IS NOT APPLICABLE FOR DIALYSIS PATIENTS. CBC W/PLT COUNT & AUTO [id number] 12:20:00 Test Item Value Reference Range Comments WHITE BLOOD CELL COUNT (BEAKER) (test nxac=080) 14.6 K/ L 3.5-10.5 RED BLOOD CELL COUNT (BEAKER) (test mjyz=228) 2.69 M/ L 3.93-5.22 HEMOGLOBIN (BEAKER) (test gcad=034) 7.4 GM/DL 11.2-15.7 HEMATOCRIT (BEAKER) (test rvjq=845) 25.1 % 34.1-44.9 MEAN CORPUSCULAR VOLUME (BEAKER) (test ksoi=223) 93.3 fL 79.4-94.8 MEAN CORPUSCULAR HEMOGLOBIN (BEAKER) (test 27.5 pg 25.6-32.2 qung=395) MEAN CORPUSCULAR HEMOGLOBIN CONC (BEAKER) (test 29.5 GM/DL 32.2-35.5 sndy=507) RED CELL DISTRIBUTION WIDTH (BEAKER) (test 15.5 % 11.7-14.4 nqvp=494) PLATELET COUNT (BEAKER) (test qjyd=836) 295 K/CU MM 150-450 MEAN PLATELET VOLUME (BEAKER) (test hpjl=823) 9.8 fL 9.4-12.3 NUCLEATED RED BLOOD CELLS (BEAKER) (test 0 /100 WBC 0-0 dvxj=315) NEUTROPHILS RELATIVE PERCENT (BEAKER) (test 83 % oyyd=985) LYMPHOCYTES RELATIVE PERCENT (BEAKER) (test 8 % hzts=030) MONOCYTES RELATIVE PERCENT (BEAKER) (test 6 % fwgn=863) EOSINOPHILS RELATIVE PERCENT (BEAKER) (test 2 % scak=008) BASOPHILS RELATIVE PERCENT (BEAKER) (test 1 % isqf=649) NEUTROPHILS ABSOLUTE COUNT (BEAKER) (test 12.12 K/ L 1.56-6.13 nsog=024) LYMPHOCYTES ABSOLUTE COUNT (BEAKER) (test 1.19 K/ L 1.18-3.74 esdy=032) MONOCYTES ABSOLUTE COUNT (BEAKER) (test 0.81 K/ L 0.24-0.36 nxjj=769) EOSINOPHILS ABSOLUTE COUNT (BEAKER) (test 0.31 K/ L 0.04-0.36 nqoy=814) BASOPHILS ABSOLUTE COUNT (BEAKER) (test 0.07 K/ L 0.01-0.08 npda=350) IMMATURE GRANULOCYTES-RELATIVE PERCENT (BEAKER) 1 % 0-1 (test zhwv=7003) RAD, HIP, 1 VIEW, [id number] 11:34:00Reason for exam:->R hip painShould this be [...] MDReport Verified Date/Time: 2018 11:34:51 Reading Location: [facility] Reading Room POCT- GLUCOSE [id number] 08:01:00 Test Item Value Reference Range Comments POC-GLUCOSE METER (BERUSSELL) 189 mg/dL 70-110 TESTED AT [facility] [address] [facility] (test xrfk=8871) [facility] [address] VANCOMYCIN LEVEL, [id number] 06:44:00 Test Item Value Reference Range Comments VANCOMYCIN RANDOM (BEAKER) (test xkbz=782) 19.8 ug/mL Reference Range: No NormalsGENTAMICIN LEVEL, [id number] 21:58:00 Test Item Value Reference Range Comments GENTAMICIN TROUGH (BEAKER) (test jkmi=845) 1.5 ug/mL 0.5-1.0 Dosing Target Level (mcg/mL)1-1.5 mg/kg q 8-12 HR 0.5- 1.03-7 mg/kg q 24 HR <0.5Before gent dosePOCT-GLUCOSE [id number] 20:39:00 Test Item Value Reference Range Comments POC-GLUCOSE METER (BEAKER) 229 mg/dL 70-110 TESTED AT [address] (test vhox=8620) [facility] [address] POCT-GLUCOSE [id number] 20:02:00 Test Item Value Reference Range Comments POC-GLUCOSE METER (BEAKER) 251 mg/dL 70-110 TESTED AT [address] (test cakw=8367) [facility] [address] POCT-GLUCOSE [id number] 13:49:00 Test Item Value Reference Range Comments POC-GLUCOSE METER (BEAKER) 211 mg/dL 70-110 TESTED AT [address] (test bayz=6523) [place] [id number] POCT-GLUCOSE [id number] 08:02:00 Test Item Value Reference Range Comments POC-GLUCOSE METER (BEAKER) 182 mg/dL 70-110 TESTED AT [address] (test kzwx=0040) [facility] [address] BASIC METABOLIC [id number] 07:28:00 Test Item Value Reference Range Comments SODIUM (BEAKER) (test 138 meq/L 136-145 fhoq=920) POTASSIUM (BEAKER) (test 4.1 meq/L 3.5-5.1 xvgx=005) CHLORIDE (BEAKER) (test 101 meq/L 98-107 kuyp=676) CO2 (BEAKER) (test 26 meq/L 22-29 wkvk=351) BLOOD UREA NITROGEN 42 mg/dL 7-21 (BEAKER) (test cjkc=989) CREATININE (BEAKER) (test 6.85 mg/dL 0.57-1.25 svzr=689) GLUCOSE RANDOM (BEAKER) 138 mg/dL 70-105 (test bidi=481) CALCIUM (BEAKER) (test 8.9 mg/dL 8.4-10.2 zobp=277) EGFR (BEAKER) (test 7 mL/min/1.73 sq m ESTIMATED GFR IS NOT gxuh=6389) ACCURATE CREATININE CLEARANCE IN PREDICTING GLOMERULAR FILTRATION RATE. ESTIMATED GFR IS NOT APPLICABLE FOR DIALYSIS PATIENTS. VANCOMYCIN LEVEL, [id number] 07:07:00 Test Item Value Reference Range Comments VANCOMYCIN RANDOM (BEAKER) (test myoq=965) 25.1 ug/mL Reference Range: No NormalsCBC W/PLT COUNT & AUTO [id number] 07: 02:00 Test Item Value Reference Range Comments WHITE BLOOD CELL COUNT (BEAKER) (test mpkw=491) 15.1 K/ L 3.5-10.5 RED BLOOD CELL COUNT (BEAKER) (test sujr=958) 2.67 M/ L 3.93-5.22 HEMOGLOBIN (BEAKER) (test pyap=716) 7.4 GM/DL 11.2-15.7 HEMATOCRIT (BEAKER) (test jxxa=296) 24.8 % 34.1-44.9 MEAN CORPUSCULAR VOLUME (BEAKER) (test wljp=742) 92.9 fL 79.4-94.8 MEAN CORPUSCULAR HEMOGLOBIN (BEAKER) (test 27.7 pg 25.6-32.2 mlyy=317) MEAN CORPUSCULAR HEMOGLOBIN CONC (BEAKER) (test 29.8 GM/DL 32.2-35.5 gmno=423) RED CELL DISTRIBUTION WIDTH (BEAKER) (test 15.9 % 11.7-14.4 cplz=926) PLATELET COUNT (BEAKER) (test xzdi=234) 303 K/CU MM 150-450 MEAN PLATELET VOLUME (BEAKER) (test zwst=135) 10.1 fL 9.4-12.3 NUCLEATED RED BLOOD CELLS (BEAKER) (test 0 /100 WBC 0-0 trng=201) NEUTROPHILS RELATIVE PERCENT (BEAKER) (test 85 % vmbg=157) LYMPHOCYTES RELATIVE PERCENT (BEAKER) (test 6 % bmkh=348) MONOCYTES RELATIVE PERCENT (BEAKER) (test 6 % rkye=802) EOSINOPHILS RELATIVE PERCENT (BEAKER) (test 2 % ejgf=298) BASOPHILS RELATIVE PERCENT (BEAKER) (test 0 % soml=333) NEUTROPHILS ABSOLUTE COUNT (BEAKER) (test 12.90 K/ L 1.56-6.13 unrd=860) LYMPHOCYTES ABSOLUTE COUNT (BEAKER) (test 0.85 K/ L 1.18-3.74 cjdf=294) MONOCYTES ABSOLUTE COUNT (BEAKER) (test 0.97 K/ L 0.24-0.36 xzfq=749) EOSINOPHILS ABSOLUTE COUNT (BEAKER) (test 0.25 K/ L 0.04-0.36 ixmz=713) BASOPHILS ABSOLUTE COUNT (BEAKER) (test 0.03 K/ L 0.01-0.08 nonw=034) IMMATURE GRANULOCYTES-RELATIVE PERCENT (BEAKER) 1 % 0-1 (test brkf=5339) POCT-GLUCOSE [id number] 21:24:00 Test Item Value Reference Range Comments POC-GLUCOSE METER (BEAKER) 189 mg/dL 70-110 TESTED AT [address] (test sdns=2318) [place] [id number] POCT-GLUCOSE [id number] 17:50:00 Test Item Value Reference Range Comments POC-GLUCOSE METER (BEAKER) 215 mg/dL 70-110 TESTED AT [address] (test gpkm=7358) [place] [id number] POCT-GLUCOSE [id number] 13:23:00 Test Item Value Reference Range Comments POC-GLUCOSE METER (BEAKER) 270 mg/dL 70-110 TESTED AT [address] (test wimt=7048) [place] [id number] POCT-GLUCOSE [id number] 08:37:00 Test Item Value Reference Range Comments POC-GLUCOSE METER (BEAKER) 138 mg/dL 70-110 TESTED AT [address] (test oztj=0649) [facility] [address] BASIC METABOLIC [id number] 06:54:00 Test Item Value Reference Range Comments SODIUM (BEAKER) (test 138 meq/L 136-145 afjz=484) POTASSIUM (BEAKER) (test 3.9 meq/L 3.5-5.1 lrtf=155) CHLORIDE (BEAKER) (test 100 meq/L 98-107 yypr=807) CO2 (BEAKER) (test 26 meq/L 22-29 htgy=618) BLOOD UREA NITROGEN 27 mg/dL 7-21 (BEAKER) (test bnmd=771) CREATININE (BEAKER) (test 5.01 mg/dL 0.57-1.25 vvlf=897) GLUCOSE RANDOM (BEAKER) 117 mg/dL 70-105 (test lswv=277) CALCIUM (BEAKER) (test 8.6 mg/dL 8.4-10.2 cisy=458) EGFR (BEAKER) (test 11 mL/min/1.73 sq m ESTIMATED GFR IS NOT vvqe=1650) ACCURATE CREATININE CLEARANCE IN PREDICTING GLOMERULAR FILTRATION RATE. ESTIMATED GFR IS NOT APPLICABLE FOR DIALYSIS PATIENTS. [id number] 06:53:00 Test Item Value Reference Range Comments PHOSPHORUS (BEAKER) (test tjuj=249) 4.1 mg/dL 2.3-4.7 [id number] 06:53:00 Test Item Value Reference Range Comments MAGNESIUM (BEAKER) (test rorc=063) 1.9 mg/dL 1.6-2.6 VANCOMYCIN LEVEL, [id number] 06:51:00 Test Item Value Reference Range Comments VANCOMYCIN RANDOM (BEAKER) (test qpex=114) 27.5 ug/mL Reference Range: No NormalsCBC W/PLT COUNT & AUTO [id number] 06: 30:00 Test Item Value Reference Range Comments WHITE BLOOD CELL COUNT (BEAKER) (test jaol=006) 14.6 K/ L 3.5-10.5 RED BLOOD CELL COUNT (BEAKER) (test efad=967) 2.82 M/ L 3.93-5.22 HEMOGLOBIN (BEAKER) (test dhav=341) 7.8 GM/DL 11.2-15.7 HEMATOCRIT (BEAKER) (test rzlq=965) 25.6 % 34.1-44.9 MEAN CORPUSCULAR VOLUME (BEAKER) (test mihh=745) 90.8 fL 79.4-94.8 MEAN CORPUSCULAR HEMOGLOBIN (BEAKER) (test 27.7 pg 25.6-32.2 ptub=081) MEAN CORPUSCULAR HEMOGLOBIN CONC (BEAKER) (test 30.5 GM/DL 32.2-35.5 qevw=435) RED CELL DISTRIBUTION WIDTH (BEAKER) (test 15.8 % 11.7-14.4 stki=127) PLATELET COUNT (BEAKER) (test prdz=403) 266 K/CU MM 150-450 MEAN PLATELET VOLUME (BEAKER) (test qxub=746) 10.2 fL 9.4-12.3 NUCLEATED RED BLOOD CELLS (BEAKER) (test 0 /100 WBC 0-0 dfoq=895) NEUTROPHILS RELATIVE PERCENT (BEAKER) (test 82 % egyy=867) LYMPHOCYTES RELATIVE PERCENT (BEAKER) (test 7 % uksr=610) MONOCYTES RELATIVE PERCENT (BEAKER) (test 9 % scbq=636) EOSINOPHILS RELATIVE PERCENT (BEAKER) (test 1 % irur=518) BASOPHILS RELATIVE PERCENT (BEAKER) (test 0 % kuom=901) NEUTROPHILS ABSOLUTE COUNT (BEAKER) (test 11.86 K/ L 1.56-6.13 vwxu=610) LYMPHOCYTES ABSOLUTE COUNT (BEAKER) (test 1.00 K/ L 1.18-3.74 aefm=204) MONOCYTES ABSOLUTE COUNT (BEAKER) (test 1.24 K/ L 0.24-0.36 aooe=027) EOSINOPHILS ABSOLUTE COUNT (BEAKER) (test 0.21 K/ L 0.04-0.36 vwau=271) BASOPHILS ABSOLUTE COUNT (BEAKER) (test 0.04 K/ L 0.01-0.08 ijoo=344) IMMATURE GRANULOCYTES-RELATIVE PERCENT (BEAKER) 1 % 0-1 (test tszu=7967) POCT-GLUCOSE [id number] 00:41:00 Test Item Value Reference Range Comments POC-GLUCOSE METER (BEAKER) 139 mg/dL 70-110 TESTED AT [address] (test kwsn=2033) [place] [address] HEMOGLOBIN AND [id number] 23:23:00 Test Item Value Reference Range Comments HEMOGLOBIN (BEAKER) (test jnen=084) 9.0 GM/DL 11.2-15.7 HEMATOCRIT (BEAKER) (test bote=860) 29.7 % 34.1-44.9 Check after HD after she receives her blood transfusionPOCT-GLUCOSE [id number] 17:53:00 Test Item Value Reference Range Comments POC-GLUCOSE METER (BEAKER) 177 mg/dL 70-110 TESTED AT [address] (test kdws=4895) [place] [address] POCT-GLUCOSE [id number] 13:03:00 Test Item Value Reference Range Comments POC-GLUCOSE METER (BEAKER) 171 mg/dL 70-110 TESTED AT [address] (test rpve=1808) [place] [address] BLOOD [id number] 09:44:00 Test Item Value Reference Range Comments CULTURE (BEAKER) (test METHICILLIN RESISTANT From Aerobic And jkhk=7074) STAPHYLOCOCCUS AUREUS Anaerobic Bottles Methicillin resistant Staphylococcus aureus Clindamycin (test code=10) Erythromycin (test code=4) Linezolid (test code=40) Nitrofurantoin (test code=23) Oxacillin (test code=14) Rifampin (test code=43) Tetracycline (test code=2) Trimethoprim + Sulfamethoxazole (test code=47) Vancomycin (test code=13) CULTURE (BEAKER) (test From Aerobic Bottle wtak=1191) Only Methicillin resistant Staphylococcus aureusSame as first isolate. GRAM STAIN RESULT From aerobic and (BEAKER) (test zceu=3595) anaerobic bottles: gram positive cocci in clusters CT, [id number] 09:28:00FINAL REPORT ABDOMINAL AND PELVIS CT DATED [...] Verified Date/Time: 2017 09:28:06 Reading Location: [address] Body Reading Room PROTHROMBIN [id number] 09:18:00 Test Item Value Reference Range Comments PROTIME (BEAKER) (test mgxt=415) 14.5 seconds 11.7-14.7 INR (BEAKER) (test tmfk=896) 1.1 <=5.9 RECOMMENDED COUMADIN/WARFARIN INR THERAPY RANGESSTANDARD DOSE: 2.0 - 3.0 Includes: PROPHYLAXIS forvenous thrombosis, systemic embolization; TREATMENT for venous thrombosis and/or pulmonary embolus.HIGH RISK: Target INR is 2.5-3.5 for patients with mechanical heart valves.HEMOGLOBIN AND [id number] 09 :08:00 Test Item Value Reference Range Comments HEMOGLOBIN (BEAKER) (test maqh=812) 7.0 GM/DL 11.2-15.7 HEMATOCRIT (BEAKER) (test uzsv=594) 23.2 % 34.1-44.9 BASIC METABOLIC [id number] 06:55:00 Test Item Value Reference Range Comments SODIUM (BEAKER) (test 137 meq/L 136-145 jlbl=262) POTASSIUM (BEAKER) (test 4.4 meq/L 3.5-5.1 idpv=508) CHLORIDE (BEAKER) (test 101 meq/L 98-107 mhfe=282) CO2 (BEAKER) (test 23 meq/L 22-29 kmbw=292) BLOOD UREA NITROGEN 56 mg/dL 7-21 (BEAKER) (test skqa=547) CREATININE (BEAKER) (test 8.16 mg/dL 0.57-1.25 amzw=125) GLUCOSE RANDOM (BEAKER) 131 mg/dL 70-105 (test dlbo=495) CALCIUM (BEAKER) (test 8.4 mg/dL 8.4-10.2 yhkt=640) EGFR (BEAKER) (test 6 mL/min/1.73 sq m ESTIMATED GFR IS NOT kekj=1062) ACCURATE CREATININE CLEARANCE IN PREDICTING GLOMERULAR FILTRATION RATE. ESTIMATED GFR IS NOT APPLICABLE FOR DIALYSIS PATIENTS. [id number] 06:40:00 Test Item Value Reference Range Comments PARTIAL THROMBOPLASTIN TIME (BEAKER) (test 91.0 seconds 22.5-36.0 jgdq=165) CBC W/PLT COUNT & AUTO [id number] 06:33:00 Test Item Value Reference Range Comments WHITE BLOOD CELL COUNT (BEAKER) (test gdkp=218) 16.6 K/ L 3.5-10.5 RED BLOOD CELL COUNT (BEAKER) (test xzbj=555) 2.31 M/ L 3.93-5.22 HEMOGLOBIN (BEAKER) (test pwcz=322) 6.4 GM/DL 11.2-15.7 HEMATOCRIT (BEAKER) (test atcc=045) 21.3 % 34.1-44.9 MEAN CORPUSCULAR VOLUME (BEAKER) (test kcmb=791) 92.2 fL 79.4-94.8 MEAN CORPUSCULAR HEMOGLOBIN (BEAKER) (test 27.7 pg 25.6-32.2 hgqx=982) MEAN CORPUSCULAR HEMOGLOBIN CONC (BEAKER) (test 30.0 GM/DL 32.2-35.5 rlsz=219) RED CELL DISTRIBUTION WIDTH (BEAKER) (test 15.0 % 11.7-14.4 iovc=082) PLATELET COUNT (BEAKER) (test pbsd=798) 276 K/CU MM 150-450 MEAN PLATELET VOLUME (BEAKER) (test xmpd=319) 10.4 fL 9.4-12.3 NUCLEATED RED BLOOD CELLS (BEAKER) (test 0 /100 WBC 0-0 iwbj=584) NEUTROPHILS RELATIVE PERCENT (BEAKER) (test 82 % refz=687) LYMPHOCYTES RELATIVE PERCENT (BEAKER) (test 7 % zgrv=821) MONOCYTES RELATIVE PERCENT (BEAKER) (test 8 % pmfz=352) EOSINOPHILS RELATIVE PERCENT (BEAKER) (test 1 % avoh=722) BASOPHILS RELATIVE PERCENT (BEAKER) (test 0 % nanw=235) NEUTROPHILS ABSOLUTE COUNT (BEAKER) (test 13.67 K/ L 1.56-6.13 owhx=400) LYMPHOCYTES ABSOLUTE COUNT (BEAKER) (test 1.14 K/ L 1.18-3.74 hipk=461) MONOCYTES ABSOLUTE COUNT (BEAKER) (test 1.38 K/ L 0.24-0.36 uolx=477) EOSINOPHILS ABSOLUTE COUNT (BEAKER) (test 0.08 K/ L 0.04-0.36 vros=346) BASOPHILS ABSOLUTE COUNT (BEAKER) (test 0.06 K/ L 0.01-0.08 hgdf=390) IMMATURE GRANULOCYTES-RELATIVE PERCENT (BEAKER) 2 % 0-1 (test xift=5287) POCT-GLUCOSE [id number] 21:47:00 Test Item Value Reference Range Comments POC-GLUCOSE METER (BEAKER) 173 mg/dL 70-110 TESTED AT [address] (test ezbj=4554) [place] [address] [id number] 18:27:00 Test Item Value Reference Range Comments PARTIAL THROMBOPLASTIN TIME (BEAKER) (test 78.5 seconds 22.5-36.0 vaed=541) POCT-GLUCOSE [id number] 13:23:00 Test Item Value Reference Range Comments POC-GLUCOSE METER (BEAKER) 176 mg/dL 70-110 TESTED AT [address] (test eotq=5681) [place] [address] [id number] 11:24:00 Test Item Value Reference Range Comments PARTIAL THROMBOPLASTIN TIME (BEAKER) (test 83.7 seconds 22.5-36.0 yccb=238) POCT-GLUCOSE [id number] 08:13:00 Test Item Value Reference Range Comments POC-GLUCOSE METER (BEAKER) 189 mg/dL 70-110 TESTED AT [address] (test xcml=1559) [place] [address] BASIC METABOLIC [id number] 06:03:00 Test Item Value Reference Range Comments SODIUM (BEAKER) (test 135 meq/L 136-145 nfps=531) POTASSIUM (BEAKER) (test 3.9 meq/L 3.5-5.1 chpc=770) CHLORIDE (BEAKER) (test 100 meq/L 98-107 hntv=137) CO2 (BEAKER) (test 23 meq/L 22-29 quuw=347) BLOOD UREA NITROGEN 41 mg/dL 7-21 (BEAKER) (test edbo=763) CREATININE (BEAKER) (test 6.33 mg/dL 0.57-1.25 nohb=384) GLUCOSE RANDOM (BEAKER) 154 mg/dL 70-105 (test shhh=884) CALCIUM (BEAKER) (test 8.8 mg/dL 8.4-10.2 wine=659) EGFR (BEAKER) (test 8 mL/min/1.73 sq m ESTIMATED GFR IS NOT xpdt=1047) ACCURATE CREATININE CLEARANCE IN PREDICTING GLOMERULAR FILTRATION RATE. ESTIMATED GFR IS NOT APPLICABLE FOR DIALYSIS PATIENTS. VANCOMYCIN LEVEL, [id number] 05:41:00 Test Item Value Reference Range Comments VANCOMYCIN RANDOM (BEAKER) (test fepg=663) 34.9 ug/mL Reference Range: No NormalsCBC W/PLT COUNT & AUTO [id number] 05: 36:00 Test Item Value Reference Range Comments WHITE BLOOD CELL COUNT (BEAKER) (test pivc=199) 15.0 K/ L 3.5-10.5 RED BLOOD CELL COUNT (BEAKER) (test hwkv=894) 2.79 M/ L 3.93-5.22 HEMOGLOBIN (BEAKER) (test sexx=863) 7.6 GM/DL 11.2-15.7 HEMATOCRIT (BEAKER) (test ipqv=882) 25.8 % 34.1-44.9 MEAN CORPUSCULAR VOLUME (BEAKER) (test jujm=909) 92.5 fL 79.4-94.8 MEAN CORPUSCULAR HEMOGLOBIN (BEAKER) (test 27.2 pg 25.6-32.2 iqgg=904) MEAN CORPUSCULAR HEMOGLOBIN CONC (BEAKER) (test 29.5 GM/DL 32.2-35.5 wbsn=429) RED CELL DISTRIBUTION WIDTH (BEAKER) (test 14.6 % 11.7-14.4 mhyu=980) PLATELET COUNT (BEAKER) (test lzma=448) 229 K/CU MM 150-450 MEAN PLATELET VOLUME (BEAKER) (test kxte=055) 10.6 fL 9.4-12.3 NUCLEATED RED BLOOD CELLS (BEAKER) (test 0 /100 WBC 0-0 hcmn=543) NEUTROPHILS RELATIVE PERCENT (BEAKER) (test 85 % msbb=788) LYMPHOCYTES RELATIVE PERCENT (BEAKER) (test 6 % ckop=657) MONOCYTES RELATIVE PERCENT (BEAKER) (test 7 % pjkt=823) EOSINOPHILS RELATIVE PERCENT (BEAKER) (test 1 % tyro=645) BASOPHILS RELATIVE PERCENT (BEAKER) (test 0 % ldqf=448) NEUTROPHILS ABSOLUTE COUNT (BEAKER) (test 12.75 K/ L 1.56-6.13 tdjw=107) LYMPHOCYTES ABSOLUTE COUNT (BEAKER) (test 0.92 K/ L 1.18-3.74 muwj=472) MONOCYTES ABSOLUTE COUNT (BEAKER) (test 1.00 K/ L 0.24-0.36 umat=587) EOSINOPHILS ABSOLUTE COUNT (BEAKER) (test 0.17 K/ L 0.04-0.36 qurd=493) BASOPHILS ABSOLUTE COUNT (BEAKER) (test 0.05 K/ L 0.01-0.08 pgvt=605) IMMATURE GRANULOCYTES-RELATIVE PERCENT (BEAKER) 1 % 0-1 (test cald=4686) [id number] 05:31:00 Test Item Value Reference Range Comments PARTIAL THROMBOPLASTIN TIME (BEAKER) (test 69.7 seconds 22.5-36.0 lavc=919) POCT-GLUCOSE [id number] 22:11:00 Test Item Value Reference Range Comments POC-GLUCOSE METER (BEAKER) 175 mg/dL 70-110 TESTED AT [address] (test glto=4050) [place] [address] [id number] 20:48:00 Test Item Value Reference Range Comments PARTIAL THROMBOPLASTIN TIME (BEAKER) (test 61.5 seconds 22.5-36.0 wxlf=905) [id number] 19:00:00 Test Item Value Reference Range Comments PARTIAL THROMBOPLASTIN TIME (BEAKER) (test > seconds 22.5-36.0 nlkw=598) POCT-GLUCOSE [id number] 17:10:00 Test Item Value Reference Range Comments POC-GLUCOSE METER (BEAKER) 211 mg/dL 70-110 TESTED AT [address] (test dpkt=9095) [place] [address] POCT-GLUCOSE [id number] 12:54:00 Test Item Value Reference Range Comments POC-GLUCOSE METER (BEAKER) 181 mg/dL 70-110 TESTED AT [address] (test aocw=1267) [place] [address] [id number] 11:03:00 Test Item Value Reference Range Comments PARTIAL THROMBOPLASTIN TIME (BEAKER) (test 83.7 seconds 22.5-36.0 raaq=054) CATHETER TIP [id number] 09:36:00 Test Item Value Reference Range Comments CULTURE (BEAKER) (test ghlz=5496) No growth POCT-GLUCOSE [id number] 08:14:00 Test Item Value Reference Range Comments POC-GLUCOSE METER (BEAKER) 191 mg/dL 70-110 TESTED AT [address] (test aepk=0973) [facility] [address] [id number] 03:56:00 Test Item Value Reference Range Comments PARTIAL THROMBOPLASTIN TIME (BEAKER) (test 104.2 seconds 22.5-36.0 ywkh=122) POCT-GLUCOSE [id number] 03:23:00 Test Item Value Reference Range Comments POC-GLUCOSE METER (BEAKER) 152 mg/dL 70-110 TESTED AT [address] (test ggjr=2788) [facility] [address] POCT-GLUCOSE [id number] 22:14:00 Test Item Value Reference Range Comments POC-GLUCOSE METER (BEAKER) 193 mg/dL 70-110 TESTED AT [address] (test arqk=6454) [place] [id number] 21:14:00 Test Item Value Reference Range Comments PARTIAL THROMBOPLASTIN TIME (BEAKER) (test 82.5 seconds 22.5-36.0 icln=218) POCT-GLUCOSE [id number] 19:35:00 Test Item Value Reference Range Comments POC-GLUCOSE METER (BEAKER) 156 mg/dL 70-110 TESTED AT [address] (test drly=4374) [place] [id number] VANCOMYCIN LEVEL, [id number] 18:48:00 Test Item Value Reference Range Comments VANCOMYCIN RANDOM (BEAKER) (test tbdg=754) 12.6 ug/mL Reference Range: No NormalsPlease draw a random vancomycin level at end of dialysis tomorrow 11/25HEPATITIS B SURFACE [id number] 15:50:00 Test Item Value Reference Range Comments HEPATITIS B SURFACE ANTIGEN (2) (BEAKER) (test Nonreactive Nonreactive rzuo=1998) [id number] 15:27:00 Test Item Value Reference Range Comments PARTIAL THROMBOPLASTIN TIME (BEAKER) (test 64.9 seconds 22.5-36.0 yvpm=190) BASIC METABOLIC [id number] 14:04:00 Test Item Value Reference Range Comments SODIUM (BEAKER) (test 134 meq/L 136-145 jboz=670) POTASSIUM (BEAKER) (test 3.9 meq/L 3.5-5.1 ltow=886) CHLORIDE (BEAKER) (test 100 meq/L 98-107 neey=558) CO2 (BEAKER) (test 22 meq/L 22-29 skqw=125) BLOOD UREA NITROGEN 68 mg/dL 7-21 (BEAKER) (test myjm=770) CREATININE (BEAKER) (test 8.46 mg/dL 0.57-1.25 mwha=457) GLUCOSE RANDOM (BEAKER) 156 mg/dL 70-105 (test ggju=083) CALCIUM (BEAKER) (test 8.7 mg/dL 8.4-10.2 igly=674) EGFR (BEAKER) (test 6 mL/min/1.73 sq m ESTIMATED GFR IS NOT nbqr=9069) ACCURATE CREATININE CLEARANCE IN PREDICTING GLOMERULAR FILTRATION RATE. ESTIMATED GFR IS NOT APPLICABLE FOR DIALYSIS PATIENTS. [id number] 13:33:00 Test Item Value Reference Range Comments PARTIAL THROMBOPLASTIN TIME (BEAKER) (test 67.9 seconds 22.5-36.0 lbxs=763) BLOOD [id number] 10:14:00 Test Item Value Reference Range Comments CULTURE (BEAKER) From Aerobic And Anaerobic (test grfl=6387) Bottles Staphylococcus aureusRefer to previous culture ofMethicillin resistant Staphylococcus aureus GRAM STAIN RESULT From aerobic and (BEAKER) (test anaerobic bottles: brrm=8225) gram positive cocci in clusters BLOOD [id number] 10:12:00 Test Item Value Reference Range Comments CULTURE (BEAKER) (test METHICILLIN RESISTANT From Aerobic And lyka=9868) STAPHYLOCOCCUS AUREUS Anaerobic Bottles Methicillin resistant Staphylococcus aureus Clindamycin (test code=10) Erythromycin (test code=4) Linezolid (test code=40) Nitrofurantoin (test code=23) Oxacillin (test code=14) Rifampin (test code=43) Tetracycline (test code=2) Trimethoprim + Sulfamethoxazole (test code=47) Vancomycin (test code=13) GRAM STAIN RESULT From aerobic and (BEAKER) (test srul=9694) anaerobic bottles: gram positive cocci in clusters POCT-GLUCOSE [id number] 08:05:00 Test Item Value Reference Range Comments POC-GLUCOSE METER (BEAKER) 182 mg/dL 70-110 TESTED AT [facility] [address] [facility] (test dekm=6753) [facility] [address] [id number] 06:49:00 Test Item Value Reference Range Comments PARTIAL THROMBOPLASTIN TIME (BEAKER) (test 83.0 seconds 22.5-36.0 cwrw=694) CBC W/PLT COUNT & AUTO [id number] 05:45:00 Test Item Value Reference Range Comments WHITE BLOOD CELL COUNT (BEAKER) (test xegr=860) 8.1 K/ L 3.5-10.5 RED BLOOD CELL COUNT (BEAKER) (test gayg=173) 2.88 M/ L 3.93-5.22 HEMOGLOBIN (BEAKER) (test kbgr=723) 8.1 GM/DL 11.2-15.7 HEMATOCRIT (BEAKER) (test ahaw=338) 26.6 % 34.1-44.9 MEAN CORPUSCULAR VOLUME (BEAKER) (test gece=734) 92.4 fL 79.4-94.8 MEAN CORPUSCULAR HEMOGLOBIN (BEAKER) (test 28.1 pg 25.6-32.2 gzis=512) MEAN CORPUSCULAR HEMOGLOBIN CONC (BEAKER) (test 30.5 GM/DL 32.2-35.5 zjmu=965) RED CELL DISTRIBUTION WIDTH (BEAKER) (test 14.9 % 11.7-14.4 qyat=790) PLATELET COUNT (BEAKER) (test cigc=310) 117 K/CU MM 150-450 MEAN PLATELET VOLUME (BEAKER) (test ujsf=935) 10.5 fL 9.4-12.3 NUCLEATED RED BLOOD CELLS (BEAKER) (test 0 /100 WBC 0-0 pmkv=808) NEUTROPHILS RELATIVE PERCENT (BEAKER) (test 72 % dllq=075) LYMPHOCYTES RELATIVE PERCENT (BEAKER) (test 11 % kapw=314) MONOCYTES RELATIVE PERCENT (BEAKER) (test 10 % vorg=829) EOSINOPHILS RELATIVE PERCENT (BEAKER) (test 5 % vren=444) BASOPHILS RELATIVE PERCENT (BEAKER) (test 1 % xyvm=379) NEUTROPHILS ABSOLUTE COUNT (BEAKER) (test 5.83 K/ L 1.56-6.13 vhhn=362) LYMPHOCYTES ABSOLUTE COUNT (BEAKER) (test 0.92 K/ L 1.18-3.74 aufq=893) MONOCYTES ABSOLUTE COUNT (BEAKER) (test 0.79 K/ L 0.24-0.36 jxmg=478) EOSINOPHILS ABSOLUTE COUNT (BEAKER) (test 0.41 K/ L 0.04-0.36 habx=713) BASOPHILS ABSOLUTE COUNT (BEAKER) (test 0.05 K/ L 0.01-0.08 glxn=110) IMMATURE GRANULOCYTES-RELATIVE PERCENT (BEAKER) 1 % 0-1 (test vgqm=8275) BASIC METABOLIC [id number] 00:23:00 Test Item Value Reference Range Comments SODIUM (BEAKER) (test 134 meq/L 136-145 nrdm=810) POTASSIUM (BEAKER) (test 3.8 meq/L 3.5-5.1 xggh=519) CHLORIDE (BEAKER) (test 100 meq/L 98-107 sktq=458) CO2 (BEAKER) (test 22 meq/L 22-29 wdsq=845) BLOOD UREA NITROGEN 62 mg/dL 7-21 (BEAKER) (test pxsu=678) CREATININE (BEAKER) (test 7.39 mg/dL 0.57-1.25 gxyd=347) GLUCOSE RANDOM (BEAKER) 155 mg/dL 70-105 (test xrby=253) CALCIUM (BEAKER) (test 8.6 mg/dL 8.4-10.2 uigv=532) EGFR (BEAKER) (test 7 mL/min/1.73 sq m ESTIMATED GFR IS NOT fdzf=0550) ACCURATE CREATININE CLEARANCE IN PREDICTING GLOMERULAR FILTRATION RATE. ESTIMATED GFR IS NOT APPLICABLE FOR DIALYSIS PATIENTS. [id number] 00:15:00 Test Item Value Reference Range Comments PHOSPHORUS (BEAKER) (test oyrk=512) 3.5 mg/dL 2.3-4.7 [id number] 00:15:00 Test Item Value Reference Range Comments MAGNESIUM (BEAKER) (test mdbb=367) 2.3 mg/dL 1.6-2.6 [id number] 00:03:00 Test Item Value Reference Range Comments PARTIAL THROMBOPLASTIN TIME (BEAKER) (test 105.0 seconds 22.5-36.0 ktyr=496) POCT-GLUCOSE [id number] 22:14:00 Test Item Value Reference Range Comments POC-GLUCOSE METER (BEAKER) 200 mg/dL 70-110 TESTED AT [facility] [address] [facility] (test bsql=4980) [facility] [address] [id number] 17:22:00 Test Item Value Reference Range Comments PROTIME (BEAKER) (test jdda=797) 13.7 seconds 11.7-14.7 INR (BEAKER) (test kcfx=528) 1.0 <=5.9 PARTIAL THROMBOPLASTIN TIME (BEAKER) (test 64.3 seconds 22.5-36.0 pzty=205) RECOMMENDED COUMADIN/WARFARIN INR THERAPY RANGESSTANDARD DOSE: 2.0 - 3.0 Includes: PROPHYLAXIS forvenous thrombosis, systemic embolization; TREATMENT for venous thrombosis and/or pulmonary embolus.HIGH RISK: Target INR is 2.5-3.5 for patients with mechanical heart valves.Prior to initiating heparinPrior to initiating [id number] 17:22:00 Test Item Value Reference Range Comments PARTIAL THROMBOPLASTIN TIME (BEAKER) (test 64.3 seconds 22.5-36.0 mbzo=086) POCT-GLUCOSE [id number] 17:19:00 Test Item Value Reference Range Comments POC-GLUCOSE METER (BEAKER) 169 mg/dL 70-110 TESTED AT [address] (test cxxw=1325) [place] [address] POCT-GLUCOSE [id number] 12:30:00 Test Item Value Reference Range Comments POC-GLUCOSE METER (BEAKER) 235 mg/dL 70-110 TESTED AT [address] (test htos=3634) [place] [address] [id number] 10:05:00 Test Item Value Reference Range Comments PARTIAL THROMBOPLASTIN TIME (BEAKER) (test 38.6 seconds 22.5-36.0 ztjo=232) Prior to initiating heparinPOCT-GLUCOSE [id number] 07:40:00 Test Item Value Reference Range Comments POC-GLUCOSE METER (BEAKER) 221 mg/dL 70-110 TESTED AT [address] (test ssxp=0922) [place] [address] [id number] 05:58:00 Test Item Value Reference Range Comments MAGNESIUM (BEAKER) (test jhgk=040) 2.1 mg/dL 1.6-2.6 [id number] 05:58:00 Test Item Value Reference Range Comments PHOSPHORUS (BEAKER) (test xdzr=919) 3.5 mg/dL 2.3-4.7 TROPONIN [id number] 05:15:00 Test Item Value Reference Range Comments TROPONIN I (BEAKER) (test pwet=567) 0.31 ng/mL 0.00-0.03 Troponin I (TnI) levels [...] disease, and persistent tachyarrhythmia.LACTIC ACID, VENOUS, WHOLE [id number] 05:13:00 Test Item Value Reference Range Comments LACTATE BLOOD VENOUS (2) (BEAKER) (test 0.8 mmol/L 0.5-2.2 sxsq=8917) BASIC METABOLIC [id number] 05:13:00 Test Item Value Reference Range Comments SODIUM (BEAKER) (test 136 meq/L 136-145 bpen=794) POTASSIUM (BEAKER) (test 3.4 meq/L 3.5-5.1 xvik=067) CHLORIDE (BEAKER) (test 99 meq/L 98-107 ioml=903) CO2 (BEAKER) (test 25 meq/L 22-29 sper=181) BLOOD UREA NITROGEN 43 mg/dL 7-21 (BEAKER) (test qaoz=771) CREATININE (BEAKER) (test 6.21 mg/dL 0.57-1.25 dcwf=949) GLUCOSE RANDOM (BEAKER) 175 mg/dL 70-105 (test teye=494) CALCIUM (BEAKER) (test 8.6 mg/dL 8.4-10.2 pctx=223) EGFR (BEAKER) (test 8 mL/min/1.73 sq m ESTIMATED GFR IS NOT fnlr=6415) ACCURATE CREATININE CLEARANCE IN PREDICTING GLOMERULAR FILTRATION RATE. ESTIMATED GFR IS NOT APPLICABLE FOR DIALYSIS PATIENTS. B-TYPE NATRIURETIC FACTOR (BNP)2018-11-24 05:12:00 Test Item Value Reference Range Comments B-TYPE NATRIURETIC PEPTIDE (BEAKER) (test 190 pg/mL 0-100 wwdm=992) CBC W/PLT COUNT & AUTO [id number] 05:12:00 Test Item Value Reference Range Comments WHITE BLOOD CELL COUNT (BEAKER) (test ioty=387) 12.0 K/ L 3.5-10.5 RED BLOOD CELL COUNT (BEAKER) (test fqck=605) 2.97 M/ L 3.93-5.22 HEMOGLOBIN (BEAKER) (test njbz=792) 8.1 GM/DL 11.2-15.7 HEMATOCRIT (BEAKER) (test ermk=260) 27.6 % 34.1-44.9 MEAN CORPUSCULAR VOLUME (BEAKER) (test rtks=232) 92.9 fL 79.4-94.8 MEAN CORPUSCULAR HEMOGLOBIN (BEAKER) (test 27.3 pg 25.6-32.2 oayb=781) MEAN CORPUSCULAR HEMOGLOBIN CONC (BEAKER) (test 29.3 GM/DL 32.2-35.5 wlju=655) RED CELL DISTRIBUTION WIDTH (BEAKER) (test 15.0 % 11.7-14.4 kowu=030) PLATELET COUNT (BEAKER) (test hrob=564) 115 K/CU MM 150-450 MEAN PLATELET VOLUME (BEAKER) (test curo=762) 10.9 fL 9.4-12.3 NUCLEATED RED BLOOD CELLS (BEAKER) (test 0 /100 WBC 0-0 iazx=819) NEUTROPHILS RELATIVE PERCENT (BEAKER) (test 81 % yuto=827) LYMPHOCYTES RELATIVE PERCENT (BEAKER) (test 6 % exan=741) MONOCYTES RELATIVE PERCENT (BEAKER) (test 10 % cfqm=816) EOSINOPHILS RELATIVE PERCENT (BEAKER) (test 3 % wyfs=279) BASOPHILS RELATIVE PERCENT (BEAKER) (test 1 % gbbb=450) NEUTROPHILS ABSOLUTE COUNT (BEAKER) (test 9.67 K/ L 1.56-6.13 fjjo=598) LYMPHOCYTES ABSOLUTE COUNT (BEAKER) (test 0.66 K/ L 1.18-3.74 fivp=626) MONOCYTES ABSOLUTE COUNT (BEAKER) (test 1.18 K/ L 0.24-0.36 ownz=442) EOSINOPHILS ABSOLUTE COUNT (BEAKER) (test 0.32 K/ L 0.04-0.36 djsp=440) BASOPHILS ABSOLUTE COUNT (BEAKER) (test 0.06 K/ L 0.01-0.08 fkoy=303) IMMATURE GRANULOCYTES-RELATIVE PERCENT (BEAKER) 1 % 0-1 (test rbxl=3411) POCT-GLUCOSE [id number] 22:03:00 Test Item Value Reference Range Comments POC-GLUCOSE METER (BEAKER) 187 mg/dL 70-110 TESTED AT [facility] [address] [facility] (test tcqw=6811) [facility] [address] POCT-GLUCOSE [id number] 18:08:00 Test Item Value Reference Range Comments POC-GLUCOSE METER (BEAKER) 251 mg/dL 70-110 TESTED AT [place] [id number] [facility] (test ncao=8783) [facility] [address] ANG, CENTRAL VENOUS CATH PLCMT (JUG/FEM) > 5 Y.O. WITH [id number] 16:53 :00Reason for exam:->discussed, guidewire exchange of [...] Connor Verified Date/Time: 11/23/2018 16:53:15 Reading Location: [address] Body Reading Room BLOOD CULTURE IDENTIFICATION [id number] 13:44:00 Test Item Value Reference Range Comments LISTERIA MONOCYTOGENES (test Not detected Not detected jlid=[id number]) STAPHYLOCOCCUS (test Detected Not detected oboy=3772031) STAPHYLOCOCCUS AUREUS (test Detected Not detected First line therapy: srzf=6628595) VancomycinID consultation strongly encouraged. Staphylococcus aureus DETECTED MecA DETECTEDReference Range: Not Detected STREPTOCOCCUS (test Not detected Not detected zivm=0079137) STREPTOCOCCUS AGALACTIAE Not detected Not detected (GROUP B) (test ocea=6025812) STREPTOCOCCUS PNEUMONIAE Not detected Not detected (test xkft=6670495) STREPTOCOCCUS PYOGENES (GROUP Not detected Not detected A) (test mfkf=6622055) ACINETOBACTER BAUMANNII (test Not detected Not detected dumx=2562890) HAEMOPHILUS INFLUENZAE (test Not detected Not detected hvio=9850003) NEISSERIA MENINGITIDIS (test Not detected Not detected hlcs=2022255) ENTEROBACTERIACEAE (test Not detected Not detected gwse=4364810) ENTEROBACTER CLOACOE COMPLEX Not detected Not detected (test uhdv=6148456) KLEBSIELLA OXYTOCA (test Not detected Not detected cuys=8249301) KLEBSIELLA PNEUMONIAE (test Not detected Not detected ccxx=7495) PROTEUS (test cgmf=9710506) Not detected Not detected SERRATIA MARCESCENS (test Not detected Not detected lbtg=6360503) SHRUTHI ALBICANS (test Not detected Not detected ylct=7892402) SHRUTHI GLABRATA (test Not detected Not detected rozv=5537088) SHRUTHI KRUSEI (test Not detected Not detected rwvg=0149477) SHRUTHI PARAPSILOSIS (test Not detected Not detected lfgr=6807365) SHRUTHI TROPICALIS (test Not detected Not detected rgaz=7820911) ESCHERICHIA COLI (test Not detected Not detected hmnc=1480827) METHICILLIN-RESISTANCE GENE Detected Not detected (test fljm=3081542) VANCOMYCIN-RESISTANCE GENE Not detected (test eguo=9245743) CARBAPENEM-RESISTANCE GENE Not detected (test tkka=0247928) ENTEROCOCCUS-BEAKER (test Not detected Not detected rmis=8581674) PSEUDOMONAS AERUGINOSA-BEAKER Not detected Not detected (test ceyn=0561854) Other bacteria and resistance markers not targeted by this PCR panel cannot be excluded; therefore clinical correlation and follow up of serology, culture results, and other molecular studies is required. The results are not intended to be used as the sole means for clinical diagnosis or patient management decisions. This sample was tested at the [facility] Molecular Diagnostics Laboratory using the [employer] Blood Culture ID Panel. It is FDA cleared and has been verified and approved by the [facility] Molecular Diagnostics Laboratory for clinical use. This laboratory is CLIA-certified and College ofAmerican Pathologists (CAP)-accredited to perform high complexity testing.VANCOMYCIN LEVEL, [id number] 13:20:00 Test Item Value Reference Range Comments VANCOMYCIN RANDOM (AKER) (test azqp=241) 22.9 ug/mL Reference Range: No NormalsPOCT-GLUCOSE [id number] 13:00:00 Test Item Value Reference Range Comments POC-GLUCOSE METER (AKER) 249 mg/dL 70-110 TESTED AT [facility] [address] (test dkxs=2149) [facility] [address] TROPONIN [id number] 10:54:00 Test Item Value Reference Range Comments TROPONIN I (BEAKER) (test wcik=693) 0.30 ng/mL 0.00-0.03 Troponin I (TnI) levels [...] failure, acidosis, acute neurological disease, and persistent tachyarrhythmia.[id number] 10:45:00 Test Item Value Reference Range Comments LIPASE (BEAKER) (test kfmn=011) 12 U/L 8-78 RAD, ABDOMEN/KUB, 1 VIEW [id number] 08:42:00Reason for exam:->abd painFINAL REPORT RAD, ABDOMEN/KUB, [...] MDReport Verified Date/Time: 11/23/2018 08:42:11 Reading Location: [facility] Radiology Reading Room COMPREHENSIVE METABOLIC [id number] 07:44:00 Test Item Value Reference Range Comments TOTAL PROTEIN (BEAKER) 6.0 gm/dL 6.0-8.3 (test mkqa=145) ALBUMIN (BEAKER) (test 3.0 g/dL 3.5-5.0 swqv=2441) ALKALINE PHOSPHATASE 248 U/L 40-150 (BEAKER) (test tuqu=124) BILIRUBIN TOTAL (BEAKER) 0.8 mg/dL 0.2-1.2 (test zznj=786) SODIUM (BEAKER) (test 137 meq/L 136-145 zmsw=070) POTASSIUM (BEAKER) (test 3.6 meq/L 3.5-5.1 ohzt=938) CHLORIDE (BEAKER) (test 101 meq/L 98-107 lrwb=975) CO2 (BEAKER) (test 28 meq/L 22-29 xqsp=867) BLOOD UREA NITROGEN 26 mg/dL 7-21 (BEAKER) (test ymnt=924) CREATININE (BEAKER) (test 4.09 mg/dL 0.57-1.25 hqqc=402) GLUCOSE RANDOM (BEAKER) 201 mg/dL 70-105 (test yqme=792) CALCIUM (BEAKER) (test 9.3 mg/dL 8.4-10.2 oxmo=282) AST (SGOT) (BEAKER) (test 39 U/L 5-34 blgq=383) ALT (SGPT) (BEAKER) (test 18 U/L 6-55 cwby=065) EGFR (BEAKER) (test 13 mL/min/1.73 sq m ESTIMATED GFR IS NOT etxb=0736) ACCURATE CREATININE CLEARANCE IN PREDICTING GLOMERULAR FILTRATION RATE. ESTIMATED GFR IS NOT APPLICABLE FOR DIALYSIS PATIENTS. BASIC METABOLIC [id number] 07:44:00 Test Item Value Reference Range Comments SODIUM (BEAKER) (test 137 meq/L 136-145 hzhr=883) POTASSIUM (BEAKER) (test 3.6 meq/L 3.5-5.1 zrer=727) CHLORIDE (BEAKER) (test 101 meq/L 98-107 xbvf=905) CO2 (BEAKER) (test 28 meq/L 22-29 fgqe=279) BLOOD UREA NITROGEN 26 mg/dL 7-21 (BEAKER) (test yfto=008) CREATININE (BEAKER) (test 4.09 mg/dL 0.57-1.25 tvax=375) GLUCOSE RANDOM (BEAKER) 201 mg/dL 70-105 (test plts=440) CALCIUM (BEAKER) (test 9.3 mg/dL 8.4-10.2 sphd=160) EGFR (BEAKER) (test 13 mL/min/1.73 sq m ESTIMATED GFR IS NOT glae=2566) ACCURATE CREATININE CLEARANCE IN PREDICTING GLOMERULAR FILTRATION RATE. ESTIMATED GFR IS NOT APPLICABLE FOR DIALYSIS PATIENTS. [id number] 07:39:00 Test Item Value Reference Range Comments PHOSPHORUS (BEAKER) (test eqzk=859) 3.0 mg/dL 2.3-4.7 [id number] 07:39:00 Test Item Value Reference Range Comments MAGNESIUM (BEAKER) (test qpai=813) 1.9 mg/dL 1.6-2.6 LACTIC ACID, VENOUS, WHOLE [id number] 07:34:00 Test Item Value Reference Range Comments LACTATE BLOOD VENOUS (2) (BEAKER) (test 0.8 mmol/L 0.5-2.2 nerv=6494) CALCIUM, [id number] 07:28:00 Test Item Value Reference Range Comments CALCIUM IONIZED (BEAKER) (test fbfe=960) 1.13 mmol/L 1.12-1.27 PH, BLOOD (BEAKER) (test btua=9169) 7.36 CBC W/PLT COUNT & AUTO [id number] 07:28:00 Test Item Value Reference Range Comments WHITE BLOOD CELL COUNT (BEAKER) (test ojqx=334) 19.0 K/ L 3.5-10.5 RED BLOOD CELL COUNT (BEAKER) (test disp=062) 2.89 M/ L 3.93-5.22 HEMOGLOBIN (BEAKER) (test lnxj=556) 8.3 GM/DL 11.2-15.7 HEMATOCRIT (BEAKER) (test khzx=836) 26.8 % 34.1-44.9 MEAN CORPUSCULAR VOLUME (BEAKER) (test ogrd=069) 92.7 fL 79.4-94.8 MEAN CORPUSCULAR HEMOGLOBIN (BEAKER) (test 28.7 pg 25.6-32.2 cgwx=942) MEAN CORPUSCULAR HEMOGLOBIN CONC (BEAKER) (test 31.0 GM/DL 32.2-35.5 tjmx=184) RED CELL DISTRIBUTION WIDTH (BEAKER) (test 15.1 % 11.7-14.4 gmkb=245) PLATELET COUNT (BEAKER) (test dldx=370) 101 K/CU MM 150-450 MEAN PLATELET VOLUME (BEAKER) (test npqo=966) 10.7 fL 9.4-12.3 NUCLEATED RED BLOOD CELLS (BEAKER) (test 0 /100 WBC 0-0 leia=808) NEUTROPHILS RELATIVE PERCENT (BEAKER) (test 88 % txwb=085) LYMPHOCYTES RELATIVE PERCENT (BEAKER) (test 3 % ltdd=834) MONOCYTES RELATIVE PERCENT (BEAKER) (test 6 % swmw=406) EOSINOPHILS RELATIVE PERCENT (BEAKER) (test 2 % lmlx=818) BASOPHILS RELATIVE PERCENT (BEAKER) (test 0 % dfbu=221) NEUTROPHILS ABSOLUTE COUNT (BEAKER) (test 16.67 K/ L 1.56-6.13 ntso=214) LYMPHOCYTES ABSOLUTE COUNT (BEAKER) (test 0.59 K/ L 1.18-3.74 jqvj=069) MONOCYTES ABSOLUTE COUNT (BEAKER) (test 1.07 K/ L 0.24-0.36 dcin=064) EOSINOPHILS ABSOLUTE COUNT (BEAKER) (test 0.36 K/ L 0.04-0.36 isau=539) BASOPHILS ABSOLUTE COUNT (BEAKER) (test 0.07 K/ L 0.01-0.08 youl=652) IMMATURE GRANULOCYTES-RELATIVE PERCENT (BEAKER) 1 % 0-1 (test gqbf=6885) BASIC METABOLIC [id number] 02:11:00 Test Item Value Reference Range Comments SODIUM (BEAKER) (test 136 meq/L 136-145 lvhb=956) POTASSIUM (BEAKER) (test 3.3 meq/L 3.5-5.1 mktv=735) CHLORIDE (BEAKER) (test 101 meq/L 98-107 dzwm=195) CO2 (BEAKER) (test 25 meq/L 22-29 hehx=577) BLOOD UREA NITROGEN 34 mg/dL 7-21 (BEAKER) (test czuc=498) CREATININE (BEAKER) (test 5.32 mg/dL 0.57-1.25 kxoa=960) GLUCOSE RANDOM (BEAKER) 164 mg/dL 70-105 (test pffd=824) CALCIUM (BEAKER) (test 9.4 mg/dL 8.4-10.2 mxlh=368) EGFR (BEAKER) (test 10 mL/min/1.73 sq m ESTIMATED GFR IS NOT akqr=8025) ACCURATE CREATININE CLEARANCE IN PREDICTING GLOMERULAR FILTRATION RATE. ESTIMATED GFR IS NOT APPLICABLE FOR DIALYSIS PATIENTS. [id number] 02:07:00 Test Item Value Reference Range Comments PHOSPHORUS (BEAKER) (test ecqd=526) 2.7 mg/dL 2.3-4.7 [id number] 02:07:00 Test Item Value Reference Range Comments MAGNESIUM (BEAKER) (test sdzl=978) 1.8 mg/dL 1.6-2.6 CALCIUM, [id number] 01:51:00 Test Item Value Reference Range Comments CALCIUM IONIZED (BEAKER) (test klmi=213) 1.18 mmol/L 1.12-1.27 PH, BLOOD (BEAKER) (test ajif=7914) 7.35 POCT-GLUCOSE [id number] 00:30:00 Test Item Value Reference Range Comments POC-GLUCOSE METER (BEAKER) 248 mg/dL 70-110 TESTED AT [facility] [address] [facility] (test atar=8101) [facility] [address] TROPONIN [id number] 23:27:00 Test Item Value Reference Range Comments TROPONIN I (BEAKER) (test hvne=487) 0.60 ng/mL 0.00-0.03 Troponin I (TnI) levels [...] disease, and persistent tachyarrhythmia.LACTIC ACID, VENOUS, WHOLE [id number] 23:13:00 Test Item Value Reference Range Comments LACTATE BLOOD VENOUS (2) (FARRAH) (test 1.3 mmol/L 0.5-2.2 nzdg=7043) U/S, ABDOMINAL, [id number] 20:30:00Reason for exam:->Septic Shock, ESRD, Dysuria, Abdominal [...] 11/22/2018 20:30: 54 Reading Location: [facility] C0[facility] Neuro Reading Room LACTIC ACID, VENOUS, WHOLE [id number] 18:54:00 Test Item Value Reference Range Comments LACTATE BLOOD VENOUS (2) (BEAKER) (test 1.5 mmol/L 0.5-2.2 gsij=4667) [id number] 17:26:00 Test Item Value Reference Range Comments PROCALCITONIN (BEAKER) (test lmoz=0794) > ng/mL <0.05 SEPSIS RISK (ng/mL)Low: 0.05-0.50Intermediate: 0.51-2.00High: & gt;=2.01TSH/FREE T4 IF [id number] 17:10:00 Test Item Value Reference Range Comments THYROID STIMULATING HORMONE (BEAKER) (test 2.43 uIU/mL 0.35-4.94 elye=753) RAD, CHEST, 1 VIEW, NON [id number] 17:04:00Reason for exam:->Respiratory Insufficiency, Septic ShockShould this [...] Verified Date/Time: 11/22/2018 17:04 :54 Reading Location: [address] Reading Room (CELLAVISION MANUAL DIFF) 2018-11-22 16:57:00 Test Item Value Reference Range Comments NEUTROPHILS - REL (CELLAVISION)(BEAKER) (test 85 % limb=9324) LYMPHOCYTES - REL (CELLAVISION)(BEAKER) (test 5 % qgpu=8837) MONOCYTES - REL (CELLAVISION)(BEAKER) (test 4 % yyho=8387) BANDS - REL (CELLAVISION)(BEAKER) (test 6 % 0-10 jrhg=3227) NEUTROPHILS - ABS (CELLAVISION)(BEAKER) (test 22.87 K/ul 1.56-6.13 rmuy=3185) LYMPHOCYTES - ABS (CELLAVISION)(BEAKER) (test 1.35 K/ul 1.18-3.74 ljjl=0366) MONOCYTES - ABS (CELLAVISION)(BEAKER) (test 1.08 K/uL 0.24-0.36 kqvl=5261) BANDS - ABS (CELLAVISION)(BEAKER) (test 1.61 K/uL 0.00-0.80 bjfm=5318) TOTAL COUNTED (BEAKER) (test mamk=9153) 100 WBC MORPHOLOGY (BEAKER) (test nzdp=400) Normal PLT MORPHOLOGY (BEAKER) (test azhe=024) Normal POLYCHROMATOPHILLIC RBCS(BEAKER) (test hyxb=346) 3+ many ANISOCYTOSIS (BEAKER) (test ggof=830) 1+ few MICROCYTES (BEAKER) (test ckrn=432) 1+ few POIKILOCYTES (BEAKER) (test dbxo=761) 2+ moderate TEAR DROP CELLS (BEAKER) (test zekl=000) 1+ few JOVANNI CELLS (BEAKER) (test roue=358) 1+ few ARTIFACT (CELLAVISION)(BEAKER) (test kseq=8374) Present HELMET CELLS (CELLAVISION)(BEAKER) (test 1+ few xjhm=5532) PLATELET CONCENTRATION (CELLAVISION)(BEAKER) Adequate (test bxgi=2947) Received comment: User comments: Slide comments:TROPONIN [id number] 16:52:00 Test Item Value Reference Range Comments TROPONIN I (BEAKER) (test cwjd=139) 0.85 ng/mL 0.00-0.03 Troponin I (TnI) levels [...] acidosis, acute neurological disease, and persistent tachyarrhythmia.PROTHROMBIN [id number] 16:52:00 Test Item Value Reference Range Comments PROTIME (BEAKER) (test pqnc=813) 16.1 seconds 11.7-14.7 INR (BEAKER) (test xwdx=376) 1.3 <=5.9 RECOMMENDED COUMADIN/WARFARIN INR THERAPY RANGESSTANDARD DOSE: 2.0 - 3.0 Includes: PROPHYLAXIS forvenous thrombosis, systemic embolization; TREATMENT for venous thrombosis and/or pulmonary embolus.HIGH RISK: Target INR is 2.5-3.5 for patients with mechanical heart valves.B-TYPE NATRIURETIC FACTOR (BNP)2018-10 16:48:00 Test Item Value Reference Range Comments B-TYPE NATRIURETIC PEPTIDE (BEAKER) (test 353 pg/mL 0-100 eiqm=762) BASIC METABOLIC [id number] 16:48:00 Test Item Value Reference Range Comments SODIUM (BEAKER) (test 136 meq/L 136-145 zwvz=820) POTASSIUM (BEAKER) (test 2.9 meq/L 3.5-5.1 pivz=412) CHLORIDE (BEAKER) (test 98 meq/L 98-107 sjfk=586) CO2 (BEAKER) (test 24 meq/L 22-29 wxja=560) BLOOD UREA NITROGEN 47 mg/dL 7-21 (BEAKER) (test wupz=151) CREATININE (BEAKER) (test 8.07 mg/dL 0.57-1.25 wkcx=626) GLUCOSE RANDOM (BEAKER) 207 mg/dL 70-105 (test wxpv=444) CALCIUM (BEAKER) (test 9.5 mg/dL 8.4-10.2 pcuj=288) EGFR (BEAKER) (test 6 mL/min/1.73 sq m ESTIMATED GFR IS NOT glad=8143) ACCURATE CREATININE CLEARANCE IN PREDICTING GLOMERULAR FILTRATION RATE. ESTIMATED GFR IS NOT APPLICABLE FOR DIALYSIS PATIENTS. BLOOD GAS, [id number] 16:44:00 Test Item Value Reference Range Comments PH ARTERIAL (BEAKER) (test stlm=749) 7.37 7.35-7.45 PCO2 ARTERIAL (BEAKER) (test pgyw=921) 42 mmHg 35-45 PO2 ARTERIAL (BEAKER) (test fpwq=674) 123 mmHg 80-90 O2 SATURATION ARTERIAL (BEAKER) (test vyvj=818) 98.3 % 96.0-97.0 HCO3 ARTERIAL (BEAKER) (test tgey=911) 24 mmol/L 21-29 BASE EXCESS ARTERIAL (BEAKER) (test rmgw=764) -1.7 mmol/L -2.0-3.0 PATIENT TEMPERATURE (BEAKER) (test bphx=5933) 37.0 C FIO2 (BEAKER) (test fguk=0517) 28.0 % [id number] 16:44:00 Test Item Value Reference Range Comments PHOSPHORUS (BEAKER) (test pxzw=938) 4.1 mg/dL 2.3-4.7 [id number] 16:44:00 Test Item Value Reference Range Comments MAGNESIUM (BEAKER) (test piyz=055) 1.9 mg/dL 1.6-2.6 HEPATIC FUNCTION [id number] 16:44:00 Test Item Value Reference Range Comments TOTAL PROTEIN (BEAKER) (test atvv=641) 6.9 gm/dL 6.0-8.3 ALBUMIN (BEAKER) (test fbmy=3815) 3.5 g/dL 3.5-5.0 BILIRUBIN TOTAL (BEAKER) (test wcpi=283) 0.9 mg/dL 0.2-1.2 BILIRUBIN DIRECT (BEAKER) (test sybc=255) 0.6 mg/dL 0.1-0.5 ALKALINE PHOSPHATASE (BEAKER) (test iujj=332) 245 U/L 40-150 AST (SGOT) (BEAKER) (test mlob=001) 51 U/L 5-34 ALT (SGPT) (BEAKER) (test rzwn=771) 18 U/L 6-55 VANCOMYCIN LEVEL, [id number] 16:41:00 Test Item Value Reference Range Comments VANCOMYCIN RANDOM (BEAKER) (test kzdm=618) 18.3 ug/mL Reference Range: No NormalsOXYGEN SATURATION, [id number] 16:40:00 Test Item Value Reference Range Comments O2 SATURATION (MEASURED) (BEAKER) (test otpv=2198) 62.7 % If patient has internal jugular ( IJ) or subclavian central line or PICC line. Draw from distal port. Label as central venous oxygen.LACTIC ACID, VENOUS, WHOLE [id number] 16:38:00 Test Item Value Reference Range Comments LACTATE BLOOD VENOUS (2) (BEAKER) (test 1.2 mmol/L 0.5-2.2 wlgf=3523) CBC W/PLT COUNT & AUTO [id number] 16:35:00 Test Item Value Reference Range Comments WHITE BLOOD CELL COUNT (BEAKER) (test vbfc=846) 26.9 K/ L 3.5-10.5 RED BLOOD CELL COUNT (BEAKER) (test wgeg=600) 3.17 M/ L 3.93-5.22 HEMOGLOBIN (BEAKER) (test ykxs=389) 8.8 GM/DL 11.2-15.7 HEMATOCRIT (BEAKER) (test havq=653) 29.6 % 34.1-44.9 MEAN CORPUSCULAR VOLUME (BEAKER) (test wwlo=403) 93.4 fL 79.4-94.8 MEAN CORPUSCULAR HEMOGLOBIN (BEAKER) (test 27.8 pg 25.6-32.2 rdzh=451) MEAN CORPUSCULAR HEMOGLOBIN CONC (BEAKER) (test 29.7 GM/DL 32.2-35.5 layc=491) RED CELL DISTRIBUTION WIDTH (BEAKER) (test 15.3 % 11.7-14.4 jlyc=547) PLATELET COUNT (BEAKER) (test nnye=744) 149 K/CU MM 150-450 MEAN PLATELET VOLUME (BEAKER) (test bbjm=588) 10.6 fL 9.4-12.3 NUCLEATED RED BLOOD CELLS (BEAKER) (test 0 /100 WBC 0-0 hxzb=823) NEUTROPHILS RELATIVE PERCENT (BEAKER) (test 88 % akdz=510) LYMPHOCYTES RELATIVE PERCENT (BEAKER) (test 4 % jvts=209) MONOCYTES RELATIVE PERCENT (BEAKER) (test 6 % xsnp=477) EOSINOPHILS RELATIVE PERCENT (BEAKER) (test 1 % hjtg=166) BASOPHILS RELATIVE PERCENT (BEAKER) (test 0 % wbma=663) NEUTROPHILS ABSOLUTE COUNT (BEAKER) (test 23.68 K/ L 1.56-6.13 tcol=290) LYMPHOCYTES ABSOLUTE COUNT (BEAKER) (test 0.94 K/ L 1.18-3.74 hjfd=156) MONOCYTES ABSOLUTE COUNT (BEAKER) (test 1.53 K/ L 0.24-0.36 cpjx=844) EOSINOPHILS ABSOLUTE COUNT (BEAKER) (test 0.32 K/ L 0.04-0.36 rjib=013) BASOPHILS ABSOLUTE COUNT (BEAKER) (test 0.08 K/ L 0.01-0.08 zhlq=929) IMMATURE GRANULOCYTES-RELATIVE PERCENT (BEAKER) 1 % 0-1 (test ehol=5909) HEP B SURFACE [id number] 15:58:00 Test Item Value Reference Range Comments [...] Negative (qualifier Negative value) CBC WITH AUTO [id number] 07:16:00 Test Item Value Reference Range Comments [...] 1.0-3.0 IG% (test code=IG%) 1.4 % 0.0-0.4 [id number] 07:13:00 Test Item Value Reference Range Comments [...] mL/min/1.73m\\S\\2 EGFR if Non- 11 Estimated Glomerular [place] (test mL/min/1.73m\\S\\2 Filtration Rate (eGFR) code=EGFRNA) Reference [...] management of chronic kidney failure. TYPE & [id number] 15:35:00 Test Item Value Reference Range Comments ABO Blood Type (test code=ABO) A Rh (test code=RH) Negative Antibody Screen (test code=ABSCR) Negative Negative ARMBAND# (test code=ARMBAND) FF 84 337 [id number] 13:49:00 Test Item Value Reference Range Comments [...] mL/min/1.73m\\S\\2 EGFR if Non- 10 Estimated Glomerular [place] (test mL/min/1.73m\\S\\2 Filtration Rate (eGFR) code=EGFRNA) Reference [...] management of chronic kidney failure. er4PT AND [id number] 14:13:00 Test Item Value Reference Range Comments Protime (test code=PT) 9.8 seconds 9.0-11.9 INR (test code=INR) 1.0 0.9-1.1 INR results are intended ONLY to monitor Oral Anticoagulant therapy in stablized patients. The INR Therapeutic Range is 2.0 - 3.0 Patients with a mechanical heart, the INR Range is 2.5 - 3.5 [id number] 14:13:00 Test Item Value Reference Range Comments aPTT (test code=PTT) 28.2 seconds 23.0-33.0 CBC WITH AUTO [id number] 13:39:00 Test Item Value Reference Range Comments [...] IG% (test code=IG%) 1.7 % 0.0-0.4 AUTO [id number] 13:25:00 Test Item Value Reference Range Comments [...] mL/min/1.73m\\S\\2 EGFR if Non- 10 Estimated Glomerular [place] (test mL/min/1.73m\\S\\2 Filtration Rate (eGFR) code=EGFRNA) Reference [...] management of chronic kidney failure. TYPE & [id number] 12:40:00 Test Item Value Reference Range Comments ABO Blood Type (test code=ABO) A Rh (test code=RH) Negative Antibody Screen (test code=ABSCR) Negative Negative ARMBAND# (test code=ARMBAND) FF 12 500 [id number] 06:38:00 Test Item Value Reference Range Comments [...] mL/min/1.73m\\S\\2 EGFR if Non- 12 Estimated Glomerular [place] (test mL/min/1.73m\\S\\2 Filtration Rate (eGFR) code=EGFRNA) Reference [...] of chronic kidney failure. CBC WITH AUTO [id number] 06:35:00 Test Item Value Reference Range Comments [...] (test code=IG%) 0.4 % 0.0-0.4 CBC AUTO [id number] 06:33:00 Test Item Value Reference Range Comments aPTT (test code=PTT) 29.4 seconds 23.0-33.0 PT AND [id number] 06:33:00 Test Item Value Reference Range Comments Protime (test code=PT) 10.1 seconds 9.0-11.9 INR (test code=INR) 1.0 0.9-1.1 INR results are intended ONLY to monitor Oral Anticoagulant therapy in stablized patients. The INR Therapeutic Range is 2.0 - 3.0 Patients with a mechanical heart, the INR Range is 2.5 - 3.5 [id number] 10:05:00 Test Item Value Reference Range Comments [...] mL/min/1.73m\\S\\2 EGFR if Non- 15 Estimated Glomerular [place] (test mL/min/1.73m\\S\\2 Filtration Rate (eGFR) code=EGFRNA) Reference [...] PLATELET CLUMPING. THIS IS A HEMOGRAM ONLYRBC, [id number] 03:00:00 Test Item Value Reference Range Comments RBC Unit (test code=RBCUNIT) Released for Transfusion RBC, [id number] 03:00:00 Test Item Value Reference Range Comments RBC Unit (test code=RBCUNIT) Released for Transfusion CROSSMATCH x 12:53:00Completed: Compatible Ready to TransfuseTYPE & amp; [id number] 12:52:00 Test Item Value Reference Range Comments ABO Blood Type (test code=ABO) A Rh (test code=RH) Negative Antibody Screen (test code=ABSCR) Negative Negative ARMBAND# (test code=ARMBAND) FF 12 500 HEP B SURFACE [id number] 07:50:00 Test Item Value Reference Range Comments [...] Negative (qualifier Negative value) CBC WITH AUTO [id number] 07:17:00 Test Item Value Reference Range Comments [...] called to Gary DIAZ RN. K3 by [id number] on 08/10/2017 07:16 AM. Results were readback by Claudine DE LA CRUZ RN..[id number] 07:17:00 Test Item Value Reference Range Comments [...] mL/min/1.73m\\S\\2 EGFR if Non- 13 Estimated Glomerular [place] (test mL/min/1.73m\\S\\2 Filtration Rate (eGFR) code=EGFRNA) Reference Intervals Decision Points for 18 years and older and average body mass: >=60 Does not exclude kidney disease. 30 - 59 Suggests moderate chronic kidney disease and indicates the need for further investigation including assessment of proteinuria and cardiovascular factors. < 30 Usually indicates a need for referral for assessment and management of chronic kidney failure. [id number] 19:07:00 Test Item Value Reference Range Comments aPTT (test code=PTT) 29.9 seconds 23.0-33.0 PT AND [id number] 19:07:00 Test Item Value Reference Range Comments Protime (test code=PT) 10.1 seconds 9.0-11.9 INR (test code=INR) 1.0 0.9-1.1 INR results are intended ONLY to monitor Oral Anticoagulant therapy in stablized patients. The INR Therapeutic Range is 2.0 - 3.0 Patients with a mechanical heart, the INR Range is 2.5 - 3.5 [id number] 18:35:00 Test Item Value Reference Range Comments [...] mL/min/1.73m\\S\\2 EGFR if Non- 13 Estimated Glomerular [place] (test mL/min/1.73m\\S\\2 Filtration Rate (eGFR) code=EGFRNA) Reference [...] of chronic kidney failure. CBC WITH AUTO [id number] 18:19:00 Test Item Value Reference Range Comments [...] IG% (test code=IG%) 0.4 % 0.0-0.4 AUTO [id number] 17:15:00 Test Item Value Reference Range Comments [...] (test code=BGCTHB) 8.3 gm/dl 11.5-17.4 O2Hb (test code=PGZH2KU) 94.9 % 95.0-99.0 COHb (test code=BGFCOHB) <2.8 [...] Notified (test code=BGTMNOTIFIED) 15:59 O2 Device (test code=RGC8UDL3) Room Air Instrument ID (test code=BGINSTRID) [id number] Reported By (test code=BGREPORTEDBY) ROSALINO HUFF [id number] 09:50:00 Test Item Value Reference Range Comments [...] mL/min/1.73m\\S\\2 EGFR if Non- 14 Estimated Glomerular [place] (test mL/min/1.73m\\S\\2 Filtration Rate (eGFR) code=EGFRNA) Reference [...] values were called to Tracy AGARWAL by [id number] on 08/07/2017 09:41 AM. Results were read back by Tracy AGARWAL.CULTURE, [id number] 07:53:00Specimen : AbscessCollected: 07/26/2017 20:47 Status: Final [...] 09:58: Culture Result (Prelim) (Prelim) Many DiptheroidsCULTURE, [id number] 06:50:00To start 15mins after 1st cultureSpecimen: BloodCollected: 07/24/2017 00:38 Status: Final Last Updated: 07/29/2017 06: 49 (1) To start 15mins after 1st culture Culture Result (Final) (Final ) No Growth After 5 DaysCULTURE, [id number] 06:50:00Specimen: BloodCollected: 07/24/2017 00:18 Status: Final Last Updated: 07/29/2017 06: 49 Culture Result (Final) (Final) No Growth After 5 DaysED RAPID [id number] 04:24:00 Test Item Value Reference Range Comments CKMB (BIOSITE) (test code=BIOCKMB) <1.0 ng/ml 0.0-2.5 TROPONIN-I (BIOSITE) (test code=BIOTROP) <0.050 ng/ml 0.000-0.050 MYOGLOBIN (BIOSITE) (test code=BIOMYO) 166.0 ng/ml 0.0-170.0 SERIAL INSTRUMENT NUMBER (test code=SERIAL) [id number] ED RAPID [id number] 01:05:00 Test Item Value Reference Range Comments CKMB (BIOSITE) (test code=BIOCKMB) <1.0 ng/ml 0.0-2.5 TROPONIN-I (BIOSITE) (test code=BIOTROP) <0.050 ng/ml 0.000-0.050 MYOGLOBIN (BIOSITE) (test code=BIOMYO) 203.0 ng/ml 0.0-170.0 SERIAL INSTRUMENT NUMBER (test code=SERIAL) [id number] 01:02:00 Test Item Value Reference Range Comments [...] mL/min/1.73m\\S\\2 EGFR if Non- 16 Estimated Glomerular [place] (test mL/min/1.73m\\S\\2 Filtration Rate (eGFR) code=EGFRNA) Reference [...] chronic kidney failure. ER 8CBC WITH AUTO [id number] 00:58:00 Test Item Value Reference Range Comments [...] IG% (test code=IG%) 0.5 % 0.0-0.4 ER [id number] 13:31:00 Test Item Value Reference Range Comments [...] mL/min/1.73m\\S\\2 EGFR if Non- 11 Estimated Glomerular [place] (test mL/min/1.73m\\S\\2 Filtration Rate (eGFR) code=EGFRNA) Reference [...] of chronic kidney failure. CBC WITH AUTO [id number] 13:08:00 Test Item Value Reference Range Comments [...] 0 /100WBC 0-2 code=NRBC_AUTO) HEP B SURFACE [id number] 15:00:00 Test Item Value Reference Range Comments [...] to HBV infection. HEPATITIS B CORE AB, [id number] 10:03:00 Test Item Value Reference Range Comments HEPATITIS B CORE AB TOTAL (test code=HEPBCORE) 2.97 Negative [id number] 09:16:00 Test Item Value Reference Range Comments [...] mL/min/1.73m\\S\\2 EGFR if Non- 13 Estimated Glomerular [place] (test mL/min/1.73m\\S\\2 Filtration Rate (eGFR) code=EGFRNA) Reference [...] management of chronic kidney failure. ERYTHROCYTE SED [id number] 09:16:00 Test Item Value Reference Range Comments [...] 50-999 years old=0-25 mm/hr CBC WITH AUTO [id number] 08:46:00 Test Item Value Reference Range Comments [...] IG% (test code=IG%) 0.7 % 0.0-0.4 LIPASE, [id number] 18:05:00 Test Item Value Reference Range Comments Lipase (test code=LIPA) 42 U/L 8-223 AMYLASE, [id number] 18:05:00 Test Item Value Reference Range Comments Amylase (test code=AMYL) 53 U/L 12-103 C-REACTIVE [id number] 17:24:00 Test Item Value Reference Range Comments C REACTIVE PROTEIN (test code=CRP) 0.7 ng/ml 0.0-0.9 [id number] 09:07:00 Test Item Value Reference Range Comments [...] mL/min/1.73m\\S\\2 EGFR if Non- 10 Estimated Glomerular [place] (test mL/min/1.73m\\S\\2 Filtration Rate (eGFR) code=EGFRNA) Reference [...] of chronic kidney failure. CBC WITH AUTO [id number] 08:35:00 Test Item Value Reference Range Comments [...] % 0.0-0.4 CBC AUTO diffCBC WITH AUTO [id number] 05:58:00 Test Item Value Reference Range Comments [...] 1.0-3.0 IG% (test code=IG%) 0.8 % 0.0-0.4 [id number] 05:41:00 Test Item Value Reference Range Comments [...] mL/min/1.73m\\S\\2 EGFR if Non- 12 Estimated Glomerular [place] (test mL/min/1.73m\\S\\2 Filtration Rate (eGFR) code=EGFRNA) Reference Intervals Decision Points for 18 years and older and average body mass: >=60 Does not exclude kidney disease. 30 - 59 Suggests moderate chronic kidney disease and indicates the need for further investigation including assessment of proteinuria and cardiovascular factors. < 30 Usually indicates a need for referral for assessment and management of chronic kidney failure. [id number] 05:41:00 Test Item Value Reference Range Comments Magnesium (test code=MG) 2.0 mg/dl 1.6-2.3 HEP B SURFACE [id number] 08:16:00 Test Item Value Reference Range Comments [...] (test code=HBSAG) Negative (qualifier Negative value) GLYCOSALATED [id number] 01:37:00 Test Item Value Reference Range Comments [...] ARE NOT INTERCHANGEABLE BETWEEN METHODS. 12-06-2006 FREE [id number] 01:14:00 Test Item Value Reference Range Comments Free T4 (test code=FT4) 1.24 ng/dl 0.78-2.19 CORONARY [id number] 00:54:00 Test Item Value Reference Range Comments [...] Average vLDL (test code=VLDL) 29 mg/dl 20-50 [id number] 00:52:00 Test Item Value Reference Range Comments Magnesium (test code=MG) 2.0 mg/dl 1.6-2.3 [id number] 00:52:00 Test Item Value Reference Range Comments [...] mL/min/1.73m\\S\\2 EGFR if Non- 17 Estimated Glomerular [place] (test mL/min/1.73m\\S\\2 Filtration Rate (eGFR) code=EGFRNA) Reference [...]
[2019-12-01] MEDS ORDERED: NA CHLORIDE 0.9% 0 ML ONE (02:13)
--- NOTE | 2019-12-01 02:20 | ER ---
Nurse's Notes [facility] Name: Alysa Mayes Age: 64 yrs Sex: Female : 1955 Arrival Date: 12/01/2019 Time: 01:32 Bed 8 Private MD: Diagnosis: Chest pain, unspecified;Type 1 diabetes mellitus;End stage renal disease-on HD;Hyperkalemia Presentation: 12/01 01:47 Presenting complaint: EMS states: pt was discharged from hospital yesterday with chest aa1 pain and back pain but was not given any prescriptions for pain medication and she is still having pain. Pt c/o CP \T\ back pain 09/07. Reports all tests were normal at that time. Transition of care: patient was not received from another setting of care. Onset of symptoms was November 30, 2019. Risk Assessment: Do you want to hurt yourself or someone else? Patient reports no desire to harm self or others. Initial Sepsis Screen: Does the patient meet any 2 criteria? No. Patient's initial sepsis screen is negative. Does the patient have a suspected source of infection? No. Patient's initial sepsis screen is negative. Care prior to arrival: None. 01:47 Method Of Arrival: EMS: [facility] aa 01:47 Acuity: LESLEE 3 aa1 Historical: - Allergies: 01:51 amlodipine; aa1 01:51 Amoxicillin; aa1 01:51 PENICILLINS; aa1 - Home Meds: 01:51 carvedilol 6.25 mg Oral tab 1 tab 2 times per day [Active]; carvedilol 12.5 mg Oral tab aa1 1 tab 2 times per day [Active]; Eliquis 2.5 mg Oral tab 1 tab 2 times per day [Active]; isosorbide mononitrate 30 mg Oral Tb24 1 tab once daily [Active]; Levemir 100 unit/mL subcutaneous soln [Active]; lisinopril 2.5 mg Oral tab 1 tab once daily [Active]; loratadine 10 mg Oral tab 1 tab once daily [Active]; - PMHx: 01:51 Anemia; CHF; COPD; Depression; Diabetes - IDDM; Dialysis; MWF; Gout; Hyperlipidemia; aa1 Hypertension; Hypothyroidism; pressure ulcers; - PSHx: 01:51 left upper arm fistula; R thigh Fistula (dialysis); aa1 - Immunization history:: Flu vaccine is up to date. - Social history:: Smoking status: Patient/guardian denies using tobacco. - Ebola Screening: : No symptoms or risks identified at this time. - Family history:: not pertinent. Screenin:51 Abuse screen: Denies threats or abuse. Denies injuries from another. Nutritional aa1 screening: No deficits noted. Tuberculosis screening: No symptoms or risk factors identified. Fall Risk None identified. Assessment: 01:51 General: Appears in no apparent distress. comfortable, Behavior is calm, cooperative, aa1 appropriate for age. Pain: Complains of pain in back and chest Pain currently is 10 out of 10 on a pain scale. Quality of pain is described as sharp, Pain began 1 day ago. Is continuous. Neuro: Level of Consciousness is awake, alert, obeys commands, Oriented to person, place, time, situation, Moves all extremities. Speech is normal. Cardiovascular: Reports chest pain, Heart tones S1 S2 present Capillary refill < 3 seconds Clubbing of nail beds is absent Patient's skin is warm and dry. Rhythm is regular. Respiratory: Airway is patent Respiratory effort is even, unlabored, Respiratory pattern is regular, symmetrical. GI: No signs and/or symptoms were reported involving the gastrointestinal system. : No signs and/or symptoms were reported regarding the genitourinary system. EENT: No signs and/or symptoms were reported regarding the EENT system. Derm: Skin is intact, is healthy with good turgor, Skin is pink, warm \T\ dry. Musculoskeletal: Circulation, motion, and sensation intact. Capillary refill < 3 seconds. 02:25 Reassessment: Patient appears in no apparent distress at this time. Patient and/or aa1 family updated on plan of care and expected duration. Pain level reassessed. Patient is alert, oriented x 3, equal unlabored respirations, skin warm/dry/pink. Unable to obtain IV access on pt; charge nurse notified and she will attempt ultrasound IV. 04:00 Reassessment: Patient appears in no apparent distress at this time. Patient and/or aa1 family updated on plan of care and expected duration. Pain level reassessed. Patient is alert, oriented x 3, equal unlabored respirations, skin warm/dry/pink. Pt to be admitted to ER hold. Charge nurse at bedside attempting to get labs and IV access. Vital Signs: 01:47 BP 104 / 51; Pulse 76; Resp 16; Temp 97.0; Pulse Ox 98% on R/A; Weight 83.91 kg; Height aa1 5 ft. 7 in. (170.18 cm); Pain 10/10; 02:22 BP 122 / 71; Pulse 72; Resp 16; Pulse Ox 100% on R/A; aa1 04:00 BP 98 / 53; Pulse 73; Resp 16; Temp 97.2; Pulse Ox 98% on R/A; Pain 8/10; aa1 01:47 Body Mass Index 28.97 (83.91 kg, 170.18 cm) aa1 ED Course: 01:32 Patient arrived in ED. cl3 01:33 Sumit Yeboah MD is Attending Physician. cory 01:39 Allison Guzmán, RN is Primary Nurse. aa1 01:45 EKG done, by ED staff, reviewed by Sumit Yeboah MD. aa1 01:47 Arm band placed on right wrist. Patient placed in an exam room, on a stretcher. aa1 01:49 Triage completed. aa1 01:51 Patient has correct armband on for positive identification. Bed in low position. Call aa1 light in reach. library monitor on. Pulse ox on. NIBP on. Warm blanket given. 02:02 XRAY Chest (1 view) In Process Unspecified. EDMS 02:14 Jose A Madrid MD is Hospitalizing Provider. cory 04:02 No provider procedures requiring assistance completed. Patient admitted, IV remains in aa1 place. 04:24 Initial lab(s) drawn, by md, sent to lab. Inserted saline lock: 20 gauge in right bb antecubital area, using aseptic technique. Blood collected. 07:03 Primary Nurse role handed off by Allison Guzmán, RN bp 07:03 Ken Valle, RN is Primary Nurse. bp Administered Medications: 02:10 Not Given (Duplicate Order): NS 0.9% 1000 ml IV at 125 ml/hr continuous cory 03:52 Drug: Eliquis 2.5 mg Route: PO; aa1 04:52 Follow up: Response: No adverse reaction aa1 04:10 Drug: morphine 2 mg Route: IVP; Site: right upper arm; aa1 05:10 Follow up: Response: No adverse reaction; Pain is decreased aa1 04:10 Drug: Zofran 4 mg Route: IVP; Site: right upper arm; aa1 05:10 Follow up: Response: No adverse reaction aa1 17:23 Not Given (Patient Refused): Kayexalate 45 grams PO once bp Outcome: 02:15 Decision to Hospitalize by Provider. [facility] 04:00 Admitted to ER Hold. Please see [facility] for further documentation. aa1 18:34 Discharged to D/C FROM ER HOLD bp 18:34 Condition: stable bp 18:35 Patient left the ED. bp Signatures: Dispatcher [employer] EDAllison Rolon RN RN aa1 Sumit Yeboah MD MD cha Ballard, Brenda, RN RN Ken Huerta RN RN Cassie No cl3
--- NOTE | 2019-12-01 02:22 | EDPHYS ---
Physician Documentation [facility] [place] Name: Alysa Mayes Age: 64 yrs Sex: Female : 1955 Arrival Date: 12/01/2019 Time: 01:32 Bed 8 Private MD: LUANNE Physician Sumit Yeboah HPI: 12/01 02:11 This 64 yrs old Black Female presents to ER via EMS with complaints of Back Pain, Chest cory Pain. 02:11 The patient presents with pain that is acute, with no known mechanism of injury. The cory symptoms are located in the low back. Onset: The symptoms/episode began/occurred 2 day(s) ago. The pain does not radiate. Associated signs and symptoms: Pertinent positives: chest pain. The problem was sustained from unknown cause. Modifying factors: The patient symptoms are alleviated by nothing, the patient symptoms are aggravated by any movement. Severity of symptoms: At their worst the symptoms were mild, moderate, in the emergency department the symptoms have resolved, and did so while in waiting room. The patient has experienced similar episodes in the past. Historical: - Allergies: 01:51 amlodipine; aa1 01:51 Amoxicillin; aa1 01:51 PENICILLINS; aa1 - Home Meds: 01:51 carvedilol 6.25 mg Oral tab 1 tab 2 times per day [Active]; carvedilol 12.5 mg Oral tab aa1 1 tab 2 times per day [Active]; Eliquis 2.5 mg Oral tab 1 tab 2 times per day [Active]; isosorbide mononitrate 30 mg Oral Tb24 1 tab once daily [Active]; Levemir 100 unit/mL subcutaneous soln [Active]; lisinopril 2.5 mg Oral tab 1 tab once daily [Active]; loratadine 10 mg Oral tab 1 tab once daily [Active]; - PMHx: 01:51 Anemia; CHF; COPD; Depression; Diabetes - IDDM; Dialysis; MWF; Gout; Hyperlipidemia; aa1 Hypertension; Hypothyroidism; pressure ulcers; - PSHx: 01:51 left upper arm fistula; R thigh Fistula (dialysis); aa1 - Immunization history:: Flu vaccine is up to date. - Social history:: Smoking status: Patient/guardian denies using tobacco. - Ebola Screening: : No symptoms or risks identified at this time. - Family history:: not pertinent. ROS: 02:11 Constitutional: Negative for fever, chills, and weight loss, Eyes: Negative for injury, cory pain, redness, and discharge, ENT: Negative for injury, pain, and discharge, Neck: Negative for injury, pain, and swelling, Respiratory: Negative for shortness of breath, cough, wheezing, and pleuritic chest pain, Abdomen/GI: Negative for abdominal pain, nausea, vomiting, diarrhea, and constipation, Back: Negative for injury and pain, : Negative for injury, bleeding, discharge, and swelling, MS/Extremity: Negative for injury and deformity, Skin: Negative for injury, rash, and discoloration, Neuro: Negative for headache, weakness, numbness, tingling, and seizure, Psych: Negative for depression, anxiety, suicide ideation, homicidal ideation, and hallucinations, Allergy/Immunology: Negative for hives, rash, and allergies, Endocrine: Negative for neck swelling, polydipsia, polyuria, polyphagia, and marked weight changes, Hematologic/Lymphatic: Negative for swollen nodes, abnormal bleeding, and unusual bruising. 02:11 Cardiovascular: Positive for chest pain, edema, orthopnea, palpitations, paroxysmal nocturnal dyspnea. Exam: 02:11 Constitutional: This is a well developed, well nourished patient who is awake, alert, cory and in no acute distress. Head/Face: Normocephalic, atraumatic. Eyes: Pupils equal round and reactive to light, extra-ocular motions intact. Lids and lashes normal. Conjunctiva and sclera are non-icteric and not injected. Cornea within normal limits. Periorbital areas with no swelling, redness, or edema. ENT: Nares patent. No nasal discharge, no septal abnormalities noted. Tympanic membranes are normal and external auditory canals are clear. Oropharynx with no redness, swelling, or masses, exudates, or evidence of obstruction, uvula midline. Mucous membranes moist. Neck: Trachea midline, no thyromegaly or masses palpated, and no cervical lymphadenopathy. Supple, full range of motion without nuchal rigidity, or vertebral point tenderness. No Meningismus. Chest/axilla: Normal chest wall appearance and motion. Nontender with no deformity. No lesions are appreciated. Cardiovascular: Regular rate and rhythm with a normal S1 and S2. No gallops, murmurs, or rubs. Normal PMI, no JVD. No pulse deficits. Respiratory: Lungs have equal breath sounds bilaterally, clear to auscultation and percussion. No rales, rhonchi or wheezes noted. No increased work of breathing, no retractions or nasal flaring. Abdomen/GI: Soft, non-tender, with normal bowel sounds. No distension or tympany. No guarding or rebound. No evidence of tenderness throughout. Back: No spinal tenderness. No costovertebral tenderness. Full range of motion. Female : Normal external genitalia. Skin: Warm, dry with normal turgor. Normal color with no rashes, no lesions, and no evidence of cellulitis. MS/ Extremity: Pulses equal, no cyanosis. Neurovascular intact. Full, normal range of motion. Neuro: Awake and alert, GCS 15, oriented to person, place, time, and situation. Cranial nerves II-XII grossly intact. Motor strength 5/5 in all extremities. Sensory grossly intact. Cerebellar exam normal. Normal gait. Psych: Awake, alert, with orientation to person, place and time. Behavior, mood, and affect are within normal limits. Vital Signs: 01:47 BP 104 / 51; Pulse 76; Resp 16; Temp 97.0; Pulse Ox 98% on R/A; Weight 83.91 kg; Height aa1 5 ft. 7 in. (170.18 cm); Pain 10/10; 02:22 BP 122 / 71; Pulse 72; Resp 16; Pulse Ox 100% on R/A; aa1 04:00 BP 98 / 53; Pulse 73; Resp 16; Temp 97.2; Pulse Ox 98% on R/A; Pain 8/10; aa1 01:47 Body Mass Index 28.97 (83.91 kg, 170.18 cm) [facility] MDM: 01:34 Patient medically screened. [facility] 07:21 Data reviewed: vital signs, nurses notes, lab test result(s), EKG, radiologic studies, [facility] plain films. 12/01 01:35 Order name: Basic Metabolic Panel; Complete Time: 07:20 [facility] 12/01 01:35 Order name: CBC with Diff; Complete Time: 04:38 [facility] 12/01 01:35 Order name: LFT's; Complete Time: 07:20 [facility] 12/01 01:35 Order name: Magnesium; Complete Time: 07:20 [facility] 12/01 01:35 Order name: NT PRO-BNP; Complete Time: 07:20 cory 12/01 01:35 Order name: PT-INR; Complete Time: 07:20 cory 12/01 01:35 Order name: Troponin (emerg Dept Use Only); Complete Time: 07:20 cory 12/01 01:35 Order name: XRAY Chest (1 view) cory 12/01 01:35 Order name: Urine Culture [facility] 12/01 01:35 Order name: Lipase; Complete Time: 07:20 cory 12/01 04:54 Order name: CBC with Automated Diff EDMS 12/01 04:54 Order name: CBC with Automated Diff EDMS 12/01 04:54 Order name: Comprehensive Metabolic Panel EDMS 12/01 04:54 Order name: Comprehensive Metabolic Panel EDMS 12/01 01:35 Order name: EKG; Complete Time: 01:38 cory 12/01 01:35 Order name: Cardiac monitoring; Complete Time: 01:54 cory 12/01 01:35 Order name: EKG - Nurse/Tech; Complete Time: 01:55 cory 12/01 01:35 Order name: IV Saline Lock; Complete Time: 04:24 cory 12/01 01:35 Order name: Labs collected and sent; Complete Time: 04:24 cory 12/01 01:35 Order name: O2 Per Protocol; Complete Time: 01:55 cory 12/01 01:35 Order name: O2 Sat Monitoring; Complete Time: 01:55 cory 12/01 04:54 Order name: CONS Physician Consult EDMD 12/01 04:54 Order name: Renal EDMS Administered Medications: 02:10 Not Given (Duplicate Order): NS 0.9% 1000 ml IV at 125 ml/hr continuous cory 03:52 Drug: Eliquis 2.5 mg Route: PO; aa1 04:52 Follow up: Response: No adverse reaction aa1 04:10 Drug: morphine 2 mg Route: IVP; Site: right upper arm; aa1 05:10 Follow up: Response: No adverse reaction; Pain is decreased aa1 04:10 Drug: Zofran 4 mg Route: IVP; Site: right upper arm; aa1 05:10 Follow up: Response: No adverse reaction aa1 17:23 Not Given (Patient Refused): Kayexalate 45 grams PO once bp Disposition: 12/01/19 02:15 Hospitalization ordered by Jose A Madrid for Inpatient Admission. Preliminary diagnosis are Chest pain, unspecified, Type 1 diabetes mellitus, End stage renal disease - on HD, Hyperkalemia. - Bed requested for [facility] ER HOLD. - Status is Inpatient Admission. bp - Condition is Fair. - Problem is new. - Symptoms have improved. UTI on Admission? No Signatures: Dispatcher [employer] EDMS Shanna Becerra RN RN Allison Guzmán RN RN aa1 Sumit Yeboah MD MD cha Williams, Irene, RN RN Ken Valle RN RN bp Corrections: (The following items were deleted from the chart) 02:57 02:15 Hospitalization Ordered by Jose A Madrid MD for Inpatient Admission. Preliminary diagnosis is Chest pain, unspecified; Type 1 diabetes mellitus; End stage renal disease - on HD. Bed requested for Telemetry/MedSurg (Inpatient). Status is Inpatient Admission. Condition is Fair. Problem is new. Symptoms have improved. UTI on Admission? No. cory 06:22 02:57 12/01/2019 02:15 Hospitalization Ordered by Jose A Madrid MD for Inpatient Admission. Preliminary diagnosis is Chest pain, unspecified; Type 1 diabetes mellitus; End stage renal disease - on HD. Bed requested for [facility] ER HOLD. Status is Inpatient Admission. Condition is Fair. Problem is new. Symptoms have improved. UTI on Admission? No. perla 07:22 06:22 12/01/2019 02:15 Hospitalization Ordered by Jose A Madrid MD for Inpatient cory Admission. Preliminary diagnosis is Chest pain, unspecified; Type 1 diabetes mellitus; End stage renal disease - on HD. Bed requested for Telemetry/MedSurg (Inpatient). Status is Inpatient Admission. Condition is Fair. Problem is new. Symptoms have improved. UTI on Admission? No. perla 07:55 07:22 12/01/2019 02:15 Hospitalization Ordered by Jose A Madrid MD for Inpatient iw Admission. Preliminary diagnosis is Chest pain, unspecified; Type 1 diabetes mellitus; End stage renal disease - on HD; Hyperkalemia. Bed requested for Telemetry/MedSurg (Inpatient). Status is Inpatient Admission. Condition is Fair. Problem is new. Symptoms have improved. UTI on Admission? No. cory 07:57 07:55 12/01/2019 02:15 Hospitalization Ordered by Jose A Madrid MD for Inpatient iw Admission. Preliminary diagnosis is Chest pain, unspecified; Type 1 diabetes mellitus; End stage renal disease - on HD; Hyperkalemia. Bed requested for Telemetry/MedSurg (Inpatient). Status is Inpatient Admission. Condition is Fair. Problem is new. Symptoms have improved. UTI on Admission? No. iw 18:35 07:57 12/01/2019 02:15 Hospitalization Ordered by Jose A Madrid MD for Inpatient bp Admission. Preliminary diagnosis is Chest pain, unspecified; Type 1 diabetes mellitus; End stage renal disease - on HD; Hyperkalemia. Bed requested for [facility] ER HOLD. Status is Inpatient Admission. Condition is Fair. Problem is new. Symptoms have improved. UTI on Admission? No. iw
[2019-12-01] MEDS ORDERED: APIXABAN 2.5 MG TABLET ONE (03:45)
[2019-12-01] MEDS ORDERED: MORPHINE 2 MG/ML SYR ONE (03:57)
[2019-12-01] MEDS ORDERED: ONDANSETRON 4 MG/2 ML VIAL ONE (03:57)
[2019-12-01 04:26] LABS: Basophils % 0.9 % (0-1.3); Hematocrit 38.7 % (36.0-45.0); Lymphocytes % 9.6 % (15.3-44.8); MPV 9.9 fL (7.6-11.3); RBC Red Blood Cell Count 3.98 M/uL (3.86-4.86)
[2019-12-01 04:37] LABS: Protime INR 1.5
--- NOTE | 2019-12-01 04:43 | P.HP ---
Certification for Inpatient Patient admitted to: Inpatient With expected LOS: >2 Midnights Patient will require the following post-hospital care: None Practitioner: I am a practitioner with admitting privileges, knowledge of patient current condition, hospital course, and medical plan of care. Services: Services provided to patient in accordance with Admission requirements found in Title 42 Section 412.3 of the Code of Federal Regulations Patient History Date of Service: 12/01/19 Reason for admission: Fluid overload; chest discomfort History of Present Illness: Patient is a 64-year-old female who presents to the hospital with fluid overload. Patient is on hemodialysis but has missed for the last week. She came here Wednesday and was supposed to be hemodialyzed. Unfortunately, this did not happen. Patient was discharged home after troponins were negative. Patient presents with similar complaints. The scheduled for hemodialysis today but she does not feel like she could wait at home any longer. She does have some mild right-sided swelling. At this time, patient will be admitted for hemodialysis. Once this is done hopefully her symptoms have resolved and she should be able to go home. Allergies amoxicillin [Amoxicillin] Allergy (Verified 06/08/18 19:55) unknown Penicillins Adverse Reaction (Mild, Verified 06/08/18 19:55) itching rash amlodipine Adverse Reaction (Verified 06/08/18 19:55) Itching/Hives/Rash Home Medications: Atorvastatin Calcium 40 mg PO BEDTIME 02/17/18 Insulin Detemir [Levemir*] 8 unit SQ BID 02/17/18 Levothyroxine [Synthroid*] 50 mcg PO [id number] 02/17/18 Pregabalin [Lyrica*] 150 mg PO BID 06/08/18 Hydrocodone Bit/Acetaminophen [[place] 7.5-325 Tablet] 1 each PO Q6H PRN 11/20/18 Nepafenac [Ilevro] 1 drop OP DAILY PRN 11/20/18 Zinc Sulfate [Zinc Sulfate*] 220 mg PO DAILY 11/20/18 Apixaban [Eliquis *] 2.5 mg PO BID 03/15/19 [place] Packet 1 packet PO DAILY 03/15/19 Ascorbic Acid [Vitamin C] 500 mg PO DAILY 03/15/19 Aspirin 81 mg PO DAILY 03/15/19 Calcium Carbonate [Tums] 2 tab.chew PO TIDWM 03/15/19 Cinacalcet HCl [Sensipar*] 2 tab PO DAILY 03/15/19 Folic Acid/Vit B Complex and C [Linda-Ryan Tablet] 1 tab PO DAILY 03/15/19 Medihoney [Medihoney Woundcare Gel*] 1 appl TD M,W,F 03/15/19 Metoprolol Succinate [Toprol Xl*] 50 mg PO DAILY 03/15/19 Vancomycin/0.9 % Sod Chloride [Vancomycin 1 G/100Ml-0.9% NaCl] 1 gm IV AFTER EACH DIALYSIS 14 Days plast..bag 04/02/19 - Past Medical/Surgical History Diabetic: Yes -: HTN -: COPD -: Diabetes mellitus type 2 -: Anemia of chronic disease -: ESRD, poor compliance with dialysis -: Depression with anxiety -: CHF, diastolic dysfunction -: Gout -: COPD -: Chronic left pressure ulcer heel -: Hypothyroidism -: Charcot arthropathy -: Right eye December 25 2014-cataract -: Left eye January 15 2015-cataract -: right groin fistula -: Left chest HD access Psychosocial/ Personal History: Single, Children-2, Work-none - Family History Father Medical History: Heart disease, Cancer Notes: prostate cancer Mother Medical History: Heart disease, Hypertension, Diabetes, Cancer Notes: breast CA - Social History Alcohol use: No CD- Drugs: No Caffeine use: No Review of Systems 10-point ROS is otherwise unremarkable Physical Examination - Vital Signs Temperature: 99 F Blood Pressure: 145/69 Pulse: 99 Respirations: 18 Pulse Ox (%): 96 - Physical Exam General: Alert, In no apparent distress, Oriented x3 HEENT: Atraumatic, PERRLA, Mucous membr. moist/pink, EOMI, Sclerae nonicteric Neck: Supple, 2+ carotid pulse no bruit, No LAD, Without JVD or thyroid abnormality Respiratory: Clear to auscultation bilaterally, Normal air movement Cardiovascular: Regular rate/rhythm, Normal S1 S2, No murmurs Gastrointestinal: Normal bowel sounds, Soft and benign, Non-distended, No tenderness Musculoskeletal: No clubbing, No swelling, No tenderness Integumentary: No rashes Neurological: Normal speech, Normal tone, Sensation intact, Cranial nerves 3-12 intact, Normal affect, Abnormal gait, Abnormal strength Lymphatics: No axilla or inguinal lymphadenopathy - Studies Laboratory Data (last 24 hrs) 12/01/19 04:13: WBC 10.8 D, Hgb 12.2, Hct 38.7, Plt Count 120 L Assessment & Plan - Problems (Diagnosis) (1) Chronic obstructive pulmonary disease with (acute) exacerbation Onset Date: 05/24/17 Current Visit: No Status: Acute (2) Costochondral chest pain Current Visit: No Status: Acute (3) Elevated liver enzymes Current Visit: No Status: Acute (4) Anemia Onset Date: 06/14/17 Current Visit: No Status: Chronic Qualifiers: Anemia type: iron deficiency (5) Depression Onset Date: 03/22/17 Current Visit: No Status: Chronic Qualifiers: (6) Diabetes mellitus Onset Date: 03/23/16 Current Visit: No Status: Chronic Qualifiers: (7) ESRD (end stage renal disease) Onset Date: 07/22/17 Current Visit: No Status: Chronic (8) Hypertensive disorder, systemic arterial Onset Date: 03/23/16 Current Visit: No Status: Chronic (9) Hypothyroidism Onset Date: 12/14/16 Current Visit: No Status: Chronic - Plan Plan: 1. Nephrology consultation for hemodialysis 2. Hep-Lock IV 3. Serial troponins and EKG 4. Once patient's hemodialyzed patient should be stable for discharge. Patient refusing retirement facility placement at this time. 5. Strict blood pressure and blood sugar control 6. Monitor electrolytes closely 7. GI and DVT prophylaxis Discharge Plan: Home Plan to discharge in: 24 Hours - Advance Directives Does patient have a Living Will: No Does patient have a Durable POA for Healthcare: No - Code Status/Comfort Care Code Status Assessed: Yes Code Status: Full Code Critical Care: No Time Spent Managing PTS Care (In Minutes): 50
[2019-12-01] MEDS ORDERED: ACETAMINOPHEN 500 MG TAB PO PRN (04:47)
[2019-12-01] MEDS ORDERED: ONDANSETRON 4 MG/2 ML VIAL IV PRN (04:47)
[2019-12-01 04:57] LABS: Albumin 3.5 g/dL (3.4-5.0); Bilirubin Direct 0.5 mg/dL (0-0.2); Bilirubin Total 0.8 mg/dL (0.2-1.0); Magnesium 2.8 mg/dL (1.8-2.4); Protein, Total 7.4 g/dL (6.4-8.2); Troponin (Emerg Dept Use Only) 0.02 ng/mL (0.0-0.045)
[2019-12-01] MEDS ORDERED: NACHLORIDE 0.45% 1,000 ML IV SCH (05:00)
[2019-12-01 05:06] LABS: Potassium 5.7 mmol/L (3.5-5.1)
[2019-12-01 05:18] VITALS: BMI 29.0
[2019-12-01] MEDS ORDERED: NACHLORIDE 0.45% 1,000 ML IV ONE (05:31)
--- NOTE | 2019-12-01 08:02 | P.DS ---
Discharge Date: 12/01/19 Disposition: ROUTINE DISCHARGE Discharge Condition: GOOD Reason for Admission: Fluid overload; chest discomfort Consultations: AUTISM SPECIALIST - Problems (1) Chronic obstructive pulmonary disease with (acute) exacerbation Onset Date: 05/24/17 Current Visit: No Status: Acute (2) Costochondral chest pain Current Visit: No Status: Acute (3) Elevated liver enzymes Current Visit: No Status: Acute (4) Anemia Onset Date: 06/14/17 Current Visit: No Status: Chronic Qualifiers: Anemia type: iron deficiency (5) Depression Onset Date: 03/22/17 Current Visit: No Status: Chronic Qualifiers: (6) Diabetes mellitus Onset Date: 03/23/16 Current Visit: No Status: Chronic Qualifiers: (7) ESRD (end stage renal disease) Onset Date: 07/22/17 Current Visit: No Status: Chronic (8) Hypertensive disorder, systemic arterial Onset Date: 03/23/16 Current Visit: No Status: Chronic (9) Hypothyroidism Onset Date: 12/14/16 Current Visit: No Status: Chronic Brief History of Present Illness: Patient is a 64-year-old female who presents to the hospital with fluid overload. Patient is on hemodialysis but has missed for the last week. She came here Wednesday and was supposed to be hemodialyzed. Unfortunately, this did not happen. Patient was discharged home after troponins were negative. Patient presents with similar complaints. The scheduled for hemodialysis today but she does not feel like she could wait at home any longer. She does have some mild right-sided swelling. At this time, patient will be admitted for hemodialysis. Once this is done hopefully her symptoms have resolved and she should be able to go home. Hospital Course: Patient was hemodialyzed. Clinically doing better. Stable for discharge home. Vital Signs/Physical Exam: Temp Pulse Resp BP Pulse Ox 99 F 99 H 18 145/69 H 96 12/01/19 04:46 12/01/19 04:46 12/01/19 04:46 12/01/19 04:46 12/01/19 04:46 General: Alert, In no apparent distress, Oriented x3 Laboratory Data at Discharge: WBC 10.8 K/uL (4.3-10.9) D 12/01/19 04:13 Hgb 12.2 g/dL (12.0-15.0) 12/01/19 04:13 Hct 38.7 % (36.0-45.0) 12/01/19 04:13 Plt Count 120 K/uL (152-406) L 12/01/19 04:13 PT 17.4 SECONDS (9.5-12.5) H 12/01/19 04:13 INR 1.50 12/01/19 04:13 Sodium 136 mmol/L (136-145) 12/01/19 04:13 Potassium 5.7 mmol/L (3.5-5.1) H* 12/01/19 04:13 BUN 77 mg/dL (7-18) H 12/01/19 04:13 Creatinine 14.20 mg/dL (0.55-1.3) H* D 12/01/19 04:13 Glucose 99 mg/dL (74-106) 12/01/19 04:13 Magnesium 2.8 mg/dL (1.8-2.4) H 12/01/19 04:13 Total Bilirubin 0.8 mg/dL (0.2-1.0) 12/01/19 04:13 AST 40 U/L (15-37) H 12/01/19 04:13 ALT 36 U/L (12-78) 12/01/19 04:13 Alkaline Phosphatase 205 U/L (45-117) H 12/01/19 04:13 Lipase 34 U/L (73-393) L 12/01/19 04:13 Home Medications: Atorvastatin Calcium 40 mg PO BEDTIME 02/17/18 Insulin Detemir [Levemir*] 8 unit SQ BID 02/17/18 Levothyroxine [Synthroid*] 50 mcg PO [id number] 02/17/18 Pregabalin [Lyrica*] 150 mg PO BID 06/08/18 Hydrocodone Bit/Acetaminophen [[place] 7.5-325 Tablet] 1 each PO Q6H PRN 11/20/18 Nepafenac [Ilevro] 1 drop OP DAILY PRN 11/20/18 Zinc Sulfate [Zinc Sulfate*] 220 mg PO DAILY 11/20/18 Apixaban [Eliquis *] 2.5 mg PO BID 03/15/19 Arginald Packet 1 packet PO DAILY 03/15/19 Ascorbic Acid [Vitamin C] 500 mg PO DAILY 03/15/19 Aspirin 81 mg PO DAILY 03/15/19 Calcium Carbonate [Tums] 2 tab.chew PO TIDWM 03/15/19 Cinacalcet HCl [Sensipar*] 2 tab PO DAILY 03/15/19 Folic Acid/Vit B Complex and C [Linda-Ryan Tablet] 1 tab PO DAILY 03/15/19 Medihoney [Medihoney Woundcare Gel*] 1 appl TD M,W,F 03/15/19 Metoprolol Succinate [Toprol Xl*] 50 mg PO DAILY 03/15/19 Vancomycin/0.9 % Sod Chloride [Vancomycin 1 G/100Ml-0.9% NaCl] 1 gm IV AFTER EACH DIALYSIS 14 Days plast..bag 04/02/19 Patient Discharge Instructions: OK TO DC IV AND DC HOME. FOLLOW-UP WITH PRIMARY CARE PROVIDER IN 1-2 WEEKS. FOLLOW-UP WITH NEPHROLOGY IN 1-2 WEEKS. RETURN TO THE ER IF symptoms worsen. CALL or TEXT DR. PALACIOS AT [phone] IF ANY QUESTIONS REGARDING HOSPITAL STAY. PLEASE CALL THE FLOOR AT [phone] IF ANY MEDICATION OR NURSING QUESTIONS. Diet: Renal Activity: Fall precautions Time spent managing pt's care (in minutes): 45
[2019-12-01] MEDS ORDERED: ENOXAPARIN 30 MG/0.3 ML SQ SCH (09:00)
[2019-12-01] MEDS ORDERED: ASPIRIN EC 81 MG TAB PO SCH (09:00)
[2019-12-01] MEDS: FUROSEMIDE 40 MG/4 ML VIAL IV SCH ×2 (09:00→17:00)
[2019-12-01] MEDS ORDERED: ASPIRIN EC 81 MG TAB PO ONE (09:07)
[2019-12-01] MEDS ORDERED: ENOXAPARIN 30 MG/0.3 ML SQ ONE (09:08)
[2019-12-01] MEDS ORDERED: FUROSEMIDE 100 MG/10 ML VIAL IV ONE (09:08)
--- NOTE | 2019-12-01 09:32 | RAD REPORT ---
EXAM DESCRIPTION: RAD - Chest Single View - 12/01/2019 1:59 am CLINICAL HISTORY: Abdominal pain, abdominal distention COMPARISON: November TECHNIQUE: AP portable chest image was obtained [id number] hours . FINDINGS: Lung volumes remain low. No new or progressive lung parenchymal process. No significant fa ilure or volume overload. Dialysis catheter is in place. Heart and vasculature are normal. No measura ble pleural effusion and no pneumothorax. No acute bony abnormality seen. No acute aortic findings neumann spected. IMPRESSION: No acute cardiopulmonary process. No identifiable change from prior day imaging.
[2019-12-01] MEDS ORDERED: WATER FOR INJ,STERILE 10 ML IV ONE (13:00)
[2019-12-01] MEDS ORDERED: ALTEPLASE 2 MG/VIAL IV SCH (13:00)
--- NOTE | 2019-12-01 13:49 | EKG ---
Test Date: 2019-12-01 Test Time: 01:47:04 Horticultural Specialty Grower Inside: PALLAVI MEASUREMENT RESULTS: Intervals: Rate: 84 MT: 168 QRSD: 154 QT: 478 QTc: 564 [place]: P: 50 MT: 168 QRS: 34 T: 221 INTERPRETIVE STATEMENTS: Sinus rhythm with occasional premature ventricular complexes Left bundle branch block Abnormal ECG Compared to ECG 11/30/2019 04:34:39 Ventricular premature complex(es) now present Electronically Signed On 12-01-19 13:47:00 BURGLAR ALARM ASSEMBLER by Nithin Lloyd
[2019-12-01 18:27] VITALS: BP 102/64; TEMP 97.5
[2019-12-01 19:41] VITALS: O2SAT 98
== END 2019-12-01 18:33 | disposition home or self-care (01) ==
LOC: ER 01:30 → ERHOLD 04:58
PROVIDERS: ADMIT Hospitalist; ATTEND Hospitalist
DX: I13.2 Hypertensive heart and chronic kidney disease with heart failure and with stage 5 chronic kidney disease, or end stage renal disease (principal); I50.32 Chronic diastolic (congestive) heart failure; N18.6 End stage renal disease; E11.22 Type 2 diabetes mellitus with diabetic chronic kidney disease; Z99.2 Dependence on renal dialysis; Z91.15 Patient's noncompliance with renal dialysis; E03.9 Hypothyroidism, unspecified; J44.9 Chronic obstructive pulmonary disease, unspecified; F32.9 Major depressive disorder, single episode, unspecified; Z88.0 Allergy status to penicillin
CPT/HCPCS: 93005; 85025; 80048; 36415; 83735; 85610; 80076; 84484; 83690; 83880; 71045; 96375; 96374; 99285; J1650; J2997; J2270; J2405; G0378 ×2; J7030